=== PATIENT | female | born 1955 | race Hispanic/Latino ===

== ENCOUNTER 2017-10-25 06:55 | Inpatient (IN) | payer OTHER ==
--- OUTSIDE RECORDS SUMMARY | 2017-10-25 06:58 | XMS REPORT | Clinical Summary ---
:1955 Author Organization [facility] Address [address] [place] [address] Care Team Providers Name Role Phone Asked, No Pcp Primary Care Provider Unavailable Allergies Active Allergy Reactions Severity Noted Date Comments No Known Drug Allergies 02/25/2016 Current Medications Prescription Sig. Disp. Refills Start End Date Status Date amLODIPine Take 10 mg by Active (NORVASC) 10 MG mouth daily. tablet mycophenolate Take 500 mg by Active (CELLCEPT) 500 mg mouth 2 (two) tablet times a day. simvastatin Take 20 mg by Active (ZOCOR) 20 MG mouth nightly. tablet tacrolimus Take 1 mg by mouth Active (PROGRAF) 1 MG every morning. capsule tacrolimus Take 2 mg by mouth Active (PROGRAF) 1 MG every evening. capsule gabapentin Take 1 capsule by 270 capsule 10 Active (NEURONTIN) 100 mg mouth 3 times 7 capsule daily clonIDINE Take 1 tablet (0.1 270 tablet 3 12/01/19 Active (CATAPRES) 0.1 MG mg total) by mouth 7 18 tablet 3 (three) times a day. losartan (COZAAR) Take 1 tablet (100 90 tablet 3 Active 100 MG mg total) by mouth 7 tabletIndications: daily. Type 2 diabetes mellitus with chronic kidney disease on chronic dialysis, with long-term current use of insulin, Kidney transplant recipient, Other diabetic neurological complication associated with type 2 diabetes mellitus, Proliferative diabetic retinopathy associated with type 2 diabetes mellitus, macular edema presence unspecified, Essential (primary) hypertension, Obesity, unspecified, Osteopenia, Vitamin D deficiency pen needle, 5 Devices daily. 150 each 11 01/06/20 Active diabetic 31 gauge 7 18 x 5/16" needleIndications: Type 2 diabetes mellitus with chronic kidney disease on chronic dialysis, with long-term current use of insulin, Kidney transplant recipient, Other diabetic neurological complication associated with type 2 diabetes mellitus, Proliferative diabetic retinopathy associated with type 2 diabetes mellitus, macular edema presence unspecified, Essential (primary) hypertension, Obesity, unspecified, Osteopenia, Vitamin D deficiency insulin lispro Inject 8 units 15 mL 5 Active (HumaLOG) 100 with breakfast and 7 unit/mL 12 units with injectionIndicatio lunch and dinner. ns: Type 2 Additional per diabetes mellitus sliding scale. with chronic kidney disease on chronic dialysis, with long-term current use of insulin omeprazole Take 1 capsule (40 90 capsule 3 01/13/20 Active (PriLOSEC) 40 MG mg total) by mouth 7 18 capsule daily. insulin NPH human 28 units AM 3 15 mL 10 Active recomb (HumuLIN N units PM 7 KwikPen) 100 unit/mL (3 mL) predniSONE Take 1 tablet (5 30 tablet 05/27/20 Active (DELTASONE) 5 mg mg total) by mouth 7 18 tablet daily. calcitriol Take 2 capsules 60 capsule 06/13/20 Active (ROCALTROL) 0.25 (0.5 mcg total) by 7 18 MCG capsule mouth daily. ONETOUCH VERIO USE TO TEST 5-6 600 strip Active strip test TIMES A DAY. 8 stripsIndications: Type 2 diabetes mellitus with chronic kidney disease on chronic dialysis, with long-term current use of insulin, Diabetic polyneuropathy associated with type 2 diabetes mellitus, Proliferative diabetic retinopathy associated with type 2 diabetes mellitus, Kidney transplant recipient ONETOUCH DELICA USE TO TEST 6 600 each Active LANCETS 33 gauge TIMES PER DAY 8 miscIndications: Type 2 diabetes mellitus with chronic kidney disease on chronic dialysis, with long-term current use of insulin, Diabetic polyneuropathy associated with type 2 diabetes mellitus, Proliferative diabetic retinopathy associated with type 2 diabetes mellitus, Kidney transplant recipient linagliptin Take 1 tablet (5 30 tablet 6 Active (TRADJENTA) 5 mg mg total) by mouth 8 tablet daily. tacrolimus Take 1 capsule 30 capsule 09/15/19 Active (PROGRAF) 0.5 MG (0.5 mg total) by 8 19 capsule mouth daily. Total Daily Dose: 1.5mg each morning, 2mg each evening alendronate Take 70 mg by 09/14/19 Discontinued (FOSAMAX) 70 MG mouth every 7 18 tablet days. Mondays. Take in the morning with a full glass of water, on an empty stomach, and do not take anything else by mouth or lie down for the next 30 min. clonIDINE Take 0.1 mg by 12/01/19 Discontinued (CATAPRES) 0.1 MG mouth 3 (three) 17 tablet times a day. gabapentin Take 100 mg by 11/17/19 Discontinued (NEURONTIN) 100 MG mouth 3 (three) 17 capsule times a day. insulin NPH Inject 8 Units 01/06/20 Discontinued (HumuLIN-N) 100 under the skin 17 unit/mL injection daily before breakfast. omeprazole Take 40 mg by 01/13/20 Discontinued (PriLOSEC) 40 MG mouth daily. 17 capsule predniSONE Take 5 mg by mouth 05/27/20 Discontinued (DELTASONE) 5 mg daily. 17 tablet insulin NPH Inject 4 Units 01/06/20 Discontinued (HumuLIN-N) 100 under the skin 17 unit/mL injection daily before dinner. calcitriol Take 0.25 mcg by 06/13/20 Discontinued (ROCALTROL) 0.25 mouth daily. 17 MCG capsule losartan (COZAAR) Take 50 mg by 01/06/20 Discontinued 50 MG tablet mouth daily. 17 blood sugar Patient is testing 600 strip 3 08/23/19 Discontinued diagnostic strips 5-6 times a day. 7 18 strip test stripsIndications: Type 2 diabetes mellitus with chronic kidney disease on chronic dialysis, with long-term current use of insulin, Diabetic polyneuropathy associated with type 2 diabetes mellitus, Proliferative diabetic retinopathy associated with type 2 diabetes mellitus, macular edema presence unspecified, Kidney transplant recipient lancets 33 gauge 1 Units 6 (six) 600 each 3 08/23/19 Discontinued miscIndications: times a day. 7 18 Type 2 diabetes mellitus with chronic kidney disease on chronic dialysis, with long-term current use of insulin, Diabetic polyneuropathy associated with type 2 diabetes mellitus, Proliferative diabetic retinopathy associated with type 2 diabetes mellitus, macular edema presence unspecified, Kidney transplant recipient HUMULIN N KWIKPEN Inject 20 units 15 mL 10 02/12/20 Discontinued 100 unit/mL (3 mL) subcutaneously 7 17 once every morning insulin ASPART Take 8 units with 10 pen 6 01/06/20 Discontinued (NovoLOG Flexpen) breakfast and 12 7 17 100 unit/mL units before lunch insulin pen and dinner meals and additional sliding scale as needed pen needle, 5 Devices daily. 150 each 11 01/06/20 Discontinued diabetic 31 gauge 7 17 x 5/16" needle insulin ASPART Take 8 units with 10 pen 6 01/12/20 Discontinued (NovoLOG Flexpen) breakfast and 12 7 17 100 unit/mL units before lunch insulin and dinner meals penIndications: and additional Type 2 diabetes sliding scale as mellitus with needed chronic kidney disease on chronic dialysis, with long-term current use of insulin, Kidney transplant recipient, Other diabetic neurological complication associated with type 2 diabetes mellitus, Proliferative diabetic retinopathy associated with type 2 diabetes mellitus, macular edema presence unspecified, Essential (primary) hypertension, Obesity, unspecified, Osteopenia, Vitamin D deficiency insulin lispro Inject 8 units 15 mL 01/12/20 Discontinued (HumaLOG) 100 with breakfast and 7 17 unit/mL 12 units with injectionIndicatio lunch and dinner. ns: Type 2 Additional per diabetes mellitus sliding scale. with chronic kidney disease on chronic dialysis, with long-term current use of insulin insulin lispro Inject 8 units 15 mL 01/12/20 Discontinued (HumaLOG) 100 with breakfast and 7 17 unit/mL 12 units with injectionIndicatio lunch and dinner. ns: Type 2 Additional per diabetes mellitus sliding scale. with chronic kidney disease on chronic dialysis, with long-term current use of insulin simvastatin Take 1 tablet (20 90 tablet 3 05/10/20 Discontinued (ZOCOR) 20 MG mg total) by mouth 7 17 tablet every evening. amLODIPine Take 1 tablet (10 90 tablet 05/10/20 Discontinued (NORVASC) 10 mg mg total) by mouth 7 17 tablet daily. tacrolimus Take 1 capsule 30 capsule 09/15/19 Discontinued (PROGRAF) 0.5 MG (0.5 mg total) by 8 18 capsule mouth daily. Active Problems Problem Noted Date Abnormal thyroid stimulating hormone (TSH) level 05/10/2017 Type 2 diabetes mellitus with chronic kidney disease on chronic dialysis, with long-term current use of insulin Proliferative diabetic retinopathy associated with type 2 diabetes 08/24/2016 mellitus Essential hypertension 08/24/2016 Mixed hyperlipidemia 08/24/2016 Non morbid obesity due to excess calories 08/24/2016 Osteopenia 08/24/2016 Kidney transplant recipient 08/24/2016 Vitamin D deficiency 08/24/2016 Diarrhea 08/07/2016 Unspecified vitamin D deficiency 04/13/2016 Nonspecific abnormal results of basal metabolism function study 04/13/2016 Obesity due to excess calories without serious comorbidity 04/13/2016 Other and unspecified hyperlipidemia 04/13/2016 Essential (primary) hypertension 04/13/2016 Type II or unspecified type diabetes mellitus with ophthalmic 04/13/2016 manifestations, not stated as uncontrolled(250.50) Diabetic neuropathy associated with type 2 diabetes mellitus 04/13/2016 Encounter for aftercare following kidney transplant 04/13/2016 Secondary diabetes mellitus with renal manifestations, not stated as 2015 uncontrolled, or unspecified(249.40) Encounters Date Type Specialty Care Team Description 10/21/2017 Hospital Encounter Transplant Tre Stark Kidney replaced by MD Sonu transplant 10/06/2017 Orders Only Endocrinology NievesUzma olmos, [place], [place] unspecified location (Primary Dx) 2017 Refill Transplant Maki Siddiqui RN Med Refill 2017 Orders Only Transplant Maki Siddiqui, BO Kidney replaced by transplant (Primary Dx) 2017 Telephone Transplant Jasmyn Angel Advice Only 2017 Orders Only Transplant Maki Siddiqui RN 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; Encounter for therapeutic drug monitoring; Kidney replaced by transplant; 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; Mixed hyperlipidemia; Proteinuria, unspecified type; Tertiary hyperparathyroidism; Vitamin D deficiency; Urinary tract infection without hematuria, site unspecified 2017 Refill Transplant Maki Siddiqui, BO Med Refill 09/14/2017 Orders Only Endocrinology NievesUzma olmos, [place] 09/14/2017 Orders Only Endocrinology NievesUzam olmos, [place] 09/13/2017 Hospital Encounter Transplant Tre Stark Kidney replaced by transplant (Primary Dx); MD Sonu Essential hypertension, benign; BK viremia 09/13/2017 Ancillary Procedure Onelia Bailey Reddy, MD unspecified location 09/13/2017 Office Visit Endocrinology Onelia Bailey Diabetic polyneuropathy associated with type 2 diabetes mellitus (Primary Dx); MD Velasquez Kidney transplant recipient; Proliferative diabetic retinopathy associated with type 2 diabetes mellitus, macular edema presence unspecified, unspecified laterality; Essential (primary) hypertension; Obesity due to excess calories without serious comorbidity, unspecified classification; Osteopenia of spine; Abnormal thyroid stimulating hormone (TSH) level 09/13/2017 Lab Lab Onelia Bailey MD 09/13/2017 Hospital Encounter Transplant Tre Stark Encounter for therapeutic drug monitoring; MD Sonu Urinary tract infection without hematuria, site unspecified; Kidney replaced by transplant 09/07/2017 Telephone Transplant Jasmyn Angel Advice Only 08/23/2017 Refill Endocrinology Onelia Bailey Type 2 diabetes mellitus with chronic kidney disease on chronic dialysis, with long-term current use of insulin; MD Velasquez Diabetic polyneuropathy associated with type 2 diabetes mellitus; Proliferative diabetic retinopathy associated with type 2 diabetes mellitus; Kidney transplant recipient 06/13/2017 Refill Transplant Maki Siddiqui, BO Med Refill 05/27/2017 Refill Transplant Maki Siddiqui, BO Med Refill 05/26/2017 Orders Only Transplant Maki Siddiqui, BO Encounter for therapeutic drug monitoring; Urinary tract infection without hematuria, site unspecified; Kidney replaced by transplant 05/10/2017 Hospital Encounter Transplant Tre Stark Abnormal thyroid stimulating hormone (TSH) level (Primary Dx); MD Sonu Type 2 diabetes mellitus with chronic kidney disease on chronic dialysis, with long-term current use of insulin; Proliferative diabetic retinopathy associated with type 2 diabetes mellitus, macular edema presence unspecified, unspecified laterality; Essential hypertension; Mixed hyperlipidemia; Non morbid obesity due to excess calories; Osteopenia of spine 05/10/2017 Office Visit Endocrinology Onelia Bailey Type 2 diabetes mellitus with chronic kidney disease on chronic dialysis, with long-term current use of insulin (Primary Dx); MD Velasquez Other diabetic neurological complication associated with type 2 diabetes mellitus; Proliferative diabetic retinopathy associated with type 2 diabetes mellitus, macular edema presence unspecified, unspecified laterality; Essential (primary) hypertension; Mixed hyperlipidemia; Non morbid obesity due to excess calories 05/10/2017 Hospital Encounter Transplant Tre Stark Other complication of kidney transplant; MD Sonu Transplanted kidney; Encounter for therapeutic drug monitoring; senior living current use of systemic steroids 05/10/2017 Telephone Transplant Maki Siddiqui RN txp coord change 05/09/2017 Documentation Transplant Gisel Bhagat RN 05/09/2017 Orders Only Transplant Gisel Bhagat, Other complication of kidney transplant; RN Transplanted kidney; Encounter for therapeutic drug monitoring; senior living current use of systemic steroids 05/05/2017 Lab Lab Onelia Bailey Type 2 diabetes mellitus with chronic kidney disease on chronic dialysis, with long-term current use of insulin; MD Velasquez Kidney transplant recipient; Other diabetic neurological complication associated with type 2 diabetes mellitus; Proliferative diabetic retinopathy associated with type 2 diabetes mellitus; Essential (primary) hypertension; Obesity; Osteopenia; Vitamin D deficiency 05/04/2017 Telephone Transplant Jasmyn Angel Advice Only 03/22/2017 Refill Transplant Gisel Bhagat, Med Refill RN 02/11/2017 Orders Only Endocrinology Nieves, Uzma, Type 2 diabetes mellitus with chronic kidney disease on chronic dialysis, with long-term current use of insulin (Primary Dx); [place] Diabetic polyneuropathy associated with type 2 diabetes mellitus; Proliferative diabetic retinopathy associated with type 2 diabetes mellitus, macular edema presence unspecified; Kidney transplant recipient 01/28/2017 Refill Transplant Gisel Bhagat, Med Refill RN 01/25/2017 Documentation Transplant Souleymane Sears Kidney Follow-up MD Janelle ([facility] 7 year TRF ) 01/20/2017 Telephone Transplant Sagrario Lanza RN Labs Only (Critical Lab) 01/20/2017 Telephone Transplant Abimbola John Critical Results [place] 01/20/2017 Documentation Transplant Gisel Bhagat RN 01/13/2017 Documentation Transplant Gisel Bhagat RN 01/12/2017 Refill Transplant Gisel Bhagat, Med Refill RN 01/11/2017 Orders Only Endocrinology Nieves, Uzma, Type 2 diabetes MA mellitus with chronic kidney disease on chronic dialysis, with long-term current use of insulin 01/11/2017 Orders Only Endocrinology Nieves, Uzma, Type 2 diabetes [place] mellitus with chronic kidney disease on chronic dialysis, with long-term current use of insulin 01/11/2017 Orders Only Endocrinology Nieves, Uzma, Type 2 diabetes MA mellitus with chronic kidney disease on chronic dialysis, with long-term current use of insulin (Primary Dx) 01/05/2017 Office Visit Endocrinology Onelia Bailey Type 2 diabetes mellitus with chronic kidney disease on chronic dialysis, with long-term current use of insulin (Primary Dx); MD Velasquez Kidney transplant recipient; Other diabetic neurological complication associated with type 2 diabetes mellitus; Proliferative diabetic retinopathy associated with type 2 diabetes mellitus, macular edema presence unspecified; Essential (primary) hypertension; Obesity, unspecified; Osteopenia; Vitamin D deficiency 12/31/2016 Telephone Transplant Kezia Aparicio, Follow-up RN 12/21/2016 Hospital Encounter Transplant Tre Stark MD 12/21/2016 Hospital Encounter Transplant Kerrie Heller 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; MD Omayra Transplanted kidney; Encounter for therapeutic drug monitoring; Other complication of kidney transplant 12/15/2016 Telephone Transplant Jasmyn Angel Advice Only 12/07/2016 Documentation Transplant Gisel Bhagat, BO 12/06/2016 Orders Only Transplant Gisel Bhagat, senior living current use of systemic steroids; RN Transplanted kidney; Encounter for therapeutic drug monitoring; Other complication of kidney transplant 12/01/2016 Abstract Transplant Gisel Bhagat RN 11/30/2016 Refill Transplant Gisel Bhagat, Luis Refill RN 11/16/2016 Refill Endocrinology Onelia Bailey MD 11/11/2016 Orders Only Endocrinology Onelia Bailey MD 11/09/2016 Hospital Encounter Transplant Esa Sears MD 11/09/2016 Hospital Encounter Transplant Souleymane Sears Type 2 diabetes mellitus with chronic kidney disease on chronic dialysis, with long-term current use of insulin; MD Janelle Complication of transplanted kidney, unspecified complication; Kidney replaced by transplant 11/03/2016 Telephone Transplant Jasmyn Angel Advice Only 11/03/2016 Orders Only Transplant Yady Brumfield Complication of transplanted kidney, unspecified complication (Primary Dx); BO Tobar Kidney replaced by transplant 10/27/2016 Refill Endocrinology Onelia Bailey MD after 10/24/2016 Immunizations Name Dates Previously Given Next Due INFLUENZA QUAD 05/10/2017 Pneumococcal Conjugate 13-Valent 10/14/2015 Family History Medical History Relation Name Comments Diabetes Father Diabetes Sister Relation Name Status Comments Father Sister Social History Tobacco Use Types Packs/Day Years Used Date Never Smoker Smokeless Tobacco: Never Used Sex Assigned at Date Recorded Not on file Last Filed Vital Signs Vital Sign Reading Time Taken Blood Pressure 144/68 09/13/2017 12:23 PM [employer] Pulse 84 09/13/2017 12:23 PM [employer] Temperature 36.6 C (97.9 F) 09/13/2017 12:21 PM [employer] Respiratory Rate 16 09/13/2017 12:23 PM [employer] Oxygen Saturation 98% 09/13/2017 12:23 PM [employer] Inhaled Oxygen Concentration - - Weight 63 kg (138 lb 14.4 oz) 09/13/2017 12:21 PM [employer] Height 156.2 cm (5' 1.5") 09/13/2017 12:21 PM [employer] Body Mass Index 25.82 09/13/2017 12:21 PM [employer] Plan of Treatment Date Type Specialty Care Team Description 11/11/2017 Office Visit Ophthalmology Delmy Johansen MD [address] [facility] [address] [place] [address] [phone] 01/10/2018 Appointment Transplant Esa Sears MD [address] [place], [place] [id number] 01/10/2018 Office Visit Endocrinology Onelia Bailey MD [address] [place] [address] [phone] 01/10/2018 Appointment Transplant Esa Sears MD [address] [facility] [place] [address] [phone] Health Maintenance Due Date Last Done Comments PAP SMEAR 1978 COLONOSCOPY 2007 MAMMOGRAM 06/12/2010 06/12/2008 FOOT EXAM 08/24/2017 08/24/2016, 08/24/2016, 01/07/2016 ZOSTER VACCINE 2017 OPHTHALMOLOGY EXAM 05/10/2018 05/10/2017, 03/24/2016 INFLUENZA VACCINE Completed 05/10/2017 Procedures Procedure Name Priority Date/Time Associated Diagnosis Comments COLOR FUNDUS PHOTOGRAPHY Routine 05/13/2017 12:00 AM - OU - BOTH EYES CDT after 10/24/2016 Results FK506 level (10/21/2017 8:48 AM)Only the most recent of5 resultswithin the time period is included. Component Value Ref Range FK506 level 5.4 ng/mL Comment: Therapeutic range 5-20 ng/mL for 12 hour trough. The range varies depending on the organ transplanted, time after transplantation and co-administered immunosuppressant therapies. Please use clinical judgment to interpret test result. Test performed using [employer] chemiluminescent microparticle immunoassay for Tacrolimus on the [employer] i System. Specimen Performing Laboratory Blood [facility] DEPARTMENT OF PATHOLOGY AND GENOMIC MEDICINE [address] [place] [id number] CBC with platelet and differential (10/21/2017 8:48 AM)Only the most recent of7 resultswithin the time period is included. Component Value Ref Range WBC 4.50 4.50 - 11.00 k/uL RBC 4.02 (L) 4.20 - 5.50 m/uL HGB 11.8 (L) 12.0 - 16.0 g/dL HCT 38.4 37.0 - 47.0 % MCV 95.5 82.0 - 100.0 fL MCH 29.4 27.0 - 34.0 pg MCHC 30.7 (L) 31.0 - 37.0 g/dL RDW - SD 44.5 37.0 - 55.0 fL MPV 10.6 8.8 - 13.2 fL Platelet count 188 150 - 400 k/uL Nucleated RBC 0.00 /100 WBC Neutrophils 80.6 (H) 39.0 - 69.0 % Lymphocytes 8.4 (L) 25.0 - 45.0 % Monocytes 9.8 0.0 - 10.0 % Eosinophils 0.4 0.0 - 5.0 % Basophils 0.4 0.0 - 1.0 % Immature granulocytes 0.4Comment: "Immature granulocytes" 0.0 - 1.0 % (promyelocytes, myelocytes, metamyelocytes) Specimen Performing Laboratory Blood [facility] DEPARTMENT OF PATHOLOGY AND GENOMIC MEDICINE [address] [place] [address] Estimated GFR (10/21/2017 8:41 AM)Only the most recent of6 resultswithin the time period is included. Component Value Ref Range GFR Non Af Amer 42 (A) mL/min/1.73 m2 GFR Af Amer 51 (A) mL/min/1.73 m2 Comment: Chronic kidney disease: <60 mL/min/1.73m2 Kidney failure: <15 mL/min/1.73m2 The estimated GFR is calculated from the IDMS-traceable Modification of Diet in Renal Disease Equation. The accuracy of the calculation is poor when the creatinine is normal. Calculated values >90 mL/min/1.73m2 are not reported. This equation has not been validated in children (<18 years), women, the elderly (>70 years), or ethnic groups other than Caucasians and Americans. Specimen Performing Laboratory Plasma specimen [facility] DEPARTMENT OF PATHOLOGY AND [address] [address] Phosphorus level (10/21/2017 8:41 AM)Only the most recent of6 resultswithin the time period is included. Component Value Ref Range Phosphorus 3.6 2.4 - 4.5 mg/dL Specimen Performing Laboratory Plasma specimen [facility] PATHOLOGY AND [address] [address] Magnesium level (10/21/2017 8:41 AM)Only the most recent of5 resultswithin the time period is included. Component Value Ref Range Magnesium 1.8 1.6 - 2.4 mg/dL Specimen Performing Laboratory Plasma specimen [facility] PATHOLOGY AND [address] [address] Basic metabolic panel (10/21/2017 8:41 AM)Only the most recent of2 resultswithin the time period is included. Component Value Ref Range Sodium 141 135 - 148 mEq/L Potassium 4.6 3.5 - 5.0 mEq/L Chloride 102 98 - 112 mEq/L CO2 28 24 - 31 mEq/L Anion gap 11 7 - 15 mEq/L Comment: Starting from October , anion gap calculation no longer incorporates potassium. Please note the change. BUN 22 8 - 23 mg/dL Creatinine 1.3 (H) 0.5 - 0.9 mg/dL Glucose 141 (H) 65 - 99 mg/dL Calcium 10.1 8.8 - 10.2 mg/dL Specimen Performing Laboratory Plasma specimen [facility] DEPARTMENT PATHOLOGY AND [address] [address] POC glycosylated hemoglobin (Hb A1C) (09/13/2017 10:14 AM) Component Value Ref Range POC Hemoglobin A1C 8.9 % Specimen Performing Laboratory Blood POC glucose (09/13/2017 10:14 AM)Only the most recent of3 resultswithin the time period is included. Component Value Ref Range POC glucose 170 65 - 100 Specimen Performing Laboratory Blood Bone Density (09/13/2017 9:46 AM) Specimen Performing Laboratory [facility] [address] [facility] [place] [address] Narrative [facility] [address] [facility]. [address] [place] [address] Bone Density Report Name: Shanna Mishra Sex: Female Age: 61 Ethnicity: Height: 61.3 in Referring Provider: ONELIA BAILEY Date of : 1955 Weight: 136.2lb Indication: Osteoporosis; history of glucocorticoids Accession number: [id number] Bone Density: Exam date 09/13/2017 Region BMD (g/cm2) T-score Z-score Classification AP Spine(L1-L4) 0.771 -2.5 -1.1 Osteoporosis Femoral Neck(Left) 0.580 -2.4 -1.2 Osteopenia Total Hip(Left) 0.689 -2.1 -1.1 Osteopenia Femoral Neck(Right) 0.579 -2.4 -1.3 Osteopenia Total Hip(Right) 0.673 -2.2 -1.2 Osteopenia Total Hip Mean 0.681 -2.2 -1.2 Osteopenia World Health Organization criteria for BMD impression classify patients as Normal (T-score at or above 1.0), Osteopenia (T-score between 1.0 and 2.5), or Osteoporosis (T-score at or below 2.5). 10-year Fracture Risk: Major Osteoporotic Fracture 9.9% Hip Fracture 1.8% Reported Risk Factors: [place] (), T-score(WHO)=-2.3, BMI=25.5, glucocorticoids FRAX Version 3.08. Fracture probability calculated for an untreated patient. Fracture probability may be lower if the patient has received treatment. Previous Exams: Region Exam Date Age BMD (g/cm2) T-score BMD Change vs. Baseline BMD Change vs. Previous AP Spine(L1-L4) 09/13/2017 61 0.771 -2.5 -11.8%# -3.8%* 08/24/2016 60 0.801 -2.2 -8.3%# -4.1%# 11/05/2014 59 0.836 -1.9 -4.3%# -4.3%# 08/19/2011 55 0.874 -1.6 Total Hip(Left) 09/13/2017 61 0.689 -2.1 -13.8%# -0.6% 08/24/2016 60 0.693 -2.0 -13.3%# -7.3%# 11/05/2014 59 0.747 -1.6 -6.5%# -6.5%# 08/19/2011 55 0.799 -1.2 Total Hip(Right) 09/13/2017 61 0.673 -2.2 -15.3%# -1.2% 08/24/2016 60 0.681 -2.1 -14.2%# -10.2%# 11/05/2014 59 0.759 -1.5 -4.5%# -4.5%# 08/19/2011 55 0.795 -1.2 *Denotes significance at 95% confidence level, LSC for AP Spine=0.022 g/cm2,LSC for Total Hip=0.027 g/cm2 # Denotes dissimilar scan types or analysis methods Impression: The patient has osteoporosis, based on the Total Spine T-score. The patient has an estimated ten-year risk of hip fracture of 1.8% and an estimated ten-year risk of major fracture of 9.9%, based on the WHO FRAX algorithm for a patient not on therapy (NOF thresholds are 20% for a major fracture and 3% for a hip fracture). The patient has risk factors, including: history of glucocorticoid therapy. Monitoring: The BMD for the AP Spine(L1-L4) decreased, changing by -3.8% since the last DXA exam. Discussion: INCREASED RISK OF FRACTURE. BONE DENSITY IS UNDESIRABLY LOW AT ONE OR MORE SKELETAL SITES, CONSISTENT WITH POSTMENOPAUSAL OSTEOPOROSIS. This patient's lowest T-score meets the World Health Organization's (WHO) criteria for osteoporosis at one or more sites (T-score -2.5 or below). In untreated patients, the risk of osteoporotic fracture increases approximately two-fold for each 1.0 SD decrease in T-score.Low bone density is not the only risk factor for fracture; also consider factors such as patient's age, frailty or poor health, risk of falling, risk of injury, previous osteoporotic fracture, family history of osteoporosis, cigarette smoking, low body weight, etc. Not everyone with low bone mineral density has osteoporosis; osteomalacia and other metabolic bone disorders should also be considered. Patients who have osteoporosis should be evaluated for specific diseases and conditions (secondary causes) that may cause or contribute to bone loss. The [place] Association [employer] Clinical Endocrinologists (AACE) and National Osteoporosis Foundation (NOF) recommend pharmacologic intervention for all postmenopausal women whose T-score is in this range. The patient should follow a healthful lifestyle (good nutrition with adequate calcium and vitamin D, and appropriate weight-bearing exercise). Follow-Up: Consider a repeat BMD and Vertebral Fracture Assessment (VFA) exam in 1-2 years or sooner if medically necessary, to reassess this patient's status. Reported by: Geoffrey Salmon MD, LENORA, MACE, FACP, CCD on 09/14/2017 6:33:00 AM. Urinalysis screen and microscopy, with reflex to culture (09/13/2017 9:07 AM) Only the most recent of3 resultswithin the time period is included. Component Value Ref Range Specimen site Clean catch Color, UA Straw Appearance, UA Clear Specific gravity, UA 1.010 1.001 - 1.035 pH, UA 6.0 5.0 - 8.5 Protein, UA Negative Negative Glucose, UA Negative Negative Ketones, UA Negative Negative Bilirubin, UA Negative Negative Blood, UA Small (A) Negative Nitrite, UA Negative Negative Urobilinogen, UA <2.0 <2.0 Leukocyte esterase, UA Negative Negative Epithelial cells, UA <1 /HPF WBC, UA <1 0 - 4 /HPF RBC, UA 1 0 - 2 /HPF Bacteria, UA None seen None seen Yeast, UA None seen Yeast with pseudohyphae, UA None seen Specimen Performing Laboratory Urine [facility] DEPARTMENT OF PATHOLOGY AND GENOMIC MEDICINE [address] [place] [address], [place] [address] Microalbumin, urine, random (09/13/2017 9:07 AM) Component Value Ref Range Total volume, urine No volume mL Urine creatinine concentration 32 mg/dL Urine microalbumin concentration <1.2 mg/dL Urine microalbumin/creatinine ratio SEE COMMENTComment: Unable to 0 - 30 mg/g calculate due to low analyte concentration. Specimen Performing Laboratory Urine [facility] DEPARTMENT OF PATHOLOGY AND GENOMIC MEDICINE [address] [place] [address] Cytomegalovirus by PCR (09/13/2017 9:07 AM)Only the most recent of3 resultswithin the time period is included. Component Value Ref Range Cytomegalovirus by PCR <300 (A) Not-Detected IU/mL Cytomegalovirus by PCR See link below for PDF Lab ReportComment: Specimen Performing Laboratory [facility] DEPARTMENT OF PATHOLOGY [address] [address] BK virus by PCR (09/13/2017 9:07 AM)Only the most recent of3 resultswithin the time period is included. Component Value Ref Range BK virus PCR Not-Detected Not-Detected copies/mL BK virus PCR See link below for PDF Lab ReportComment: Specimen Performing Laboratory [facility] DEPARTMENT OF PATHOLOGY AND GENOMIC MEDICINE [address] [place] [address] Fructosamine (09/13/2017 9:07 AM)Only the most recent of4 resultswithin the time period is included. Component Value Ref Range Fructosamine 473 (H) 170 - 285 umol/L Comment: INTERPRETIVE INFORMATION:Fructosamine Variations in levels of serum proteins (albumin and immunoglobulins) may affect fructosamine results. Performed by [facility], [address], [place] [id number] [email or web address], Ed Montoya MD - Lab. Director Specimen Performing Laboratory [facility] [address] [place] [address] Protein, urine, random (09/13/2017 9:07 AM)Only the most recent of4 resultswithin the time period is included. Component Value Ref Range Protein, urine random 5 mg/dL Specimen Performing Laboratory Urine [facility] DEPARTMENT OF PATHOLOGY AND GENOMIC MEDICINE [address] [place] [address] Creatinine level, urine, random (09/13/2017 9:07 AM)Only the most recent of4 resultswithin the time period is included. Component Value Ref Range Creatinine, urine, random 32 mg/dL Specimen Performing Laboratory Urine [facility] DEPARTMENT OF PATHOLOGY AND [facility] [address] [place] [address] Vitamin D 25 hydroxy level (09/13/2017 9:07 AM)Only the most recent of5 resultswithin the time period is included. Component Value Ref Range Vitamin D, 25-hydroxy 36.0 30.0 - 150.0 ng/mL Comment: This assay reports the sum of 25-hydroxy vitamin D3 and 25-hydroxy vitamin D2. Reference range: 0-17 years: Deficiency: less than 20ng/mL Optimum level: greater than or equal to 20 ng/mL. 18 years and older: Deficiency: less than 20ng/mL Insufficiency: 20-29 ng/mL Optimum Level: 30-80 ng/mL The assay reportable range is 3.4155.9 ng/mL. Levels higher than 150 ng/mL may be associated with toxicity. If toxicity is clinically suspected and the reported result is >155.9 ng/mL,contact lab for alternative methods to obtain a definitivelevel. If separate quantitation of 25-hydroxy vitamin D3 and 25-hydroxy vitamin D2 is needed, please contact lab for alternative methods. Specimen Performing Laboratory Blood [facility] DEPARTMENT OF PATHOLOGY AND [facility] [address] [place] [address] Urine culture (09/13/2017 9:07 AM)Only the most recent of3 resultswithin the time period is included. Component Value Ref Range Urine culture SEE COMMENTComment: Bacteriuria screen negative. Specimen Performing Laboratory Urine [facility] DEPARTMENT OF PATHOLOGY AND [facility] [address] [place] [address] Thyroid stimulating hormone (09/13/2017 9:07 AM)Only the most recent of3 resultswithin the time period is included. Component Value Ref Range TSH 6.88 (H) 0.27 - 4.20 uIU/mL Specimen Performing Laboratory Plasma specimen [facility] DEPARTMENT OF PATHOLOGY AND [facility] [address] [place] [address] T4, free (09/13/2017 9:07 AM)Only the most recent of3 resultswithin the time period is included. Component Value Ref Range T4, free 1.5 0.9 - 1.7 ng/dL Specimen Performing Laboratory Plasma specimen [facility] DEPARTMENT OF PATHOLOGY AND [address] [address] Hemoglobin A1c (09/13/2017 9:07 AM)Only the most recent of5 resultswithin the time period is included. Component Value Ref Range Hemoglobin A1C 9.3 (H) 4.0 - 5.6 % Comment: HbA1c cutoffs for diagnosing diabetes: 4.0% - 5.6%=normal 5.7% - 6.4%=increased risk for diabetes (prediabetes) >=6.5%=diabetes Goals for glycemic control (ADA 2016) < 7.0%Target for non adults with diabetes. More or less stringent targets may be appropriate for individual patients. <7.5% Target for Children and adolescents with type 1 diabetes. Specimen Performing Laboratory [facility] DEPARTMENT OF PATHOLOGY AND GENOMIC MEDICINE [address] [place] [address] Lipid panel (09/13/2017 9:07 AM)Only the most recent of3 resultswithin the time period is included. Component Value Ref Range Cholesterol 120 <200 mg/dL Triglycerides 77 <150 mg/dL HDL cholesterol 54 >40 mg/dL LDL cholesterol 55Comment: Result obtained by direct LDL <100 mg/dL measurement Lipid panel interpretation SeeBelow Comment: Total Cholesterol (mg/dL) <200 Desirable 151-030Iqgcowguno-wixt >=240High Triglycerides (mg/dL) <150 Normal 372-104Fnhqtrxsmb-rgii 200-499High >=500Very high HDL Cholesterol (mg/dL) <40Low (male) <40Low (female) LDL Cholesterol (mg/dL) <100 Optimal 100-129Near or above optimal 591-055Tcilvnrcor-ywwm 160-189High >=190Very high Risk Catergories that modify LDL goals. Risk CatergoriesLDL goal (mg/dL) CHD and CHD risk equivalent<100 (10-year risk >20%) Multiple (2+) risk factors <130 (10-year risk=<20%) 0-1 risk factors <160 (<10-year risk) Defining levels of lipids in metabolic syndrome Triglycerides>=150 mg/dL HDL Cholesterol Men<40 mg/dL Women<40 mg/dL Non-HDL cholesterol is a second target for therapy in persons with high triglycerides (>=200 mg/dL) Specimen Performing Laboratory Plasma specimen [facility] DEPARTMENT OF PATHOLOGY AND [facility] [address] [place] [address] Comprehensive metabolic panel (09/13/2017 9:07 AM)Only the most recent of5 resultswithin the time period is included. Component Value Ref Range Sodium 142 135 - 148 mEq/L Potassium 4.0 3.5 - 5.0 mEq/L Chloride 101 98 - 112 mEq/L CO2 27 24 - 31 mEq/L Anion gap 14 7 - 15 mEq/L Comment: Starting from October , anion gap calculation no longer incorporates potassium. Please note the change. BUN 28 (H) 6 - 20 mg/dL Creatinine 1.3 (H) 0.5 - 0.9 mg/dL Glucose 165 (H) 65 - 99 mg/dL Calcium 10.3 (H) 8.3 - 10.2 mg/dL Protein 7.6 6.3 - 8.3 g/dL Comment: [place] 4.6-7.0 g/dL 1 week 4.4-7.6 g/dL 7 months-1year5.1-7.3 g/dL 1-2 years5.6-7.5 g/dL >3 years6.0-8.0 g/dL 18-150 6.3-8.3 g/dL Albumin 4.5 3.5 - 5.0 g/dL A/G ratio 1.5 0.7 - 3.8 Alkaline phosphatase 67 35 - 104 U/L AST 23 10 - 35 U/L ALT 17 5 - 50 U/L Total bilirubin 0.4 0.0 - 1.2 mg/dL Specimen Performing Laboratory Plasma specimen [facility] DEPARTMENT OF PATHOLOGY AND [facility] [address] [place] [address] Color Fundus Photography - OU - Both Eyes (05/13/2017)Parathyroid hormone (05/10 8:55 AM)Only the most recent of4 resultswithin the time period is included. Component Value Ref Range PTH 70 (H) 15 - 65 pg/mL Specimen Performing Laboratory Blood [facility] DEPARTMENT OF PATHOLOGY AND GENOMIC MEDICINE [address] [place] [address] C-Telopeptide (endocrine sciences) (11/11/2016) Component Value Ref Range C-telopeptide, serum 411 pg/mL Comment: Reference Range: Females Nvkneppzqddeg014 - 738 Postmenopausal 142 - 1351 Effective November 30, 2016 the reference interval for C-Telopeptide, Serum will be changing to: Males 38 - 724 Females Premenopausal Women34 - 635 Postmenopausal Women 34 - 1037 Specimen Performing Laboratory [facility] Narrative Performed at:[address] [place] [address] [place], [place] [id number] Staffing Recruiter: Orlando Brambila MD, Phone:[phone] Intact N-terminal propeptide of Type 1 procollagen (11/11/2016) Component Value Ref Range Propeptide type I collagen 51 ug/L Comment: Premenopausal 19 - 83 Postmenopausal 16 - 96 Specimen Performing Laboratory [facility] Narrative Performed at:[address] [place], [place] [id number] Staffing Recruiter: Alex Rosen MD, Phone:[phone] Osteocalcin, serum (11/11/2016) Component Value Ref Range Osteocalcin 20.3 ng/mL Comment: Pre-menopausal Women4.9- 30.9 Post-menopausal Women 9.4- 47.4 Specimen Performing Laboratory [facility] Narrative Performed at:[address] [place], [place] [id number] Staffing Recruiter: Alex Rosen MD, Phone:[phone] Lipid Panel (11/11/2016) Component Value Ref Range Cholesterol 111 100 - 199 mg/dL Triglycerides 62 0 - 149 mg/dL HDL cholesterol 55 >39 mg/dL VLDL cholesterol michael 12 5 - 40 mg/dL LDL cholesterol calculated 44 0 - 99 mg/dL Specimen Performing Laboratory [facility] Narrative Performed at:[address] [place], [place] [id number] Staffing Recruiter: Ha Dash MD, Phone:[phone] Specimen Status Report (11/11/2016) Component Value Ref Range Specimen Status Report COMMENT Comment: Written Authorization Written Authorization Written Authorization Received. Authorization received from [facility] 11-12-2016 Logged by Sofy Calderon Specimen Performing Laboratory [facility] Narrative Performed at:[address] [place], [place] [id number] Staffing Recruiter: Ha Dash MD, Phone:[phone] Maximo Terrazas LP Default (11/11/2016) Component Value Ref Range Ambig Abbrev LP Default Comment Comment: A hand-written panel/profile was received from your office. In accordance with the [facility] Ambiguous Test Code Policy dated January 2003, we have completed your order by using the closest currently or formerly recognized AMA panel.We have assigned Lipid Panel, Test Code #[id number] to this request. If this is not the testing you wished to receive on this specimen, please contact the [facility] Client Inquiry/Technical Services Department to clarify the test order.We appreciate your business. Specimen Performing Laboratory [facility] Narrative Performed at:[address] [place], [place] [id number] Staffing Recruiter: Ha Dash MD, Phone:[phone] Ambyuli Abbrev CMP14 Default (11/11/2016) Component Value Ref Range Ambig Abbrev [facility]14 Default Comment Comment: A hand-written panel/profile was received from your office. In accordance with the [facility] Ambiguous Test Code Policy dated January 2003, we have completed your order by using the closest currently or formerly recognized AMA panel.We have assigned Comprehensive Metabolic Panel (14), Test Code #098054 to this request.If this is not the testing you wished to receive on this specimen, please contact the [facility] Client Inquiry/Technical Services Department to clarify the test order.We appreciate your business. Specimen Performing Laboratory [facility] Narrative Performed at:[address] [place], [place] [id number] Staffing Recruiter: Ha Dash MD, Phone:[phone] N-telopeptide, cross-linked, urine (11/11/2016)Only the most recent of2 resultswithin the time period is included. Component Value Ref Range NTX Telopeptide, urine 211 Not Estab. nmol BCE Creatinine, urine, random 81.0 Not Estab. mg/dL N-telo/Creat. ratio 29 0 - 89 nM BCE/mM Cr Interpretive guide: Comment Comment: The N-telopeptide and Creatinine are used to calculate the N-telo/Creat.Ratio which is referred to as "NTx". Suggested guidelines for the clinical use of NTx are as follows: 1.Menopausal Women not on Hormone Replacement Therapy (HRT):Women with a baseline NTx value >38 are at significant risk for a decrease in bone mineral density (BMD) after 1 year compared to women on HRT. The probability of a decline in BMD increases with NTx value as follows:(1): Baseline NTxProbability of Decrease in BMD 18- 381.4p= 0.28 38- 512.5p= 0.03 51- 673.8p= 0.0006 67-188 17.3p= 0.0001 2. Menopausal Women Receiving Antiresorptive Therapy: The probability that treatment is effective after three months is increased when the measured NTx value is <or=38 nM BCE/mM HEAD TEACHER, or NTx has decreased >or=30% from baseline.[1] 3. Patients with Paget's Disease of Bone: The probability that treatment is effective after one month is increased when the measured NTx value is within the reference range, or NTx has decreased >or=30% from baseline.[2] 1. Jermaine CH, Stefani NH, Jean-Pierre GS, et al. Am J Med, 102:29-37,1997. (1):M757, 1996. 2. Bone H, Theresa J, et al. J Bone Min Res.11(1):M757,1995 Specimen Performing Laboratory [facility] Narrative Performed at: [place] [id number] Staffing Recruiter: Alex Rosen MD, Phone:[phone] Performed at: [id number] Staffing Recruiter: Ha Dash MD, Phone:[phone] Bone specific alk phosphatase (11/11/2016)Only the most recent of2 resultswithin the time period is included. Component Value Ref Range Tandem-R Ostase 11.0 ug/L Comment: Premenopausal Women: 6.0 - 22.7 Postmenopausal Women:8.1 - 31.6 Specimen Performing Laboratory [facility] Narrative Performed at: [id number] Staffing Recruiter: Alex Rosen MD, Phone:[phone] Vitamin D 1,25 dihydroxy level, serum (11/11/2016) Component Value Ref Range Vit D, 1,25-Dihydroxy 66.5 19.9 - 79.3 pg/mL Specimen Performing Laboratory [facility] Narrative Performed at: - [facility] [address] [place], [place] [id number] Staffing Recruiter: Alex Rosen MD, Phone:[phone] Miscellaneous referral test (11/09/2016 3:12 PM)Only the most recent of4 resultswithin the time period is included. Component Value Ref Range [facility] test name 1,25 Dihydroxy Vitamin DComment: Send to [facility] test result see note (A) Comment: 1,25-Dihydroxyvitamin D, Serum Vrojde850 pg/mL HIGH (Reference [id number]) Laboratory Notes This test was developed and its performance characteristics determined by [facility] in a manner consistent with CLIA requirements. This test has not been cleared or approved by the U.S. Food and Drug Administration. Performing Site [facility] [address] [facility] [address] Specimen Performing Laboratory [facility] [address] [place] [address] Donor specific antibody (11/09/2016 3:12 PM) Component Value Ref Range Donor specific antibody See link below for PDF Lab Report Specimen Performing Laboratory [facility] DEPARTMENT OF PATHOLOGY AND GENOMIC MEDICINE [address] [place] [address] Urinalysis, automated with microscopy (11/09/2016 3:12 PM) Component Value Ref Range Color, UA Straw Appearance, UA Clear Specific gravity, UA 1.012 1.001 - 1.035 pH, UA 6.0 5.0 - 8.5 Protein, UA Negative Negative Glucose, UA 1+ (A) Negative Ketones, UA Negative Negative Bilirubin, UA Negative Negative Blood, UA Negative Negative Nitrite, UA Negative Negative Urobilinogen, UA <2.0 <2.0 Leukocyte esterase, UA Negative Negative Epithelial cells, UA 1 /HPF WBC, UA 1 0 - 4 /HPF RBC, UA 1 0 - 2 /HPF Bacteria, UA None seen None seen Hyaline casts, UA 3 /LPF Yeast, UA None seen Yeast with pseudohyphae, UA None seen Specimen Performing Laboratory Urine [facility] DEPARTMENT OF PATHOLOGY AND GENOMIC MEDICINE [address] [place] [address] after 10/24/2016 Insurance Payer Benefit Plan / Group Subscriber ID Type Phone Address [facility]IC[facility] xxxxxxxxx HMO MEDICAID MEDICAID xxxxxxxxx Medicaid [phone] [place], [place] [phone]
--- OUTSIDE RECORDS SUMMARY | 2017-10-25 06:59 | XMS REPORT ---
:1955 [facility] Address [address] [place], [place] [address]karina Dior [address] [place] [address] Care Team Providers Name Role Phone RUTH ANN PATEL KYRA Unavailable Unavailable Problems This patient has no known problems. Allergies, Adverse Reactions, Alerts This patient has no known allergies or adverse reactions. Medications This patient has no known medications. Results Test Description Test Time Test Comments Text Results Atomic Results Result Comments TISSUE EXAM 2016-11-29 16:45:00 Test Item Value Reference Range Comments LAB AP CPT CODE (BEAKER) (test nqgl=0909) [id number] TACROLIMUS [id number] 09:09:00 Test Item Value Reference Range Comments TACROLIMUS BLOOD (BEAKER) (test zsjr=067) 6.8 ng/mL 10.0-20.0 POCT-GLUCOSE [id number] 07:33:00 Test Item Value Reference Range Comments POC-GLUCOSE METER (BEAKER) 138 mg/dL 70-110 TESTED AT [facility] [address] [facility] (test cgnz=9336) [facility] [address] BASIC METABOLIC [id number] 05:08:00 Test Item Value Reference Range Comments SODIUM (BEAKER) (test 139 meq/L 136-145 cfyq=107) POTASSIUM (BEAKER) (test 4.7 meq/L 3.5-5.1 ewak=247) CHLORIDE (BEAKER) (test 109 meq/L 98-107 aoum=945) CO2 (BEAKER) (test 23 meq/L 22-29 pxlw=362) BLOOD UREA NITROGEN 21 mg/dL 7-21 (BEAKER) (test wyyr=157) CREATININE (BEAKER) (test 1.08 mg/dL 0.57-1.25 nquq=821) GLUCOSE RANDOM (BEAKER) 93 mg/dL 70-105 (test baao=822) CALCIUM (BEAKER) (test 8.8 mg/dL 8.4-10.2 saqt=590) EGFR (BEAKER) (test 52 mL/min/1.73 sq m ESTIMATED GFR IS NOT utwz=2709) ACCURATE CREATININE CLEARANCE IN PREDICTING GLOMERULAR FILTRATION RATE. ESTIMATED GFR IS NOT APPLICABLE FOR DIALYSIS PATIENTS. CBC W/PLT COUNT & AUTO [id number] 04:51:00 Test Item Value Reference Range Comments WHITE BLOOD CELL COUNT (BEAKER) (test yyns=880) 4.1 K/ L 4.0-10.0 RED BLOOD CELL COUNT (BEAKER) (test mria=689) 3.47 M/ L 4.00-5.00 HEMOGLOBIN (BEAKER) (test nwgc=682) 11.0 GM/DL 12.0-15.0 HEMATOCRIT (BEAKER) (test gjli=019) 34.1 % 36.0-45.0 MEAN CORPUSCULAR VOLUME (BEAKER) (test tcja=867) 98.3 fL 82.0-99.0 MEAN CORPUSCULAR HEMOGLOBIN (BEAKER) (test 31.6 pg 27.0-33.0 hwaf=969) MEAN CORPUSCULAR HEMOGLOBIN CONC (BEAKER) (test 32.1 GM/DL 32.0-36.0 svvz=210) RED CELL DISTRIBUTION WIDTH (BEAKER) (test 11.9 % 10.3-14.2 vbbg=832) PLATELET COUNT (BEAKER) (test ikvq=140) 148 K/CU MM 150-430 MEAN PLATELET VOLUME (BEAKER) (test gfmq=750) 8.3 fL 6.5-10.5 NUCLEATED RED BLOOD CELLS (BEAKER) (test 0 /100 WBC 0-0 ziqy=937) NEUTROPHILS RELATIVE PERCENT (BEAKER) (test 77 % ckre=385) LYMPHOCYTES RELATIVE PERCENT (BEAKER) (test 11 % gbca=511) MONOCYTES RELATIVE PERCENT (BEAKER) (test 12 % ciah=800) EOSINOPHILS RELATIVE PERCENT (BEAKER) (test 1 % vvyk=678) BASOPHILS RELATIVE PERCENT (BEAKER) (test 0 % shae=551) NEUTROPHILS ABSOLUTE COUNT (BEAKER) (test 3.17 K/ L 1.80-8.00 gwip=231) LYMPHOCYTES ABSOLUTE COUNT (BEAKER) (test 0.45 K/ L 1.48-4.50 kfaf=581) MONOCYTES ABSOLUTE COUNT (BEAKER) (test 0.50 K/ L 0.00-1.30 onrb=776) EOSINOPHILS ABSOLUTE COUNT (BEAKER) (test 0.02 K/ L 0.00-0.50 cukm=933) BASOPHILS ABSOLUTE COUNT (BEAKER) (test 0.00 K/ L 0.00-0.20 pltl=130) 0.00POCT-GLUCOSE [id number] 01:09:00 Test Item Value Reference Range Comments POC-GLUCOSE METER (BEAKER) 97 mg/dL 70-110 TESTED AT [address] (test qgyi=3460) [facility] [address] POCT-GLUCOSE [id number] 21:30:00 Test Item Value Reference Range Comments POC-GLUCOSE METER (BEAKER) 424 mg/dL 70-110 Notified BO PILLAI/TESTED AT [facility] (test birv=6948) [address] [place] [address] POCT-GLUCOSE [id number] 17:04:00 Test Item Value Reference Range Comments POC-GLUCOSE METER (BEAKER) 198 mg/dL 70-110 TESTED AT [address] (test gjyw=6001) [place] [id number] POCT-GLUCOSE [id number] 12:51:00 Test Item Value Reference Range Comments POC-GLUCOSE METER (BEAKER) 205 mg/dL 70-110 TESTED AT [address] (test flve=5794) [place] [address] TACROLIMUS [id number] 12:35:00 Test Item Value Reference Range Comments TACROLIMUS BLOOD (BEAKER) (test nyyy=446) 5.9 ng/mL 10.0-20.0 POCT-GLUCOSE [id number] 08:32:00 Test Item Value Reference Range Comments POC-GLUCOSE METER (BEAKER) 60 mg/dL 70-110 TESTED AT [address] (test kbsr=0371) [facility] [address] POCT-GLUCOSE [id number] 21:41:00 Test Item Value Reference Range Comments POC-GLUCOSE METER (BEAKER) 202 mg/dL 70-110 TESTED AT [address] (test llfw=4536) [facility] [address] POCT-GLUCOSE [id number] 17:36:00 Test Item Value Reference Range Comments POC-GLUCOSE METER (BEAKER) 191 mg/dL 70-110 TESTED AT [address] (test rsmm=3950) [place] [id number] POCT-GLUCOSE [id number] 11:01:00 Test Item Value Reference Range Comments POC-GLUCOSE METER (BEAKER) 232 mg/dL 70-110 TESTED AT [address] (test jfpc=0798) [place] [address] TACROLIMUS [id number] 10:16:00 Test Item Value Reference Range Comments TACROLIMUS BLOOD (BEAKER) (test qdmi=578) 8.3 ng/mL 10.0-20.0 POCT-GLUCOSE [id number] 08:16:00 Test Item Value Reference Range Comments POC-GLUCOSE METER (BEAKER) 366 mg/dL 70-110 TESTED AT [address] (test dsqm=3433) [place] [address] BASIC METABOLIC [id number] 06:57:00 Test Item Value Reference Range Comments SODIUM (BEAKER) (test 138 meq/L 136-145 yumy=873) POTASSIUM (BEAKER) (test 5.1 meq/L 3.5-5.1 ogqq=556) CHLORIDE (BEAKER) (test 108 meq/L 98-107 trox=567) CO2 (BEAKER) (test 22 meq/L 22-29 uoyt=150) BLOOD UREA NITROGEN 26 mg/dL 7-21 (BEAKER) (test ulxd=509) CREATININE (BEAKER) (test 1.38 mg/dL 0.57-1.25 ivvt=708) GLUCOSE RANDOM (BEAKER) 271 mg/dL 70-105 (test fcja=621) CALCIUM (BEAKER) (test 8.2 mg/dL 8.4-10.2 mhdk=350) EGFR (BEAKER) (test 39 mL/min/1.73 sq m ESTIMATED GFR IS NOT jrox=6961) ACCURATE CREATININE CLEARANCE IN PREDICTING GLOMERULAR FILTRATION RATE. ESTIMATED GFR IS NOT APPLICABLE FOR DIALYSIS PATIENTS. HEMOGLOBIN AND [id number] 06:40:00 Test Item Value Reference Range Comments HEMOGLOBIN (BEAKER) (test khls=619) 11.4 GM/DL 12.0-15.0 HEMATOCRIT (BEAKER) (test bsic=921) 36.1 % 36.0-45.0 POCT-GLUCOSE [id number] 23:30:00 Test Item Value Reference Range Comments POC-GLUCOSE METER (BEAKER) 274 mg/dL 70-110 TESTED AT [facility] [address] (test hqzo=3366) [facility] [address] BASIC METABOLIC [id number] 18:49:00 Test Item Value Reference Range Comments SODIUM (BEAKER) (test 142 meq/L 136-145 ipma=174) POTASSIUM (BEAKER) (test 4.2 meq/L 3.5-5.1 jjwe=637) CHLORIDE (BEAKER) (test 114 meq/L 98-107 zjzw=037) CO2 (BEAKER) (test 20 meq/L 22-29 hbdn=222) BLOOD UREA NITROGEN 28 mg/dL 7-21 (BEAKER) (test mrxz=701) CREATININE (BEAKER) (test 1.36 mg/dL 0.57-1.25 pqin=708) GLUCOSE RANDOM (BEAKER) 177 mg/dL 70-105 (test jkyh=455) CALCIUM (BEAKER) (test 8.3 mg/dL 8.4-10.2 ugkn=032) EGFR (BEAKER) (test 40 mL/min/1.73 sq m ESTIMATED GFR IS NOT wshi=0452) ACCURATE CREATININE CLEARANCE IN PREDICTING GLOMERULAR FILTRATION RATE. ESTIMATED GFR IS NOT APPLICABLE FOR DIALYSIS PATIENTS. HEMOGLOBIN AND [id number] 18:35:00 Test Item Value Reference Range Comments HEMOGLOBIN (BEAKER) (test fuya=705) 11.5 GM/DL 12.0-15.0 HEMATOCRIT (BEAKER) (test wuyx=721) 35.6 % 36.0-45.0 BASIC METABOLIC [id number] 12:08:00 Test Item Value Reference Range Comments SODIUM (BEAKER) (test 140 meq/L 136-145 baiw=429) POTASSIUM (BEAKER) (test 4.4 meq/L 3.5-5.1 xiin=162) CHLORIDE (BEAKER) (test 106 meq/L 98-107 oeew=370) CO2 (BEAKER) (test 23 meq/L 22-29 isgb=958) BLOOD UREA NITROGEN 35 mg/dL 7-21 (BEAKER) (test adzp=141) CREATININE (BEAKER) (test 1.47 mg/dL 0.57-1.25 knlj=111) GLUCOSE RANDOM (BEAKER) 69 mg/dL 70-105 (test tkhk=294) CALCIUM (BEAKER) (test 9.9 mg/dL 8.4-10.2 rkcf=915) EGFR (BEAKER) (test 36 mL/min/1.73 sq m ESTIMATED GFR IS NOT rzdo=7575) ACCURATE CREATININE CLEARANCE IN PREDICTING GLOMERULAR FILTRATION RATE. ESTIMATED GFR IS NOT APPLICABLE FOR DIALYSIS PATIENTS. CBC (HEMOGRAM ONLY)2016-11-23 12:01:00 Test Item Value Reference Range Comments WHITE BLOOD CELL COUNT (BEAKER) (test bwzg=825) 6.0 K/ L 4.0-10.0 RED BLOOD CELL COUNT (BEAKER) (test acpd=572) 3.84 M/ L 4.00-5.00 HEMOGLOBIN (BEAKER) (test yzzj=703) 12.0 GM/DL 12.0-15.0 HEMATOCRIT (BEAKER) (test fucr=054) 37.4 % 36.0-45.0 MEAN CORPUSCULAR VOLUME (BEAKER) (test ucrj=185) 97.3 fL 82.0-99.0 MEAN CORPUSCULAR HEMOGLOBIN (BEAKER) (test 31.3 pg 27.0-33.0 vmxl=856) MEAN CORPUSCULAR HEMOGLOBIN CONC (BEAKER) (test 32.2 GM/DL 32.0-36.0 snus=594) RED CELL DISTRIBUTION WIDTH (BEAKER) (test 11.8 % 10.3-14.2 fbzv=568) PLATELET COUNT (BEAKER) (test zjhh=448) 183 K/CU MM 150-430 MEAN PLATELET VOLUME (BEAKER) (test yyjs=383) 8.3 fL 6.5-10.5 NUCLEATED RED BLOOD CELLS (BEAKER) (test 0 /100 WBC 0-0 ehdk=756) 0.00POTASSIUM-STAT [id number] 11:43:00 Test Item Value Reference Range Comments POTASSIUM (BEAKER) (test utir=795) 4.3 meq/L 3.6-5.5 POCT-GLUCOSE [id number] 11:34:00 Test Item Value Reference Range Comments POC-GLUCOSE METER (BEAKER) 82 mg/dL 70-110 [facility] [facility] (test snqf=9254[facility] [address] URINE [id number] 11:19:00 Test Item Value Reference Range Comments CULTURE (BEAKER) (test 20-29,000 col/mL skin tea vuyz=6106) URINALYSIS W/ [id number] 15:16:00 Test Item Value Reference Range Comments COLOR (BEAKER) (test kjbw=908) Yellow CLARITY (BEAKER) (test lpqr=377) Clear SPECIFIC GRAVITY UA (BEAKER) (test vsvf=461) 1.013 1.001-1.035 PH UA (BEAKER) (test horx=231) 6.0 5.0-8.0 PROTEIN UA (BEAKER) (test hfyu=880) Negative Negative GLUCOSE UA (BEAKER) (test ajux=087) 30 mg/dL Negative KETONES UA (BEAKER) (test nrcd=653) Negative Negative BILIRUBIN UA (BEAKER) (test bons=518) Negative Negative BLOOD UA (BEAKER) (test pdwb=107) Negative Negative NITRITE UA (BEAKER) (test knli=443) Negative Negative LEUKOCYTE ESTERASE UA (BEAKER) (test imkz=991) Trace Negative UROBILINOGEN UA (BEAKER) (test dxjh=831) 0.2 mg/dL 0.2-1.0 RBC UA (BEAKER) (test jufw=338) < /HPF WBC UA (BEAKER) (test pjgu=193) < /HPF SQUAMOUS EPITHELIAL (BEAKER) (test uznc=417) < /HPF SOURCE(BEAKER) (test lgyb=7577) CBC W/PLT COUNT & AUTO [id number] 14:56:00 Test Item Value Reference Range Comments WHITE BLOOD CELL COUNT (BEAKER) (test jnyf=111) 4.2 K/ L 4.0-10.0 RED BLOOD CELL COUNT (BEAKER) (test ngjw=054) 3.68 M/ L 4.00-5.00 HEMOGLOBIN (BEAKER) (test ihbc=166) 11.6 GM/DL 12.0-15.0 HEMATOCRIT (BEAKER) (test upgn=944) 36.4 % 36.0-45.0 MEAN CORPUSCULAR VOLUME (BEAKER) (test edhl=661) 98.8 fL 82.0-99.0 MEAN CORPUSCULAR HEMOGLOBIN (BEAKER) (test 31.4 pg 27.0-33.0 pufz=834) MEAN CORPUSCULAR HEMOGLOBIN CONC (BEAKER) (test 31.8 GM/DL 32.0-36.0 okbp=714) RED CELL DISTRIBUTION WIDTH (BEAKER) (test 12.8 % 10.3-14.2 fiwy=530) PLATELET COUNT (BEAKER) (test xraq=877) 167 K/CU MM 150-430 MEAN PLATELET VOLUME (BEAKER) (test dwpu=807) 8.4 fL 6.5-10.5 NUCLEATED RED BLOOD CELLS (BEAKER) (test 0 /100 WBC 0-0 ymwt=471) NEUTROPHILS RELATIVE PERCENT (BEAKER) (test 87 % kais=150) LYMPHOCYTES RELATIVE PERCENT (BEAKER) (test 8 % mqbv=671) MONOCYTES RELATIVE PERCENT (BEAKER) (test 5 % dapa=709) EOSINOPHILS RELATIVE PERCENT (BEAKER) (test 0 % qjhb=062) BASOPHILS RELATIVE PERCENT (BEAKER) (test 0 % cqth=540) NEUTROPHILS ABSOLUTE COUNT (BEAKER) (test 3.68 K/ L 1.80-8.00 zidl=028) LYMPHOCYTES ABSOLUTE COUNT (BEAKER) (test 0.32 K/ L 1.48-4.50 jcil=031) MONOCYTES ABSOLUTE COUNT (BEAKER) (test 0.20 K/ L 0.00-1.30 zbwc=886) EOSINOPHILS ABSOLUTE COUNT (BEAKER) (test 0.01 K/ L 0.00-0.50 umpe=535) BASOPHILS ABSOLUTE COUNT (BEAKER) (test 0.00 K/ L 0.00-0.20 fzbd=499) 0.00BASI METABOLIC [id number] 14:55:00 Test Item Value Reference Range Comments SODIUM (BEAKER) (test 140 meq/L 136-145 byqw=090) POTASSIUM (BEAKER) (test 5.3 meq/L 3.5-5.1 Specimen slightly ganc=476) hemolyzed CHLORIDE (BEAKER) (test 108 meq/L 98-107 kzvz=929) CO2 (BEAKER) (test 22 meq/L 22-29 afkz=192) BLOOD UREA NITROGEN 28 mg/dL 7-21 (BEAKER) (test toqw=363) CREATININE (BEAKER) (test 1.61 mg/dL 0.57-1.25 Specimen slightly hahw=638) hemolyzed GLUCOSE RANDOM (BEAKER) 209 mg/dL 70-105 (test tpyx=521) CALCIUM (BEAKER) (test 9.3 mg/dL 8.4-10.2 zwsd=142) EGFR (BEAKER) (test 33 mL/min/1.73 sq m ESTIMATED GFR IS NOT clqr=3105) ACCURATE CREATININE CLEARANCE IN PREDICTING GLOMERULAR FILTRATION RATE. ESTIMATED GFR IS NOT APPLICABLE FOR DIALYSIS PATIENTS. [id number] 14:51:00 Test Item Value Reference Range Comments PARTIAL THROMBOPLASTIN TIME (BEAKER) (test 30.7 seconds 22.5-36.0 xify=632) PROTHROMBIN [id number] 14:50:00 Test Item Value Reference Range Comments PROTIME (BEAKER) (test nevx=019) 14.3 seconds 11.7-14.7 INR (BEAKER) (test oexh=596) 1.1 <=5.9 RECOMMENDED COUMADIN/WARFARIN INR THERAPY RANGESSTANDARD DOSE: 2.0 - 3.0 Includes: PROPHYLAXIS forvenous thrombosis, systemic embolization; TREATMENT for venous thrombosis and/or pulmonary embolus.HIGH RISK: Target INR is 2.5-3.5 for patients with mechanical heart valves.
[2017-10-25] MEDS ORDERED: NA CHLORIDE 0.9% 500 ML ONE (08:07)
[2017-10-25] MEDS ORDERED: ACETAMINOPHEN 500 MG TAB ONE ×2 (08:07→18:53)
[2017-10-25 08:21] LABS: Absolute Lymphocytes (CBC) 0.1 K/uL (0.7-4.9); Absolute Monocytes 0.3 K/uL (0.1-1.3); Basophils % 0.2 % (0-1.3); Eosinophils % 0.1 % (0-4.4); Lymphocytes % 1.5 % (15.3-44.8); MCH 29.5 pg (27.0-35.0); MCV 91.8 fL (80-100); MPV 9.1 fL (7.6-11.3); Monocytes % 3.7 % (3.3-12.3)
[2017-10-25 08:32] LABS: Protime INR 1.04
--- NOTE | 2017-10-25 08:53 | RAD REPORT ---
EXAM DESCRIPTION: Neal Single View10/25/2017 7:59 am CLINICAL HISTORY: Fever COMPARISON: October 18, 2017 FINDINGS: The lungs appear clear of acute infiltrate. The heart is normal size IMPRESSION: No acute abnormalities displayed
[2017-10-25] MEDS ORDERED: NA CHLORIDE 0.9% 1,000 ML ONE (09:13)
[2017-10-25] MEDS ORDERED: ASPIRIN 81 MG CHEWABLE TABLET ONE (09:50)
[2017-10-25] MEDS ORDERED: CEFTRIAXONE/SWI 1gm 1 GM/10 ML SYR ONE (09:50)
[2017-10-25 10:30] LABS: Potassium 4.1 mEq/L (3.6-5.0)
[2017-10-25 10:36] LABS: Bilirubin Direct 0.2 mg/dL (0-0.2); Bilirubin Total 0.6 mg/dL (0.3-1.2); CKMB Creatine Kinase MB 1.4 ng/ml (0.3-4.0); Protein, Total 6.6 g/dL (6.0-8.3)
[2017-10-25 10:38] LABS: Urine Bacteria >50 /HPF (<20); Urine Culture Reflex Order NOT NEEDED
[2017-10-25 10:51] LABS: Blood Morphology Comment NOT SEEN (NOT SEEN); Platelet Estimate ADEQ
--- NOTE | 2017-10-25 11:07 | RAD REPORT ---
EXAM DESCRIPTION: CT - Abdomen Pelvis Wo Contrast - 10/25/2017 10:41 am CLINICAL HISTORY: Abdominal pain, vomiting, chills, kidney transplantation COMPARISON: CT study April 2015 TECHNIQUE: Axial [address] imaging of the abdomen and pelvis was performed without IV contrast. No IV contrast was given because of allergy, abnormal renal function, patient refusal or physician re quest. No oral contrast administered. All CT scans are performed using dose optimization technique as appropriate and may include automated exposure control or mA/KV adjustment according to patient size. FINDINGS: No suspicious findings in the lung bases. No pericardial effusion. The liver, spleen and pancreas show no suspicious findings on non-contrast imaging. Granulomatous michael cifications are present. No biliary tree dilatation. The gallbladder is distended but not dilated. Gallstones can be occult on CT imaging. A small atrophic left kidney is present. Dense vascular calcifications are present. No hydronephrosis present and no obstructing or nonobstructing calculi. No new or progressive perinephric stranding. I t cannot be determined if there is any function of the left kidney. No urinary bladder wall thickenin g or mass. No bladder calculi seen. Right kidney has been resected since prior 2015 examination. No mass in the right renal fossa. Right renal transplant kidney is present in the lower quadrant. Compared to 2015, the kidney is enlar ged and edematous. No obstructing or nonobstructing calculi. Small left adrenal mass is unchanged. No right adrenal mass. Isodense renal masses and pyelonephritis cannot be excluded in the absence of IV contrast. No dilated bowel loops or bowel wall thickening. No free air, free fluid or inflammatory stranding. N o hernia, mass or bulky lymphadenopathy. Uterus and ovaries show no suspicious findings. No suspicious bony findings. Vascular calcifications are present. IMPRESSION: Enlarged and edematous right transplant kidney with no obstructing calculus. Right renal findings could reflect immune response rejection or pyelonephritis. No acute finding of the atrophic left kidney with no acute bladder finding. Right kidney has been res ected. Gallbladder is distended but not dilated. Gallstones can be occult. Biliary tree is not dilated. Full assessment is limited is the absence of IV contrast.
--- NOTE | 2017-10-25 11:17 | EDPHYS ---
Physician Documentation [facility] Name: Paola Mishra Age: 62 yrs Sex: Female : 1955 Arrival Date: 10/25/2017 Time: 06:56 Bed 4 Private MD: ED Physician Tyler Guillory HPI: 10/25 07:22 This 62 yrs old Female presents to ER via Ambulatory with complaints of cp Abdominal Pain, Nausea/Vomiting. 07:22 The patient presents with abdominal pain in the lower abdomen. cp 07:22 Onset: The symptoms/episode began/occurred this morning. Associated signs and symptoms: cp Pertinent positives: fever, nausea, vomiting, Pertinent negatives: chest pain, constipation, diarrhea, vomiting blood. The symptoms are described as constant. Severity of pain: in the emergency department the pain is unchanged. Historical: - Allergies: 07:06 NKDA; lk1 - Home Meds: 08:23 omeprazole 40 mg Oral cpDR 1 cap once daily [Active]; promethazine 25 mg Oral tab 1 tab sg every 8 hours [Active]; Prograf 1 mg Oral cap every 12 hours [Active]; Lyrica Oral 1 cap 2 times per day [Active]; losartan 100 mg oral tab 1 tab once daily [Active]; calcitrol 0.25 mcg 2 cap daily [Active]; amlodipine 10 mg tab 1 tab once daily for Hypertension [Active]; mycophenolate mofetil 500 mg oral tab 1 tabs 2 times per day for Prevention of Kidney Transplant Rejection [Active]; clonidine HCl 0.1 mg Oral tab 1 tab 3 times per day for Hypertension [Active]; gabapentin 100 mg oral cap [Active]; losartan 100 mg oral tab 1 tab once daily [Active]; prednisone 5 mg Oral tab 1 tab once daily [Active]; simvastatin 20 mg Oral tab 1 tab once daily [Active]; - PMHx: 07:06 Diabetes - NIDDM; Hyperlipidemia; Hypertension; ESRD; lk1 - PSHx: 07:06 fistula placement; toe amputation; kidney transplant; ; left arm; lk1 - Immunization history:: Adult Immunizations up to date. - Social history:: Smoking status: Patient/guardian denies using tobacco. ROS: 07:30 Constitutional: Positive for fever, poor PO intake. cp 07:30 Eyes: Negative for injury, pain, redness, and discharge. cp 07:30 Cardiovascular: Negative for chest pain, edema. 07:30 Respiratory: Negative for cough, shortness of breath, wheezing. 07:30 Abdomen/GI: Positive for abdominal pain, nausea, vomiting, Negative for diarrhea, constipation, black/tarry stool, rectal bleeding. 07:30 Skin: Negative for cellulitis, rash. 07:30 Neuro: Negative for altered mental status, headache, syncope, near syncope. 07:30 All other systems are negative. Exam: 07:35 Constitutional: The patient appears in no acute distress, alert, awake, cp non-diaphoretic, well developed, well nourished, appears ill 07:35 Head/Face: Normocephalic, atraumatic. cp 07:35 Eyes: Pupils equal round and reactive to light, extra-ocular motions intact. Lids and lashes normal. Conjunctiva and sclera are non-icteric and not injected. Cornea within normal limits. Periorbital areas with no swelling, redness, or edema. ENT: Nares patent. No nasal discharge, no septal abnormalities noted. Tympanic membranes are normal and external auditory canals are clear. Oropharynx with no redness, swelling, or masses, exudates, or evidence of obstruction, uvula midline. Mucous membranes moist. Chest/axilla: Normal chest wall appearance and motion. Nontender with no deformity. No lesions are appreciated. 07:35 Cardiovascular: Rate: tachycardic, Rhythm: regular, Edema: is not appreciated, JVD: is not appreciated. 07:35 Respiratory: the patient does not display signs of respiratory distress, Respirations: normal, no use of accessory muscles, no retractions, no splinting, no tachypnea, labored breathing, is not present, Breath sounds: are clear throughout, no decreased breath sounds, no stridor, no wheezing. 07:35 Abdomen/GI: Inspection: abdomen appears normal, Bowel sounds: active, all quadrants, Palpation: soft, in all quadrants, moderate abdominal tenderness, in the right lower quadrant, rebound tenderness, is not appreciated, voluntary guarding, is elicited in the right lower quadrant, involuntary guarding, is not appreciated. 07:35 Back: ROM is normal. 07:35 Musculoskeletal/extremity: Exam is negative for deformity, edema, injury. 07:35 Skin: cellulitis, is not appreciated, no rash present. 07:35 Neuro: Orientation: to person, place \T\ time. Mentation: lucid, able to follow commands, Cerebellar function: is grossly normal, Motor: moves all fours, strength is normal, Sensation: no obvious gross deficits. 09:18 ECG was reviewed by the Attending Physician. Vital Signs: 07:07 BP 92 / 49; Pulse 102; Resp 15; Temp 99.5(TE); Pulse Ox 98% ; Weight 68.49 kg (R); Pain lk1 5/10; 07:32 BP 94 / 74; Pulse 92; Resp 12; Temp 101.3; Pulse Ox 100% ; Pain 4/10; jl7 08:00 BP 96 / 55; Pulse 83; Resp 16 S; Pulse Ox 100% on R/A; jl7 08:49 BP 111 / 54; Pulse 77; Resp 14 S; Pulse Ox 97% on R/A; jl7 08:57 Temp 100.3; jl7 08:59 Temp 100.3; jl7 09:30 BP 116 / 80; Pulse 84; Resp 16 S; Pulse Ox 99% on R/A; jl7 10:30 BP 111 / 55; Pulse 79; Resp 14 S; Pulse Ox 99% on R/A; jl7 11:05 BP 127 / 57; Pulse 79; Resp 14 S; Pulse Ox 99% on R/A; jl7 12:36 BP 113 / 73; Pulse 89; Resp 18 S; Temp 100.3; Pulse Ox 100% on R/A; Pain 5/10; jl7 MDM: 07:15 Patient medically screened. 09:59 Physician consultation: Jeffrey Payne MD was called at 10:00, was contacted at 10:00, regarding admission, to the telemetry unit. patient's condition. 11:15 Data reviewed: vital signs, nurses notes, lab test result(s), EKG, radiologic studies, cp CT scan, plain films. 11:15 Test interpretation: by ED physician or midlevel provider: ECG, plain radiologic cp studies. Response to treatment: the patient's symptoms have mildly improved after treatment. 10/25 07:21 Order name: Urine Microscopic Only; Complete Time: 10:48 10/25 10:48 Interpretation: Normal except: UWBC >50; URBC 10-20; UBACT >50; SQEPI 5-10. 10/25 07:21 Order name: Urine Culture cp 10/25 07:21 Order name: Amylase, Serum; Complete Time: 10:48 cp 10/25 07:21 Order name: Basic Metabolic Panel; Complete Time: 10:48 cp 10/25 10:49 Interpretation: Normal except: GLUC 249; BUN 36; CRE 1.65; GFR 32. cp 10/25 07:21 Order name: Blood Culture Adult (2) cp 10/25 07:21 Order name: CBC with Diff; Complete Time: 11:03 cp 10/25 08:40 Interpretation: Normal except: RBC 3.60; HGB 10.6; HCT 33.0; HARESH% 94.5; LYM% 1.5; LYMA cp 0.1. 10/25 07:21 Order name: Ckmb; Complete Time: 10:48 cp 10/25 07:21 Order name: CPK; Complete Time: 10:48 cp 10/25 07:21 Order name: Lactate; Complete Time: 08:40 cp 10/25 07:21 Order name: LFT's; Complete Time: 10:48 cp 10/25 07:21 Order name: Lipase; Complete Time: 10:48 cp 10/25 10:49 Interpretation: Abnormal: LIP 17. cp 10/25 07:21 Order name: Procalcitonin; Complete Time: 09:21 cp 10/25 09:21 Interpretation: Procalcitonin 1.67; Reviewed. cp 10/25 07:21 Order name: Protime (+inr); Complete Time: 08:40 cp 10/25 07:21 Order name: Ptt, Activated; Complete Time: 08:40 cp 10/25 07:21 Order name: Cath; Complete Time: 08:59 cp 10/25 07:21 Order name: Troponin (emerg Dept Use Only); Complete Time: 08:56 cp 10/25 08:56 Interpretation: Abnormal: TROPED 0.04. cp 10/25 07:21 Order name: Chest Single View XRAY; Complete Time: 08:56 cp 10/25 08:56 Interpretation: Report review. cp 10/25 07:21 Order name: Accucheck; Complete Time: 09:01 cp 10/25 07:21 Order name: Cardiac monitoring; Complete Time: 08:09 cp 10/25 07:21 Order name: EKG - Nurse/Tech; Complete Time: 09:09 cp 10/25 07:21 Order name: Influenza Screen (a \T\ B); Complete Time: 08:40 cp 10/25 08:53 Order name: Urine Dipstick--Ancillary (enter results) bd 10/25 09:01 Order name: CT Abd/Pelvis - Without Cont: may give oral contrast; Complete Time: 11:12 cp 10/25 09:09 Order name: EKG; Complete Time: 09:09 jl7 10/25 10:51 Order name: Manual Differential; Complete Time: 11:03 EDMS 10/25 11:03 Interpretation: Normal except: SEGS 84; BANDS [F] 14; LYM 1. cp 10/25 07:21 Order name: IV Saline Lock - Large Bore; Complete Time: 08:09 cp 10/25 07:21 Order name: Labs collected and sent; Complete Time: 08:09 cp 10/25 07:21 Order name: O2 Per Protocol; Complete Time: 08:09 cp 10/25 07:21 Order name: O2 Sat Monitoring; Complete Time: 08:09 cp 10/25 07:21 Order name: Urine Dipstick-Ancillary (obtain specimen); Complete Time: 08:48 cp EC:18 Rate is 87 beats/min. Rhythm is regular. NC interval is normal. QRS interval is normal. cp QT interval is normal. No ST changes noted. Interpreted by me. Reviewed by me. Administered Medications: 08:08 Drug: Tylenol 500 mg Route: PO; 7 08:57 Follow up: Temp 100.3; Response: No adverse reaction; Temperature is decreased jl7 08:08 Drug: NS 0.9% 500 ml Route: IV; Rate: bolus; Site: right antecubital; jl7 08:45 Follow up: IV Status: Completed infusion; IV Intake: 500ml 08:57 Drug: NS 0.9% 1000 ml Route: IV; Rate: 100 ml/hr; Site: right antecubital; jl7 10:00 Follow up: IV Status: Completed infusion 09:34 Drug: Rocephin - (cefTRIAXone) 1 grams Route: IVPB; Infused Over: 30 mins; Site: right jl7 antecubital; 09:36 Follow up: Response: No adverse reaction; IV Status: Completed infusion 09:34 Drug: Aspirin Chewable Tablet 324 mg Route: PO; jl7 10:00 Follow up: Response: No adverse reaction jl7 Disposition: 14:37 Co-signature as Attending Physician, Tyler Guillory MD. rn Disposition: 10/25/17 11:16 Hospitalization ordered by Jeffrey Payne for Inpatient Admission. Preliminary diagnosis are Urinary tract infection, site not specified, Bandemia. - Bed requested for Telemetry/MedSurg (Inpatient). - Status is Inpatient Admission. iw - Condition is Stable. - Problem is new. - Symptoms have improved. UTI on Admission? Yes Signatures: Dispatcher [employer] EDMS Stacy Burden Steven, RN RN Luisa Lara RN RN iw Tyler Guillory MD MD rn Page, Corey, PA PA cp Kluge, Leah RN RN lk1 Kalina Lo RN RN jl7
--- NOTE | 2017-10-25 11:17 | ER ---
Nurse's Notes [facility] Name: Paola Mishra Age: 62 yrs Sex: Female : 1955 Arrival Date: 10/25/2017 Time: 06:56 Bed 4 Private MD: Diagnosis: Urinary tract infection, site not specified;Bandemia Presentation: 10/25 07:04 Presenting complaint: Patient states: "Im freezing cold and throwing up and I have pain lk1 in everything on my body. Tylenol isn't helping". Transition of care: patient was not received from another setting of care. Onset of symptoms was October 23, 2017. Care prior to arrival: None. 07:04 Method Of Arrival: Ambulatory lk1 07:04 Acuity: NOHELIA 3 lk1 Triage Assessment: 07:06 General: Appears ill, Behavior is drowsy. General: Behavior is calm, cooperative, lk1 appropriate for age. Pain: Denies pain. GI: Reports nausea, vomiting, Patient currently denies constipation, diarrhea. Historical: - Allergies: 07:06 NKDA; lk1 - Home Meds: 08:23 omeprazole 40 mg Oral cpDR 1 cap once daily [Active]; promethazine 25 mg Oral tab 1 tab sg every 8 hours [Active]; Prograf 1 mg Oral cap every 12 hours [Active]; Lyrica Oral 1 cap 2 times per day [Active]; losartan 100 mg oral tab 1 tab once daily [Active]; calcitrol 0.25 mcg 2 cap daily [Active]; amlodipine 10 mg tab 1 tab once daily for Hypertension [Active]; mycophenolate mofetil 500 mg oral tab 1 tabs 2 times per day for Prevention of Kidney Transplant Rejection [Active]; clonidine HCl 0.1 mg Oral tab 1 tab 3 times per day for Hypertension [Active]; gabapentin 100 mg oral cap [Active]; losartan 100 mg oral tab 1 tab once daily [Active]; prednisone 5 mg Oral tab 1 tab once daily [Active]; simvastatin 20 mg Oral tab 1 tab once daily [Active]; - PMHx: 07:06 Diabetes - NIDDM; Hyperlipidemia; Hypertension; ESRD; lk1 - PSHx: 07:06 fistula placement; toe amputation; kidney transplant; ; left arm; lk1 - Immunization history:: Adult Immunizations up to date. - Social history:: Smoking status: Patient/guardian denies using tobacco. Screenin:32 Abuse screen: Denies threats or abuse. Denies injuries from another. Nutritional jl7 screening: No deficits noted. Tuberculosis screening: No symptoms or risk factors identified. Fall Risk No fall in past 12 months (0 pts). No secondary diagnosis (0 pts). IV access (20 points). Ambulatory Aid- None/Bed Rest/Nurse Assist (0 pts). Gait- Weak (10 pts.). Mental Status- Oriented to own ability (0 pts). Total Alston Fall Scale indicates Low Risk Score (25-44 pts). Fall prevention measures have been instituted. Side Rails Up X 2 Placed close to Nursing Station Frequent Obs/Assesments occuring Family Present and informed to notify staff if they need to leave bedside As available Patient and Family Educated on Fall Prevention Program and strategies. Assessment: 07:32 General: Appears uncomfortable, Behavior is calm, cooperative, appropriate for age. jl7 Pain: Complains of pain in abdomen Pain does not radiate. Pain currently is 4 out of 10 on a pain scale. Quality of pain is described as "It hurts just when I'm nauseous." Pain began 1 day ago. Is intermittent. Neuro: Level of Consciousness is awake, alert, obeys commands, Oriented to person, place, time. Cardiovascular: Heart tones S1 S2 present Patient's skin is warm and dry. Respiratory: Airway is patent Respiratory effort is even, unlabored, shallow, Respiratory pattern is regular, symmetrical, Breath sounds are clear bilaterally. GI: Bowel sounds present X 4 quads. Abd is soft X 4 quads Abd is non tender X 4 quads Reports nausea, vomiting, since yesterday. : No signs and/or symptoms were reported regarding the genitourinary system. EENT: No signs and/or symptoms were reported regarding the EENT system. Derm: Skin is pink, warm \\T\\ dry. Musculoskeletal: No signs and/or symptoms reported regarding the musculoskeletal system. 08:30 Reassessment: No changes from previously documented assessment. Patient and/or family jl7 updated on plan of care and expected duration. Pain level reassessed. Patient is alert, oriented x 3, equal unlabored respirations, skin warm/dry/pink. 12:30 Reassessment: Patient appears in no apparent distress at this time. Patient and/or jl7 family updated on plan of care and expected duration. Pain level reassessed. Patient is alert, oriented x 3, equal unlabored respirations, skin warm/dry/pink. Vital Signs: 07:07 BP 92 / 49; Pulse 102; Resp 15; Temp 99.5(TE); Pulse Ox 98% ; Weight 68.49 kg (R); Pain lk1 5/10; 07:32 BP 94 / 74; Pulse 92; Resp 12; Temp 101.3; Pulse Ox 100% ; Pain 4/10; jl7 08:00 BP 96 / 55; Pulse 83; Resp 16 S; Pulse Ox 100% on R/A; jl7 08:49 BP 111 / 54; Pulse 77; Resp 14 S; Pulse Ox 97% on R/A; jl7 08:57 Temp 100.3; jl7 08:59 Temp 100.3; jl7 09:30 BP 116 / 80; Pulse 84; Resp 16 S; Pulse Ox 99% on R/A; jl7 10:30 BP 111 / 55; Pulse 79; Resp 14 S; Pulse Ox 99% on R/A; jl7 11:05 BP 127 / 57; Pulse 79; Resp 14 S; Pulse Ox 99% on R/A; jl7 12:36 BP 113 / 73; Pulse 89; Resp 18 S; Temp 100.3; Pulse Ox 100% on R/A; Pain 5/10; jl7 ED Course: 06:56 Patient arrived in ED. ds1 07:05 Triage completed. lk1 07:09 Arm band placed on left wrist. lk1 07:10 Kalina Lo RN is Primary Nurse. jl7 07:15 Juan Paz PA is PHCP. cp 07:15 Tyler Guillory MD is Attending Physician. cp 07:32 Patient has correct armband on for positive identification. Placed in gown. Bed in low jl7 position. Call light in reach. Side rails up X 1. nurse monitoring on. Pulse ox on. NIBP on. 07:35 First set of blood cultures drawn by EMT studentTre. jl7 07:55 Inserted saline lock: 20 gauge in right antecubital area, using aseptic technique. jl7 Blood collected. 07:58 X-ray completed. Portable x-ray completed in exam room. Patient tolerated procedure sw well. 07:59 Chest Single View XRAY In Process Unspecified. EDMS 08:10 Initial lab(s) drawn, by me, sent to lab. Second set of blood cultures drawn by me. jl7 Urine collected: straight cath specimen, cloudy. Straight cath inserted, using sterile technique, 16 Fr. Specimen obtained. Returned cloudy urine. Patient tolerated well. 10:38 CT completed. Patient tolerated procedure well. Patient moved to CT via stretcher. Patient moved back from CT. 10:41 CT Abd/Pelvis - Without Cont: may give oral contrast In Process Unspecified. EDMS 11:16 Jeffrey Payne MD is Hospitalizing Provider. cp 12:30 No provider procedures requiring assistance completed. Patient admitted, IV remains in jl7 place. intact, No redness/swelling at site. Administered Medications: 08:08 Drug: Tylenol 500 mg Route: PO; jl7 08:57 Follow up: Temp 100.3; Response: No adverse reaction; Temperature is decreased jl7 08:08 Drug: NS 0.9% 500 ml Route: IV; Rate: bolus; Site: right antecubital; jl7 08:45 Follow up: IV Status: Completed infusion; IV Intake: 500ml jl7 08:57 Drug: NS 0.9% 1000 ml Route: IV; Rate: 100 ml/hr; Site: right antecubital; jl7 10:00 Follow up: IV Status: Completed infusion jl7 09:34 Drug: Rocephin - (cefTRIAXone) 1 grams Route: IVPB; Infused Over: 30 mins; Site: right jl7 antecubital; 09:36 Follow up: Response: No adverse reaction; IV Status: Completed infusion jl7 09:34 Drug: Aspirin Chewable Tablet 324 mg Route: PO; jl7 10:00 Follow up: Response: No adverse reaction jl7 Intake: 08:45 IV: 500ml; Total: 500ml. jl7 Outcome: 11:16 Decision to Hospitalize by Provider. cp 12:30 Admitted to Med/surg accompanied by tech, family with patient, via stretcher, room 232, jl7 with chart, Report called to BO Sosa 12:30 Condition: stable 12:30 Instructed on the need for admit, safety practices, Demonstrated understanding of instructions. 13:12 Patient left the ED. iw Signatures: Dispatcher [employer] EDGeoffrey Real, RN RN jacobo Hogan Lilliana Huynh, Jeanie ds1 Luisa Jett, RN RN Manasa Bender, AVTAR Martinez cp, Netta, RN RN lk1 Kalina Lo RN RN jl7
[2017-10-25 11:20] LABS: Urine Blood 2+ (NEG); Urine Glucose NEGATIVE (NEG); Urine Protein 2+ (NEG); Urine pH 5.5 (5.0-7.0)
[2017-10-25] MEDS: INSULIN -REGULAR HUMAN 50 UNIT/0.5 ML ML SQ SCH ×3 (11:49→20:58)
[2017-10-25] MEDS: NA CHLORIDE 0.9% 1,000 ML IV SCH ×2 (11:49→20:27)
[2017-10-25 15:26] VITALS: BMI 26.7
[2017-10-25] MEDS ORDERED: GABAPENTIN 300 MG CAP PO SCH (16:00)
--- NOTE | 2017-10-25 16:03 | P.HP ---
Certification for Inpatient Patient admitted to: Inpatient With expected LOS: >2 Midnights Patient will require the following post-hospital care: None Practitioner: I am a practitioner with admitting privileges, knowledge of patient current condition, hospital course, and medical plan of care. Services: Services provided to patient in accordance with Admission requirements found in Title 42 Section 412.3 of the Code of Federal Regulations Patient History Date of Service: 10/25/17 Reason for admission: Fever and chills History of Present Illness: This is a 62-year-old female with a history hypertension hyperlipidemia and diabetes chronic kidney disease status post of a kidney transplantation who presents to emergency room because of a fever chills and dysuria for 2 days. She had no prior experience of urine tract infection. She denied is nausea vomiting diarrhea. In the emergency room, CT scan of the abdomen pelvis demonstrated enlarged any edema test the right kidney which is the transplanted kidney, there is no evidence of hydronephrosis of renal stones. Urinalysis shows positive for nitrates and increased white blood cells in the urine consistent with urine tract infection. The patient is admitted hospital for further treatment and urine cultures pending Allergies No Known Drug Allergies Allergy (Unverified 12/24/14 20:45) Unknown NKDA Allergy (Uncoded 12/12/13 17:09) Unknown Home Medications: Amlodipine [Norvasc*] 10 mg PO DAILY 12/12/13 Gabapentin [Neurontin*] 300 mg PO TID 12/12/13 Losartan Potassium [Cozaar*] 2 tab PO DAILY 12/12/13 Mycophenolate Mofetil [Cellcept] 500 mg PO BID 12/12/13 Omeprazole [Prilosec] 40 mg PO DAILY 12/12/13 Prednisone [Prednisone*] 5 mg PO DAILY 12/12/13 Simvastatin [Zocor*] 20 mg PO BEDTIME 12/12/13 Tacrolimus [Prograf] 1 cap PO DAILY 12/12/13 Alendronate Sodium 1 tab PO EVERY 7TH DAY 05/04/16 Calcitrol [Rocaltrol*] 1 cap PO DAILY 05/04/16 Clonidine HCl [Catapres*] 1 tab PO TID 05/04/16 Sitagliptin Phosphate [Januvia] 1 tab PO DAILY 05/04/16 Tacrolimus [Prograf] 2 cap PO BEDTIME 05/04/16 - Past Medical/Surgical History Has patient received pneumonia vaccine in the past: Yes Diabetic: Yes -: Kidney transplant -: chronic venous hypertension with ulceraton -: diabetic ulcer toe -: gerd -: hyperlipidemia -: neuropathy chronic kidney disease -: kidney transplant -: -: Toe Amputation -: Fistula Placement -: Chronic venous hypertension with ulceration - Social History Smoking Status: Never smoker Alcohol use: No CD- Drugs: No Caffeine use: Yes Place of Residence: Home Physical Examination - Vital Signs Temperature: 100.3 F Blood Pressure: 113/73 Pulse: 89 Respirations: 18 Pulse Ox (%): 92 - Physical Exam General: Alert, In no apparent distress HEENT: Atraumatic, PERRLA, Mucous membr. moist/pink, EOMI, Sclerae nonicteric Neck: Supple, 2+ carotid pulse no bruit, No LAD, Without JVD or thyroid abnormality Respiratory: Clear to auscultation bilaterally, Normal air movement Cardiovascular: Regular rate/rhythm, Normal S1 S2 Gastrointestinal: Normal bowel sounds, No tenderness Musculoskeletal: No tenderness Integumentary: No rashes Neurological: Normal gait, Normal speech, Normal strength at 5/5 x4 extr, Normal tone, Normal affect Lymphatics: No axilla or inguinal lymphadenopathy - Studies Laboratory Data (last 24 hrs) 10/25/17 07:55: PT 12.3, INR 1.04, APTT 26.3 10/25/17 07:55: WBC 7.4, Hgb 10.6 L, Hct 33.0 L, Plt Count 176 10/25/17 07:55: Sodium 139, Potassium 4.1, BUN 36 H, Creatinine 1.65 H, Glucose 249 H, Total Bilirubin 0.6, AST 20, ALT 17, Alkaline Phosphatase 64, Amylase 57 , Lipase 17 L Microbiology Data (last 24 hrs): 10/25/17 08:03 Nasopharnyx Influenza Type A Antigen Screen - Final 10/25/17 08:03 Nasopharnyx Influenza Type B Antigen Screen - Final Assessment and Plan - Problems (Diagnosis) (1) Urinary tract infection Current Visit: Yes Status: Acute Qualifiers: Urinary tract infection type: acute pyelonephritis Qualified Code(s): N10 - Acute pyelonephritis (2) Chronic kidney disease, stage 3 Current Visit: Yes Status: Chronic (3) Diabetes Current Visit: Yes Status: Chronic Qualifiers: Diabetes mellitus type: type 2 Diabetes mellitus residential insulin use: with entry level mechanical engineer use Diabetes mellitus complication status: with neurologic complications Diabetes mellitus complication detail: with polyneuropathy Qualified Code(s): E11.42 - Type 2 diabetes mellitus with diabetic polyneuropathy; 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; Z79.4 - halfway ( current) use of insulin; Z79.4 - halfway (current) use of insulin; 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 (4) GERD (gastroesophageal reflux disease) Current Visit: Yes Status: Chronic Qualifiers: Esophagitis presence: without esophagitis Qualified Code(s): K21.9 - Gastro -esophageal reflux disease without esophagitis (5) Hx of kidney transplant Current Visit: Yes Status: Chronic (6) Hyperlipidemia Current Visit: Yes Status: Chronic Qualifiers: Hyperlipidemia type: mixed hyperlipidemia Qualified Code(s): E78.2 - Mixed hyperlipidemia (7) Hypertension Current Visit: Yes Status: Chronic Qualifiers: Hypertension type: essential hypertension Qualified Code(s): I10 - Essential (primary) hypertension (8) Neuropathy Current Visit: Yes Status: Chronic - Plan --continue intravenous fluid replacement --continue intravenous meropenem --urine culture pending --resume home medicine for diabetes and hypertension --consider transfer patient to [facility] where the patient received a renal transplant - Advance Directives Does patient have a Living Will: No Does patient have a Durable POA for Healthcare: No
--- NOTE | 2017-10-25 16:27 | EKG ---
Test Date: 2017-10-25 Test Time: 09:16:15 Program Director/Music Director: CHELI MEASUREMENT RESULTS: Intervals: Rate: 87 [place]: 124 QRSD: 70 QT: 336 QTc: 404 [place]: P: 57 [place]: 124 QRS: 19 T: 58 INTERPRETIVE STATEMENTS: Normal sinus rhythm with sinus arrhythmia Normal ECG Compared to ECG 04/19/2006 10:16:32 Sinus tachycardia no longer present Electronically Signed On 10-25-17 16:24:54 CDT by Kingston Davey
[2017-10-25] MEDS ORDERED: Meropenem 1,000 MG in NA CHLORIDE 0.9% 100 ML IV SCH (17:00)
[2017-10-25] MEDS ORDERED: ACETAMINOPHEN 500 MG TAB PO PRN (18:30)
[2017-10-25] MEDS: cloNIDine HCl 0.1 MG TAB PO SCH (20:23)
[2017-10-25] MEDS: Meropenem 1 GM/100 ML BAG IV SCH (20:24)
[2017-10-25] MEDS ORDERED: CEFTRIAXONE/SWI 1gm 1 GM/10 ML SYR IV SCH (21:00)
[2017-10-25] MEDS ORDERED: ATORVASTATIN 10 MG TAB PO SCH (21:00)
[2017-10-25] MEDS ORDERED: HOME MED 1 EA UNK (Simvastatin [Zocor*] 20 MG) PO SCH (21:00)
[2017-10-25] MEDS ORDERED: TACROLIMUS PO SCH (21:00)
[2017-10-25] MEDS ORDERED: HOME MED 1 EA UNK (Mycophenolate Mofetil [Cellcept] 500 MG) PO SCH (21:00)
[2017-10-25 22:06] VITALS: O2SAT 94
[2017-10-26 05:38] LABS: Absolute Lymphocytes (CBC) 0.3 K/uL (0.7-4.9); Absolute Monocytes 0.6 K/uL (0.1-1.3); Absolute Neutrophil 12.6 K/uL (1.8-8.0); Basophils % 0.2 % (0-1.3); Hematocrit 35.7 % (36.0-45.0); Lymphocytes % 2.4 % (15.3-44.8); MCH 29.3 pg (27.0-35.0); MCV 93.1 fL (80-100); MPV 9.5 fL (7.6-11.3); Monocytes % 4.3 % (3.3-12.3); RBC Red Blood Cell Count 3.83 M/uL (3.86-4.86)
[2017-10-26 06:03] LABS: Albumin 3.4 g/dL (3.2-5.5); Bilirubin Total 0.7 mg/dL (0.3-1.2); Potassium 4.6 mEq/L (3.6-5.0); Protein, Total 5.6 g/dL (6.0-8.3)
[2017-10-26] MEDS ORDERED: PANTOPRAZOLE 40MG TABLET PO SCH (07:30)
[2017-10-26] MEDS ORDERED: CALCITROL 0.25 MCG CAP PO SCH (09:00)
[2017-10-26] MEDS ORDERED: SITAGLIPTIN PHOS 100 MG TAB PO SCH ×2 (09:00)
[2017-10-26] MEDS ORDERED: TACROLIMUS PO SCH (09:00)
[2017-10-26] MEDS ORDERED: HOME MED 1 EA UNK (Omeprazole [Prilosec] 40 MG) PO SCH (09:00)
[2017-10-26] MEDS ORDERED: AMLODIPINE 10 MG TAB PO SCH (09:00)
[2017-10-26] MEDS ORDERED: predniSONE 5 MG TAB PO SCH (09:00)
[2017-10-26] MEDS ORDERED: SITAGLIPTIN PHOSPHATE PO SCH (09:00)
[2017-10-26] MEDS ORDERED: LOSARTAN POTASSIUM 50 MG TABLET PO SCH (09:00)
[2017-10-26] MEDS: cloNIDine HCl 0.1 MG TAB PO SCH ×2 (09:48→14:00)
[2017-10-26] MEDS: INSULIN -REGULAR HUMAN 50 UNIT/0.5 ML ML SQ SCH ×2 (09:49→12:39)
[2017-10-26] MEDS: NA CHLORIDE 0.9% 1,000 ML IV SCH (09:50)
[2017-10-26] MEDS: Meropenem 1 GM/100 ML BAG IV SCH (09:51)
[2017-10-26] MEDS ORDERED: PROMETHAZINE 25 MG TABLET PO PRN (11:00)
--- NOTE | 2017-10-26 15:14 | P.DS ---
Admission Date: 10/25/17 Discharge Date: 10/26/17 Disposition: TRANSFER TO [facility] Discharge Condition: FAIR Reason for Admission: Fever and chills - Problems (1) Urinary tract infection Onset Date: 10/26/17 Current Visit: Yes Status: Acute Qualifiers: Urinary tract infection type: acute pyelonephritis Qualified Code(s): N10 - Acute pyelonephritis (2) Chronic kidney disease, stage 3 Onset Date: 10/26/17 Current Visit: Yes Status: Chronic (3) Diabetes Onset Date: 10/26/17 Current Visit: Yes Status: Chronic Qualifiers: Diabetes mellitus type: type 2 Diabetes mellitus termite treater helper insulin use: with termite treater helper use Diabetes mellitus complication status: with neurologic complications Diabetes mellitus complication detail: with polyneuropathy Qualified Code(s): E11.42 - Type 2 diabetes mellitus with diabetic polyneuropathy; Z79.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; Z79.4 - shelter ( current) use of insulin; Z79.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; Z79.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 (4) GERD (gastroesophageal reflux disease) Onset Date: 10/26/17 Current Visit: Yes Status: Chronic Qualifiers: Esophagitis presence: without esophagitis Qualified Code(s): K21.9 - Gastro -esophageal reflux disease without esophagitis (5) Hx of kidney transplant Current Visit: Yes Status: Chronic (6) Hyperlipidemia Onset Date: 10/26/17 Current Visit: Yes Status: Chronic Qualifiers: Hyperlipidemia type: mixed hyperlipidemia Qualified Code(s): E78.2 - Mixed hyperlipidemia (7) Hypertension Onset Date: 10/26/17 Current Visit: Yes Status: Chronic Qualifiers: Hypertension type: essential hypertension Qualified Code(s): I10 - Essential (primary) hypertension (8) Neuropathy Onset Date: 10/26/17 Current Visit: Yes Status: Chronic Brief History of Present Illness: This is a 62-year-old female with a history hypertension hyperlipidemia and diabetes chronic kidney disease status post of a kidney transplantation who presents to emergency room because of a fever chills and dysuria for 2 days. She had no prior experience of urine tract infection. She denied is nausea vomiting diarrhea. In the emergency room, CT scan of the abdomen pelvis demonstrated enlarged any edema test the right kidney which is the transplanted kidney, there is no evidence of hydronephrosis of renal stones. Urinalysis shows positive for nitrates and increased white blood cells in the urine consistent with urine tract infection. The patient is admitted hospital for further treatment and urine cultures pending Hospital Course: The patient was admitted hospital for acute pyelonephritis to the right kidney which is Tyshawn in the transplanted. She was treated with intravenous antibiotics meropenem 1 g q.12 hr based on renal function. The patient feel much better today clinically. She had no more chills. Her renal function has been stable; her urine culture shows Gram-negative rods and the final results are pending. The patient is being and transferred to the [facility] for further management and quality Care with renal transplant team I the [facility] in [place] Vital Signs/Physical Exam: Temp Pulse Resp BP Pulse Ox 97.8 F 76 18 115/57 L 96 10/26/17 12:00 10/26/17 12:00 10/26/17 12:00 10/26/17 12:00 10/26/17 12:00 General: Alert, In no apparent distress HEENT: Atraumatic, PERRLA, EOMI Neck: Supple, JVD not distended Respiratory: Clear to auscultation bilaterally, Normal air movement Cardiovascular: Regular rate/rhythm, Normal S1 S2 Gastrointestinal: Normal bowel sounds, No tenderness Musculoskeletal: No tenderness Integumentary: No rashes Neurological: Normal speech, Normal tone, Normal affect Lymphatics: No axilla or inguinal lymphadenopathy Laboratory Data at Discharge: WBC 13.6 K/uL (4.3-10.9) H D 10/26/17 05:09 Hgb 11.2 g/dL (12.0-15.0) L 10/26/17 05:09 Hct 35.7 % (36.0-45.0) L 10/26/17 05:09 Plt Count 154 K/uL (152-406) 10/26/17 05:09 PT 12.3 SECONDS (9.5-12.5) 10/25/17 07:55 INR 1.04 10/25/17 07:55 APTT 26.3 SECONDS (24.3-36.9) 10/25/17 07:55 Sodium 139 mEq/L (135-145) 10/26/17 05:09 Potassium 4.6 mEq/L (3.6-5.0) 10/26/17 05:09 BUN 33 mg/dL (6-20) H 10/26/17 05:09 Creatinine 1.80 mg/dL (0.44-1.00) H 10/26/17 05:09 Glucose 182 mg/dL (65-120) H 10/26/17 05:09 Total Bilirubin 0.7 mg/dL (0.3-1.2) 10/26/17 05:09 AST 21 IU/L (10-42) 10/26/17 05:09 ALT 16 IU/L (10-60) 10/26/17 05:09 Alkaline Phosphatase 54 IU/L (42-121) 10/26/17 05:09 Amylase 57 U/L (28-100) 10/25/17 07:55 Lipase 17 U/L (22-51) L 10/25/17 07:55 Home Medications: Amlodipine [Norvasc*] 10 mg PO DAILY 12/12/13 Losartan Potassium [Cozaar*] 2 tab PO DAILY 12/12/13 Mycophenolate Mofetil [Cellcept] 500 mg PO BID 12/12/13 Omeprazole [Prilosec] 40 mg PO DAILY 12/12/13 Prednisone [Prednisone*] 5 mg PO DAILY 12/12/13 Simvastatin [Zocor*] 20 mg PO BEDTIME 12/12/13 Tacrolimus [Prograf] 1 cap PO DAILY 12/12/13 Alendronate Sodium 1 tab PO EVERY 7TH DAY 05/04/16 Calcitrol [Rocaltrol*] 2 cap PO DAILY 05/04/16 Clonidine HCl [Catapres*] 1 tab PO TID 05/04/16 Tacrolimus [Prograf] 2 cap PO BEDTIME 05/04/16 Pregabalin [Lyrica] 100 mg PO BID 10/25/17 Promethazine HCl 25 mg PO Q8HP 10/25/17 Gabapentin [Neurontin*] 100 mg PO TID 10/26/17 Insulin -Regular Human [Novolin -R*] See Protocol SQ ACHS ml 10/26/17 Pharmacy Consult 1 ea XX DAILYPRN PRN each 10/26/17 Sitagliptin Phosphate [Januvia*] 50 mg PO DAILY tab 10/26/17 Activity: Ad amirah Time spent managing pt's care (in minutes): 36
[2017-10-26 17:21] VITALS: BP 151/72; TEMP 97.4
[2017-10-26] MEDS ORDERED: PREGABALIN 50 MG CAP PO SCH (21:00)
[2017-11-01] MEDS ORDERED: ALENDRONATE 70 MG TAB PO SCH (09:00)
== END 2017-10-26 17:59 | disposition short-term general hospital (02) | DRG 690 ==
LOC: ER 06:55 → ERHOLD 11:29 → 2ND 12:35
PROVIDERS: ADMIT Internal Medicine Hematology & Oncology; ATTEND Internal Medicine Hematology & Oncology
DX: N10 Acute pyelonephritis (principal); Z94.0 Kidney transplant status; I12.9 Hypertensive chronic kidney disease with stage 1 through stage 4 chronic kidney disease, or unspecified chronic kidney disease; E11.22 Type 2 diabetes mellitus with diabetic chronic kidney disease; N18.3 Chronic kidney disease, stage 3 (moderate); K21.9 Gastro-esophageal reflux disease without esophagitis; E78.2 Mixed hyperlipidemia; E11.40 Type 2 diabetes mellitus with diabetic neuropathy, unspecified
CPT/HCPCS: 36415; 51702; 71045; 74176; 80048; 80053; 80076; 81003; 81015; 82150; 82550; 82553; 82962; 83605; 83690; 84145; 84484; 85025; 85610; 85730; 87040; 87077; 87086; 87088; 87186; 87804; 93005; 96361; 96374; 99285; J0696; J2185; J7030; J7512

== ENCOUNTER 2018-03-23 10:49 | Emergency (ER) | payer OTHER ==
--- OUTSIDE RECORDS SUMMARY | 2018-03-23 10:53 | XMS REPORT | Clinical Summary ---
:1955 Author Organization [facility] Address [address] [place] [id number] Care Team Providers Name Role Phone Ambrosio Raymundo DO Primary Care Provider Allergies Active Allergy Reactions Severity Noted Date Comments No Known Drug Allergies 02/25/2016 Current Medications Prescription Sig. Disp. Refills Start Date End Date Status amLODIPine Take 10 mg by Active (NORVASC) 10 MG mouth daily. tablet mycophenolate Take 500 mg by Active (CELLCEPT) 500 mg mouth 2 (two) tablet times a day. gabapentin Take 1 capsule 270 capsule 10 11/17/2016 Active (NEURONTIN) 100 mg by mouth 3 capsule times daily losartan (COZAAR) Take 1 tablet 90 tablet 3 01/05/2017 Active 100 MG (100 mg total) tabletIndications: by mouth daily. Type 2 diabetes mellitus with chronic kidney disease on chronic dialysis, with long-term current use of insulin, Kidney transplant recipient, Other diabetic neurological complication associated with type 2 diabetes mellitus, Proliferative diabetic retinopathy associated with type 2 diabetes mellitus, macular edema presence unspecified, Essential (primary) hypertension, Obesity, unspecified, Osteopenia, Vitamin D deficiency ONETOUCH DELICA USE TO TEST 6 600 each 3 08/23/2017 Active LANCETS 33 gauge TIMES PER DAY miscIndications: Type 2 diabetes mellitus with chronic kidney disease on chronic dialysis, with long-term current use of insulin, Diabetic polyneuropathy associated with type 2 diabetes mellitus, Proliferative diabetic retinopathy associated with type 2 diabetes mellitus, Kidney transplant recipient linagliptin Take 1 tablet 30 tablet 6 09/13/2017 Active (TRADJENTA) 5 mg (5 mg total) by tablet mouth daily. tacrolimus Take 0.5 mg by Active (PROGRAF) 0.5 MG mouth daily. capsule 11/15/17: Current Dose 1.5 / 2 predniSONE Take 1 tablet 30 tablet 60 10/29/2017 10/30/19 Active (DELTASONE) 5 mg (5 mg total) by 23 tablet mouth daily. timolol (TIMOPTIC) Administer 1 10 mL 3 11/22/2017 11/23/19 Active 0.5 % ophthalmic drop into the 19 solution left eye 2 (two) times a day. latanoprost Administer 1 2.5 mL 3 11/22/2017 11/23/19 Active (XALATAN) 0.005 % drop to both 19 ophthalmic eyes nightly. solutionIndications : Primary open angle glaucoma of both eyes, indeterminate stage tacrolimus *BRAND NAME 90 capsule 11 12/29/2017 12/30/19 Active (PROGRAF) 1 MG MEDICALLY 19 capsule NECESSARY* Pt to take (1) cap by mouth each morning, and (2) cap by mouth each evening. Current Dose - 1.5 / 2 blood sugar DX: E11.65 USE 600 strip 3 01/10/2018 Active diagnostic strips TO TEST 5-6 (Shipping EasyUCH VERIO) TIMES A DAY. strip test stripsIndications: Type 2 diabetes mellitus with chronic kidney disease on chronic dialysis, with long-term current use of insulin, Diabetic polyneuropathy associated with type 2 diabetes mellitus, Kidney transplant recipient mirtazapine Take 1 tablet 30 tablet 5 01/10/2018 07/09/20 Active (REMERON) 15 MG (15 mg total) 18 tablet by mouth nightly for 180 days. clonIDINE Take 1 tablet 90 tablet 11 01/20/2018 01/21/20 Active (CATAPRES) 0.1 MG (0.1 mg total) 19 tablet by mouth 3 (three) times a day. omeprazole Take 1 capsule 30 capsule 11 01/20/2018 01/21/20 Active (PriLOSEC) 40 MG (40 mg total) 19 capsule by mouth daily. simvastatin (ZOCOR) Take 1 tablet 30 tablet 11 01/20/2018 01/21/20 Active 20 MG tablet (20 mg total) 19 by mouth nightly. oxybutynin Take 1 tablet 60 tablet 11 02/07/2018 02/08/20 Active (DITROPAN) 5 MG (5 mg total) by 19 tablet mouth 2 (two) times a day. denosumab (PROLIA) Inject 60 mg Active 60 mg/mL syringe under the skin syringe every 6 (six) months. gauze bandage 4 X 4 4x4 gauze for 50 each 0 03/20/2018 Active " sponge wound care non-adherent WOUND DRESSING 25 each 0 03/20/2018 Active bandage 3 X 3 " bandage bismuth Apply to wound 14 each 0 03/20/2018 Active tribrom-petrolatum, as instructed wh (XEROFORM PETROLATUM DRESSING) 1 X 8 " bandage alendronate Take 70 mg by 09/14/19 Discontinued (FOSAMAX) 70 MG mouth every 7 18 tablet days. Mondays. Take in the morning with a full glass of water, on an empty stomach, and do not take anything else by mouth or lie down for the next 30 min. simvastatin (ZOCOR) Take 20 mg by 01/21/20 Discontinued 20 MG tablet mouth nightly. 18 predniSONE Take 5 mg by 05/27/20 Discontinued (DELTASONE) 5 mg mouth daily. 17 tablet calcitriol Take 0.25 mcg 06/13/20 Discontinued (ROCALTROL) 0.25 by mouth daily. 17 MCG capsule tacrolimus Take 0.5 mg by 10/27/19 Discontinued (PROGRAF) 1 MG mouth every 18 capsule morning. tacrolimus Take 1 mg by 12/28/19 Discontinued (PROGRAF) 1 MG mouth every 18 capsule evening. 11/15/17: Current Dose - 1.5 / 2 blood sugar Patient is 600 strip 3 08/24/2016 08/23/19 Discontinued diagnostic strips testing 5-6 18 strip test times a day. stripsIndications: Type 2 diabetes mellitus with chronic kidney disease on chronic dialysis, with long-term current use of insulin, Diabetic polyneuropathy associated with type 2 diabetes mellitus, Proliferative diabetic retinopathy associated with type 2 diabetes mellitus, macular edema presence unspecified, Kidney transplant recipient lancets 33 gauge 1 Units 6 (six) 600 each 3 08/24/2016 08/23/19 Discontinued miscIndications: times a day. 18 Type 2 diabetes mellitus with chronic kidney disease on chronic dialysis, with long-term current use of insulin, Diabetic polyneuropathy associated with type 2 diabetes mellitus, Proliferative diabetic retinopathy associated with type 2 diabetes mellitus, macular edema presence unspecified, Kidney transplant recipient clonIDINE Take 1 tablet 270 tablet 3 11/30/2016 12/01/19 Discontinued (CATAPRES) 0.1 MG (0.1 mg total) 18 tablet by mouth 3 (three) times a day. pen needle, 5 Devices 150 each 11 01/05/2017 01/06/20 diabetic 31 gauge x daily. 18 12/14" needleIndications: Type 2 diabetes mellitus with chronic kidney disease on chronic dialysis, with long-term current use of insulin, Kidney transplant recipient, Other diabetic neurological complication associated with type 2 diabetes mellitus, Proliferative diabetic retinopathy associated with type 2 diabetes mellitus, macular edema presence unspecified, Essential (primary) hypertension, Obesity, unspecified, Osteopenia, Vitamin D deficiency insulin lispro Inject 8 units 15 mL 5 01/11/2017 10/30/19 Discontinued (HumaLOG) 100 with breakfast 18 unit/mL and 12 units injectionIndication with lunch and s: Type 2 diabetes dinner. mellitus with Additional per chronic kidney sliding scale. disease on chronic dialysis, with long-term current use of insulin omeprazole Take 1 capsule 90 capsule 3 01/12/2017 01/13/20 Discontinued (PriLOSEC) 40 MG (40 mg total) 18 capsule by mouth daily. simvastatin (ZOCOR) Take 1 tablet 90 tablet 3 01/28/2017 05/10/20 Discontinued 20 MG tablet (20 mg total) 17 by mouth every evening. insulin NPH human 28 units AM 3 15 mL 10 02/11/2017 10/30/19 Discontinued recomb (HumuLIN N units PM 18 KwikPen) 100 unit/mL (3 mL) amLODIPine Take 1 tablet 90 tablet 3 03/22/2017 05/10/20 Discontinued (NORVASC) 10 mg (10 mg total) 17 tablet by mouth daily. predniSONE Take 1 tablet 30 tablet 11 05/27/2017 10/30/19 Discontinued (DELTASONE) 5 mg (5 mg total) by 18 tablet mouth daily. calcitriol Take 2 capsules 60 capsule 11 06/13/2017 02/08/20 Discontinued (ROCALTROL) 0.25 (0.5 mcg total) 18 MCG capsule by mouth daily. ONETOUCH VERIO USE TO TEST 5-6 600 strip 3 08/23/2017 01/11/20 Discontinued strip test TIMES A DAY. 18 stripsIndications: Type 2 diabetes mellitus with chronic kidney disease on chronic dialysis, with long-term current use of insulin, Diabetic polyneuropathy associated with type 2 diabetes mellitus, Proliferative diabetic retinopathy associated with type 2 diabetes mellitus, Kidney transplant recipient tacrolimus Take 1 capsule 30 capsule 2017 09/15/19 Discontinued (PROGRAF) 0.5 MG (0.5 mg total) 18 capsule by mouth daily. tacrolimus Take 1 capsule 30 capsule 2017 10/27/19 Discontinued (PROGRAF) 0.5 MG (0.5 mg total) 18 capsule by mouth daily. Total Daily Dose: 1.5mg each morning, 2mg each evening cholecalciferol, Take 2,000 11/17/19 Discontinued vitamin D3, Units by mouth 18 (VITAMIN D3) 1,000 daily. unit tablet promethazine Take 25 mg by 11/17/19 Discontinued (PHENERGAN) 25 MG mouth every 6 18 tablet (six) hours as needed for nausea or vomiting. amoxicillin-pot Take 1 tablet 28 tablet 0 10/29/2017 10/30/19 Discontinued clavulanate by mouth 2 18 (AUGMENTIN) 875-125 (two) times a mg per tablet day for 14 days. Lactobacillus Take 1 tablet 90 tablet 0 10/29/2017 10/30/19 Discontinued acidoph-L.bulgar by mouth 3 18 (FLORANEX) 1 (three) times a million cell tablet day for 30 days. Lactobacillus Take 1 tablet 10/29/2017 11/17/19 Discontinued acidoph-L.bulgar by mouth 3 18 (FLORANEX) 1 (three) times a million cell tablet day. amoxicillin-pot Take 1 tablet 28 tablet 0 10/29/2017 11/13/19 clavulanate by mouth 2 18 (AUGMENTIN) 875-125 (two) times a mg per tablet day for 14 days. insulin lispro Inject 4 Units 10 mL 10/29/2017 11/29/19 (HumaLOG) 100 under the skin 18 unit/mL injection 3 (three) times a day with meals for 30 days. insulin NPH Inject 24 Units 10 mL 10/30/2017 10/30/19 Discontinued (HumuLIN-N) 100 under the skin 18 unit/mL injection daily before breakfast for 30 days. insulin NPH Inject 20 Units 10 mL 12 10/30/2017 10/30/19 Discontinued (HumuLIN-N) 100 under the skin 18 unit/mL injection daily before breakfast for 30 days. insulin NPH Inject 24 Units 10 mL 12 10/30/2017 11/30/19 (HumuLIN-N) 100 under the skin 18 unit/mL injection daily before breakfast for 30 days. latanoprost Administer 1 2.5 mL 3 11/11/2017 11/23/19 Discontinued (XALATAN) 0.005 % drop to both 18 ophthalmic eyes nightly. solutionIndications : Primary open angle glaucoma of both eyes, indeterminate stage tacrolimus Pt is to take 90 capsule 11 12/27/2017 12/30/19 Discontinued (PROGRAF) 1 MG ONE capsule by 18 capsule mouth each morning, and TWO capsules by mouth each evening. Current Dose - 1.5 / 2 ciprofloxacin HCl Take 1 tablet 10 tablet 0 12/31/2017 01/06/20 (CIPRO) 500 MG (500 mg total) 18 tablet by mouth 2 (two) times a day for 5 days. keTOROlac (ACULAR Administer 1 12/31/2017 01/31/20 LS) 0.4 % drop to both 18 ophthalmic solution eyes 2 (two) times a day as needed (irritation) for up to 30 days. sod phos di, mono-K Take 1 tablet 21 tablet 0 12/31/2017 01/08/20 phos mono (PHOSPHA by mouth 3 18 250 NEUTRAL) 250 mg (three) times a tablet per tablet day for 7 days. blood sugar USE TO TEST 5-6 600 strip 3 01/10/2018 01/11/20 Discontinued diagnostic strips TIMES A DAY. 18 (ONETOUCH VERIO) strip test stripsIndications: Type 2 diabetes mellitus with chronic kidney disease on chronic dialysis, with long-term current use of insulin, Diabetic polyneuropathy associated with type 2 diabetes mellitus, Kidney transplant recipient acetaminophen-codei Take 1-2 15 tablet 0 02/23/2018 02/27/20 ne (TYLENOL WITH tablets by 18 CODEINE #3) 300-30 mouth every 6 mg per tablet (six) hours as needed for moderate pain for up to 3 days. HYDROcodone-acetami Take 2 tablets 40 tablet 0 02/23/2018 03/05/20 nophen (NORCO) by mouth every 18 10-325 mg per 4 (four) hours tablet as needed for moderate pain for up to 10 days. Max Daily Amount: 12 tablets cephalexin (KEFLEX) Take 1 capsule 28 capsule 0 03/09/2018 03/16/20 500 MG capsule (500 mg total) 18 by mouth 4 (four) times a day for 7 days. sodium chloride Irrigate with 1000 mL 0 03/20/2018 03/20/20 0.9% for IRRIGATION 1,000 mL as 18 (NS) 0.9 % directed once irrigation for 1 dose. 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 10/27/2017 Steroid-induced osteoporosis 10/27/2017 Pyelonephritis 10/26/2017 Abnormal thyroid stimulating hormone (TSH) level 05/10/2017 Proliferative diabetic retinopathy associated with type 2 diabetes 08/24/2016 mellitus Essential hypertension 08/24/2016 Mixed hyperlipidemia 08/24/2016 Non morbid obesity due to excess calories 08/24/2016 Osteopenia 08/24/2016 Kidney transplant recipient 08/24/2016 Vitamin D deficiency 08/24/2016 Diarrhea 08/07/2016 Vitamin D deficiency 04/13/2016 Nonspecific abnormal results of basal metabolism function study 04/13/2016 Obesity due to excess calories without serious comorbidity 04/13/2016 Essential (primary) hypertension 04/13/2016 Diabetic neuropathy associated with type 2 diabetes mellitus 04/13/2016 Encounter for aftercare following kidney transplant 04/13/2016 Neovascular glaucoma of left eye, severe stage 04/13/2016 Encounters Date Type Specialty Care Team Description 03/20/2018 Office Visit Orthopedic Surgery Jackson Buckner MD fracture of tuberosity of left calcaneus, initial encounter (Primary Dx) 03/20/2018 Orders Only Orthopedic Surgery Jackson Castro closed displaced Cornelio, [place] fracture of tuberosity of left calcaneus, initial encounter (Primary Dx) 03/16/2018 Office Visit Orthopedic Jackson Muller MD fracture of tuberosity of left calcaneus, initial encounter (Primary Dx) 03/16/2018 Orders Only Orthopedic Surgery Jackson Castro closed displaced Cornelio, [place] fracture of tuberosity of left calcaneus, initial encounter (Primary Dx) 03/15/2018 Orders Only Transplant Siddiqui, Kidney replaced by transplant ( Primary Dx); BO Gambino Urinary tract infection without hematuria, site unspecified; Proteinuria, unspecified type; BK viremia; Cytomegalovirus infection, unspecified cytomegaloviral infection type 03/09/2018 Office Visit Orthopedic Surgery Jackson Buckner closed elmer Schultz MD fracture of tuberosity of left calcaneus, initial encounter (Primary Dx) 02/26/2018 Telephone Anesthesiology Neo Randhawa MD 02/25/2018 Telephone Anesthesiology Leslie Cornejo FNP-C 02/24/2018 Orders Only Orthopedic Surgery Burguete, Jackson closed displaced Cornelio, [place] fracture of tuberosity of left calcaneus, initial encounter (Primary Dx) 02/23/2018 Hospital Encounter General Surgery Jackson Buckner closed displaced Fidencio Schultz MD fracture of tuberosity of left calcaneus, initial encounter (Primary Dx) 02/23/2018 Hospital Encounter Radiology Semaj Buckner of traumatic radha Schultz MD 02/23/2018 Office Visit Orthopedic Surgery Jackson Buckner closed displaced Fidencio Schultz MD fracture of tuberosity of left calcaneus, initial encounter (Primary Dx) 02/23/2018 Ancillary Orders Radiology Semaj Buckner of traumatic radha Schultz MD 02/23/2018 Anesthesia Event General Surgery Brijesh Rivers MD 02/23/2018 Procedure Pass General Surgery 02/23/2018 Surgery General Surgery [place], LEFT CALCANEUS ORIF Fidencio Schultz MD 02/23/2018 Orders Only Orthopedic Surgery Jackson Castro closed displaced Cronelio, [place] fracture of tuberosity of left calcaneus, initial encounter (Primary Dx) 02/23/2018 Documentation Orthopedic Surgery Fidencio Buckner MD 02/23/2018 Ancillary Orders Transplant Abdellatif, Weight loss, unintentional; Souleymane Luis MD Immunosuppressed status; Kidney replaced by transplant 02/23/2018 Orders Only Radiology Kevin Bañuelos 02/22/2018 Emergency Emergency Medicine Whaley, Closed nondisplaced fracture of left calcaneus, unspecified portion of calcaneus, initial encounter (Primary Dx); - Krystian Achilles tendon tear, left, initial encounter; 02/23/2018 DO Jake Kidney transplant recipient 02/17/2018 Telephone Transplant Siddiqui, Clinic Follow Up BO Gamibno 02/07/2018 Hospital Encounter Transplant Esa Sears MD 02/07/2018 Hospital Encounter Radiology [place], Breast cancer screening , high risk patient; Souleymane Luis MD Breast screening 02/07/2018 Hospital Encounter Transplant Abdellatif, Other cytomegaloviral diseases; Souleymane Luis MD BK viremia; Kidney replaced by transplant; Diarrhea, unspecified type; Immunosuppressed status; Urinary tract infection without hematuria, site unspecified; Cytomegalovirus infection, unspecified cytomegaloviral infection type 02/07/2018 Refill Transplant Siddiqui, Med Refill BO Gambino 02/06/2018 Orders Only Transplant Siddiqui, Breast cancer screening, high risk patient (Primary Dx); BO Gambino Breast screening 02/06/2018 Telephone Transplant Abhijeetel, Dx Code Issue KAHLIL Schneider 01/20/2018 Refill Transplant Siddiqui, Med Refill BO Gambino 01/18/2018 Telephone Transplant Siddiqui, Wt loss BO Gambino 01/18/2018 Orders Only Transplant Siddiqui, Weight loss, unintentional ( Primary Dx); BO Gambino Immunosuppressed status; Kidney replaced by transplant 01/10/2018 Hospital Encounter Transplant Esa Sears MD 01/10/2018 Office Visit Endocrinology Onelia Bailey 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 (Primary Dx); MD Velasquez Kidney transplant recipient; Diabetic polyneuropathy associated with type 2 diabetes mellitus; Proliferative diabetic retinopathy associated with type 2 diabetes mellitus, macular edema presence unspecified, unspecified laterality; Essential hypertension; Mixed hyperlipidemia; Obesity due to excess calories without serious comorbidity, unspecified classification 01/10/2018 Hospital Encounter Transplant Onelia Bailey MD 01/10/2018 Hospital Encounter Transplant Abdellatif, 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; Souleymane Luis MD Encounter for therapeutic drug monitoring; Onelia Bailey Kidney replaced by transplant; MD Velasquez USP current use of systemic steroids; Mixed hyperlipidemia; Proteinuria, unspecified type; Tertiary hyperparathyroidism; Vitamin D deficiency; Urinary tract infection without hematuria, site unspecified 01/04/2018 Telephone Transplant Jasmyn Angel Advice Only 12/29/2017 Emergency Transplant Morris Powell Dehydration (Primary Dx); Iram Squires MD Anemia, unspecified type; 12/31/2017 Ana Laura Awad, Diarrhea, unspecified type; Abdominal pain, acute, generalized; Diarrhea of infectious origin; Chronic hypertension; Dyslipidemia; Type 2 diabetes mellitus with other specified complication, without long-term current use of insulin; Nausea; Metabolic acidosis; Acute renal failure, unspecified acute renal failure type; Colitis 12/29/2017 Telephone Transplant Siddiqui, Diarrhea BO Gambino 12/29/2017 Orders Only Transplant Siddiqui, Diarrhea, unspecified type ( Primary Dx); BO Gambino Immunosuppressed status; Kidney replaced by transplant; Urinary tract infection without hematuria, site unspecified; Cytomegalovirus infection, unspecified cytomegaloviral infection type 12/29/2017 Refill Transplant Artur, Med Refill BO Gambino 12/28/2017 Telephone Transplant Darius, Rx Clarification KAHLIL Schneider 12/27/2017 Office Visit Ophthalmology Delmy Johansen Neovascular glaucoma of left eye, severe stage (Primary Dx); MD Janelle Primary open angle glaucoma of right eye, moderate stage; Pseudophakia 12/27/2017 Refill Transplant Artur, Med Refill BO Gambino 11/25/2017 Telephone Transplant Siddiqui, Lab Results Review BO Gambino 11/22/2017 Office Visit Ophthalmology Nikky Byrne Neovascular glaucoma of left eye, severe stage (Primary Dx); MD Pablo Primary open angle glaucoma of both eyes, indeterminate stage 11/22/2017 Hospital Encounter Transplant Stark, Kidney replaced by transplant; Tre Ascencio, Transplant rejection; Urinary tract infection without hematuria, site unspecified 11/21/2017 Telephone Ophthalmology Delmy Johansen MD 11/17/2017 Orders Only Transplant Siddiqui, Other cytomegaloviral diseases ( Primary Dx); BO Gambino BK viremia; Kidney replaced by transplant 11/16/2017 Orders Only Transplant Siddiqui, Kidney replaced by transplant ( Primary Dx); 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; Urinary tract infection without hematuria, site unspecified 11/15/2017 Clinical Support Ophthalmology May, Testing Only [place] 11/15/2017 Clinical Support Ophthalmology May, Testing Only [place] 11/15/2017 Hospital Encounter Transplant Stark, Vitamin D deficiency ( Primary Dx); Tre Ascencio, Nonspecific abnormal results of basal metabolism function study; Obesity due to excess calories without serious comorbidity, unspecified classification; Onelia Bailey Essential (primary) hypertension; MD Velasquez Diabetic polyneuropathy associated with type 2 diabetes mellitus; Encounter for aftercare following kidney transplant; Diarrhea due to malabsorption 11/15/2017 Nurse Only Neurology Onelia Bailey Osteopenia of spine MD Velasquez (Primary Dx) 11/15/2017 Hospital Encounter Transplant [place], Type 2 diabetes mellitus with chronic kidney disease on chronic dialysis, with long-term current use of insulin; Tre Ascencio, Kidney replaced by transplant; Vitamin D deficiency; Nonspecific abnormal results of basal metabolism function study; Obesity due to excess calories without serious comorbidity, unspecified classification; Essential (primary) hypertension; Diabetic polyneuropathy associated with type 2 diabetes mellitus 11/15/2017 Orders Only Endocrinology Onelia Bailey MD 11/15/2017 Orders Only Endocrinology Mcdermott, Jerri, [place] 11/15/2017 Orders Only Endocrinology Mcdermott, Jerri, [place] 11/15/2017 Orders Only Endocrinology Mcdermott, Jerri, [place] 11/15/2017 Orders Only Endocrinology Mcdermott, Jerri, [place] 11/15/2017 Orders Only Endocrinology Mcdermott, Jerri, [place] 11/15/2017 Telephone Transplant Jasmyn Angel Advice Only 11/15/2017 Orders Only Transplant Siddiqui, Transplant rejection BO Gambino (Primary Dx) 11/15/2017 Orders Only Transplant Maki Siddiqui RN 11/11/2017 Office Visit Ophthalmology Delmy Johansen Type 2 diabetes mellitus with diabetic macular edema of both eyes resolved after treatment, with long-term current use of insulin (Primary Dx); MD Janelle Primary open angle glaucoma of both eyes, indeterminate stage 11/10/2017 Telephone Transplant Jasmyn Angel Advice Only 11/02/2017 Telephone Transplant Artur, [facility] F/U Call BO Gambino 10/31/2017 Telephone Transplant Edison F/u appt questions KAHLIL Huerta 10/29/2017 Patient Outreach Meri Olmos RN 10/27/2017 Telephone Transplant Artur, Lab Results Review BO Gambino 10/26/2017 Hospital Encounter Transplant Ana Laura Awad, Urinary tract infection without hematuria, site unspecified (Primary Dx); - Vitamin D deficiency; 10/29/2017 Kidney transplant recipient; 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; Type 2 diabetes mellitus with chronic kidney disease on chronic dialysis, with long-term current use of insulin 10/21/2017 Hospital Encounter Transplant [place], Kidney replaced by josef Higginbotham MD 10/06/2017 Orders Only Endocrinology Ezequiel, Ragini, Uzma, [place] unspecified location (Primary Dx) 2017 Refill Transplant Artur, Med Refill BO Gambino 2017 Orders Only Transplant Siddiqui, Kidney replaced by BO Gambinoclaims analyst (Primary Dx) 2017 Telephone Transplant Jasmyn Angel Advice Only 2017 Orders Only Transplant Siddiqui, 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; BO Gambino Encounter for therapeutic drug monitoring; Kidney replaced by transplant; USP current use of systemic steroids; Mixed hyperlipidemia; Proteinuria, unspecified type; Tertiary hyperparathyroidism; Vitamin D deficiency; Urinary tract infection without hematuria, site unspecified 2017 Refill Transplant Artur, Med Marcy Gambino RN 09/14/2017 Orders Only Endocrinology Uzma Nieves, KAHLIL 09/14/2017 Orders Only Endocrinology Uzma Nieves, KAHLIL 09/13/2017 Hospital Encounter Transplant [place], Kidney replaced by transplant (Primary Dx); Tre Ascencio, Essential hypertension, benign; BK viremia 09/13/2017 Ancillary [...] Onelia Bailey MD 09/13/2017 Hospital Encounter Transplant [place], Encounter for therapeutic drug monitoring; Tre Ascencio, Urinary tract infection without hematuria, site unspecified; [...] mellitus; Kidney transplant recipient 06/13/2017 Refill Transplant Artur, Med Refkeshia Gambino RN 05/27/2017 Refill Transplant Siddiqui, Med Refill BO Gambino 05/26/2017 Orders Only Transplant Siddiqui, Encounter for therapeutic drug monitoring; BO Gambino Urinary tract infection without hematuria, site unspecified; Kidney replaced by transplant 05/10/2017 Hospital Encounter Transplant [place], Abnormal thyroid stimulating hormone (TSH) level (Primary Dx); Tre Ascencio, Type 2 diabetes mellitus with chronic kidney [...] to excess calories 05/10/2017 Hospital Encounter Transplant [place], Other complication of kidney transplant; Tre Ascencio, Transplanted kidney; Encounter for therapeutic drug monitoring; 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 05/10/2017 Telephone Transplant reyes Siddiquip coord change BO Gambino 05/09/2017 Documentation Transplant Gisel Bhagat RN 05/09/2017 Orders Only Transplant [place], Other complication of kidney transplant; BO Batres Transplanted kidney; Encounter for therapeutic drug monitoring; USP current use of systemic steroids 05/05/2017 Lab Lab Jairnils Onelia Type 2 diabetes mellitus with chronic kidney disease on chronic dialysis, with long-term current use of insulin; MD Velasquez Kidney transplant recipient; Other diabetic neurological complication associated with type 2 diabetes mellitus; Proliferative diabetic retinopathy associated with type 2 diabetes mellitus; Essential (primary) hypertension; Obesity; Osteopenia; Vitamin D deficiency 05/04/2017 Telephone Transplant Jasmyn Angel Advice Only 03/22/2017 Refill Transplant Luis Bhagat RN after 03/22/2017 Immunizations Name Dates Previously Given Next Due INFLUENZA QUAD 05/10/2017 Pneumococcal Conjugate 13-Valent 10/14/2015 Family History Medical History Relation Name Comments Diabetes Father Diabetes Sister Relation Name Status Comments Father Sister Social History Tobacco Use Types Packs/Day Years Used Date Never Smoker Smokeless Tobacco: Never Used Alcohol Use Drinks/Week oz/Week Comments No Sex Assigned at Date Recorded Not on file Last Filed Vital Signs Vital Sign Reading Time Taken Blood Pressure 133/63 02/23/2018 8:20 PM CDT Pulse 81 02/23/2018 8:20 PM CDT Temperature 36.9 C (98.5 F) 02/23/2018 8:20 PM CDT Respiratory Rate 16 02/23/2018 8:20 PM CDT Oxygen Saturation 99% 02/23/2018 8:20 PM CDT Inhaled Oxygen Concentration - - Weight 58.1 kg (128 lb) 02/23/2018 2:33 PM CDT Height 157.5 cm (5' 2") 02/23/2018 2:33 PM CDT Body Mass Index 23.41 02/23/2018 2:33 PM CDT Plan of Treatment Date Type Specialty Care Team Description 04/13/2018 Office Visit [place] [id number] [place] [address] [phone] 05/09/2018 Appointment Transplant Kerrie Heller MD [address] [facility] [address] [place] [address] [phone] 05/09/2018 Office Visit Endocrinology Onelia Bailey MD [address] [place] [address] 05/09/2018 Appointment Kerrie Guevara MD [address] [facility] [address] [place] [address] [phone] Health Maintenance Due Date Last Done Comments CERVICAL CANCER SCREENING 1978 SHINGRIX VACCINE (#1) 2007 ZOSTER VACCINE 2017 INFLUENZA VACCINE 03/01/2018 05/10/2017 DIABETIC FOOT EXAM 01/10/2019 01/10/2018, 01/10/2018, 08/24/2016, Additional history exists DIABETIC RETINAL EYE EXAM 12/31/2019 12/30/2017, 12/27/2017, 11/22/2017, Additional history exists BREAST CANCER SCREENING 02/08/2020 02/07/2018, 06/12/2008 COLON CANCER SCREENING 08/08/2026 08/08/2016 Implants Implanted Type Area Cloth Framer Device Expiration Model / Identifier Date Serial / Lot Becky Screw 6.5mm X 40mm X 16mm - [id number] IMPLANT Left: [employer] 07/12/2112 [id number] / Implanted: Qty: 1 on 02/23/2018 by Fidencio Buckner MD DEVICES Heel / LOT NA Becky Screw 6.5mm X 45mm X 16mm - [id number] [id number] IMPLANT Left: [employer] 07/12/2112 [id number] / Implanted: Qty: 1 on 02/23/2018 by Fidencio Buckner MD DEVICES Heel / LOT NA Procedures Procedure Name Priority Date/Time Associated Comments Diagnosis OR FL < 1 HOUR Routine 02/23/2018 6:33 PM Hx of traumatic fx Results for this CDT procedure are in the results section. POC GLUCOSE Routine 02/23/2018 6:17 PM Results for this CDT procedure are in the results section. ANESTHESIA Routine 02/23/2018 5:18 PM PERIPHERAL BLOCK CDT Procedure Note - Roma Moran MD - 02/23/2018 5:18 PM CDT Peripheral Block Performed by: ROMA MORAN Authorized by: ROMA MORAN Patient Location: Pre-op Start Time: 02/23/2018 4:30 PM End Time: 02/23/2018 5:00 PM Staff: Anesthesiologist: ROMA MORAN Performed by: Anesthesiologist Preprocedure: patient identified, IV checked, site and side verified, risks and benefits discussed, procedure verified, surgical consent complete, patient position confirmed, monitors and equipment checked, pre-op evaluation complete and site marked Time Out Performed: 02/23/2018 4:30 PM Peripheral Nerve Block: Patient Position: Right lateral decubitus Prep: ChloraPrep Monitoring: Blood pressure monitoring, continuous pulse oximetry, heart rate and CO2 Block Type: Popliteal and saphenous Laterality: Left Injection Technique: Catheter insertion Procedures: ultrasound guided Ultrasound documentation: Images saved on hard disk Local Infiltration (See MAR for details): Ropivacaine Loss of Twitch: 50 mA Needle: Needle Type: Pajunk Needle Gauge: 22 G Needle Length: 10 cm Assessment: Injection Assessment: Visualized needle/local anesthetic surrounding nerve , visualized pertinent vascular structures and nerves, needle tip visualized at all times during injection of medication, intermittent aspiration during local anesthetic administration and no symptoms of intraneural/intravenous injection Paresthesia Pain: None Heart Rate Change: No Slow Fractionated Injection: Yes Block outcome: No apparent complications, patient tolerated procedure well and patient comfortable HC COMPLETE BLD COUNT STAT 02/23/2018 4:30 Results for W/AUTO DIFF PM CDT this procedure are in the results section. ESTIMATED GFR STAT 02/23/2018 4:30 Results for PM CDT this procedure are in the results section. BASIC METABOLIC PANEL STAT 02/23/2018 4:30 Results for PM CDT this procedure are in the results section. XR CHEST 1 VW PORTABLE STAT 02/23/2018 12:20 Results for AM CDT this procedure are in the results section. XR CALCANEUS 2+ VW LEFT STAT 02/22/2018 10:59 Results for PM CDT this procedure are in the results section. XR ANKLE 3+ VW LEFT STAT 02/22/2018 10:59 Results for PM CDT this procedure are in the results section. XR FOOT 3+ VW LEFT STAT 02/22/2018 10:58 Results for PM CDT this procedure are in the results section. MAMMO SCREENING W CAD Routine 02/07/2018 11:11 Breast cancer Results for BILATERAL AM CDT screening, high risk this procedure patient are in the Breast screening results section. ESTIMATED GFR STAT 02/07/2018 10:06 Results for AM CDT this procedure are in the results section. CREATININE LEVEL, STAT 02/07/2018 10:06 Diarrhea, unspecified Results for URINE, RANDOM AM CDT type this procedure Immunosuppressed are in the status results Kidney replaced by section. transplant Urinary tract infection without hematuria, site unspecified Cytomegalovirus infection, unspecified cytomegaloviral infection type URINALYSIS SCREEN AND STAT 02/07/2018 10:06 Diarrhea, unspecified Results for MICROSCOPY, WITH REFLEX AM CDT type this procedure TO CULTURE Immunosuppressed are in the status results Kidney replaced by section. transplant Urinary tract infection without hematuria, site unspecified Cytomegalovirus infection, unspecified cytomegaloviral infection type PROTEIN, URINE, RANDOM STAT 02/07/2018 10:06 Diarrhea, unspecified Results for AM CDT type this procedure Immunosuppressed are in the status results Kidney replaced by section. transplant Urinary tract infection without hematuria, site unspecified Cytomegalovirus infection, unspecified cytomegaloviral infection type PHOSPHORUS LEVEL STAT 02/07/2018 10:06 Diarrhea, unspecified Results for AM CDT type this procedure Immunosuppressed are in the status results Kidney replaced by section. transplant Urinary tract infection without hematuria, site unspecified Cytomegalovirus infection, unspecified cytomegaloviral infection type MAGNESIUM LEVEL STAT 02/07/2018 10:06 Diarrhea, unspecified Results for AM CDT type this procedure Immunosuppressed are in the status results Kidney replaced by section. transplant Urinary tract infection without hematuria, site unspecified Cytomegalovirus infection, unspecified cytomegaloviral infection type COMPREHENSIVE METABOLIC STAT 02/07/2018 10:06 Diarrhea, unspecified Results for PANEL AM CDT type this procedure Immunosuppressed are in the status results Kidney replaced by section. transplant Urinary tract infection without hematuria, site unspecified Cytomegalovirus infection, unspecified cytomegaloviral infection type HC COMPLETE BLD COUNT STAT 02/07/2018 10:06 Diarrhea, unspecified Results for W/AUTO DIFF AM CDT type this procedure Immunosuppressed are in the status results Kidney replaced by section. 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 GRAM STAIN STAT 02/07/2018 10:06 Results for AM CDT this procedure are in the results section. URINE CULTURE STAT 02/07/2018 10:06 Results for AM CDT this procedure are in the results section. POC GLUCOSE Routine 01/10/2018 1:33 Uncontrolled type 2 Results for PM CDT diabetes mellitus with this procedure nephropathy are in the results section. DONOR SPECIFIC ANTIBODY Routine 01/10/2018 9:03 Results for AM CDT this procedure are in the results section. FRUCTOSAMINE Routine 01/10/2018 9:03 Results for AM CDT this procedure are in the results section. ESTIMATED GFR Routine 01/10/2018 9:03 Results for AM CDT this procedure are in the results section. 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 Kidney replaced by transplant USP current use of systemic steroids Mixed hyperlipidemia Proteinuria, unspecified type Tertiary hyperparathyroidism Vitamin D deficiency Urinary tract infection without hematuria, site unspecified URINE CULTURE Routine 01/10/2018 9:03 Results for AM CDT this procedure are in the results section. POC GLUCOSE Routine 12/31/2017 7:32 Results for AM CDT this procedure are in the results section. HC COMPLETE BLD COUNT Routine 12/31/2017 6:30 Results for W/AUTO DIFF AM CDT this procedure are in the results section. FK506 LEVEL Routine 12/31/2017 6:00 Results for AM CDT this procedure are in the results section. ESTIMATED GFR Routine 12/31/2017 4:00 Results for AM CDT this procedure are in the results section. MAGNESIUM LEVEL Routine 12/31/2017 4:00 Results for AM CDT this procedure are in the results section. BASIC METABOLIC PANEL Routine 12/31/2017 4:00 Results for AM CDT this procedure are in the results section. PHOSPHORUS LEVEL Routine 12/31/2017 4:00 Results for AM CDT this procedure are in the results section. POC GLUCOSE Routine 12/30/2017 9:20 Results for PM CDT this procedure are in the results section. POC GLUCOSE Routine 12/30/2017 5:54 Results for PM CDT this procedure are in the results section. POC GLUCOSE Routine 12/30/2017 11:48 Results for AM CDT this procedure are in the results section. FK506 LEVEL Routine 12/30/2017 8:30 Results for AM CDT this procedure are in the results section. HC COMPLETE BLD COUNT Routine 12/30/2017 8:30 Results for W/AUTO DIFF AM CDT this procedure are in the results section. POC GLUCOSE Routine 12/30/2017 8:22 Results for AM CDT this procedure are in the results section. ESTIMATED GFR Routine 12/30/2017 8:09 Results for AM CDT this procedure are in the results section. LIPID PANEL Routine 12/30/2017 8:09 Results for AM CDT this procedure are in the results section. COMPREHENSIVE METABOLIC Routine 12/30/2017 8:09 Results for PANEL AM CDT this procedure are in the results section. BILIRUBIN DIRECT Routine 12/30/2017 6:19 Results for AM CDT this procedure are in the results section. ESTIMATED GFR Routine 12/30/2017 6:19 Results for AM CDT this procedure are in the results section. HEMOGLOBIN A1C Routine 12/30/2017 6:19 Results for AM CDT this procedure are in the results section. URIC ACID LEVEL Routine 12/30/2017 6:19 Results for AM CDT this procedure are in the results section. T4, FREE Routine 12/30/2017 6:19 Results for AM CDT this procedure are in the results section. THYROID STIMULATING Routine 12/30/2017 6:19 Results for HORMONE AM CDT this procedure are in the results section. PREALBUMIN LEVEL Routine 12/30/2017 6:19 Results for AM CDT this procedure are in the results section. PHOSPHORUS LEVEL Routine 12/30/2017 6:19 Results for AM CDT this procedure are in the results section. MAGNESIUM LEVEL Routine 12/30/2017 6:19 Results for AM CDT this procedure are in the results section. LIPID PANEL Routine 12/30/2017 6:19 Results for AM CDT this procedure are in the results section. LACTIC ACID LEVEL Routine 12/30/2017 6:19 Results for AM CDT this procedure are in the results section. COMPREHENSIVE METABOLIC Routine 12/30/2017 6:19 Results for PANEL AM CDT this procedure are in the results section. CREATINE KINASE, TOTAL Routine 12/30/2017 6:19 Results for (CPK) AM CDT this procedure are in the results section. B NATRIURETIC PEPTIDE Routine 12/30/2017 6:19 Results for AM CDT this procedure are in the results section. PARTIAL THROMBOPLASTIN Routine 12/30/2017 6:19 Results for TIME (PTT) AM CDT this procedure are in the results section. PROTHROMBIN TIME WITH Routine 12/30/2017 6:19 Results for INR AM CDT this procedure are in the results section. HC COMPLETE BLD COUNT Routine 12/30/2017 6:19 Results for W/AUTO DIFF AM CDT this procedure are in the results section. FK506 LEVEL Routine 12/30/2017 6:19 Results for AM CDT this procedure are in the results section. POC GLUCOSE Routine 12/30/2017 12:25 Results for AM CDT this procedure are in the results section. CT ABDOMEN PELVIS WO STAT 12/29/2017 11:49 Results for CONTRAST PM CDT this procedure are in the results section. RESPIRATORY PATHOGEN Routine 12/29/2017 11:14 Results for PANEL PM CDT this procedure are in the results section. BLOOD CULTURE, AEROBIC Routine 12/29/2017 11:14 Results for & ANAEROBIC PM CDT this procedure are in the results section. BLOOD CULTURE, AEROBIC Routine 12/29/2017 10:45 Results for & ANAEROBIC PM CDT this procedure are in the results section. ESTIMATED GFR STAT 12/29/2017 4:48 Results for PM CDT this procedure are in the results section. HCG QUALITATIVE, URINE STAT 12/29/2017 4:48 Results for SCREEN PM CDT this procedure are in the results section. URINALYSIS SCREEN AND STAT 12/29/2017 4:48 Results for MICROSCOPY, WITH REFLEX PM CDT this procedure TO CULTURE are in the results section. LIPASE LEVEL STAT 12/29/2017 4:48 Results for PM CDT this procedure are in the results section. COMPREHENSIVE METABOLIC STAT 12/29/2017 4:48 Results for PANEL PM CDT this procedure are in the results section. HC COMPLETE BLD COUNT STAT 12/29/2017 4:48 Results for W/AUTO DIFF PM CDT this procedure are in the results section. URINE CULTURE STAT 12/29/2017 4:48 Results for PM CDT this procedure are in the results section. CAMPYLOBACTER CULTURE Routine 12/29/2017 2:45 Results for AM CDT this procedure are in the results section. GASTROINTESTINAL PANEL Routine 12/29/2017 2:45 Results for AM CDT this procedure are in the results section. ESTIMATED GFR Routine 11/22/2017 8:30 Results for AM CDT this procedure are in the results section. PROTHROMBIN TIME WITH Routine 11/22/2017 8:30 Kidney replaced by Results for INR AM CDT transplant this procedure Transplant rejection are in the Urinary tract results infection without section. hematuria, site unspecified CREATININE LEVEL, Routine 11/22/2017 8:30 Kidney replaced by Results for URINE, RANDOM AM CDT transplant this procedure Transplant rejection are in the Urinary tract results infection without section. hematuria, site unspecified URINALYSIS SCREEN AND Routine 11/22/2017 8:30 Kidney replaced by Results for MICROSCOPY, WITH REFLEX AM CDT transplant this procedure TO CULTURE Transplant rejection are in the Urinary tract results infection without section. hematuria, site unspecified PROTEIN, URINE, RANDOM Routine 11/22/2017 8:30 Kidney replaced by Results for AM CDT transplant this procedure Transplant rejection are in the Urinary tract results infection without section. hematuria, site unspecified PHOSPHORUS LEVEL Routine 11/22/2017 8:30 Kidney replaced by Results for AM CDT transplant this procedure Transplant rejection are in the Urinary tract results infection without section. hematuria, site unspecified MAGNESIUM LEVEL Routine 11/22/2017 8:30 Kidney replaced by Results for AM CDT transplant this procedure Transplant rejection are in the Urinary tract results infection without section. hematuria, site unspecified FK506 LEVEL Routine 11/22/2017 8:30 Kidney replaced by Results for AM CDT transplant this procedure Transplant rejection are in the Urinary tract results infection without section. hematuria, site unspecified HC COMPLETE BLD COUNT Routine 11/22/2017 8:30 Kidney replaced by Results for W/AUTO DIFF AM CDT transplant this procedure Transplant rejection are in the Urinary tract results infection without section. hematuria, site unspecified COMPREHENSIVE METABOLIC Routine 11/22/2017 8:30 Kidney replaced by Results for PANEL AM CDT transplant this procedure Transplant rejection are in the Urinary tract results infection without section. hematuria, site unspecified GRAM STAIN Routine 11/22/2017 8:30 Results for AM CDT this procedure are in the results section. URINE CULTURE Routine 11/22/2017 8:30 Results for AM CDT this procedure are in the results section. OCT, OPTIC NERVE - OU - Routine 11/15/2017 3:56 Primary open angle Results for BOTH EYES PM CDT glaucoma of left eye, this procedure severe stage are in the results section. AUTOMATED VISUAL FIELD, Routine 11/15/2017 3:56 Primary open angle Results for EXTENDED - OU - BOTH PM CDT glaucoma of left eye, this procedure EYES severe stage are in the results section. DONOR SPECIFIC ANTIBODY Routine 11/15/2017 9:00 Results for AM CDT this procedure are in the results section. ESTIMATED GFR Routine 11/15/2017 9:00 Results for AM CDT this procedure are in the results section. CYTOMEGALOVIRUS BY PCR Routine 11/15/2017 9:00 Vitamin D deficiency Results for AM CDT Nonspecific abnormal this procedure results of basal are in the metabolism function results study section. Obesity due to excess calories without serious comorbidity, unspecified classification Essential (primary) hypertension Diabetic polyneuropathy associated with type 2 diabetes mellitus Encounter for aftercare following kidney transplant Diarrhea due to malabsorption Proliferative diabetic retinopathy associated with type 2 diabetes mellitus, macular edema presence unspecified, unspecified laterality Essential hypertension Mixed hyperlipidemia Non morbid obesity due to excess calories Osteopenia of spine Kidney transplant recipient Abnormal thyroid stimulating hormone (TSH) level Pyelonephritis 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 Obesity due to excess calories without serious comorbidity, unspecified classification Essential (primary) hypertension Diabetic polyneuropathy associated with type 2 diabetes mellitus Encounter for aftercare following kidney transplant Diarrhea due to malabsorption Proliferative diabetic retinopathy associated with type 2 diabetes mellitus, macular edema presence unspecified, unspecified laterality Essential hypertension Mixed hyperlipidemia Non morbid obesity due to excess calories Osteopenia of spine Kidney transplant recipient Abnormal thyroid stimulating hormone (TSH) level Pyelonephritis 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 Obesity due to excess calories without serious comorbidity, unspecified classification Essential (primary) hypertension Diabetic polyneuropathy associated with type 2 diabetes mellitus Encounter for aftercare following kidney transplant Diarrhea due to malabsorption Proliferative diabetic retinopathy associated with type 2 diabetes mellitus, macular edema presence unspecified, unspecified laterality Essential hypertension Mixed hyperlipidemia Non morbid obesity due to excess calories Osteopenia of spine Kidney transplant recipient Abnormal thyroid stimulating hormone (TSH) level Pyelonephritis 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 Obesity due to excess calories without serious comorbidity, unspecified classification Essential (primary) hypertension Diabetic polyneuropathy associated with type 2 diabetes mellitus Encounter for aftercare following kidney transplant Diarrhea due to malabsorption Proliferative diabetic retinopathy associated with type 2 diabetes mellitus, macular edema presence unspecified, unspecified laterality Essential hypertension Mixed hyperlipidemia Non morbid obesity due to excess calories Osteopenia of spine Kidney transplant recipient Abnormal thyroid stimulating hormone (TSH) level Pyelonephritis 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 Obesity due to excess calories without serious comorbidity, unspecified classification Essential (primary) hypertension Diabetic polyneuropathy associated with type 2 diabetes mellitus Encounter for aftercare following kidney transplant Diarrhea due to malabsorption Proliferative diabetic retinopathy associated with type 2 diabetes mellitus, macular edema presence unspecified, unspecified laterality Essential hypertension Mixed hyperlipidemia Non morbid obesity due to excess calories Osteopenia of spine Kidney transplant recipient Abnormal thyroid stimulating hormone (TSH) level Pyelonephritis 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 Obesity due to excess calories without serious comorbidity, unspecified classification Essential (primary) hypertension Diabetic polyneuropathy associated with type 2 diabetes mellitus Encounter for aftercare following kidney transplant Diarrhea due to malabsorption Proliferative diabetic retinopathy associated with type 2 diabetes mellitus, macular edema presence unspecified, unspecified laterality Essential hypertension Mixed hyperlipidemia Non morbid obesity due to excess calories Osteopenia of spine Kidney transplant recipient Abnormal thyroid stimulating hormone (TSH) level Pyelonephritis 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 PROTEIN, URINE, RANDOM Routine 11/15/2017 9:00 Kidney replaced by Results for AM CDT transplant this procedure are in the results section. CREATININE LEVEL, Routine 11/15/2017 9:00 Kidney replaced by Results for URINE, RANDOM AM CDT transplant this procedure are in the results section. HC COMPLETE BLD COUNT Routine 11/15/2017 9:00 Type 2 diabetes Results for W/AUTO DIFF AM CDT mellitus with chronic this procedure kidney disease on are in the chronic dialysis, with results long-term current use section. of insulin URINE CULTURE Routine 11/15/2017 9:00 Results for AM CDT this procedure are in the results section. 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 POC GLUCOSE Routine 10/29/2017 12:33 Results for PM CDT this procedure are in the results section. POC GLUCOSE Routine 10/29/2017 7:48 Results for AM CDT this procedure are in the results section. FK506 LEVEL Routine 10/29/2017 5:48 Results for AM CDT this procedure are in the results section. ESTIMATED GFR Routine 10/29/2017 5:48 Results for AM CDT this procedure are in the results section. COMPREHENSIVE METABOLIC Routine 10/29/2017 5:48 Results for PANEL AM CDT this procedure are in the results section. HC COMPLETE BLD COUNT Routine 10/29/2017 5:48 Results for W/AUTO DIFF AM CDT this procedure are in the results section. POC GLUCOSE Routine 10/28/2017 8:46 Results for PM CDT this procedure are in the results section. POC GLUCOSE Routine 10/28/2017 5:06 Results for PM CDT this procedure are in the results section. POC GLUCOSE Routine 10/28/2017 12:38 Results for PM CDT this procedure are in the results section. POC GLUCOSE Routine 10/28/2017 7:39 Results for AM CDT this procedure are in the results section. ESTIMATED GFR Routine 10/28/2017 5:10 Results for AM CDT this procedure are in the results section. FK506 LEVEL Routine 10/28/2017 5:10 Results for AM CDT this procedure are in the results section. COMPREHENSIVE METABOLIC Routine 10/28/2017 5:10 Results for PANEL AM CDT this procedure are in the results section. HC COMPLETE BLD COUNT Routine 10/28/2017 5:10 Results for W/AUTO DIFF AM CDT this procedure are in the results section. POC GLUCOSE Routine 10/27/2017 9:23 Results for PM CDT this procedure are in the results section. POC GLUCOSE Routine 10/27/2017 5:08 Results for PM CDT this procedure are in the results section. POC GLUCOSE Routine 10/27/2017 1:24 Results for PM CDT this procedure are in the results section. DONOR SPECIFIC ANTIBODY Routine 10/27/2017 11:02 Results for AM CDT this procedure are in the results section. CYTOMEGALOVIRUS BY PCR Routine 10/27/2017 11:02 Results for AM CDT this procedure are in the results section. BK VIRUS BY PCR Routine 10/27/2017 11:02 Results for AM CDT this procedure are in the results section. US RENAL TRANSPLANT Routine 10/27/2017 10:05 Results for DOPPLER AM CDT this procedure are in the results section. POC GLUCOSE Routine 10/27/2017 8:10 Results for AM CDT this procedure are in the results section. PHOSPHORUS LEVEL Routine 10/27/2017 6:00 Results for AM CDT this procedure are in the results section. MAGNESIUM LEVEL Routine 10/27/2017 6:00 Results for AM CDT this procedure are in the results section. FERRITIN LEVEL Routine 10/27/2017 6:00 Results for AM CDT this procedure are in the results section. TOTAL IRON BINDING Routine 10/27/2017 6:00 Results for CAPACITY AM CDT this procedure are in the results section. ESTIMATED GFR Routine 10/27/2017 6:00 Results for AM CDT this procedure are in the results section. HC COMPLETE BLD COUNT Routine 10/27/2017 6:00 Results for W/AUTO DIFF AM CDT this procedure are in the results section. COMPREHENSIVE METABOLIC Routine 10/27/2017 6:00 Results for PANEL AM CDT this procedure are in the results section. VITAMIN D 25 HYDROXY Routine 10/27/2017 6:00 Results for LEVEL AM CDT this procedure are in the results section. FK506 LEVEL Routine 10/27/2017 6:00 Results for AM CDT this procedure are in the results section. URINALYSIS SCREEN AND Routine 10/27/2017 12:10 Results for MICROSCOPY, WITH REFLEX AM CDT this procedure TO CULTURE are in the results section. GRAM STAIN Routine 10/27/2017 12:10 Results for AM CDT this procedure are in the results section. URINE CULTURE Routine 10/27/2017 12:10 Results for AM CDT this procedure are in the results section. RESPIRATORY PATHOGEN Routine 10/27/2017 12:10 Results for PANEL AM CDT this procedure are in the results section. POC GLUCOSE Routine 10/26/2017 8:54 Results for PM CDT this procedure are in the results section. ESTIMATED GFR Routine 10/26/2017 8:10 Results for PM CDT this procedure are in the results section. BILIRUBIN DIRECT Routine 10/26/2017 8:10 Results for PM CDT this procedure are in the results section. URIC ACID LEVEL Routine 10/26/2017 8:10 Results for PM CDT this procedure are in the results section. T4, FREE Routine 10/26/2017 8:10 Results for PM CDT this procedure are in the results section. THYROID STIMULATING Routine 10/26/2017 8:10 Results for HORMONE PM CDT this procedure are in the results section. PREALBUMIN LEVEL Routine 10/26/2017 8:10 Results for PM CDT this procedure are in the results section. PHOSPHORUS LEVEL Routine 10/26/2017 8:10 Results for PM CDT this procedure are in the results section. MAGNESIUM LEVEL Routine 10/26/2017 8:10 Results for PM CDT this procedure are in the results section. LIPID PANEL Routine 10/26/2017 8:10 Results for PM CDT this procedure are in the results section. HEMOGLOBIN A1C Routine 10/26/2017 8:10 Results for PM CDT this procedure are in the results section. COMPREHENSIVE METABOLIC Routine 10/26/2017 8:10 Results for PANEL PM CDT this procedure are in the results section. CREATINE KINASE, TOTAL Routine 10/26/2017 8:10 Results for (CPK) PM CDT this procedure are in the results section. B NATRIURETIC PEPTIDE Routine 10/26/2017 8:10 Results for PM CDT this procedure are in the results section. PARTIAL THROMBOPLASTIN Routine 10/26/2017 8:10 Results for TIME (PTT) PM CDT this procedure are in the results section. PROTHROMBIN TIME WITH Routine 10/26/2017 8:10 Results for INR PM CDT this procedure are in the results section. HC COMPLETE BLD COUNT Routine 10/26/2017 8:10 Results for W/AUTO DIFF PM CDT this procedure are in the results section. FK506 LEVEL Routine 10/21/2017 8:48 Kidney replaced by Results for AM CDT transplant this procedure are in the results section. HC COMPLETE BLD COUNT Routine 10/21/2017 8:48 Kidney replaced by Results for W/AUTO DIFF AM CDT transplant this procedure are in the results section. ESTIMATED GFR Routine 10/21/2017 8:41 Results for AM CDT this procedure are in the results section. PHOSPHORUS LEVEL Routine 10/21/2017 8:41 Kidney replaced by Results for AM CDT transplant this procedure are in the results section. MAGNESIUM LEVEL Routine 10/21/2017 8:41 Kidney replaced by Results for AM CDT transplant this procedure are in the results section. BASIC METABOLIC PANEL Routine 10/21/2017 8:41 Kidney replaced by Results for AM CDT transplant this procedure are in the results section. POC GLUCOSE Routine 09/13/2017 10:14 Diabetic Results for AM ENROLLMENT NURSE polyneuropathy this procedure associated with type 2 are in the diabetes mellitus results section. POC GLYCOSYLATED Routine 09/13/2017 10:14 Diabetic Results for HEMOGLOBIN (HGB A1C) AM ENROLLMENT NURSE polyneuropathy this procedure associated with type 2 are in the diabetes mellitus results section. BONE DENSITY Routine 09/13/2017 9:46 Osteopenia, Results for AM ENROLLMENT NURSE unspecified location this procedure are in the results section. HEMOGLOBIN A1C Routine 09/13/2017 9:07 Results for AM ENROLLMENT NURSE this procedure are in the results section. THYROID STIMULATING Routine 09/13/2017 9:07 Results for HORMONE AM ENROLLMENT NURSE this procedure are in the results section. VITAMIN D 25 HYDROXY Routine 09/13/2017 9:07 Results for LEVEL AM ENROLLMENT NURSE this procedure are in the results section. T4, FREE Routine 09/13/2017 9:07 Results for AM ENROLLMENT NURSE this procedure are in the results section. MICROALBUMIN, URINE, Routine 09/13/2017 9:07 Results for RANDOM AM ENROLLMENT NURSE this procedure are in the results section. LIPID PANEL Routine 09/13/2017 9:07 Results for AM ENROLLMENT NURSE this procedure are in the results section. FRUCTOSAMINE Routine 09/13/2017 9:07 Results for AM ENROLLMENT NURSE this procedure are in the results section. COMPREHENSIVE METABOLIC Routine 09/13/2017 9:07 Results for PANEL AM ENROLLMENT NURSE this procedure are in the results section. ESTIMATED GFR Routine 09/13/2017 9:07 Results for AM ENROLLMENT NURSE this procedure are in the results section. CYTOMEGALOVIRUS BY PCR Routine 09/13/2017 9:07 Encounter for Results for AM ENROLLMENT NURSE therapeutic drug this procedure monitoring are in the Urinary tract results infection without section. hematuria, site unspecified Kidney replaced by transplant BK VIRUS BY PCR Routine 09/13/2017 9:07 Encounter for Results for AM ENROLLMENT NURSE therapeutic drug this procedure monitoring are in the Urinary tract results infection without section. hematuria, site unspecified Kidney replaced by transplant URINALYSIS SCREEN AND Routine 09/13/2017 9:07 Encounter for Results for MICROSCOPY, WITH REFLEX AM ENROLLMENT NURSE therapeutic drug this procedure TO CULTURE monitoring are in the Urinary tract results infection without section. hematuria, site unspecified Kidney replaced by transplant PROTEIN, URINE, RANDOM Routine 09/13/2017 9:07 Encounter for Results for AM ENROLLMENT NURSE therapeutic drug this procedure monitoring are in the Urinary tract results infection without section. hematuria, site unspecified Kidney replaced by transplant PHOSPHORUS LEVEL Routine 09/13/2017 9:07 Encounter for Results for AM ENROLLMENT NURSE therapeutic drug this procedure monitoring are in the Urinary tract results infection without section. hematuria, site unspecified Kidney replaced by transplant MAGNESIUM LEVEL Routine 09/13/2017 9:07 Encounter for Results for AM ENROLLMENT NURSE therapeutic drug this procedure monitoring are in the Urinary tract results infection without section. hematuria, site unspecified Kidney replaced by transplant FK506 LEVEL Routine 09/13/2017 9:07 Encounter for Results for AM ENROLLMENT NURSE therapeutic drug this procedure monitoring are in the Urinary tract results infection without section. hematuria, site unspecified Kidney replaced by transplant CREATININE LEVEL, Routine 09/13/2017 9:07 Encounter for Results for URINE, RANDOM AM ENROLLMENT NURSE therapeutic drug this procedure monitoring are in the Urinary tract results infection without section. hematuria, site unspecified Kidney replaced by transplant HC COMPLETE BLD COUNT Routine 09/13/2017 9:07 Encounter for Results for W/AUTO DIFF AM ENROLLMENT NURSE therapeutic drug this procedure monitoring are in the Urinary tract results infection without section. hematuria, site unspecified Kidney replaced by transplant URINE CULTURE Routine 09/13/2017 9:07 Results for AM ENROLLMENT NURSE this procedure are in the results section. COLOR FUNDUS Routine 05/13/2017 12:00 PHOTOGRAPHY - OU - BOTH AM CDT EYES POC GLUCOSE Routine 05/10/2017 9:43 Other diabetic Results for AM CDT neurological this procedure complication are in the associated with type 2 results diabetes mellitus section. ESTIMATED GFR Routine 05/10/2017 8:55 Results for AM CDT this procedure are in the results section. URINALYSIS SCREEN AND Routine 05/10/2017 8:55 Other complication of Results for MICROSCOPY, WITH REFLEX AM CDT kidney transplant this procedure TO CULTURE Transplanted kidney are in the Encounter for results therapeutic drug section. monitoring 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 VITAMIN D 25 HYDROXY Routine 05/10/2017 8:55 Other complication of Results for LEVEL AM CDT kidney transplant this procedure Transplanted kidney are in the Encounter for results therapeutic drug section. monitoring USP current use of systemic steroids PROTEIN, URINE, RANDOM Routine 05/10/2017 8:55 Other complication of Results for AM CDT kidney transplant this procedure Transplanted kidney are in the Encounter for results therapeutic drug section. monitoring 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 PHOSPHORUS LEVEL Routine 05/10/2017 8:55 Other complication of Results for AM CDT kidney transplant this procedure Transplanted kidney are in the Encounter for results therapeutic drug section. monitoring USP current use of systemic steroids PARATHYROID HORMONE Routine 05/10/2017 8:55 Other complication of Results for AM CDT kidney transplant this procedure Transplanted kidney are in the Encounter for results therapeutic drug section. monitoring 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 MAGNESIUM LEVEL Routine 05/10/2017 8:55 Other complication of Results for AM CDT kidney transplant this procedure Transplanted kidney are in the Encounter for results therapeutic drug section. monitoring USP current use of systemic steroids LIPID PANEL Routine 05/10/2017 8:55 Other complication of Results for AM CDT kidney transplant this procedure Transplanted kidney are in the Encounter for results therapeutic drug section. monitoring 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 HEMOGLOBIN A1C Routine 05/10/2017 8:55 Other complication of Results for AM CDT kidney transplant this procedure Transplanted kidney are in the Encounter for results therapeutic drug section. monitoring USP current use of systemic steroids FK506 LEVEL Routine 05/10/2017 8:55 Other complication of Results for AM CDT kidney transplant this procedure Transplanted kidney are in the Encounter for results therapeutic drug section. monitoring 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 CYTOMEGALOVIRUS BY PCR Routine 05/10/2017 8:55 Other complication of Results for AM CDT kidney transplant this procedure Transplanted kidney are in the Encounter for results therapeutic drug section. monitoring USP current use of systemic steroids CREATININE LEVEL, Routine 05/10/2017 8:55 Other complication of Results for URINE, RANDOM AM CDT kidney transplant this procedure Transplanted kidney are in the Encounter for results therapeutic drug section. monitoring USP current use of systemic steroids HC COMPLETE BLD COUNT Routine 05/10/2017 8:55 Other complication of Results for W/AUTO DIFF AM CDT kidney transplant this procedure Transplanted kidney are in the Encounter for results therapeutic drug section. monitoring 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 BASIC METABOLIC PANEL Routine 05/10/2017 8:55 Other complication of Results for AM CDT kidney transplant this procedure Transplanted kidney are in the Encounter for results therapeutic drug section. monitoring 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 BK VIRUS BY PCR Routine 05/10/2017 8:55 Other complication of Results for AM CDT kidney transplant this procedure Transplanted kidney are in the Encounter for results therapeutic drug section. monitoring 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 URINE CULTURE Routine 05/10/2017 8:55 Results for AM CDT this procedure are in the results section. ESTIMATED GFR Routine 05/05/2017 12:37 Results for PM CDT this procedure are in the results section. HEMOGLOBIN A1C Routine 05/05/2017 12:37 Type 2 diabetes Results for PM CDT mellitus with chronic this procedure kidney disease on are in the chronic dialysis, with results long-term current use section. of insulin Kidney transplant recipient Other diabetic neurological complication associated with type 2 diabetes mellitus Proliferative diabetic retinopathy associated with type 2 diabetes mellitus Essential (primary) hypertension Obesity Osteopenia Vitamin D deficiency FRUCTOSAMINE Routine 05/05/2017 12:37 Type 2 diabetes Results for PM CDT mellitus with chronic this procedure kidney disease on are in the chronic dialysis, with results long-term current use section. of insulin Kidney transplant recipient Other diabetic neurological complication associated with type 2 diabetes mellitus Proliferative diabetic retinopathy associated with type 2 diabetes mellitus Essential (primary) hypertension Obesity Osteopenia Vitamin D deficiency COMPREHENSIVE METABOLIC Routine 05/05/2017 12:37 Type 2 diabetes Results for PANEL PM CDT mellitus with chronic this procedure kidney disease on are in the chronic dialysis, with results long-term current use section. 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 of insulin Kidney transplant recipient Other diabetic neurological complication associated with type 2 diabetes mellitus Proliferative diabetic retinopathy associated with type 2 diabetes mellitus Essential (primary) hypertension Obesity Osteopenia Vitamin D deficiency after 03/22/2017 Results [place] < 1 Hour (02/23/2018 6:33 PM) Narrative Performed At EXAMINATION:[place] 1 HOUR [facility] C-arm fluoroscopy was requested in OR. ORIF LEFT CALCANOUS OR 4 EVELINA 2 FT:26.2 sec DOSE:0.42 mGy IMPRESSION: Separate operative report will be issued by the physician performing the procedure. [id number] Procedure Note Hm Interface, Radiology Results Incoming - 02/24/2018 8:52 AM CDT EXAMINATION: [place] 1 HOUR C-arm fluoroscopy was requested in OR. ORIF LEFT CALCANOUS OR 4 EVELINA 2 FT:26.2 sec DOSE:0.42 mGy IMPRESSION: Separate operative report will be issued by the physician performing the procedure. [id number] Performing Organization Address City/[facility]/Zipcode Phone Number [facility] [id number] [place] [address] POC glucose (02/23/2018 6:17 PM)Only the most recent of21 resultswithin the time period is included. POC glucose 114 (H) 65 - 99 mg/dL [facility] DEPARTMENT OF PATHOLOGY AND Comment: [employer] [facility] Notified RN Meter ID: [id number] Breast Puller: Jose Armando Choi Performing Organization Address City/State/Zipcode Phone Number [facility] DEPARTMENT OF PATHOLOGY AND [id number] [place] [address] [employer] MEDICINE Estimated GFR (02/23/2018 4:30 PM)Only the most recent of17 resultswithin the time period is included. GFR Non Af Amer 27 (A) mL/min/1.73 m2 [facility] DEPARTMENT OF PATHOLOGY AND [facility] MEDICINE GFR Af Amer 33 (A) mL/min/1.73 m2 [facility] DEPARTMENT OF Comment: PATHOLOGY AND GENOMIC Chronic kidney disease: <60 mL/min/1.73m2 MEDICINE Kidney failure: <15 mL/min/1.73m2 The estimated GFR is calculated from the IDMS-traceable Modification of Diet in Renal Disease Equation. The accuracy of the calculation is poor when the creatinine is normal. Calculated values >90 mL/min/1.73m2 are not reported. This equation has not been validated in children (<18 years), women, the elderly (>70 years), or ethnic groups other than Caucasians and Americans. Specimen Plasma specimen Performing Organization Address City/State/Zipcode Phone Number [facility] DEPARTMENT OF PATHOLOGY AND [address] [place] [address] [facility] CBC with platelet and differential (02/23/2018 4:30 PM)Only the most recent of17 resultswithin the time period is included. WBC 5.29 4.50 - 11.00 k/uL [facility] DEPARTMENT OF PATHOLOGY AND GENOMIC MEDICINE RBC 3.87 (L) 4.20 - 5.50 m/uL [facility] DEPARTMENT OF PATHOLOGY AND GENOMIC MEDICINE HGB 10.9 (L) 12.0 - 16.0 g/dL [facility] DEPARTMENT OF PATHOLOGY AND GENOMIC MEDICINE HCT 35.2 (L) 37.0 - 47.0 % [facility] DEPARTMENT OF PATHOLOGY AND [facility] MEDICINE MCV 91.0 82.0 - 100.0 fL [facility] DEPARTMENT OF PATHOLOGY AND GENOMIC MEDICINE MCH 28.2 27.0 - 34.0 pg [facility] DEPARTMENT OF PATHOLOGY AND GENOMIC MEDICINE MCHC 31.0 31.0 - 37.0 g/dL [facility] DEPARTMENT OF PATHOLOGY AND GENOMIC MEDICINE RDW - SD 46.3 37.0 - 55.0 fL [facility] DEPARTMENT OF PATHOLOGY AND GENOMIC MEDICINE MPV 11.3 8.8 - 13.2 fL [facility] DEPARTMENT OF PATHOLOGY AND [facility] MEDICINE Platelet count 196 150 - 400 k/uL [facility] DEPARTMENT OF PATHOLOGY AND [facility] MEDICINE Neutrophils 84.7 (H) 39.0 - 69.0 % [facility] OF PATHOLOGY AND [facility] MEDICINE Lymphocytes 7.9 (L) 25.0 - 45.0 % [facility] DEPARTMENT OF PATHOLOGY AND [facility] MEDICINE Monocytes 6.4 0.0 - 10.0 % [facility] OF PATHOLOGY AND [facility] MEDICINE Eosinophils 0.4 0.0 - 5.0 % [facility] DEPARTMENT OF PATHOLOGY AND GENOMIC MEDICINE Basophils 0.2 0.0 - 1.0 % [facility] DEPARTMENT OF PATHOLOGY AND GENOMIC MEDICINE Immature granulocytes 0.4 0.0 - 1.0 % [facility] OF PATHOLOGY AND GENOMIC MEDICINE Specimen Blood Performing Organization Address City/[facility] Phone Number [facility] DEPARTMENT PATHOLOGY AND [address] Basic metabolic panel (02/23/2018 4:30 PM)Only the most recent of4 resultswithin the time period is included. Sodium 139 135 - 148 mEq/L [facility] DEPARTMENT OF PATHOLOGY AND GENOMIC MEDICINE Potassium 5.2 (H) 3.5 - 5.0 mEq/L [facility] DEPARTMENT OF PATHOLOGY AND GENOMIC MEDICINE Chloride 101 99 - 109 mEq/L [facility] DEPARTMENT OF PATHOLOGY AND GENOMIC MEDICINE CO2 23 (L) 24 - 31 mEq/L [facility] DEPARTMENT OF PATHOLOGY AND GENOMIC MEDICINE Anion gap 15@ANIO 7 - 15 mEq/L [facility] DEPARTMENT OF PATHOLOGY AND GENOMIC MEDICINE BUN 31 (H) 8 - 24 mg/dL [facility] DEPARTMENT OF PATHOLOGY AND GENOMIC MEDICINE Creatinine 1.9 (H) 0.5 - 1.5 mg/dL [facility] DEPARTMENT OF PATHOLOGY AND GENOMIC MEDICINE Glucose 97 65 - 99 mg/dL [facility] DEPARTMENT OF PATHOLOGY AND GENOMIC MEDICINE Calcium 10.1 8.6 - 10.6 mg/dL [facility] DEPARTMENT OF PATHOLOGY AND [facility] MEDICINE Specimen Plasma specimen Performing Organization Address [facility] Phone Number [facility] DEPARTMENT OF PATHOLOGY AND [id number] [place] [phone] [facility] XR Chest 1 Vw Portable (02/23/2018 12:20 AM) Narrative Performed At EXAMINATION: XR CHEST 1 VW PORTABLE [facility] CLINICAL HISTORY: pre-op clearance COMPARISON:08/11/2016. IMPRESSION: The lungs are clear. No pleural effusion or pneumothorax. The cardiomediastinal silhouette is normal. No acute osseous abnormalities. Left upper extremity stent. [facility]-[id number] Procedure Note Hm Interface, Radiology Results Incoming - 02/23/2018 12:26 AM CDT EXAMINATION: XR CHEST 1 VW PORTABLE CLINICAL HISTORY: pre-op clearance COMPARISON: 08/11/2016. IMPRESSION: The lungs are clear. No pleural effusion or pneumothorax. The cardiomediastinal silhouette is normal. No acute osseous abnormalities. Left upper extremity stent. [facility]-[id number] Performing Organization Address [facility] Phone Number [facility] [address] [place] [address] XR Calcaneus 2+ Vw Left (02/22/2018 10:59 PM) Narrative Performed At EXAMINATION:XR CALCANEUS 2VW LEFT [facility] CLINICAL HISTORY:pain post fall COMPARISON:No prior TECHNIQUE: 3 views of the calcaneus IMPRESSION: 1.Extra-articular avulsion fracture of the posterior calcaneal tuberosity with displacement at the Achilles attachment. No other fractures. Extensive vascular calcifications. Procedure Note Interface, Radiology Results Incoming - 02/22/2018 11:16 PM CDT EXAMINATION: XR CALCANEUS 2 VW LEFT CLINICAL HISTORY: pain post fall COMPARISON: No prior TECHNIQUE: 3 views of the calcaneus IMPRESSION: 1. Extra-articular avulsion fracture of the posterior calcaneal tuberosity with displacement at the Achilles attachment. No other fractures. Extensive vascular calcifications. Performing Organization Address [facility] Center[facility] Android POS Phone Number [facility] [address] [place] [address] XR Ankle 3+ Vw Left (02/22/2018 10:59 PM) Narrative Performed At EXAMINATION:XR ANKLE 3VW LEFT [facility] CLINICAL HISTORY:Ankle paininitial exam COMPARISON:No Prior IMPRESSION: 1.There is an extra-articular avulsion fracture of the posterior calcaneal tuberosity at the Achilles insertion with separation and displacement. Basilar calcifications. No other fractures. [facility]-[id number] Procedure Note Interface, Radiology Results Incoming - 02/22/2018 11:15 PM CDT EXAMINATION: XR ANKLE 3 VW LEFT CLINICAL HISTORY: Ankle pain initial exam COMPARISON: No Prior IMPRESSION: 1. There is an extra-articular avulsion fracture of the posterior calcaneal tuberosity at the Achilles insertion with separation and displacement. Basilar calcifications. No other fractures. [facility]-[id number] Performing Organization Address [facility] Phone Number [facility] [address] [place] [address] XR Foot 3+ Vw Left (02/22/2018 10:58 PM) Narrative Performed At Examination:XR FOOT 3VW LEFT [facility] Clinical History: pain post fall Comparison: None. Findings: 3 views of left foot are obtained. There is a fracture of the posterior superior aspect of the calcaneus. There is approximately 1.3 cm of displacement. 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 Remainder the joint spaces are within normal limits. IMPRESSION: 1. Left longitudinal calcaneal fracture. Please see report of left ankle for further details. 2. Amputation of the left second toe. 3. Remainder of left foot shows no acute abnormality. [facility]-[id number] Procedure Note Interface, Radiology Results Incoming - 02/22/2018 11:09 PM CDT Examination: XR FOOT 3 VW LEFT Clinical History: pain post fall Comparison: None. Findings: 3 views of left foot are obtained. There is a fracture of the posterior superior aspect of the calcaneus. There is approximately 1.3 cm of displacement. 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 Remainder the joint spaces are within normal limits. IMPRESSION: 1. Left longitudinal calcaneal fracture. Please see report of left ankle for further details. 2. Amputation of the left second toe. 3. Remainder of left foot shows no acute abnormality. [facility]-[id number] Performing Organization Address [facility] Phone Number [facility] [address] [place] [address] Mammo Screening w Cad Bilateral (02/07/2018 11:11 AM) Narrative Performed At PROCEDURE: [facility] MAMMO SCREENING W CAD BILATERAL Computer-assisted detection was utilized for the interpretation of this exam. COMPARISON: None. TECHNIQUE: Bilateral digital screening mammogram was performed and interpreted using computer-assisted detection. CLINICAL HISTORY: The patient has no current palpable breast complaints. FINDINGS: Bilateral mammogram demonstrates the breast parenchyma to beheterogeneously dense, which could obscure the detection of small masses. LEFT:Microcalcifications posterior depth centrally RIGHT: No specific features of malignancy. IMPRESSION: BI-RADS Category 0.Incomplete.Recommend comparison to prior outside digital mammograms for further evaluation of the described findings in the left breast. If prior mammograms are not available in 3 weeks then recommend left diagnostic mammogram and possible ultrasound for the above described findings. This facility is accredited by [employer] for Mammography. A negative x-ray report should not delay biopsy if a dominant or clinically suspicious mass is present. Not all cancers are identified by x-ray. [id number] Performing Organization Address [facility] Phone Number [facility] [address] [place] [address] Urinalysis screen and microscopy, with reflex to culture (02/07/2018 10:06 AM) Only the most recent of8 resultswithin the time period is included. Specimen site Clean catch [facility] DEPARTMENT OF PATHOLOGY AND GENOMIC MEDICINE Color, UA Straw [facility] DEPARTMENT OF PATHOLOGY AND GENOMIC MEDICINE Appearance, UA Clear [facility] DEPARTMENT OF PATHOLOGY AND GENOMIC MEDICINE Specific gravity, UA 1.010 1.001 - 1.035 [facility] DEPARTMENT OF PATHOLOGY AND GENOMIC MEDICINE pH, UA 6.0 5.0 - 8.5 [facility] DEPARTMENT OF PATHOLOGY AND GENOMIC MEDICINE Protein, UA Negative Negative [facility] DEPARTMENT OF PATHOLOGY AND GENOMIC MEDICINE Glucose, UA 1+ (A) Negative [facility] DEPARTMENT OF PATHOLOGY AND GENOMIC MEDICINE Ketones, UA Negative Negative [facility] DEPARTMENT OF PATHOLOGY AND GENOMIC MEDICINE Bilirubin, UA Negative Negative [facility] DEPARTMENT OF PATHOLOGY AND GENOMIC MEDICINE Blood, UA Negative Negative [facility] DEPARTMENT OF PATHOLOGY AND GENOMIC MEDICINE Nitrite, UA Negative Negative [facility] DEPARTMENT OF PATHOLOGY AND GENOMIC MEDICINE Urobilinogen, UA <2.0 <2.0 [facility] DEPARTMENT OF PATHOLOGY AND GENOMIC MEDICINE Leukocyte esterase, UA Trace (A) Negative [facility] DEPARTMENT OF PATHOLOGY AND GENOMIC MEDICINE Epithelial cells, UA 1 /HPF [facility] DEPARTMENT OF PATHOLOGY AND GENOMIC MEDICINE WBC, UA <1 0 - 4 /HPF [facility] DEPARTMENT OF PATHOLOGY AND GENOMIC MEDICINE RBC, UA None seen 0 - 5 /HPF [facility] DEPARTMENT OF PATHOLOGY AND GENOMIC MEDICINE Bacteria, UA Few None seen [facility] DEPARTMENT OF PATHOLOGY AND GENOMIC MEDICINE Yeast, UA None seen [facility] DEPARTMENT OF PATHOLOGY AND GENOMIC MEDICINE Yeast with pseudohyphae, UA None seen [facility] DEPARTMENT OF PATHOLOGY AND GENOMIC MEDICINE Specimen Urine Performing Organization Address City/[facility] Phone Number [facility] DEPARTMENT OF PATHOLOGY AND [address] [place] [address] Cytomegalovirus by PCR (02/07/2018 10:06 AM)Only the most recent of6 resultswithin the time period is included. Cytomegalovirus by PCR Not-Detected Not-Detected IU/mL [facility] DEPARTMENT OF PATHOLOGY AND GENOMIC MEDICINE Cytomegalovirus by PCR See link below for [facility] DEPARTMENT OF PDF Lab PATHOLOGY AND GENOMIC ReportComment: Case MEDICINE Number: [id number] Performing Organization Address City/[facility]/Zipcode Phone Number [facility] DEPARTMENT OF PATHOLOGY AND [address] [place] [id number] [place] [address] BK virus by PCR (02/07/2018 10:06 AM)Only the most recent of6 resultswithin the time period is included. BK virus PCR Not-Detected Not-Detected copies/mL [facility] DEPARTMENT OF PATHOLOGY AND GENOMIC MEDICINE BK virus PCR See link below for PDF [facility] DEPARTMENT OF PATHOLOGY Lab ReportComment: Case AND GENOMIC MEDICINE Number: [id number] Performing Organization Address City/[facility] Phone Number [facility] DEPARTMENT OF PATHOLOGY AND [address] [place] [address] Protein, urine, random (02/07/2018 10:06 AM)Only the most recent of6 resultswithin the time period is included. Protein, urine random 7 mg/dL [facility] DEPARTMENT OF PATHOLOGY AND GENOMIC MEDICINE Specimen Urine Performing Organization Address City/[facility] Phone Number [facility] DEPARTMENT OF PATHOLOGY AND [address] [place] [address] Creatinine level, urine, random (02/07/2018 10:06 AM)Only the most recent of6 resultswithin the time period is included. Creatinine, urine, random 56 mg/dL [facility] DEPARTMENT OF PATHOLOGY AND GENOMIC MEDICINE Specimen Urine Performing Organization Address [facility] Phone Number [facility] DEPARTMENT OF PATHOLOGY AND [address] [place] [address] Gram stain (02/07/2018 10:06 AM)Only the most recent of3 resultswithin the time period is included. Gram stain result No WBC's or organisms seen. [facility] DEPARTMENT OF PATHOLOGY Comment: AND GENOMIC MEDICINE Specimen Information Specimen Source: Urine Specimen Site: Clean catch Specimen Urine Performing Organization Address [facility] Phone Number [facility] DEPARTMENT OF PATHOLOGY AND [address] [place] [address] Urine culture (02/07/2018 10:06 AM)Only the most recent of8 resultswithin the time period is included. Urine culture isolate Mixed Gram positive tea [facility] DEPARTMENT OF 10-3 cfu/ml PATHOLOGY AND GENOMIC (A) MEDICINE Comment: Specimen Information Specimen Source: Urine Specimen Site: Clean catch Specimen Urine Performing Organization Address [facility] Cent[facility]ode Phone Number [facility] DEPARTMENT OF PATHOLOGY AND [address] [place] [address] Phosphorus level (02/07/2018 10:06 AM)Only the most recent of11 resultswithin the time period is included. Phosphorus 3.0 2.4 - 4.5 mg/dL [facility] DEPARTMENT OF PATHOLOGY AND GENOMIC MEDICINE Specimen Plasma specimen Performing Organization Address City/[facility] Phone Number [facility] DEPARTMENT OF PATHOLOGY AND [address] [place] [address] [facility] MEDICINE Magnesium level (02/07/2018 10:06 AM)Only the most recent of11 resultswithin the time period is included. Magnesium 1.7 1.6 - 2.4 mg/dL [facility] DEPARTMENT OF PATHOLOGY AND GENOMIC MEDICINE Specimen Plasma specimen Performing Organization Address City/[facility] Phone Number [facility] DEPARTMENT OF PATHOLOGY AND [address] [place] [address] [facility] Comprehensive metabolic panel (02/07/2018 10:06 AM)Only the most recent of13 resultswithin the time period is included. Sodium 139 135 - 148 mEq/L [facility] DEPARTMENT OF PATHOLOGY AND GENOMIC MEDICINE Potassium 5.1 (H) 3.5 - 5.0 mEq/L [facility] DEPARTMENT OF PATHOLOGY AND GENOMIC MEDICINE Chloride 108 98 - 112 mEq/L [facility] DEPARTMENT OF PATHOLOGY AND GENOMIC MEDICINE CO2 18 (L) 24 - 31 mEq/L [facility] DEPARTMENT OF PATHOLOGY AND GENOMIC MEDICINE Anion gap 13@ANIO 7 - 15 mEq/L [facility] DEPARTMENT OF PATHOLOGY AND GENOMIC MEDICINE BUN 34 (H) 8 - 23 mg/dL [facility] DEPARTMENT OF PATHOLOGY AND GENOMIC MEDICINE Creatinine 1.8 (H) 0.5 - 0.9 mg/dL [facility] DEPARTMENT OF PATHOLOGY AND GENOMIC MEDICINE Glucose 162 (H) 65 - 99 mg/dL [facility] DEPARTMENT OF PATHOLOGY AND GENOMIC MEDICINE Calcium 8.0 (L) 8.8 - 10.2 mg/dL [facility] DEPARTMENT OF PATHOLOGY AND GENOMIC MEDICINE Protein 7.0 6.3 - 8.3 g/dL [facility] DEPARTMENT OF Comment: PATHOLOGY AND GENOMIC 4.6-7.0 g/dL MEDICINE 1 week 4.4-7.6 g/dL 7 months-1year5.1-7.3 g/dL 1-2 years5.6-7.5 g/dL >3 years6.0-8.0 g/dL 18-150 6.3-8.3 g/dL Albumin 4.0 3.5 - 5.0 g/dL [facility] DEPARTMENT OF PATHOLOGY AND GENOMIC MEDICINE A/G ratio 1.3 0.7 - 3.8 [facility] DEPARTMENT OF PATHOLOGY AND GENOMIC MEDICINE Alkaline phosphatase 45 35 - 104 U/L [facility] DEPARTMENT OF PATHOLOGY AND GENOMIC MEDICINE AST 15 10 - 35 U/L [facility] DEPARTMENT OF PATHOLOGY AND GENOMIC MEDICINE ALT 13 5 - 50 U/L [facility] DEPARTMENT OF PATHOLOGY AND GENOMIC MEDICINE Total bilirubin 0.4 0.0 - 1.2 mg/dL [facility] DEPARTMENT OF PATHOLOGY AND GENOMIC MEDICINE Specimen Plasma specimen Performing Organization Address [facility] Phone Number [facility] DEPARTMENT OF PATHOLOGY AND [address] [place] [address] [facility] Donor specific antibody (01/10/2018 9:03 AM)Only the most recent of3 resultswithin the time period is included. [facility] DEPARTMENT OF PATHOLOGY AND GENOMIC MEDICINE Donor specific antibody See link below for PDF [facility] DEPARTMENT OF PATHOLOGY Lab Report AND GENOMIC MEDICINE Performing Organization Address [facility] Phone Number [facility] DEPARTMENT OF PATHOLOGY AND [address] [place] [address] FK506 level (01/10/2018 9:03 AM)Only the most recent of12 resultswithin the time period is included. FK506 level 4.5 ng/mL [facility] DEPARTMENT OF PATHOLOGY Comment: AND [facility] MEDIC[facility] Therapeutic range 5-20 ng/mL for 12 hour trough. The range varies depending on the organ transplanted, time after transplantation and co-administered immunosuppressant therapies. Please use clinical judgment to interpret test result. Test performed using [employer] chemiluminescent microparticle immunoassay for Tacrolimus on the MACH[employer] i System. Specimen Blood Performing Organization Address [facility] Phone Number [facility] DEPARTMENT OF PATHOLOGY AND [address] [place], [place] [phone] [facility] Fructosamine (01/10/2018 9:03 AM)Only the most recent of3 resultswithin the time period is included. Fructosamine 402 (H) 170 - 285 umol/L [facility] Comment: INTERPRETIVE INFORMATION:Fructosamine Variations in levels of serum proteins (albumin and immunoglobulins) may affect fructosamine results. Performed by [facility], [address] [place] [id number] [email or web address], Ed Montoya MD - Lab. Director Specimen Serum Performing Organization Address [facility] Centercode Phone Number [facility] [address] [place] [address] Vitamin D 25 hydroxy level (01/10/2018 9:03 AM)Only the most recent of4 resultswithin the time period is included. Vitamin D, 25-hydroxy 28.3 (L) 30.0 - 150.0 [facility] DEPARTMENT OF Comment: ng/mL PATHOLOGY AND GENOMIC This assay reports the sum of 25-hydroxy vitamin D3 and 25-hydroxy vitamin MEDICINE D2. Reference range: 0-17 years: Deficiency: less [...] please contact lab for alternative methods. Specimen Blood Performing Organization Address City/State/Zipcode Phone Number [facility] DEPARTMENT OF PATHOLOGY AND [address] [place] [address] [facility] Parathyroid hormone (01/10/2018 9:03 AM)Only the most recent of2 resultswithin the time period is included. PTH 483 (H) 15 - 65 pg/mL [facility] DEPARTMENT OF PATHOLOGY AND [facility] Specimen Blood Performing Organization Address City/State/Zipcode Phone Number [facility] DEPARTMENT OF PATHOLOGY AND [address] [place] [address] [facility] Hemoglobin A1c (01/10/2018 9:03 AM)Only the most recent of6 resultswithin the time period is included. Hemoglobin A1C 7.9 (H) 4.0 - 5.6 % [facility] DEPARTMENT OF PATHOLOGY Comment: AND [facility] HbA1c cutoffs for diagnosing diabetes: 4.0% - 5.6%=normal 5.7% - 6.4%=increased risk for diabetes (prediabetes) >=6.5%=diabetes Goals for glycemic control (ADA 2016) < 7.0%Target for non adults with diabetes. More or less stringent targets may be appropriate for individual patients. <7.5% Target for Children and adolescents with type 1 diabetes. Specimen Blood Performing Organization Address City/[facility] Cent[facility]ode Phone Number [facility] DEPARTMENT OF PATHOLOGY AND [address] [place] [id number] [facility] Immunoglobulin G (01/10/2018 9:03 AM) IgG 1,041 700 - 1,600 mg/dL [facility] DEPARTMENT OF PATHOLOGY AND GENOMIC MEDICINE Specimen Plasma specimen Performing Organization Address [facility]ode Phone Number [facility] DEPARTMENT OF PATHOLOGY AND [address] [place] [address] [facility] Lipid panel (01/10/2018 9:03 AM)Only the most recent of6 resultswithin the time period is included. Cholesterol 94 <200 mg/dL [facility] DEPARTMENT OF PATHOLOGY AND GENOMIC MEDICINE Triglycerides 67 <150 mg/dL [facility] DEPARTMENT OF PATHOLOGY AND GENOMIC MEDICINE HDL cholesterol 46 >40 mg/dL [facility] DEPARTMENT OF PATHOLOGY AND GENOMIC MEDICINE LDL cholesterol 44Comment: Result <100 mg/dL [facility] DEPARTMENT obtained by direct LDL PATHOLOGY AND GENOMIC measurement MEDICINE Lipid panel interpretation SeeBelow [facility] DEPARTMENT OF Comment: PATHOLOGY AND GENOMIC Total Cholesterol (mg/dL) MEDICINE <200 Desirable [phone]-jdye >=240High Triglycerides (mg/dL) <150 Normal [id number] 200-499High >=500Very high HDL Cholesterol (mg/dL) <40Low (male) <40Low (female) LDL Cholesterol (mg/dL) <100 Optimal 100-129Near or above optimal 445-714Fagqeoslbq-lixx 160-189High >=190Very high Risk Catergories that modify [...] persons with high triglycerides (>=200 mg/dL) Specimen Plasma specimen Performing Organization Address [facility] [facility] Phone Number [facility] DEPARTMENT OF PATHOLOGY AND [address] [place] [phone] [facility] Partial thromboplastin time, activated (12/30/2017 6:19 AM)Only the most recent of2 resultswithin the time period is included. PTT 35.9 23.0 - 36.0 sec [facility] DEPARTMENT OF PATHOLOGY Comment: AND GENOMIC MEDICINE PTT therapeutic range for unfractionated heparin is 61.0-112.0 seconds which corresponds to Anti-Xa 0.3-0.7 U/ml. Specimen Blood Narrative Performed At Specimen integrity [facility] DEPARTMENT OF PATHOLOGY AND GENOMIC questionable.Recollect requested MEDICINE for CMP/LACID/LIPPN/MG/PHOS PALB/TSH/T4FRE/URIC/CBC(tests). LILIANA OLEA/Erika(name/location) notified by LS2(tech ID) at12/30/201708:02 (date/time). Performing Organization Address City/State/Zipcode Phone Number [facility] DEPARTMENT OF PATHOLOGY AND [address] [place] [address] Prothrombin time with INR (12/30/2017 6:19 AM)Only the most recent of3 resultswithin the time period is included. Prothrombin time 15.6 (H) 12.0 - 15.0 sec [facility] DEPARTMENT OF PATHOLOGY AND GENOMIC MEDICINE INR 1.2 [facility] DEPARTMENT OF Comment: PATHOLOGY AND GENOMIC The International Normalized Ratio (INR) is a therapeutic MEDICINE monitoring tool for patients who are stable on oral anticoagulant therapy. An INR of 2.0-3.0 is suggested for deep vein thrombosis/pulmonary embolism. Specimen Blood Performing Organization Address City/[facility] Phone Number [facility] DEPARTMENT OF PATHOLOGY AND [address] [place] [address] Uric acid level (12/30/2017 6:19 AM)Only the most recent of2 resultswithin the time period is included. Uric acid SEE COMMENTComment: 2.4 - 5.7 mg/dL [facility] DEPARTMENT OF PATHOLOGY AND Footnote--------- GENOMIC MEDICINE Specimen Blood Performing Organization Address City/[facility]/Zipcode Phone Number [facility] DEPARTMENT OF PATHOLOGY AND [address] [place] [address] Thyroid stimulating hormone (12/30/2017 6:19 AM)Only the most recent of3 resultswithin the time period is included. TSH SEE COMMENTComment: 0.27 - 4.20 uIU/mL [facility] DEPARTMENT OF PATHOLOGY Footnote--------- AND GENOMIC MEDICINE Specimen Blood Performing Organization Address [facility] Phone Number [facility] DEPARTMENT OF PATHOLOGY AND [address] [place] [address] T4, free (12/30/2017 6:19 AM)Only the most recent of3 resultswithin the time period is included. T4, free SEE COMMENTComment: 0.9 - 1.7 ng/dL [facility] DEPARTMENT OF PATHOLOGY AND Footnote--------- GENOMIC MEDICINE Specimen Blood Performing Organization Address [facility] Phone Number [facility] DEPARTMENT OF PATHOLOGY AND [address] [place] [address] Prealbumin level (12/30/2017 6:19 AM)Only the most recent of2 resultswithin the time period is included. Prealbumin SEE COMMENT 16 - 32 mg/dL [facility] DEPARTMENT OF PATHOLOGY Comment: AND [employer] MEDICINE Footnote--------- Corrected result; previously reported as 16 on 12/30/2017 at 07:54 by I/AUT Specimen Serum Narrative Performed At [facility] DEPARTMENT OF PATHOLOGY AND [employer] questionable.Recollect requested MEDICINE for CMP/LACID/LIPPN/MG/PHOS PALB/TSH/T4FRE/URIC/CBC(tests). LILIANA AGUILAR(name/location) notified by LS2(tech ID) at12/30/201708:02 (date/time). Performing Organization Address [facility] Phone Number [facility] DEPARTMENT OF PATHOLOGY AND [address] [place] [address] B natriuretic peptide (12/30/2017 6:19 AM)Only the most recent of2 resultswithin the time period is included. BNP 44 0 - 100 pg/mL [facility] DEPARTMENT OF PATHOLOGY AND [employer] MEDICINE Specimen Blood Narrative Performed At [facility] DEPARTMENT OF PATHOLOGY AND GENOMIC questionable.Recollect requested MEDICINE for CMP/LACID/LIPPN/MG/PHOS PALB/TSH/T4FRE/URIC/CBC(tests). LILIANA AGUILAR(name/location) notified by LS2(tech ID) at12/30/201708:02 (date/time). Performing Organization Address [facility]/Zipcode Phone Number [facility] DEPARTMENT OF PATHOLOGY AND [address] [place] [address] GENOMIC [facility] Lactic acid level (12/30/2017 6:19 AM) Lactic acid SEE COMMENT 0.5 - 2.2 mmol/L [facility] DEPARTMENT OF PATHOLOGY Comment: AND GENOMIC MEDICINE Footnote--------- Corrected result; previously reported as 0.8 on 12/30/2017 at 07:38 by I/AUT Specimen Blood Performing Organization Address [facility] Phone Number [facility] DEPARTMENT OF PATHOLOGY AND [address] [place] [address] Creatine kinase, total (CPK) (12/30/2017 6:19 AM)Only the most recent of2 resultswithin the time period is included. Creatine kinase SEE COMMENTComment: 26 - 192 U/L [facility] DEPARTMENT OF PATHOLOGY Footnote--------- AND GENOMIC MEDICINE Specimen Blood Performing Organization Address [facility] Phone Number [facility] DEPARTMENT OF PATHOLOGY AND [address] [place] [address] Bilirubin direct (12/30/2017 6:19 AM)Only the most recent of2 resultswithin the time period is included. Bilirubin direct SEE COMMENTComment: 0.0 - 0.3 mg/dL [facility] DEPARTMENT OF PATHOLOGY Footnote--------- AND GENOMIC MEDICINE Specimen Blood Performing Organization Address [facility] Phone Number [facility] DEPARTMENT OF PATHOLOGY AND [address] [place] [address] CT Abdomen Pelvis Wo Contrast (12/29/2017 11:49 PM) Narrative Performed At CT ABDOMEN PELVIS WO CONTRAST RADIANT CLINICAL INDICATION:abd pain TECHNIQUE: Multidetector CT of the abdomen and pelvis was performed without intravenous administration of iodinated contrast with multiplanar reformats. CT scans are performed using radiation dose reduction techniques (iterative reconstruction and/or automated exposure control). Technical factors are evaluated and adjusted to ensure appropriate moderation of exposure. Automated dose management technology is applied to adjust radiation exposure while achieving a diagnostic quality image. COMPARISON:CT 08/07/2016. FINDINGS: Evaluation of abdominopelvic contents limited due to lack of IV contrast. Lung bases:Clear. Liver:Normal. Gallbladder and biliary:Gallbladder is unremarkable. Common bile duct is not dilated. Pancreas:Normal. Spleen:Normal. Gastrointestinal:Predominantly liquid stool content is seen throughout the colon. Large and small bowel are normal in caliber. Appendix is not visualized. No focal inflammatory changes within the right lower quadrant of the abdomen. Adrenals:Normal. Kidneys and ureters: Right kidney appears to be absent. Right renal fossa is unremarkable. Left kidney is atrophic. Right iliac fossa renal transplant with unremarkable CT appearance. No hydronephrosis or perinephric fluid collection. Urinary bladder:Well-distended. Lymph nodes:No enlarged lymph nodes in the abdomen or pelvis. Peritoneum:No ascites or free air. Vascular:Moderate atherosclerotic changes of the abdominal aorta and major branch vessels. Evaluation of vessel lumens is limited due to lack of IV contrast. Reproductive organs:Uterus is normal. Unremarkable adnexae. Abdominal wall:Unremarkable. Bones:Diffuse osteopenia. Mild degenerative changes. IMPRESSION: 1. Predominantly liquid stool content in the colon suggesting diarrhea. 2. Interval right nephrectomy. [facility]-[id number] Procedure Note [facility], Radiology Results Incoming - 12/29/2017 11:[address] ABDOMEN PELVIS WO CONTRAST CLINICAL INDICATION: abd pain TECHNIQUE: Multidetector CT of the abdomen and pelvis was performed without intravenous administration of iodinated contrast with multiplanar reformats. CT scans are performed using radiation dose reduction techniques (iterative reconstruction and/or automated exposure control). Technical factors are evaluated and adjusted to ensure appropriate moderation of exposure. Automated dose management technology is applied to adjust radiation exposure while achieving a diagnostic quality image. COMPARISON: CT 08/07/2016. FINDINGS: Evaluation of abdominopelvic contents limited due to lack of IV contrast. Lung bases: Clear. Liver: Normal. Gallbladder and biliary: Gallbladder is unremarkable. Common bile duct is not dilated. Pancreas: Normal. Spleen: Normal. Gastrointestinal: Predominantly liquid stool content is seen throughout the colon. Large and small bowel are normal in caliber. Appendix is not visualized. No focal inflammatory changes within the right lower quadrant of the abdomen. Adrenals: Normal. Kidneys and ureters: Right kidney appears to be absent. Right renal fossa is unremarkable. Left kidney is atrophic. Right iliac fossa renal transplant with unremarkable CT appearance. No hydronephrosis or perinephric fluid collection. Urinary bladder: Well-distended. Lymph nodes: No enlarged lymph nodes in the abdomen or pelvis. Peritoneum: No ascites or free air. Vascular: Moderate atherosclerotic changes of the abdominal aorta and major branch vessels. Evaluation of vessel lumens is limited due to lack of IV contrast. Reproductive organs: Uterus is normal. Unremarkable adnexae. Abdominal wall: Unremarkable. Bones: Diffuse osteopenia. Mild degenerative changes. IMPRESSION: 1. Predominantly liquid stool content in the colon suggesting diarrhea. 2. Interval right nephrectomy. [facility]-[id number] Performing Organization Address City/[facility]/Zipcode Phone Number [facility] [address] [place] [address] Respiratory pathogen panel (12/29/2017 11:14 PM)Only the most recent of2 resultswithin the time period is included. Respiratory pathogen Negative for all pathogens tested: [facility] DEPARTMENT OF panel Negative for Adenovirus PATHOLOGY AND GENOMIC Negative for Coronavirus HKU1 MEDICINE Negative for Coronavirus NL63 Negative for Coronavirus 229E Negative for Coronavirus OC43 Negative for Human Metapneumovirus Negative for Rhinovirus/Enterovirus Negative for Influenza A Negative for Influenza A/H1 Negative for Influenza A/H3 Negative for Influenza A/H1-2009 Negative for Influenza B Negative for Parainfluenza Virus 1 Negative for Parainfluenza Virus 2 Negative for Parainfluenza Virus 3 Negative for Parainfluenza Virus 4 Negative for Respiratory Syncytial Virus Negative for Bordetella pertussis Negative for Chlamydophila pneumoniae Negative for Mycoplasma pneumoniae This real-time PCR assay detects the presence of nucleic acids (RNA or DNA) for the respiratory pathogens listed. A result of "Not-detected" does not exclude the possibility of the presence of one or more pathogens at concentrations less than the detectable limits of the assay. Comment: Specimen Information Specimen Source: Nares Specimen Site: Right and left lobes Specimen Nares - Right and left lobes Performing Organization Address City/[facility] Phone Number [facility] DEPARTMENT OF PATHOLOGY AND [address] [place] [address] GENOMIC MEDICINE Blood culture, aerobic & anaerobic (12/29/2017 11:14 PM)Only the most recent of2 resultswithin the time period is included. Blood culture isolate No growth after 5 days of incubation. [facility] DEPARTMENT OF Comment: PATHOLOGY AND GENOMIC Specimen Information MEDICINE Specimen Source: Blood Specimen Site: Antecubital, right Specimen Blood - Antecubital, right Performing Organization Address [facility] Phone Number [facility] DEPARTMENT OF PATHOLOGY AND [address] [place] [address] hCG qualitative, urine screen (12/29/2017 4:48 PM) hCG qualitative, urine NegativeComment: [facility] DEPARTMENT OF Sensitivity of HCG test: 25 PATHOLOGY AND GENOMIC mIU/mL MEDICINE Specimen Urine Performing Organization Address [facility] Phone Number [facility] DEPARTMENT OF PATHOLOGY AND [address] [place] [address] MEDICINE Lipase level (12/29/2017 4:48 PM) Lipase 41 13 - 60 U/L [facility] DEPARTMENT OF PATHOLOGY AND [facility] MEDICINE Specimen Plasma specimen Performing Organization Address [facility] Number [facility] DEPARTMENT OF PATHOLOGY AND [address] [place] [address] MEDICINE Gastrointestinal panel (12/29/2017 2:45 AM) Gastrointestinal panel Positive for Campylobacter [facility] DEPARTMENT OF PATHOLOGY AND GENOMIC This organism has been reported to the [facility] MEDICINE Department as required, [address] [place] [address]. (A) Comment: Specimen Information Specimen Source: Stool Specimen Site: Nonpreserved Gastrointestinal panel Positive for Enteropathogenic E coli [facility] DEPARTMENT OF PATHOLOGY AND GENOMIC (A) MEDICINE Gastrointestinal panel Positive for Norovirus GI/GII [facility] DEPARTMENT OF PATHOLOGY AND GENOMIC Negative for all other pathogens tested: MEDICINE Negative for Salmonella Negative for Shigella Negative for Shiga-like toxin-producing E coli Negative for Plesiomonas shigelloides Negative for Yersinia enterocolitica Negative for Vibrio species Negative for Clostridium difficile (Toxin A/B) Negative for Cryptosporidium Negative for Giardia lamblia Negative for Cyclospora cayeteanensis Negative for Entamoeba histolytica Negative for Adenovirus F 40/41 Negative for Astrovirus Negative for Rotavirus A Negative for Sapovirus Negative for E coli 0157 This real-time PCR assay detects the presence of nucleic acids (RNA or DNA) for the gastrointestinal pathogens listed. A result of "Not-detected" does not exclude the possibility of the presence of one or more pathogens at concentrations less than the detectable limits of the assay. (A) Specimen Stool - Nonpreserved Performing Organization Address City/[facility]/Zipcode Phone Number [facility] DEPARTMENT OF PATHOLOGY AND [address] [place] [address] [employer] Campylobacter culture (12/29/2017 2:45 AM) Campylobacter culture No Campylobacter isolated. [facility] DEPARTMENT OF isolate Comment: PATHOLOGY AND GENOMIC Specimen Information MEDICINE Specimen Source: Stool Specimen Site: Nonpreserved Specimen Stool - Nonpreserved Performing Organization Address [facility] Phone Number [facility] DEPARTMENT OF PATHOLOGY AND [address] [place] [address] [facility] OCT, Optic Nerve - OU - Both Eyes (11/15/2017 3:56 PM) Narrative Performed At UNABLE TO GET GLAUCOMA POSTERIOR POLE. TRIED SEVERAL TIMES WITH AT WELL. OCT of the optic nerves was performed.The [id number] images show cupping bilaterally, more so on the left, in these images it looks to be 0.7 in the right eye and 0.85-0.9 looking at the thin superior and inferior rim in the left eye.There is visualized PRP which goes with and the vascular arcades particularly on the left.The global values are 90 and 47.The 90 global value is normal on the right, and the nerve fiber layer profile appears normal.The left is diffusely thin, with borderline thinness temporally and the remainder of the nerve frankly thin.This is consistent with glaucoma, and worsened with her past panretinal photocoagulation and her ischemic retinopathy. 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 Automated Visual Field, Extended - OU - Both Eyes (11/15/2017 3:56 PM) Narrative Performed At Right Eye Threshold was 24-2. Strategy was ARMANI. Left Eye Threshold was 24-2. Strategy was ARMANI. Notes BEST I COULD GET PATIENT TO DO, ESPECIALLY LEFT EYE.PATIENT KEPT ON SITTING BACK C/O LEFT EYE PAIN. This is the only Gonzalez visual field in OIS.The right eye is reliable by fixation losses and false positive errors but has 15% false negative errors.The mean deviation is -13.68.There is a probable superior arcuate and inferior nasal step to arcuate defect.The left eye has a similar good reliability by fixation losses and only 2% false positive errors but is unable to calculate the false negative errors.It was done as a size 3 and has a mean deviation of -28.65.The total field was depressed with only a superior temporal island remaining and some scattered decrease in the density of the defect as a temporal island and nasal island.This is consistent with severe glaucoma and with her past dense PRP and DME. Color Fundus Photography - OU - Both Eyes (11/11/2017 4:05 PM) Narrative Performed At Optic nerve stereoscopic color photographs were obtained.This shows a dark fundus in both eyes, cupping of approximately 0.8 and 0.7 respectively, with Mikel papillary atrophy bilaterally.The vessels appear attenuated in both eyes.There is very little visualized macula. The peripheral retina in the left eye shows dense almost confluent panretinal photocoagulation. US Renal Transplant Doppler (10/27/2017 10:05 AM) Narrative Performed At EXAMINATION:[facility] H[facility]ORY:Abnormal labs clinical exam TECHNIQUE: Sonographic images of the renal transplant were obtained as well as grayscale, color Doppler, and waveform analysis of the renal transplant vessels. COMPARISON:None. FINDINGS: The right iliac fossa renal transplant is normal in size and echogenicity. There is no evidence of renal mass, calculi. There are no perinephric fluid collections. present. The transplant kidney measures 11.9 cm length by 5.3 cm AP with the parenchymal thickness of1.3 cm. Minimal pelvic caliectasis is noted suspicious for mild obstruction. The renal parenchymal echogenicity is normal. The renal parenchymal thickness is preserved. No hydronephrosis, perinephric fluid collections, solid masses, or abnormal posterior acoustic shadowing is demonstrated from either kidney. The transplant renal artery and vein are patent with normal flow direction and waveform. The velocity profile and measurements are as follows: Velocity measurements in meters per second (abnormal is greater than 1.8 m/s): [place] iliac artery: 208 cm/s Anastomotic site: 101 cm/s Main renal artery: 71 cm/s The resistive index of the main renal artery: 0.82. The acceleration index (AI) is in centimeters per second. Superior: 0.09 seconds with the resistive index 0.95 and acceleration index 254 Mid:0.07 seconds with the resistive index 0.99 and acceleration index 331 Lower:0.07 seconds with the resistive index 0.98 and acceleration index 206 of the arcuate arteries representing nonspecific medical renal parenchymal disease. Acceleration index is normal at greater than 300 cm/s. The acceleration time normal is less than or equal to 0.07 seconds. The urinary bladder is unremarkable. The bladder at presentation measures 7.6 cm length by 9.2 cm transverse by 5.5 cm AP for volume of 180 mL.. IMPRESSION: Minimal hydronephrosis of the transplant kidney. Abnormal resistive indices in the transplant kidney with decreased acceleration indices [facility]-[id number] Procedure Note [facility], Radiology Results Incoming - 10/27/2017 1:15 PM CDT EXAMINATION: US RENAL TRANSPLANT DOPPLER CLINICAL HISTORY: Abnormal labs clinical exam TECHNIQUE: Sonographic images of the renal transplant were obtained as well as grayscale, color Doppler, and waveform analysis of the renal transplant vessels. COMPARISON: None. FINDINGS: The right iliac fossa renal transplant is normal in size and echogenicity. There is no evidence of renal mass, calculi. There are no perinephric fluid collections. present. The transplant kidney measures 11.9 cm length by 5.3 cm AP with the parenchymal thickness of 1.3 cm. Minimal pelvic caliectasis is noted suspicious for mild obstruction. The renal parenchymal echogenicity is normal. The renal parenchymal thickness is preserved. No hydronephrosis, perinephric fluid collections, solid masses, or abnormal posterior acoustic shadowing is demonstrated from either kidney. The transplant renal artery and vein are patent with normal flow direction and waveform. The velocity profile and measurements are as follows: Velocity measurements in meters per second (abnormal is greater than 1.8 m/s): [place] iliac artery: 208 cm/s Anastomotic site: 101 cm/s Main renal artery: 71 cm/s The resistive index of the main renal artery: 0.82. The acceleration index (AI) is in centimeters per second. Superior: 0.09 seconds with the resistive index 0.95 and acceleration index 254 Mid: 0.07 seconds with the resistive index 0.99 and acceleration index 331 Lower: 0.07 seconds with the resistive index 0.98 and acceleration index 206 of the arcuate arteries representing nonspecific medical renal parenchymal disease. Acceleration index is normal at greater than 300 cm/s. The acceleration time normal is less than or equal to 0.07 seconds. The urinary bladder is unremarkable. The bladder at presentation measures 7.6 cm length by 9.2 cm transverse by 5.5 cm AP for volume of 180 mL.. IMPRESSION: Minimal hydronephrosis of the transplant kidney. Abnormal resistive indices in the transplant kidney with decreased acceleration indices [facility]-[id number] Performing Organization Address [facility] Phone Number [facility] [address] [place] [address] Total iron binding capacity (10/27/2017 6:00 AM) Iron level 14 (L) 37 - 145 ug/dL [facility] DEPARTMENT OF PATHOLOGY AND GENOMIC MEDICINE Iron binding capacity 128 (L) 200 - 400 ug/dL [facility] DEPARTMENT OF PATHOLOGY AND GENOMIC MEDICINE % Saturation 10.9 (L) 15.0 - 38.0 % [facility] DEPARTMENT OF PATHOLOGY AND GENOMIC MEDICINE Specimen Plasma specimen Performing Organization Address [facility] Phone Number [facility] DEPARTMENT OF PATHOLOGY AND [address] [place] [address] [facility] Ferritin level (10/27/2017 6:00 AM) Ferritin level 260 (H) 13 - 150 ng/mL [facility] DEPARTMENT OF PATHOLOGY AND GENOMIC MEDICINE Specimen Plasma specimen Performing Organization Address [facility] Phone Number [facility] DEPARTMENT OF PATHOLOGY AND [address] [place] [address] POC glycosylated hemoglobin (Hb A1C) (09/13/2017 10:14 AM) POC Hemoglobin A1C 8.9 % Specimen Blood Bone Density (09/13/2017 9:46 AM) Narrative Performed At [facility] [address] [place] [address] Bone Density Report Name: Shanna Mishra Sex: Female Age: 61 Ethnicity: Height: 61.3 in Referring Provider: ONELIA BAILEY Date of : 1955 Weight: 136.2lb Indication: Osteoporosis; history of glucocorticoids Accession number: [id number] Bone Density: Exam date 09/13/2017 Region BMD [...] cause or contribute to bone loss. The [place] [employer]ocrinologists (AACE) and National [...] MACE, FACP, CCD on 09/14/2017 6:33:00 AM. Performing Organization Address City/[facility]/Zipcode Phone Number [facility] [address] [place] [address] Microalbumin, urine, random (09/13/2017 9:07 AM) Total volume, urine No volume mL [facility] DEPARTMENT OF PATHOLOGY AND GENOMIC MEDICINE Urine creatinine 32 mg/dL [facility] DEPARTMENT OF concentration PATHOLOGY AND GENOMIC MEDICINE Urine microalbumin <1.2 mg/dL [facility] DEPARTMENT OF concentration PATHOLOGY AND GENOMIC MEDICINE Urine SEE COMMENTComment: 0 - 30 mg/g [facility] DEPARTMENT OF microalbumin/creatinine Unable to calculate due PATHOLOGY AND GENOMIC ratio to low analyte MEDICINE concentration. Specimen Urine Performing Organization Address [facility] Phone Number [facility] DEPARTMENT OF PATHOLOGY AND [address] [place] [address] GENOMIC MEDICINE Color Fundus Photography - OU - Both Eyes (05/13/2017) Narrative Performed At after 03/22/2017 Insurance Payer Benefit Plan / Group Subscriber ID Type Phone Address UHC MEDICARE UNITED[facility]LY [facility] xxxxxxxxx [facility] [place] Medicaid Home: [address] [place], [place] [id number] [place] [phone]
--- OUTSIDE RECORDS SUMMARY | 2018-03-23 10:54 | XMS REPORT ---
:1955 [facility] Address [address] [place], [place] [address]karina Dior [address] [place] [address] Care Team Providers Name Role Phone PATEL KYRA VALLECILLO Unavailable Unavailable Problems This patient has no known problems. Allergies, Adverse Reactions, Alerts This patient has no known allergies or adverse reactions. Medications This patient has no known medications. Results Test Description Test Time Test Comments Text Results Atomic Results Result Comments TISSUE EXAM 2016-11-29 16:45:00 Test Item Value Reference Range Comments LAB AP CPT CODE (BEAKER) (test qisz=6036) [id number] TACROLIMUS [id number] 09:09:00 Test Item Value Reference Range Comments TACROLIMUS BLOOD (BEAKER) (test nvmh=245) 6.8 ng/mL 10.0-20.0 POCT-GLUCOSE [id number] 07:33:00 Test Item Value Reference Range Comments POC-GLUCOSE METER (BEAKER) 138 mg/dL 70-110 TESTED AT [facility] [address] [facility] (test siux=4686) [facility] [address] BASIC METABOLIC [id number] 05:08:00 Test Item Value Reference Range Comments SODIUM (BEAKER) (test 139 meq/L 136-145 eoxu=733) POTASSIUM (BEAKER) (test 4.7 meq/L 3.5-5.1 lrdy=513) CHLORIDE (BEAKER) (test 109 meq/L 98-107 pgxx=641) CO2 (BEAKER) (test 23 meq/L 22-29 ewqx=588) BLOOD UREA NITROGEN 21 mg/dL 7-21 (BEAKER) (test sqsm=965) CREATININE (BEAKER) (test 1.08 mg/dL 0.57-1.25 heup=465) GLUCOSE RANDOM (BEAKER) 93 mg/dL 70-105 (test fwkp=600) CALCIUM (BEAKER) (test 8.8 mg/dL 8.4-10.2 awjn=917) EGFR (BEAKER) (test 52 mL/min/1.73 sq m ESTIMATED GFR IS NOT kyyq=5321) ACCURATE CREATININE CLEARANCE IN PREDICTING GLOMERULAR FILTRATION RATE. ESTIMATED GFR IS NOT APPLICABLE FOR DIALYSIS PATIENTS. CBC W/PLT COUNT & AUTO [id number] 04:51:00 Test Item Value Reference Range Comments WHITE BLOOD CELL COUNT (BEAKER) (test wbaz=471) 4.1 K/ L 4.0-10.0 RED BLOOD CELL COUNT (BEAKER) (test lsye=896) 3.47 M/ L 4.00-5.00 HEMOGLOBIN (BEAKER) (test tsjo=682) 11.0 GM/DL 12.0-15.0 HEMATOCRIT (BEAKER) (test pawd=394) 34.1 % 36.0-45.0 MEAN CORPUSCULAR VOLUME (BEAKER) (test hnwe=415) 98.3 fL 82.0-99.0 MEAN CORPUSCULAR HEMOGLOBIN (BEAKER) (test 31.6 pg 27.0-33.0 rvtm=426) MEAN CORPUSCULAR HEMOGLOBIN CONC (BEAKER) (test 32.1 GM/DL 32.0-36.0 uehl=570) RED CELL DISTRIBUTION WIDTH (BEAKER) (test 11.9 % 10.3-14.2 sdfj=250) PLATELET COUNT (BEAKER) (test gipu=948) 148 K/CU MM 150-430 MEAN PLATELET VOLUME (BEAKER) (test ezcq=069) 8.3 fL 6.5-10.5 NUCLEATED RED BLOOD CELLS (BEAKER) (test 0 /100 WBC 0-0 lhoy=691) NEUTROPHILS RELATIVE PERCENT (BEAKER) (test 77 % gbbg=516) LYMPHOCYTES RELATIVE PERCENT (BEAKER) (test 11 % pxqd=384) MONOCYTES RELATIVE PERCENT (BEAKER) (test 12 % ulzi=649) EOSINOPHILS RELATIVE PERCENT (BEAKER) (test 1 % apzm=601) BASOPHILS RELATIVE PERCENT (BEAKER) (test 0 % jauk=393) NEUTROPHILS ABSOLUTE COUNT (BEAKER) (test 3.17 K/ L 1.80-8.00 jvoz=982) LYMPHOCYTES ABSOLUTE COUNT (BEAKER) (test 0.45 K/ L 1.48-4.50 pnrc=420) MONOCYTES ABSOLUTE COUNT (BEAKER) (test 0.50 K/ L 0.00-1.30 ntcz=882) EOSINOPHILS ABSOLUTE COUNT (BEAKER) (test 0.02 K/ L 0.00-0.50 rejx=163) BASOPHILS ABSOLUTE COUNT (BEAKER) (test 0.00 K/ L 0.00-0.20 igue=184) 0.00POCT-GLUCOSE [id number] 01:09:00 Test Item Value Reference Range Comments POC-GLUCOSE METER (BEAKER) 97 mg/dL 70-110 TESTED AT [address] (test nuke=6715) [facility] [address] POCT-GLUCOSE [id number] 21:30:00 Test Item Value Reference Range Comments POC-GLUCOSE METER (BEAKER) 424 mg/dL 70-110 Notified BO PILLAI/TESTED AT [facility] (test avlh=2219) [address] [place] [address] POCT-GLUCOSE [id number] 17:04:00 Test Item Value Reference Range Comments POC-GLUCOSE METER (BEAKER) 198 mg/dL 70-110 TESTED AT [address] (test uuiv=2726) [place] [id number] POCT-GLUCOSE [id number] 12:51:00 Test Item Value Reference Range Comments POC-GLUCOSE METER (BEAKER) 205 mg/dL 70-110 TESTED AT [address] (test oygo=2298) [place] [address] TACROLIMUS [id number] 12:35:00 Test Item Value Reference Range Comments TACROLIMUS BLOOD (BEAKER) (test nyyw=194) 5.9 ng/mL 10.0-20.0 POCT-GLUCOSE [id number] 08:32:00 Test Item Value Reference Range Comments POC-GLUCOSE METER (BEAKER) 60 mg/dL 70-110 TESTED AT [address] (test qgtk=0002) [facility] [address] POCT-GLUCOSE [id number] 21:41:00 Test Item Value Reference Range Comments POC-GLUCOSE METER (BEAKER) 202 mg/dL 70-110 TESTED AT [address] (test eslw=6878) [facility] [address] POCT-GLUCOSE [id number] 17:36:00 Test Item Value Reference Range Comments POC-GLUCOSE METER (BEAKER) 191 mg/dL 70-110 TESTED AT [address] (test rpbo=3588) [place] [id number] POCT-GLUCOSE [id number] 11:01:00 Test Item Value Reference Range Comments POC-GLUCOSE METER (BEAKER) 232 mg/dL 70-110 TESTED AT [address] (test wmvw=3700) [place] [address] TACROLIMUS [id number] 10:16:00 Test Item Value Reference Range Comments TACROLIMUS BLOOD (BEAKER) (test uytf=583) 8.3 ng/mL 10.0-20.0 POCT-GLUCOSE [id number] 08:16:00 Test Item Value Reference Range Comments POC-GLUCOSE METER (BEAKER) 366 mg/dL 70-110 TESTED AT [address] (test iyky=1745) [place] [address] BASIC METABOLIC [id number] 06:57:00 Test Item Value Reference Range Comments SODIUM (BEAKER) (test 138 meq/L 136-145 nykp=702) POTASSIUM (BEAKER) (test 5.1 meq/L 3.5-5.1 vefs=981) CHLORIDE (BEAKER) (test 108 meq/L 98-107 dljl=303) CO2 (BEAKER) (test 22 meq/L 22-29 lnwu=871) BLOOD UREA NITROGEN 26 mg/dL 7-21 (BEAKER) (test hxso=379) CREATININE (BEAKER) (test 1.38 mg/dL 0.57-1.25 lygx=716) GLUCOSE RANDOM (BEAKER) 271 mg/dL 70-105 (test dfua=911) CALCIUM (BEAKER) (test 8.2 mg/dL 8.4-10.2 vxdv=496) EGFR (BEAKER) (test 39 mL/min/1.73 sq m ESTIMATED GFR IS NOT rpyi=5026) ACCURATE CREATININE CLEARANCE IN PREDICTING GLOMERULAR FILTRATION RATE. ESTIMATED GFR IS NOT APPLICABLE FOR DIALYSIS PATIENTS. HEMOGLOBIN AND [id number] 06:40:00 Test Item Value Reference Range Comments HEMOGLOBIN (BEAKER) (test uqop=027) 11.4 GM/DL 12.0-15.0 HEMATOCRIT (BEAKER) (test henr=567) 36.1 % 36.0-45.0 POCT-GLUCOSE [id number] 23:30:00 Test Item Value Reference Range Comments POC-GLUCOSE METER (BEAKER) 274 mg/dL 70-110 TESTED AT [facility] [address] (test gson=9638) [facility] [address] BASIC METABOLIC [id number] 18:49:00 Test Item Value Reference Range Comments SODIUM (BEAKER) (test 142 meq/L 136-145 oylg=020) POTASSIUM (BEAKER) (test 4.2 meq/L 3.5-5.1 hqgr=501) CHLORIDE (BEAKER) (test 114 meq/L 98-107 knfg=044) CO2 (BEAKER) (test 20 meq/L 22-29 lsdh=015) BLOOD UREA NITROGEN 28 mg/dL 7-21 (BEAKER) (test ymuo=166) CREATININE (BEAKER) (test 1.36 mg/dL 0.57-1.25 lrrg=007) GLUCOSE RANDOM (BEAKER) 177 mg/dL 70-105 (test vowg=129) CALCIUM (BEAKER) (test 8.3 mg/dL 8.4-10.2 sqci=848) EGFR (BEAKER) (test 40 mL/min/1.73 sq m ESTIMATED GFR IS NOT kwel=0600) ACCURATE CREATININE CLEARANCE IN PREDICTING GLOMERULAR FILTRATION RATE. ESTIMATED GFR IS NOT APPLICABLE FOR DIALYSIS PATIENTS. HEMOGLOBIN AND [id number] 18:35:00 Test Item Value Reference Range Comments HEMOGLOBIN (BEAKER) (test qkzl=215) 11.5 GM/DL 12.0-15.0 HEMATOCRIT (BEAKER) (test dzgv=767) 35.6 % 36.0-45.0 BASIC METABOLIC [id number] 12:08:00 Test Item Value Reference Range Comments SODIUM (BEAKER) (test 140 meq/L 136-145 xmkz=735) POTASSIUM (BEAKER) (test 4.4 meq/L 3.5-5.1 ctsz=198) CHLORIDE (BEAKER) (test 106 meq/L 98-107 sgge=352) CO2 (BEAKER) (test 23 meq/L 22-29 dsrt=357) BLOOD UREA NITROGEN 35 mg/dL 7-21 (BEAKER) (test vzid=571) CREATININE (BEAKER) (test 1.47 mg/dL 0.57-1.25 jwkl=658) GLUCOSE RANDOM (BEAKER) 69 mg/dL 70-105 (test ptxt=732) CALCIUM (BEAKER) (test 9.9 mg/dL 8.4-10.2 kivf=118) EGFR (BEAKER) (test 36 mL/min/1.73 sq m ESTIMATED GFR IS NOT enbf=5419) ACCURATE CREATININE CLEARANCE IN PREDICTING GLOMERULAR FILTRATION RATE. ESTIMATED GFR IS NOT APPLICABLE FOR DIALYSIS PATIENTS. CBC (HEMOGRAM ONLY)2016-11-23 12:01:00 Test Item Value Reference Range Comments WHITE BLOOD CELL COUNT (BEAKER) (test ipjl=005) 6.0 K/ L 4.0-10.0 RED BLOOD CELL COUNT (BEAKER) (test ozfe=565) 3.84 M/ L 4.00-5.00 HEMOGLOBIN (BEAKER) (test iqlo=831) 12.0 GM/DL 12.0-15.0 HEMATOCRIT (BEAKER) (test fsqo=342) 37.4 % 36.0-45.0 MEAN CORPUSCULAR VOLUME (BEAKER) (test snon=196) 97.3 fL 82.0-99.0 MEAN CORPUSCULAR HEMOGLOBIN (BEAKER) (test 31.3 pg 27.0-33.0 wyvo=564) MEAN CORPUSCULAR HEMOGLOBIN CONC (BEAKER) (test 32.2 GM/DL 32.0-36.0 sxmq=242) RED CELL DISTRIBUTION WIDTH (BEAKER) (test 11.8 % 10.3-14.2 mzev=715) PLATELET COUNT (BEAKER) (test ugyq=237) 183 K/CU MM 150-430 MEAN PLATELET VOLUME (BEAKER) (test aqfh=041) 8.3 fL 6.5-10.5 NUCLEATED RED BLOOD CELLS (BEAKER) (test 0 /100 WBC 0-0 miez=103) 0.00POTASSIUM-STAT [id number] 11:43:00 Test Item Value Reference Range Comments POTASSIUM (BEAKER) (test fxvj=633) 4.3 meq/L 3.6-5.5 POCT-GLUCOSE [id number] 11:34:00 Test Item Value Reference Range Comments POC-GLUCOSE METER (BEAKER) 82 mg/dL 70-110 TESTED AT [facility] [address] [facility] (test ocgj=8600) [facility] [address] URINE [id number] 11:19:00 Test Item Value Reference Range Comments CULTURE (BEAKER) (test 20-29,000 col/mL skin tea trgq=3390) URINALYSIS W/ [id number] 15:16:00 Test Item Value Reference Range Comments COLOR (BEAKER) (test xplf=875) Yellow CLARITY (BEAKER) (test ykjt=184) Clear SPECIFIC GRAVITY UA (BEAKER) (test pmjf=048) 1.013 1.001-1.035 PH UA (BEAKER) (test gngn=261) 6.0 5.0-8.0 PROTEIN UA (BEAKER) (test jwha=139) Negative Negative GLUCOSE UA (BEAKER) (test slpn=394) 30 mg/dL Negative KETONES UA (BEAKER) (test cjhe=261) Negative Negative BILIRUBIN UA (BEAKER) (test wwsh=135) Negative Negative BLOOD UA (BEAKER) (test ihnv=934) Negative Negative NITRITE UA (BEAKER) (test tjyr=987) Negative Negative LEUKOCYTE ESTERASE UA (BEAKER) (test ebwd=583) Trace Negative UROBILINOGEN UA (BEAKER) (test wyqd=686) 0.2 mg/dL 0.2-1.0 RBC UA (BEAKER) (test rihn=504) < /HPF WBC UA (BEAKER) (test eyiy=425) < /HPF SQUAMOUS EPITHELIAL (BEAKER) (test vgre=248) < /HPF SOURCE(BEAKER) (test gnxa=3054) CBC W/PLT COUNT & AUTO [id number] 14:56:00 Test Item Value Reference Range Comments WHITE BLOOD CELL COUNT (BEAKER) (test ebpx=855) 4.2 K/ L 4.0-10.0 RED BLOOD CELL COUNT (BEAKER) (test ghxa=034) 3.68 M/ L 4.00-5.00 HEMOGLOBIN (BEAKER) (test lkbk=104) 11.6 GM/DL 12.0-15.0 HEMATOCRIT (BEAKER) (test javb=902) 36.4 % 36.0-45.0 MEAN CORPUSCULAR VOLUME (BEAKER) (test lrpe=285) 98.8 fL 82.0-99.0 MEAN CORPUSCULAR HEMOGLOBIN (BEAKER) (test 31.4 pg 27.0-33.0 ozje=681) MEAN CORPUSCULAR HEMOGLOBIN CONC (BEAKER) (test 31.8 GM/DL 32.0-36.0 cacf=456) RED CELL DISTRIBUTION WIDTH (BEAKER) (test 12.8 % 10.3-14.2 tnvn=718) PLATELET COUNT (BEAKER) (test lzgj=727) 167 K/CU MM 150-430 MEAN PLATELET VOLUME (BEAKER) (test afoe=061) 8.4 fL 6.5-10.5 NUCLEATED RED BLOOD CELLS (BEAKER) (test 0 /100 WBC 0-0 gkbs=686) NEUTROPHILS RELATIVE PERCENT (BEAKER) (test 87 % kbnn=729) LYMPHOCYTES RELATIVE PERCENT (BEAKER) (test 8 % msua=393) MONOCYTES RELATIVE PERCENT (BEAKER) (test 5 % rgcl=356) EOSINOPHILS RELATIVE PERCENT (BEAKER) (test 0 % mdyo=486) BASOPHILS RELATIVE PERCENT (BEAKER) (test 0 % xhrc=090) NEUTROPHILS ABSOLUTE COUNT (BEAKER) (test 3.68 K/ L 1.80-8.00 vnsr=275) LYMPHOCYTES ABSOLUTE COUNT (BEAKER) (test 0.32 K/ L 1.48-4.50 ubzj=686) MONOCYTES ABSOLUTE COUNT (BEAKER) (test 0.20 K/ L 0.00-1.30 zlum=589) EOSINOPHILS ABSOLUTE COUNT (BEAKER) (test 0.01 K/ L 0.00-0.50 lthc=657) BASOPHILS ABSOLUTE COUNT (BEAKER) (test 0.00 K/ L 0.00-0.20 zznb=092) 0.00[facility] METABOLIC [id number] 14:55:00 Test Item Value Reference Range Comments SODIUM (BEAKER) (test 140 meq/L 136-145 wnfd=313) POTASSIUM (BEAKER) (test 5.3 meq/L 3.5-5.1 Specimen slightly yxnu=061) hemolyzed CHLORIDE (BEAKER) (test 108 meq/L 98-107 sxej=925) CO2 (BEAKER) (test 22 meq/L 22-29 ufwl=590) BLOOD UREA NITROGEN 28 mg/dL 7-21 (BEAKER) (test fcih=137) CREATININE (BEAKER) (test 1.61 mg/dL 0.57-1.25 Specimen slightly wqry=943) hemolyzed GLUCOSE RANDOM (BEAKER) 209 mg/dL 70-105 (test gxqy=597) CALCIUM (BEAKER) (test 9.3 mg/dL 8.4-10.2 dzgj=230) EGFR (BEAKER) (test 33 mL/min/1.73 sq m ESTIMATED GFR IS NOT mjnl=4846) ACCURATE CREATININE CLEARANCE IN PREDICTING GLOMERULAR FILTRATION RATE. ESTIMATED GFR IS NOT APPLICABLE FOR DIALYSIS PATIENTS. [id number] 14:51:00 Test Item Value Reference Range Comments PARTIAL THROMBOPLASTIN TIME (BEAKER) (test 30.7 seconds 22.5-36.0 ofzz=572) PROTHROMBIN TIME/[id number] 14:50:00 Test Item Value Reference Range Comments PROTIME (BEAKER) (test aqoa=676) 14.3 seconds 11.7-14.7 INR (BEAKER) (test gaqx=408) 1.1 <=5.9 RECOMMENDED COUMADIN/WARFARIN INR THERAPY RANGESSTANDARD DOSE: 2.0 - 3.0 Includes: PROPHYLAXIS forvenous thrombosis, systemic embolization; TREATMENT for venous thrombosis and/or pulmonary embolus.HIGH RISK: Target INR is 2.5-3.5 for patients with mechanical heart valves.
--- OUTSIDE RECORDS SUMMARY | 2018-03-23 10:54 | XMS REPORT | Clinical Summary ---
:1955 Author Organization [facility] Address [address] [place] [address] Phone Care Team Providers Name Role Phone Unavailable Primary Care Provider Unavailable Allergies No Known Allergies Current Medications Prescription Sig. Disp. Refills Start Date End Date Status tacrolimus (PROGRAF) 1 Take 1 mg by mouth 2 Active MG capsule (two) times daily. mycophenolate Take by mouth 2 (two) Active (CELLCEPT) 500 mg times daily. tablet predniSONE (DELTASONE) Take 5 mg by mouth Active 5 MG tablet daily. amLODIPine (NORVASC) Take 10 mg by mouth Active 10 MG tablet daily. losartan (COZAAR) 50 Take 50 mg by mouth Active MG tablet daily. cloNIDine HCl Take 0.1 mg by mouth 3 Active (CATAPRES) 0.1 MG (three) times daily. tablet omeprazole (PRILOSEC) Take 40 mg by mouth Active 40 MG capsule daily. simvastatin (ZOCOR) 20 Take 20 mg by mouth Active MG tablet nightly. calcitriol (ROCALTROL) Take 0.25 mcg by mouth Active 0.25 MCG capsule daily. alendronate (FOSAMAX) Take 70 mg by mouth Active 70 MG tablet every 7 days Take in the morning with a full glass of water, on an empty stomach, and do not take anything else by mouth or lie down for the next 30 min. . gabapentin (NEURONTIN) Take 100 mg by mouth 3 Active 100 MG capsule (three) times daily. insulin NPH 100 Inject 22 Units Active unit/mL (3 mL) InPn subcutaneously every morning before breakfast . insulin aspart Inject 8 Units Active (NOVOLOG) 100 unit/mL subcutaneously 2 (two) injection times daily as needed Only gives herself insulin fo BS above 100 - 8 units. insulin NPH 100 Inject 4 Units Active unit/mL (3 mL) InPn subcutaneously 2 (two) times daily Every NOON and every NIGHT . Active Problems Problem Noted Date Renal mass 11/23/2016 Renal mass, right 11/23/2016 Distal radius fracture, left 01/03/2015 Social History Tobacco Use Types Packs/Day Years Used Date Never Smoker Smokeless Tobacco: Never Used Alcohol Use Drinks/Week oz/Week Comments No Sex Assigned at Date Recorded Not on file 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 Type Area Biology Laboratory Assistant Device Expiration Model / Identifier Date Serial / Lot Plate,Volar Dist Rad Va-Lcp 2-Clmn 2.4mm Ti 6h Hd/2h Shaft Lt - [id number] Fracture/F Left: Wrist [employer] [id number] / Implanted: Qty: 1 on 01/03/2015 by Gabby Serrano MD ixation / [id number] Screw,Locking Stardrive Ti Va 2.4x20mm - [id number] Fracture/F [employer] [id number] / Implanted: Qty: 4 on 01/03/2015 by Gabby Serrano MD [employer] / Screw,Cortex Ti Selftap 2.7x14 - [id number] Fracture/F SYNTHES TRUMA [id number] / Implanted: Qty: 2 on 01/03/2015 by Gabby Serrano MD [employer]ation / Tiss Live Frm Strtce 6x16cm - Sn/A Tissue Right: [employer] 02/28/2018 [id number] / Implanted: Qty: 1 on 11/23/2016 by Giovanni Naik MD Graft/Subs Abdomen N/A / titute [id number] Results Not on fileafter 03/22/2017
--- NOTE | 2018-03-23 11:17 | ER ---
Nurse's Notes [facility] Name: Paola Mishra Age: 62 yrs Sex: Female : 1955 Arrival Date: 03/23/2018 Time: 10:53 Bed 19 Private MD: Ambrosio Raymundo Diagnosis: Wound Check of Left Heel;Diabetes Mellitus Presentation: 03/23 11:03 Presenting complaint: Child states: pt was seen last month for sx on the Left heel at [facility], does not remember ortho sx name, was seen Tuesday for follow up post sx, sutures removed, wound care performed wet to dry, pt has been changing the dressing daily, reports that the drainage is clear with a little blood, reports pain to heel, instructed to follow up with [facility] wound care center but the appointment for today was cancelled and rescheduled. Transition of care: patient was not received from another setting of care. Onset of symptoms was March 23, 2018. Risk Assessment: Do you want to hurt yourself or someone else? Patient reports no desire to harm self or others. Initial Sepsis Screen: Does the patient meet any 2 criteria? No. Patient's initial sepsis screen is negative. Does the patient have a suspected source of infection? No. Patient's initial sepsis screen is negative. Care prior to arrival: None. 11:03 Method Of Arrival: Ambulatory 11:03 Acuity: NOHELIA 3 Historical: - Allergies: 11:48 NKDA; em - PMHx: 11:48 Diabetes - NIDDM; ESRD; Hyperlipidemia; Hypertension; kidney transplant; em - Immunization history:: Adult Immunizations up to date. - Family history:: not pertinent. - Social history:: Smoking status: Patient/guardian denies using tobacco. - Ebola Screening: : Patient negative for fever greater than or equal to 101.5 degrees Fahrenheit, and additional compatible Ebola Virus Disease symptoms Patient denies exposure to infectious person Patient denies travel to an Ebola-affected area in the 21 days before illness onset No symptoms or risks identified at this time. - Hospitalizations: : No recent hospitalization is reported. - History obtained from: daughter. Screenin:46 Abuse screen: Denies threats or abuse. Nutritional screening: No deficits noted. em Tuberculosis screening: No symptoms or risk factors identified. Fall Risk None identified. Assessment: 11:15 General: Appears in no apparent distress. comfortable, Behavior is calm, cooperative. em Pain: Complains of pain in lateral side of left heel Pain currently is 4 out of 10 on a pain scale. Neuro: Level of Consciousness is awake, alert, obeys commands, Oriented to person, place, time, situation. Cardiovascular: Capillary refill < 3 seconds. Respiratory: Airway is patent Respiratory effort is even, unlabored, Respiratory pattern is regular, symmetrical. GI: Abdomen is round non-distended. : No signs and/or symptoms were reported regarding the genitourinary system. EENT: No signs and/or symptoms were reported regarding the EENT system. Derm: Wound noted lateral side of left heel. Musculoskeletal: Circulation, motion, and sensation intact. Capillary refill Range of motion: intact in all extremities. 11:45 Reassessment: Patient appears in no apparent distress at this time. I agree with above iw assessment by Andres Sanchez LVN. Vital Signs: 11:05 BP 138 / 69; Pulse 74; Resp 16; Temp 97.6; Pulse Ox 99% on R/A; Pain 3/10; sg ED Course: 10:53 Patient arrived in ED. mr 10:53 Ambrosio Raymundo DO is Private Physician. mr 10:59 Geni Collins F[facility] kav 10:59 Alex Donis MD is Attending Physician. kav 11:00 Andres Sanchez LVN is Primary Nurse. em 11:05 Triage completed. sg 11:06 Arm band placed on. sg 11:15 Patient has correct armband on for positive identification. Placed in gown. Bed in low em position. Call light in reach. Adult w/ patient. 11:15 No provider procedures requiring assistance completed. Patient did not have IV access em during this emergency room visit. 11:26 Wound care: to SURGICAL WOUND CLEANED WITH SALINE . located on left HEEL was cleaned mh5 with with WOUND WAS CLEANED WITH SALINE.. Administered Medications: No medications were administered Outcome: 11:17 Discharge ordered by . kav 11:51 Discharged to home ambulatory, via wheelchair, with friend. em 11:51 Condition: good 11:51 Discharge instructions given to patient, family, Instructed on discharge instructions, follow up and referral plans. Demonstrated understanding of instructions, follow-up care. 11:52 Patient left the ED. em Signatures: Geoffrey Caldwell, RN RN Geni Sorto, CARDIOVASCULAR SURGEON CARDIOVASCULAR SURGEONAparna Rivera mr Daniel, Andres, PARTY COORDINATOR PARTY COORDINATOR Luisa Chang, RN RN kadeem Sorto [place] [id number]
--- NOTE | 2018-03-23 11:17 | EDPHYS ---
Physician Documentation [facility] Name: Paola Mishra Age: 62 yrs Sex: Female : 1955 Arrival Date: 03/23/2018 Time: 10:53 Bed 19 Private MD: Ambrosio Raymundo ED Physician Alex Donis HPI: 03/23 11:09 This 62 yrs old Female presents to ER via Ambulatory with complaints of Wound kav Check. 11:09 Patient presents to ED for recheck of: laceration. The affected area is on the lateral kav side of left heel. 11:10 Progress: The patient reports wound is open and there is no drainage or odor noted at kav wound site. . patient reports recent surgery left heel for dx : left heel fracture with a non-healing wound. she was supposed to start outpatient wound care this week but was unable to start wound care r/t no physician available. Historical: - Allergies: 11:48 NKDA; em - PMHx: 11:48 Diabetes - NIDDM; ESRD; Hyperlipidemia; Hypertension; kidney transplant; em - Immunization history:: Adult Immunizations up to date. - Family history:: not pertinent. - Social history:: Smoking status: Patient/guardian denies using tobacco. - Ebola Screening: : Patient negative for fever greater than or equal to 101.5 degrees Fahrenheit, and additional compatible Ebola Virus Disease symptoms Patient denies exposure to infectious person Patient denies travel to an Ebola-affected area in the 21 days before illness onset No symptoms or risks identified at this time. - Hospitalizations: : No recent hospitalization is reported. - History obtained from: daughter. ROS: 11:13 Constitutional: Negative for fever, chills, and weight loss, Eyes: Negative for injury, kav pain, redness, and discharge, ENT: Negative for injury, pain, and discharge, Neck: Negative for injury, pain, and swelling, Cardiovascular: Negative for chest pain, palpitations, and edema, Respiratory: Negative for shortness of breath, cough, wheezing, and pleuritic chest pain, Abdomen/GI: Negative for abdominal pain, nausea, vomiting, diarrhea, and constipation, Back: Negative for injury and pain, : Negative for injury, bleeding, discharge, and swelling, MS/Extremity: Negative for injury and deformity, Neuro: Negative for headache, weakness, numbness, tingling, and seizure, Psych: Negative for depression, anxiety, suicide ideation, homicidal ideation, and hallucinations, Allergy/Immunology: Negative for hives, rash, and allergies, Endocrine: Negative for neck swelling, polydipsia, polyuria, polyphagia, and marked weight changes, Hematologic/Lymphatic: Negative for swollen nodes, abnormal bleeding, and unusual bruising. 11:13 Skin: Positive for laceration(s), non-healing laceration left heel. Exam: 11:13 Constitutional: This is a well developed, well nourished patient who is awake, alert, kav and in no acute distress. Head/Face: Normocephalic, atraumatic. Eyes: Pupils equal round and reactive to light, extra-ocular motions intact. Lids and lashes normal. Conjunctiva and sclera are non-icteric and not injected. Cornea within normal limits. Periorbital areas with no swelling, redness, or edema. ENT: Nares patent. No nasal discharge, no septal abnormalities noted. Tympanic membranes are normal and external auditory canals are clear. Oropharynx with no redness, swelling, or masses, exudates, or evidence of obstruction, uvula midline. Mucous membranes moist. Neck: Trachea midline, no thyromegaly or masses palpated, and no cervical lymphadenopathy. Supple, full range of motion without nuchal rigidity, or vertebral point tenderness. No Meningismus. Chest/axilla: Normal chest wall appearance and motion. Nontender with no deformity. No lesions are appreciated. Cardiovascular: Regular rate and rhythm with a normal S1 and S2. No gallops, murmurs, or rubs. Normal PMI, no JVD. No pulse deficits. Respiratory: Lungs have equal breath sounds bilaterally, clear to auscultation and percussion. No rales, rhonchi or wheezes noted. No increased work of breathing, no retractions or nasal flaring. Abdomen/GI: Soft, non-tender, with normal bowel sounds. No distension or tympany. No guarding or rebound. No evidence of tenderness throughout. Back: No spinal tenderness. No costovertebral tenderness. Full range of motion. MS/ Extremity: Pulses equal, no cyanosis. Neurovascular intact. Full, normal range of motion. Neuro: Awake and alert, GCS 15, oriented to person, place, time, and situation. Cranial nerves II-XII grossly intact. Motor strength 5/5 in all extremities. Sensory grossly intact. Cerebellar exam normal. Normal gait. Psych: Awake, alert, with orientation to person, place and time. Behavior, mood, and affect are within normal limits. 11:13 Skin: Wound recheck: laceration wound that is non-healing left heel. Vital Signs: 11:05 BP 138 / 69; Pulse 74; Resp 16; Temp 97.6; Pulse Ox 99% on R/A; Pain 3/10; sg MDM: 11:03 Medical screening is not applicable. ka 11:13 Differential diagnosis: cellulitis, non-healing wound. Data reviewed: vital signs, kav nurses notes. Administered Medications: No medications were administered Disposition: 03/23/18 11:17 Discharged to Home. Impression: Wound Check of Left Heel, Diabetes Mellitus. - Condition is Stable. - Discharge Instructions: Delayed Wound Closure, Wound Check. - Medication Reconciliation Form, Thank You Letter form. - Follow up: Private Physician; When: 5 - 6 days; Reason: Wound Recheck, Recheck today's complaints, Continuance of care, Re-evaluation by your physician. - Problem is new. - Symptoms have improved. - Notes: Please discuss with you physician: LLE Arterial Doppler Study \T\amp; Hyperbaric Oxygen Therapy Addendum: 03/25/2018 08:03 Co-signature as Attending Physician, Alex Donis MD I agree with the assessment and w a plan of care. Signatures: Geni Collins, BUSINESS PROCESS ASSOCIATE BUSINESS PROCESS ASSOCIATE Andres Moreno, IAP DISPLAYS ANALYST IAP DISPLAYS ANALYST em Alex Donis MD MD ms Corrections: (The following items were deleted from the chart) 03/23 11:52 11:17 03/23/2018 11:17 Discharged to Home. Impression: Wound Check of Left Heel; em Diabetes Mellitus. Condition is Stable. Forms are Medication Reconciliation Form, Thank You Letter, Antibiotic Education, Prescription Opioid Use. Follow up: Private Physician; When: 5 - 6 days; Reason: Wound Recheck, Recheck today's complaints, Continuance of care, Re-evaluation by your physician. Problem is new. Symptoms have improved. kav
[2018-03-23 11:56] VITALS: BP 138/69; TEMP 97.6; O2SAT 99
== END 2018-03-23 11:52 | disposition home or self-care (01) ==
LOC: ER 10:49
DX: S91.312A Laceration without foreign body, left foot, initial encounter (principal); E11.22 Type 2 diabetes mellitus with diabetic chronic kidney disease; I12.0 Hypertensive chronic kidney disease with stage 5 chronic kidney disease or end stage renal disease; N18.6 End stage renal disease; Z94.0 Kidney transplant status
CPT/HCPCS: 99283

== ENCOUNTER 2018-08-13 10:06 | Emergency (ER) | payer OTHER ==
--- OUTSIDE RECORDS SUMMARY | 2018-08-13 10:09 | XMS REPORT | Clinical Summary ---
:1955 Author Organization [facility] Address [address] [place] [address] Care Team Providers Name Role Phone Regan Fernandez MD Primary Care Provider Allergies No Known Allergies Medications Medication Sig Dispensed Refills Start Date End Date Status tacrolimus (PROGRAF) Take 1 mg by mouth 2 0 Active 1 MG capsule (two) times daily. mycophenolate Take by mouth 2 0 Active (CELLCEPT) 500 mg (two) times daily. tablet predniSONE Take 5 mg by mouth 0 Active (DELTASONE) 5 MG daily. tablet amLODIPine (NORVASC) Take 10 mg by mouth 0 Active 10 MG tablet daily. losartan (COZAAR) 50 Take 50 mg by mouth 0 Active MG tablet daily. cloNIDine HCl Take 0.1 mg by mouth 0 Active (CATAPRES) 0.1 MG 3 (three) times tablet daily. omeprazole Take 40 mg by mouth 0 Active (PRILOSEC) 40 MG daily. capsule simvastatin (ZOCOR) Take 20 mg by mouth 0 Active 20 MG tablet nightly. calcitriol Take 0.25 mcg by 0 Active (ROCALTROL) 0.25 MCG mouth daily. capsule alendronate Take 70 mg by mouth 0 Active (FOSAMAX) 70 MG every 7 days Take in tablet the morning with a full glass of water, on an empty stomach, and do not take anything else by mouth or lie down for the next 30 min. . gabapentin Take 100 mg by mouth 0 Active (NEURONTIN) 100 MG 3 (three) times capsule daily. insulin NPH 100 Inject 22 Units 0 Active unit/mL (3 mL) InPn subcutaneously every morning before breakfast . insulin aspart Inject 8 Units 0 Active (NOVOLOG) 100 subcutaneously 2 unit/mL injection (two) times daily as needed Only gives herself insulin fo BS above 100 - 8 units. insulin NPH 100 Inject 4 Units 0 Active unit/mL (3 mL) InPn subcutaneously 2 (two) times daily Every NOON and every NIGHT . Active Problems Problem Noted Date Renal mass 11/23/2016 Renal mass, right 11/23/2016 Distal radius fracture, left 01/03/2015 Social History Tobacco Use Types Packs/Day Years Used Date Never Smoker Smokeless Tobacco: Never Used Alcohol Use Drinks/Week oz/Week Comments No Sex Assigned at Date Recorded Not on file Job Start Date Occupation Industry Not on file Not on file Not on file Travel History Travel Start Travel End No recent travel history available. 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 Shelf Model / Identifier Expiration Serial / Date Lot Plate,Volar Dist Rad Va-Lcp 2-Clmn 2.4mm Ti 6h Hd/2h Shaft Lt - [id number] Fracture/F Left: Wrist [employer] [id number] / Implanted: Qty: 1 on 01/03/2015 by Gabby Serrano MD ixation / [id number] Screw,Locking Stardrive Ti Va 2.4x20mm - [id number] Fracture/F [employer] [id number] / Implanted: Qty: 4 on 01/03/2015 by Gabby Serrano MD ixation / Screw,Cortex Ti Selftap 2.7x14 - [id number] Fracture/F SYNTHES TRUMA [id number] / Implanted: Qty: 2 on 01/03/2015 by Gabby Serrano MD ixation / Tiss Live Frm Strtce 6x16cm - Sn/A Tissue Right: LIFE[employer] 02/28/2018 [id number] / Implanted: Qty: 1 on 11/23/2016 by Giovanni Naik MD Graft/Subs Abdomen N/A / titute [id number] Results Not on fileafter 08/12/2017 Insurance Payer Benefit Plan / Group Subscriber ID Type Phone Address CARE IMPROVEMENT MEDICARE CARE IMPROVEMENT PLUS xxxxxxxxx MGD CARE MEDICAID MEDICAID OF [place] xxxxxxxxx Medicaid Advance Directives For more information, please contact:[address] [phone] Code Status Date Activated Date Inactivated Comments Full Code 11/23/2016 9:56 PM 11/26/2016 1:41 PM This code status was determined by: Patient Full Code 01/03/2015 8:00 AM 01/03/2015 3:23 PM This code status was determined by: Patient
--- OUTSIDE RECORDS SUMMARY | 2018-08-13 10:10 | XMS REPORT ---
:1955 Author Organization [facility] Address [address] [place], [place] [address]karina Dior [address] [place] [address] Care Team Providers Name Role Phone PATEL [...] Comments LAB AP CPT CODE (BEAKER) (test aldh=8075) [id number] TACROLIMUS [id number] 09:09:00 Test Item Value Reference Range Comments TACROLIMUS BLOOD (BEAKER) (test ftyp=939) 6.8 ng/mL 10.0-20.0 POCT-GLUCOSE [id number] 07:33:00 Test Item Value Reference Range Comments POC-GLUCOSE METER (BEAKER) 138 mg/dL 70-110 TESTED AT [facility] [address] [facility] (test hzaz=9121) [facility] [address] BASIC METABOLIC [id number] 05:08:00 Test Item Value Reference Range Comments SODIUM (BEAKER) (test 139 meq/L 136-145 njmp=683) POTASSIUM (BEAKER) (test 4.7 meq/L 3.5-5.1 sjfb=654) CHLORIDE (BEAKER) (test 109 meq/L 98-107 yjdf=082) CO2 (BEAKER) (test 23 meq/L 22-29 uiuk=582) BLOOD UREA NITROGEN 21 mg/dL 7-21 (BEAKER) (test jkll=745) CREATININE (BEAKER) (test 1.08 mg/dL 0.57-1.25 seud=364) GLUCOSE RANDOM (BEAKER) 93 mg/dL 70-105 (test niei=488) CALCIUM (BEAKER) (test 8.8 mg/dL 8.4-10.2 twsg=526) EGFR (BEAKER) (test 52 mL/min/1.73 sq m ESTIMATED GFR IS NOT kuso=0607) ACCURATE CREATININE CLEARANCE IN PREDICTING GLOMERULAR FILTRATION RATE. ESTIMATED GFR IS NOT APPLICABLE FOR DIALYSIS PATIENTS. CBC W/PLT COUNT & AUTO [id number] 04:51:00 Test Item Value Reference Range Comments WHITE BLOOD CELL COUNT (BEAKER) (test jcfh=281) 4.1 K/ L 4.0-10.0 RED BLOOD CELL COUNT (BEAKER) (test jlgc=801) 3.47 M/ L 4.00-5.00 HEMOGLOBIN (BEAKER) (test obax=829) 11.0 GM/DL 12.0-15.0 HEMATOCRIT (BEAKER) (test yiml=095) 34.1 % 36.0-45.0 MEAN CORPUSCULAR VOLUME (BEAKER) (test dags=440) 98.3 fL 82.0-99.0 MEAN CORPUSCULAR HEMOGLOBIN (BEAKER) (test 31.6 pg 27.0-33.0 zccc=629) MEAN CORPUSCULAR HEMOGLOBIN CONC (BEAKER) (test 32.1 GM/DL 32.0-36.0 ugwk=619) RED CELL DISTRIBUTION WIDTH (BEAKER) (test 11.9 % 10.3-14.2 igxr=526) PLATELET COUNT (BEAKER) (test ncsz=931) 148 K/CU MM 150-430 MEAN PLATELET VOLUME (BEAKER) (test qfwm=415) 8.3 fL 6.5-10.5 NUCLEATED RED BLOOD CELLS (BEAKER) (test 0 /100 WBC 0-0 xwgu=126) NEUTROPHILS RELATIVE PERCENT (BEAKER) (test 77 % ybiu=793) LYMPHOCYTES RELATIVE PERCENT (BEAKER) (test 11 % lmbl=254) MONOCYTES RELATIVE PERCENT (BEAKER) (test 12 % pplp=585) EOSINOPHILS RELATIVE PERCENT (BEAKER) (test 1 % szlr=031) BASOPHILS RELATIVE PERCENT (BEAKER) (test 0 % asgh=259) NEUTROPHILS ABSOLUTE COUNT (BEAKER) (test 3.17 K/ L 1.80-8.00 sdzi=630) LYMPHOCYTES ABSOLUTE COUNT (BEAKER) (test 0.45 K/ L 1.48-4.50 celb=122) MONOCYTES ABSOLUTE COUNT (BEAKER) (test 0.50 K/ L 0.00-1.30 loxs=233) EOSINOPHILS ABSOLUTE COUNT (BEAKER) (test 0.02 K/ L 0.00-0.50 hvat=308) BASOPHILS ABSOLUTE COUNT (BEAKER) (test 0.00 K/ L 0.00-0.20 cxbn=028) 0.00POCT-GLUCOSE [id number] 01:09:00 Test Item Value Reference Range Comments POC-GLUCOSE METER (BEAKER) 97 mg/dL 70-110 TESTED AT [address] (test sddl=9780) [facility] [address] POCT-GLUCOSE [id number] 21:30:00 Test Item Value Reference Range Comments POC-GLUCOSE METER (BEAKER) 424 mg/dL 70-110 Notified BO PILLAI/TESTED AT [facility] (test yejh=9357) [address] [place] [address] POCT-GLUCOSE [id number] 17:04:00 Test Item Value Reference Range Comments POC-GLUCOSE METER (BEAKER) 198 mg/dL 70-110 TESTED AT [address] (test xlmn=0449) [place] [id number] POCT-GLUCOSE [id number] 12:51:00 Test Item Value Reference Range Comments POC-GLUCOSE METER (BEAKER) 205 mg/dL 70-110 TESTED AT [address] (test lfzr=6565) [place] [address] TACROLIMUS [id number] 12:35:00 Test Item Value Reference Range Comments TACROLIMUS BLOOD (BEAKER) (test jjoh=187) 5.9 ng/mL 10.0-20.0 POCT-GLUCOSE [id number] 08:32:00 Test Item Value Reference Range Comments POC-GLUCOSE METER (BEAKER) 60 mg/dL 70-110 TESTED AT [address] (test ijbv=8788) [facility] [address] POCT-GLUCOSE [id number] 21:41:00 Test Item Value Reference Range Comments POC-GLUCOSE METER (BEAKER) 202 mg/dL 70-110 TESTED AT [address] (test wnbd=6848) [facility] [address] POCT-GLUCOSE [id number] 17:36:00 Test Item Value Reference Range Comments POC-GLUCOSE METER (BEAKER) 191 mg/dL 70-110 TESTED AT [address] (test mggr=4463) [place] [id number] POCT-GLUCOSE [id number] 11:01:00 Test Item Value Reference Range Comments POC-GLUCOSE METER (BEAKER) 232 mg/dL 70-110 TESTED AT [address] (test bgne=6527) [place] [address] TACROLIMUS [id number] 10:16:00 Test Item Value Reference Range Comments TACROLIMUS BLOOD (BEAKER) (test yump=712) 8.3 ng/mL 10.0-20.0 POCT-GLUCOSE [id number] 08:16:00 Test Item Value Reference Range Comments POC-GLUCOSE METER (BEAKER) 366 mg/dL 70-110 TESTED AT [address] (test ikkm=3709) [place] [address] BASIC METABOLIC [id number] 06:57:00 Test Item Value Reference Range Comments SODIUM (BEAKER) (test 138 meq/L 136-145 tqmu=374) POTASSIUM (BEAKER) (test 5.1 meq/L 3.5-5.1 kpbl=762) CHLORIDE (BEAKER) (test 108 meq/L 98-107 rwwo=507) CO2 (BEAKER) (test 22 meq/L 22-29 kueu=832) BLOOD UREA NITROGEN 26 mg/dL 7-21 (BEAKER) (test dwyg=265) CREATININE (BEAKER) (test 1.38 mg/dL 0.57-1.25 xneh=788) GLUCOSE RANDOM (BEAKER) 271 mg/dL 70-105 (test hhem=559) CALCIUM (BEAKER) (test 8.2 mg/dL 8.4-10.2 vous=899) EGFR (BEAKER) (test 39 mL/min/1.73 sq m ESTIMATED GFR IS NOT izgm=9692) ACCURATE CREATININE CLEARANCE IN PREDICTING GLOMERULAR FILTRATION RATE. ESTIMATED GFR IS NOT APPLICABLE FOR DIALYSIS PATIENTS. HEMOGLOBIN AND [id number] 06:40:00 Test Item Value Reference Range Comments HEMOGLOBIN (BEAKER) (test yotm=068) 11.4 GM/DL 12.0-15.0 HEMATOCRIT (BEAKER) (test yvji=184) 36.1 % 36.0-45.0 POCT-GLUCOSE [id number] 23:30:00 Test Item Value Reference Range Comments POC-GLUCOSE METER (BEAKER) 274 mg/dL 70-110 TESTED AT [facility] [address] (test ynql=0951) [facility] [address] BASIC METABOLIC [id number] 18:49:00 Test Item Value Reference Range Comments SODIUM (BEAKER) (test 142 meq/L 136-145 onez=561) POTASSIUM (BEAKER) (test 4.2 meq/L 3.5-5.1 pgsl=579) CHLORIDE (BEAKER) (test 114 meq/L 98-107 xeqh=800) CO2 (BEAKER) (test 20 meq/L 22-29 dgof=280) BLOOD UREA NITROGEN 28 mg/dL 7-21 (BEAKER) (test tkov=854) CREATININE (BEAKER) (test 1.36 mg/dL 0.57-1.25 fuau=937) GLUCOSE RANDOM (BEAKER) 177 mg/dL 70-105 (test ykxm=671) CALCIUM (BEAKER) (test 8.3 mg/dL 8.4-10.2 eucs=538) EGFR (BEAKER) (test 40 mL/min/1.73 sq m ESTIMATED GFR IS NOT sbgt=4453) ACCURATE CREATININE CLEARANCE IN PREDICTING GLOMERULAR FILTRATION RATE. ESTIMATED GFR IS NOT APPLICABLE FOR DIALYSIS PATIENTS. HEMOGLOBIN AND [id number] 18:35:00 Test Item Value Reference Range Comments HEMOGLOBIN (BEAKER) (test mbyw=963) 11.5 GM/DL 12.0-15.0 HEMATOCRIT (BEAKER) (test swyw=422) 35.6 % 36.0-45.0 BASIC METABOLIC [id number] 12:08:00 Test Item Value Reference Range Comments SODIUM (BEAKER) (test 140 meq/L 136-145 mfmn=037) POTASSIUM (BEAKER) (test 4.4 meq/L 3.5-5.1 prst=899) CHLORIDE (BEAKER) (test 106 meq/L 98-107 klee=781) CO2 (BEAKER) (test 23 meq/L 22-29 fjfm=994) BLOOD UREA NITROGEN 35 mg/dL 7-21 (BEAKER) (test lzbn=138) CREATININE (BEAKER) (test 1.47 mg/dL 0.57-1.25 fknu=467) GLUCOSE RANDOM (BEAKER) 69 mg/dL 70-105 (test qcwr=117) CALCIUM (BEAKER) (test 9.9 mg/dL 8.4-10.2 awoh=664) EGFR (BEAKER) (test 36 mL/min/1.73 sq m ESTIMATED GFR IS NOT ybss=1000) ACCURATE CREATININE CLEARANCE IN PREDICTING GLOMERULAR FILTRATION RATE. ESTIMATED GFR IS NOT APPLICABLE FOR DIALYSIS PATIENTS. CBC (HEMOGRAM ONLY)[id number] 12:01:00 Test Item Value Reference Range Comments WHITE BLOOD CELL COUNT (BEAKER) (test vrbr=549) 6.0 K/ L 4.0-10.0 RED BLOOD CELL COUNT (BEAKER) (test pfhs=418) 3.84 M/ L 4.00-5.00 HEMOGLOBIN (BEAKER) (test rqao=800) 12.0 GM/DL 12.0-15.0 HEMATOCRIT (BEAKER) (test clrv=084) 37.4 % 36.0-45.0 MEAN CORPUSCULAR VOLUME (BEAKER) (test pptu=712) 97.3 fL 82.0-99.0 MEAN CORPUSCULAR HEMOGLOBIN (BEAKER) (test 31.3 pg 27.0-33.0 imxd=471) MEAN CORPUSCULAR HEMOGLOBIN CONC (BEAKER) (test 32.2 GM/DL 32.0-36.0 dpvu=513) RED CELL DISTRIBUTION WIDTH (BEAKER) (test 11.8 % 10.3-14.2 kwcm=685) PLATELET COUNT (BEAKER) (test imkn=883) 183 K/CU MM 150-430 MEAN PLATELET VOLUME (BEAKER) (test bokg=558) 8.3 fL 6.5-10.5 NUCLEATED RED BLOOD CELLS (BEAKER) (test 0 /100 WBC 0-0 qoee=845) 0.00POTASSIUM-STAT [id number] 11:43:00 Test Item Value Reference Range Comments POTASSIUM (BEAKER) (test dccf=272) 4.3 meq/L 3.6-5.5 POCT-GLUCOSE [id number] 11:34:00 Test Item Value Reference Range Comments POC-GLUCOSE METER (BEAKER) 82 mg/dL 70-110 TESTED AT [facility] [address] [facility] (test vxtj=5532) [facility] [address] URINE [id number] 11:19:00 Test Item Value Reference Range Comments CULTURE (BEAKER) (test 20-29,000 col/mL skin tea htqs=2063) URINALYSIS W/ [id number] 15:16:00 Test Item Value Reference Range Comments COLOR (BEAKER) (test qdir=539) Yellow CLARITY (BEAKER) (test mheg=443) Clear SPECIFIC GRAVITY UA (BEAKER) (test nbbu=105) 1.013 1.001-1.035 PH UA (BEAKER) (test bvyk=606) 6.0 5.0-8.0 PROTEIN UA (BEAKER) (test ocle=034) Negative Negative GLUCOSE UA (BEAKER) (test mrmz=323) 30 mg/dL Negative KETONES UA (BEAKER) (test qxck=397) Negative Negative BILIRUBIN UA (BEAKER) (test xkdt=874) Negative Negative BLOOD UA (BEAKER) (test fzon=807) Negative Negative NITRITE UA (BEAKER) (test gvzu=823) Negative Negative LEUKOCYTE ESTERASE UA (BEAKER) (test vebi=966) Trace Negative UROBILINOGEN UA (BEAKER) (test ehzy=275) 0.2 mg/dL 0.2-1.0 RBC UA (BEAKER) (test njpp=079) < /HPF WBC UA (BEAKER) (test riil=702) < /HPF SQUAMOUS EPITHELIAL (BEAKER) (test luoy=514) < /HPF SOURCE(BEAKER) (test rxag=0215) CBC W/PLT COUNT & AUTO [id number] 14:56:00 Test Item Value Reference Range Comments WHITE BLOOD CELL COUNT (BEAKER) (test dqgc=077) 4.2 K/ L 4.0-10.0 RED BLOOD CELL COUNT (BEAKER) (test jcmz=413) 3.68 M/ L 4.00-5.00 HEMOGLOBIN (BEAKER) (test rbsv=859) 11.6 GM/DL 12.0-15.0 HEMATOCRIT (BEAKER) (test zqjw=650) 36.4 % 36.0-45.0 MEAN CORPUSCULAR VOLUME (BEAKER) (test treu=243) 98.8 fL 82.0-99.0 MEAN CORPUSCULAR HEMOGLOBIN (BEAKER) (test 31.4 pg 27.0-33.0 ovai=883) MEAN CORPUSCULAR HEMOGLOBIN CONC (BEAKER) (test 31.8 GM/DL 32.0-36.0 rgdl=249) RED CELL DISTRIBUTION WIDTH (BEAKER) (test 12.8 % 10.3-14.2 vsel=135) PLATELET COUNT (BEAKER) (test jbid=298) 167 K/CU MM 150-430 MEAN PLATELET VOLUME (BEAKER) (test cakk=353) 8.4 fL 6.5-10.5 NUCLEATED RED BLOOD CELLS (BEAKER) (test 0 /100 WBC 0-0 izxn=885) NEUTROPHILS RELATIVE PERCENT (BEAKER) (test 87 % rjpy=781) LYMPHOCYTES RELATIVE PERCENT (BEAKER) (test 8 % uixs=032) MONOCYTES RELATIVE PERCENT (BEAKER) (test 5 % ollq=684) EOSINOPHILS RELATIVE PERCENT (BEAKER) (test 0 % odjm=699) BASOPHILS RELATIVE PERCENT (BEAKER) (test 0 % frjm=239) NEUTROPHILS ABSOLUTE COUNT (BEAKER) (test 3.68 K/ L 1.80-8.00 kucr=911) LYMPHOCYTES ABSOLUTE COUNT (BEAKER) (test 0.32 K/ L 1.48-4.50 uxed=046) MONOCYTES ABSOLUTE COUNT (BEAKER) (test 0.20 K/ L 0.00-1.30 qtty=225) EOSINOPHILS ABSOLUTE COUNT (BEAKER) (test 0.01 K/ L 0.00-0.50 ijpv=277) BASOPHILS ABSOLUTE COUNT (BEAKER) (test 0.00 K/ L 0.00-0.20 qsuq=505) 0.00[facility] METABOLIC [id number] 14:55:00 Test Item Value Reference Range Comments SODIUM (BEAKER) (test 140 meq/L 136-145 lttw=881) POTASSIUM (BEAKER) (test 5.3 meq/L 3.5-5.1 Specimen slightly hkyr=036) hemolyzed CHLORIDE (BEAKER) (test 108 meq/L 98-107 xftd=295) CO2 (BEAKER) (test 22 meq/L 22-29 swwx=463) BLOOD UREA NITROGEN 28 mg/dL 7-21 (BEAKER) (test oyqc=758) CREATININE (BEAKER) (test 1.61 mg/dL 0.57-1.25 Specimen slightly ecrz=913) hemolyzed GLUCOSE RANDOM (BEAKER) 209 mg/dL 70-105 (test pain=522) CALCIUM (BEAKER) (test 9.3 mg/dL 8.4-10.2 ccmm=057) EGFR (BEAKER) (test 33 mL/min/1.73 sq m ESTIMATED GFR IS NOT iyqg=7774) ACCURATE CREATININE CLEARANCE IN PREDICTING GLOMERULAR FILTRATION RATE. ESTIMATED GFR IS NOT APPLICABLE FOR DIALYSIS PATIENTS. [id number] 14:51:00 Test Item Value Reference Range Comments PARTIAL THROMBOPLASTIN TIME (BEAKER) (test 30.7 seconds 22.5-36.0 pzbi=[id number]) PROTHROMBIN TIME/[id number] 14:50:00 Test Item Value Reference Range Comments PROTIME (BEAKER) (test cxqc=[id number]) 14.3 seconds 11.7-14.7 INR (BEAKER) (test nxvx=559) 1.1 <=5.9 RECOMMENDED COUMADIN/WARFARIN INR THERAPY RANGESSTANDARD DOSE: 2.0 - 3.0 Includes: PROPHYLAXIS forvenous thrombosis, systemic embolization; TREATMENT for venous thrombosis and/or pulmonary embolus.HIGH RISK: Target INR is 2.5-3.5 for patients with mechanical heart valves.
--- NOTE | 2018-08-13 11:17 | RAD REPORT ---
EXAM DESCRIPTION: RAD - Chest Pa And Lat (2 Views) - 08/13/2018 10:56 am CLINICAL HISTORY: Cough;Congestion Chest pain. COMPARISON: Chest Single View dated 10/25/2017; CHEST PA AND LAT 2 VIEW dated 10/19/2015 FINDINGS: The lungs are mildly emphysematous but clear. The heart is normal in size. No displaced fr actures. IMPRESSION: Mild COPD.
[2018-08-13] MEDS ORDERED: HYDROCODONE/CHLORPHEN 5 ML/OSYR ONE (12:16)
--- NOTE | 2018-08-13 12:20 | ER ---
Nurse's Notes [facility] Name: Paola Mishra Age: 62 yrs Sex: Female : 1955 Arrival Date: 08/13/2018 Time: 10:08 Bed 14 Private MD: Ambrosio Raymundo Diagnosis: Cough Presentation: 08/13 10:20 Presenting complaint: Patient states: "I have pain in my back and my chest and coughing aj1 and I've been tired" Patient denies fever, reports that she has been feeling sick for the 2 weeks. She was her PHCP on the and was given an Rx for azithromycin and benzonatate, but it has not helped her. Patient also reports shortness of breath. Transition of care: patient was not received from another setting of care. Onset of symptoms was August 01, 2017. Risk Assessment: Do you want to hurt yourself or someone else? Patient reports no desire to harm self or others. Initial Sepsis Screen: Does the patient meet any 2 criteria? No. Patient's initial sepsis screen is negative. Does the patient have a suspected source of infection? Yes: Productive cough/pneumonia. Care prior to arrival: None. 10:20 Method Of Arrival: Wheelchair aj1 10:20 Acuity: NOHELIA 3 aj1 Triage Assessment: 10:25 General: Appears in no apparent distress. uncomfortable, Behavior is calm, cooperative, aj1 appropriate for age. Pain: Complains of pain in thoracic area and mid-sternal area Pain currently is 7 out of 10 on a pain scale. Neuro: Level of Consciousness is awake, alert, obeys commands. Cardiovascular: Reports chest pain, shortness of breath, Patient's skin is warm and dry. Respiratory: Reports shortness of breath cough that is productive, Airway is patent Respiratory effort is even, unlabored, Respiratory pattern is regular, symmetrical. Historical: - Allergies: 10:25 NKDA; aj1 - Home Meds: 10:25 amlodipine 10 mg tab 1 tab once daily for Hypertension [Active]; calcitrol 0.25 mcg 2 aj1 cap daily [Active]; clonidine HCl 0.1 mg Oral tab 1 tab 3 times per day for Hypertension [Active]; gabapentin 100 mg Oral tab [Active]; losartan 100 mg Oral tab 1 tab once daily for Hypertension [Active]; losartan 100 mg Oral tab 1 tab once daily [Active]; Lyrica Oral 1 cap 2 times per day [Active]; mycophenolate mofetil 500 mg Oral tab 1 tabs 2 times per day for Prevention of Kidney Transplant Rejection [Active]; omeprazole 40 mg Oral cpDR 1 cap once daily [Active]; prednisone 5 mg Oral tab 1 tab once daily [Active]; Prograf 1 mg Oral tab every 12 hours [Active]; promethazine 25 mg Oral tab 1 tab every 8 hours [Active]; simvastatin 20 mg Oral tab 1 tab once daily [Active]; - PMHx: 10:25 Diabetes - NIDDM; ESRD; no longer does dialysis, recieved kidney transplant; aj1 Hyperlipidemia; Hypertension; kidney transplant; - PSHx: 10:35 kidney transplant; left foot; rb1 - Immunization history:: Flu vaccine is up to date. - Social history:: Smoking status: Patient/guardian denies using tobacco. - Ebola Screening: : Patient denies travel to an Ebola-affected area in the 21 days before illness onset. Screenin:35 Abuse screen: Denies threats or abuse. Nutritional screening: No deficits noted. rb1 Tuberculosis screening: No symptoms or risk factors identified. Fall Risk None identified. Assessment: 10:35 General: Appears uncomfortable, Behavior is calm, cooperative, Reports feeling ill for rb1 fatigue for x 2 weeks. Denies fever. Pain: Complains of pain in chest and back. Neuro: Level of Consciousness is awake, alert, obeys commands, Oriented to person, place, time, situation. Cardiovascular: Capillary refill < 3 seconds is brisk in bilateral fingers. Respiratory: Reports cough that is pain with cough Airway is patent Respiratory effort is even, unlabored, Respiratory pattern is regular, symmetrical. : No signs and/or symptoms were reported regarding the genitourinary system. Derm: Skin is pink, warm \\T\\ dry. Musculoskeletal: Range of motion: intact in all extremities. 10:35 Respiratory: Reports shortness of breath. rb1 11:35 Reassessment: Patient appears in no apparent distress at this time. Patient and/or rb1 family updated on plan of care and expected duration. Pain level reassessed. Patient is alert, oriented x 3, equal unlabored respirations, skin warm/dry/pink. 12:30 Reassessment: Patient appears in no apparent distress at this time. No changes from rb1 previously documented assessment. at bedside. Vital Signs: 10:25 BP 122 / 78; Pulse 77; Resp 18; Temp 98.2; Pulse Ox 99% on R/A; Weight 54.43 kg; Pain aj1 7; 11:20 BP 137 / 71; Pulse 69; Resp 17; Pulse Ox 99% on R/A; rb1 12:09 BP 141 / 69; Pulse 72; Resp 17; Pulse Ox 100% ; rb1 ED Course: 10:08 Patient arrived in ED. sb2 10:08 Ambrosio Raymundo DO is Private Physician. sb2 10:21 Stephie Reyes FNP-C is [facility]. kb 10:21 Rusty Cohen MD is Attending Physician. kb 10:24 Triage completed. aj1 10:25 Arm band placed on Patient placed in an exam room. aj1 10:32 Letitia Wong, RN is Primary Nurse. rb1 10:35 Patient has correct armband on for positive identification. Bed in low position. Call rb1 light in reach. Side rails up X 1. Pulse ox on. NIBP on. 10:47 Flu and/or RSV swab sent to lab. dh3 10:53 Chest Pa And Lat (2 Views) XRAY In Process Unspecified. EDMS 11:56 Urine collected: clean catch specimen, clear. dh3 12:39 No provider procedures requiring assistance completed. Patient did not have IV access rb1 during this emergency room visit. Administered Medications: 12:08 Drug: Tussionex Pennkinetic ER 5 ml Route: PO; rb1 12:30 Follow up: Response: No adverse reaction rb1 Outcome: 12:19 Discharge ordered by MD. kb 12:39 Discharged to home via wheelchair, with significant other. rb1 12:39 Condition: stable 12:39 Discharge instructions given to patient, Instructed on discharge instructions, follow up and referral plans. Demonstrated understanding of instructions, follow-up care, Prescriptions given X none 12:39 Patient left the ED. rb1 Signatures: Dispatcher [employer] EDMS Stephie Reyes FNP-C FNP-Cassy Harmon RN RN aj1 Letitia Wong, RN RN rb1 Yessenia Enamorado 3 Lorna Talley sb2 Corrections: (The following items were deleted from the chart) 14:00 13:59 Patient left the ED. rb1 rb1
--- NOTE | 2018-08-13 12:20 | EDPHYS ---
Physician Documentation [facility] Name: Paola Mishra Age: 62 yrs Sex: Female : 1955 Arrival Date: 08/13/2018 Time: 10:08 Bed 14 Private MD: Ambrosio Raymundo ED Physician Rusty Cohen HPI: 08/13 11:28 This 62 yrs old Female presents to ER via Wheelchair with complaints of Flu kb Symptoms. 11:28 The patient or guardian reports cough, that is intermittent, described as moderate, kb with no sputum, flu symptoms, myalgias. Onset: The symptoms/episode began/occurred 1 week(s) ago. Severity of symptoms: At their worst the symptoms were mild, moderate, in the emergency department the symptoms are unchanged. Modifying factors: The symptoms are alleviated by nothing, the symptoms are aggravated by nothing. Associated signs and symptoms: The patient has no apparent associated signs or symptoms. The patient has not experienced similar symptoms in the past. The patient has not recently seen a physician. Historical: - Allergies: 10:25 NKDA; aj1 - Home Meds: 10:25 amlodipine 10 mg tab 1 tab once daily for Hypertension [Active]; calcitrol 0.25 mcg 2 aj1 cap daily [Active]; clonidine HCl 0.1 mg Oral tab 1 tab 3 times per day for Hypertension [Active]; gabapentin 100 mg Oral tab [Active]; losartan 100 mg Oral tab 1 tab once daily for Hypertension [Active]; losartan 100 mg Oral tab 1 tab once daily [Active]; Lyrica Oral 1 cap 2 times per day [Active]; mycophenolate mofetil 500 mg Oral tab 1 tabs 2 times per day for Prevention of Kidney Transplant Rejection [Active]; omeprazole 40 mg Oral cpDR 1 cap once daily [Active]; prednisone 5 mg Oral tab 1 tab once daily [Active]; Prograf 1 mg Oral tab every 12 hours [Active]; promethazine 25 mg Oral tab 1 tab every 8 hours [Active]; simvastatin 20 mg Oral tab 1 tab once daily [Active]; - PMHx: 10:25 Diabetes - NIDDM; ESRD; no longer does dialysis, recieved kidney transplant; aj1 Hyperlipidemia; Hypertension; kidney transplant; - PSHx: 10:35 kidney transplant; left foot; rb1 - Immunization history:: Flu vaccine is up to date. - Social history:: Smoking status: Patient/guardian denies using tobacco. - Ebola Screening: : Patient denies travel to an Ebola-affected area in the 21 days before illness onset. ROS: 11:26 ENT: Negative for injury, pain, and discharge, Neck: Negative for injury, pain, and kb swelling, Cardiovascular: Negative for chest pain, palpitations, and edema, Abdomen/GI: Negative for abdominal pain, nausea, vomiting, diarrhea, and constipation, MS/Extremity: Negative for injury and deformity, Skin: Negative for injury, rash, and discoloration, Neuro: Negative for headache, weakness, numbness, tingling, and seizure. 11:26 Respiratory: Positive for cough, with no reported sputum, Negative for dyspnea on exertion, hemoptysis, orthopnea, pleurisy, shortness of breath, sputum production, wheezing. 11:26 Back: Positive for pain at rest, pain with movement. 11:27 Constitutional: Positive for fatigue, malaise, Negative for body aches, chills, fever, kb poor PO intake, weight loss. Exam: 11:27 Constitutional: This is a well developed, well nourished patient who is awake, alert, kb and in no acute distress. Head/Face: Normocephalic, atraumatic. ENT: Nares patent. No nasal discharge, no septal abnormalities noted. Tympanic membranes are normal and external auditory canals are clear. Oropharynx with no redness, swelling, or masses, exudates, or evidence of obstruction, uvula midline. Mucous membranes moist. Neck: Trachea midline, no thyromegaly or masses palpated, and no cervical lymphadenopathy. Supple, full range of motion without nuchal rigidity, or vertebral point tenderness. No Meningismus. Chest/axilla: Normal chest wall appearance and motion. Nontender with no deformity. No lesions are appreciated. Cardiovascular: Regular rate and rhythm with a normal S1 and S2. No gallops, murmurs, or rubs. Normal PMI, no JVD. No pulse deficits. Respiratory: Lungs have equal breath sounds bilaterally, clear to auscultation and percussion. No rales, rhonchi or wheezes noted. No increased work of breathing, no retractions or nasal flaring. Abdomen/GI: Soft, non-tender, with normal bowel sounds. No distension or tympany. No guarding or rebound. No evidence of tenderness throughout. Back: No spinal tenderness. No costovertebral tenderness. Full range of motion. Skin: Warm, dry with normal turgor. Normal color with no rashes, no lesions, and no evidence of cellulitis. MS/ Extremity: Pulses equal, no cyanosis. Neurovascular intact. Full, normal range of motion. Neuro: Awake and alert, GCS 15, oriented to person, place, time, and situation. Cranial nerves II-XII grossly intact. Motor strength 5/5 in all extremities. Sensory grossly intact. Cerebellar exam normal. Normal gait. Vital Signs: 10:25 BP 122 / 78; Pulse 77; Resp 18; Temp 98.2; Pulse Ox 99% on R/A; Weight 54.43 kg; Pain aj1 710; 11:20 BP 137 / 71; Pulse 69; Resp 17; Pulse Ox 99% on R/A; rb1 12:09 BP 141 / 69; Pulse 72; Resp 17; Pulse Ox 100% ; rb1 MDM: 10:28 Patient medically screened. kb 11:27 Data reviewed: vital signs, nurses notes. Data interpreted: Pulse oximetry: on room air kb is 99 %. Interpretation: normal. 12:18 Counseling: I had a detailed discussion with the patient and/or guardian regarding: the kb historical points, exam findings, and any diagnostic results supporting the discharge/admit diagnosis, lab results, radiology results, the need for outpatient follow up, a family practitioner, to return to the emergency department if symptoms worsen or persist or if there are any questions or concerns that arise at home. 08/13 10:25 Order name: Flu; Complete Time: 11:24 kb 08/13 12:03 Order name: Urine Dipstick--Ancillary (enter results) bd 08/13 10:25 Order name: Chest Pa And Lat (2 Views) XRAY; Complete Time: 11:24 kb 08/13 10:25 Order name: Urine Dipstick-Ancillary (obtain specimen); Complete Time: 11:57 kb 08/13 12:03 Order name: Urine --Ancillary (enter results) bd Administered Medications: 12:08 Drug: Tussionex Pennkinetic ER 5 ml Route: PO; rb1 12:30 Follow up: Response: No adverse reaction rb1 Disposition: 01/13/19 12:19 Discharged to Home. Impression: Cough. - Condition is Stable. - Discharge Instructions: Cough, Adult, [id number]. - Medication Reconciliation Form, Thank You Letter, Antibiotic Education, Prescription Opioid Use form. - Follow up: Emergency Department; When: As needed; Reason: Worsening of condition. Follow up: Private Physician; When: 2 - 3 days; Reason: Recheck today's complaints, Continuance of care, Re-evaluation by your physician. Addendum: 08/15/2018 10:22 Co-signature as Attending Physician, Rusty Cohen MD. g s Signatures: Dispatcher [employer] EDMS Stephie Reyes, CORPORATE SCHEDULER-C CORPORATE SCHEDULER-Ckb Cassy Lau, RN RN aj1 Letitia Wong, RN RN rb1 Rusty Cohen MD MD gs Corrections: (The following items were deleted from the chart) 08/13 11:27 11:26 Constitutional: Negative for fever, chills, and weight loss, ENT: Negative for kb injury, pain, and discharge, Neck: Negative for injury, pain, and swelling, Cardiovascular: Negative for chest pain, palpitations, and edema, Abdomen/GI: Negative for abdominal pain, nausea, vomiting, diarrhea, and constipation, MS/Extremity: Negative for injury and deformity, Skin: Negative for injury, rash, and discoloration, Neuro: Negative for headache, weakness, numbness, tingling, and seizure, kb 13:59 12:19 08/13/2018 12:19 Discharged to Home. Impression: Cough. Condition is Stable. rb1 Forms are Medication Reconciliation Form, Thank You Letter, Antibiotic Education, Prescription Opioid Use. Follow up: Emergency Department; When: As needed; Reason: Worsening of condition. Follow up: Private Physician; When: 2 - 3 days; Reason: Recheck today's complaints, Continuance of care, Re-evaluation by your physician. kb
[2018-08-13 14:19] VITALS: TEMP 98.2
[2018-08-13 14:23] VITALS: BP 141/69; O2SAT 100
[2018-08-13 17:45] LABS: Urine Blood TRACE (NEG); Urine Glucose 1+ (NEG); Urine Protein 1+ (NEG); Urine Specific Gravity 1.015 (1.005-1.030)
== END 2018-08-13 13:59 | disposition home or self-care (01) ==
LOC: ER 10:06
DX: R05 Cough (principal); E11.22 Type 2 diabetes mellitus with diabetic chronic kidney disease; I12.0 Hypertensive chronic kidney disease with stage 5 chronic kidney disease or end stage renal disease; N18.6 End stage renal disease; Z94.0 Kidney transplant status
CPT/HCPCS: 71046; 81003; 81025; 87804; 99284

== ENCOUNTER 2019-02-19 08:20 | Emergency (ER) | payer OTHER ==
--- OUTSIDE RECORDS SUMMARY | 2019-02-19 08:26 | XMS REPORT | Clinical Summary ---
:1955 Author Organization [facility] Address [address] [place] [id number] Care Team Providers Name Role Phone Ambrosio Raymundo DO Primary Care Provider Allergies Active Allergy Reactions Severity Noted Date Comments No Known Drug Allergies 02/25/2016 Medications Medication Sig Dispensed Refills Start Date End Date Status amLODIPine Take 1 tablet 90 tablet 3 03/28/2018 03/28/20 Active (NORVASC) 10 mg (10 mg total) 19 tablet by mouth daily. gauze bandage 4 X 4 4X4 Gauze 50 each 0 04/06/2018 Active " sponge gauze bandage 4 1/ Apply as 14 each 0 04/06/2018 Active X 4 "-yard bandage instructed elastic bandage 4 " Use as directed 5 each 0 04/06/2018 Active bandage mycophenolate Take 1 tablet 60 tablet 11 06/29/2018 06/29/20 Active (CELLCEPT) 500 mg (500 mg total) 19 tablet by mouth 2 (two) times a day. 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 predniSONE Take 1 tablet 30 tablet 11 08/02/2018 08/02/19 Active (DELTASONE) 5 mg (5 mg total) by 20 tabletIndications: mouth daily. Prevention of Kidney Transplant Rejection megestrol (MEGACE) Take 1 tablet 30 tablet 08/23/2018 08/23/19 Active 40 MG (40 mg total) 20 tabletIndications: by mouth daily. anorexia insulin NPH isoph Inject 10 Units 9 mL 3 08/28/2018 Active U-100 human under the skin (HumuLIN N NPH daily before Insulin KwikPen) breakfast. 100 unit/mL (3 mL) HUMALOG KWIKPEN Inyecte 8 20 pen 10 09/18/2018 Active INSULIN 100 unit/mL unidades bajo injection pen de la piel con desayuno, 12 unidades antes del almuerzo y la real estate firm manager y mas unidades heidy escala movil simvastatin (ZOCOR) Take 1 tablet 90 tablet 3 09/21/2018 09/21/19 Active 20 MG tablet (20 mg total) 20 by mouth nightly. tacrolimus Take 2 capsules 120 capsule 11/02/2018 11/02/19 Active (PROGRAF) 1 MG (2 mg total) by 20 capsuleIndications: mouth 2 (two) Prevention of times a day. Kidney Transplant DOSE CHANGE: Rejection 2mg twice a day linagliptin Take 1 tablet 30 tablet 3 12/01/2018 Active (TRADJENTA) 5 mg (5 mg total) by tablet mouth daily. gabapentin Take 1 capsule 270 capsule 3 01/25/2019 Active (NEURONTIN) 100 mg (100 mg total) capsule by mouth 3 (three) times a day. clonIDINE Take 1 tablet 90 tablet 11 02/02/2019 02/02/20 Active (CATAPRES) 0.1 MG (0.1 mg total) 20 tablet by mouth 3 (three) times a day. omeprazole Take 1 capsule 30 capsule 02/02/2019 02/02/20 Active (PriLOSEC) 40 MG (40 mg total) 20 capsule by mouth daily. amLODIPine Take 10 mg by 0 03/28/20 Discontinued (NORVASC) 10 MG mouth daily. 18 tablet mycophenolate Take 500 mg by 0 06/29/20 Discontinued (CELLCEPT) 500 mg mouth 2 (two) 18 tablet times a day. gabapentin Take 1 capsule 270 capsule 10 11/17/2016 01/26/20 Discontinued (NEURONTIN) 100 mg by mouth 3 19 capsule times daily losartan (COZAAR) Take 1 tablet 90 tablet 3 01/05/2017 05/23/20 Discontinued 100 MG (100 mg total) 18 tabletIndications: by mouth daily. Type 2 diabetes mellitus with chronic kidney disease on chronic dialysis, with long-term current use of insulin ([facility]), Kidney transplant recipient, Other diabetic neurological complication associated with type 2 diabetes mellitus (HCC), Proliferative diabetic retinopathy associated with type 2 diabetes mellitus, macular edema presence unspecified, Essential (primary) hypertension, Obesity, unspecified, Osteopenia, Vitamin D deficiency ONETOUCH DELICA USE TO TEST 6 600 each 3 08/23/2017 03/27/20 Discontinued LANCETS 33 gauge TIMES PER DAY 18 miscIndications: Type 2 diabetes mellitus with chronic kidney disease on chronic dialysis, with long-term current use of insulin ([facility]), Diabetic polyneuropathy associated with type 2 diabetes mellitus ([facility]), Proliferative diabetic retinopathy associated with type 2 diabetes mellitus (HCC), Kidney transplant recipient linagliptin Take 1 tablet 30 tablet 6 09/13/2017 12/02/19 Discontinued (TRADJENTA) 5 mg (5 mg total) by 19 tablet mouth daily. tacrolimus Take 1 mg by 0 03/28/20 Discontinued (PROGRAF) 0.5 MG mouth daily. 18 capsule 18: Current Dose 1.5 / 2 predniSONE Take 1 tablet 30 tablet 60 10/29/2017 08/02/19 Discontinued (DELTASONE) 5 mg (5 mg total) by 19 tablet mouth daily. timolol (TIMOPTIC) Administer 1 10 mL 3 11/22/2017 03/27/20 Discontinued 0.5 % ophthalmic drop into the 18 solution left eye 2 (two) times a day. latanoprost Administer 1 2.5 mL 3 11/22/2017 08/28/19 Discontinued (XALATAN) 0.005 % drop to both 19 ophthalmic eyes nightly. solutionIndications : Primary open angle glaucoma of both eyes, indeterminate stage tacrolimus *BRAND NAME 90 capsule 11 12/29/2017 03/28/20 Discontinued (PROGRAF) 1 MG MEDICALLY 18 capsule NECESSARY* Pt to take (1) cap by mouth each morning, and (2) cap by mouth each evening. Current Dose - 1.5 / 2 blood sugar DX: E11.65 USE 600 strip 3 01/10/2018 03/27/20 Discontinued diagnostic strips TO TEST 5-6 18 (ONETOUCH VERIO) TIMES A DAY. strip test stripsIndications: Type 2 diabetes mellitus with chronic kidney disease on chronic dialysis, with long-term current use of insulin ([facility]), Diabetic polyneuropathy associated with type 2 diabetes mellitus (HCC), Kidney transplant recipient mirtazapine Take 1 tablet 30 tablet 5 01/10/2018 03/27/20 Discontinued (REMERON) 15 MG (15 mg total) 18 tablet by mouth nightly for 180 days. clonIDINE Take 1 tablet 90 tablet 11 01/20/2018 02/03/20 Discontinued (CATAPRES) 0.1 MG (0.1 mg total) 19 tablet by mouth 3 (three) times a day. omeprazole Take 1 capsule 30 capsule 11 01/20/2018 02/03/20 Discontinued (PriLOSEC) 40 MG (40 mg total) 19 capsule by mouth daily. simvastatin (ZOCOR) Take 1 tablet 30 tablet 11 01/20/2018 09/21/19 Discontinued 20 MG tablet (20 mg total) 19 by mouth nightly. oxybutynin Take 1 tablet 60 tablet 11 02/07/2018 03/29/20 Discontinued (DITROPAN) 5 MG (5 mg total) by 18 tablet mouth 2 (two) times a day. denosumab (PROLIA) Inject 60 mg 0 11/28/19 Discontinued 60 mg/mL syringe under the skin 19 syringe every 6 (six) months. acetaminophen-codei Take 1-2 15 tablet 0 02/23/2018 [...] Use for wet to dry dressing daily gauze bandage 4 X 4 4x4 gauze for 50 each 0 03/20/2018 03/27/20 Discontinued " sponge wound care 18 non-adherent WOUND DRESSING 25 each 0 03/20/2018 03/27/20 Discontinued bandage 3 X 3 " 18 bandage bismuth Apply to wound 14 each 0 03/20/2018 03/27/20 Discontinued tribrom-petrolatum, as instructed 18 wh (XEROFORM PETROLATUM DRESSING) 1 X 8 " bandage mupirocin Apply topically 15 g 0 03/23/2018 03/30/20 (BACTROBAN) 2 % 3 (three) times 18 cream a day for 7 days. tacrolimus Take 5 mg by 0 05/24/20 Discontinued (PROGRAF) 5 MG mouth daily. Pt 18 capsule taking 5mg in the morning only tacrolimus Take 1 mg by 0 05/24/20 Discontinued (PROGRAF) 1 MG mouth daily. 18 capsule 05/24/18 Dose: 1.5 / 2 tacrolimus Take 2 mg by 0 05/24/20 Discontinued (PROGRAF) 1 MG mouth daily. Pt 18 capsule is taking the 2mg at night time only HYDROcodone-acetami Take 2 tablets 30 tablet 0 03/29/2018 04/08/20 nophen (NORCO) by mouth every 18 10-325 mg per 4 (four) hours tablet as needed for moderate pain for up to 10 days. Max Daily Amount: 12 tablets cephalexin (KEFLEX) Take 1 capsule 28 capsule 0 03/29/2018 04/05/20 500 MG capsule (500 mg total) 18 by mouth 4 (four) times a day for 7 days. solifenacin Take 10 mg by 0 08/28/19 Discontinued (VESICARE) 5 MG mouth daily. 19 tablet bismuth Apply to wound 50 each 0 04/06/2018 08/28/19 Discontinued tribrom-petrolatum, as instructed 19 wh (XEROFORM PETROLATUM DRESSING) 1 X 8 " bandage levoFLOXacin Take every 0 05/15/2018 08/28/19 Discontinued (LEVAQUIN) 500 MG other day for 19 tablet two weeks until 05/25/18 tacrolimus Take 0.5 mg by 0 05/24/20 Discontinued (PROGRAF) 0.5 MG mouth 2 (two) 18 capsule times a day. 05/24/18 Dose: 1.5mg q AM / 2mg q PM tacrolimus Take 1 capsule 60 capsule 11 05/24/2018 05/24/20 Discontinued (PROGRAF) 0.5 MG (0.5 mg total) 18 capsule by mouth 2 (two) times a day. 05/24/18 Dose: 1.5mg q AM / 2mg q PM tacrolimus Take 1 capsule 30 capsule 11 05/24/2018 05/24/20 Discontinued (PROGRAF) 1 MG (1 mg total) by 18 capsule mouth daily. 05/24/18 Dose: 1.5 / 2 tacrolimus Take 1 capsule 30 capsule 11 05/24/2018 08/23/19 Discontinued (PROGRAF) 0.5 MG (0.5 mg total) 19 capsule by mouth daily. 05/24/18 Dose: 1.5mg q AM / 2mg q PM BRAND NAME MEDICALLY NECESSARY tacrolimus Take 1 capsule 90 capsule 11 05/24/2018 08/23/19 Discontinued (PROGRAF) 1 MG by mouth each 19 capsule morning, 2 caps by mouth each evening. 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 Kidney Transplant 05/24/18 Dose: Rejection 1.5mg q AM / 2mg q PM tacrolimus Take 1 capsule 90 capsule 11 08/23/2018 11/03/19 Discontinued (PROGRAF) 1 MG by mouth each 19 capsuleIndications: morning, 2 caps Prevention of by mouth each Kidney Transplant evening. Total Rejection Daily Dose: 1.5 / 2mg insulin NPH isoph Inject 3-5 0 08/28/19 Discontinued U-100 human Units under the 19 (HumuLIN N NPH skin 3 (three) Insulin KwikPen) times a day. 100 unit/mL (3 mL) tacrolimus Take 1 capsule 30 capsule 11 09/22/2018 11/03/19 Discontinued (PROGRAF) 0.5 MG (0.5 mg total) 19 capsuleIndications: by mouth daily. Prevention of 05/24/18 Dose: Kidney Transplant 1.5mg q AM / Rejection 2mg q PM Hospital, Clinic, or Other Ordered Dose Route Frequency Start Date End Date Status Facility Administered Medication denosumab (PROLIA) syringe 60 mg subQ once 05/23/2018 05/23/2018 Ended 60 mgIndications: Osteoporosis, unspecified osteoporosis type, unspecified pathological fracture presence denosumab (PROLIA) syringe 60 mg subQ once 11/27/2018 11/27/2018 Ended 60 mgIndications: Osteoporosis, unspecified osteoporosis type, unspecified pathological fracture presence Active Problems Problem Noted Date Immunosuppressive management encounter following kidney transplant 10/30/2018 Tertiary hyperparathyroidism 10/30/2018 Preop examination 10/30/2018 Closed displaced fracture of tuberosity of left [...] Encounters Date Type Specialty Care Team Description 02/02/2019 Refill Transplant Luis Siddiqui Refkeshia Gambino RN 01/25/2019 Refill Endocrinology Jerri Mcdermott MA 12/27/2018 Telephone Transplant Jasmyn Angel Advice Only 12/01/2018 Orders Only Endocrinology Uzma Nieves MA 11/28/2018 Orders Only Endocrinology Uzma Nieves MA 11/27/2018 Ancillary Onelia Bailey 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); Procedure MD Velasquez Osteoporosis, unspecified osteoporosis type, unspecified pathological fracture presence 11/27/2018 Office Visit Endocrinology Onelia Bailey 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) (Primary Dx); MD Velasquez Kidney transplant recipient; Diabetic polyneuropathy associated with type 2 diabetes mellitus (HCC); Proliferative diabetic retinopathy associated with type 2 diabetes mellitus, macular edema presence unspecified, unspecified laterality (HCC); Essential hypertension; Mixed hyperlipidemia; Obesity due to excess calories without serious comorbidity, unspecified classification; Osteoporosis, unspecified osteoporosis type, unspecified pathological fracture presence; Abnormal thyroid stimulating hormone (TSH) level; Vitamin D deficiency 11/23/2018 Telephone Endocrinology Lucy Fermin 11/02/2018 Telephone Transplant Artur FK Mgmt BO Gambino 10/30/2018 Office Visit General Surgery Karli Maldonado Tertiary hyperparathyroidism (HCC) (Primary Dx); MD Nicky Essential (primary) hypertension; Vitamin D deficiency; Steroid-induced osteoporosis; Other closed displaced fracture of tuberosity of left calcaneus, initial encounter; Kidney transplant recipient; Immunosuppressive management encounter following kidney transplant; Preop examination 10/30/2018 Hospital Encounter Transplant Abdellatif, Blood tests prior to treatment or procedure; Souleymane Luis MD Kidney transplant infection; 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; Encounter for therapeutic drug monitoring; Kidney replaced by transplant; medical terminologist current use of systemic steroids; Mixed hyperlipidemia; Proteinuria, unspecified type; Tertiary hyperparathyroidism (HCC); Vitamin D deficiency; Urinary tract infection without hematuria, site unspecified 10/18/2018 Telephone Transplant Artur, Parathyroidectomy BO Gambino Questions 09/22/2018 Refill Transplant Artur, Med Refill BO Gambino 09/21/2018 Refill Transplant Artur, Med Refill Maki, RN 09/13/2018 Refill Endocrinology Onelia Bailey MD 08/28/2018 Hospital Encounter Radiology Karli Maldonado MD 08/28/2018 Office Visit Endocrinology Onelia Bailey 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) (Primary Dx); MD Velasquez Kidney transplant recipient; Diabetic polyneuropathy associated with type 2 diabetes mellitus (HCC); Proliferative diabetic retinopathy associated with type 2 diabetes mellitus, macular edema presence unspecified, unspecified laterality (HCC); Essential hypertension; Mixed hyperlipidemia; Obesity due to excess calories without serious comorbidity, unspecified classification; Osteoporosis, unspecified osteoporosis type, unspecified pathological fracture presence; Abnormal thyroid stimulating hormone (TSH) level; Vitamin D deficiency 08/28/2018 Hospital Encounter Radiology Erica Karli Hyperparathyroidism ( [facility]); MD Nicky Encounter for aftercare following kidney transplant; Osteopenia of spine 08/23/2018 Orders Only Transplant Artur, Blood tests prior to treatment or procedure; BO Gambino Kidney transplant infection; 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; Encounter for therapeutic drug monitoring; Kidney replaced by transplant; medical terminologist current use of systemic steroids; Mixed hyperlipidemia; Proteinuria, unspecified type; Tertiary hyperparathyroidism ([facility]); Vitamin D deficiency; Urinary tract infection without hematuria, site unspecified 08/22/2018 Hospital Encounter Transplant Lincoln, Hyperparathyroidism ([facility]) (Primary Dx); Tre Ascencio, Encounter for aftercare following kidney transplant; Osteopenia of spine 08/22/2018 Hospital Encounter Transplant [facility], Blood tests prior to treatment or procedure; Souleymane Luis MD Kidney transplant infection; 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; Encounter for therapeutic drug monitoring; Kidney replaced by transplant; jail current use of systemic steroids; Mixed hyperlipidemia; Proteinuria, unspecified type; Tertiary hyperparathyroidism ([facility]); Vitamin D deficiency; Urinary tract infection without hematuria, site unspecified 08/22/2018 Telephone Transplant Catherine Sloan, New Prescription MA 08/16/2018 Telephone Transplant Jasmyn Angel Advice Only 08/03/2018 Telephone Transplant UNIQUE Siddiqui RN 08/02/2018 Refill Transplant Artur Med Marcy Gambino, BO 07/21/2018 Orders Only Endocrinology NievesUzma olmos MA 06/30/2018 Orders Only Endocrinology Nieves, Type 2 diabetes mellitus Uzma, KAHLIL with right eye affected by proliferative retinopathy and macular edema, with long-term current use of insulin ([facility]) 06/29/2018 Hospital Encounter Radiology Ambrosio Raymundo Abnormal mammogram G., DO 06/29/2018 Refill Transplant Artur, Med Refill Maki, BO 06/29/2018 Telephone Transplant Catherine Sloan, Med Refill KAHLIL 06/27/2018 Refill Endocrinology Sharron, Type 2 diabetes mellitus KAHLIL [place]rie with right eye affected by proliferative retinopathy and macular edema, with long-term current use of insulin (HCC) (Primary Dx) 06/08/2018 Hospital Encounter Transplant Orion, Essential (primary) hypertension; Souleymane Luis MD Kidney transplant recipient; Diarrhea, unspecified type 05/24/2018 Telephone Transplant Womario, Rx Clarification Jennie, MA 05/24/2018 Refill Transplant Siddiqui, Advice Only BO Gambino 05/23/2018 Hospital Encounter Transplant Kerrie Heller Essential (primary) hypertension (Primary Dx); MD Omayra Blood tests prior to treatment or procedure; Kidney transplant infection; 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; Encounter for therapeutic drug monitoring; Kidney replaced by transplant; jail current use of systemic steroids; Mixed hyperlipidemia; Proteinuria, unspecified type; Tertiary hyperparathyroidism (HCC); Vitamin D deficiency; Urinary tract infection without hematuria, site unspecified; Kidney transplant recipient; Diarrhea, unspecified type 05/23/2018 Office Visit Endocrinology Onelia Bailey 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) (Primary Dx); MD Velasquez Kidney transplant recipient; Diabetic polyneuropathy associated with type 2 diabetes mellitus (HCC); Proliferative diabetic retinopathy associated with type 2 diabetes mellitus, macular edema presence unspecified, unspecified laterality (HCC); Essential hypertension; Mixed hyperlipidemia; Obesity due to excess calories without serious comorbidity, unspecified classification; Osteoporosis, unspecified osteoporosis type, unspecified pathological fracture presence; Abnormal thyroid stimulating hormone (TSH) level; Vitamin D deficiency 05/23/2018 Hospital Encounter Transplant Onelia Bailey MD 05/23/2018 Hospital Encounter Transplant Kerrie Heller Kidney replaced by transplant; MD Omayra Urinary tract infection without hematuria, site unspecified; Stark, Proteinuria, unspecified type; Tre Ascencio BK viremia; Cytomegalovirus infection, unspecified cytomegaloviral infection type (HCC) 05/18/2018 Telephone Transplant Jasmyn Angel Advice Only 05/15/2018 Transcribe Orders Access Ambrosio Raymundo Abnormal mammogram G., DO (Primary Dx) 05/15/2018 Transcribe Orders Access [facility] Microcalcifications of Souleymane Luis MD the breast (Primary Dx) 05/03/2018 Telephone Transplant Jasmyn Angel Advice Only 04/18/2018 Telephone Transplant Jasmyn Angel Advice Only 04/11/2018 Office Visit Orthopedic Surgery Jackson Buckner closed elmer Schultz MD fracture of tuberosity of left calcaneus, initial encounter (Primary Dx) 04/06/2018 Office Visit Orthopedic Surgery Jackson Buckner MD fracture of tuberosity of left calcaneus, initial encounter (Primary Dx) 04/05/2018 Office Visit Urology Chace, Urinary retention MD Trae (Primary Dx) 03/30/2018 Telephone Transplant [facility], [facility] Heather Huerta MA 03/28/2018 Refill Transplant Artur, [facility] Marcy Gambino RN 03/27/2018 Anesthesia Event General Surgery Kulwinder Delarosa MD 03/27/2018 Surgery General Surgery [place], Left calcaneus excision, Fidencio Schultz MD debridement of wound and achilles 03/27/2018 Hospital Encounter General Internal Jackson Buckner closed displaced fracture of tuberosity of left calcaneus, initial encounter (Primary Dx); - Medicine Fidencio Schultz MD Urinary retention; 03/29/2018 Diabetic mononeuropathy associated with type 2 diabetes mellitus; Essential hypertension; Kidney transplant recipient; 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 03/27/2018 Office Visit Orthopedic Surgery Jackson Buckner closed displaced Fidencio Schultz MD fracture of tuberosity of left calcaneus, initial encounter (Primary Dx) 03/27/2018 Patient Outreach Quality Meri Cleary RN 03/27/2018 Orders Only Orthopedic Surgery Jackson Castro closed displaced Cornelio, [place] fracture of tuberosity of left calcaneus, initial encounter (Primary Dx) 03/23/2018 Emergency Emergency Medicine Jeffrey Vargas Wound dehiscence MD Sven (Primary Dx) 03/20/2018 Office Visit Orthopedic Surgery Jackson Buckner closed displaced Fidencio Schultz MD fracture of tuberosity of left calcaneus, initial encounter (Primary Dx) 03/20/2018 Orders Only Orthopedic Surgery Matthew, Jackson closed displaced Cornelio, [place] fracture of tuberosity of left calcaneus, initial encounter (Primary Dx) 03/16/2018 Office Visit Orthopedic Surgery Jackson Buckner closed displaced Fidencio Schultz MD fracture of tuberosity of left calcaneus, initial encounter (Primary Dx) 03/16/2018 Orders Only Orthopedic Surgery Jackson Castro closed displaced Cornelio, [place] fracture of tuberosity of left calcaneus, initial encounter (Primary Dx) 03/15/2018 Orders Only Transplant Artur, Kidney replaced by transplant ( Primary Dx); [...] left calcaneus, initial encounter (Primary Dx) 02/23/2018 Anesthesia Event General Surgery Sven Rivers MD 02/23/2018 Surgery General Surgery [place], LEFT CALCANEUS ORIF Fidencio Schultz MD 02/23/2018 Hospital Encounter General Surgery Jackson Buckner closed displaced Fidencio Schultz MD fracture of tuberosity of left calcaneus, initial encounter (Primary Dx) 02/23/2018 Hospital Encounter Radiology [place], Hx of traumatic fx Fidencio Schultz MD 02/23/2018 Office Visit Orthopedic Surgery Jackson Buckner closed elmer Schultz MD fracture of tuberosity of left calcaneus, initial encounter (Primary Dx) 02/23/2018 Orders Only Orthopedic Surgery Jackson Castro closed displaced Cornelio, [place] fracture of tuberosity of left calcaneus, initial encounter (Primary Dx) 02/23/2018 Documentation Orthopedic Surgery Fidencio Buckner MD 02/23/2018 Orders Only Radiology Ofoh, [place] 02/22/2018 Emergency Emergency Medicine Whaley, Closed nondisplaced fracture of left calcaneus, unspecified portion of calcaneus, initial encounter (Primary Dx); - Krystian Achilles tendon tear, left, initial encounter; 02/23/2018 DO Jake Kidney transplant recipient after 02/18/2018 Immunizations Name Dates Previously Given Next Due [...] travel history available. Last Filed Vital Signs Vital Sign Reading Time Taken Blood Pressure 159/77 11/27/2018 10:05 AM CDT Pulse 84 11/27/2018 10:05 AM CDT Temperature 36.8 C (98.2 F) 10/30/2018 10:49 AM CDT Respiratory Rate 18 11/27/2018 10:05 AM CDT Oxygen Saturation 97% 11/27/2018 10:05 AM CDT Inhaled Oxygen Concentration - - Weight 53.5 kg (118 lb) 11/27/2018 10:05 AM CDT Height 156.2 cm (5' 1.5") 11/27/2018 10:05 AM CDT Body Mass Index 21.93 11/27/2018 10:05 AM CDT Plan of Treatment Date Type Specialty Care Team Description 02/27/2019 Lab Transplant Esa Sears MD [address] [place] [address] [place] [address] [phone] 02/27/2019 Office Visit Transplant Tre Stark MD [address] [facility] [address] [place] [address] [phone] 03/26/2019 Office Visit Endocrinology Onelia Bailey MD [address] [facility] [address] [place] [address] [phone] Health Maintenance Due Date Last Done Comments COLONOSCOPY SCREENING 2007 SHINGLES VACCINES (#1) 2007 INFLUENZA VACCINE 03/01/2019 04/03/2018, 05/10/2017, 05/18/2016 DIABETIC FOOT EXAM 11/28/2019 11/27/2018, 11/27/2018, 01/10/2018, Additional history exists DIABETIC RETINAL EYE EXAM 12/28/2019 12/27/2017, 11/22/2017, 11/22/2017, Additional history exists BREAST CANCER SCREENING 06/29/2020 06/29/2018, 06/29/2018, 05/15/2018, Additional history exists Implants Implanted Type Area Shade Bander Device Shelf Model / Identifier Expiration Serial / Lot Date Becky Screw 6.5mm X 40mm X 16mm - [id number] IMPLANT Left: [employer] 07/12/2112 [id number] / Implanted: Qty: 1 on 02/23/2018 by Fidencio Buckner MD DEVICES Heel / LOT NA Becky Screw 6.5mm X 45mm X 16mm - [id number] IMPLANT Left: [employer] 07/12/2112 [id number] / Implanted: Qty: 1 on 02/23/2018 by Fidencio Buckner MD DEVICES Heel / LOT NA Procedures Procedure Name Priority Date/Time Associated Diagnosis Comments POC GLYCOSYLATED Routine 11/27/2018 Uncontrolled type 2 Results for HEMOGLOBIN (HGB A1C) 10:32 AM CDT diabetes mellitus with this procedure nephropathy (HCC) are in the results section. BONE DENSITY Routine 11/27/2018 Uncontrolled type 2 Results for 9:36 AM CDT diabetes mellitus with this procedure nephropathy (HCC) are in the Osteoporosis, unspecified results osteoporosis type, section. unspecified pathological fracture presence ESTIMATED GFR Routine 10/30/2018 Results for 9:16 AM CDT this procedure are in the results section. 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 NM PARATHYROID PLANAR Routine 08/28/2018 Hyperparathyroidism (HCC) Results for W SPECT AND CT 12:42 PM [facility] Encounter for aftercare this procedure following kidney are in the transplant results Osteopenia of spine section. DONOR SPECIFIC Routine 08/22/2018 Results for ANTIBODY 9:40 AM [facility] this procedure are in the results section. ESTIMATED GFR Routine 08/22/2018 Results for 9:40 AM [facility] this procedure are in the results section. 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 MAMMO DIAGNOSTIC W Routine 06/29/2018 Abnormal mammogram Results for CAD LEFT 2:02 PM [facility] this procedure are in the results section. ESTIMATED GFR Routine 06/08/2018 Results for 3:00 PM [facility] this procedure are in the results section. C-REACTIVE PROTEIN Routine 06/08/2018 Diarrhea, unspecified Results for 3:00 PM [facility] type this procedure are in the results section. HC COMPLETE BLD COUNT Routine 06/08/2018 Essential (primary) Results for W/AUTO DIFF 3:00 PM [facility] hypertension this procedure Kidney transplant are in the recipient results section. BASIC METABOLIC PANEL Routine 06/08/2018 Essential (primary) Results for 3:00 PM [facility] hypertension this procedure Kidney transplant are in the recipient results section. VITAMIN D 25 HYDROXY Routine 05/23/2018 Results for LEVEL 7:33 AM CDT this procedure are in the results section. THYROID STIMULATING Routine 05/23/2018 Results for HORMONE 7:33 AM CDT this procedure are in the results section. T4, FREE Routine 05/23/2018 Results for 7:33 AM CDT this procedure are in the results section. LIPID PANEL Routine 05/23/2018 Results for 7:33 AM CDT this procedure are in the results section. HEMOGLOBIN A1C Routine 05/23/2018 Results for 7:33 AM CDT this procedure are in the results section. ESTIMATED GFR Routine 05/23/2018 Results for 7:33 AM CDT this procedure are in the results section. CYTOMEGALOVIRUS BY Routine 05/23/2018 Kidney replaced by Results for PCR 7:33 AM CDT transplant this procedure Urinary tract infection are in the without hematuria, site results unspecified section. Proteinuria, unspecified type BK viremia Cytomegalovirus infection, unspecified cytomegaloviral infection type (HCC) BK VIRUS BY PCR Routine 05/23/2018 Kidney replaced by Results for 7:33 AM CDT transplant this procedure Urinary tract infection are in the without hematuria, site results unspecified section. Proteinuria, unspecified type BK viremia Cytomegalovirus infection, unspecified cytomegaloviral infection type (HCC) URINALYSIS SCREEN AND Routine 05/23/2018 Kidney replaced by Results for MICROSCOPY, WITH 7:33 AM CDT transplant this procedure REFLEX TO CULTURE Urinary tract infection are in the without hematuria, site results unspecified section. Proteinuria, unspecified type BK viremia Cytomegalovirus infection, unspecified cytomegaloviral infection type (HCC) FK506 TACROLIMUS Routine 05/23/2018 Kidney replaced by Results for LEVEL, RANDOM 7:33 AM CDT transplant this procedure Urinary tract infection are in the without hematuria, site results unspecified section. Proteinuria, unspecified type BK viremia Cytomegalovirus infection, unspecified cytomegaloviral infection type (HCC) CREATININE LEVEL, Routine 05/23/2018 Kidney replaced by Results for URINE, RANDOM 7:33 AM CDT transplant this procedure Urinary tract infection are in the without hematuria, site results unspecified section. Proteinuria, unspecified type BK viremia Cytomegalovirus infection, unspecified cytomegaloviral infection type (HCC) PROTEIN, URINE, Routine 05/23/2018 Kidney replaced by Results for RANDOM 7:33 AM CDT transplant this procedure Urinary tract infection are in the without hematuria, site results unspecified section. Proteinuria, unspecified type BK viremia Cytomegalovirus infection, unspecified cytomegaloviral infection type (HCC) PHOSPHORUS LEVEL Routine 05/23/2018 Kidney replaced by Results for 7:33 AM CDT transplant this procedure Urinary tract infection are in the without hematuria, site results unspecified section. Proteinuria, unspecified type BK viremia Cytomegalovirus infection, unspecified cytomegaloviral infection type (HCC) MAGNESIUM LEVEL Routine 05/23/2018 Kidney replaced by Results for 7:33 AM CDT transplant this procedure Urinary tract infection are in the without hematuria, site results unspecified section. Proteinuria, unspecified type BK viremia Cytomegalovirus infection, unspecified cytomegaloviral infection type (HCC) COMPREHENSIVE Routine 05/23/2018 Kidney replaced by Results for METABOLIC PANEL 7:33 AM CDT transplant this procedure Urinary tract infection are in the without hematuria, site results unspecified section. Proteinuria, unspecified type BK viremia Cytomegalovirus infection, unspecified cytomegaloviral infection type (HCC) HC COMPLETE BLD COUNT Routine 05/23/2018 Kidney replaced by Results for W/AUTO DIFF 7:33 AM CDT transplant this procedure Urinary tract infection are in the without hematuria, site results unspecified section. Proteinuria, unspecified type BK viremia Cytomegalovirus infection, unspecified cytomegaloviral infection type (HCC) URINE CULTURE Routine 05/23/2018 Results for 7:33 AM CDT this procedure are in the results section. POC GLUCOSE Routine 03/29/2018 Results for 11:54 AM CDT this procedure are in the results section. POC GLUCOSE Routine 03/29/2018 Results for 7:27 AM CDT this procedure are in the results section. ZZESTIMATED GFR Routine 03/29/2018 Results for 5:30 AM CDT this procedure are in the results section. PHOSPHORUS LEVEL Routine 03/29/2018 Results for 5:30 AM CDT this procedure are in the results section. MAGNESIUM LEVEL Routine 03/29/2018 Results for 5:30 AM CDT this procedure are in the results section. COMPREHENSIVE Routine 03/29/2018 Results for METABOLIC PANEL 5:30 AM CDT this procedure are in the results section. HC COMPLETE BLD COUNT Routine 03/29/2018 Results for W/AUTO DIFF 5:30 AM CDT this procedure are in the results section. POC GLUCOSE Routine 03/28/2018 Results for 8:55 PM CDT this procedure are in the results section. POC GLUCOSE Routine 03/28/2018 Results for 4:58 PM CDT this procedure are in the results section. URINALYSIS SCREEN AND Routine 03/28/2018 Results for MICROSCOPY, WITH 12:30 PM CDT this procedure REFLEX TO CULTURE are in the results section. URINE CULTURE Routine 03/28/2018 Results for 12:30 PM CDT this procedure are in the results section. POC GLUCOSE Routine 03/28/2018 Results for 11:53 AM CDT this procedure are in the results section. POC GLUCOSE Routine 03/28/2018 Results for 7:30 AM CDT this procedure are in the results section. ZZESTIMATED GFR Routine 03/28/2018 Results for 4:55 AM CDT this procedure are in the results section. HEMOGLOBIN A1C Routine 03/28/2018 Results for 4:55 AM CDT this procedure are in the results section. PHOSPHORUS LEVEL Routine 03/28/2018 Results for 4:55 AM CDT this procedure are in the results section. MAGNESIUM LEVEL Routine 03/28/2018 Results for 4:55 AM CDT this procedure are in the results section. COMPREHENSIVE Routine 03/28/2018 Results for METABOLIC PANEL 4:55 AM CDT this procedure are in the results section. HC COMPLETE BLD COUNT Routine 03/28/2018 Results for W/AUTO DIFF 4:55 AM CDT this procedure are in the results section. POC GLUCOSE Routine 03/27/2018 Results for 9:07 PM CDT this procedure are in the results section. POC GLUCOSE Routine 03/27/2018 Results for 6:09 PM CDT this procedure are in the results section. OR AN ELECTIVE Routine 03/27/2018 ENDOTRACHEAL AIRWAY 5:25 PM CDT Procedure Note - Claudine Ordonez Jr. [employer] SUBASSEMBLER - 03/27/2018 5:25 PM CDT Airway Date/Time: 03/27/2018 5:12 PM Performed by: CLAUDINE ORDONEZ JR. Authorized by: SVEN RIVERS Location: OR Urgency: Elective Difficult Airway: No Resident/TURBINE SUBASSEMBLER/AA: CLAUDINE ORDONEZ JR. Performed by: resident/TURBINE SUBASSEMBLER/AA Preoxygenated with 100% O2: Yes C-spine Precautions Maintained Throughout: Yes Mask Ventilation: Easy mask Final Airway Type: Endotracheal airway Final Endotracheal Airway: ETT Cuffed: Yes Technique Used: Direct laryngoscopy Devices/Methods Used in Placement: Intubating stylet Insertion Site: Oral Blade Type: Streeter Laryngoscope Blade/Videolaryngoscope Blade Size: 2 ETT Size (mm): 7.5 Cuff at minimum occlusion pressure: Yes Measured from: Lips ETT to Lips (cm): 21 Placement Verified by: CO2 detection, direct visualization and equal breath sounds Laryngoscopic view: Grade I - full view of glottis Rapid Sequence Induction (RSI): No Modified RSI: No Number of Attempts at Approach: 1 POC PANEL 4 Routine 03/27/2018 1:01 PM Results for this CDT procedure are in the results section. POC GLUCOSE Routine 03/23/2018 9:12 PM Results for this CDT procedure are in the results section. POC GLUCOSE Routine 03/23/2018 8:29 PM Results for this CDT procedure are in the results section. XR ANKLE 3+ VW LEFT STAT 03/23/2018 7:28 PM Results for this CDT procedure are in the results section. ZZESTIMATED GFR STAT 03/23/2018 7:20 PM Results for this CDT procedure are in the results section. BASIC METABOLIC PANEL STAT 03/23/2018 7:20 PM Results for this CDT procedure are in the results section. HC COMPLETE BLD COUNT STAT 03/23/2018 7:20 PM Results for this W/AUTO DIFF CDT procedure are in the results section. OR FL < 1 HOUR Routine 02/23/2018 6:33 PM Hx of traumatic fx Results for this CDT procedure are in the results section. POC GLUCOSE Routine 02/23/2018 6:17 PM Results for this CDT procedure are in the results section. ANESTHESIA PERIPHERAL Routine 02/23/2018 5:18 PM BLOCK CDT Procedure Note - Roma Moran [...] and patient comfortable HC COMPLETE BLD COUNT W/AUTO STAT 02/23/2018 4:30 PM CDT Results for this procedure DIFF are in the results section. ZZESTIMATED GFR STAT 02/23/2018 4:30 PM CDT BASIC METABOLIC PANEL STAT 02/23/2018 4:30 PM CDT XR CHEST 1 VW PORTABLE STAT 02/23/2018 12:20 AM CDT XR CALCANEUS 2+ VW LEFT STAT 02/22/2018 10:59 PM CDT XR ANKLE 3+ VW LEFT STAT 02/22/2018 10:59 PM CDT XR FOOT 3+ VW LEFT STAT 02/22/2018 10:58 PM CDT after 02/18/2018 Results POC glycosylated hemoglobin (Hb A1C) (11/27/2018 10:32 AM CDT) POC Hemoglobin A1C 7.1 % Specimen Blood Bone Density (11/27/2018 9:36 AM CDT) Specimen Narrative Performed At [facility] [address] [place] [address]. [address] [place] [address] Bone Density Report Name: Paola Mishra Sex: Female Age: 63 Ethnicity: Height: 61.5 in Referring Provider: ONELIA BAILEY Date of : 1955 Weight: 118.0lb Indication: Kidney transplant; osteoporosis; history of glucocorticoids; prior fracture Accession number: [id number] Bone Density: Exam date 11/27/2018 Region BMD (g/cm2) T-score Z-score Classification AP Spine(L1, L2, L4) 0.738 -2.7 -1.2 Osteoporosis Femoral Neck(Left) 0.552 -2.7 -1.4 Osteoporosis Total Hip(Left) 0.682 -2.1 -1.1 Osteopenia Femoral Neck(Right) 0.587 -2.4 -1.1 Osteopenia Total Hip(Right) 0.685 -2.1 -1.1 Osteopenia Total Hip Mean 0.684 -2.1 -1.1 Osteopenia World Health Organization criteria for BMD impression classify patients as Normal (T-score at or above 1.0), Osteopenia (T-score between 1.0 and 2.5), or Osteoporosis (T-score at or below 2.5). 10-year Fracture Risk: Major Osteoporotic Fracture 17% Hip Fracture 4.1% Reported Risk Factors: [place] (), T-score(WHO)=-2.5, BMI=21.9, previous fracture, glucocorticoids FRAX Version 3.08. Fracture probability calculated for an untreated patient. Fracture probability may be lower if the patient has received treatment. Previous Exams: Region Exam Date Age BMD (g/cm2) T-score BMD Change vs. Baseline BMD Change vs. Previous AP Spine(L1, L2, L4) 11/27/2018 63 0.738 -2.7 -14.6%# -1.4% 09/13/2017 61 0.748 -2.6 -13.4%# -2.8% 08/24/2016 60 0.769 -2.4 -10.9%# -6.4%# 11/05/2014 59 0.822 -1.9 -4.9%# -4.9%# 08/19/2011 55 0.864 -1.5 Total Hip(Left) 11/27/2018 63 0.682 -2.1 -14.7%# -1.0% 09/13/2017 61 0.689 -2.1 -13.8%# -0.6% 08/24/2016 60 0.693 -2.0 -13.3%# -7.3%# 11/05/2014 59 0.747 -1.6 -6.5%# -6.5%# 08/19/2011 55 0.799 -1.2 Total Hip(Right) 11/27/2018 63 0.685 -2.1 -13.8%# 1.8% 09/13/2017 61 0.673 -2.2 -15.3%# -1.2% 08/24/2016 60 0.681 -2.1 -14.2%# -10.2%# 11/05/2014 59 0.759 -1.5 -4.5%# -4.5%# 08/19/2011 55 0.795 -1.2 *Denotes significance at 95% confidence level, LSC for AP Spine=0.022 g/cm2,LSC for Total Hip=0.027 g/cm2 # Denotes dissimilar scan types or analysis methods Impression: Degenerative changes limit interpretation at the spine. L3 was eliminated from analysis. The patient has established osteoporosis, based on the Total Spine T-score and the existence of a prior fracture. The patient has an elevated estimated ten-year risk of hip fracture of 4.1% and an estimated ten-year risk of major fracture of 17%, based on the WHO FRAX algorithm. The patient has risk factors, including: previous fracture, history of glucocorticoid therapy. Monitoring: As compared with the study of 08/24/16: No significant bone loss was observed. Discussion: HIGH RISK OF FRACTURE. BONE DENSITY IS UNDESIRABLY LOW AT ONE OR MORE SKELETAL SITES, CONSISTENT WITH POSTMENOPAUSAL OSTEOPOROSIS. This patient's lowest T-score, in a patient who has previously fractured, meets the World Health Organization's (WHO) criteria for severe osteoporosis. In untreated patients, the risk of osteoporotic [...] cause or contribute to bone loss. The [place] Association [employer] Clinical Endocrinologists (AACE) and National [...] patient's status. Reported by: Geoffrey Salmon MD, [facility] on 11/28/2018 6:46:00 AM. Performing Organization Address City/[facility] Phone Number [facility] [address] [place] [address] Urinalysis screen and microscopy, with reflex to culture (10/30/2018 9:16 AM CDT)Only the most recent of4 resultswithin the time period is included. Specimen site Clean catch [facility] Color, UA Straw [facility] Appearance, UA Clear [facility] Specific gravity, UA 1.012 1.001 - 1.035 [facility] pH, UA 6.0 5.0 - 8.5 [facility] Protein, UA 1+ (A) Negative [facility] Glucose, UA 2+ (A) Negative [facility] Ketones, UA Negative Negative [facility] Bilirubin, UA Negative Negative [facility] Blood, UA Small (A) Negative [facility] Nitrite, UA Negative Negative [facility] Urobilinogen, UA <2.0 <2.0 [facility] Leukocyte esterase, Negative Negative [facility] Epithelial cells, UA <1 /HPF [facility] WBC, UA <1 0 - 4 /HPF [facility] RBC, UA 1 0 - 5 /HPF [facility] Bacteria, UA None seen None seen [facility] Yeast, UA None seen [facility] Yeast with None seen [facility] pseudohyphae, HOSPITAL Specimen Urine Performing Organization Address City/[facility]/[employer] Phone Number [facility] DEPARTMENT OF PATHOLOGY AND [address] [place] [id number] [place] [address] Estimated GFR (10/30/2018 9:16 AM CDT)Only the most recent of4 resultswithin the time period is included. Pathologist [facility] Estimated GFR 33 (A) mL/min/1.73 [facility] Comment: HOSPITAL CatergoryUnitsInterpretation G1 >=90 Normal or high G2 60-89Mildly decreased Y2t86-61[place] to moderately decreased G3j51-94Xedxutfgee to severely decreased G4 15-29Severely decreased G5 <15Kidney failure The eGFR was calculated using the Chronic Kidney Disease Epidemiology Collaboration (CKD-EPI) equation. Interpretation is based on recommendations of the National Kidney Foundation-Kidney Disease Outcomes Quality Initiative (NKF-KDOQI) published in 2014. Specimen Plasma specimen Performing Organization Address [facility]/[employer] Phone Number [facility] DEPARTMENT OF PATHOLOGY AND [address] [place], [place] [id number] Tacrolimus level, random (10/30/2018 9:16 AM CDT)Only the most recent of3 resultswithin the time period is included. Pathologist [facility] FK506 level 3.6 ng/mL [facility] Comment: HOSPITAL Therapeutic range 5-20 ng/mL for 12 hour trough. The range varies depending on the organ transplanted, time after transplantation and co-administered immunosuppressant therapies. Please use clinical judgment to interpret test result. Test performed using [employer] chemiluminescent microparticle immunoassay for Tacrolimus on the HEAD RE[employer]IGERATING [employer]INE[employer] i System. Specimen Blood Performing Organization Address [facility]/Zipcode Phone Number [facility] DEPARTMENT OF PATHOLOGY AND [address] [place] [address] [place] [address] Protein, urine, random (10/30/2018 9:16 AM CDT)Only the most recent of3 resultswithin the time period is included. Protein, urine random 26 mg/dL [facility] Specimen Urine Performing Organization Address [facility]/Zipcode Phone Number [facility] DEPARTMENT OF PATHOLOGY AND [address] [place], [place] [phone] [facility] [address] [place] [address] Creatinine level, urine, random (10/30/2018 9:16 AM CDT)Only the most recent of3 resultswithin the time period is included. Creatinine, urine, 51 mg/dL [facility] Specimen Urine Performing Organization Address City/[facility]/[employer] Phone Number [facility] DEPARTMENT OF PATHOLOGY AND [address] [place] [address] [facility] [address] [place] [address] CBC with platelet and differential (10/30/2018 9:16 AM CDT)Only the most recent of8 resultswithin the time period is included. WBC 2.95 (L) 4.50 - 11.00 [facility] k/uL HOSPITAL RBC 3.93 (L) 4.20 - 5.50 [facility] m/uL [facility] HGB 11.6 (L) 12.0 - 16.0 [facility] g/dL [facility] HCT 38.0 37.0 - 47.0 % [facility] MCV 96.7 82.0 - 100.0 [facility] MCH 29.5 27.0 - 34.0 pg [facility] MCHC 30.5 (L) 31.0 - 37.0 [facility] g/dL [facility] RDW - SD 54.2 37.0 - 55.0 fL [facility] MPV 11.3 8.8 - 13.2 fL [facility] Platelet count 208 150 - 400 k/uL [facility] Nucleated RBC 0.00 /100 WBC [facility] Neutrophils 71.9 (H) 39.0 - 69.0 % [facility] Lymphocytes 14.6 (L) 25.0 - 45.0 % [facility] Monocytes 11.5 (H) 0.0 - 10.0 % [facility] Eosinophils 1.4 0.0 - 5.0 % [facility] Basophils 0.3 0.0 - 1.0 % [facility] Immature granulocytes 0.3Comment: 0.0 - 1.0 % [facility] "Immature HOSPITAL granulocytes" (promyelocytes , myelocytes, metamyelocytes ) Specimen Blood Performing Organization Address City/[facility]/[employer] Phone Number [facility] DEPARTMENT OF PATHOLOGY AND [address] [place] [phone] [place] [address] Urine culture (10/30/2018 9:16 AM CDT)Only the most recent of4 resultswithin the time period is included. Urine culture SEE COMMENTComment: [facility] Bacteriuria screen HOSPITAL negative. Specimen Performing Organization Address City/[facility]/[employer] Phone Number [facility] DEPARTMENT OF PATHOLOGY AND [address] [place] [address] Phosphorus level (10/30/2018 9:16 AM CDT)Only the most recent of5 resultswithin the time period is included. Phosphorus 2.9 2.4 - 4.5 mg/dL [facility] Specimen Plasma specimen Performing Organization Address [facility]/[employer] Phone Number [facility] DEPARTMENT OF PATHOLOGY AND [address] [place] [phone] Parathyroid hormone (10/30/2018 9:16 AM CDT)Only the most recent of2 resultswithin the time period is included. PTH 545 (H) 15 - 65 pg/mL [facility] Specimen Blood Performing Organization Address [facility]/[employer] Phone Number [facility] DEPARTMENT OF PATHOLOGY AND [address] [place] [address] Magnesium level (10/30/2018 9:16 AM CDT)Only the most recent of5 resultswithin the time period is included. Magnesium 1.6 1.6 - 2.4 mg/dL [facility] Specimen Plasma specimen Performing Organization Address City/[facility]/[employer] Phone Number [facility] DEPARTMENT OF PATHOLOGY AND [address] [place] [address] Ionized calcium (10/30/2018 9:16 AM CDT) pH 7.28 [facility] Ionized calcium 1.23 1.11 - 1.32 mmol/L [facility] Specimen Plasma specimen Performing Organization Address City/[facility]/Zipcode Phone Number [facility] DEPARTMENT OF PATHOLOGY AND [address] [place] [address] [address] Comprehensive metabolic panel (10/30/2018 9:16 AM CDT)Only the most recent of5 resultswithin the time period is included. Sodium 140 135 - 148 [facility] mEq/L [facility] Potassium 4.1 3.5 - 5.0 [facility] mEq/L [facility] Chloride 107 98 - 112 mEq/L [facility] CO2 18 (L) 24 - 31 mEq/L [facility] Anion gap 15@ANIO 7 - 15 mEq/L [facility] BUN 27 (H) 8 - 23 mg/dL [facility] Creatinine 1.65 (H) 0.50 - 0.90 [facility] mg/dL [facility] Glucose 148 (H) 65 - 99 mg/dL [facility] Calcium 9.2 8.8 - 10.2 [facility] mg/dL [facility] Protein 7.6 6.3 - 8.3 g/dL [facility] Comment: HOSPITAL [place] 4.6-7.0 g/dL 1 week 4.4-7.6 g/dL 7 months-1year5.1-7.3 g/dL 1-2 years5.6-7.5 g/dL >3 years6.0-8.0 g/dL 18-150 6.3-8.3 g/dL Albumin 4.6 3.5 - 5.0 g/dL [facility] A/G ratio 1.5 0.7 - 3.8 [facility] Alkaline phosphatase 64 35 - 104 U/L [facility] AST 17 10 - 35 U/L [facility] ALT 18 5 - 50 U/L [facility] Total bilirubin 0.5 0.0 - 1.2 [facility] mg/dL [facility] Specimen Plasma specimen Performing Organization Address City/State/Zipcode Phone Number [facility] DEPARTMENT OF PATHOLOGY AND [address] [place] [address] [address] [place] Parathyroid Planar W Spect And Ct (08/28/2018 12:42 PM HOSPICE COMMUNITY LIAISON) Specimen Narrative Performed At PROCEDURE:NM PARATHYROID PLANAR W SPECT [facility] CLIN[facility]:E21.3 Hyperparathyroidismunspecified, Z48.22 Encounter for aftercare following kidney transplant, Diagnosis or clinical suspicion of UOL5hyclcjmcpotxzac TECHNIQUE The patient was injected with 25 millicuries of iwbcuqvcvm-95z-tcvswgsix intravenously, followed 10 min later by planar imaging of the neck and mid/upper chest in the anterior and posterior projections. This was followed by SPECT-CT imaging of the same regions. Finally, at 2-3 hours postinjection, delayed planar imaging was performed. FINDINGS Early planar imaging demonstrates a focus of mild uptake about a centimeter inferior to the left thyroid lobe, which persists on delayed imaging. There is slightly prominent uptake in the upper poles and just inferior to the right lower pole. Delayed imaging demonstrates questionable retention near the lower poles bilaterally. SPECT-CT imaging demonstrates mild uptake in what is likely a tiny parathyroid adenoma or hyperplasia 1 centimeter inferior to the left thyroid lobe (series 4, image 60). Uptake is mildly prominent near the upper poles bilaterally, but localizes primarily to the thyroid itself. IMPRESSION: 1.Slightly ectopic parathyroid adenoma or hyperplasia approximately 1 cm inferior to the left thyroid lobe. 2.Questionable second abnormal parathyroid gland just inferior to the right thyroid lobe, not well localized on SPECT-CT. 3.Slightly prominent uptake in the upper poles most likely represents physiological thyroid uptake. [facility]-[id number] Procedure Note Interface, Radiology Results Incoming - 08/28/2018 2:24 PM [facility]OSP[facility] COMM[facility]ITY LIAISON PROCEDURE: NM PARATHYROID PLANAR W SPECT AND CT CLINICAL HISTORY: E21.3 Hyperparathyroidism unspecified, Z48.22 Encounter for aftercare following kidney transplant, Diagnosis or clinical suspicion of MEN1 parathyroid eval TECHNIQUE The patient was injected with 25 millicuries of ltvgjslogl-56m-ddothyiiy intravenously, followed 10 min later by planar imaging of the neck and mid/ upper chest in the anterior and posterior projections. This was followed by SPECT-CT imaging of the same regions. Finally, at 2-3 hours postinjection, delayed planar imaging was performed. FINDINGS Early planar imaging demonstrates a focus of mild uptake about a centimeter inferior to the left thyroid lobe, which persists on delayed imaging. There is slightly prominent uptake in the upper poles and just inferior to the right lower pole. Delayed imaging demonstrates questionable retention near the lower poles bilaterally. SPECT-CT imaging demonstrates mild uptake in what is likely a tiny parathyroid adenoma or hyperplasia 1 centimeter inferior to the left thyroid lobe (series 4 , image 60). Uptake is mildly prominent near the upper poles bilaterally, but localizes primarily to the thyroid itself. IMPRESSION: 1. Slightly ectopic parathyroid adenoma or hyperplasia approximately 1 cm inferior to the left thyroid lobe. 2. Questionable second abnormal parathyroid gland just inferior to the right thyroid lobe, not well localized on SPECT-CT. 3. Slightly prominent uptake in the upper poles most likely represents physiological thyroid uptake. [facility]-[id number] Performing Organization Address City/[facility]/[employer] Phone Number [facility] [address] [place] [address] Cytomegalovirus by PCR (08/22/2018 9:40 AM [facility]OSP[facility] COMM[facility]ITY LIAISON)Only the most recent of2 resultswithin the time period is included. Pathologist [facility] Cytomegalovirus by PCR <300 (A) Not-Detected [place] ORTHODOXY IU/mL [facility] Cytomegalovirus by PCR See link [facility] below for PDF HOSPITAL Lab ReportComment : Specimen Performing Organization Address [facility] Phone Number [facility] DEPARTMENT OF PATHOLOGY AND [address] [place] [address] Donor specific antibody (08/22/2018 9:40 AM HOSPICE COMMUNITY LIAISON) [facility] DEPARTMENT OF PATHOLOGY AND [facility] Donor specific See link below [facility] DEPARTMENT OF antibody for PDF Lab PATHOLOGY AND Report GENOMIC MEDICINE Specimen Performing Organization Address [facility] Phone Number [facility] DEPARTMENT OF PATHOLOGY AND [address] [place] [address] BK virus by PCR (08/22/2018 9:40 AM [facility]OSPICE COMMUNITY LIAISON)Only the most recent of2 resultswithin the time period is included. Pathologist [facility] BK virus PCR Not-Detected Not-Detected [facility] BK virus PCR See link below [facility] for PDF Lab HOSPITAL ReportComment: Specimen Performing Organization Address [facility]/[employer] Phone Number [facility] DEPARTMENT OF PATHOLOGY AND [address] [place] [address] Vitamin D 25 hydroxy level (08/22/2018 9:40 AM [facility]OSPICE COMMUNITY LIAISON)Only the most recent of2 resultswithin the time period is included. Pathologist [facility] Vitamin D, 35.0 30.0 - 150.0 [facility] 25-hydroxy Comment: ng/mL HOSPITAL This assay reports the sum of 25-hydroxy [...] Blood Performing Organization Address City/State/Zipcode Phone Number [facility] DEPARTMENT OF PATHOLOGY AND [address] [place] [address] Hemoglobin A1c (08/22/2018 9:40 AM [facility]OSPICE COMMUNITY LIAISON)Only the most recent of3 resultswithin the time period is included. [facility] Hemoglobin A1C 7.9 (H) 4.0 - 5.6 % [facility] Comment: HOSPITAL HbA1c cutoffs for diagnosing diabetes: 4.0% - 5.6%=normal 5.7% - 6.4%=increased risk for diabetes (prediabetes) >=6.5%=diabetes Goals for glycemic control (ADA 2016) < 7.0%Target for non adults with diabetes. More or less stringent targets may be appropriate for individual patients. <7.5% Target for Children and adolescents with type 1 diabetes. Specimen Blood Performing Organization Address City/State/Zipcode Phone Number [facility] DEPARTMENT OF PATHOLOGY AND [address] [place] [phone] Lipid panel (08/22/2018 9:40 AM [facility]OSPICE COMMUNITY LIAISON)Only the most recent of2 resultswithin the time period is included. [facility] Cholesterol 96 <200 mg/dL [facility] Triglycerides 65 <150 mg/dL [facility] HDL cholesterol 54 >40 mg/dL [facility] LDL cholesterol 39Comment: Result <100 mg/dL [place] obtained by direct ORTHODOXY LDL measurement [facility] Lipid panel [facility] interpretation Comment: ORTHODOXY Total Cholesterol (mg/dL) [facility] <200 Desirable 103-659Ajdmxknsla-ujuv >=240High Triglycerides (mg/dL) <150 Normal 781-738Yafydcywwu-tmof 200-499High >=500Very high HDL Cholesterol (mg/dL) <40Low (male) <40Low (female) LDL Cholesterol (mg/dL) <100 Optimal 100-129Near or above optimal 069-298Mzfyqgczgd-mfiv 160-189High >=190Very high Risk Catergories that modify [...] mg/dL) Specimen Plasma specimen Performing Organization Address City/[facility]/Zipcode Phone Number [facility] DEPARTMENT OF PATHOLOGY AND [address] [place] [address] GENOMIC MEDICINE [address] [address] Mammo Diagnostic w Cad Left (06/29/2018 2:02 PM HOSPICE COMMUNITY LIAISON) Specimen Narrative Performed At EXAMINATION:MAMMO DIAGNOSTIC W CAD LEFT [facility] INDICATION: R92.8 Other abnormal and inconclusive findings on diagnostic imaging of breast, R92.8 COMPARISON:Callback from recent screening exam 02/07/2018 FINDINGS: The left breast is heterogeneously dense which, may obscure small masses.There is no suspicious mass, distortion, asymmetry, or suspicious microcalcifications.In the area questioned the calcination appear to be vascular. No further imaging is needed. IMPRESSION: RECOMMENDATION: Recommend annual follow-up if there is no interval change in the physical examination. BI-RADS 2: BENIGN. [id number] Performing Organization Address City/[facility]/[employer] Phone Number [address] [address] C-reactive protein (06/08/2018 3:00 PM HOSPICE COMMUNITY LIAISON) Pathologist [facility] CRP <0.30 0.00 - 0.50 mg/dL [facility] DEPARTMENT OF PATHOLOGY AND GENOMIC MEDICINE Specimen Plasma specimen Performing Organization Address [facility]/[employer] Phone Number [facility] DEPARTMENT OF PATHOLOGY AND [address] [place] [phone] [place] [address] Basic metabolic panel (06/08/2018 3:00 PM HOSPICE COMMUNITY LIAISON)Only the most recent of3 resultswithin the time period is included. Pathologist [facility] Sodium 143 135 - 148 mEq/L [facility] DEPARTMENT OF PATHOLOGY AND GENOMIC MEDICINE Potassium 4.8 3.5 - 5.0 mEq/L [facility] DEPARTMENT OF PATHOLOGY AND GENOMIC MEDICINE Chloride 110 98 - 112 mEq/L [facility] DEPARTMENT OF PATHOLOGY AND GENOMIC MEDICINE CO2 20 (L) 24 - 31 mEq/L [facility] DEPARTMENT OF PATHOLOGY AND GENOMIC MEDICINE Anion gap 13@ANIO 7 - 15 mEq/L [facility] DEPARTMENT OF PATHOLOGY AND GENOMIC MEDICINE BUN 15 8 - 23 mg/dL [facility] DEPARTMENT OF PATHOLOGY AND GENOMIC MEDICINE Creatinine 1.36 (H) 0.50 - 0.90 mg/dL [facility] DEPARTMENT OF PATHOLOGY AND GENOMIC MEDICINE Glucose 126 (H) 65 - 99 mg/dL [facility] DEPARTMENT OF PATHOLOGY AND GENOMIC MEDICINE Calcium 7.7 (L) 8.8 - 10.2 mg/dL [facility] DEPARTMENT OF PATHOLOGY AND GENOMIC MEDICINE Specimen Plasma specimen Performing Organization Address [facility] Phone Number [facility] DEPARTMENT OF PATHOLOGY AND [address] [place] [address] Thyroid stimulating hormone (05/23/2018 7:33 AM CDT) Pathologist [facility] TSH 5.68 (H) 0.27 - 4.20 uIU/mL [facility] DEPARTMENT OF PATHOLOGY AND GENOMIC MEDICINE Specimen Plasma specimen Performing Organization Address [facility]/[employer] Phone Number [facility] DEPARTMENT OF PATHOLOGY AND [address] [place] [address] T4, free (05/23/2018 7:33 AM CDT) Pathologist [facility] T4, free 1.5 0.9 - 1.7 ng/dL [facility] DEPARTMENT OF PATHOLOGY AND GENOMIC MEDICINE Specimen Plasma specimen Performing Organization Address City/[facility]/Zipcode Phone Number [facility] DEPARTMENT OF PATHOLOGY AND [address] [place] [address] GENOMIC MEDICINE POC glucose (03/29/2018 11:54 AM CDT)Only the most recent of11 resultswithin the time period is included. [facility] POC glucose 162 (H) 65 - 99 mg/dL [facility] DEPARTMENT OF Comment: PATHOLOGY AND HMW Notified RN GENOMIC MEDICINE Meter ID: [id number] Ems Manager: Jose Cash Specimen Performing Organization Address City/[facility]/Zipcode Phone Number [facility] PATHOLOGY AND [address] [place] [address] GENOMIC MEDICINE Estimated GFR (03/29/2018 5:30 AM CDT)Only the most recent of4 resultswithin the time period is included. [facility] GFR Non Af Amer 31 (A) mL/min/1.73 [facility] DEPARTMENT OF m2 PATHOLOGY AND GENOMIC MEDICINE GFR Af Amer 37 (A) mL/min/1.73 [facility] DEPARTMENT OF Comment: PATHOLOGY AND Chronic kidney disease: <60 mL/min/1.73m2 GENOMIC MEDICINE Kidney failure: <15 mL/min/1.73m2 The estimated [...] Americans. Specimen Plasma specimen Performing Organization Address City/[facility]/Zipcode Phone Number [facility] PATHOLOGY AND [address] [place] [address] [place] [facility] POC panel 4 (03/27/2018 1:01 PM CDT) [facility] POC sodium 142 135 - 148 [facility] DEPARTMENT OF mmol/L PATHOLOGY AND GENOMIC MEDICINE POC potassium 4.8 3.5 - 5.0 [facility] DEPARTMENT OF mmol/L PATHOLOGY AND GENOMIC MEDICINE POC hematocrit 32 (L) 37 - 47 % [facility] DEPARTMENT OF PATHOLOGY AND GENOMIC MEDICINE POC glucose 201 (H) 65 - 99 mg/dL [facility] DEPARTMENT OF PATHOLOGY AND GENOMIC MEDICINE POC hemoglobin 10.9 (L) 12.0 - 16.0 [facility] DEPARTMENT OF Comment: g/dL PATHOLOGY AND Meter ID: [id number] [facility] Ems Manager: Noe Gonzalez Specimen Blood Performing Organization Address [facility] Phone Number [facility] DEPARTMENT OF PATHOLOGY AND [address] [place] [address] [facility] XR Ankle 3+ Vw Left (03/23/2018 7:28 PM CDT)Only the most recent of2 resultswithin the time period is included. Specimen Narrative Performed At EXAMINATION:XR ANKLE 3VW LEFT [facility] CLINICAL HISTORY:Fractureankle COMPARISON:None. IMPRESSION: Avulsion fracture of the posterior calcaneal tuberosity traversed by several screws without significant change in alignment. No acute osseous abnormality or malalignment at the tibiotalar joint noted. [id number] Procedure Note Interface, Radiology Results Incoming - 03/23/2018 7:36 PM CDT EXAMINATION: XR ANKLE 3 VW LEFT CLINICAL HISTORY: Fracture ankle COMPARISON: None. IMPRESSION: Avulsion fracture of the posterior calcaneal tuberosity traversed by several screws without significant change in alignment. No acute osseous abnormality or malalignment at the tibiotalar joint noted. [id number] Performing Organization Address [facility] Phone Number [facility] [address] [place] [address] [place] < 1 Hour (02/23/2018 6:33 PM CDT) Specimen Narrative Performed At EXAMINATION:[place] 1 HOUR [facility] C-arm fluoroscopy was requested in OR. ORIF LEFT CALCANOUS OR 4 EVELINA 2 FT:26.2 sec DOSE:0.42 mGy IMPRESSION: Separate operative report will be issued by the physician performing the procedure. [id number] Procedure Note Interface, Radiology Results Incoming - 02/24/2018 8:52 AM CDT EXAMINATION: [place] 1 HOUR C-arm fluoroscopy was requested in OR. ORIF LEFT CALCANOUS OR 4 EVELINA 2 FT:26.2 sec DOSE:0.42 mGy IMPRESSION: Separate operative report will be issued by the physician performing the procedure. [id number] Performing Organization Address [facility] Phone Number [facility] [address] [place] [address] XR Chest 1 Vw Portable (02/23/2018 12:20 AM CDT) Specimen Narrative Performed At EXAMINATION: XR CHEST 1 VW PORTABLE [facility] CLINICAL HISTORY: pre-op clearance COMPARISON:08/11/2016. IMPRESSION: The lungs are clear. No pleural effusion or pneumothorax. The cardiomediastinal silhouette is normal. No acute osseous abnormalities. Left upper extremity stent. [id number] Procedure Note Interface, Radiology Results Incoming - 02/23/2018 12:26 AM CDT EXAMINATION: XR CHEST 1 VW PORTABLE CLINICAL HISTORY: pre-op clearance COMPARISON: 08/11/2016. IMPRESSION: The lungs are clear. No pleural effusion or pneumothorax. The cardiomediastinal silhouette is normal. No acute osseous abnormalities. Left upper extremity stent. [facility]-[id number] Performing Organization Address [facility] Phone Number [facility] [address] [place] [address] XR Calcaneus 2+ Vw Left (02/22/2018 10:59 PM CDT) Specimen Narrative Performed At EXAMINATION:XR CALCANEUS 2VW LEFT [...] fractures. Extensive vascular calcifications. Performing Organization Address [facility] Phone Number [facility] [address] [place] [address] XR Foot 3+ Vw Left (02/22/2018 10:58 PM CDT) Specimen Narrative Performed At Examination:XR FOOT 3VW LEFT [...] of left foot shows no acute abnormality. [facility]-[id number] Procedure Note Hm Interface, Radiology Results Incoming - 02/22/2018 11:09 [...] of left foot shows no acute abnormality. [facility]-[id number] Performing Organization Address City/State/Zipcode Phone Number [facility] [address] [place] [address] after 02/18/2018 ([place]) [place] [address] Advance Directives Patient has advance care planning documents, and code status on file. For more information, please contact:Los Mcghee[address] [place] [address] Code Status Date Activated Date Inactivated Comments Full Code 12/30/2017 12:19 AM 12/31/2017 7:26 PM Code Status decision reached by: Patient Full Code 10/26/2017 7:42 PM 10/29/2017 5:42 PM Code Status decision reached by: Patient
--- OUTSIDE RECORDS SUMMARY | 2019-02-19 08:27 | XMS REPORT | Clinical Summary ---
:1955 Author Organization [facility] Address [address] [place] [address] Care Team Providers Name Role Phone Regan [...] Not on file Implants Implanted Type Area Per Diem Nurse Device Shelf Model / Identifier Expiration Serial / Date Lot Plate,Volar Dist Rad Va-Lcp 2-Clmn 2.4mm Ti 6h Hd/2h Shaft Lt - [id number] Fracture/F Left: Wrist [employer] [id number] / Implanted: Qty: 1 on 01/03/2015 by Gabby Serrano MD ixation / [id number] Screw,Locking Stardrive Ti Va 2.4x20mm - [id number] Fracture/F [employer] [id number] / Implanted: Qty: 4 on 01/03/2015 by Gabby Serrano MD ixation / Screw,Cortex Ti Selftap 2.7x14 - [id number] Fracture/F SYNTHES TRUMA [id number] / Implanted: Qty: 2 on 01/03/2015 by Gabby Serrano MD ixation / Tiss Live Frm Strtce 6x16cm - Sn/A Tissue Right: [employer] 02/28/2018 [id number] / Implanted: Qty: 1 on 11/23/2016 by Giovanni Naik MD Graft/Subs Abdomen N/A / titute [id number] Results Not on fileafter 02/18/2018 Insurance Payer Benefit Plan / Group Subscriber ID Type Phone Address CARE IMPROVEMENT MEDICARE CARE IMPROVEMENT PLUS xxxxxxxxx MGD CARE MEDICAID [place] xxxxxxxxx Medicaid Advance Directives For more information, please contact:[address] [phone] Code Status Date Activated Date Inactivated Comments Full Code 11/23/2016 9:56 PM 11/26/2016 1:41 PM This code status was determined by: Patient Full Code 01/03/2015 8:00 AM 01/03/2015 3:23 PM This code status was determined by: Patient
--- OUTSIDE RECORDS SUMMARY | 2019-02-19 08:27 | XMS REPORT ---
:1955 [facility] Address [facility] [place] [address] Care Team Providers Name Role Phone JORGE KYRA VALLECILLO Unavailable Unavailable Problems This patient has no known problems. Allergies, Adverse Reactions, Alerts This patient has no known allergies or adverse reactions. Medications This patient has no known medications. Results Test Description Test Time Test Comments Text Results Atomic Results Result Comments TISSUE EXAM 2016-11-29 16:45:00 Test Item Value Reference Range Comments LAB AP CPT CODE (BEAKER) (test wooh=5643) [id number] TACROLIMUS [id number] 09:09:00 Test Item Value Reference Range Comments TACROLIMUS BLOOD (BEAKER) (test mhkl=037) 6.8 ng/mL 10.0-20.0 POCT-GLUCOSE [id number] 07:33:00 Test Item Value Reference Range Comments POC-GLUCOSE METER (BEAKER) 138 mg/dL 70-110 TESTED AT [facility] [address] [facility] (test dbqp=4332) [facility] [address] BASIC METABOLIC [id number] 05:08:00 Test Item Value Reference Range Comments SODIUM (BEAKER) (test 139 meq/L 136-145 hdty=764) POTASSIUM (BEAKER) (test 4.7 meq/L 3.5-5.1 xozm=114) CHLORIDE (BEAKER) (test 109 meq/L 98-107 qokm=479) CO2 (BEAKER) (test 23 meq/L 22-29 fakv=506) BLOOD UREA NITROGEN 21 mg/dL 7-21 (BEAKER) (test vuyf=507) CREATININE (BEAKER) (test 1.08 mg/dL 0.57-1.25 rrvx=892) GLUCOSE RANDOM (BEAKER) 93 mg/dL 70-105 (test huvr=656) CALCIUM (BEAKER) (test 8.8 mg/dL 8.4-10.2 vruz=570) EGFR (BEAKER) (test 52 mL/min/1.73 sq m ESTIMATED GFR IS NOT lmqo=4706) ACCURATE CREATININE CLEARANCE IN PREDICTING GLOMERULAR FILTRATION RATE. ESTIMATED GFR IS NOT APPLICABLE FOR DIALYSIS PATIENTS. CBC W/PLT COUNT & AUTO [id number] 04:51:00 Test Item Value Reference Range Comments WHITE BLOOD CELL COUNT (BEAKER) (test lcfd=230) 4.1 K/ L 4.0-10.0 RED BLOOD CELL COUNT (BEAKER) (test qurm=386) 3.47 M/ L 4.00-5.00 HEMOGLOBIN (BEAKER) (test mwfo=366) 11.0 GM/DL 12.0-15.0 HEMATOCRIT (BEAKER) (test vxxx=977) 34.1 % 36.0-45.0 MEAN CORPUSCULAR VOLUME (BEAKER) (test epef=336) 98.3 fL 82.0-99.0 MEAN CORPUSCULAR HEMOGLOBIN (BEAKER) (test 31.6 pg 27.0-33.0 sqmq=959) MEAN CORPUSCULAR HEMOGLOBIN CONC (BEAKER) (test 32.1 GM/DL 32.0-36.0 hpvd=833) RED CELL DISTRIBUTION WIDTH (BEAKER) (test 11.9 % 10.3-14.2 reyk=077) PLATELET COUNT (BEAKER) (test sgvx=528) 148 K/CU MM 150-430 MEAN PLATELET VOLUME (BEAKER) (test rlyg=254) 8.3 fL 6.5-10.5 NUCLEATED RED BLOOD CELLS (BEAKER) (test 0 /100 WBC 0-0 asjw=064) NEUTROPHILS RELATIVE PERCENT (BEAKER) (test 77 % vrng=415) LYMPHOCYTES RELATIVE PERCENT (BEAKER) (test 11 % aaks=569) MONOCYTES RELATIVE PERCENT (BEAKER) (test 12 % acdm=764) EOSINOPHILS RELATIVE PERCENT (BEAKER) (test 1 % vsif=045) BASOPHILS RELATIVE PERCENT (BEAKER) (test 0 % ngvy=829) NEUTROPHILS ABSOLUTE COUNT (BEAKER) (test 3.17 K/ L 1.80-8.00 pgkk=713) LYMPHOCYTES ABSOLUTE COUNT (BEAKER) (test 0.45 K/ L 1.48-4.50 nqrq=537) MONOCYTES ABSOLUTE COUNT (BEAKER) (test 0.50 K/ L 0.00-1.30 aoyg=462) EOSINOPHILS ABSOLUTE COUNT (BEAKER) (test 0.02 K/ L 0.00-0.50 srfp=856) BASOPHILS ABSOLUTE COUNT (BEAKER) (test 0.00 K/ L 0.00-0.20 yaur=599) 0.00POCT-GLUCOSE [id number] 01:09:00 Test Item Value Reference Range Comments POC-GLUCOSE METER (BEAKER) 97 mg/dL 70-110 TESTED AT [address] (test bwyl=1519) [facility] [address] POCT-GLUCOSE [id number] 21:30:00 Test Item Value Reference Range Comments POC-GLUCOSE METER (BEAKER) 424 mg/dL 70-110 Notified BO PILLAI/TESTED AT [facility] (test sdjl=5862) [address] [place] [address] POCT-GLUCOSE [id number] 17:04:00 Test Item Value Reference Range Comments POC-GLUCOSE METER (BEAKER) 198 mg/dL 70-110 TESTED AT [address] (test xbmi=4972) [place] [id number] POCT-GLUCOSE [id number] 12:51:00 Test Item Value Reference Range Comments POC-GLUCOSE METER (BEAKER) 205 mg/dL 70-110 TESTED AT [address] (test isdz=5387) [place] [address] TACROLIMUS [id number] 12:35:00 Test Item Value Reference Range Comments TACROLIMUS BLOOD (BEAKER) (test kpyi=959) 5.9 ng/mL 10.0-20.0 POCT-GLUCOSE [id number] 08:32:00 Test Item Value Reference Range Comments POC-GLUCOSE METER (BEAKER) 60 mg/dL 70-110 TESTED AT [address] (test zgqt=8067) [facility] [address] POCT-GLUCOSE [id number] 21:41:00 Test Item Value Reference Range Comments POC-GLUCOSE METER (BEAKER) 202 mg/dL 70-110 TESTED AT [address] (test ryzu=0467) [facility] [address] POCT-GLUCOSE [id number] 17:36:00 Test Item Value Reference Range Comments POC-GLUCOSE METER (BEAKER) 191 mg/dL 70-110 TESTED AT [address] (test qhdv=2257) [place] [id number] POCT-GLUCOSE [id number] 11:01:00 Test Item Value Reference Range Comments POC-GLUCOSE METER (BEAKER) 232 mg/dL 70-110 TESTED AT [address] (test rvdw=9349) [place] [address] TACROLIMUS [id number] 10:16:00 Test Item Value Reference Range Comments TACROLIMUS BLOOD (BEAKER) (test tykx=510) 8.3 ng/mL 10.0-20.0 POCT-GLUCOSE [id number] 08:16:00 Test Item Value Reference Range Comments POC-GLUCOSE METER (BEAKER) 366 mg/dL 70-110 TESTED AT [address] (test kmtl=6690) [place] [address] BASIC METABOLIC [id number] 06:57:00 Test Item Value Reference Range Comments SODIUM (BEAKER) (test 138 meq/L 136-145 ddmv=763) POTASSIUM (BEAKER) (test 5.1 meq/L 3.5-5.1 lcoe=478) CHLORIDE (BEAKER) (test 108 meq/L 98-107 vqcv=674) CO2 (BEAKER) (test 22 meq/L 22-29 bnnl=366) BLOOD UREA NITROGEN 26 mg/dL 7-21 (BEAKER) (test xccq=070) CREATININE (BEAKER) (test 1.38 mg/dL 0.57-1.25 xrnd=618) GLUCOSE RANDOM (BEAKER) 271 mg/dL 70-105 (test dmvg=908) CALCIUM (BEAKER) (test 8.2 mg/dL 8.4-10.2 mqbl=349) EGFR (BEAKER) (test 39 mL/min/1.73 sq m ESTIMATED GFR IS NOT oyib=9606) ACCURATE CREATININE CLEARANCE IN PREDICTING GLOMERULAR FILTRATION RATE. ESTIMATED GFR IS NOT APPLICABLE FOR DIALYSIS PATIENTS. HEMOGLOBIN AND [id number] 06:40:00 Test Item Value Reference Range Comments HEMOGLOBIN (BEAKER) (test oala=855) 11.4 GM/DL 12.0-15.0 HEMATOCRIT (BEAKER) (test yzje=854) 36.1 % 36.0-45.0 POCT-GLUCOSE [id number] 23:30:00 Test Item Value Reference Range Comments POC-GLUCOSE METER (BEAKER) 274 mg/dL 70-110 TESTED AT [facility] [address] (test vpsy=5797) [facility] [address] BASIC METABOLIC [id number] 18:49:00 Test Item Value Reference Range Comments SODIUM (BEAKER) (test 142 meq/L 136-145 euao=577) POTASSIUM (BEAKER) (test 4.2 meq/L 3.5-5.1 bene=383) CHLORIDE (BEAKER) (test 114 meq/L 98-107 zfdk=236) CO2 (BEAKER) (test 20 meq/L 22-29 vfsy=232) BLOOD UREA NITROGEN 28 mg/dL 7-21 (BEAKER) (test nhkf=420) CREATININE (BEAKER) (test 1.36 mg/dL 0.57-1.25 xfpu=660) GLUCOSE RANDOM (BEAKER) 177 mg/dL 70-105 (test scli=964) CALCIUM (BEAKER) (test 8.3 mg/dL 8.4-10.2 yiir=411) EGFR (BEAKER) (test 40 mL/min/1.73 sq m ESTIMATED GFR IS NOT ebrh=9486) ACCURATE CREATININE CLEARANCE IN PREDICTING GLOMERULAR FILTRATION RATE. ESTIMATED GFR IS NOT APPLICABLE FOR DIALYSIS PATIENTS. HEMOGLOBIN AND [id number] 18:35:00 Test Item Value Reference Range Comments HEMOGLOBIN (BEAKER) (test hlpj=489) 11.5 GM/DL 12.0-15.0 HEMATOCRIT (BEAKER) (test zrqv=763) 35.6 % 36.0-45.0 BASIC METABOLIC [id number] 12:08:00 Test Item Value Reference Range Comments SODIUM (BEAKER) (test 140 meq/L 136-145 vkgu=575) POTASSIUM (BEAKER) (test 4.4 meq/L 3.5-5.1 kszb=213) CHLORIDE (BEAKER) (test 106 meq/L 98-107 znen=099) CO2 (BEAKER) (test 23 meq/L 22-29 blcj=484) BLOOD UREA NITROGEN 35 mg/dL 7-21 (BEAKER) (test brqw=025) CREATININE (BEAKER) (test 1.47 mg/dL 0.57-1.25 lieh=553) GLUCOSE RANDOM (BEAKER) 69 mg/dL 70-105 (test gbjo=828) CALCIUM (BEAKER) (test 9.9 mg/dL 8.4-10.2 taur=335) EGFR (BEAKER) (test 36 mL/min/1.73 sq m ESTIMATED GFR IS NOT vjhz=6016) ACCURATE CREATININE CLEARANCE IN PREDICTING GLOMERULAR FILTRATION RATE. ESTIMATED GFR IS NOT APPLICABLE FOR DIALYSIS PATIENTS. CBC (HEMOGRAM ONLY)2016-11-23 12:01:00 Test Item Value Reference Range Comments WHITE BLOOD CELL COUNT (BEAKER) (test tkdl=876) 6.0 K/ L 4.0-10.0 RED BLOOD CELL COUNT (BEAKER) (test oezg=778) 3.84 M/ L 4.00-5.00 HEMOGLOBIN (BEAKER) (test csbg=360) 12.0 GM/DL 12.0-15.0 HEMATOCRIT (BEAKER) (test jzgu=999) 37.4 % 36.0-45.0 MEAN CORPUSCULAR VOLUME (BEAKER) (test obzb=844) 97.3 fL 82.0-99.0 MEAN CORPUSCULAR HEMOGLOBIN (BEAKER) (test 31.3 pg 27.0-33.0 dtir=233) MEAN CORPUSCULAR HEMOGLOBIN CONC (BEAKER) (test 32.2 GM/DL 32.0-36.0 hevm=451) RED CELL DISTRIBUTION WIDTH (BEAKER) (test 11.8 % 10.3-14.2 zocz=329) PLATELET COUNT (BEAKER) (test sqcp=858) 183 K/CU MM 150-430 MEAN PLATELET VOLUME (BEAKER) (test ouxk=145) 8.3 fL 6.5-10.5 NUCLEATED RED BLOOD CELLS (BEAKER) (test 0 /100 WBC 0-0 hqvn=756) 0.00POTASSIUM-STAT [id number] 11:43:00 Test Item Value Reference Range Comments POTASSIUM (BEAKER) (test aedj=358) 4.3 meq/L 3.6-5.5 POCT-GLUCOSE [id number] 11:34:00 Test Item Value Reference Range Comments POC-GLUCOSE METER (BEAKER) 82 mg/dL 70-110 TESTED AT [facility] [address] [facility] (test owar=6585) [facility] [address] URINE [id number] 11:19:00 Test Item Value Reference Range Comments CULTURE (BEAKER) (test 20-29,000 col/mL skin tea etfp=2493) URINALYSIS W/ [id number] 15:16:00 Test Item Value Reference Range Comments COLOR (BEAKER) (test fjgv=942) Yellow CLARITY (BEAKER) (test trod=062) Clear SPECIFIC GRAVITY UA (BEAKER) (test nwvp=787) 1.013 1.001-1.035 PH UA (BEAKER) (test aasj=167) 6.0 5.0-8.0 PROTEIN UA (BEAKER) (test ncsx=372) Negative Negative GLUCOSE UA (BEAKER) (test lhrg=138) 30 mg/dL Negative KETONES UA (BEAKER) (test obbr=653) Negative Negative BILIRUBIN UA (BEAKER) (test qokz=383) Negative Negative BLOOD UA (BEAKER) (test joic=780) Negative Negative NITRITE UA (BEAKER) (test qyxs=067) Negative Negative LEUKOCYTE ESTERASE UA (BEAKER) (test xuhh=498) Trace Negative UROBILINOGEN UA (BEAKER) (test bbov=350) 0.2 mg/dL 0.2-1.0 RBC UA (BEAKER) (test bcbd=690) < /HPF WBC UA (BEAKER) (test nfja=262) < /HPF SQUAMOUS EPITHELIAL (BEAKER) (test dxsi=009) < /HPF SOURCE(BEAKER) (test mpvz=2389) CBC W/PLT COUNT & AUTO [id number] 14:56:00 Test Item Value Reference Range Comments WHITE BLOOD CELL COUNT (BEAKER) (test qdqh=291) 4.2 K/ L 4.0-10.0 RED BLOOD CELL COUNT (BEAKER) (test tpmu=169) 3.68 M/ L 4.00-5.00 HEMOGLOBIN (BEAKER) (test ekoi=956) 11.6 GM/DL 12.0-15.0 HEMATOCRIT (BEAKER) (test abmb=048) 36.4 % 36.0-45.0 MEAN CORPUSCULAR VOLUME (BEAKER) (test aexq=344) 98.8 fL 82.0-99.0 MEAN CORPUSCULAR HEMOGLOBIN (BEAKER) (test 31.4 pg 27.0-33.0 ruvq=801) MEAN CORPUSCULAR HEMOGLOBIN CONC (BEAKER) (test 31.8 GM/DL 32.0-36.0 mwpa=262) RED CELL DISTRIBUTION WIDTH (BEAKER) (test 12.8 % 10.3-14.2 gypl=756) PLATELET COUNT (BEAKER) (test tlfe=791) 167 K/CU MM 150-430 MEAN PLATELET VOLUME (BEAKER) (test htoc=572) 8.4 fL 6.5-10.5 NUCLEATED RED BLOOD CELLS (BEAKER) (test 0 /100 WBC 0-0 rjdl=575) NEUTROPHILS RELATIVE PERCENT (BEAKER) (test 87 % vake=062) LYMPHOCYTES RELATIVE PERCENT (BEAKER) (test 8 % cpnh=625) MONOCYTES RELATIVE PERCENT (BEAKER) (test 5 % mbft=990) EOSINOPHILS RELATIVE PERCENT (BEAKER) (test 0 % orfx=509) BASOPHILS RELATIVE PERCENT (BEAKER) (test 0 % fxft=662) NEUTROPHILS ABSOLUTE COUNT (BEAKER) (test 3.68 K/ L 1.80-8.00 zmic=141) LYMPHOCYTES ABSOLUTE COUNT (BEAKER) (test 0.32 K/ L 1.48-4.50 mauv=696) MONOCYTES ABSOLUTE COUNT (BEAKER) (test 0.20 K/ L 0.00-1.30 ttgk=520) EOSINOPHILS ABSOLUTE COUNT (BEAKER) (test 0.01 K/ L 0.00-0.50 vtby=293) BASOPHILS ABSOLUTE COUNT (BEAKER) (test 0.00 K/ L 0.00-0.20 xffr=703) 0.00[facility] METABOLIC [id number] 14:55:00 Test Item Value Reference Range Comments SODIUM (BEAKER) (test 140 meq/L 136-145 ochv=497) POTASSIUM (BEAKER) (test 5.3 meq/L 3.5-5.1 Specimen slightly vehd=851) hemolyzed CHLORIDE (BEAKER) (test 108 meq/L 98-107 peqv=340) CO2 (BEAKER) (test 22 meq/L 22-29 gjnk=564) BLOOD UREA NITROGEN 28 mg/dL 7-21 (BEAKER) (test sdqt=234) CREATININE (BEAKER) (test 1.61 mg/dL 0.57-1.25 Specimen slightly xjjx=484) hemolyzed GLUCOSE RANDOM (BEAKER) 209 mg/dL 70-105 (test usdo=337) CALCIUM (BEAKER) (test 9.3 mg/dL 8.4-10.2 xvts=488) EGFR (BEAKER) (test 33 mL/min/1.73 sq m ESTIMATED GFR IS NOT vnan=5052) ACCURATE CREATININE CLEARANCE IN PREDICTING GLOMERULAR FILTRATION RATE. ESTIMATED GFR IS NOT APPLICABLE FOR DIALYSIS PATIENTS. [id number] 14:51:00 Test Item Value Reference Range Comments PARTIAL THROMBOPLASTIN TIME (BEAKER) (test 30.7 seconds 22.5-36.0 rpqg=548) PROTHROMBIN TIME/[id number] 14:50:00 Test Item Value Reference Range Comments PROTIME (BEAKER) (test haxr=811) 14.3 seconds 11.7-14.7 INR (BEAKER) (test xbgq=364) 1.1 <=5.9 RECOMMENDED COUMADIN/WARFARIN INR THERAPY RANGESSTANDARD DOSE: 2.0 - 3.0 Includes: PROPHYLAXIS forvenous thrombosis, systemic embolization; TREATMENT for venous thrombosis and/or pulmonary embolus.HIGH RISK: Target INR is 2.5-3.5 for patients with mechanical heart valves.
[2019-02-19 09:21] LABS: Urine Bacteria NONE SEEN /HPF (<20); Urine Culture Reflex Order NOT NEEDED; Urine RBC <5 /HPF (NONE SEEN)
[2019-02-19 10:01] LABS: Urine Blood TRACE (NEG); Urine Glucose NEGATIVE (NEG); Urine Protein NEGATIVE (NEG)
--- NOTE | 2019-02-19 10:15 | RAD REPORT ---
EXAM DESCRIPTION: USExtrem Venous W Compress Bil02/19/2019 10:09 am CLINICAL HISTORY: Bilateral leg swelling COMPARISON: none FINDINGS: The common femoral, superficial femoral, popliteal and posterior tibial veins bilaterally are compressible and demonstrate augmentation. Doppler demonstrates good flow. IMPRESSION: No evidence of deep venous thrombosis involving either lower extremity.
[2019-02-19 10:17] LABS: Absolute Lymphocytes (CBC) 0.4 K/uL (0.7-4.9); Basophils % 0.6 % (0-1.3); Eosinophils % 0.5 % (0-4.4); Hematocrit 41.5 % (36.0-45.0); Lymphocytes % 10.9 % (15.3-44.8); MPV 9.6 fL (7.6-11.3); RBC Red Blood Cell Count 4.47 M/uL (3.86-4.86)
--- NOTE | 2019-02-19 10:22 | RAD REPORT ---
EXAM DESCRIPTION: CT - Stone Protocol - 02/19/2019 10:11 am CLINICAL HISTORY: Flank pain. ABD PAIN COMPARISON: Abdomen Pelvis Wo Contrast dated 10/25/2017 TECHNIQUE: Axial images were obtained without oral or IV contrast. Lack of contrast limits solid org an and vascular assessment. The vvzpl-ij-yhyw spans the entirety of the system partially obscuring uppermost abdomen and lung bases. Coronal reformatted images were obtained and reviewed. All CT scans are performed using dose optimization technique as appropriate and may include automated exposure control or mA/KV adjustment according to patient size. FINDINGS: The lower lung beck are clear. Small hiatal hernia. Imaged portions of the liver and spleen show no suspicious findings on non-contrast imaging. The panc reas and adrenal glands are normal. No pathologic lymphadenopathy in the abdomen or pelvis. Moderate atherosclerosis. The right kidney appears surgically absent. The left [place] kidney is quite atrophic. Right lower winston drant transplant kidney is seen without significant hydronephrosis. The transplant kidney appears sli ghtly edematous, although less so compared to comparative study. No bowel obstruction, free air, free fluid or abscess. There is a moderate amount of stool in the col on. No significant bony abnormality. IMPRESSION: Moderate retained stool in the colon. Right lower quadrant transplant kidney appears slightly edematous but otherwise without worrisome fin ding.
[2019-02-19 10:31] LABS: BUN Blood Urea Nitrogen 28 mg/dL (7-18); Bicarbonate 23 mmol/L (21-32); C-Reactive Protein < 2.90 mg/L (<3.00); Glucose Level 76 mg/dL (74-106); Magnesium 1.7 mg/dL (1.8-2.4); Phosphorus 2.5 mg/dL (2.5-4.9); Potassium 3.1 mmol/L (3.5-5.1); Sodium Level 144 mmol/L (136-145)
[2019-02-19] MEDS ORDERED: BISACODYL 10 MG RECTAL SUPP ONE (10:56)
[2019-02-19] MEDS ORDERED: POLYETHYL GLY 3350 17 GM/DOSE ONE (10:56)
[2019-02-19] MEDS ORDERED: NA CHLORIDE 0.9% 500 ML ONE (10:56)
--- NOTE | 2019-02-19 11:26 | EDPHYS ---
Physician Documentation [facility] Name: Paola Mishra Age: 63 yrs Sex: Female : 1955 Arrival Date: 02/19/2019 Time: 08:23 Bed 14 Private MD: Ambrosio Raymundo ED Physician Tyler Guillory HPI: 02/19 10:04 This 63 yrs old Female presents to ER via Ambulatory with complaints of snw Abdominal Pain. 10:04 The patient presents with abdominal pain in the lower abdomen. Onset: The snw symptoms/episode began/occurred acutely. The symptoms do not radiate. Associated signs and symptoms: none. The symptoms are described as crampy. Modifying factors: The symptoms are alleviated by nothing. Severity of pain: At its worst the pain was mild moderate. The patient has not experienced similar symptoms in the past. It is unknown whether or not the patient has recently seen a physician. kidney transplant 9 years ago at [facility]. Historical: - Allergies: 08:41 NKDA; tw2 - Home Meds: 08:41 amlodipine 10 mg tab 1 tab once daily for Hypertension [Active]; omeprazole 40 mg Oral tw2 cpDR 1 cap once daily [Active]; clonidine HCl 0.1 mg Oral tab 1 tab 3 times per day for Hypertension [Active]; aspirin 81 mg Oral chew 1 tab once daily [Active]; gabapentin 100 mg Oral tab [Active]; Humulin N Pen 100 unit/mL (3 mL) Sub-Q inpn 15 15-20 units [Active]; Tradjenta 5 mg oral tab 1 tab once daily [Active]; megestrol 40 mg Oral tab 1 tab 4 times per day [Active]; mycophenolate mofetil 500 mg Oral tab 1 tabs 2 times per day for Prevention of Kidney Transplant Rejection [Active]; omeprazole 40 mg Oral cpDR 1 cap once daily [Active]; prednisone 5 mg Oral tab 1 tab once daily [Active]; simvastatin 20 mg Oral tab 1 tab once daily [Active]; tacrolimus 1 mg oral cap every 12 hours [Active]; - PMHx: 08:41 kidney transplant; Hypertension; Hyperlipidemia; ESRD; no longer does dialysis, tw2 recieved kidney transplant; Diabetes - IDDM; - PSHx: 08:41 kidney transplant; left foot; tw2 - Immunization history:: Adult Immunizations. - Social history:: Smoking status: . - Ebola Screening: : Patient denies travel to an Ebola-affected area in the 21 days before illness onset. ROS: 10:03 Constitutional: Negative for fever, chills, and weight loss, Eyes: Negative for injury, snw pain, redness, and discharge, ENT: Negative for injury, pain, and discharge, Neck: Negative for injury, pain, and swelling, Cardiovascular: Negative for chest pain, palpitations, and edema, Respiratory: Negative for shortness of breath, cough, wheezing, and pleuritic chest pain, Back: Negative for injury and pain, : Negative for injury, bleeding, discharge, and swelling, MS/Extremity: Negative for injury and deformity, Skin: Negative for injury, rash, and discoloration, Neuro: Negative for headache, weakness, numbness, tingling, and seizure, Psych: Negative for depression, anxiety, suicide ideation, homicidal ideation, and hallucinations. 10:03 Abdomen/GI: Positive for abdominal pain, abdominal cramps, of the suprapubic area, right lower quadrant and left lower quadrant. Exam: 08:53 Constitutional: This is a well developed, well nourished patient who is awake, alert, snw and in no acute distress. Head/Face: Normocephalic, atraumatic. Eyes: Pupils equal round and reactive to light, extra-ocular motions intact. Lids and lashes normal. Conjunctiva and sclera are non-icteric and not injected. Cornea within normal limits. Periorbital areas with no swelling, redness, or edema. ENT: Nares patent. No nasal discharge, no septal abnormalities noted. Tympanic membranes are normal and external auditory canals are clear. Oropharynx with no redness, swelling, or masses, exudates, or evidence of obstruction, uvula midline. Mucous membranes moist. Neck: Trachea midline, no thyromegaly or masses palpated, and no cervical lymphadenopathy. Supple, full range of motion without nuchal rigidity, or vertebral point tenderness. No Meningismus. Chest/axilla: Normal chest wall appearance and motion. Nontender with no deformity. No lesions are appreciated. Cardiovascular: Regular rate and rhythm with a normal S1 and S2. No gallops, murmurs, or rubs. Normal PMI, no JVD. No pulse deficits. Respiratory: Lungs have equal breath sounds bilaterally, clear to auscultation and percussion. No rales, rhonchi or wheezes noted. No increased work of breathing, no retractions or nasal flaring. 08:53 Cardiovascular: Regular rate and rhythm with a normal S1 and S2. No gallops, murmurs, or rubs. Normal PMI, no JVD. No pulse deficits. Mild pedal edema bilaterally Back: No spinal tenderness. No costovertebral tenderness. Full range of motion. Skin: Warm, dry with normal turgor. Normal color with no rashes, no lesions, and no evidence of cellulitis. MS/ Extremity: Pulses equal, no cyanosis. Neurovascular intact. Full, normal range of motion. Neuro: Awake and alert, GCS 15, oriented to person, place, time, and situation. Cranial nerves II-XII grossly intact. Motor strength 5/5 in all extremities. Sensory grossly intact. Cerebellar exam normal. Normal gait. Psych: Awake, alert, with orientation to person, place and time. Behavior, mood, and affect are within normal limits. 08:53 Abdomen/GI: Bowel sounds: hyperactive, in all quadrants. Vital Signs: 08:35 BP 136 / 39; Pulse 91; Resp 17; Temp 98.1(O); Pulse Ox 100% ; Weight 56.7 kg (R); tw2 Height 5 ft. 1 in. (154.94 cm); Pain 5/10; 10:17 BP 160 / 70; Pulse 86; Resp 18; Temp 97.8; Pulse Ox 100% on R/A; mh5 12:09 BP 145 / 65; Pulse 79; Resp 17; Pulse Ox 100% on R/A; tw2 08:35 Body Mass Index 23.62 (56.70 kg, 154.94 cm) tw2 MDM: 08:53 Patient medically screened. snw 11:26 Data reviewed: vital signs, nurses notes. Data interpreted: Pulse oximetry: on room air snw is 100 %. Interpretation: normal. Counseling: I had a detailed discussion with the patient and/or guardian regarding: the historical points, exam findings, and any diagnostic results supporting the discharge/admit diagnosis, the presence of at least one elevated blood pressure reading (>120/80) during this emergency department visit, lab results, radiology results, the need for outpatient follow up, to return to the emergency department if symptoms worsen or persist or if there are any questions or concerns that arise at home. Response to treatment: the patient's symptoms have mildly improved after treatment. Special discussion: Based on the patient's Hx, exam, and Dx evaluation, there is no indication for emergent surgery or inpatient Tx. It is understood by the patient/guardian that if the Sx's persist or worsen they need to return immediately for re-evaluation. I have referred the patient to see his PCP for further evaluation of high blood pressure. Based on the history and exam findings, there is no indication for further emergent testing or inpatient evaluation. I discussed with the patient/guardian the need to see the primary care provider for further evaluation of the symptoms. 02/19 08:43 Order name: Urine Culture [facility] 02/19 08:43 Order name: Urine Microscopic Only; Complete Time: 09:27 [facility] 02/19 08:49 Order name: CBC with Diff; Complete Time: 10:29 [facility] 02/19 08:49 Order name: Chem 7; Complete Time: 10:32 [facility] 02/19 08:49 Order name: CRP; Complete Time: 10:32 [facility] 02/19 08:49 Order name: Blood Culture Adult (2) 02/19 08:43 Order name: CT Stone Protocol; Complete Time: 10:29 [facility] 02/19 08:50 Order name: Magnesium; Complete Time: 10:32 [facility] 02/19 08:50 Order name: Phosphorus; Complete Time: 10:32 [facility] 02/19 08:50 Order name: US Extremity Venous W Compression Jose Enrique; Complete Time: 10:29 [facility] 02/19 09:35 Order name: Urine Dipstick--Ancillary (enter results); Complete Time: 10:03 bd 02/19 08:43 Order name: Urine Dipstick-Ancillary (obtain specimen); Complete Time: 09:06 [facility] 02/19 08:43 Order name: Cath; Complete Time: 09: [facility] 02/19 10:36 Order name: IV Start; Complete Time: 10:53 tw2 Administered Medications: 10:45 Drug: Dulcolax Suppository 10 mg Route: PA; tw2 12:06 Follow up: Response: No adverse reaction tw2 10:52 Drug: Miralax 17 grams Route: PO; tw2 12:06 Follow up: Response: No adverse reaction tw2 10:53 Drug: NS 0.9% 500 ml Route: IV; Rate: bolus; Site: right antecubital; tw2 12:06 Follow up: Response: No adverse reaction; IV Status: Completed infusion; IV Intake: tw2 500ml Disposition: 15: Co-signature as Attending Physician, Tyler Guillory MD. rn Disposition: 02/19/19 11:25 Discharged to Home. Impression: Lower abdominal pain, unspecified, Dehydration, Constipation. - Condition is Stable. - Discharge Instructions: Abdominal Pain, Adult, Constipation, Adult, Dehydration, Adult, High-Fiber Diet, Potassium Content of Foods, Hypertension, Rehydration, Adult. - Prescriptions for Miralax 17 gram/dose Oral - take 1 packet by ORAL route once daily dilute powder in 8 ounces of water or juice; 1 box. - Medication Reconciliation Form, Thank You Letter, Antibiotic Education, Prescription Opioid Use form. - Follow up: Ambrosio Raymundo DO; When: 1 - 2 days; Reason: Recheck today's complaints, Continuance of care, Re-evaluation by your physician. Follow up: Emergency Department; When: As needed; Reason: Worsening of condition. Signatures: Dispatcher [employer] EDMS Linda Altman, MEDICAL CLAIMS ANALYST-C MEDICAL CLAIMS ANALYST-Csnw Tyler Guillory MD MD rn Wise, Tara, RN RN tw2 Corrections: (The following items were deleted from the chart) 12:08 11:25 02/19/2019 11:25 Discharged to Home. Impression: Lower abdominal pain, tw2 unspecified; Dehydration; Constipation. Condition is Stable. Forms are Medication Reconciliation Form, Thank You Letter, Antibiotic Education, Prescription Opioid Use. Follow up: Ambrosio Raymundo; When: 1 - 2 days; Reason: Recheck today's complaints, Continuance of care, Re-evaluation by your physician. Follow up: Emergency Department; When: As needed; Reason: Worsening of condition. snw
--- NOTE | 2019-02-19 11:26 | ER ---
Nurse's Notes [facility] Name: Paola Mishra Age: 63 yrs Sex: Female : 1955 Arrival Date: 02/19/2019 Time: 08:23 Bed 14 Private MD: Ambrosio Raymundo Diagnosis: Lower abdominal pain, unspecified;Dehydration;Constipation Presentation: 02/19 08:34 Presenting complaint: Patient states: i am having abdominal pain for 4 days and low tw2 back pain, no nausea vomiting, but frequent small amt of urination at a time, i am a kidney transplant pt. Transition of care: patient was not received from another setting of care. Onset of symptoms was February 19, 2019. Risk Assessment: Do you want to hurt yourself or someone else? Patient reports no desire to harm self or others. Initial Sepsis Screen: Does the patient meet any 2 criteria? No. Patient's initial sepsis screen is negative. Does the patient have a suspected source of infection? No. Patient's initial sepsis screen is negative. Care prior to arrival: None. 08:34 Method Of Arrival: Ambulatory tw2 08:34 Acuity: NOHELIA 3 tw2 Triage Assessment: 08:34 General: Appears in no apparent distress. slender, Behavior is calm, cooperative, tw2 appropriate for age. Pain: Complains of pain in abdomen. GI: Reports lower abdominal pain, Patient currently denies nausea, vomiting. : Reports urinary frequency. Historical: - Allergies: 08:41 NKDA; tw2 - Home Meds: 08:41 amlodipine 10 mg tab 1 tab once daily for Hypertension [Active]; omeprazole 40 mg Oral tw2 cpDR 1 cap once daily [Active]; clonidine HCl 0.1 mg Oral tab 1 tab 3 times per day for Hypertension [Active]; aspirin 81 mg Oral chew 1 tab once daily [Active]; gabapentin 100 mg Oral tab [Active]; Humulin N Pen 100 unit/mL (3 mL) Sub-Q inpn 15 15-20 units [Active]; Tradjenta 5 mg oral tab 1 tab once daily [Active]; megestrol 40 mg Oral tab 1 tab 4 times per day [Active]; mycophenolate mofetil 500 mg Oral tab 1 tabs 2 times per day for Prevention of Kidney Transplant Rejection [Active]; omeprazole 40 mg Oral cpDR 1 cap once daily [Active]; prednisone 5 mg Oral tab 1 tab once daily [Active]; simvastatin 20 mg Oral tab 1 tab once daily [Active]; tacrolimus 1 mg oral cap every 12 hours [Active]; - PMHx: 08:41 kidney transplant; Hypertension; Hyperlipidemia; ESRD; no longer does dialysis, tw2 recieved kidney transplant; Diabetes - IDDM; - PSHx: 08:41 kidney transplant; left foot; tw2 - Immunization history:: Adult Immunizations. - Social history:: Smoking status: . - Ebola Screening: : Patient denies travel to an Ebola-affected area in the 21 days before illness onset. Screenin:43 Abuse screen: Denies threats or abuse. Nutritional screening: No deficits noted. tw2 Tuberculosis screening: No symptoms or risk factors identified. Fall Risk None identified. Assessment: 08:30 General: Appears in no apparent distress. slender, Behavior is calm, cooperative, tw2 appropriate for age. Pain: Complains of pain in left lower quadrant and right lower quadrant. Neuro: Level of Consciousness is awake, alert, obeys commands, Oriented to person, place, time, situation. Cardiovascular: Heart tones S1 S2 Patient's skin is warm and dry. Respiratory: Airway is patent Respiratory effort is even, unlabored, Respiratory pattern is regular, symmetrical, Breath sounds are clear bilaterally. GI: Abdomen is flat, Bowel sounds present X 4 quads. Abd is soft and non tender X 4 quads. Reports lower abdominal pain. : Reports urinary frequency. EENT: No signs and/or symptoms were reported regarding the EENT system. Derm: Musculoskeletal: Range of motion: intact in all extremities. 10:19 Reassessment: Patient appears in no apparent distress at this time. No changes from tw2 previously documented assessment. Patient and/or family updated on plan of care and expected duration. Pain level reassessed. Patient is alert, oriented x 3, equal unlabored respirations, skin warm/dry/pink. 11:00 Reassessment: Patient appears in no apparent distress at this time. No changes from tw2 previously documented assessment. Patient and/or family updated on plan of care and expected duration. Pain level reassessed. Patient is alert, oriented x 3, equal unlabored respirations, skin warm/dry/pink. 12:07 Reassessment: Patient appears in no apparent distress at this time. No changes from tw2 previously documented assessment. Patient and/or family updated on plan of care and expected duration. Pain level reassessed. Patient is alert, oriented x 3, equal unlabored respirations, skin warm/dry/pink. Vital Signs: 08:35 BP 136 / 39; Pulse 91; Resp 17; Temp 98.1(O); Pulse Ox 100% ; Weight 56.7 kg (R); tw2 Height 5 ft. 1 in. (154.94 cm); Pain 5/10; 10:17 BP 160 / 70; Pulse 86; Resp 18; Temp 97.8; Pulse Ox 100% on R/A; mh5 12:09 BP 145 / 65; Pulse 79; Resp 17; Pulse Ox 100% on R/A; tw2 08:35 Body Mass Index 23.62 (56.70 kg, 154.94 cm) tw2 ED Course: 08:23 Patient arrived in ED. as 08:23 Ambrosio Raymundo DO is Private Physician. as 08:34 Jessie Sanchez, BO is Primary Nurse. tw2 08:35 Triage completed. tw2 08:41 Linda Altman FNP-C is PHCP. snw 08:41 Tyler Guillory MD is Attending Physician. snw 08:42 Arm band placed on. tw2 08:43 Bed in low position. Call light in reach. Adult w/ patient. tw2 09:03 Radiology exam delayed due to us has pt at this time. kw1 09:05 Urine collected: straight cath specimen, clear, Amount Returned: 300mL. Straight cath mh5 inserted, using sterile technique, 16 Fr. Specimen obtained. 300. 09:06 Urine Culture Sent. mh5 09:06 Urine Microscopic Only Sent. mh5 09:07 Warm blanket given. Pulse ox on. NIBP on. mh5 10:05 Missed attempt(s): 22 gauge in right antecubital area. blood collected. Bleeding tw2 controlled, band aid applied, catheter tip intact. 10:11 US Extremity Venous W Compression Jose Enrique In Process Unspecified. EDMS 10:14 CT Stone Protocol In Process Unspecified. EDMS 10:15 CBC with Diff Sent. tw2 10:15 Chem 7 Sent. tw2 10:15 CRP Sent. tw2 10:15 Magnesium Sent. tw2 10:15 Phosphorus Sent. tw2 10:53 Inserted saline lock: 20 gauge in right antecubital area, using aseptic technique. tw2 11:23 Ambrosio Raymundo DO is Referral Physician. snw 12:07 No provider procedures requiring assistance completed. IV discontinued, intact, tw2 bleeding controlled, No redness/swelling at site. Pressure dressing applied. Administered Medications: 10:45 Drug: Dulcolax Suppository 10 mg Route: [place]; tw2 12:06 Follow up: Response: No adverse reaction tw2 10:52 Drug: Miralax 17 grams Route: PO; tw2 12:06 Follow up: Response: No adverse reaction tw2 10:53 Drug: NS 0.9% 500 ml Route: IV; Rate: bolus; Site: right antecubital; tw2 12:06 Follow up: Response: No adverse reaction; IV Status: Completed infusion; IV Intake: tw2 500ml Intake: 12:06 IV: 500ml; Total: 500ml. tw2 Outcome: 11:25 Discharge ordered by MD. snw 12:08 Discharged to home ambulatory, with family. tw2 12:08 Condition: stable 12:08 Discharge instructions given to patient, family, Instructed on discharge instructions, follow up and referral plans. medication usage, Demonstrated understanding of instructions, follow-up care, medications, Prescriptions given X 1. 12:08 Patient left the ED. tw2 Signatures: Dispatcher [employer] EDMS Linda Altman, KORY-C TILE SPRAYER-Brittny Vera Tara, RN RN tw2 Aparna Sorto [facility]ie Mills [facility]
[2019-02-19 12:18] VITALS: O2SAT 100
[2019-02-19 12:20] VITALS: BP 160/70; TEMP 97.8
== END 2019-02-19 12:08 | disposition home or self-care (01) ==
LOC: ER 08:20
DX: E86.0 Dehydration (principal); K59.00 Constipation, unspecified; Z94.0 Kidney transplant status; E11.22 Type 2 diabetes mellitus with diabetic chronic kidney disease; I12.0 Hypertensive chronic kidney disease with stage 5 chronic kidney disease or end stage renal disease; N18.6 End stage renal disease; Z79.82 Long term (current) use of aspirin; Z79.899 Other long term (current) drug therapy; Z79.4 Long term (current) use of insulin
CPT/HCPCS: 36415; 51702; 74176; 76377; 80048; 81003; 81015; 83735; 84100; 85025; 86140; 87040; 87086; 87088; 93970; 96360; 99284

== ENCOUNTER 2019-07-03 13:05 | Observation (INO) | payer OTHER ==
--- OUTSIDE RECORDS SUMMARY | 2019-07-03 13:09 | XMS REPORT ---
:1955 [facility] [address] [place] [address] Care Team Providers Name Role Phone JORGE [...] Comments LAB AP CPT CODE (BEAKER) (test rajs=4961) [address] TACROLIMUS [id number] 09:09:00 Test Item Value Reference Range Comments TACROLIMUS BLOOD (BEAKER) (test uacy=795) 6.8 ng/mL 10.0-20.0 POCT-GLUCOSE [id number] 07:33:00 Test Item Value Reference Range Comments POC-GLUCOSE METER (BEAKER) 138 mg/dL 70-110 TESTED AT [facility] [address] [facility] (test qfmp=1632) [facility] [address] BASIC METABOLIC [id number] 05:08:00 Test Item Value Reference Range Comments SODIUM (BEAKER) (test 139 meq/L 136-145 iyld=210) POTASSIUM (BEAKER) (test 4.7 meq/L 3.5-5.1 yhnl=331) CHLORIDE (BEAKER) (test 109 meq/L 98-107 focm=958) CO2 (BEAKER) (test 23 meq/L 22-29 kphw=944) BLOOD UREA NITROGEN 21 mg/dL 7-21 (BEAKER) (test lwie=348) CREATININE (BEAKER) (test 1.08 mg/dL 0.57-1.25 zgki=181) GLUCOSE RANDOM (BEAKER) 93 mg/dL 70-105 (test xrli=040) CALCIUM (BEAKER) (test 8.8 mg/dL 8.4-10.2 hbpi=568) EGFR (BEAKER) (test 52 mL/min/1.73 sq m ESTIMATED GFR IS NOT tqbc=7386) ACCURATE CREATININE CLEARANCE IN PREDICTING GLOMERULAR FILTRATION RATE. ESTIMATED GFR IS NOT APPLICABLE FOR DIALYSIS PATIENTS. CBC W/PLT COUNT & AUTO [id number] 04:51:00 Test Item Value Reference Range Comments WHITE BLOOD CELL COUNT (BEAKER) (test mqsx=427) 4.1 K/ L 4.0-10.0 RED BLOOD CELL COUNT (BEAKER) (test weck=891) 3.47 M/ L 4.00-5.00 HEMOGLOBIN (BEAKER) (test cgns=735) 11.0 GM/DL 12.0-15.0 HEMATOCRIT (BEAKER) (test edkw=619) 34.1 % 36.0-45.0 MEAN CORPUSCULAR VOLUME (BEAKER) (test mjxz=303) 98.3 fL 82.0-99.0 MEAN CORPUSCULAR HEMOGLOBIN (BEAKER) (test 31.6 pg 27.0-33.0 epft=292) MEAN CORPUSCULAR HEMOGLOBIN CONC (BEAKER) (test 32.1 GM/DL 32.0-36.0 fhqy=625) RED CELL DISTRIBUTION WIDTH (BEAKER) (test 11.9 % 10.3-14.2 kpja=163) PLATELET COUNT (BEAKER) (test jsub=947) 148 K/CU MM 150-430 MEAN PLATELET VOLUME (BEAKER) (test zgwp=038) 8.3 fL 6.5-10.5 NUCLEATED RED BLOOD CELLS (BEAKER) (test 0 /100 WBC 0-0 irls=281) NEUTROPHILS RELATIVE PERCENT (BEAKER) (test 77 % zvwv=146) LYMPHOCYTES RELATIVE PERCENT (BEAKER) (test 11 % wwum=428) MONOCYTES RELATIVE PERCENT (BEAKER) (test 12 % xhix=757) EOSINOPHILS RELATIVE PERCENT (BEAKER) (test 1 % rhly=112) BASOPHILS RELATIVE PERCENT (BEAKER) (test 0 % vfav=967) NEUTROPHILS ABSOLUTE COUNT (BEAKER) (test 3.17 K/ L 1.80-8.00 sowj=478) LYMPHOCYTES ABSOLUTE COUNT (BEAKER) (test 0.45 K/ L 1.48-4.50 yhgw=453) MONOCYTES ABSOLUTE COUNT (BEAKER) (test 0.50 K/ L 0.00-1.30 osww=826) EOSINOPHILS ABSOLUTE COUNT (BEAKER) (test 0.02 K/ L 0.00-0.50 yodh=179) BASOPHILS ABSOLUTE COUNT (BEAKER) (test 0.00 K/ L 0.00-0.20 ayxb=228) 0.00POCT-GLUCOSE [id number] 01:09:00 Test Item Value Reference Range Comments POC-GLUCOSE METER (BEAKER) 97 mg/dL 70-110 TESTED AT [address] (test vgvg=8767) [facility] [address] POCT-GLUCOSE [id number] 21:30:00 Test Item Value Reference Range Comments POC-GLUCOSE METER (BEAKER) 424 mg/dL 70-110 Notified BO PILLAI/TESTED AT [facility] (test tfly=0301) [address] [place] [address] POCT-GLUCOSE [id number] 17:04:00 Test Item Value Reference Range Comments POC-GLUCOSE METER (BEAKER) 198 mg/dL 70-110 TESTED AT [address] (test mcum=8958) [place] [id number] POCT-GLUCOSE [id number] 12:51:00 Test Item Value Reference Range Comments POC-GLUCOSE METER (BEAKER) 205 mg/dL 70-110 TESTED AT [address] (test rwny=3916) [place] [address] TACROLIMUS [id number] 12:35:00 Test Item Value Reference Range Comments TACROLIMUS BLOOD (BEAKER) (test tyqj=395) 5.9 ng/mL 10.0-20.0 POCT-GLUCOSE [id number] 08:32:00 Test Item Value Reference Range Comments POC-GLUCOSE METER (BEAKER) 60 mg/dL 70-110 TESTED AT [address] (test ywpa=8643) [facility] [address] POCT-GLUCOSE [id number] 21:41:00 Test Item Value Reference Range Comments POC-GLUCOSE METER (BEAKER) 202 mg/dL 70-110 TESTED AT [address] (test zdww=9390) [facility] [address] POCT-GLUCOSE [id number] 17:36:00 Test Item Value Reference Range Comments POC-GLUCOSE METER (BEAKER) 191 mg/dL 70-110 TESTED AT [address] (test elrr=2526) [place] [id number] POCT-GLUCOSE [id number] 11:01:00 Test Item Value Reference Range Comments POC-GLUCOSE METER (BEAKER) 232 mg/dL 70-110 TESTED AT [address] (test wssr=0408) [place] [address] TACROLIMUS [id number] 10:16:00 Test Item Value Reference Range Comments TACROLIMUS BLOOD (BEAKER) (test dyqg=165) 8.3 ng/mL 10.0-20.0 POCT-GLUCOSE [id number] 08:16:00 Test Item Value Reference Range Comments POC-GLUCOSE METER (BEAKER) 366 mg/dL 70-110 TESTED AT [address] (test mxwy=4067) [place] [address] BASIC METABOLIC [id number] 06:57:00 Test Item Value Reference Range Comments SODIUM (BEAKER) (test 138 meq/L 136-145 ujeo=046) POTASSIUM (BEAKER) (test 5.1 meq/L 3.5-5.1 lhbm=722) CHLORIDE (BEAKER) (test 108 meq/L 98-107 dpmq=646) CO2 (BEAKER) (test 22 meq/L 22-29 xmfr=410) BLOOD UREA NITROGEN 26 mg/dL 7-21 (BEAKER) (test ptor=537) CREATININE (BEAKER) (test 1.38 mg/dL 0.57-1.25 oyrg=413) GLUCOSE RANDOM (BEAKER) 271 mg/dL 70-105 (test gfis=600) CALCIUM (BEAKER) (test 8.2 mg/dL 8.4-10.2 eahq=698) EGFR (BEAKER) (test 39 mL/min/1.73 sq m ESTIMATED GFR IS NOT werl=6155) ACCURATE CREATININE CLEARANCE IN PREDICTING GLOMERULAR FILTRATION RATE. ESTIMATED GFR IS NOT APPLICABLE FOR DIALYSIS PATIENTS. HEMOGLOBIN AND [id number] 06:40:00 Test Item Value Reference Range Comments HEMOGLOBIN (BEAKER) (test wbfb=285) 11.4 GM/DL 12.0-15.0 HEMATOCRIT (BEAKER) (test gxrz=198) 36.1 % 36.0-45.0 POCT-GLUCOSE [id number] 23:30:00 Test Item Value Reference Range Comments POC-GLUCOSE METER (BEAKER) 274 mg/dL 70-110 TESTED AT [facility] [address] (test icff=1407) [facility] [address] BASIC METABOLIC [id number] 18:49:00 Test Item Value Reference Range Comments SODIUM (BEAKER) (test 142 meq/L 136-145 sfrc=287) POTASSIUM (BEAKER) (test 4.2 meq/L 3.5-5.1 einf=092) CHLORIDE (BEAKER) (test 114 meq/L 98-107 kjep=110) CO2 (BEAKER) (test 20 meq/L 22-29 efyf=974) BLOOD UREA NITROGEN 28 mg/dL 7-21 (BEAKER) (test nuge=335) CREATININE (BEAKER) (test 1.36 mg/dL 0.57-1.25 hnma=951) GLUCOSE RANDOM (BEAKER) 177 mg/dL 70-105 (test kcwn=781) CALCIUM (BEAKER) (test 8.3 mg/dL 8.4-10.2 zujd=100) EGFR (BEAKER) (test 40 mL/min/1.73 sq m ESTIMATED GFR IS NOT kgdb=3215) ACCURATE CREATININE CLEARANCE IN PREDICTING GLOMERULAR FILTRATION RATE. ESTIMATED GFR IS NOT APPLICABLE FOR DIALYSIS PATIENTS. HEMOGLOBIN AND [id number] 18:35:00 Test Item Value Reference Range Comments HEMOGLOBIN (BEAKER) (test urwg=221) 11.5 GM/DL 12.0-15.0 HEMATOCRIT (BEAKER) (test yoqx=347) 35.6 % 36.0-45.0 BASIC METABOLIC [id number] 12:08:00 Test Item Value Reference Range Comments SODIUM (BEAKER) (test 140 meq/L 136-145 shfo=978) POTASSIUM (BEAKER) (test 4.4 meq/L 3.5-5.1 ssil=631) CHLORIDE (BEAKER) (test 106 meq/L 98-107 iqai=932) CO2 (BEAKER) (test 23 meq/L 22-29 ogpb=373) BLOOD UREA NITROGEN 35 mg/dL 7-21 (BEAKER) (test xsrp=501) CREATININE (BEAKER) (test 1.47 mg/dL 0.57-1.25 ywcx=021) GLUCOSE RANDOM (BEAKER) 69 mg/dL 70-105 (test umiu=463) CALCIUM (BEAKER) (test 9.9 mg/dL 8.4-10.2 zgbo=113) EGFR (BEAKER) (test 36 mL/min/1.73 sq m ESTIMATED GFR IS NOT rrww=9435) ACCURATE CREATININE CLEARANCE IN PREDICTING GLOMERULAR FILTRATION RATE. ESTIMATED GFR IS NOT APPLICABLE FOR DIALYSIS PATIENTS. CBC (HEMOGRAM ONLY)2016-11-23 12:01:00 Test Item Value Reference Range Comments WHITE BLOOD CELL COUNT (BEAKER) (test ires=399) 6.0 K/ L 4.0-10.0 RED BLOOD CELL COUNT (BEAKER) (test qmrr=227) 3.84 M/ L 4.00-5.00 HEMOGLOBIN (BEAKER) (test clzp=159) 12.0 GM/DL 12.0-15.0 HEMATOCRIT (BEAKER) (test urjj=839) 37.4 % 36.0-45.0 MEAN CORPUSCULAR VOLUME (BEAKER) (test azhz=411) 97.3 fL 82.0-99.0 MEAN CORPUSCULAR HEMOGLOBIN (BEAKER) (test 31.3 pg 27.0-33.0 dnrq=281) MEAN CORPUSCULAR HEMOGLOBIN CONC (BEAKER) (test 32.2 GM/DL 32.0-36.0 ictu=402) RED CELL DISTRIBUTION WIDTH (BEAKER) (test 11.8 % 10.3-14.2 uzxa=256) PLATELET COUNT (BEAKER) (test csnt=007) 183 K/CU MM 150-430 MEAN PLATELET VOLUME (BEAKER) (test gemy=420) 8.3 fL 6.5-10.5 NUCLEATED RED BLOOD CELLS (BEAKER) (test 0 /100 WBC 0-0 xzve=350) 0.00POTASSIUM-STAT [id number] 11:43:00 Test Item Value Reference Range Comments POTASSIUM (BEAKER) (test ovgf=149) 4.3 meq/L 3.6-5.5 POCT-GLUCOSE [id number] 11:34:00 Test Item Value Reference Range Comments POC-GLUCOSE METER (BEAKER) 82 mg/dL 70-110 TESTED AT [facility] [address] [facility] (test vkpr=9820) [facility] [address] URINE [id number] 11:19:00 Test Item Value Reference Range Comments CULTURE (BEAKER) (test 20-29,000 col/mL skin tea aufc=2062) URINALYSIS W/ [id number] 15:16:00 Test Item Value Reference Range Comments COLOR (BEAKER) (test owjl=510) Yellow CLARITY (BEAKER) (test pemb=173) Clear SPECIFIC GRAVITY UA (BEAKER) (test egwt=400) 1.013 1.001-1.035 PH UA (BEAKER) (test tvsz=303) 6.0 5.0-8.0 PROTEIN UA (BEAKER) (test rtow=428) Negative Negative GLUCOSE UA (BEAKER) (test huce=005) 30 mg/dL Negative KETONES UA (BEAKER) (test mwgc=199) Negative Negative BILIRUBIN UA (BEAKER) (test rwcg=083) Negative Negative BLOOD UA (BEAKER) (test prbg=278) Negative Negative NITRITE UA (BEAKER) (test wanb=413) Negative Negative LEUKOCYTE ESTERASE UA (BEAKER) (test lmsf=551) Trace Negative UROBILINOGEN UA (BEAKER) (test ixjr=251) 0.2 mg/dL 0.2-1.0 RBC UA (BEAKER) (test nfxf=992) < /HPF WBC UA (BEAKER) (test ntut=089) < /HPF SQUAMOUS EPITHELIAL (BEAKER) (test igps=379) < /HPF SOURCE(BEAKER) (test bwas=9471) CBC W/PLT COUNT & AUTO [id number] 14:56:00 Test Item Value Reference Range Comments WHITE BLOOD CELL COUNT (BEAKER) (test teqj=777) 4.2 K/ L 4.0-10.0 RED BLOOD CELL COUNT (BEAKER) (test dpxc=600) 3.68 M/ L 4.00-5.00 HEMOGLOBIN (BEAKER) (test gfrm=316) 11.6 GM/DL 12.0-15.0 HEMATOCRIT (BEAKER) (test wiwj=608) 36.4 % 36.0-45.0 MEAN CORPUSCULAR VOLUME (BEAKER) (test ycrx=826) 98.8 fL 82.0-99.0 MEAN CORPUSCULAR HEMOGLOBIN (BEAKER) (test 31.4 pg 27.0-33.0 xyko=426) MEAN CORPUSCULAR HEMOGLOBIN CONC (BEAKER) (test 31.8 GM/DL 32.0-36.0 phne=000) RED CELL DISTRIBUTION WIDTH (BEAKER) (test 12.8 % 10.3-14.2 iyof=717) PLATELET COUNT (BEAKER) (test bpsb=769) 167 K/CU MM 150-430 MEAN PLATELET VOLUME (BEAKER) (test vshs=336) 8.4 fL 6.5-10.5 NUCLEATED RED BLOOD CELLS (BEAKER) (test 0 /100 WBC 0-0 mzrh=050) NEUTROPHILS RELATIVE PERCENT (BEAKER) (test 87 % sojk=103) LYMPHOCYTES RELATIVE PERCENT (BEAKER) (test 8 % tgcs=088) MONOCYTES RELATIVE PERCENT (BEAKER) (test 5 % smll=202) EOSINOPHILS RELATIVE PERCENT (BEAKER) (test 0 % dflo=486) BASOPHILS RELATIVE PERCENT (BEAKER) (test 0 % rqzw=758) NEUTROPHILS ABSOLUTE COUNT (BEAKER) (test 3.68 K/ L 1.80-8.00 duyn=894) LYMPHOCYTES ABSOLUTE COUNT (BEAKER) (test 0.32 K/ L 1.48-4.50 heex=567) MONOCYTES ABSOLUTE COUNT (BEAKER) (test 0.20 K/ L 0.00-1.30 mrdm=070) EOSINOPHILS ABSOLUTE COUNT (BEAKER) (test 0.01 K/ L 0.00-0.50 hvex=344) BASOPHILS ABSOLUTE COUNT (BEAKER) (test 0.00 K/ L 0.00-0.20 afem=936) 0.00[facility] METABOLIC [id number] 14:55:00 Test Item Value Reference Range Comments SODIUM (BEAKER) (test 140 meq/L 136-145 pmyr=718) POTASSIUM (BEAKER) (test 5.3 meq/L 3.5-5.1 Specimen slightly tnlg=820) hemolyzed CHLORIDE (BEAKER) (test 108 meq/L 98-107 umgu=390) CO2 (BEAKER) (test 22 meq/L 22-29 cnip=202) BLOOD UREA NITROGEN 28 mg/dL 7-21 (BEAKER) (test pika=222) CREATININE (BEAKER) (test 1.61 mg/dL 0.57-1.25 Specimen slightly ssnx=791) hemolyzed GLUCOSE RANDOM (BEAKER) 209 mg/dL 70-105 (test wnsq=134) CALCIUM (BEAKER) (test 9.3 mg/dL 8.4-10.2 loet=405) EGFR (BEAKER) (test 33 mL/min/1.73 sq m ESTIMATED GFR IS NOT pydo=3918) ACCURATE CREATININE CLEARANCE IN PREDICTING GLOMERULAR FILTRATION RATE. ESTIMATED GFR IS NOT APPLICABLE FOR DIALYSIS PATIENTS. [id number] 14:51:00 Test Item Value Reference Range Comments PARTIAL THROMBOPLASTIN TIME (BEAKER) (test 30.7 seconds 22.5-36.0 yhnz=291) PROTHROMBIN TIME/[id number] 14:50:00 Test Item Value Reference Range Comments PROTIME (BEAKER) (test bjtq=249) 14.3 seconds 11.7-14.7 INR (BEAKER) (test rpdj=974) 1.1 <=5.9 RECOMMENDED COUMADIN/WARFARIN INR THERAPY RANGESSTANDARD DOSE: 2.0 - 3.0 Includes: PROPHYLAXIS forvenous thrombosis, systemic embolization; TREATMENT for venous thrombosis and/or pulmonary embolus.HIGH RISK: Target INR is 2.5-3.5 for patients with mechanical heart valves.
--- NOTE | 2019-07-03 14:02 | RAD REPORT ---
EXAM DESCRIPTION: RAD - Chest Single View - 07/03/2019 1:56 pm CLINICAL HISTORY: chills, weakness Chest pain. COMPARISON: Chest Pa And Lat (2 Views) dated 04/25/2019; Chest Pa And Lat (2 Views) dated 08/13/2018; Chest Single View dated 10/25/2017; CHEST PA AND LAT 2 VIEW dated 10/19/2015 FINDINGS: Portable technique limits examination quality. Mild interstitial prominence is seen. This is nonspecific but could indicate mild interstitial pulmon elaine edema or interstitial pneumonitis/ bronchitis. The heart is upper limit of normal in size. No dis placed fractures.
[2019-07-03 14:18] LABS: Absolute Lymphocytes (CBC) 0.2 K/uL (0.7-4.9); Basophils % 0.3 % (0-1.3); Hematocrit 34.8 % (36.0-45.0); Lymphocytes % 3.1 % (15.3-44.8); RBC Red Blood Cell Count 3.78 M/uL (3.86-4.86)
[2019-07-03] MEDS ORDERED: NA CHLORIDE 0.9% 500 ML ONE (14:19)
[2019-07-03 14:22] LABS: Protime INR 0.94
--- NOTE | 2019-07-03 14:26 | RAD REPORT ---
EXAM DESCRIPTION: CT - Head Brain Wo Cont - 07/03/2019 2:10 pm CLINICAL HISTORY: confused, generalized weakness Headache, drowsiness COMPARISON: No comparisons TECHNIQUE: All CT scans are performed using dose optimization technique as appropriate and may inclu de automated exposure control or mA/KV adjustment according to patient size. FINDINGS: No intracranial hemorrhage, hydrocephalus or extra-axial fluid collection.No areas of brai n edema or evidence of midline shift. Mild mucoperiosteal thickening of both maxillary antra. The paranasal sinuses and mastoids otherwise clear. The calvarium is intact. Vertebral arteries are mildly calcified. IMPRESSION: No acute intracranial abnormality.
[2019-07-03] MEDS ORDERED: D50W 25 GM/50 ML SYRINGE/VIAL IV ONE (14:43)
[2019-07-03 15:21] LABS: Albumin 4.3 g/dL (3.4-5.0); Bilirubin Direct 0.2 mg/dL (0-0.2); Bilirubin Total 0.3 mg/dL (0.2-1.0); Potassium 3.4 mmol/L (3.5-5.1); Protein, Total 7.6 g/dL (6.4-8.2); Troponin (Emerg Dept Use Only) 0.1 ng/mL (0.0-0.045)
--- NOTE | 2019-07-03 16:17 | EDPHYS ---
Physician Documentation [facility] Name: Paola Mishra Age: 63 yrs Sex: Female : 1955 Arrival Date: 07/03/2019 Time: 13:06 Bed 17 Private MD: ED Physician Tyler Guillory HPI: 07/03 14:14 This 63 yrs old Female presents to ER via Wheelchair with complaints of rn generalized weakness and fatigue. 14:15 Reports generalized weakness and fatigue, began this morning upon waking up, no trauma, rn no focal weakness. Reports unable to stand on her own due to both legs being weak. Feels numb all over and shaky. No chest pain/sob/abd pain/vomiting/diarrhea. Reports mild dysuria. . Onset: The symptoms/episode began/occurred this morning. Severity of symptoms: At their worst the symptoms were moderate in the emergency department the symptoms have improved. The patient has not experienced similar symptoms in the past. The patient has not recently seen a physician. Historical: - Allergies: 13:21 NKDA; aj1 - PMHx: 13:21 Diabetes - IDDM; ESRD; no longer does dialysis, recieved kidney transplant; aj1 Hyperlipidemia; Hypertension; kidney transplant; - Immunization history:: Flu vaccine is up to date. - Social history:: Smoking status: Patient/guardian denies using tobacco. - Ebola Screening: : Patient denies travel to an Ebola-affected area in the 21 days before illness onset. - Family history:: not pertinent. - Hospitalizations: : No recent hospitalization is reported. ROS: 14:15 Constitutional: Negative for fever, and weight loss, Eyes: Negative for injury, pain, rn redness, and discharge, Neck: Negative for injury, pain, and swelling, Cardiovascular: Negative for chest pain, palpitations, and edema, Respiratory: Negative for shortness of breath, cough, wheezing, and pleuritic chest pain, Abdomen/GI: Negative for abdominal pain, nausea, vomiting, diarrhea, and constipation, MS/Extremity: Negative for injury and deformity, Skin: Negative for injury, rash, and discoloration, Neuro: Negative for headache, and seizure. Exam: 14:15 Constitutional: This is a well developed, well nourished patient who is awake, rn somnolent but follows all commands and moving all 4 extremities equally Head/Face: Normocephalic, atraumatic. ENT: dry MM Neck: Trachea midline, no thyromegaly or masses palpated, and no cervical lymphadenopathy. Supple, full range of motion without nuchal rigidity, or vertebral point tenderness. No Meningismus. Cardiovascular: Regular rate and rhythm. No pulse deficits. Respiratory: No increased work of breathing, no retractions or nasal flaring. Abdomen/GI: soft, non-tender Back: No spinal tenderness. No costovertebral tenderness. Full range of motion. MS/ Extremity: Pulses equal, no cyanosis. Neuro: Awake, GCS 15, oriented to person, place, time, and situation. Cranial nerves II-XII grossly intact. Motor strength 4/5 in all extremities. Sensory grossly intact. Vital Signs: 13:17 BP 135 / 68; Pulse 71; Resp 18; Temp 96.9; Pulse Ox 100% on R/A; Weight 58.97 kg (R); aj1 Height 5 ft. 2 in. (157.48 cm) (R); 14:00 BP 144 / 82; Pulse 70; Resp 17; Pulse Ox 100% ; mh5 15:00 BP 135 / 70; Pulse 78; Resp 17; Temp 97.6(O); Pulse Ox 98% on R/A; mh5 16:00 BP 144 / 74; Pulse 71; Resp 18; Temp 97.8(O); Pulse Ox 100% on R/A; mh5 17:00 BP 135 / 89; Pulse 74; Resp 17; Temp 98.0(O); Pulse Ox 100% on R/A; mh5 18:19 BP 136 / 73; Pulse 74; Resp 18; Temp 98.2(O); Pulse Ox 100% on R/A; mh5 19:30 BP 140 / 80; Pulse 80; Resp 16 S; Temp 98.2(O); Pulse Ox 100% on R/A; Pain 0/10; cc3 20:25 BP 137 / 78; Pulse 81; Resp 18 S; Pulse Ox 99% on R/A; cc3 21:00 BP 152 / 86; Pulse 83; Resp 16 S; Pulse Ox 100% on R/A; Pain 0/10; cc3 13:17 Body Mass Index 23.78 (58.97 kg, 157.48 cm) aj1 MDM: 13:23 Patient medically screened. rn 16:14 Differential Diagnosis altered mental status, sepsis, flu, dehydration. Data reviewed: rn vital signs, nurses notes, lab test result(s), EKG, radiologic studies, CT scan, plain films, and as a result, I will admit patient. Counseling: I had a detailed discussion with the patient and/or guardian regarding: the historical points, exam findings, and any diagnostic results supporting the discharge/admit diagnosis, lab results, radiology results, the need for further work-up and treatment in the hospital. Response to treatment: the patient's symptoms have mildly improved after treatment, and as a result, I will admit patient. Admission orders: after a detailed discussion of the patient's condition and case, the admit orders are written by me. ED course: Pt with generalized weakness, + dehydration, hypoglycemia despite skipping insulin, and elevated troponin, admitted to Dr. Sloan for further eval and w/u.. 07/03 13:34 Order name: Urine Culture rn 07/03 13:34 Order name: Basic Metabolic Panel; Complete Time: 15:41 rn 07/03 13:34 Order name: Blood Culture Adult (2) rn 07/03 13:34 Order name: CBC with Diff; Complete Time: 18:04 rn 07/03 13:34 Order name: Lactate; Complete Time: 15:17 rn 07/03 13:34 Order name: LFT's; Complete Time: 15:41 rn 07/03 13:34 Order name: Lipase; Complete Time: 15:41 rn 07/03 13:34 Order name: Procalcitonin; Complete Time: 15:41 rn 07/03 13:34 Order name: Protime (+inr); Complete Time: 15:17 rn 07/03 13:34 Order name: Ptt, Activated; Complete Time: 15:17 rn 07/03 13:34 Order name: Troponin (emerg Dept Use Only); Complete Time: 15:41 rn 07/03 13:34 Order name: Urine Microscopic Only; Complete Time: 18:04 rn 07/03 13:34 Order name: Flu; Complete Time: 15:17 rn 03 13:39 Order name: Glucose, Ancillary Testing; Complete Time: 14:31 EDMS 07/03 13:34 Order name: Chest Single View XRAY; Complete Time: 14:31 rn 12/03 15:46 Order name: BNP; Complete Time: 18:04 bd / 15:52 Order name: Glucose, Ancillary Testing; Complete Time: 16:13 EDMS / 16:12 Order name: Urine Dipstick--Ancillary (enter results); Complete Time: 18:04 bd 07/03 17:29 Order name: Manual Differential; Complete Time: 18:04 EDMS 07/03 18:01 Order name: Glucose, Ancillary Testing; Complete Time: 18:04 EDMS 07/03 18:03 Order name: Glucose, Ancillary Testing; Complete Time: 18:04 EDMS 07/03 19:04 Order name: Basic Metabolic Panel EDMS 07/03 19:04 Order name: Basic Metabolic Panel EDMS 07/03 19:04 Order name: CBC with Automated Diff EDMS 07/03 19:04 Order name: CBC with Automated Diff EDMS 07/03 19:04 Order name: Lipid Profile EDMS 07/03 19:04 Order name: Lipid Profile EDMS 07/03 19:04 Order name: Troponin I EDMS 07/03 19:04 Order name: Troponin I EDMS 07/03 19:04 Order name: Troponin I EDMS 07/03 13:34 Order name: Accucheck; Complete Time: 15:25 rn /03 13:34 Order name: Cardiac monitoring; Complete Time: 15:25 rn /03 13:34 Order name: EKG - Nurse/Tech; Complete Time: 15:25 rn /03 13:34 Order name: IV Saline Lock - Large Bore; Complete Time: 15:25 rn /03 13:34 Order name: Labs collected and sent; Complete Time: 15:25 rn /03 13:34 Order name: O2 Per Protocol; Complete Time: 15:25 rn /03 13:34 Order name: O2 Sat Monitoring; Complete Time: 15:36 rn 12/03 13:34 Order name: Urine Dipstick-Ancillary (obtain specimen); Complete Time: 16:32 rn 12/03 13:34 Order name: CT Head Brain wo Cont; Complete Time: 14:31 rn 12/03 14:20 Order name: Labs - recollect needed; Complete Time: 15:26 bd 07/03 19:04 Order name: Consistent Carb (ADA) 1800 Foreign EDMS 07/03 19:04 Order name: Echo with Doppler EDMS Administered Medications: 14:35 Drug: D50W 25 ml Route: IVP; Site: right forearm; 18:37 Follow up: Response: No adverse reaction 14:45 Drug: NS 0.9% 500 ml Route: IV; Rate: bolus; Site: right forearm; dm5 18:34 Follow up: Response: No adverse reaction; IV Status: Completed infusion Point of Care Testing: Blood Glucose: 13:27 Blood Glucose: 100 mg/dL; Ranges: Critical Glucose Levels:Adult <50 mg/dl or >400 mg/dl <40 mg/dl or >180 mg/dl Disposition: 07/03/19 16:16 Hospitalization ordered by Brigid Sloan for Observation. Preliminary diagnosis are Dehydration, Weakness. - Bed requested for Telemetry/MedSurg (observation). - Status is Observation. cc3 - Condition is Stable. - Problem is new. - Symptoms have improved. UTI on Admission? No Signatures: Dispatcher [employer] EDMS Stacy Burden Angela, RN RN aj1 Kandy Wallace RN RN dm5 Blanka Hernadez RN RN mw Nieto, Roman, MD MD rn Habalo, An Leslie Walsh cc3 Corrections: (The following items were deleted from the chart) 19:40 16:16 Hospitalization Ordered by Brigid Sloan MD for Observation. Preliminary mw diagnosis is Dehydration; Weakness. Bed requested for Telemetry/MedSurg (observation). Status is Observation. Condition is Stable. Problem is new. Symptoms have improved. UTI on Admission? No. rn 21:49 19:40 07/03/2019 16:16 Hospitalization Ordered by Brigid Sloan MD for Observation. cc3 Preliminary diagnosis is Dehydration; Weakness. Bed requested for Telemetry/MedSurg (observation). Status is Observation. Condition is Stable. Problem is new. Symptoms have improved. UTI on Admission? No. mw
--- NOTE | 2019-07-03 16:17 | ER ---
Nurse's Notes [facility] Name: Paola Mishra Age: 63 yrs Sex: Female : 1955 Arrival Date: 07/03/2019 Time: 13:06 Bed 17 Private MD: Diagnosis: Dehydration;Weakness Presentation: 07/03 13:17 Presenting complaint: Child states: "She says that she feels numb all over, she checked aj1 her blood sugar this morning and it was low, like in the 50's, she seems out of it to me. She says that she feels dizzy" Patient appears drowsy, falling asleep when she is not being talked to. Transition of care: patient was not received from another setting of care. Onset of symptoms was July 03, 2019. Risk Assessment: Do you want to hurt yourself or someone else? Patient reports no desire to harm self or others. Initial Sepsis Screen: Does the patient meet any 2 criteria? No. Patient's initial sepsis screen is negative. Does the patient have a suspected source of infection? No. Patient's initial sepsis screen is negative. Care prior to arrival: None. 13:17 Method Of Arrival: Wheelchair aj1 13:17 Acuity: NOHELIA 2 aj1 Historical: - Allergies: 13:21 NKDA; aj1 - PMHx: 13:21 Diabetes - IDDM; ESRD; no longer does dialysis, recieved kidney transplant; aj1 Hyperlipidemia; Hypertension; kidney transplant; - Immunization history:: Flu vaccine is up to date. - Social history:: Smoking status: Patient/guardian denies using tobacco. - Ebola Screening: : Patient denies travel to an Ebola-affected area in the 21 days before illness onset. - Family history:: not pertinent. - Hospitalizations: : No recent hospitalization is reported. Screenin:30 Abuse screen: Denies threats or abuse. Denies injuries from another. Nutritional wh screening: No deficits noted. Tuberculosis screening: No symptoms or risk factors identified. Fall Risk None identified. Assessment: 13:30 General: Appears in no apparent distress. Behavior is calm, cooperative, appropriate wh for age. Pain: Complains of pain in generalized pain Pain does not radiate. Pain began 2-3 days ago. Neuro: Level of Consciousness is awake, alert, obeys commands, Oriented to person, place, time, situation, Appropriate for age. Cardiovascular: Heart tones S1 S2. Respiratory: Airway is patent Respiratory effort is even, unlabored, Respiratory pattern is regular, symmetrical. GI: Abdomen is flat, non-distended. : No signs and/or symptoms were reported regarding the genitourinary system. EENT: No signs and/or symptoms were reported regarding the EENT system. Derm: Skin is intact, is healthy with good turgor, Skin is pink, warm \\T\\ dry. normal. Musculoskeletal: Circulation, motion, and sensation intact. 14:30 Reassessment: PT BS 28 Pt was given orange juice, notified provider with orders made wh and carried out. 15:10 Reassessment: Patient appears in no apparent distress at this time. No changes from previously documented assessment. Patient and/or family updated on plan of care and expected duration. Pain level reassessed. Patient is alert, oriented x 3, equal unlabored respirations, skin warm/dry/pink. 16:30 Reassessment: Patient appears in no apparent distress at this time. No changes from previously documented assessment. Patient and/or family updated on plan of care and expected duration. Pain level reassessed. Patient is alert, oriented x 3, equal unlabored respirations, skin warm/dry/pink. Snacks provided. 17:05 Reassessment: Patient appears in no apparent distress at this time. No changes from previously documented assessment. Patient and/or family updated on plan of care and expected duration. Pain level reassessed. Patient is alert, oriented x 3, equal unlabored respirations, skin warm/dry/pink. Explained POC need for admit. 18:00 Reassessment: Patient appears in no apparent distress at this time. No changes from previously documented assessment. Patient and/or family updated on plan of care and expected duration. Pain level reassessed. Dr Levi at bedside explaining POC. 18:33 Reassessment: Patient appears in no apparent distress at this time. No changes from previously documented assessment. Patient and/or family updated on plan of care and expected duration. Pain level reassessed. Patient is alert, oriented x 3, equal unlabored respirations, skin warm/dry/pink. Rechecked blood sugar 78. 19:20 Reassessment: Patient appears in no apparent distress at this time. Patient and/or cc3 family updated on plan of care and expected duration. Pain level reassessed. Patient is alert, oriented x 3, equal unlabored respirations, skin warm/dry/pink. Received this female patient from morning shift BO Nolan as a case of chest and abdominal pain. With IV cannula gauge 20 at the right ACV saline locked, with left fistula noted at the left upper arm which was not used for almost 9 years as patient's a kidney transplant as per the daughter. Patient denies pain at this time. Patient states feeling better. Patient states symptoms have improved. General: Appears in no apparent distress. comfortable, Behavior is calm, cooperative, appropriate for age. Pain: Denies pain. Neuro: Level of Consciousness is awake, alert, obeys commands, Oriented to person, place, time, situation, Appropriate for age. Cardiovascular: Heart tones S1 S2 present Capillary refill < 3 seconds in bilateral fingers Patient's skin is warm and dry. Respiratory: Airway is patent Respiratory effort is even, unlabored, Respiratory pattern is regular, symmetrical, Breath sounds are clear bilaterally. GI: Abdomen is flat, non-distended, Bowel sounds present X 4 quads. Abd is soft and non tender X 4 quads. : No signs and/or symptoms were reported regarding the genitourinary system. EENT: No signs and/or symptoms were reported regarding the EENT system. Derm: Skin is intact, is healthy with good turgor, Skin is pink, warm \\T\\ dry. normal. Musculoskeletal: Circulation, motion, and sensation intact. Range of motion: intact in all extremities. 20:30 Reassessment: Patient appears in no apparent distress at this time. Patient and/or cc3 family updated on plan of care and expected duration. Pain level reassessed. Patient is alert, oriented x 3, equal unlabored respirations, skin warm/dry/pink. Patient for admission, room available in 211, report called and handed over to BO Carmona for continuity of care and management. 21:10 Reassessment: Patient appears in no apparent distress at this time. Patient and/or cc3 family updated on plan of care and expected duration. Pain level reassessed. Patient is alert, oriented x 3, equal unlabored respirations, skin warm/dry/pink. Patient left ER for admission vitally stable by stretcher escorted by emergency medical technician basicjuan Viens and the patient's family. No valuables left in the patient's room. Patient denies pain at this time. Patient states feeling better. Patient states symptoms have improved. Vital Signs: 13:17 BP 135 / 68; Pulse 71; Resp 18; Temp 96.9; Pulse Ox 100% on R/A; Weight 58.97 kg (R); aj1 Height 5 ft. 2 in. (157.48 cm) (R); 14:00 BP 144 / 82; Pulse 70; Resp 17; Pulse Ox 100% ; mh5 15:00 BP 135 / 70; Pulse 78; Resp 17; Temp 97.6(O); Pulse Ox 98% on R/A; mh5 16:00 BP 144 / 74; Pulse 71; Resp 18; Temp 97.8(O); Pulse Ox 100% on R/A; mh5 17:00 BP 135 / 89; Pulse 74; Resp 17; Temp 98.0(O); Pulse Ox 100% on R/A; mh5 18:19 BP 136 / 73; Pulse 74; Resp 18; Temp 98.2(O); Pulse Ox 100% on R/A; mh5 19:30 BP 140 / 80; Pulse 80; Resp 16 S; Temp 98.2(O); Pulse Ox 100% on R/A; Pain 0/10; cc3 20:25 BP 137 / 78; Pulse 81; Resp 18 S; Pulse Ox 99% on R/A; cc3 21:00 BP 152 / 86; Pulse 83; Resp 16 S; Pulse Ox 100% on R/A; Pain 0/10; cc3 13:17 Body Mass Index 23.78 (58.97 kg, 157.48 cm) [facility] ED Course: 13:06 Patient arrived in ED. as 13:17 Arm band placed on Patient placed in an exam room. aj1 13:21 Triage completed. [facility] 13:23 Tyler Guillory MD is Attending Physician. rn 13:25 An Izaguirre is Primary Nurse. 13:30 Patient has correct armband on for positive identification. Bed in low position. Call light in reach. Side rails up X 1. Placed in gown. extension service advisor on. Pulse ox on. NIBP on. 13:30 Patient maintains SpO2 saturation greater than 95% on room air. 13:56 Chest Single View XRAY In Process Unspecified. EDMS 14:10 CT Head Brain wo Cont In Process Unspecified. EDMS 14:10 Inserted saline lock: 20 gauge in right forearm, using aseptic technique. Blood wh collected. 15:40 EKG done, by electrical electronics technician. reviewed by Tyler Guillory MD. tc 16:15 Brigid Sloan MD is Hospitalizing Provider. rn 16:40 Urine Microscopic Only Sent. 5 20:30 No provider procedures requiring assistance completed. Patient admitted, IV remains in cc3 place. Administered Medications: 14:35 Drug: D50W 25 ml Route: IVP; Site: right forearm; 18:37 Follow up: Response: No adverse reaction 14:45 Drug: NS 0.9% 500 ml Route: IV; Rate: bolus; Site: right forearm; dm5 18:34 Follow up: Response: No adverse reaction; IV Status: Completed infusion Point of Care Testing: Blood Glucose: 13:27 Blood Glucose: 100 mg/dL; Ranges: Outcome: 16:16 Decision to Hospitalize by Provider. rn 20:30 Admitted to Med/surg accompanied by tech, family with patient, via stretcher, room 211, cc3 with chart, Report called to BO Carmona 20:30 Condition: stable 20:30 Instructed on the need for admit, Demonstrated understanding of instructions. 21:49 Patient left the ED. cc3 Signatures: Dispatcher [employer] EDCassy Monteiro RN RN aj1 Kandy Wallace RN RN dm5 Martinez, Amelia as Nieto, Roman, MD MD rn Callis, Tiffany, fish cutter EKG Aparna Yun Winsy Leslie Walsh cc3 Corrections: (The following items were deleted from the chart) 13:22 13:17 Presenting complaint: Child states: "She says that she feels numb all over, she aj1 checked her blood sugar this morning and it was low, like in the 50's, she seems out of it to me. She says that she feels dizzy" aj1 13:22 13:17 Acuity: NOHELIA 3 aj1 aj1 18:29 13:30 Reassessment: [facility] 18:34 18:00 Reassessment: Patient appears in no apparent distress at this time. No changes wh from previously documented assessment. Patient and/or family updated on plan of care and expected duration. Pain level reassessed. Patient is alert/active/playful, equal unlabored respirations, skin warm/dry/pink. Dr Levi at bedside explaining POC 18:36 16:30 Reassessment: Patient appears in no apparent distress at this time. No changes wh from previously documented assessment. Patient and/or family updated on plan of care and expected duration. Pain level reassessed. Patient is alert, oriented x 3, equal unlabored respirations, skin warm/dry/pink. 18:36 18:33 Reassessment: Patient appears in no apparent distress at this time. No changes wh from previously documented assessment. Patient and/or family updated on plan of care and expected duration. Pain level reassessed. Patient is alert, oriented x 3, equal unlabored respirations, skin warm/dry/pink.
[2019-07-03 16:41] LABS: Urine Bacteria <20 /HPF (<20); Urine Culture Reflex Order NOT NEEDED; Urine RBC <5 /HPF (NONE SEEN)
[2019-07-03 17:29] LABS: Platelet Estimate ADEQ
[2019-07-03 17:30] LABS: Blood Morphology Comment NOT SEEN (NOT SEEN)
[2019-07-03 17:37] LABS: Urine Blood TRACE (NEG); Urine Glucose TRACE (NEG); Urine Protein 1+ (NEG); Urine Specific Gravity 1.025 (1.005-1.030); Urine pH 5.5 (5.0-7.0)
[2019-07-03] MEDS ORDERED: IBUPROFEN 100 MG/5 ML UCUP ONE (17:59)
--- NOTE | 2019-07-03 18:53 | P.HP ---
Certification for Inpatient Patient admitted to: Observation With expected LOS: <2 Midnights Practitioner: I am a practitioner with admitting privileges, knowledge of patient current condition, hospital course, and medical plan of care. Services: Services provided to patient in accordance with Admission requirements found in Title 42 Section 412.3 of the Code of Federal Regulations Patient History Date of Service: 07/07/19 Reason for admission: Generalize weakness, hypoglycemia History of Present Illness: 63-year-old woman with a history of kidney transplant on immunosuppressive and medications and diabetes presented to the ED with a complaint of generalized weakness of a couple of days duration, which was worse today. Patient stated she noted her blood sugar was very low, she was able to eat but did not give herself insulin. She administers 20 units of long-acting insulin per day and also uses insulin sliding scale with meals. Patient reports fatigue, denied fever, denied shortness of breath or palpitation. She reported mild left-sided chest pain. In the ED, EKG noted to have no ischemic changes. Blood sugar noted to be as low as 27, later up to 78 after drinking orange juice. Her troponin noted to be mildly elevated to 0.1. Chest x-ray reported mild interstitial opacities indicating edema. BNP elevated. Patient is placed under observation for further management. Allergies No Known Drug Allergies Allergy (Verified 07/03/19 21:54) Unknown NKDA Allergy (Uncoded 12/12/13 17:09) Unknown Home Medications: Amlodipine [Norvasc*] 10 mg PO DAILY 07/04/19 Calcium Carbonate [Tums Regular*] 500 mg PO TID 07/04/19 Carvedilol [Coreg] 12.5 mg PO BID 07/04/19 Cholecalciferol (Vitamin D3) [Vitamin D3] 2,000 unit PO DAILY 07/04/19 Clonidine HCl [Catapres] 0.1 mg PO TID 07/04/19 Gabapentin [Neurontin*] 100 mg PO TID 07/04/19 Insulin Lispro [Humalog Kwikpen U-100] 7 units SQ TIDWM 07/04/19 Linagliptin [Tradjenta] 5 mg PO DAILY 07/04/19 Magnesium Chloride [Slow-Mag*] 64 mg PO DAILY 07/04/19 Mycophenolate Mofetil 500 mg PO BID 07/04/19 Omeprazole [Prilosec] 40 mg PO DAILY 07/04/19 Simvastatin 20 mg PO BEDTIME 07/04/19 Tacrolimus [Prograf] 2 cap PO BID 07/04/19 predniSONE [Prednisone*] 5 mg PO DAILY 07/04/19 - Past Medical/Surgical History Diabetic: Yes -: Kidney transplant -: chronic venous hypertension with ulceraton -: diabetic ulcer toe -: gerd -: hyperlipidemia -: neuropathy chronic kidney disease -: kidney transplant -: -: Toe Amputation -: Fistula Placement -: Chronic venous hypertension with ulceration - Family History Mother -: Stroke - Social History Smoking Status: Never smoker Alcohol use: No CD- Drugs: No Caffeine use: Yes Review of Systems Other: General: No fever, no malaise, no unintentional weight loss. Eyes: No eye discharge, Respiratory: No cough, no shortness of breath. CVS: No palpitation, no lightheadedness. GI: No abdominal pain, no nausea no vomit, no constipation, no diarrhea. Genitourinary: No dysuria, no urinary frequency, no incontinence, no hematuria. Musculoskeletal: No joint pains, or joint swelling, no gait instability. Neurology: No headache, no asymmetric weakness, no problem with swallowing. Except as documented, all other systems reviewed and negative. Physical Examination - Physical Exam General: Alert, In no apparent distress, Oriented x3 HEENT: Atraumatic, Normocephalic, PERRLA, Mucous membr. moist/pink, Sclerae nonicteric Neck: Supple, JVD not distended, No Thyromegaly Respiratory: Clear to auscultation bilaterally, Normal air movement Cardiovascular: No edema, Regular rate/rhythm, Normal S1 S2, No murmurs Capillary refill: <2 Seconds Gastrointestinal: Normal bowel sounds, Soft and benign, Non-distended, No tenderness Musculoskeletal: Other (Left chest wall tenderness) Integumentary: No rashes Neurological: Normal speech, Normal strength at 5/5 x4 extr - Studies Laboratory Data (last 24 hrs) 07/03/19 14:00: PT 11.1, INR 0.94, APTT 32.3 07/03/19 14:00: WBC 6.9, Hgb 11.3 L, Hct 34.8 L, Plt Count 193 07/03/19 14:00: Sodium 138, Potassium 3.4 L, BUN 31 H, Creatinine 1.52 H, Glucose 33 L*, Total Bilirubin 0.3, AST 15, ALT 23, Alkaline Phosphatase 67, Lipase 128 Microbiology Data (last 24 hrs): 07/03/19 14:00 Nasopharnyx Influenza Type A Antigen Screen - Final 07/03/19 14:00 Nasopharnyx Influenza Type B Antigen Screen - Final Assessment and Plan - Problems (Diagnosis) (1) Elevated troponin Status: Acute (2) Type 2 diabetes mellitus with hypoglycemia Status: Acute (3) GERD (gastroesophageal reflux disease) Onset Date: 10/26/17 Status: Chronic Qualifiers: Esophagitis presence: without esophagitis Qualified Code(s): K21.9 - Gastro -esophageal reflux disease without esophagitis (4) Hx of kidney transplant Status: Chronic (5) Hyperlipidemia Onset Date: 10/26/17 Status: Chronic Qualifiers: Hyperlipidemia type: mixed hyperlipidemia Qualified Code(s): E78.2 - Mixed hyperlipidemia (6) Hypertension Onset Date: 10/26/17 Status: Chronic Qualifiers: Hypertension type: essential hypertension Qualified Code(s): I10 - Essential (primary) hypertension (7) Acute CHF Status: Acute Qualifiers: Heart failure type: diastolic Qualified Code(s): I50.31 - Acute diastolic ( congestive) heart failure - Plan Place under observation in telemetry Trend troponin Start aspirin Continue PPI Hold insulin Monitor fingerstick glucose Hypoglycemia protocol Slow IV D5 infusion IV Lasix 40 mg x2 doses Monitor renal function. Continue immunosuppressants Continue home antihypertensives. - Advance Directives Does patient have a Living Will: No Does patient have a Durable POA for Healthcare: No
[2019-07-03] MEDS ORDERED: NITROGLYCERIN 0.4 MG/TAB SL PRN (18:59)
[2019-07-03] MEDS ORDERED: ACETAMINOPHEN 500 MG TAB PO PRN (18:59)
[2019-07-03 21:15] LABS: Troponin I 0.1 ng/mL (0.0-0.045)
[2019-07-03] MEDS ORDERED: FUROSEMIDE 40 MG/4 ML VIAL IV ONE (21:49)
[2019-07-03] MEDS ORDERED: D5 0.9 NS 1,000 ML IV SCH (21:49)
[2019-07-03 21:54] VITALS: BMI 22.3
[2019-07-03] MEDS ORDERED: D50W 25 GM/50 ML SYRINGE/VIAL IV PRN (22:34)
[2019-07-03] MEDS ORDERED: GLUCAGON 1 MG/VIAL IM PRN (22:34)
[2019-07-04] MEDS: HEPARIN 5000 UNIT/ML 1 ML VIAL SQ SCH ×3 (00:34→17:14)
[2019-07-04 06:14] LABS: Absolute Lymphocytes (CBC) 0.4 K/uL (0.7-4.9); Basophils % 0.2 % (0-1.3); Hematocrit 33.3 % (36.0-45.0); Lymphocytes % 14.7 % (15.3-44.8); MPV 9.8 fL (7.6-11.3); RBC Red Blood Cell Count 3.65 M/uL (3.86-4.86)
--- NOTE | 2019-07-04 06:21 | EKG ---
Test Date: 2019-07-03 Test Time: 15:23:26 Jewelry Drilling Machine Operator: CHELI MEASUREMENT RESULTS: Intervals: Rate: 65 AK: 130 QRSD: 74 QT: 422 QTc: 438 [place]: P: 65 AK: 130 QRS: 28 T: 58 INTERPRETIVE STATEMENTS: Normal sinus rhythm Normal ECG Compared to ECG 10/25/2017 09:16:15 Sinus arrhythmia no longer present Electronically Signed On 07-04-19 06:20:12 CAUSTIC MIXER by Juan Luis Arana
[2019-07-04 06:30] LABS: Potassium 3.8 mmol/L (3.5-5.1)
--- NOTE | 2019-07-04 08:57 | EKG ---
Test Date: 2019-07-03 Test Time: 22:40:57 Powered Bridge Specialist: KURT MEASUREMENT RESULTS: Intervals: Rate: 76 HI: 116 QRSD: 62 QT: 354 QTc: 398 [place]: P: 62 HI: 116 QRS: 26 T: 50 INTERPRETIVE STATEMENTS: Normal sinus rhythm Low voltage QRS Borderline ECG Compared to ECG 07/03/2019 15:23:26 Low QRS voltage now present Electronically Signed On 07-04-19 08:57:06 EMBLEM MAKER by Juan Luis Arana
[2019-07-04] MEDS: ASPIRIN EC 81 MG TAB PO SCH (09:49)
--- NOTE | 2019-07-04 10:41 | ECHO ---
HEIGHT: 5 ft 2 in WEIGHT: 122 lb 1.6 oz DATE OF STUDY: 07/04/[address]: montez urbina 2-DIMENSIONAL: YES M.MODE: YES DOPPLER: YES COLOR FLOW: YES TDS: PORTABLE: DEFINITY: BUBBLE STUDY: DIAGNOSIS: ELEVATED TROPONIN CARDIAC HISTORY: CATHERIZATION: NO SURGERY: NO PROSTHETIC VALVE: NO PACEMAKER: NO MEASUREMENTS (cm) DIASTOLIC (NORMALS) SYSTOLIC (NORMALS) IVSd 0.9 (0.6-1.2) LA Diam 3.1 (1.9-4.0) LVEF 71% LVIDd 3.5 (3.5-5.7) LVIDs 2.1 (2.0-3.5) %FS 39% LVPWd 1.0 (0.6-1.2) Ao Diam 2.4 (2.0-3.7) 2 DIMENSIONAL ASSESSMENT: RIGHT ATRIUM: NORMAL LEFT ATRIUM: NORMAL RIGHT VENTRICLE: NORMAL LEFT VENTRICLE: NORMAL TRICUSPID VALVE: NORMAL MITRAL VALVE: NORMAL PULMONIC VALVE: NORMAL AORTIC VALVE: NORMAL PERICARDIAL EFFUSION: NONE AORTIC ROOT: NORMAL LEFT VENTRICULAR WALL MOTION: NORMAL DOPPLER/COLOR FLOW: IMPAIRED LEFT VENTRICULAR RELAXATION. PHYSIOLOGICAL TRICUSPID REGURGITATION. NORMAL RIGHT VENTRICULAR SYSTOLIC PRESSURE. COMMENTS: NORMAL LEFT VENTRICULAR EJECTION FRACTION. MITRAL ANNULAR CALCIFICATION. IMPAIRED LEFT VENTRICULAR RELAXATION. TECHNOLOGIST: CHARLI TOMLINSON
[2019-07-04] MEDS ORDERED: GLUCAGON 1 MG/VIAL IM PRN (17:30)
[2019-07-04] MEDS ORDERED: D50W 25 GM/50 ML SYRINGE/VIAL IV PRN (17:30)
--- NOTE | 2019-07-04 18:24 | P.PN ---
Subjective Date of Service: 07/07/19 Chief Complaint: Generalize weakness, hypoglycemia Patient reports an episode of left-sided pain last night. She was given 1 sublingual nitroglycerin, which per patient resolved the pain. Her blood sugar levels have improved on D5 infusion. Patient has not required any insulin therapy today. She denied any complaint during my examination today. Echocardiogram results were reviewed and reporting ) impaired LV relaxation. Troponin trended flat. Physical Examination - Vital Signs Temperature: 97.9 F Blood Pressure: 143/67 Pulse: 80 Respirations: 18 Pulse Ox (%): 98 - Physical Exam General: Alert, In no apparent distress, Oriented x3 HEENT: Mucous membr. moist/pink, Sclerae nonicteric Neck: Supple, JVD not distended Respiratory: Clear to auscultation bilaterally, Normal air movement Cardiovascular: No edema, Regular rate/rhythm, Normal S1 S2, No murmurs Capillary refill: <2 Seconds Gastrointestinal: Normal bowel sounds, Soft and benign, Non-distended, No tenderness Musculoskeletal: No swelling, No erythema Integumentary: No rashes Neurological: Normal speech, Normal strength at 5/5 x4 extr - Studies Microbiology Data (last 24 hrs): 07/03/19 14:00 Nasopharnyx Influenza Type A Antigen Screen - Final 07/03/19 14:00 Nasopharnyx Influenza Type B Antigen Screen - Final Assessment And Plan - Current Problems (Diagnosis) (1) Elevated troponin Status: Acute (2) Type 2 diabetes mellitus with hypoglycemia Status: Acute (3) GERD (gastroesophageal reflux disease) Onset Date: 10/26/17 Status: Chronic Qualifiers: Esophagitis presence: without esophagitis Qualified Code(s): K21.9 - Gastro -esophageal reflux disease without esophagitis (4) Hx of kidney transplant Status: Chronic (5) Hyperlipidemia Onset Date: 10/26/17 Status: Chronic Qualifiers: Hyperlipidemia type: mixed hyperlipidemia Qualified Code(s): E78.2 - Mixed hyperlipidemia (6) Hypertension Onset Date: 10/26/17 Status: Chronic Qualifiers: Hypertension type: essential hypertension Qualified Code(s): I10 - Essential (primary) hypertension (7) Acute CHF Status: Acute Qualifiers: Heart failure type: diastolic Qualified Code(s): I50.31 - Acute diastolic ( congestive) heart failure - Plan Troponin trended flat. Low for ACS. Echocardiogram result reviewed and reports impaired LV relaxation. Continue aspirin Continue PPI Will request for nuclear stress test for patient Cardiology consult Continue to monitor fingerstick glucose Hypoglycemia protocol Discontinue IV D5 infusion Start insulin sliding scale Monitor renal function. Continue immunosuppressants Continue home antihypertensives.
[2019-07-04] MEDS: carvediloL 12.5 MG TAB PO SCH (20:44)
[2019-07-04] MEDS: CALCIUM CARBONATE CHEW 500MG TAB PO SCH (20:44)
[2019-07-04] MEDS: GABAPENTIN 100 MG CAP PO SCH (20:45)
[2019-07-04] MEDS ORDERED: ATORVASTATIN 10 MG TAB PO SCH (21:00)
[2019-07-04] MEDS ORDERED: TACROLIMUS PO SCH (21:00)
[2019-07-04] MEDS ORDERED: MYCOPHENOLATE MOFETIL 500 MG PO SCH (21:00)
[2019-07-04] MEDS ORDERED: HOME MED 1 EA UNK (Simvastatin [Simvastatin] 20 MG) PO SCH (21:00)
[2019-07-04] MEDS: INSULIN -REGULAR HUMAN 50 UNIT/0.5 ML ML SQ SCH (21:19)
[2019-07-04 21:38] VITALS: O2SAT 98
--- NOTE | 2019-07-04 23:56 | CON ---
Chief Complaint: Dizziness and weakness. Reason For Consult: Abnormal troponins. History Of Present Illness: Ms. Mishra had an episode of chest pain that was brief and in the left pectoral region, not very much angina sounding. Somebody did give her nitroglycerin and it seemed to help. She did not seek medical attention for that, but later was complaining of dizziness, lighthea dedness and she was found to have low blood sugar, came to the hospital. Since being here, her EKGs look good, echocardiograms look good. She has had no further chest pain. Troponins are elevated but only minimally so and serial troponins over a more than 24-hour period, they are all about the same, 0.10, 0.08, 0.10. This is not a pattern that is consistent with an acute coronary syndrome. The beulah sánchez has had end-stage renal disease, was a dialysis patient for a while and in 2009 had a kidney tr ansplant for that. She had a cardiac cath that was normal. Her kidney transplant is still working a nd her creatinine is about 1.51. Estimated GFR is 35 and a decision to do angiography will need to b e carefully thought out because of risk of contrast injury to the kidney. The patient has never had myocardial infarction or stroke. She has diabetes, end-stage renal disease with a kidney transplant that is still working. Outpatient Medications: Prednisone, carvedilol, omeprazole, linagliptin, gabapentin, mycophenolate m ofetil, clonidine, magnesium chloride, amlodipine, Prograf, simvastatin, vitamin D3, calcium carbonat e, and insulin lispro. Physical Examination: Vital Signs: Ms. Mishra is 5 feet 2, 122 pounds. General: Alert, oriented, and pleasant, not in distress. Neck: There is no carotid bruit. Lungs: Clear. Heart: Does not reveal a friction rub, murmur, or gallop. Abdomen: Soft. Extremities: Diminished distal pulses. There is no cyanosis, clubbing, or edema. Her blood pressure is 143/67, O2 saturation 97% on room air. No pain. Impression: The patient probably had all of her symptoms related to low blood sugar. I think the en zymes are most likely a red casey. We will do a nuclear stress test, pharmacologic, and see if the re is any strong indication to do a cardiac cath. Thank you very much for your kind referral of Ms. Paola Mishra. I will follow her with you. ODESSA Voice ID: [id number] Report ID: [id number]
[2019-07-05] MEDS: HEPARIN 5000 UNIT/ML 1 ML VIAL SQ SCH ×2 (00:48→07:43)
[2019-07-05 05:58] LABS: Potassium 4.8 mmol/L (3.5-5.1)
[2019-07-05 06:14] LABS: Absolute Lymphocytes (CBC) 0.4 K/uL (0.7-4.9); Basophils % 0.5 % (0-1.3); Lymphocytes % 16.5 % (15.3-44.8); RBC Red Blood Cell Count 3.59 M/uL (3.86-4.86)
[2019-07-05] MEDS ORDERED: PANTOPRAZOLE 40MG TABLET PO SCH (07:30)
[2019-07-05] MEDS: INSULIN -REGULAR HUMAN 50 UNIT/0.5 ML ML SQ SCH ×2 (07:30→11:30)
[2019-07-05] MEDS ORDERED: HOME MED 1 EA UNK (Cholecalciferol (Vitamin D3) [Vitamin D3] 2,000 UNIT) PO SCH (09:00)
[2019-07-05] MEDS ORDERED: VITAMIN D 1000 UNIT TAB PO SCH (09:00)
[2019-07-05] MEDS ORDERED: HOME MED 1 EA UNK (Omeprazole [Prilosec] 40 MG) PO SCH (09:00)
[2019-07-05] MEDS ORDERED: MAGNESIUM CHLORIDE 64 MG TAB PO SCH (09:00)
[2019-07-05] MEDS ORDERED: AMLODIPINE 10 MG TAB PO SCH (09:00)
[2019-07-05] MEDS ORDERED: predniSONE 5 MG TAB PO SCH (09:00)
[2019-07-05] MEDS ORDERED: REGADENOSON 0.4 MG/5 ML SYR IV ONE (09:02)
--- NOTE | 2019-07-05 10:13 | RAD REPORT ---
EXAM DESCRIPTION: NM - Rest Stress Cardiac Imaging - 07/05/2019 10:04 am CLINICAL HISTORY: Chest pain COMPARISON: None. TECHNIQUE: The patient was administered approximately 10 mCi of Tc 99m Sestamibi prior to resting SP ECT imaging of the heart. The patient was then administered approximately 30 mCi of Tc 99m Sestamibi following exercise or pharmacologic stress. Multiplanar SPECT images were reviewed. FINDINGS: The end diastolic volume is 61 ml, the end systolic volume is 20 ml, and the ejection frac tion is 68 %. No stress-induced ischemic changes are identifiable. There is mild decreased activity in the inferola teral wall that is probably diaphragmatic artifact. Scarring is a lesser likely etiology. IMPRESSION: No stress-induced ischemia. Small area of decreased activity in the inferolateral wall is believed to be diaphragm attenuation ra ther than scarring. Ventricular volumes and ejection fraction are well within normal limits.
[2019-07-05] MEDS: carvediloL 12.5 MG TAB PO SCH (10:57)
[2019-07-05] MEDS: GABAPENTIN 100 MG CAP PO SCH ×2 (10:58→13:08)
[2019-07-05] MEDS: ASPIRIN EC 81 MG TAB PO SCH (10:58)
[2019-07-05] MEDS: CALCIUM CARBONATE CHEW 500MG TAB PO SCH ×2 (10:59→13:09)
--- NOTE | 2019-07-05 11:04 | PN ---
She has no progression of her symptoms. Vital signs are okay, although sometimes she is hypertensive . Her troponins have all been virtually the same throughout her hospital stay. I do not think this is an acute coronary syndrome. A nuclear stress test will be done later today. Her echocardiogram l ooks fine. I believe she could be discharged if the stress test shows no ischemia. MASSIMO/CARMINA Voice ID: [id number] Report ID: [id number]
--- NOTE | 2019-07-05 11:47 | TREADPHA ---
DX: CHEST PAIN Date of Study: 07/05/2019 Ht: 5 2 Wt: 122 lb 1.6 oz Consulting Physician: HALEY MEDICATIONS: NORVASC, LIPITOR, ASPIRIN, COREG, HEPARIN, NITROSTAT HISTORY: HISTORY OF END STAGE RENAL DISEASE, HYPERTENSION, INSULIN DEPENDENT DIABETES MELLITUS, HYPERLIPIDEMIA AND RENAL TRANSPLANT. PHYSICIAL EXAMINATION: RESTING B.P.: 162/79 RESTING H.R.: 78 RESTING EKG: NORMAL PROTOCOL: LEXISCAN EXERCISE TIME: 3:30 B.P. AT PEAK STRESS: 144/67 IMPRESSION: LEXISCAN STRESS TEST PERFORMED. CARDIOLITE INJECTED PER PROTOCOL. NO SUPRAVENTRICULAR TACHYCARDIA OR VENTRICULAR TACHYCARDIA NOTED. PATIENT DENIED CHEST PAIN. TOLERATED WELL. PLEASE SEE NUCLEAR MEDICINE REPORT. NON DIAGNOSTIC EKG WITH LEXISCAN STRESS.
--- NOTE | 2019-07-05 13:46 | P.DS ---
Admission Date: 07/03/19 Discharge Date: 07/05/19 Disposition: ROUTINE DISCHARGE Discharge Condition: GOOD Reason for Admission: Generalize weakness, hypoglycemia - Problems (1) Elevated troponin Current Visit: Yes Status: Acute (2) Type 2 diabetes mellitus with hypoglycemia Current Visit: Yes Status: Acute (3) GERD (gastroesophageal reflux disease) Onset Date: 10/26/17 Current Visit: No Status: Chronic Qualifiers: Esophagitis presence: without esophagitis Qualified Code(s): K21.9 - Gastro -esophageal reflux disease without esophagitis (4) Hx of kidney transplant Current Visit: No Status: Chronic (5) Hyperlipidemia Onset Date: 10/26/17 Current Visit: No Status: Chronic Qualifiers: Hyperlipidemia type: mixed hyperlipidemia Qualified Code(s): E78.2 - Mixed hyperlipidemia (6) Hypertension Onset Date: 10/26/17 Current Visit: No Status: Chronic Qualifiers: Hypertension type: essential hypertension Qualified Code(s): I10 - Essential (primary) hypertension (7) Acute CHF Current Visit: Yes Status: Acute Qualifiers: Heart failure type: diastolic Qualified Code(s): I50.31 - Acute diastolic ( congestive) heart failure Brief History of Present Illness: 63-year-old woman with a history of kidney transplant on immunosuppressive and medications and diabetes presented to the ED with a complaint of generalized weakness or for couple of days duration, which was worse on the day of ED presentation. Patient stated she noted her blood sugar was very low, she was able to eat but did not give herself insulin. She administers 20 units of long- acting insulin per day and also uses insulin sliding scale with meals. Patient reports fatigue, denied fever, denied shortness of breath or palpitation. She reported mild left-sided chest pain. In the ED, EKG noted to have no ischemic changes. Blood sugar noted to be as low as 27, later up to 78 after drinking orange juice. Her troponin noted to be mildly elevated to 0.1. Chest x-ray reported mild interstitial opacities indicating edema. BNP was elevated. Patient is placed under observation for further management. Hospital Course: Troponin trended was mildly elevated but flat and there was low suspicion for ACS. Patient was placed on 5 dextrose infusion for hypoglycemia. Her blood sugar stabilized and later became mildly hyperglycemic. Advised against the use and longer-acting insulin at home and told her to use only insulin sliding scale at this time. She had an episode of mild chest pain overnight which responded to sublingual nitroglycerin. Echocardiogram reported normal EF but reduced LV relaxation. Nuclear stress test was performed which reported no stress-induced ischemia. Patient was evaluated by cardiology. She was asymptomatic the rest of the hospital stay. Patient is deemed clinically stable for discharge. No changes were made in her home medications except the fact that she has been informed not to use longer-acting insulin at this time. Vital Signs/Physical Exam: Temp Pulse Resp BP Pulse Ox 97.2 F 82 18 132/95 H 96 07/05/19 12:00 07/05/19 12:00 07/05/19 12:00 07/05/19 12:00 07/05/19 12:00 General: Alert, In no apparent distress, Oriented x3 HEENT: Mucous membr. moist/pink Neck: Supple, JVD not distended Respiratory: Clear to auscultation bilaterally, Normal air movement Cardiovascular: No edema, Regular rate/rhythm, Normal S1 S2, No murmurs Capillary refill: <2 Seconds Gastrointestinal: Normal bowel sounds, Soft and benign, Non-distended, No tenderness Musculoskeletal: No swelling Integumentary: No rashes Neurological: Normal speech, Normal strength at 5/5 x4 extr Laboratory Data at Discharge: WBC 2.2 K/uL (4.3-10.9) L D 07/05/19 05:18 Hgb 10.7 g/dL (12.0-15.0) L 07/05/19 05:18 Hct 33.0 % (36.0-45.0) L 07/05/19 05:18 Plt Count 172 K/uL (152-406) 07/05/19 05:18 PT 11.1 SECONDS (9.5-12.5) 07/03/19 14:00 INR 0.94 07/03/19 14:00 APTT 32.3 SECONDS (24.3-36.9) 07/03/19 14:00 Sodium 145 mmol/L (136-145) 07/05/19 05:18 Potassium 4.8 mmol/L (3.5-5.1) 07/05/19 05:18 BUN 22 mg/dL (7-18) H 07/05/19 05:18 Creatinine 1.51 mg/dL (0.55-1.3) H 07/05/19 05:18 Glucose 119 mg/dL (74-106) H 07/05/19 05:18 Total Bilirubin 0.3 mg/dL (0.2-1.0) 07/03/19 14:00 AST 15 U/L (15-37) 07/03/19 14:00 ALT 23 U/L (12-78) 07/03/19 14:00 Alkaline Phosphatase 67 U/L (45-117) 07/03/19 14:00 Troponin I 0.10 ng/mL (0.0-0.045) H 07/04/19 08:14 Triglycerides 52 mg/dL (<150) 07/03/19 20:40 Cholesterol 94 mg/dL (<200) 07/03/19 20:40 HDL Cholesterol 59 mg/dL (40-60) 07/03/19 20:40 Cholesterol/HDL Ratio 1.59 07/03/19 20:40 Lipase 128 U/L (73-393) 07/03/19 14:00 Home Medications: Amlodipine [Norvasc*] 10 mg PO DAILY 07/04/19 Calcium Carbonate [Tums Regular*] 500 mg PO TID 07/04/19 Carvedilol [Coreg] 12.5 mg PO BID 07/04/19 Cholecalciferol (Vitamin D3) [Vitamin D3] 2,000 unit PO DAILY 07/04/19 Clonidine HCl [Catapres] 0.1 mg PO TID 07/04/19 Gabapentin [Neurontin*] 100 mg PO TID 07/04/19 Insulin Lispro [Humalog Kwikpen U-100] 7 units SQ TIDWM 07/04/19 Linagliptin [Tradjenta] 5 mg PO DAILY 07/04/19 Magnesium Chloride [Slow-Mag*] 64 mg PO DAILY 07/04/19 Mycophenolate Mofetil 500 mg PO BID 07/04/19 Omeprazole [Prilosec] 40 mg PO DAILY 07/04/19 Simvastatin 20 mg PO BEDTIME 07/04/19 Tacrolimus [Prograf] 2 cap PO BID 07/04/19 predniSONE [Prednisone*] 5 mg PO DAILY 07/04/19 Diet: ADA Activity: Ad amirah
[2019-07-07 19:48] VITALS: BP 143/67; TEMP 97.9
== END 2019-07-05 16:02 | disposition home or self-care (01) ==
LOC: ER 13:05 → ERHOLD 18:58 → 2ND 21:05
PROVIDERS: ADMIT Internal Medicine; ATTEND Internal Medicine
DX: E11.649 Type 2 diabetes mellitus with hypoglycemia without coma (principal); I11.0 Hypertensive heart disease with heart failure; I50.31 Acute diastolic (congestive) heart failure; R79.89 Other specified abnormal findings of blood chemistry; E78.5 Hyperlipidemia, unspecified; K21.9 Gastro-esophageal reflux disease without esophagitis; Z79.899 Other long term (current) drug therapy; Z94.0 Kidney transplant status
CPT/HCPCS: 96361; 93005 ×2; 93017; 93306; 87040 ×2; 87088; 85025 ×3; 87086; 80048 ×3; 36415 ×2; 85610; 80061; 82947 ×11; 80076; 83605; 85730; 84484 ×4; 83690; 84145; 83880; 87804 ×2; 70450; 71045; 78452; 96374; 99285; J1940; J1644 ×5; J2785; J7042; J7040; A9500; G0378 ×3; 81003; 81015; J7512

== ENCOUNTER 2020-07-27 11:56 | Emergency (ER) | payer OTHER ==
--- OUTSIDE RECORDS SUMMARY | 2020-07-27 12:00 | XMS REPORT | Clinical Summary ---
:1955 Author Organization [facility] Address [address] [place] [address] Care Team Providers Name Role Phone Regan Fernandez MD Primary Care Provider [phone] Allergies No Known Allergies Medications Medication Sig [...] nightly. calcitriol Take 0.25 mcg by 0 Ac tive (ROCALTROL) 0.25 MCG mouth daily. capsule alendronate [...] Not on file Implants Implanted Type Area Wax Pumper Device Shelf Model / Identifier Expiration Serial / Date Lot Plate,Volar Dist Rad Va-Lcp 2-Clmn 2.4mm Ti 6h Hd/2h S haft Lt - [id number] Fracture/F Left: Wrist [employer] [id number] / Implanted: Qty: 1 on 01/03/2015 by Gabby Serrano MD at [facility] ixation / [id number] Screw,Locking Stardrive Ti Va 2.4x20mm - [id number] Fracture/F [employer] [id number] / Implanted: Qty: 4 on 01/03/2015 by Gabby Serrano MD at [facility] ixation / Screw,Cortex Ti Selftap 2.7x14 - [id number] Fracture/F SYNTHE S TRUMA [id number] / Implanted: Qty: 2 on 01/03/2015 by Gabby Serrano MD at [facility] ixation / Tiss Live Frm Strtce 6x16cm - Sn/A Tissue Right: [employer] 02/28/2018 [id number] / Implanted: Qty: 1 on 11/23/2016 by Giovanni Armendariz MD at [facility] Graft/Subs Abdomen N/A / titute [id number] Results Not on fileafter 07/27/2019 Insurance Payer Benefit Plan / Subscriber ID Effective Phone Address T ype Group Dates CARE IMPROVEMENT CARE IMPROVEMENT [id number] 2016-Prese MEDICARE MGD CARE PLUS nt MEDICA[place] MED[place] [id number] 2011-Prese Medicaid nt ([place]) [place] [address] Advance Directives For more information, please contact: [phone] Code Status Date Activated Date Inactivated Comments Full Code 11/23/2016 9:56 PM 11/26/2016 1:41 PM This code status was determined by: Patient Full Code 01/03/2015 8:00 AM 01/03/2015 3:23 PM This code status was determined by: Patient
--- OUTSIDE RECORDS SUMMARY | 2020-07-27 12:00 | XMS REPORT | Clinical Summary ---
:1955 Author Organization [facility] Address [address] [place] [address] Care Team Providers Name Role Phone Kishor Raymundo DO Primary Care Provider Allergies Active Allergy Reactions Severity Noted Date Comments No Known Drug Allergies 02/25/2016 Medications Medication Sig Dispensed Refills Start End Date Status Date pen needle, 1 Piece 5 (five) 350 each 5 A ctive diabetic 31 gauge times a day. 8 x 1/4" needle gabapentin Take 1 capsule 270 capsule 3 Ac tive (NEURONTIN) 100 (100 mg total) 9 mg capsule by mouth 3 (three) times a day. predniSONE Take 1 tablet (5 30 tablet 11 Ac tive (DELTASONE) 5 mg mg total) by 9 tabletIndications mouth daily : prevention of .prevent kidney kidney transplant transplant rejection rejection. guaiFENesin Take 600 mg by 0 Act arturo (MUCINEX) 600 mg mouth every 12 tablet extended (twelve) hours. release 12hr albuterol sulfate Inhale 180 mcg 1 each 23 0 Active 90 mcg/actuation every 4 (four) 0 21 aerosol powdr hours. breath activated [phone] for auth - Maki SORIANO insulin ASPART inyecte 8 18 mL 5 Activ e (NovoLOG Flexpen unidades bajo de 0 U-100 Insulin) la piel con 100 unit/mL (3 desayuno, 12 mL) insulin pen unidades antes del almuerzo y la paper coating supervisor y mas unidades heidy escala movil. simvastatin Take 1 tablet 90 tablet 3 09/20/19 Acti ve (ZOCOR) 20 MG (20 mg total) by 0 21 tablet mouth nightly. mycophenolate Take 1 tablet 60 tablet 11 09/20/19 Ac tive (CELLCEPT) 500 mg (500 mg total) 0 21 tablet by mouth 2 (two) times a day. RUN UNDER PART B; Maki SORIANO [phone] w any refill issues blood-glucose DX E11.65 1 each 1 Active meter misc Patient is 0 testing QID. Please match machine to insurance. insulin lispro Inject 4 Units 0 Active (HumaLOG) 100 under the skin unit/mL injection Medrol Dose Pack Scheduling ONLY. Take with dinner insulin lispro Inject 3 Units 10 mL Active (HumaLOG) 100 under the skin 3 0 unit/mL injection (three) times a day before meals. On sliding scale insulin NPH 20 units in AM 10 mL Act arturo (HumuLIN-N) 100 0 unit/mL injection omeprazole Take 1 capsule 90 capsule 3 02/13/20 Act arturo (PriLOSEC) 40 MG (40 mg total) by 0 21 capsule mouth daily. amLODIPine Take 1 tablet 30 tablet 02/19/20 Activ e (NORVASC) 10 mg (10 mg total) by 0 21 tablet mouth daily. calcitrioL Take 2 capsules 60 capsule 02/19/20 Ac tive (ROCALTROL) 0.5 (1 mcg total) by 0 21 MCG mouth daily .low capsuleIndication amount of s: hypocalcemia calcium in the blood. [phone] for auth issues calcium carbonate Chew 1 tablet 120 tablet 0 Active (TUMS) 200 mg (500 mg total) 4 0 21 calcium (500 mg) (four) times a chewable tablet day. carvediloL Take 1 tablet 60 tablet 02/19/20 Activ e (COREG) 12.5 MG (12.5 mg total) 0 21 tablet by mouth 2 (two) times a day with meals. clonIDINE Take 1 tablet 90 tablet 20 Active (Catapres) 0.1 MG (0.1 mg total) 0 21 tablet by mouth 3 (three) times a day. magnesium Take 1 tablet 30 tablet 11 02/19/20 Active chloride 64 mg (64 mg total) by 0 21 tablet,delayed mouth daily. 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 Please match to machine. Insupen 31 gauge Use 5 veces al 500 each 5 Active x 5/16" needle venkatesh (Use 5 times 0 daily) insulin NPH isoph Inject 20 Units 15 mL 5 Active U-100 human under the skin 0 (HumuLIN N NPH daily before Insulin KwikPen) breakfast. 100 unit/mL (3 mL) blood sugar DX E11.65 400 strip 5 Active diagnostic strips Patient is 0 (glucose blood) testing QID. strip test strips Please match to machine. tacrolimus Take 3 capsules 180 capsule 11 07/08/20 A ctive (PROGRAF) 0.5 MG (1.5 mg total) 0 21 capsuleIndication by mouth 2 (two) s: prevention of times a day kidney transplant .prevent kidney rejection transplant rejection. DOSE CHANGE! 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 : anorexia insulin NPH isoph Inject 10 Units 9 mL 3 Discontinued U-100 human under the skin 9 20 (Re order) (HumuLIN N NPH daily before Insulin KwikPen) breakfast. 100 unit/mL (3 mL) simvastatin Take 1 tablet 90 tablet 3 09/21/19 Disc ontinued (ZOCOR) 20 MG (20 mg total) by 9 20 (Reorder) tablet mouth nightly. tacrolimus Take 2 capsules 120 capsule 11 09/21/19 D iscontinued (PROGRAF) 1 MG (2 mg total) by 9 20 (Reorder) capsuleIndication mouth 2 (two) s: prevention of times a day. kidney transplant DOSE CHANGE: 2mg rejection twice a day omeprazole Take 1 capsule 30 capsule 11 02/13/20 Dis continued (PriLOSEC) 40 MG (40 mg total) by 9 20 (Reorder) capsule mouth daily. senna (SENNA) 8.6 Take 1 tablet by 30 tablet 11 09/12 Discontinued mg tablet mouth daily. 9 20 (Therap y completed) calcitriol Take 1 capsule 30 capsule 01/22/20 Dis continued (ROCALTROL) 0.5 (0.5 mcg total) 9 20 (Reorder) MCG by mouth daily capsuleIndication .low amount of s: hypocalcemia calcium in the blood. linaGLIPtin Take 1 tablet (5 90 tablet 3 09/03/19 D iscontinued (TRADJENTA) 5 mg mg total) by 9 20 tablet mouth daily. calcium carbonate Chew 1 tablet 90 tablet 01/22/20 Discontinued (TUMS) 200 mg (500 mg total) 3 9 20 calcium (500 mg) (three) times a chewable tablet day. carvedilol Take 1 tablet 60 tablet 02/19/20 Disco ntinued (COREG) 12.5 MG (12.5 mg total) 9 20 (Reorder) tablet by mouth 2 (two) times a day with meals. clonIDINE Take 1 tablet 30 tablet 02/19/20 Discon tinued (CATAPRES) 0.1 MG (0.1 mg total) 9 20 (Reorder) tablet by mouth nightly. magnesium Take 1 tablet 30 tablet 02/19/20 Discon tinued chloride 64 mg (64 mg total) by 9 20 (Reorder) tablet,delayed mouth daily. release (DR/EC) DR tablet polyethylene Take 17 g by 30 packet 11 09/12/19 Disc ontinued glycol (MIRALAX) mouth daily. 9 20 (Therapy 17 gram packet compl eted) amLODIPine Take 1 tablet 30 tablet 11 02/19/20 Disco ntinued (NORVASC) 10 mg (10 mg total) by 9 20 (Reorder) tablet mouth daily. insulin ASPART Inject 3-4 Units 0 09/20/19 Discontinued (NovoLOG Flexpen under the skin 3 20 (Reorder) U-100 Insulin) (three) times a 100 unit/mL (3 day with meals. mL) insulin pen mycophenolate Take 1 tablet 60 tablet 11 09/21/19 Di scontinued (CELLCEPT) 500 mg (500 mg total) 9 20 (Reorder) tablet by mouth 2 (two) times a day. RUN UNDER PART B; Maki SORIANO [phone] w any refill issues megestrol Take 1 tablet 30 tablet 11 09/12/19 Discon tinued (MEGACE) 40 MG (40 mg total) by 0 20 (Therapy tabletIndications mouth daily completed) : anorexia .anorexia. liraglutide Inject 0.3 mL 3 pen 6 11/23/19 Disc ontinued (VICTOZA 3-CAMERON) (1.8 mg total) 0 20 (Discontinued 0.6 mg/0.1 mL (18 under the skin by another mg/3 mL) pen daily with clinic [facility]) injector breakfast. pen needle, 4 Devices daily. 150 each 11 06/02/20 D iscontinued diabetic 31 gauge 0 20 x 5/16" needle fluticasone 2 sprays by Each 0 11/23/19 D iscontinued propionate Nare route 20 (Discont inued (FLONASE) 50 daily. by tomat her [facility] [place]) nasal spray azithromycin Take 2 tablets 6 tablet 0 09/16/19 Ex pired (ZITHROMAX Z-CAMERON) (500 mg) on Day 0 20 250 MG tablet 1, followed by 1 tablet (250 mg) once daily on Days 2 through 5. albuterol Take 3 mL (0.63 75 mL 12 09/12/19 Disc ontinued (ACCUNEB) 0.63 mg total) by 0 20 (A lternate mg/3 mL nebulizer nebulization 3 therapy) solutionIndicatio (three) times a ns: acute asthma day as needed attack for wheezing .asthma attack. linaGLIPtin Take 1 tablet (5 90 tablet 3 11/23/19 D iscontinued (TRADJENTA) 5 mg mg total) by 0 20 (Discontinued tablet mouth daily. by tomat her clinician) tacrolimus Take 2 capsules 120 capsule 11 07/08/20 D iscontinued (PROGRAF) 1 MG (2 mg total) by 0 20 (Reorder) capsuleIndication mouth 2 (two) s: prevention of times a day kidney transplant .prevent kidney rejection transplant rejection. DOSE CHANGE: 2mg twice a day doxycycline Take 1 tablet 28 tablet 0 11/14/19 Expi red (ADOXA) 100 MG (100 mg total) 0 20 tablet by mouth 2 (two) times a day for 14 days. Para la infeccion de la herida del pie blood sugar DX E11.65 400 strip 06/05/20 Disconti nued diagnostic strips Patient is 0 20 ( Reorder) (glucose blood) testing QID. strip test strips Please match to machine. lancets 33 gauge DX E11.65 400 each 05/20/20 Dis continued misc Patient is 0 20 (Reorder) testing QID. Please match to machine. ciprofloxacin Take 1 tablet 7 tablet 0 11/26/19 Ex pired (Cipro) 500 MG (500 mg total) 0 20 tablet by mouth every morning for 7 days. insulin lispro Inject 3 Units 0 11/26/19 Discontinued (HumaLOG) 100 under the skin 20 ( Reorder) unit/mL injection daily. Take with breakfast insulin NPH Inject 20 Units 0 11/26/19 Di scontinued (HumuLIN-N) 100 under the skin 20 (Reorder) unit/mL injection daily before breakfast. ciprofloxacin Take 1 tablet 10 tablet 0 11/30/19 Ex pired (Cipro) 500 MG (500 mg total) 0 20 tablet by mouth 2 (two) times a day for 5 days. calcium carbonate Chew 1 tablet 120 tablet 11 0 Discontinued (TUMS) 200 mg (500 mg total) 4 0 20 (Reorder) calcium (500 mg) (four) times a chewable tablet day. calcitrioL Take 2 capsules 60 capsule 11 02/19/20 Di scontinued (ROCALTROL) 0.5 (1 mcg total) by 0 20 (Reorder) MCG mouth daily .low capsuleIndication amount of s: hypocalcemia calcium in the blood. tacrolimus Take 3 capsules 180 capsule 07/08/20 D iscontinued (PROGRAF) 0.5 MG (1.5 mg total) 0 20 (Reorder) capsuleIndication by mouth 2 (two) s: prevention of times a day kidney transplant .prevent kidney rejection transplant rejection. DOSE CHANGE! Hospital, Clinic, or Other Ordered Dose Route Frequency Start Date End Date Status Facility Administered Medication denosumab (PROLIA) syringe 60 mg subQ once 05/20/2020 Ended 60 mgIndications: Steroid-induced osteoporosis Active Problems Problem Noted Date Open wound of left foot 05/20/2020 renal hyperparathyroidism s/p subtotal parathyroidecto my 03/19,with postop 05/20/2020 hypocalcemia Frequency of urination 11/23/2019 UTI (urinary tract infection) 11/23/2019 Other constipation 03/26/2019 Immunosuppressive management encounter following kidne y transplant 10/30/2018 Tertiary hyperparathyroidism 10/30/2018 Preop examination 10/30/2018 Closed displaced fracture of tuberosity of left calcan eus 02/23/2018 Dehydration 12/29/2017 Primary open angle glaucoma of right eye, moderate sta ge 12/27/2017 Pseudophakia 12/27/2017 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 10/27/2017 Steroid-induced osteoporosis 10/27/2017 Pyelonephritis 10/26/2017 Abnormal thyroid stimulating hormone (TSH) level 05/10 Proliferative diabetic retinopathy associated with typ e 2 diabetes 08/24/2016 mellitus Essential hypertension 08/24/2016 Mixed hyperlipidemia 08/24/2016 Non morbid obesity due to excess calories 08/24/2016 Osteopenia 08/24/2016 Kidney transplant recipient 08/24/2016 Vitamin D deficiency 08/24/2016 Diarrhea 08/07/2016 Vitamin D deficiency 04/13/2016 Nonspecific abnormal results of basal metabolism funct ion study 04/13/2016 Obesity due to excess calories without serious comorbi dity 04/13/2016 Essential (primary) hypertension 04/13/2016 Diabetic neuropathy associated with type 2 diabetes me llitus 04/13/2016 Encounter for aftercare following kidney transplant Neovascular glaucoma of left eye, 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 Encounters Date Type Specialty Care Team Description 07/08/2020 Refill Transplant Artur Med Refill BO Gambino 07/07/2020 Travel 06/05/2020 Orders Only Endocrinology Uzma Nieves MA 05/29/2020 Refill Endocrinology Onelia Bailey MD 05/20/2020 Office Visit Endocrinology Onelia Bailey 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) (Primary Dx); MD Velasquez Kidney transpla nt recipient; Diabetic polyne uropathy associated with type 2 diabetes mellitus (HCC); Proliferative d iabetic retinopathy of both eyes with macular edema associated with type 2 diabetes mellitus (HCC); Essential (prim elaine) hypertension; Mixed hyperlipi demia; Steroid-induced osteoporosis; Abnormal thyroi d stimulating hormone (TSH) level; Vitamin D defic iency; Open wound of l eft foot, sequela; renal hyperpara thyroidism s/p subtotal parathyroidectomy 03/19,with postop hypocalcemia; 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, with long-term current use of insulin (HCC) 05/20/2020 Travel 02/19/2020 Refill Transplant Artur Med Refill BO Gambino 02/13/2020 Telephone Transplant Darius, Rx Refill Requyovani Freemna MA 02/13/2020 Refill Transplant Artur, Med Refill BO Gambino 02/06/2020 Telephone Transplant Artur, Lab Review BO Gambino 01/22/2020 Telephone Consult Transplant Stark, Kidney rep laced by Tre Ascencio, transplant (P rimary Dx) 01/22/2020 Telephone Transplant Minerva, Speak to ivy Zamorano 01/18/2020 Telephone Transplant Jasmyn Angel Advice Only 01/15/2020 Travel 01/09/2020 Telephone Transplant Jasmyn Angel Advice Only 01/03/2020 Travel 11/26/2019 Orders Only Endocrinology Nieves, Uzma, MA 11/23/2019 Hospital Encounter General Internal Cristian Barton (primary) - Medicine MD Iron hypertension (Primary 11/25/2019 Amador, Dx) Roldan, 11/23/2019 Documentation Transplant Maki Siddiqui, BO 11/20/2019 Telephone Transplant Artur, Welfare Check Maki, BO 11/19/2019 Telephone Transplant Artur, Urinary Tract I nfection BO Gambino 11/06/2019 Orders Only Endocrinology Ezequiel Uzma, MA 10/31/2019 Refill Transplant Artur, Med Refill BO Gambino 09/26/2019 Telephone Endocrinology Jerri Mcdermott, KAHLIL 09/21/2019 Refill Transplant Artur, Med Refill Maki, BO 09/20/2019 Orders Only Endocrinology Uzma Nieves, MA 09/20/2019 Telephone Transplant Brown, RX REFILL Reque Darline , MA 09/19/2019 Telephone Transplant [place] Spring, Auth for MA Tacrolimus 09/14/2019 Orders Only Endocrinology Uzma Nieves, MA 09/12/2019 Telephone Transplant Artur, Welfare Check Maki, BO 09/11/2019 Office Visit Transplant Abdellatif, Mild persistent asthma Souleymane Luis MD with acute exacerbation Cinthia Ocampo (Primary Dx) 09/06/2019 Telephone Transplant Jasmyn Angel Advice Only 09/03/2019 Office Visit Endocrinology Onelia Bailey 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) (Primary Dx); MD Velasquez Kidney transpla nt recipient; Steroid-induced osteoporosis; Vitamin D defic iency; Essential hyper tension; Proliferative d iabetic retinopathy associated with type 2 diabetes mellitus, macular edema presence unspecified, unspecified laterality (HCC); Diabetic polyne uropathy associated with type 2 diabetes mellitus (HCC); Mixed hyperlipi demia; Osteoporosis, u nspecified osteoporosis type, unspecified pathological fracture presence; Abnormal thyroi d stimulating hormone (TSH) level 08/31/2019 Refill Transplant Artur, Med Refill BO Gambino 08/09/2019 Documentation Transplant Maki Siddiqui, BO after 07/27/2019 Immunizations Name Administration Dates Next Due FLUCELVAX QUAD PF 11/25/2019 (Deferred: Patient Refused) FLUZONE QUAD 05/10/2017 FLUZONE QUAD PF 06/19/2019 Pneumococcal Conjugate 13-Valent 10/14/2015 Surgical History Surgery Date Site/Laterality Comments SECTION, LOW TRANSVERSE NEPHRECTOMY TRANSPLANTED 08/01/2009 ORGAN AMPUTATION, TOE 08/01/2012 - Left left second toe 07/31/2013 NEPHRECTOMY 08/01/2016 - Right 07/31/2017 WRIST FRACTURE SURGERY Left long time ago OSTEOTOMY, CALCANEUS 02/23/2018 Foot/Left Procedure: LEFT CALCANEUS ORIF; Surgeon: Fidencio Buckner MD; Location: [facility] OR; Service : Orthopedics; La terality: Left; Medical devices from this surgery are in t he Implants section. REPAIR, TENDON, ACHILLES 03/27/2018 Ankle/Left Procedu re: Left calcaneus excision, debrid ement of wound and achill es; Surgeon: Fidencio Buckner MD; Location: [facility] OR; Service : Orthopedics; La terality: Left; DEBRIDEMENT left heel for in fection 04/2018 w/ Dr Brayden guzman UMBILICAL HERNIA REPAIR 08/01/2016 - 07/31/2017 DIALYSIS FISTULA CREATION Left EXPLORATION, NECK, WITH 03/15/2019 Neck/N/A Procedur e: PARATHYROIDECTOMY PARATHYROIDECT LIONEL WITH FOREARM REIMPLAN TATION; Surgeon: William Maldonado MD; Loca tion: [facility]; Servic e: General; Laterality: N/A ; Medical devices from this surgery are in t he Implants section. Medical History Medical History Date Comments Chronic kidney disease fistula left arm; kidney transplant 2009 Hypertension Hyperlipidemia Osteoporosis Diabetes mellitus (HCC) per pt not takin g humalog since it makes her sugar too low PONV (postoperative nausea and vomiting) NFHAP Disease of thyroid gland Family History Medical History Relation Name Comments Diabetes Father Diabetes Sister Relation Name Status Comments Father Sister Social History Tobacco Use Types Packs/Day Years Used Date Never Smoker Smokeless Tobacco: Never Used Alcohol Use Drinks/Week oz/Week Comments No Sex Assigned at Date Recorded Not on file Job Start Date Occupation Industry Not on file Not on file Not on file COVID-19 Exposure Response Date Recorded In the last month, have you been in contact with No / Unsure 07/07/2020 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 Last Filed Vital Signs Vital Sign Reading Time Taken Comments Blood Pressure 158/75 05/20/2020 1:36 PM CDT Pulse 71 05/20/2020 1:36 PM CDT Temperature 36.6 C (97.8 F) 11/25/2019 2:48 PM CDT Respiratory Rate 14 11/25/2019 2:48 PM CDT Oxygen Saturation 98% 05/20/2020 1:36 PM CDT Inhaled Oxygen Concentration - - Weight 54.4 kg (120 lb) 05/20/2020 1:36 PM CDT Height 156.2 cm (5' 1.5") 05/20/2020 1:36 PM CDT Body Mass Index 22.31 05/20/2020 1:36 PM CDT Plan of Treatment Date Type Specialty Care Team Description 09/16/2020 Office Visit Endocrinology Lynn, Onelia bess MD [address] [place], [place] [address] 10/07/2020 Lab Transplant Stark, Tre Ascencio MD [address] [place], [place] [address] Health Maintenance Due Date Last Done Comments COVID-19 VACCINE (#1) 1973 CERVICAL CANCER SCREENING 1978 COLONOSCOPY SCREENING 2007 SHINGLES VACCINES (#1) 2007 DIABETES: RETINAL EYE EXAM 12/27/2018 12/27/2017, 8, 11/22/2017, Additional history exists INFLUENZA VACCINE 03/01/2020 06/19/2019, 04/03/2018, 2016, Additional history exists BREAST CANCER SCREENING 06/29/2020 06/29/2018, 06/29/2018, 05/15/2018, Additional history exists DIABETIC FOOT EXAM 09/03/2020 09/03/2019, 11/27/2018, 01/10, Additional history exists Implants Implanted Type Area Conservation Specialist Device Shelf Model / Identifier Expiration Serial / Lot Date Becky Screw 6.5mm X 40mm X 16mm - [id number] IMPLANT Left: [employer] 07/12/2112 [id number] / Implanted: Qty: 1 on 02/23/2018 by Fidecnio Buckner MD at [facility] [employer] Heel / LOT NA Becky Screw 6.5mm X 45mm X 16mm - [id number] [id number] IMPLANT Left: LA [employer]NA BERUMEN 07/12/2112 [id number] / Implanted: Qty: 1 on 02/23/2018 by Fidencio Buckner MD at [facility] [employer] Heel / LOT NA Washerette Machine Operator Mltpl Clip Ligaclip Ligtng 20 Clips 23.8cm Ti - L [id number] Surgical N/A: ETHICON ENDO 12/30/2023 [id number] / Implanted: Qty: 3 on 03/15/2019 [address] Karli Maldonado MD at [facility] Implants; N/A SURGERY-ED / Expanders; [id number] Extenders; Surgical Wires Procedures Procedure Name Priority Date/Time Associated Diagnosis Comme nts DONOR SPECIFIC Routine 07/07/2020 9:45 Results f or ANTIBODY AM MANUFACTURING TEACHER this procedure are in the results section. ESTIMATED GFR Routine 07/07/2020 9:45 Results fo r AM MANUFACTURING TEACHER this procedure are in the results section. CYTOMEGALOVIRUS BY PCR Routine 07/07/2020 9:45 Other complica tion of Results for AM MANUFACTURING TEACHER kidney transplan t this procedure Kidney replaced by are in th e transplant results [facility] systemic section. steroid user Vitamin D defici ency Urinary tract infection without hematuria, site unspecified Screening for human immunodeficiency virus Other abnormal glucose FK506 TACROLIMUS Routine 07/07/2020 9:45 Other complication o f Results for LEVEL, RANDOM AM MANUFACTURING TEACHER kidney transplan t this procedure Kidney replaced by are in th e transplant results [facility] systemic section. 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 steroid user Vitamin D defici ency Urinary tract infection without hematuria, site unspecified Screening for human immunodeficiency virus Other abnormal glucose IMMUNOGLOBULIN G Routine 07/07/2020 9:45 Other complication o f Results for AM MANUFACTURING TEACHER kidney transplan t this procedure Kidney replaced by are in th e transplant results [facility] systemic section. steroid user Vitamin D defici ency Urinary tract infection without hematuria, site unspecified Screening for human immunodeficiency virus Other abnormal glucose PARATHYROID HORMONE Routine 07/07/2020 9:45 Other complicatio n of Results for AM MANUFACTURING TEACHER kidney transplan t this procedure Kidney replaced by are in th e transplant results [facility] systemic section. steroid user Vitamin D defici ency Urinary tract infection without hematuria, site unspecified Screening for human immunodeficiency virus Other abnormal glucose CREATININE LEVEL, Routine 07/07/2020 9:45 Other complication of Results for URINE, RANDOM AM MANUFACTURING TEACHER kidney transplan t this procedure Kidney replaced by are in th e transplant results [facility] systemic section. steroid user Vitamin D defici ency Urinary tract infection without hematuria, site unspecified Screening for human immunodeficiency virus Other abnormal glucose PROTEIN, URINE, RANDOM Routine 07/07/2020 9:45 Other complica tion of Results for AM MANUFACTURING TEACHER kidney transplan t this procedure Kidney replaced by are in th e transplant results [facility] systemic section. steroid user Vitamin D defici ency Urinary tract infection without hematuria, site unspecified Screening for human immunodeficiency virus Other abnormal glucose BK VIRUS BY PCR Routine 07/07/2020 9:45 Other complication of Results for AM MANUFACTURING TEACHER kidney transplan t this procedure Kidney replaced by are in th e transplant results [facility] systemic section. 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 steroid user Vitamin D defici ency Urinary tract infection without hematuria, site unspecified Screening for human immunodeficiency virus Other abnormal glucose PHOSPHORUS LEVEL Routine 07/07/2020 9:45 Other complication o f Results for AM MANUFACTURING TEACHER kidney transplan t this procedure Kidney replaced by are in th e transplant results [facility] systemic section. steroid user Vitamin D defici ency Urinary tract infection without hematuria, site unspecified Screening for human immunodeficiency virus Other abnormal glucose MAGNESIUM LEVEL Routine 07/07/2020 9:45 Other complication of Results for AM [employer]UFACTURING TEACHER kidney transplan t this procedure Kidney replaced by are in th e transplant results [employer] systemic section. 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 steroid user Vitamin D defici ency Urinary tract infection without hematuria, site unspecified Screening for human immunodeficiency virus Other abnormal glucose HC COMPLETE BLD COUNT Routine 07/07/2020 9:45 Other complicat ion of Results for W/AUTO DIFF AM [employer]ING TE[employer]ER kidney transplan t this procedure Kidney replaced by are in th e transplant results [facility] systemic section. steroid user Vitamin D defici ency Urinary tract infection without hematuria, site unspecified Screening for human immunodeficiency virus Other abnormal glucose URINE CULTURE Routine 07/07/2020 9:45 Results fo r AM [employer]ING TE[employer] this procedure are in the results section. 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 VITAMIN D 25 HYDROXY Routine 04/03/2020 9:35 Uncontrolled typ e 2 Results for LEVEL AM CDT diabetes mellitus with this procedure nephropathy (HCC ) are in the Vitamin D deficiency results section. THYROID STIMULATING Routine 04/03/2020 9:35 Uncontrolled type 2 Results for HORMONE AM CDT diabetes mellitus with this procedure nephropathy (HCC) are in the results section. T4, FREE Routine 04/03/2020 9:35 Uncontrolled type 2 Resu lts for AM CDT diabetes mellitus with this procedure nephropathy (HCC) are in the results section. 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 LIPID PANEL Routine 04/03/2020 9:35 Uncontrolled type 2 Resu lts for AM CDT diabetes mellitus with this procedure nephropathy (HCC) are in the results section. LIPASE LEVEL Routine 04/03/2020 9:35 Uncontrolled type 2 Resu lts for AM CDT diabetes mellitus with this procedure nephropathy (HCC) are in the results section. HEMOGLOBIN A1C Routine 04/03/2020 9:35 Uncontrolled type 2 Re sults for AM CDT diabetes mellitus with this procedure nephropathy (HCC) are in the results section. COMPREHENSIVE Routine 04/03/2020 9:35 Uncontrolled type 2 Res ults for METABOLIC PANEL AM CDT diabetes mellitus with th is procedure nephropathy (HCC) are in the results section. AMYLASE LEVEL Routine 04/03/2020 9:35 Uncontrolled type 2 Res ults for AM CDT diabetes mellitus with this procedure nephropathy (HCC) are in the results section. CBC WITH PLATELET AND Routine 04/03/2020 9:35 Uncontrolled ty pe 2 Results for DIFFERENTIAL AM CDT diabetes mellitus with this procedure nephropathy (HCC) are in the results section. DONOR SPECIFIC Routine 01/15/2020 8:09 Results f or ANTIBODY AM CDT this procedure are in the results section. ESTIMATED GFR Routine 01/15/2020 8:09 Results fo r AM CDT this procedure are in the results section. FK506 TACROLIMUS Routine 01/15/2020 8:09 Kidney replaced by R esults for LEVEL, RANDOM AM CDT transplant this procedure Other complication of are in the kidney transplan t results [employer] systemic section. steroid user Vitamin D defici ency Urinary tract infection without hematuria, site unspecified Screening for human immunodeficiency virus Other abnormal glucose VITAMIN D 25 HYDROXY Routine 01/15/2020 8:09 Kidney replaced by Results for LEVEL AM CDT transplant this procedure Other complication of are in the kidney transplan t results [facility] systemic section. steroid user Vitamin D defici ency Urinary tract infection without hematuria, site unspecified Screening for human immunodeficiency virus Other abnormal glucose CYTOMEGALOVIRUS BY PCR Routine 01/15/2020 8:09 Kidney replace d by Results for AM CDT transplant this procedure Other complication of are in the kidney transplan t results [employer] systemic section. steroid user Vitamin D defici ency Urinary tract infection without hematuria, site unspecified Screening for human immunodeficiency virus Other abnormal glucose HEMOGLOBIN A1C Routine 01/15/2020 8:09 Kidney replaced by Res ults for AM CDT transplant this procedure Other complication of are in the kidney transplan t results [employer] systemic section. steroid user Vitamin D defici ency Urinary tract infection without hematuria, site unspecified Screening for human immunodeficiency virus Other abnormal glucose LIPID PANEL Routine 01/15/2020 8:09 Kidney replaced by Resul ts for AM CDT transplant this procedure Other complication of are in the kidney transplan t results [employer] systemic section. steroid user Vitamin D defici ency Urinary tract infection without hematuria, site unspecified Screening for human immunodeficiency virus Other abnormal glucose PARATHYROID HORMONE Routine 01/15/2020 8:09 Kidney replaced b y Results for AM CDT transplant this procedure Other complication of are in the kidney transplan t results [facility] systemic section. steroid user Vitamin D defici ency Urinary tract infection without hematuria, site unspecified Screening for human immunodeficiency virus Other abnormal glucose CREATININE LEVEL, Routine 01/15/2020 8:09 Kidney replaced by Results for URINE, RANDOM AM CDT transplant this procedure Other complication of are in the kidney transplan t results [facility] systemic section. steroid user Vitamin D defici ency Urinary tract infection without hematuria, site unspecified Screening for human immunodeficiency virus Other abnormal glucose PROTEIN, URINE, RANDOM Routine 01/15/2020 8:09 Kidney replace d by Results for AM CDT transplant this procedure Other complication of are in the kidney transplan t results [employer] systemic section. steroid user Vitamin D defici ency Urinary tract infection without hematuria, site unspecified Screening for human immunodeficiency virus Other abnormal glucose URINALYSIS SCREEN AND Routine 01/15/2020 8:09 Kidney replaced by Results for MICROSCOPY, WITH AM CDT transplant this procedure REFLEX TO CULTURE Other complication of a re in the kidney transplan t results [facility] systemic section. steroid user Vitamin D defici ency Urinary tract infection without hematuria, site unspecified Screening for human immunodeficiency virus Other abnormal glucose PHOSPHORUS LEVEL Routine 01/15/2020 8:09 Kidney replaced by R esults for AM CDT transplant this procedure Other complication of are in the kidney transplan t results [facility] systemic section. steroid user Vitamin D defici ency Urinary tract infection without hematuria, site unspecified Screening for human immunodeficiency virus Other abnormal glucose MAGNESIUM LEVEL Routine 01/15/2020 8:09 Kidney replaced by Re sults for AM CDT transplant this procedure Other complication of are in the kidney transplan t results [employer] systemic section. steroid user Vitamin D defici ency Urinary tract infection without hematuria, site unspecified Screening for human immunodeficiency virus Other abnormal glucose COMPREHENSIVE Routine 01/15/2020 8:09 Kidney replaced by Resu lts for METABOLIC PANEL AM CDT transplant this procedure Other complication of are in the kidney transplan t results [employer] systemic section. steroid user Vitamin D defici ency Urinary tract infection without hematuria, site unspecified Screening for human immunodeficiency virus Other abnormal glucose HC COMPLETE BLD COUNT Routine 01/15/2020 8:09 Kidney replaced by Results for W/AUTO DIFF AM CDT transplant this procedure Other complication of are in the kidney transplan t results [employer] systemic section. steroid user Vitamin D defici ency Urinary tract infection without hematuria, site unspecified Screening for human immunodeficiency virus Other abnormal glucose URINE CULTURE Routine 01/15/2020 8:09 Results fo r AM CDT this procedure are in the results section. POC GLUCOSE Routine 11/25/2019 4:08 Results for PM CDT this procedure are in the results section. XR ABDOMEN 2 VW AP W STAT 11/25/2019 1:12 Res ults for UPRIGHT AND/OR PM CDT this procedur e DECUBITUS are in the results section. POC GLUCOSE Routine 11/25/2019 11:01 Results for AM CDT this procedure are in the results section. POC GLUCOSE Routine 11/25/2019 5:30 Results for AM CDT this procedure are in the results section. POC GLUCOSE Routine 11/24/2019 7:57 Results for PM CDT this procedure are in the results section. POC GLUCOSE Routine 11/24/2019 5:20 Results for PM CDT this procedure are in the results section. US RENAL STAT 11/24/2019 2:21 Results for PM CDT this procedure are in the results section. POC GLUCOSE Routine 11/24/2019 12:18 Results for PM CDT this procedure are in the results section. POC GLUCOSE Routine 11/24/2019 5:56 Results for AM CDT this procedure are in the results section. XR ABDOMEN 1 VW Routine 11/23/2019 8:36 Results for PORTABLE PM CDT this procedure are in the results section. BLOOD CULTURE, AEROBIC Routine 11/23/2019 6:20 R esults for & ANAEROBIC PM CDT this procedure are in the results section. SMEAR REVIEW Routine 11/23/2019 6:05 Results for PM CDT this procedure are in the results section. ESTIMATED GFR Routine 11/23/2019 6:05 Results fo r PM CDT this procedure are in the results section. THYROID STIMULATING Routine 11/23/2019 6:05 Resu lts for HORMONE PM CDT this procedure are in the results section. PHOSPHORUS LEVEL Routine 11/23/2019 6:05 Results for PM CDT this procedure are in the results section. MAGNESIUM LEVEL Routine 11/23/2019 6:05 Results for PM CDT this procedure are in the results section. LACTIC ACID LEVEL Routine 11/23/2019 6:05 Result s for PM CDT this procedure are in the results section. HEMOGLOBIN A1C Routine 11/23/2019 6:05 Results f or PM CDT this procedure are in the results section. COMPREHENSIVE Routine 11/23/2019 6:05 Results fo r METABOLIC PANEL PM CDT this procedu re are in the results section. B NATRIURETIC PEPTIDE Routine 11/23/2019 6:05 Re sults for PM CDT this procedure are in the results section. PROTHROMBIN TIME WITH Routine 11/23/2019 6:05 Re sults for INR PM CDT this procedure are in the results section. HC COMPLETE BLD COUNT Routine 11/23/2019 6:05 Re sults for W/AUTO DIFF PM CDT this procedure are in the results section. BLOOD CULTURE, AEROBIC Routine 11/23/2019 6:05 R esults for & ANAEROBIC PM CDT this procedure are in the results section. URINALYSIS SCREEN AND Routine 11/23/2019 5:30 Re sults for MICROSCOPY, WITH PM CDT this proced ure REFLEX TO CULTURE are in the results section. URINE CULTURE Routine 11/23/2019 5:30 Results fo r PM CDT this procedure are in the results section. ESTIMATED GFR Routine 09/11/2019 8:41 Results fo r AM [employer] this procedure are in the results section. FK506 TACROLIMUS Routine 09/11/2019 8:41 Other complication o f Results for LEVEL, RANDOM AM [employer]ING TE[employer]ER kidney transplan t this procedure Kidney replaced by are in th e transplant results [facility] systemic section. 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 steroid user Vitamin D defici ency Urinary tract infection without hematuria, site unspecified Screening for human immunodeficiency virus Other abnormal glucose URINALYSIS SCREEN AND Routine 09/11/2019 8:41 Other complicat ion of Results for MICROSCOPY, WITH AM MANUFACTURING TEACHER kidney transpla nt this procedure REFLEX TO CULTURE Kidney replaced by are in the transplant results [facility] systemic section. 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 steroid user Vitamin D defici ency Urinary tract infection without hematuria, site unspecified Screening for human immunodeficiency virus Other abnormal glucose MAGNESIUM LEVEL Routine 09/11/2019 8:41 Other complication of Results for AM MANUFACTURING TEACHER kidney transplan t this procedure Kidney replaced by are in th e transplant results [employer] systemic section. steroid user Vitamin D defici ency Urinary tract infection without hematuria, site unspecified Screening for human immunodeficiency virus Other abnormal glucose COMPREHENSIVE Routine 09/11/2019 8:41 Other complication of R esults for METABOLIC PANEL AM MANUFACTURING TEACHER kidney transplan t this procedure Kidney replaced by are in th e transplant results [employer] ex[employer] systemic section. steroid user Vitamin D defici ency Urinary tract infection without hematuria, site unspecified Screening for human immunodeficiency virus Other abnormal glucose HC COMPLETE BLD COUNT Routine 09/11/2019 8:41 Other complicat ion of Results for W/AUTO DIFF AM [employer]UFACTURING TEACHER kidney transplan t this procedure Kidney replaced by are in th e transplant results [employer] systemic section. steroid user Vitamin D defici ency Urinary tract infection without hematuria, site unspecified Screening for human immunodeficiency virus Other abnormal glucose URINE CULTURE Routine 09/11/2019 8:41 Results fo r AM [employer]URING TE[employer]ER this procedure are in the results section. EXTRA SERUM SPECIMEN Routine 09/03/2019 8:23 Res ults for AM MANUFACTURING TEACHER this procedure are in the results section. PARATHYROID HORMONE Routine 09/03/2019 8:23 Uncontrolled type 2 Results for AM [employer]ING TE[employer]ER diabetes mellitus with this procedure nephropathy (HCC) are in the results section. PHOSPHORUS LEVEL Routine 09/03/2019 8:23 Uncontrolled type 2 Results for AM [employer]UFACTURING TEACHER diabetes mellitus with this procedure nephropathy (HCC) are in the results section. CBC WITH PLATELET AND Routine 09/03/2019 8:23 Uncontrolled ty pe 2 Results for DIFFERENTIAL AM [employer]ING TEACHER diabetes mellitus with this procedure nephropathy (HCC) are in the results section. COMPREHENSIVE Routine 09/03/2019 8:23 Uncontrolled type 2 Res ults for METABOLIC PANEL AM [employer]ING TE[employer]ER diabetes mellitus with th is procedure nephropathy (HCC) are in the results section. HEMOGLOBIN A1C Routine 09/03/2019 8:23 Uncontrolled type 2 Re sults for AM [employer]UFACTURING TEACHER diabetes mellitus with this procedure nephropathy (HCC) are in the results section. FRUCTOSAMINE Routine 09/03/2019 8:23 Uncontrolled type 2 Resu lts for AM MANUFACTURING TEACHER diabetes mellitus with this procedure nephropathy (HCC) are in the results section. after 07/27/2019 Results Urinalysis screen and microscopy, with reflex to culture (07/07/2020 9:45 AM MANUFACTURING TEACHER)Only the most recent of4 resultswithin the time period is included. Specimen site Clean catch [facility] Color, UA Straw [facility] Appearance, UA Clear [facility] Specific gravity, UA 1.010 1.001 - 1.035 [facility] pH, UA 6.0 5.0 - 8.5 [facility] Protein, UA Negative Negative [facility] Glucose, UA Negative Negative [facility] Ketones, UA Negative Negative [facility] Bilirubin, UA Negative Negative [facility] Blood, UA Negative Negative [facility] Nitrite, UA Negative Negative [facility] Urobilinogen, UA <2.0 <2.0 [facility] Leukocyte esterase, Negative Negative [facility] Epithelial cells, UA <1 /HPF [facility] Round epithelial <1 0 - 1 /HPF [facility] cells, [facility] WBC, UA 1 0 - 4 /HPF [facility] RBC, UA 1 0 - 5 /HPF [facility] Bacteria, UA Few None seen [facility] Yeast, UA None seen [facility] Yeast with None seen [facility] pseudohyphae, [facility] Specimen Urine Performing Organization Address City/State/ZIP Code Phon e Number [facility] DEPARTMENT OF PATHOLOGY AND [address] [place], [place] [address] GENOMIC MEDICINE [address] [address] Estimated GFR (07/07/2020 9:45 AM MANUFACTURING TEACHER)Only the most recent of4 resultswithin the time period is included. [facility] Estimated GFR 27 (A) mL/min/1.73 [facility] Comment: m2 HOSPITAL Catergory Units Interpretation G1 >=90 Normal or high G2 60-89 Mildly decreased G3a 45-59 Mildly to moderately decreas ed G3b 30-44 Moderately to severely decre ased G4 15-29 Severely decreased G5 <15 Kidney failure The eGFR was calculated using the Chronic Kidney Disea se Epidemiology Collaboration (CKD-EPI) equation. Interpretation is based on recommendations of the National Kidney Foundation-Kidney Disease Outcomes Zaid lity Initiative (NKF-KDOQI) published in 2014. Specimen Plasma Performing Organization Address City/[facility] Phon e Number [facility] DEPARTMENT OF PATHOLOGY AND [address] [place] [address] Cytomegalovirus by PCR (07/07/2020 9:45 AM MANUFACTURING TEACHER)Only the most recent of3 results within the time period is included. [facility] Cytomegalovirus by PCR <300 (A) Not-Detected [facility] IU/mL [facility] Cytomegalovirus by PCR See link [facility] below for PDF HOSPITAL Lab ReportComment : Specimen Plasma Performing Organization Address City/[facility] Phon e Number [facility] DEPARTMENT OF PATHOLOGY AND [address] [place] [address] Donor specific antibody (07/07/2020 9:45 AM MANUFACTURING TEACHER)Only the most recent of2 resultswithin the time period is included. [facility] DSA serum ID [id number] [facility] DSA serum collection 07/07/2020 09:45 [facility] [place] [facility] DSA class I antibody B49,A32,B13,B60,B [facility] assignment 51,B57,B61,A25,B3 HOSPITAL 8,B63,A23,B37,B58 ,B59,B27,B47,B7,B 81,B44,B53,B77,A2 4,B52,B48,B50,B45 ,B41,B73 DSA antibody I NONE [facility] DSA cPRA class I 89 [facility] DSA class II Negative [facility] antibody assignment HOSPITAL DSA antibody II NONE [facility] DSA cPRA class II 0 [facility] Donor specific See link below [facility] antibody for PDF Lab HOSPITAL Report Specimen Blood Performing Organization Address [facility] Phon e Number [facility] DEPARTMENT OF PATHOLOGY AND [address] [place] [address] BK virus by PCR (07/07/2020 9:45 AM MANUFACTURING TEACHER)Only the most recent of2 resultswithin the time period is included. Pathologist Sig nature BK virus PCR Not-Detected Not-Detected [facility] copies/mL [facility] BK virus PCR See link below [facility] for PDF Lab HOSPITAL ReportComment: Specimen Plasma Performing Organization Address [facility] Phon e Number [facility] DEPARTMENT OF PATHOLOGY AND [address] [place] [address] [address] Tacrolimus level, random (07/07/2020 9:45 AM MANUFACTURING TEACHER)Only the most recent of3 resultswithin the time period is included. FK506 level 10.2 ng/mL [facility] Comment: HOSPITAL Therapeutic range 5-20 ng/mL for 12 hour trough. The r jesus varies depending on the organ transplanted, time after transplantation and co-administered immunosuppressant therapies. Please use clinical judgment to interpret test result. Test performed using [employer] chemiluminescent microparticle immunoassay for Tacrolimus on the Relevant e-solution i System. Specimen Blood Performing Organization Address City/[facility] Phon e Number [facility] DEPARTMENT OF PATHOLOGY AND [address] [place] [address] 0 [place] [address] Protein, urine, random (07/07/2020 9:45 AM MANUFACTURING TEACHER)Only the most recent of3 results within the time period is included. Pathologist Sig nature Protein, urine random 13 mg/dL [facility] Specimen Urine Performing Organization Address City/[facility] Phon e Number [facility] DEPARTMENT OF PATHOLOGY AND [address] [place] [address] [address] [address] Creatinine level, urine, random (07/07/2020 9:45 AM MANUFACTURING TEACHER)Only the most recent of 3 resultswithin the time period is included. Pathologist Sig nature Creatinine, urine, 48 mg/dL [facility] random HOSPITAL Specimen Urine Performing Organization Address City/[facility] Phon e Number [facility] DEPARTMENT OF PATHOLOGY AND [address] [place] [phone] [facility] [address] [place] [id number] Vitamin D 25 hydroxy level (07/07/2020 9:45 AM MANUFACTURING TEACHER)Only the most recent of3 resultswithin the time period is included. Vitamin D, 60.7 30.0 - 150.0 [facility] 25-hydroxy Comment: ng/mL HOSPITAL This assay reports the sum of 25-hydroxy vitamin D3 an d 25-hydroxy vitamin D2. Reference range: 0-17 years: Deficiency: less than 20ng/mL Optimum level: greater than or equal to 20 ng/mL. 18 years and older: Deficiency: less than 20ng/mL Insufficiency: 20-29 ng/mL Optimum Level: 30-80 ng/mL The assay reportable range is 3.4 155.9 ng/mL. Level s higher than 150 ng/mL may be associated with toxicity. If toxicity is clinically suspected and the reported r esult is >155.9 ng/mL,contact lab for alternative methods to obtain a definitive level. If separate quantitation of 25-hydroxy vitamin D3 and 25-hydroxy vitamin D2 is needed, please contact lab for alternative methods. Specimen Blood Performing Organization Address City/[facility] Phon e Number [facility] DEPARTMENT OF PATHOLOGY AND [address] [place] [address] [phone] [address] CBC with platelet and differential (07/07/2020 9:45 AM MANUFACTURING TEACHER)Only the most recent of6 resultswithin the time period is included. WBC 4.05 (L) 4.50 - 11.00 [facility] k/uL HOSPITAL RBC 3.82 (L) 4.20 - 5.50 [facility] m/uL HOSPITAL HGB 11.1 (L) 12.0 - 16.0 [facility] g/dL HOSPITAL HCT 36.2 (L) 37.0 - 47.0 % [facility] MCV 94.8 82.0 - 100.0 [facility] MCH 29.1 27.0 - 34.0 pg [facility] MCHC 30.7 (L) 31.0 - 37.0 [facility] g/dL [facility] RDW - SD 43.4 37.0 - 55.0 fL [facility] MPV 10.6 8.8 - 13.2 fL [facility] Platelet count 216 150 - 400 k/uL [facility] Nucleated RBC 0.00 /100 WBC [facility] Neutrophils 80.3 (H) 39.0 - 69.0 % [facility] Lymphocytes 10.6 (L) 25.0 - 45.0 % [facility] Monocytes 7.9 0.0 - 10.0 % [facility] Eosinophils 0.5 0.0 - 5.0 % [facility] Basophils 0.2 0.0 - 1.0 % [facility] Immature granulocytes 0.5Comment: 0.0 - 1.0 % [facility] "[facility] granulocytes" (promyelocytes , myelocytes, metamyelocytes ) Specimen Plasma Performing Organization Address City/[facility] Phon e Number [facility] DEPARTMENT OF PATHOLOGY AND [address] [place] [address] [phone] [address] Urine culture (07/07/2020 9:45 AM MANUFACTURING TEACHER)Only the most recent of4 resultswithin the time period is included. Pathologist Sig nature Urine culture SEE COMMENTComment: [facility] Bacteriuria screen HOSPITAL negative. Specimen Performing Organization Address City/[facility] Phon e Number [facility] DEPARTMENT OF PATHOLOGY AND [address] [place] [address] [phone] [address] Phosphorus level (07/07/2020 9:45 AM MANUFACTURING TEACHER)Only the most recent of6 resultswithin the time period is included. Pathologist Sig nature Phosphorus 4.4 2.4 - 4.5 mg/dL [facility] L Specimen Plasma Performing Organization Address City/[facility] Phon e Number [facility] DEPARTMENT OF PATHOLOGY AND [address] [place] [address] [phone] [address] Parathyroid hormone (07/07/2020 9:45 AM MANUFACTURING TEACHER)Only the most recent of4 results within the time period is included. Pathologist Sig nature PTH 34 15 - 65 pg/mL [facility] Specimen Blood Performing Organization Address City/[facility] Phon e Number [facility] DEPARTMENT OF PATHOLOGY AND [address] [place] [address] [phone] [address] Magnesium level (07/07/2020 9:45 AM MANUFACTURING TEACHER)Only the most recent of4 resultswithin the time period is included. Pathologist Sig nature Magnesium 1.9 1.6 - 2.4 mg/dL [facility] Specimen Plasma Performing Organization Address [facility] Phon e Number [facility] DEPARTMENT OF PATHOLOGY AND [address] [place] [address] [phone] [address] Immunoglobulin G (07/07/2020 9:45 AM MANUFACTURING TEACHER) Pathologist Sig nature IgG 923 700 - 1,600 mg/dL [facility] SOTO Specimen Plasma Performing Organization Address [facility] Phon e Number [facility] DEPARTMENT OF PATHOLOGY AND [address] [place] [address] [phone] [address] Comprehensive metabolic panel (07/07/2020 9:45 AM MANUFACTURING TEACHER)Only the most recent of6 resultswithin the time period is included. Sodium 141 135 - 148 [facility] mEq/L [facility] Potassium 4.1 3.5 - 5.0 [facility] mEq/L [facility] Chloride 102 98 - 112 [facility] mEq/L [facility] CO2 26 24 - 31 mEq/L [facility] Anion gap 13@ANIO 7 - 15 mEq/L [facility] BUN 37 (H) 8 - 23 mg/dL [facility] Creatinine 1.92 (H) 0.50 - 0.90 [facility] mg/dL HOSPITAL Glucose 116 (H) 65 - 99 mg/dL [facility] Calcium 10.2 8.8 - 10.2 [facility] mg/dL HOSPITAL Protein 7.3 6.3 - 8.3 [facility] Comment: g/dL HOSPITAL - 4.6-7.0 g/dL 1 week 4.4-7.6 g/dL 7 months-1year 5.1-7.3 g/dL 1-2 years 5.6-7.5 g/dL >3 years 6.0-8.0 g/dL 18-150 6.3-8.3 g/dL Albumin 4.4 3.5 - 5.0 [facility] g/dL [facility] A/G ratio 1.5 0.7 - 3.8 [facility] Alkaline phosphatase 57 35 - 104 U/L [facility] AST 22 10 - 35 U/L [facility] ALT 21 5 - 50 U/L [facility] Total bilirubin 0.4 0.0 - 1.2 [facility] mg/dL [facility] Specimen Plasma Performing Organization Address [facility] Phon e Number [facility] DEPARTMENT OF PATHOLOGY AND [address] [place] [phone] [facility]OM[facility] MEDICINE [address] [address] Microalbumin / creatinine urine ratio (04/03/2020 9:35 AM CDT) Creatinine, 69 20 - 275 [facility] urine, random mg/dL [facility] Microalbumin, 6.6 See Note: [facility] urine Comment: mg/dL [facility] Reference Range: Reference Range Not established Microalbumin/cre 96 (H) <30 mcg/mg [facility] atinine ratio Comment: creat [facility] The ADA defines abnormalities in albumin excretion as follows: Category Result (mcg/mg creatinine) Normal <30 Microalbuminuria 30-299 Clinical albuminuria > OR = 300 The ADA recommends that at least two of three specimens collected within a 3-6 month period be abnormal before considering a patient to be within a diagnostic category. Specimen Urine Narrative Performed At FASTING:YES [facility] FASTING: YES Resulting Agency Comment Performing Organization Information: Site ID: [email or web address] Name: [email or web address] Address: [address] [place] [phone] Director: Jake Guillen Performing Organization Address City/[facility] Phon e Number [facility] [address] [address] Thyroid stimulating hormone (04/03/2020 9:35 AM CDT)Only the most recent of2 resultswithin the time period is included. Pathologist Sig nature TSH 4.05 0.40 - 4.50 mIU/L [facility] ON Specimen Blood Narrative Performed At FASTING:YES [facility] FASTING: YES Resulting Agency Comment Performing Organization Information: Site ID: RGA Name: [email or web address] Address: [address] [place] [phone] Director: Jake Guillen Performing Organization Address [facility] Phon e Number [place] [address] T4, free (04/03/2020 9:35 AM CDT) Pathologist Sig nature T4, free 1.2 0.8 - 1.8 ng/dL [facility] MILLER Specimen Blood Narrative Performed At FASTING:YES [facility] FASTING: YES Resulting Agency Comment Performing Organization Information: Site ID: RGA Name: [email or web address] Address: [address] [place] [phone] Director: Jake Guillen Performing Organization Address [facility] Phon e Number [facility] [place] [phone] Lipase level (04/03/2020 9:35 AM CDT) Pathologist Sig nature Lipase 29 7 - 60 U/L [facility] Specimen Blood Narrative Performed At FASTING:YES [facility] FASTING: YES Resulting Agency Comment Performing Organization Information: Site ID: RGA Name: [email or web address] Address: [address] [place] [phone] Director: Jake Guillen Performing Organization Address [facility] Phon e Number [place] [address] Hemoglobin A1c (04/03/2020 9:35 AM CDT)Only the most recent of4 resultswithin the time period is included. Hemoglobin A1C 7.4 (H) <5.7 % of [facility] Comment: total Hgb R[place] For someone without known diabetes, a hemoglobin A1c value of 6.5% or greater indicates that they may have diabetes and this should be confirmed with a follow-up test. For someone with known diabetes, a value <7% indicates that their diabetes is well controlled and a value greater than or equal to 7% indicates suboptimal control. A1c targets should be individualized based on duration of diabetes, age, comorbid conditions, and other considerations. Currently, no consensus exists regarding use of hemoglobin A1c for diagnosis of diabetes for children. Specimen Blood Narrative Performed At FASTING:YES [facility] FASTING: YES Resulting Agency Comment Performing Organization Information: Site ID: A Name: [email or web address] Address: [address] [place] [phone] Director: Jake Guillen Performing Organization Address [facility] e Number [place] [address] Amylase level (04/03/2020 9:35 AM CDT) Pathologist [facility] nature Amylase 57 21 - 101 U/L [facility] Specimen Blood Narrative Performed At FASTING:YES [facility] FASTING: YES Resulting Agency Comment Performing Organization Information: Site ID: A Name: [email or web address] Address: [address] [place] [phone] Director: Jake Guillen Performing Organization Address [facility] e Number [employer] [place] [address] Lipid panel (04/03/2020 9:35 AM CDT)Only the most recent of2 resultswithin the time period is included. Cholesterol, total 80 <200 mg/dL [facility] HDL cholesterol 36 (L) > OR = 50 [facility] mg/dL [facility] Triglycerides 70 <150 mg/dL [facility] LDL cholesterol 29 mg/dL (calc) [facility] calculated Comment: [facility] Reference range: <100 Desirable range <100 mg/dL for primary prevention; <70 mg/dL for patients with CHD or diabetic patients with > or = 2 CHD risk factors. LDL-C is now calculated using the Myranda calculation, which is a validated novel method providi ng better accuracy than the Friedewald equation in the estimation of LDL-C. Franklin SS et al. NIRAJ. 2013;310(19): 8780-3334 (http://education.HouseLens.Energy Points/faq/RFL857) Cholesterol/HDL 2.2 <5.0 (calc) [facility] ratio [facility] Non-HDL cholesterol 44 <130 mg/dL [facility] Comment: (calc) [facility] For patients with diabetes plus 1 major ASCVD risk factor, treating to a non-HDL-C goal of <100 mg/dL (LDL-C of <70 mg/dL) is considered a therapeutic option. Specimen Blood Narrative Performed At FASTING:YES [facility] FASTING: YES Resulting Agency Comment Performing Organization Information: Site ID: RGA Name: [email or web address] Address: [address] [place] [phone] Director: Jake Guillen Performing Organization Address City/[facility] Phon e Number [facility] [place] [phone] POC glucose (11/25/2019 4:08 PM CDT)Only the most recent of7 resultswithin the time period is included. Pathologist Sig nature POC glucose 265 (H) 65 - 99 mg/dL [facility] Comment: [facility] Cardiovascular Rn Name: Aldo Parrish Device ID: [id number] Specimen Blood Performing Organization Address City/[facility] Phon e Number [facility] DEPARTMENT OF PATHOLOGY AND [phone] [place] [address] [place] [address] GENOMIC MEDICINE [facility] [address] [address] [place], [place] [address] [facility] XR Abdomen 2 Vw Ap W Upright And/Or Decubitus (11/25/2019 1:12 PM CDT) Specimen Narrative Performed At Examination: XR ABDOMEN 2 VW AP W UPRI GHT AND OR DECUBITUS [facility] Clinical history: "Abd pain unspecified, Abd traum a blunt unstable" Comparison: 11/22/2018 IMPRESSION: Stool is present in the colon to a lesse r degree than on the previous exam.. There is no evidence of acute di sease within the imaged portions of both lung bases. The imaged bones a ppear to be degenerative. Surgical clips are seen in the abdomen. Vascular calcifications are see n. [facility]-PRAJKS Procedure Note Interface, Radiology Results Incoming - 11/25/2019 1:23 PM CDT Examination: XR ABDOMEN 2 VW AP W UPRIGHT AND OR DECUBITUS Clinical history: "Abd pain unspecifie d, Abd trauma blunt unstable" Comparison: 11/22/2018 IMPRESSION: Stool is present in the col on to a lesser degree than on the previous exam.. There is no evidence of acute disease within the imaged portions of both lung bases. The imaged bones appear to be degenerative. Surgical clips are seen in the abdomen. Vascular calcifications are see n. [facility]AGAL[facility] Performing Organization Address City/State/ZIP Code Phon e Number [facility] [address] [place] [address] US Renal (11/24/2019 2:21 PM CDT) Specimen Narrative Performed At EXAMINATION: US RENAL [facility] CLINICAL HISTORY: transplanted kidney TECHNIQUE: Sonographic images of the renal transplant were obtained as well as grayscale, color Doppler, and waveform analysi s of the renal transplant vessels. COMPARISON: October 18, 1917 FINDINGS: The right iliac fossa renal transplant is normal in s ize and echogenicity. Right kidney measures 10.9 x 4.3 x 4.8 c m with cortical length of 1 m. Trace pelviectasis. Arcuate/segmental acceleration times are within normal limits. Transplant renal artery is patent. Veloc ities as below: Iliac artery: 99 cm/s Anastomosis: 106.8 cm/s Main renal artery: 62.3 cm/s Renal vein is patent. The urinary bladder is distended. IMPRESSION: Normal renal transplant ultrasound. [id number] Procedure Note Interface, Radiology Results Incoming - 11/24/2019 2:37 PM CDT EXAMINATION: US RENAL CLINICAL HISTORY: transplanted kidney TECHNIQUE: Sonographic images of the aristides al transplant were obtained as well as grayscale, color Doppler, and waveform analysis of the renal transplant vessels. COMPARISON: October 18, 1917 FINDINGS: The right iliac fossa renal transplant is normal in size and echogenicity. Right kidney measures 10.9 x 4.3 x 4.8 cm with cortical length of 1 m. Trace pelviectasis. Arcuate/segmental acceleration times are within normal limits. Transplant renal artery is patent. Veloc ities as below: Iliac artery: 99 cm/s Anastomosis: 106.8 cm/s Main renal artery: 62.3 cm/s Renal vein is patent. The urinary bladder is distended. IMPRESSION: Normal renal transplant ultrasound. [id number] Performing Organization Address [facility] Phon e Number [facility] [address] [place] [address] XR Abdomen 1 Vw Portable (11/23/2019 8:36 PM CDT) Specimen Narrative Performed At EXAMINATION: XR ABDOMEN 1 VW PORTABLE [facility] CLINICAL HISTORY: Abd pain unspecifi ed COMPARISON: 05/01/2015 IMPRESSION: 1.Moderate retained stool mainly in the transverse col on and right colon. There is paucity of bowel gas at the rectum. No significant small bowel dilatation noted. [facility] Procedure Note Hm Interface, Radiology Results Incoming - 11/23/2019 8:56 PM CDT EXAMINATION: XR ABDOMEN 1 VW PORTABLE CLINICAL HISTORY: Abd pain unspecified COMPARISON: 05/01/2015 IMPRESSION: 1.Moderate retained stool mainly in the transverse colon and right colon. There is paucity of bowel gas at the rectum. No significant small bowel dilatation noted. [facility]AC[facility] Performing Organization Address [facility] Phon e Number [facility] [address] [place] [address] Blood culture, aerobic & anaerobic (11/23/2019 6:20 PM CDT)Only the most recent of2 resultswithin the time period is included. Blood culture No growth after 5 days of incubation. THAI ROJAS isolate Comment: HOSPITAL Specimen Information Specimen Source: Blood Specimen Site: Hand Right Specimen Blood Performing Organization Address [facility] Phon e Number [facility] DEPARTMENT OF PATHOLOGY AND [address] [place], [place] [phone] GENOMIC MEDICINE [address] [address] Smear review (11/23/2019 6:05 PM CDT) Pathologist Sig nature Platelet slide review Rex adequate [facility] Elliptocytes Occasional [facility] Specimen Performing Organization Address City/[facility]/ZIP [facility] Phon e Number [facility] DEPARTMENT OF PATHOLOGY AND [phone] [place] [address] Prothrombin time with INR (11/23/2019 6:05 PM CDT) Prothrombin time 14.1 11.5 - 14.5 [facility] INR 1.1 [facility] Comment: [facility] International Normalized Ratio (INR) is a [facility] monitoring tool for patients who are stable on oral anticoagulant therapy. An INR of 2.0-3.0 is suggested for deep vein thrombosis/pulmonary embolism. Specimen Blood Performing Organization Address City/[facility] Phon e Number [facility] DEPARTMENT OF PATHOLOGY AND [phone] [place] [address] B natriuretic peptide (11/23/2019 6:05 PM CDT) Pathologist Sig [facility] BNP 479 (H) 0 - 100 pg/mL [facility] Specimen Blood Performing Organization Address City/[facility]/ZIP [facility] Phon e Number [facility] DEPARTMENT OF PATHOLOGY AND [address] [place] [address] [address] [address] Lactic acid level (11/23/2019 6:05 PM CDT) Pathologist Sig [facility] Lactic acid 1.0 0.5 - 2.2 mmol/L [facility] Specimen Blood Performing Organization Address City/[facility]/ZIP [facility] Phon e Number [facility] DEPARTMENT OF PATHOLOGY AND [address] [address] [place] [address] EXTRA SERUM SPECIMEN (09/03/2019 8:23 AM MANUFACTURING TEACHER) Pathologist Sig nature EXTRA SERUM SPECIMEN [facility] (Always message) [facility] Comment: AN EXTRA SPECIMEN WAS RECEIVED WITH NO TEST REQUESTED. THE SPECIMEN WILL BE MAINTAINED IN STORAGE IN CASE ADDITIONAL TESTING IS NEEDED. PLEASE CALL THE CLIENT SERVICE DEPARTMENT FOR FURTHER ASSISTANCE. Specimen Resulting Agency Comment Performing Organization Information: Site ID: IF Name: [facility] Address: [address] [place] [address] Director: Krupa Hayes Performing Organization Address City/State/ZIP Code Phon e Number [facility] Fructosamine (09/03/2019 8:23 AM MANUFACTURING TEACHER) Pathologist Sig nature Fructosamine 430 (H) 205 - 285 umol/L [facility] Specimen Blood Resulting Agency Comment Performing Organization Information: Site ID: [id number] Name: [facility] [facility], Address: [address] [place] [phone] Director: Anne Ruelas MD,PhD,MB A Performing Organization Address City/[facility] Phon e Number [facility] [id number] [place] [address] [facility] [id number] after 07/27/2019 Insurance Payer Benefit Plan / Subscriber ID Effective Dates Phone Addre ss Type Group [facility] MEDICARE [facility] DUAL COMPLETE [id number] 2020-Present HMO [facility] MEDICAID MEDICAID [id number] 2011-Present Med icaid ([place]) [place] [address] Advance Directives For more information, please contact: [phone] Type Date Recorded Patient Marketing Services Specialist Explanati on Advance Directives, 08/22/2009 1:48 PM Aug 22 10 Living Will and 19:48:09:274 GMT Medical Power of Fountain Worker Advance Directives, 02/23/2018 12:58 AM Living Will and Medical Power of Fountain Worker Code Status Date Activated Date Inactivated Comments Full Code 12/30/2017 12:19 AM 12/31/2017 7:26 PM Code Status decision reached by: Patient Full Code 10/26/2017 7:42 PM 10/29/2017 5:42 PM Code Status decision reached by: Patient
--- OUTSIDE RECORDS SUMMARY | 2020-07-27 12:03 | XMS REPORT ---
:1955 Author Organization [facility] Address [address] Grewal, [address] [place] [address] Care Team Providers Name Role Phone Lexis Long Unavailable [phone] PROBLEMS Type Condition ICD9-CM [id number] Onset Condition SNOMED Code Notes Code Code Dates Status Problem Type 2 diabetes E11.29 Active 32870356 mellitus with other diabetic kidney complication Problem custodial current Z79.4 Active 484854230 use of insulin Problem Dyslipidemia E78.5 Active 180431940 Problem Age related M81.0 Active 969947009 osteoporosis, unspecified pathological fracture presence Problem Gastroesophageal K21.9 Active 637107803 reflux disease, esophagitis presence not specified Problem Essential I10 Active 87770552 hypertension Problem Renal transplant Z94.0 Active 339069802 recipient Problem Environmental Z91.09 Active 669140818 allergies Problem Type 2 diabetes E11.40 Active 01934457 mellitus with diabetic neuropathy, unspecified ALLERGIES No Known Allergies ENCOUNTERS from 1955 to 2020-05-26 Encounter Location Date Provider Diagnosis [address] [place] May, Lexis Long Typ e 2 diabetes Family Medicine [address], [facility] [place] [address] diabetic kidne y complication E1 1.29 ; Acute bronchiti s, unspecified org anism J20.9 ; Essenti al hypertension I1 0 ; Dyslipidemia E7 8.5 ; Type 2 diabetes mellitus with d iabetic neuropathy, uns pecified E11.40 ; Renal transplant reci pient Z94.0 ; Acute a llergic rhinitis J30.9 ; Screening for m alignant neoplasm of karlene ast Z12.39 and custodial current use of insulin Z79.4 IMMUNIZATIONS No Information SOCIAL HISTORY Tobacco Use: Social History Observation Description Date Details (start date - stop date) Never Smoker Sex Assigned At : Social History Observation Description Sex Assigned At Unknown Alcohol Screen Question Answer Notes Did you have a drink containing alcohol in the past year? No Points 0 Interpretation Negative Tobacco Use/Smoking Question Answer Notes Are you a never smoker REASON FOR REFERRAL No Information VITAL SIGNS No information MEDICATIONS Medication SIG (Take, Route, Start Date End Date Status Frequency, Duration) Insulin NPH (Human) as directed Active (Isophane) 100 UNIT/ML Subcutaneous Prograf Not-Taking ProAir HFA 108 (90 Base) 1 puff as needed Active MCG/ACT Inhalation every 4 hrs Calcitriol 0.5 MCG Orally Active Coreg 12.5 MG 1 tablet with food Active Orally Twice a day Senokot S 8.6-50 MG 1 tablet in the evening Active as needed Orally Once a day for 30 day(s) Norvasc Not-Taking Lactulose Not-Taking Magnesium Chloride 64 MG 1 tablet Orally Twice a Active day for 30 day(s) Doxycycline Hyclate 100 1 capsule Orally twice Active MG a day for 7 day(s) Simvastatin 20 MG 1 tablet in the evening Active Orally Once a day NovoLog Flexpen 100 as directed Active UNIT/ML Subcutaneous CellCept Not-Taking Omeprazole 40 MG 1 capsule 30 minutes Act arturo before morning meal Orally Once a day Albuterol Sulfate HFA 108 2 puffs Inhalation Apr, Active (90 Base) MCG/ACT every 4-6 hrs prn for 10 days Cetirizine HCl 10 MG 1 tablet Orally Once a Active day for 90 day(s) Cetirizine HCl 10 MG TAKE 1 TABLET BY MOUTH Active EVERY DAY Flonase 50 MCG/ACT 2 spray in each nostril Active Nasally Once a day for 30 day(s) Prolia 60 MG/ML as directed Active Subcutaneous Prilosec Active Mycophenolate Mofetil 500 as directed Orally Active MG Twice a day Clonidine HCl 0.1 MG 1 tablet Orally Once a Active day Tums Active PredniSONE 5 MG 1 tablet Orally Once a Ac tive day Amlodipine Besylate 10 MG 1 tablet Orally Once a Active day Tacrolimus 1 MG 2 tablets Orally Twice Ac tive a day Benzonatate 100 MG 1 capsule as needed May, Jun, Ac tive Orally two times a day prn cough for 30 days Humalog Not-Taking Catapres Not-Taking Senna Not-Taking Gabapentin 100 MG 1 capsule Orally Once a Active day MiraLax - as directed Orally Active Zocor Not-Taking megace Not-Taking Tradjenta Not-Taking Tylenol # 3 Not-Taking Azithromycin 250 MG 2 tablets on the first Active day, then 1 tablet daily for 4 days Orally Once a day for 5 day(s) PROCEDURES No Information RESULTS No Results REASON FOR VISIT 3 month follow up , DM2, htn, hld, gerd, need order for mammogram MEDICAL (GENERAL) HISTORY Type Description Date Medical History custodial current use of insulin Medical History Type 2 diabetes mellitus with other diab etic kidney complication Medical History Essential hypertension Medical History Dyslipidemia Medical History Environmental allergies Medical History Renal transplant recipient Surgical History thyroidectomy Surgical History dialysis shunt Surgical History C section Surgical History surgery-foot Surgical History Transplant Goals Section No Information Health Concerns No Information MEDICAL EQUIPMENT No Information MENTAL STATUS No Information FUNCTIONAL STATUS No Information ASSESSMENTS Encounter Date Diagnosis Notes May, Type 2 diabetes mellitus with diabetic n europathy, unspecified (ICD-10 - E11.40) May, Dyslipidemia (ICD-10 - E78.5) May, Acute allergic rhinitis (ICD-10 - J30.9) May, Type 2 diabetes mellitus with other diab etic kidney complication (ICD-10 - E11.29) May, Renal transplant recipient (ICD-10 - Z94 .0) May, Essential hypertension (ICD-10 - I10) May, Acute bronchitis, unspecified organism ( ICD-10 - J20.9) May, custodial current use of insulin (ICD-10 - Z79.4) May, Screening for malignant neoplasm of [address] (ICD-10 - Z12.39) PLAN OF TREATMENT Medication Medication Name Sig Start Date Stop Date Benzonatate 100 MG 1 capsule as needed Orally two times a MayJun, day prn cough for 30 days Azithromycin 250 MG 2 tablets on the first day, then 1 tablet daily for 4 days Orally Once a day for 5 day(s) Flonase 50 MCG/ACT 2 spray in each nostril Nasally Once a day for 30 day(s) Cetirizine HCl 10 MG 1 tablet Orally Once a day for 90 day(s) Treatment Notes Assessment Notes Clinical Notes Type 2 diabetes mellitus with low carb 1800 ADA diet. Avoid sodas, other diabetic kidney juices and remember portion control. complication Take your medication as prescribed. Monitor your blood sugar at home as directed and keep a log to bring back with you to your next visit for review. Schedule your annual diabetic eye exam with your eye doctor to screen for diabetic retinopathy. Check your feet daily to make sure you have no open wounds. Acute bronchitis, unspecified Take otc mucinex to help loose n an organism chest congestion and take with plenty of water. Use cool mist vaporizer/inhaleras directed.if no improvement in cough, sputum color turns green or thicker no improvement, developd shortness of breath or fever call clinic or go toER. Essential hypertension -- Maintian a low salt DASH diet, exercise, weight loss and decrease stress recommended. Keep BP log and will review next visit. If blood pressure consistently above 140/90 return to clinic for adjustment of meds. Try to quit smoking if you currently smoke. Decrease caffeine intake if possible.- - advised to avoid phenylephrine and pseudoephedrine in otc sinus/cold meds containing these decongestants which work by vasoconstricting blood vessels to help decrease congestion however may cause your BP to rise.-- If you have a cold may take Coricidin brand of cold medicines safe for high blood pressure patients. Dyslipidemia low fat diet, decrease fast food and fried foods. Increase fruit and vegetable intake.exercise as tolerated 30minutes per day at least 3 days a week. May take fish oil 1000mg twice daily to help increase good cholesterol (HDL). Type 2 diabetes mellitus with low carb 1800 ADA diet. Avoid sodas, diabetic neuropathy, unspecified juices and remember portion control. Take your medication as prescribed. Monitor your blood sugar at home as directed and keep a log to bring back with you to your next visit for review. Schedule your annual diabetic eye exam with your eye doctor to screen for diabetic retinopathy. Check your feet daily to make sure you have no open wounds. Renal transplant recipient cont f/u with nephrology/ and prograf. Acute allergic rhinitis Allergies- avoid triggers. Use zyrte c once daily in AM to help control watery itchy eyes and runny nose. Use Flonase nasal spray two sprays once a day to help decrease inflammation and decrease nasal drainage/post nasal drip. Use saline nasal mist or irrigation as directed. Treatment Notes Test Name Order Date SCREENING MAMMO W CAD 2020-05-26 Next Appt Details 3M &1 week NV High dose flu shot ( renal Trans pt) Reason: Insurance Providers Payer Name Payer Payer Insured Patient Coverage Coverage End Address Phone Name Relationship to Start Date Gabino e Insured [facility] [phone] Deedee Mishra [facility] [id number] [place] [address]
--- OUTSIDE RECORDS SUMMARY | 2020-07-27 12:03 | XMS REPORT ---
:1955 Author Organization [facility] Address [address]rew[address], [address] [place] [address] Care Team Providers Name Role Phone Ethan Lexis Unavailable [phone] PROBLEMS Type Condition ICD9-CM TNS18-[id number] Onset Condition SNOMED Code Notes Code Code Dates Status Problem long term acute care registered nurse current Z79.4 Active 315293437 use of insulin Problem Dyslipidemia E78.5 Active 357338760 Problem Essential I10 Active 15680187 hypertension Problem Gastroesophageal K21.9 Active 312025581 reflux disease, esophagitis presence not specified Problem Type 2 diabetes E11.29 Active 26300945 mellitus with other diabetic kidney complication Problem Encounter for Z23 Active 369399621 immunization Problem Environmental Z91.09 Active 063177789 allergies Problem Renal transplant Z94.0 Active 699152561 recipient Problem Type 2 diabetes E11.40 Active 37587133 mellitus with diabetic neuropathy, unspecified Problem Age related M81.0 Active 285932112 osteoporosis, unspecified pathological fracture presence ALLERGIES No Known Allergies ENCOUNTERS from 1955 to 2020-06-06 Encounter [facility] Date [facility] [address] [place] Jun, Lexis [facility] [address], [place] [id number] IMMUNIZATIONS Vaccine Route Administration Date Status FluAD IM Intramuscular Jun 02, 2020 Administered SOCIAL HISTORY Tobacco Use: Social History Observation [...] Start Date End Date Status Frequency, Duration) NovoLog Flexpen 100 as directed Active UNIT/ML Subcutaneous Lactulose Not-Taking Calcitriol 0.5 MCG Orally Active Prolia 60 MG/ML as directed Active Subcutaneous CellCept Not-Taking megace Not-Taking ProAir HFA 108 (90 Base) 1 puff as needed Active MCG/ACT Inhalation every 4 hrs Azithromycin 250 MG 2 tablets on the first Active day, then 1 tablet daily for 4 days Orally Once a day for 5 day(s) Tums Active Flonase 50 MCG/ACT 2 spray in each nostril Active Nasally Once a day for 30 day(s) Senokot S 8.6-50 MG 1 tablet in the evening Active as needed Orally Once a day for 30 day(s) Insulin NPH (Human) as directed Active (Isophane) 100 UNIT/ML Subcutaneous Catapres Not-Taking Norvasc Not-Taking Cetirizine HCl 10 MG 1 tablet Orally Once a Active day for 90 day(s) Benzonatate 100 MG 1 capsule as needed May, Jun, Ac tive Orally two times a day prn cough for 30 days Gabapentin 100 MG 1 capsule Orally Once a Active day Tylenol # 3 Not-Taking Doxycycline Hyclate 100 1 capsule Orally twice Active MG a day for 7 day(s) Prograf Not-Taking Albuterol Sulfate HFA 108 2 puffs Inhalation Apr, Active (90 Base) MCG/ACT every 4-6 hrs prn for 10 days Tacrolimus 1 MG 2 tablets Orally Twice Ac tive a day Humalog Not-Taking Magnesium Chloride 64 MG 1 tablet Orally Twice a Active day for 30 day(s) Mycophenolate Mofetil 500 as directed Orally Active MG Twice a day Simvastatin 20 MG 1 tablet in the evening Active Orally Once a day Omeprazole 40 MG 1 capsule 30 minutes Act arturo before morning meal Orally Once a day Cetirizine HCl 10 MG TAKE 1 TABLET BY MOUTH Active EVERY DAY Tradjenta Not-Taking MiraLax - as directed Orally Active Coreg 12.5 MG 1 tablet with food Active Orally Twice a day PredniSONE 5 MG 1 tablet Orally Once a Ac tive day Prilosec Active Zocor Not-Taking Clonidine HCl 0.1 MG 1 tablet Orally Once a Active day Amlodipine Besylate 10 MG 1 tablet Orally Once a Active day Senna Not-Taking PROCEDURES No Information RESULTS No Results REASON FOR VISIT Flu shot. Requesting stronger dose ask Dr. Long?. In office. MEDICAL (GENERAL) HISTORY Type Description Date Medical History intermediate current use of insulin Medical History Type [...] No Information ASSESSMENTS Encounter Date Diagnosis Notes Jun, Encounter for immunization (ICD-10 - Z23 ) PLAN OF TREATMENT No Information Insurance Providers Payer Name Payer Payer Insured Patient Coverage Coverage End Address Phone Name Relationship to Start Date Gabino e Insured [facility] [phone] Deedee Mishra [facility] [address] [place] [address]
--- OUTSIDE RECORDS SUMMARY | 2020-07-27 12:03 | XMS REPORT | Continuity of Care Document ---
:1955 Author Organization [facility] t Address [facility] [place] [address] Care Team Providers Name Role Phone Regan Fernandez MD Primary Care Physician Artur SORIANO Attending Clinician Unavailable RENETTA Attending Clinician Unavailable Ezequiel GUILLORY Attending Clinician Unavailable Velasquez Bailey MD Attending Clinician Darius GUILLORY Attending Clinician Unavailable Sonu Stark MD Attending Clinician Minerva Attending Clinician Unavailable Stanley Attending Clinician Unavailable Oralia PILLAI Attending Clinician Asimqwimtate RODRIGUEZ Attending Clinician Sharron GUILLORY Attending Clinician Unavailable Doc Serrano MA Attending Clinician Unavailable Clementine GUILLORY Attending Clinician Unavailable Terrence PILLAI Attending Clinician RUTH ANN PATEL Attending Clinician Unavailable ORALIA Admitting Clinician Unavailable RUTH ANN PATEL Admitting Clinician Unavailable Payers Payer Name Policy Type Policy Effective Date Expiration Date Sour ce Number UHC MEDICAREUHC [id number] 2020 [place] DUAL COMPLETE 00:00:00 Sikh[place] [id number] [facility] [id number] 2011 [place] [id number] 2011- 00:00:[address] PresentMedicaid Problems Condition Condition Condition Status Onset Resolution Last Treating Co mments Source Name Details Category Date Date Treatment Clinician Date Open wound Open wound Disease Active 2019-08 [place] of left of left 0-20 Methodi foot foot 00:00: st 00 renal renal Disease Active 2019-08 [place] hyperparat hyperparat 0-20 Me thodi hyroidism hyroidism 00:00: st s/p s/p 00 subtotal subtotal parathyroi parathyroi dectomy dectomy 03/19,with 03/19,with postop postop hypocalcem hypocalcem ia ia Frequency Frequency Disease Active [facility] of of 4-24 Methodi urination urination 00:00: st 00 UTI UTI Disease Active [place] (urinary (urinary 4-24 Method i tract tract 00:00: st infection) infection) 00 Other Other Disease Active [place] constipati constipati 8- Me thodi on on 00:00: st 00 Immunosupp Immunosupp Disease Active H roxy ressive ressive 4- Methodi management management 00:00: st encounter encounter 00 following following 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 4- Me thodi hyroidism hyroidism 00:00: st 00 Preop Preop Disease Active [place] examinatio examinatio 4-01 Me thodi n n 00:00: st 00 Closed Closed Disease Active [place] displaced displaced 7-26 Meth sintia fracture fracture 00:00: st of of 00 tuberosity tuberosity of left of left calcaneus calcaneus Dehydratio Dehydratio Disease Active H roxy n n 5-31 Methodi 00:00: st 00 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 00:00: st of right of right 00 eye, eye, moderate moderate stage stage Pseudophak Pseudophak Disease Active H roxy ia ia 5- Methodi 00:00: st 00 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 00:00: st mellitus mellitus 00 with with nephropath nephropath y y Steroid-in 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 Active H roxy duced duced 3-29 Methodi osteoporos osteoporos 00:00: st is is 00 Pyelonephr Pyelonephr Disease Active H roxy itis itis 3-28 Methodi 00:00: st 00 Abnormal Abnormal Disease Active 2016-08 [place] thyroid thyroid 0-10 Methodi stimulatin stimulatin 00:00: st g hormone g hormone 00 (TSH) (TSH) level level Renal Renal Disease Active [facility] mass, mass, 4-25 [facility] right right 00:[facility] Medical 00 Center 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 00:00: st retinopath retinopath 00 y y associated associated with type with 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 Essential Essential Disease Active [facility] hypertensi hypertensi 1-24 Me thodi on on 00:00: st 00 Mixed Mixed Disease Active [place] hyperlipid hyperlipid 1-24 Me thodi emia emia 00:00: st 00 Non morbid Non morbid Disease Active H roxy obesity obesity 1-24 Methodi due to due to 00:00: st excess excess 00 calories calories Osteopenia Osteopenia Disease Active H roxy 1-24 Methodi 00:00: st 00 Kidney Kidney Disease Active [place] transplant transplant 1-24 Me thodi recipient recipient 00:00: st 00 Vitamin D Vitamin D Disease Active [facility] deficiency deficiency 1-24 Me thodi 00:00: st 00 Diarrhea Diarrhea Disease Active [place] 08-07 Methodi 00:00: st 00 Vitamin D Vitamin D Disease Active [facility] deficiency deficiency 9-13 Me thodi 00:00: st 00 Nonspecifi Nonspecifi Disease Active Brandon ramsey c abnormal c abnormal 9-13 Me thodi results of results of 00:00: st basal basal 00 metabolism metabolism function function study study Obesity Obesity Disease Active [place] due to due to 04-13 Methodi excess excess 00:00: st calories calories 00 without without serious serious comorbidit comorbidit y y Essential Essential Disease Active [facility] (primary) (primary) 9-13 Meth sintia hypertensi hypertensi 00:00: st on on 00 Diabetic Diabetic Disease Active [place] neuropathy neuropathy 04-13 Me thodi associated associated 00:00: st with type with type 00 2 diabetes 2 diabetes mellitus mellitus Encounter Encounter Disease Active [place] [place] for for 04-13 Methodi aftercare aftercare 00:00: st following following 00 kidney kidney transplant transplant Neovascula Neovascula Disease Active [place] r glaucoma r glaucoma 04-13 Me thodi of left of left 00:00: st eye, eye, 00 severe severe stage stage Distal Distal Disease Active [facility] radius radius 6-05 [facility] - fracture, fracture, 00:00: Medi michael left left 00 Center Allergies, Adverse Reactions, Alerts This patient has no known allergies or adverse reactions. Family History Family Member Diagnosis Comments Start Date Stop Date Source Natural father Diabetes [facility] Social History Social Habit Start Date Stop Date Quantity Comments Source Sex Assigned At [facility] ethodist Exposure to Not sure [place] Metho dist SARS-CoV-2 (event) Tobacco use and 2019-03-19 2019-03-19 Never used [facility] ethodist exposure 00:00:00 00:00:00 Alcohol intake 2019-03-19 2019-03-19 Current [facility] thodist 00:00:00 00:00:00 non-drinker of alcohol (finding) Smoking Status Start Date Stop Date Source Never smoker [place] Methodis t Medications Ordered Filled Start Stop Current Ordering Indication Dosage Frequency Signature Comments Components Source Medication Medication Date Date Medication? Clinician (SIG) Name Name tacrolimus 2019-08- Yes prevention 1.5mg Q.5D Take 3 [place] (PROGRAF) 09-08 of kidney capsules Methodi 0.5 MG 00:00: 23:59 transplant (1.5 mg s t capsule 00 :00 rejection total) by mouth 2 (two) times a day .prevent kidney transplant rejection. DOSE CHANGE! tacrolimus 2019-08- No prevention 1.5mg Q.5D Take 3 [place] (PROGRAF) 09-08 of kidney capsules Methodi 0.5 MG 00:00: 00:00 transplant (1.5 mg s t capsule 00 :00 rejection total) by mouth 2 (two) times a day .prevent kidney transplant rejection. DOSE CHANGE! insulin NPH 2019-08 Yes 20U QD Inject 20 [place] isoph U-100 1-05 Units Methodi human 00:00: under the st (HumuLIN N 00 skin daily NPH Insulin before KwikPen) breakfast. 100 unit/mL (3 mL) blood sugar 2019-08 Yes DX E11.65 [place] diagnostic 1-05 Patient is Met hodi strips 00:00: testing st (glucose 00 QID. blood) Please strip test match to strips machine. Insupen 31 2019-08 Yes Use 5 [place] gauge x 1-02 veces al Methodi 5/16" 00:00: venkatesh (Use 5 st needle 00 times daily) denosumab 2019-08 2020- No Steroid-ind 60mg [place] (PROLIA) 0-20 10-20 uced Methodi syringe 60 17:30: 17:[address] mg 00 :00 s guaiFENesin 2019-08 Yes 600mg Q12H Take 600 [place] (MUCINEX) 0-20 mg by Methodi 600 mg 13:37: mouth st tablet 10 every 12 extended (twelve) release hours. 12hr insulin 2019-08 Yes 4U QD Inject 4 [place] lispro 0-20 Units Methodi (HumaLOG) 13:37: under the st 100 unit/mL 10 skin injection Medrol Dose Pack Scheduling ONLY. 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 Please match to machine. Benzonatate Benzonatate 2019- No Na Long [address] [facility] 03-14 as needed [facility] - 00[facility] 00 [facility] amLODIPine 2020- No 10mg QD Take 1 [place] (NORVASC) 7- 07-21 tablet (10 Met hodi 10 mg 00:00: 23:59 mg total) st tablet 00 :00 by mouth daily. calcitrioL 2020- No hypocalcemi 1ug QD Take 2 [place] (ROCALTROL) 02-18 a capsules Met hodi 0.5 MCG 00:00: 23:59 ([address] capsule 00 :00 total) by mouth daily .low amount of calcium in the blood. for auth issues calcium 2019-2020- No 500mg Q.25D Chew 1 [place] carbonate 02-18 tablet Methodi (TUMS) 200 00:00: 23:59 ([address] mg calcium 00 :00 total) 4 (500 mg) (four) chewable times a tablet day. carvediloL 2020- No 12.5mg Q.5D Take 1 [place] (COREG) 02-18 tablet Methodi 12.5 MG 00:00: 23:59 (12.[address] tablet 00 :00 total) by mouth 2 (two) times a day with meals. clonIDINE 2020- No .1mg Q.[id number] Take 1 [place] (Catapres) 02-18 [id number] tablet Methodi 0.1 MG 00:00: 23:59 3D (0.[address] tablet 00 :00 total) by mouth 3 (three) times a day. magnesium 2020- No 64mg QD Take 1 [place] chloride 64 02-18 tablet (64 M ethodi mg 00:00: 23:59 mg total) st tablet,fermin 00 :00 by mouth yed release daily. (DR/EC) tablet omeprazole No 40mg QD Take 1 [place] (PriLOSEC) 02-12 capsule Metho di 40 MG 00:00: 23:59 ([address] capsule 00 :00 total) by mouth daily. calcium 2019- No 500mg Q.25D Chew 1 [place] carbonate 01-21 tablet Methodi (TUMS) 200 00:00: 00:00 ([address] mg calcium 00 :00 total) 4 (500 mg) (four) chewable times a tablet day. calcitrioL 2020- No hypocalcemi 1ug QD Take 2 [place] (ROCALTROL) 6-23 07-21 a capsules Met hodi 0.5 MCG 00:00: 00:00 ([address] capsule 00 :00 total) by mouth daily .low amount of calcium in the blood. Cetirizine Cetirizine 2019- Yes Na Long [address] HCl HCl 6-22 Orally [facility] - 00:00: Once a day Memoria 00 l [facility] ent Clinics insulin 2019-0 2020- No 3U QD Inject 3 [place] lispro 11-25 Units Methodi (HumaLOG) 12:04: 00:[address] 100 unit/mL 18 :00 skin injection daily. Take with breakfast insulin NPH 2019-2019- No 20U QD Inject 20 [place] (HumuLIN-N) 11-25 Units Method i 100 unit/mL 12:04: 00:[address] injection 18 :00 skin daily before breakfast. insulin 2019-0 Yes 3U Q.[id number] Inject 3 [place] lispro 11-25 [id number] Units Method i (HumaLOG) 00:00: 3D under the st 100 unit/mL 00 skin 3 injection (three) times a day before meals. On sliding scale insulin NPH Yes 20 units [place] (HumuLIN-N) 11-25 in AM Methodi 100 unit/mL 00:00: st injection 00 ciprofloxac 2019-2019- No 500mg Q.5D Take 1 [place] in (Cipro) 11-24 tablet Method i 500 MG 00:00: 23:59 ([address] tablet 00 :00 total) by mouth 2 (two) times a day for 5 days. fluticasone 2019- No 2{spray QD 2 sprays [place] propionate 11-22 } by Each Metho di (FLONASE) 15:23: 00:00 Nare route s t 50 28 :00 daily. mcg/actuati on nasal spray ciprofloxac 2019- No 500mg QD Take 1 [place] in (Cipro) 11-18 tablet Method i 500 MG 00:00: 23:59 ([address] tablet 00 :00 total) by mouth every morning for 7 days. blood-gluco 2019-0 Yes [facility]11.[facility] 4-07 Patient is Metho di misc 00:00: testing st 00 QID. Please match machine to insurance. blood sugar 2019- No DX E11.65 [place] diagnostic 11-05 Patient is Me thodi strips 00:00: 00:[address] (glucose 00 :00 QID. blood) Please strip test match to strips machine. lancets 33 2019- No DX E11.65 [place] gauge misc 11-05 Patient is Me thodi 00:00: 00:[address] 00 :00 QID. Please match to machine. doxycycline 2019- No 100mg Q.5D Take 1 [place] (ADOXA) 100 10-30 04-15 tablet Metho di MG tablet 00:00: 23:59 ([address] 00 :00 total) by mouth 2 (two) times a day for 14 days. Para la infeccion de la herida del pie simvastatin No 20mg QD Take 1 [facility] (ZOCOR) 20 09-21-20 tablet (20 Me thodi MG tablet 00:00: 23:59 mg total) st 00 :00 by mouth nightly. mycophenola No 500mg Q.5D Take 1 [place] te 09-21 tablet Methodi (CELLCEPT) 00:00: 23:59 ([address] 500 mg 00 :00 total) by tablet mouth 2 (two) times a day. RUN UNDER PART B; Maki RN w any refill issues tacrolimus 2019- No prevention 2mg Q.5D Take 2 [place] (PROGRAF) 1 09-21 of kidney capsules Methodi MG capsule 00:00: 00:00 transplant ([address] 00 :00 rejection total) by mouth 2 (two) times a day .prevent kidney transplant rejection. DOSE CHANGE: 2mg twice a day insulin 2019- No 3U Q.[id number] Inject 3-4 [place] ASPART 09-20 [id number] Units Metho di (NovoLOG 14:26: 00:[address] Flexpen 59 :00 skin 3 U-100 (three) Insulin) times a 100 unit/mL day with (3 mL) meals. insulin pen insulin Yes inyecte 8 [place] ASPART 2-20 unidades Methodi (NovoLOG 00:00: bajo de la st Flexpen 00 piel con U-100 desayuno, Insulin) 12 100 unit/mL unidades (3 mL) antes del insulin pen almuerzo y la replenishment analyst y mas unidades heidy escala movil. linaGLIPtin No 5mg QD Take 1 [facility] (TRADJENTA) 09-14-24 tablet (5 Me thodi 5 mg tablet 00:00: 00:00 mg total) st 00 :00 by mouth daily. albuterol No 180ug Q4H Inhale 180 [place] sulfate 90 09-12- mcg every Met hodi mcg/actuati 00:00: 23:59 4 (four) s t on aerosol 00 :00 hours. [facility] [phone] breath 91 for activated auth - Maki SORIANO azithromyci 2019- No Take 2 [facility] n 09-11 tablets Methodi (ZITHROMAX 00:00: 23:59 (500 mg) st Z-CAMERON) 250 00 :00 on Day 1, MG tablet followed by 1 tablet (250 mg) once daily on Days 2 through 5. albuterol No acute .63mg Q.20171833 Take 3 mL [place] (ACCUNEB) 09-1112 asthma [id number] (0.63 mg Methodi 0.63 mg/3 00:00: 00:00 attack 3D total) by st mL 00 :00 nebulizati nebulizer on 3 solution (three) times a day as needed for wheezing .asthma attack. pen needle, 2019- No 4{devic QD 4 Devices [place] diabetic 31 09-03 e} daily. Metho di gauge x 00:00: 00:00 st 5/16" 00 :00 needle liraglutide 2019- No 1.8mg QD Inject 0.3 [place] (VICTOZA 09-03 04-24 mL (1.8 mg Meth sintia 3-CAMERON) 0.6 00:00: 00:00 total) st mg/0.1 mL 00 :00 under the (18 mg/3 skin daily mL) pen with injector breakfast. megestrol 2020-0 2020- No 40mg QD Take 1 [place] (MEGACE) 40 08-31 tablet (40 M ethodi MG tablet 00:00: 00:00 mg total) st 00 :00 by mouth daily .anorexia. predniSONE 2018-08 Yes prevention 5mg QD Take 1 [place] (DELTASONE) 09-26 of kidney tablet (5 Methodi 5 mg tablet 00:00: transplant mg total) st 00 rejection by mouth daily .prevent kidney transplant rejection. mycophenola 2018-08 2020- No 500mg Q.5D Take 1 Jaswant harris te 09-26 tablet Methodi (CELLCEPT) 00:00: 00:00 ([address] 500 mg 00 :00 total) by tablet mouth 2 (two) times a day. RUN UNDER PART B; Maki SORIANO w any refill issues amLODIPine 2018-08- No 10mg QD Take 1 [place] (NORVASC) 02-18 tablet (10 Met hodi 10 mg 00:00: 00:00 mg total) st tablet 00 :00 by mouth daily. Albuterol Albuterol Yes Na Long [address] Sulfate HFA Sulfate HFA 9-25 L ukes - 00:00: [facility] 00 [facility] Clinics carvedilol 2020- No 12.5mg Q.5D Take 1 Jaswant harris (COREG) 04-16 tablet Methodi 12.5 MG 00:00: 00:00 (12.[address] tablet 00 :00 total) by mouth 2 (two) times a day with meals. clonIDINE 2020- No .1mg QD Take 1 [place] (CATAPRES) 04-16 tablet Method i 0.1 MG 00:00: 00:00 (0.[address] tablet 00 :00 total) by mouth nightly. magnesium 2020- No 64mg QD Take 1 [place] chloride 64 04-16 tablet (64 M ethodi mg 00:00: 00:00 mg total) st tablet,fermin 00 :00 by mouth yed release daily. (DR/EC) tablet calcium 2020- No 500mg Q.[id number] Chew 1 [place] carbonate 04-16 [id number] tablet M ethodi (TUMS) 200 00:00: 00:00 3D ([address] mg calcium 00 :00 total) 3 (500 mg) (three) chewable times a tablet day. polyethylen 2019- No 17g QD Take 17 g [place] e glycol 04-16 by mouth Method i (MIRALAX) 00:00: 00:[address] 17 gram 00 :00 packet linaGLIPtin 2019- No 5mg QD Take 1 [facility] (TRADJENTA) 04-06- tablet (5 Me thodi 5 mg tablet 00:00: 00:00 mg total) st 00 :00 by mouth daily. calcitriol 2019- No hypocalcemi .5ug QD Take 1 [place] (ROCALTROL) 04-05 a capsule Meth sintia 0.5 MCG 00:00: 00:00 (0.[address] capsule 00 :00 total) by mouth daily .low amount of calcium in the blood. senna 2019- No 1{tbl} QD Take 1 [place] (SENNA) 8.6 02-27 tablet by Me thodi mg tablet 00:00: 00:[address] 00 :00 daily. omeprazole 2019- No 40mg QD Take 1 [place] ton (PriLOSEC) 02-02-15 capsule Metho di 40 MG 00:00: 00:00 ([address] capsule 00 :00 total) by mouth daily. gabapentin Yes 100mg Q.[id number] Take 1 [place] (NEURONTIN) 6-27 [id number] capsule Methodi 100 mg 00:00: 3D ([address] capsule 00 total) by mouth 3 (three) times a day. tacrolimus 2019- No prevention 2mg Q.5D Take 2 [place] (PROGRAF) 1 4-04 -21 of kidney capsules Methodi MG capsule 00:00: 00:00 transplant ([address] 00 :00 rejection total) by mouth 2 (two) times a day. DOSE CHANGE: 2mg twice a day simvastatin 2019- No 20mg QD Take 1 [facility] (ZOCOR) 20 2-21 09-21 tablet (20 Me thodi MG tablet 00:00: 00:00 mg total) st 00 :00 by mouth nightly. insulin NPH 2019- No 10U QD Inject 10 [place] isoph U-100 -28 11-05 Units Method i human 00:00: 00:[address] (HumuLIN N 00 :00 skin daily NPH Insulin before KwikPen) breakfast. 100 unit/mL (3 mL) megestrol 2019- No 40mg QD Take 1 [place] (MEGACE) 40 08-23 tablet (40 M ethodi MG tablet 00:00: 00:00 mg total) st 00 :00 by mouth daily. pen needle, 2017-08 Yes 1{piece Q.2D 1 Piece 5 [place] diabetic 31 2-21 } (five) Method i gauge x 00:00: times a st 08/04" needle 00 day. 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 mycophenola Yes Q.5D Take by [facility] te 4-28 mouth 2 [facility] - (CELLCEPT) 11:41: (two) Medica l 500 mg 24 times Center tablet daily. predniSONE Yes 5mg QD Take [address] (DELTASONE) 4-28 by mouth Luke s - 5 MG tablet 11:41: daily. Medi michael 24 Center amLODIPine Yes 10mg QD Take [address] (NORVASC) 4-28 by mouth [facility] - 10 MG 11:41: daily. Medical tablet 24 Center losartan Yes 50mg QD Take [address] (COZAAR) 50 4-28 by mouth Luke s - MG tablet 11:41: daily. Medica l 24 Center cloNIDine 0 Yes .1mg Q.[id number] Take 0.[address] HCl 4-28 [id number] mg by [facility] - (CATAPRES) 11:41: 3D mouth 3 Medi michael 0.1 MG 24 (three) Center tablet times daily. omeprazole 2017- Yes 40mg QD Take [address] (PRILOSEC) 4-28 by mouth [facility] - 40 MG 11:41: daily. Medical capsule 24 Center simvastatin 2017- Yes 20mg QD Take [address] (ZOCOR) 20 4-28 by mouth [facility] - MG tablet 11:41: nightly. Medi michael 24 Center calcitriol 2017-0 Yes .25ug QD Take 0.[address] (ROCALTROL) 4-28 mcg by [facility] - 0.25 MCG 11:41: mouth Medical capsule 24 daily. Center alendronate 2017- Yes 70mg Take [address] [facility] (FOSAMAX) 4-28 by mouth [facility] - 70 MG 11:41: every 7 Medical tablet 24 days Take Center in the morning with a full glass of water, on an empty stomach, and do not take anything else by mouth or lie down for the next 30 min. . gabapentin 2017- Yes 100mg Q.[id number] Take [address] (NEURONTIN) 4-28 [id number] mg by L ukes - 100 MG 11:41: 3D mouth 3 Medical capsule 24 (three) Center times daily. insulin NPH 2017 Yes 22U Inject [address] 100 unit/mL 4-28 Units [facility] - (3 mL) InPn 11:41: subcutaneo Medical 24 usly every Center morning before breakfast . insulin Yes 8U Inject [address] aspart 4-28 Units [facility] - (NOVOLOG) 11:41: subcutaneo Me dical 100 unit/mL 24 usly 2 Center injection (two) times daily as needed Only gives herself insulin fo BS above 100 - 8 units. insulin NPH 2016- Yes 4U Q.5D Inject [address] 100 unit/mL 4-28 Units [facility] - (3 mL) InPn 11:41: subcutaneo Medical 24 usly 2 Center (two) times daily Every NOON and every NIGHT . PredniSONE PredniSONE Yes Na Long [address] [facility] Prograf Prograf Yes Na Long not [facility] defined [facility] Senna Senna Yes Na Long not [facility] defined [facility] Catapres Catapres Yes Na Long not [facility] defined [facility] Tradjenta Tradjenta Yes Na Long not [facility] defined [facility] Lactulose Lactulose Yes Na Long not [facility] defined [facility] Amlodipine Amlodipine Yes Na Long [address] [facility] Besylate Besylate [facility] Coreg Coreg Yes Na Long [address] [facility] with food [facility] ProAir HFA ProAir HFA Yes Na Long [address] [facility] needed [facility] Simvastatin Simvastatin Yes [place] Long [address] [facility] - evening [facility] CellCept CellCept Yes Na Long not [facility] defined [facility] megace megace Yes Na Long not [facility] defined [facility] Tylenol # 3 Tylenol # 3 Yes Na Long not [facility] defined [facility] MiraLax MiraLax Yes Na Long as [facility] directed [facility] Mycophenola Mycophenola Yes Na Long as [facility] te Mofetil te Mofetil directed [facility] Tums Tums Yes Na Long not [facility] defined [facility] Calcitriol Calcitriol Yes Na Long not [facility] defined [facility] Norvasc Norvasc Yes Na Long not [facility] defined [facility] Tacrolimus Tacrolimus Yes Na Long [address] [facility] Zocor Zocor Yes Na Long not [facility] defined [facility] Insulin NPH Insulin NPH Yes Na Long as [facility] (Human) (Human) directed [facility] - (Isophane) (Isophane) [facility] Prilosec Prilosec Yes Na Long not [facility] defined [facility] Omeprazole Omeprazole Yes Na Long [address] [facility] 30 minutes [facility] - before Memoria morning l meal Outpati ent Clinics Gabapentin Gabapentin Yes Na Long [address] [facility] Prolia Prolia Yes Na Long as [facility] directed [facility] NovoLog NovoLog Yes Na Long as [facility] Flexpen Flexpen directed [facility] Clonidine Clonidine Yes Na Long [address] [facility] HCl HCl [facility] Senokot S Senokot S Yes Na Long [address] [facility] evening as [facility] Magnesium Magnesium Yes Na Long [address] [facility] Chloride Chloride [facility] Doxycycline Doxycycline Yes Na Long [address] [facility] Hyclate Hyclate [facility] Azithromyci Azithromyci Yes Na Long [address] [facility] [address] n n on the [facility] - first day, Memoria then 1 l tablet Outpati daily for ent 4 days Clinics Flonase Flonase Yes Na Long [address] [facility] each [facility] - nostril [facility] l [facility] Humalog Humalog Yes Na Long not [facility] defined [facility] Cetirizine Cetirizine Yes Na Long TAKE [address] [facility] [facility] HCl HCl TABLET BY [facility] - MOUTH Memoria EVERY DAY [facility] Immunizations Ordered Immunization Filled Immunization Date Status Commen ts Source Name Name FLUZONE QUAD PF 2019-06-19 Completed [place] 00:00:00 Sikhism FLUZONE QUAD 2017-05-10 Completed [place] 00:00:00 Sikhism Pneumococcal 2015-10-14 Completed [place] Conjugate 13-Valent 00:00:00 Metho dist Vital Signs Vital Name Observation Time Observation Value Comments Source Systolic blood 2020-05-20 13:36:00 158 mm[Hg] Burton Mcghee pressure Diastolic blood 2020-05-20 13:36:00 75 mm[Hg] Alicia Mcghee pressure Heart rate 2020-05-20 13:36:00 71 /min Los Mcghee Body height 2020-05-20 13:36:00 156.2 cm Los Mcghee Body weight 2020-05-20 13:36:00 54.432 kg Los Mcghee BMI 2020-05-20 13:36:00 22.31 kg/m2 Los Mcghee Oxygen saturation in 2020-05-20 13:36:00 98 /min Los Mcghee Arterial blood by Pulse oximetry Body temperature 2019-11-25 14:48:36 36.56 Deanna Elizabeth Mcghee Respiratory rate 2019-11-25 14:48:36 14 /min Elizabeth Mcghee Procedures Procedure Date / Time Performing Clinician Source Performed URINE CULTURE 2020-07-07 09:45:00 Esa Sears HC COMPLETE BLD COUNT 2020-07-07 09:45:00 Esa Sears W/AUTO DIFF COMPREHENSIVE METABOLIC 2020-07-07 09:45:00 Esa Sears PANEL MAGNESIUM LEVEL 2020-07-07 09:45:00 Esa Sears PHOSPHORUS LEVEL 2020-07-07 09:45:00 Esa Sears URINALYSIS SCREEN AND 2020-07-07 09:45:00 Esa Sears MICROSCOPY, WITH REFLEX TO CULTURE BK VIRUS BY PCR 2020-07-07 09:45:00 Esa Sears PROTEIN, URINE, RANDOM 2020-07-07 09:45:00 Esa Sears CREATININE LEVEL, URINE, 2020-07-07 09:45:00 Marito Sears RANDOM PARATHYROID HORMONE 2020-07-07 09:45:00 Esa Sears IMMUNOGLOBULIN G 2020-07-07 09:45:00 Esa Sears VITAMIN D 25 HYDROXY LEVEL 2020-07-07 09:45:00 Esa Sears [id number] TACROLIMUS LEVEL, 2020-07-07 09:45:00 Esa Sears RANDOM CYTOMEGALOVIRUS BY PCR 2020-07-07 09:45:00 Esa Sears ESTIMATED GFR 2020-07-07 09:45:00 Esa Sears DONOR SPECIFIC ANTIBODY 2020-07-07 09:45:00 Esa Sears CBC WITH PLATELET AND 2020-04-03 09:35:00 Lynn, Onelia Mcghee DIFFERENTIAL AMYLASE LEVEL 2020-04-03 09:35:00 [facility], Onelia Velasquez Mcghee COMPREHENSIVE METABOLIC 2020-04-03 09:35:00 [facility], Onelia Velasquez [place] Sikhism PANEL HEMOGLOBIN A1C 2020-04-03 09:35:00 [facility], Onelia Velasquez [place] Sikhism LIPASE LEVEL 2020-04-03 09:35:00 [facility], Onelia Velasquez [place] Sikhism LIPID PANEL 2020-04-03 09:35:00 [facility], Onelia Velasquez [place] Sikhism MICROALBUMIN / CREATININE 2020-04-03 09:35:00 [facility], Onelia Idris [place] Sikhism URINE RATIO T4, FREE 2020-04-03 09:35:00 [facility], Onelia Velasquez Mcghee THYROID STIMULATING 2020-04-03 09:35:00 [facility], Onelia Velasquez louis Sikhism HORMONE VITAMIN D 25 HYDROXY LEVEL 2020-04-03 09:35:00 [facility], Onelia Esha [place] Sikhism PARATHYROID HORMONE 2020-04-03 09:35:00 [facility], Onelia Velasquez lou[place] Sikhism PHOSPHORUS LEVEL 2020-04-03 09:35:00 [facility], Oneliathomas salgado Sikhism URINE CULTURE 2020-01-15 08:09:00 Esa Sears HC COMPLETE BLD COUNT 2020-01-15 08:09:00 Esa Sears W/AUTO DIFF COMPREHENSIVE METABOLIC 2020-01-15 08:09:00 Esa Sears PANEL MAGNESIUM LEVEL 2020-01-15 08:09:00 Esa Sears PHOSPHORUS LEVEL 2020-01-15 08:09:00 Esa Sears URINALYSIS SCREEN AND 2020-01-15 08:09:00 Esa Sears MICROSCOPY, WITH REFLEX TO CULTURE PROTEIN, URINE, RANDOM 2020-01-15 08:09:00 Esa Sears CREATININE LEVEL, URINE, 2020-01-15 08:09:00 Marito Sears RANDOM PARATHYROID HORMONE 2020-01-15 08:09:00 Esa Sears LIPID PANEL 2020-01-15 08:09:00 Esa Sears HEMOGLOBIN A1C 2020-01-15 08:09:00 Esa Sears CYTOMEGALOVIRUS BY PCR 2020-01-15 08:09:00 Esa Sears VITAMIN D 25 HYDROXY LEVEL 2020-01-15 08:09:00 Esa Sears FK506 TACROLIMUS LEVEL, 2020-01-15 08:09:00 Esa Sears RANDOM ESTIMATED GFR 2020-01-15 08:09:00 Esa Sears DONOR SPECIFIC ANTIBODY 2020-01-15 08:09:00 Esa Sears POC GLUCOSE 2019-11-25 16:08:00 Roldan English Meth odist XR ABDOMEN 2 VW AP W 2019-11-25 13:12:14 Esa Sears UPRIGHT AND/OR DECUBITUS POC GLUCOSE 2019-11-25 11:01:00 TeqwimRoldan ybarra Meth odist POC GLUCOSE 2019-11-25 05:30:00 TeRoldan morales Meth odist POC GLUCOSE 2019-11-24 19:57:00 TeqwimRoldan ybarra Meth odist POC GLUCOSE 2019-11-24 17:20:00 TetimoimRoldan ybarra Meth odist US RENAL 2019-11-24 14:21:44 Esa Sears POC GLUCOSE 2019-11-24 12:18:00 TeqwimRoldan ybarra Meth odist POC GLUCOSE 2019-11-24 05:56:00 Iron Barton odist XR ABDOMEN 1 VW PORTABLE 2019-11-23 20:36:18 Marito Sears BLOOD CULTURE, AEROBIC & 2019-11-23 18:20:00 Iron Barton ANAEROBIC BLOOD CULTURE, AEROBIC & 2019-11-23 18:05:00 Iron Barton ANAEROBIC HC COMPLETE BLD COUNT 2019-11-23 18:05:00 Oralia Julyroshni salgado Sikhism W/AUTO DIFF PROTHROMBIN TIME WITH INR 2019-11-23 18:05:00 Iron Barton Jaswant Mcghee B NATRIURETIC PEPTIDE 2019-11-23 18:05:00 OraliaIron Sikhism COMPREHENSIVE METABOLIC 2019-11-23 18:05:00 Oralia Julyroshni calero Sikhism PANEL HEMOGLOBIN A1C 2019-11-23 18:05:00 Iron Barton Meth odist LACTIC ACID LEVEL 2019-11-23 18:05:00 Iron Barton Me thodist MAGNESIUM LEVEL 2019-11-23 18:05:00 Iron Barton Meth odist PHOSPHORUS LEVEL 2019-11-23 18:05:00 Iron Barton Met hodjimi THYROID STIMULATING 2019-11-23 18:05:00 Oralia Iron Los Mcghee HORMONE ESTIMATED GFR 2019-11-23 18:05:00 Iron Barton Meth odist SMEAR REVIEW 2019-11-23 18:05:00 Iron Barton Meth odist URINE CULTURE 2019-11-23 17:30:00 Iron Barton Meth odist URINALYSIS SCREEN AND 2019-11-23 17:30:00 Oralia Iron Burton Mcghee MICROSCOPY, WITH REFLEX TO CULTURE URINE CULTURE 2019-09-11 08:41:00 Esa Sears HC COMPLETE BLD COUNT 2019-09-11 08:41:00 Esa Sears W/AUTO DIFF COMPREHENSIVE METABOLIC 2019-09-11 08:41:00 Esa Sears PANEL MAGNESIUM LEVEL 2019-09-11 08:41:00 Esa Sears PHOSPHORUS LEVEL 2019-09-11 08:41:00 Esa Sears URINALYSIS SCREEN AND 2019-09-11 08:41:00 Esa Sears MICROSCOPY, WITH REFLEX TO CULTURE BK VIRUS BY PCR 2019-09-11 08:41:00 Esa Sears PROTEIN, URINE, RANDOM 2019-09-11 08:41:00 Esa Sears CREATININE LEVEL, URINE, 2019-09-11 08:41:00 Marito Sears RANDOM CYTOMEGALOVIRUS BY PCR 2019-09-11 08:41:00 Esa Sears [id number] TACROLIMUS LEVEL, 2019-09-11 08:41:00 Esa Sears RANDOM ESTIMATED GFR 2019-09-11 08:41:00 Esa Sears FRUCTOSAMINE 2019-09-03 08:23:00 Onelia Bailey HEMOGLOBIN A1C 2019-09-03 08:23:00 Onelia Bailey COMPREHENSIVE METABOLIC 2019-09-03 08:23:00 Onelia Bailey PANEL CBC WITH PLATELET AND 2019-09-03 08:23:00 Onelia Bailey DIFFERENTIAL PHOSPHORUS LEVEL 2019-09-03 08:23:00 Onelia Bailey PARATHYROID HORMONE 2019-09-03 08:23:00 Onelia Bailey EXTRA SERUM SPECIMEN 2019-09-03 08:23:00 Onelia Bailey Plan of Care Planned Activity Planned Date Details Comments Source Future Scheduled 2020-09-03 DIABETIC FOOT EXAM Alicia on Sikhism Test 00:00:00 [code = DIABETIC FOOT EXAM] Future Scheduled 2020-06-29 BREAST CANCER [facility] thodi Test 00:00:00 SCREENING [code = BREAST CANCER SCREENING] Future Scheduled 2020-03-01 INFLUENZA VACCINE [facility] n [facility] Test 00:00:00 [code = INFLUENZA VACCINE] Future Scheduled 2018-12-27 DIABETES: RETINAL EYE [place] [facility] Test 00:00:00 EXAM [code = DIABETES: RETINAL EYE EXAM] Future Scheduled 2007 COLONOSCOPY SCREENING [place] [facility] Test 00:00:00 [code = COLONOSCOPY SCREENING] Future Scheduled 2007 SHINGLES VACCINES [place] [facility] Test 00:00:00 (#1) [code = SHINGLES VACCINES (#1)] Future Scheduled 1978 Screening for [place] Me thodist Test 00:00:00 malignant neoplasm of cervix (procedure) [code = 853770444] Future Scheduled 1973 COVID-19 VACCINE (#1) Ho steven S[facility]ism Test 00:00:00 [code = COVID-19 VACCINE (#1)] Encounters Start End Encounter Admission Attending Care Care Encounter Source Date/Time Date/Time Type Type Clinicians Facility Department ID 2020-07-07 2020-07-07 Outpatient RENETTA [facility] [id number] [place] 00:00:00 00:00:00 BERNARDA [address] 2020-06-02 2020-06-02 [facility] [id number] [facility]00 kes - [facility] Outpat[facility] ent Clinics 2020-05-22 2020-05-22 [facility] [id number] [facility] 00[facility]00 kes - [facility] Outpat[facility] ent Clinics 2020-05-20 2020-05-20 Outpatient [facility] [id number] [place] 00:00:00 00:00:00 ONELIA [address] 2020-03-14 2020-03-14 [facility] [id number] 16:20:00 16:20:00 t BuscoTurno [facility] Medicine Outpati ent Clinics 2020-02-23 2020-02-23 [facility] [id number] 17:58:00 17:58:00 t Currently s - [facility] Medicine Medicine Outpati ent Clinics 2020-02-18 2020-02-18 [facility] [id number] 08:20:00 08:20:00 t Currently s - [facility] Medicine Medicine Outpati ent Clinics 2020-01-22 2020-01-22 Outpatient [facility] [id number] [place] 00:00:00 00:00:00 MAYA Delarosa [facility] 2020-01-21 2020-01-21 [facility] [id number] 13:00:00 13:00:[address] [facility] Medicine Outpati ent Clinics 2020-01-15 2020-01-15 Outpatient [facility] [id number] [place] 00:00:00 00:00:00 BERNARDA [facility] 2019-12-11 2019-12-11 [facility] [id number] 16:09:00 16:09:00 [facility] Medicine Outpati ent Clinics 2019-12-07 2019-12-07 [facility] [id number] 13:40:00 13:40:00 [facility] Medicine Outpati ent Clinics 2019-12-07 2019-12-07 [facility] [id number] 08:06:00 08:06:00 [facility] Medicine Outpati ent Clinics 2019-12-06 2019-12-06 Outpatient Crow Mariat [id number] [facility] 11:59:00 11:59:00 [facility] Outpati ent Clinics 2019-11-23 2019-11-25 Outpatient [facility] [id number] [place] 00:00:00 00:00:00 ROLDAN [facility] [facility] 2019-10-11 2019-10-11 [facility] [id number] [facility] 09:00:00 09:00:00 [facility] Results Test Description Test Time Test Comments Results Result Comments Source Lipid panel 2020-04-04 14:36:00 Test Item Value Reference Range Interpretation Comme nts Cholesterol, total (test 80 mg/dL <200 code = 2093-3) HDL cholesterol (test 36 mg/dL > OR = 50 L code = 2085-9) Triglycerides (test code 70 mg/dL <150 = 2571-8) LDL cholesterol 29 mg/dL (calc) Reference ra nge: <100 calculated (test code = Ashley rable range <100 33502-1) mg/dL for prima ry prevention; <7 0 mg/dL for patie nts with CHD or venkatesh betic patients with > or = 2 CHD risk fact ors. LDL-C is now calculated darryl mooney the Myranda calculation, wh ich is a validated nov el method candis mooney better accuracy than the Friedewald equation in the estimation of L DL-C. Franklin SS et al . NIRAJ. 2013;310( 19): 3063-6837 (http://educati on.[facility] stDiagnostics.c om/faq /IBH073) Cholesterol/HDL ratio 2.2 <5.0 (calc) (test code = 9830-1) Non-HDL cholesterol (test 44 <130 mg/dL Fo r patients with code = 96014-5) (calc) diabetes plu s 1 major ASCVD risk fact or, treating to a non-HDL-C goal of <100 mg/dL (LDL -C of <70 mg/dL) is considered a therapeutic opt ion. AMIRA (test code = AMIRA) FASTING:YESFASTING: YES RAC (test code = RAC) Performing Organization Information: Site ID: A Name: [facility] Address: [address] [place] [address] Director: Jake Guillen Lab Interpretation (test Abnormal code = 69602-8) [place] MethodistAmylase [id number] 14:36:00 Test Item Value Reference Range Interpretation Comments Amylase (test code = 57 U/L 21-101 1798-8) AMIRA (test code = FASTING:YESFASTING: YES AMIRA) RAC (test code = Performing Organization RAC) Information: Site ID: RGA Name: [facility] Address: [address] [place] [address] Director: Jake Guillen [place] MethodistHemoglobin [id number] 14:36:00 Test Item Value Reference Interpretation Comments Range Hemoglobin A1C (test 7.4 <5.7 % of H For nhung eone without code = 4548-4) total Hgb known diabete s, a hemoglobin A1cv alue of 6.5% or grea ter indicates that they may have diabet es and this should be confirmed with a follow-up test. For someone with kn own diabetes, a herminia ue <7% indicates t hat their diabetes is well controlled and a value greater than or equal t o 7% indicates suboptimal cont rol. A1c targets josue uld be individualiz ed based on durati on of diabetes, ag e, comorbid conditions, and other considerations. Currently, no consensus exist s regarding use ofhemoglobin A1 c for diagnosis o f diabetes for children. AMIRA (test code = FASTING:YESFASTIN AMIRA) G: YES RAC (test code = Performing RAC) Organization Information: Site ID: JOVI [facility]: [facility] Address: [address] [place] [address] Director: Jake Guillen Lab Interpretation Abnormal (test code = 25103-8) [place] MethodistLipase [id number] 14:36:00 Test Item Value Reference Range Interpretation Comments Lipase (test code = 29 U/L 7-60 3040-3) AMIRA (test code = FASTING:YESFASTING: YES AMIRA) RAC (test code = Performing Organization RAC) Information: Site ID: JOVI [facility]: [facility] Address: [address] [place] [address] Director: Jake Guillen [place] SikhismT4, [id number] 14:36:00 Test Item Value Reference Range Interpretation Comments T4, free (test code 1.2 ng/dL 0.8-1.8 = 3024-7) AMIRA (test code = FASTING:YESFASTING: YES AMIRA) RAC (test code = Performing Organization RAC) Information: Site ID: JOVI Name: [facility] Address: [address] [place] [address] Director: Jake Guillen [place] NetoistThyroid stimulating [id number] 14:36:00 Test Item Value Reference Range Interpretation Comments TSH (test code = 4.05 0.40- 4.50 mIU/L 3016-3) AMIRA (test code = FASTING:YESFASTING: YES AMIRA) RAC (test code = Performing Organization RAC) Information: Site ID: JOVI Name: [facility] Address: [address] [place] [id number] Director: Jake Guillen [place] SikhismMicroalbumin / creatinine urine [id number] 14:36:00 Test Item Value Reference Interpretation Comments Range Creatinine, urine, 69 mg/dL 20-275 random (test code = 2161-8) Microalbumin, urine 6.6 mg/dL See Note: Referenc e (test code = Range:Reference 32252-4) RangeNot establ ished Microalbumin/creati 96 <30 mcg/mg H The ADA defines nine ratio (test creat abnormaliti es in code = 9318-7) albuminexcret ion as follows: Catego ry Result (mc g/mg creatinine) Nor mal <30Microalbumin uria 30-299 Clinical albumi pardeep > OR = 300 Th e ADA recommends that at least two of threespecimens collected withi n a 3-6 month perio d beabnormal befo re considering a patient to bewi thin a diagnostic category. AMIRA (test code = FASTING:YESFASTIN AMIRA) G: YES RAC (test code = Performing RAC) Organization Information: Site ID: RGA Name: [facility] Address: [address] [place] [id number] Director: Jake Guillen Lab Interpretation Abnormal (test code = 44896-7) [place] Sikhismood culture, aerobic & [id number] 22:33:04 Test Item Value Reference Range Interpretation Comments Blood culture No growth Specimen isolate (test after 5 days InformationSpe cimen code = 600-7) of Source: BloodS pecimen incubation. Site: [facility] [id number] 16:09:56 Test Item Value Reference Range Interpretation Comments POC glucose (test code 265 mg/dL 65-99 H Opera tor Name: Carlson = 44177-7) LeeyoungDe I D: [id number] Lab Interpretation Abnormal (test code = 77869-5) [place] MethodistXR Abdomen 2 Vw Ap W Upright And/Or [id number] 13:20:54Hm Interface, Radiology Results 11/25/2019 1:23 PM CDTExamination: XR ABDOMEN 2 VW AP WUPRIGHT AND OR DECUBITUSClinical history: "Abd pain unspecified, Abd trauma blunt unstable" Comparison: 11/22/2018 IMPRESSION: Stool is present in the colon to a lesser degree than on the previous exam.. There is no evidence of acute disease within the imaged portions of both lung bases. The imaged bones appear to be degenerative. Surgical clips are seen in the abdomen. Vascular calcifications are seen. Charissa Sarmiento [id number] 14:34:05Hm Interface, Radiology Results 11/24/2019 2:37 PM CDTEXAMINATION: US RENALCLINICAL HISTORY: transplanted kidneyTECHNIQUE: Sonographic images of the renal transplant were obtained as wellas grayscale, color Doppler, and waveform analysis of the renal transplant vessels.COMPARISON: October 18, 1917FINDINGS: The right iliac fossa renal transplant is normal in size and echogenicity. Rightkidney measures 10.9 x 4.3 x 4.8 cm with cortical length of 1 m. Trace pelviectasis.Arcuate/segmental acceleration times are within normal limits.Transplant renal artery is patent. Velocities as below:Iliac artery: 99 cm/sAnastomosis: 106.8 cm/sMain renal artery: 62.3 cm/sRenal vein is patent.The urinary bladder is distended.IMPRESSION:Normal renal transplant ultrasound.[facility] [id number] MethodistXR Abdomen 1 Vw [id number] 20:53:17Hm Interface, Radiology Results 11/23/2019 8:56 PM CDTEXAMINATION: XR ABDOMEN 1 VW ROSEMARY BLECLINICAL HISTORY: Abd pain unspecifiedCOMPARISON: 05/01/2015IMPRESSION:1.Moderate retained stool mainly in the transverse colon and right colon. There is paucity of bowel gas at the rectum. No significant small bowel dilatation noted.[facility]ITALPRACWLKindred Hospitalheriberto MethodistSmear [id number] 20:45:56 Test Item Value Reference Range Interpretation Comments Platelet slide review (test code Rex adequate = 04190-0) Elliptocytes (test code = Occasional 90293-2) Los McgheeB natriuretic [id number] 18:56:56 Test Item Value Reference Range Interpretation Comments BNP (test code = 59229-3) 479 pg/mL 0-100 H Lab Interpretation (test code = Abnormal 11807-1) [place] McgheeLactic acid [id number] 18:47:47 Test Item Value Reference Range Interpretation Comments Lactic acid (test code = 93391-6) 1.0 mmol/L 0.5-2.2 [place] MethodistProthrombin time with [id number] 18:43:12 Test Item Value Reference Range Interpretation Comments Prothrombin time (test 14.1 11.5- 14.5 sec code = 5902-2) INR (test code = 1.1 The Interna tional 80108-6) Normalized Rati o (INR) is a therapeutic m onitoring tool for patien ts who are stable on oral anticoagulant t herapy. An INR of 2.0-3.0 is suggested for d eep vein thrombosis/pulm onary embolism. [place] MethodistTISSUE [id number] 16:45:00 Test Item Value Reference Range Interpretation Comments LAB AP CPT CODE (BEBASILIO) (test code = 80183 2749) TACROLIMUS [id number] 09:09:00 Test Item Value Reference Range Interpretation Comments TACROLIMUS BLOOD (BEAKER) (test 6.8 ng/mL 10.0-20.0 L code = 657) POCT-GLUCOSE [id number] 07:33:00 Test Item Value Reference Range Interpretation Comments POC-GLUCOSE METER 138 mg/dL 70-110 H TESTED AT [facility] ([facility]) (test code = [place] 1538) [address] BASIC METABOLIC [id number] 05:08:00 Test Item Value Reference Range Interpretation Comments SODIUM (BEAKER) 139 meq/L 136-145 (test code = 381) POTASSIUM (BEAKER) 4.7 meq/L 3.5-5.1 (test code = 379) CHLORIDE (BEAKER) 109 meq/L 98-107 H (test code = 382) CO2 (BEAKER) (test 23 meq/L 22-29 code = 355) BLOOD UREA NITROGEN 21 mg/dL 7-21 (BEAKER) (test code = 354) CREATININE (BEAKER) 1.08 mg/dL 0.57-1.25 (test code = 358) GLUCOSE RANDOM 93 mg/dL 70-105 (BEAKER) (test code = 652) CALCIUM (BEAKER) 8.8 mg/dL 8.4-10.2 (test code = 697) EGFR (BEAKER) (test 52 mL/min/1.73 ESTIMA NINA GFR IS code = 1092) sq m NOT ACCURATE CREATININE CLEARANCE IN PREDICTING GLOMERULAR FILTRATION RATE . ESTIMATED GFR I S NOT APPLICABLE FOR DIALYSIS PATIEN TS. CBC W/PLT COUNT & AUTO [id number] 04:51:00 Test Item Value Reference Range Interpretation Comments WHITE BLOOD CELL COUNT (BEAKER) 4.1 K/ L 4.0-10.0 (test code = 775) RED BLOOD CELL COUNT (BEAKER) 3.47 M/ L 4.00-5.00 L (test code = 761) HEMOGLOBIN (BEAKER) (test code = 11.0 GM/DL 12.0-15.0 L 410) HEMATOCRIT (BEAKER) (test code = 34.1 % 36.0-45.0 L 411) MEAN CORPUSCULAR VOLUME (BEAKER) 98.3 fL 82.0-99.0 (test code = 753) MEAN CORPUSCULAR HEMOGLOBIN 31.6 pg 27.0-33.0 (BEAKER) (test code = 751) MEAN CORPUSCULAR HEMOGLOBIN CONC 32.1 GM/DL 32.0-36.0 (BEAKER) (test code = 752) RED CELL DISTRIBUTION WIDTH 11.9 % 10.3-14.2 (BEAKER) (test code = 412) PLATELET COUNT (BEAKER) (test 148 K/CU MM 150-430 L code = 756) MEAN PLATELET VOLUME (BEAKER) 8.3 fL 6.5-10.5 (test code = 754) NUCLEATED RED BLOOD CELLS 0 /100 WBC 0-0 (BEAKER) (test code = 413) NEUTROPHILS RELATIVE PERCENT 77 % (BEAKER) (test code = 429) LYMPHOCYTES RELATIVE PERCENT 11 % (BEAKER) (test code = 430) MONOCYTES RELATIVE PERCENT 12 % (BEAKER) (test code = 431) EOSINOPHILS RELATIVE PERCENT 1 % (BEAKER) (test code = 432) BASOPHILS RELATIVE PERCENT 0 % (BEAKER) (test code = 437) NEUTROPHILS ABSOLUTE COUNT 3.17 K/ L 1.80-8.00 (BEAKER) (test code = 670) LYMPHOCYTES ABSOLUTE COUNT 0.45 K/ L 1.48-4.50 L (BEAKER) (test code = 414) MONOCYTES ABSOLUTE COUNT (BEAKER) 0.50 K/ L 0.00-1.30 (test code = 415) EOSINOPHILS ABSOLUTE COUNT 0.02 K/ L 0.00-0.50 ([facility]) (test code = 416) BASOPHILS ABSOLUTE COUNT ([facility]) 0.00 K/ L 0.00-0.20 (test code = 417) 0.00POCT-GLUCOSE [id number] 01:09:00 Test Item Value Reference Range Interpretation Comments POC-GLUCOSE METER 97 mg/dL 70-110 TESTED AT [place] [address] ([facility]) (test code = HARMEET Horn [facility] [address]) POCT-GLUCOSE [id number] 21:30:00 Test Item Value Reference Range Interpretation Comments POC-GLUCOSE METER 424 mg/dL 70-110 HH Notified R Bibiana PILLAI/TESTED ([facility]) (test code = AT [address] [address]) [facility] [address] POCT-GLUCOSE [id number] 17:04:00 Test Item Value Reference Range Interpretation Comments POC-GLUCOSE METER 198 mg/dL 70-110 H TESTED AT [place] [address] ([facility]) (test code = EDSONIA Kory [facility] 1538) [address] POCT-GLUCOSE [id number] 12:51:00 Test Item Value Reference Range Interpretation Comments POC-GLUCOSE METER 205 mg/dL 70-110 H TESTED AT [place] [address] ([facility]) (test code = HARMEET Horn [facility] 1538) [address] TACROLIMUS [id number] 12:35:00 Test Item Value Reference Range Interpretation Comments TACROLIMUS BLOOD ([facility]) (test 5.9 ng/mL 10.0-20.0 L code = 657) POCT-GLUCOSE [id number] 08:32:00 Test Item Value Reference Range Interpretation Comments POC-GLUCOSE METER 60 mg/dL 70-110 L TESTED AT [place] [address] ([facility]) (test code = EDSONIA Kory [facility] [address] 1538) POCT-GLUCOSE [id number] 21:41:00 Test Item Value Reference Range Interpretation Comments POC-GLUCOSE METER 202 mg/dL 70-110 H TESTED AT [place] [address] ([facility]) (test code = HARMEET Horn [facility] 1538) [id number] POCT-GLUCOSE [id number] 17:36:00 Test Item Value Reference Range Interpretation Comments POC-GLUCOSE METER 191 mg/dL 70-110 H TESTED AT [facility] (BEAKER) (test code = [place] 1538) [id number] POCT-GLUCOSE [id number] 11:01:00 Test Item Value Reference Range Interpretation Comments POC-GLUCOSE METER 232 mg/dL 70-110 H TESTED AT [place] [id number] (BEAKER) (test code = [place] [address] [place] 1538) [id number] TACROLIMUS [id number] 10:16:00 Test Item Value Reference Range Interpretation Comments TACROLIMUS BLOOD (BEAKER) (test 8.3 ng/mL 10.0-20.0 L code = 657) POCT-GLUCOSE [id number] 08:16:00 Test Item Value Reference Range Interpretation Comments POC-GLUCOSE METER 366 mg/dL 70-110 H TESTED AT [place] [address] (BEAKER) (test code = [place] 1538) [id number] BASIC METABOLIC [id number] 06:57:00 Test Item Value Reference Range Interpretation Comments SODIUM (BEAKER) 138 meq/L 136-145 (test code = 381) POTASSIUM (BEAKER) 5.1 meq/L 3.5-5.1 (test code = 379) CHLORIDE (BEAKER) 108 meq/L 98-107 H (test code = 382) CO2 (BEAKER) (test 22 meq/L 22-29 code = 355) BLOOD UREA NITROGEN 26 mg/dL 7-21 H (BEAKER) (test code = 354) CREATININE (BEAKER) 1.38 mg/dL 0.57-1.25 H (test code = 358) GLUCOSE RANDOM 271 mg/dL 70-105 H (BEAKER) (test code = 652) CALCIUM (BEAKER) 8.2 mg/dL 8.4-10.2 L (test code = 697) EGFR (BEAKER) (test 39 mL/min/1.73 ESTIMA NINA GFR IS code = 1092) sq m NOT ACCURATE CREATININE CLEARANCE IN PREDICTING GLOMERULAR FILTRATION RATE . ESTIMATED GFR I S NOT APPLICABLE FOR DIALYSIS PATIEN TS. HEMOGLOBIN AND [id number] 06:40:00 Test Item Value Reference Range Interpretation Comments HEMOGLOBIN (BEAKER) (test code = 11.4 GM/DL 12.0-15.0 L 410) HEMATOCRIT (BEAKER) (test code = 36.1 % 36.0-45.0 411) POCT-GLUCOSE [id number] 23:30:00 Test Item Value Reference Range Interpretation Comments POC-GLUCOSE METER 274 mg/dL 70-110 H TESTED AT [facility] (BEAKER) (test code = [place] [address]) [id number] BASIC METABOLIC [id number] 18:49:00 Test Item Value Reference Range Interpretation Comments SODIUM (BEAKER) 142 meq/L 136-145 (test code = 381) POTASSIUM (BEAKER) 4.2 meq/L 3.5-5.1 (test code = 379) CHLORIDE (BEAKER) 114 meq/L 98-107 H (test code = 382) CO2 (BEAKER) (test 20 meq/L 22-29 L code = 355) BLOOD UREA NITROGEN 28 mg/dL 7-21 H (BEAKER) (test code = 354) CREATININE (BEAKER) 1.36 mg/dL 0.57-1.25 H (test code = 358) GLUCOSE RANDOM 177 mg/dL 70-105 H (BEAKER) (test code = 652) CALCIUM (BEAKER) 8.3 mg/dL 8.4-10.2 L (test code = 697) EGFR (BEAKER) (test 40 mL/min/1.73 ESTIMA NINA GFR IS code = 1092) sq m NOT ACCURATE CREATININE CLEARANCE IN PREDICTING GLOMERULAR FILTRATION RATE . ESTIMATED GFR I S NOT APPLICABLE FOR DIALYSIS PATIEN TS. HEMOGLOBIN AND [id number] 18:35:00 Test Item Value Reference Range Interpretation Comments HEMOGLOBIN (BEAKER) (test code = 11.5 GM/DL 12.0-15.0 L 410) HEMATOCRIT (BEAKER) (test code = 35.6 % 36.0-45.0 L 411) BASIC METABOLIC [id number] 12:08:00 Test Item Value Reference Range Interpretation Comments SODIUM (BEAKER) 140 meq/L 136-145 (test code = 381) POTASSIUM (BEAKER) 4.4 meq/L 3.5-5.1 (test code = 379) CHLORIDE (BEAKER) 106 meq/L 98-107 (test code = 382) CO2 (BEAKER) (test 23 meq/L 22-29 code = 355) BLOOD UREA NITROGEN 35 mg/dL 7-21 H (BEAKER) (test code = 354) CREATININE (BEAKER) 1.47 mg/dL 0.57-1.25 H (test code = 358) GLUCOSE RANDOM 69 mg/dL 70-105 L (BEAKER) (test code = 652) CALCIUM (BEAKER) 9.9 mg/dL 8.4-10.2 (test code = 697) EGFR (BEAKER) (test 36 mL/min/1.73 ESTIMA NINA GFR IS code = 1092) sq m NOT ACCURATE CREATININE CLEARANCE IN PREDICTING GLOMERULAR FILTRATION RATE . ESTIMATED GFR I S NOT APPLICABLE FOR DIALYSIS PATIEN TS. CBC (HEMOGRAM ONLY)[id number] 12:01:00 Test Item Value Reference Range Interpretation Comments WHITE BLOOD CELL COUNT (BEAKER) 6.0 K/ L 4.0-10.0 (test code = 775) RED BLOOD CELL COUNT (BEAKER) 3.84 M/ L 4.00-5.00 L (test code = 761) HEMOGLOBIN (BEAKER) (test code = 12.0 GM/DL 12.0-15.0 410) HEMATOCRIT (BEAKER) (test code = 37.4 % 36.0-45.0 411) MEAN CORPUSCULAR VOLUME (BEAKER) 97.3 fL 82.0-99.0 (test code = 753) MEAN CORPUSCULAR HEMOGLOBIN 31.3 pg 27.0-33.0 (BEAKER) (test code = 751) MEAN CORPUSCULAR HEMOGLOBIN CONC 32.2 GM/DL 32.0-36.0 (BEAKER) (test code = 752) RED CELL DISTRIBUTION WIDTH 11.8 % 10.3-14.2 (BEAKER) (test code = 412) PLATELET COUNT (BEAKER) (test 183 K/CU MM 150-430 code = 756) MEAN PLATELET VOLUME (BEAKER) 8.3 fL 6.5-10.5 (test code = 754) NUCLEATED RED BLOOD CELLS 0 /100 WBC 0-0 (BEAKER) (test code = 413) 0.00POTASSIUM-STAT [id number] 11:43:00 Test Item Value Reference Range Interpretation Comments POTASSIUM (BEAKER) (test code = 4.3 meq/L 3.6-5.5 379) POCT-GLUCOSE [id number] 11:34:00 Test Item Value Reference Range Interpretation Comments POC-GLUCOSE METER 82 mg/dL 70-110 TESTED AT [facility] (BEAKER) (test code = [place] [address]) URINE [id number] 11:19:00 Test Item Value Reference Range Interpretation Comments CULTURE (BEAKER) (test 20-29,000 col/mL skin code = 1095) tea URINALYSIS W/ [id number] 15:16:00 Test Item Value Reference Range Interpretation Comments COLOR (BEAKER) (test code = 470) Yellow CLARITY (BEAKER) (test code = 469) Clear SPECIFIC GRAVITY UA (BEAKER) (test 1.013 1.001-1.035 code = 468) PH UA (BEAKER) (test code = 467) 6.0 5.0-8.0 PROTEIN UA (BEAKER) (test code = Negative Negative 464) GLUCOSE UA (BEAKER) (test code = 30 mg/dL Negative A 365) KETONES UA (BEAKER) (test code = Negative Negative 371) BILIRUBIN UA (BEAKER) (test code = Negative Negative 462) BLOOD UA (BEAKER) (test code = 461) Negative Negative NITRITE UA (BEAKER) (test code = Negative Negative 465) LEUKOCYTE ESTERASE UA (BEAKER) Trace Negative A (test code = 466) UROBILINOGEN UA (BEAKER) (test code 0.2 mg/dL 0.2-1.0 = 463) RBC UA (BEAKER) (test code = 519) < /HPF WBC UA (BEAKER) (test code = 520) < /HPF SQUAMOUS EPITHELIAL (BEAKER) (test < /HPF code = 516) SOURCE(BEAKER) (test code = 2795) CBC W/PLT COUNT & AUTO [id number] 14:56:00 Test Item Value Reference Range Interpretation Comments WHITE BLOOD CELL COUNT (BEAKER) 4.2 K/ L 4.0-10.0 (test code = 775) RED BLOOD CELL COUNT (BEAKER) 3.68 M/ L 4.00-5.00 L (test code = 761) HEMOGLOBIN (BEAKER) (test code = 11.6 GM/DL 12.0-15.0 L 410) HEMATOCRIT (BEAKER) (test code = 36.4 % 36.0-45.0 411) MEAN CORPUSCULAR VOLUME (BEAKER) 98.8 fL 82.0-99.0 (test code = 753) MEAN CORPUSCULAR HEMOGLOBIN 31.4 pg 27.0-33.0 (BEAKER) (test code = 751) MEAN CORPUSCULAR HEMOGLOBIN CONC 31.8 GM/DL 32.0-36.0 L (BEAKER) (test code = 752) RED CELL DISTRIBUTION WIDTH 12.8 % 10.3-14.2 (BEAKER) (test code = 412) PLATELET COUNT (BEAKER) (test 167 K/CU MM 150-430 code = 756) MEAN PLATELET VOLUME (BEAKER) 8.4 fL 6.5-10.5 (test code = 754) NUCLEATED RED BLOOD CELLS 0 /100 WBC 0-0 (BEAKER) (test code = 413) NEUTROPHILS RELATIVE PERCENT 87 % (BEAKER) (test code = 429) LYMPHOCYTES RELATIVE PERCENT 8 % (BEAKER) (test code = 430) MONOCYTES RELATIVE PERCENT 5 % (BEAKER) (test code = 431) EOSINOPHILS RELATIVE PERCENT 0 % (BEAKER) (test code = 432) BASOPHILS RELATIVE PERCENT 0 % (BEAKER) (test code = 437) NEUTROPHILS ABSOLUTE COUNT 3.68 K/ L 1.80-8.00 (BEAKER) (test code = 670) LYMPHOCYTES ABSOLUTE COUNT 0.32 K/ L 1.48-4.50 L (BEAKER) (test code = 414) MONOCYTES ABSOLUTE COUNT (BEAKER) 0.20 K/ L 0.00-1.30 (test code = 415) EOSINOPHILS ABSOLUTE COUNT 0.01 K/ L 0.00-0.50 (BEAKER) (test code = 416) BASOPHILS ABSOLUTE COUNT (BEAKER) 0.00 K/ L 0.00-0.20 (test code = 417) 0.00BASI METABOLIC [id number] 14:55:00 Test Item Value Reference Range Interpretation Comments SODIUM (BEAKER) 140 meq/L 136-145 (test code = 381) POTASSIUM (BEAKER) 5.3 meq/L 3.5-5.1 H Specimen slightly (test code = 379) hemolyzed CHLORIDE (BEAKER) 108 meq/L 98-107 H (test code = 382) CO2 (BEAKER) (test 22 meq/L 22-29 code = 355) BLOOD UREA NITROGEN 28 mg/dL 7-21 H (BEAKER) (test code = 354) CREATININE (BEAKER) 1.61 mg/dL 0.57-1.25 H Specimen slightly (test code = 358) hemolyzed GLUCOSE RANDOM 209 mg/dL 70-105 H (BEAKER) (test code = 652) CALCIUM (BEAKER) 9.3 mg/dL 8.4-10.2 (test code = 697) EGFR (BEAKER) (test 33 mL/min/1.73 ESTIMA NINA GFR IS code = 1092) sq m NOT ACCURATE CREATININE CLEARANCE IN PREDICTING GLOMERULAR FILTRATION RATE . ESTIMATED GFR I S NOT APPLICABLE FOR DIALYSIS PATIEN TS. [id number] 14:51:00 Test Item Value Reference Range Interpretation Comments PARTIAL THROMBOPLASTIN TIME 30.7 seconds 22.5-36.0 (BEAKER) (test code = 760) PROTHROMBIN [id number] 14:50:00 Test Item Value Reference Range Interpretation Comments PROTIME (BEAKER) (test code = 14.3 seconds 11.7-14.7 759) INR (BEAKER) (test code = 370) 1.1 <=5.9 RECOMMENDED COUMADIN/WARFARIN INR THERAPY RANGESSTANDARD DOSE: 2.0 - 3.0 Includes: PROPHYLAXIS forvenous thrombosis, systemic embolization; TREATMENT for venous thrombosis and/or pulmonary embolus.HIGH RISK: Target INR is 2.5-3.5 for patients with mechanical heart valves.
[2020-07-27 16:51] LABS: Absolute Lymphocytes (CBC) 0.2 K/uL (0.7-4.9); Basophils % 0.1 % (0-1.3); Hematocrit 32.7 % (36.0-45.0); Lymphocytes % 4.7 % (15.3-44.8); MPV 9.1 fL (7.6-11.3); RBC Red Blood Cell Count 3.62 M/uL (3.86-4.86)
[2020-07-27] MEDS ORDERED: MORPHINE 2 MG/ML SYR ONE (17:03)
[2020-07-27] MEDS ORDERED: ONDANSETRON 4 MG/2 ML VIAL ONE (17:04)
[2020-07-27 17:07] LABS: Albumin 3.3 g/dL (3.4-5.0); Bilirubin Direct 0.1 mg/dL (0-0.2); Bilirubin Total 0.4 mg/dL (0.2-1.0); Potassium 3.8 mmol/L (3.5-5.1); Protein, Total 7.3 g/dL (6.4-8.2)
--- NOTE | 2020-07-27 17:28 | RAD REPORT ---
EXAM DESCRIPTION: CT - Stone Protocol - 07/27/2020 5:03 pm CLINICAL HISTORY: fall, lower back pain, lower abdominal pain COMPARISON: CT January 2019 TECHNIQUE: Axial 3 mm thick images were obtained without oral or IV contrast. The [id number] span s the entirety of the system including uppermost abdomen and lung bases. All CT scans are performed using dose optimization technique as appropriate and may include automated exposure control or mA/KV adjustment according to patient size. FINDINGS: Bilateral airspace opacification present in the lower lung beck. Multiple 9-11 mm noncal cified pulmonary nodules in the right lower lobe. No endobronchial lesions present. No pneumothorax o r pleural effusion. No pericardial thickening or effusion. Atrophic [place] left kidney is present without hydronephrosis. There is probably little or no functio n coming from this kidney. No obstructing or nonobstructing calculus. No mass lesions seen. Dense art erial tree calcifications are present. Approximately 2.2 centimeter left adrenal mass has not change from comparison. 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 Tr ansplant kidney is present in the right lower quadrant. Kidney appears edematous. The motion on the e xamination limits assessment. Obstructive hydronephrosis is not identified. Surgical clips are presen t near the vascular anastomosis. No suspicious renal masses. Isodense masses and pyelonephritis are n ot excluded on a stone protocol CT scan. Well filled urinary bladder shows no suspicious finding. Imaged portions of the liver, spleen and pancreas show no suspicious findings on non-contrast imaging . Gallbladder is distended. No biliary tree dilatation. Gallstones can be occult on CT imaging. No pe richolecystic fluid. No gastric dilatation or wall thickening. No dilated small bowel. Moderate stool volume present throu ghout the colon. No appendicitis. No acute colon process suspected. No mass or bulky lymphadenopathy. There is laxity and thinning of the anterior abdominal wall but no definitive hernia defect seen. No free air or pneumatosis. Disc and bony degenerative changes are present. IMPRESSION: Bilateral airspace opacification in the lower lung beck with several noncalcified 9-11 mm sized pulmonary nodules in the right lower lobe not clearly seen on the January 2019 study. Chest is not fully evaluated. The airspace opacification is nonspecific. This could be alveolar edema if the patient is a dialysis patient. Viral infection including COVID-19 pneumonia etiologies are possible. Right lower quadrant transplant kidney appears edematous. This is in part due to motion. No hydroneph rosis. Isodense masses and pyelonephritis are not excluded. Right kidney is absent. [place] left kidney shows no hydronephrosis, obstructing calculus or acute fin ding.
--- NOTE | 2020-07-27 18:30 | ER ---
Nurse's Notes [facility] Name: Paola Mishra Age: 64 yrs Sex: Female : 1955 Arrival Date: 07/27/2020 Time: 11:58 Bed 25 Private MD: Lexis Long Diagnosis: Strain of muscle, fascia and tendon of lower back Presentation: 07/27 13:34 Chief complaint: Patient states: Tripped and fell, landed on back 3 - 4 days [employer]. ca1 Reports low back pain. Coronavirus screen: Client denies travel out of the [place] in the last 14 days. At this time, the client does not indicate any symptoms associated with coronavirus-19. Ebola Screen: Patient negative for fever greater than or equal to 101.5 degrees Fahrenheit, and additional compatible Ebola Virus Disease symptoms Patient denies exposure to infectious person. Patient denies travel to an Ebola-affected area in the 21 days before illness onset. No symptoms or risks identified at this time. Initial Sepsis Screen: Does the patient meet any 2 criteria? No. Patient's initial sepsis screen is negative. Does the patient have a suspected source of infection? No. Patient's initial sepsis screen is negative. Risk Assessment: Do you want to hurt yourself or someone else? Patient reports no desire to harm self or others. Onset of symptoms was July 27, 2020. 13:34 Method Of Arrival: Wheelchair ca1 13:34 Acuity: NOHELIA 4 ca1 16:33 Acuity: NOHELIA 3 ca1 Historical: - Allergies: 13:37 NKDA; ca1 - PMHx: 13:37 Diabetes - IDDM; ESRD; no longer does dialysis, recieved kidney transplant; ca1 Hyperlipidemia; Hypertension; kidney transplant; - Immunization history:: Adult Immunizations up to date, Flu vaccine is up to date. - Social history:: Smoking status: Patient denies any tobacco usage or history of. Screenin:09 Abuse screen: Denies threats or abuse. Denies injuries from another. Nutritional ca1 screening: No deficits noted. Tuberculosis screening: No symptoms or risk factors identified. Fall Risk Fall in past 12 months (25 points). Assessment: 16:09 General: Appears in no apparent distress. uncomfortable, Behavior is calm, cooperative, ca1 appropriate for age. Pain: Complains of pain in low back area and right low back Pain currently is 10 out of 10 on a pain scale. Pain began 2-3 days ago. Neuro: Level of Consciousness is awake, alert, obeys commands, Oriented to person, place, time, situation, Appropriate for age. Derm: Skin is intact, is healthy with good turgor, Skin is pink, warm \T\ dry. Musculoskeletal: Circulation, motion, and sensation intact. Capillary refill < 3 seconds. 17:07 Reassessment: Patient appears in no apparent distress at this time. Patient and/or ca1 family updated on plan of care and expected duration. Pain level reassessed. Patient is alert, oriented x 3, equal unlabored respirations, skin warm/dry/pink. 18:10 Reassessment: Patient appears in no apparent distress at this time. Patient and/or iw family updated on plan of care and expected duration. Pain level reassessed. Patient is alert, oriented x 3, equal unlabored respirations, skin warm/dry/pink. urine sample collected. 18:57 Reassessment: Patient appears in no apparent distress at this time. Patient is alert, ca1 oriented x 3, equal unlabored respirations, skin warm/dry/pink. Vital Signs: 13:34 BP 136 / 62; Pulse 93; Resp 16 S; Temp 97.6(TE); Pulse Ox 95% on R/A; Weight 53.52 kg ca1 (R); Height 5 ft. 0 in. (152.40 cm) (R); Pain 10/10; 16:14 BP 140 / 70; Pulse 90; Resp 17 S; Pulse Ox 98% on R/A; mh5 17:21 BP 111 / 69; Pulse 89; Resp 16; Temp 97.8(O); Pulse Ox 95% on R/A; mh5 18:24 BP 148 / 71; Pulse 91; Resp 17; Temp 99.2(O); Pulse Ox 97% on R/A; mh5 13:34 Body Mass Index 23.05 (53.52 kg, 152.40 cm) ca1 ED Course: 11:58 Patient arrived in ED. ag5 11:58 Lexis Long MD is Private Physician. ag5 13:37 Triage completed. ca1 13:37 Arm band placed on right wrist. ca1 16:08 Daxa Gilbert RN is Primary Nurse. ca1 16:09 Patient has correct armband on for positive identification. Bed in low position. Call ca1 light in reach. Side rails up X 1. Pulse ox on. NIBP on. Warm blanket given. 16:13 Rishi Myers PA is PHCP. [facility] 16:13 Tyler Guillory MD is Attending Physician. [facility] 16:41 Basic Metabolic Panel Sent. [facility] 16:41 CBC with Diff Sent. [facility] 16:42 [address] [facility] 16:[address] [facility] 16:42 Initial lab(s) drawn, by or, sent to lab. Inserted saline lock: [address] [facility] antecubital area, using aseptic technique. Blood collected. 17:03 CT Stone Protocol In Process Unspecified. EDMA 18:14 Urine collected: clean catch specimen, clear. [facility] 19:20 No provider procedures requiring assistance completed. IV discontinued, intact, ca1 bleeding controlled, No redness/swelling at site. Pressure dressing applied. Administered Medications: 16:48 Drug: Zofran (Ondansetron) 4 mg Route: IVP; Site: right antecubital; ca1 18:57 Follow up: Response: No adverse reaction; Nausea is decreased ca1 16:51 Drug: morphine 2 mg {Note: rass 0.} Route: IVP; Site: right antecubital; ca1 18:57 Follow up: Response: No adverse reaction; Pain is decreased; RASS: Alert and Calm (0) [facility] Outcome: 18:30 Discharge ordered by MD. [facility] 19:20 Discharged to home ambulatory, with significant other. [facility] 19:20 Condition: stable 19:20 Discharge instructions given to patient, Instructed on discharge instructions, follow up and referral plans. no drinking with medication, no driving heavy equipment, medication usage, Demonstrated understanding of instructions, follow-up care, medications, Prescriptions given X 1. 19:21 Patient left the ED. iw Signatures: Dispatcher [employer] EDMS Rishi Myers PA PA jmm Williams, Irene, RN RN Aparna Sorto [facility] Daxa Gilbert RN RN [facility]
[2020-07-27 18:31] LABS: Urine Blood TRACE (NEG); Urine Glucose NEGATIVE (NEG); Urine Protein 2+ (NEG); Urine pH 5.5 (5.0-7.0)
--- NOTE | 2020-07-27 18:31 | EDPHYS ---
Physician Documentation [facility] Name: Paola Mishra Age: 64 yrs Sex: Female : 1955 Arrival Date: 07/27/2020 Time: 11:58 Bed 25 Private MD: Lexis Long ED Physician Tyler Guillory HPI: 07/27 16:46 This 64 yrs old Female presents to ER via Wheelchair with complaints of Back jmm Pain. 16:46 The patient presents with pain that is acute. The symptoms are located in the low back. jmm Onset: The symptoms/episode began/occurred acutely, 4 day(s) ago. The pain does not radiate. Associated signs and symptoms: Pertinent positives: abdominal pain, Pertinent negatives: dysuria. This is a 64 year old female with a history of DM, ESRD, HLP that presents to the ED with complaints of lower back pain beginning after a fall 4 days ago. patient landed on on her back. Pain radiates into the lower abdomen. . Historical: - Allergies: 13:37 NKDA; ca1 - PMHx: 13:37 Diabetes - IDDM; ESRD; no longer does dialysis, recieved kidney transplant; ca1 Hyperlipidemia; Hypertension; kidney transplant; - Immunization history:: Adult Immunizations up to date, Flu vaccine is up to date. - Social history:: Smoking status: Patient denies any tobacco usage or history of. ROS: 16:47 Constitutional: Negative for fever, chills, and weight loss, Cardiovascular: Negative jmm for chest pain, palpitations, and edema, Respiratory: Negative for shortness of breath, cough, wheezing, and pleuritic chest pain. 16:47 Back: Positive for pain with movement. 16:47 All other systems are negative. Exam: 16:47 Constitutional: This is a well developed, well nourished patient who is awake, alert, jmm and in no acute distress. Head/Face: atraumatic. Eyes: EOMI, no conjunctival erythema appreciated ENT: Moist Mucus Membranes Neck: Trachea midline, Supple Chest/axilla: Normal chest wall appearance and motion. Cardiovascular: Regular rate and rhythm. No edema appreciated Respiratory: Normal respirations, no respiratory distress appreciated Abdomen/GI: Non distended, soft 16:47 Back: lower lumbar back pain on palpation, no swelling or induration appreciated. . 16:47 Musculoskeletal/extremity: ROM: intact in all extremities. 16:47 Skin: Appearance: Color: normal in color. 16:47 Neuro: Orientation: is normal, Mentation: is normal, Memory: is normal. 16:47 Psych: Behavior/mood is pleasant, cooperative. Vital Signs: 13:34 BP 136 / 62; Pulse 93; Resp 16 S; Temp 97.6(TE); Pulse Ox 95% on R/A; Weight 53.52 kg ca1 (R); Height 5 ft. 0 in. (152.40 cm) (R); Pain 10/10; 16:14 BP 140 / 70; Pulse 90; Resp 17 S; Pulse Ox 98% on R/A; mh5 17:21 BP 111 / 69; Pulse 89; Resp 16; Temp 97.8(O); Pulse Ox 95% on R/A; mh5 18:24 BP 148 / 71; Pulse 91; Resp 17; Temp 99.2(O); Pulse Ox 97% on R/A; mh5 13:34 Body Mass Index 23.05 (53.52 kg, 152.40 cm) ca1 MDM: 16:25 Patient medically screened. [facility] 18:29 Data reviewed: vital signs, nurses notes. Counseling: I had a detailed discussion with annel the patient and/or guardian regarding: the historical points, exam findings, and any diagnostic results supporting the discharge/admit diagnosis, lab results, radiology results, the need for outpatient follow up, to return to the emergency department if symptoms worsen or persist or if there are any questions or concerns that arise at home. ED course: Abnormal labs discussed with the patient along with the need to follow up with product marketing coordinator. Otherwise given strict return precautions. patient understood and agrees with the plan of care. . 07/27 16:32 Order name: Basic Metabolic Panel; Complete Time: 17:17 [facility] 07/27 16:32 Order name: CBC with Diff; Complete Time: 17:17 [facility] 07/27 16:32 Order name: Hepatic Function; Complete Time: 17:17 [facility] 07/27 16:32 Order name: Lipase; Complete Time: 17:17 [facility] 07/27 18:14 Order name: Urine Dipstick--Ancillary (enter results); Complete Time: 18:36 em1 07/27 16:32 Order name: IV Saline Lock; Complete Time: 16:41 [facility] 07/27 16:32 Order name: Labs collected and sent; Complete Time: 16:41 [facility] 07/27 16:44 Order name: CT Stone Protocol; Complete Time: 17:33 [facility] 07/27 17:38 Order name: Urine Dipstick-Ancillary (obtain specimen); Complete Time: 18:13 [facility] Administered Medications: 16:48 Drug: Zofran (Ondansetron) 4 mg Route: IVP; Site: right antecubital; ca1 18:57 Follow up: Response: No adverse reaction; Nausea is decreased ca1 16:51 Drug: morphine 2 mg {Note: rass 0.} Route: IVP; Site: right antecubital; ca1 18:57 Follow up: Response: No adverse reaction; Pain is decreased; RASS: Alert and Calm (0) ca1 Disposition: 07/28 08:47 Co-signature as Attending Physician, Tyler Guillory MD. rn Disposition: 07/27/20 18:30 Discharged to Home. Impression: Strain of muscle, fascia and tendon of lower back. - Condition is Stable. - Discharge Instructions: Back Pain, Adult. - Prescriptions for Ultracet 37.5- 325 mg Oral Tablet - take 1 tablet by ORAL route every 6 hours - for up to 5 days; do not exceed 8 tablets per day.; 12 tablet. - Medication Reconciliation Form, Thank You Letter, Antibiotic Education, Prescription Opioid Use form. - Follow up: Private Physician; When: 2 - 3 days; Reason: Recheck today's complaints, Continuance of care, Re-evaluation by your physician. Signatures: Dispatcher [employer] [facility] Rishi Myers PA PA Luisa Monk, RN RN iw Tyler Guillory MD MD rn AcobDaxa RN RN ca1 Corrections: (The following items were deleted from the chart) 07/27 16:50 16:33 Abdomen Pelvis W Con+CT.RAD.BRZ ordered. [facility] 19:21 18:30 07/27/2020 18:30 Discharged to Home. Impression: Strain of muscle, fascia and iw tendon of lower back. Condition is Stable. Forms are Medication Reconciliation Form, Thank You Letter, Antibiotic Education, Prescription Opioid Use. Follow up: Private Physician; When: 2 - 3 days; Reason: Recheck today's complaints, Continuance of care, Re-evaluation by your physician. annel
[2020-07-27 19:35] VITALS: BP 148/71; TEMP 99.2; O2SAT 97
== END 2020-07-27 19:21 | disposition home or self-care (01) ==
LOC: ER 11:56
DX: S39.012A Strain of muscle, fascia and tendon of lower back, initial encounter (principal); W01.0XXA Fall on same level from slipping, tripping and stumbling without subsequent striking against object, initial encounter; Y93.9 Activity, unspecified; Y92.9 Unspecified place or not applicable; E11.22 Type 2 diabetes mellitus with diabetic chronic kidney disease; I12.0 Hypertensive chronic kidney disease with stage 5 chronic kidney disease or end stage renal disease; N18.6 End stage renal disease; Z94.0 Kidney transplant status
CPT/HCPCS: 85025; 80048; 36415; 80076; 81003; 83690; 76377; 74176; 96375; 96374; 99284; J2270; J2405

== ENCOUNTER 2020-08-01 10:16 | Observation (INO) | payer OTHER ==
--- OUTSIDE RECORDS SUMMARY | 2020-08-01 10:19 | XMS REPORT | Clinical Summary ---
:1955 Author Organization [facility] Address [address] [place] [address] Care Team Providers Name Role Phone Kishor [...] by mouth 3 (three) times a day. guaiFENesin Take 600 mg by 0 Act arturo (MUCINEX) 600 mg mouth every 12 tablet extended (twelve) hours. release 12hr albuterol sulfate Inhale 180 mcg 1 each 23 0 Active 90 mcg/actuation every 4 (four) 0 21 aerosol powdr hours. breath activated [phone] for ronald - Maki RN insulin ASPART inyecte 8 18 mL 5 Activ e (NovoLOG Flexpen unidades bajo de 0 U-100 Insulin) la piel con 100 unit/mL (3 desayuno, 12 mL) insulin pen unidades antes del almuerzo y la lydia y mas unidades heidy escala movil. simvastatin Take 1 tablet 90 tablet 3 09/20/19 Acti ve (ZOCOR) 20 MG (20 mg total) by 0 21 tablet mouth nightly. mycophenolate Take 1 tablet 60 tablet 09/20/19 Ac tive (CELLCEPT) 500 mg (500 mg total) 0 21 tablet by mouth 2 (two) times a day. RUN UNDER PART B; Maki SORIANO [phone] w any refill issues blood-glucose DX E11.65 1 each 1 Active meter misc Patient is 0 testing QID. Please match machine to insurance. insulin lispro Inject 4 Units 0 Active (HumaLOG) 100 under the skin unit/mL injection Medrol Dose Pack Scheduling ONLY. Take with dinner insulin lispro Inject 3 Units 10 mL 5 Active (HumaLOG) 100 under the skin 3 0 unit/mL injection (three) times a day before meals. On sliding scale insulin NPH 20 units in AM 10 mL Act artuor (HumuLIN-N) 100 0 unit/mL injection omeprazole Take 1 capsule 90 capsule 02/13/20 Act arturo (PriLOSEC) 40 MG (40 [...] of s: hypocalcemia calcium in the blood. [phone] for auth issues calcium carbonate Chew 1 tablet 120 tablet 0 Active (TUMS) 200 mg (500 mg total) 4 0 21 calcium (500 mg) (four) times a chewable tablet day. carvediloL Take 1 tablet 60 tablet 02/19/20 Activ e (COREG) 12.5 MG (12.5 mg total) 0 21 tablet by mouth 2 (two) times a day with meals. clonIDINE Take 1 tablet 90 tablet 02/19/20 Active (Catapres) 0.1 MG (0.1 mg total) [...] of insulin (FORMERLY [facility]) lancets 33 gauge DX E11.65 400 each [...] .prevent kidney rejection transplant rejection. DOSE CHANGE! predniSONE Take 1 tablet (5 30 tablet 11 07/30/20 Ac tive (DELTASONE) 5 mg mg total) by 0 21 tabletIndications mouth daily : prevention of .prevent kidney kidney transplant transplant rejection rejection. 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 RUN UNDER PART B; Maki SORIANO [phone] w any refill issues predniSONE Take 1 tablet (5 30 tablet 07/30/20 Di scontinued (DELTASONE) 5 mg mg total) by 9 20 (Reorder) tabletIndications mouth daily : prevention of .prevent kidney kidney transplant transplant rejection rejection. megestrol Take 1 tablet 30 tablet 11 [...] 20 (Discont inued (FLONASE) 50 daily. by anot her mcg/actuation clinic danielle) nasal spray azithromycin Take 2 [...] 0 20 (Discontinued tablet mouth daily. by eloisa her clinician) tacrolimus Take 2 capsules 120 [...] blood. tacrolimus Take 3 capsules 180 capsule 11 07/08/20 D iscontinued (PROGRAF) 0.5 MG (1.5 [...] Encounters Date Type Specialty Care Team Description 07/30/2020 Refill Transplant Artur Med Refill BO Gambino 07/29/2020 Orders Only Transplant Siddiqui, Kidney replaced by transplant (Primary Dx); BO Gambino Urinary tract i nfection without hematuria, site unspecified; Proteinuria, un specified type 07/08/2020 Refill Transplant Artur Med Refkeshia Gambino RN 07/07/2020 Travel 06/05/2020 Orders Only Endocrinology Uzma [...] 05/20/2020 Travel 02/19/2020 Refill Transplant Artur Med Refkeshia Gambino RN 02/13/2020 Telephone Transplant Woelfel, Rx Refill Requyovani Freeman [place] 02/13/2020 Refill Transplant Siddiqui, Med Refill Maki, BO 02/06/2020 Telephone Transplant Artur, Lab Review BO Gambino 01/22/2020 Telephone Consult Transplant Stark, Kidney rep laced by Tre Ascencio, transplant (P rimary Dx) 01/22/2020 Telephone Transplant Minerva, Speak to ivy rivas Lona 01/18/2020 Telephone Transplant Jasmyn Angel Advice Only 01/15/2020 Travel 01/09/2020 Telephone Transplant Jasmyn Angel Advice Only 01/03/2020 Travel 11/26/2019 Orders Only Endocrinology Uzma Nieves, MA 11/23/2019 Hospital Encounter General Internal Cristian Barton (primary) - Medicine MD Iron hypertension (Primary 11/25/2019 [place], Dx) Roldan, 11/23/2019 Documentation Transplant Maki Siddiqui, BO 11/20/2019 Telephone Transplant Artur, Welfare Check Maki, BO 11/19/2019 Telephone Transplant Artur, Urinary Tract I nfection BO Gambino 11/06/2019 Orders Only Endocrinology Uzma Nieves, KAHLIL 10/31/2019 Refill Transplant Artur, Med Refill Maki, BO 09/26/2019 Telephone Endocrinology Jerri Mcdermott, KAHLIL 09/21/2019 Refill Transplant Artur, Med Refill Maki, BO 09/20/2019 Orders Only Endocrinology Uzma Nieves, KAHLIL 09/20/2019 Telephone Transplant Brown, RX REFILL Reque Darline M, [place] 09/19/2019 Telephone Transplant [place], Auth for MA Tacrolimus 09/14/2019 Orders Only Endocrinology Uzma Nieves, MA 09/12/2019 Telephone Transplant Artur, Welfare Check Maki, BO 09/11/2019 Office Visit Transplant Abdellatif, Mild persistent asthma Souleymane Luis MD with acute exacerbation Cinthia Ocampo, (Primary Dx) 09/06/2019 Telephone Transplant Jasmyn Angel [...] stimulating hormone (TSH) level 08/31/2019 Refill Transplant Luis Siddiqui Refill BO Gambino 08/09/2019 Documentation Transplant Maki Siddiqui RN after 08/01/2019 Immunizations Name Administration Dates Next Due FLUCELVAX [...] CALCANEUS ORIF; Surgeon: Fidencio Buckner MD; Location: [facility] OR; Service : Orthopedics; La terality: Left; Medical devices from this surgery are in t he Implants section. REPAIR, TENDON, ACHILLES 03/27/2018 Ankle/Left Procedu re: Left calcaneus excision, debrid ement of wound and achill es; Surgeon: Fidencio Buckner MD; Location: [facility] OR; Service : Orthopedics; La terality: Left; DEBRIDEMENT left heel for in fection 04/2018 w/ Dr Brayden guzman UMBILICAL HERNIA REPAIR 08/01/2016 - 07/31/2017 DIALYSIS FISTULA CREATION Left EXPLORATION, NECK, WITH 03/15/2019 Neck/N/A Procedur e: PARATHYROIDECTOMY PARATHYROIDECT LIONEL WITH FOREARM REIMPLAN TATION; Surgeon: William Maldonado MD; [facility]; Servic e: General; Laterality: N/A ; [...] with No / Unsure 07/07/2020 8:06 AM SUBGRADE TESTER someone who was confirmed or suspected to [...] Treatment Date Type Specialty Care Team Description 08/11/2020 Lab Lab Fang Sears MD [address] [place], [place] [address] [phone] 09/16/2020 Office Visit Endocrinology Onelia Bailey MD [address] [place], [place] [address] [phone] 10/07/2020 Lab Transplant Tre Stark MD [address] [facility] [address] [place], [place] [address] [phone] Health Maintenance Due Date Last Done Comments [...] Additional history exists Implants Implanted Type Area Chief Psychologist Device Shelf Model / Identifier Expiration Serial / Lot Date Becky Screw 6.5mm X 40mm X 16mm - [id number] IMPLANT Left: [employer] 07/12/2112 [id number] / Implanted: Qty: 1 on 02/23/2018 by Fidencio Buckner MD at [facility] Heel / LOT NA Becky Screw 6.5mm X 45mm X 16mm - [id number] [id number] IMPLANT Left: [employer] 07/12/2112 [id number] / Implanted: Qty: 1 on 02/23/2018 by Fidencio Buckner MD at [facility] [employer] Heel / LOT NA Meat Blender Mltpl Clip Ligaclip Ligtng 20 Clips 23.8cm Sm Ti - [id number] Surgical N/A: [facility] ENDO 12/30/2023 [id number] / Implanted: Qty: 3 on 03/15/2019 by Karli Maldonado MD at [facility] Implants; N/A SURGERY-ED / Expanders; [id number] Extenders; Surgical Wires Procedures Procedure Name Priority Date/Time Associated Diagnosis Comme nts DONOR SPECIFIC Routine 07/07/2020 9:45 Results f or ANTIBODY AM SUBGRADE TESTER this procedure are in the results section. ESTIMATED GFR Routine 07/07/2020 9:45 Results fo r AM SUBGRADE TESTER this procedure are in the results section. CYTOMEGALOVIRUS BY PCR Routine 07/07/2020 9:45 Other complica tion of Results for AM SUBGRADE TESTER kidney transplan t this procedure Kidney replaced by are in th e transplant results residential systemic section. steroid user Vitamin D defici ency Urinary tract infection without hematuria, site unspecified Screening for human immunodeficiency virus Other abnormal glucose FK506 TACROLIMUS Routine 07/07/2020 9:45 Other complication o f Results for LEVEL, RANDOM AM SUBGRADE TESTER kidney transplan t this procedure Kidney replaced by are in th e transplant results residential systemic section. steroid user Vitamin D defici ency Urinary tract infection without hematuria, site unspecified Screening for human immunodeficiency virus Other abnormal glucose VITAMIN D 25 HYDROXY Routine 07/07/2020 9:45 Other complicati on of Results for LEVEL AM SUBGRADE TESTER kidney transplan t this procedure Kidney replaced by are in th e transplant results keno terminal operator systemic section. steroid user Vitamin D defici ency Urinary tract infection without hematuria, site unspecified Screening for human immunodeficiency virus Other abnormal glucose IMMUNOGLOBULIN G Routine 07/07/2020 9:45 Other complication o f Results for AM SUBGRADE TESTER kidney transplan t this procedure Kidney replaced by are in th e transplant results keno terminal operator systemic section. steroid user Vitamin D defici ency Urinary tract infection without hematuria, site unspecified Screening for human immunodeficiency virus Other abnormal glucose PARATHYROID HORMONE Routine 07/07/2020 9:45 Other complicatio n of Results for AM SUBGRADE TESTER kidney transplan t this procedure Kidney replaced by are in th e transplant results keno terminal operator systemic section. steroid user Vitamin D defici ency Urinary tract infection without hematuria, site unspecified Screening for human immunodeficiency virus Other abnormal glucose CREATININE LEVEL, Routine 07/07/2020 9:45 Other complication of Results for URINE, RANDOM AM SUBGRADE TESTER kidney transplan t this procedure Kidney replaced by are in th e transplant results keno terminal operator systemic section. steroid user Vitamin D defici ency Urinary tract infection without hematuria, site unspecified Screening for human immunodeficiency virus Other abnormal glucose PROTEIN, URINE, RANDOM Routine 07/07/2020 9:45 Other complica tion of Results for AM SUBGRADE TESTER kidney transplan t this procedure Kidney replaced by are in th e transplant results keno terminal operator systemic section. steroid user Vitamin D defici ency Urinary tract infection without hematuria, site unspecified Screening for human immunodeficiency virus Other abnormal glucose BK VIRUS BY PCR Routine 07/07/2020 9:45 Other complication of Results for AM SUBGRADE TESTER kidney transplan t this procedure Kidney replaced by are in th e transplant results keno terminal operator systemic section. steroid user Vitamin D defici ency Urinary tract infection without hematuria, site unspecified Screening for human immunodeficiency virus Other abnormal glucose URINALYSIS SCREEN AND Routine 07/07/2020 9:45 Other complicat ion of Results for MICROSCOPY, WITH AM SUBGRADE TESTER kidney transpla nt this procedure REFLEX TO CULTURE Kidney replaced by are in the transplant results keno terminal operator systemic section. steroid user Vitamin D defici ency Urinary tract infection without hematuria, site unspecified Screening for human immunodeficiency virus Other abnormal glucose PHOSPHORUS LEVEL Routine 07/07/2020 9:45 Other complication o f Results for AM SUBGRADE TESTER kidney transplan t this procedure Kidney replaced by are in th e transplant results residential systemic section. steroid user Vitamin D defici ency Urinary tract infection without hematuria, site unspecified Screening for human immunodeficiency virus Other abnormal glucose MAGNESIUM LEVEL Routine 07/07/2020 9:45 Other complication of Results for AM SUBGRADE TESTER kidney transplan t this procedure Kidney replaced by are in th e transplant results residential systemic section. steroid user Vitamin D defici ency Urinary tract infection without hematuria, site unspecified Screening for human immunodeficiency virus Other abnormal glucose COMPREHENSIVE Routine 07/07/2020 9:45 Other complication of R esults for METABOLIC PANEL AM SUBGRADE TESTER kidney transplan t this procedure Kidney replaced by are in th e transplant results keno terminal operator systemic section. steroid user Vitamin D defici ency Urinary tract infection without hematuria, site unspecified Screening for human immunodeficiency virus Other abnormal glucose HC COMPLETE BLD COUNT Routine 07/07/2020 9:45 Other complicat ion of Results for W/AUTO DIFF AM SUBGRADE TESTER kidney transplan t this procedure Kidney replaced by are in th e transplant results residential systemic section. steroid user Vitamin D defici ency Urinary tract infection without hematuria, site unspecified Screening for human immunodeficiency virus Other abnormal glucose URINE CULTURE Routine 07/07/2020 9:45 Results fo r AM SUBGRADE TESTER this procedure are in the results section. [...] are in the kidney transplan t results keno terminal operator systemic section. steroid user Vitamin D defici ency Urinary tract infection without hematuria, site unspecified Screening for human immunodeficiency virus Other abnormal glucose VITAMIN D 25 HYDROXY Routine 01/15/2020 8:09 Kidney replaced by Results for LEVEL AM CDT transplant this procedure Other complication of are in the kidney transplan t results keno terminal operator systemic section. steroid user Vitamin D defici ency Urinary tract infection without hematuria, site unspecified Screening for human immunodeficiency virus Other abnormal glucose CYTOMEGALOVIRUS BY PCR Routine 01/15/2020 8:09 Kidney replace d by Results for AM CDT transplant this procedure Other complication of are in the kidney transplan t results keno terminal operator systemic section. steroid user Vitamin D defici ency Urinary tract infection without hematuria, site unspecified Screening for human immunodeficiency virus Other abnormal glucose HEMOGLOBIN A1C Routine 01/15/2020 8:09 Kidney replaced by Res ults for AM CDT transplant this procedure Other complication of are in the kidney transplan t results keno terminal operator systemic section. steroid user Vitamin D defici ency Urinary tract infection without hematuria, site unspecified Screening for human immunodeficiency virus Other abnormal glucose LIPID PANEL Routine 01/15/2020 8:09 Kidney replaced by Resul ts for AM CDT transplant this procedure Other complication of are in the kidney transplan t results keno terminal operator systemic section. steroid user Vitamin D defici ency Urinary tract infection without hematuria, site unspecified Screening for human immunodeficiency virus Other abnormal glucose PARATHYROID HORMONE Routine 01/15/2020 8:09 Kidney replaced b y Results for AM CDT transplant this procedure Other complication of are in the kidney transplan t results keno terminal operator systemic section. steroid user Vitamin D defici ency Urinary tract infection without hematuria, site unspecified Screening for human immunodeficiency virus Other abnormal glucose CREATININE LEVEL, Routine 01/15/2020 8:09 Kidney replaced by Results for URINE, RANDOM AM CDT transplant this procedure Other complication of are in the kidney transplan t results keno terminal operator systemic section. steroid user Vitamin D defici ency Urinary tract infection without hematuria, site unspecified Screening for human immunodeficiency virus Other abnormal glucose PROTEIN, URINE, RANDOM Routine 01/15/2020 8:09 Kidney replace d by Results for AM CDT transplant this procedure Other complication of are in the kidney transplan t results residential systemic section. steroid user Vitamin D defici ency Urinary tract infection without hematuria, site unspecified Screening for human immunodeficiency virus Other abnormal glucose URINALYSIS SCREEN AND Routine 01/15/2020 8:09 Kidney replaced by Results for MICROSCOPY, WITH AM CDT transplant this procedure REFLEX TO CULTURE Other complication of a re in the kidney transplan t results residential systemic section. steroid user Vitamin D defici ency Urinary tract infection without hematuria, site unspecified Screening for human immunodeficiency virus Other abnormal glucose PHOSPHORUS LEVEL Routine 01/15/2020 8:09 Kidney replaced by R esults for AM CDT transplant this procedure Other complication of are in the kidney transplan t results keno terminal operator systemic section. steroid user Vitamin D defici ency Urinary tract infection without hematuria, site unspecified Screening for human immunodeficiency virus Other abnormal glucose MAGNESIUM LEVEL Routine 01/15/2020 8:09 Kidney replaced by Re sults for AM CDT transplant this procedure Other complication of are in the kidney transplan t results residential systemic section. steroid user Vitamin D defici ency Urinary tract infection without hematuria, site unspecified Screening for human immunodeficiency virus Other abnormal glucose COMPREHENSIVE Routine 01/15/2020 8:09 Kidney replaced by Resu lts for METABOLIC PANEL AM CDT transplant this procedure Other complication of are in the kidney transplan t results residential systemic section. steroid user Vitamin D defici ency Urinary tract infection without hematuria, site unspecified Screening for human immunodeficiency virus Other abnormal glucose HC COMPLETE BLD COUNT Routine 01/15/2020 8:09 Kidney replaced by Results for W/AUTO DIFF AM CDT transplant this procedure Other complication of are in the kidney transplan t results keno terminal operator systemic section. steroid user Vitamin D defici [...] Routine 09/11/2019 8:41 Results fo r AM SUBGRADE TESTER this procedure are in the results section. FK506 TACROLIMUS Routine 09/11/2019 8:41 Other complication o f Results for LEVEL, RANDOM AM SUBGRADE TESTER kidney transplan t this procedure Kidney replaced by are in th e transplant results keno terminal operator systemic section. steroid user Vitamin D defici ency Urinary tract infection without hematuria, site unspecified Screening for human immunodeficiency virus Other abnormal glucose CYTOMEGALOVIRUS BY PCR Routine 09/11/2019 8:41 Other complica tion of Results for AM SUBGRADE TESTER kidney transplan t this procedure Kidney replaced by are in th e transplant results keno terminal operator systemic section. steroid user Vitamin D defici ency Urinary tract infection without hematuria, site unspecified Screening for human immunodeficiency virus Other abnormal glucose CREATININE LEVEL, Routine 09/11/2019 8:41 Other complication of Results for URINE, RANDOM AM SUBGRADE TESTER kidney transplan t this procedure Kidney replaced by are in th e transplant results residential systemic section. steroid user Vitamin D defici ency Urinary tract infection without hematuria, site unspecified Screening for human immunodeficiency virus Other abnormal glucose PROTEIN, URINE, RANDOM Routine 09/11/2019 8:41 Other complica tion of Results for AM SUBGRADE TESTER kidney transplan t this procedure Kidney replaced by are in th e transplant results residential systemic section. steroid user Vitamin D defici ency Urinary tract infection without hematuria, site unspecified Screening for human immunodeficiency virus Other abnormal glucose BK VIRUS BY PCR Routine 09/11/2019 8:41 Other complication of Results for AM SUBGRADE TESTER kidney transplan t this procedure Kidney replaced by are in th e transplant results keno terminal operator systemic section. steroid user Vitamin D defici ency Urinary tract infection without hematuria, site unspecified Screening for human immunodeficiency virus Other abnormal glucose URINALYSIS SCREEN AND Routine 09/11/2019 8:41 Other complicat ion of Results for MICROSCOPY, WITH AM SUBGRADE TESTER kidney transpla nt this procedure REFLEX TO CULTURE Kidney replaced by are in the transplant results residential systemic section. steroid user Vitamin D defici ency Urinary tract infection without hematuria, site unspecified Screening for human immunodeficiency virus Other abnormal glucose PHOSPHORUS LEVEL Routine 09/11/2019 8:41 Other complication o f Results for AM SUBGRADE TESTER kidney transplan t this procedure Kidney replaced by are in th e transplant results keno terminal operator systemic section. steroid user Vitamin D defici ency Urinary tract infection without hematuria, site unspecified Screening for human immunodeficiency virus Other abnormal glucose MAGNESIUM LEVEL Routine 09/11/2019 8:41 Other complication of Results for AM SUBGRADE TESTER kidney transplan t this procedure Kidney replaced by are in th e transplant results residential systemic section. steroid user Vitamin D defici ency Urinary tract infection without hematuria, site unspecified Screening for human immunodeficiency virus Other abnormal glucose COMPREHENSIVE Routine 09/11/2019 8:41 Other complication of R esults for METABOLIC PANEL AM SUBGRADE TESTER kidney transplan t this procedure Kidney replaced by are in th e transplant results keno terminal operator systemic section. steroid user Vitamin D defici ency Urinary tract infection without hematuria, site unspecified Screening for human immunodeficiency virus Other abnormal glucose HC COMPLETE BLD COUNT Routine 09/11/2019 8:41 Other complicat ion of Results for W/AUTO DIFF AM SUBGRADE TESTER kidney transplan t this procedure Kidney replaced by are in th e transplant results residential systemic section. steroid user Vitamin D defici ency Urinary tract infection without hematuria, site unspecified Screening for human immunodeficiency virus Other abnormal glucose URINE CULTURE Routine 09/11/2019 8:41 Results fo r AM SUBGRADE TESTER this procedure are in the results section. EXTRA SERUM SPECIMEN Routine 09/03/2019 8:23 Res ults for AM SUBGRADE TESTER this procedure are in the results section. 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 PHOSPHORUS LEVEL Routine 09/03/2019 8:23 Uncontrolled type 2 Results for AM SUBGRADE TESTER diabetes mellitus with this procedure nephropathy (HCC) are in the results section. CBC WITH PLATELET AND Routine 09/03/2019 8:23 Uncontrolled ty pe 2 Results for DIFFERENTIAL AM SUBGRADE TESTER diabetes mellitus with this procedure nephropathy (HCC) are in the results section. COMPREHENSIVE Routine 09/03/2019 8:23 Uncontrolled type 2 Res ults for METABOLIC PANEL AM SUBGRADE TESTER diabetes mellitus with th is procedure nephropathy (HCC) are in the results section. HEMOGLOBIN A1C Routine 09/03/2019 8:23 Uncontrolled type 2 Re sults for AM SUBGRADE TESTER diabetes mellitus with this procedure nephropathy (HCC) are in the results section. FRUCTOSAMINE Routine 09/03/2019 8:23 Uncontrolled type 2 Resu lts for AM SUBGRADE TESTER diabetes mellitus with this procedure nephropathy (HCC) are in the results section. after 08/01/2019 Results Urinalysis screen and microscopy, with reflex to culture (07/07/2020 9:45 AM SUBGRADE TESTER)Only the most recent of4 resultswithin the time period is included. Specimen site Clean catch [facility] Color, UA Straw [facility] Appearance, UA Clear [facility] Specific gravity, UA 1.010 1.001 - 1.035 [facility] pH, UA 6.0 5.0 - 8.5 [facility] Protein, UA Negative Negative [facility] Glucose, UA Negative Negative [facility] Ketones, UA Negative Negative [facility] Bilirubin, UA Negative Negative [facility] Blood, UA Negative Negative [facility] Nitrite, UA Negative Negative [facility] Urobilinogen, UA <2.0 <2.0 [facility] Leukocyte esterase, Negative Negative [facility] Epithelial cells, UA <1 /HPF [facility] Round epithelial <1 0 - 1 /HPF [facility] cells, [facility] WBC, UA 1 0 - 4 /HPF [facility] RBC, UA 1 0 - 5 /HPF [facility] Bacteria, UA Few None seen [facility] Yeast, UA None seen [facility] Yeast with None seen [facility] pseudohyphae, [facility] Specimen Urine Performing Organization Address City/[facility] Phon e Number [facility] DEPARTMENT OF PATHOLOGY AND [address] [place] [address] [address] Estimated GFR (07/07/2020 9:45 AM SUBGRADE TESTER)Only the most recent of4 resultswithin the time period is included. Estimated GFR 27 (A) mL/min/1.73 [facility] Comment: m2 HOSPITAL Catergory Units Interpretation [...] in 2014. Specimen Plasma Performing Organization Address City/[facility] Phon e Number [facility] DEPARTMENT OF PATHOLOGY AND [address] [place] [address] Cytomegalovirus by PCR (07/07/2020 9:45 AM SUBGRADE TESTER)Only the most recent of3 results within the time period is included. Cytomegalovirus by PCR <300 (A) Not-Detected [facility] IU/mL [facility] Cytomegalovirus by PCR See link [facility] below for PDF HOSPITAL Lab ReportComment : Specimen Plasma Performing Organization Address City/[facility] Phon e Number [facility] DEPARTMENT OF PATHOLOGY AND [address] Donor specific antibody (07/07/2020 9:45 AM SUBGRADE TESTER)Only the most recent of2 resultswithin the time period is included. DSA serum ID [id number] [facility] DSA serum collection 07/07/2020 09:45 [facility] D&T [facility] DSA class I antibody B49,A32,B13,B60,B [facility] assignment 51,B57,B61,A25,B3 HOSPITAL 8,B63,A23,B37,B58 ,B59,B27,B47,B7,B 81,B44,B53,B77,A2 4,B52,B48,B50,B45 ,B41,B73 DSA antibody I NONE [facility] DSA cPRA class I 89 [facility] DSA class II Negative [facility] DSA antibody II NONE [facility] DSA cPRA class II 0 [facility] Donor specific See link below [facility] antibody for PDF Lab HOSPITAL Report Specimen Blood Performing Organization Address City/[facility] Phon e Number [facility] DEPARTMENT OF PATHOLOGY AND [address] [place] [address] BK virus by PCR (07/07/2020 9:45 AM SUBGRADE TESTER)Only the most recent of2 resultswithin the time period is included. Pathologist Sig nature BK virus PCR Not-Detected Not-Detected [facility] copies/mL [facility] BK virus PCR See link below [facility] for PDF Lab HOSPITAL ReportComment: Specimen Plasma Performing Organization Address City/[facility] Phon e Number [facility] DEPARTMENT OF PATHOLOGY AND [address] [place] [address] [id number] Tacrolimus level, random (07/07/2020 9:45 AM SUBGRADE TESTER)Only the most recent of3 resultswithin the time period is included. Pathologist [facility] FK506 level 10.2 ng/mL [facility] Comment: HOSPITAL Therapeutic range 5-20 ng/mL for 12 hour trough. The r jesus varies depending on the organ transplanted, time after transplantation and co-administered immunosuppressant therapies. Please use clinical judgment to interpret test result. Test performed using [employer] chemiluminescent microparticle immunoassay for Tacrolimus on the LocalGuiding ECT i System. Specimen Blood Performing Organization Address City/[facility] Phon e Number [facility] DEPARTMENT OF PATHOLOGY AND [address] [place] [address] [address] Protein, urine, random (07/07/2020 9:45 AM SUBGRADE TESTER)Only the most recent of3 results within the time period is included. Pathologist Sig nature Protein, urine random 13 mg/dL [facility] Specimen Urine Performing Organization Address [facility] Phon e Number [facility] DEPARTMENT OF PATHOLOGY AND [address] [place] [address] [address] [address] Creatinine level, urine, random (07/07/2020 9:45 AM SUBGRADE TESTER)Only the most recent of 3 resultswithin the time period is included. Pathologist Sig nature Creatinine, urine, 48 mg/dL [facility] Specimen Urine Performing Organization Address [facility] Phon e Number [facility] DEPARTMENT OF PATHOLOGY AND [address] [place] [address] [address] Vitamin D 25 hydroxy level (07/07/2020 9:45 AM SUBGRADE TESTER)Only the most recent of3 resultswithin the time period is included. Vitamin D, 60.7 30.0 - 150.0 [facility] 25-hydroxy Comment: ng/mL HOSPITAL This assay [...] alternative methods. Specimen Blood Performing Organization Address City/[facility] Phon e Number [facility] DEPARTMENT OF PATHOLOGY AND [address] [place] [address] [address] [address] CBC with platelet and differential (07/07/2020 9:45 AM SUBGRADE TESTER)Only the most recent of6 resultswithin the time period is included. WBC 4.05 (L) 4.50 - 11.00 [facility] k/uL HOSPITAL RBC 3.82 (L) 4.20 - 5.50 [facility] m/uL [facility] HGB 11.1 (L) 12.0 - 16.0 [facility] g/dL [facility] HCT 36.2 (L) 37.0 - 47.0 % [facility] MCV 94.8 82.0 - 100.0 [facility] MCH 29.1 27.0 - 34.0 pg [facility] MCHC 30.7 (L) 31.0 - 37.0 [facility] g/dL [facility] RDW - SD 43.4 37.0 - 55.0 fL [facility] MPV 10.6 8.8 - 13.2 fL [facility] Platelet count 216 150 - 400 k/uL [facility] Nucleated RBC 0.00 /100 WBC [facility] Neutrophils 80.3 (H) 39.0 - 69.0 % [facility] Lymphocytes 10.6 (L) 25.0 - 45.0 % [facility] Monocytes 7.9 0.0 - 10.0 % [facility] Eosinophils 0.5 0.0 - 5.0 % [facility] Basophils 0.2 0.0 - 1.0 % [facility] Immature granulocytes 0.5Comment: 0.0 - 1.0 % [facility] "Immature HOSPITAL granulocytes" (promyelocytes , myelocytes, metamyelocytes ) Specimen Plasma Performing Organization Address City/[facility] Phon e Number [facility] DEPARTMENT OF PATHOLOGY AND [address] [place] [address] [address] [address] Urine culture (07/07/2020 9:45 AM SUBGRADE TESTER)Only the most recent of4 resultswithin the time period is included. Pathologist Sig nature Urine culture SEE COMMENTComment: [facility] Bacteriuria screen HOSPITAL negative. Specimen Performing Organization Address [facility] Phon e Number [facility] DEPARTMENT OF PATHOLOGY AND [address] [place] [address] [address] [address] Phosphorus level (07/07/2020 9:45 AM SUBGRADE TESTER)Only the most recent of6 resultswithin the time period is included. Pathologist Sig nature Phosphorus 4.4 2.4 - 4.5 mg/dL [facility] L Specimen Plasma Performing Organization Address [facility] Phon e Number [facility] DEPARTMENT OF PATHOLOGY AND [address] [place] [address] [place] [address] Parathyroid hormone (07/07/2020 9:45 AM SUBGRADE TESTER)Only the most recent of4 results within the time period is included. Pathologist Sig nature PTH 34 15 - 65 pg/mL [facility] Specimen Blood Performing Organization Address [facility] Phon e Number [facility] DEPARTMENT OF PATHOLOGY AND [address] [place] [address] Magnesium level (07/07/2020 9:45 AM SUBGRADE TESTER)Only the most recent of4 resultswithin the time period is included. Pathologist Sig nature Magnesium 1.9 1.6 - 2.4 mg/dL [facility] L Specimen Plasma Performing Organization Address [facility] Phon e Number [facility] DEPARTMENT OF PATHOLOGY AND [address] [place] [address] [address] [address] Immunoglobulin G (07/07/2020 9:45 AM SUBGRADE TESTER) Pathologist Sig nature IgG 923 700 - 1,600 mg/dL [facility] SOTO Specimen Plasma Performing Organization Address [facility] Phon e Number [facility] DEPARTMENT OF PATHOLOGY AND [address] [place] [address] 0 [facility] [address] [place] [address] Comprehensive metabolic panel (07/07/2020 9:45 AM SUBGRADE TESTER)Only the most recent of6 resultswithin the time period is included. Pathologist [facility] Sodium 141 135 - 148 [facility] mEq/L [facility] Potassium 4.1 3.5 - 5.0 [facility] mEq/L [facility] Chloride 102 98 - 112 [facility] mEq/L [facility] CO2 26 24 - 31 mEq/L [facility] Anion gap 13@ANIO 7 - 15 mEq/L [facility] BUN 37 (H) 8 - 23 mg/dL [facility] Creatinine 1.92 (H) 0.50 - 0.90 [facility] mg/dL [facility] Glucose 116 (H) 65 - 99 mg/dL [facility] Calcium 10.2 8.8 - 10.2 [facility] mg/dL [facility] Protein 7.3 6.3 - 8.3 [facility] Comment: g/dL HOSPITAL - 4.6-7.0 g/dL 1 week 4.4-7.6 g/dL 7 months-1year 5.1-7.3 g/dL 1-2 years 5.6-7.5 g/dL >3 years 6.0-8.0 g/dL 18-150 6.3-8.3 g/dL Albumin 4.4 3.5 - 5.0 [facility] g/dL [facility] A/G ratio 1.5 0.7 - 3.8 [facility] Alkaline phosphatase 57 35 - 104 U/L [facility] AST 22 10 - 35 U/L [facility] ALT 21 5 - 50 U/L [facility] Total bilirubin 0.4 0.0 - 1.2 [facility] mg/dL [facility] Specimen Plasma Performing Organization Address City/State/ZIP Code Phon e Number [facility] DEPARTMENT OF PATHOLOGY AND [address] [place], [place] [address] [address] Microalbumin / creatinine urine ratio (04/03/2020 9:35 AM CDT) Pathologist [facility] Creatinine, 69 20 - 275 [facility] urine, random mg/dL [facility] Microalbumin, 6.6 See Note: [facility] urine Comment: mg/dL [facility] Reference Range: Reference Range Not established Microalbumin/cre 96 (H) <30 mcg/mg [facility] atinine ratio Comment: creat [place] The ADA defines abnormalities in albumin excretion [...] Performing Organization Information: Site ID: RGA Name: [facility] Address: [address] [place] [phone] Director: Jake Guillen Performing Organization Address City/[facility] [place] [address] Thyroid stimulating hormone (04/03/2020 9:35 AM CDT)Only the most recent of2 resultswithin the time period is included. Pathologist Sig nature TSH 4.05 0.40 - 4.50 mIU/L [facility] Specimen Blood Narrative Performed At FASTING:YES [facility] FASTING: YES Resulting Agency Comment Performing Organization Information: Site ID: RGA Name: [facility] Address: [address] [place] [phone] Director: Jake Guillen Performing Organization Address [facility] Phon e Number [employer] [place] [address] T4, free (04/03/2020 9:35 AM CDT) Pathologist Sig nature T4, free 1.2 0.8 - 1.8 ng/dL [facility] Specimen Blood Narrative Performed At FASTING:YES [facility] FASTING: YES Resulting Agency Comment Performing Organization Information: Site ID: RGA Name: [facility] Address: [address] [place] [phone] Director: Jake Guillen Performing Organization Address [facility] Phon e Number [employer] [place] [address] Lipase level (04/03/2020 9:35 AM CDT) Pathologist Sig nature Lipase 29 7 - 60 U/L [facility] [place] Specimen Blood Narrative Performed At FASTING:YES [facility] FASTING: YES Resulting Agency Comment Performing Organization Information: Site ID: JOVI Name: Rima Leary Address: [address] [place] [phone] Director: Jake Guillen Performing Organization Address [facility] Phon e Number [employer] [place] [address] Hemoglobin A1c (04/03/2020 9:35 AM CDT)Only the [...] Agency Comment Performing Organization Information: Site ID: JOVI Name: [facility] Address: [address] [place] [phone] Director: Jake Guillen Performing Organization Address [facility] [place] [address] Amylase level (04/03/2020 9:35 AM CDT) Pathologist Sig nature Amylase 57 21 - 101 U/L [facility] Specimen Blood Narrative Performed At FASTING:YES [facility] FASTING: YES Resulting Agency Comment Performing Organization Information: Site ID: JOVI Name: [facility] Address: [address] [place] [phone] Director: Jake Guillen Performing Organization Address [facility] Phon e Number [employer] [place] [address] Lipid panel (04/03/2020 9:35 AM CDT)Only the most recent of2 resultswithin the time period is included. Cholesterol, total 80 <200 mg/dL [facility] HDL cholesterol 36 (L) > OR = 50 [facility] mg/dL [facility] Triglycerides 70 <150 mg/dL [facility] [place] LDL cholesterol 29 mg/dL (calc) [facility] calculated Comment: [facility] Reference range: <100 Desirable range <100 mg/dL for primary prevention; <70 mg/dL for patients with CHD or diabetic patients with > or = 2 CHD risk factors. LDL-C is now calculated using the Myranda calculation, which is a validated novel method providi ng better accuracy than the Friedewald equation in the estimation of LDL-C. Franklin SS et al. NIRAJ. 2013;310(19): 1447-1158 (http://education.Ruckus/faq/SEU096) Cholesterol/HDL 2.2 <5.0 (calc) [facility] ratio [facility] Non-HDL cholesterol 44 <130 mg/dL [facility] Comment: (calc) [facility] For patients with diabetes plus 1 major ASCVD risk factor, treating to a non-HDL-C goal of <100 mg/dL (LDL-C of <70 mg/dL) is considered a therapeutic option. Specimen Blood Narrative Performed At FASTING:YES [facility] FASTING: YES Resulting Agency Comment Performing Organization Information: Site ID: RGA Name: [facility] Address: [address] [place] [phone] Director: Jake Guillen Performing Organization Address [facility] [place] [address] POC glucose (11/25/2019 4:08 PM CDT)Only the most recent of7 resultswithin the time period is included. Pathologist Sig nature POC glucose 265 (H) 65 - 99 mg/dL [facility] Comment: [facility] Corporate Relations Director Name: Aldo Parrish Device ID: [id number] Specimen Blood Performing Organization Address City/[facility]/ZIP [facility] Phon e Number [facility] DEPARTMENT OF PATHOLOGY AND [address] [place] [address] [place] [address] [facility] [address] [place] [address] [facility] XR Abdomen 2 Vw Ap W Upright [...] the abdomen. Vascular calcifications are see n. HMRM-PRALEYDIS Procedure Note Interface, Radiology Results Incoming - [...] the abdomen. Vascular calcifications are see n. RM-PRAJKS Performing Organization Address City/State/ZIP Code Phon e Number [facility] [address] [place] [address] [place] Renal (11/24/2019 2:21 PM CDT) Specimen [...] is distended. IMPRESSION: Normal renal transplant ultrasound. [id number] Procedure Note Interface, Radiology Results Incoming - [...] is distended. IMPRESSION: Normal renal transplant ultrasound. [id number] Performing Organization Address City/State/ZIP Code Phon e Number [facility] [address] [place] [address] XR Abdomen 1 Vw Portable (11/23/2019 8:36 PM CDT) Specimen Narrative Performed At EXAMINATION: XR ABDOMEN 1 VW PORTABLE [facility] CLINICAL HISTORY: Abd pain unspecifi ed COMPARISON: 05/01/2015 IMPRESSION: 1.Moderate retained stool mainly in the transverse col on and right colon. There is paucity of bowel gas at the rectum. No significant small bowel dilatation noted. RM-PRACWL Procedure Note Interface, Radiology Results Incoming - 11/23/2019 8:56 PM CDT EXAMINATION: XR ABDOMEN 1 VW PORTABLE CLINICAL HISTORY: Abd pain unspecified COMPARISON: 05/01/2015 IMPRESSION: 1.Moderate retained stool mainly in the transverse colon and right colon. There is paucity of bowel gas at the rectum. No significant small bowel dilatation noted. HMRM-PRACWL Performing Organization Address City/State/ZIP Code Phon e Number [facility] [address] [place] [address] Blood culture, aerobic & anaerobic (11/23/2019 6:20 PM CDT)Only the most recent of2 resultswithin the time period is included. Blood culture No growth after 5 days of incubation. [facility] isolate Comment: HOSPITAL Specimen Information Specimen Source: Blood Specimen Site: Hand Right Specimen Blood Performing Organization Address [facility] Phon e Number [facility] DEPARTMENT OF PATHOLOGY AND [address] [place], [place] [address] [facility] [address] [place] [address] Smear review (11/23/2019 6:05 PM CDT) Pathologist [facility] Platelet slide review Rex adequate [facility] Elliptocytes Occasional [facility] Specimen Performing Organization Address [facility] Phon e Number [facility] DEPARTMENT OF PATHOLOGY AND [address] [place] [address] [facility] [address] Prothrombin time with INR (11/23/2019 6:05 PM CDT) Pathologist [facility] Prothrombin time 14.1 11.5 - 14.5 [facility] sec [facility] INR 1.1 [facility] Comment: [facility] International Normalized Ratio (INR) is a [facility] monitoring tool for patients who are stable on oral anticoagulant therapy. An INR of 2.0-3.0 is suggested for deep vein thrombosis/pulmonary embolism. Specimen Blood Performing Organization Address [facility] Phon e Number [facility] DEPARTMENT OF PATHOLOGY AND [address] [place] [address] [facility] [address] B natriuretic peptide (11/23/2019 6:05 PM CDT) Pathologist [facility] scarlett BNP 479 (H) 0 - 100 pg/mL [facility] Specimen Blood Performing Organization Address [facility] Phon e Number [facility] DEPARTMENT OF PATHOLOGY AND [address] [place] [address] [facility] [address] [address] [place], [place] [address] HOSPITAL Lactic acid level (11/23/2019 6:05 PM CDT) Pathologist Sig nature Lactic acid 1.0 0.5 - 2.2 mmol/L [facility] Specimen Blood Performing Organization Address [facility] Phon e Number [facility] DEPARTMENT OF PATHOLOGY AND [address] [place] [address] [facility] [address] [address] [place], [place] [address] [facility] EXTRA SERUM SPECIMEN (09/03/2019 8:23 AM SUBGRADE TESTER) Pathologist Sig nature EXTRA SERUM SPECIMEN [facility] (Always message) [facility] Comment: AN EXTRA SPECIMEN WAS RECEIVED WITH NO TEST REQUESTED. THE SPECIMEN WILL BE MAINTAINED IN STORAGE IN CASE ADDITIONAL TESTING IS NEEDED. PLEASE CALL THE CLIENT SERVICE DEPARTMENT FOR FURTHER ASSISTANCE. Specimen Resulting Agency Comment Performing Organization Information: Site ID: IF Name: [facility] Address: [address] [place] [phone] Director: Krupa Hayes Performing Organization Address [facility] Code Phon e Number [facility] Fructosamine (09/03/2019 8:23 AM SUBGRADE TESTER) Pathologist Sig nature Fructosamine 430 (H) 205 - 285 umol/L [facility] Specimen Blood Resulting Agency Comment Performing Organization Information: Site ID: EZ Name: [facility], Address: [address] [place] [phone] Director: Anne Ruelas MD,PhD,MB A Performing Organization Address [facility] Phon e Number [facility] [address] [place] [address] [facility] [id number] after 08/01/2019 Insurance Payer Benefit Plan / Subscriber ID Effective Dates Phone Addre ss Type Group [facility] (WELLMED) [facility] DUAL [id number] 2020-Present HMO COMPLETE MEDICAID MEDICAID [id number] 2011-Present Med icaid ([place]) [place] [address] Advance Directives For more information, please contact: [phone] Type Date Recorded 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
--- OUTSIDE RECORDS SUMMARY | 2020-08-01 10:20 | XMS REPORT | Clinical Summary ---
:1955 Author Organization [facility] Address [address] [place] [address] Care Team Providers Name Role Phone Regan Fernandez MD Primary Care Provider [phone] Allergies No Known Allergies Medications Medication [...] Not on file Implants Implanted Type Area Bar Machine Operator Device Shelf Model / Identifier Expiration Serial / Date Lot Plate,Volar Dist Rad Va-Lcp 2-Clmn 2.4mm Ti 6h Hd/2h S haft Lt - [id number] Fracture/F Left: Wrist [employer] [id number] / Implanted: Qty: 1 on 01/03/2015 by Gabby Serrano MD at [facility] ixation / [id number] Screw,Locking Stardrive Ti Va 2.4x20mm - [id number] Fracture/F [employer] [id number] / Implanted: Qty: 4 on 01/03/2015 by Gabby Serrano MD at [facility] ixation / Screw,Cortex Ti Selftap 2.7x14 - [id number] Fracture/F SYNTHE S TRUMA [id number] / Implanted: Qty: 2 on 01/03/2015 by Gabby Serrano MD at [facility] ixation / Tiss Live Frm Strtce 6x16cm - Sn/A Tissue Right: [employer] 02/28/2018 [id number] / Implanted: Qty: 1 on 11/23/2016 by Giovanni Armendariz MD at [facility] Graft/Subs Abdomen N/A / titute [id number] Results Not on fileafter 08/01/2019 Insurance Payer Benefit Plan / Subscriber ID Effective Phone Address T ype Group Dates CARE IMPROVEMENT CARE IMPROVEMENT [id number] 2016-Prese MEDICARE MGD CARE PLUS nt MEDICAID MED[place] [id number] 2011-Prese Medicaid nt (Home) [place] [address] Advance Directives For more information, please contact: [phone] Code Status Date Activated Date Inactivated Comments Full Code 11/23/2016 9:56 PM 11/26/2016 1:41 PM This code status was determined by: Patient Full Code 01/03/2015 8:00 AM 01/03/2015 3:23 PM This code status was determined by: Patient
--- OUTSIDE RECORDS SUMMARY | 2020-08-01 10:22 | XMS REPORT | Continuity of Care Document ---
:1955 Author Organization [facility] t Address [facility] Sarabjit Dior [address] [place] [address] Care Team Providers Name Role Phone Regan Fernandez MD Primary Care Physician [phone] Artur SORIANO Attending Clinician Unavailable RENETTA Attending Clinician Unavailable Ezequiel GUILLORY Attending Clinician Unavailable Velasquez Bailey MD Attending Clinician Darius GUILLORY Attending Clinician Unavailable Sonu Stark MD Attending Clinician Minerva Attending Clinician Unavailable Stanley Attending Clinician Unavailable Oralia PILLAI Attending Clinician Asimqwimalejandro RODRIGUEZ Attending Clinician Sharron GUILLORY Attending Clinician Unavailable Doc Serrano MA Attending Clinician Unavailable Clementine GUILLORY Attending Clinician Unavailable Terrence PILLAI Attending Clinician RUTH ANN PATEL Attending Clinician Unavailable ORALIA Admitting Clinician Unavailable RUTH ANN PATEL Admitting Clinician Unavailable Payers Payer Name Policy Type Policy Number Effective Date Expiration Date S ource [facility] [id number] 2020 [place] MEDICARE(WEL 00:00:00 [facility] HANSED) [facility] DUAL COMPLETExxxx [id number] [id number] MEDICAIDMEDI [id number] [place] [id number] 00:00:00 [facility] -Pr esentMedicai d Problems Condition Condition Condition Status Onset Resolution Last Treating Co mments Source Name Details Category Date Date Treatment Clinician Date Open wound Open wound Disease Active 2019-08 [place] of left of left 0-20 [facility] foot foot 00:00: st 00 renal renal Disease Active 2019-08 [place] hyperparat hyperparat 0-20 Me thodi hyroidism hyroidism 00:00: st s/p s/p 00 subtotal subtotal parathyroi parathyroi dectomy dectomy 03/19,with 03/19,with postop postop hypocalcem hypocalcem ia ia Frequency Frequency Disease Active Char[facility] ston of of 4-24 [facility] urination urination 00:00: st 00 UTI UTI Disease Active [place] (urinary (urinary 4-24 Method i tract tract 00:00: st infection) infection) 00 Other Other Disease Active [place] constipati constipati 8-26 Me thodi on on 00:00: st 00 Immunosupp Immunosupp Disease Active H roxy ressive ressive 4- [facility] management management 00:00: st encounter encounter 00 following following 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 4-01 Me thodi hyroidism hyroidism 00:00: st 00 Preop Preop Disease Active [place] examinatio examinatio 4-01 Me thodi n n 00:00: st 00 Closed Closed Disease Active [place] displaced displaced 7-26 Meth sintia fracture fracture 00:00: st of of 00 tuberosity tuberosity of left of left calcaneus calcaneus Dehydratio Dehydratio Disease Active H roxy n n 5-31 Methodi 00:00: st 00 Primary Primary Disease Active [place] open angle open angle 5-29 Me thodi [...] (TSH) level level Renal Renal Disease Active [facility] St mass, mass, 4-25 [facility] right right 00:[facility]: Medical 00 Center 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 00:00: st retinopath retinopath 00 y y associated associated with type with 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 Essential Essential Disease Active [facility] ston hypertensi hypertensi 1-24 Me [facility] on on 00:00: st 00 Mixed Mixed Disease Active [place] hyperlipid hyperlipid 1-24 Me thodi emia emia 00:00: st 00 Non morbid Non morbid Disease Active H roxy obesity obesity 1-24 Methodi due to due to 00:00: st excess excess 00 calories calories Osteopenia Osteopenia Disease Active H roxy 1-24 Methodi 00:00: st 00 Kidney Kidney Disease Active [place] transplant transplant 1-24 Me thodi recipient recipient [...] function study study Obesity Obesity Disease Active [place] due to due to 9 [facility]i excess excess 00:00: st calories calories 00 without without serious serious comorbidit comorbidit y y Essential Essential Disease Active [facility] ston (primary) (primary) 04-13 Meth sintia hypertensi hypertensi 00:00: st on on 00 Diabetic Diabetic Disease Active [place] neuropathy neuropathy 04-13 Me thodi associated associated 00:00: st with type with type 00 2 diabetes 2 diabetes mellitus mellitus Encounter Encounter Disease Active [facility] ston for for 04-13 Method[facility] aftercare aftercare 00:00: [...] Date Stop Date Source [facility] Social History Social Habit Start Date Stop Date Quantity Comments Source Sex Assigned At [facility] ethodist Exposure to Not sure [place] Metho dist SARS-CoV-2 (event) Tobacco use and 2019-03-19 2019-03-19 Never used [facility] ethodist exposure 00:00:00 00:00:00 Alcohol intake 2019-03-19 2019-03-19 Current [facility] thodist 00:00:00 00:00:00 non-drinker of alcohol (finding) Smoking Status Start Date Stop Date Source Never smoker [place] Methodis t Medications Ordered Filled Start Stop Current Ordering Indication Dosage Frequency Signature Comments Components Source Medication Medication Date Date Medication? Clinician (SIG) Name Name predniSONE 2019-08- Yes prevention 5mg QD Take 1 [place] (DELTASONE) 2-30 12-30 of kidney tablet (5 Methodi 5 mg tablet 00:00: 23:59 transplant mg total) st 00 :00 rejection by mouth daily .prevent kidney transplant rejection. tacrolimus 2019-08- Yes prevention 1.5mg Q.5D Take 3 [place] (PROGRAF) 2-08 12-08 of kidney capsules Methodi 0.5 MG 00:00: 23:59 transplant (1.5 mg s t capsule 00 :00 rejection total) by mouth 2 (two) times a day .prevent kidney transplant rejection. DOSE CHANGE! tacrolimus 2019-08- No prevention 1.5mg Q.5D Take 3 [place] (PROGRAF) 2-08 12-08 of kidney capsules Methodi 0.5 MG 00:00: [...] blood sugar 2019-08 [facility] Patient is Met hodi strips 00:00: testing st (glucose 00 QID. blood) Please strip test match to strips machine. Insupen 31 2019-08 Yes Use 5 [place] gauge x 1-02 veces al Methodi 5/16" 00:00: venkatesh (Use 5 st needle 00 times daily) denosumab 2019-08- No Steroid-ind 60mg [place] (PROLIA) 0-20 10-20 uced Methodi syringe 60 17:30: 17:[address] mg 00 :00 s guaiFENesin 2019-08 Yes 600mg Q12H Take 600 [facility] (MUC[facility]EX[facility] 0-20 mg by Methodi 600 mg 13:37: mouth st tablet 10 every 12 extended (twelve) release hours. 12hr insulin 2019-08 Yes 4U QD Inject 4 [place] lispro 0-20 Units Methodi (HumaLOG) 13:37: under the st 100 unit/mL 10 skin injection Medrol Dose Pack Scheduling ONLY. 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 for auth issues calcium 2020- No 500mg Q.25D Chew 1 [place] carbonate 02-18 tablet Methodi (TUMS) 200 00:00: 23:59 ([address] mg calcium 00 :00 total) 4 (500 mg) (four) chewable times a tablet day. carvediloL 2020- No 12.5mg Q.5D Take 1 [place] (COREG) 02-18 tablet Methodi 12.5 MG 00:00: 23:59 (12.[address] tablet 00 :00 total) by mouth 2 (two) times a day with meals. clonIDINE 2020- No .1mg Q.[id number] Take 1 [place] (Catapres) 02-18 [id number] tablet Methodi 0.1 MG 00:00: 23:59 3D (0.[address] tablet 00 :00 total) by mouth 3 (three) times a day. magnesium 2020- No 64mg QD Take 1 [place] chloride 64 02-18 tablet (64 M ethodi mg 00:00: 23:59 mg total) st tablet,fermin 00 :00 by mouth yed release daily. (DR/EC) tablet omeprazole No 40mg QD Take 1 [place] (PriLOSEC) 02-12 capsule Metho di 40 MG 00:00: 23:59 ([address] capsule 00 :00 total) by mouth daily. calcium 2019- No 500mg Q.25D Chew 1 [place] carbonate 01-21 tablet Method[facility] (TUMS) 200 00:00: 00:00 ([address] mg calcium 00 :00 total) 4 (500 mg) (four) chewable times a tablet day. calcitrioL 2019- No hypocalcemi 1ug QD Take 2 [place] (ROCALTROL) 01-21 a capsules Met hodi 0.5 MCG 00:00: 00:00 ([address] capsule 00 :00 total) by mouth daily .low amount of calcium in the blood. Cetirizine Cetirizine 2019- Yes Na Long [address] HCl HCl 01-20 Orally [facility] - 00:00: Once a day [facility] 00 l [facility] insulin 2019-2019- No 3U QD Inject 3 [place] lispro 11-25 Units Methodi (HumaLOG) 12:04: 00:[address] 100 unit/mL 18 :00 skin injection daily. Take with breakfast insulin NPH 2019- No 20U QD Inject 20 [place] (HumuLIN-N) 11-25 Units Method i 100 unit/mL 12:04: 00:[address] injection 18 :00 skin daily before breakfast. insulin 2019-0 Yes 3U Q.[id number] Inject 3 [place] lispro 11-25 [id number] Units Method i (HumaLOG) 00:00: 3D under the st 100 unit/mL 00 skin 3 injection (three) times a day before meals. On sliding scale insulin NPH 2019- Yes 20 units [place] (HumuLIN-N) 11-25 in AM Methodi 100 unit/mL 00:00: st injection 00 ciprofloxac 2019- No 500mg Q.5D Take 1 [place] in (Cipro) 11-24 05- tablet Method i 500 MG 00:00: 23:59 ([address] tablet 00 :00 total) by mouth 2 (two) times a day for 5 days. fluticasone 2019-2019- No 2{spray QD 2 sprays [place] propionate 11-22 } by Each Metho di (FLONASE) 15:23: 00:00 Nare route s t 50 28 :00 daily. mcg/actuati on nasal spray ciprofloxac 2019-2019- No 500mg QD Take 1 [place] in (Cipro) 11-18 tablet Method i 500 MG 00:00: 23:59 ([address] tablet 00 :00 total) by mouth every morning for 7 days. blood-gluco 2019- Yes DX E11.65 [place] se meter 11-05 Patient is Metho di misc 00:00: testing st 00 QID. Please match machine to insurance. blood sugar 2019- No DX E11.65 [place] diagnostic 11-05 Patient is Me thodi strips 00:00: 00:[address] (glucose 00 :00 QID. blood) Please strip test match to strips machine. lancets 33 2019- No DX E11.65 [place] gauge misc 11-05 Patient is Me thodi 00:00: 00:[address] 00 :00 QID. Please match to machine. doxycycline 2019- No 100mg Q.5D Take 1 Jaswant harris (ADOXA) 100 10-3015 tablet Metho di MG tablet 00:00: 23:59 ([address] 00 :00 total) by mouth 2 (two) times a day for 14 days. Para la infeccion de la herida del pie simvastatin No 20mg QD Take 1 [facility] st[place] (ZOCOR) 20 09-21- tablet (20 Me thodi MG tablet 00:00: 23:59 mg total) st 00 :00 by mouth nightly. mycophenola No 500mg Q.5D Take 1 Jaswant harris te 09-21 tablet Methodi (CELLCEPT) 00:00: 23:59 [...] twice a day insulin 2019- No 3U Q.[id number] Inject 3-4 [place] ASPART 09-2020 [id number] Units Metho di (NovoLOG 14:26: 00:[address] Flexpen 59 :00 skin 3 U-100 (three) Insulin) times a 100 unit/mL day with (3 mL) meals. insulin pen insulin Yes inyecte 8 [place] ASPART 220 unidades Methodi (NovoLOG 00:00: bajo de la st Flexpen 00 piel con U-100 desayuno, Insulin) 12 100 unit/mL unidades (3 mL) antes del insulin pen almuerzo y la lydia y mas unidades heidy escala movil. linaGLIPtin 2019- No 5mg QD Take 1 [place] [facility] (TRADJENTA) 09-1424 tablet (5 Me thodi 5 mg tablet 00:00: 00:00 mg total) st 00 :00 by mouth daily. albuterol No 180ug Q4H Inhale 180 [place] sulfate 90 09-12 mcg every Met hodi mcg/actuati 00:00: 23:59 4 (four) s t on aerosol 00 :00 [phone] breath 91 for activated auth - Maki SORIANO azithromyci 2019- No Take 2 [place] ston n 09-11 tablets Methodi (ZITHROMAX 00:00: 23:59 (500 mg) st Z-CAMERON) 250 00 :00 on Day 1, MG tablet followed by 1 tablet (250 mg) once daily on Days 2 through 5. albuterol 2019- No acute .63mg Q.28450302 Take 3 mL [place] (ACCUNEB) 09-1112 asthma [id number] (0.63 mg Methodi 0.63 mg/3 00:00: 00:00 attack 3D total) by st mL 00 :00 nebulizati nebulizer on 3 solution (three) times a day as needed for wheezing .asthma attack. pen needle, 2019- No 4{devic QD 4 Devices [place] diabetic 31 2 11-02 e} daily. Metho di gauge x 00:00: 00:00 st 5/16" 00 :00 needle liraglutide 2019- No 1.8mg QD Inject 0.3 [place] (VICTOZA 203 04-24 mL (1.8 mg Meth sintia 3-CAMERON) 0.6 00:00: 00:00 total) st mg/0.1 mL 00 :00 under the (18 mg/3 skin daily mL) pen with injector breakfast. megestrol 2020- No 40mg QD Take 1 [place] (MEGACE) 40 08-31 02-12 tablet (40 M ethodi MG tablet 00:00: 00:00 mg total) st 00 :00 by mouth daily .anorexia. predniSONE 2018-08- No prevention 5mg QD Take 1 [place] (DELTASONE) 09-26-30 of kidney tablet (5 Methodi 5 mg tablet 00:00: 00:00 transplant mg total) st 00 :00 rejection by mouth daily .prevent kidney transplant rejection. mycophenola 2018-08- No 500mg Q.5D Take 1 Ho steven te 09-26 tablet Methodi (CELLCEPT) 00:00: 00:00 [...] carvedilol 2020- No 12.5mg Q.5D Take 1 [place] (COREG) 04-16 tablet Methodi 12.5 MG 00:00: [...] mouth yed release daily. (DR/EC) tablet calcium 2019- No 500mg Q.70234914 Chew 1 [place] carbonate 04-16 [id number] tablet M ethodi (TUMS) 200 00:00: 00:00 3D ([address] mg calcium 00 :00 total) 3 (500 mg) (three) chewable times a tablet day. polyethylen 2019- No 17g QD Take 17 g [place] e glycol 04-16 by mouth Method i (MIRALAX) 00:00: 00:[address] 17 gram 00 :00 packet linaGLIPtin 2019- No 5mg QD Take 1 [place] (TRADJENTA) 04-06 tablet (5 Me thodi 5 mg tablet 00:00: 00:00 mg total) st 00 :00 by mouth daily. calcitriol 2019- No hypocalcemi .5ug QD Take 1 [place] (ROCALTROL) 04-05 a capsule Meth sintia 0.5 MCG 00:00: 00:00 (0.[address] capsule 00 :00 total) by mouth daily .low amount of calcium in the blood. senna 2020- No 1{tbl} QD Take 1 [place] (SENNA) 8.6 02-27 tablet by Me thodi mg tablet 00:00: 00:[address] 00 :00 daily. omeprazole 2019- No 40mg QD Take 1 [place] ton (PriLOSEC) 02-02 capsule Metho di 40 MG 00:00: 00:00 ([address] capsule 00 :00 total) by mouth daily. gabapentin Yes 100mg Q.[id number] Take 1 [place] (NEURONTIN) 01-25 [id number] capsule Methodi 100 mg 00:00: 3D ([address] capsule 00 total) by mouth 3 (three) times a day. tacrolimus 2019- No prevention 2mg Q.5D Take 2 [place] (PROGRAF) 1 11-02 of kidney capsules Methodi MG capsule 00:00: 00:00 transplant ([address] 00 :00 rejection total) by mouth 2 (two) times a day. DOSE CHANGE: 2mg twice a day simvastatin 2019- No 20mg QD Take 1 [place] (ZOCOR) 20 2- 02-21 tablet (20 Me thodi MG tablet 00:00: 00:00 mg total) st 00 :00 by mouth nightly. insulin NPH 2019- 10U QD Inject 10 [place] isoph U-100 08-28 11-05 Units Method i human 00:00: 00:[address] (HumuLIN N 00 :00 skin daily NPH Insulin before KwikPen) breakfast. 100 unit/mL (3 mL) megestrol No 40mg QD Take 1 [place] (MEGACE) 40 08-23 tablet (40 M ethodi MG tablet 00:00: 00:00 mg total) st 00 :00 by mouth daily. pen needle, 2017-08 Yes 1{piece Q.2D 1 Piece 5 [place] diabetic 31 2-21 } (five) Method i gauge x 00:00: times a st 1/4" needle 00 day. 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 mycophenola 2016- Yes Q.5D Take by [facility] te [...] 11:41: daily. Medica l 24 Center cloNIDine 2017-0 Yes .1mg Q.05762513 Take 0.[address] HCl 4-28 [id number] mg by [facility] - (CATAPRES) 11:41: 3D mouth 3 Medi michael 0.1 MG 24 (three) Center tablet times daily. omeprazole 2017- Yes 40mg QD Take [address] (PRILOSEC) 4-28 by mouth [facility] - 40 MG 11:41: daily. Medical capsule 24 Center simvastatin 2017 Yes 20mg QD Take [address] (ZOCOR) 20 4-28 by mouth [facility] - MG tablet 11:41: nightly. Medi michael 24 Center calcitriol 2016- Yes .25ug QD Take 0.[address] (ROCALTROL) 4-28 mcg by [facility] - 0.25 MCG 11:41: mouth Medical capsule 24 daily. [place] alendronate Yes 70mg Take [address] (FOSAMAX) -28 by mouth [facility] - 70 MG 11:41: every 7 Medical tablet 24 days Take Center in the morning with a full glass of water, on an empty stomach, and do not take anything else by mouth or lie down for the next 30 min. . gabapentin Yes 100mg Q.[id number] Take [address] (NEURONTIN) -28 [id number] mg by L ukes - 100 MG 11:41: 3D mouth 3 Medical capsule 24 (three) Center times daily. insulin NPH Yes 22U Inject [address] 100 unit/mL 4-28 Units [facility] - (3 mL) InPn 11:41: subcutaneo Medical 24 usly every Center morning before breakfast . insulin 2017-0 Yes 8U Inject [address] aspart [...] [facility] - (Isophane) (Isophane) Mem [facility]ria l [facility] Prilosec Prilosec Yes Na Long not [facility] defined [facility] - [facility] Omeprazole Omeprazole Yes Na Long [address] 30 minutes [facility] - before Memoria morning l meal [facility] Gabapentin Gabapentin Yes Na Long [address] [facility] Prolia Prolia Yes Na Long as [facility] directed [facility] NovoLog NovoLog Yes Na Long as [facility] Flexpen Flexpen directed [facility] Clonidine Clonidine Yes Na Long [address] HCl HCl [facility]ics Senokot S Senokot S Yes Na Long [address] in the [facility] - evening as Memoria needed l [facility] Magnesium Magnesium Yes Na Long [address] Chloride Chloride [facility] - [facility]oria l [facility] Doxycycline Doxycycline Yes Na Long [address] Hyclate Hyclate [facility] Azithromyci Azithromyci Yes Na Long [address] n n on the [facility] - first day, Memoria then 1 l tablet Outpati daily for ent 4 days Clinics Flonase Flonase Yes [place] [address] [facility] [facility] each [facility] - nostril [facility] l [facility] Humalog Humalog Yes Na Long not [facility] defined [facility] Cetirizine Cetirizine Yes Na Long TAKE [address] HCl HCl TABLET BY [facility] - MOUTH Memoria EVERY DAY l [facility] Immunizations Ordered Immunization Filled Immunization Date Status Commen ts Source Name Name FLUZONE QUAD PF 2019-06-19 Completed [place] 00:00:00 [facility] FLUZONE QUAD 2017-05-10 Completed [place] 00:00:00 [facility] Pneumococcal 2015-10-14 Completed [place] Conjugate 13-Valent 00:00:00 [facility] dist Vital Signs Vital Name Observation Time Observation Value Comments Source Systolic blood 2020-05-20 13:36:00 158 mm[Hg] [place] Duqueist pressure Diastolic blood 2020-05-20 13:36:00 75 mm[Hg] Alicia on [facility] pressure Heart rate 2020-05-20 13:36:00 71 /min [place] [facility] Body height 2020-05-20 13:36:00 156.2 cm [place] [facility] Body weight 2020-05-20 13:36:00 54.432 kg [place] [facility] BMI 2020-05-20 13:36:00 22.31 kg/m2 [place] [facility] Oxygen saturation in 2020-05-20 13:36:00 98 /min [place] [facility] Arterial blood by Pulse oximetry Body temperature 2019-11-25 14:48:36 36.56 Deanna [place] [facility] Respiratory rate 2019-11-25 14:48:36 14 /min [place] [facility] Procedures Procedure Date / Time Performing Clinician [...] Esa Sears DONOR SPECIFIC ANTIBODY 2020-07-07 09:45:00 Eas Sears CBC WITH PLATELET AND 2020-04-03 09:35:00 Jair, Onelia Mcghee DIFFERENTIAL AMYLASE LEVEL 2020-04-03 09:35:00 [facility], Onelia Mcghee COMPREHENSIVE METABOLIC 2020-04-03 09:35:00 [facility], Onelia Mcghee PANEL HEMOGLOBIN A1C 2020-04-03 09:35:00 [facility], Onelia Mcghee LIPASE LEVEL 2020-04-03 09:35:00 [facility], Onelia Mcghee LIPID PANEL 2020-04-03 09:35:00 [facility], Onelia Mcghee MICROALBUMIN / CREATININE 2020-04-03 09:35:00 Jair, Onelia Mcghee URINE RATIO T4, FREE 2020-04-03 09:35:00 [facility], Onelia Mcghee THYROID STIMULATING 2020-04-03 09:35:00 Jair, Onelia Mcghee HORMONE VITAMIN D 25 HYDROXY LEVEL 2020-04-03 09:35:00 [facility], Onelia Mcghee PARATHYROID HORMONE 2020-04-03 09:35:00 [facility], Onelia Mcghee PHOSPHORUS LEVEL 2020-04-03 09:35:00 Jair, Onelia Mcghee URINE CULTURE 2020-01-15 08:09:00 Esa Sears HC [...] UPRIGHT AND/OR DECUBITUS POC GLUCOSE 2019-11-25 11:01:00 Roldan English [facility] odist POC GLUCOSE 2019-11-25 05:30:00 Roldan English Meth odist POC GLUCOSE 2019-11-24 19:57:00 Roldan English [facility] odist POC GLUCOSE 2019-11-24 17:20:00 Roldan English Meth odist US RENAL 2019-11-24 14:21:44 Esa Sears POC GLUCOSE 2019-11-24 12:18:00 Roldan English Meth odist POC GLUCOSE 2019-11-24 05:56:00 Iron [place] [facility] odist XR ABDOMEN 1 VW PORTABLE 2019-11-23 20:36:18 Marito Sears BLOOD CULTURE, AEROBIC & 2019-11-23 18:20:00 NailaIron [place] ANAEROBIC BLOOD CULTURE, AEROBIC & 2019-11-23 18:05:00 NailaIron [place] ANAEROBIC HC COMPLETE BLD COUNT 2019-11-23 18:05:00 AbundioIramIron Sloan W/AUTO DIFF PROTHROMBIN TIME WITH INR 2019-11-23 18:05:00 NailaIron [place] B NATRIURETIC PEPTIDE 2019-11-23 18:05:00 EmilyIron [place] COMPREHENSIVE METABOLIC 2019-11-23 18:05:00 NailaIron [place] PANEL HEMOGLOBIN A1C 2019-11-23 18:05:00 Nailadinorah Iron [place] odist LACTIC ACID LEVEL 2019-11-23 18:05:00 Naila[place] Iron [place] Me thodist MAGNESIUM LEVEL 2019-11-23 18:05:00 Oralia Iron [place] od[place] PHOSPHORUS LEVEL 2019-11-23 18:05:00 Oralia Iron [place] Met hodjimi THYROID STIMULATING 2019-11-23 18:05:00 NailaagneswoodJulyroshni [place] HORMONE ESTIMATED GFR 2019-11-23 18:05:00 Oralia Iron [place] odist SMEAR REVIEW 2019-11-23 18:05:00 Naila[place] Iron [place] odist URINE CULTURE 2019-11-23 17:30:00 Nailaagneswood Iron [place] odjimi URINALYSIS SCREEN AND 2019-11-23 17:30:00 NailaIron [place] MICROSCOPY, WITH REFLEX TO CULTURE URINE CULTURE [...] Future Scheduled 2020-09-03 DIABETIC FOOT EXAM Alicia fisher [facility] Test 00:00:00 [code = DIABETIC FOOT EXAM] Future Scheduled 2020-06-[address] [place] [address] thodist Test 00:00:00 SCREENING [code = BREAST CANCER SCREENING] Future Scheduled 2020-03-01 INFLUENZA VACCINE [place] [facility] Test 00:00:00 [code = INFLUENZA VACCINE] Future Scheduled 2018-12-27 DIABETES: RETINAL EYE [place] [facility] Test 00:00:00 EXAM [code = DIABETES: RETINAL EYE EXAM] Future Scheduled 2007 COLONOSCOPY SCREENING [place] [facility] Test 00:00:00 [code = COLONOSCOPY SCREENING] Future Scheduled 2007 SHINGLES VACCINES [place] [facility] Test 00:00:00 (#1) [code = SHINGLES VACCINES (#1)] Future Scheduled 1978 Screening for [facility] thodist Test 00:00:00 malignant neoplasm of cervix (procedure) [code = 269660703] Future Scheduled 1973 COVID-19 VACCINE (#1) [place] [facility] Test 00:00:00 [code = COVID-19 VACCINE (#1)] Encounters Start End Encounter Admission Attending Care Care Encounter Source Date/Time Date/Time Type Type Clinicians Facility Department ID 2020-07-07 2020-07-07 Outpatient [facility] [id number] [place] 00:[place]:00 00:00:00 BERNARDA [address] 2020-06-02 2020-06-02 Outpatient [facility] [id number] [facility] 2020-05-22 2020-05-22 [facility] [id number] 2020-05-20 2020-05-20 Outpatient [facility] [id number] [place] 00:00:00 00:00:00 ONELIA [address] 2020-03-14 2020-03-14 Outpatient [facility] [id number] 16:20:00 16:20:00 [facility] [place] [facility] l Medicine Outpati ent Clinics 2020-02-23 2020-02-23 Outpatient [facility] [id number] 17:58:00 17:58:00 [facility] [place] [facility] l Medicine Outpati ent Clinics 2020-02-18 2020-02-18 Outpatient [facility] [id number] 08:20:00 08:20:00 [facility] [place] [facility] Medicine l Medicine Outpati ent Clinics 2020-01-22 2020-01-22 Outpatient NITHIN, [facility] [id number] [place] 00:00:00 00:00:00 MAYA [address] 2020-01-21 2020-01-21 [facility] [id number] [address] 13:00:00 13:00:00 t [employer] Formerly [facility] Medicine Outpati ent Clinics 2020-01-15 2020-01-15 Outpatient ABDELLATIF, [facility] [id number] [place] 00:00:00 00:00:00 BERNARDA [address] 2019-12-11 2019-12-11 [facility] [id number] [address] 16:09:00 16:09:00 t [facility] Medicine Outpati ent Clinics 2019-12-07 2019-12-07 [facility] [id number] 13:40:00 13:40:00 t [facility] Medicine Outpati ent Clinics 2019-12-07 2019-12-07 [facility] [id number] 08:06:00 08:06:00 t [facility] [employer] Formerly [facility] Medicine Outpati ent Clinics 2019-12-06 2019-12-06 [facility] [id number] 11:59:00 11:59:00 t [employer] Formerly [facility] Medicine Outpati ent Clinics 2019-11-23 2019-11-25 [facility] [id number] [place] 00:00:00 00:00:00 ROLDAN [address] 2019-10-11 2019-10-11 [facility] [id number] 09:00:00 09:00:00 t [employer] [facility] [employer] Formerly [facility] Medicine Outpati ent Clinics Results Test Description Test Time [...] nge: <100 calculated (test code = Ashley ortiz range <100 85019-4) mg/dL for prima ry prevention; <7 0 mg/dL for patie nts with CHD or venkatesh betic patients with > or = 2 CHD risk fact ors. LDL-C is now calculated darryl mooney the Myranda calculation, wh ich is a validated nov el method candis mooney better accuracy than the Friedewald equation in the estimation of L DL-C. Franklin MARKS et al . NIRAJ. 2013;310( 19): 5236-9489 (http://educati on.Formerly [facility] stDiagnostics.c om/faq /MBJ798) Cholesterol/HDL ratio 2.2 <5.0 (calc) (test code = 9830-1) Non-HDL cholesterol (test 44 <130 mg/dL Fo r patients with code = 94691-5) (calc) diabetes plu s 1 major ASCVD risk fact or, treating to a non-HDL-C goal of <100 mg/dL (LDL -C of <70 mg/dL) is considered a therapeutic opt ion. AMIRA (test code = AMIRA) FASTING:YESFASTING: YES RAC (test code = RAC) Performing Organization Information: Site ID: JOVI Name: [facility] Lab Address: [address] [place] [phone] Director: Jake Guillen Lab Interpretation (test Abnormal code = 32753-0) [place] MethodistAmylase [id number] 14:36:00 Test Item Value Reference Range Interpretation Comments Amylase (test code = 57 U/L 21-101 1798-8) AMIRA (test code = FASTING:YESFASTING: YES AMIRA) RAC (test code = Performing Organization RAC) Information: Site ID: ROMINA Name: [facility] Lab Address: [address] [place] [phone] Director: Jake Guillen [place] MethodistHemoglobin [id number] 14:36:00 Test Item Value Reference Interpretation Comments [...] RAC) Organization Information: Site ID: RGA [facility]: [facility] Address: [address] [place] [address] Director: Jake Guillen Lab Interpretation Abnormal (test code = 42752-5) [place] MethodistLipase [id number] 14:36:00 Test Item Value Reference Range Interpretation Comments Lipase (test code = 29 U/L 7-60 3040-3) AMIRA (test code = FASTING:YESFASTING: YES AMIRA) RAC (test code = Performing Organization RAC) Information: Site ID: JOVI Name: [facility] Lab Address: [address] [place] [address] Director: Jake Guillen [place] Thalia4, [id number] 14:36:00 Test Item Value Reference Range Interpretation Comments T4, free (test code 1.2 ng/dL 0.8-1.8 = 3024-7) AMIRA (test code = FASTING:YESFASTING: YES AMIRA) RAC (test code = Performing Organization RAC) Information: Site ID: RGA Name: [facility] Lab Address: [address] [place] [phone] Director: Jake Guillen [place] MethodistThyroid stimulating [id number] 14:36:00 Test Item Value Reference Range Interpretation Comments TSH (test code = 4.05 0.40- 4.50 mIU/L 3016-3) AMIRA (test code = FASTING:YESFASTING: YES AMIRA) RAC (test code = Performing Organization RAC) Information: Site ID: ROMINAA Name: [facility] Lab Address: [address] [place] [phone] Director: Jake Guillen [place] MethodistMicroalbumin / creatinine urine [id number] 14:36:00 Test Item Value Reference Interpretation Comments Range Creatinine, urine, 69 mg/dL 20-275 random (test code = 2161-8) Microalbumin, urine 6.6 mg/dL See Note: Referenc e (test code = Range:Reference 66947-3) RangeNot establ ished Microalbumin/creati 96 <30 mcg/mg [...] RAC) Organization Information: Site ID: RGA [facility]: [facility] Address: [address] [place] [phone] Director: Jake Guillen Lab Interpretation Abnormal (test code = 77097-0) [place] MethodistBlood culture, aerobic & [id number] 22:33:04 Test Item Value Reference Range Interpretation Comments Blood culture No growth Specimen isolate (test after 5 days InformationSpe cimen code = 600-7) of Source: BloodS pecimen incubation. Site: Hand Righ t [place] MethodistPOC [id number] 16:09:56 Test Item Value Reference Range Interpretation Comments POC glucose (test code 265 mg/dL 65-99 H Opera tor Name: Aldo = 44446-8) LeeShahabe I D: [id number] Lab Interpretation Abnormal (test code = 08227-8) [place] MethodistXR Abdomen 2 Vw Ap W Upright And/Or [id number] 13:20:54Hm Interface, Radiology Results - 11/25/2019 1:23 PM CDTExamination: XR ABDOMEN 2 [...] in the abdomen. Vascular calcifications are seen. [facility]-Vinh McgheeUS [id number] 14:34:05Hm Interface, Radiology Results - 11/24/2019 2:37 PM CDTEXAMINATION: US RENALCLINICAL HISTORY: [...] patent.The urinary bladder is distended.IMPRESSION:Normal renal transplant ultrasound.[facility]-[id number] MethodistXR Abdomen 1 Vw [id number] 20:53:17Hm Interface, Radiology Results 11/23/2019 8:56 PM CDTEXAMINATION: XR ABDOMEN 1 VW ROSEMARY BLECLINICAL HISTORY: Abd pain unspecifiedCOMPARISON: 05/01/2015IMPRESSION:1.Moderate retained stool mainly in the transverse colon and right colon. There is paucity of bowel gas at the rectum. No significant small bowel dilatation noted.[facility]-PRACWLLos MethodistSmear [id number] 20:45:56 Test Item Value Reference Range Interpretation Comments Platelet slide review (test code Rex adequate = 55528-9) Elliptocytes (test code = Occasional 62193-4) [place] MethodistB natriuretic [id number] 18:56:56 Test Item Value Reference Range Interpretation Comments BNP (test code = 66058-9) 479 pg/mL 0-100 H Lab Interpretation (test code = Abnormal 93517-7) [place] MethodistLactic acid [id number] 18:47:47 Test Item Value Reference Range Interpretation Comments Lactic acid (test code = 80753-1) 1.0 mmol/L 0.5-2.2 [place] MethodistProthrombin time with [id number] 18:43:12 Test Item Value Reference Range Interpretation Comments Prothrombin time (test 14.1 11.5- 14.5 sec code = 5902-2) INR (test code = 1.1 The Interna tional 63969-2) Normalized Rati o (INR) is a therapeutic m onitoring tool for patien ts who are stable on oral anticoagulant t herapy. An INR of 2.0-3.0 is suggested for d eep vein thrombosis/pulm onary embolism. [place] MethodistTISSUE [id number] 16:45:00 Test Item Value Reference Range Interpretation Comments LAB AP CPT CODE (BEAKER) (test code = 64252 2749) TACROLIMUS [id number] 09:09:00 Test Item Value Reference Range Interpretation Comments TACROLIMUS BLOOD (BEAKER) (test 6.8 ng/mL 10.0-20.0 L code = 657) POCT-GLUCOSE [id number] 07:33:00 Test Item Value Reference Range Interpretation Comments POC-GLUCOSE METER 138 mg/dL 70-110 H TESTED AT [facility] 6720 (BEAKER) (test code = [place] 1538) [address] BASIC METABOLIC [id number] 05:08:00 Test Item Value Reference Range Interpretation [...] PATIEN TS. CBC W/PLT COUNT & AUTO [id number] 04:51:00 Test Item Value Reference Range Interpretation [...] = 432) BASOPHILS RELATIVE PERCENT 0 % (AKER) (test code = 437) NEUTROPHILS ABSOLUTE COUNT 3.17 K/ L 1.80-8.00 (AKER) (test code = 670) LYMPHOCYTES ABSOLUTE COUNT 0.45 K/ L 1.48-4.50 L (BEAKER) (test code = 414) MONOCYTES ABSOLUTE COUNT (BEAKER) 0.50 K/ L 0.00-1.30 (test code = 415) EOSINOPHILS ABSOLUTE COUNT 0.02 K/ L 0.00-0.50 (BEAKER) (test code = 416) BASOPHILS ABSOLUTE COUNT (BEAKER) 0.00 K/ L 0.00-0.20 (test code = 417) 0.00POCT-GLUCOSE [id number] 01:09:00 Test Item Value Reference Range Interpretation Comments POC-GLUCOSE METER 97 mg/dL 70-110 TESTED AT [place] [address] ([facility]) (test code = [place] [facility] [address]) POCT-GLUCOSE [id number] 21:30:00 Test Item Value Reference Range Interpretation Comments POC-GLUCOSE METER 424 mg/dL 70-110 HH Notified R Bibiana PILLAI/TESTED ([facility]) (test code = AT [address] 1538) [facility] 7[address] 0 POCT-GLUCOSE [id number] 17:04:00 Test Item Value Reference Range Interpretation Comments POC-GLUCOSE METER 198 mg/dL 70-110 H TESTED AT [place] [address] ([facility]) (test code = [place] [facility] 1538) [address] POCT-GLUCOSE [id number] 12:51:00 Test Item Value Reference Range Interpretation Comments POC-GLUCOSE METER 205 mg/dL 70-110 H TESTED AT [place] [address] ([facility]) (test code = [place] [facility] 1538) [address] TACROLIMUS [id number] 12:35:00 Test Item Value Reference Range Interpretation Comments TACROLIMUS BLOOD ([facility]) (test 5.9 ng/mL 10.0-20.0 L code = 657) POCT-GLUCOSE [id number] 08:32:00 Test Item Value Reference Range Interpretation Comments POC-GLUCOSE METER 60 mg/dL 70-110 L TESTED AT [place] [address] ([facility]) (test code = [place] [facility] [address]38) POCT-GLUCOSE [id number] 21:41:00 Test Item Value Reference Range Interpretation Comments POC-GLUCOSE METER 202 mg/dL 70-110 H TESTED AT [place] [address] ([facility]) (test code = [place] oHrn [facility] 1538) [address] POCT-GLUCOSE [id number] 17:36:00 Test Item Value Reference Range Interpretation Comments POC-GLUCOSE METER 191 mg/dL 70-110 H TESTED AT [place] [address] ([facility]) ([facility] = [facility] 1538) [address] POCT-GLUCOSE [id number] 11:01:00 Test Item Value Reference Range Interpretation Comments POC-GLUCOSE METER 232 mg/dL 70-110 H TESTED AT [place] [address] ([facility]) (test code = [facility] Kory [facility] 1538) [address] TACROLIMUS [id number] 10:16:00 Test Item Value Reference Range Interpretation Comments TACROLIMUS BLOOD (BEAKER) (test 8.3 ng/mL 10.0-20.0 L code = 657) POCT-GLUCOSE [id number] 08:16:00 Test Item Value Reference Range Interpretation Comments POC-GLUCOSE METER 366 mg/dL 70-110 H TESTED AT [place] [address] ([facility]) (test code = [facility] 1538) [address] BASIC METABOLIC [id number] 06:57:00 Test Item Value Reference Range Interpretation [...] APPLICABLE FOR DIALYSIS PATIEN TS. HEMOGLOBIN AND [id number] 06:40:00 Test Item Value Reference Range Interpretation Comments HEMOGLOBIN (BEAKER) (test code = 11.4 GM/DL 12.0-15.0 L 410) HEMATOCRIT (BEAKER) (test code = 36.1 % 36.0-45.0 411) POCT-GLUCOSE [id number] 23:30:00 Test Item Value Reference Range Interpretation Comments POC-GLUCOSE METER 274 mg/dL 70-110 H TESTED AT [facility] 6720 (BEAKER) (test code = [place] 5[address]) [address] BASIC METABOLIC [id number] 18:49:00 Test Item Value Reference Range Interpretation [...] APPLICABLE FOR DIALYSIS PATIEN TS. HEMOGLOBIN AND [id number] 18:35:00 Test Item Value Reference Range Interpretation Comments HEMOGLOBIN (BEAKER) (test code = 11.5 GM/DL 12.0-15.0 L 410) HEMATOCRIT (BEAKER) (test code = 35.6 % 36.0-45.0 L 411) BASIC METABOLIC [id number] 12:08:00 Test Item Value Reference Range Interpretation [...] 0-0 (BEAKER) (test code = 413) 0.00POTASSIUM-STAT [id number] 11:43:00 Test Item Value Reference Range Interpretation Comments POTASSIUM (BEAKER) (test code = 4.3 meq/L 3.6-5.5 379) POCT-GLUCOSE [id number] 11:34:00 Test Item Value Reference Range Interpretation Comments POC-GLUCOSE METER 82 mg/dL 70-110 TESTED AT [facility] 6720 (BEAKER) (test code = [place] [address] 1538) URINE [id number] 11:19:00 Test Item Value Reference Range Interpretation Comments CULTURE (BEAKER) (test 20-29,000 col/mL skin code = 1095) tea URINALYSIS W/ [id number] 15:16:00 Test Item Value Reference Range Interpretation [...] = 2795) CBC W/PLT COUNT & AUTO [id number] 14:56:00 Test Item Value Reference Range Interpretation [...] K/ L 0.00-0.20 (test code = 417) 0.00BASIC METABOLIC [id number] 14:55:00 Test Item Value Reference Range Interpretation [...] GFR I S NOT APPLICABLE FOR DIALYSIS PATIISAIAH TS. [id number] 14:51:00 Test Item Value Reference Range Interpretation Comments PARTIAL THROMBOPLASTIN TIME 30.7 seconds 22.5-36.0 (BEAKER) (test code = 760) PROTHROMBIN [id number] 14:50:00 Test Item Value Reference Range Interpretation [...]
[2020-08-01] MEDS ORDERED: HYDROCODONE/CHLORPHEN 5 ML/OSYR ONE (10:59)
--- NOTE | 2020-08-01 11:08 | RAD REPORT ---
EXAM DESCRIPTION: RAD - Chest Single View - 08/01/2020 10:57 am CLINICAL HISTORY: COUGH COMPARISON: Portable July 2004 TECHNIQUE: AP portable chest image was obtained 08/01/2020 10:57 am . FINDINGS: Lung volumes are normal. Bilateral airspace opacification present in the mid and lower juancarlos g beck new from prior imaging. No mass or cavitation. Heart and vasculature are normal. No measurab le pleural effusion and no pneumothorax. No acute bony abnormality seen. No acute aortic findings ciera pected. IMPRESSION: Nonspecific bilateral pneumonia pattern. Bacterial and viral etiologies are both possibl e including COVID-19 viral pneumonia.
[2020-08-01 11:54] LABS: Absolute Lymphocytes (CBC) 0.2 K/uL (0.7-4.9); Basophils % 0.1 % (0-1.3); Lymphocytes % 3.5 % (15.3-44.8); MPV 8.8 fL (7.6-11.3); RBC Red Blood Cell Count 3.94 M/uL (3.86-4.86)
[2020-08-01 12:01] LABS: Protime INR 1.15
[2020-08-01] MEDS ORDERED: NA CHLORIDE 0.9% 500 ML ONE (12:03)
[2020-08-01] MEDS ORDERED: CEFTRIAXONE/SWI 1gm 1 GM/10 ML SYR ONE (12:03)
[2020-08-01 12:15] LABS: Albumin 2.7 g/dL (3.4-5.0); Bilirubin Direct 0.2 mg/dL (0-0.2); Bilirubin Total 0.5 mg/dL (0.2-1.0); Magnesium 1.6 mg/dL (1.8-2.4); Protein, Total 6.5 g/dL (6.4-8.2); Troponin (Emerg Dept Use Only) 0.12 ng/mL (0.0-0.045)
[2020-08-01 12:24] LABS: Platelet Estimate ADEQ
[2020-08-01 12:25] LABS: Blood Morphology Comment NOT SEEN (NOT SEEN)
[2020-08-01] MEDS ORDERED: MORPHINE 2 MG/ML SYR IV PRN (12:46)
[2020-08-01] MEDS ORDERED: ONDANSETRON 4 MG/2 ML VIAL IV PRN (12:46)
[2020-08-01] MEDS ORDERED: ACETAMINOPHEN 500 MG TAB PO PRN (12:46)
[2020-08-01] MEDS ORDERED: Magnesium Sulfate 2gm IVPB 2 G/50 ML BAG IV ONE ×2 (12:49→15:16)
--- NOTE | 2020-08-01 12:51 | ER ---
Nurse's Notes [facility] Name: Paola Mishra Age: 64 yrs Sex: Female : 1955 Arrival Date: 08/01/2020 Time: 10:20 Bed 15 Private MD: Diagnosis: Pneumonia, unspecified organism;Dehydration Presentation: 08/01 10:23 Chief complaint: Patient states: SOB, cough, fatigue, loss of appetite x 4 days. Denies ca1 fever. Coronavirus screen: Client denies travel out of the [place] in the last 14 days. cough unrelated to allergies, fatigue, shortness of breath, Client presents with at least one sign or symptom that may indicate coronavirus-19. Standard/surgical mask placed on the client. Provider contacted for isolation considerations. Ebola Screen: Patient negative for fever greater than or equal to 101.5 degrees Fahrenheit, and additional compatible Ebola Virus Disease symptoms Patient denies exposure to infectious person. Patient denies travel to an Ebola-affected area in the 21 days before illness onset. No symptoms or risks identified at this time. Initial Sepsis Screen: Does the patient meet any 2 criteria? No. Patient's initial sepsis screen is negative. Does the patient have a suspected source of infection? No. Patient's initial sepsis screen is negative. Risk Assessment: Do you want to hurt yourself or someone else? Patient reports no desire to harm self or others. Onset of symptoms was August 01, 2020. 10:23 Method Of Arrival: Wheelchair ca1 10:23 Acuity: NOHELIA 3 ca1 Triage Assessment: 10:30 General: Appears distressed, uncomfortable, ill, Behavior is cooperative, appropriate bp for age, anxious. Pain: Denies pain. EENT: No deficits noted. Neuro: No deficits noted. Cardiovascular: No deficits noted. Respiratory: Reports shortness of breath cough that is. GI: No signs and/or symptoms were reported involving the gastrointestinal system. : No signs and/or symptoms were reported regarding the genitourinary system. Derm: No deficits noted. Musculoskeletal: No deficits noted. Historical: - Allergies: 10:34 NKDA; ca1 - PMHx: 10:34 Diabetes - IDDM; ESRD; no longer does dialysis, recieved kidney transplant; ca1 Hyperlipidemia; Hypertension; kidney transplant; - PSHx: 10:34 Hernia repair; ca1 - Immunization history:: Adult Immunizations up to date, Flu vaccine is up to date. - Social history:: Smoking status: Patient denies any tobacco usage or history of. Screenin:30 Abuse screen: Denies threats or abuse. Denies injuries from another. Nutritional bp screening: No deficits noted. Tuberculosis screening: No symptoms or risk factors identified. Fall Risk None identified. Assessment: 10:30 General: SEE TRIAGE NOTE. bp 12:30 Reassessment: No changes from previously documented assessment. Patient and/or family bp updated on plan of care and expected duration. Pain level reassessed. Patient is alert, oriented x 3, equal unlabored respirations, skin warm/dry/pink. ADMIT INITIATED. 14:00 Reassessment: No changes from previously documented assessment. Patient and/or family bp updated on plan of care and expected duration. Pain level reassessed. Patient is alert, oriented x 3, equal unlabored respirations, skin warm/dry/pink. ADMIT IN PROCESS. Vital Signs: 10:23 BP 131 / 73; Pulse 83; Resp 18 S; Temp 97.3(TE); Pulse Ox 98% on R/A; Weight 53.52 kg bp (R); Height 5 ft. 3 in. (160.02 cm) (R); 11:27 BP 136 / 72; Pulse 80; Resp 18; Temp 97.8(O); Pulse Ox 96% on R/A; mh5 12:30 BP 144 / 76; Pulse 82; Resp 16; Pulse Ox 99% ; bp 13:58 BP 140 / 76; Pulse 82; Resp 16; Pulse Ox 99% on R/A; mh5 10:23 Body Mass Index 20.90 (53.52 kg, 160.02 cm) bp ED Course: 10:20 Patient arrived in ED. rg4 10:23 Zoltan Greene, BO is Primary Nurse. bp 10:27 Myron Jung NP is PHCP. pm1 10:27 Francisco J Noonan MD is Attending Physician. pm1 10:30 Patient has correct armband on for positive identification. Bed in low position. Call bp light in reach. Side rails up X2. Adult w/ patient. 10:34 Triage completed. ca1 10:34 Arm band placed on right wrist. ca1 10:54 CXR XRAY Sent. bp 10:57 CXR XRAY In Process Unspecified. EDMS 11:13 COVID-19 Sent. sv 11:30 Inserted saline lock: 20 gauge in right forearm, using aseptic technique. Blood bp collected. 12:50 Mauro Gross MD is Hospitalizing Provider. pm1 15:45 No provider procedures requiring assistance completed. bp 19:20 Primary Nurse role handed off by Zoltan Greene, RN tt3 Administered Medications: 10:50 Drug: Tussionex Pennkinetic ER 5 ml Route: PO; bp 11:30 Drug: Rocephin 1 grams Route: IV; Rate: calculated rate; Site: right forearm; bp 11:30 Drug: NS 0.9% 500 ml Route: IV; Rate: bolus; Site: right forearm; bp 12:00 Drug: NS 0.9% 500 ml Route: IV; Rate: bolus; Site: right forearm; bp Outcome: 12:51 Decision to Hospitalize by Provider. pm1 08/02 03:53 Patient left the ED. lp1 Signatures: Dispatcher [employer] EDMS Karli Nicolas RN BO Lela Alegre RN RN lp1 Myron Jung, REFRACTORY MIXER REFRACTORY MIXER pm1 Cecily Nogueira 4 Aparna Sorto [facility] Zoltan Greene, BO SORIANO bp Daxa Gilbert RN RN ca1 Erwin Kaiser tt3 Corrections: (The following items were deleted from the chart) 08/01 15:44 10:23 BP 131 / 73; Pulse 83bpm; Resp 18bpm; Spontaneous; Pulse Ox 98% RA; Temp 97.3F bp Temporal; 53.52 kg Reported; Height 5 ft. 3 in. Reported; BMI: 20.9; ca1
--- NOTE | 2020-08-01 12:51 | EDPHYS ---
Physician Documentation [facility] Name: Paola Mishra Age: 64 yrs Sex: Female : 1955 Arrival Date: 08/01/2020 Time: 10:20 Bed 15 Private MD: ED Physician Francisco J Noonan HPI: 08/01 10:39 This 64 yrs old Female presents to ER via Wheelchair with complaints of Cough pm1 and shortness of breath. 10:39 The patient has shortness of breath at rest. pm1 10:39 Onset: The symptoms/episode began/occurred 4 day(s) ago. Duration: The symptoms are pm1 continuous. The patient's shortness of breath is aggravated by nothing, is alleviated by nothing. Associated signs and symptoms: Pertinent positives: Decreased appetite and decreased PO intake, Pertinent negatives: chest pain, fever, nausea, vomiting, diarrhea. Severity of symptoms: in the emergency department the symptoms are worse. The patient has not recently seen a physician, the patient's primary care provider is Dr. Long. Historical: - Allergies: 10:34 NKDA; ca1 - PMHx: 10:34 Diabetes - IDDM; ESRD; no longer does dialysis, recieved kidney transplant; ca1 Hyperlipidemia; Hypertension; kidney transplant; - PSHx: 10:34 Hernia repair; ca1 - Immunization history:: Adult Immunizations up to date, Flu vaccine is up to date. - Social history:: Smoking status: Patient denies any tobacco usage or history of. ROS: 10:39 Eyes: Negative for injury, pain, redness, and discharge, ENT: Negative for injury, pm1 pain, and discharge, Neck: Negative for injury, pain, and swelling, Cardiovascular: Negative for chest pain, palpitations, and edema. 10:39 Abdomen/GI: Negative for abdominal pain, nausea, vomiting, diarrhea, and constipation, Back: Negative for injury and pain, MS/Extremity: Negative for injury and deformity, Skin: Negative for injury, rash, and discoloration, Neuro: Negative for headache, weakness, numbness, tingling, and seizure. 10:39 Constitutional: Positive for poor PO intake, Negative for fever. 10:39 Respiratory: Positive for cough, shortness of breath. Exam: 10:39 Constitutional: This is a well developed, well nourished patient who is awake, alert, pm1 and in no acute distress. Head/Face: Normocephalic, atraumatic. Neck: Trachea midline, no thyromegaly or masses palpated, and no cervical lymphadenopathy. Supple, full range of motion without nuchal rigidity, or vertebral point tenderness. No Meningismus. 10:39 Back: No spinal tenderness. No costovertebral tenderness. Full range of motion. Skin: Warm, dry with normal turgor. Normal color with no rashes, no lesions, and no evidence of cellulitis. MS/ Extremity: Pulses equal, no cyanosis. Neurovascular intact. Full, normal range of motion. 10:39 Chest/axilla: Exam negative for acute changes, Inspection: normal, Palpation: is normal. 10:39 Cardiovascular: Exam negative for acute changes, Rate: normal, Rhythm: Pulses: no pulse deficits are appreciated, Edema: is not appreciated. 10:39 Respiratory: the patient does not display signs of respiratory distress, Respirations: normal, Breath sounds: bronchial sounds, that are mild, are heard diffusely. 10:39 Abdomen/GI: Exam negative for acute changes, Inspection: abdomen appears normal, Palpation: abdomen is soft and non-tender, in all quadrants. 10:39 Neuro: Exam negative for acute changes, Orientation: is normal, Mentation: is normal, Motor: is normal, moves all fours, Sensation: is normal, no obvious gross deficits. Vital Signs: 10:23 BP 131 / 73; Pulse 83; Resp 18 S; Temp 97.3(TE); Pulse Ox 98% on R/A; Weight 53.52 kg bp (R); Height 5 ft. 3 in. (160.02 cm) (R); 11:27 BP 136 / 72; Pulse 80; Resp 18; Temp 97.8(O); Pulse Ox 96% on R/A; mh5 12:30 BP 144 / 76; Pulse 82; Resp 16; Pulse Ox 99% ; bp 13:58 BP 140 / 76; Pulse 82; Resp 16; Pulse Ox 99% on R/A; mh5 10:23 Body Mass Index 20.90 (53.52 kg, 160.02 cm) bp MDM: 10:28 Patient medically screened. pm1 12:49 Data reviewed: vital signs. Data interpreted: Pulse oximetry: on room air is 96 %. pm1 Interpretation: normal. Counseling: I had a detailed discussion with the patient and/or guardian regarding: the historical points, exam findings, and any diagnostic results supporting the discharge/admit diagnosis, lab results, radiology results, the need for further work-up and treatment in the hospital. 12:49 Physician consultation: Mauro Gross MD was contacted at 12:49, regarding admission, pm1 patient's condition, and will see patient. 08/01 10:38 Order name: COVID-19 pm1 08/01 10:38 Order name: Flu pm1 08/01 10:38 Order name: Strep; Complete Time: 11:54 pm1 08/01 10:39 Order name: CORONAVIRUS EDMS 08/01 11:13 Order name: Basic Metabolic Panel; Complete Time: 12:27 pm1 08/01 11:13 Order name: CBC with Diff; Complete Time: 12:27 pm1 08/01 11:13 Order name: LFT's; Complete Time: 12:27 pm1 08/01 11:13 Order name: Magnesium; Complete Time: 12:27 pm1 08/01 11:13 Order name: NT PRO-BNP; Complete Time: 12:27 pm1 08/01 11:13 Order name: PT-INR; Complete Time: 12:27 pm1 08/01 11:13 Order name: Troponin (emerg Dept Use Only); Complete Time: 12:27 pm1 08/01 11:13 Order name: Blood Culture Adult (2) pm1 08/01 11:42 Order name: Throat Culture EDMS 08/01 12:25 Order name: Manual Differential; Complete Time: 12:27 EDMS 08/01 10:38 Order name: CXR XRAY; Complete Time: 11:10 pm1 08/01 11:13 Order name: EKG; Complete Time: 11:15 pm1 08/01 12:49 Order name: Comprehensive Metabolic Panel EDMS 08/01 12:49 Order name: Comprehensive Metabolic Panel EDMS 08/01 12:49 Order name: Protime (+INR) EDMS 08/01 12:49 Order name: Protime (+INR) EDMS 08/01 12:50 Order name: CBC with Automated Diff EDMS 08/01 12:50 Order name: CBC with Automated Diff EDMS 08/01 12:50 Order name: PTT, Activated Partial Thromb EDMS 08/01 12:50 Order name: PTT, Activated Partial Thromb EDMS 08/01 14:42 Order name: COVID-19/FLU A+B; Complete Time: 14:49 EDMS 08/01 20:34 Order name: Glucose, Ancillary Testing EDMS 08/01 10:38 Order name: Document PUI#; Complete Time: 10:39 pm1 08/01 10:38 Order name: Droplet/Contact Precautions; Complete Time: 10:39 pm1 08/01 10:38 Order name: Labs collected and sent; Complete Time: 10:53 pm1 08/01 11:13 Order name: Cardiac monitoring; Complete Time: 12:09 pm1 08/01 11:13 Order name: EKG - Nurse/Tech; Complete Time: 12:09 pm1 08/01 11:13 Order name: IV Saline Lock; Complete Time: 12:09 pm1 08/01 11:13 Order name: O2 Per Protocol; Complete Time: 11:20 pm1 08/01 11:13 Order name: O2 Sat Monitoring; Complete Time: 11:20 pm1 08/01 12:50 Order name: CONS Pharmacy Consult EDWV 08/01 12:50 Order name: Heart Healthy EDWV Administered Medications: 10:50 Drug: Tussionex Pennkinetic ER 5 ml Route: PO; bp 11:30 Drug: Rocephin 1 grams Route: IV; Rate: calculated rate; Site: right forearm; bp 11:30 Drug: NS 0.9% 500 ml Route: IV; Rate: bolus; Site: right forearm; bp 12:00 Drug: NS 0.9% 500 ml Route: IV; Rate: bolus; Site: right forearm; bp Disposition: 08/02 23:04 Co-signature as Attending Physician, Francisco J Noonan MD I agree with the assessment and tw4 plan of care. Disposition: 08/01/20 12:51 Hospitalization ordered by Mauro Gross for Observation. Preliminary diagnosis are Pneumonia, unspecified organism, Dehydration. - Bed requested for [facility] ER HOLD. - Status is Observation. lp1 - Condition is Stable. - Problem is new. - Symptoms have improved. Signatures: Dis[facility] Juany Chan RN RN Lela Alegre RN RN lp1 Myron Jung NP [employer] SECURITY REPRESENTATIVE pm1 Zoltan Greene, RN RN bp Francisco J Noonan MD MD tw4 Daxa Gilbert, RN RN ca1 Corrections: (The following items were deleted from the chart) 08/01 14:43 12:51 Hospitalization Ordered by Mauro Gross MD for Observation. Preliminary ss diagnosis is Pneumonia, unspecified organism; Dehydration. Bed requested for Telemetry/MedSurg (observation). Status is Observation. Condition is Stable. Problem is new. Symptoms have improved. pm1 18:17 10:39 This 64 yrs old Female presents to ER via Wheelchair with complaints of pm1 Cough. pm1 08/02 03:53 08/01 14:43 08/01/2020 12:51 Hospitalization Ordered by Mauro Gross MD for lp1 Observation. Preliminary diagnosis is Pneumonia, unspecified organism; Dehydration. Bed requested for [facility] ER HOLD. Status is Observation. Condition is Stable. Problem is new. Symptoms have improved. ss
[2020-08-01] MEDS: NA CHLORIDE 0.9% 1,000 ML IV SCH (13:00)
[2020-08-01 14:42] LABS: SARS-COV-2 RT PCR POSITIVE (NEGATIVE)
[2020-08-01] MEDS ORDERED: NA CHLORIDE 0.9% 1,000 ML ONE ×2 (15:16→23:56)
[2020-08-01 15:47] VITALS: BMI 21.2
[2020-08-01] MEDS ORDERED: METHYLPREDNISOLONE 125 MG INJ IV ONE (17:01)
[2020-08-01] MEDS ORDERED: ALBUTEROL INHALER 60 PUFF/8 GM IH PRN (17:01)
[2020-08-01] MEDS ORDERED: BENZONATATE 100 MG CAP PO PRN (17:01)
--- NOTE | 2020-08-01 17:05 | P.HP ---
Certification for Inpatient Patient admitted to: Observation With expected LOS: <2 Midnights Patient will require the following post-hospital care: None Practitioner: I am a practitioner with admitting privileges, knowledge of patient current condition, hospital course, and medical plan of care. Services: Services provided to patient in accordance with Admission requirements found in Title 42 Section 412.3 of the Code of Federal Regulations Patient History Date of Service: 08/01/20 Reason for admission: Dehydration/COVID + History of Present Illness: Patient is a 64yo who was admitted to the hospital with dehydration, and feeling weak and fatigued. She was found to have COVID pneumonia. Patient will be admitted for observation. Patient has been coughing and congested. Patient's inflammatory markers were elevated. Ferritin is normal however. Patient is on immunosuppressants. Renal function is stable. At this time will admit patient for observation. If she is doing well then we will anticipate discharge over the next 48 hr. Patient is not requiring any kind of additional supplemental oxygen. Will hold off on Remdesivir. Allergies No Known Drug Allergies Allergy (Verified 08/01/20 23:30) Unknown Home Medications: Amlodipine [Norvasc*] 10 mg PO DAILY 07/04/19 Calcium Carbonate [Tums Regular*] 500 mg PO TID 07/04/19 Carvedilol [Coreg] 12.5 mg PO BID 07/04/19 Cholecalciferol (Vitamin D3) [Vitamin D3] 2,000 unit PO DAILY 07/04/19 Clonidine HCl [Catapres] 0.1 mg PO TID 07/04/19 Gabapentin [Neurontin*] 100 mg PO TID 07/04/19 Insulin Lispro [Humalog Kwikpen U-100] 7 units SQ TIDWM 07/04/19 Linagliptin [Tradjenta] 5 mg PO DAILY 07/04/19 Magnesium Chloride [Slow-Mag*] 64 mg PO DAILY 07/04/19 Omeprazole [Prilosec] 40 mg PO DAILY 07/04/19 Simvastatin 20 mg PO BEDTIME 07/04/19 Tacrolimus [Prograf] 2 cap PO BID 07/04/19 mycophenolate mofetiL [Mycophenolate Mofetil] 500 mg PO BID 07/04/19 predniSONE [Prednisone*] 5 mg PO DAILY 07/04/19 - Past Medical/Surgical History Diabetic: Yes -: Kidney transplant -: chronic venous hypertension with ulceraton -: diabetic ulcer toe -: gerd -: hyperlipidemia -: neuropathy chronic kidney disease -: kidney transplant -: -: Toe Amputation -: Fistula Placement -: Chronic venous hypertension with ulceration - Family History Mother Medical History: Stroke - Social History Smoking Status: Never smoker Review of Systems 10-point ROS is otherwise unremarkable Physical Examination - Vital Signs Temperature: 98 F Blood Pressure: 117/91 Pulse: 77 Respirations: 15 Pulse Ox (%): 98 - Physical Exam General: Alert, In no apparent distress, Oriented x3 HEENT: Atraumatic, PERRLA, Mucous membr. moist/pink, EOMI, Sclerae nonicteric Neck: Supple, 2+ carotid pulse no bruit, No LAD, Without JVD or thyroid abnormality Respiratory: Diminished, Other Cardiovascular: Regular rate/rhythm, Normal S1 S2, No murmurs Gastrointestinal: Normal bowel sounds, Soft and benign, Non-distended, No tenderness Musculoskeletal: No clubbing, No swelling, No tenderness Integumentary: No rashes Neurological: Normal gait, Normal speech, Normal strength at 5/5 x4 extr, Normal tone, Sensation intact, Cranial nerves 3-12 intact, Normal affect Lymphatics: No axilla or inguinal lymphadenopathy - Studies Laboratory Data (last 24 hrs) 08/01/20 11:45: PT 13.5 H, INR 1.15 08/01/20 11:45: WBC 4.7, Hgb 11.4 L, Hct 35.0 L, Plt Count 209 08/01/20 11:45: Sodium 136, Potassium 4.0, BUN 25 H, Creatinine 1.90 H, Glucose 318 H, Magnesium 1.6 L, Total Bilirubin 0.5, AST 17, ALT 16, Alkaline Phosphatase 56 Microbiology Data (last 24 hrs): 08/01/20 10:49 Throat Group A Streptococcus Rapid Screen - Final Assessment & Plan - Problems (Diagnosis) (1) COVID-19 Current Visit: Yes Status: Acute (2) Dehydration Current Visit: Yes Status: Acute (3) Fatigue Current Visit: Yes Status: Acute (4) Lethargy Current Visit: Yes Status: Acute (5) Chronic kidney disease, stage 3 Onset Date: 10/26/17 Current Visit: No Status: Chronic (6) Diabetes Onset Date: 10/26/17 Current Visit: No Status: Chronic Qualifiers: (7) GERD (gastroesophageal reflux disease) Onset Date: 10/26/17 Current Visit: No Status: Chronic Qualifiers: (8) Hx of kidney transplant Current Visit: No Status: Chronic (9) Hyperlipidemia Onset Date: 10/26/17 Current Visit: No Status: Chronic Qualifiers: (10) Hypertension Onset Date: 10/26/17 Current Visit: No Status: Chronic Qualifiers: - Plan Plan: 1. Continue with immunosuppressants 2. Gentle hydration 3. IV steroids 4. Albuterol inhaler as needed 5. Monitor oxygenation 6. Antibiotics as needed 7. GI and DVT prophylaxis Discharge Plan: Home Plan to discharge in: Greater than 2 days - Advance Directives Does patient have a Living Will: No Does patient have a Durable POA for Healthcare: No - Code Status/Comfort Care Code Status Assessed: Yes Code Status: Full Code Critical Care: No Time Spent Managing PTS Care (In Minutes): 45
[2020-08-01] MEDS ORDERED: METHYLPREDNISOLONE 40 MG INJ ONE ×2 (18:05→20:13)
[2020-08-01] MEDS ORDERED: cloNIDine HCL 0.1 MG TAB ONE (20:10)
[2020-08-01] MEDS ORDERED: carvediloL 6.25 MG TAB ONE (20:11)
[2020-08-01] MEDS ORDERED: ATORVASTATIN 20 MG TAB ONE (20:11)
[2020-08-01] MEDS ORDERED: GABAPENTIN 100 MG CAP ONE (20:23)
[2020-08-01] MEDS ORDERED: PANTOPRAZOLE 40MG TABLET PO ONE (20:23)
[2020-08-01] MEDS: ATORVASTATIN 10 MG TAB PO SCH (20:24)
[2020-08-01] MEDS ORDERED: CALCIUM CARBONATE CHEW 500MG TAB ONE (20:24)
[2020-08-01] MEDS: GABAPENTIN 100 MG CAP PO SCH (20:25)
[2020-08-01] MEDS: carvediloL 6.25 MG TAB PO SCH (20:25)
[2020-08-01] MEDS: cloNIDine HCL 0.1 MG TAB PO SCH (20:25)
[2020-08-01] MEDS: CALCIUM CARBONATE CHEW 500MG TAB PO SCH (20:25)
[2020-08-01] MEDS: HOME MED 1 EA UNK (Mycophenolate Mofetil [Mycophenolate Mofetil] 500 MG Tablet) PO SCH (20:25)
[2020-08-01] MEDS: HOME MED 1 EA UNK (Tacrolimus [Prograf] 1 MG Capsule) PO SCH (20:26)
[2020-08-01] MEDS ORDERED: GLUCAGON 1 MG/VIAL IM PRN (20:44)
[2020-08-01] MEDS ORDERED: D50W 25 GM/50 ML SYRINGE IV PRN (20:44)
[2020-08-01] MEDS: INSULIN -REGULAR HUMAN 50 UNIT/0.5 ML ML SQ SCH (21:00)
[2020-08-01] MEDS ORDERED: INSULIN -REGULAR HUMAN 50 UNIT/0.5 ML ML ONE (21:14)
[2020-08-02] MEDS: NA CHLORIDE 0.9% 1,000 ML IV SCH (00:10)
[2020-08-02] MEDS: METHYLPREDNISOLONE 40 MG INJ IV SCH ×3 (00:10→18:31)
[2020-08-02] MEDS: PANTOPRAZOLE 40MG TABLET PO SCH (05:04)
[2020-08-02 06:27] LABS: Absolute Lymphocytes (CBC) 0.1 K/uL (0.7-4.9); Hematocrit 32.7 % (36.0-45.0); MPV 9.2 fL (7.6-11.3); RBC Red Blood Cell Count 3.68 M/uL (3.86-4.86)
[2020-08-02 06:40] LABS: Protime INR 1.02
[2020-08-02 06:44] LABS: Albumin 2.6 g/dL (3.4-5.0); Bilirubin Total 0.4 mg/dL (0.2-1.0); Potassium 4.4 mmol/L (3.5-5.1); Protein, Total 6.5 g/dL (6.4-8.2)
[2020-08-02 07:09] LABS: C-Reactive Protein 95.9 mg/L (<3.00); Ferritin 371.2 ng/mL (8-388)
[2020-08-02 08:06] LABS: Blood Morphology Comment NOT SEEN (NOT SEEN); Platelet Estimate ADEQ; White Blood Cell Scan OK (OK)
[2020-08-02] MEDS: cloNIDine HCL 0.1 MG TAB PO SCH ×3 (08:19→22:16)
[2020-08-02] MEDS: carvediloL 6.25 MG TAB PO SCH ×2 (08:19→22:16)
[2020-08-02] MEDS: VITAMIN D 1000 UNIT TAB PO SCH (08:19)
[2020-08-02] MEDS: AMLODIPINE 10 MG TAB PO SCH (08:19)
[2020-08-02] MEDS: GABAPENTIN 100 MG CAP PO SCH ×3 (08:20→22:16)
[2020-08-02] MEDS: MAGNESIUM CHLORIDE 64 MG TAB PO SCH (09:00)
[2020-08-02] MEDS: HOME MED 1 EA UNK (Mycophenolate Mofetil [Mycophenolate Mofetil] 500 MG Tablet) PO SCH ×2 (09:00→21:00)
[2020-08-02] MEDS: HOME MED 1 EA UNK (Linagliptin [Tradjenta] 5 MG Tablet) PO SCH (09:00)
[2020-08-02] MEDS: CALCIUM CARBONATE CHEW 500MG TAB PO SCH ×3 (09:00→22:16)
[2020-08-02] MEDS: HOME MED 1 EA UNK (Tacrolimus [Prograf] 1 MG Capsule) PO SCH (09:00)
[2020-08-02] MEDS: INSULIN -REGULAR HUMAN 50 UNIT/0.5 ML ML SQ SCH ×4 (09:48→21:00)
[2020-08-02] MEDS: INSULIN LISPRO 100 UNIT/1 ML SQ SCH ×3 (09:58→22:17)
[2020-08-02] MEDS: APIXABAN 5 MG TABLET PO SCH ×2 (10:01→22:15)
[2020-08-02] MEDS: TACROLIMUS PO SCH ×2 (10:15→21:00)
[2020-08-02 12:15] VITALS: O2SAT 96
[2020-08-02] MEDS ORDERED: HYDROCODONE/CHLORPHEN 5 ML/OSYR PO PRN (13:57)
--- NOTE | 2020-08-02 14:07 | EKG ---
Test Date: 2020-08-01 Test Time: 11:39:28 [employer] Infrastructure Project Manager: BP MEASUREMENT RESULTS: Intervals: Rate: 81 MA: 114 QRSD: 78 QT: 376 QTc: 436 [place]: P: 63 MA: 114 QRS: 47 T: 75 INTERPRETIVE STATEMENTS: Normal sinus rhythm Normal ECG Compared to ECG 07/03/2019 22:40:57 No significant changes Electronically Signed On 08-02-20 14:04:52 TRANSMITTER CHIEF by Kingston Davey
[2020-08-02] MEDS ORDERED: INSULIN GLARGINE 100 UNITS/ML SQ ONE (17:46)
[2020-08-02] MEDS ORDERED: GLUCAGON 1 MG/VIAL IM PRN (17:46)
[2020-08-02] MEDS ORDERED: D50W 25 GM/50 ML SYRINGE IV PRN (17:46)
[2020-08-02] MEDS: ATORVASTATIN 10 MG TAB PO SCH (22:16)
[2020-08-03] MEDS: METHYLPREDNISOLONE 40 MG INJ IV SCH (00:25)
[2020-08-03] MEDS: PANTOPRAZOLE 40MG TABLET PO SCH (06:11)
--- NOTE | 2020-08-03 08:09 | P.PN ---
Subjective Date of Service: 08/02/20 Patient clinically continues to gradually improve. Having a persistent cough. She is coughing persistently in gets really short of breath when walking to the restroom. Inflammatory markers are significantly elevated. She is on immune suppressants at home as well as she still renal transplant patient. Will monitor her today and possible discharge home in the morning if there if continues to be improvement of the respiratory status Review of Systems 10-point ROS is otherwise unremarkable Physical Examination - Vital Signs Temperature: 97.3 F Blood Pressure: 152/78 Pulse: 76 Respirations: 16 Pulse Ox (%): 98 - Physical Exam General: Alert, In no apparent distress, Oriented x3 Respiratory: Diminished, Expiratory wheezes Cardiovascular: Regular rate/rhythm, Normal S1 S2 Gastrointestinal: Normal bowel sounds, Soft and benign, Non-distended, No tenderness Musculoskeletal: No clubbing, No swelling, No tenderness Integumentary: No rashes Neurological: Sensation intact, Cranial nerves 3-12 intact - Studies Microbiology Data (last 24 hrs): 08/01/20 10:49 Throat Culture & Sensitivity - Final Medications List Reviewed: Yes Assessment & Plan - Problems (Diagnosis) (1) COVID-19 Current Visit: Yes Status: Acute (2) Dehydration Current Visit: Yes Status: Acute (3) Fatigue Current Visit: Yes Status: Acute (4) Lethargy Current Visit: Yes Status: Acute (5) Chronic kidney disease, stage 3 Onset Date: 10/26/17 Current Visit: No Status: Chronic (6) Diabetes Onset Date: 10/26/17 Current Visit: No Status: Chronic Qualifiers: (7) GERD (gastroesophageal reflux disease) Onset Date: 10/26/17 Current Visit: No Status: Chronic Qualifiers: (8) Hx of kidney transplant Current Visit: No Status: Chronic (9) Hyperlipidemia Onset Date: 10/26/17 Current Visit: No Status: Chronic Qualifiers: (10) Hypertension Onset Date: 10/26/17 Current Visit: No Status: Chronic Qualifiers: (11) Dyspnea on exertion Current Visit: Yes Status: Acute (12) Persistent cough Current Visit: Yes Status: Acute - Plan Plan: Will continue with plan of care as mentioned below 1. Continue with immunosuppressants 2. Will Hep-Lock IV today 3. IV steroids 4. Albuterol inhaler as needed 5. Monitor oxygenation 6. Monitor inflammatory markers 7. Cough suppressant 8. Out of bed and to chair with meals and ambulate daily 9. GI and DVT prophylaxis Discharge Plan: Home Plan to discharge in: 48 Hours - Advance Directives Does patient have a Living Will: No Does patient have a Durable POA for Healthcare: No - Code Status/Comfort Care Code Status: Full Code Critical Care: No Time Spent Managing PTS Care (In Minutes): 35
--- NOTE | 2020-08-03 08:41 | P.DS ---
Discharge Date: 08/03/20 Disposition: ROUTINE DISCHARGE Discharge Condition: GOOD Reason for Admission: Dehydration/COVID + - Problems (1) COVID-19 Status: Acute (2) Dehydration Status: Acute (3) Fatigue Status: Acute (4) Lethargy Status: Acute (5) Chronic kidney disease, stage 3 Onset Date: 10/26/17 Status: Chronic (6) Diabetes Onset Date: 10/26/17 Status: Chronic Qualifiers: (7) GERD (gastroesophageal reflux disease) Onset Date: 10/26/17 Status: Chronic Qualifiers: (8) Hx of kidney transplant Status: Chronic (9) Hyperlipidemia Onset Date: 10/26/17 Status: Chronic Qualifiers: (10) Hypertension Onset Date: 10/26/17 Status: Chronic Qualifiers: (11) Dyspnea on exertion Status: Acute (12) Persistent cough Status: Acute Brief History of Present Illness: Patient is a 64yo who was admitted to the hospital with dehydration, and feeling weak and fatigued. She was found to have COVID pneumonia. Patient will be admitted for observation. Patient has been coughing and congested. Patient's inflammatory markers were elevated. Ferritin is normal however. Patient is on immunosuppressants. Renal function is stable. At this time will admit patient for observation. If she is doing well then we will anticipate discharge over the next 48 hr. Patient is not requiring any kind of additional supplemental oxygen. Will hold off on Remdesivir. Hospital Course: Patient is clinically doing much better. Coughing is improved. Oxygenation is improved. At this time, patient is stable for discharge home with outpatient follow up. Vital Signs/Physical Exam: Temp Pulse Resp BP Pulse Ox 97.3 F 76 16 152/78 H 98 08/03/20 08:09 08/03/20 08:09 08/03/20 08:09 08/03/20 08:09 08/03/20 08:09 General: Alert, In no apparent distress, Oriented x3 Laboratory Data at Discharge: WBC 2.6 K/uL (4.3-10.9) L D 08/02/20 06:00 Hgb 10.5 g/dL (12.0-15.0) L 08/02/20 06:00 Hct 32.7 % (36.0-45.0) L 08/02/20 06:00 Plt Count 262 K/uL (152-406) D 08/02/20 06:00 PT 12.0 SECONDS (9.5-12.5) 08/02/20 06:00 INR 1.02 08/02/20 06:00 APTT 28.0 SECONDS (24.3-36.9) 08/02/20 06:00 Sodium 135 mmol/L (136-145) L 08/02/20 06:00 Potassium 4.4 mmol/L (3.5-5.1) 08/02/20 06:00 BUN 28 mg/dL (7-18) H 08/02/20 06:00 Creatinine 1.64 mg/dL (0.55-1.3) H 08/02/20 06:00 Glucose 391 mg/dL (74-106) H 08/02/20 06:00 Magnesium 1.6 mg/dL (1.8-2.4) L 08/01/20 11:45 Total Bilirubin 0.4 mg/dL (0.2-1.0) 08/02/20 06:00 AST 11 U/L (15-37) L 08/02/20 06:00 ALT 15 U/L (12-78) 08/02/20 06:00 Alkaline Phosphatase 69 U/L (45-117) 08/02/20 06:00 Home Medications: Amlodipine [Norvasc*] 10 mg PO DAILY 07/04/19 Calcium Carbonate [Tums Regular*] 500 mg PO TID 07/04/19 Carvedilol [Coreg] 12.5 mg PO BID 07/04/19 Cholecalciferol (Vitamin D3) [Vitamin D3] 2,000 unit PO DAILY 07/04/19 Clonidine HCl [Catapres] 0.1 mg PO TID 07/04/19 Gabapentin [Neurontin*] 100 mg PO TID 07/04/19 Insulin Lispro [Humalog Kwikpen U-100] 7 units SQ TIDWM 07/04/19 Linagliptin [Tradjenta] 5 mg PO DAILY 07/04/19 Magnesium Chloride [Slow-Mag*] 64 mg PO DAILY 07/04/19 Omeprazole [Prilosec] 40 mg PO DAILY 07/04/19 Simvastatin 20 mg PO BEDTIME 07/04/19 Tacrolimus [Prograf] 2 cap PO BID 07/04/19 mycophenolate mofetiL [Mycophenolate Mofetil] 500 mg PO BID 07/04/19 predniSONE [Prednisone*] 5 mg PO DAILY 07/04/19 Albuterol Inhaler [Ventolin Inhaler*] 2 puff IH Q6H PRN #1 hfa.aer.ad 08/03/20 Apixaban [Eliquis] 5 mg PO BID #20 tablet 08/03/20 Azithromycin Tab [Zithromax*] 250 mg PO ZPAK #1 eber 08/03/20 Benzonatate [Tessalon Perle*] 200 mg PO TID PRN #30 cap 08/03/20 Cefdinir [Omnicef] 300 mg PO BID #10 capsule 08/03/20 Codeine/APAP [Tylenol W/Codeine #3 tab] 1 tab PO Q6HP PRN #30 tab 08/03/20 predniSONE [Prednisone*] 20 mg PO BID #15 tab 08/03/20 New Medications: Apixaban [Eliquis] 5 mg PO BID #20 tablet Cefdinir [Omnicef] 300 mg PO BID #10 capsule predniSONE [Prednisone*] 20 mg PO BID #15 tab Benzonatate [Tessalon Perle*] 200 mg PO TID PRN #30 cap PRN Reason: Cough Codeine/APAP [Tylenol W/Codeine #3 tab] 1 tab PO Q6HP PRN #30 tab PRN Reason: Pain Albuterol Inhaler [Ventolin Inhaler*] 2 puff IH Q6H PRN #1 hfa.aer.ad PRN Reason: Shortness Of Breath Azithromycin Tab [Zithromax*] 250 mg PO ZPAK #1 eber Patient Discharge Instructions: OK TO DC IV AND DC HOME if inflammatory markers are stable. FOLLOW-UP WITH PRIMARY CARE PROVIDER IN 1-2 WEEKS. FOLLOW-UP WITH CARDIOLOGY IN 1-2 WEEKS. RETURN TO THE ER IF symptoms worsen. CALL or TEXT DR. BOWEN AT [phone] IF ANY QUESTIONS REGARDING HOSPITAL STAY. PLEASE CALL THE FLOOR AT [phone] IF ANY MEDICATION OR NURSING QUESTIONS. Diet: Renal Activity: Fall precautions Followup: NONE,NONE [Primary Care Provider] - Brian Oh MD [ACTIVE - CAN ADMIT] - (Call to make an appointment. ) Time spent managing pt's care (in minutes): 35
[2020-08-03] MEDS: HOME MED 1 EA UNK (Linagliptin [Tradjenta] 5 MG Tablet) PO SCH (08:52)
[2020-08-03] MEDS ORDERED: METHYLPREDNISOLONE 40 MG INJ IV SCH (09:00)
[2020-08-03] MEDS: HOME MED 1 EA UNK (Mycophenolate Mofetil [Mycophenolate Mofetil] 500 MG Tablet) PO SCH (09:00)
[2020-08-03] MEDS: MAGNESIUM CHLORIDE 64 MG TAB PO SCH (09:00)
[2020-08-03] MEDS: TACROLIMUS PO SCH (09:00)
[2020-08-03] MEDS: CALCIUM CARBONATE CHEW 500MG TAB PO SCH (09:05)
[2020-08-03] MEDS: cloNIDine HCL 0.1 MG TAB PO SCH (09:05)
[2020-08-03] MEDS: carvediloL 6.25 MG TAB PO SCH (09:05)
[2020-08-03] MEDS: VITAMIN D 1000 UNIT TAB PO SCH (09:05)
[2020-08-03] MEDS: AMLODIPINE 10 MG TAB PO SCH (09:06)
[2020-08-03] MEDS: GABAPENTIN 100 MG CAP PO SCH (09:06)
[2020-08-03] MEDS: APIXABAN 5 MG TABLET PO SCH (09:06)
[2020-08-03] MEDS: INSULIN LISPRO 100 UNIT/1 ML SQ SCH ×2 (09:09→12:08)
[2020-08-03] MEDS: INSULIN -REGULAR HUMAN 50 UNIT/0.5 ML ML SQ SCH ×2 (09:09→12:08)
[2020-08-03 12:32] LABS: C-Reactive Protein 33.9 mg/L (<3.00); Ferritin 336.5 ng/mL (8-388)
[2020-08-03] MEDS ORDERED: D50W 25 GM/50 ML VIAL IV PRN (13:00)
[2020-08-04 22:09] VITALS: BP 152/78; TEMP 97.3
== END 2020-08-03 14:30 | disposition home or self-care (01) ==
LOC: ER 10:16 → ERHOLD 13:01 → 4TH 08-02 03:43
PROVIDERS: ADMIT Hospitalist; ATTEND Hospitalist
DX: U07.1 COVID-19 (principal); J12.82 Pneumonia due to coronavirus disease 2019; E86.0 Dehydration; I12.9 Hypertensive chronic kidney disease with stage 1 through stage 4 chronic kidney disease, or unspecified chronic kidney disease; E11.22 Type 2 diabetes mellitus with diabetic chronic kidney disease; N18.30 Chronic kidney disease, stage 3 unspecified; K21.9 Gastro-esophageal reflux disease without esophagitis; Z94.0 Kidney transplant status; E78.5 Hyperlipidemia, unspecified; R06.09 Other forms of dyspnea; Z89.429 Acquired absence of other toe(s), unspecified side; E11.40 Type 2 diabetes mellitus with diabetic neuropathy, unspecified; Z79.4 Long term (current) use of insulin
CPT/HCPCS: 93005; 87040 ×2; 87070; 85025 ×2; 80048 ×2; 36415 ×2; 83735; 85610 ×2; 82947 ×8; 85379 ×2; 80076; 87081; 85730; 84484; 82728 ×2; 80053; 84145; 83880 ×2; 0240U; 86140 ×2; 71045; 96374; 99284; J3475; J0696; J7040; J7030 ×2; J2920 ×6; G0378 ×4; J1815

== ENCOUNTER 2021-06-22 17:33 | Inpatient (IN) | payer OTHER ==
--- OUTSIDE RECORDS SUMMARY | 2021-06-22 17:37 | XMS REPORT | Continuity of Care Document ---
:1955 Author Organization Formerly [facility] t Address Formerly [facility] [place] [address] Care Team Providers Name Role Phone BERNARDA JACKSON Attending Clinician Unavailable SURJIT ATKINSON Attending Clinician Unavailable MAYA WELLER Attending Clinician Unavailable ENRIKE HANSEN Attending Clinician Unavailable MD ENRIKE HANSEN Attending Clinician Unavailable SANDRA CERVANTES Attending Clinician Unavailable NIKKY COMBS Attending Clinician Unavailable MD NIKKY COMBS Attending Clinician Unavailable BHUMI CROWE Attending Clinician Unavailable YULISA HARVEY Attending Clinician Unavailable KYRA PATEL Attending Clinician Unavailable TYRONE Admitting Clinician Unavailable MD TYRONE Admitting Clinician Unavailable LAURYN Admitting Clinician Unavailable MD LAURYN Admitting Clinician Unavailable ALL Admitting Clinician Unavailable RUTH ANN PATEL Admitting Clinician Unavailable Problems This patient has no known problems. Allergies, Adverse Reactions, Alerts This patient has no known allergies or adverse reactions. Medications Ordered Filled Start Stop Current Ordering Indication Dosage Frequency Signature Comments Components Source Medication Medication Date Date Medication? Clinician (SIG) Name Name Benzonatate Benzonatate 2020- No Na Long [address] [facility] 8-14 04-13 [facility] needed [facility] Cetirizine Cetirizine Yes Na Long [address] [facility] HCl HCl 6-22 Orally [facility] - 00:[facility]: Once a day [facility] 00 [facility] Albuterol Albuterol Yes Na Long [address] [facility] Sulfate HFA Sulfate HFA 9-25 L [facility] - 00:00: [facility] 00 [facility] ent Clinics Cetirizine Cetirizine Yes Na Long TAKE [address] [facility] HCl HCl TABLET BY [facility] - MOUTH [facility] EVERY DAY [facility] PredniSONE PredniSONE Yes Na Long 1 tablet [...] [facility] - (Isophane) (Isophane) [facility] Prilosec Prilosec Yes Na Long not [facility] defined [facility] Omeprazole Omeprazole Yes Na Long [address] [facility] 30 minutes [facility] - before [facility] morning l meal [facility] Gabapentin Gabapentin Yes Na Long [address] [facility]ics Prolia Prolia Yes Na Long as [facility] directed [facility] NovoLog NovoLog Yes Na Long as [facility] Flexpen Flexpen directed [facility] Clonidine Clonidine Yes Na Long [address] [facility] HCl HCl [facility] Senokot S Senokot S Yes Na Long [address] [facility] in the [facility] - evening as [facility] needed l [facility] Magnesium Magnesium Yes Na Long [address] [facility] Chloride Chloride [facility] Doxycycline Doxycycline Yes Na Long [address] [facility] Hyclate Hyclate [facility] Azithromyci Azithromyci Yes Na Long [address] [facility] n n on the [facility] - first day, [facility] then 1 l tablet Outpat[facility] daily for ent 4 days Clinics Flonase Flonase Yes Na Long [address] [facility] each [facility] - nostril [facility] Humalog Humalog Yes Na Long not [facility] defined [facility] Procedures This patient has no known procedures. Encounters Start End Encounter Admission Attending Care Care Encounter Source Date/Time Date/Time Type Type Clinicians Facility Department ID 2021-04-07 2021-04-07 Outpatient [facility] [id number] [place] 00:00:00 00:00:00 BERNARDA [address] 2021-04-07 2021-04-07 Outpatient [facility] [id number] [place] 00:00:00 00:00:00 BERNARDA [address] 2021-02-18 2021-02-18 Outpatient [facility] [id number] [place] 00:00:00 00:00:00 SURJIT [address] 2021-02-16 2021-02-16 Outpatient WELLER, [facility] [id number] [place] 00:00:00 00:00:00 MAYA [address] 2021-02-09 2021-02-09 Outpatient [facility] [id number] [place] 00:00:00 00:00:[address] 2021-01-27 2021-01-27 Outpatient ENRIKE HANSEN [place] [id number] [place] 00:00:00 00:00:[address] 2021-01-22 2021-01-22 Outpatient ENRIKE HANSEN [facility] [id number] [place] 00:00:00 00:00:[address] 2021-01-21 2021-01-21 Outpatient SANDRA CERVANTES [facility] [id number] [place] 00:00:00 00:00:[address] 2021-01-21 2021-01-21 Outpatient [facility] [id number] [place] 00:00:00 00:00:[address] 2021-01-21 2021-01-21 Outpatient ENRIKE HANSEN [facility] [id number] [place] 00:00:00 00:00:[address] 2021-01-20 2021-01-20 Outpatient ABDELLATIF, [facility] [id number] [place] 00:00:00 00:00:00 BERNARDA [address] 2021-01-19 2021-01-19 Outpatient WELLER, [facility] [id number] [place] 00:00:00 00:00:00 MAYA [address] 2021-01-19 2021-01-19 Outpatient SADMELI, [facility] [id number] [place] 00:00:00 00:00:00 SURJIT [address] 2021-01-19 2021-01-19 Outpatient SADHU, [facility] [id number] [place] 00:00:00 00:00:00 SURJIT [address] 2020-12-24 2020-12-24 Outpatient SADMELI, [facility] [id number] [place] 00:00:00 00:00:00 SURJIT [address] 2020-12-242020-12-24 Outpatient ABDELLATIF, [facility] [id number] [place] 00:00:00 00:00:00 BERNARDA [address] 2020-11-25 2020-11-25 Outpatient ABDELLATIF, [facility] [id number] [place] 00:00:00 00:00:00 BERNARDA [address] 2020-11-24 2020-11-24 Outpatient WELLER, [facility] [id number] [place] 00:00:00 00:00:00 MAYA [address] 2020-11-12 2020-11-12 Outpatient SADHU, [facility] [id number] [place] 00:00:00 00:00:00 SURJIT [address] 2020-11-12 2020-11-12 Outpatient [facility] [id number] [facility] 00[facility]00[facility]00 [facility]00[facility] 2020-11-10 2020-11-10 Outpatient WELLER, [facility] [id number] [place] 00:00:00 00:00:00 MAYA 070 [facility] 2020-10-28 2020-10-28 Outpatient ABDELLATIF, [facility] [id number] [place] 00:00:00 00:00:00 BERNARDA [address] 2020-10-27 2020-10-27 Outpatient ABDELLATIF, [facility] [id number] [place] 00:00:00 00:00:00 BERNARDA [address] 2020-10-27 2020-10-27 Outpatient WELLER, [facility] [id number] [place] 00:00:00 00:00:00 MAYA [address] 2020-10-14 2020-10-14 Outpatient ABDELLATIF, [facility] [id number] [place] 00:00:00 00:00:00 BERNARDA [address] 2020-10-13 2020-10-13 Outpatient WELLER, [facility] [id number] [place] 00:00:00 00:00:00 MAYA [address] 2020-10-06 2020-10-06 Outpatient [facility] [id number] [facility] 00[facility]00:00 00[facility]00[facility] 2020-09-30 2020-09-30 Outpatient NITHIN, [facility] [id number] [place] 00:00:00 00:00:00 MAYA [address] 2020-09-30 2020-09-30 Outpatient NITHIN, [facility] [id number] [place] 00:00:00 00:00:00 MAYA [address] 2020-09-26 2020-09-26 Outpatient [facility] [id number] [facility] 2020-09-17 2020-09-24 Inpatient FAN, [facility] [id number] [place] 00:00:00 00:00:00 JINPING [address] 2020-08-30 2020-09-17 Inpatient FAN, [facility] [id number] [place] 00:00:00 00:00:00 JINPING [address] 2020-08-08 2020-08-08 Outpatient [facility] [id number] [facility] 2020-08-06 2020-08-06 Outpatient [facility] [id number] [facility] 2020-08-05 2020-08-05 Outpatient ABDELLATIF, [facility] [id number] [place] 00:00:00 00:00:00 BERNARDA [address] 2020-08-05 2020-08-05 Outpatient SEBASTIEN, [facility] [id number] [place] 00:00:00 00:00:00 AHMED [address] 2020-08-04 2020-08-04 Outpatient [facility] [id number] [facility] 2020-07-07 2020-07-07 Outpatient ABDELLATIF, [facility] [id number] [place] 00:00:00 00:00:00 BERNARDA [address] 2020-06-02 2020-06-02 Outpatient [facility] [id number] [facility] 2020-05-22 2020-05-22 [id number] [facility] 2020-05-20 2020-05-20 Outpatient DEMETRIO, [facility] [id number] [place] [address] 00:00:00 00:00:00 SURJIT [address] 2020-03-14 2020-03-14 [facility] [id number] [facility] 16:20:00 16:20:00 t [employer] s - Drive [facility] Medicine Outpati ent Clinics 2020-02-23 2020-02-23 [facility] [id number] 17:58:00 17:58:00 t [employer] s - Drive [facility] Medicine Outpati ent Clinics 2020-02-18 2020-02-18 [facility] [id number] 08:20:00 08:20:00 t [employer] s - [employer] [facility] Medicine Outpati ent Clinics 2020-01-22 2020-01-22 Outpatient NITHIN, [facility] [id number] [place] 00:00:00 00:00:00 MAYA Delarosa [facility] 2020-01-21 2020-01-21 [facility] [id number] 13:00:00 13:00:00 t [employer] [facility] Medicine Outpati ent Clinics 2020-01-15 2020-01-15 Outpatient ABDELLATIF, [facility] [id number] [place] 00:00:00 00:00:00 BERNARDA [address] 2019-12-11 2019-12-11 [facility] [id number] [facility] 16:09:00 16:09:00 t [facility] [employer] [place] s - [facility] Medicine Outpati ent Clinics 2019-12-07 2019-12-07 [facility] [id number] 13:40:00 13:40:00 t [facility] Road [facility] Medicine Outpati ent Clinics 2019-12-07 2019-12-07 [facility] [id number] [facility] 08:06:00 08:06:00 [facility] Medicine Outpati ent Clinics 2019-12-06 2019-12-06 [facility] [id number] 11:59:00 11:59:00 [facility] Medicine Outpati ent [facility] 2019-11-23 2019-11-25 Outpatient WES [facility] [id number] [place] 00:00:00 00:00:00 YULISA [address] 2019-10-11 2019-10-11 Outpatient [facility] [id number] [facility] 09:00:00 09:00:00 [facility] ent Clinics Results Test Description Test Time Test Comments Results Result Comments Source SARS-CoV-2 (COVID-19) RNA [Presence] in Respiratory sp ecimen by 2021-01-21 18:33:15 FROYLAN with probe detection Test Item Value Reference Range Interpretation Comme nts SARS-CoV-2 (COVID-19) RNA [Presence] in Respiratory Not detected No t-Detected specimen by FROYLAN with probe detection (test code = 46548-6) Whether 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 employed in a healthcare setting (test code = 14439-4) Whether the patient has symptoms related to condition of interest (test code = 15331-3) Patient was hospitalized because of this condition (test code = 25176-9) Whether the patient was admitted to intensive care unit (ICU) for condition of interest (test code = 61456-9) Whether patient resides in a congregate care setting (test code = 05762-9) SARS-CoV-2 (COVID-19) RNA [Presence] in Respiratory specimen by FROYLAN with probe [id number] 19:48:29 Test Item Value Reference Range Interpretation Comments SARS-CoV-2 (COVID-19) RNA Not detected Not-Detected [Presence] in Respiratory specimen by FROYLAN with probe detection (test code = 16007-2) SARS-CoV-2 (COVID-19) IgG+IgM Ab [Presence] in Serum or Plasma by Immunoassay 2020-09-01 06:21:00 Test Item Value Reference Range Interpretation Comments SARS-CoV-2 (COVID-19) IgG+IgM Ab Positive [Presence] in Serum or Plasma by Immunoassay (test code = 48362-2) SARS-CoV-2 (COVID-19) RNA [Presence] in Respiratory specimen by FROYLAN with probe [id number] 12:03:17 Test Item Value Reference Range Interpretation Comments SARS-CoV-2 (COVID-19) RNA [Presence] Detected Not-Detected in Respiratory specimen by FROYLAN with probe detection (test code = 40608-8) TISSUE [id number] 16:45:00 Test Item Value Reference Range Interpretation Comments LAB AP CPT CODE (BEAKER) (test code = 46681 2749) TACROLIMUS [id number] 09:09:00 Test Item Value Reference Range Interpretation Comments TACROLIMUS BLOOD (BEAKER) (test 6.8 ng/mL 10.0-20.0 L code = 657) POCT-GLUCOSE [id number] 07:33:00 Test Item Value Reference Range Interpretation Comments POC-GLUCOSE METER 138 mg/dL 70-[address] [facility] 6720 ([facility]) (test code = [place] 1538) [address] BASIC METABOLIC [id number] 05:08:00 Test Item Value Reference Range Interpretation [...] PATIEN TS. CBC W/PLT COUNT & AUTO [id number] 04:51:00 Test Item Value Reference Range Interpretation [...] L 0.00-0.20 (test code = 417) 0.00POCT-GLUCOSE [id number] 01:09:00 Test Item Value Reference Range Interpretation Comments POC-GLUCOSE METER 97 mg/dL 70-110 TESTED AT [place] [address] ([facility]) (test code = [place] [facility] [address] 1538) POCT-GLUCOSE [id number] 21:30:00 Test Item Value Reference Range Interpretation Comments POC-GLUCOSE METER 424 mg/dL 70-110 HH Notified R Bibiana PILLAI/TESTED ([facility]) (test code = AT [address] 1538) [place] [address] POCT-GLUCOSE [id number] 17:04:00 Test Item Value Reference Range Interpretation Comments POC-GLUCOSE METER 198 mg/dL 70-110 H TESTED AT [place] [address] ([facility]) (test code = [place] [facility] 1538) [address] POCT-GLUCOSE [id number] 12:51:00 Test Item Value Reference Range Interpretation Comments POC-GLUCOSE METER 205 mg/dL 70-110 H TESTED AT [place] [address] ([facility]) (test code = [place] [facility] 1538) [address] TACR[employer]US [id number] 12:35:00 Test Item Value Reference Range Interpretation Comments TACROLIMUS BLOOD ([facility]) (test 5.9 ng/mL 10.0-20.0 L code = 657) POCT-GLUCOSE [id number] 08:32:00 Test Item Value Reference Range Interpretation Comments POC-GLUCOSE METER 60 mg/dL 70-110 L TESTED AT [place] [address] ([facility]) (test code = [place] [facility] [address]38) POCT-GLUCOSE [id number] 21:41:00 Test Item Value Reference Range Interpretation Comments POC-GLUCOSE METER 202 mg/dL 70-110 H TESTED AT [place] [address] ([facility]) (test code = [place] [facility] 1538) [address] POCT-GLUCOSE [id number] 17:36:00 Test Item Value Reference Range Interpretation Comments POC-GLUCOSE METER 191 mg/dL 70-110 H TESTED AT [place] [address] ([facility]) (test code = [place] [facility] 1538) [address] POCT-GLUCOSE [id number] 11:01:00 Test Item Value Reference Range Interpretation Comments POC-GLUCOSE METER 232 mg/dL 70-110 H TESTED AT [place] [address] ([facility] (test code = [place] 15[address]) [address] TACROLIMUS [id number] 10:16:00 Test Item Value Reference Range Interpretation Comments TACROLIMUS BLOOD (BEAKER) (test 8.3 ng/mL 10.0-20.0 L code = 657) POCT-GLUCOSE [id number] 08:16:00 Test Item Value Reference Range Interpretation Comments POC-GLUCOSE METER 366 mg/dL 70-110 H TESTED AT [place] [address] ([facility] (test code = [facility] [place] 15[address]) [address] BASIC METABOLIC [id number] 06:57:00 Test Item Value Reference Range Interpretation [...] APPLICABLE FOR DIALYSIS PATIEN TS. HEMOGLOBIN AND [id number] 06:40:00 Test Item Value Reference Range Interpretation Comments HEMOGLOBIN (BEAKER) (test code = 11.4 GM/DL 12.0-15.0 L 410) HEMATOCRIT (BEAKER) (test code = 36.1 % 36.0-45.0 411) POCT-GLUCOSE [id number] 23:30:00 Test Item Value Reference Range Interpretation Comments POC-GLUCOSE METER 274 mg/dL 70-110 H TESTED AT [place] [address] (BEAKER) (test code = [place] 1538) [address] BASIC METABOLIC [id number] 18:49:00 Test Item Value Reference Range Interpretation [...] APPLICABLE FOR DIALYSIS PATIEN TS. HEMOGLOBIN AND [id number] 18:35:00 Test Item Value Reference Range Interpretation Comments HEMOGLOBIN (BEAKER) (test code = 11.5 GM/DL 12.0-15.0 L 410) HEMATOCRIT (BEAKER) (test code = 35.6 % 36.0-45.0 L 411) BASIC METABOLIC [id number] 12:08:00 Test Item Value Reference Range Interpretation [...] 0-0 (BEAKER) (test code = 413) 0.00POTASSIUM-STAT [id number] 11:43:00 Test Item Value Reference Range Interpretation Comments POTASSIUM (BEAKER) (test code = 4.3 meq/L 3.6-5.5 379) POCT-GLUCOSE [id number] 11:34:00 Test Item Value Reference Range Interpretation Comments POC-GLUCOSE METER 82 mg/dL 70-[address] [facility] 6720 (BEAKER) (test code = [place] [address] 1538) URINE [id number] 11:19:00 Test Item Value Reference Range Interpretation Comments CULTURE (BEAKER) (test 20-29,000 col/mL skin code = 1095) tea URINALYSIS W/ [id number] 15:16:00 Test Item Value Reference Range Interpretation [...] = 2795) CBC W/PLT COUNT & AUTO [id number] 14:56:00 Test Item Value Reference Range Interpretation [...] 0.00-0.20 (test code = 417) 0.00BASI METABOLIC [id number] 14:55:00 Test Item Value Reference Range Interpretation [...] I S NOT APPLICABLE FOR DIALYSIS PATIISAIAH BASS [id number] 14:51:00 Test Item Value Reference Range Interpretation Comments PARTIAL THROMBOPLASTIN TIME 30.7 seconds 22.5-36.0 (BEAKER) (test code = 760) PROTHROMBIN [id number] 14:50:00 Test Item Value Reference Range Interpretation Comments PROTIME (ASHLEY) (test code = 14.3 seconds 11.7-14.7 759) INR (BEAKER) (test code = 370) 1.1 <=5.9 RECOMMENDED COUMADIN/WARFARIN INR THERAPY RANGESSTANDARD DOSE: 2.0 - 3.0 Includes: PROPHYLAXIS forvenous thrombosis, systemic embolization; TREATMENT for venous thrombosis and/or pulmonary embolus.HIGH RISK: Target INR is 2.5-3.5 for patients with mechanical heart valves.
[2021-06-22 18:07] LABS: Absolute Lymphocytes (CBC) 0.5 K/uL (0.7-4.9); Basophils % 0.4 % (0-1.3); Hematocrit 28.7 % (36.0-45.0); Lymphocytes % 5.7 % (15.3-44.8); MPV 7.4 fL (7.6-11.3); RBC Red Blood Cell Count 3.25 M/uL (3.86-4.86)
[2021-06-22 18:11] LABS: Protime INR 1.03
[2021-06-22 18:33] LABS: ALT/SGPT 84 U/L (12-78); AST/SGOT 65 U/L (15-37); Alkaline Phosphatase 200 U/L (45-117); BUN Blood Urea Nitrogen 61 mg/dL (7-18); Bicarbonate 19 mmol/L (21-32); Bilirubin Direct < 0.1 mg/dL (0-0.2); Bilirubin Total 0.2 mg/dL (0.2-1.0); Magnesium 2.7 mg/dL (1.8-2.4); NT PRO-BNP 7590 pg/mL (<125); Protein, Total 7.1 g/dL (6.4-8.2); Sodium Level 136 mmol/L (136-145); Troponin (Emerg Dept Use Only) 0.08 ng/mL (0.0-0.045)
[2021-06-22 18:35] LABS: Glucose Level 443 mg/dL (74-106); Potassium 6.2 mmol/L (3.5-5.1)
[2021-06-22] MEDS ORDERED: INSULIN -REGULAR HUMAN 50 UNIT/0.5 ML ML ONE (18:55)
[2021-06-22] MEDS ORDERED: CALCIUM GLUCONATE 1 GM IVPB 1 GM/50 ML BAG IV ONE (18:55)
[2021-06-22] MEDS ORDERED: ALBUTEROL 2.5 MG/3 ML NEB SOL ONE (18:57)
[2021-06-22] MEDS ORDERED: SOD POLYSTYREN SUL 15 GM/60 ML UCUP ONE (18:57)
--- NOTE | 2021-06-22 19:01 | EDPHYS ---
Physician Documentation [facility] Name: Paola Mihsra Age: 65 yrs Sex: Female : 1955 Arrival Date: 06/22/2021 Time: 17:35 Bed 28 Private MD: Karli Grijalva ED Physician Juan Lindsey HPI: 06/22 18:47 This 65 yrs old Female presents to ER via Ambulatory with complaints of amanda Dizziness, General Weakness. 18:47 The patient presents with dizziness, generalized weakness. Onset: The symptoms/episode amanda began/occurred 2 day(s) ago. Context: occurred at an unknown location. Modifying factors: The symptoms are alleviated by nothing, the symptoms are aggravated by nothing. Associated signs and symptoms: The patient has no apparent associated signs or symptoms. Severity of symptoms: At their worst the symptoms were mild in the emergency department the symptoms are unchanged. Patient's baseline: Neuro: alert and fully oriented. The patient has experienced similar episodes in the past, several times. 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 - Social history:: Smoking status: Patient denies any tobacco usage or history of. - Family history:: not pertinent. ROS: 18:47 Constitutional: Negative for fever, chills, and weight loss, Eyes: Negative for injury, amanda pain, redness, and discharge, ENT: Negative for injury, pain, and discharge, Neck: Negative for injury, pain, and swelling, Cardiovascular: Negative for chest pain, palpitations, and edema, Respiratory: Negative for shortness of breath, cough, wheezing, and pleuritic chest pain, Abdomen/GI: Negative for abdominal pain, nausea, vomiting, diarrhea, and constipation, : Negative for injury, bleeding, discharge, and swelling, MS/Extremity: Negative for injury and deformity, Skin: Negative for injury, rash, and discoloration, Psych: Negative for depression, anxiety, suicide ideation, homicidal ideation, and hallucinations, Allergy/Immunology: Negative for hives, rash, and allergies, Endocrine: Negative for neck swelling, polydipsia, polyuria, polyphagia, and marked weight changes. 18:47 Back: 18:47 Back: Negative for injury or acute deformity, decreased range of motion, pain at rest, pain with movement, radiated pain. 18:47 Neuro: Positive for dizziness. Exam: 18:47 Constitutional: This is a well developed, well nourished patient who is awake, alert, amanda and in no acute distress. Head/Face: Normocephalic, atraumatic. Eyes: Pupils equal round and reactive to light, extra-ocular motions intact. Lids and lashes normal. Conjunctiva and sclera are non-icteric and not injected. Cornea within normal limits. Periorbital areas with no swelling, redness, or edema. ENT: Nares patent. No nasal discharge, no septal abnormalities noted. Tympanic membranes are normal and external auditory canals are clear. Oropharynx with no redness, swelling, or masses, exudates, or evidence of obstruction, uvula midline. Mucous membranes moist. Neck: Trachea midline, no thyromegaly or masses palpated, and no cervical lymphadenopathy. Supple, full range of motion without nuchal rigidity, or vertebral point tenderness. No Meningismus. Chest/axilla: Normal chest wall appearance and motion. Nontender with no deformity. No lesions are appreciated. Cardiovascular: Regular rate and rhythm with a normal S1 and S2. No gallops, murmurs, or rubs. Normal PMI, no JVD. No pulse deficits. Respiratory: Lungs have equal breath sounds bilaterally, clear to auscultation and percussion. No rales, rhonchi or wheezes noted. No increased work of breathing, no retractions or nasal flaring. Abdomen/GI: Soft, non-tender, with normal bowel sounds. No distension or tympany. No guarding or rebound. No evidence of tenderness throughout. Back: No spinal tenderness. No costovertebral tenderness. Full range of motion. Skin: Warm, dry with normal turgor. Normal color with no rashes, no lesions, and no evidence of cellulitis. MS/ Extremity: Pulses equal, no cyanosis. Neurovascular intact. Full, normal range of motion. Neuro: Awake and alert, GCS 15, oriented to person, place, time, and situation. Cranial nerves II-XII grossly intact. Motor strength 5/5 in all extremities. Sensory grossly intact. Cerebellar exam normal. Normal gait. Psych: Awake, alert, with orientation to person, place and time. Behavior, mood, and affect are within normal limits. 19:44 ECG was reviewed by the Attending Physician. [facility] Vital Signs: 17:45 BP 125 / 58; Pulse 50; Resp 18 S; Temp 97.8(TE); Pulse Ox 100% on R/A; Weight 51.71 kg aa5 (R); Height 5 ft. 1 in. (154.94 cm) (R); 18:35 BP 130 / 63; Pulse 48; Resp 18 S; Pulse Ox 99% on R/A; as6 19:10 BP 149 / 68; Pulse 55; Resp 12; Pulse Ox 100% on R/A; Pain 0/10; tw5 17:45 Body Mass Index 21.54 (51.71 kg, 154.94 cm) aa5 MDM: 18:37 Patient medically screened. amanda 18:51 Differential diagnosis: cardiac arrhythmia, generalized weakness, hypovolemia, sepsis, amanda TIA. Data reviewed: vital signs, nurses notes, lab test result(s), EKG, radiologic studies, CT scan, plain films. Data interpreted: court recording monitor: rate is 48 beats/min, rhythm is regular. Test interpretation: by ED physician or midlevel provider: ECG, plain radiologic studies. Counseling: I had a detailed discussion with the patient and/or guardian regarding: the historical points, exam findings, and any diagnostic results supporting the discharge/admit diagnosis, lab results, radiology results, the need for further work-up and treatment in the hospital. 06/22 17:52 Order name: Basic Metabolic Panel [facility] 06/22 17:52 Order name: CBC with Diff 06/22 17:52 Order name: LFT's; Complete Time: 18:38 [facility] 06/22 17:52 Order name: Magnesium; Complete Time: 18:38 [facility] 06/22 17:52 Order name: NT PRO-BNP; Complete Time: 18:38 [facility] 06/22 17:52 Order name: PT-INR; Complete Time: 18:38 [facility] 06/22 17:52 Order name: Troponin (emerg Dept Use Only); Complete Time: 18:38 [facility] 06/22 17:52 Order name: Basic Metabolic Panel; Complete Time: 18:38 EDMS 06/22 17:52 Order name: CBC with Automated Diff; Complete Time: 18:38 EDMS 06/22 19:02 Order name: COVID-19 SARS RT PCR (Document "Date of Onset" if Symptomatic); Complete bd Time: 22:06/22 19:39 Order name: Osmolality, Urine; Complete Time: 08:01 EDMS 06/22 19:39 Order name: UR POTASSIUM; Complete Time: 08:01 EDMS 06/22 19:39 Order name: Ur Protein; Complete Time: 08:01 EDMS 06/22 19:39 Order name: UR SODIUM; Complete Time: 08:01 EDMS 06/22 19:39 Order name: Urinalysis W/Microscopic EDMS 06/22 19:39 Order name: Creatine Phosphokinase; Complete Time: 22:21 EDMS 06/22 19:42 Order name: CBC with Automated Diff EDMS 06/22 19:42 Order name: Comprehensive Metabolic Panel; Complete Time: 08:01 EDMS 06/22 19:42 Order name: Magnesium; Complete Time: 08:01 EDMS 06/22 19:42 Order name: Phosphorus; Complete Time: 08: EDMS 06/22 19:50 Order name: Potassium EDMS 06/22 20:20 Order name: Glucose, Ancillary Testing; Complete Time: 22:21 EDMS 06/22 20:42 Order name: Chem 7 amanda 06/22 21:35 Order name: Basic Metabolic Panel; Complete Time: 22:18 EDMS 06/23 00:05 Order name: ABG Arterial Blood Gas; Complete Time: 08:01 EDMS 06/23 00:53 Order name: Urinalysis; Complete Time: 08:01 EDMS 06/23 00:57 Order name: Urine Microscopic Only; Complete Time: 08:01 EDMS 06/23 07:26 Order name: Vitamin D, 25 (OH), TOTAL; Complete Time: 08:01 EDMS 06/23 07:26 Order name: PTH Intact; Complete Time: 08:01 EDMS 06/23 09:15 Order name: CBC with Automated Diff EDMS 06/22 17:50 Order name: CT Head Brain wo Cont; Complete Time: 22:21 aa5 06/22 17:52 Order name: IV Saline Lock; Complete Time: 17:58 aa5 06/22 17:52 Order name: Labs collected and sent; Complete Time: 17:58 aa5 06/22 18:44 Order name: CT Stone Protocol; Complete Time: 22:21 amanda 06/22 18:47 Order name: Shen; Complete Time: 20:33 amanda 06/22 19:22 Order name: Giovanni. Order: place shen catheter, after giving 160mg lasix monitor urine la1 output with shen for two hours. CALL horse race starter. 06/22 19:22 Order name: Giovanni. Order: Call Dr. Sandoval with nephrology with two hour post lasix urine la1 output 06/22 19:42 Order name: CONS Physician Consult EDVT 06/22 22:04 Order name: US; Complete Time: 22:21 EDVT 06/23 11:53 Order name: Basic Metabolic Panel EDVT 06/23 11:53 Order name: Troponin I EDVT 06/23 11:53 Order name: NT PRO-BNP EDMS EC:44 Rate is 45 beats/min. Rhythm is regular. QRS Ethel is Normal. VA interval is normal. QRS amanda interval is normal. QT interval is normal. No Q waves. T waves are Peaked in leads V1, V2, V3, V4. Clinical impression: Suggests hyperkalemia and No evidence of ischemia. Administered Medications: 18:55 CANCELLED (Duplicate Order): Sodium Bicarbonate 0.5 amp IVP once; (50 mL); equals 50 mEqcha 19:15 CANCELLED (Other Intervention Used): Lasix (furosemide) 80 mg IVP once; give over 2 la1 minutes, after 500 cc bolus 19:55 Drug: Insulin Regular Human 10 units {Co-Signature: df1 (Tere Alfaro).} Route: IVP; tw5 Site: right femoral; 21:13 Follow up: Response: No adverse reaction tw5 19:55 Drug: Sodium Bicarbonate 1 amp Route: IVP; Site: right femoral; tw5 20:34 Follow up: Response: No adverse reaction; Cardiac rhythm changed tw5 20:18 Drug: NS 0.9% 500 ml Route: IV; Rate: bolus; Site: right femoral; tw5 20:34 Follow up: Response: No adverse reaction; IV Status: Completed infusion tw5 20:20 Drug: Lasix (furosemide) 160 mg Route: IVP; Site: right femoral; tw5 20:42 Follow up: Response: No adverse reaction tw 20:26 Drug: Calcium Gluconate 1 grams Route: IVPB; Infused Over: 15 mins; Site: right femoral;tw5 20:53 Follow up: IV Status: Completed infusion tw 20:26 Drug: Albuterol - atroVENT (ipratropium) (3:1) (2.5 mg - 0.5 mg) 3 ml Route: Nebulizer; tw 20:34 Follow up: Response: No adverse reaction tw 20:33 Drug: Kayexalate (polystyrene) 45 grams Route: PO; tw 20:43 Follow up: Response: No adverse reaction tw Point of Care Testing: Blood Glucose: 17:49 Blood Glucose: 396 mg/dL; aa5 Ranges: Critical Glucose Levels:Adult <50 mg/dl or >400 mg/dl <40 mg/dl or >180 mg/dl Disposition Summary: 06/22/21 19:01 Hospitalization Ordered Hospitalization Status: Inpatient Admission amanda Condition: Serious amanda Problem: new amanda Symptoms: have improved amanda Bed/Room Type: Standard amanda Provider: Fito Bernal(06/22/21 19:36) amanda Location: Intensive Care Unit(06/22/21 23:35) mw Room Assignment: ER - 10(06/22/21 23:35) mw Diagnosis - Acute kidney failure, unspecified amanda - Hyperkalemia amanda - Bradycardia, unspecified amanda - Dizziness and giddiness amanda Forms: - Medication Reconciliation Form amanda - SBAR form amanda Signatures: Dispatcher [employer] EDMS Blanka Hernadez RN RN Juan Lindsey MD MD cha Calderon, Audri, RN RN aa5 Vel Banks FNP-C DENTAL PRACTICE MANAGER-Aden1 Araseli Clay tw5 Tere Alfaro df1 Corrections: (The following items were deleted from the chart) 18:55 18:47 Sodium Bicarbonate 0.5 amp IVP once; (50 mL); equals 50 mEq ordered. amanda amanda 19:02 19:01 Telemetry/MedSurg (Inpatient) amanda amanda 19:02 19:01 amanda amanda 19:15 18:58 Lasix (furosemide) 80 mg IVP once; give over 2 minutes, after 500 cc bolus la1 ordered. amanda 19:36 19:01 Prezas, Fuentes amanda amanda 22:51 19:02 Intensive Care Unit amanda mw 22:51 19:02 amanda mw 23:35 22:51 [facility] ER [facility] mw 23:35 [facility]
--- NOTE | 2021-06-22 19:01 | ER ---
Nurse's Notes [facility] Name: Paola Mishra Age: 65 yrs Sex: Female : 1955 Arrival Date: 06/22/2021 Time: 17:35 Bed 28 Private MD: Karli Grijalva Diagnosis: Acute kidney failure, unspecified;Hyperkalemia;Bradycardia, unspecified;Dizziness and giddiness Presentation: 06/22 17:45 Chief complaint: Patient states: generalized weakness, dizziness, numbness to feet and aa5 jonny hands. Pt's daughter reports mild burning with urination. Pt denies recent illness, denies nausea/vomiting. Coronavirus screen: At this time, the client does not indicate any symptoms associated with coronavirus-19. Ebola Screen: No symptoms or risks identified at this time. Initial Sepsis Screen: Does the patient meet any 2 criteria? No. Patient's initial sepsis screen is negative. Does the patient have a suspected source of infection? No. Patient's initial sepsis screen is negative. Risk Assessment: Do you want to hurt yourself or someone else? Patient reports no desire to harm self or others. Onset of symptoms was June 22, 2021. 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 - Social history:: Smoking status: Patient denies any tobacco usage or history of. - Family history:: not pertinent. Screenin:28 Abuse screen: Denies threats or abuse. Nutritional screening: No deficits noted. tw2 Tuberculosis screening: No symptoms or risk factors identified. Fall Risk Secondary diagnosis (15 points) impaired mobility. Assessment: 18:29 General: Appears in no apparent distress. slender, well groomed. Pain: Denies pain. tw2 Neuro: Level of Consciousness is awake, alert, obeys commands, Oriented to person, place, time, situation, Reports dizziness, weakness. Cardiovascular: Respiratory: Airway is patent Respiratory effort is even, unlabored, Respiratory pattern is regular, symmetrical. GI: No signs and/or symptoms were reported involving the gastrointestinal system. : Parent/caregiver report the patient having burning with urination. 19:10 General: Behavior is anxious, crying. Pain: Denies pain. tw5 Vital Signs: 17:45 BP 125 / 58; Pulse 50; Resp 18 S; Temp 97.8(TE); Pulse Ox 100% on R/A; Weight 51.71 kg aa5 (R); Height 5 ft. 1 in. (154.94 cm) (R); 18:35 BP 130 / 63; Pulse 48; Resp 18 S; Pulse Ox 99% on R/A; as6 19:10 BP 149 / 68; Pulse 55; Resp 12; Pulse Ox 100% on R/A; Pain 0/10; tw5 17:45 Body Mass Index 21.54 (51.71 kg, 154.94 cm) aa5 ED Course: 17:35 Patient arrived in ED. as 17:36 Karli Grijalva is Private Physician. as 17:45 Arm band placed on. aa5 17:46 Triage completed. aa5 17:58 Initial lab(s) drawn, by ks, sent to lab. Inserted saline lock: 22 gauge in right aa5 antecubital area, using aseptic technique. Blood collected. 18:22 Bed in low position. Call light in reach. Adult w/ patient. secured entrance monitor on. Pulse tw2 ox on. NIBP on. Warm blanket given. 18:24 Alex Joe, BO is Primary Nurse. as6 18:36 Juan Lindsey MD is Attending Physician. amanda 18:52 initiated transfer to [facility]. pt denied due to no ICU bed available. bd 18:54 attempted to contact the institutional research coordinator at [facility], . bd answering service will page coordinator web content director. 18:58 CT Head Brain wo Cont In Process Unspecified. EDMS 18:59 CT Stone Protocol In Process Unspecified. EDMS 18:59 Fuentes Giraldo DO is Hospitalizing Provider. amanda 19:24 Surgical consent explained by physician, Signed by Daughter. tw5 19:36 Fito Bernal MD is Hospitalizing Provider. amanda 19:40 Assisted provider with central line placement. Set up central line tray. Cordis line tw5 placed in right femoral. Dressed with Tegaderm, Patient tolerated well. Before procedure, did Practitioner(s) obtain informed consent? Yes. Patient \T\ family education about procedure, CLABSI prevention and S/S of infection? Yes. Time-out/Briefing performed prior to start of procedure? Yes. Was handwashing/sanitizing done immediately prior to procedure? Yes. Was patient positioned to in a way to prevent air embolism? Yes. Was procedure site sterilized? Yes, with chlorhexidine. Was the site allowed to dry? Yes. Was local anesthetic and/or sedation utilized? Yes. During the procedure, did the Practitioner(s) maintain a sterile field? Yes. Was blood aspirated from each lumen? Yes. After the procedure, did the Practitioner(s) clean the site and apply a sterile dressing? Yes. 20:30 Awaiting: awaiting urine output. tw5 20:30 Urine collected: Collins catheter specimen, cloudy, Amount Returned: 100mL. Collins cath tw5 inserted, using sterile technique, 16 Fr., by ks, balloon inflated, to gravity drainage, urine specimen collected. 20:33 Basic Metabolic Panel Sent. tw5 20:33 CBC with Diff Sent. tw5 Administered Medications: 18:55 CANCELLED (Duplicate Order): Sodium Bicarbonate 0.5 amp IVP once; (50 mL); equals 50 mEqcha 19:15 CANCELLED (Other Intervention Used): Lasix (furosemide) 80 mg IVP once; give over 2 la1 minutes, after 500 cc bolus 19:55 Drug: Insulin Regular Human 10 units {Co-Signature: df1 (Tere Alfaro).} Route: IVP; tw5 Site: right femoral; 21:13 Follow up: Response: No adverse reaction tw5 19:55 Drug: Sodium Bicarbonate 1 amp Route: IVP; Site: right femoral; tw5 20:34 Follow up: Response: No adverse reaction; Cardiac rhythm changed tw5 20:18 Drug: NS 0.9% 500 ml Route: IV; Rate: bolus; Site: right femoral; tw5 20:34 Follow up: Response: No adverse reaction; IV Status: Completed infusion tw5 20:20 Drug: Lasix (furosemide) 160 mg Route: IVP; Site: right femoral; tw5 20:42 Follow up: Response: No adverse reaction tw 20:26 Drug: Calcium Gluconate 1 grams Route: IVPB; Infused Over: 15 mins; Site: right femoral;tw5 20:53 Follow up: IV Status: Completed infusion tw 20:26 Drug: Albuterol - atroVENT (ipratropium) (3:1) (2.5 mg - 0.5 mg) 3 ml Route: Nebulizer; tw5 20:34 Follow up: Response: No adverse reaction tw5 20:33 Drug: Kayexalate (polystyrene) 45 grams Route: PO; tw5 20:43 Follow up: Response: No adverse reaction tw5 Point of Care Testing: Blood Glucose: 17:49 Blood Glucose: 396 mg/dL; aa5 Ranges: Output: 21:35 Urine: 400ml (Collins); Total: 400ml. tw5 Outcome: 19:01 Decision to Hospitalize by Provider. [facility] 06/23 12:41 Patient left the ED. iw Signatures: Dispatcher [employer] EDMS Stacy Burden Corey, MD MD cha Martinez, Amelia as Williams, Irene, RN RN Narcisa Watts RN RN aa5 Jessie Sanchez RN RN tw2 Araseli Clay tw5 Alex Joe RN RN as6 Vel Banks [facility] Tere Alfaro df1 Corrections: (The following items were deleted from the chart) 06/22 17:50 17:45 Chief complaint: Patient states: generalized weakness, dizziness, numbness to aa5 feet and jonny hands. aa5 20:39 17:10 General: Behavior is anxious, crying, tw5 tw5 20:39 17:10 Pain: Denies pain. tw5 tw5 20:41 19:24 Assisted provider with central line placement. Set up central line tray. Cordis tw5 line placed in right femoral. Dressed with Tegaderm, Patient tolerated well. Before procedure, did Practitioner(s) obtain informed consent? Yes. Patient \T\ family education about procedure, CLABSI prevention and S/S of infection? Yes. Time-out/Briefing performed prior to start of procedure? Yes. Was handwashing/sanitizing done immediately prior to procedure? Yes. Was patient positioned to in a way to prevent air embolism? Yes. Was procedure site sterilized? Yes, with chlorhexidine. Was the site allowed to dry? Yes. Was local anesthetic and/or sedation utilized? Yes. During the procedure, did the Practitioner(s) maintain a sterile field? Yes. Was blood aspirated from each lumen? Yes. After the procedure, did the Practitioner(s) clean the site and apply a sterile dressing? Yes. tw5
--- NOTE | 2021-06-22 19:11 | RAD REPORT ---
EXAM DESCRIPTION: CT - Head Brain Wo Cont - 06/22/2021 6:58 pm CLINICAL HISTORY: Dizziness COMPARISON: 2019 TECHNIQUE: Computed axial tomography of the head was obtained. IV contrast was not requested. All CT scans are performed using dose optimization technique as appropriate and may include automated exposure control or mA/KV adjustment according to patient size. FINDINGS: An intracranial bleed is not seen . The ventricles are normal in caliber. No extra-axial fluid collection is noted. Fluid within the sinuses/ mastoids is not seen. Chronic right maxillary sinusitis IMPRESSION: No acute intracranial abnormality is seen. If patient's symptoms persist MRI of the bra in would be recommended.
[2021-06-22] MEDS ORDERED: NA CHLORIDE 0.9% 500 ML ONE (19:14)
[2021-06-22] MEDS ORDERED: FUROSEMIDE 40 MG/4 ML VIAL ONE ×2 (19:14→20:27)
[2021-06-22] MEDS ORDERED: FUROSEMIDE 40 MG/4 ML VIAL IV STA (19:16)
[2021-06-22] MEDS ORDERED: NA CHLORIDE 0.9% 1,000 ML IV ONE (19:20)
--- NOTE | 2021-06-22 19:20 | P.PN ---
Date of Service: 06/22/21 Nephrology/Transplant Notes: I received consult on Ms. Mishra. 65F w/ PMHx of KTx at [facility] in 2009 p/w dizziness/wkness, found to have hyperK 6.2 w/ EKG changes. 1. Insert shen stat 2. Give Lasix 160 mg IV stat 3. NS IV 1L IV bolus stat 4. Give IV bicarb, IV CaGluc, Albuterol neb, Insulin + dextrose 5. If urine output > 200 cc at 2 hrs after IV lasix dose, we can manage hyperkalemia w/o dialysis 6. Follow serum K & renal panel every few hrs 7. F/u urinalysis, urine chem, random UPCR 8. Severe JOE etiology broad, including acute allograft rejection 9. Transfer to transplant hospital as soon as bed is available as workup & mngt for severe JOE is complex, including needing to check for donor-specific antibo dies, BK nephropathy, likely need for renal transplant biopsy if no prompt improvement in JOE over the next 24 hrs, & need for IV pulse steroid prior to biopsy.
--- NOTE | 2021-06-22 19:21 | RAD REPORT ---
EXAM DESCRIPTION: CT - Stone Protocol - 06/22/2021 6:59 pm CLINICAL HISTORY: Abdominal pain. COMPARISON: 2014 and 2019 TECHNIQUE: Computed axial tomography of the abdomen pelvis was obtained without oral or IV contrast. Lack of IV and oral contrast limits evaluation of solid organs, bowel, and vessels. Coronal reformat [place] images were obtained and reviewed. All CT scans are performed using dose optimization technique as appropriate and may include automated exposure control or mA/KV adjustment according to patient size. FINDINGS: Right kidney is absent. The left kidney is small. Transplant kidney right pelvis. Minimal pyelocaliectasis of the transplant kidney unchanged from the prior exam minimal peritransplant kidney stranding unchanged from prior exam. Bladder wall appears mildly thickened. . The liver, spleen, pancreas and right adrenal gland appear grossly normal. Prominent vascular calcifications 20 millimeter left adrenal nodule without significant change probably an adenoma. There is no evidence of diverticulitis. IMPRESSION: Minimal pyelocaliectasis of the transplant kidney unchanged from the prior exam. Mild thickening of the bladder wall may indicate cystitis.
[2021-06-22] MEDS ORDERED: LIDOCAINE 1% 20 ML MDV ONE (19:33)
[2021-06-22] MEDS ORDERED: HEPARIN 500 UNIT/5 ML SYR IV ONE (19:49)
[2021-06-22] MEDS ORDERED: FUROSEMIDE 40 MG in NA CHLORIDE 0.9% 100 ML IV SCH (20:00)
--- NOTE | 2021-06-22 20:13 | P.OP ---
Preoperative diagnosis: Acute Renal Failure Postoperative diagnosis: Acute Renal Failure Primary procedure: Placement of LEFT Femoral Temporary Hemodialysis Catheter Anesthesia: Local 1% lidocaine Estimated blood loss: <15cc Specimen: none Findings: non-pulsatile dark blood returned from both ports Complications: None Implants: Temporary Hemodialysis Catheter Transferred to: Recovery Room Condition: Good
[2021-06-22] MEDS ORDERED: NA CHLORIDE 0.9% IV SCH (21:00)
[2021-06-22] MEDS ORDERED: FUROSEMIDE IV SCH (21:00)
[2021-06-22 21:35] LABS: Potassium 4.8 mmol/L (3.5-5.1)
--- NOTE | 2021-06-22 22:03 | RAD REPORT ---
EXAM DESCRIPTION: US - Renal Ultrasound-Complete - 06/22/2021 9:52 pm CLINICAL HISTORY: Acute renal insufficiency COMPARISON: None FINDINGS: The right kidney is absent. The left kidney has an increased echotexture. It measures 4 centimeters. . Transplant kidney is present within the right pelvis. Minimal pyelocaliectasis. Kidney measures 10 ce ntimeters. The echotexture appears normal. The transplant renal artery and vein are patent. A Collins catheter is present within a collapsed bladder. IMPRESSION: Transplant kidney within the right pelvis exhibits minimal pyelocaliectasis which likely is not significant
--- NOTE | 2021-06-22 23:13 | P.PN ---
Date of Service: 06/22/21 Nephrology/Transplant Notes: [facility] KTx records reviewed. PMHx of ESRD presumed to be 2/2 Htn/DMs/p kidney transplant in December 2009, maintenance IS meds via Prograf 0.5 mg po q12h, MMF 500 mg po q12h, & Prednisone 5 mg po daily, prograf trough goal 4-6, R renal cell carcinoma s/pR nephrectomy in October 2016, Htn on Amlod ipine/Carvedilol/Clonidine, also on lasix 20 mg po bid, DM on insulin, hx of cryptococcal PNA w/ chronic +titers on chronic suppressive therapy with 400 mg per day of fluconazole, anemia, HLD on simvastatin 20 mg po qhs, secondary hyperPTH & hypocalcemia on calcitriol 1 mcg po daily plus Tums 500 mg po qid, osteoporosis, COPD/chronic bronchitis, hypothyroidism, GERD, & covid19 infection. She was seen at the KTx clinic at [facility] on 04/07/2021. Baseline SCr 2.0 w/ mild proteinuria 0.5g as of 04/07/21. Donor-specific antibodies (DSA) negative on 01/19/21. Most recent prograf trough level was 4.2, on 04/07/2021, at goal. Chest CT in Sep 2020 showed multiple right lower lobe nodules & pulmo Htn w/ dilated main pulmo artery. TTE in December 2020 showed normal LVEF > 70%, LA severely dilated, gr. 1 diastolic dysfxn, unable to estimate PASP or RVSP. Recs: # Hyperkalemia Pt made 400 cc urine 2 hrs after high dose IV lasix tonight. Serum K decreased to 4.8 although this is mostly intracellular K shifting. Ramírez cath placed this evening. No need for HD. Continue clinical research monitor. Keep ramírez cath. Keep shen. Start NS gtt 75 cc/hr. Will redose IV lasix tomorrow prn for hyperkalemia. # Allograft fxn DSA neg in December 2020 Plasma BKV PCR neg in Apr 2021 CPK wnl, no rhabdo Has JOE w/ prerenal component/lasix use, on proteinuric CKD 4. Baseline SCr 2.0 (GFR 26 ml/min) as of 04/07/21. SCr 3.5 on adm Other DDx for JOE - ATN from prolonged prerenal, urinary obstrxn, allograft bld flow issues, calcineurin inhibitor toxicity, r/o allograft antibody/cellular rejection F/u urinalysis, uchem, upcr, prograf trough level KTx US w/ doppler Cont shen, start NS gtt as above # IS Hold Prograf Check Prograf trough level (goal 4-6) Cont MMF 500 mg po q12h Cont Pred 5 mg po daily # Htn Resume amlodipine, coreg, clonidine home dosing # Metabolic acidosis F/u ABG Received IV bicarb # Pulmonary Htn Hx of COPD/chronic bronchitis & covid [address] in Sep 2020 showed multiple right lower lobe nodules & pulmo Htn w/ dilated main pulmo artery. TTE in December 2020 showed normal LVEF > 70%, LA severely dilated, gr. 1 diastolic dysfxn, unable to estimate PASP or RVSP. BNP sig elevated, +trop leak She will remain very Na avid d/t pulmo Htn. Once hyperK is resolved, avoid Na- containing IV fluid. Resume lasix bid at some point # Cryptococcal PNA Cont Fluconazole 400 mg po daily # DM2 Mngt per primary team # Hypothyroidism Levothyroxine # HLD Resume simvastatin 20 mg po qhs prior to hosp dc
[2021-06-23 00:04] LABS: Arterial Blood Carboxyhemoglob 0.9 % (0-1.5); Blood Gas Oxyhemoglobin 95.3 % (94-97); Blood O2 Saturation 97.4 % (92-98.5)
[2021-06-23 00:17] VITALS: BMI 22.1
[2021-06-23 00:37] LABS: UR PROTEIN 95.7 mg/dL (<11.9); Urine Protein/Creatinine Ratio 2.45 ratio (<0.15)
[2021-06-23 00:53] LABS: Urine Appearance TURBID (Clear); Urine Bilirubin Negative (Negative); Urine Blood 2+ (Negative); Urine Color Yellow (Yellow); Urine Glucose Trace (Negative); Urine Microscopic Reflex ORDER UMIC; Urine Protein 2+ (Negative); Urine Specific Gravity 1.015 (1.005-1.030); Urine Urobilinogen 0.2 mg/dL (0.2-1.0)
[2021-06-23 00:57] LABS: Urine Bacteria >50 /HPF (<20); Urine RBC NONE SEEN /HPF (NONE SEEN); Urine Urothelial Cells <5 /HPF (NONE SEEN)
[2021-06-23 05:23] LABS: Bilirubin Total 0.2 mg/dL (0.2-1.0); Magnesium 2.6 mg/dL (1.8-2.4); Phosphorus 3.5 mg/dL (2.5-4.9); Potassium 4.7 mmol/L (3.5-5.1); Protein, Total 6.7 g/dL (6.4-8.2)
--- NOTE | 2021-06-23 06:46 | P.CNS ---
Date of Consult: 06/23/21 Reason for Consult: renal failure, s/p kidney transplant Requesting Physician: Fito Bernal History of Present Illness: 65F turkmen-speaking w/ PMHx of ESRD presumed to be 2/2 Htn/DMs/p kidney transplant in December 2009 at [facility], maintenance IS meds via Prograf 0.5 mg po q12h & Prednisone 5 mg po daily, prograf trough goal 4-6, R renal cell carcinoma s/pR nephrectomy in October 2016, Htn on Amlodipine/Carvedilol/Clonidine, also on lasix 20 mg po bid plus david 25 mg po daily, DM on insulin, hx of cryptococcal PNA w/ chronic +titers on chronic suppressive therapy with 400 mg per day of fluconazole, anemia, HLD on simvastatin 20 mg po qhs, secondary hyperPTH & hypocalcemia on calcitriol 1 mcg po daily plus Tums 500 mg po qid, osteoporosis, COPD/chronic bronchitis, hypothyroidism, GERD, & covid19 infection. She was seen at the KTx clinic at [facility] on 04/07/2021. Baseline SCr 2.0 w/ mild proteinuria 0.5g as of 04/07/21. Donor-specific antibodies (DSA) negative on 01/19/21. Most recent prograf trough level was 4.2, on 04/07/2021, at goal. Chest CT in Sep 2020 showed multiple right lower lobe nodules & pulmo Htn w/ dilated main pulmo artery. TTE in December 2020 showed normal LVEF > 70%, LA severely dilated, gr. 1 diastolic dysfxn, unable to estimate PASP or RVSP. She p/w dizziness/weakness, found to have hyperK 6.2 w/ EKG changes. She received hyperkalemia medical therapy & hyperkalemia resolved. Allergies No Known Drug Allergies Allergy (Verified 08/01/20 23:30) Unknown Home Medications: Amlodipine [Norvasc*] 10 mg PO DAILY 07/04/19 Calcium Carbonate [Tums Regular*] 500 mg PO TID 07/04/19 Cholecalciferol (Vitamin D3) [Vitamin D3] 2,000 unit PO DAILY 07/04/19 Gabapentin [Neurontin*] 100 mg PO TID 07/04/19 Magnesium Chloride [Slow-Mag*] 64 mg PO DAILY 07/04/19 Omeprazole [Prilosec] 40 mg PO DAILY 07/04/19 Simvastatin 20 mg PO BEDTIME 07/04/19 Tacrolimus [Prograf] 2 cap PO BID 07/04/19 predniSONE [Prednisone*] 5 mg PO DAILY 07/04/19 Albuterol Inhaler [Ventolin Inhaler*] 2 puff IH Q6H PRN #1 hfa.aer.ad 08/03/20 Ascorbic Acid [Vitamin C] 500 mg PO DAILY 06/23/21 Calcitriol [Rocaltrol] 1 mcg PO DAILY 06/23/21 Furosemide [Lasix] 20 mg PO BID 06/23/21 Levothyroxine Sodium 50 mcg PO DAILY 06/23/21 Spironolactone 25 mg PO DAILY 06/23/21 Tamsulosin HCl 0.4 mg PO DAILY 06/23/21 - Past Medical/Surgical History Diabetic: Yes -: Kidney transplant -: chronic venous hypertension with ulceraton -: diabetic ulcer toe -: gerd -: hyperlipidemia -: neuropathy chronic kidney disease -: kidney transplant -: -: Toe Amputation -: Fistula Placement -: Chronic venous hypertension with ulceration - Family History Mother Medical History: Stroke, Kidney disease - Social History Smoking Status: Unknown if ever smoked Alcohol use: No CD- Drugs: No Caffeine use: No Review of Systems General: Weakness Eyes: Unremarkable ENT: Unremarkable Respiratory: Unremarkable Cardiovascular: Other (dizziness) Gastrointestinal: Unremarkable Genitourinary: Unremarkable Musculoskeletal: Unremarkable Integumentary: Unremarkable Neurological: Weakness Lymphatics: Unremarkable Physical Examination Temp Pulse Resp BP Pulse Ox 99.4 F 79 14 121/61 100 06/23/21 06:00 06/23/21 06:00 06/23/21 06:00 06/23/21 06:00 06/23/21 06:00 General: In no apparent distress HEENT: Atraumatic, Normocephalic Neck: Supple, JVD not distended Respiratory: Clear to auscultation bilaterally Cardiovascular: No edema, No rubs, No murmurs Gastrointestinal: Soft and benign, Non-distended Musculoskeletal: No clubbing, No warmth Integumentary: No rashes, No warmth Neurological: Normal speech, Normal tone Urinary: Other (no bladder distention) External genitalia: Deferred Rectal: Deferred Laboratory Data (last 24 hrs) 06/22/21 17:58: PT 11.9, INR 1.03 06/22/21 17:58: WBC 8.20, Hgb 9.3 L, Hct 28.7 L, Plt Count 293 06/22/21 17:58: Sodium 136, Potassium 6.2 H*, BUN 61 H, Creatinine 3.46 H, Glucose 443 H*, Magnesium 2.7 H D, Total Bilirubin 0.2, AST 65 H, ALT 84 H, Alkaline Phosphatase 200 H Conclusions/Impression: # Hyperkalemia 2/2 spironolactone + JOE Pt made 400 cc urine 2 hrs after high dose IV lasix tonight. Serum K decreased to 4.8 although this is mostly intracellular K shifting. Saeed cath placed this evening. No need for HD. Continue desk monitor. Keep saeed cath. Keep shen. Continue NS gtt 75 cc/hr for another day. Remove saeed cath tomorrow if no hyperkalemia recurrence # Allograft fxn DSA neg in December 2020 Plasma BKV PCR neg in Apr 2021 CPK wnl, no rhabdo Has JOE w/ prerenal & obstructive uropathy component/lasix use, on proteinuric CKD 4. Baseline SCr 2.0 (GFR 26 ml/min) as of 04/07/21. SCr 3.5 on adm, improved today Other DDx for JOE - ATN from prolonged prerenal, UTI calcineurin inhibitor toxicity, r/o allograft antibody/cellular rejection F/u urinalysis, uchem, upcr, prograf trough level KTx US w/ doppler Cont shen Cont NS gtt as above, dc tomorrow if renal fxn continues to improve +Pyuria, f/u UCx, give abx if +UCx +Subnephrotic proteinuria 2.5g Do NOT restrict po fluid intake, unless he develops hyponatremia, to avoid JOE # Chronic urinary obstruction Keep shen today, switch to CIC bid in 1-2d prior to hosp dc Cont flomax qhs # IS Home IS via Prograf + Prednisone Hold Prograf, resume tomorrow AM at home dose 0.5 mg po bid F/u Prograf trough level (goal 4-6) Cont Pred 5 mg po daily MMF 500 mg po q12h was d/c'ed in early 2020 # Htn Cont current regimen # Metabolic acidosis Mild, monitor ABG pH wnl Received IV bicarb # Secondary hyperPTH, hypocalcemia Hx of osteoporosis Corrected serum Ca low normal currently Serum iPTH elevated at 137 25OHD wnl Cont calcitriol 1 mcg po daily Cont Tums 1000 mg po bid Start D3 1000 IU po daily # Pulmonary Htn Hx of COPD/chronic bronchitis & covid [address] in Sep 2020 showed multiple right lower lobe nodules & pulmo Htn w/ dilated main pulmo artery. TTE in December 2020 showed normal LVEF > 70%, LA severely dilated, gr. 1 diastolic dysfxn, unable to estimate PASP or RVSP. BNP sig elevated, +trop leak She will remain very Na avid d/t pulmo Htn. Once hyperK is resolved, avoid Na- containing IV fluid. Resume low dose lasix 20 mg po bid when NS gtt is d/c'ed tomorrow Avoid david d/t high risk for recurrent hyperK given low baseline GFR # Cryptococcal PNA Cont Fluconazole 400 mg po daily # DM2 Mngt per primary team # Hypothyroidism Levothyroxine # HLD Resume simvastatin 20 mg po qhs prior to hosp dc # GERD Omeprazole
[2021-06-23] MEDS ORDERED: ACETAMINOPHEN 325 MG TABLET PO PRN (07:56)
[2021-06-23] MEDS ORDERED: ONDANSETRON 4 MG/2 ML VIAL IV PRN (07:56)
[2021-06-23] MEDS ORDERED: IPRATROPIUM BROM 0.5MG/2.5ML NEB PRN (07:56)
[2021-06-23] MEDS ORDERED: ALBUTEROL 2.5 MG/3 ML NEB SOL NEB PRN (07:56)
[2021-06-23] MEDS: CALCIUM CARBONATE CHEW 500MG TAB PO SCH ×2 (09:00→21:23)
[2021-06-23] MEDS ORDERED: VITAMIN D 1000 UNIT TAB PO SCH (09:00)
[2021-06-23] MEDS ORDERED: FLUCONAZOLE 100 MG TAB PO SCH (09:00)
[2021-06-23] MEDS ORDERED: CALCITROL 0.25 MCG CAP PO SCH (09:00)
[2021-06-23] MEDS ORDERED: FUROSEMIDE 40 MG/4 ML VIAL IV SCH (09:00)
[2021-06-23 09:12] LABS: Absolute Lymphocytes (CBC) 0.7 K/uL (0.7-4.9); Basophils % 0.7 % (0-1.3); Hematocrit 29.8 % (36.0-45.0); Lymphocytes % 13.8 % (15.3-44.8); MPV 7.3 fL (7.6-11.3); RBC Red Blood Cell Count 3.43 M/uL (3.86-4.86)
[2021-06-23] MEDS ORDERED: FUROSEMIDE 40 MG/4 ML VIAL ONE (09:31)
[2021-06-23] MEDS ORDERED: NA CHLORIDE 0.9% 1,000 ML ONE (09:31)
[2021-06-23] MEDS: predniSONE 5 MG TAB PO SCH (10:18)
[2021-06-23] MEDS: NA CHLORIDE 0.9% 1,000 ML IV SCH ×2 (10:18→21:16)
[2021-06-23 11:53] LABS: Potassium 4.6 mmol/L (3.5-5.1); Troponin I 0.09 ng/mL (0.0-0.045)
[2021-06-23] MEDS ORDERED: GLUCAGON 1 MG/VIAL IM PRN ×2 (12:55→18:18)
[2021-06-23] MEDS ORDERED: D50W 25 GM/50 ML SYRINGE IV PRN (12:55)
--- NOTE | 2021-06-23 13:11 | P.HP ---
Certification for Inpatient Patient admitted to: Inpatient With expected LOS: >2 Midnights Practitioner: I am a practitioner with admitting privileges, knowledge of patient current condition, hospital course, and medical plan of care. Services: Services provided to patient in accordance with Admission requirements found in Title 42 Section 412.3 of the Code of Federal Regulations Patient History Date of Service: 06/23/21 Primary Care Provider: Rudi Reason for admission: renal failure History of Present Illness: Patient is a recent office patient of Rudi KELLY. She has a history of dm2, esrd but had a kidney transplant. We were in the process of getting her old records. She has a history of obstructive uropathy Which the patient was t reating with self cathing. However the patient was having some pain with the cathing and stopped for the last few days. She has been getting more lethargic and was brought to the ER by her family. She was found to have an elevated creatine. and was at stage 5. She had a cath placed by Dr. Byrd. However a shen catheter was also placed and the patient started making urine. Which saw her creatine improve. Plans for dialysis were held Allergies No Known Drug Allergies Allergy (Verified 08/01/20 23:30) Unknown Home Medications: Amlodipine [Norvasc*] 10 mg PO DAILY 07/04/19 Calcium Carbonate [Tums Regular*] 500 mg PO TID 07/04/19 Cholecalciferol (Vitamin D3) [Vitamin D3] 2,000 unit PO DAILY 07/04/19 Gabapentin [Neurontin*] 100 mg PO TID 07/04/19 Magnesium Chloride [Slow-Mag*] 64 mg PO DAILY 07/04/19 Omeprazole [Prilosec] 40 mg PO DAILY 07/04/19 Simvastatin 20 mg PO BEDTIME 07/04/19 Tacrolimus [Prograf] 2 cap PO BID 07/04/19 predniSONE [Prednisone*] 5 mg PO DAILY 07/04/19 Albuterol Inhaler [Ventolin Inhaler*] 2 puff IH Q6H PRN #1 hfa.aer.ad 08/03/20 Ascorbic Acid [Vitamin C] 500 mg PO DAILY 06/23/21 Calcitriol [Rocaltrol] 1 mcg PO DAILY 06/23/21 Furosemide [Lasix] 20 mg PO BID 06/23/21 Levothyroxine Sodium 50 mcg PO DAILY 06/23/21 Spironolactone 25 mg PO DAILY 06/23/21 Tamsulosin HCl 0.4 mg PO DAILY 06/23/21 - Past Medical/Surgical History Diabetic: Yes -: Kidney transplant -: chronic venous hypertension with ulceraton -: diabetic ulcer toe -: gerd -: hyperlipidemia -: neuropathy chronic kidney disease -: kidney transplant -: -: Toe Amputation -: Fistula Placement -: Chronic venous hypertension with ulceration - Family History Mother -: Stroke, Kidney disease - Social History Smoking Status: Never smoker Alcohol use: No CD- Drugs: No Caffeine use: No Review of Systems 10-point ROS is otherwise unremarkable General: Weakness, Malaise Genitourinary: Retention Physical Examination - Vital Signs Temperature: 98.9 F Blood Pressure: 121/60 Pulse: 81 Respirations: 14 Pulse Ox (%): 100 - Physical Exam General: Alert, In no apparent distress HEENT: Atraumatic, PERRLA, Mucous membr. moist/pink, EOMI, Sclerae nonicteric Neck: Supple, 2+ carotid pulse no bruit, No LAD, Without JVD or thyroid abnormality Respiratory: Clear to auscultation bilaterally, Normal air movement Cardiovascular: Regular rate/rhythm, Normal S1 S2 Gastrointestinal: Normal bowel sounds, No tenderness Musculoskeletal: No tenderness Integumentary: No rashes Neurological: Normal gait, Normal speech, Normal strength at 5/5 x4 extr, Normal tone, Normal affect Lymphatics: No axilla or inguinal lymphadenopathy - Studies Laboratory Data (last 24 hrs) 06/22/21 17:58: PT 11.9, INR 1.03 06/22/21 17:58: WBC 8.20, Hgb 9.3 L, Hct 28.7 L, Plt Count 293 06/22/21 17:58: Sodium 136, Potassium 6.2 H*, BUN 61 H, Creatinine 3.46 H, Glucose 443 H*, Magnesium 2.7 H D, Total Bilirubin 0.2, AST 65 H, ALT 84 H, Alkaline Phosphatase 200 H Assessment and Plan - Problems (Diagnosis) (1) CKD stage 5 due to type 2 diabetes mellitus Current Visit: Yes Status: Chronic Plan: improving with shen catheter. Dr. Burgess is following the patient (2) Obstructive uropathy Current Visit: Yes Status: Acute Plan: will continue the shen catheter. Consult Dr. Wallace (3) Hx of kidney transplant Current Visit: No Status: Chronic Plan: check tacrolimus level and prednisone (4) Hypertension Onset Date: 10/26/17 Current Visit: No Status: Chronic Plan: will restart her amlodipine in the morning Discharge Plan: Home Plan to discharge in: Greater than 2 days - Advance Directives Does patient have a Living Will: No Does patient have a Durable POA for Healthcare: No - Code Status/Comfort Care Code Status Assessed: No Code Status: Full Code Physician Review: Patient Assessed, Agree with Above Assessment and Plan Critical Care: No Time Spent Managing Pts Care (In Minutes): 45
[2021-06-23] MEDS: GABAPENTIN 100 MG CAP PO SCH ×2 (13:17→21:23)
[2021-06-23] MEDS ORDERED: CALCIUM CARBONATE CHEW 500MG TAB PO SCH (14:00)
[2021-06-23] MEDS: ENOXAPARIN 30 MG/0.3 ML SQ SCH (16:14)
[2021-06-23] MEDS: INSULIN -REGULAR HUMAN 50 UNIT/0.5 ML ML SQ SCH ×2 (16:43→21:23)
[2021-06-23] MEDS: TACROLIMUS 0.5 MG PO SCH (17:42)
[2021-06-23] MEDS ORDERED: INSULIN -REGULAR HUMAN 50 UNIT/0.5 ML ML SQ ONE (18:24)
[2021-06-23] MEDS ORDERED: HOME MED 1 EA UNK (Simvastatin [Simvastatin] 20 MG Tablet) PO SCH (21:00)
[2021-06-23] MEDS ORDERED: TACROLIMUS 0.5 MG PO SCH (21:00)
[2021-06-23] MEDS ORDERED: ATORVASTATIN 10 MG TAB PO SCH (21:00)
[2021-06-23 21:41] VITALS: O2SAT 99
[2021-06-24] MEDS: NA CHLORIDE 0.9% 1,000 ML IV SCH (00:18)
[2021-06-24 05:46] LABS: Absolute Lymphocytes (CBC) 0.7 K/uL (0.7-4.9); Basophils % 0.8 % (0-1.3); Hematocrit 31.2 % (36.0-45.0); Lymphocytes % 14.2 % (15.3-44.8); MPV 7.3 fL (7.6-11.3); RBC Red Blood Cell Count 3.58 M/uL (3.86-4.86)
[2021-06-24] MEDS: TACROLIMUS 0.5 MG PO SCH ×2 (05:54→17:46)
--- NOTE | 2021-06-24 06:03 | P.PN ---
Subjective Date of Service: 06/24/21 Primary Care Provider: Rudi Chief Complaint: renal failure Subjective: Other (No urinary complaints.) Physical Examination - Vital Signs Temperature: 98.2 F Blood Pressure: 142/59 Pulse: 75 Respirations: 19 Pulse Ox (%): 99 - Physical Exam General: In no apparent distress HEENT: Atraumatic, Normocephalic Neck: Supple, JVD not distended Respiratory: Clear to auscultation bilaterally Cardiovascular: No rubs, No murmurs Gastrointestinal: Soft and benign, Non-distended Musculoskeletal: No clubbing Integumentary: No warmth Neurological: Normal speech, Normal tone Urinary: Other (No bladder distention) External genitalia: Deferred Rectal: Deferred Assessment And Plan - Plan # Hyperkalemia 2/2 spironolactone + JOE Serum K decreased to 3.4, monitor Remove ramírez cath Avoid david # Allograft fxn DSA neg in December 2020 Plasma BKV PCR neg in Apr 2021 CPK wnl, no rhabdo Has JOE 2/2 prerenal/lasix use + obstructive uropathy +/- UTI, on proteinuric CKD 4. Baseline SCr 2.0 (GFR 26 ml/min) as of 04/07/21. SCr 3.5 on adm, improved today to 2.3 (GFR 21) KTx US unremarkable Dc shen Resume scheduled CIC bid Dc NS gtt +Pyuria, f/u UCx, give abx if +UCx +Subnephrotic proteinuria 2.5g Do NOT restrict po fluid intake, unless he develops hyponatremia, to avoid JOE # Chronic urinary obstruction Dc shen, resume scheduled CIC bid Cont flomax qhs # IS Home IS via Prograf + Prednisone Hold Prograf, resume tomorrow AM at home dose 0.5 mg po bid F/u Prograf trough level (goal 4-6) Cont Pred 5 mg po daily MMF 500 mg po q12h was d/c'ed in early 2020 # Metabolic acidosis Improved ABG pH wnl Received IV bicarb # Secondary hyperPTH, hypocalcemia Hx of osteoporosis Corrected serum Ca low normal currently Serum iPTH elevated at 137 25OHD wnl Cont calcitriol 1 mcg po daily Cont Tums 1000 mg po bid Started on D3 1000 IU po daily # Htn Cont current regimen # Pulmonary Htn Hx of COPD/chronic bronchitis & covid [address] in Sep 2020 showed multiple right lower lobe nodules & pulmo Htn w/ dilated main pulmo artery. TTE in December 2020 showed normal LVEF > 70%, LA severely dilated, gr. 1 diastolic dysfxn, unable to estimate PASP or RVSP. BNP sig elevated, +trop leak She will remain very Na avid d/t pulmo Htn. Once hyperK is resolved, avoid Na- containing IV fluid. Resume low dose lasix 20 mg po bid when NS gtt is d/c'ed tomorrow Avoid david d/t high risk for recurrent hyperK given low baseline GFR Advised on liberal po fluid intake at least 2L/d, unless she becomes hyponatre good, to avoid JOE # Cryptococcal PNA Cont Fluconazole 400 mg po daily # DM2 Mngt per primary team # Hypothyroidism Levothyroxine # HLD Simvastatin 20 mg po qhs # GERD Omeprazole # Dispo November dc today F/u at KTx clinic Physician Review: Patient Assessed, Agree with Above Assessment and Plan
[2021-06-24 06:19] LABS: Albumin 2.5 g/dL (3.4-5.0); Bilirubin Total 0.2 mg/dL (0.2-1.0); Potassium 3.4 mmol/L (3.5-5.1); Protein, Total 6.3 g/dL (6.4-8.2); Thyroid Stimulating Hormone 5.43 uIU/mL (0.360-3.740)
[2021-06-24] MEDS ORDERED: LEVOTHYROXINE SOD 0.05 MG TABLET PO SCH (06:30)
[2021-06-24] MEDS: INSULIN -REGULAR HUMAN 50 UNIT/0.5 ML ML SQ SCH ×4 (07:30→20:37)
--- NOTE | 2021-06-24 08:07 | EKG ---
Test Date: 2021-06-22 Test Time: 18:47:16 Telecommunications Engineer: LOCO MEASUREMENT RESULTS: Intervals: Rate: 45 DE: QRSD: 74 QT: 454 QTc: 392 Foley: P: DE: QRS: 66 T: 72 INTERPRETIVE STATEMENTS: Junctional rhythm Abnormal ECG Compared to ECG 08/01/2020 11:39:28 Junctional rhythm now present Sinus rhythm no longer present Electronically Signed On 06-24-21 08:03:37 BUILDING CONSTRUCTION TEACHER by Kingston Davey
[2021-06-24] MEDS ORDERED: SPIRONOLACTONE 25 MG TABLET PO SCH (09:00)
[2021-06-24] MEDS ORDERED: HOME MED 1 EA UNK (Omeprazole [Prilosec] 40 MG Capsule.Dr) PO SCH (09:00)
[2021-06-24] MEDS ORDERED: predniSONE 5 MG TAB PO SCH (09:00)
[2021-06-24] MEDS ORDERED: TAMSULOSIN 0.4 MG SR CAP PO SCH ×2 (09:00→21:00)
--- NOTE | 2021-06-24 09:10 | P.PN ---
Subjective Date of Service: 06/24/21 Primary Care Provider: Rudi Chief Complaint: renal failure Subjective: No new changes, Improving Review of Systems 10-point ROS is otherwise unremarkable Physical Examination - Vital Signs Temperature: 98.2 F Blood Pressure: 142/59 Pulse: 75 Respirations: 19 Pulse Ox (%): 99 - Physical Exam General: Alert, In no apparent distress HEENT: Atraumatic, PERRLA, EOMI Neck: Supple, JVD not distended Respiratory: Clear to auscultation bilaterally, Normal air movement Cardiovascular: Regular rate/rhythm, Normal S1 S2 Gastrointestinal: Normal bowel sounds, No tenderness Musculoskeletal: No tenderness Integumentary: No rashes Neurological: Normal speech, Normal tone, Normal affect Lymphatics: No axilla or inguinal lymphadenopathy Assessment & Plan - Problems (Diagnosis) (1) CKD stage 5 due to type 2 diabetes mellitus Current Visit: Yes Status: Chronic Plan: improving with shen catheter. Dr. Burgess is following the patient 06/24 Patient creatine is improving to 2.3. Her baseline in 1.5 to 1.7 in '19. Will keep her one more day. (2) Obstructive uropathy Current Visit: Yes Status: Acute Plan: will continue the shen catheter. Consult Dr. Wallace (3) Hx of kidney transplant Current Visit: No Status: Chronic Plan: check tacrolimus level and prednisone (4) Hypertension Onset Date: 10/26/17 Current Visit: No Status: Chronic Plan: will restart her amlodipine in the morning (5) Hypothyroidism Current Visit: Yes Status: Acute Plan: tsh is elevated. Will increase her levothyroxine to 75mcg Qualifiers: Hypothyroidism type: unspecified Qualified Code(s): E03.9 - Hypothyroidism, unspecified Discharge Plan: Home Plan to discharge in: Greater than 2 days - Code Status/Comfort Care Code Status Assessed: No Physician Review: Patient Assessed, Agree with Above Assessment and Plan Critical Care: No Time Spent Managing Pts Care (In Minutes): 25
[2021-06-24] MEDS: VITAMIN D 1000 UNIT TAB PO SCH (11:00)
[2021-06-24] MEDS: MAGNESIUM CHLORIDE 64 MG TAB PO SCH (11:01)
[2021-06-24] MEDS: GABAPENTIN 100 MG CAP PO SCH ×3 (11:01→20:37)
[2021-06-24] MEDS: predniSONE 5 MG TAB PO SCH (11:01)
[2021-06-24] MEDS: FUROSEMIDE 20 MG TABLET PO SCH ×2 (11:01→17:25)
[2021-06-24] MEDS: CALCIUM CARBONATE CHEW 500MG TAB PO SCH ×2 (11:01→20:38)
[2021-06-24] MEDS: ASCORBIC ACID 500 MG TABLET PO SCH (11:02)
[2021-06-24] MEDS: FLUCONAZOLE 100 MG TAB PO SCH (11:02)
[2021-06-24] MEDS: PANTOPRAZOLE 40MG TABLET PO SCH (11:02)
[2021-06-24] MEDS: CALCITROL 0.25 MCG CAP PO SCH (11:03)
--- NOTE | 2021-06-24 11:50 | CON ---
Date of Consultation: 06/22/2021 Brief History Of Present Illness: The patient is a 65-year-old speaking female, who present s to the hospital with a past medical history of chronic renal failure, status post left upper extrem ity AV fistula creation, and further right categoric renal transplant, hyperlipidemia, hypertension, diabetes, end-stage renal disease, who was off dialysis, who had worsening symptoms of fatigue, short ness of breath, dysuria, and oliguria. She was seen in the ER and noted to have significant electrol yte abnormalities with a high potassium and EKG changes with T-wave inversion and bradycardia. As russell ladonna I was consulted for emergent placement of a temporary hemodialysis catheter to consider emergent hemodialysis should the patient's condition continued to worsen. Past Surgical History: Includes cataract, renal transplant, left upper extremity AV fistula. Also i ncludes and toe amputation. Review of Systems: Ten-point review of systems other than HPI, denies. Allergies: NO KNOWN DRUG ALLERGIES. Home Medications: Include Norvasc, Tums, vitamin D3, Neurontin, Slow-Mag, Prilosec, simvastatin, Pro valente/tacrolimus, prednisone, albuterol, ascorbic acid, calcitriol, Lasix, levothyroxine, spironolacto ne, . Social History: She denies smoking, alcohol, or recreational drug use. Physical Examination: General: At the time of my examination; she is awake, alert, oriented. Psychiatric: She is appropriate. Conversive. HEENT: Normocephalic. Sclerae anicteric. Mucous membranes moist. Oropharynx clear. Neck: Supple. No JVD chest. Chest: Normal expansion and excursion. Cardiovascular: Bradycardia with heart rate in the 40s. Pulmonary: Decreased breath sounds bilaterally. Abdomen: Soft. Palpable kidney transplant in the right lower pelvic area. Extremities: No clubbing, cyanosis, or edema. Skin: Warm and dry. Pulses were equal in all 4 extremities. Nonfunctional left upper extremity fis alvino was present. Laboratory Data: She had a laboratory exam, which revealed a white blood cell count of 8.2, hemoglob in is 9.3, hematocrit 28.7, platelet count was 293, neutrophils 91%. Her sodium was 141, potassium w as 6.2, BUN 62, creatinine is 3.1, carbon dioxide 21, chloride 108, hemoglobin A1c was 9.3, glucose i s 396, calcium was 7.9, magnesium 2.7, total bilirubin 0.2, direct bilirubin 0.1, AST 65, ALT 84, alk deni phosphatase 200. Troponin BNP was 7590. Assessment And Plan: This is a 65-year-old female, who comes in with signs and symptoms of worsening kidney dysfunction. I have been requested to place a temporary hemodialysis catheter. I have expla ined the risks, benefits, and alternatives of placement of temporary hemodialysis catheter including, but not limited to bleeding, infection, damage to surrounding tissues, need for further operation an d procedures. The patient agrees to proceed as indicated. Thank you for this interesting consult. KATIA/CARMINA Voice ID: [id number] Report ID: [id number]
[2021-06-24] MEDS: ENOXAPARIN 30 MG/0.3 ML SQ SCH (17:00)
[2021-06-24] MEDS ORDERED: INSULIN -REGULAR HUMAN 50 UNIT/0.5 ML ML SQ ONE (18:18)
--- NOTE | 2021-06-24 19:26 | OP ---
Date of Procedure: 06/22/2021 Surgeon: Garth Byrd MD, Preoperative Diagnosis: Acute renal failure. Postoperative Diagnosis: Acute renal failure. Procedure Performed: Placement of left femoral temporary hemodialysis catheter. Anesthesia: Local and 1% lidocaine. Estimated Blood Loss: Less than 15 cc. Specimen: None. Findings: Nonpulsatile dark red blood returned from both ports. Complications: None. Implants: Temporary hemodialysis catheter. The patient remained in the ER throughout the procedure in good condition. Procedure In Detail: After informed consent was obtained, the patient remained in the ER room, prepp ed and draped in the usual sterile fashion after adequate anesthesia was achieved using anatomic land howell. I palpated the area of the right inguinal area. The patient had a previous kidney transplant in this area, however, anatomic landmarks were quite easy to palpate and as such, I anesthetized the skin overlying this area with 1% lidocaine. I then used a finder needle to inject the right femoral vein on the first attempt. Dark red, nonpulsatile blood was returned. A wire was advanced at this point. Sequential dilatation was performed and the Mahurkar temporary hemodialysis catheter was plac ed in the right femoral vein. Dark red nonpulsatile blood was returned from four ports quite easily. After it was advanced into the appropriate location, the wire was removed at this point. All ports were then flushed with saline and packed with heparinized saline solution and the catheter was then secured to the skin using an attached to a nylon suture and a sterile dressing placed over top. The patient tolerated the procedure well without evidence of complication and remained in the ER in good condition throughout the procedure. All counts were correct at the end of the case. KATIA/CARMINA Voice ID: [id number] Report ID: [id number]
[2021-06-24] MEDS ORDERED: ATORVASTATIN 20 MG TAB PO SCH (21:00)
[2021-06-25] MEDS: TACROLIMUS 0.5 MG PO SCH (04:47)
[2021-06-25] MEDS ORDERED: LEVOTHYROXINE SOD 0.075 MG TAB PO SCH (06:30)
--- NOTE | 2021-06-25 06:38 | P.PN ---
Subjective Date of Service: 06/25/21 Primary Care Provider: Rudi Chief Complaint: renal failure Subjective: No new changes Physical Examination - Vital Signs Temperature: 98.2 F Blood Pressure: 122/63 Pulse: 70 Respirations: 16 Pulse Ox (%): 94 - Physical Exam General: In no apparent distress HEENT: Normocephalic Neck: Supple, JVD not distended Respiratory: Clear to auscultation bilaterally Cardiovascular: No rubs, No murmurs Gastrointestinal: Soft and benign, Non-distended Musculoskeletal: No clubbing Integumentary: No warmth Neurological: Normal speech, Normal tone Lymphatics: No axilla or inguinal lymphadenopathy External genitalia: Deferred Rectal: Deferred Assessment And Plan - Plan # Hyperkalemia 2/2 spironolactone + JOE Serum K 3.6, wnl Avoid david # 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 Baseline SCr 2.0 (GFR 26 ml/min) as of 04/07/21. SCr 3.5 on adm, improved today to 2.3 (GFR 21) KTx US unremarkable +Pyuria, f/u UCx, give abx if +UCx +Subnephrotic proteinuria 2.5g Do NOT restrict po fluid intake, unless he develops hyponatremia, to avoid JOE # Chronic urinary obstruction Recommend to dc shen & resume scheduled CIC bid Cont flomax qhs # IS Home IS via Prograf + Prednisone Hold Prograf, resume tomorrow AM at home dose 0.5 mg po bid F/u Prograf trough level (goal 4-6) Cont Pred 5 mg po daily MMF 500 mg po q12h was d/c'ed in early 2020 # Metabolic acidosis Improved ABG pH wnl Received IV bicarb # Secondary hyperPTH, hypocalcemia Hx of osteoporosis Corrected serum Ca low normal currently Serum iPTH elevated at 137 25OHD wnl Cont calcitriol 1 mcg po daily Cont Tums 1000 mg po bid Started on D3 1000 IU po daily # Htn Cont current regimen # Pulmonary Htn Hx of COPD/chronic bronchitis & covid [address] in Sep 2020 showed multiple right lower lobe nodules & pulmo Htn w/ dilated main pulmo artery. TTE in December 2020 showed normal LVEF > 70%, LA severely dilated, gr. 1 diastolic dysfxn, unable to estimate PASP or RVSP. BNP sig elevated, +trop leak She will remain very Na avid d/t pulmo Htn. Once hyperK is resolved, avoid Na- containing IV fluid. Resume low dose lasix 20 mg po bid when NS gtt is d/c'ed tomorrow Avoid david d/t high risk for recurrent hyperK given low baseline GFR Advised on liberal po fluid intake at least 2L/d, unless she becomes hyponatremia, to avoid JOE # Cryptococcal PNA Cont Fluconazole 400 mg po daily # DM2 Mngt per primary team # Hypothyroidism Levothyroxine # HLD Simvastatin 20 mg po qhs # GERD Omeprazole # Dispo May dc today F/u at [facility] clinic Physician Review: Patient Assessed, Agree with Above Assessment and Plan
[2021-06-25 06:41] LABS: Absolute Lymphocytes (CBC) 0.7 K/uL (0.7-4.9); Basophils % 0.6 % (0-1.3); Hematocrit 30.7 % (36.0-45.0); Lymphocytes % 15.1 % (15.3-44.8); RBC Red Blood Cell Count 3.51 M/uL (3.86-4.86)
[2021-06-25 07:04] LABS: Albumin 2.5 g/dL (3.4-5.0); Bilirubin Total 0.3 mg/dL (0.2-1.0); Magnesium 2.2 mg/dL (1.8-2.4); Phosphorus 3.8 mg/dL (2.5-4.9); Potassium 3.6 mmol/L (3.5-5.1); Protein, Total 6.4 g/dL (6.4-8.2)
[2021-06-25] MEDS: INSULIN -REGULAR HUMAN 50 UNIT/0.5 ML ML SQ SCH ×2 (07:30→11:30)
[2021-06-25] MEDS: VITAMIN D 1000 UNIT TAB PO SCH (09:29)
[2021-06-25] MEDS: FLUCONAZOLE 100 MG TAB PO SCH (09:29)
[2021-06-25] MEDS: CALCITROL 0.25 MCG CAP PO SCH (09:30)
[2021-06-25] MEDS: MAGNESIUM CHLORIDE 64 MG TAB PO SCH (09:31)
[2021-06-25] MEDS: predniSONE 5 MG TAB PO SCH (09:31)
[2021-06-25] MEDS: ASCORBIC ACID 500 MG TABLET PO SCH (09:31)
[2021-06-25] MEDS: GABAPENTIN 100 MG CAP PO SCH (09:32)
[2021-06-25] MEDS: CALCIUM CARBONATE CHEW 500MG TAB PO SCH (09:32)
[2021-06-25] MEDS: FUROSEMIDE 20 MG TABLET PO SCH (09:32)
[2021-06-25] MEDS: PANTOPRAZOLE 40MG TABLET PO SCH (09:32)
--- NOTE | 2021-06-25 10:39 | P.DS ---
Admission Date: 06/22/21 Discharge Date: 06/25/21 Primary Care Provider: Rudi Disposition: ROUTINE DISCHARGE Discharge Condition: GOOD Reason for Admission: renal failure - Problems (1) CKD stage 5 due to type 2 diabetes mellitus Current Visit: Yes Status: Chronic (2) Obstructive uropathy Current Visit: Yes Status: Acute (3) Hx of kidney transplant Current Visit: No Status: Chronic (4) Hypertension Onset Date: 10/26/17 Current Visit: No Status: Chronic (5) Hypothyroidism Current Visit: Yes Status: Acute Qualifiers: Hypothyroidism type: unspecified Qualified Code(s): E03.9 - Hypothyroidism, unspecified Brief History of Present Illness: Patient is a recent office patient of Mrs Rudi MENDOZA. She has a history of dm2, esrd but had a kidney transplant. We were in the process of getting her old records. She has a history of obstructive uropathy Which the patient was treating with self cathing. However the patient was having some pain with the cathing and stopped for the last few days. She has been getting more lethargic and was brought to the ER by her family. She was found to have an elevated creatine. and was at stage 5. She had a cath placed by Dr. Byrd. However a shen catheter was also placed and the patient started making urine. Which saw her creatine improve. Plans for dialysis were held Hospital Course: Patient was here for acute on chronic renal failure. The patient had a ramírez cather placed. However with a shen she recovered very well. Will send her home with a shen cather. She can follow up next week with Dr. Wallace. She had ecoli in her urine. Asymptomatic. Will give her a short course of nitrofurantin. Thank you for allowing us to take part in her care. Vital Signs/Physical Exam: Temp Pulse Resp BP Pulse Ox 97.9 F 75 16 144/63 H 99 06/25/21 08:00 06/25/21 08:00 06/25/21 08:00 06/25/21 08:00 06/25/21 08:00 General: Alert, In no apparent distress HEENT: Atraumatic, PERRLA, EOMI Neck: Supple, JVD not distended Respiratory: Clear to auscultation bilaterally, Normal air movement Cardiovascular: Regular rate/rhythm, Normal S1 S2 Gastrointestinal: Normal bowel sounds, No tenderness Musculoskeletal: No tenderness Integumentary: No rashes Neurological: Normal speech, Normal tone, Normal affect Lymphatics: No axilla or inguinal lymphadenopathy Laboratory Data at Discharge: WBC 4.60 K/uL (4.3-10.9) 06/25/21 06:23 Hgb 10.0 g/dL (12.0-15.0) L 06/25/21 06:23 Hct 30.7 % (36.0-45.0) L 06/25/21 06:23 Plt Count 288 K/uL (152-406) 06/25/21 06:23 PT 11.9 SECONDS (9.5-12.5) 06/22/21 17:58 INR 1.03 06/22/21 17:58 Sodium 143 mmol/L (136-145) 06/25/21 06:23 Potassium 3.6 mmol/L (3.5-5.1) 06/25/21 06:23 BUN 37 mg/dL (7-18) H 06/25/21 06:23 Creatinine 2.34 mg/dL (0.55-1.3) H 06/25/21 06:23 Glucose 129 mg/dL (74-106) H 06/25/21 06:23 Phosphorus 3.8 mg/dL (2.5-4.9) 06/25/21 06:23 Magnesium 2.2 mg/dL (1.8-2.4) 06/25/21 06:23 Total Bilirubin 0.3 mg/dL (0.2-1.0) 06/25/21 06:23 AST 13 U/L (15-37) L 06/25/21 06:23 ALT 34 U/L (12-78) 06/25/21 06:23 Alkaline Phosphatase 133 U/L (45-117) H 06/25/21 06:23 Troponin I 0.09 ng/mL (0.0-0.045) H 06/23/21 08:48 Triglycerides 47 mg/dL (<150) 06/24/21 05:25 Cholesterol 111 mg/dL (<200) 06/24/21 05:25 HDL Cholesterol 54 mg/dL (40-60) 06/24/21 05:25 Cholesterol/HDL Ratio 2.06 06/24/21 05:25 Home Medications: Amlodipine [Norvasc*] 10 mg PO DAILY 07/04/19 Calcium Carbonate [Tums Regular*] 500 mg PO TID 07/04/19 Cholecalciferol (Vitamin D3) [Vitamin D3] 2,000 unit PO DAILY 07/04/19 Gabapentin [Neurontin*] 100 mg PO TID 07/04/19 Magnesium Chloride [Slow-Mag*] 64 mg PO DAILY 07/04/19 Omeprazole [Prilosec] 40 mg PO DAILY 07/04/19 Simvastatin 20 mg PO BEDTIME 07/04/19 Tacrolimus [Prograf] 2 cap PO BID 07/04/19 predniSONE [Prednisone*] 5 mg PO DAILY 07/04/19 Albuterol Inhaler [Ventolin Inhaler*] 2 puff IH Q6H PRN #1 hfa.aer.ad 08/03/20 Ascorbic Acid [Vitamin C] 500 mg PO DAILY 06/23/21 Calcitriol [Rocaltrol] 1 mcg PO DAILY 06/23/21 Furosemide [Lasix] 20 mg PO BID 06/23/21 Levothyroxine Sodium 50 mcg PO DAILY 06/23/21 Spironolactone 25 mg PO DAILY 06/23/21 Tamsulosin HCl 0.4 mg PO DAILY 06/23/21 Nitrofurantoin Macrocrystal [Macrodantin] 100 mg PO TID 5 Days #15 capsule 06/25/21 New Medications: Nitrofurantoin Macrocrystal [Macrodantin] 100 mg PO TID 5 Days #15 capsule Diet: Renal Activity: Ad amirah Followup: Ajay Wallace [ACTIVE - CAN ADMIT] - 1 Week Karli Grijalva FNP [facility] [Primary Care Provider] - 1 Week Time spent managing pt's care (in minutes): 30
[2021-06-25 12:30] VITALS: BP 122/63; TEMP 98.2
== END 2021-06-25 12:30 | disposition home or self-care (01) | DRG 683 ==
LOC: ER 17:33 → ERHOLD 19:49 → 4TH 06-23 08:30 → ERHOLD 06-23 08:38 → 2ND 06-23 12:49
PROVIDERS: ADMIT Internal Medicine; ATTEND Internal Medicine
PROC: 06HY33Z Insertion of Infusion Device into Lower Vein, Percutaneous Approach (ICD-10-PCS; principal; 2021-06-22)
PROC: 0T9B70Z Drainage of Bladder with Drainage Device, Via Natural or Artificial Opening (ICD-10-PCS; 2021-06-22)
DX: N17.9 Acute kidney failure, unspecified (principal); Z94.0 Kidney transplant status; N39.0 Urinary tract infection, site not specified; E87.2 Acidosis; I12.9 Hypertensive chronic kidney disease with stage 1 through stage 4 chronic kidney disease, or unspecified chronic kidney disease; N18.4 Chronic kidney disease, stage 4 (severe); E11.22 Type 2 diabetes mellitus with diabetic chronic kidney disease; E87.5 Hyperkalemia; B96.20 Unspecified Escherichia coli [E. coli] as the cause of diseases classified elsewhere; N13.9 Obstructive and reflux uropathy, unspecified; E03.9 Hypothyroidism, unspecified; N25.81 Secondary hyperparathyroidism of renal origin; E83.51 Hypocalcemia; I27.20 Pulmonary hypertension, unspecified; J44.9 Chronic obstructive pulmonary disease, unspecified; E78.5 Hyperlipidemia, unspecified; K21.9 Gastro-esophageal reflux disease without esophagitis; Z86.16 Personal history of COVID-19; Z85.528 Personal history of other malignant neoplasm of kidney; Z87.01 Personal history of pneumonia (recurrent); Z20.822 Contact with and (suspected) exposure to COVID-19
CPT/HCPCS: 36415; 51702; 70450; 74176; 76377; 76770; 80048; 80053; 80061; 80076; 80197; 81001; 81003; 81015; 82306; 82550; 82570; 82805; 82947; 83036; 83735; 83880; 83935; 83970; 84100; 84132; 84156; 84300; 84439; 84443; 84484; 85025; 85610; 87077; 87086; 87088; 87186; 93005; 94640; 96365; 96375; 99285; J0610; J1642; J1650; J1940; J7030; J7040; J7512; U0003

== ENCOUNTER 2021-08-05 16:06 | Emergency (ER) | payer OTHER ==
--- OUTSIDE RECORDS SUMMARY | 2021-08-05 16:10 | XMS REPORT | Continuity of Care Document ---
:1955 Author Organization [facility] t Address [address] [place] [address] Care Team Providers Name Role Phone VADIMFLORENCIOHIRAM BERNARDA Attending Clinician Unavailable SURJIT ATKINSON Attending Clinician [...] Na Long [address] [facility] 8-14 09-13 [facility] needed [facility] Cetirizine Cetirizine Yes Na Long [address] [facility] HCl HCl 6-22 Orally [facility] Once a [facility] Albuterol Albuterol Yes Na Long [address] [facility] Sulfate HFA Sulfate HFA 9-25 L [facility] - 00:[facility]: [facility] 00 l Outpat[facility] ent Clinics PredniSONE PredniSONE Yes [...] [facility] - (Isophane) (Isophane) [facility] Prilosec Prilosec Yes Na Long not [facility] defined [facility] Omeprazole Omeprazole Yes Na Long [address] [facility] 30 minutes [facility] - before [facility] morning [facility] Gabapentin Gabapentin Yes Na Long [address] [facility] Prolia Prolia Yes Na Long as [facility] NovoLog NovoLog Yes Na Long as [facility] Flexpen Flexpen directed [facility] Clonidine Clonidine Yes Na Long [address] [facility] HCl HCl [facility] Senokot S Senokot S Yes Na Long [address] [facility] in [facility] evening as [facility] needed [facility] Magnesium Magnesium Yes Na Long [address] [facility] Chloride Chloride [facility] Doxycycline Doxycycline Yes Na Long [address] [facility] Hyclate Hyclate [facility] Azithromyci Azithromyci Yes Na Long [address] [facility] n n on the [facility] - first day, Memoria then 1 l tablet Outpati daily for ent 4 days Clinics Flonase Flonase Yes Na Long [address] [facility] each [facility] nostril [facility] Humalog Humalog Yes Na Long not [facility] defined [facility] Cetirizine Cetirizine Yes Na Long TAKE [address] [facility] HCl HCl TABLET BY [facility] M[facility]TH [facility] Procedures This patient has no known procedures. Encounters Start End Encounter Admission Attending Care Care Encounter Source Date/Time Date/Time Type Type Clinicians Facility Department ID 2021-07-23 2021-07-23 amb[facility] [id number] 2021-07-06 2021-07-06 Outpatient RENETTA [facility] [id number] [place] 00:00:00 00:00:00 BERNARDA [facility] 2021-07-01 2021-07-01 [facility] [id number] [facility] 2021-04-07 2021-04-07 Outpatient ABDELLATIF, [facility] [id number] [place] 00:00:00 00:00:00 BERNARDA [address] 2021-04-07 2021-04-07 Outpatient ABDELLATIF, [facility] [id number] [place] 00:00:00 00:00:00 BERNARDA [address] 2021-02-18 2021-02-18 Outpatient SADHU, [facility] [id number] [place] 00:00:00 00:00:00 SURJIT 376 [facility] 2021-02-16 2021-02-16 Outpatient WELLER, [facility] [id number] [place] 00:00:00 00:00:00 MAYA [address] 2021-02-09 2021-02-09 Outpatient [facility] [id number] [place] 00:00:00 00:00:[address] 2021-01-27 2021-01-27 Outpatient ENRIKE HANSEN [facility] [id number] [place] 00:00:00 00:00:[address] 2021-01-22 2021-01-22 Outpatient ENRIKE HANSEN [facility] [id number] [place] 00:00:00 00:00:[address] 2021-01-21 2021-01-21 Outpatient RICKEY CERVANTESIC [facility] [id number] [place] 00:00:00 00:00:[address] 2021-01-21 2021-01-21 Outpatient [facility] [id number] [place] 00:00:00 00:00:[address] 2021-01-21 2021-01-21 Outpatient LEENRIKE [facility] [id number] [place] 00:00:00 00:00:[address] 2021-01-20 2021-01-20 Outpatient ABDELLATIF, [facility] [id number] [place] 00:00:00 00:00:00 BERNARDA [address] 2021-01-19 2021-01-19 Outpatient WELLER, [facility] [id number] [place] 00:00:00 00:00:00 MAYA [address] 2021-01-19 2021-01-19 Outpatient SADHU, [facility] [id number] [place] 00:00:00 00:00:00 SURJIT [address] 2021-01-19 2021-01-19 Outpatient SADHU, [facility] [id number] [place] 00:00:00 00:00:00 SURJIT [address] 2020-12-24 2020-12-24 Outpatient SADHU, [facility] [id number] [place] 00:00:00 00:00:00 SURJIT [address] 2020-12-24 2020-12-24 Outpatient ABDELLATIF, [facility] [id number] [place] 00:00:00 00:00:00 BERNARDA [address] 2020-11-25 2020-11-25 Outpatient ABDELLATIF, [facility] [id number] [place] 00:00:00 00:00:00 BERNARDA [address] 2020-11-24 2020-11-24 Outpatient WELLER, [facility] [id number] [place] 00:00:00 00:00:00 MAYA [address] 2020-11-12 2020-11-12 Outpatient SADHU, [facility] [id number] [place] 00:00:00 00:00:00 SURJIT [address] 2020-11-12 2020-11-12 Outpatient [facility] [id number] [facility] 00[facility]00 [facility] Clinics 2020-11-10 2020-11-10 Outpatient WELLER, [facility] [id number] 225 [place] 00:00:00 00:00:00 MAYA [address] 2020-10-28 2020-10-28 Outpatient ABDELLATIF, [facility] [id number] [place] 00:00:00 00:00:00 BERNARDA [address] 2020-10-27 2020-10-27 Outpatient ABDELLATIF, [facility] [id number] [place] 00:00:00 00:00:00 BERNARDA [address] 2020-10-27 2020-10-27 Outpatient WELLER, [facility] [id number] [place] 00:00:00 00:00:00 MAYA [address] 2020-10-14 2020-10-14 Outpatient ABDELLATIF, [facility] [id number] [place] 00:00:00 00:00:00 BERNARDA [address] 2020-10-13 2020-10-13 Outpatient WELLER, [facility] [id number] [place] 00:00:00 00:00:00 MAYA [address] 2020-10-06 2020-10-06 Outpatient [facility] [id number] [facility] 2020-09-30 2020-09-30 Outpatient WELLER, [facility] [id number] [place] 00:00:00 00:00:00 MAYA [address] 2020-09-30 2020-09-30 Outpatient WELLER, [facility] [id number] [place] 00:00:00 00:00:00 MAYA [address] 2020-09-26 2020-09-26 Outpatient [facility] [id number] [facility] 2020-09-17 2020-09-24 Inpatient FAN, [facility] [id number] [place] 00:00:00 00:00:00 JINPING [address] 2020-08-30 2020-09-17 Inpatient FAN, [facility] [id number] [place] 00:00:00 00:00:00 JINPING [address] 2020-08-08 2020-08-08 Outpatient [facility] [id number] [facility] 2020-08-06 2020-08-06 Outpatient [facility] [id number] [facility] 2020-08-05 2020-08-05 Outpatient ABDELLATIF, [facility] [id number] [place] 00:00:00 00:00:00 BERNARDA [address] 2020-08-05 2020-08-05 Outpatient SEBASTIEN, [facility] [id number] [place] 00:00:00 00:00:00 AHMED [address] 2020-08-04 2020-08-04 Outpatient [facility] [id number] [facility] 2020-07-07 2020-07-07 Outpatient ABDELLATIF, [facility] [id number] [place] 00:00:00 00:00:00 BERNARDA [address] 2020-06-02 2020-06-02 Outpatient [facility] [id number] [facility] 2020-05-22 2020-05-22 Outpatient [facility] [id number] [facility] 2020-05-20 2020-05-20 Outpatient [facility] [id number] [address] [place] [address] 00:00:00 00:00:00 SURJIT [address] 2020-03-14 2020-03-14 [facility] [id number] [facility] 16:20:00 16:20:[address] [place] [address] [facility] [address] - [facility] Out[facility] Clinics 2020-02-23 2020-02-23 Out[facility] [id number] 17:58:00 17:58:[address] [place] [address] Luke [address] - Drive [facility] Out[facility] Clinics 2020-02-18 2020-02-18 Out[facility] [id number] 08:20:00 08:20:[address] [place] [address] Luke [address] - Drive [facility] Out[facility] Clinics 2020-01-22 2020-01-22 [facility] [id number] [place] 00:00:00 00:00:00 MAYA [address] 2020-01-21 2020-01-21 Out[facility] [id number] 13:00:00 13:00:[address] [place] [address] Luke s - Drive [facility] Medicine l Medicine Outpati ent Clinics 2020-01-15 2020-01-15 [facility] [id number] [place] 00:00:00 00:00:00 BERNARDA [address] 2019-12-11 2019-12-11 Out[facility] [id number] 16:09:00 16:09:00 t [facility] ent [facility] 2019-12-07 2019-12-07 [facility] [id number] 13:40:00 13:40:00 [facility] 2019-12-07 2019-12-07 [facility] [id number] 08:06:00 08:06:00 [facility] ent [facility] 2019-12-06 2019-12-06 Out[facility] [id number] 11:59:00 11:59:00 [facility] ent [facility] 2019-11-23 2019-11-25 [facility] [id number] [place] 00:00:00 00:00:00 YULISA [address] 2019-10-11 2019-10-11 [facility] [id number] 09:00:00 09:00:00 [facility] ent [facility] Results Test Description Test Time Test Comments Results Result Comments Source SARS-CoV-2 (COVID-19) RNA [Presence] in Respiratory sp ecimen by 2021-01-21 18:33:15 FROYLAN with probe detection Test Item Value Reference Range Interpretation Comme nts SARS-CoV-2 (COVID-19) RNA [Presence] in Respiratory Not detected No t-Detected specimen by FROYLAN with probe detection (test code = 01530-2) Whether patient is employed in a healthcare setting (test code = 19998-7) Whether the patient has symptoms related to condition of interest (test code = 47940-1) Patient was hospitalized because of this condition (test code = 31782-1) Whether the patient was admitted to intensive care unit (ICU) for condition of interest (test code = 56989-7) Whether patient resides in a congregate care setting (test code = 61415-6) SARS-CoV-2 (COVID-19) RNA [Presence] in Respiratory specimen by FROYLAN with probe [id number] 19:48:29 Test Item Value Reference Range Interpretation Comments SARS-CoV-2 (COVID-19) RNA Not detected Not-Detected [Presence] in Respiratory specimen by FROYLAN with probe detection (test code = 67708-2) SARS-CoV-2 (COVID-19) IgG+IgM Ab [Presence] in Serum or Plasma by Immunoassay 2020-09-01 06:21:00 Test Item Value Reference Range Interpretation Comments SARS-CoV-2 (COVID-19) IgG+IgM Ab Positive [Presence] in Serum or Plasma by Immunoassay (test code = 45540-5) SARS-CoV-2 (COVID-19) RNA [Presence] in Respiratory specimen by FROYLAN with probe [id number] 12:03:17 Test Item Value Reference Range Interpretation Comments SARS-CoV-2 (COVID-19) RNA [Presence] Detected Not-Detected in Respiratory specimen by FROYLAN with probe detection (test code = 66653-8) TISSUE [id number] 16:45:00 Test Item Value Reference Range Interpretation Comments LAB AP CPT CODE ([facility]) (test code = 61350 2749) TACROLIMUS [id number] 09:09:00 Test Item Value Reference Range Interpretation Comments TACROLIMUS BLOOD ([facility]) (test 6.8 ng/mL 10.0-20.0 L code = 657) POCT-GLUCOSE [id number] 07:33:00 Test Item Value Reference Range Interpretation Comments POC-GLUCOSE METER 138 mg/dL 70-[address] [facility] 6720 ([facility]) (test code = [place]38) [address] BASIC METABOLIC [id number] 05:08:00 Test Item Value Reference Range Interpretation Comments SODIUM (BEAKER) 139 meq/L 136-145 (test code = 381) POTASSIUM (BEAKER) 4.7 meq/L 3.5-5.1 (test code = 379) CHLORIDE (BEAKER) 109 meq/L 98-107 H (test code = 382) CO2 (BEAKER) (test 23 meq/L 22-29 code = 355) BLOOD UREA NITROGEN 21 mg/dL 7-21 (AKER) (test code = 354) CREATININE (BEAKER) 1.08 [...] PATIEN TS. CBC W/PLT COUNT & AUTO [id number] 04:51:00 Test Item Value Reference Range Interpretation [...] NEUTROPHILS ABSOLUTE COUNT 3.17 K/ L 1.80-8.00 ([facility]) (test code = 670) LYMPHOCYTES ABSOLUTE COUNT 0.45 K/ L 1.48-4.50 L ([facility]) (test code = 414) MONOCYTES ABSOLUTE COUNT (BEAKER) 0.50 K/ L 0.00-1.30 (test code = 415) EOSINOPHILS ABSOLUTE COUNT 0.02 K/ L 0.00-0.50 (AKER) (test code = 416) BASOPHILS ABSOLUTE COUNT (BEAKER) 0.00 K/ L 0.00-0.20 (test code = 417) 0.00POCT-GLUCOSE [id number] 01:09:00 Test Item Value Reference Range Interpretation Comments POC-GLUCOSE METER 97 mg/dL 70-110 TESTED AT [place] [address] ([facility]) (test code = [facility] Kory [facility] [address] 1538) POCT-GLUCOSE [id number] 21:30:00 Test Item Value Reference Range Interpretation Comments POC-GLUCOSE METER 424 mg/dL 70-110 HH Notified R Bibiana PILLAI/TESTED ([facility]) (test code = AT [address] 1538) [facility] 7703 0 POCT-GLUCOSE [id number] 17:04:00 Test Item Value Reference Range Interpretation Comments POC-GLUCOSE METER 198 mg/dL 70-110 H TESTED AT [place] [address] ([facility]) (test code = [facility] 1538) [address] POCT-GLUCOSE [id number] 12:51:00 Test Item Value Reference Range Interpretation Comments POC-GLUCOSE METER 205 mg/dL 70-110 H TESTED AT [place] [address] ([facility]) (test code = [facility] 1538) [address] TACROLIMUS [id number] 12:35:00 Test Item Value Reference Range Interpretation Comments TACROLIMUS BLOOD ([facility]) (test 5.9 ng/mL 10.0-20.0 L code = 657) POCT-GLUCOSE [id number] 08:32:00 Test Item Value Reference Range Interpretation Comments POC-GLUCOSE METER 60 mg/dL 70-110 L TESTED AT [place] [address] ([facility]) (test code = [facility] [address] 1538) POCT-GLUCOSE [id number] 21:41:00 Test Item Value Reference Range Interpretation Comments POC-GLUCOSE METER 202 mg/dL 70-110 H TESTED AT [place] [address] ([facility]) (test code = [place] [facility] 1538) [address] POCT-GLUCOSE [id number] 17:36:00 Test Item Value Reference Range Interpretation Comments POC-GLUCOSE METER 191 mg/dL 70-110 H TESTED AT [place] [address] ([facility]) (test code = [place] [facility] 1538) [address] POCT-GLUCOSE [id number] 11:01:00 Test Item Value Reference Range Interpretation Comments POC-GLUCOSE METER 232 mg/dL 70-110 H TESTED AT [place] [address] ([facility]) (test code = [place] [facility] 1538) [address] TACROLIMUS [id number] 10:16:00 Test Item Value Reference Range Interpretation Comments TACROLIMUS BLOOD (BEAKER) (test 8.3 ng/mL 10.0-20.0 L code = 657) POCT-GLUCOSE [id number] 08:16:00 Test Item Value Reference Range Interpretation Comments POC-GLUCOSE METER 366 mg/dL 70-110 H TESTED AT [place] [address] ([facility]) (test code = [facility] [place] [facility] 1538) [address] BASIC METABOLIC [id number] 06:57:00 Test Item Value Reference Range Interpretation [...] APPLICABLE FOR DIALYSIS PATIEN TS. HEMOGLOBIN AND [id number] 06:40:00 Test Item Value Reference Range Interpretation Comments HEMOGLOBIN (BEAKER) (test code = 11.4 GM/DL 12.0-15.0 L 410) HEMATOCRIT (BEAKER) (test code = 36.1 % 36.0-45.0 411) POCT-GLUCOSE [id number] 23:30:00 Test Item Value Reference Range Interpretation Comments POC-GLUCOSE METER 274 mg/dL 70-[address] [facility] 6720 (BEAKER) (test code = [place] 1538) [address] BASIC METABOLIC [id number] 18:49:00 Test Item Value Reference Range Interpretation [...] APPLICABLE FOR DIALYSIS PATIEN TS. HEMOGLOBIN AND [id number] 18:35:00 Test Item Value Reference Range Interpretation Comments HEMOGLOBIN (BEAKER) (test code = 11.5 GM/DL 12.0-15.0 L 410) HEMATOCRIT (BEAKER) (test code = 35.6 % 36.0-45.0 L 411) BASIC METABOLIC [id number] 12:08:00 Test Item Value Reference Range Interpretation [...] 0-0 (BEAKER) (test code = 413) 0.00POTASSIUM-STAT [id number] 11:43:00 Test Item Value Reference Range Interpretation Comments POTASSIUM (BEAKER) (test code = 4.3 meq/L 3.6-5.5 379) POCT-GLUCOSE [id number] 11:34:00 Test Item Value Reference Range Interpretation Comments POC-GLUCOSE METER 82 mg/dL 70-[address] [facility] 6720 (BEAKER) (test code = [place] [address] 1538) URINE [id number] 11:19:00 Test Item Value Reference Range Interpretation Comments CULTURE (BEAKER) (test 20-29,000 col/mL skin code = 1095) tea URINALYSIS W/ [id number] 15:16:00 Test Item Value Reference Range Interpretation [...] code = 516) SOURCE(BEAKER) (test code = 2799) CBC W/PLT COUNT & AUTO [id number] 14:56:00 Test Item Value Reference Range Interpretation [...] 0.00-0.20 (test code = 417) 0.00BASI METABOLIC [id number] 14:55:00 Test Item Value Reference Range Interpretation [...] S NOT APPLICABLE FOR DIALYSIS PATIISAIAH TS. [id number] 14:51:00 Test Item Value Reference Range Interpretation Comments PARTIAL THROMBOPLASTIN TIME 30.7 seconds 22.5-36.0 (BEAKER) (test code = 760) PROTHROMBIN TIME/[id number] 14:50:00 Test Item Value Reference Range Interpretation [...]
--- NOTE | 2021-08-05 22:10 | RAD REPORT ---
EXAM DESCRIPTION: CT - Head Brain Wo Cont - 08/05/2021 9:58 pm CLINICAL HISTORY: Dizziness COMPARISON: August 2020 TECHNIQUE: Computed axial tomography of the head was obtained. IV contrast was not requested. All CT scans are performed using dose optimization technique as appropriate and may include automated exposure control or mA/KV adjustment according to patient size. FINDINGS: An intracranial bleed is not seen . The ventricles are normal in caliber. No extra-axial fluid collection is noted. Fluid within the sinuses/ mastoids is not seen. Chronic right maxillary sinusitis IMPRESSION: No acute intracranial abnormality is seen. If patient's symptoms persist MRI of the bra in would be recommended.
[2021-08-05 22:54] LABS: Absolute Lymphocytes (CBC) 0.6 K/uL (0.7-4.9); Hematocrit 30.9 % (36.0-45.0); Lymphocytes % 13.8 % (15.3-44.8); MPV 8.1 fL (7.6-11.3)
[2021-08-05 22:57] LABS: Protime INR 0.91
[2021-08-05 23:28] LABS: SARS-COV-2 RT PCR NEGATIVE (NEGATIVE)
[2021-08-05 23:37] LABS: Albumin 3.8 g/dL (3.4-5.0); Bilirubin Direct 0.1 mg/dL (0-0.2); Bilirubin Total 0.3 mg/dL (0.2-1.0); Magnesium 2.8 mg/dL (1.8-2.4); Potassium 4.3 mmol/L (3.5-5.1); Protein, Total 8.2 g/dL (6.4-8.2); Troponin (Emerg Dept Use Only) 0.11 ng/mL (0.0-0.045)
[2021-08-05 23:38] LABS: Thyroid Stimulating Hormone 5.97 uIU/mL (0.360-3.740)
--- NOTE | 2021-08-06 01:54 | ER ---
Nurse's Notes [facility] Name: Paola Mishra Age: 65 yrs Sex: Female : 1955 Arrival Date: 08/05/2021 Time: 16:11 Bed 16 Private MD: Fito Bernal Diagnosis: Pedal edema. S/P kidney transplant. Chronic renal disease. Hypothyroidism. Dizziness. Pulmonary nodules. Diabetes Presentation: 08/05 16:50 Chief complaint: Patient states: For one week I have been feeling very tired, and very ld1 dizzy. I went to see my doctor and he sent me to the ER - for my heart because my legs have been very swollen. Coronavirus screen: At this time, the client does not indicate any symptoms associated with coronavirus-19. Ebola Screen: No symptoms or risks identified at this time. Initial Sepsis Screen: Does the patient meet any 2 criteria? No. Patient's initial sepsis screen is negative. Does the patient have a suspected source of infection? No. Patient's initial sepsis screen is negative. Risk Assessment: Do you want to hurt yourself or someone else? Patient reports no desire to harm self or others. Onset of symptoms was August 05, 2021. 16:50 Method Of Arrival: Ambulatory ld1 16:50 Acuity: NOHELIA 3 ld1 Triage Assessment: 16:50 General: Appears in no apparent distress. comfortable, Behavior is calm, cooperative, ld1 appropriate for age. Pain: Denies pain. Neuro: Level of Consciousness is awake, alert, obeys commands, Oriented to person, place, time, situation, Appropriate for age. Cardiovascular: Capillary refill < 3 seconds Patient's skin is warm and dry. Respiratory: Airway is patent Respiratory effort is even, unlabored, Respiratory pattern is regular, symmetrical. Historical: - Allergies: 16:50 NKDA; ld1 - PMHx: 16:50 Diabetes - IDDM; ESRD; no longer does dialysis, recieved kidney transplant; fungal ld1 meningitis; Hypertension; Hyperlipidemia; kidney transplant; Self straight caths; - Immunization history:: Adult Immunizations up to date, Client reports receiving the 2nd dose of the Covid vaccine, moderna. - Social history:: Smoking status: Patient denies any tobacco usage or history of. Patient/guardian denies using alcohol. Screenin/06 00:03 Abuse screen: Denies threats or abuse. Denies injuries from another. Nutritional mr2 screening: No deficits noted. Tuberculosis screening: No symptoms or risk factors identified. Fall Risk None identified. Vital Signs: 08/05 16:50 BP 124 / 71; Pulse 69; Resp 18; Temp 98.1(O); Pulse Ox 99% on R/A; Weight 53.52 kg; ld1 Height 5 ft. 1 in. (154.94 cm); Pain 0/10; 08/06 01:50 BP 135 / 79; Pulse 66; Resp 18; Temp 98.4; Pulse Ox 98% on R/A; mr2 08/05 16:50 Body Mass Index 22.30 (53.52 kg, 154.94 cm) ld1 ED Course: 08/05 16:11 Patient arrived in ED. mr 16:11 Fito Bernal MD is Private Physician. mr 16:50 Arm band placed on right wrist. ld1 16:54 Triage completed. ld1 21:08 Edin Wesley MD is Attending Physician. pkl 21:13 Felipe Escudero, BO is Primary Nurse. mr2 21:57 Basic Metabolic Panel Sent. mr2 21:57 CBC with Diff Sent. mr2 21:57 LFT's Sent. mr2 21:57 Magnesium Sent. mr2 21:57 NT PRO-BNP Sent. mr2 21:57 PT-INR Sent. mr2 21:57 Troponin (emerg Dept Use Only) Sent. mr2 21:57 D-Dimer Sent. mr2 21:57 COVID-19/FLU A+B (Document "Date of Onset" if Symptomatic) Sent. mr2 21:57 Basic Metabolic Panel Sent. mr2 21:58 CT Head Brain wo Cont In Process Unspecified. EDMS 22:08 XRAY Chest (1 view) In Process Unspecified. EDMS 08/06 00:01 Patient has correct armband on for positive identification. Bed in low position. Call mr2 light in reach. Side rails up X2. 00:20 No provider procedures requiring assistance completed. mr2 00:25 Hemoglobin A1c Sent. mr2 00:52 EKG done, by ED staff, reviewed by Edin Wesley MD. lt3 00:53 Thorax Wo Con In Process Unspecified. EDMS 01:37 US Extremity Venous W Compression Jose Enrique In Process Unspecified. EDMS 01:50 Fito Bernal MD is Referral Physician. pkl 02:10 IV discontinued. mr2 Administered Medications: No medications were administered Outcome: 01:53 Discharge ordered by . pkl 02:27 Discharged to home ambulatory, with family. mr2 02:27 Condition: stable 02:27 Discharge instructions given to patient, Instructed on follow up and referral plans. 02:28 Patient left the ED. mr2 Signatures: Dispatcher [employer] EDMS Edin Wesley MD MD pkl Rivera, Mary mr Onelia Saldivar, RN RN ld1 Felipe Escudero RN RN mr2 Netta Huitron 3 Corrections: (The following items were deleted from the chart) 08/05 22:46 21:58 THYROID STIMULAT HORMONE+C.LAB.BRZ drawn and sent. mr2 EDMS
--- NOTE | 2021-08-06 01:54 | EDPHYS ---
Physician Documentation [facility] Name: Paola Mishra Age: 65 yrs Sex: Female : 1955 Arrival Date: 08/05/2021 Time: 16:11 Bed 16 Private MD: Fito Bernal ED Physician Edin Wesley HPI: 08/05 22:49 This 65 yrs old Female presents to ER via Ambulatory with complaints of Work pkl up per Dr Bernal. 22:50 The patient presents with swelling. The complaints affect the both legs. Onset: The pkl symptoms/episode began/occurred 2 week(s) ago. Associated signs and symptoms: Pertinent positives: tired and dizziness. Historical: - Allergies: 16:50 NKDA; ld1 - PMHx: 16:50 Diabetes - IDDM; ESRD; no longer does dialysis, recieved kidney transplant; fungal ld1 meningitis; Hypertension; Hyperlipidemia; kidney transplant; Self straight caths; - Immunization history:: Adult Immunizations up to date, Client reports receiving the 2nd dose of the Covid vaccine, moderna. - Social history:: Smoking status: Patient denies any tobacco usage or history of. Patient/guardian denies using alcohol. ROS: 22:50 Eyes: Negative for injury, pain, redness, and discharge, ENT: Negative for injury, pkl pain, and discharge, Neck: Negative for injury, pain, and swelling, Cardiovascular: Negative for chest pain, palpitations, and edema, Respiratory: Negative for shortness of breath, cough, wheezing, and pleuritic chest pain, Abdomen/GI: Negative for abdominal pain, nausea, vomiting, diarrhea, and constipation, Back: Negative for injury and pain, : Negative for injury, bleeding, discharge, and swelling. 22:50 MS/extremity: Positive for swelling, of the both legs. 22:50 Skin: Negative for rash. 22:50 Neuro: Negative for altered mental status, loss of consciousness. Exam: 22:50 Head/Face: Normocephalic, atraumatic. Eyes: Pupils equal round and reactive to light, pkl extra-ocular motions intact. Lids and lashes normal. Conjunctiva and sclera are non-icteric and not injected. Cornea within normal limits. Periorbital areas with no swelling, redness, or edema. ENT: Nares patent. No nasal discharge, no septal abnormalities noted. Tympanic membranes are normal and external auditory canals are clear. Oropharynx with no redness, swelling, or masses, exudates, or evidence of obstruction, uvula midline. Mucous membranes moist. Neck: Trachea midline, no thyromegaly or masses palpated, and no cervical lymphadenopathy. Supple, full range of motion without nuchal rigidity, or vertebral point tenderness. No Meningismus. Chest/axilla: Normal chest wall appearance and motion. Nontender with no deformity. No lesions are appreciated. Cardiovascular: Regular rate and rhythm with a normal S1 and S2. No gallops, murmurs, or rubs. Normal PMI, no JVD. No pulse deficits. Respiratory: Lungs have equal breath sounds bilaterally, clear to auscultation and percussion. No rales, rhonchi or wheezes noted. No increased work of breathing, no retractions or nasal flaring. Abdomen/GI: Soft, non-tender, with normal bowel sounds. No distension or tympany. No guarding or rebound. No evidence of tenderness throughout. Back: No spinal tenderness. No costovertebral tenderness. Full range of motion. Skin: Warm, dry with normal turgor. Normal color with no rashes, no lesions, and no evidence of cellulitis. 22:50 Musculoskeletal/extremity: Extremities: grossly normal except: noted in the both legs: swelling. 22:50 Neuro: Orientation: is normal, Mentation: is normal, Memory: is normal, Cranial nerves: grossly normal, Cerebellar function: is grossly normal, Motor: is normal, Sensation: is normal. Vital Signs: 16:50 BP 124 / 71; Pulse 69; Resp 18; Temp 98.1(O); Pulse Ox 99% on R/A; Weight 53.52 kg; ld1 Height 5 ft. 1 in. (154.94 cm); Pain 0/10; 08/06 01:50 BP 135 / 79; Pulse 66; Resp 18; Temp 98.4; Pulse Ox 98% on R/A; mr2 08/05 16:50 Body Mass Index 22.30 (53.52 kg, 154.94 cm) ld1 MDM: 01:11 Data reviewed: vital signs, nurses notes, lab test result(s), EKG, radiologic studies, pkl CT scan, plain films, ultrasound. ED course: Attempts ( x 2 ) to talk to Dr. Bernal unsuccessful. . :41 ED course: Patient not in any distress. Discussed lab, EKG and imaging studies with [facility] patient and . Options given to patient to be admitted for further observation or to follow up with Dr. Bernal in the morning. Patient want to go home and follow up with Dr. Bernal in the morning. To return if necessary. Lab results. EKG and imaging results given to patient. She will bring the results with her when she follow up with Dr. Bernal in the morning. Patient understood instructions. 01:53 Patient medically screened. pk 08/05 21:19 Order name: Basic Metabolic Panel pk 08/05 21:19 Order name: CBC with Diff; Complete Time: 00:15 pkl 08/05 21:19 Order name: LFT's; Complete Time: 00:15 pk 08/05 21:19 Order name: Magnesium; Complete Time: 00:15 pkl 08/05 21:19 Order name: NT PRO-BNP; Complete Time: 00:15 pkl 08/05 21:19 Order name: PT-INR; Complete Time: 00:15 pkl 08/05 21:19 Order name: Troponin (emerg Dept Use Only); Complete Time: 00:15 pkl 08/05 21:19 Order name: D-Dimer; Complete Time: 00:15 pkl 08/05 21:19 Order name: COVID-19/FLU A+B (Document "Date of Onset" if Symptomatic); Complete Time: pkl 00:15 08/05 21:19 Order name: Basic Metabolic Panel; Complete Time: 00:15 EDMS 08/05 22:47 Order name: Thyroid Stimulating Hormone; Complete Time: 00:15 EDMS 08/05 23:40 Order name: T4 Free; Complete Time: 00:15 EDMS 08/05 21:19 Order name: XRAY Chest (1 view) pk 08/05 21:19 Order name: EKG; Complete Time: 21:20 pkl 08/05 21:19 Order name: Cardiac monitoring; Complete Time: 21:57 pkl 08/05 21:19 Order name: EKG - Nurse/Tech; Complete Time: 00:52 pk 08/05 21:19 Order name: IV Saline Lock; Complete Time: 21:57 pkl 08/05 21:19 Order name: Labs collected and sent; Complete Time: 21:57 pkl 08/05 21:19 Order name: O2 Per Protocol; Complete Time: 21:57 pkl 08/05 21:19 Order name: O2 Sat Monitoring; Complete Time: 21:57 pkl 08/05 21:20 Order name: CT Head Brain wo Cont; Complete Time: 22:40 pkl 08/06 00:21 Order name: Hemoglobin A1c pkl 08/06 00:34 Order name: Thorax Wo Con EDMS 08/06 00:52 Order name: US Extremity Venous W Compression Jose Enrique pkl 08/06 01:57 Order name: Accucheck Blood Glucose pkl 08/06 02:20 Order name: Glucose, Ancillary Testing; Complete Time: 03:17 EDMS Administered Medications: No medications were administered Disposition Summary: 08/06/21 01:53 Discharge Ordered Location: Home pkl Condition: Stable pkl Diagnosis - Pedal edema. S/P kidney transplant. Chronic renal disease. Hypothyroidism. pkl Dizziness. Pulmonary nodules. Diabetes Followup: pkl - With: Fito Bernal MD - When: Today - Reason: Re-evaluation by your physician Forms: - Medication Reconciliation Form pkl - Thank You Letter pkl - Antibiotic Education pkl - Prescription Opioid Use pkl Signatures: Dispatcher [employer] EDMS Edin Wesley MD MD pkl Onelia Saldivar RN RN ld1 Corrections: (The following items were deleted from the chart) 08/05 22:46 21:22 THYROID STIMULAT HORMONE+C.LAB.BRZ ordered. EDMS EDMS 22:47 22:46 CREATININE, SERUM+C.LAB.BRZ ordered. EDMS EDMS 22:52 22:49 The patient presents with swelling, pkl pkl 08/06 00:22 00:22 Hemoglobin A1C ordered. EDMS EDMS 00:22 00:22 Hemoglobin A1C ordered. EDMS EDMS 00:34 08/05 22:48 Chest For PE Angio+CT.RAD.BRZ ordered. EDMS EDMS
[2021-08-06 02:34] VITALS: BP 135/79; TEMP 98.4; O2SAT 98
--- NOTE | 2021-08-06 07:47 | RAD REPORT ---
EXAM DESCRIPTION: [facility] Single View08/05/2021 10:08 pm CLINICAL HISTORY: Chest pain COMPARISON: August [address] chest August 05, 2021 FINDINGS: Bilateral pulmonary opacities seen on the prior exam have generally resolved. Described pulmonary nodules on the recent CT chests are not clearly visualized on this exam. Please r efer to that report for recommendation Heart is normal size
--- NOTE | 2021-08-06 07:58 | RAD REPORT ---
EXAM DESCRIPTION: USExtrem Venous W Compress Bil08/06/2021 1:37 am CLINICAL HISTORY: Leg swelling COMPARISON: 2019 FINDINGS: The common femoral, superficial femoral, popliteal and posterior tibial veins bilaterally are compressible and demonstrate augmentation. Doppler demonstrates good flow. IMPRESSION: No evidence of deep venous thrombosis involving either lower extremity.
--- NOTE | 2021-08-06 11:01 | RAD REPORT ---
EXAM DESCRIPTION: CT - Thorax Lawrence Lezama - 08/06/2021 4:36 am CLINICAL HISTORY: 65 years, Female, DYSPNEA COMPARISON: None. FINDINGS: Multiple transaxial tomograms of the chest were obtained from the lung apices through the adrenal glands, utilizing 5 mm slice thickness at 5 mm interval reconstruction without the administra tion of IV contrast. Multiplanar reformats in the sagittal and coronal plane were generated and reviewed. This exam was performed according to our departmental dose-optimization protocol, which includes auto mated exposure control, adjustment of the mA and/or kV according to patient size and/or use of iterat arturo reconstruction technique. The lungs parenchyma demonstrate minimal bandlike density within the mid right and left lung perhaps corresponding to atelectasis. No focal areas of consolidation/or opacities. There is a posterior segm ent right lower lobe pulmonary nodule measuring 5 mm on image 28/57. There is a 2 mm pulmonary nodule posterior segment left lower lobe on image 35 The trachea mainstem bronchus demonstrate to be normal. There is no significant pleural and/or perica rdial effusions. The thoracic aorta demonstrate minimal intimal calcification at the aortic arch and descending portio n. The heart is not enlarged. There are mitral annular calcification and coronary artery calcifications. There is no significant mediastinal and/or hilar lymphadenopathy. The axillary regions demonstrate to be clear. The bone windows demonstrate no significant skeletal lesions. The visualized portions of the upper abdomen demonstrate atrophic kidney. IMPRESSION: 5 mm posterior segment right lower lobe pulmonary nodule. 2 mm pulmonary nodule posterio r segment left lower lobe. No routine follow-up imaging is recommended per Fleischner Society Guideli alex. These guidelines do not apply to immunocompromised patients and patients with cancer. Follow up in pa tients with significant comorbidities as clinically warranted. For lung cancer screening, adhere to L becky-RADS guidelines. Reference: Radiology. 2017; 284(1):228-43. Atrophic kidney. Electronically signed by: Bill Worthington MD 08/06/2021 1:04 AM HOSPICE RN Due to temporary technical issues with the PACS/Fluency reporting system, reports are being signed by the in house radiologists without review as a courtesy to insure prompt reporting. The interpreting radiologist is fully responsible for the content of the report.
== END 2021-08-06 02:28 | disposition home or self-care (01) ==
LOC: ER 16:06
DX: R60.9 Edema, unspecified (principal); Z94.0 Kidney transplant status; E03.9 Hypothyroidism, unspecified; E11.22 Type 2 diabetes mellitus with diabetic chronic kidney disease; I12.0 Hypertensive chronic kidney disease with stage 5 chronic kidney disease or end stage renal disease; N18.6 End stage renal disease; R91.8 Other nonspecific abnormal finding of lung field; Z20.822 Contact with and (suspected) exposure to COVID-19
CPT/HCPCS: 0240U; 36415; 70450; 71045; 71250; 80048; 80076; 82947; 83735; 83880; 84439; 84443; 84484; 85025; 85379; 85610; 93005; 93970; 99283

== ENCOUNTER 2021-08-06 16:08 | Inpatient (IN) | payer OTHER ==
--- OUTSIDE RECORDS SUMMARY | 2021-08-06 16:13 | XMS REPORT | Continuity of Care Document ---
:1955 Author Organization [facility] t Address [address] [place] [address] Care Team Providers Name Role Phone VADIMFLORENCIOHIRAM [...] - 00:00: 00:00 [facility] 00 [facility] Cetirizine Cetirizine Yes Na Long [address] [facility] HCl HCl 6-22 Orally [facility]: Once a day [facility] 00 [facility] Albuterol Albuterol Yes Na Long [address] [facility] Sulfate HFA Sulfate HFA 9-25 L [facility] - 00:[facility]: [facility] PredniSONE PredniSONE Yes Na Long [address] [facility] Prograf Prograf Yes Na Lnog not [facility] defined [facility] [...] [facility] - (Isophane) (Isophane) [facility] Prilosec Prilosec Yes Na Long not [facility] Omeprazole Omeprazole Yes Na Long [address] [facility] 30 minutes [facility] - before [facility] morning l meal [facility] Gabapentin Gabapentin Yes Na Long [address] [facility] Prolia Prolia Yes Na Long as [facility] NovoLog NovoLog Yes Na Long as [facility] Flexpen Flexpen directed [facility] Clonidine Clonidine Yes Na Long [address] [facility] HCl HCl [facility] Senokot S Senokot S Yes Na Long [address] [facility] in the [facility] - evening as [facility] needed [facility] Magnesium Magnesium Yes Na Long [address] [facility] Chloride Chloride [facility] Doxycycline Doxycycline Yes Na Long [address] [facility] Hyclate Hyclate [facility] Azithromyci Azithromyci Yes Na Long [address] [facility] n n on the [facility] - first day, Memoria then 1 l tablet Outpati daily for ent 4 days Clinics Flonase Flonase Yes Na Long [address] [facility] each [facility] nostril [facility] Humalog Humalog Yes Na Long not [facility] Cetirizine Cetirizine Yes Na Long TAKE [address] [facility] HCl HCl TABLET BY [facility] - MOUTH [facility] EVERY DAY [facility] Procedures This patient has no known procedures. Encounters Start End Encounter Admission Attending Care Care Encounter Source Date/Time Date/Time Type Type Clinicians Facility Department ID 2021-07-23 2021-07-23 [id number] 2021-07-06 2021-07-06 Outpatient RENETTA [facility] [id number] [place] 00:00:00 00:00:00 BERNARDA [facility] 2021-07-01 2021-07-01 [facility] [id number] [facility] 2021-04-07 2021-04-07 Outpatient ABDELLATIF, [facility] [id number] [place] 00:00:00 00:00:00 BERNARDA [address] 2021-04-07 2021-04-07 Outpatient ABDELLATIF, [facility] [id number] [place] 00:00:00 00:00:00 BERNARDA [address] 2021-02-18 2021-02-18 Outpatient SADHU, [facility] [id number] [place] 00:00:00 00:00:00 SURJIT 376 [facility] 2021-02-16 2021-02-16 Outpatient WELLER, [facility] [id number] [place] 00:00:00 00:00:00 MAYA [address] 2021-02-09 2021-02-09 Outpatient [facility] [id number] [place] 00:00:00 00:00:[address] 2021-01-27 2021-01-27 Outpatient ENRIKE HANSEN [facility] [id number] [place] 00:00:00 00:00:[address] 2021-01-22 2021-01-22 Outpatient ENRIKE HANSEN [facility] [id number] [place] 00:00:00 00:00:[address] 2021-01-21 2021-01-21 Outpatient RICKEY CERVANTESIC [facility] [id number] [place] 00:00:00 00:00:[address] 2021-01-21 2021-01-21 Outpatient [facility] [id number] [place] 00:00:00 00:00:[address] 2021-01-21 2021-01-21 Outpatient LEENRIKE [facility] [id number] [place] 00:00:00 00:00:[address] 2021-01-20 2021-01-20 Outpatient ABDELLATIF, [facility] [id number] [place] 00:00:00 00:00:00 BERNARDA [address] 2021-01-19 2021-01-19 Outpatient WELLER, [facility] [id number] [place] 00:00:00 00:00:00 MAYA [address] 2021-01-19 2021-01-19 Outpatient SADHU, [facility] [id number] [place] 00:00:00 00:00:00 SURJIT [address] 2021-01-19 2021-01-19 Outpatient SADHU, [facility] [id number] [place] 00:00:00 00:00:00 SURJIT [address] 2020-12-24 2020-12-24 Outpatient SADHU, [facility] [id number] [place] 00:00:00 00:00:00 SURJIT [address] 2020-12-24 2020-12-24 Outpatient ABDELLATIF, [facility] [id number] [place] 00:00:00 00:00:00 BERNARDA [address] 2020-11-25 2020-11-25 Outpatient ABDELLATIF, [facility] [id number] [place] 00:00:00 00:00:00 BERNARDA [address] 2020-11-24 2020-11-24 Outpatient WELLER, [facility] [id number] [place] 00:00:00 00:00:00 MAYA [address] 2020-11-12 2020-11-12 Outpatient SADHU, [facility] [id number] [place] 00:00:00 00:00:00 SURJIT [address] 2020-11-12 2020-11-12 Outpatient [facility] [id number] [facility]00 [facility] 2020-11-10 2020-11-10 Outpatient WELLER, [facility] [id number] [place] 00:00:00 00:00:00 MAYA [address] 2020-10-28 2020-10-28 Outpatient ABDELLATIF, [facility] [id number] [place] 00:00:00 00:00:00 BERNARDA [address] 2020-10-27 2020-10-27 Outpatient ABDELLATIF, [facility] [id number] [place] 00:00:00 00:00:00 BERNARDA [address] 2020-10-27 2020-10-27 Outpatient WELLER, [facility] [id number] [place] 00:00:00 00:00:00 MAYA [address] 2020-10-14 2020-10-14 Outpatient ABDELLATIF, [facility] [id number] [place] 00:00:00 00:00:00 BERNARDA [address] 2020-10-13 2020-10-13 Outpatient WELLER, [facility] [id number] [place] 00:00:00 00:00:00 MAYA [address] 2020-10-06 2020-10-06 Outpatient [facility]MLC [facility] [id number] [facility] 2020-09-30 2020-09-30 Outpatient WELLER, [facility] [id number] [place] 00:00:00 00:00:00 MAYA [address] 2020-09-30 2020-09-30 Outpatient WELLER, [facility] [id number] [place] 00:00:00 00:00:00 MAYA [address] 2020-09-26 2020-09-26 Outpatient [facility]LMLC [facility] [id number] [facility] 2020-09-17 2020-09-24 Inpatient FAN, [facility] [id number] [place] 00:00:00 00:00:00 JINPING [address] 2020-08-30 2020-09-17 Inpatient FAN, [facility] [id number] [place] 00:00:00 00:00:00 JINPING [address] 2020-08-08 2020-08-08 Outpatient [facility]LMLC [facility] [id number] [facility] 2020-08-06 2020-08-06 Outpatient [facility]LMLC [facility] [id number] [facility] 2020-08-05 2020-08-05 Outpatient ABDELLATIF, [facility] [id number] [place] 00:00:00 00:00:00 BERNARDA [address] 2020-08-05 2020-08-05 Outpatient SEBASTIEN, [facility] [id number] [place] 00:00:00 00:00:00 AHMED [address] 2020-08-04 2020-08-04 Outpatient STLMLC [facility] [id number] [facility] 2020-07-07 2020-07-07 Outpatient ABDELLATIF, [facility] [id number] [place] 00:00:00 00:00:00 BERNARDA [address] 2020-06-02 2020-06-02 Outpatient STLMLC [facility] [id number] [facility] 2020-05-22 2020-05-22 Outpatient [facility]LMLC [facility] [id number] [facility] 2020-05-20 2020-05-20 Outpatient [facility] [id number] [address] [place] [address] 00:00:00 00:00:00 SURJIT [address] 2020-03-14 2020-03-14 [facility] [id number] [facility] 16:20:00 16:20:[address] Luke [facility] - Drive [facility] Out[facility] Clinics 2020-02-23 2020-02-23 Out[facility] [id number] 17:58:00 17:58:[address] Luke s - Drive [facility] Medicine Outpat[facility] ent Clinics 2020-02-18 2020-02-18 Out[facility] [id number] 08:20:00 08:20:[address] Luke s - Drive [facility] Medicine Outpati ent Clinics 2020-01-22 2020-01-22 [facility] [id number] [place] 00:00:00 00:00:00 MAYA [address] 2020-01-21 2020-01-21 [facility] [id number] 13:00:00 13:00:[address] Luke s - Drive [facility] Medicine l Medicine Outpati ent Clinics 2020-01-15 2020-01-15 [facility] [id number] [place] 00:00:00 00:00:00 BERNARDA [address] 2019-12-11 2019-12-11 [facility] [id number] [address] 16:09:00 16:09:00 t [facility] ent [facility] 2019-12-07 2019-12-07 [facility] [id number] 13:40:00 13:40:00 [facility] ent [facility] 2019-12-07 2019-12-07 [facility] [id number] 08:06:00 08:06:00 [facility] ent [facility] 2019-12-06 2019-12-06 Out[facility] [id number] 11:59:00 11:59:00 [employer] [facility] ent [facility] 2019-11-23 2019-11-25 [id number] [place] 00:00:00 00:00:00 YULISA [address] 2019-10-11 2019-10-11 [facility] [id number] 09:00:00 09:00:00 [employer] [facility] ent [facility] Results Test Description Test Time Test Comments Results Result Comments Source SARS-CoV-2 (COVID-19) RNA [Presence] in Respiratory sp ecimen by 2021-01-21 18:33:15 FROYLAN with probe detection Test Item Value Reference Range Interpretation Comme nts SARS-CoV-2 (COVID-19) RNA [Presence] in Respiratory Not detected No t-Detected specimen by FROYLAN with probe detection (test code = 61564-8) Whether patient is employed in a healthcare setting (test code = 29246-8) Whether the patient has symptoms related to condition of interest (test code = 66816-7) Patient was hospitalized because of this condition (test code = 09057-4) Whether the patient was admitted to intensive care unit (ICU) for condition of interest (test code = 31474-3) Whether patient resides in a congregate care setting (test code = 08761-6) SARS-CoV-2 (COVID-19) RNA [Presence] in Respiratory specimen by FROYLAN with probe [id number] 19:48:29 Test Item Value Reference Range Interpretation Comments SARS-CoV-2 (COVID-19) RNA Not detected Not-Detected [Presence] in Respiratory specimen by FROYLAN with probe detection (test code = 68998-3) SARS-CoV-2 (COVID-19) IgG+IgM Ab [Presence] in Serum or Plasma by Immunoassay 2020-09-01 06:21:00 Test Item Value Reference Range Interpretation Comments SARS-CoV-2 (COVID-19) IgG+IgM Ab Positive [Presence] in Serum or Plasma by Immunoassay (test code = 52529-1) SARS-CoV-2 (COVID-19) RNA [Presence] in Respiratory specimen by FROYLAN with probe [id number] 12:03:17 Test Item Value Reference Range Interpretation Comments SARS-CoV-2 (COVID-19) RNA [Presence] Detected Not-Detected in Respiratory specimen by FROYLAN with probe detection (test code = 65044-0) TISSUE [id number] 16:45:00 Test Item Value Reference Range Interpretation Comments LAB AP CPT CODE ([facility] (test code = 82670 2749) TACROLIMUS [id number] 09:09:00 Test Item Value Reference Range Interpretation Comments TACROLIMUS BLOOD ([facility] (test 6.8 ng/mL 10.0-20.0 L code = 657) POCT-GLUCOSE [id number] 07:33:00 Test Item Value Reference Range Interpretation Comments POC-GLUCOSE METER 138 mg/dL 70-110 H TESTED AT [facility] 6720 ([facility] (test code = [place] 1538) [address] BASIC METABOLIC [id number] 05:08:00 Test Item Value Reference Range Interpretation [...] PATIEN TS. CBC W/PLT COUNT & AUTO [id number] 04:51:00 Test Item Value Reference Range Interpretation [...] NEUTROPHILS ABSOLUTE COUNT 3.17 K/ L 1.80-8.00 ([facility] (test code = 670) LYMPHOCYTES ABSOLUTE COUNT 0.45 K/ L 1.48-4.50 L ([facility] (test code = 414) MONOCYTES ABSOLUTE COUNT (BEAKER) 0.50 K/ L 0.00-1.30 (test code = 415) EOSINOPHILS ABSOLUTE COUNT 0.02 K/ L 0.00-0.50 (AKER) (test code = 416) BASOPHILS ABSOLUTE COUNT (BEAKER) 0.00 K/ L 0.00-0.20 (test code = 417) 0.00POCT-GLUCOSE [id number] 01:09:00 Test Item Value Reference Range Interpretation Comments POC-GLUCOSE METER 97 mg/dL 70-110 TESTED AT [place] [address] ([facility] (test code = [facility] Kory [facility] [address] 1538) POCT-GLUCOSE [id number] 21:30:00 Test Item Value Reference Range Interpretation Comments POC-GLUCOSE METER 424 mg/dL 70-110 HH Notified R Bibiana PILLAI/TESTED ([facility] (test code = AT [address] 1538) [facility] 7703 0 POCT-GLUCOSE [id number] 17:04:00 Test Item Value Reference Range Interpretation Comments POC-GLUCOSE METER 198 mg/dL 70-110 H TESTED AT [place] [address] ([facility] (test code = [facility] 1538) [address] POCT-GLUCOSE [id number] 12:51:00 Test Item Value Reference Range Interpretation Comments POC-GLUCOSE METER 205 mg/dL 70-110 H TESTED AT [place] [address] ([facility] (test code = [facility] 1538) [address] TACROLIMUS [id number] 12:35:00 Test Item Value Reference Range Interpretation Comments TACROLIMUS BLOOD ([facility] (test 5.9 ng/mL 10.0-20.0 L code = 657) POCT-GLUCOSE [id number] 08:32:00 Test Item Value Reference Range Interpretation Comments POC-GLUCOSE METER 60 mg/dL 70-110 L TESTED AT [place] [address] ([facility] (test code = [facility] [address] 1538) POCT-GLUCOSE [id number] 21:41:00 Test Item Value Reference Range Interpretation Comments POC-GLUCOSE METER 202 mg/dL 70-110 H TESTED AT [place] [address] ([facility]) (test code = [place] [facility] 1538) [address] POCT-GLUCOSE [id number] 17:36:00 Test Item Value Reference Range Interpretation Comments POC-GLUCOSE METER 191 mg/dL 70-110 H TESTED AT [place] [address] ([facility]) (test code = [place] [facility] 1538) [address] POCT-GLUCOSE [id number] 11:01:00 Test Item Value Reference Range Interpretation Comments POC-GLUCOSE METER 232 mg/dL 70-110 H TESTED AT [place] [address] ([facility] (test code = [place] [facility] 1538) [address] TACROLIMUS [id number] 10:16:00 Test Item Value Reference Range Interpretation Comments TACROLIMUS BLOOD (BEAKER) (test 8.3 ng/mL 10.0-20.0 L code = 657) POCT-GLUCOSE [id number] 08:16:00 Test Item Value Reference Range Interpretation Comments POC-GLUCOSE METER 366 mg/dL 70-110 H TESTED AT [place] [address] ([facility]) (test code = [facility] Kory [facility] 1538) [address] BASIC METABOLIC [id number] 06:57:00 Test Item Value Reference Range Interpretation [...] APPLICABLE FOR DIALYSIS PATIEN TS. HEMOGLOBIN AND [id number] 06:40:00 Test Item Value Reference Range Interpretation Comments HEMOGLOBIN (BEAKER) (test code = 11.4 GM/DL 12.0-15.0 L 410) HEMATOCRIT (BEAKER) (test code = 36.1 % 36.0-45.0 411) POCT-GLUCOSE [id number] 23:30:00 Test Item Value Reference Range Interpretation Comments POC-GLUCOSE METER 274 mg/dL 70-110 H TESTED AT [facility] 6720 (BEAKER) (test code = [place] 1538) [address] BASIC METABOLIC [id number] 18:49:00 Test Item Value Reference Range Interpretation [...] APPLICABLE FOR DIALYSIS PATIEN TS. HEMOGLOBIN AND [id number] 18:35:00 Test Item Value Reference Range Interpretation Comments HEMOGLOBIN (BEAKER) (test code = 11.5 GM/DL 12.0-15.0 L 410) HEMATOCRIT (BEAKER) (test code = 35.6 % 36.0-45.0 L 411) BASIC METABOLIC [id number] 12:08:00 Test Item Value Reference Range Interpretation [...] 0-0 (BEAKER) (test code = 413) 0.00POTASSIUM-STAT [id number] 11:43:00 Test Item Value Reference Range Interpretation Comments POTASSIUM (BEAKER) (test code = 4.3 meq/L 3.6-5.5 379) POCT-GLUCOSE [id number] 11:34:00 Test Item Value Reference Range Interpretation Comments POC-GLUCOSE METER 82 mg/dL 70-110 TESTED AT [facility] 6720 (BEAKER) (test code = [place] [address] 1538) URINE [id number] 11:19:00 Test Item Value Reference Range Interpretation Comments CULTURE (BEAKER) (test 20-29,000 col/mL skin code = 1095) tea URINALYSIS W/ [id number] 15:16:00 Test Item Value Reference Range Interpretation [...] = 2799) CBC W/PLT COUNT & AUTO [id number] 14:56:00 Test Item Value Reference Range Interpretation [...] 0.00-0.20 (test code = 417) 0.00BASI METABOLIC [id number] 14:55:00 Test Item Value Reference Range Interpretation [...] S NOT APPLICABLE FOR DIALYSIS PATIISAIAH TS. [id number] 14:51:00 Test Item Value Reference Range Interpretation Comments PARTIAL THROMBOPLASTIN TIME 30.7 seconds 22.5-36.0 (BEAKER) (test code = 760) PROTHROMBIN TIME/[id number] 14:50:00 Test Item Value Reference Range Interpretation [...]
[2021-08-06] MEDS ORDERED: GLUCAGON 1 MG/VIAL IM PRN (17:26)
[2021-08-06] MEDS ORDERED: D50W 25 GM/50 ML SYRINGE IV PRN (17:26)
--- NOTE | 2021-08-06 17:46 | P.HP ---
Certification for Inpatient Patient admitted to: Inpatient With expected LOS: >2 Midnights Patient will require the following post-hospital care: None Practitioner: I am a practitioner with admitting privileges, knowledge of patient current condition, hospital course, and medical plan of care. Services: Services provided to patient in accordance with Admission requirements found in Title 42 Section 412.3 of the Code of Federal Regulations Patient History Date of Service: 08/06/21 Primary Care Provider: Rudi Reason for admission: Acute on chronic renal failure. History of Present Illness: Patient is an office patient of Mrs. Grijalva. She has a history of stage 4 ckd. Which is in a transplanted kidney. She has obstructive uropathy with a chronic shen cath. Patient has been having some trouble with very labile sugars. The patient came to the office yesterday. Was found to be very lethargic and had swelling of the legs and face. She was sent to the ER. Was found to have a creatine of 3.7 Which her last creatine was approx 2.3 in Jun. She also had an elevated sugar of 455. Was sent home from the ER. The patient was called this morning from my office. Sent back for direct admition. have discussed the patient with Dr. Mancera as well. Allergies No Known Drug Allergies Allergy (Verified 08/01/20 23:30) Unknown Home Medications: Amlodipine [Norvasc*] 10 mg PO DAILY 07/04/19 Calcium Carbonate [Tums Regular*] 500 mg PO TID 07/04/19 Cholecalciferol (Vitamin D3) [Vitamin D3] 2,000 unit PO DAILY 07/04/19 Gabapentin [Neurontin*] 100 mg PO TID 07/04/19 Magnesium Chloride [Slow-Mag*] 64 mg PO DAILY 07/04/19 Omeprazole [Prilosec] 40 mg PO DAILY 07/04/19 Simvastatin 20 mg PO BEDTIME 07/04/19 Tacrolimus [Prograf] 2 cap PO BID 07/04/19 predniSONE [Prednisone*] 5 mg PO DAILY 07/04/19 Albuterol Inhaler [Ventolin Inhaler*] 2 puff IH Q6H PRN #1 hfa.aer.ad 08/03/20 Ascorbic Acid [Vitamin C] 500 mg PO DAILY 06/23/21 Calcitriol [Rocaltrol] 1 mcg PO DAILY 06/23/21 Furosemide [Lasix] 20 mg PO BID 06/23/21 Levothyroxine Sodium 50 mcg PO DAILY 06/23/21 Spironolactone 25 mg PO DAILY 06/23/21 Tamsulosin HCl 0.4 mg PO DAILY 06/23/21 Nitrofurantoin Macrocrystal [Macrodantin] 100 mg PO TID 5 Days #15 capsule 06/25/21 - Past Medical/Surgical History Diabetic: Yes -: Kidney transplant -: chronic venous hypertension with ulceraton -: diabetic ulcer toe -: gerd -: hyperlipidemia -: neuropathy chronic kidney disease -: kidney transplant -: -: Toe Amputation -: Fistula Placement -: Chronic venous hypertension with ulceration - Family History Mother -: Stroke, Kidney disease - Social History Alcohol use: No CD- Drugs: No Caffeine use: No Review of Systems General: Weakness Cardiovascular: Edema (2+) Physical Examination - Physical Exam General: Alert, Oriented x3, Mild distress HEENT: Atraumatic, PERRLA, Mucous membr. moist/pink, EOMI, Sclerae nonicteric Neck: Supple, 2+ carotid pulse no bruit, No LAD, Without JVD or thyroid abnormality Respiratory: Clear to auscultation bilaterally, Normal air movement Cardiovascular: Regular rate/rhythm, Normal S1 S2, Edema (2+ in the legs. Swelling of the face ) Gastrointestinal: Normal bowel sounds, No tenderness Musculoskeletal: No tenderness Integumentary: No rashes Neurological: Normal gait, Normal speech, Normal strength at 5/5 x4 extr, Normal tone, Normal affect Lymphatics: No axilla or inguinal lymphadenopathy Assessment and Plan - Problems (Diagnosis) (1) CKD stage 5 due to type 2 diabetes mellitus Current Visit: No Status: Chronic Plan: will start her on fluids and insulin. have discussed the patient with Dr. Mancera, who will see the patient in the morning. Will hopefully be able to perserve the kidney. Continue the intermediate shen. Check a U/A on the patient. Will check a tacrolimus level. Continue the patient's home dosage. Will also order a kidney ultrasound (2) Hypothyroidism Current Visit: No Status: Acute Plan: will check a tsh. Restart her thyroid medications. Qualifiers: Hypothyroidism type: unspecified Qualified Code(s): E03.9 - Hypothyroidism, unspecified (3) Diabetes Onset Date: 10/26/17 Current Visit: No Status: Chronic Plan: continue insulin. She is on tresiba 20units. she was on [facility] fast acting insulin. Which was causing hypoglycemia. Will increase her dosage to 25 units. use a mild sliding scale on the patient. Will also give fluids to the patient. Qualifiers: Diabetes mellitus type: type 2 Diabetes mellitus intermediate insulin use: with oysterman use Diabetes mellitus complication detail: with chronic kidney disease Chronic kidney disease stage: stage 4 (severe) (4) Hypertension Onset Date: 10/26/17 Current Visit: No Status: Chronic Plan: cover her home meds. Will monitor and change as needed Qualifiers: Hypertension type: primary hypertension Qualified Code(s): I10 - Essential (primary) hypertension (5) Hyperlipidemia Onset Date: 10/26/17 Current Visit: No Status: Chronic Plan: will restart her home meds. Qualifiers: Hyperlipidemia type: moderate mixed hyperlipidemia not requiring statin therapy Qualified Code(s): E78.2 - Mixed hyperlipidemia Discharge Plan: Home Plan to discharge in: Greater than 2 days - Advance Directives Does patient have a Living Will: No Does patient have a Durable POA for Healthcare: No - Code Status/Comfort Care Code Status Assessed: No Code Status: Full Code Physician Review: Patient Assessed, Agree with Above Assessment and Plan Critical Care: No Time Spent Managing Pts Care (In Minutes): 90
[2021-08-06 19:42] VITALS: BMI 22.3
[2021-08-06] MEDS: ENOXAPARIN 30 MG/0.3 ML SQ SCH (20:34)
[2021-08-06] MEDS: TACROLIMUS 0.5 MG PO SCH (20:35)
[2021-08-06] MEDS: GABAPENTIN 100 MG CAP PO SCH (20:35)
[2021-08-06] MEDS: INSULIN -REGULAR HUMAN 50 UNIT/0.5 ML ML SQ SCH (21:26)
[2021-08-06] MEDS: NA CHLORIDE 0.9% 1,000 ML IV SCH (21:27)
[2021-08-06 22:16] LABS: Urine Appearance CLEAR (Clear); Urine Bilirubin NEGATIVE (Negative); Urine Blood 1+ (Negative); Urine Color YELLOW (Yellow); Urine Glucose 1+ (Negative); Urine Protein 2+ (Negative); Urine Urobilinogen 0.2 mg/dL (0.2-1.0); Urine pH 6.5 (5.0-7.0)
[2021-08-06 22:20] LABS: Urine Microscopic Reflex ORDER UMIC
[2021-08-06 23:14] LABS: Urine Bacteria >50 /HPF (<20)
--- NOTE | 2021-08-07 05:59 | P.CNS ---
Date of Consult: 08/07/21 Reason for Consult: Renal failure Requesting Physician: Fito Bernal Primary Care Provider: Rudi Chief Complaint: Acute on chronic renal failure. History of Present Illness: 65 year-old Luxembourgish-speaking woman w/ PMHx of ESRD presumed to be 2/2 DM/Htn s/p KTx in 2010 at [facility] c/b chronic allograft nephropathy, baseline SCr 1.8-2.3 (GFR low 20s) in Jun 2021, on maintenance immunosuppression via t acrolimus 0.5 mg by mouth every 12 hours and prednisone 5 g by mouth daily, obstructive uropathy on chronic shen, hypertension, hyperlipidemia, DM, PVD, and peripheral neuropathy, who p/w lethargy and swelling of her legs and face. She was noted to have hyperglycemia with blood glucose 455, as well as UTI, & JOE with serum creatinine on admission at 3.7., admitted for further evaluation and management. Allergies No Known Drug Allergies Allergy (Verified 08/01/20 23:30) Unknown Home Medications: Amlodipine [Norvasc*] 10 mg PO DAILY 07/04/19 Calcium Carbonate [Tums Regular*] 500 mg PO QID 07/04/19 Gabapentin [Neurontin*] 100 mg PO TID 07/04/19 Magnesium Chloride [Slow-Mag*] 64 mg PO DAILY 07/04/19 Omeprazole [Prilosec] 40 mg PO DAILY 07/04/19 Simvastatin 20 mg PO BEDTIME 07/04/19 Tacrolimus [Prograf] 1 cap PO BID 07/04/19 predniSONE [Prednisone*] 5 mg PO DAILY 07/04/19 Calcitriol [Rocaltrol] 1 mcg PO DAILY 06/23/21 Furosemide [Lasix] 20 mg PO BID 06/23/21 Levothyroxine Sodium 25 mcg PO DAILY 06/23/21 Spironolactone 25 mg PO DAILY 06/23/21 Tamsulosin HCl 0.4 mg PO DAILY 06/23/21 Insulin Aspart [Novolog Flexpen] 3 unit SQ SEECOM 08/06/21 Insulin NPH Human [Novolin N (Humulin N)*] 10 unit SQ SEECOM 08/06/21 Liraglutide [Victoza 2-Tavo] 1.8 mg SQ BREAKFAST 08/06/21 Megestrol [Megace*] 40 mg PO DAILY 08/06/21 Promethazine Tab [Phenergan*] 25 mg PO Q8HR PRN 08/06/21 - Past Medical/Surgical History Diabetic: Yes -: Kidney transplant -: chronic venous hypertension with ulceraton -: diabetic ulcer toe -: gerd -: hyperlipidemia -: neuropathy chronic kidney disease -: kidney transplant -: -: Toe Amputation -: Fistula Placement -: Chronic venous hypertension with ulceration - Family History Mother Medical History: Stroke, Kidney disease - Social History Smoking Status: Unknown if ever smoked Alcohol use: No CD- Drugs: No Caffeine use: No Place of Residence: Home Review of Systems General: Weakness, Malaise Eyes: Unremarkable ENT: Unremarkable Respiratory: Unremarkable Cardiovascular: Edema Gastrointestinal: Unremarkable Genitourinary: Unremarkable Musculoskeletal: Pedal edema Integumentary: Unremarkable Neurological: Unremarkable Lymphatics: Unremarkable Physical Examination Temp Pulse Resp BP Pulse Ox 97.4 F 62 17 164/67 H 95 08/06/21 23:35 08/06/21 23:35 08/06/21 23:35 08/06/21 23:35 08/06/21 23:35 General: Alert, In no apparent distress HEENT: Atraumatic, Normocephalic Neck: Supple, JVD not distended Respiratory: Other (symmetric chest expansion) Cardiovascular: Other (trace bipedal edema) Gastrointestinal: Soft and benign, Non-distended, No guarding Musculoskeletal: No clubbing Integumentary: No warmth Neurological: Normal speech, Normal tone Lymphatics: No axilla or inguinal lymphadenopathy Urinary: Shen catheter, Other (no bladder distention) External genitalia: Deferred Rectal: Deferred Conclusions/Impression: # Allograft JOE on CKD, 2/2 prerenal state/ATN/hyperglycemia-induced osmotic diuresis + allograft UTI Hx of ESRD presumed to be 2/2 DM/Htn s/p KTx in 2010 at [facility] c/b chronic allograft nephropathy, baseline SCr 1.8-2.3 (GFR low 20s) in Jun 2021 Hx of chronic urinary retention on chronic shen Urinalysis w/ proteinuria & pyuria KTx US unremarkable Urine chem non-prerenal +Subnephrotic proteinuria 2.5g F/u CPK, iPTH, BNP Has shen. Recommend to dc shen & start CIC TID-QID, as recurrent UTI frequency is much less w/ CIC. Cont IV fluids liberal by mouth fluid intake Monitor renal panel # IS Home IS. 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 Avoid any K-sparing medication as hyperkalemia risk is high, unless her GFR improves to above 25 consistently. # DM2 Mngt per primary team
[2021-08-07 06:26] LABS: Absolute Lymphocytes (CBC) 0.8 K/uL (0.7-4.9); Hematocrit 27.7 % (36.0-45.0); Lymphocytes % 20.6 % (15.3-44.8); MPV 7.8 fL (7.6-11.3)
[2021-08-07 06:42] LABS: Albumin 2.9 g/dL (3.4-5.0); Bilirubin Total 0.2 mg/dL (0.2-1.0); Protein, Total 6.8 g/dL (6.4-8.2); Thyroid Stimulating Hormone 2.9 uIU/mL (0.360-3.740)
[2021-08-07] MEDS: NA CHLORIDE 0.9% 1,000 ML IV SCH ×3 (07:20→20:57)
[2021-08-07] MEDS: INSULIN -REGULAR HUMAN 50 UNIT/0.5 ML ML SQ SCH ×4 (07:30→20:45)
--- NOTE | 2021-08-07 07:51 | P.PN ---
Subjective Date of Service: 08/07/21 Primary Care Provider: Rudi Chief Complaint: Acute on chronic renal failure. Subjective: Improving (sugars and creatine are improving. The patient has a uti.) Review of Systems 10-point ROS is otherwise unremarkable Physical Examination - Vital Signs Temperature: 97.4 F Blood Pressure: 164/67 Pulse: 62 Respirations: 17 Pulse Ox (%): 95 - Physical Exam General: Alert, In no apparent distress HEENT: Atraumatic Neck: Supple Respiratory: Clear to auscultation bilaterally, Normal air movement Cardiovascular: No edema, Normal pulses, Regular rate/rhythm Gastrointestinal: Normal bowel sounds Musculoskeletal: No clubbing, No swelling - Studies Laboratory Data (last 24 hrs) 08/07/21 05:58: Sodium 142, Potassium 4.0, BUN 64 H, Creatinine 3.37 H, Glucose 129 H, Total Bilirubin 0.2, AST 9 L, ALT 15, Alkaline Phosphatase 71 08/07/21 05:58: WBC 3.70 L D, Hgb 9.0 L, Hct 27.7 L, Plt Count 252 Assessment & Plan - Problems (Diagnosis) (1) CKD stage 5 due to type 2 diabetes mellitus Current Visit: No Status: Chronic Plan: will start her on fluids and insulin. have discussed the patient with Dr. Mancera, who will see the patient in the morning. Will hopefully be able to perserve the kidney. Continue the long wall mining machine tender shen. Check a U/A on the patient. Will check a tacrolimus level. Continue the patient's home dosage. Will also order a kidney ultrasound 08/07/21 Improved sugars. Will continue new dosage of insulin. consider a cgi as an out patient (2) Hypothyroidism Current Visit: No Status: Acute Plan: will check a tsh. Restart her thyroid medications. Qualifiers: Hypothyroidism type: unspecified Qualified Code(s): E03.9 - Hypothyroidism, unspecified (3) Diabetes Onset Date: 10/26/17 Current Visit: No Status: Chronic Plan: continue insulin. She is on tresiba 20units. she was on [facility] fast acting insulin. Which was causing hypoglycemia. Will increase her dosage to 25 units. use a mild sliding scale on the patient. Will also give fluids to the pa tient. Qualifiers: Diabetes mellitus type: type 2 Diabetes mellitus senior living insulin use: with long wall mining machine tender use Diabetes mellitus complication detail: with chronic kidney disease Chronic kidney disease stage: stage 4 (severe) (4) Hypertension Onset Date: 10/26/17 Current Visit: No Status: Chronic Plan: cover her home meds. Will monitor and change as needed Qualifiers: Hypertension type: primary hypertension Qualified Code(s): I10 - Essential (primary) hypertension (5) Hyperlipidemia Onset Date: 10/26/17 Current Visit: No Status: Chronic Plan: will restart her home meds. Qualifiers: Hyperlipidemia type: moderate mixed hyperlipidemia not requiring statin therapy Qualified Code(s): E78.2 - Mixed hyperlipidemia Discharge Plan: Home Plan to discharge in: 48 Hours - Code Status/Comfort Care Code Status Assessed: No Physician Review: Patient Assessed, Agree with Above Assessment and Plan Time Spent Managing Pts Care (In Minutes): 25
[2021-08-07] MEDS: LEVOTHYROXINE SOD 0.05 MG TABLET PO SCH (08:30)
--- NOTE | 2021-08-07 08:34 | RAD REPORT ---
EXAM DESCRIPTION: US - Renal Ultrasound-Complete - 08/07/2021 12:01 am CLINICAL HISTORY: acute on chronic renal failure COMPARISON: Renal Ultrasound-Complete dated 06/22/2021; Stone Protocol dated 06/22/2021 FINDINGS: The right pelvic transplant kidney measures 10.6 x 5.2 x 4.9 cm. The left kidney is not c learly identifiable, probably obscured by bowel and body habitus affects. The June 2021 CT study showed absent right tulalip kidney with atrophic left kidney. No hydronephrosis or suspicious mass ilia dent at that time. The right pelvic transplant kidney shows normal cortical thickness and echogenicity. Doppler evaluati on shows unremarkable blood flow pattern in the main renal artery and the intraparenchymal vessels. N o hydronephrosis or suspicious renal mass. Trace amount of free fluid is seen at the right renal pelv is. Urinary bladder is fully contracted around a Collins catheter. IMPRESSION: No hydronephrosis of the right pelvic transplant kidney. No suspicious findings noted. Nonvisualization of the left kidney known to be atrophic. No other significant findings.
[2021-08-07] MEDS: TACROLIMUS 0.5 MG PO SCH ×2 (09:00→20:45)
[2021-08-07] MEDS: INSULIN GLARGINE 100 UNIT/ML SQ SCH (09:00)
[2021-08-07] MEDS ORDERED: CEFTRIAXONE 1000 MG/VIAL ONE (09:36)
[2021-08-07] MEDS ORDERED: NA CHLORIDE 0.9% 50 ML ONE (09:47)
[2021-08-07] MEDS: CEFTRIAXONE 1,000 MG in NA CHLORIDE 0.9% 50 ML IVPB SCH (09:57)
[2021-08-07] MEDS: GABAPENTIN 100 MG CAP PO SCH ×3 (09:57→20:45)
[2021-08-07 16:18] LABS: UR PROTEIN 123.6 mg/dL (<11.9); Urine Protein/Creatinine Ratio 2.52 ratio (<0.15)
[2021-08-07] MEDS: ENOXAPARIN 30 MG/0.3 ML SQ SCH (17:45)
[2021-08-07] MEDS: ATORVASTATIN 10 MG TAB PO SCH (20:45)
[2021-08-07] MEDS: CALCIUM CARBONATE CHEW 500MG TAB PO SCH (20:46)
[2021-08-08 04:22] LABS: Absolute Lymphocytes (CBC) 0.9 K/uL (0.7-4.9); Hematocrit 28.7 % (36.0-45.0); Lymphocytes % 23.9 % (15.3-44.8); MPV 7.9 fL (7.6-11.3); RBC Red Blood Cell Count 3.29 M/uL (3.86-4.86)
[2021-08-08 04:38] LABS: Albumin 2.8 g/dL (3.4-5.0); Bilirubin Total 0.2 mg/dL (0.2-1.0); Magnesium 2.3 mg/dL (1.8-2.4); Phosphorus 3.4 mg/dL (2.5-4.9); Potassium 4.2 mmol/L (3.5-5.1); Protein, Total 6.8 g/dL (6.4-8.2)
[2021-08-08] MEDS: INSULIN -REGULAR HUMAN 50 UNIT/0.5 ML ML SQ SCH ×4 (07:30→20:47)
[2021-08-08] MEDS: LEVOTHYROXINE SOD 0.05 MG TABLET PO SCH (08:30)
[2021-08-08] MEDS: PANTOPRAZOLE 40MG TABLET PO SCH (08:30)
[2021-08-08] MEDS ORDERED: CEFTRIAXONE 1000 MG/VIAL ONE (08:48)
[2021-08-08] MEDS ORDERED: predniSONE 5 MG TAB PO SCH (09:00)
[2021-08-08] MEDS ORDERED: CALCITROL 0.25 MCG CAP PO SCH (09:00)
[2021-08-08] MEDS ORDERED: SPIRONOLACTONE 25 MG TABLET PO SCH (09:00)
[2021-08-08] MEDS: INSULIN GLARGINE 100 UNIT/ML SQ SCH (09:00)
[2021-08-08] MEDS: CEFTRIAXONE 1,000 MG in NA CHLORIDE 0.9% 50 ML IVPB SCH (09:00)
[2021-08-08] MEDS: CALCIUM CARBONATE CHEW 500MG TAB PO SCH (09:56)
[2021-08-08] MEDS: GABAPENTIN 100 MG CAP PO SCH ×3 (09:57→20:46)
[2021-08-08] MEDS: MAGNESIUM CHLORIDE 64 MG TAB PO SCH (09:57)
[2021-08-08] MEDS: predniSONE 5 MG TAB PO SCH (09:57)
[2021-08-08] MEDS: AMLODIPINE 5 MG TAB PO SCH (09:57)
[2021-08-08] MEDS: TACROLIMUS 0.5 MG PO SCH ×2 (09:57→20:46)
[2021-08-08] MEDS ORDERED: NA CHLORIDE 0.9% 50 ML ONE (10:02)
--- NOTE | 2021-08-08 10:58 | P.PN ---
Subjective Date of Service: 08/08/21 Primary Care Provider: Rudi Chief Complaint: Acute on chronic renal failure. Subjective: Improving (slight improvement of her creatine) Review of Systems 10-point ROS is otherwise unremarkable Physical Examination - Vital Signs Temperature: 97.0 F Blood Pressure: 143/61 Pulse: 53 Respirations: 16 Pulse Ox (%): 99 - Physical Exam General: Alert, In no apparent distress HEENT: Atraumatic, PERRLA, EOMI Neck: Supple, JVD not distended Respiratory: Clear to auscultation bilaterally, Normal air movement Cardiovascular: Regular rate/rhythm, Normal S1 S2 Gastrointestinal: Normal bowel sounds, No tenderness Musculoskeletal: No tenderness Integumentary: No rashes Neurological: Normal speech, Normal tone, Normal affect Lymphatics: No axilla or inguinal lymphadenopathy - Studies Laboratory Data (last 24 hrs) 08/08/21 04:00: Phosphorus Cancelled, Magnesium Cancelled 08/08/21 03:59: Sodium 141, Potassium 4.2, BUN 56 H, Creatinine 3.01 H, Glucose 113 H, Phosphorus 3.4, Magnesium 2.3 D, Total Bilirubin 0.2, AST 9 L, ALT 14, Alkaline Phosphatase 73 08/08/21 03:59: WBC 3.70 L, Hgb 9.2 L, Hct 28.7 L, Plt Count 252 Assessment & Plan - Problems (Diagnosis) (1) CKD stage 5 due to type 2 diabetes mellitus Current Visit: No Status: Chronic Plan: will start her on fluids and insulin. have discussed the patient with Dr. Mancera, who will see the patient in the morning. Will hopefully be able to perserve the kidney. Continue the penitentiary shen. Check a U/A on the patient. Will check a tacrolimus level. Continue the patient's home dosage. Will also order a kidney ultrasound 08/08 Patient has slight improvement. will continue fluids. (2) Hypothyroidism Current Visit: No Status: Acute Plan: will check a tsh. Restart her thyroid medications. Qualifiers: Hypothyroidism type: unspecified Qualified Code(s): E03.9 - Hypothyroidism, unspecified (3) Diabetes Onset Date: 10/26/17 Current Visit: No Status: Chronic Plan: continue insulin. She is on tresiba 20units. she was on [facility] fast acting insulin. Which was causing hypoglycemia. Will increase her dosage to 25 units. use a mild sliding scale on the patient. Will also give fluids to the patient. Qualifiers: Diabetes mellitus type: type 2 Diabetes mellitus buttermaker continuous churn insulin use: with buttermaker continuous churn use Diabetes mellitus complication detail: with chronic kidney disease Chronic kidney disease stage: stage 4 (severe) (4) Hypertension Onset Date: 10/26/17 Current Visit: No Status: Chronic Plan: cover her home meds. Will monitor and change as needed Qualifiers: Hypertension type: primary hypertension Qualified Code(s): I10 - Essential (primary) hypertension (5) Hyperlipidemia Onset Date: 10/26/17 Current Visit: No Status: Chronic Plan: will restart her home meds. Qualifiers: Hyperlipidemia type: moderate mixed hyperlipidemia not requiring statin therapy Qualified Code(s): E78.2 - Mixed hyperlipidemia Discharge Plan: Home - Code Status/Comfort Care Code Status Assessed: No Physician Review: Patient Assessed, Agree with Above Assessment and Plan Critical Care: No Time Spent Managing Pts Care (In Minutes): 20
--- NOTE | 2021-08-08 15:12 | PN ---
Date of Progress Note: 08/08/2021 Subjective: The patient was admitted with acute kidney injury, hyperglycemia, on kidney transplant. The patient was started on aggressive hydration, kidney function gradually started trending down, to continue on her immunosuppressive medication. Physical Examination: Vital Signs: Blood pressure 143/61, pulse of 53, afebrile. The patient had good urine output of 2700, still negative balance. Chest: Clear to auscultation. Heart: S1, S2. Regular. Abdomen: Soft, nontender. Extremities: Trace edema. Neurological: Alert, oriented x3. No focal. Laboratory Data: WBC 3.7, H and H 9.2/28.7. Sodium 141, potassium 4.2, bicarb 27, BUN 56, creatinine 3, GFR of 16, calcium down to 10.6, phosphorus 3.4, magnesium 2.3, albumin 2.8. Corrected calcium is 11.4, PTH less than 6. Vitamin D 28. Current Medications: The patient on include: 1. Ceftriaxone. 2. Calcium carbonate. 3. Amlodipine. 4. Atorvastatin. 5. Gabapentin. 6. Pantoprazole. 7. Levothyroxine. 8. Prednisone. 9. Insulin. 10. IV fluid of normal saline at 75 per hour. 11. Magnesium. 12. Prograf. 13. Calcitriol. Assessment And Plan: 1. Acute kidney injury on advanced chronic kidney disease, end-stage renal disease, status post allograft transplant. Acute kidney injury multifactorial secondary to prerenal, dehydration secondary to glucose diuresis/calcium diuresis. Blood sugar has been controlled. Currently, calcium is still elevated. 2. I am going to go ahead and discontinue calcium carbonate, discontinue calcitriol. Increase IV fluid to 100 per hour and we will continue to monitor the patient. 3. Continue immunosuppressive medication. 4. Chronic kidney disease stage 4/end-stage renal disease, status post kidney transplant allograft with acute kidney injury as above. Continue Prograf. 5. Hypercalcemia. Appropriate suppression of PTH, discontinue calcitriol, discontinue calcium carbonate and I going to monitor the patient closely. 6. Hypertension, controlled, optimal keep avoiding any ELIZABETH inhibitor and ARB given the acute kidney injury. 7. Diabetes, uncontrolled, as by primary. time spend exam the patient face to face , reviewing the data lab and radiology , placing order , discussing the case with the meat service team member including nursing staff and discussing with the hospitalist 45 min MA/HERBL Voice ID: [id number] Report ID: [id number] SARAY
[2021-08-08] MEDS: NA CHLORIDE 0.9% 1,000 ML IV SCH (16:43)
[2021-08-08] MEDS: ENOXAPARIN 30 MG/0.3 ML SQ SCH (17:06)
[2021-08-08] MEDS: ATORVASTATIN 10 MG TAB PO SCH (20:47)
[2021-08-09] MEDS: NA CHLORIDE 0.9% 1,000 ML IV SCH ×3 (02:46→23:47)
[2021-08-09 06:04] LABS: Absolute Lymphocytes (CBC) 1.3 K/uL (0.7-4.9); Hematocrit 30.4 % (36.0-45.0); Lymphocytes % 31.2 % (15.3-44.8); MPV 7.4 fL (7.6-11.3)
[2021-08-09 06:32] LABS: Albumin 2.6 g/dL (3.4-5.0); Bilirubin Total 0.2 mg/dL (0.2-1.0); Potassium 3.8 mmol/L (3.5-5.1); Protein, Total 6.3 g/dL (6.4-8.2)
[2021-08-09] MEDS ORDERED: AMPICILLIN/SULBACT 1.5GM VIAL IVPB SCH (07:00)
[2021-08-09] MEDS: INSULIN -REGULAR HUMAN 50 UNIT/0.5 ML ML SQ SCH ×4 (07:30→20:07)
[2021-08-09] MEDS: PANTOPRAZOLE 40MG TABLET PO SCH (07:47)
[2021-08-09] MEDS: LEVOTHYROXINE SOD 0.05 MG TABLET PO SCH (07:48)
[2021-08-09] MEDS: AMLODIPINE 5 MG TAB PO SCH (08:47)
[2021-08-09] MEDS: MAGNESIUM CHLORIDE 64 MG TAB PO SCH (08:48)
[2021-08-09] MEDS: INSULIN GLARGINE 100 UNIT/ML SQ SCH (08:48)
[2021-08-09] MEDS: GABAPENTIN 100 MG CAP PO SCH ×3 (08:48→20:07)
[2021-08-09] MEDS: predniSONE 5 MG TAB PO SCH (08:48)
[2021-08-09] MEDS: TACROLIMUS 0.5 MG PO SCH ×2 (08:50→20:07)
[2021-08-09] MEDS: Meropenem 1 GM/100 ML BAG IV SCH ×2 (09:11→20:05)
--- NOTE | 2021-08-09 10:29 | P.PN ---
Subjective Date of Service: 08/09/21 Primary Care Provider: Rudi Chief Complaint: Acute on chronic renal failure. Subjective: Improving (creatine improved from 3 to 2.5) Review of Systems 10-point ROS is otherwise unremarkable Physical Examination - Vital Signs Temperature: 97.9 F Blood Pressure: 147/63 Pulse: 54 Respirations: 16 Pulse Ox (%): 97 - Physical Exam General: Alert, In no apparent distress HEENT: Atraumatic, PERRLA, EOMI Neck: Supple, JVD not distended Respiratory: Clear to auscultation bilaterally, Normal air movement Cardiovascular: Regular rate/rhythm, Normal S1 S2 Gastrointestinal: Normal bowel sounds, No tenderness Musculoskeletal: No tenderness Integumentary: No rashes Neurological: Normal speech, Normal tone, Normal affect Lymphatics: No axilla or inguinal lymphadenopathy - Studies Laboratory Data (last 24 hrs) 08/09/21 05:45: Sodium 141, Potassium 3.8, BUN 48 H, Creatinine 2.55 H, Glucose 48 L*, Total Bilirubin 0.2, AST 10 L, ALT 13, Alkaline Phosphatase 62 08/09/21 05:15: WBC 4.30 D, Hgb 9.8 L, Hct 30.4 L, Plt Count 248 Microbiology Data (last 24 hrs): 08/06/21 20:46 Clean Catch Urine [place] Count - Final >100,000 CFU/ML. 08/06/21 20:46 Clean Catch Urine - Final Escherichia Coli Esbl Gram Neg Lex Assessment & Plan - Problems (Diagnosis) (1) UTI (urinary tract infection) due to Enterococcus Current Visit: Yes Status: Acute Plan: Patient was started on ceftriaxone a few days ago. She has a MDR E Coli. Will start her on meropenem and augmentin which she is sensitive to. Will be able to discharge her after on meropenem. Hopefully the synergistic effect of the two will keep her from needing a full course of iv antibiotics. (2) CKD stage 5 due to type 2 diabetes mellitus Current Visit: No Status: Chronic Plan: will start her on fluids and insulin. have discussed the patient with Dr. Mancera, who will see the patient in the morning. Will hopefully be able to perserve the kidney. Continue the terminal clerk shen. Check a U/A on the patient. Will check a tacrolimus level. Continue the patient's home dosage. Will also order a kidney ultrasound 08/09 Improving. Continue fluids. (3) Hypothyroidism Current Visit: No Status: Acute Plan: will check a tsh. Restart her thyroid medications. Qualifiers: Hypothyroidism type: unspecified Qualified Code(s): E03.9 - Hypothyroidism, unspecified (4) Diabetes Onset Date: 10/26/17 Current Visit: No Status: Chronic Plan: continue insulin. She is on tresiba 20units. she was on [facility] fast acting insulin. Which was causing hypoglycemia. Will increase her dosage to 25 units. use a mild sliding scale on the patient. Will also give fluids to the patient. Qualifiers: Diabetes mellitus type: type 2 Diabetes mellitus terminal clerk insulin use: with care home use Diabetes mellitus complication detail: with chronic kidney disease Chronic kidney disease stage: stage 4 (severe) (5) Hypertension Onset Date: 10/26/17 Current Visit: No Status: Chronic Plan: cover her home meds. Will monitor and change as needed Qualifiers: Hypertension type: primary hypertension Qualified Code(s): I10 - Essential (primary) hypertension (6) Hyperlipidemia Onset Date: 10/26/17 Current Visit: No Status: Chronic Plan: will restart her home meds. Qualifiers: Hyperlipidemia type: moderate mixed hyperlipidemia not requiring statin therapy Qualified Code(s): E78.2 - Mixed hyperlipidemia Discharge Plan: Home Plan to discharge in: 24 Hours - Code Status/Comfort Care Code Status Assessed: No Physician Review: Patient Assessed, Agree with Above Assessment and Plan Critical Care: No Time Spent Managing Pts Care (In Minutes): 25
[2021-08-09] MEDS: AMOX/K CLAV 875 MG TAB PO SCH ×2 (10:55→20:07)
--- NOTE | 2021-08-09 11:31 | PN ---
Date of Progress Note: 08/09/2021 Subjective: The patient was admitted with acute kidney injury on transplanted kidney secondary to hyperglycemia, glucose diuresis and calcium diuresis. We stopped calcitriol, stopped calcium supplement. Calcium normalized. Workup including PTH was negative this year. Physical Examination: Vital Signs: Blood pressure 147/63, pulse of 54, afebrile. Chest: Clear to auscultation. Heart: S1, S2. Regular. Abdomen: Soft, nontender. Extremities: No edema. Neurological: Alert, oriented x3. No focal. Laboratory Data: Patient's WBC 4.3, H and H 9.8/30.4. Sodium 141, potassium 3.8, bicarb 25, BUN 48, creatinine 2.5, GFR of 19, calcium down to 10, albumin 2.6. Corrected calcium is 11. Current Medications: The patient on include meropenem, Augmentin, Lovenox, amlodipine 5 mg, atorvastatin, hydralazine, gabapentin. IV fluid normal saline at 100 per hour. Assessment And Plan: 1. Acute kidney injury on transplanted kidney disease donor kidney transplant secondary to prerenal calcium diuresis and glucose diuresis recover. Patient's baseline creatinine around 2.3. Currently creatinine back to 2.5. I am going discontinue IV fluid. We will continue to monitor the patient. Continue current immunosuppressive treatment. 2. Chronic kidney disease stage 5, status post end-stage renal disease, status post kidney transplant disease donor with acute kidney injury as above. Continue current immunosuppressive treatment. 3. Urinary tract infection E coli sensitive to Augmentin. We will continue Augmentin for full 2 weeks. 4. Hyperglycemia, as by primary. 5. Hypertension, controlled, optimal continue current treatment. 6. Hypercalcemia. Appropriate suppression of PTH even with the marginal low vitamin D. We will hold on any calcium or calcitriol or vitamin D. We will monitor. time spend exam the patient face to face , reviewing the data lab and radiology , placing order , discussing the case with the steam cleaning 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 including nursing staff and discussing with the hospitalist 45 min RIMMA Voice ID: [id number] Report ID: [id number] SARAY
[2021-08-09] MEDS: ENOXAPARIN 30 MG/0.3 ML SQ SCH (16:39)
[2021-08-09] MEDS: ATORVASTATIN 10 MG TAB PO SCH (20:06)
[2021-08-09] MEDS: HYDRALAZINE HCL 20 MG/ML VIAL IV PRN (20:06)
[2021-08-10 01:13] VITALS: O2SAT 99
[2021-08-10] MEDS: HYDRALAZINE HCL 20 MG/ML VIAL IV PRN (03:59)
[2021-08-10] MEDS: NA CHLORIDE 0.9% 1,000 ML IV SCH (04:09)
[2021-08-10] MEDS: LEVOTHYROXINE SOD 0.05 MG TABLET PO SCH (07:18)
[2021-08-10] MEDS: PANTOPRAZOLE 40MG TABLET PO SCH (07:18)
[2021-08-10] MEDS: INSULIN -REGULAR HUMAN 50 UNIT/0.5 ML ML SQ SCH ×2 (07:30→11:30)
--- NOTE | 2021-08-10 07:37 | P.DS ---
Admission Date: 08/06/21 Discharge Date: 08/10/21 Primary Care Provider: Rudi Disposition: ROUTINE DISCHARGE Reason for Admission: Acute on chronic renal failure. - Problems (1) UTI (urinary tract infection) due to Enterococcus Current Visit: Yes Status: Acute (2) CKD stage 5 due to type 2 diabetes mellitus Current Visit: No Status: Chronic (3) Hypothyroidism Current Visit: No Status: Acute Qualifiers: Hypothyroidism type: unspecified Qualified Code(s): E03.9 - Hypothyroidism, unspecified (4) Diabetes Onset Date: 10/26/17 Current Visit: No Status: Chronic Qualifiers: Diabetes mellitus type: type 2 Diabetes mellitus signal helper insulin use: with signal helper use Diabetes mellitus complication detail: with chronic kidney disease Chronic kidney disease stage: stage 4 (severe) (5) Hypertension Onset Date: 10/26/17 Current Visit: No Status: Chronic Qualifiers: Hypertension type: primary hypertension Qualified Code(s): I10 - Essential (primary) hypertension (6) Hyperlipidemia Onset Date: 10/26/17 Current Visit: No Status: Chronic Qualifiers: Hyperlipidemia type: moderate mixed hyperlipidemia not requiring statin therapy Qualified Code(s): E78.2 - Mixed hyperlipidemia Brief History of Present Illness: Patient is an office patient of Mrs. Grijalva. She has a history of stage 4 ckd. Which is in a transplanted kidney. She has obstructive uropathy with a chronic shen cath. Patient has been having some trouble with very labile sugars. The patient came to the office yesterday. Was found to be very lethargic and had swelling of the legs and face. She was sent to the ER. Was found to have a creatine of 3.7 Which her last creatine was approx 2.3 in Jun. She also had an elevated sugar of 455. Was sent home from the ER. The patient was called this morning from my office. Sent back for direct admition. have discussed the patient with Dr. Mancera as well. Hospital Course: Patient came in for hyperglycemia and acute on chronic renal failure. The patient was found to have a E coli in his urine the patient was suseptible to augmentin. Will send her home and have her follow up with her nephrology follow up with Me and her Physician Practice Coordinator Vital Signs/Physical Exam: Temp Pulse Resp BP Pulse Ox 99.7 F 64 17 146/63 H 97 08/10/21 04:00 08/10/21 06:43 08/10/21 04:00 08/10/21 06:43 08/10/21 04:00 General: Alert, In no apparent distress HEENT: Atraumatic, PERRLA, EOMI Neck: Supple, JVD not distended Respiratory: Clear to auscultation bilaterally, Normal air movement Cardiovascular: Regular rate/rhythm, Normal S1 S2 Gastrointestinal: Normal bowel sounds, No tenderness Musculoskeletal: No tenderness Integumentary: No rashes Neurological: Normal speech, Normal tone, Normal affect Lymphatics: No axilla or inguinal lymphadenopathy Laboratory Data at Discharge: WBC 4.30 K/uL (4.3-10.9) D 08/09/21 05:15 Hgb 9.8 g/dL (12.0-15.0) L 08/09/21 05:15 Hct 30.4 % (36.0-45.0) L 08/09/21 05:15 Plt Count 248 K/uL (152-406) 08/09/21 05:15 Sodium 141 mmol/L (136-145) 08/09/21 05:45 Potassium 3.8 mmol/L (3.5-5.1) 08/09/21 05:45 BUN 48 mg/dL (7-18) H 08/09/21 05:45 Creatinine 2.55 mg/dL (0.55-1.3) H 08/09/21 05:45 Glucose 48 mg/dL (74-106) L* 08/09/21 05:45 Phosphorus Cancelled 08/08/21 04:00 Magnesium Cancelled 08/08/21 04:00 Total Bilirubin 0.2 mg/dL (0.2-1.0) 08/09/21 05:45 AST 10 U/L (15-37) L 08/09/21 05:45 ALT 13 U/L (12-78) 08/09/21 05:45 Alkaline Phosphatase 62 U/L (45-117) 08/09/21 05:45 Home Medications: Amlodipine [Norvasc*] 10 mg PO DAILY 07/04/19 Calcium Carbonate [Tums Regular*] 500 mg PO QID 07/04/19 Gabapentin [Neurontin*] 100 mg PO TID 07/04/19 Magnesium Chloride [Slow-Mag*] 64 mg PO DAILY 07/04/19 Omeprazole [Prilosec] 40 mg PO DAILY 07/04/19 Simvastatin 20 mg PO BEDTIME 07/04/19 Tacrolimus [Prograf] 1 cap PO BID 07/04/19 predniSONE [Prednisone*] 5 mg PO DAILY 07/04/19 Calcitriol [Rocaltrol] 1 mcg PO DAILY 06/23/21 Furosemide [Lasix] 20 mg PO BID 06/23/21 Levothyroxine Sodium 25 mcg PO DAILY 06/23/21 Spironolactone 25 mg PO DAILY 06/23/21 Tamsulosin HCl 0.4 mg PO DAILY 06/23/21 Insulin Aspart [Novolog Flexpen] 3 unit SQ SEECOM 08/06/21 Insulin NPH Human [Novolin N (Humulin N)*] 10 unit SQ SEECOM 08/06/21 Liraglutide [Victoza 2-Tavo] 1.8 mg SQ BREAKFAST 08/06/21 Megestrol [Megace*] 40 mg PO DAILY 08/06/21 Promethazine Tab [Phenergan*] 25 mg PO Q8HR PRN 08/06/21 Amox/Clavulanate [Augmentin 875-125 Tab] 875 mg PO BID 10 Days #20 tab 08/10/21 New Medications: Amox/Clavulanate [Augmentin 875-125 Tab] 875 mg PO BID 10 Days #20 tab Diet: Renal Activity: Ad amirah Followup: Karli Grijalva FNP [facility] [[employer] HE[employer] PROFESSIONAL] - Physician Review: Patient Assessed, Agree with Above Assessment and Plan Time spent managing pt's care (in minutes): 30
[2021-08-10 07:58] LABS: Potassium 3.9 mmol/L (3.5-5.1)
[2021-08-10] MEDS: TACROLIMUS 0.5 MG PO SCH (09:16)
[2021-08-10] MEDS: MAGNESIUM CHLORIDE 64 MG TAB PO SCH (09:16)
[2021-08-10] MEDS: predniSONE 5 MG TAB PO SCH (09:17)
[2021-08-10] MEDS: AMLODIPINE 5 MG TAB PO SCH (09:17)
[2021-08-10] MEDS: AMOX/K CLAV 875 MG TAB PO SCH (09:17)
[2021-08-10] MEDS: GABAPENTIN 100 MG CAP PO SCH (09:18)
[2021-08-10] MEDS: Meropenem 1 GM/100 ML BAG IV SCH (09:19)
[2021-08-10] MEDS: INSULIN GLARGINE 100 UNIT/ML SQ SCH (10:10)
[2021-08-10 12:25] VITALS: BP 130/71; TEMP 98.7
--- NOTE | 2021-08-10 21:58 | PN ---
Date of Progress Note: 08/10/2021 Chief Complaint: Acute on chronic kidney injury. Patient has history of kidney transplant. History Of Present Illness: She presented to the hospital because of generalized weakness. She was found to have acute kidney injury. Renal function has improved over last few days. Patient has prer enal azotemia secondary to the renal hypoperfusion associated with hypercalcemia, calcium supplements were stopped and the patient is to hold calcitriol. Corrected calcium has improved. The patient wa s found to have urinary tract infection with Escherichia coli sensitive to Augmentin. She is taking Augmentin. Review of Systems: Denies fever or chills. Physical Examination: Lungs: Clear to auscultation bilaterally. Heart: S1, S2. Abdomen: Soft, benign. Extremities: No edema. Impression: 1.Acute on chronic kidney injury, nonoliguric. Renal function is improving. Electrolytes are stabi lizing. Calcium level has improved. The patient will follow up with her transplant team. Continue current immunosuppressive medication. 2.Chronic kidney disease with history of end-stage renal disease due to hypertension and the patient developed acute kidney injury in transplanted kidney. Continue current immunosuppressive medication , patient is improving. Renal function is improving to baseline. 3.Hypercalcemia is gradually resolving. Avoid calcium and vitamin D. Monitor electrolytes and chec k intact PTH level for followup. FLORES/CARMINA Voice ID: [id number] Report ID: [id number]
== END 2021-08-10 12:52 | disposition home or self-care (01) | DRG 683 ==
LOC: 2ND 16:08
PROVIDERS: ADMIT Internal Medicine; ATTEND Internal Medicine
DX: N17.0 Acute kidney failure with tubular necrosis (principal); N39.0 Urinary tract infection, site not specified; I12.0 Hypertensive chronic kidney disease with stage 5 chronic kidney disease or end stage renal disease; Z94.0 Kidney transplant status; N18.5 Chronic kidney disease, stage 5; B95.2 Enterococcus as the cause of diseases classified elsewhere; E11.22 Type 2 diabetes mellitus with diabetic chronic kidney disease; E11.65 Type 2 diabetes mellitus with hyperglycemia; E03.9 Hypothyroidism, unspecified; E78.2 Mixed hyperlipidemia; N13.9 Obstructive and reflux uropathy, unspecified; E86.0 Dehydration; E83.52 Hypercalcemia; Z79.4 Long term (current) use of insulin; Z96.0 Presence of urogenital implants
CPT/HCPCS: 0240U; 36415; 70450; 71045; 71250; 76770; 80048; 80053; 80076; 80197; 81003; 81015; 82306; 82550; 82570; 82947; 83735; 83880; 83935; 83970; 84100; 84132; 84156; 84300; 84439; 84443; 84484; 85025; 85379; 85610; 87077; 87086; 87088; 87186; 93005; 93970; 99283; J0360; J1650; J2185; J7030; J7512

== ENCOUNTER 2021-11-12 06:33 | Inpatient (IN) | payer OTHER ==
--- OUTSIDE RECORDS SUMMARY | 2021-11-12 06:40 | XMS REPORT | Continuity of Care Document ---
:1955 Author Organization [facility] t Address [address] [place] [address] Dr. Thomas. [address] [place] [address] Care Team Providers Name Role Phone Regan Fernandez MD Primary Care Physician [phone] Abhishek Long Attending Clinician Unavailable ALL Attending Clinician Unavailable CARLOS Attending Clinician Unavailable Jeffery Traylor MD Attending Clinician Ezequiel GUILLORY Attending Clinician Unavailable Terrence Sears MD Attending Clinician Artur RN Attending Clinician Unavailable Velasquez Bailey MD Attending Clinician Sonu Stark MD Attending Clinician Minerva Attending Clinician Unavailable Penelope Martínez NP Attending Clinician Desiree RN Attending Clinician Unavailable Tyrone PILLAI Attending Clinician Marion Lobato MD Attending Clinician Han VERAS Attending Clinician Connie GUILLORY Attending Clinician Unavailable Dami Mckeon MD Attending Clinician Stanley Attending Clinician Unavailable Estela SORIANO Attending Clinician Unavailable Khadijah Peck Attending Clinician Unavailable Doc Serrano MA Attending Clinician Unavailable Dilcia GUILLORY Attending Clinician Unavailable Mariajose SORIANO Attending Clinician Unavailable Lauryn PILLAI Attending Clinician Suellen PILLAI, [facility] Attending Clinician RUTH ANN PATEL Attending Clinician Unavailable PATTIHIQ Admitting Clinician Unavailable JANE Admitting Clinician Unavailable TYRONE Admitting Clinician Unavailable LAURYN Admitting Clinician Unavailable RUTH ANN PATEL Admitting Clinician Unavailable Payers Payer Name Policy Type Policy Number Effective Date Expiration Date S ource Problems Condition Condition Condition Status Onset Resolution Last Treating Co mments Source Name Details Category Date Date Treatment Clinician Date JOE (acute JOE (acute Disease Active M ethodi kidney kidney 1 st injury) injury) 00:00: Hospita 00 l Age-relate Age-relate Disease Active M ethodi d d 02-18 st osteoporos osteoporos 00:00: Ho spita is without is without 00 l current current pathologic pathologic al al fracture fracture Meningitis Meningitis Disease Active M ethodi , , 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 00:00: Ho spita al al 00 l 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 00:00: Hospit a mellitus mellitus 00 l with with nephropath nephropath y y Vitamin D Vitamin D Disease Active Met hodi deficiency deficiency 2-18 st 00:00: Hospita 00 l UTI UTI Disease Active Methodi (urinary (urinary 217 st tract tract 00:00: Hospita infection) infection) 00 l 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 00:00: Ho spita us species us species 00 l COVID-19 COVID-19 Disease Active Metho di virus virus 08-31 detected detected 00:00: Hospit a 00 l Localized Localized Disease Active Met hodi osteoporos osteoporos 1- st is of is of 00:00: Hospita spine spine 00 l Lower Lower Disease Active Methodi abdominal abdominal 1 st pain pain 00:00: Hospita 00 l Fever Fever Disease Active Methodi 1-30 st 00:00: Hospita 00 l COVID-19 COVID-19 Disease Active Metho di 1-05 st 00:00: Hospita 00 l Open wound Open wound Disease Active 2019-08 M ethodi of left of left 0-20 st foot foot 00:00: Hospita 00 l renal renal Disease Active 2019-08 Methodi hyperparat hyperparat 0-20 st hyroidism hyroidism 00:00: [facility] s/p s/p 00 l subtotal subtotal parathyroi parathyroi dectomy dectomy 03/19,with 03/19,with postop postop hypocalcem hypocalcem ia ia Frequency Frequency Disease Active Met hodi of of 4 st urination urination 00:00: [facility] 00 l Complicate Complicate Disease Active M ethodi d UTI d UTI 11-22 (urinary (urinary 00:00: Hospit a tract tract 00 l infection) infection) Other Other Disease Active Methodi constipati constipati 03-26 st on on 00:00: Hospita 00 l Immunosupp Immunosupp Disease Active M ethodi ressive ressive 10-30 st management management 00:00: [facility] encounter encounter 00 l following following kidney kidney transplant transplant 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 00:00: [facility] 00 l Preop Preop Disease Active Methodi examinatio examinatio 10-30 st n n 00:00: Hospita 00 l Closed Closed Disease Active Methodi displaced displaced 02-23 fracture fracture 00:00: Hospit a of of 00 l tuberosity tuberosity of left of left calcaneus calcaneus Dehydratio Dehydratio Disease Active M ethodi n n 12-29 st 00:00: Hospita 00 l 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 00:00: Hospit a of right of right 00 l eye, eye, moderate moderate stage stage Pseudophak Pseudophak Disease Active M ethodi ia ia 12-27 st 00:00: Hospita 00 l 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 10-27 st diabetes diabetes 00:00: Hospit a mellitus mellitus 00 l with with diabetic diabetic nephropath nephropath y, with y, with long-term long-term current current use of use of insulin insulin Steroid-in 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 Active M ethodi duced duced 10-27 st osteoporos osteoporos 00:00: Ho spita is is 00 l Pyelonephr Pyelonephr Disease Active 0 M ethodi itis itis 3 st 00:00: Hospita 00 l Abnormal Abnormal Disease Active 2016-08 Metho di serum serum 0 st thyroid thyroid 00:00: Hospita stimulatin stimulatin 00 l g hormone g hormone (TSH) (TSH) level level Renal Renal Disease Active [facility] mass, mass, 4[facility] right [facility] Center Proliferat Proliferat Disease Active M ethodi arturo arturo 08-24 st diabetic diabetic 00:00: Hospit a retinopath retinopath 00 l y y associated associated with type with 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 Essential Essential Disease Active Met hodi hypertensi hypertensi 08-24 st on on 00:00: Hospita 00 l Mixed Mixed Disease Active Methodi hyperlipid hyperlipid 08-24 emia emia 00:00: Hospita 00 l Non morbid Non morbid Disease Active M ethodi obesity obesity 08-24 due to due to 00:00: Hospita excess excess 00 l calories calories Osteopenia Osteopenia Disease Active M ethodi 08-24 st 00:00: Hospita 00 l Kidney Kidney Disease Active Methodi transplant transplant 08-24 recipient recipient 00:00: [facility] 00 l Vitamin D Vitamin D Disease Active Met hodi deficiency deficiency 08-24 st 00:00: Hospita 00 l Diarrhea Diarrhea Disease Active Metho di 1 st 00:00: Hospita 00 l Vitamin D Vitamin D Disease Active Met hodi deficiency deficiency 04-13 st 00:00: Hospita 00 l Nonspecifi Nonspecifi Disease Active M ethodi c abnormal c abnormal 04-13 results of results of 00:00: Ho spita basal basal 00 l metabolism metabolism function function study study Obesity Obesity Disease Active Methodi due to due to 04-13 excess excess 00:00: Hospita calories calories 00 l without without serious serious comorbidit comorbidit y y Essential Essential Disease Active Met hodi (primary) (primary) 13 st hypertensi hypertensi 00:00: Ho spita on on 00 l 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 04-13 st associated associated 00:00: [facility] with type with type 00 l 2 diabetes 2 diabetes mellitus mellitus Encounter Encounter Disease Active Met hodi for for 04-13 aftercare aftercare 00:00: [facility] following following 00 l kidney kidney transplant transplant 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 04-13 st of left of left 00:00: Hospita eye, eye, 00 l severe severe stage stage Distal Distal Disease Active [facility] radius radius 6-05 [facility] - fracture, fracture, 00:00: Medi michael left left 00 Center Allergies, Adverse Reactions, Alerts Allergy Allergy Status Severity Reaction(s) Onset Inactive Treating Comm ents Source Name Type Date Date Clinician No Known Propensi Active Method i Drug ty to 02-24 st Allergie adverse 00:00: Hospita s reaction 00 l s to drug Family History Family Member Diagnosis Comments Start Date Stop Date Source Natural father Diabetes [facility] Natural sister Diabetes [facility] Social History Social Habit Start Date Stop Date Quantity Comments Source Exposure to Not sure [employer] [address] (event) Alcohol intake 2021-08-26 2021-08-26 Current [employer] 00:00:00 00:00:00 non-drinker of Hospital alcohol (finding) Tobacco use and 2016-02-25 2016-02-25 Smokeless tobacco [facility] exposure 00:00:00 00:00:00 non-user Hospital Sex Ass[birth year] At [birth year] [employer] 00:00:00 00:00:00 Hospital Smoking Status Start Date Stop Date Source Never smoked tobacco [facility] [facility] Medications Ordered Filled Start Stop Current Ordering Indication Dosage Frequency Signature Comments Components Source Medication Medication Date Date Medication? Clinician (SIG) Name Name aspirin Yes 81mg QD Take 81 mg Meth sintia (ECOTRIN) 1-[address] 81 MG 13:02: daily. Hospita enteric 45 l coated tablet lactulose Yes 20g Q.[id number] Take 30 mL Methodi 20 gram/30 08-29 [id number] ([address] mL solution 00:00: 3D total) by H ospita 00 mouth 3 l (three) times a day as needed (constipat ion). hydrocortis 2021- Yes Q.5D Insert Met hodi one 08-[address] (ANUSOL-HC) 00:00: 05:59 rectum 2 H ospita 2.5 % 00 :00 (two) l rectal times a cream day for 30 days. blood sugar Yes [id number] DX E11.65 Methodi diagnostic 08-[address] strips 00:00: testing Hospita (glucose 00 QID.One l blood) Touch strip test Verio Test strips Strip furosemide 2020-08- No 20mg Q.5D Take 1 Meth sintia (LASIX) 20 2-09 12-10 tablet (20 st mg tablet 00:00: 05:59 mg total) Ho spita 00 :00 by mouth 2 l (two) times a day. gabapentin Yes [place] 1 Metho di (NEURONTIN) -[address] 100 mg 00:00: por la Hospita capsule 00 b[place] jacinda l veces al venkatesh (Take 1 capsule by mouth three times a day) tamsulosin 2020- No .4mg QD Take 0.4 Me thodi (FLOMAX) 02-18 07-[address] 0.4 mg 11:16: 00:00 mouth Hospita capsule 41 :00 daily. l doxycycline 2020- No 100mg Q.5D 100 mg 2 Methodi (VIBRAMYCIN 02-11-14 (two) st ) 100 MG 13:12: 00:00 times a Hospi ta capsule 01 :00 day. l amLODIPine 2021- No 10mg QD Take 1 Meth sintia (NORVASC) 02-11-15 tablet (10 st 10 mg 00:00: 04:59 mg total) Hospit a tablet 00 :00 by mouth l daily. calcitrioL 2021- [place] [id number] 1ug QD Take 2 Met hodi (ROCALTROL) 02-11-[address] 0.5 MCG 00:00: 04:59 (1 mcg Hospita capsule 00 :00 total) by l mouth daily .low amount of calcium in the blood. for auth issues calcium 500mg Q.25D Chew 1 Metho di carbonate 02-[address] (TUMS) 200 00:00: 04:59 (500 mg [facility] mg calcium 00 :00 total) 4 l (500 mg) (four) chewable times a tablet day. magnesium No 64mg QD Take 1 Metho di chloride 64 02-11 tablet (64 s t mg 00:00: 04:59 mg total) Hospita tablet,fermin 00 :00 by mouth l yed release daily. (DR/EC) DR tablet omeprazole No 40mg QD Take 1 Meth sintia (PriLOSEC) 02-[address] 40 MG 00:00: 04:59 (40 mg Hospita capsule 00 :00 total) [place] [id number] 5mg QD Take 1 Met hodi (DELTASONE) 02-11 tablet (5 st 5 mg tablet 00:00: 04:59 mg total) Hospita 00 :00 by mouth l daily .prevent kidney transplant rejection. clonIDINE No .1mg Q.[id number] Take 1 Methodi (CATAPRES) 02-[id number] 0.1 MG 00:00: 04:59 3D (0.1 mg Hospita tablet 00 :00 total) by l mouth 3 (three) times a day. acetaminoph 2020- No [id number] 1{tbl} Q6H Take 1 Methodi en-codeine 01-27-[address] (TYLENOL 00:00: 04:59 mouth Hospita WITH 00 :00 every 6 l CODEINE #3) (six) 300-30 mg hours as per tablet needed for moderate pain for up to 10 days .acute pain. lidocaine 2020- No 1{patch Q24H Place 1 M ethodi (Lidoderm) 01-21 } patch on st 5 % 00:00: 04:59 the skin Hospita 00 :00 daily for l 10 days. Remove & Discard patch within 12 hours or as directed by levothyroxi 2021- No 50ug QD Take 2 Met hodi ne 01-[address] (Synthroid) 00:00: 04:59 (50 mcg Ho spita 25 mcg 00 :00 total) by l tablet mouth daily. Temp refill until pt can see Endo tacrolimus 2021- No .5mg Q.5D Take 1 Meth sintia (PROGRAF) 01-[address] 0.5 MG 00:00: 04:59 (0.5 mg Hospita capsule 00 :00 total) by l mouth 2 (two) times a day. DOSE DECREASE - Maki SORIANO for auth denosumab 2020- No [id number] 60mg Me thodi (PROLIA) 01-19 st syringe 60 17:30: 17:33 Hospit a mg 00 :00 l fluconazole 2021- No 400mg QD Take 2 Me thodi (DIFLUCAN) 11-28-[address] 200 MG 00:00: 05:59 (400 mg Hospita tablet 00 :00 total) by l mouth daily for 300 days. furosemide 2020- No 20mg Q.5D Take 1 Meth sintia (LASIX) 20 11-26 12-09 tablet (20 st mg tablet 00:00: 00:00 mg total) Ho spita 00 :00 by mouth 2 l (two) times a day. spironolact 2020- No 25mg QD Take 1 Met hodi one 11-26- tablet (25 st (ALDACTONE) 00:00: 00:00 mg total) Hospita 25 MG 00 :00 by mouth l tablet daily. levothyroxi 2020- No 25ug QD Take 1 Met hodi ne 11-12 tablet (25 st (Synthroid) 00:00: 00:00 mcg total) Hospita 25 mcg 00 :00 by mouth l tablet daily. nitrofurant 2020- No Metho di oin, 11-11 st macrocrysta 00:00: 00:00 Hospi ta l-monohydra 00 :00 l te, (MACROBID) 100 MG capsule tacrolimus 2020- No 1mg Q.5D Take 1 Meth sintia (PROGRAF) 1 11-03-22 capsule (1 s t MG capsule 00:00: 00:00 mg total) H ospita 00 :00 by mouth 2 l (two) times a day. Z94.0; Txp 12/30/09; DC 01/06/10; MCR AB at time of txp; [facility] tacrolimus 2020- No 1mg Q.5D Take 1 Meth sintia (PROGRAF) 1 11-03-05 capsule (1 s t MG capsule 00:00: 00:00 mg total) H ospita 00 :00 by mouth 2 l (two) times a day. Z94.0; Txp 12/30/09; DC 01/06/10; MCR AB at time of txp; [facility]; Maki SORIANO guaiFENesin 2020- No 600mg Q12H Take 600 Methodi (MUCINEX) 3 03-[address] 600 mg 13:24: 00:00 mouth Hospita tablet 22 :00 every 12 l extended (twelve) release hours. 12hr simvastatin 2021- No 20mg QD Take 1 Met hodi (ZOCOR) 20 10-29-01 tablet (20 st mg tablet 00:00: 04:59 mg total) Ho spita 00 :00 by mouth l nightly. doxycycline 2020- [place] [id number] 100mg Q.5D Take 1 M ethodi (MONODOX) 10-27-[address] 100 MG 00:00: 04:59 (100 mg Hospita capsule 00 :00 total) by l mouth 2 (two) times a day for 7 days .bacterial urinary tract infection. tacrolimus 2020- No 1mg Q.5D Take 1 Meth sintia (PROGRAF) 1 10-27-05 capsule (1 s t MG capsule 00:00: 00:00 mg total) H ospita 00 :00 by mouth 2 l (two) times a day. Z94.0; Txp 12/30/09; DC 01/06/10; MCR AB at time of txp; [facility]; Maki SORIANO Victoza 2020- No INJECT 1.8 Met hodi 3-Tavo 0.6 10-23-[address] mg/0.1 mL 00:00: 00:00 THE SKIN Hos [facility] (18 mg/3 00 :00 ONCE DAILY l mL) pen WITH injector BREAKFAST doxycycline 2020- No 150mg QD Take 1 Me thodi hyclate 10-[address] (ACTICLATE) 00:00: 04:59 (150 mg Ho spita 150 mg 00 :00 total) by l tablet mouth every morning for 7 days. Z94.0; N39.0; Para la infeccion del tracto urinario megestroL 2020- No 40mg QD Take 1 Metho di (MEGACE) 40 10-03 tablet (40 s t MG tablet 00:00: 00:00 mg total) Ho spita 00 :00 by mouth l daily. meclizine 2020- No 25mg Q.[id number] Take 1 Methodi (ANTIVERT) 09-30 [id number] tablet (25 st 25 mg 00:00: 04:59 3D mg total) Hospit a tablet 00 :00 by mouth 3 l (three) times a day as needed for dizziness for up to 30 days. Maki SORIANO for auth [phone] tacrolimus 2020- No 1mg Q.5D Take 1 Meth sintia (PROGRAF) 1 09-24 capsule (1 s t MG capsule 00:00: 00:00 mg total) H ospita 00 :00 by mouth 2 l (two) times a day for 30 days. tamsulosin 2020- No .8mg QD Take 2 Meth sintia (FLOMAX) 09-[address] 0.4 mg 00:00: 04:59 (0.8 mg Hospita capsule 00 :00 total) by l mouth daily with dinner for 30 days. sodium 2020- No [id number] 650mg Q.86373039 Take 1 Methodi bicarbonate 09-[id number] 650 mg 00:00: 04:59 3D (650 mg Hospita tablet 00 :00 total) by l mouth 3 (three) times a day for 30 days. polyethylen 2020- No [id number] 17g Q.5D Take 17 g Methodi e glycol 09-[address] (MIRALAX) 00:00: 04:59 (two) Hospit a 17 gram 00 :00 times a l packet day for 30 days. bethanechol 2020- No [id number] 10mg Q.66000587 Take 1 Methodi (URECHOLINE 09-24 [id number] tablet (10 st ) 10 MG 00:00: 04:59 3D mg total) [facility] tablet 00 :00 by mouth 3 l (three) times a day for 30 days. acetaminoph 2020- No [id number] 500mg Q6H Take 1 Methodi en 09-[address] (TYLENOL) 00:00: 04:59 (500 mg [facility] 500 MG 00 :00 total) by l tablet mouth every 6 (six) hours as needed for mild pain or fever for up to 30 days. fluconazole 2020- No 400mg QD Take 2 Me thodi (DIFLUCAN) 09-[address] 200 MG 00:00: 00:00 (400 mg Hospita tablet 00 :00 total) by l mouth daily. insulin 2020- No 4U QD Inject 4 Metho di lispro 2- 02-[address] (HumaLOG) 14:00: 00:00 under the Ho spita 100 unit/mL 33 :00 skin l injection Medrol Dose Pack Scheduling ONLY. Take with dinner insulin Yes inyecte 3 Metho di ASPART 2-[address] (NovoLOG 00:00: antes Hospita Flexpen 00 comida l U-100 Insulin) 100 unit/mL (3 mL) insulin pen insulin NPH Yes Inject 10 M ethodi isoph U-100 2-[address] human 00:00: breakfast Hospita (HumuLIN N 00 and 4 l NPH Insulin units at KwikPen) bedtime 100 unit/mL (3 mL) insulin No Inject 8 Metho di lispro 09-22-[address] (HumaLOG 00:00: 00:00 breakfast Hos [facility] KwikPen 00 :00 and 12 l Insulin) units 100 unit/mL lunch and injection dinner. pen Patient on sliding scale. Max dose per meal 18 units. insulin NPH 2020- No 10U QD Inject 10 Methodi isoph U-100 09-22- Units st human 00:00: 00:00 under the Hospit a (HumuLIN N 00 :00 skin daily l NPH Insulin before KwikPen) breakfast. 100 unit/mL (3 mL) predniSONE 2019-08 [id number] 5mg QD Take 1 Met hodi (DELTASONE) -14 tablet (5 st 5 mg tablet 00:00: 00:00 mg total) Hospita 00 :00 by mouth l daily .prevent kidney transplant rejection. tacrolimus 2019-08 [id number] 1.5mg Q.5D Take 3 Me thodi (PROGRAF) 09-[address] 0.5 MG 00:00: 00:00 (1.5 mg Hospita capsule 00 :00 total) by l mouth 2 (two) times a day .prevent kidney transplant rejection. DOSE CHANGE! blood sugar 2019-08 DX E11.65 Methodi diagnostic 08-[address] strips 00:00: 00:00 testing Hospita (glucose 00 :00 QID. l blood) Please strip test match to strips machine. insulin NPH 2019-08 20U QD Inject 20 Methodi isoph U-100 08-[address] human 00:00: 00:00 under the Hospit a (HumuLIN N 00 :00 skin daily l NPH Insulin before KwikPen) breakfast. 100 unit/mL (3 mL) Insupen 31 2019-08 Yes Use 5 Method i gauge x - veces al st 16" 00:00: venkatesh (Use 5 Hospit a needle 00 times l daily) blood sugar 2019-08 Yes [id number] DX: E11.65 Methodi diagnostic 0-[address] strips 00:00: times Hospita strip test 00 daily l strips lancets 33 2019-08 Yes DX E11.65 Me thodi gauge misc 0-[address] 00:00: testing Hospita 00 QID. l Please match to machine. Benzonatate Benzonatate No Na Long [address] 03-14 as needed [facility] 00:[facility] Clinics amLODIPine No 10mg QD Take 1 Meth sintia (NORVASC) 02-18 tablet (10 st 10 mg 00:00: 00:00 mg total) Hospit a tablet 00 :00 by mouth l daily. calcitrioL 2020- No [id number] 1ug QD Take 2 Met hodi (ROCALTROL) 02-[address] 0.5 MCG 00:00: 00:00 (1 mcg Hospita capsule 00 :00 total) by l mouth daily .low amount of calcium in the blood. for auth issues calcium No 500mg Q.25D Chew 1 Metho di carbonate 02-[address] (TUMS) 200 00:00: 00:00 (500 mg [facility] mg calcium 00 :00 total) 4 l (500 mg) (four) chewable times a tablet day. magnesium No 64mg QD Take 1 Metho di chloride 64 02-18 tablet (64 s t mg 00:00: 00:00 mg total) Hospita tablet,fermin 00 :00 by mouth l yed release daily. (DR/EC) tablet carvediloL No 12.5mg Q.5D Take 1 Me thodi (COREG) 02-[address] 12.5 MG 00:00: 00:00 (12.5 mg Hospi ta tablet 00 :00 total) by l mouth 2 (two) times a day with meals. clonIDINE 2020- No .1mg Q.[id number] Take 1 Methodi (Catapres) 02-[id number] 0.1 MG 00:00: 00:00 3D (0.1 mg Hospita tablet 00 :00 total) by l mouth 3 (three) times a day. omeprazole 2020- No 40mg QD Take 1 Meth sintia (PriLOSEC) 02-12-[address] 40 MG 00:00: 00:00 (40 mg Hospita capsule 00 :00 total) by l mouth daily. Cetirizine Cetirizine Yes Na Long [address] HCl HCl 01-20 Orally [facility] - 00:00: Once a day [facility] 00 l [facility]pat[facility] ent Clinics insulin NPH 2020- No 20 units M ethodi (HumuLIN-N) 11-[address] 100 unit/mL 00:00: 00:00 Hospi ta injection 00 :00 l insulin 2020- No 3U Q.[id number] Inject 3 Methodi lispro 11-[id number] (HumaLOG) 00:00: 00:00 3D under the Ho spita 100 unit/mL 00 :00 skin 3 l injection (three) times a day before meals. On sliding scale blood-gluco Yes DX E11.65 M ethodi se meter 4-[address] misc 00:00: testing Hospita 00 QID. l Please match machine to insurance. simvastatin 2020- No 20mg QD Take 1 Met hodi (ZOCOR) 20 09-21-31 tablet (20 st MG tablet 00:00: 00:00 mg total) Ho spita 00 :00 by mouth l nightly. mycophenola 2020- No 500mg Q.5D Take 1 Me thodi te 09-[address] (CELLCEPT) 00:00: 00:00 (500 mg [facility] 500 mg 00 :00 total) by l tablet mouth 2 (two) times a day. 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 albuterol 2020- No 180ug Q4H Inhale 180 Methodi sulfate 90 2-12 03-[address] mcg/actuati 00:00: 00:00 4 (four) H ospita on aerosol 00 :00 hours. l fabio [phone] breath 91 for activated auth - Maki SORIANO Albuterol Albuterol Yes Na Long [address] Sulfate HFA Sulfate HFA 9- L ukes - 00:00: [facility] 00 l [facility]pat[facility] ent Clinics albuterol 2020- No 2 puffs Meth sintia (PROAIR 04-25 06-[address] HFA) 90 00:00: 00:00 every 4-6 [facility] mcg/actuati 00 :00 hrs prn l on inhaler for 10 days gabapentin 2020- No 100mg Q.[id number] Take 1 Methodi (NEURONTIN) 01-25- [id number] capsule st 100 mg 00:00: 00:00 3D (100 mg Hospita capsule 00 :00 total) by l mouth 3 (three) times a day. pen needle, 2017-08 Yes 1{piece Q.2D 1 Piece 5 Methodi diabetic 31 2-21 } (five) st gauge x 00:00: times a Hospita 1/4" needle 00 day. l SITagliptin 2020- No DAILY Meth sintia (JANUVIA) 10-26- st 100 MG 00:00: 00:00 Hospita tablet 00 :00 l promethazin Yes EVERY Metho di e - EIGHT st (PHENERGAN) 00:00: HOURS Ho spita 25 MG 00 NEEDED l tablet pregabalin 2020- No TWICE Metho di (LYRICA) 10-25- DAILY st 100 MG 00:00: 00:00 Hospita capsule 00 :00 l predniSONE Yes 5mg QD Take [address] (DELTASONE) 11-26 by mouth Luke s - 5 MG [...] l 24 Center cloNIDine 2017-0 Yes .1mg Q.[id number] Take 0.[address] HCl 4-28 [id number] mg by [facility] - (CATAPRES) 11:41: 3D mouth 3 Medi michael 0.1 MG 24 (three) Center tablet times daily. omeprazole 2017-0 Yes 40mg QD Take [address] (PRILOSEC) 4-28 by mouth [facility] - 40 MG 11:41: daily. Medical capsule 24 Center simvastatin 2017-0 Yes 20mg QD Take [address] (ZOCOR) 20 4-28 by mouth [facility] - MG tablet 11:41: nightly. Medi michael 24 [place] calcitriol 2017-0 Yes .25ug QD Take 0.[address] (ROCALTROL) 4-28 mcg by [facility] - 0.25 MCG 11:41: mouth Medical capsule 24 daily. [place] alendronate 2016-0 Yes 70mg Take [address] (FOSAMAX) 4-28 by mouth [facility] - 70 MG 11:41: every 7 Medical tablet 24 days Take Center in the morning with a full glass of water, on an empty stomach, and do not take anything else by mouth or lie down for the next 30 min. . gabapentin 2017-0 Yes 100mg Q.[id number] Take [address] (NEURONTIN) 4-28 [id number] mg by L ukes - 100 MG 11:41: 3D mouth 3 Medical capsule 24 (three) Center times daily. insulin NPH 2017- Yes 22U Inject [address] [...] above 100 - 8 units. insulin NPH 2017-0 Yes 4U Q.5D Inject [address] 100 unit/mL 4-28 Units [facility] - (3 mL) InPn 11:41: subcutaneo Medical 24 usly 2 Center (two) times daily Every NOON and every NIGHT . tacrolimus Yes 1mg Q.5D Take [address] (PROGRAF) 1 4-28 by mouth 2 Iram kes - MG capsule 11:41: (two) Medica l 24 times Center daily. mycophenola Yes Q.5D Take by [facility] te 4-28 mouth 2 [facility] - (CELLCEPT) 11:41: (two) Medica l 500 mg 24 times Center tablet daily. alendronate 2015-08- No 1{tbl} 1 tablet. [facility] (FOSAMAX[facility] 0-04 06-21 st 70 MG 00:00: 00:00 [facility]osp[facility] tablet 00 :00 l losartan 2020- No 2{tbl} 2 tablets. [facility] (COZAAR) 50 5-14 06-21 st MG tablet 00:00: 00:00 [facility]osp[facility] 00 :00 l Coreg Coreg Yes Na Long 1 tablet [...] [facility] (Isophane[facility]oph[facility] Prilosec Prilosec Yes Na Long not [facility] Omeprazole Omeprazole Yes Na Long [address] [facility] 30 minutes [facility] - before [facility] morning l meal [facility] ent Clinics Gabapentin Gabapentin Yes Na [facility] [address] [facility] Prolia Prolia Yes [facility] as [facility] directed [facility] NovoLog NovoLog Yes Na Long as [facility] Flexpen Flexpen directed [facility] Clonidine Clonidine Yes Na Long [address] [facility] HCl HCl [facility] Senokot S Senokot S Yes Na Long [address] [facility] in the [facility] evening as [facility] needed l [facility] Magnesium Magnesium Yes Na Long [address] [facility] Chloride Chloride [facility] Doxycycline Doxycycline Yes Na Long [address] [facility] Hyclate Hyclate [facility] Azithromyci Azithromyci Yes Na Long [address] [facility] [address] n n on the [facility] - first day, [facility]oria then 1 l tablet Outpati daily for ent 4 days Clinics Flonase Flonase Yes Na Long [address] [facility] each [facility] nostril [facility] Humalog Humalog Yes Na Long not [facility] defined [facility] Cetirizine Cetirizine Yes Na Long TAKE [address] [facility] HCl HCl TABLET BY [facility] - MOUTH [facility]oria EVERY DAY l [facility] PredniSONE PredniSONE Yes Na Long [address] [facility] Prograf Prograf Yes Na Long not [facility] defined [facility] Senna Senna Yes Na Long not [facility] defined [facility] Catapres Catapres Yes Na Long not [facility] Tradjenta Tradjenta Yes Na Long not [facility] Lactulose Lactulose Yes Na Long not [facility] Amlodipine Amlodipine Yes Na Long [address] [facility] [address] Besylate Besylate kes - [facility] l [facility] Immunizations Ordered Immunization Filled Immunization Date Status Commen ts Source Name Name JUAN RAMON LAURENT 2020-09-24 Completed [facility] VACCINATION 00:00:00 [facility] FLUZONE QUAD PF 2019-06-19 Completed [facility] 00:[facility]:00 Hospital FLUZONE QUAD 2017-05-10 Completed [facility] 00:00:00 [facility] Pneumococcal 2015-10-14 Completed [facility] Conjugate 13-Valent 00:00:00 [facility] Vital Signs Vital Name Observation Time Observation Value Comments Source Systolic blood 2021-08-29 16:46:04 126 mm[Hg] [facility] pressure Diastolic blood 2021-08-29 16:46:04 67 mm[Hg] [facility] pressure Heart rate 2021-08-29 16:46:04 58 /min [facility] Body temperature 2021-08-29 16:46:04 36.56 Deanna [facility] Respiratory rate 2021-08-29 16:46:04 17 /min [facility] Oxygen saturation in 2021-08-29 16:46:04 98 /min [facility] Arterial blood by Pulse oximetry Body weight 2021-08-29 11:56:00 64.6 kg [facility] BMI 2021-08-29 11:56:00 26.91 kg/m2 [facility] Body height 2021-08-27 02:00:00 154.9 cm [facility] Procedures Procedure Date / Time Performing Clinician Source Performed POC GLUCOSE 2021-08-29 17:24:00 Magnolia Gonzalez [facility] BASIC METABOLIC PANEL 2021-08-29 12:26:00 Rickey Diallo [facility] Eric HC COMPLETE BLD COUNT 2021-08-29 12:26:00 Magnolia Gonzalez [facility] W/AUTO DIFF ESTIMATED GFR 2021-08-29 12:26:00 [facility] POC GLUCOSE 2021-08-29 11:35:00 Magnolia Gonzalez [facility] POC GLUCOSE 2021-08-29 02:49[facility] 2021-08-29 02:18:00 [facility] POC GLUCOSE 2021-08-28 22:16:00 [facility] P[facility] 2021-08-28 17:32:00 [facility] X[facility] CHEST 1 VW PORTABLE 2021-08-28 12:54:57 Yoel [facility] Eric POC GLUCOSE 2021-08-28 12:27:00 [facility] BASIC MET[facility]OLIC PANEL 2021-08-28 [facility] COMPLETE BLD COUNT 2021-08-28 11:41:00 [facility] W/AUTO DIFF ESTIMATED GFR 2021-08-28 [facility] P[facility]UCOSE 2021-08-28 02:22:00 [facility] POC GLU[facility]SE 2021-08-27 22:07:00 [facility] POC GLUCOSE 2021-08-27 16:58:00 [facility] POC GLU[facility]SE 2021-08-27 12:17:00 Kayce Parks spital COVID-19 SEROLOGY PATIENT 2021-08-27 12:09:00 Julito Tubbs [facility] SURVEILLANCE Alex BASIC METABOLIC PANEL 2021-08-27 12:09:00 [facility] HC COMPLETE BLD COUNT 2021-08-27 12:09:00 [facility] W/AUTO DIFF [id number] TACROLIMUS LEVEL, 2021-08-27 12:09[facility]00 [facility] ESTIMATED GFR 2021-08-27 12:09:00 [facility] COVID-19 ANTI-SPIKE IGG 2021-08-27 12:09:00 [facility] Alex POC GLUCOSE 2021-08-27 01:47:00 Zaki Gary Ho spital POC GLUCOSE 2021-08-26 23:16:00 Kayce Parks spital [id number] TACROLIMUS LEVEL, 2021-08-26 19:38:00 Cookie [facility] RANDOM COVID-19 QUALITATIVE 2021-08-26 19:38:00 Chacha Mishra [facility] RT-PCR POC GLUCOSE 2021-08-26 17:32:00 Zaki Gary spital POC GLUCOSE 2021-08-26 14:45:00 RyanugEllen montemayor spital LACTIC ACID LEVEL, SEPSIS 2021-08-26 10:08:00 Chacha Mishra [facility] - NOW AND REPEAT 2X EVERY 3 HOURS COMPREHENSIVE METABOLIC 2021-08-26 10:08:00 Charly [facility] PANEL HC COMPLETE BLD COUNT 2021-08-26 10:08:00 [facility]FF Latrondria Sanam ESTIMATED GFR 2021-08-26 10:08:00 Kayce Parks spital URINALYSIS SCREEN AND 2021-08-26 05:25:00 Tad [facility] MICROSCOPY, WITH REFLEX TO CULTURE COMPREHENSIVE METABOLIC 2021-08-26 04:50:00 [facility] PANEL ESTIMATED GFR 2021-08-26 04:50:00 Kayce Parks spital HC COMPLETE BLD COUNT 2021-08-26 03:52:00 [facility]AUTO DIFF LACTIC ACID LEVEL, SEPSIS 2021-08-26 03:52:00 Chacha Mishra [facility] - NOW AND REPEAT 2X EVERY 3 HOURS MAGNESIUM LEVEL 2021-08-26 03:52:00 Chacha Mishra spital PHOSPHORUS LEVEL 2021-08-26 03:52:00 Chacha Mishra H ospital BLOOD CULTURE, AEROBIC & 2021-08-26 03:50:00 Chacha Mishra [facility] ANAEROBIC XR CHEST 2 VW 2021-08-26 02:36:00 Chacha Mishra spital URINE CULTURE 2021-08-26 02:18:[address] ABDOMEN PELVIS WO 2021-08-26 01:58:43 Chacha Mishra [facility] CONTRAST URINE CULTURE 2021-07-06 16:41:00 [facility] Ali HC COMPLETE BLD COUNT 2021-07-06 14:40:00 [facility] W/AUTO DIFF Ali COMPREHENSIVE METABOLIC 2021-07-06 14:40:00 [facility] PANEL Ali MAGNESIUM LEVEL 2021-07-06 14:40:00 [facility] Ali PHOSPHORUS LEVEL 2021-07-06 14:40:00 [facility] Ali URINALYSIS SCREEN AND 2021-07-06 14:40:00 [facility] MICROSCOPY, WITH REFLEX TO Ali CULTURE BK VIRUS BY PCR 2021-07-06 14:40:00 [facility] Ali PROTEIN, URINE, RANDOM 2021-07-06 14:40:00 [facility] Ali CREATININE LEVEL, URINE, 2021-07-06 14:40:00 [facility] RANDOM Ali PARATHYROID HORMONE 2021-07-06 14:40:00 [facility] Ali CYTOMEGALOVIRUS BY PCR 2021-07-06 14:40:00 [facility] Ali VITAMIN D 25 HYDROXY LEVEL 2021-07-06 14:40:00 [facility] Ali [id number] TACROLIMUS LEVEL, 2021-07-06 14:40:00 [facility] RANDOM Ali PROTHROMBIN TIME WITH INR 2021-07-06 14:40:00 [facility] Ali ESTIMATED GFR 2021-07-06 14:40:00 [facility] Ali DONOR SPECIFIC ANTIBODY 2021-07-06 14:40:00 [facility] Ali CRYPTOCOCCAL ANTIGEN 2021-07-06 14:40:00 [facility] SCREEN Ali HC COMPLETE BLD COUNT 2021-04-07 12:55:00 [facility] W/AUTO DIFF Ali COMPREHENSIVE METABOLIC 2021-04-07 12:55:00 [facility] PANEL Ali CREATININE LEVEL, URINE, 2021-04-07 12:55:00 [facility] RANDOM Ali [id number] TACROLIMUS LEVEL, 2021-04-07 12:55:00 [facility] RANDOM Ali MAGNESIUM LEVEL 2021-04-07 12:55:00 [facility] Ali PHOSPHORUS LEVEL 2021-04-07 12:55:00 [facility] Ali PROTEIN, URINE, RANDOM 2021-04-07 12:55:00 [facility] Ali URINALYSIS SCREEN AND 2021-04-07 12:55:00 [facility] MICROSCOPY, WITH REFLEX TO Ali CULTURE BK VIRUS BY PCR 2021-04-07 12:55:00 [facility] Ali CYTOMEGALOVIRUS BY PCR 2021-04-07 12:55:00 [facility] Ali ESTIMATED GFR 2021-04-07 12:55:00 [facility] Ali CRYPTOCOCCAL ANTIGEN 2021-04-07 12:55:00 [facility] SCREEN Ali URINE CULTURE 2021-04-07 12:55:00 [facility] Ali HC COMPLETE BLD COUNT 2021-02-16 14:55:00 [facility] W/AUTO DIFF Ali COMPREHENSIVE METABOLIC 2021-02-16 14:55:00 [facility] PANEL Ali CREATININE LEVEL, URINE, 2021-02-16 14:55:00 [facility] RANDOM Ali [id number] TACROLIMUS LEVEL, 2021-02-16 14:55:00 [facility] RANDOM Ali MAGNESIUM LEVEL 2021-02-16 14:55:00 [facility] Ali PHOSPHORUS LEVEL 2021-02-16 14:55:00 [facility] Ali PROTEIN, URINE, RANDOM 2021-02-16 14:55:00 [facility] Ali URINALYSIS SCREEN AND 2021-02-16 14:55:00 [facility] MICROSCOPY, WITH REFLEX TO Ali CULTURE BK VIRUS BY PCR 2021-02-16 14:55:00 [facility] Ali CYTOMEGALOVIRUS BY PCR 2021-02-16 14:55:00 [facility] Ali PARATHYROID HORMONE 2021-02-16 14:55:00 [facility] HEMOGLOBIN A1C 2021-02-16 14:55:00 [facility] LIPID PANEL 2021-02-16 14:55:00 [facility] VITAMIN D 25 HYDROXY LEVEL 2021-02-16 14:55:00 [facility] T4, FREE 2021-02-16 14:55:00 [facility] THYROID STIMULATING 2021-02-16 14:55:00 [facility] HORMONE ESTIMATED GFR 2021-02-16 14:55:00 [facility] CRYPTOCOCCAL ANTIGEN 2021-02-16 14:55:00 [facility] SCREEN Ali URINE CULTURE 2021-02-16 14:55:00 [facility] Ali POC GLUCOSE 2021-01-27 17:31:00 Sharifa Yepez spital POC GLUCOSE 2021-01-27 17:10:00 Sharifa Yepez spital POC GLUCOSE 2021-01-27 16:46:00 Sharifa Yepez spital POC GLUCOSE 2021-01-27 16:06:00 Sharifa Yepez spital LIGATION OR BANDING, 2021-01-27 15:49:00 Sharifa Yepez [facility] FISTULA, AV POC GLUCOSE 2021-01-27 15:44:00 Sharifa Yepez spital NE AN PERIPHERAL BLOCK 2021-01-27 15:35:00 Paola Lobato [facility] PROCEDURE FOR PAIN E. POC GLUCOSE 2021-01-27 13:55:00 Sharifa Yepez spital POC PANEL 2021-01-27 12:59:00 Sharifa Yepez Ho spital POC PANEL 2021-01-27 12:55:00 Sharifa Yepez spital POC GLUCOSE 2021-01-27 12:38:00 Sharifa Yepez [facility] spital TTE COMPLETE, WO CONTRAST, 2021-01-22 21:12:11 Jus Martínez [facility] W DOPPLER ([id number]) Penelope COVID-19 QUALITATIVE 2021-01-21 19:35:00 [facility] US DUPLEX HEMODIALYSIS AVG 2021-01-21 18:12:44 Cornelio Mckeon [facility] AVF ACCESS BONE DENSITY 2021-01-19 16:17:47 [facility] HC COMPLETE BLD COUNT 2021-01-19 12:55:00 [facility] W/AUTO DIFF Ali COMPREHENSIVE METABOLIC 2021-01-19 12:55:00 [facility] PANEL Ali CREATININE LEVEL, URINE, 2021-01-19 12:55:00 [facility] RANDOM Ali [id number] TACROLIMUS LEVEL, 2021-01-19 12:55:00 [facility] RANDOM Ali MAGNESIUM LEVEL 2021-01-19 12:55:00 [facility] Ali PHOSPHORUS LEVEL 2021-01-19 12:55:00 [facility] Ali PROTEIN, URINE, RANDOM 2021-01-19 12:55:00 [facility] URINALYSIS SCREEN AND 2021-01-19 12:55:00 [facility] MICROSCOPY, WITH REFLEX TO Ali CULTURE BK VIRUS BY PCR 2021-01-19 12:55:00 [facility] Ali CYTOMEGALOVIRUS BY PCR 2021-01-19 12:55:00 [facility] Ali THYROID STIMULATING 2021-01-19 12:55:00 [facility] HORMONE T4, FREE 2021-01-19 12:55:00 [facility] HEMOGLOBIN A1C 2021-01-19 12:55:00 [facility] PARATHYROID HORMONE 2021-01-19 12:55:00 [facility] Ali LIPID PANEL 2021-01-19 12:55:00 [facility] Ali VITAMIN D 25 HYDROXY LEVEL 2021-01-19 12:55:00 [facility] Ali PROTHROMBIN TIME WITH INR 2021-01-19 12:55:00 [facility] Ali ESTIMATED GFR 2021-01-19 12:55:00 [facility] DONOR SPECIFIC ANTIBODY 2021-01-19 12:55:00 [facility] Ali CRYPTOCOCCAL ANTIGEN 2021-01-19 12:55:00 [facility] SCREEN Ali URINE CULTURE 2021-01-19 12:55:00 [facility] Ali HC COMPLETE BLD COUNT 2020-12-24 12:45:00 [facility] W/AUTO DIFF Ali ESTIMATED GFR 2020-12-24 12:45:00 [facility] Ali AMYLASE LEVEL 2020-12-24 12:45:00 [facility] LIPASE LEVEL 2020-12-24 12:45:00 [facility] T4, FREE 2020-12-24 12:45:00 [facility] VITAMIN D 25 HYDROXY LEVEL 2020-12-24 12:45:00 [facility] THYROID STIMULATING 2020-12-24 12:45:00 [facility] HORMONE PARATHYROID HORMONE 2020-12-24 12:45:00 [facility] CRYPTOCOCCAL ANTIGEN 2020-12-24 12:45:00 [facility] SCREEN Ali URINE CULTURE 2020-12-24 12:45:00 [facility] Ali CYTOMEGALOVIRUS BY PCR 2020-12-24 12:45:00 [facility] Ali HEMOGLOBIN A1C 2020-12-24 12:45:00 [facility] Ali BK VIRUS BY PCR 2020-12-24 12:45:00 [facility] Ali URINALYSIS SCREEN AND 2020-12-24 12:45:00 [facility] MICROSCOPY, WITH REFLEX TO Ali CULTURE PROTEIN, URINE, RANDOM 2020-12-24 12:45:00 [facility] Ali PHOSPHORUS LEVEL 2020-12-24 12:45:00 [facility] Ali MAGNESIUM LEVEL 2020-12-24 12:45:00 [facility] Ali [id number] TACROLIMUS LEVEL, 2020-12-24 12:45:00 [facility] RANDOM Ali CREATININE LEVEL, URINE, 2020-12-24 12:45:00 [facility] RANDOM Ali COMPREHENSIVE METABOLIC 2020-12-24 12:45:00 [facility] PANEL Ali CRYPTOCOCCAL ANTIGEN 2020-11-24 12:12:00 [facility] SCREEN Ali URINE CULTURE 2020-11-24 12:12:00 [facility] Ali HC COMPLETE BLD COUNT 2020-11-24 12:12:00 [facility] W/AUTO DIFF Ali COMPREHENSIVE METABOLIC 2020-11-24 12:12:00 [facility] PANEL Ali CREATININE LEVEL, URINE, 2020-11-24 12:12:00 [facility] RANDOM Ali [id number] TACROLIMUS LEVEL, 2020-11-24 12:12:00 [facility] RANDOM Ali MAGNESIUM LEVEL 2020-11-24 12:12:00 [facility] Ali PHOSPHORUS LEVEL 2020-11-24 12:12:00 [facility] Ali PROTEIN, URINE, RANDOM 2020-11-24 12:12:00 [facility] Ali URINALYSIS SCREEN AND 2020-11-24 12:12:00 [facility] MICROSCOPY, WITH REFLEX TO Ali CULTURE BK VIRUS BY PCR 2020-11-24 12:12:00 [facility] Ali CYTOMEGALOVIRUS BY PCR 2020-11-24 12:12:00 [facility] Ali ESTIMATED GFR 2020-11-24 12:12:00 [facility] Ali HC COMPLETE BLD COUNT 2020-11-10 14:14:00 [facility] W/AUTO DIFF Ali COMPREHENSIVE METABOLIC 2020-11-10 14:14:00 [facility] PANEL Ali CREATININE LEVEL, URINE, 2020-11-10 14:14:00 [facility] RANDOM Ali [id number] TACROLIMUS LEVEL, 2020-11-10 14:14:00 [facility] RANDOM Ali MAGNESIUM LEVEL 2020-11-10 14:14:00 [facility] Ali PHOSPHORUS LEVEL 2020-11-10 14:14:00 [facility] Ali PROTEIN, URINE, RANDOM 2020-11-10 14:14:00 [facility] Ali URINALYSIS SCREEN AND 2020-11-10 14:14:00 [facility] MICROSCOPY, WITH REFLEX TO Ali CULTURE BK VIRUS BY PCR 2020-11-10 14:14:00 [facility] Ali CYTOMEGALOVIRUS BY PCR 2020-11-10 14:14:00 [facility] Ali ESTIMATED GFR 2020-11-10 14:14:00 [facility] Ali URINE CULTURE 2020-11-10 13:00:00 [facility] Ali URINE CULTURE 2020-10-27 15:40:00 [facility] Ali CRYPTOCOCCAL ANTIGEN 2020-10-27 12:55:00 [facility] SCREEN Ali CYTOMEGALOVIRUS BY PCR 2020-10-27 12:55:00 [facility] Ali BK VIRUS BY PCR 2020-10-27 12:55:00 [facility] Ali URINALYSIS SCREEN AND 2020-10-27 12:55:00 [facility] MICROSCOPY, WITH REFLEX TO Ali CULTURE PROTEIN, URINE, RANDOM 2020-10-27 12:55:00 Abdellatif, [facility] Ali PHOSPHORUS LEVEL 2020-10-27 12:55:00 [facility] Ali MAGNESIUM LEVEL 2020-10-27 12:55:00 [facility] [id number] TACROLIMUS LEVEL, 2020-10-27 12:55[facility] Ali CREATININE LEVEL, URINE, 2020-10-27 12:55:00 [facility] RANDOM Ali AMYLASE LEVEL 2020-10-27 12:55:00 [facility] HC COMPLETE BLD COUNT 2020-10-27 12:55:00 [facility] W/AUTO DIFF COMPREHENSIVE METABOLIC 2020-10-27 12:55:00 [facility] PANEL HEMOGLOBIN A1C 2020-10-27 12:55:00 [facility] LIPASE LEVEL 2020-10-27 12:55:00 [facility] T4, FREE 2020-10-27 12:55:00 [facility] THYROID STIMULATING 2020-10-27 12:55:00 [facility] HORMONE VITAMIN D 25 HYDROXY LEVEL 2020-10-27 12:55:00 [facility] PARATHYROID HORMONE 2020-10-27 12:55:00 [facility] ESTIMATED GFR 2020-10-27 12:55:00 [facility] URINE CULTURE 2020-10-13 13:29:00 Tre Stark BASIC METABOLIC PANEL 2020-10-13 12:12:00 Lincoln [facility] Sonu URINALYSIS SCREEN AND 2020-10-13 12:12:00 [facility] MICROSCOPY, WITH REFLEX TO Sonu CULTURE ESTIMATED GFR 2020-10-13 12:12:00 Tre Stark CREATININE LEVEL, URINE, 2020-10-13 12:12:00 [facility] RANDOM Ali PROTEIN, URINE, RANDOM 2020-10-13 12:12:00 [facility] Ali HEPATIC FUNCTION PANEL 2020-10-13 12:12:00 Tre Stark [facility] Sonu URINE CULTURE 2020-09-30 14:40:00 [facility] Ali COMPREHENSIVE METABOLIC 2020-09-30 14:40:00 [facility] PANEL Ali [id number] TACROLIMUS LEVEL, 2020-09-30 14:40:00 [facility] RANDOM Ali HC COMPLETE BLD COUNT 2020-09-30 14:40:00 [facility] W/AUTO DIFF Ali MAGNESIUM LEVEL 2020-09-30 14:40:00 [facility] Ali PHOSPHORUS LEVEL 2020-09-30 14:40:00 [facility] Ali PROTEIN, URINE, RANDOM 2020-09-30 14:40:00 [facility] Ali CREATININE LEVEL, URINE, 2020-09-30 14:40:00 [facility] RANDOM Ali URINALYSIS SCREEN AND 2020-09-30 14:40:00 [facility] MICROSCOPY, WITH REFLEX TO Ali CULTURE ESTIMATED GFR 2020-09-30 14:40:00 [facility] Ali POC GLUCOSE 2020-09-24 17:32:[address] [facility] [employer] Ho spital POC GLUCOSE 2020-09-24 13:38:[address] [facility] [employer] [facility] spital POC GLUCOSE 2020-09-24 12:17:00 [facility] spital [id number] TACROLIMUS LEVEL, 2020-09-24 12:00:00 [facility] RANDOM HC COMPLETE BLD COUNT 2020-09-24 12:00:00 [facility] W/AUTO DIFF SMEAR REVIEW 2020-09-24 12:00:00 Ana Laura Awad spital BASIC METABOLIC PANEL 2020-09-24 10:00:00 [facility] ESTIMATED GFR 2020-09-24 10:00:[address] [facility] [employer] [facility] spital POC GLUCOSE 2020-09-24 03:05:00 Fan, Ana Laura Mcghee spital POC GLUCOSE 2020-09-23 23:10:00 Fan, Ana Laura Mcghee spital POC GLUCOSE 2020-09-23 17:31:00 [facility], [facility] 2020-09-23 13:03:00 Fan, [facility] [employer] Ho spital [id number] TACROLIMUS LEVEL, 2020-09-23 11:24:00 Fan, [facility] RANDOM B NATRIURETIC PEPTIDE 2020-09-23 11:24:00 Fan, [facility] PARATHYROID HORMONE 2020-09-23 11:24:00 Fan, [facility] BASIC METABOLIC PANEL 2020-09-23 10:00:00 Fan, [facility] ESTIMATED GFR 2020-09-23 10:00:00 Fan, [facility] [employer] Ho spital POC GLUCOSE 2020-09-23 03:12:00 Fan, [facility] 2020-09-23 02:30:45 Daniel [facility] POC GLUCOSE 2020-09-22 23:40:00 Fan, [facility] BASIC METABOLIC PANEL 2020-09-22 21:08:00 Fan, [facility] HC COMPLETE BLD COUNT 2020-09-22 21:08:00 Fan, [facility] W/AUTO DIFF ESTIMATED GFR 2020-09-22 21:08:00 Fan, [facility] [employer] Ho spital POC GLUCOSE 2020-09-22 17:41:00 Fan, [facility] 2020-09-22 14:09:00 Fan, [facility] [employer] Ho spital [id number] TACROLIMUS LEVEL, 2020-09-22 11:39:00 Fan, [facility] RANDOM POC GLUCOSE 2020-09-22 03:09:00 [facility], [facility] 2020-09-21 23:11:00 Fan, [facility] sp[facility] POC GLUCOSE 2020-09-21 18:37:00 Fan, [facility] spital POC GLUCOSE 2020-09-21 14:16:00 Fan, [facility] spital FK506 TACROLIMUS LEVEL, 2020-09-21 11:42:00 Fan, [facility] RANDOM POC GLUCOSE 2020-09-21 03:07:00 Fan, [place] [facility] POC GLUCOSE 2020-09-20 23:47:00 Fan, [place] [facility] POC GLUCOSE 2020-09-20 17:44:00 Fan, [place] [facility] POC GLUCOSE 2020-09-20 14:52:00 Fan, [place] [facility] POC GLUCOSE 2020-09-20 13:27:00 Fan, [place] [facility] FK506 TACROLIMUS LEVEL, 2020-09-20 11:30:00 Fan, [facility] RANDOM POC GLUCOSE 2020-09-20 03:32:00 Fan, [place] [facility] POC GLUCOSE 2020-09-20 03:07:00 Fan, [place] [facility] POC GLUCOSE 2020-09-19 23:19:00 Fan, [place] [facility] POC GLUCOSE 2020-09-19 17:14:00 Fan, [place] [facility] POC GLUCOSE 2020-09-19 13:49:00 Fan, [place] [facility] CRYPTOCOCCAL ANTIGEN 2020-09-19 11:00:00 [facility]506 TACROLIMUS LEVEL, 2020-09-19 11:00:00 Fan, [facility] RANDOM BASIC METABOLIC PANEL 2020-09-19 11:00:00 [facility], [facility] 2020-09-19 11:00:00 Fan, Ana Laura [facility] POC GLUCOSE 2020-09-19 03:07:00 Fan, [place] [facility] POC GLUCOSE 2020-09-18 23:33:00 Fan, [place] [facility] CRYPTOCOCCAL ANTIGEN 2020-09-18 21:40:[address] [facility] SCREEN POC GLUCOSE 2020-09-18 17:51:00 Fan, [place] [facility] POC GLUCOSE 2020-09-18 14:34:00 Fan, Ana Laura [facility] FK506 TACROLIMUS LEVEL, 2020-09-18 12:00:00 Fan, [facility] RANDOM BASIC METABOLIC PANEL 2020-09-18 12:00:00 Fan, [facility] HC COMPLETE BLD COUNT 2020-09-18 12:00:00 Fan, [facility] W/AUTO DIFF ESTIMATED GFR 2020-09-18 12:00:00 Fan, Ana Laura [facility] POC GLUCOSE 2020-09-18 03:13:00 Fan, Ana Laura [facility] POC GLUCOSE 2020-09-17 23:24:00 Fan, Ana Laura [facility] ECG 12-LEAD 2020-09-17 23:02:11 Inder Bhat Ho spital POC GLUCOSE 2020-09-17 17:29:00 Fan, Ana Laura [facility] POC GLUCOSE 2020-09-17 13:31:00 Fan, Ana Laura [facility] FK506 TACROLIMUS LEVEL, 2020-09-17 10:51:00 Chacho Grijalva [facility] RANDOM HC COMPLETE BLD COUNT 2020-09-17 10:51:00 Fan, [facility] W/AUTO DIFF BASIC METABOLIC PANEL 2020-09-17 10:51:00 Fan, [facility] ESTIMATED GFR 2020-09-17 10:51:00 Fan, Ana Laura [facility] POC GLUCOSE 2020-09-17 02:41:00 Fan, Ana Laura [facility] POC GLUCOSE 2020-09-16 23:25:00 Fan, Ana Laura [facility] POC GLUCOSE 2020-09-16 18:48:00 Fan, Ana Laura [facility] POC GLUCOSE 2020-09-16 13:44:00 Fan, Ana Laura [facility] FK506 TACROLIMUS LEVEL, 2020-09-16 11:45:00 Chacho Grijalva [facility] RANDOM CBC WITH PLATELET AND 2020-09-16 11:45:00 Fan, [facility] DIFFERENTIAL BASIC METABOLIC PANEL 2020-09-16 11:45:00 Fan, [facility] ESTIMATED GFR 2020-09-16 11:45:00 Fan, Ana Laura [facility] MANUAL DIFFERENTIAL 2020-09-16 11:45:00 [facility] POC GLUCOSE 2020 23:44:00 Fan, Ana Laura [facility] ENTERIC VIRAL PANEL 2020 23:24:00 [facility] ENTERIC BACTERIAL PANEL 2020 23:24:00 [facility], [facility] ENTERIC PARASITIC PANEL 2020 23:24:00 [facility], [facility] URINE CULTURE 2020 22:32:00 Chel Gonzalez spital POC GLUCOSE 2020 21:49:00 Fan, [facility] POC GLUCOSE 2020 17:57:00 Fan, [facility] URINALYSIS SCREEN AND 2020 17:32:00 Chel Gonzalez [facility] MICROSCOPY, WITH REFLEX TO CULTURE POC GLUCOSE 2020 16:07:00 Lauryn, [facility] POC GLUCOSE 2020 13:38:00 Lauryn, [facility] spital FK506 TACROLIMUS LEVEL, 2020 10:46:00 [facility] WITH PLATELET AND 2020 10:46:00 [facility] DIFFERENTIAL MANUAL DIFFERENTIAL 2020 10:46:00 [facility] BASIC METABOLIC PANEL 2020 10:00:00 [facility] ESTIMATED GFR 2020 10:00:[address] [facility] POC GLUCOSE 2020 01:28:[address] [facility] POC GLUCOSE 2020-09-14 23:23:00 Fan, [facility] POC GLUCOSE 2020-09-14 18:14:00 [facility], [facility] POC GLUCOSE 2020-09-14 14:58:00 Fan, [facility] spital FK506 TACROLIMUS LEVEL, 2020-09-14 10:08:00 Chacho Grijalva [facility] TROUGH CBC WITH PLATELET AND 2020-09-14 10:08:00 [facility] DIFFERENTIAL MANUAL DIFFERENTIAL 2020-09-14 10:08:00 [facility] BASIC METABOLIC PANEL 2020-09-14 10:00:00 [facility] ESTIMATED GFR 2020-09-14 10:00:00 Fan, [place] [facility] POC GLUCOSE 2020-09-14 01:23:00 Fan, [place] [facility] POC GLUCOSE 2020-09-14 00:38:00 Fan, [place] [facility] POC GLUCOSE 2020-09-13 18:44:00 Fan, [place] [facility] POC GLUCOSE 2020-09-13 14:18:00 Fan, [place] [facility] FK506 TACROLIMUS LEVEL, 2020-09-13 10:40:[address] Nancyogvera [facility] TROUGH HC COMPLETE BLD COUNT 2020-09-13 10:40:00 Fan, [facility] W/AUTO DIFF BASIC METABOLIC PANEL 2020-09-13 10:40:00 Fan, [facility] ESTIMATED GFR 2020-09-13 10:40:00 Fan, Ana Laura [facility] POC GLUCOSE 2020-09-13 02:46:00 Fan, [place] [facility] POC GLUCOSE 2020-09-12 23:41:00 Fan, [place] [facility] BASIC METABOLIC PANEL 2020-09-12 19:00:00 Fan, [facility] HC COMPLETE BLD COUNT 2020-09-12 19:00:00 Fan, [facility] W/AUTO DIFF ESTIMATED GFR 2020-09-12 19:00:00 Fan, Ana Laura [facility] POC GLUCOSE 2020-09-12 17:47:00 Fan, [place] [facility] POC GLUCOSE 2020-09-12 13:46:00 Fan, Ana Laura [facility] FK506 TACROLIMUS LEVEL, 2020-09-12 10:51:00 Chacho Grijalva [facility] TROUGH POC GLUCOSE 2020-09-12 01:29:00 Fan, [place] [facility] POC GLUCOSE 2020-09-12 00:03:00 Fan, [place] [facility] POC GLUCOSE 2020-09-11 18:51:00 Fan, [place] [facility] POC GLUCOSE 2020-09-11 14:09:00 Fan, Ana Laura [facility] FK506 TACROLIMUS LEVEL, 2020-09-11 10:22:00 Chacho Grijalva [facility] TROUGH CBC WITH PLATELET AND 2020-09-11 10:22:00 Fan, [facility] DIFFERENTIAL BASIC METABOLIC PANEL 2020-09-11 10:22:00 Fan, [facility] ESTIMATED GFR 2020-09-11 10:22:00 Fan, [facility] MANUAL DIFFERENTIAL 2020-09-11 10:22:00 Fan, [facility] POC GLUCOSE 2020-09-11 02:33:00 Fan, [place] [facility] POC GLUCOSE 2020-09-10 22:54:00 Fan, [place] [facility] POC GLUCOSE 2020-09-10 17:59:00 Fan, [place] [facility] POC GLUCOSE 2020-09-10 14:09:00 Fan, [facility] sp[facility] FK506 TACROLIMUS LEVEL, 2020-09-10 11:08:[facility] CBC WITH PLATELET AND 2020-09-10 11:08:00 Fan, [facility] DIFFERENTIAL BASIC METABOLIC PANEL 2020-09-10 11:08:00 Fan, [facility] ESTIMATED GFR 2020-09-10 11:08:00 Fan, [facility] MANUAL DIFFERENTIAL 2020-09-10 11:08:00 Fan, [facility] POC GLUCOSE 2020-09-10 02:29:00 Fan, [place] [facility] POC GLUCOSE 2020-09-09 23:28:00 Fan, [place] [facility] POC GLUCOSE 2020-09-09 18:13:00 Fan, [place] [facility] POC GLUCOSE 2020-09-09 14:13:00 Fan, [facility] sp[facility] FK506 TACROLIMUS LEVEL, 2020-09-09 11:15:00 [facility] TROUGH [place] BASIC METABOLIC PANEL 2020-09-09 11:15:00 Fan, [facility] HC COMPLETE BLD COUNT 2020-09-09 11:15:00 Fan, [facility] W/AUTO DIFF ESTIMATED GFR 2020-09-09 11:15:00 Fan, Ana Laura [facility] POC GLUCOSE 2020-09-09 02:57:00 Fan, Ana Laura [facility] POC GLUCOSE 2020-09-08 21:53:00 Fan, Ana Laura [facility] COVID-19 QUALITATIVE 2020-09-08 18:22:00 FanAna Laura [facility] RT-PCR POC GLUCOSE 2020-09-08 17:16:00 Fan, Ana Laura Mcg[facility] spital FK506 TACROLIMUS LEVEL, 2020-09-08 14:43:00 [facility] TROUGH [place] BASIC METABOLIC PANEL 2020-09-08 14:43:00 Fan, [facility] HC COMPLETE BLD COUNT 2020-09-08 14:43:00 [facility], [facility] W/AUTO DIFF OSMOLALITY, SERUM 2020-09-08 14:43:00 [facility] GFR 2020-09-08 14:43:00 [facility] 2020-09-08 14:05:00 Fan, Ana Laura [facility] sp[facility] POC GLUCOSE 2020-09-07 22:14:00 Fan, Ana Laura [facility] POC GLUCOSE 2020-09-07 17:03:00 Fan, Ana Laura [facility] POC GLUCOSE 2020-09-07 13:18:00 Fan, Ana Laura [facility] spital FK506 TACROLIMUS LEVEL, 2020-09-07 10:30:00 [facility] TROUGH [place] BASIC METABOLIC PANEL 2020-09-07 10:30:00 Fan, [facility] HC COMPLETE BLD COUNT 2020-09-07 10:30:00 Fan, [facility] W/AUTO DIFF ESTIMATED GFR 2020-09-07 10:30:00 Fan, Ana Laura [facility] POC GLUCOSE 2020-09-07 02:57:00 Fan, Ana Laura Mcg[facility] spital US RENAL TRANSPLANT 2020-09-07 02:01:00 Chacho Grijalva [facility] DOPPLER POC GLUCOSE 2020-09-06 22:59:00 Fan, Ana Laura [facility] POC GLUCOSE 2020-09-06 17:16:00 Fan, Ana Laura [facility] POC GLUCOSE 2020-09-06 13:35:00 Fan, Ana Laura Michaud spital FK506 TACROLIMUS LEVEL, 2020-09-06 12:25:00 [facility] TROUGH [place] HC COMPLETE BLD COUNT 2020-09-06 12:25:00 Fan [facility] W/AUTO DIFF BASIC METABOLIC PANEL 2020-09-06 10:00:00 Fan [facility] ESTIMATED GFR 2020-09-06 10:00:00 Fan, Ana Laura Mcg[facility] spital POC GLUCOSE 2020-09-05 23:25:00 Fan, Ana Laura Michaud spital MRI BRAIN WO CONTRAST 2020-09-05 18:40:00 Lauryn [facility] POC GLUCOSE 2020-09-05 17:57:00 Fan, Ana Laura Michaud spital CT CHEST WO CONTRAST 2020-09-05 16:38:12 [facility] POC GLUCOSE 2020-09-05 13:59:00 Fan, [facility] CRYPTOCOCCAL ANTIGEN 2020-09-05 11:10:[address] [facility] SCREEN BASIC METABOLIC PANEL 2020-09-05 11:10:00 Lauryn [facility] FK506 TACROLIMUS LEVEL, 2020-09-05 11:10:00 [facility] TROUGH [place] ESTIMATED GFR 2020-09-05 11:10:00 Chacho Grijalva [facility] POC GLUCOSE 2020-09-05 02:10:00 Fan, Ana Laura [facility] POC GLUCOSE 2020-09-04 22:39:00 Fan, Ana Laura [facility] POC GLUCOSE 2020-09-04 20:07:00 Fan, Ana Laura [facility] POC GLUCOSE 2020-09-04 18:58:00 Fan, [place] [facility] POC GLUCOSE 2020-09-04 14:09:00 Fan, [facility] CRYPTOCOCCAL ANTIGEN 2020-09-04 12:00:00 Adrian Cornejo [facility] SCREEN BASIC METABOLIC PANEL 2020-09-04 12:00:00 Fan, [facility] VANCOMYCIN LEVEL, RANDOM 2020-09-04 12:00:00 Lauryn [facility] HC COMPLETE BLD COUNT 2020-09-04 12:00:00 Lauryn [facility] W/AUTO DIFF FK506 TACROLIMUS LEVEL, 2020-09-04 12:00:00 [facility] [place] HIV AG/AB COMBINATION 2020-09-04 12:00:00 Inder Bhat [facility] CD 4 SUBSET 2020-09-04 12:00:00 Inder Bhat spital ESTIMATED GFR 2020-09-04 12:00:00 NancyChacho gamez [facility] POC GLUCOSE 2020-09-04 01:54:00 [facility]UCOSE 2020-09-03 23:25:00 Fan [facility] spital POC GLUCOSE 2020-09-03 17:53:[address] [facility] XR CHEST 1 VW PORTABLE 2020-09-03 14:50:00 Harley Simmons [facility] POC GLUCOSE 2020-09-03 14:05:[address] [facility] HC COMPLETE BLD COUNT 2020-09-03 11:47:00 Lauryn [facility] W/AUTO DIFF BASIC METABOLIC PANEL 2020-09-03 11:47:00 Lauryn [facility] ESTIMATED GFR 2020-09-03 11:47:00 [facility] AEROBIC CULTURE 2020-09-03 05:54:00 Rodrigue [facility] Rishi FUNGUS SMEAR 2020-09-03 05:54:00 [facility] spital ANAEROBIC CULTURE 2020-09-03 05:54:00 [facility] 2020-09-03 05:54:[address] [facility] sp[facility] LEGIONELLA URINARY ANTIGEN 2020-09-03 04:45:00 Inder Bhat [facility] STREPTOCOCCUS PNEUMONIAE 2020-09-03 04:45:00 Inder Bhat [facility] URINARY ANTIGEN POC GLUCOSE 2020-09-03 03:06:00 Ana Laura Awad spital POC GLUCOSE 2020-09-02 23:23:00 Ana Laura Awad spital VARICELLA ZOSTER BY PCR 2020-09-02 22:47:00 [facility] L[facility]UN[facility] 2020-09-02 22:17:00 [facility] CSF CULTURE 2020-09-02 22:15:00 Inder Bhat spital FUNGUS CULTURE 2020-09-02 22:15:00 Inder Bhat spital CRYPTOCOCCAL ANTIGEN 2020-09-02 22:15:00 [facility] SCREEN GRAM STAIN 2020-09-02 22:15:00 Inder Bhat spital CYTOMEGALOVIRUS BY PCR 2020-09-02 22:15:00 [facility] CSF CELL COUNT WITH 2020-09-02 22:15:00 [facility] DIFFERENTIAL PROTEIN, CSF 2020-09-02 22:15:00 [facility] GLUCOSE LEVEL, CSF 2020-09-02 22:15:00 [facility] VDRL, CSF 2020-09-02 22:15:00 Inder Bhat spital VARICELLA ZOSTER BY PCR 2020-09-02 22:15:00 [facility] [employer] CULTURE 2020-09-02 21:15:00 Inder Bhat spital POC GLUCOSE 2020-09-02 21:13:00 Ana Laura Awad spital CT HEAD WO CONTRAST 2020-09-02 20:11:07 [facility] POC GLUCOSE 2020-09-02 18:17:00 Ana Laura Awad Ho spital POC GLUCOSE 2020-09-02 13:39:00 Ana Laura Awad spital BASIC METABOLIC PANEL 2020-09-02 09:58:00 [facility] ESTIMATED GFR 2020-09-02 09:58:00 Ana Laura Awad spital CBC WITH PLATELET AND 2020-09-02 09:00:00 [facility] DIFFERENTIAL POC GLUCOSE 2020-09-02 02:38:00 Ana Laura Awad spital POC GLUCOSE 2020-09-01 23:06:00 Ana Laura Awad spital POC GLUCOSE 2020-09-01 18:27:00 [facility]SE 2020-09-01 14:01:00 [facility] [id number]-2 TOTAL 2020-09-01 09:05:00 Issa Kenyon [facility] FK506 TACROLIMUS LEVEL, 2020-09-01 09:05:00 [facility] RANDOM HC COMPLETE BLD COUNT 2020-09-01 09:05:00 [facility] W/AUTO DIFF COMPREHENSIVE METABOLIC 2020-09-01 09:05:00 [facility] PANEL ESTIMATED GFR 2020-09-01 09:05:00 Litzy Pena [facility] Plan of Care Planned Activity Planned Date Details Comments Source Future Scheduled 2021-08-31 Hepatitis C screening [facility] Test 11:36:52 (procedure) [code = 310467582] Future Scheduled 2021-08-31 Screening for [facility] Test 11:36:52 malignant neoplasm of cervix (procedure) [code = 957788783] Future Scheduled 2021-08-31 COLONOSCOPY SCREENING [facility] Test 11:36:52 [code = COLONOSCOPY SCREENING] Future Scheduled 2021-08-31 SHINGLES VACCINES Method [facility] Test 11:36:52 (#1) [code = SHINGLES VACCINES (#1)] Future Scheduled 2021-08-31 BREAST CANCER [facility] Test 11:36:52 SCREENING [code = BREAST CANCER SCREENING] Future Scheduled 2021-08-31 DIABETIC FOOT EXAM [facility] Test 11:36:52 [code = DIABETIC FOOT EXAM] Future Scheduled 2021-08-31 INFLUENZA VACCINE [facility] Test 11:36:52 [code = INFLUENZA VACCINE] Future Scheduled 2021-08-31 COVID-19 VACCINE (3 - [facility] Test 11:36:52 Moderna risk 4-dose series) [code = COVID-19 VACCINE (3 - Moderna risk 4-dose series)] Future Scheduled 2021-08-31 DIABETES: RETINAL EYE Me [facility] Test 11:36:52 EXAM [code = DIABETES: RETINAL EYE EXAM] Encounters Start End Encounter Admission Attending Care Care Encounter Source Date/Time Date/Time Type Type Clinicians Facility Department ID 2021-10-01 Outpatient Ethan, Na STLMLC STLMLC [id number] [facility] 07:26[facility]00 [facility] 2021-09-28 Outpatient Long, Na STLMLC STLMLC [id number] 08:20[facility]00 [facility] 2021-08-26 Outpatient Ethan, Na STLMLC STLMLC [id number] 12:43:39 [id number] [facility] 2021-08-26 Outpatient Long, Na STLMLC STLMLC [id number] 12:21:24 [id number] [facility] 2021-08-26 Outpatient Long, Na STLMLC STLMLC [id number] 12:20:42 [id number] [facility] 2021-08-26 Outpatient Ethan, Na STLMLC STLMLC [id number] 12:17:55 [id number] [facility] 2021-08-26 Outpatient Ethan, Na STLMLC STLMLC [id number] 12:17:20 [id number] [facility] 2021-08-26 Outpatient Long, Na STLMLC STLMLC [id number] 11:57:36 [id number] [facility] 2021-08-26 Outpatient Long, Na STLMLC STLMLC [id number] 11:56:47 [id number] [facility] 2021-08-26 Outpatient Long, Na STLMLC STLMLC [id number] 11:31:59 [id number] [facility] 2021-08-26 Outpatient Long, Na STLMLC STLMLC [id number] 11:31:40 [id number] [facility] 2021-08-26 Outpatient Long, Na STLMLC STLMLC [id number] 11:27:44 [id number] [facility] 2021-08-26 Outpatient Long, Na STLMLC STLMLC [id number] 11:27:14 [id number] [facility] 2021-08-26 Outpatient Long, Na STLMLC STLMLC [id number] 11:22:57 [id number] [facility] 2021-08-26 Outpatient Long, Na STLMLC STLMLC [id number] 11:13:26 [id number] [facility] 2021-10-09 2021-10-27 [facility] [id number] [place] 00:00:00 00:00:00 MAHA [address] 2021-09-30 2021-09-30 ambulatory [facility]MLC [facility] [id number] [facility] 2021-09-10 2021-09-10 ambulatory [facility]LMLC [facility]ML[facility] [id number] [facility] 2021-08-25 2021-08-29 [facility] MAGNOLIA GONZALEZ 1.2.840.1 [id number] [place] 00:00:00 00:00:00 Encounter [id number] .3.639006 .8 2021-08-28 2021-08-28 Anesthesia Traylor, 1.2.840.1 [id number] Methodi 23:59:59 23:59:59 Event Rishi Gil 20513.1.[address] 3.430.2.7 Hospit a .3.382676 l .8 2021-08-28 2021-08-28 Anesthesia Traylor, 1.2.840.1 [id number] Methodi 23:59:59 23:59:59 Event Rishi Gil 24113.1.[address] 3.430.2.7 Hospit a .3.867158 l .8 2021-08-28 2021-08-28 Orders Nieves, 1.2.840.1 [id number] Methodi 00:00:00 00:00:00 Only Uzma 09157.1.[address] 3.430.2.7 Hospit a .3.348536 l .8 2021-08-25 2021-08-25 Travel 1.2.840.1 1.2.918.952 [id number] Methodi 00:00:00 00:00:[address] 3.430.2.7 0.2.7.3.698 Ho spita .3.219374 084.8 l .8 2021-08-20 2021-08-20 ambulatory [facility]LMLC [facility]C [id number] [facility]00 [facility] 2021-07-23 2021-07-23 ambulatory STLMLC [facility]LMLC [id number] [facility] 00[facility]00 [facility] 2021-07-07 2021-07-07 Telephone Parveenmichael, 1.2.840.1 [id number] Methodi 14:30:00 14:45:00 Consult Souleymane Ocampo 81780.1.[address] 3.430.2.7 Hospit a .3.272806 l .8 2021-07-06 2021-07-06 Travel 1.2.840.1 1.2.824.569 [id number] Methodi 00:00:00 00:00:[address] 3.430.2.7 0.2.7.3.698 Ho spita .3.497728 084.8 l .8 2021-07-01 2021-07-01 ambulatory STLMLC STLMLC [id number] [facility] 2021-06-24 2021-06-24 Documentat Artur, 1.2.840.1 [id number] Methodi 00:00:00 00:00:00 tc Gambino 32101.1.[address] 3.430.2.7 Hospit a .3.175995 l .8 2021-06-23 2021-06-23 Documentat Artur, 1.2.840.1 [id number] Methodi 00:00:00 00:00:00 tc Gambino [address]45.1.[address] 3.430.2.7 Hospit a .3.040100 l .8 2021-04-22 2021-04-22 Refill Lynn, 1.2.840.1 [id number] Methodi 00:00:00 00:00:[address] 3.430.2.7 Hospit a .3.892790 l .8 2021-04-07 2021-04-07 Office Orion, 1.2.840.1 [id number] Methodi 13:22:43 13:37:43 Visit Souleymanekenny Ocampo 23939.1.[address] 3.430.2.7 Hospit a .3.965325 l .8 2021-04-07 2021-04-07 Travel 1.2.840.1 1.2.115.704 0212 828751 Methodi 00:00:00 00:00:[address] 3.430.2.7 0.2.7.3.698 Ho spita .3.692423 084.8 l .8 2021-02-18 2021-02-18 Telemedici Lynn, 1.2.840.1 [id number] 402 [id number] Methodi 10:16:48 11:16:49 ne Onelia 85664.1.[address] 3.430.2.7 Hospit a .3.005441 l .8 2021-02-16 2021-02-16 Lab Lincoln, 1.2.840.1 [id number] 146149 3097 Methodi 08:29:31 08:34:[address] Sonu 3.430.2.7 Hospit a .3.841516 l .8 2021-02-16 2021-02-16 Telephone Minerva, 1.2.840.1 [id number] 21 [id number] Methodi 00:00:00 00:00:[address] 3.430.2.7 Hospit a .3.905090 l .8 2021-02-16 2021-02-16 Travel 1.2.840.1 1.2.351.926 0182 686975 Methodi 00:00:00 00:00:[address] 3.430.2.7 0.2.7.3.698 Ho spita .3.425522 084.8 l .8 2021-02-11 2021-02-11 Refkeshia Siddiqui, 1.2.840.1 [id number] 104549 1518 Methodi 00:00:00 00:00:[address] 3.430.2.7 Hospit a .3.434534 l .8 2021-02-11 2021-02-11 Refkeshia Siddiqui, 1.2.840.1 [id number] 508722 7703 Methodi 00:00:00 00:00:[address] 3.430.2.7 Hospit a .3.992037 l .8 2021-02-09 2021-02-09 Office Tanya, 1.2.840.1 [id number] 753491 8189 Methodi 07:42:22 08:03:19 Visit Jus 56031.1.[address] Penelope 3.430.2.7 Hospit a .3.753853 l .8 2021-02-09 2021-02-09 Travel 1.2.840.1 1.2.650.665 1334 952924 Methodi 00:00:00 00:00:[address] 3.430.2.7 0.2.7.3.698 Ho spita .3.285419 084.8 l .8 2021-01-28 2021-01-28 Telephone Desiree 1.2.840.1 [id number] Methodi 00:00:00 00:00:00 , Kiley 89642.1.[address] 3.430.2.7 Hospit a .3.111078 l .8 2021-01-27 2021-01-27 Hospital Sharifa Yepez 1.2.840.1 [id number] 237 [id number] Methodi 06:00:00 13:37:[address] 3.430.2.7 Hospit a .3.734562 l .8 2021-01-27 2021-01-27 Surgery Sharifa Yepez 1.2.840.1 [id number] 2100 258742 Methodi 10:00:00 12:15:[address] 3.430.2.7 Hospit a .3.751884 l .8 2021-01-27 2021-01-27 Anesthesia Paola Lobato E. 1.2.840 .1 [id number] Methodi 10:49:00 12:11:00 Event Demetra Short 34320.1.[address] 3.430.2.7 Hospit a .3.152786 l .8 2021-01-26 2021-01-26 Travel 1.2.840.1 1.2.875.920 1468 030833 Methodi 00:00:00 00:00:[address] 3.430.2.7 0.2.7.3.698 Ho spita .3.460452 084.8 l .8 2021-01-22 2021-01-22 [facility] Sharifa Yepez 1.2.840.1 [id number] 427 [id number] Methodi 14:45:00 23:59:[address] 3.430.2.7 Hospit a .3.167141 l .8 2021-01-22 2021-01-22 Travel 1.2.840.1 1.2.490.502 6658 [id number] Methodi 00:00:00 00:00:[address] 3.430.2.7 0.2.7.3.698 Ho spita .3.102428 084.8 l .8 2021-01-21 2021-01-21 Lab Sharifa Yepez 1.2.840.1 [id number] 2100 872587 Methodi 14:27:32 14:42:[address] 3.430.2.7 Hospit a .3.652477 l .8 2021-01-21 2021-01-21 Office Tanya, 1.2.840.1 [id number] 4324 Methodi 13:08:26 14:20:16 Visit Jus 69661.1.[address] Penelope 3.430.2.7 Hospit a .3.859500 l .8 2021-01-21 2021-01-21 Telephone Sharifa Yepez 1.2.840.1 [id number] 21 [id number] Methodi 00:00:00 00:00:[address] 3.430.2.7 Hospit a .3.740764 l .8 2021-01-21 2021-01-21 Prep for [place] 1.2.840.1 [id number] 2 [id number] Methodi 00:00:00 00:00:00 Surgery , Kiley 19105.1.[address] 3.430.2.7 Hospit a .3.604523 l .8 2021-01-21 2021-01-21 Orders Connie, 1.2.840.1 [id number] 748 [id number] Methodi 00:00:00 00:00:00 Only Sophia 01564.1.[address] 3.430.2.7 Hospit a .3.296982 l .8 2021-01-21 2021-01-21 Orders [place] 1.2.840.1 [id number] 21 [id number] Methodi 00:00:00 00:00:00 Only , Kiley 58271.1.[address] 3.430.2.7 Hospit a .3.694256 l .8 2021-01-21 2021-01-21 Travel 1.2.840.1 1.2.917.309 9959 672559 Methodi 00:00:00 00:00:[address] 3.430.2.7 0.2.7.3.698 Ho spita .3.134765 084.8 l .8 2021-01-20 2021-01-20 Telephone Orion, 1.2.840.1 [id number] Methodi 13:56:10 14:11:10 Consult Souleymane Terrence 58471.1.[address] 3.430.2.7 Hospit a .3.782530 l .8 2021-01-20 2021-01-20 Telephone Cornelio Mckeon 1.2.840.1 [id number] Methodi 00:00:00 00:00:[address] 3.430.2.7 Hospit a .3.733683 l .8 2021-01-19 2021-01-19 Office Jairnils, 1.2.840.1 [id number] 5028 Methodi 09:31:38 09:51:38 Visit Onelia 53607.1.[address] 3.430.2.7 Hospit a .3.819540 l .8 2021-01-19 2021-01-19 Telephone Minerva, 1.2.840.1 [id number] Methodi 00:00:00 00:00:[address] 3.430.2.7 Hospit a .3.207240 l .8 2021-01-19 2021-01-19 Travel 1.2.840.1 1.2.532.282 8155 073067 Methodi 00:00:00 00:00:[address] 3.430.2.7 0.2.7.3.698 Ho spita .3.112531 084.8 l .8 2021-01-15 2021-01-15 Telephone Stanley, 1.2.840.1 [id number] 2099 124527 Methodi 00:00:00 00:00:[address] 3.430.2.7 Hospit a .3.849588 l .8 2020-12-24 2020-12-24 Lab Abdellatif, 1.2.840.1 [id number] Methodi 07:21:53 07:26:[address]448.1.[address] 3.430.2.7 Hospit a .3.268134 l .8 2020-12-24 2020-12-24 Lab Sadhu, 1.2.840.1 [id number] 015207 6284 Methodi 07:20:47 07:25:[address] 3.430.2.7 Hospit a .3.366780 l .8 2020-12-24 2020-12-24 Telephone Stanley, 1.2.840.1 [id number] 2099 [id number] Methodi 00:00:00 00:00:[address] 3.430.2.7 Hospit a .3.510608 l .8 2020-12-24 2020-12-24 Travel 1.2.840.1 1.2.466.782 7203 196356 Methodi 00:00:00 00:00:[address] 3.430.2.7 0.2.7.3.698 Ho spita .3.455156 084.8 l .8 2020-12-17 2020-12-17 Telephone Abdellatif, 1.2.840.1 [id number] Methodi 00:00:00 00:00:[address] 3.430.2.7 Hospit a .3.453891 l .8 2020-11-28 2020-11-28 Orders Readeaux, 1.2.840.1 [id number] 2099 [id number] Methodi 00:00:00 00:00:00 Only Billie 93735.1.[address] 3.430.2.7 Hospit a .3.725459 l .8 2020-11-25 2020-11-25 Telephone Orion, 1.2.840.1 [id number] Methodi 07:57:52 08:12:52 Consult Souleymane Ocampo 11573.1.[address] 3.430.2.7 Hospit a .3.892316 l .8 2020-11-25 2020-11-25 Telephone Cisco, 1.2.840.1 [id number] 2099 129198 Methodi 00:00:00 00:00:00 [address] CashTorey 32545.1.[address] 3.430.2.7 Hospit a .3.699994 l .8 2020-11-24 2020-11-24 Travel 1.2.840.1 1.2.690.773 8804 186053 Methodi 00:00:00 00:00:[address] 3.430.2.7 0.2.7.3.698 Ho spita .3.040829 084.8 l .8 2020-11-12 2020-11-12 Office [facility], 1.2.840.1 [id number] 1157 Methodi 14:11:11 14:31:11 Visit Onelia 15931.1.[address] Eng 3.430.2.7 Hospit a .3.586200 l .8 2020-11-12 2020-11-12 Travel 1.2.840.1 1.2.925.910 7620 568810 Methodi 00:00:00 00:00:[address] 3.430.2.7 0.2.7.3.698 Ho spita .3.354189 084.8 l .8 2020-11-12 2020-11-12 Outpatient [facility] [id number] [facility] ent Clinics 2020-11-10 2020-11-10 Lab Lincoln, 1.2.840.1 [id number] 2479 Methodi 09:00:31 09:05:[address] Sonu 3.430.2.7 Hospit a .3.794711 l .8 2020-11-10 2020-11-10 Travel 1.2.840.1 1.2.583.365 8718 981707 Methodi 00:00:00 00:00:[address] 3.430.2.7 0.2.7.3.698 Ho spita .3.849607 084.8 l .8 2020-11-05 2020-11-05 Telephone Zach, 1.2.840.1 [id number] 2100 [id number] Methodi 00:00:00 00:00:00 Darline Roach 06380.1.[address] 3.430.2.7 Hospit a .3.733558 l .8 2020-11-03 2020-11-03 Refkeshia Siddiqui, 1.2.840.1 [id number] 7623 Methodi 00:00:00 00:00:[address] 3.430.2.7 Hospit a .3.239264 l .8 2020-10-28 2020-10-28 Telephone Orion, 1.2.840.1 [id number] Methodi 14:38:27 14:53:27 Consult Souleymane Ocampo 85550.1.[address] 3.430.2.7 Hospit a .3.246856 l .8 2020-10-27 2020-10-27 Lab Lincoln, 1.2.840.1 [id number] 2217 Methodi 07:45:13 07:50:[address] Sonu 3.430.2.7 Hospit a .3.737706 l .8 2020-10-27 2020-10-27 Lab Orion, 1.2.840.1 [id number] 21 [id number] Methodi 07:15:48 07:20:48 Sou[address] Ocampo [address]109.1.[address] 3.430.2.7 Hospit a .3.352945 l .8 2020-10-27 2020-10-27 Refill Siddiqui, 1.2.840.1 [id number] 034276 6052 Methodi 00:00:00 00:00:[address] 3.430.2.7 Hospit a .3.146228 l .8 2020-10-27 2020-10-27 Refill Siddiqui, 1.2.840.1 [id number] 6160 Methodi 00:00:00 00:00:[address] 3.430.2.7 Hospit a .3.258714 l .8 2020-10-27 2020-10-27 Travel 1.2.840.1 1.2.816.768 6902 145123 Methodi 00:00:00 00:00:[address] 3.430.2.7 0.2.7.3.698 Ho spita .3.443952 084.8 l .8 2020-10-24 2020-10-24 Telephone Dilcia, 1.2.840.1 [id number] 400 [id number] Methodi 00:00:00 00:00:[address] 3.430.2.7 Hospit a .3.525838 l .8 2020-10-22 2020-10-22 Refill Lynn, 1.2.840.1 [id number] 721312 0266 Methodi 00:00:00 00:00:[address] 3.430.2.7 Hospit a .3.883100 l .8 2020-10-22 2020-10-22 Telephone Stanley, 1.2.840.1 [id number] 2099 149963 Methodi 00:00:00 00:00:[address] 3.430.2.7 Hospit a .3.122906 l .8 2020-10-14 2020-10-14 Telephone Orion, 1.2.840.1 [id number] Methodi 14:44:11 14:59:11 Consult Souleymane Ocampo 09142.1.[address] 3.430.2.7 Hospit a .3.525410 l .8 2020-10-13 2020-10-13 Lab Stark, 1.2.840.1 [id number] 8588 Methodi 07:00:34 07:05:[address] Sonu 3.430.2.7 Hospit a .3.778458 l .8 2020-10-13 2020-10-13 Refkeshia Siddiqui, 1.2.840.1 [id number] 4292 Methodi 00:00:00 00:00:[address] 3.430.2.7 Hospit a .3.466127 l .8 2020-10-13 2020-10-13 Travel 1.2.840.1 1.2.315.844 7326 666446 Methodi 00:00:00 00:00:[address] 3.430.2.7 0.2.7.3.698 Ho spita .3.745324 084.8 l .8 2020-10-06 2020-10-06 Outpatient [facility] [id number] [facility] 2020-10-05 2020-10-05 Travel 1.2.840.1 1.2.901.435 3801 666456 Methodi 00:00:00 00:00:[address] 3.430.2.7 0.2.7.3.698 Ho spita .3.831213 084.8 l .8 2020-10-03 2020-10-03 Marcy Siddiqui 1.2.840.1 [id number] 1654 Methodi 00:00:00 00:00:[address] 3.430.2.7 Hospit a .3.787756 l .8 2020-09-30 2020-09-30 Telephone [place], 1.2.840.1 [id number] 2100 025733 Methodi 10:21:15 10:36:15 Consult Tre 11287.1.[address] Sonu 3.430.2.7 Hospit a .3.622988 l .8 2020-09-30 2020-09-30 Travel 1.2.840.1 1.2.647.499 8168 448571 Methodi 00:00:00 00:00:[address] 3.430.2.7 0.2.7.3.698 Ho spita .3.314705 084.8 l .8 2020-09-29 2020-09-29 Patient Yuliana Billy 1.2.840.1 [id number] Methodi 00:00:00 00:00:[address] 3.430.2.7 Hospit a .3.675860 l .8 2020-09-26 2020-09-26 Patient Yuliana Billy 1.2.840.1 [id number] 21 [id number] Methodi 00:00:00 00:00:[address] 3.430.2.7 Hospit a .3.510469 l .8 2020-09-26 2020-09-26 Outpatient [facility] [id number] [facility] 2020-09-25 2020-09-25 Patient Yuliana Billy 1.2.840.1 [id number] Methodi 00:00:00 00:00:[address] 3.430.2.7 Hospit a .3.683402 l .8 2020-09-17 2020-09-24 Hospital [facility], 12.840.1 [id number] 52517 79370 Methodi 20:12:00 18:10:00 Encounter Ana Laura 77856.1.[address] 3.430.2.7 Hospit a .3.633566 l .8 2020-09-22 2020-09-22 [facility], 12.840.1 [id number] 0524 Methodi 00:00:00 00:00:00 Only Uzma 65334.1.[address] 3.430.2.7 Hospit a .3.102039 l .8 2020-08-30 2020-09-17 [facility] 1.2.840.1 10 [id number] Methodi 14:06:00 20:03:00 Encounter Ana Laura Awad 71243.1.[address] 3.430.2.7 Hospit a .3.819009 l .8 2020-08-08 2020-08-08 Outpatient [facility] [id number] [facility] 2020-08-06 2020-08-06 Outpatient [facility] [id number] [facility] 2020-08-04 2020-08-04 Outpatient [facility] [id number] [facility] 2020-06-02 2020-06-02 Outpatient [facility] [id number] [facility] 2020-05-22 2020-05-22 Outpatient [facility] [id number] [facility] 2020-03-14 2020-03-14 [facility] [id number] [facility] 16:20:00 16:20:00 [facility] 2020-02-23 2020-02-23 [facility] [address] 17:58:00 17:58:00 t [facility] Medicine Outpati ent Clinics 2020-02-18 2020-02-18 [facility] [address] 08:20:00 08:20:00 t [facility] Medicine Outpati ent Clinics 2020-01-21 2020-01-21 [facility] [id number] 13:00:00 13:00:00 t [facility] Medicine Outpati ent Clinics 2019-12-11 2019-12-11 [facility] [id number] 16:09:00 16:09:00 [facility] [place] [facility] [employer] [facility] Medicine Outpati ent Clinics 2019-12-07 2019-12-07 [facility] [address] 13:40:00 13:40:00 t [facility] [employer] [facility] Medicine Medicine Outpati ent Clinics 2019-12-07 2019-12-07 [facility] [address] 08:06:00 08:06:00 t [facility] [employer] [facility] Medicine Outpati ent Clinics 2019-12-06 2019-12-06 [facility] [address] [facility] 11:59:00 11:59:00 t [facility] Medicine Outpati ent Clinics 2019-10-11 2019-10-11 [facility] [id number] 09:00:00 09:00:00 t [facility] Medicine Outpati ent Clinics Results Test Description Test Time Test Comments Results Result Comments Source SARS-CoV-2 (COVID-19) RNA [Presence] in Respiratory sp ecimen by 2021-10-09 21:15:26 FROYLAN with probe detection Test Item Value Reference Range Interpretation Comme nts SARS-CoV-2 (COVID-19) RNA [Presence] in Respiratory specimen by Not detected FROYLAN with probe detection (test code = 41015-7) Whether patient is employed in a healthcare setting (test code = Un known 96237-6) Whether the patient has symptoms related to condition of interest U nknown (test code = 64828-7) Whether the patient was hospitalized for condition of interest Unkn own (test code = 77578-1) Whether the patient was admitted to intensive care unit (ICU) for U nknown condition of interest (test code = 53659-1) Whether patient resides in a congregate care setting (test code = U nknown 03862-5) status (test code = 32297-8) Unknown Date and time of symptom onset (test code = 65381-5) Unknown POC [id number] 17:26:55 Test Item Value Reference Range Interpretation Comments POC glucose (test code 367 mg/dL 65-99 HH Opera tor Name: Chaim = [id number]) Jorge ID : [id number] Lab Interpretation Abnormal (test code = 63751-5) [facility] [id number] 05:57:42 Test Item Value Reference Range Interpretation Comments Urine culture (test SEE COMMENT Bacteriu polo screen code = 6905659) negative. [facility] [id number] 18:15:13 Test Item Value Reference Range Interpretation Comments Fungus culture No growth Specimen isolate (test after 4 weeks InformationSp ecimen code = 1441) of Source: SinusSp ecimen incubation. [facility]21-[facility]-24 18:12:52 Test Item Value Reference Range Interpretation Comments SUPPLIER NAME (test XMED Oxygen and code = 6415) Medical SUPPLIER PHONE (test [phone] code = 6416) ORDER STATUS (test code Delivery Successful = 6417) DELIVERY NOTE (test code = 6419) REQUESTED DELIVEY DATE 09/22/2020 (test code = 6420) ITEM DESCRIPTION (test Jada An Junior Qty: 1 code = 6423) EXPECTED DELIVERY DATE 09/24/2020 (test code = 6421) ACTUAL DELIVERY DATE 09/24/2020 (test code = 6422) [facility] 12 [id number] 23:54:03 Test Item Value Reference Range Interpretation Comments Ventricular rate (test code = 253) Atrial rate (test code = 255) NE interval (test code = 266) QRSD interval (test code = 260) QT interval (test code = 264) QTC interval (test code = 265) P axis 1 (test code = 267) QRS axis 1 (test code = 268) T wave axis (test code = 270) EKG impression (test Normal sinus code = 273) rhythm-Normal ECG-In automated comparison with ECG of 30-AUG-2020 14:17,-Questionable change in QRS axis- [facility] [id number] 15:06:25 Test Item Value Reference Range Interpretation Comments Anaerobic No anaerobic Specimen culture isolate organisms InformationS pecimen (test code = isolated. Source: SinusSp ecimen 552) Site: [facility]ose [facility] [id number] 13:51:27 Test Item Value Reference Range Interpretation Comments Fungus smear No fungi Specimen (test code = observed. InformationSpec imen Source: 1443) SinusSpecimen S ite: [facility] [id number] 16:45:00 Test Item Value Reference Range Interpretation Comments LAB AP CPT CODE (BEAKER) (test code = 75983 2749) TACROLIMUS [id number] 09:09:00 Test Item Value Reference Range Interpretation Comments TACROLIMUS BLOOD (BEAKER) (test 6.8 ng/mL 10.0-20.0 L code = 657) POCT-GLUCOSE [id number] 07:33:00 Test Item Value Reference Range Interpretation Comments POC-GLUCOSE METER 138 mg/dL 70-110 H TESTED AT [facility] 6720 (BEAKER) (test code = [place] 1538) [address] BASIC METABOLIC [id number] 05:08:00 Test Item Value Reference Range Interpretation [...] PATIEN TS. CBC W/PLT COUNT & AUTO [id number] 04:51:00 Test Item Value Reference Range Interpretation [...] = 432) BASOPHILS RELATIVE PERCENT 0 % ([facility]) (test code = 437) NEUTROPHILS ABSOLUTE COUNT 3.17 K/ L 1.80-8.00 ([facility]) (test code = 670) LYMPHOCYTES ABSOLUTE COUNT 0.45 K/ L 1.48-4.50 L (AKER) (test code = 414) MONOCYTES ABSOLUTE COUNT (BEAKER) 0.50 K/ L 0.00-1.30 (test code = 415) EOSINOPHILS ABSOLUTE COUNT 0.02 K/ L 0.00-0.50 (BEAKER) (test code = 416) BASOPHILS ABSOLUTE COUNT (BEAKER) 0.00 K/ L 0.00-0.20 (test code = 417) 0.00POCT-GLUCOSE [id number] 01:09:00 Test Item Value Reference Range Interpretation Comments POC-GLUCOSE METER 97 mg/dL 70-110 TESTED AT [place] [address] ([facility]) (test code = HARMEET Horn [facility] [address] 1538) POCT-GLUCOSE [id number] 21:30:00 Test Item Value Reference Range Interpretation Comments POC-GLUCOSE METER 424 mg/dL 70-110 HH Notified R Bibiana PILLAI/TESTED ([facility]) (test code = AT [address] 1538) [facility] 7703 0 POCT-GLUCOSE [id number] 17:04:00 Test Item Value Reference Range Interpretation Comments POC-GLUCOSE METER 198 mg/dL 70-110 H TESTED AT [place] [address] ([facility]) (test code = [facility] 1538) [address] POCT-GLUCOSE [id number] 12:51:00 Test Item Value Reference Range Interpretation Comments POC-GLUCOSE METER 205 mg/dL 70-110 H TESTED AT [place] [address] ([facility]) (test code = [facility] Kory [facility] 1538) [address] TACROLIMUS [id number] 12:35:00 Test Item Value Reference Range Interpretation Comments TACROLIMUS BLOOD ([facility]) (test 5.9 ng/mL 10.0-20.0 L code = 657) POCT-GLUCOSE [id number] 08:32:00 Test Item Value Reference Range Interpretation Comments POC-GLUCOSE METER 60 mg/dL 70-110 L TESTED AT [place] [address] ([facility]) (test code = [facility] Kory [facility] [address] 1538) POCT-GLUCOSE [id number] 21:41:00 Test Item Value Reference Range Interpretation Comments POC-GLUCOSE METER 202 mg/dL 70-110 H TESTED AT [place] [address] ([facility]) (test code = HARMEET Horn [facility] 1538) [address] POCT-GLUCOSE [id number] 17:36:00 Test Item Value Reference Range Interpretation Comments POC-GLUCOSE METER 191 mg/dL 70-110 H TESTED AT [place] [address] ([facility]) (test code = HAR[place] Horn [facility] 1538) [address] POCT-GLUCOSE [id number] 11:01:00 Test Item Value Reference Range Interpretation Comments POC-GLUCOSE METER 232 mg/dL 70-110 H TESTED AT [place] [address] ([facility]) (test code = [facility] Kory [facility] 1538) [address] TACROLIMUS [id number] 10:16:00 Test Item Value Reference Range Interpretation Comments TACROLIMUS BLOOD (BEAKER) (test 8.3 ng/mL 10.0-20.0 L code = 657) POCT-GLUCOSE [id number] 08:16:00 Test Item Value Reference Range Interpretation Comments POC-GLUCOSE METER 366 mg/dL 70-110 H TESTED AT [place] [address] ([facility]) (test code = [facility] Kory [facility] 1538) [address] BASIC METABOLIC [id number] 06:57:00 Test Item Value Reference Range Interpretation [...] APPLICABLE FOR DIALYSIS PATIEN TS. HEMOGLOBIN AND [id number] 06:40:00 Test Item Value Reference Range Interpretation Comments HEMOGLOBIN (BEAKER) (test code = 11.4 GM/DL 12.0-15.0 L 410) HEMATOCRIT (BEAKER) (test code = 36.1 % 36.0-45.0 411) POCT-GLUCOSE [id number] 23:30:00 Test Item Value Reference Range Interpretation Comments POC-GLUCOSE METER 274 mg/dL 70-110 H TESTED AT [facility] 6720 (BEAKER) (test code = [place] 1539) [address] BASIC METABOLIC [id number] 18:49:00 Test Item Value Reference Range Interpretation [...] APPLICABLE FOR DIALYSIS PATIEN TS. HEMOGLOBIN AND [id number] 18:35:00 Test Item Value Reference Range Interpretation Comments HEMOGLOBIN (BEAKER) (test code = 11.5 GM/DL 12.0-15.0 L 410) HEMATOCRIT (BEAKER) (test code = 35.6 % 36.0-45.0 L 411) BASIC METABOLIC [id number] 12:08:00 Test Item Value Reference Range Interpretation [...] 0-0 (BEAKER) (test code = 413) 0.00POTASSIUM-STAT [id number] 11:43:00 Test Item Value Reference Range Interpretation Comments POTASSIUM (BEAKER) (test code = 4.3 meq/L 3.6-5.5 379) POCT-GLUCOSE [id number] 11:34:00 Test Item Value Reference Range Interpretation Comments POC-GLUCOSE METER 82 mg/dL 70-110 TESTED AT [facility] 67[address] (BEAKER) (test code = [place] [address] 1538) URINE [id number] 11:19:00 Test Item Value Reference Range Interpretation Comments CULTURE (BEAKER) (test 20-29,000 col/mL skin code = 1095) tea URINALYSIS W/ [id number] 15:16:00 Test Item Value Reference Range Interpretation [...] = 2795) CBC W/PLT COUNT & AUTO [id number] 14:56:00 Test Item Value Reference Range Interpretation [...] 0.00-0.20 (test code = 417) 0.00BASIC METABOLIC [id number] 14:55:00 Test Item Value Reference Range Interpretation [...] S NOT APPLICABLE FOR DIALYSIS PATIISAIAH TS. [id number] 14:51:00 Test Item Value Reference Range Interpretation Comments PARTIAL THROMBOPLASTIN TIME 30.7 seconds 22.5-36.0 (BEAKER) (test code = 760) PROTHROMBIN TIME/[id number] 14:50:00 Test Item Value Reference Range Interpretation [...]
[2021-11-12] MEDS ORDERED: ONDANSETRON 4 MG/2 ML VIAL ONE (07:04)
[2021-11-12] MEDS ORDERED: MORPHINE 4 MG/ML SYR ONE ×2 (07:04→08:57)
[2021-11-12 07:36] LABS: Absolute Lymphocytes (CBC) 0.5 K/uL (0.7-4.9); Hematocrit 36.4 % (36.0-45.0); Lymphocytes % 20.4 % (15.3-44.8); MPV 7.7 fL (7.6-11.3); RBC Red Blood Cell Count 3.96 M/uL (3.86-4.86)
[2021-11-12 08:28] LABS: Protime INR 1.05
--- NOTE | 2021-11-12 08:37 | RAD REPORT ---
EXAM DESCRIPTION: CT - Chest Abd Pelvis Wo Con - 11/12/2021 8:00 am CLINICAL HISTORY: abdominal pain , new pd caththter COMPARISON: Thorax Wo Con dated 08/06/2021; 3D SCR SCOTT BILAT W/CAD dated 07/30/2021 TECHNIQUE: Axial 5 millimeter thick images of the chest, abdomen and pelvis were obtained without IV contrast. Oral contrast was administered. All CT scans are performed using dose optimization technique as appropriate and may include automated exposure control or mA/KV adjustment according to patient size. FINDINGS: No acute infiltrate or new mass lesions seen in the lung parenchyma. Areas of interstitial stranding seen primarily in the mid and lower lung beck not substantially different from prior marii ging. The small nodular foci seen on the August study less than 5 mm in size are stable. In the [facility] t lower lobe (image 37/124) there is an 8 millimeter pulmonary nodule head amongst similar size and d ensity right lower lobe vessels. This has not changed since the August study. Fleischner Society 201 7 follow-up criteria for this patient would be a CT study in 3-6 months. The interval since the ry study would represent that initial follow-up. No pneumothorax or pleural effusion. No chest wall mass or abnormal axillary lymphadenopathy seen. Mediastinal and hilar regions show no mass or lymphadenopathy. No significant cardiac finding. Dense for age breast tissue is present. This is asymmetrically prominent on the right no CT imaging h as limited sensitivity in evaluating breast glandular tissue. Patient has had recent mammography. The liver, spleen and pancreas show no significant findings for non contrast imaging. Gallbladder an d biliary tree are normal. Atrophic left kidney is present with no acute component. No right kidney seen. A right lower abdomen/ upper pelvic transplant kidney is in place. The kidney appears mildly edematous along the margins. N o hydronephrosis. Urinary bladder is contracted around a Collins catheter. Minimal amount of air is see n in the lumen of the bladder likely due to catheterization procedure. There are punctate air densiti es in calices of the transplant kidney likely retrograde movement through the attached ureter. Urinar y bladder mendieta cannot be accurately assessed. Cystitis/pyelonephritis cannot be excluded on a noncon trast study. No adrenal abnormalities. Peritoneal dialysis catheter is present entering in the left mid abdomen. Catheter trach subcutaneous ly and then enters the right-side abdominal wall. Tubing courses along the inferior margin of the roxie er with the pigtail curled at the inferior tip of the liver. No intraperitoneal free air or free flui d. No intraperitoneal hematoma identified. Large stool volume distends but does not dilate the entirety of the colon. No small bowel or stomach acute finding. No hernia, mass or bulky lymphadenopathy. No significant bone or vascular finding. IMPRESSION: Peritoneal dialysis catheter has been placed with the tubing coursing inferiorly along t he medial margin of the liver and curled in the pericolic gutter near the tip of the liver. No intrap eritoneal free air, free fluid or hematoma. Urinary bladder is contracted around a Collins catheter accentuating wall thickness. Right-side transpl ant kidney appears edematous. Function of the transplant kidney cannot be assessed. Pyelonephritis an d/ or cystitis cannot be excluded on noncontrast imaging. Transplant renal function assessment cannot be made. Small noncalcified pulmonary nodules are present in the lower lung beck 8 mm or less in size. Nodul es have not changed since the August 06 examination. Fleischner Society follow-up recommendations would be a 3-6 months follow-up followed by follow-up at 18-24 months considered for a low risk patient and obtained for a high risk patient. Since the nodul es are stable from the August examination. The patient has already obtained the initial 3-6 month fo llow-up recommendation. Therefore, CT imaging should be considered or obtained 18 months from the yaneth e of the August 2021 study.
[2021-11-12 08:55] LABS: Anisocytosis 1+; Blood Morphology Comment NOTED (NOT SEEN); Platelet Estimate ADEQ; White Blood Cell Scan OK (OK)
--- NOTE | 2021-11-12 08:55 | EDPHYS ---
Physician Documentation [facility] Name: Paola Mishra Age: 66 yrs Sex: Female : 1955 Arrival Date: 11/12/2021 Time: 06:34 Bed 14 Private MD: MICHAEL Physician Juan Lindsey HPI: 11/12 07:36 This 66 yrs old Female presents to ER via Wheelchair with complaints of amanda Abdominal Pain. 07:36 This 66 yrs old Female presents to ER via Wheelchair with complaints of amanda Abdominal Pain. 07:36 The patient presents with abdominal pain abdominal distention in the left upper amanda quadrant, in the left lower quadrant. Onset: The symptoms/episode began/occurred 1 day(s) ago. The patient presents with ne quintion and pd catheter last week. Onset: The symptoms/episode began/occurred 1 day(s) ago. Modifying factors: The symptoms are alleviated by nothing. Associated signs and symptoms: The patient has no apparent associated signs or symptoms. Severity of symptoms: At their worst the symptoms were moderate, in the emergency department the symptoms are unchanged. The patient is not sexually active. Historical: - Allergies: 06:50 NKDA; vc1 - PMHx: 06:50 Diabetes - IDDM; ESRD; no longer does dialysis, recieved kidney transplant; fungal vc1 meningitis; Hyperlipidemia; Hypertension; kidney transplant; suprapubic cath; - PSHx: 06:50 Peritoneal Dialysis; vc1 - Immunization history:: Adult Immunizations up to date, Client reports receiving the 2nd dose of the Covid vaccine, Flu vaccine is up to date. - Social history:: Smoking status: Patient denies any tobacco usage or history of. - Family history:: not pertinent. ROS: 07:36 Constitutional: Negative for fever, chills, and weight loss, Eyes: Negative for injury, amanda pain, redness, and discharge, ENT: Negative for injury, pain, and discharge, Neck: Negative for injury, pain, and swelling, Cardiovascular: Negative for chest pain, palpitations, and edema, Respiratory: Negative for shortness of breath, cough, wheezing, and pleuritic chest pain, Back: Negative for injury and pain, : Negative for injury, bleeding, discharge, and swelling, MS/Extremity: Negative for injury and deformity, Skin: Negative for injury, rash, and discoloration, Neuro: Negative for headache, weakness, numbness, tingling, and seizure, Psych: Negative for depression, anxiety, suicide ideation, homicidal ideation, and hallucinations, Allergy/Immunology: Negative for hives, rash, and allergies, Endocrine: Negative for neck swelling, polydipsia, polyuria, polyphagia, and marked weight changes, Hematologic/Lymphatic: Negative for swollen nodes, abnormal bleeding, and unusual bruising. 07:36 Abdomen/GI: Positive for abdominal pain, of the posterior aspect of right lateral abdomen, anterior aspect of right lateral abdomen, left upper quadrant and left lower quadrant. Exam: 07:36 Constitutional: This is a well developed, well nourished patient who is awake, alert, amanda and in no acute distress. Head/Face: Normocephalic, atraumatic. Eyes: Pupils equal round and reactive to light, extra-ocular motions intact. Lids and lashes normal. Conjunctiva and sclera are non-icteric and not injected. Cornea within normal limits. Periorbital areas with no swelling, redness, or edema. ENT: Nares patent. No nasal discharge, no septal abnormalities noted. Tympanic membranes are normal and external auditory canals are clear. Oropharynx with no redness, swelling, or masses, exudates, or evidence of obstruction, uvula midline. Mucous membranes moist. Neck: Trachea midline, no thyromegaly or masses palpated, and no cervical lymphadenopathy. Supple, full range of motion without nuchal rigidity, or vertebral point tenderness. No Meningismus. Chest/axilla: Normal chest wall appearance and motion. Nontender with no deformity. No lesions are appreciated. Cardiovascular: Regular rate and rhythm with a normal S1 and S2. No gallops, murmurs, or rubs. Normal PMI, no JVD. No pulse deficits. Respiratory: Lungs have equal breath sounds bilaterally, clear to auscultation and percussion. No rales, rhonchi or wheezes noted. No increased work of breathing, no retractions or nasal flaring. Back: No spinal tenderness. No costovertebral tenderness. Full range of motion. Female : Normal external genitalia. Skin: Warm, dry with normal turgor. Normal color with no rashes, no lesions, and no evidence of cellulitis. MS/ Extremity: Pulses equal, no cyanosis. Neurovascular intact. Full, normal range of motion. Neuro: Awake and alert, GCS 15, oriented to person, place, time, and situation. Cranial nerves II-XII grossly intact. Motor strength 5/5 in all extremities. Sensory grossly intact. Cerebellar exam normal. Normal gait. Psych: Awake, alert, with orientation to person, place and time. Behavior, mood, and affect are within normal limits. 07:36 Abdomen/GI: Inspection: abdomen appears normal, Bowel sounds: normal, Palpation: mild abdominal tenderness, in the left upper quadrant and left lower quadrant, Liver: no appreciated palpable abnormalities, Hernia: not appreciated. Vital Signs: 06:47 BP 193 / 99; Pulse 89; Resp 20; Temp 98.3(O); Pulse Ox 100% on R/A; Weight 54.43 kg; vc1 Height 5 ft. 52 in. (284.48 cm); Pain 10/10; 08:00 BP 188 / 82; Pulse 81; Resp 16; Pulse Ox 100% ; Pain 7/10; jh6 10:00 BP 186 / 85; Pulse 77; Resp 18; Pulse Ox 100% ; Pain 3/10; jh6 11:00 BP 173 / 72; Pulse 73; Resp 16; Pulse Ox 100% ; Pain 4/10; jh6 13:00 BP 164 / 81; Pulse 75; Resp 18; Temp 97.8(O); Pulse Ox 100% ; Pain 3/10; jh6 15:00 BP 175 / 82; Pulse 78; Resp 17; Pulse Ox 98% ; Pain 3/10; jh6 15:00 BP 175 / 89; Pulse 89; Resp 17; Temp 97.8; Pulse Ox 99% on R/A; Pain 5/10; jh6 17:00 BP 141 / 64; Pulse 82; Resp 17; Pulse Ox 99% ; Pain 3/10; jh6 17:00 BP 164 / 78; Pulse 81; Resp 17; Pulse Ox 100% on R/A; Pain 5/10; jh6 06:47 Body Mass Index 6.73 (54.43 kg, 284.48 cm) vc1 MDM: 07:06 Patient medically screened. [facility] 07:47 Differential diagnosis: nonspecific abdominal pain, urinary tract infection, bowel amanda obstruction, diverticulitis, non-specific abd pain, pancreatitis, Peptic Ulcer Disease. Data reviewed: vital signs, nurses notes, lab test result(s), EKG, radiologic studies, CT scan, plain films. Data interpreted: nurse monitoring: rate is 89 beats/min, rhythm is regular, Pulse oximetry: on room air is 100 %. Test interpretation: by ED physician or midlevel provider: ECG, plain radiologic studies. Counseling: I had a detailed discussion with the patient and/or guardian regarding: the historical points, exam findings, and any diagnostic results supporting the discharge/admit diagnosis, lab results, radiology results, the need for further work-up and treatment in the hospital. 11/12 07:12 Order name: CBC with Diff; Complete Time: 09:08 [facility] 11/12 07:22 Order name: Basic Metabolic Panel; Complete Time: 14:58 [facility] 11/12 07:22 Order name: LFT's; Complete Time: 14:58 [facility] 11/12 07:22 Order name: Magnesium; Complete Time: 14:58 [facility] 11/12 07:22 Order name: NT PRO-BNP; Complete Time: 14:58 [facility] 11/12 07:22 Order name: PT-INR; Complete Time: 08:47 [facility] 11/12 07:22 Order name: Troponin HS; Complete Time: 14:58 [facility] 11/12 07:22 Order name: Uric Acid; Complete Time: 14:58 [facility] 11/12 08:49 Order name: SARS-COV-2 RT PCR (Document "Date of Onset" if Symptomatic); Complete Time: amanda 14:58 11/12 08:49 Order name: Blood Culture Adult (2) amanda 11/12 08:49 Order name: Lactate; Complete Time: 10:02 [facility] 11/12 08:49 Order name: Urine Culture [facility] 11/12 07:22 Order name: XRAY Chest (1 view); Complete Time: 09:26 [facility] 11/12 07:35 Order name: CT Chest Abdomen Pelvis W/O Contrast; Complete Time: 08:47 [facility] 11/12 08:07 Order name: UPPER EXTREMITY VENOUS UNILATE; Complete Time: 10:02 [facility] 11/12 08:55 Order name: CBC Smear Scan; Complete Time: 09:08 [facility] 11/12 12:40 Order name: Lipase; Complete Time: 14:58 [facility] 11/12 15:09 Order name: CONS Physician Consult [facility] 11/12 15:09 Order name: CONS Physician Consult [facility] 11/12 18:09 Order name: Body Fluid Cell Count EDMS 11/12 07:12 Order name: IV Saline Lock; Complete Time: 07:45 kdr 11/12 07:12 Order name: Labs collected and sent; Complete Time: 07:45 kdr 11/12 07:22 Order name: Cardiac monitoring; Complete Time: 09:55 amanda 11/12 07:22 Order name: EKG - Nurse/Tech; Complete Time: 09:55 amanda 11/12 07:22 Order name: O2 Per Protocol; Complete Time: 09:55 amanda 11/12 07:22 Order name: O2 Sat Monitoring; Complete Time: 09:55 amanda 11/12 08:06 Order name: Labs - recollect needed: recollect chem 7; Complete Time: 09:54 eb 11/12 08:49 Order name: Urine Dipstick-Ancillary (obtain specimen); Complete Time: 09:54 [facility] Administered Medications: 07:40 Drug: Zofran (Ondansetron) 4 mg Route: IVP; Site: left jugular; [facility] 07:45 Drug: morphine 4 mg Route: IVP; Site: left jugular; [facility] 08:50 Drug: morphine 4 mg Route: IVP; Site: left jugular; [facility] 10:00 Drug: Rocephin (cefTRIAXone) 1 grams Route: IV; Rate: per protocol; Site: left [facility] antecubital; 11:15 Follow up: Response: No adverse reaction [facility] 16:02 Follow up: Response: No adverse reaction [facility] 16:02 Drug: Dilaudid (HYDROmorphone) 0.5 mg Route: IVP; Site: left jugular; [facility] 16:43 Follow up: Response: Pain is decreased [facility] 16:52 Drug: Eliquis (apixaban) 2.5 mg Route: PO; [facility] Disposition Summary: 11/12/21 10:06 Hospitalization Ordered Hospitalization Status: Inpatient Admission amanda Location: Telemetry/MedSurg (Inpatient) amanda Condition: Fair(11/12/21 10:06) amanda Problem: new(11/12/21 10:06) amanda Symptoms: have improved(11/12/21 10:06) amanda Bed/Room Type: Standard amanda Provider: Fito Bernal(11/12/21 14:59) amanda Room [place]: [facility] [place] [facility] [place]11/12/21 17:50[place] iw Diagnosis - End stage renal disease - ON HD(11/12/21 10:06) amanda - Kidney transplant status(11/12/21 10:06) amanda - Pyelonephritis acute - RIGHT TRANSPLANTED KIDNEY(11/12/21 10:06) amanda - Type 1 diabetes mellitus with hyperglycemia amanda - Abdominal tenderness - PERITONEAL DIALYSIS CATHTETER, 4 WEEKS AGO(11/12/21 10:06) amanda - 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 EDMS EDMS 10:03 08:54 to sj druze amanda amanda 10:03 08:54 [employer] amanda amanda 10:03 08:54 Higher level of care amanda amanda 10:03 08:54 Fair amanda amanda 10:03 08:54 new amanda amanda 10:03 08:54 have worsened amanda amanda 10:03 08:54 Lower abdominal pain, unspecified - PERITONEAL DIOALYSIS CATHTHTER amanda amanda 10:03 08:54 End stage renal disease - on HD amanda amanda 10:03 08:54 Kidney transplant status amanda amanda 10:03 08:54 Pyelonephritis acute - TRANSPLANTED KIDNEY amanda amanda 10:06 10:06 Abdominal tenderness amanda amanda 12:39 07:13 COMPREHENSIVE METABOLIC PANEL+C.LAB.BRZ ordered. EDMS EDMS 12:39 07:13 LIPASE+C.LAB.BRZ ordered. EDMS EDMS 14:59 10:06 OmitTomás andrade amanda amanda 17:50 10:06 amanda iw
--- NOTE | 2021-11-12 08:55 | ER ---
Nurse's Notes [facility] Name: Paola Mishra Age: 66 yrs Sex: Female : 1955 Arrival Date: 11/12/2021 Time: 06:34 Bed 14 Private MD: Diagnosis: End stage renal disease-ON HD;Abdominal tenderness-PERITONEAL DIALYSIS CATHTETER, 4 WEEKS AGO;Kidney transplant status;Pyelonephritis acute-RIGHT TRANSPLANTED KIDNEY;Type 1 diabetes mellitus with hyperglycemia;Acute embolism and thrombosis of right subclavian vein Presentation: 11/12 06:47 Chief complaint: Spouse and/or significant other states: "She has been complaining of vc1 pain and crying from the pain all night." Pt c/o left sided abdominal pain that starts at her PD access and radiates to her back and down her left leg. Coronavirus screen: Vaccine status: Patient reports receiving the 2nd dose of the covid vaccine. Moderna At this time, the client does not indicate any symptoms associated with coronavirus-19. Ebola Screen: No symptoms or risks identified at this time. Initial Sepsis Screen: Does the patient meet any 2 criteria? No. Patient's initial sepsis screen is negative. Does the patient have a suspected source of infection? No. Patient's initial sepsis screen is negative. Risk Assessment: Do you want to hurt yourself or someone else? Patient reports no desire to harm self or others. Onset of symptoms was November 11, 2021. 06:47 Method Of Arrival: Wheelchair vc1 06:47 Acuity: NOHELIA 3 vc1 Triage Assessment: 06:50 General: Appears uncomfortable, ill, Behavior is crying. Pain: Complains of pain in vc1 abdomen Pain radiates to back and left leg Pain currently is 10 out of 10 on a pain scale. GI: Abdomen is round non-distended, Reports lower abdominal pain, upper abdominal pain. : Urine is clear. Historical: - Allergies: 06:50 NKDA; vc1 - PMHx: 06:50 Diabetes - IDDM; ESRD; no longer does dialysis, recieved kidney transplant; fungal vc1 meningitis; Hyperlipidemia; Hypertension; kidney transplant; suprapubic cath; - PSHx: 06:50 Peritoneal Dialysis; vc1 - Immunization history:: Adult Immunizations up to date, Client reports receiving the 2nd dose of the Covid vaccine, Flu vaccine is up to date. - Social history:: Smoking status: Patient denies any tobacco usage or history of. - Family history:: not pertinent. Screenin:00 Abuse screen: Denies threats or abuse. jh6 07:00 Nutritional screening: No deficits noted. Tuberculosis screening: No symptoms or risk jh6 factors identified. Fall Risk Assessment: 07:00 General: Appears uncomfortable, well groomed, well developed, Behavior is calm, jh6 cooperative. Pain: Complains of pain in posterior aspect of left lateral abdomen and left upper quadrant Pain currently is 8 out of 10 on a pain scale. Quality of pain is described as aching, dull, Pain began suddenly, Is continuous, Aggravated by increased activity, repositioning. : CVA tenderness noted on right Reports pain in right flank(s), lower quadrant(s). 07:00 GI: Bowel sounds present X 4 quads. jh6 07:15 GI: Abd is soft Abdomen is tender to palpation in left upper quadrant and left lower jh6 quadrant. 08:00 Reassessment: Patient and/or family updated on plan of care and expected duration. Pain jh6 level reassessed. Patient is alert, oriented x 3, equal unlabored respirations, skin warm/dry/pink. 08:00 Pain: Pain currently is 8 out of 10 on a pain scale. jh6 09:00 Reassessment: Patient and/or family updated on plan of care and expected duration. Pain jh6 level reassessed. Patient is alert, oriented x 3, equal unlabored respirations, skin warm/dry/pink. Patient states feeling better. Patient states symptoms have improved. Pain: Pain currently is 4 out of 10 on a pain scale. 10:30 Reassessment: Patient and/or family updated on plan of care and expected duration. Pain jh6 level reassessed. states pain starting to come back again, md kishan reddy. 11:30 Reassessment: Patient and/or family updated on plan of care and expected duration. Pain jh6 level reassessed. Patient is alert, oriented x 3, equal unlabored respirations, skin warm/dry/pink. Patient states feeling better. Pain: Pain currently is 4 out of 10 on a pain scale. 13:00 Reassessment: No changes from previously documented assessment. pt resting with family jh6 at bedside. pt was able to tolerate po water without nausea. 15:00 Reassessment: Patient and/or family updated on plan of care and expected duration. Pain jh6 level reassessed. Patient is alert, oriented x 3, equal unlabored respirations, skin warm/dry/pink. family at bedside aware unable to transfer at this time to facility where PD was placed . 18:18 General: Appears uncomfortable, Behavior is calm, cooperative. General: PD site cleaned jh6 and bandaged after surgeon evaluated pt. pt tolerated well and still c/o pain with movement. . Pain: Complains of pain in anterior aspect of left lateral abdomen and abdomen diffusely. 18:28 General: attempted twice to give pt report and was placed on hold for 5+ min each jh6 episode. charge made aware. . Vital Signs: 06:47 BP 193 / 99; Pulse 89; Resp 20; Temp 98.3(O); Pulse Ox 100% on R/A; Weight 54.43 kg; vc1 Height 5 ft. 52 in. (284.48 cm); Pain 10/10; 08:00 BP 188 / 82; Pulse 81; Resp 16; Pulse Ox 100% ; Pain 7/10; jh6 10:00 BP 186 / 85; Pulse 77; Resp 18; Pulse Ox 100% ; Pain 3/10; jh6 11:00 BP 173 / 72; Pulse 73; Resp 16; Pulse Ox 100% ; Pain 4/10; jh6 13:00 BP 164 / 81; Pulse 75; Resp 18; Temp 97.8(O); Pulse Ox 100% ; Pain 3/10; jh6 15:00 BP 175 / 82; Pulse 78; Resp 17; Pulse Ox 98% ; Pain 3/10; jh6 15:00 BP 175 / 89; Pulse 89; Resp 17; Temp 97.8; Pulse Ox 99% on R/A; Pain 5/10; jh6 17:00 BP 141 / 64; Pulse 82; Resp 17; Pulse Ox 99% ; Pain 3/10; jh6 17:00 BP 164 / 78; Pulse 81; Resp 17; Pulse Ox 100% on R/A; Pain 5/10; jh6 06:47 Body Mass Index 6.73 (54.43 kg, 284.48 cm) vc1 ED Course: 06:34 Patient arrived in ED. corine 06:41 Tamika John RN is Primary Nurse. 5 06:50 Triage completed. vc1 06:53 Arm band placed on right wrist. vc1 07:03 Missed attempt(s): 20 gauge in right antecubital area. 22 gauge in right wrist. vc1 07:06 Juan Lindsey MD is Attending Physician. amanda 07:15 Placed in gown. Bed in low position. Call light in reach. Side rails up X2. jh6 07:35 Inserted saline lock: 18 gauge in left EJ, using aseptic technique. Blood collected. ej jh6 placed by dr lindsey without complications. 08:01 CT Chest Abdomen Pelvis W/O Contrast In Process Unspecified. EDMS 08:44 UPPER EXTREMITY VENOUS UNILATE In Process Unspecified. EDMS 08:53 initiated a transfer with Brooke from the [facility] [place] [place] Transfer [place]. eb 08:59 Brooke from the [facility] [place] connected me with Xiomy from the [facility] to attempt transfer/ Per Xiomy they will have to decline the patient in transfer they are at capacity. 09:02 Brooke from the [facility] called to decline the patient in transfer eb due to being at capacity. 09:14 XRAY Chest (1 view) In Process Unspecified. EDMS 10:04 Tomás Bender MD is Hospitalizing Provider. amanda 14:59 Fito Bernal MD is Hospitalizing Provider. amanda 18:23 No provider procedures requiring assistance completed. 6 Administered Medications: 07:40 Drug: Zofran (Ondansetron) 4 mg Route: IVP; Site: left jugular; 6 07:45 Drug: morphine 4 mg Route: IVP; Site: left jugular; 6 08:50 Drug: morphine 4 mg Route: IVP; Site: left jugular; 6 10:00 Drug: Rocephin (cefTRIAXone) 1 grams Route: IV; Rate: per protocol; Site: left [facility] antecubital; 11:15 Follow up: Response: No adverse reaction 6 16:02 Follow up: Response: No adverse reaction 6 16:02 Drug: Dilaudid (HYDROmorphone) 0.5 mg Route: IVP; Site: left jugular; 6 16:43 Follow up: Response: Pain is decreased 6 16:52 Drug: Eliquis (apixaban) 2.5 mg Route: PO; jh6 Outcome: 08:54 ER care complete, transfer ordered by . amanda 10:06 Decision to Hospitalize by Provider. amanda 18:40 Admitted to Tele accompanied by nurse, accompanied by tech, via stretcher, room 208, 6 Report called to [facility] 18:40 Condition: stable 18:40 Instructed on the need for admit. 18:41 Patient left the ED. [facility] Signatures: Dispatcher [employer] EDJuan Salazar MD MD cha Botello, Elizabeth eb Hastedt, Jennifer, RN RN jh6 Tamika John RN RN sm5 Marimar Packer RN RN vc1 Taylor Donis
[2021-11-12 09:13] LABS: Albumin 3.1 g/dL (3.4-5.0); Bilirubin Direct 0.1 mg/dL (0-0.2); Bilirubin Total 0.3 mg/dL (0.2-1.0); Magnesium 2.4 mg/dL (1.8-2.4); Potassium 3.8 mmol/L (3.5-5.1); Protein, Total 6.7 g/dL (6.4-8.2)
--- NOTE | 2021-11-12 09:24 | RAD REPORT ---
EXAM DESCRIPTION: RAD - Chest Single View - 11/12/2021 9:12 am CLINICAL HISTORY: ABDOMINAL DISTENTION, abdominal pain COMPARISON: Portable August 05 TECHNIQUE: AP portable chest image was obtained 11/12/2021 9:12 am . FINDINGS: Lung volumes are low compared to prior study accentuating interstitial pattern. No acute l becky parenchymal process seen. Right-sided dialysis catheter is in place in good position. Heart and vasculature are normal. No nemo urable pleural effusion and no pneumothorax. No acute bony abnormality seen. No acute aortic findings suspected. IMPRESSION: No acute cardiopulmonary process. Chest findings are not substantially different from comparison.
[2021-11-12 09:27] LABS: Troponin High Sensitivity 182.3 pg/mL (<58.9)
--- NOTE | 2021-11-12 09:44 | RAD REPORT ---
EXAM DESCRIPTION: US - UPPER EXTREMITY VENOUS UNILATE - 11/12/2021 9:31 am CLINICAL HISTORY: Right arm pain and swelling COMPARISON: None. TECHNIQUE: Real-time sonographic evaluation of the right upper extremity deep venous systems was per formed. FINDINGS: Normal compressibility, flow augmentation, phasic flow and spontaneous flow are identified in the right upper extremity deep venous system. No intraluminal filling defects seen. Subclavian vein as imaged is clear of thrombus. Echogenic material is present filling the majority of the right internal jugular vein. IMPRESSION: Right internal jugular vein deep venous thrombosis.
[2021-11-12] MEDS ORDERED: CEFTRIAXONE 1000 MG/VIAL ONE (10:13)
[2021-11-12] MEDS ORDERED: NA CHLORIDE 0.9% 100 ML IV ONE (10:13)
[2021-11-12] MEDS ORDERED: HYDROMORPHONE HCL 0.5 MG/0.5 ML INJ ONE (15:56)
[2021-11-12] MEDS ORDERED: VANCOMYCIN 1 GM in NA CHLORIDE 0.9% 250 ML IVPB SCH (15:59)
--- NOTE | 2021-11-12 16:16 | P.HP ---
Certification for Inpatient Patient admitted to: Inpatient With expected LOS: >2 Midnights Patient will require the following post-hospital care: Home Health Services Practitioner: I am a practitioner with admitting privileges, knowledge of patient current condition, hospital course, and medical plan of care. Services: Services provided to patient in accordance with Admission requirements found in Title 42 Section 412.3 of the Code of Federal Regulations Patient History Date of Service: 11/12/21 Primary Care Provider: Tremaine Grijalva Reason for admission: bacterial pertonitis History of Present Illness: Patient is here after 1 day of abdominal pain. She was recently admitted to [place] for initiation of dialysis. The patient had a right upper chest catheter placed for HD and a left abdomen peritoneal catheter placed. The patient then spent 2 weeks in a center. She went home this past Tuesday. Had dialysis on Tuesday and Tuesday this week. The patient had her Peritoneal catheter flushed on Tuesday. Started feeling discomfort over the site the next day. Which worsened and brought her to the ER. The patient was found to have a right internal jugular vein dvt(same side as the HD cath). Allergies No Known Drug Allergies Allergy (Verified 08/01/20 23:30) Unknown Home Medications: Amlodipine [Norvasc*] 10 mg PO DAILY 07/04/19 Calcium Carbonate [Tums Regular*] 500 mg PO QID 07/04/19 Gabapentin [Neurontin*] 100 mg PO TID 07/04/19 Magnesium Chloride [Slow-Mag*] 64 mg PO DAILY 07/04/19 Omeprazole [Prilosec] 40 mg PO DAILY 07/04/19 Simvastatin 20 mg PO BEDTIME 07/04/19 Tacrolimus [Prograf] 1 cap PO BID 07/04/19 predniSONE [Prednisone*] 5 mg PO DAILY 07/04/19 Calcitriol [Rocaltrol] 1 mcg PO DAILY 06/23/21 Furosemide [Lasix] 20 mg PO BID 06/23/21 Levothyroxine Sodium 25 mcg PO DAILY 06/23/21 Spironolactone 25 mg PO DAILY 06/23/21 Tamsulosin HCl 0.4 mg PO DAILY 06/23/21 Insulin Aspart [Novolog Flexpen] 3 unit SQ SEECOM 08/06/21 Insulin NPH Human [Novolin N (Humulin N)*] 10 unit SQ SEECOM 08/06/21 Liraglutide [Victoza 2-Tavo] 1.8 mg SQ BREAKFAST 08/06/21 Megestrol [Megace*] 40 mg PO DAILY 08/06/21 Promethazine Tab [Phenergan*] 25 mg PO Q8HR PRN 08/06/21 Amox/Clavulanate [Augmentin 875-125 Tab] 875 mg PO BID 10 Days #20 tab 08/10/21 - Past Medical/Surgical History Diabetic: Yes -: Kidney transplant -: chronic venous hypertension with ulceraton -: diabetic ulcer toe -: gerd -: hyperlipidemia -: neuropathy chronic kidney disease -: kidney transplant -: -: Toe Amputation -: Fistula Placement -: Chronic venous hypertension with ulceration - Family History Mother -: Stroke, Kidney disease - Social History Alcohol use: No CD- Drugs: No Caffeine use: No Review of Systems 10-point ROS is otherwise unremarkable Gastrointestinal: Abdominal Pain, No Distention Physical Examination - Physical Exam General: Alert, Moderate distress HEENT: Atraumatic, PERRLA, Mucous membr. moist/pink, EOMI, Sclerae nonicteric Neck: Supple, 2+ carotid pulse no bruit, No LAD, Without JVD or thyroid ab normality Respiratory: Clear to auscultation bilaterally, Normal air movement Cardiovascular: Regular rate/rhythm, Normal S1 S2 Gastrointestinal: No ascites, No tenderness, Other (left middle lobe peritoneal dialysis catheter), Distended, Tenderness Musculoskeletal: No tenderness Integumentary: No rashes Neurological: Normal gait, Normal speech, Normal strength at 5/5 x4 extr, Normal tone, Normal affect Lymphatics: No axilla or inguinal lymphadenopathy - Studies Laboratory Data (last 24 hrs) 11/12/21 08:20: Sodium 138, Potassium 3.8, BUN 19 H, Creatinine 1.97 H, Glucose 228 H, Uric Acid 3.0 D, Magnesium 2.4, Total Bilirubin 0.3, AST 14 L, ALT 15, Alkaline Phosphatase 61, Lipase 113 11/12/21 08:12: PT 11.6, INR 1.05 11/12/21 07:30: Sodium Cancelled, Potassium Cancelled, BUN Cancelled, Creatinine Cancelled, Glucose Cancelled, Total Bilirubin Cancelled, AST Cancelled, ALT Cancelled, Alkaline Phosphatase Cancelled, Lipase Cancelled 11/12/21 07:30: WBC 2.7 L, Hgb 11.5 L, Hct 36.4, Plt Count 220 Assessment and Plan - Problems (Diagnosis) (1) Bacterial peritonitis Current Visit: Yes Status: Acute Plan: 1 cc of dark red fluid drawn from the catheter. Will send for culture and gram staining. Will start the patient on cefepime and vanco as per the [place] guide. Will consult Dr. Byrd. Who has experience with these catheters. (2) ESRD (end stage renal disease) Current Visit: Yes Status: Chronic Plan: Will consult Dr. Sandoval who has seen the patient in the past. (3) DVT (deep venous thrombosis) Current Visit: Yes Status: Acute Plan: jugular vein. Discussed with Dr. Sandoval. Will start her on eliquis. Qualifiers: DVT location: upper extremity Affected thrombotic vein of extremity: other upper extremity vein Chronicity: acute Laterality: right Qualified Code(s): I82.621 - Acute embolism and thrombosis of deep veins of right upper extremity (4) Diabetes Onset Date: 10/26/17 Current Visit: No Status: Chronic Plan: will start her on a low dose sliding scale for now. She can eat when she tolerates. 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 Qualifiers: Hypertension type: primary hypertension Qualified Code(s): I10 - Essential (primary) hypertension Discharge Plan: Home - Advance Directives Does patient have a Living Will: No Does patient have a Durable POA for Healthcare: Yes - Code Status/Comfort Care Code Status Assessed: No Code Status: Full Code Physician Review: Patient Assessed, Agree with Above Assessment and Plan Critical Care: No Time Spent Managing Pts Care (In Minutes): 60
[2021-11-12] MEDS ORDERED: ACETAMINOPHEN 500 MG TAB PO PRN ×2 (16:21→19:58)
[2021-11-12] MEDS ORDERED: VANCOMYCIN 1 GM in NA CHLORIDE 0.9% 250 ML IVPB ONE (17:00)
[2021-11-12 18:07] LABS: Appearance SLT. TURBID (CLEAR); Body Fluid Source PERITONEAL; Color of fluid Yellow (COLORLESS)
[2021-11-12 18:08] LABS: Body Fluid WBC 2 /mm^3
[2021-11-12] MEDS: HYDROMORPHONE HCL 0.5 MG/0.5 ML INJ IV PRN ×2 (19:28→23:42)
[2021-11-12] MEDS ORDERED: D50W 25 GM/50 ML SYRINGE IV PRN (19:58)
[2021-11-12] MEDS ORDERED: GLUCAGON 1 MG/VIAL IM PRN (19:58)
[2021-11-12] MEDS: INSULIN -REGULAR HUMAN 50 UNIT/0.5 ML ML SQ SCH ×2 (19:58→21:00)
[2021-11-12 20:55] VITALS: BMI 21.9
[2021-11-12] MEDS ORDERED: FAMOTIDINE 20 MG/2 ML VIAL IV ONE (21:00)
[2021-11-12] MEDS ORDERED: CEFEPIME 1 GM in NA CHLORIDE 0.9% 100 ML IV SCH (21:00)
[2021-11-12] MEDS ORDERED: APIXABAN 2.5 MG TABLET PO SCH (21:00)
[2021-11-12] MEDS: APIXABAN 5 MG TABLET PO SCH (21:02)
[2021-11-12] MEDS: MORPHINE 2 MG/ML SYR IV PRN (21:02)
[2021-11-12] MEDS: NA CHLORIDE 0.9% 1,000 ML IV SCH (21:09)
--- NOTE | 2021-11-12 23:36 | CON ---
Date of Consultation: 11/12/2021 Brief History Of Present Illness: Patient is a 66-year-old female who comes to the hospital after hager ving a recently placed peritoneal dialysis catheter. She presents with abdominal pain, which has bee n getting progressively worse over the past 2 weeks. It is predominantly located in the left lower q uadrant and flank area without radiation. It is not related to the insertion site of the peritoneal dialysis catheter. She additionally had a hemodialysis catheter placed at the same time in the right internal jugular vein. She has a history also of diabetes, hypertension. She had a kidney transpla nt in [address] 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 Her baseline creat inine 1.82 to 2.3. Her GFR is in the 20s. She is on maintenance immunosuppression with tacrolimus 0 .5 q.12 and prednisone 5 mg by mouth daily. Obstructive uropathy on a chronic Collins, hypertension, h yperlipidemia, diabetes, peripheral vascular disease, peripheral neuropathy, and chronic episodes of lymphedema. She had not been utilizing her peritoneal dialysis and had it simply accessed several ti mes a few days ago without issue by her description. She has been getting hemodialysis in the [facility]. She denies any change in her bowel or bladder habits. She has been eating normally. No nausea. No vomiting. The abdominal pain is only isolated to the left flank area without radiation. Past Medical History: As above, which includes the chronic venous hypertension, diabetic ulcer, GERD , hyperlipidemia, neuropathy, chronic kidney disease, diabetic, hypertension, chronic allograft neuro zoie with rejection, obstructive uropathy, hyperlipidemia, peripheral vascular disease, peripheral n europathy, DVTs, urinary tract infections. Past Surgical History: Included a kidney transplant, , toe amputation, fistula placement, c hronic venous hypertension with ulceration, placement of temporary dialysis catheters. She denies sm oking, alcohol, recreational drug use. Review of Systems: Ten-point review of systems other than HPI, she currently has some weakness with fatigue, malaise, an d general swelling to her body. Physical Examination: General: She is awake, alert, and oriented. Psychiatric: She is appropriate and conversive. Neck: Supple without JVD. There is a right-sided hemodialysis catheter in place. Cardiovascular: Regular rate and rhythm. Pulmonary: Decreased breath sounds bilaterally. Abdomen: Soft with mild left lower quadrant tenderness to only deep palpation. There is no pain or at the insertion site of the peritoneal dialysis catheter. No evidence of infection, leakage, or gricel inage. There is a suture at the insertion site. The fluid in the catheter appears clear at this poi nt. There is no evidence of infection either of her hemo or peritoneal dialysis catheters grossly. The remainder of abdominal exam is benign. She has no tenderness to palpation on the right side of h er abdomen. She has no evidence of peritonitis. Extremities: There is edema in all 4 extremities, 2+ pitting. Her BMI is 21.9. She is 5 feet 2 inches, 119 pounds. Laboratory Data: Revealed a white blood cell count of 2.7, hemoglobin 11.5, hematocrit 36.4, platele t count is 220. Her coags showed PT 11.6, INR 1.05. Chemistry showed sodium of 138, potassium 3.8, chloride 107, carbon dioxide 24, BUN 19, creatinine 1.97, glucose is 228, lactic acid 0.4, uric acid 3.0, calcium 7.4, magnesium 2.4, total bilirubin 0.3, direct component 0.1, AST 14, ALT 15, alkaline phosphatase 61. Troponin I 182.3. ProBNP 4546. Lipase is 113. She currently has COVID, which is n egative. She had imaging performed as well, which included a CT scan of the chest, abdomen, and pelv is officially read as peritoneal dialysis catheter had been placed with the tubing coursing inferiorl y along the medial margin of the liver and curled in the pericolic gutters near the tip of the liver. No intraperitoneal free fluid, air, or hematoma. Urinary bladder is contracted around a Collins cath eter, accentuating wall thickness. Right-sided transplant kidney appears edematous. Function of the transplanted kidney cannot be assessed. Pyelonephritis and/or cystitis cannot be excluded on noncon trast imaging. Small noncalcified pulmonary nodules are present in the left lower lung field. The has less nodules have not changed since August 06. She had an extremity venous study, [facility] showed ultrasound of the upper extremity, showed right arm normal compressibility identified in th e right upper extremity deep venous system. Subclavian vein imaged is clear of thrombus. Echogenic material is present filling the majority of the right internal jugular vein. Right internal jugular vein deep vein thrombosis evident. Assessment And Plan: This is a 66-year-old female who comes in with multiple medical problems as humza cribed and abdominal pain and a thrombus of her right subclavian with a catheter in the region. 1.IV fluid hydration. 2.Medical management and antibiotic coverage. 3.Serial abdominal exams. 4.Await cultures from peritoneal aspirate. 5.Dr. Sandoval , Nephrology, consulted to see the patient regarding her ongoing renal dysfunction and chronic kidney disease. 6.I do not find there is acute evidence of spontaneous bacterial peritonitis at this time; however, we will follow up on cultures and fluid analysis. The catheter is placed around the liver. I suspec t this was done intentionally as the patient has had a renal transplant and likely had a somewhat hos tile abdomen with respect to placement of a peritoneal dialysis catheter; however, I did not find ebony ss evidence of infection at this time. The insertion site is clear. The catheter fluid appears rex r and her catheter course is towards the liver of which there is no tenderness on the entire right si de of her abdomen, therefore making peritonitis a less likely diagnosis; however, cannot exclude at t his time completely. Therefore, I will follow along with you. Thank you for this interesting consult. KATIA/CARMINA Voice ID: [id number] Report ID: [id number]
[2021-11-13] MEDS: HYDRALAZINE HCL 20 MG/ML VIAL IV PRN ×2 (00:17→12:37)
[2021-11-13] MEDS: ONDANSETRON 4 MG/2 ML VIAL IV PRN (01:26)
[2021-11-13] MEDS: MORPHINE 2 MG/ML SYR IV PRN ×2 (01:28→06:47)
[2021-11-13 06:30] LABS: Absolute Lymphocytes (CBC) 0.5 K/uL (0.7-4.9); Lymphocytes % 13.9 % (15.3-44.8); MPV 7.3 fL (7.6-11.3); RBC Red Blood Cell Count 3.75 M/uL (3.86-4.86)
[2021-11-13] MEDS: PANTOPRAZOLE 40MG TABLET PO SCH (06:38)
[2021-11-13 06:45] LABS: Albumin 2.9 g/dL (3.4-5.0); Bilirubin Total 0.3 mg/dL (0.2-1.0); Potassium 4.2 mmol/L (3.5-5.1); Protein, Total 6.5 g/dL (6.4-8.2)
[2021-11-13] MEDS ORDERED: VANCOMYCIN 500 MG in NA CHLORIDE 0.9% 100 ML IVPB SCH (07:00)
[2021-11-13] MEDS: INSULIN -REGULAR HUMAN 50 UNIT/0.5 ML ML SQ SCH ×4 (07:30→21:00)
[2021-11-13] MEDS ORDERED: PROMETHAZINE 25 MG TABLET PO PRN (08:04)
--- NOTE | 2021-11-13 08:04 | P.CNS ---
Date of Consult: 11/13/21 Reason for Consult: ESRD Requesting Physician: Fito Bernal Primary Care Provider: Tremaine Grijalva Chief Complaint: Abdominal pain History of Present Illness: 65F romanian-speaking w/ PMHx of ESRD presumed to be 2/2 Htn/DMs/p kidney transplant in December [address] [facility] now failed & resumed hemodialysis in September 2021, also started on PD about 2-3 wks ago, primary nephro is Dr. 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 CT imaging did not reveal diverticulitis. She received abx for possible PD-related peritonitis. PD fluid gram stain neg. PD fluid culture pending. She also was found to have RIJV DVT, on the same side as her TDC. She is started on Eliquis. Allergies No Known Drug Allergies Allergy (Verified 08/01/20 23:30) Unknown Home Medications: Amlodipine [Norvasc*] 10 mg PO DAILY 07/04/19 Calcium Carbonate [Tums Regular*] 500 mg PO QID 07/04/19 Gabapentin [Neurontin*] 100 mg PO TID 07/04/19 Magnesium Chloride [Slow-Mag*] 64 mg PO DAILY 07/04/19 Omeprazole [Prilosec] 40 mg PO DAILY 07/04/19 Simvastatin 40 mg PO BEDTIME 07/04/19 Tacrolimus [Prograf] 1 cap PO BID 07/04/19 predniSONE [Prednisone*] 5 mg PO DAILY 07/04/19 Calcitriol [Rocaltrol] 1 mcg PO DAILY 06/23/21 Furosemide [Lasix] 20 mg PO BID 06/23/21 Levothyroxine Sodium 25 mcg PO DAILY 06/23/21 Insulin Aspart [Novolog Flexpen] 3 unit SQ SEECOM 08/06/21 Insulin NPH Human [Novolin N (Humulin N)*] 25 unit SQ SEECOM 08/06/21 Promethazine Tab [Phenergan*] 25 mg PO Q8HR PRN 08/06/21 Apixaban [Eliquis] 5 mg PO BID 11/12/21 Fluconazole [Diflucan] 50 mg PO BID 11/12/21 Lactulose 10 gm PO DAILY 11/12/21 cloNIDine HCL [Clonidine HCl] 0.1 mg PO BID 11/12/21 - Past Medical/Surgical History Diabetic: Yes -: Kidney transplant -: chronic venous hypertension with ulceraton -: diabetic ulcer toe -: gerd -: hyperlipidemia -: neuropathy chronic kidney disease -: kidney transplant -: -: Toe Amputation -: Fistula Placement -: Chronic venous hypertension with ulceration - Family History Mother Medical History: Stroke, Kidney disease Sister History Unknown: Yes Medical History: Kidney disease - Social History Smoking Status: Unknown if ever smoked Alcohol use: No CD- Drugs: No Caffeine use: No Place of Residence: Home Review of Systems General: Weakness Eyes: Unremarkable ENT: Unremarkable Respiratory: Unremarkable Cardiovascular: Unremarkable Gastrointestinal: Abdominal Pain Genitourinary: Unremarkable Musculoskeletal: Unremarkable Integumentary: Unremarkable Neurological: Unremarkable Lymphatics: Unremarkable Physical Examination Temp Pulse Resp BP Pulse Ox 97.3 F 89 17 166/12 H 96 11/13/21 04:00 11/13/21 04:00 11/13/21 06:47 11/13/21 04:00 11/13/21 06:47 General: Other (frail looking) HEENT: Atraumatic, Normocephalic, Other (+RIJV TDC) Neck: Supple, JVD not distended Respiratory: Clear to auscultation bilaterally, Normal air movement Cardiovascular: No rubs, No murmurs Gastrointestinal: Soft and benign, Other (+PD catheter in place w/ insertion site on L abdomen that's clean/dry) Musculoskeletal: No clubbing Integumentary: No rashes, No warmth Neurological: Normal speech, Normal tone Lymphatics: No axilla or inguinal lymphadenopathy Urinary: Dialysis catheter External genitalia: Deferred Rectal: Deferred Laboratory Data (last 24 hrs) 11/12/21 08:20: Sodium 138, Potassium 3.8, BUN 19 H, Creatinine 1.97 H, Glucose 228 H, Uric Acid 3.0 D, Magnesium 2.4, Total Bilirubin 0.3, AST 14 L, ALT 15, Alkaline Phosphatase 61, Lipase 113 11/12/21 08:12: PT 11.6, INR 1.05 11/12/21 07:30: Sodium Cancelled, Potassium Cancelled, BUN Cancelled, Creatinine Cancelled, Glucose Cancelled, Total Bilirubin Cancelled, AST Cancelled, ALT Cancelled, Alkaline Phosphatase Cancelled, Lipase Cancelled 11/12/21 07:30: WBC 2.7 L, Hgb 11.5 L, Hct 36.4, Plt Count 220 Conclusions/Impression: # Failed KTx, resumed dialysis in September 2021 S/p kidney transplant in December [address] [facility] now failed Hx of R renal cell carcinoma s/pR nephrectomy in October 2016 Hx of chronic urinary obstrn Cont HD Tue & Tue; next HD Mon next week Started on PD 2-3 wks ago Renal diet Primary nephro is Dr. Souleymane Sears, tel [phone] Home dialysis nurse Sharon, tel [phone] # Abdominal pain, r/o PD related peritonitis Reports 1 day hx of LLQ abdominal & L flank pain Abx via Cefepime + Vanc IV PD fluid gm stain neg F/u PD fluid culture Pain resolved Denies constipation No e/o diverticulitis on CT If no recurrence of pain, plan to dc via po Bactrim 1 SS tab po q12h, or Cipro po bid while awaiting PD fluid cx result # IS Home IS via Prograf + Prednisone Cont Prograf at 0.5 mg po bid Cont Pred at 2.5 mg po daily MMF 500 mg po q12h was d/c'ed in early 2020 # Secondary hyperPTH, hypocalcemia Hx of osteoporosis Calcitriol, Phos binder, D3 suppl # Htn BP above goal BP meds adjusted # Pulmonary Htn Hx of COPD/chronic bronchitis & covid [address] in Sep 2020 showed multiple right lower lobe nodules & pulmo Htn w/ dilated main pulmo artery. TTE in December 2020 showed normal LVEF > 70%, LA severely dilated, gr. 1 diastolic dysfxn, unable to estimate PASP or RVSP. BNP sig elevated HD as above # Cryptococcal meningitis Resume Fluconazole 200 mg po daily # DM2 Mngt per primary team # Hypothyroidism Levothyroxine # HLD Statin # GERD Omeprazole # Dispo Anticipate dc tomorrow
[2021-11-13] MEDS: CEFEPIME 1 GM in NA CHLORIDE 0.9% 100 ML IV SCH (08:06)
[2021-11-13] MEDS: APIXABAN 5 MG TABLET PO SCH ×2 (08:07→21:15)
[2021-11-13] MEDS: FAMOTIDINE 20 MG/2 ML VIAL IV SCH (08:07)
--- NOTE | 2021-11-13 08:09 | P.PN ---
Subjective Date of Service: 11/13/21 Primary Care Provider: Tremaine Grijalva Chief Complaint: bacterial pertonitis Subjective: Improving (Patient comfortable. Had a bowel movement yesterday. No pain) Review of Systems 10-point ROS is otherwise unremarkable Physical Examination - Vital Signs Temperature: 97.3 F Blood Pressure: 166/12 Pulse: 89 Respirations: 17 Pulse Ox (%): 96 - Physical Exam General: Alert, In no apparent distress HEENT: Atraumatic, PERRLA, EOMI Neck: Supple, JVD not distended Respiratory: Clear to auscultation bilaterally, Normal air movement Cardiovascular: Regular rate/rhythm, Normal S1 S2 Gastrointestinal: Normal bowel sounds, No tenderness Musculoskeletal: No tenderness Integumentary: No rashes Neurological: Normal speech, Normal tone, Normal affect Lymphatics: No axilla or inguinal lymphadenopathy - Studies Laboratory Data (last 24 hrs) 11/12/21 08:20: Sodium 138, Potassium 3.8, BUN 19 H, Creatinine 1.97 H, Glucose 228 H, Uric Acid 3.0 D, Magnesium 2.4, Total Bilirubin 0.3, AST 14 L, ALT 15, Alkaline Phosphatase 61, Lipase 113 11/12/21 08:12: PT 11.6, INR 1.05 11/12/21 07:30: Sodium Cancelled, Potassium Cancelled, BUN Cancelled, Creatinine Cancelled, Glucose Cancelled, Total Bilirubin Cancelled, AST Cancelled, ALT Cancelled, Alkaline Phosphatase Cancelled, Lipase Cancelled 11/12/21 07:30: WBC 2.7 L, Hgb 11.5 L, Hct 36.4, Plt Count 220 Assessment And Plan - Current Problems (Diagnosis) (1) Bacterial peritonitis Current Visit: Yes Status: Suspected Plan: 1 cc of dark red fluid drawn from the catheter. Will send for culture and gram staining. Will start the patient on cefepime and vanco as per the [place] guide. Will consult Dr. Byrd. Who has experience with these catheters. 11/13 awaiting cultures. she may not be sbp. Will follow up on culture. Advance her diet as tolerated. (2) ESRD (end stage renal disease) Current Visit: Yes Status: Chronic Plan: Will consult Dr. Sandoval who has seen the patient in the past. (3) DVT (deep venous thrombosis) Current Visit: Yes Status: Acute Plan: jugular vein. Discussed with Dr. Sandoval. Will start her on eliquis. Qualifiers: DVT location: upper extremity Affected thrombotic vein of extremity: other upper extremity vein Chronicity: acute Laterality: right Qualified Code(s): I82.621 - Acute embolism and thrombosis of deep veins of right upper extremity (4) Diabetes Onset Date: 10/26/17 Current Visit: No Status: Chronic Plan: will start her on a low dose sliding scale for now. She can eat when she tolerates. At that time will start the patient on her regular long acting insulin Qualifiers: Diabetes mellitus type: type 2 Diabetes mellitus assisted insulin use: with manager terminal use Diabetes mellitus complication detail: with chronic kidney disease Chronic kidney disease stage: stage 4 (severe) (5) Hypertension Onset Date: 10/26/17 Current Visit: No Status: Chronic Plan: Will use intermittent hydralazine for control of the bp. Qualifiers: Hypertension type: primary hypertension Qualified Code(s): I10 - Essential (primary) hypertension Discharge Plan: Home Plan to discharge in: 24 Hours - Code Status/Comfort Care Code Status Assessed: No Physician Review: Patient Assessed, Agree with Above Assessment and Plan Critical Care: No Time Spent Managing PTS Care (In Minutes): 25
[2021-11-13] MEDS: HYDROMORPHONE HCL 0.5 MG/0.5 ML INJ IV PRN (08:12)
[2021-11-13] MEDS: NA CHLORIDE 0.9% 1,000 ML IV SCH (08:22)
[2021-11-13] MEDS ORDERED: predniSONE 5 MG TAB PO SCH (09:00)
[2021-11-13] MEDS ORDERED: HOME MED 1 EA UNK (Tacrolimus [Prograf] 1 MG Capsule) PO SCH ×2 (09:00)
[2021-11-13] MEDS ORDERED: HOME MED 1 EA UNK (Lactulose [Lactulose] 10 GM/15 ML Solution) PO SCH (09:00)
[2021-11-13] MEDS: MAGNESIUM CHLORIDE 64 MG TAB PO SCH (10:22)
[2021-11-13] MEDS: CALCIUM CARBONATE CHEW 500MG TAB PO SCH ×4 (10:23→21:15)
[2021-11-13] MEDS: AMLODIPINE 10 MG TAB PO SCH (10:23)
[2021-11-13] MEDS: LEVOTHYROXINE SOD 0.025 MG TAB PO SCH (10:23)
[2021-11-13] MEDS: GABAPENTIN 100 MG CAP PO SCH ×3 (10:23→21:15)
[2021-11-13] MEDS: LACTULOSE 20 GM/30 ML UCUP PO SCH (10:23)
[2021-11-13] MEDS: carvediloL 3.125 MG TAB PO SCH ×2 (12:38→17:13)
[2021-11-13] MEDS: CALCITROL 0.25 MCG CAP PO SCH (12:39)
[2021-11-13] MEDS ORDERED: HOME MED 1 EA UNK (Tacrolimus [Prograf] 0.5 MG Capsule) PO SCH (21:00)
[2021-11-13] MEDS ORDERED: HOME MED 1 EA UNK (Simvastatin [Simvastatin] 20 MG Tablet) PO SCH (21:00)
[2021-11-13] MEDS: ATORVASTATIN 20 MG TAB PO SCH (21:15)
[2021-11-14] MEDS: NA CHLORIDE 0.9% 1,000 ML IV SCH ×3 (04:22→21:46)
[2021-11-14] MEDS: MORPHINE 2 MG/ML SYR IV PRN ×4 (04:22→22:29)
[2021-11-14] MEDS: HYDROMORPHONE HCL 0.5 MG/0.5 ML INJ IV PRN ×3 (05:52→15:09)
[2021-11-14] MEDS: LEVOTHYROXINE SOD 0.025 MG TAB PO SCH (05:53)
[2021-11-14] MEDS: PANTOPRAZOLE 40MG TABLET PO SCH (05:53)
[2021-11-14] MEDS: carvediloL 3.125 MG TAB PO SCH (05:53)
[2021-11-14 06:07] LABS: Albumin 2.7 g/dL (3.4-5.0); Bilirubin Total 0.3 mg/dL (0.2-1.0); Potassium 4.2 mmol/L (3.5-5.1); Protein, Total 6.1 g/dL (6.4-8.2)
[2021-11-14 06:08] LABS: Thyroid Stimulating Hormone 3.91 uIU/mL (0.360-3.740)
[2021-11-14] MEDS: INSULIN -REGULAR HUMAN 50 UNIT/0.5 ML ML SQ SCH ×4 (08:49→21:50)
[2021-11-14] MEDS: MAGNESIUM CHLORIDE 64 MG TAB PO SCH (08:51)
[2021-11-14] MEDS: predniSONE 5 MG TAB PO SCH (08:51)
[2021-11-14] MEDS: CEFEPIME 1 GM in NA CHLORIDE 0.9% 100 ML IV SCH (08:51)
[2021-11-14] MEDS: FAMOTIDINE 20 MG/2 ML VIAL IV SCH (08:52)
[2021-11-14] MEDS: APIXABAN 5 MG TABLET PO SCH (08:52)
[2021-11-14] MEDS: CALCITROL 0.25 MCG CAP PO SCH (08:52)
[2021-11-14] MEDS: CALCIUM CARBONATE CHEW 500MG TAB PO SCH ×4 (08:52→21:53)
[2021-11-14] MEDS: LACTULOSE 20 GM/30 ML UCUP PO SCH ×2 (08:53→21:53)
[2021-11-14] MEDS: FLUCONAZOLE 100 MG TAB PO SCH (08:54)
[2021-11-14] MEDS: AMLODIPINE 10 MG TAB PO SCH (08:54)
[2021-11-14] MEDS: GABAPENTIN 100 MG CAP PO SCH ×3 (08:55→21:53)
[2021-11-14] MEDS ORDERED: TACROLIMUS PO SCH (09:00)
[2021-11-14] MEDS ORDERED: BISACODYL E.C. 5 MG TAB PO PRN (10:36)
[2021-11-14] MEDS ORDERED: FLEET ENEMA ADULT PR PRN ×2 (10:40→10:56)
[2021-11-14] MEDS: ONDANSETRON 4 MG/2 ML VIAL IV PRN (11:07)
[2021-11-14] MEDS ORDERED: VANCOMYCIN 1 GM in NA CHLORIDE 0.9% 250 ML IVPB ONE (12:00)
[2021-11-14] MEDS: HYDRALAZINE HCL 20 MG/ML VIAL IV PRN (12:14)
[2021-11-14] MEDS: BISACODYL E.C. 5 MG TAB PO SCH (12:14)
--- NOTE | 2021-11-14 13:09 | P.PN ---
Subjective Date of Service: 11/14/21 Primary Care Provider: Tremaine Grijalva Chief Complaint: Abdominal pain Subjective: New changes (increased abdominal pain. Daughter states she has not had a bowel movement since admission. Pt had told me that she had one night. Now changed that) Review of Systems 10-point ROS is otherwise unremarkable Gastrointestinal: Abdominal Pain, Constipation Physical Examination - Vital Signs Temperature: 97.8 F Blood Pressure: 188/76 Pulse: 72 Respirations: 16 Pulse Ox (%): 97 - Physical Exam General: Alert, In no apparent distress HEENT: Atraumatic, PERRLA, EOMI Neck: Supple, JVD not distended Respiratory: Clear to auscultation bilaterally, Normal air movement Cardiovascular: Regular rate/rhythm, Normal S1 S2 Gastrointestinal: Normal bowel sounds, No tenderness Musculoskeletal: No tenderness Integumentary: No rashes Neurological: Normal speech, Normal tone, Normal affect Lymphatics: No axilla or inguinal lymphadenopathy - Studies Microbiology Data (last 24 hrs): 11/12/21 15:49 Body Fluid - Left Abdomen Gram Stain - Final Assessment And Plan - Current Problems (Diagnosis) (1) Bacterial peritonitis Current Visit: Yes Status: Suspected Plan: 1 cc of dark red fluid drawn from the catheter. Will send for culture and gram staining. Will start the patient on cefepime and vanco as per the [place] guide. Will consult Dr. Byrd. Who has experience with these catheters. / cultures negative. The patient has more pain. Will treat her for constipation. Dr. Byrd ordered an enema and dulcolax. Will get her more mobile with PT. Spent 10 min talking to the daughter. Who needs to take on the role of clean out driller/cheerleader(not a pleasant task at times). As she has a 2 new catheters in. She may be a little less mobile when she is at home. (2) ESRD (end stage renal disease) Current Visit: Yes Status: Chronic Plan: Will consult Dr. Sandoval who has seen the patient in the past. (3) DVT (deep venous thrombosis) Current Visit: Yes Status: Acute Plan: jugular vein. Discussed with Dr. Sandoval. Will start her on eliquis. Qualifiers: DVT location: upper extremity Affected thrombotic vein of extremity: other upper extremity vein Chronicity: acute Laterality: right Qualified Code(s): I82.621 - Acute embolism and thrombosis of deep veins of right upper extremity (4) Diabetes Onset Date: 10/26/17 Current Visit: No Status: Chronic Plan: will start her on a low dose sliding scale for now. She can eat when she tolerates. At that time will start the patient on her regular long acting insulin Qualifiers: Diabetes mellitus type: type 2 Diabetes mellitus detention insulin use: with wool and pelt grader use Diabetes mellitus complication detail: with chronic kidney disease Chronic kidney disease stage: stage 4 (severe) (5) Hypertension Onset Date: 10/26/17 Current Visit: No Status: Chronic Plan: Will use intermittent hydralazine for control of the bp. Qualifiers: Hypertension type: primary hypertension Qualified Code(s): I10 - Essential (primary) hypertension Discharge Plan: Home Plan to discharge in: 24 Hours - Code Status/Comfort Care Code Status Assessed: No Physician Review: Patient Assessed, Agree with Above Assessment and Plan Critical Care: No Time Spent Managing PTS Care (In Minutes): 30
--- NOTE | 2021-11-14 16:30 | PN ---
Date of Progress Note: 11/14/2021 Subjective: The patient was admitted with abdominal pain. The patient had failed kidney transplant. The patient had PD catheter placed. The patient is still feeling abdominal pain. Physical Examination: Vital Signs: Blood pressure 182/74, pulse of 81, afebrile. Patient had good urine output of 1900. Chest: Decrease entry in the base. Heart: S1, S2. Systolic murmur. Abdomen: Tenderness in left lower quadrant. PD catheter clean exit side. No tenderness over the right lower quadrant where there is the kidney transplant. Neurological: Alert, oriented x3. Extremities: Plus edema. Laboratory Data: WBC 3.3, H and H 11 over 34. Sodium 139, potassium 4.3, bicarb 21, BUN 31, creatinine 2.4, GFR 20, calcium 7.6, albumin 2.7. Corrected calcium is 8.5. PD fluid was negative for infection. WBC only 2. Vancomycin trough is still pending. Culture still pending. Current Medications: The patient on include: 1. Cefepime. 2. Vancomycin. 3. Promethazine. 4. Eliquis 5 mg. 5. Calcium carbonate. 6. Amlodipine 10 mg. 7. Carvedilol 3.25 b.i.d. 8. Lactulose. 9. Gabapentin. 10. Levothyroxine. 11. Prednisone 2.5. 12. Normal saline at 75. Assessment And Plan: 1. End-stage renal disease, status post kidney transplant. Scheduled for dialysis Tuesday and Tuesday, had PD catheter, never been used yet. Nevertheless, the PD fluid was negative for infection. I going to continue on current dose of prednisone as the patient does not show any adrenal crisis. We will continue her regimen of hemodialysis as a twice a week and we will monitor. 2. Abdominal pain, possible diverticulitis. Peritonitis has been ruled out. Continue current antibiotic, will follow up culture. 3. Kidney transplant, status post rejection. Used to be on Prograf and prednisone. We will continue current dosage. Hold MMF. 4. Diabetes. As by primary. 5. Hypothyroidism. As by primary. Time spent examining the patient, [id number] communicating with the patient and family, discussing the case with the nursing staff, reviewing the data including lab and radiology, placing order 35 minutes KAHLIL/CARMINA Voice ID: [id number] Report ID: [id number] SARAY
[2021-11-14] MEDS: carvediloL 12.5 MG TAB PO SCH (17:48)
[2021-11-14] MEDS: ATORVASTATIN 20 MG TAB PO SCH (21:53)
[2021-11-14] MEDS: APIXABAN 2.5 MG TABLET PO SCH (21:53)
[2021-11-14] MEDS: cloNIDine HCL 0.1 MG TAB PO SCH (21:54)
[2021-11-14] MEDS: TACROLIMUS PO SCH (22:27)
[2021-11-15] MEDS: LEVOTHYROXINE SOD 0.025 MG TAB PO SCH (05:26)
[2021-11-15] MEDS: PANTOPRAZOLE 40MG TABLET PO SCH (05:26)
[2021-11-15] MEDS: carvediloL 12.5 MG TAB PO SCH ×2 (05:27→17:42)
[2021-11-15 07:08] LABS: Albumin 2.4 g/dL (3.4-5.0); Bilirubin Total 0.3 mg/dL (0.2-1.0); Potassium 4.5 mmol/L (3.5-5.1); Protein, Total 5.6 g/dL (6.4-8.2)
[2021-11-15] MEDS: INSULIN -REGULAR HUMAN 50 UNIT/0.5 ML ML SQ SCH ×4 (07:30→20:43)
[2021-11-15] MEDS: cloNIDine HCL 0.1 MG TAB PO SCH ×2 (09:53→20:44)
[2021-11-15] MEDS: LACTULOSE 20 GM/30 ML UCUP PO SCH ×2 (09:53→20:41)
[2021-11-15] MEDS: MAGNESIUM CHLORIDE 64 MG TAB PO SCH (09:53)
[2021-11-15] MEDS: CALCITROL 0.25 MCG CAP PO SCH (09:54)
[2021-11-15] MEDS: AMLODIPINE 10 MG TAB PO SCH (09:54)
[2021-11-15] MEDS: CEFEPIME 1 GM in NA CHLORIDE 0.9% 100 ML IV SCH (09:55)
[2021-11-15] MEDS: predniSONE 5 MG TAB PO SCH (09:55)
[2021-11-15] MEDS: APIXABAN 2.5 MG TABLET PO SCH ×2 (09:55→20:42)
[2021-11-15] MEDS: GABAPENTIN 100 MG CAP PO SCH ×3 (09:55→20:42)
[2021-11-15] MEDS: CALCIUM CARBONATE CHEW 500MG TAB PO SCH ×4 (09:56→20:42)
[2021-11-15] MEDS: TACROLIMUS PO SCH ×2 (09:56→20:43)
[2021-11-15] MEDS: FLUCONAZOLE 100 MG TAB PO SCH (09:56)
[2021-11-15] MEDS: BISACODYL E.C. 5 MG TAB PO SCH (09:56)
--- NOTE | 2021-11-15 12:10 | PN ---
Date of Progress Note: 11/15/2021 Subjective: The patient was admitted with abdominal pain. The patient on supposed to be started PD, currently on hemodialysis twice a week. Physical Examination: Vital Signs: Blood pressure 141/68, pulse of 62, afebrile. Chest: Clear to auscultation. Heart: S1, S2. Regular. Abdomen: Soft, nontender. PD catheter on the left side with dry exit site. Extremities: No edema. Neurological: Alert, oriented x3. No focal. Laboratory Data: WBC 3.3, H and H 11/34. Sodium 142, potassium 4.5, bicarb 21, BUN 33, creatinine 2.4, calcium 7.8, albumin 2.4, corrected calcium is 9. Current Medications: The patient on include; 1. Cefepime. 2. Fluconazole. The patient received vancomycin. 3. Eliquis. 4. Calcium carbonate. 5. Amlodipine 10. 6. Carvedilol 12.5. 7. Clonidine. 8. Gabapentin. 9. IV fluid at 75 per hour. 10. Hydromorphone. Assessment And Plan: 1. End-stage renal disease. Follow up with her primary data review specialist to continue hemodialysis twice a week and preparation for PD. 2. Hypertension, controlled, optimal. 3. Abdominal pain secondary to constipation. Peritonitis has been ruled out as no cell count and culture was negative, continue Levaquin or ciprofloxacin as outpatient. 4. Kidney transplant, maintained on Prograf and prednisone. We will resume Prograf at 0.5 b.i.d., continue on prednisone, resume CellCept that was discontinued before. We will keep holding it for the time being. 5. Pulmonary hypertension as by primary. Time spent examining the patient, [id number] communicating with the patient and family, discussing the case with the nursing staff, reviewing the data including lab and radiology, placing order 35 minutes KAHLIL/CARMINA Voice ID: [id number] Report ID: [id number] MTDD
--- NOTE | 2021-11-15 13:25 | P.PN ---
Subjective Date of Service: 11/15/21 Primary Care Provider: Tremaine Grijalva Chief Complaint: Abdominal pain Subjective: No new changes Review of Systems 10-point ROS is otherwise unremarkable Physical Examination - Vital Signs Temperature: 98.6 F Blood Pressure: 141/68 Pulse: 62 Respirations: 16 Pulse Ox (%): 95 - Physical Exam General: Alert, In no apparent distress HEENT: Atraumatic, PERRLA, EOMI Neck: Supple, JVD not distended Respiratory: Clear to auscultation bilaterally, Normal air movement Cardiovascular: Regular rate/rhythm, Normal S1 S2 Gastrointestinal: Normal bowel sounds, No tenderness Musculoskeletal: No tenderness Integumentary: No rashes Neurological: Normal speech, Normal tone, Normal affect Lymphatics: No axilla or inguinal lymphadenopathy - Studies Microbiology Data (last 24 hrs): 11/12/21 15:49 Body Fluid - Left Abdomen Gram Stain - Final 11/12/21 15:49 Body Fluid - Left Abdomen Culture & Sensitivity - Final No growth. Assessment And Plan - Current Problems (Diagnosis) (1) Bacterial peritonitis Current Visit: Yes Status: Suspected Plan: 1 cc of dark red fluid drawn from the catheter. Will send for culture and gram staining. Will start the patient on cefepime and vanco as per the [place] guide. Will consult Dr. Byrd. Who has experience with these catheters. 11/14 cultures negative. The patient has more pain. Will treat her for constipation. Dr. Byrd ordered an enema and dulcolax. Will get her more mobile with PT. Spent 10 min talking to the daughter. Who needs to take on the role of radial drill press operator/cheerleader(not a pleasant task at times). As she has a 2 new catheters in. She may be a little less mobile when she is at home. (2) ESRD (end stage renal disease) Current Visit: Yes Status: Chronic Plan: Will consult Dr. Sandoval who has seen the patient in the past. (3) DVT (deep venous thrombosis) Current Visit: Yes Status: Acute Plan: jugular vein. Discussed with Dr. Sandoval. Will start her on eliquis. Qualifiers: DVT location: upper extremity Affected thrombotic vein of extremity: other upper extremity vein Chronicity: acute Laterality: right Qualified Code(s): I82.621 - Acute embolism and thrombosis of deep veins of right upper extremity (4) Diabetes Onset Date: 10/26/17 Current Visit: No Status: Chronic Plan: will start her on a low dose sliding scale for now. She can eat when she tolerates. At that time will start the patient on her regular long acting insulin Qualifiers: Diabetes mellitus type: type 2 Diabetes mellitus fdc insulin use: with carton stamper use Diabetes mellitus complication detail: with chronic kidney disease Chronic kidney disease stage: stage 4 (severe) (5) Hypertension Onset Date: 10/26/17 Current Visit: No Status: Chronic Plan: Will use intermittent hydralazine for control of the bp. Qualifiers: Hypertension type: primary hypertension Qualified Code(s): I10 - Essential (primary) hypertension Discharge Plan: Home - Code Status/Comfort Care Code Status Assessed: No Physician Review: Patient Assessed, Agree with Above Assessment and Plan Critical Care: No Time Spent Managing PTS Care (In Minutes): 20
[2021-11-15] MEDS ORDERED: D10W 125 ML IV PRN (13:57)
--- NOTE | 2021-11-15 17:28 | P.PN ---
Subjective Date of Service: 11/13/21 Primary Care Provider: Tremaine Grijalva Chief Complaint: Abdominal pain Subjective: Improving (Pain improving, passing gas, no BM, tolerated clears) Physical Examination - Vital Signs Temperature: 98.6 F Blood Pressure: 141/68 Pulse: 62 Respirations: 16 Pulse Ox (%): 95 - Physical Exam General: Alert, In no apparent distress, Cooperative Gastrointestinal: Soft and benign, Non-distended, No ascites, No tenderness, No masses, No rebound, No guarding - Studies Microbiology Data (last 24 hrs): 11/12/21 15:49 Body Fluid - Left Abdomen Gram Stain - Final 11/12/21 15:49 Body Fluid - Left Abdomen Culture & Sensitivity - Final No growth. Assessment And Plan - Plan Left sided abdominal pain - seems to be intestinal pain, improved with bowel rest @ this time, can consider advancement of diet - continue medical management - antibiotics - serial exams Physician Review: Patient Assessed, Agree with Above Assessment and Plan
--- NOTE | 2021-11-15 17:29 | P.PN ---
Subjective Date of Service: 11/14/21 Primary Care Provider: Tremaine Grijalva Chief Complaint: Abdominal pain - more pain today after advancment of diet, no bowel movements Physical Examination - Vital Signs Temperature: 98.6 F Blood Pressure: 141/68 Pulse: 62 Respirations: 16 Pulse Ox (%): 95 - Physical Exam General: Alert, Mild distress Gastrointestinal: Other (soft, mild LEFT sided abdominal pain, no peritonitis, no rebound, no guarding) - Studies Microbiology Data (last 24 hrs): 11/12/21 15:49 Body Fluid - Left Abdomen Gram Stain - Final 11/12/21 15:49 Body Fluid - Left Abdomen Culture & Sensitivity - Final No growth. Assessment And Plan - Plan Left sided abdominal pain - seems to be intestinal pain, improved with bowel rest @ this time, return to clear liquids - continue medical management - antibiotics - serial exams Physician Review: Patient Assessed, Agree with Above Assessment and Plan
--- NOTE | 2021-11-15 17:32 | P.PN ---
Subjective Date of Service: 11/15/21 Primary Care Provider: Tremaine Grijalva Chief Complaint: Abdominal pain - pain free today, had large bowel movement, tolerated clears Physical Examination - Vital Signs Temperature: 98.6 F Blood Pressure: 141/68 Pulse: 62 Respirations: 16 Pulse Ox (%): 95 - Physical Exam General: Alert, In no apparent distress, Cooperative Gastrointestinal: Soft and benign, No ascites, No tenderness, No masses, No rebound, No guarding - Studies Microbiology Data (last 24 hrs): 11/12/21 15:49 Body Fluid - Left Abdomen Gram Stain - Final 11/12/21 15:49 Body Fluid - Left Abdomen Culture & Sensitivity - Final No growth. Assessment And Plan - Plan Left sided abdominal pain - seems to be intestinal pain - now resolved after BM, advance diet - continue medical management - antibiotics - serial exams Physician Review: Patient Assessed, Agree with Above Assessment and Plan
[2021-11-15] MEDS: ATORVASTATIN 20 MG TAB PO SCH (20:42)
[2021-11-16] MEDS: PANTOPRAZOLE 40MG TABLET PO SCH (05:17)
[2021-11-16] MEDS: LEVOTHYROXINE SOD 0.025 MG TAB PO SCH (05:18)
[2021-11-16] MEDS: carvediloL 12.5 MG TAB PO SCH ×2 (05:18→17:40)
[2021-11-16] MEDS: INSULIN -REGULAR HUMAN 50 UNIT/0.5 ML ML SQ SCH ×3 (07:30→17:41)
--- NOTE | 2021-11-16 08:54 | P.DS ---
Admission Date: 11/13/21 Discharge Date: 11/16/21 Primary Care Provider: Tremaine Grijalva Disposition: ROUTINE DISCHARGE Discharge Condition: GOOD Reason for Admission: Abdominal pain - Problems (1) Bacterial peritonitis Current Visit: Yes Status: Suspected (2) ESRD (end stage renal disease) Current Visit: Yes Status: Chronic (3) DVT (deep venous thrombosis) Current Visit: Yes Status: Acute Qualifiers: DVT location: upper extremity Affected thrombotic vein of extremity: other upper extremity vein Chronicity: acute Laterality: right Qualified Code(s): I82.621 - Acute embolism and thrombosis of deep veins of right upper extremity (4) Diabetes Onset Date: 10/26/17 Current Visit: No Status: Chronic Qualifiers: Diabetes mellitus type: type 2 Diabetes mellitus alf insulin use: with alf use Diabetes mellitus complication detail: with chronic kidney disease Chronic kidney disease stage: stage 4 (severe) (5) Hypertension Onset Date: 10/26/17 Current Visit: No Status: Chronic Qualifiers: Hypertension type: primary hypertension Qualified Code(s): I10 - Essential (primary) hypertension Brief History of Present Illness: Patient is here after 1 day of abdominal pain. She was recently admitted to [facility] for initiation of dialysis. The patient had a right upper chest catheter placed for HD and a left abdomen peritoneal catheter placed. The patient then spent 2 weeks in a center. She went home this past Tuesday. Had dialysis on Tuesday and Tuesday this week. The patient had her Peritoneal catheter flushed on Tuesday. Started feeling discomfort over the site the next day. Which worsened and brought her to the ER. The patient was found to have a right internal jugular vein dvt(same side as the HD cath). Hospital Course: Patient was admitted for possible sbp. However her cultures are negative. She is doing better with bowel rest and laxatives. Will discharge her after dialysis today. put her on cipro. follow up with Mrs Grijalva in a week Vital Signs/Physical Exam: Temp Pulse Resp BP Pulse Ox 97.6 F 59 18 135/61 96 11/16/21 08:00 11/16/21 08:00 11/16/21 08:00 11/16/21 08:00 11/16/21 08:00 General: Alert, In no apparent distress HEENT: Atraumatic, PERRLA, EOMI Neck: Supple, JVD not distended Respiratory: Clear to auscultation bilaterally, Normal air movement Cardiovascular: Regular rate/rhythm, Normal S1 S2 Gastrointestinal: Normal bowel sounds, No tenderness Musculoskeletal: No tenderness Integumentary: No rashes Neurological: Normal speech, Normal tone, Normal affect Lymphatics: No axilla or inguinal lymphadenopathy Laboratory Data at Discharge: WBC 3.3 K/uL (4.3-10.9) L D 11/13/21 05:59 Hgb 11.0 g/dL (12.0-15.0) L 11/13/21 05:59 Hct 34.0 % (36.0-45.0) L 11/13/21 05:59 Plt Count 199 K/uL (152-406) 11/13/21 05:59 PT 11.6 SECONDS (9.5-12.5) 11/12/21 08:12 INR 1.05 11/12/21 08:12 Sodium 142 mmol/L (136-145) 11/15/21 05:39 Potassium 4.5 mmol/L (3.5-5.1) 11/15/21 05:39 BUN 33 mg/dL (7-18) H 11/15/21 05:39 Creatinine 2.45 mg/dL (0.55-1.3) H 11/15/21 05:39 Glucose 100 mg/dL (74-106) 11/15/21 05:39 Uric Acid 3.0 mg/dL (2.6-6.0) D 11/12/21 08:20 Magnesium 2.4 mg/dL (1.8-2.4) 11/12/21 08:20 Total Bilirubin 0.3 mg/dL (0.2-1.0) 11/15/21 05:39 AST 10 U/L (15-37) L 11/15/21 05:39 ALT 12 U/L (12-78) 11/15/21 05:39 Alkaline Phosphatase 47 U/L (45-117) 11/15/21 05:39 Lipase 113 U/L (73-393) 11/12/21 08:20 Home Medications: Amlodipine [Norvasc*] 10 mg PO DAILY 07/04/19 Calcium Carbonate [Tums Regular*] 500 mg PO QID 07/04/19 Gabapentin [Neurontin*] 100 mg PO TID 07/04/19 Magnesium Chloride [Slow-Mag*] 64 mg PO DAILY 07/04/19 Omeprazole [Prilosec] 40 mg PO DAILY 07/04/19 Simvastatin 40 mg PO BEDTIME 07/04/19 Tacrolimus [Prograf] 1 cap PO BID 07/04/19 predniSONE [Prednisone*] 5 mg PO DAILY 07/04/19 Calcitriol [Rocaltrol] 1 mcg PO DAILY 06/23/21 Furosemide [Lasix] 20 mg PO BID 06/23/21 Levothyroxine Sodium 25 mcg PO DAILY 06/23/21 Insulin Aspart [Novolog Flexpen] 3 unit SQ SEECOM 08/06/21 Insulin NPH Human [Novolin N (Humulin N)*] 25 unit SQ SEECOM 08/06/21 Promethazine Tab [Phenergan*] 25 mg PO Q8HR PRN 08/06/21 Apixaban [Eliquis] 5 mg PO BID 11/12/21 Fluconazole [Diflucan] 50 mg PO BID 11/12/21 Lactulose 10 gm PO DAILY 11/12/21 cloNIDine HCL [Clonidine HCl] 0.1 mg PO BID 11/12/21 Ciprofloxacin HCl [Cipro 500 MG Tablet] 500 mg PO DAILY 5 Days #5 tab 11/16/21 New Medications: Ciprofloxacin HCl [Cipro 500 MG Tablet] 500 mg PO DAILY 5 Days #5 tab Diet: Renal Activity: Ad amirah Followup: Karli Grijalva FNP [facility] [Primary Care Provider] - 1 Week Time spent managing pt's care (in minutes): 30
[2021-11-16] MEDS: AMLODIPINE 10 MG TAB PO SCH ×2 (09:00→13:04)
[2021-11-16] MEDS: cloNIDine HCL 0.1 MG TAB PO SCH ×2 (09:00→13:05)
[2021-11-16 09:59] VITALS: O2SAT 96
[2021-11-16] MEDS: CALCIUM CARBONATE CHEW 500MG TAB PO SCH ×3 (10:17→17:40)
[2021-11-16] MEDS: LACTULOSE 20 GM/30 ML UCUP PO SCH (10:17)
[2021-11-16] MEDS: MAGNESIUM CHLORIDE 64 MG TAB PO SCH (10:18)
[2021-11-16] MEDS: predniSONE 5 MG TAB PO SCH (10:18)
[2021-11-16] MEDS: TACROLIMUS PO SCH (10:18)
[2021-11-16] MEDS: CALCITROL 0.25 MCG CAP PO SCH (10:18)
[2021-11-16] MEDS: FLUCONAZOLE 100 MG TAB PO SCH (10:18)
[2021-11-16] MEDS: APIXABAN 2.5 MG TABLET PO SCH (10:19)
[2021-11-16] MEDS: GABAPENTIN 100 MG CAP PO SCH ×2 (10:19→13:09)
[2021-11-16] MEDS: BISACODYL E.C. 5 MG TAB PO SCH (10:19)
[2021-11-16] MEDS ORDERED: VANCOMYCIN 1 GM in NA CHLORIDE 0.9% 250 ML IV SCH (12:00)
--- NOTE | 2021-11-16 14:05 | P.PN ---
Subjective Date of Service: 11/16/21 Primary Care Provider: Tremaine Grijalva Chief Complaint: Abdominal pain Subjective: No new changes Physical Examination - Vital Signs Temperature: 97.6 F Blood Pressure: 158/75 Pulse: 68 Respirations: 18 Pulse Ox (%): 96 - Physical Exam General: In no apparent distress HEENT: Atraumatic, Normocephalic Neck: Supple, JVD not distended Respiratory: Other (symmetric chest expansion) Cardiovascular: No rubs, No murmurs Gastrointestinal: Soft and benign, No guarding Musculoskeletal: No clubbing Integumentary: No warmth Neurological: Normal speech, Normal tone Lymphatics: No axilla or inguinal lymphadenopathy Urinary: Other (no bladder distention) External genitalia: Deferred Rectal: Deferred Assessment And Plan - Plan # Failed KTx, resumed dialysis in September 2021 S/p kidney transplant in December 2009 at [facility] now failed Hx of R renal cell carcinoma s/pR nephrectomy in October 2016 Hx of chronic urinary obstrxn HD received today. Cont HD Mon & Tue. Started on PD 2-3 wks ago Renal diet Primary nephro is Dr. Souleymane Sears, tel [phone] Home dialysis nurse Sharon, tel [phone] # Abdominal pain, r/o PD related peritonitis Reports 1 day hx of LLQ abdominal & L flank pain Abx received via Cefepime + Vanc IV PD fluid gm stain neg PD fluid culture neg May dc abx Pain improved, mild, intermittent Denies constipation No e/o diverticulitis on CT # IS Home IS via Prograf + Prednisone Cont Prograf at 0.5 mg po bid Cont Pred at 2.5 mg po daily MMF 500 mg po q12h was d/c'ed in early 2020 # Secondary hyperPTH, hypocalcemia Hx of osteoporosis Calcitriol, Phos binder, D3 suppl # Htn BP better controlled Cont current regimen # Pulmonary Htn Hx of COPD/chronic bronchitis & covid [address] in Sep 2020 showed multiple right lower lobe nodules & pulmo Htn w/ dilated main pulmo artery. TTE in December 2020 showed normal LVEF > 70%, LA severely dilated, gr. 1 diastolic dysfxn, unable to estimate PASP or RVSP. BNP sig elevated HD as above # Cryptococcal meningitis/pneumonia Cont Fluconazole 200 mg po daily # DM2 Mngt per primary team # Hypothyroidism Levothyroxine # HLD Statin # GERD Omeprazole # Dispo Dc today Physician Review: Patient Assessed, Agree with Above Assessment and Plan
[2021-11-16] MEDS: HYDRALAZINE HCL 20 MG/ML VIAL IV PRN (15:11)
[2021-11-16] MEDS: HYDROMORPHONE HCL 0.5 MG/0.5 ML INJ IV PRN (15:12)
[2021-11-16 21:57] VITALS: BP 158/75; TEMP 97.6
== END 2021-11-16 17:40 | disposition home or self-care (01) | DRG 391 ==
LOC: ER 06:33 → ERHOLD 15:04 → 2ND 18:39 → OBSVTOIN 11-13 18:54
PROVIDERS: ADMIT Internal Medicine; ATTEND Internal Medicine
PROC: 5A1D70Z Performance of Urinary Filtration, Intermittent, Less than 6 Hours Per Day (ICD-10-PCS; principal; 2021-11-16)
DX: K59.00 Constipation, unspecified (principal); N18.6 End stage renal disease; T82.818A Embolism due to vascular prosthetic devices, implants and grafts, initial encounter; T86.12 Kidney transplant failure; I13.2 Hypertensive heart and chronic kidney disease with heart failure and with stage 5 chronic kidney disease, or end stage renal disease; I50.22 Chronic systolic (congestive) heart failure; N25.81 Secondary hyperparathyroidism of renal origin; Z94.0 Kidney transplant status; E11.22 Type 2 diabetes mellitus with diabetic chronic kidney disease; N30.90 Cystitis, unspecified without hematuria; I27.20 Pulmonary hypertension, unspecified; E03.9 Hypothyroidism, unspecified; N13.9 Obstructive and reflux uropathy, unspecified; E83.51 Hypocalcemia; J44.9 Chronic obstructive pulmonary disease, unspecified; E78.5 Hyperlipidemia, unspecified; K21.9 Gastro-esophageal reflux disease without esophagitis; R91.8 Other nonspecific abnormal finding of lung field; E11.621 Type 2 diabetes mellitus with foot ulcer; L97.519 Non-pressure chronic ulcer of other part of right foot with unspecified severity; Z89.429 Acquired absence of other toe(s), unspecified side; Z86.16 Personal history of COVID-19; Z90.5 Acquired absence of kidney; Z99.2 Dependence on renal dialysis; Z85.528 Personal history of other malignant neoplasm of kidney; Z20.822 Contact with and (suspected) exposure to COVID-19
CPT/HCPCS: 36415; 71045; 71250; 74176; 80048; 80053; 80076; 82947; 83605; 83690; 83735; 83880; 84439; 84443; 84484; 84550; 85025; 85610; 87040; 87070; 89050; 90935; 93005; 93971; 97161; 97530; 99285; G0378; J0360; J0692; J1170; J1644; J1815; J2270; J2405; J3370; J3490; J7030; J7050; J7512; Q0169; U0003

== ENCOUNTER 2022-05-23 18:06 | Observation (INO) | payer OTHER ==
--- OUTSIDE RECORDS SUMMARY | 2022-05-23 18:30 | XMS REPORT | Continuity of Care Document ---
:1955 Author Organization [facility] t Address [address] [place] [address] Care Team Providers Name Role Phone Rebecca PILLAI, Regan Prabhakar Primary Care Physician [phone] Az Guerrero Attending Clinician Unavailable Lexis Long Attending Clinician Unavailable Marcella Stewart Attending Clinician Unavailable Courtney Pike RN Attending Clinician Unavailable Estela SORIANO, Billie Attending Clinician Unavailable Inder Bhat MD Attending Clinician Thuy Vela RN Attending Clinician Unavailable Chaim PILLAI, Laina Moon Attending Clinician Joceline Barton MD Attending Clinician Onelia Bailey MD Attending Clinician Raghu Sheehan MD Attending Clinician Uzma Nieves MA Attending Clinician Unavailable Lupillo PILLAI, Jhon Attending Clinician Yolanda PILLAI, Az French Attending Clinician [phone] Kayce Parks DO Attending Clinician Adele PILLAI, Ellen Attending Clinician Cookie PILLAI, Reynaldo Attending Clinician Magnolia Gonzalez MD Attending Clinician Rishi Traylor MD Attending Clinician MD REYNALDO NAVARRETE Attending Clinician Unavailable Renetta PILLAI, Souleymane Ocampo Attending Clinician Artur SORIANO, Maki Attending Clinician Unavailable Lincoln PILLAI, Maya Ascencio Attending Clinician Lona Palma Attending Clinician Unavailable Tanya MENDOZA, Jus Negrete Attending Clinician Kiley Ramírez RN Attending Clinician Unavailable Sharifa Hansen MD Attending Clinician Paola Lobato MD Attending Clinician [phone] Demetra Short CRNA Attending Clinician MD SHARIFA HANSEN Attending Clinician Unavailable SANDRA CERVANTES Attending Clinician Unavailable Sophia Rosales MA Attending Clinician Unavailable Jasmyn Angel Attending Clinician Unavailable Kezia Peck Attending Clinician Unavailable Darline Serrano MA Attending Clinician Unavailable Lazara Ha MA Attending Clinician Unavailable Yuliana Billy RN Attending Clinician Unavailable Ana Laura Combs MD Attending Clinician Suellen PILLAI, [facility] Attending Clinician MD ANA LAURA COMBS Attending Clinician Unavailable BHUMI CROWE Attending Clinician Unavailable YULISA HARVEY Attending Clinician Unavailable KYRA PATEL Attending Clinician Unavailable Physician, No Primary or Family Admitting Clinician UnavailMarcella Frank Admitting Clinician Unavailable TAHO DAI (WELLHEAD PUMPER) Admitting Clinician Unavailable JOCELINE BARTON Admitting Clinician Unavailable ELLEN ANGULO Admitting Clinician Unavailable MD ELLEN ANGULO Admitting Clinician Unavailable SHARIFA HANSEN Admitting Clinician Unavailable MD SHARIFA HANSEN Admitting Clinician Unavailable ANA LAURA COMBS Admitting Clinician Unavailable MD ANA LAURA COMBS Admitting Clinician Unavailable KYRA PATEL Admitting Clinician Unavailable Payers Payer Name Policy Type Policy Number Effective Date Expiration Date Elin rashid REDD[place] 53 [id number] 2021 [employer] DUAL 00:00:00 [facility] 111 [id number] [employer] [facility] Problems Condition Condition Condition Status Onset Resolution Last Treating Co mments Source Name Details Category Date Date Treatment Clinician Date 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 colitis 4-20 st 00:00: Hospita 00 l Left lower Left lower Disease Active M ethodi quadrant quadrant 4-18 st abdominal abdominal 00:00: [facility] pain pain 00 l Postproced Postproced Disease Active M ethodi ural ural 3- pneumothor pneumothor 00:00: Ho spita ax ax 00 l ESRD (end ESRD (end Disease Active Met hodi stage stage 3-29 st renal renal 00:00: Hospita disease) disease) 00 l on on dialysis dialysis Uremia Uremia Disease Active Methodi 3 st 00:00: Hospita 00 l CKD CKD Disease Active Methodi (chronic (chronic 3- kidney kidney 00:00: Hospita disease) disease) 00 l stage 5, stage 5, GFR less GFR less than 15 than 15 ml/min ml/min Generalize Generalize Disease Active M ethodi d weakness d weakness 3- st 00:00: Hospita 00 l JOE (acute JOE (acute Disease Active M ethodi kidney kidney 1 st injury) injury) 00:00: Hospita 00 l Age-relate Age-relate Disease Active M ethodi d d 7 st osteoporos osteoporos 00:00: Ho spita is without is without 00 l current current pathologic pathologic al al fracture fracture Meningitis Meningitis Disease Active M ethodi , , 2- st cryptococc cryptococc 00:00: Ho spita al al 00 l 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 00:00: Hospit a mellitus mellitus 00 l with with nephropath nephropath y y Vitamin D Vitamin D Disease Active Met hodi deficiency deficiency 2-18 st 00:00: Hospita 00 l UTI UTI Disease Active Methodi (urinary (urinary 2-17 st tract tract 00:00: Hospita infection) infection) 00 l Meningitis Meningitis Disease Active M ethodi due to due to [address] Cryptococc Cryptococc 00:00: Ho spita us species us species 00 l COVID-19 COVID-19 Disease Active Metho di virus virus 08-31 st detected detected 00:00: Hospit a 00 l Localized Localized Disease Active Met hodi osteoporos osteoporos 1 st is of is of 00:00: Hospita [...] Frequency Disease Active Met [facility]odi of of 4-24 st urination urination 00:00: [facility] 00 l Complicate Complicate Disease Active M ethodi d UTI d UTI 4-24 st (urinary (urinary 00:00: Hospit a tract tract 00 l infection) infection) Other Other Disease Active Methodi constipati constipati 8- st on on 00:00: Hospita 00 l Immunosupp Immunosupp Disease Active M ethodi ressive ressive 4-01 st management management 00:00: Ho [facility]ita encounter encounter 00 l following following kidney kidney transplant transplant 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 00:00: [facility] 00 l Preop Preop Disease Active Methodi examinatio examinatio 10-30 st n n 00:00: Hospita 00 l Closed Closed Disease Active Methodi displaced displaced 02-23 fracture fracture 00:00: Hospit a of of 00 l tuberosity tuberosity of left of left calcaneus calcaneus Dehydratio Dehydratio Disease Active M ethodi n n 12-29 st 00:00: Hospita 00 l Pseudophak Pseudophak Disease Active M ethodi ia ia 12-27 00:00: Hospita 00 l 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 00:00: Hospit a of right of right 00 l eye, eye, moderate moderate stage stage Pseudophak Pseudophak Disease Active M ethodi ia ia 12-27 00:00: Hospita 00 l Uncontroll Uncontroll Disease [...] is 00 l Pyelonephr Pyelonephr Disease Active M ethodi itis itis 10-26 st 00:00: Hospita 00 l Abnormal Abnormal Disease Active 2016-08 Metho di serum serum 010 st thyroid thyroid 00:00: Hospita stimulatin stimulatin 00 l g hormone g hormone (TSH) (TSH) level level Renal mass Renal mass Disease Active [facility] Proliferat Proliferat Disease Active M ethodi arturo arturo [address] st diabetic diabetic 00:00: Hospit a retinopath retinopath 00 l y y associated associated with type with 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 Essential Essential Disease Active Met [facility]odi hypertensi hypertensi 1-24 st on on 00:00: Hospita 00 l [...] Disease Active Met [facility]odi deficiency deficiency 08-24 00:00: Hospita 00 l Diarrhea Diarrhea Disease Active Metho di 08-07 00:00: Hospita 00 l Vitamin D Vitamin D Disease Active Met [facility] deficiency deficiency 04-13 00:00: Hospita 00 l Nonspecifi Nonspecifi Disease [...] Essential Disease Active Met [facility]odi (primary) (primary) 04-13 hypertensi hypertensi 00:00: Ho spita on on 00 l 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 04-13 associated associated 00:00: Ho spita with type with type 00 l 2 diabetes 2 diabetes mellitus mellitus Encounter Encounter Disease Active Met [facility] for for 04-13 aftercare aftercare 00:00: [facility] following following 00 l kidney kidney transplant transplant 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 [id number] prison Problem Active Com mon current Spirit use of - [facility] insulin [facility] [id number] Dyslipidem Problem Active Co mmon ia [facility] [id number] Gastroesop Problem Active Co mmon hageal [facility] reflux - [facility] disease, esophagiti [facility] s presence Medica l not Center specified [id number] Type 2 Problem Active Common diabetes Spirit mellitus - [facility] with other diabetic [facility] kidney Medical complicati Center on [id number] Encounter Problem Active Com mon for Spirit immunizati - [facility] on [facility] [id number] Environmen Problem Active Co mmon clemente [facility] allergies - [facility] [id number] Age Problem Active Common related [facility] al fracture presence Allergies, Adverse Reactions, Alerts Allergy Allergy Status Severity Reaction(s) Onset Inactive Treating Comm ents Source Name Type Date Date Clinician No Known DA Active U [facility] Allergie 5-10 Clear s 00:00: [place] 00 [facility] No Known Propensi Active Method i Drug ty to 02-24 st Allerg adverse 00:00: Hospita s reaction 00 l s to drug Family History Family Member Diagnosis Comments Start Date Stop Date Source Natural father Diabetes [facility] Natural sister Diabetes [facility] Social History Social Habit Start Date Stop Date Quantity Comments Source Exposure to Not sure [facility] SARS-CoV-2 Hospital (event) History of [facility] - Tobacco Use [facility] Alcohol intake 2022-01-13 2022-01-13 Current [facility] 00:00:00 00:00:00 non-drinker of Hospital alcohol (finding) Tobacco use and 2015-01-02 2015-01-02 Never used [facility] exposure 00:00:00 00:00:00 Medical Center Sex Ass[birth year] [facility] 00:[facility] 00:00:00 Hospital Smoking Status Start Date Stop Date Source Never Smoker [facility] Medications Ordered Filled Start Stop Current Ordering Indication Dosage Frequency Signature Comments Components Source Medication Medication Date Date Medication? Clinician (SIG) Name Name levoFLOXaci levoFLOXaci 0 2021- No levoFLOXac n 250 MG n 250 MG 02-1016 in 250 MG 00:00: 00:00 00 :00 aspirin Yes 81mg QD Take 81 mg Meth sintia (ECOTRIN) 6-[address] 81 MG 14:29: daily. Hospita enteric 14 l coated tablet gabapentin Yes 100mg Q.[id number] Take 100 Methodi (NEURONTIN) 6-15 [id number] mg by s t 100 mg 14:29: 3D mouth 3 Hospita capsule 14 (three) l times a day. calcitrioL Yes .5ug QD Take 0.5 Met hodi (ROCALTROL) 6-[address] 0.5 MCG 14:29: mouth Hospita capsule 14 daily. l atorvastati Yes 20mg QD Take 20 mg Methodi n (LIPITOR) 6-[address] 20 mg 14:29: daily. Hospita tablet 14 Default OP l ins levothyroxi Yes 50ug QD Take 50 Met hodi ne 6-[address] (SYNTHROID) 14:29: mouth Hospi ta 50 mcg 14 daily. l tablet apixaban Yes 5mg Q.5D Take 5 mg Meth sintia (ELIQUIS) 5 6-[address] mg tablet 14:29: (two) Hospita 14 times a l [place] [id number] 1{tbl} Q4H Take 1 M ethodi en-codeine 6-[address] (TYLENOL 14:29: mouth Hospita WITH 14 every 4 l CODEINE #3) (four) 300-30 mg hours as per tablet needed for moderate pain .acute pain. insulin Yes Inject Methodi degludec 6-[address] (Tresiba 14:29: skin. Hospita FlexTouch 14 l U-100) 100 unit/mL (3 mL) subcutaneou s pen insulin Yes Inject Methodi lispro 6-[address] (HUMALOG 14:29: skin. Hospita KWIKPEN 14 l INSULIN SUBQ) ferrous Yes 325mg QD Take 325 Metho di sulfate 6-[address] (iron) 325 14:29: mouth Hospit a (65 FE) MG 14 daily with l tablet breakfast. magnesium Yes Take by Metho di oxide 240 6-[address] mg 14:29: Hospita magnesium 14 l powder in packet ergocalcife Yes Take by Met hodi rol, 6-[address] vitamin D2, 14:29: Hospit a (VITAMIN D2 14 l ORAL) aspirin Yes 81mg QD Take 81 mg Meth sintia (ECOTRIN) 6-[address] 81 MG 14:29: daily. Hospita enteric 14 l coated tablet gabapentin Yes 100mg Q.[id number] Take 100 Methodi (NEURONTIN) 6-15 [id number] mg by s t 100 mg 14:29: 3D mouth 3 Hospita capsule 14 (three) l times a day. calcitrioL Yes .5ug QD Take 0.5 Met hodi (ROCALTROL) 6-[address] 0.5 MCG 14:29: mouth Hospita capsule 14 daily. l atorvastati Yes 20mg QD Take 20 mg Methodi n (LIPITOR) 6-[address] 20 mg 14:29: daily. Hospita tablet 14 Default OP l ins levothyroxi Yes 50ug QD Take 50 Met hodi ne 6-[address] (SYNTHROID) 14:29: mouth Hospi ta 50 mcg 14 daily. l tablet apixaban Yes 5mg Q.5D Take 5 mg Meth sintia (ELIQUIS) 5 6-[address] mg tablet 14:29: (two) Hospita 14 times [place] [id number] 1{tbl} Q4H Take 1 M ethodi en-codeine 6-[address] (TYLENOL 14:29: mouth Hospita WITH 14 every 4 l CODEINE #3) (four) 300-30 mg hours as per tablet needed for moderate pain .acute pain. insulin Yes Inject Methodi degludec 6-[address] (Tresiba 14:29: skin. Hospita FlexTouch 14 l U-100) 100 unit/mL (3 mL) subcutaneou s pen insulin Yes Inject Methodi lispro 6-[address] (HUMALOG 14:29: skin. Hospita KWIKPEN 14 l INSULIN SUBQ) ferrous Yes 325mg QD Take 325 Metho di sulfate 6-[address] (iron) 325 14:29: mouth Hospit a (65 FE) MG 14 daily with l tablet breakfast. magnesium Yes Take by Metho di oxide 240 6-[address] mg 14:29: Hospita magnesium 14 l powder in packet ergocalcife Yes Take by Met hodi rol, 6-[address] vitamin D2, 14:29: Hospit a (VITAMIN D2 14 l ORAL) aspirin Yes 81mg QD Take 81 mg Meth sintia (ECOTRIN) 6-[address] 81 MG 14:29: daily. Hospita enteric 14 l coated tablet gabapentin Yes 100mg Q.[id number] Take 100 Methodi (NEURONTIN) 6-15 [id number] mg by s t 100 mg 14:29: 3D mouth 3 Hospita capsule 14 (three) l times a day. calcitrioL Yes .5ug QD Take 0.5 Met hodi (ROCALTROL) 6-[address] 0.5 MCG 14:29: mouth Hospita capsule 14 daily. l atorvastati Yes 20mg QD Take 20 mg Methodi n (LIPITOR) 6-[address] 20 mg 14:29: daily. Hospita tablet 14 Default OP l ins levothyroxi Yes 50ug QD Take 50 Met hodi ne 6-[address] (SYNTHROID) 14:29: mouth Hospi ta 50 mcg 14 daily. l tablet apixaban 0 Yes 5mg Q.5D Take 5 mg Meth sintia (ELIQUIS) 5 6-[address] mg tablet 14:29: (two) Hospita 14 times a l day. acetaminoph 0 Yes [id number] 1{tbl} Q4H Take 1 M ethodi en-codeine 6-[address] (TYLENOL 14:29: mouth Hospita WITH 14 every 4 l CODEINE #3) (four) 300-30 mg hours as per tablet needed for moderate pain .acute pain. insulin Yes Inject Methodi degludec 6-[address] (Tresiba 14:29: skin. Hospita FlexTouch 14 l U-100) 100 unit/mL (3 mL) subcutaneou s pen insulin Yes Inject Methodi lispro -[address] (HUMALOG 14:29: skin. Hospita KWIKPEN 14 l INSULIN SUBQ) ferrous Yes 325mg QD Take 325 Metho di sulfate 6-[address] (iron) 325 14:29: mouth Hospit a (65 FE) MG 14 daily with l tablet breakfast. magnesium Yes Take by Metho di oxide 240 6-[address] mg 14:29: Hospita magnesium 14 l powder in packet ergocalcife Yes Take by Met hodi rol, 6-[address] vitamin D2, 14:29: Hospit a (VITAMIN D2 14 l ORAL) fluconazole 2021- No 100mg QD Take 1 Me thodi (DIFLUCAN) 01-13-[address] 100 MG 00:00: 04:59 (100 mg Hospita tablet 00 :00 total) by l mouth daily for 30 days. fluconazole 2021- No 100mg QD Take 1 Me thodi (DIFLUCAN) 01-13-[address] 100 MG 00:00: 04:59 (100 mg Hospita tablet 00 :00 total) by l mouth daily for 30 days. fluconazole 2021- No 100mg QD Take 1 Me thodi (DIFLUCAN) 01-13-[address] 100 MG 00:00: 04:59 (100 mg Hospita tablet 00 :00 total) by l mouth daily for 30 days. fluconazole 2021-2021- No 400mg QD Take 400 Methodi (DIFLUCAN) 6-03 06-[address] 200 MG 16:17: 00:00 mouth Hospita tablet 54 :00 daily. l fluconazole 2021-2021- No 400mg QD Take 400 Methodi (DIFLUCAN) 6-03 06-[address] 200 MG 16:17: 00:00 mouth Hospita tablet 54 :00 daily. l fluconazole 2021- No 400mg QD Take 400 Methodi (DIFLUCAN) 6 06-[address] 200 MG 16:17: 00:00 mouth Hospita tablet 54 :00 daily. l fluconazole 2021-2021- No 400mg QD Take 2 Me th[facility] (DIFLUCAN) 6- 06-[address] 200 MG 00:00: 00:00 (400 mg Hospita tablet 00 :00 total) by l mouth daily for 30 days. fluconazole 2021-2021- No 400mg QD Take 2 Me th[facility] (DIFLUCAN) 6- 06-[address] 200 MG 00:00: 00:00 (400 mg Hospita tablet 00 :00 total) by l mouth daily for 30 days. fluconazole 2021- No 400mg QD Take 2 Me th[facility] (DIFLUCAN) 6- 06-[address] 200 MG 00:00: 00:00 (400 mg Hospita tablet 00 :00 total) by l mouth daily for 30 days. furosemide 2021- No 40mg Q.5D Take 1 Meth sintia (LASIX) 40 4-26 05-27 tablet (40 st mg tablet 00:00: 04:59 mg total) Ho spita 00 :00 by mouth 2 l (two) times a day for 30 days. hydrALAZINE 2021- No 50mg Q.5D Take 1 Met hodi (APRESOLINE 4-26 05-27 tablet (50 s t ) 50 MG 00:00: 04:59 mg total) [facility] tablet 00 :00 by mouth 2 l (two) times a day for 30 days. furosemide 2021- No 40mg Q.5D Take 1 Meth sintia (LASIX) 40 4-26 05-27 tablet (40 st mg tablet 00:00: 04:59 mg total) Ho spita 00 :00 by mouth 2 l (two) times a day for 30 days. hydrALAZINE 2021- No 50mg Q.5D Take 1 Met hodi (APRESOLINE 4-26 05-27 tablet (50 s t ) 50 MG 00:00: 04:59 mg total) [facility] tablet 00 :00 by mouth 2 l (two) times a day for 30 days. furosemide 2021- No 40mg Q.5D Take 1 Meth sintia (LASIX) 40 11-24-27 tablet (40 st mg tablet 00:00: 04:59 mg total) Ho spita 00 :00 by mouth 2 l (two) times a day for 30 days. hydrALAZINE 2021- No 50mg Q.5D Take 1 Met hodi (APRESOLINE 11-24-27 tablet (50 s t ) 50 MG 00:00: 04:59 mg total) [facility] tablet 00 :00 by mouth 2 l (two) times a day for 30 days. traMADoL 2021- No [id number] 50mg Q8H Take 1 Metho di (Ultram) 50 - 05-02 tablet (50 s t mg tablet 00:00: 04:59 mg total) Ho spita 00 :00 by mouth l every 8 (eight) hours as needed for moderate pain for up to 5 days .acute pain. traMADoL 2021- No [id number] 50mg Q8H Take 1 Metho di (Ultram) 50 - 05-02 tablet (50 s t mg tablet 00:00: 04:59 mg total) Ho spita 00 :00 by mouth l every 8 (eight) hours as needed for moderate pain for up to 5 days .acute pain. traMADoL 2021- [place] [id number] 50mg Q8H Take 1 Metho di (Ultram) 50 4- 05-02 tablet (50 s t mg tablet 00:00: 04:59 mg total) Ho spita 00 :00 by mouth l every 8 (eight) hours as needed for moderate pain for up to 5 days .acute pain. metoprolol 2021- No 12.5mg QD Take 0.5 Methodi succinate 3-30 -[address] XL 00:00: 04:59 (12.5 mg Hospita (TOPROL-XL) 00 :00 total) by l 25 mg 24 hr mouth tablet daily for 30 days. epoetin 2021- No [id number] 8000U Q.[id number] Inject 2 Methodi fadia -30 -30 [id number] mL (8,000 st (EPOGEN) 00:00: 04:59 3W Units Hospita 4,000 00 :00 total) l unit/mL under the injection skin 3 (three) times a week for 30 days .ESRD on Dialysis. cinacalcet 2021- No 30mg QD Take 1 Meth sintia (SENSIPAR) 10-28-30 tablet (30 st 30 MG 00:00: 04:59 mg total) Hospit a tablet 00 :00 by mouth l daily with breakfast for 30 days. levothyroxi 2021- No 50ug QD Take 1 Met hodi ne 10-28-30 tablet (50 st (SYNTHROID) 00:00: 04:59 mcg total) Hospita 50 mcg 00 :00 by mouth l tablet daily for 30 days. insulin NPH 15U QD Inject Met hodi (HumuLIN-N) 10-[address] 100 unit/mL 00:00: 04:59 (15 Units Hospita injection 00 :00 total) l under the skin daily before breakfast for 30 days. metoprolol No 12.5mg QD Take 0.5 Methodi succinate 10-[address] XL 00:00: 04:59 (12.5 mg Hospita (TOPROL-XL) 00 :00 total) by l 25 mg 24 hr mouth tablet daily for 30 [place] [id number] 8000U Q.[id number] Inject 2 Methodi fadia 10-28 [id number] mL (8,000 st (EPOGEN) 00:00: 04:59 3W Units Hospita 4,000 00 :00 total) l unit/mL under the injection skin 3 (three) times a week for 30 days .ESRD on Dialysis. cinacalcet 2021- No 30mg QD Take 1 Meth sintia (SENSIPAR) 10-28-30 tablet (30 st 30 MG 00:00: 04:59 mg total) Hospit a tablet 00 :00 by mouth l daily with breakfast for 30 days. levothyroxi 2021-2021- No 50ug QD Take 1 Met hodi ne 10-28-30 tablet (50 st (SYNTHROID) 00:00: 04:59 mcg total) Hospita 50 mcg 00 :00 by mouth l tablet daily for 30 days. insulin NPH 15U QD Inject Met hodi (HumuLIN-N) 10-[address] 100 unit/mL 00:00: 04:59 (15 Units Hospita injection 00 :00 total) l under the skin daily before breakfast for 30 days. metoprolol 12.5mg QD Take 0.5 Methodi succinate 10-28-[address] XL 00:00: 04:59 (12.5 mg Hospita (TOPROL-XL) 00 :00 total) by l 25 mg 24 hr mouth tablet daily [place] 30 [place] [address] 8000U Q.[id number] Inject 2 Methodi fadia 10-28 [id number] mL (8,000 st (EPOGEN) 00:00: 04:59 3W Units Hospita 4,000 00 :00 total) l unit/mL under the injection skin 3 (three) times a week for 30 days .ESRD on Dialysis. cinacalcet No 30mg QD Take 1 Meth sintia (SENSIPAR) 10-28 tablet (30 st 30 MG 00:00: 04:59 mg total) Hospit a tablet 00 :00 by mouth l daily with breakfast for 30 days. levothyroxi 50ug QD Take 1 Met hodi ne 10-28 tablet (50 st (SYNTHROID) 00:00: 04:59 mcg total) Hospita 50 mcg 00 :00 by mouth l tablet daily for 30 days. insulin NPH No 15U QD Inject Met hodi (HumuLIN-N) 10-[address] 100 unit/mL 00:00: 04:59 (15 Units Hospita injection 00 :00 total) l under the skin daily before breakfast [place] 30 [place] [id number] 2.5mg QD Take 1 Me [facility] (DELTASONE) 10-28 04-[address] 2.5 mg 00:00: 00:00 (2.5 mg Hospita tablet 00 :00 total) by l mouth daily for 30 days .prevent kidney transplant rejection. predniSONE 0 2021- No [id number] 2.5mg QD Take 1 Me [facility] (DELTASONE) 3-30 -[address] 2.5 mg 00:00: 00:00 (2.5 mg Hospita tablet 00 :00 total) by l mouth daily for 30 days .prevent kidney transplant rejection. predniSONE 2022-0 2021- [place] [id number] 2.5mg QD Take 1 Me [facility]odi (DELTASONE) 3-28 11-[address] 2.5 mg 00:00: 00:00 (2.5 mg Hospita tablet 00 :00 total) by l mouth daily for 30 days .prevent kidney transplant rejection. clonIDINE 2022-0 Yes .1mg Q.[id number] Take 1 Methodi (CATAPRES) 3-29 [id number] tablet s t 0.1 MG 00:00: 3D (0.1 mg Hospita tablet 00 total) by l mouth 3 (three) times a day as needed for high blood pressure (systolic > 160) for up to 30 days. metoclopram 2022-0 Yes 5mg Q.5D Take 1 Meth sintia apollo 3-29 tablet (5 st (REGLAN) 5 00:00: mg total) Ho spita MG tablet 00 by mouth 2 l (two) times a day with meals. clonIDINE 2022-0 Yes .1mg Q.[id number] Take 1 Methodi (CATAPRES) 3-29 [id number] tablet s t 0.1 MG 00:00: 3D (0.1 mg Hospita tablet 00 total) by l mouth 3 (three) times a day as needed for high blood pressure (systolic > 160) for up to 30 days. metoclopram 2022-0 Yes 5mg Q.5D Take 1 Meth sintia apollo 3-29 tablet (5 st (REGLAN) 5 00:00: mg total) Ho spita MG tablet 00 by mouth 2 l (two) times a day with meals. clonIDINE 2022-0 Yes .1mg Q.[id number] Take 1 Methodi (CATAPRES) 3-29 [id number] tablet s t 0.1 MG 00:00: 3D (0.1 mg Hospita tablet 00 total) by l mouth 3 (three) times a day as needed for high blood pressure (systolic > 160) for up to 30 days. metoclopram Yes 5mg Q.5D Take 1 Meth sintia apollo -29 tablet (5 st (REGLAN) 5 00:00: mg total) Ho spita MG tablet 00 by mouth 2 l (two) times a day with meals. polyethylen 2021- No 17g Q.5D Take 17 g Methodi e glycol 10-[address] (MIRALAX) 00:00: 04:59 (two) Hospit a 17 gram 00 :00 times a l packet day for 30 days. nitroglycer 2021- No .4mg Place 1 Me thodi in 10-[address] (NITROSTAT) 00:00: 04:59 (0.4 mg Ho spita 0.4 MG SL 00 :00 total) l tablet under the tongue every 5 (five) minutes as needed for chest pain for up to 30 days. midodrine 2021- No 5mg Q8H Take 1 Metho di (PROAMATINE 10-27 tablet (5 st ) 5 MG 00:00: 04:59 mg total) Hospi ta tablet 00 :00 by mouth l every 8 (eight) hours as needed (MAP < 65) for up to 30 days. docusate 2021- No 100mg Q.5D Take 1 Metho di sodium 10-27 capsule st (COLACE) 00:00: 04:59 (100 mg Hospi ta 100 MG 00 :00 total) by l capsule mouth 2 (two) times a day for 30 days. atorvastati 2021- No 20mg QD Take 1 Met [facility] n (LIPITOR) 10-27 tablet (20 s t 20 mg 00:00: 04:59 mg total) Hospit a tablet 00 :00 by mouth l nightly for 30 days. Default OP ins acetaminoph 2021- No 650mg Q6H Take 2 [facility] en 10-[address] (TYLENOL) 00:00: 04:59 (650 mg [facility] 325 MG 00 :00 total) by l tablet mouth every 6 (six) hours as needed for fever for up to 30 days. lactulose 2021- No 20g Q.[id number] Take 30 mL [facility] 20 gram/30 10-27 [id number] (20 g s t mL solution 00:00: 04:59 3D total) by Hospita 00 :00 mouth 3 l (three) times a day for 30 days. insulin NPH 2021- No 5U QD Inject Met hodi (HumuLIN-N) 10-27 0.05 mL (5 s t 100 unit/mL 00:00: 04:59 Units [facility] injection 00 :00 total) l under the skin daily before dinner for 30 days. polyethylen 2021- No 17g Q.5D Take 17 g Methodi e glycol 10-[address] (MIRALAX) 00:00: 04:59 (two) Hospit a 17 gram 00 :00 times a l packet day for 30 days. nitroglycer No .4mg Place 1 [facility] in 10-[address] (NITROSTAT) 00:00: 04:59 (0.4 mg Ho spita 0.4 MG SL 00 :00 total) l tablet under the tongue every 5 (five) minutes as needed for chest pain for up to 30 days. midodrine 2021- No 5mg Q8H Take 1 Metho di (PROAMATINE 10-27 tablet (5 st ) 5 MG 00:00: 04:59 mg total) Hospi ta tablet 00 :00 by mouth l every 8 (eight) hours as needed (MAP < 65) for up to 30 days. docusate 2021- No 100mg Q.5D Take 1 [facility] di sodium 10-[address] (COLACE) 00:00: 04:59 (100 mg Hospi ta 100 MG 00 :00 total) by l capsule mouth 2 (two) times a day for 30 days. atorvastati 2021- No 20mg QD Take 1 Met [facility] n (LIPITOR) 10-27 tablet (20 s t 20 mg 00:00: 04:59 mg total) Hospit a tablet 00 :00 by mouth l nightly for 30 days. Default OP ins acetaminoph 2021- No 650mg Q6H Take 2 [facility] en 10-[address] (TYLENOL) 00:00: 04:59 (650 mg [facility] 325 MG 00 :00 total) by l tablet mouth every 6 (six) hours as needed for fever for up to 30 days. lactulose 2021- No 20g Q.[id number] Take 30 mL [facility] 20 gram/30 10-27 [id number] (20 g s t mL solution 00:00: 04:59 3D total) by Hospita 00 :00 mouth 3 l (three) times a day for 30 days. insulin NPH 2021- No 5U QD Inject Met [facility]odi (HumuLIN-N) 10-27 0.05 mL (5 s t 100 unit/mL 00:00: 04:59 Units [facility] injection 00 :00 total) l under the skin daily before dinner for 30 days. polyethylen 2021- No 17g Q.5D Take 17 g Methodi e glycol 10-[address] (MIRALAX) 00:00: 04:59 (two) Hospit a 17 gram 00 :00 times a l packet day for 30 days. nitroglycer 2021- No .4mg Place 1 [facility] in 10-[address] (NITROSTAT) 00:00: 04:59 (0.4 mg Ho spita 0.4 MG SL 00 :00 total) l tablet under the tongue every 5 (five) minutes as needed for chest pain for up to 30 days. midodrine 2021- No 5mg Q8H Take 1 Metho di (PROAMATINE 10-27 tablet (5 st ) 5 MG 00:00: 04:59 mg total) Hospi ta tablet 00 :00 by mouth l every 8 (eight) hours as needed (MAP < 65) for up to 30 days. docusate 2021- No 100mg Q.5D Take 1 [facility]o di sodium 10-[address] (COLACE) 00:00: 04:59 (100 mg Hospi ta 100 MG 00 :00 total) by l capsule mouth 2 (two) times a day for 30 days. atorvastati 2021- No 20mg QD Take 1 Met [facility] n (LIPITOR) 10-27 tablet (20 s t 20 mg 00:00: 04:59 mg total) Hospit a tablet 00 :00 by mouth l nightly for 30 days. Default OP ins acetaminoph 2021- No 650mg Q6H Take 2 [facility] en 10-[address] (TYLENOL) 00:00: 04:59 (650 mg [facility] 325 MG 00 :00 total) by l tablet mouth every 6 (six) hours as needed for fever for up to 30 days. lactulose 2021- No 20g Q.[id number] Take 30 mL [facility] 20 gram/30 10-27 [id number] (20 g s t mL solution 00:00: 04:59 3D total) by Hospita 00 :00 mouth 3 l (three) times a day for 30 days. insulin NPH 2021- No 5U QD Inject Met [facility] (HumuLIN-N) 10-27 0.05 mL (5 s t 100 unit/mL 00:00: 04:59 Units [facility] injection 00 :00 total) l under the skin daily before dinner for 30 days. insulin 2021- No 0U Q.[id number] Inject M ethodi lispro 10-27 [id number] 0-[address] (ADMELOG) 00:00: 00:00 3D under the Ho spita 100 unit/mL 00 :00 skin 3 l injection (three) times a day with meals for 30 days. heparin 2021- No 5000U Q.5D Inject 1 [facility] sodium,porc 10-27 mL (5,000 st ine 00:00: 00:00 Units Hospita (HEParin, 00 :00 total) l porcine,) under the 5,000 skin every unit/mL 12 injection (twelve) hours for 30 days. insulin 2021- No 0U Q.[id number] Inject M ethodi lispro 10-27 [id number] 0-[address] (ADMELOG) 00:00: 00:00 3D under the Ho spita 100 unit/mL 00 :00 skin 3 l injection (three) times a day with meals for 30 days. heparin 2021-0 2021- No 5000U Q.5D Inject 1 [facility] sodium,porc 10-27 04-26 mL (5,000 st ine 00:00: 00:00 Units Hospita (HEParin, 00 :00 total) l porcine,) under the 5,000 skin every unit/mL 12 injection (twelve) hours for 30 days. insulin 2021-2021- No 0U Q.[id number] Inject M ethodi lispro 10-27- [id number] 0-[address] (ADMELOG) 00:00: 00:00 3D under the Ho spita 100 unit/mL 00 :00 skin 3 l injection (three) times a day with meals for 30 days. heparin 2021-0 2021- No 5000U Q.5D Inject 1 [facility] sodium,porc 10-27-26 mL (5,000 st ine 00:00: 00:00 Units Hospita (HEParin, 00 :00 total) l porcine,) under the 5,000 skin every unit/mL 12 injection (twelve) hours for 30 days. ondansetron 2021- No 4mg Q8H Take 1 Met hodi ODT 10-27-02 tablet (4 st (ZOFRAN-ODT 00:00: 04:59 mg total) Hospita ) 4 MG 00 :00 by mouth l disintegrat every 8 ing tablet (eight) hours as needed for nausea or vomiting for up to 3 days. [place]DROcod[place] 2021- [place] [id number] 1{tbl} Q8H Take 1 Methodi -acetaminop 10-27-[address] hen (NORCO) 00:00: 04:59 mouth [facility] 10-325 mg 00 :00 every 8 l per tablet (eight) hours as needed for severe pain for up to 3 days .acute pain. Max Daily Amount: 3 tablets ondansetron 2021- No 4mg Q8H Take 1 Met [facility]odi ODT - 04-02 tablet (4 st (ZOFRAN-ODT 00:00: 04:59 mg total) Hospita ) 4 MG 00 :00 by mouth l disintegrat every 8 ing tablet (eight) hours as needed for nausea or vomiting for up to 3 days. [place]DROcodone 2021- No [id number] 1{tbl} Q8H Take 1 [facility] -acetaminop 3-29 -[address] hen (Dabble DBMA) 00:00: 04:59 mouth [facility] 10-325 mg 00 :00 every 8 l per tablet (eight) hours as needed for severe pain for up to 3 days .acute pain. Max Daily Amount: 3 tablets ondansetron No 4mg Q8H Take 1 Met [facility] ODT -27 11-02 tablet (4 st (ZOFRAN-ODT 00:00: 04:59 mg total) Hospita ) 4 MG 00 :00 by mouth l disintegrat every 8 ing tablet (eight) hours as needed for nausea or vomiting for up to 3 days. HYDROcodone 2021- No [id number] 1{tbl} Q8H Take 1 [facility] -acetaminop -27 11- tablet by st hen (Dabble DBMA) 00:00: 04:59 mouth [facility] 10-325 mg 00 :00 every 8 l per tablet (eight) hours as needed for severe pain for up to 3 days .acute pain. 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 insulin pen Dosis maria guadalupe por venkatesh es 67 unidades. insulin No inyecte 8 Meth [facility] ASPART -10-[address] (NovoLOG 00:00: 00:00 antes [facility]ospita Flexpen 00 :00 comida 12 l U-100 unidades Insulin) en el 100 unit/mL almuerso y (3 mL) lydia. insulin pen Dosis maria guadalupe por venkatesh es 67 unidades. 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 insulin pen Dosis maria guadalupe por venkatesh es 67 unidades. aspirin Yes 81mg QD Take 81 mg [facility] (ECOTRIN) 08-[address] 81 MG 13:02: daily. Hospita enteric 45 l coated tablet lactulose Yes 20g Q.[id number] Take 30 mL [facility] 20 gram/30 08-29 [id number] ([address] mL solution 00:00: 3D total) by H ospita 00 mouth 3 l (three) times a day as needed (constipat ion). lactulose 2021- No 20g Q.[id number] Take 30 mL [facility] 20 gram/30 08-29 [id number] (20 g s t mL solution 00:00: 00:00 3D total) by Hospita 00 :00 mouth 3 l (three) times a day as needed (constipat ion). lactulose 0 2021- No 20g Q.33282528 Take 30 mL [facility] 20 gram/30 08-29 [id number] (20 g s t mL solution 00:00: 00:00 3D total) by Hospita 00 :00 mouth 3 l (three) times a day as needed (constipat ion). lactulose 0 2021- No 20g Q.63912211 Take 30 mL [facility] 20 gram/30 08-29 [id number] (20 g s t mL solution 00:00: 00:00 3D total) by Hospita 00 :00 mouth 3 l (three) times a day as needed (constipat ion). hydrocortis 2021-0 2021- No Q.5D Insert Met [facility] one 08-[address] (ANUSOL-HC) 00:00: 05:59 rectum 2 H ospita 2.5 % 00 :00 (two) l rectal times a cream day for 30 days. hydrocortis 2021-0 2021- No Q.5D Insert Met [facility] one 08-[address] (ANUSOL-HC) 00:00: 05:59 rectum 2 H ospita 2.5 % 00 :00 (two) l rectal times a cream day for 30 days. hydrocortis 2- No Q.5D Insert Met [facility] 08-29 into the [facility]) 00:00: 05:59 rectum 2 H ospita 2.5 % 00 :00 (two) l rectal times a cream day for 30 days. hydrocortis 2021- No Q.5D Insert Met [facility] 08-29 into the [facility]) 00:00: 05:59 rectum 2 H ospita 2.5 % 00 :00 (two) l rectal times a cream day for 30 days. blood sugar 2021-0 Yes [id number] DX E11.65 Methodi diagnostic 1-[address] strips 00:00: testing Hospita (glucose 00 QID.One l blood) Touch strip test Verio Test strips Strip blood sugar 2-0 Yes [id number] DX E11.65 Methodi diagnostic 1- Patient is st strips 00:00: testing Hospita (glucose 00 QID.One l blood) Touch strip test Verio Test strips Strip blood sugar 2-0 Yes [id number] DX E11.65 Methodi diagnostic 1-[address] strips 00:00: testing Hospita (glucose 00 QID.One l blood) Touch strip test Verio Test strips Strip blood sugar 2022-0 Yes [id number] DX E11.65 Methodi diagnostic 1-[address] strips 00:00: testing Hospita (glucose 00 QID.One l blood) Touch strip test Verio Test strips Strip Amoxicillin Amoxicillin 2020-08- No 1{table -Pot -Pot 09-23 t} Clavulanate Clavulanate 00:00: 00:00 500-125 MG 500-125 MG 00 :00 Amoxicillin Amoxicillin 2020-08- No 1{table Amoxicilli -Pot -Pot 09-23 t} n-Pot Clavulanate Clavulanate 00:00: 00:00 Clavulanat 500-125 MG 500-125 MG 00 :00 e 500-125 MG Amoxicillin Amoxicillin 2020-08- No 1{table Amoxicilli -Pot -Pot 09-23 t} n-Pot Clavulanate Clavulanate 00:00: 00:00 Clavulanat 500-125 MG 500-125 MG 00 :00 e 500-125 MG Amoxicillin Amoxicillin 2020-08- No 1{table Amoxicilli -Pot -Pot 09-23 t} n-Pot Clavulanate Clavulanate 00:00: 00:00 Clavulanat 500-125 MG 500-125 MG 00 :00 e 500-125 MG Amoxicillin Amoxicillin 2020-08- No 1{table Amoxicilli -Pot -Pot 09-23 t} n-Pot Clavulanate Clavulanate 00:00: 00:00 Clavulanat 500-125 MG 500-125 MG 00 :00 e 500-125 MG Amoxicillin Amoxicillin 2020-08- No 1{table Amoxicilli -Pot -Pot 09-23 t} n-Pot Clavulanate Clavulanate 00:00: 00:00 Clavulanat 500-125 MG 500-125 MG 00 :00 e 500-125 MG furosemide 2020-08- No 20mg Q.5D Take 1 Meth [facility] (LASIX) 20 09-09 tablet (20 st mg tablet 00:00: 05:59 mg total) Ho spita 00 :00 by mouth 2 l (two) times a day. furosemide 2020-08- No 20mg Q.5D Take 1 Meth [facility] (LASIX) 20 09-09 tablet (20 st mg tablet 00:00: 00:00 mg total) Ho spita 00 :00 by mouth 2 l (two) times a day. furosemide 2020-08 No 20mg Q.5D Take 1 Meth [facility] (LASIX) 20 09-09 tablet (20 st mg tablet 00:00: 00:00 mg total) Ho spita 00 :00 by mouth 2 l (two) times a day. furosemide 2020-08- No 20mg Q.5D Take 1 Meth s[facility] (LASIX) 20 09-09 tablet (20 st mg tablet 00:00: 00:00 mg total) Ho spita 00 :00 by mouth 2 l (two) times a day. gabapentin 2020- Yes Dysart 1 Metho di (NEURONTIN) 9-[address] 100 mg 00:00: por la Hospita capsule 00 boca jacinda l veces al venkatesh (Take 1 capsule by mouth three times a day) gabapentin 2021- No Dysart 1 Meth sintia (NEURONTIN) 04-[address] 100 mg 00:00: 00:00 por la Hospita capsule 00 :00 boca jacinda l veces al venkatesh (Take 1 capsule by mouth three times a day) gabapentin 2021- No Dysart 1 Meth s[facility] (NEURONTIN) 04-[address] 100 mg 00:00: 00:00 por la Hospita capsule 00 :00 boca jacinda l veces al venkatesh (Take 1 capsule by mouth three times a day) gabapentin 2021- No Dysart 1 Meth s[facility]ia (NEURONTIN) 04-[address] 100 mg 00:00: 00:00 por la Hospita capsule 00 :00 boca jacinda l veces al venkatesh (Take 1 capsule by mouth three times a day) tamsulosin 2020- No .4mg QD Take 0.4 Me thodi (FLOMAX) 02-18 07-[address] 0.4 mg 11:16: 00:00 mouth Hospita capsule 41 :00 daily. l doxycycline 2020- No 100mg Q.5D 100 mg 2 Methodi (VIBRAMYCIN -14 07-14 (two) st ) 100 MG 13:12: 00:00 times a Hospi ta capsule 01 :00 day. l amLODIPine Yes 10mg QD Take 1 Metho di (NORVASC) 7-14 tablet (10 st 10 mg 00:00: mg total) Hospita tablet 00 by mouth l daily. omeprazole Yes 40mg QD Take 1 Metho di (PriLOSEC) 7-[address] 40 MG 00:00: (40 mg Hospita capsule 00 total) by l mouth daily. amLODIPine 0 Yes 10mg QD Take 1 Metho di (NORVASC) 7-14 tablet (10 st 10 mg 00:00: mg total) Hospita tablet 00 by mouth l daily. omeprazole 0 Yes 40mg QD Take 1 Metho di (PriLOSEC) 7-[address] 40 MG 00:00: (40 mg Hospita capsule 00 total) by l mouth daily. amLODIPine Yes 10mg QD Take 1 Metho di (NORVASC) -14 tablet (10 st 10 mg 00:00: mg total) Hospita tablet 00 by mouth l daily. omeprazole Yes 40mg QD Take 1 Metho di (PriLOSEC) -[address] 40 MG 00:00: (40 mg Hospita capsule 00 total) by l mouth daily. amLODIPine 2021- No 10mg QD Take 1 Meth [facility] (NORVASC) 02-1115 tablet (10 st 10 mg 00:00: 04:59 mg total) Hospit a tablet 00 :00 by mouth l daily. calcitrioL 2021- [place] [id number] 1ug QD Take 2 Met hodi (ROCALTROL) 02-[address] 0.5 MCG 00:00: 04:59 (1 mcg Hospita capsule 00 :00 total) by l mouth daily .low amount of calcium in the blood. for auth issues calcium 2021- No 500mg Q.25D Chew 1 Metho di carbonate 02-[address] (TUMS) 200 00:00: 04:59 (500 mg [facility] mg calcium 00 :00 total) 4 l (500 mg) (four) chewable times a tablet day. magnesium 2021- No 64mg QD Take 1 Metho di chloride 64 02-11 tablet (64 s t mg 00:00: 04:59 mg total) Hospita tablet,fermin 00 :00 by mouth l yed release daily. (DR/EC) DR tablet omeprazole 2021- No 40mg QD Take 1 Meth s[facility] (PriLOSEC) 02-[address] 40 MG 00:00: 04:59 (40 mg Hospita capsule 00 :00 total) by l mouth daily. predni[place]E 2021- [place] [id number] 5mg QD Take 1 Met hodi (DELTASONE) 02-11 tablet (5 st 5 mg tablet 00:00: 04:59 mg total) Hospita 00 :00 by mouth l daily .prevent kidney transplant rejection. clonIDINE 2021- No .1mg Q.[id number] Take 1 [facility]i (CATAPRES) 02-[id number] 0.1 MG 00:00: 04:59 3D (0.1 mg Hospita tablet 00 :00 total) by l mouth 3 (three) times a day. magnesium 2020-2021- No 64mg QD Take 1 Metho di chloride 64 02-11 tablet (64 s t mg 00:00: 00:00 mg total) Hospita tablet,fermin 00 :00 by mouth l yed release daily. (DR/EC) tablet predniSONE 2021- [place] [id number] 5mg QD Take 1 Met hodi (DELTASONE) 02-11 tablet (5 st 5 mg tablet 00:00: 00:00 mg total) Hospita 00 :00 by mouth l daily .prevent kidney transplant rejection. clonIDINE 2021- No .1mg Q.[id number] Take 1 [facility] (CATAPRES) 02-[id number] 0.1 MG 00:00: 00:00 3D (0.1 mg Hospita tablet 00 :00 total) by l mouth 3 (three) times a day. magnesium 2021- No 64mg QD Take 1 Metho di chloride 64 02-11 tablet (64 s t mg 00:00: 00:00 mg total) Hospita tablet,fermin 00 :00 by mouth l yed release daily. (DR/EC) tablet predniSONE 2021- [place] [id number] 5mg QD Take 1 Met hodi (DELTASONE) 02-11 tablet (5 st 5 mg tablet 00:00: 00:00 mg total) Hospita 00 :00 by mouth l daily .prevent kidney transplant rejection. clonIDINE 2021- No .1mg Q.[id number] Take 1 [facility]i (CATAPRES) 02-[id number] 0.1 MG 00:00: 00:00 3D (0.1 mg Hospita tablet 00 :00 total) by l mouth 3 (three) times a day. magnesium 2021- No 64mg QD Take 1 Metho di chloride 64 02-11 tablet (64 s t mg 00:00: 00:00 mg total) Hospita tablet,fermin 00 :00 by mouth l yed release daily. (DR/[place] [id number] 5mg QD Take 1 Met [facility] (DELTASONE) 02-11 tablet (5 st 5 mg tablet 00:00: 00:00 mg total) Hospita 00 :00 by mouth l daily .prevent kidney transplant rejection. clonIDINE 2021- No .1mg Q.[id number] Take 1 [facility] (CATAPRES) 02-[id number] 0.1 MG 00:00: 00:00 3D (0.1 mg Hospita tablet 00 :00 total) by l mouth 3 (three) [place] [id number] 1ug QD Take 2 Met hodi (ROCALTROL) 02-[address] 0.5 MCG 00:00: 00:00 (1 mcg Hospita capsule 00 :00 total) by l mouth daily .low amount of calcium in the blood. for auth issues calcium No 500mg Q.25D Chew 1 Metho di carbonate 02-[address] (TUMS) 200 00:00: 00:00 (500 mg [facility] mg calcium 00 :00 total) 4 l (500 mg) (four) chewable times a tablet day. calcitrioL 2021- No [id number] 1ug QD Take 2 Met [facility] (ROCALTROL) 02-[address] 0.5 MCG 00:00: 00:00 (1 mcg Hospita capsule 00 :00 total) by l mouth daily .low amount of calcium in the blood. for auth issues calcium No 500mg Q.25D Chew 1 Metho di carbonate 02-[address] (TUMS) 200 00:00: 00:00 (500 mg [facility] mg calcium 00 :00 total) 4 l (500 mg) (four) chewable times a tablet day. calcitrioL 2021- [place] [id number] 1ug QD Take 2 Met [facility]odi (ROCALTROL) 02-11-[address] 0.5 MCG 00:00: 00:00 (1 mcg Hospita capsule 00 :00 total) by l mouth daily .low amount of calcium in the blood. for auth issues calcium 2021- No 500mg Q.25D Chew 1 Metho di carbonate 02-[address] (TUMS) 200 00:00: 00:00 (500 mg [facility] mg calcium 00 :00 total) 4 l (500 mg) (four) chewable times a tablet day. acetamin[place] 2020- [place] [id number] 1{tbl} Q6H Take 1 Methodi en-codeine 01-[address] (TYLENOL 00:00: 04:59 mouth [...] within 12 hours or as directed by tacrolimus 2020- Yes .5mg Q.5D Take 1 Metho di (PROGRAF) 6-[address] 0.5 MG 00:00: (0.5 mg Hospita capsule 00 total) by l mouth 2 (two) times a day. DOSE DECREASE - Maki SORIANO for auth tacrolimus 2020-0 Yes .5mg Q.5D Take 1 Metho di (PROGRAF) 6-[address] 0.5 MG 00:00: (0.5 mg Hospita capsule 00 total) by l mouth 2 (two) times a day. DOSE DECREASE - Maki SORIANO for auth tacrolimus 2020-0 Yes .5mg Q.5D Take 1 Metho di (PROGRAF) 6-[address] 0.5 MG 00:00: (0.5 mg Hospita capsule 00 total) by l mouth 2 (two) times a day. DOSE DECREASE - Maki SORIANO for auth levothyroxi 2020-2021- No 50ug QD Take 2 Met hodi ne 01-[address] (Synthroid) 00:00: 04:59 (50 mcg Ho spita 25 mcg 00 :00 total) by l tablet mouth daily. Temp refill until pt can see Endo tacrolimus 2020-2021- No .5mg Q.5D Take 1 Meth s[facility] (PROGRAF) 01-[address] 0.5 MG 00:00: 04:59 (0.5 mg Hospita capsule 00 :00 total) by l mouth 2 (two) times a day. DOSE DECREASE - Maki SORIANO for auth levothyroxi 2020-2021- No 50ug QD Take 2 Met hodi ne 01-[address] (Synthroid) 00:00: 00:00 (50 mcg Ho spita 25 mcg 00 :00 total) by l tablet mouth daily. Temp refill until pt can see Endo levothyroxi 2020-2021- No 50ug QD Take 2 Met hodi ne 01-[address] (Synthroid) 00:00: 00:00 (50 mcg Ho spita 25 mcg 00 :00 total) by l tablet mouth daily. Temp refill until pt can see Endo levothyroxi 2020-2021- No 50ug QD Take 2 Met hodi ne 01-[address] (Synthroid) 00:00: 00:00 (50 mcg Ho spita 25 mcg 00 :00 total) by l tablet mouth daily. Temp refill until pt can see Endo denosumab 2020-2020- No [id number] 60mg [facility] (PROLIA) 01-19 st syringe 60 17:30: 17:33 Hospit a mg 00 :00 l fluconazole 2020-2021- No 400mg QD Take 2 [facility] (DIFLUCAN) -- tablets st 200 MG 00:00: 05:59 (400 mg Hospita tablet 00 :00 total) by l mouth daily for 300 days. fluconazole 2020-2021- No 400mg QD Take 2 [facility] (DIFLUCAN) --[address] 200 MG 00:00: 05:59 (400 mg Hospita tablet 00 :00 total) by l mouth daily for 300 days. fluconazole 2021- No 400mg QD Take 2 [facility] (DIFLUCAN) 11-28-[address] 200 MG 00:00: 05:59 (400 mg Hospita tablet 00 :00 total) by l mouth daily for 300 days. fluconazole 2021- No 400mg QD Take 2 [facility] (DIFLUCAN) 11-28 02-[address] 200 MG 00:00: 05:59 (400 mg Hospita tablet 00 :00 total) by l mouth daily for 300 days. furosemide 2020- No 20mg Q.5D Take 1 Meth [facility] (LASIX) 20 11-26- tablet (20 st mg tablet 00:00: 00:00 mg total) Ho spita 00 :00 by mouth 2 l (two) times a day. furosemide 2020- No 20mg Q.5D Take 1 Meth s[facility] (LASIX) 20 11-26 tablet (20 st mg tablet 00:00: 00:00 mg total) Ho spita 00 :00 by mouth 2 l (two) times a day. furosemide 2020- No 20mg Q.5D Take 1 Meth s[facility] (LASIX) 20 11-26 tablet (20 st mg tablet 00:00: 00:00 mg total) Ho spita 00 :00 by mouth 2 l (two) times a day. furosemide 2020- No 20mg Q.5D Take 1 Meth s[facility] (LASIX) 20 11-26 tablet (20 st mg tablet 00:00: 00:00 mg total) Ho spita 00 :00 by mouth 2 l (two) times a day. spironolact 2020- No 25mg QD Take 1 Met [facility] one 11-26- tablet (25 st (ALDACTONE) 00:00: 00:00 mg total) Hospita 25 MG 00 :00 by mouth l tablet daily. levothyroxi 2020- No 25ug QD Take 1 Met hodi ne 11-12-22 tablet (25 st (Synthroid) 00:00: 00:00 mcg total) Hospita 25 mcg 00 :00 by mouth l tablet daily. nitrofurant 2020- No Metho di oin, 401-27 st macrocrysta 00:00: 00:00 Hospi ta l-monohydra 00 :00 l te, (MACROBID) 100 MG capsule tacrolimus 2020- No 1mg Q.5D Take 1 Meth sintia (PROGRAF) 1 11-03- capsule (1 s t MG capsule 00:00: 00:00 mg total) H ospita 00 :00 by mouth 2 l (two) times a day. Z94.0; Txp 12/30/09; DC 01/06/10; MCR AB at time of txp; [facility] tacrolimus 2020- No 1mg Q.5D Take 1 Meth sintia (PROGRAF) 1 11-03- capsule (1 s t MG capsule 00:00: 00:00 mg total) H ospita 00 :00 by mouth 2 l (two) times a day. Z94.0; Txp 12/30/09; DC 01/06/10; MCR AB at time of txp; [facility]; Maki SORIANO guaiFENesin 2020- No 600mg Q12H Take 600 Methodi (MUCINEX) -29 10-[address] 600 mg 13:24: 00:00 mouth Hospita tablet 22 :00 every 12 l extended (twelve) release hours. 12hr simvastatin 2021- No 20mg QD Take 1 Met hodi (ZOCOR) 20 10-29- tablet (20 st mg tablet 00:00: 04:59 mg total) Ho spita 00 :00 by mouth l nightly. simvastatin 2021- No 20mg QD Take 1 Met [facility] (ZOCOR) 20 -29 10-29 tablet (20 st mg tablet 00:00: 00:00 mg total) Ho spita 00 :00 by mouth l nightly. simvastatin 2021- No 20mg QD Take 1 Met [facility]odi (ZOCOR) 20 -29 10- tablet (20 st mg tablet 00:00: 00:00 mg total) Ho spita 00 :00 by mouth l nightly. simvastatin No 20mg QD Take 1 Met hodi (ZOCOR) 20 10-29 tablet (20 st mg tablet 00:00: 00:00 mg total) Ho spita 00 :00 by mouth l nightly. doxycycline 2020- [place] [id number] 100mg Q.5D Take 1 M ethodi (MONODOX) 10-27-[address] 100 MG 00:00: 04:59 (100 mg Hospita capsule 00 :00 total) by l mouth 2 (two) times a day for 7 days .bacterial urinary tract infection. tacrolimus 2020- No 1mg Q.5D Take 1 Meth sintia (PROGRAF) 1 10-27- capsule (1 s t MG capsule 00:00: 00:00 mg total) H ospita 00 :00 by mouth 2 l (two) times a day. Z94.0; Txp 12/30/09; DC 01/06/10; MCR AB at time of txp; [facility]; Maki SORIANO Victoza INJECT 1.8 Met hodi 3-Tavo 0.6 10-23-[address] mg/0.1 mL 00:00: 00:00 THE SKIN Hos edwardo (18 mg/3 00 :00 ONCE DAILY l mL) pen WITH injector BREAKFAST doxycycline 2020- No 150mg QD Take 1 Me thodi hyclate 10-[address] (ACTICLATE) 00:00: 04:59 (150 mg Ho spita 150 mg 00 :00 total) by l tablet mouth every morning for 7 days. Z94.0; N39.0; Para la infeccion del tracto urinario megestroL 2020- No 40mg QD Take 1 Metho di (MEGACE) 40 10-03- tablet (40 s t MG tablet 00:00: 00:00 mg total) [facility] spita 00 :00 by mouth l daily. meclizine 2020- No 25mg Q.[id number] Take 1 [facility] (ANTIVERT) 09-30 [id number] tablet (25 st 25 mg 00:00: 04:59 3D mg total) Hospit a tablet 00 :00 by mouth 3 l (three) times a day as needed for dizziness for up to 30 days. Maki SORIANO for auth tacrolimus 2020- No 1mg Q.5D Take 1 [...] dinner for 30 days. sodium 2020- No [id number] 650mg Q.[id number] Take 1 [facility] bicarbonate 09-[id number] 650 mg 00:00: 04:59 3D (650 mg Hospita tablet 00 :00 total) by l mouth 3 (three) times a day for 30 days. polyethylen 2020- No [id number] 17g Q.5D Take 17 g [facility] e glycol 09-[address] (MIRALAX) 00:00: 04:59 (two) Hospit a 17 gram 00 :00 times a l packet day for 30 days. bethanechol 2020- No [id number] 10mg Q.[id number] Take 1 [facility] (URECHOLINE 09-24 [id number] tablet (10 st ) 10 MG 00:00: 04:59 3D mg total) [facility] tablet 00 :00 by mouth 3 l (three) times a day for 30 days. acetaminoph 2020- No [id number] 500mg Q6H Take 1 [facility] en 09-[address] (TYLENOL) 00:00: 04:59 (500 mg [facility] 500 MG 00 :00 total) by l tablet mouth every 6 (six) hours as needed for mild pain or fever for up to 30 days. fluconazole 2020- No 400mg QD Take 2 [facility] (DIFLUCAN) 09-23 04-[address] 200 MG 00:00: 00:00 (400 mg Hospita tablet 00 :00 total) by l mouth daily. insulin 2020- No 4U QD Inject 4 Meth[facility] di lispro 09-22-[address] (HumaLOG) 14:00: 00:00 under the [facility]ita 100 unit/mL 33 :00 skin l injection Medrol Dose Pack Scheduling ONLY. Take with dinner insulin Yes inyecte 3 Metho di ASPART 09-[address] (NovoLOG 00:00: antes Hospita Flexpen 00 comida l U-100 Insulin) 100 unit/mL (3 mL) insulin pen insulin NPH Yes Inject 10 M [facility]i isoph U-100 2-[address] human 00:00: breakfast Hospita (HumuLIN N 00 and 4 l NPH Insulin units at KwikPen) bedtime 100 unit/mL (3 mL) insulin NPH 2021- No Inject 10 [facility] isoph U-100 09-22-[address] human 00:00: 00:00 breakfast Hospit a (HumuLIN N 00 :00 and 4 l NPH Insulin units at KwikPen) bedtime 100 unit/mL (3 mL) insulin NPH 2021- No Inject 10 [facility] isoph U-100 09-22-[address] human 00:00: 00:00 breakfast Hospit a (HumuLIN N 00 :00 and 4 l NPH Insulin units at KwikPen) bedtime 100 unit/mL (3 mL) insulin NPH 2021- No Inject 10 [facility] isoph U-100 09-22-[address] human 00:00: 00:00 breakfast Hospit a (HumuLIN N 00 :00 and 4 l NPH Insulin units at KwikPen) bedtime 100 unit/mL (3 mL) insulin 2021- No inyecte 3 Meth sintia ASPART 09-22-[address] (NovoLOG 00:00: 00:00 antes Hospita Flexpen 00 :00 comida l U-100 Insulin) 100 unit/mL (3 mL) insulin pen insulin 2021- No inyecte 3 Meth sintia ASPART 2-22 03-[address] (NovoLOG 00:00: 00:00 antes [facility]ospita Flexpen 00 :00 comida l U-100 Insulin) 100 unit/mL (3 mL) insulin pen insulin inyecte 3 Meth sintia ASPART 09-[address] (NovoLOG 00:00: 00:00 antes Hospita Flexpen 00 :00 comida l U-100 Insulin) 100 unit/mL (3 mL) insulin pen insulin Inject 8 Metho di lispro 09-[address] (HumaLOG 00:00: 00:00 breakfast [facility] KwikPen 00 :00 and 12 l Insulin) units 100 unit/mL lunch and injection dinner. pen Patient on sliding scale. Max dose per meal 18 units. insulin NPH 10U QD Inject 10 [facility] isoph U-100 09-[address] human 00:00: 00:00 under the Hospit a (HumuLIN N 00 :00 skin daily l NPH Insulin before KwikPen) breakfast. 100 unit/mL (3 mL) predniSONE 2019-08 No [id number] 5mg QD Take 1 [facility] (DELTASONE) 230 07-14 tablet (5 st 5 mg tablet 00:00: 00:00 mg total) Hospita 00 :00 by mouth l daily .prevent kidney transplant rejection. tacrolimus 2019-08 22495 1.5mg Q.5D Take 3 [facility] (PROGRAF) 09-[address] 0.5 MG 00:00: 00:00 (1.5 mg Hospita capsule 00 :00 total) by l mouth 2 (two) times a day .prevent kidney transplant rejection. DOSE CHANGE! blood sugar 2019-08- DX E11.65 [facility] diagnostic 08-[address] strips 00:00: 00:00 testing Hospita (glucose 00 :00 QID. l blood) Please strip test match to strips machine. blood sugar 2019-08 No DX E11.65 [facility] diagnostic 08-[address] strips 00:00: 00:00 testing Hospita (glucose 00 :00 QID. l blood) Please strip test match to strips machine. blood sugar 2019-08- No DX E11.65 [facility] diagnostic 08-[address] strips 00:00: 00:00 testing Hospita (glucose 00 :00 QID. l blood) Please strip test match to strips machine. blood sugar 2019-08- No DX E11.65 [facility] diagnostic 08-[address] strips 00:00: 00:00 testing Hospita (glucose 00 :00 QID. l blood) Please strip test match to strips machine. insulin NPH 2019-08- No 20U QD Inject 20 [facility] isoph U-100 08-[address] human 00:00: 00:00 under the Hospit a (HumuLIN N 00 :00 skin daily l NPH Insulin before KwikPen) breakfast. 100 unit/mL (3 mL) Insupen 2019-08 Yes Use 5 [facility] i gauge x 1-[address] 16" 00:00: venkatesh (Use 5 Hospit a needle 00 times l daily) Insupen 31 2019-08 Yes Use 5 [facility] i gauge x 1-[address] 16" 00:00: venkatesh (Use 5 Hospit a needle 00 times l daily) Insupen 31 2019-08 Yes Use 5 [facility] i gauge x 1-[address] 516" 00:00: venkatesh (Use 5 Hospit a needle 00 times l daily) Insupen 31 2019-08 Yes Use 5 [facility] i gauge x 1-[address] 516" 00:00: venkatesh (Use 5 Hospit a needle 00 times l daily) blood sugar 2019-08 Yes [id number] DX: E11.65 [facility] diagnostic 0-[address] strips 00:00: times Hospita strip test 00 daily l strips lancets 33 2019-08 Yes DX E11.65 [facility] gauge misc 0-[address] 00:00: testing Hospita 00 QID. l Please match to machine. blood sugar 2019-08 Yes [id number] DX: E11.65 [facility] diagnostic 0-[address] strips 00:00: times Hospita strip test 00 daily l strips lancets 33 2019-08 Yes DX E11.65 [facility] gauge misc 0-[address] 00:00: testing Hospita 00 QID. l Please match to machine. blood sugar 2019-08 Yes [id number] DX: E11.65 [facility] diagnostic 0-[address] strips 00:00: times Hospita strip test 00 daily l strips lancets 33 2019- Yes DX E11.65 [facility] gauge misc 0-[address] 00:00: testing Hospita 00 QID. l Please match to machine. blood sugar 2019-08 Yes [id number] DX: E11.65 [facility] diagnostic 0-[address] strips 00:00: times Hospita strip test 00 daily l strips lancets 33 2019-08 Yes DX E11.65 [facility] gauge misc 0-[address] 00:00: testing Hospita 00 QID. l Please match to machine. Benzonatate Benzonatate 2019- No Na Long 1 capsule Common 03-14 as needed Spirit 00:00: 00:00 - [facility] 00 :00 [facility] amLODIPine 2020- No 10mg QD Take 1 Meth sintia (NORVASC) 02-18 tablet (10 st 10 mg 00:00: 00:00 mg total) Hospit a tablet 00 :00 by mouth l daily. calcitrioL 2020- [place] 04033 1ug QD Take 2 [facility] (ROCALTROL) 02-[address] 0.5 MCG 00:00: 00:00 (1 mcg Hospita capsule 00 :00 total) by l mouth daily .low amount of calcium in the blood. for auth issues calcium 2020- No 500mg Q.25D Chew 1 Metho di carbonate 02-[address] (TUMS) 200 00:00: 00:00 (500 mg [facility] mg calcium 00 :00 total) 4 l (500 mg) (four) chewable times a tablet day. magnesium 2020- No 64mg QD Take 1 Metho di chloride 64 02-18 tablet (64 s t mg 00:00: 00:00 mg total) Hospita tablet,fermin 00 :00 by mouth l yed release daily. (DR/EC) DR tablet carvediloL 2020- No 12.5mg Q.5D Take 1 [facility] (COREG) 02-[address] 12.5 MG 00:00: 00:00 (12.5 mg Hospi ta tablet 00 :00 total) by l mouth 2 (two) times a day with meals. clonIDINE 2020- No .1mg Q.52954719 Take 1 [facility] (Catapres) 02-[id number] 0.1 MG 00:00: 00:00 3D (0.1 mg Hospita tablet 00 :00 total) by l mouth 3 (three) times a day. omeprazole 2020- No 40mg QD Take 1 Meth s[facility]ia (PriLOSEC) 02-[address] 40 MG 00:00: 00:00 (40 mg Hospita capsule 00 :00 total) by l mouth daily. Cetirizine Cetirizine Yes Na Long 1 tablet Common HCl HCl 01-20 Orally [facility] 00:00: Once a day - [facility] insulin NPH 2020- No 20 units M ethodi (HumuLIN-N) 11-[address] 100 unit/mL 00:00: 00:00 Hospi ta injection 00 :00 l insulin 2020- No 3U Q.[id number] Inject 3 [facility] lispro 11-[id number] (HumaLOG) 00:00: 00:00 3D under the Ho spita 100 unit/mL 00 :00 skin 3 l injection (three) times a day before meals. On sliding scale blood-gluco 2020-0 Yes DX E11.65 M ethodi se meter 4-[address] misc 00:00: testing Hospita 00 QID. l Please match machine to insurance. blood-gluco 2020-0 Yes DX E11.65 M ethodi se meter 4-[address] misc 00:00: testing Hospita 00 QID. l Please match machine to insurance. blood-gluco 2020-0 Yes DX E11.65 M ethodi se meter 4-[address] misc 00:00: testing Hospita 00 QID. l Please match machine to insurance. blood-gluco 2020-0 Yes DX E11.65 M ethodi se meter 4-[address] misc 00:00: testing Hospita 00 QID. l Please match machine to insurance. simvastatin 2020- No 20mg QD Take 1 [facility] (ZOCOR) 20 -19 10-31 tablet (20 st MG tablet 00:00: 00:00 mg total) Ho spita 00 :00 by mouth l nightly. mycophenola 2020- No 500mg Q.5D Take 1 [facility] te -21 09-[address] (CELLCEPT) 00:00: 00:00 (500 mg [facility] 500 mg 00 :00 total) by l tablet mouth 2 (two) times a day. 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 albuterol 2020- No 180ug Q4H Inhale 180 [facility] sulfate 90 2-12 -[address] mcg/actuati 00:00: 00:00 4 (four) H ospita on aerosol 00 :00 hours. l powdr [phone] breath 91 for activated auth - Maki SORIANO Albuterol Albuterol Yes Na Long 2 puffs Common Sulfate HFA Sulfate HFA 9-25 S pirit 00:00: - [facility] 00 [facility] Albuterol Albuterol No 2{puffs Sulfate HFA Sulfate HFA 9-25 } 108 (90 108 (90 00:00: Base) Base) 00 MCG/ACT MCG/ACT Albuterol Albuterol No 2{puffs Albuterol Sulfate HFA Sulfate HFA 9-25 } Sulfate 108 (90 108 (90 00:00: HFA 108 Base) Base) 00 (90 Base) MCG/ACT MCG/ACT MCG/ACT Albuterol Albuterol No 2{puffs Albuterol Sulfate HFA Sulfate HFA 9-25 } Sulfate 108 (90 108 (90 00:00: HFA 108 Base) Base) 00 (90 Base) MCG/ACT MCG/ACT MCG/ACT Albuterol Albuterol 2019-0 No 2{puffs Albuterol Sulfate HFA Sulfate HFA 9-25 } Sulfate 108 (90 108 (90 00:00: HFA 108 Base) Base) 00 (90 Base) MCG/ACT MCG/ACT MCG/ACT Albuterol Albuterol 2019-0 No 2{puffs Albuterol Sulfate HFA Sulfate HFA 9-25 } Sulfate 108 (90 108 (90 00:00: HFA 108 Base) Base) 00 (90 Base) MCG/ACT MCG/ACT MCG/ACT Albuterol Albuterol 2019-0 No 2{puffs Albuterol Sulfate HFA Sulfate HFA 9-25 } Sulfate 108 (90 108 (90 00:00: HFA 108 Base) Base) 00 (90 Base) MCG/ACT MCG/ACT MCG/ACT Albuterol Albuterol 2019-0 No 2{puffs Albuterol Sulfate HFA Sulfate HFA 9-25 } Sulfate 108 (90 108 (90 00:00: HFA 108 Base) Base) 00 (90 Base) MCG/ACT MCG/ACT MCG/ACT Albuterol Albuterol 2019-0 No 2{puffs Albuterol Sulfate HFA Sulfate HFA 9-25 } Sulfate 108 (90 108 (90 00:00: HFA 108 Base) Base) 00 (90 Base) MCG/ACT MCG/ACT MCG/ACT Albuterol Albuterol 2019-0 No 2{puffs Albuterol Sulfate HFA Sulfate HFA 9-25 } Sulfate 108 (90 108 (90 00:00: HFA 108 Base) Base) 00 (90 Base) MCG/ACT MCG/ACT MCG/ACT Albuterol Albuterol 2019-0 No 2{puffs Albuterol Sulfate HFA Sulfate HFA 9-25 } Sulfate 108 (90 108 (90 00:00: HFA 108 Base) Base) 00 (90 Base) MCG/ACT MCG/ACT MCG/ACT Albuterol Albuterol 2019-0 No 2{puffs Albuterol Sulfate HFA Sulfate HFA 9-25 } Sulfate 108 (90 108 (90 00:00: HFA 108 Base) Base) 00 (90 Base) MCG/ACT MCG/ACT MCG/ACT Albuterol Albuterol 2019-0 No 2{puffs Albuterol Sulfate HFA Sulfate HFA 04-25 } Sulfate 108 (90 108 (90 00:00: HFA 108 Base) Base) 00 (90 Base) MCG/ACT MCG/ACT MCG/ACT albuterol 2020- No 2 puffs Meth sintia (PROAIR 04-25 06- Inhalation st HFA) 90 00:00: 00:00 every 4-6 [facility] mcg/actuati 00 :00 hrs prn l on inhaler for 10 days gabapentin 2020- No 100mg Q.06447793 Take 1 [facility] (NEURONTIN) 01-[id number] 100 mg 00:00: 00:00 3D (100 mg Hospita capsule 00 :00 total) by l mouth 3 (three) times a day. pen needle, 2017-08 Yes 1{piece Q.2D 1 Piece 5 [facility] diabetic 31 2-21 } (five) st gauge x 00:00: times a Hospita 1/4" needle 00 day. l pen needle, 2017-08 Yes 1{piece Q.2D 1 Piece 5 [facility] diabetic 31 2-21 } (five) st gauge x 00:00: times a Hospita 1/4" needle 00 day. l pen needle, 2017-08 Yes 1{piece Q.2D 1 Piece 5 [facility] diabetic 31 2-21 } (five) st gauge x 00:00: times a Hospita 1/4" needle 00 day. l pen needle, 2017-08 Yes 1{piece Q.2D 1 [...] spita 25 MG 00 NEEDED l tablet promethazin 2021- No EVERY Meth sintia e 3 03-[address] (PHENERGAN) 00:00: 00:00 HOURS H ospita 25 MG 00 :00 NEEDED l tablet promethazin 2021- No EVERY Meth sintia e 10-[address] (PHENERGAN) 00:00: 00:00 HOURS H ospita 25 MG 00 :00 NEEDED l tablet promethazin 2021- No EVERY Meth sintia e 10-[address] (PHENERGAN) 00:00: 00:00 HOURS H ospita 25 MG 00 :00 NEEDED l tablet pregabalin 2020- No TWICE Metho di (LYRICA) 10-[address] 100 MG 00:00: 00:00 Hospita capsule 00 :00 l mycophenola Yes Q.5D Take by [facility] (CELLCEPT) 11:41: (two) Medica l 500 mg 24 times Center tablet daily. predniSONE Yes 5mg QD Take [address] (DELTASONE) 4-28 by mouth Luke s 5 MG tablet 11:41: daily. Medi michael 24 [place] amLODIPine Yes 10mg QD Take [address] (NORVASC) 4-28 by mouth [facility] 10 MG 11:41: daily. Medical tablet 24 [place] losartan Yes 50mg QD Take [address] (COZAAR) 50 4-28 by mouth Luke s MG tablet 11:41: daily. Medica l 24 [place] cloNIDine Yes .1mg Q.[id number] Take 0.[address] HCl 4-28 [id number] mg by [facility] (CATAPRES) 11:41: 3D mouth 3 Medi michael 0.1 MG 24 (three) Center tablet times daily. omeprazole Yes 40mg QD Take [address] (PRILOSEC) 4-28 by mouth [facility] 40 MG 11:41: daily. Medical capsule 24 [place] simvastatin Yes 20mg QD Take [address] (ZOCOR) 20 4-28 by mouth [facility] MG tablet 11:41: nightly. Medi michael 24 [place] calcitriol Yes .25ug QD Take 0.[address] (ROCALTROL) 4-28 mcg by [facility] 0.25 MCG 11:41: mouth Medical capsule 24 daily. [place] alendronate Yes 70mg Take [address] (FOSAMAX) 4-28 by mouth [facility] 70 MG 11:41: every 7 Medical tablet 24 days Take Center in the morning with a full glass of water, on an empty stomach, and do not take anything else by mouth or lie down for the next 30 min. . gabapentin 2017-0 Yes 100mg Q.72109809 Take [address] (NEURONTIN) 4-28 [id number] mg by L ukes 100 MG 11:41: 3D mouth 3 Medical capsule 24 (three) Center times daily. insulin NPH 2017-0 Yes 22U Inject [address] 100 unit/mL 4-28 Units [facility] (3 mL) InPn 11:41: subcutaneo Medical 24 usly every Center morning before breakfast . insulin 2017-0 Yes 8U Inject [address] aspart 4-28 Units [facility] (NOVOLOG) 11:41: subcutaneo Me dical 100 unit/mL 24 usly 2 Center injection (two) times daily as needed Only gives herself insulin fo BS above 100 - 8 units. insulin NPH 2017-0 Yes 4U Q.5D Inject [address] 100 unit/mL 4-28 [facility] (3 mL) InPn 11:41: subcutaneo Medical 24 usly 2 Center (two) times daily Every NOON and every NIGHT . tacrolimus 2017-0 Yes 1mg Q.5D Take [address] (PROGRAF) 1 4-28 by mouth 2 Iram kes MG capsule 11:41: (two) Medica l 24 times Center daily. predniSONE 2017-0 Yes 5mg QD Take [address] (DELTASONE) 4-28 by mouth Luke s 5 MG tablet 11:41: daily. Medi michael 24 Center amLODIPine 2017-0 Yes 10mg QD Take [address] (NORVASC) 4-28 by mouth [facility] 10 MG 11:41: daily. Medical tablet 24 Center losartan 2017-0 Yes 50mg QD Take [address] (COZAAR) 50 4-28 by mouth Luke s MG tablet 11:41: daily. Medica l 24 Center cloNIDine 2017-0 Yes .1mg Q.[id number] Take 0.[address] HCl 4-28 [id number] mg by [facility] (CATAPRES) 11:41: 3D mouth 3 Medi michael 0.1 MG 24 (three) Center tablet times daily. omeprazole 2017-0 Yes 40mg QD Take [address] (PRILOSEC) 4-28 by mouth [facility] 40 MG 11:41: daily. Medical capsule 24 Center simvastatin 2017-0 Yes 20mg QD Take [address] (ZOCOR) 20 4-28 by mouth [facility] MG tablet 11:41: nightly. Medi michael 24 [place] calcitriol 2017-0 Yes .25ug QD Take 0.[address] (ROCALTROL) 4-28 mcg by [facility] 0.25 MCG 11:41: mouth Medical capsule 24 daily. [place] alendronate 2017 Yes 70mg Take [address] (FOSAMAX) 4-28 by mouth [facility] 70 MG 11:41: every 7 Medical tablet 24 days Take Center in the morning with a full glass of water, on an empty stomach, and do not take anything else by mouth or lie down for the next 30 min. . gabapentin 2017-0 Yes 100mg Q.[id number] Take [address] (NEURONTIN) 4-28 [id number] mg by L ukes 100 MG 11:41: 3D mouth 3 Medical capsule 24 (three) Center times daily. insulin NPH 2017 Yes 22U Inject [address] 100 unit/mL 4-28 Units [facility] (3 mL) InPn 11:41: subcutaneo Medical 24 usly every Center morning before breakfast . insulin 2017-0 Yes 8U Inject [address] aspart 4-28 Units [facility] (NOVOLOG) 11:41: subcutaneo Me dical 100 unit/mL 24 usly 2 Center injection (two) times daily as needed Only gives herself insulin fo BS above 100 - 8 units. insulin NPH 2017-0 Yes 4U Q.5D Inject [address] 100 unit/mL 4-28 Units [facility] (3 mL) InPn 11:41: subcutaneo Medical 24 usly 2 Center (two) times daily Every NOON and every NIGHT . tacrolimus 2017-0 Yes 1mg Q.5D Take [address] (PROGRAF) 1 4-28 by mouth 2 Iram kes MG capsule 11:41: (two) Medica l 24 times Center daily. mycophenola 2017-0 Yes Q.5D Take by [facility] te 4-28 mouth 2 [facility] (CELLCEPT) 11:41: (two) Medica l 500 mg 24 times Center tablet daily. predniSONE 2017-0 Yes 5mg QD Take [address] (DELTASONE) 4-28 by mouth Luke s 5 MG tablet 11:41: daily. Medi michael 24 [place] amLODIPine 2017-0 Yes 10mg QD Take [address] (NORVASC) 4-28 by mouth [facility] 10 MG 11:41: daily. Medical tablet 24 [place] losartan 2017-0 Yes 50mg QD Take [address] (COZAAR) 50 -28 by mouth Luke s MG tablet 11:41: daily. Medica l 24 [place] cloNIDine 20170 Yes .1mg Q.01108002 Take 0.[address] HCl - [id number] mg by [facility] (CATAPRES) 11:41: 3D mouth 3 Medi michael 0.1 MG 24 (three) Center tablet times daily. omeprazole 2017 Yes 40mg QD Take [address] (PRILOSEC) 4-28 by mouth [facility] 40 MG 11:41: daily. Medical capsule 24 [place] simvastatin 2017 Yes 20mg QD Take [address] (ZOCOR) 20 - by mouth [facility] MG tablet 11:41: nightly. Medi michael 24 [place] calcitriol 20170 Yes .25ug QD Take 0.[address] (ROCALTROL) 4-28 mcg by [facility] 0.25 MCG 11:41: mouth Medical capsule 24 daily. [place] alendronate Yes 70mg Take [address] (FOSAMAX) -28 by mouth [facility] 70 MG 11:41: every 7 Medical tablet 24 days Take Center in the morning with a full glass of water, on an empty stomach, and do not take anything else by mouth or lie down for the next 30 min. . gabapentin 2017-0 Yes 100mg Q.04701112 Take [address] (NEURONTIN) -28 [id number] mg by L ukes 100 MG 11:41: 3D mouth 3 Medical capsule 24 (three) Center times daily. insulin NPH 2017-0 Yes 22U Inject [address] 100 unit/mL 4-28 Units [facility] (3 mL) InPn 11:41: subcutaneo Medical 24 usly every Center morning before breakfast . insulin 2017-0 Yes 8U Inject [address] aspart 4-28 Units [facility] (NOVOLOG) 11:41: subcutaneo Me dical 100 unit/mL 24 usly 2 Center injection (two) times daily as needed Only gives herself insulin fo BS above 100 - 8 units. insulin NPH 2017-0 Yes 4U Q.5D Inject [address] 100 unit/mL 4-28 Units [facility] (3 mL) InPn 11:41: subcutaneo Medical 24 usly 2 Center (two) times daily Every NOON and every NIGHT . tacrolimus 2017-0 Yes 1mg Q.5D Take [address] (PROGRAF) 1 4-28 by mouth 2 Iram kes MG capsule 11:41: (two) Medica l 24 times Center daily. mycophenola 2017-0 Yes Q.5D Take by [facility] te 4-28 mouth 2 [facility] (CELLCEPT) 11:41: (two) Medica l 500 mg 24 times Center tablet daily. predniSONE 2017- Yes 5mg QD Take [address] (DELTASONE) 4-28 by mouth Luke s 5 MG tablet 11:41: daily. Medi michael 24 [place] amLODIPine 20170 Yes 10mg QD Take [address] (NORVASC) 4-28 by mouth [facility] 10 MG 11:41: daily. Medical tablet 24 [place] losartan 20170 Yes 50mg QD Take [address] (COZAAR) 50 4-28 by mouth Luke s MG tablet 11:41: daily. Medica l 24 [place] cloNIDine 2017-0 Yes .1mg Q.[id number] Take 0.[address] HCl 4-28 [id number] mg by [facility] (CATAPRES) 11:41: 3D mouth 3 Medi michael 0.1 MG 24 (three) Center tablet times daily. omeprazole 2017-0 Yes 40mg QD Take [address] (PRILOSEC) 4-28 by mouth [facility] 40 MG 11:41: daily. Medical capsule 24 Center simvastatin 20170 Yes 20mg QD Take [address] (ZOCOR) 20 4-28 by mouth [facility] MG tablet 11:41: nightly. Medi michael 24 [place] calcitriol 2017-0 Yes .25ug QD Take 0.[address] (ROCALTROL) 4-28 mcg by [facility] 0.25 MCG 11:41: mouth Medical capsule 24 daily. Center alendronate 2017-0 Yes 70mg Take [address] (FOSAMAX) 4-28 by mouth [facility] 70 MG 11:41: every 7 Medical tablet 24 days Take Center in the morning with a full glass of water, on an empty stomach, and do not take anything else by mouth or lie down for the next 30 min. . gabapentin 2017-0 Yes 100mg Q.43443400 Take [address] (NEURONTIN) 4-28 [id number] mg by L ukes 100 MG 11:41: 3D mouth 3 Medical capsule 24 (three) Center times daily. insulin NPH 2017-0 Yes 22U Inject [address] 100 unit/mL 4-28 Units [facility] (3 mL) InPn 11:41: subcutaneo Medical 24 usly every Center morning before breakfast . insulin 2017-0 Yes 8U Inject [address] aspart 4-28 Units [facility] (NOVOLOG) 11:41: subcutaneo Me dical 100 unit/mL 24 usly 2 Center injection (two) times daily as needed Only gives herself insulin fo BS above 100 - 8 units. insulin NPH 2017-0 Yes 4U Q.5D Inject [address] 100 unit/mL 4-28 [facility] (3 mL) InPn 11:41: subcutaneo Medical 24 usly 2 Center (two) times daily Every NOON and every NIGHT . tacrolimus 2017-0 Yes 1mg Q.5D Take [address] (PROGRAF) 1 4-28 by mouth 2 Iram kes MG capsule 11:41: (two) Medica l 24 times Center daily. mycophenola 2017-0 Yes Q.5D Take by [facility] te 4-28 mouth 2 [facility] (CELLCEPT) 11:41: (two) Medica l 500 mg 24 times Center tablet daily. predniSONE 2017-0 Yes 5mg QD Take [address] (DELTASONE) 4-28 by mouth Luke [facility] 5 MG tablet 11:41: daily. Medi michael 24 Center amLODIPine 2017-0 Yes 10mg QD Take [address] (NORVASC) 4-28 by mouth [facility] 10 MG 11:41: daily. Medical tablet 24 Center losartan 2017-0 Yes 50mg QD Take [address] (COZAAR) 50 4-28 by mouth Luke s MG tablet 11:41: daily. Medica l 24 Center cloNIDine 2017-0 Yes .1mg Q.[id number] Take 0.[address] HCl 4-28 [id number] mg by [facility] (CATAPRES) 11:41: 3D mouth 3 Medi michael 0.1 MG 24 (three) Center tablet times daily. omeprazole 2017-0 Yes 40mg QD Take [address] (PRILOSEC) 4-28 by mouth [facility] 40 MG 11:41: daily. Medical capsule 24 Center simvastatin 2017 Yes 20mg QD Take [address] (ZOCOR) 20 4-28 by mouth [facility] MG tablet 11:41: nightly. Medi michael 24 [place] calcitriol 2017- Yes .25ug QD Take 0.[address] (ROCALTROL) 4-28 mcg by [facility] 0.25 MCG 11:41: mouth Medical capsule 24 daily. [place] alendronate Yes 70mg Take [address] (FOSAMAX) 4-28 by mouth [facility] 70 MG 11:41: every 7 Medical tablet 24 days Take Center in the morning with a full glass of water, on an empty stomach, and do not take anything else by mouth or lie down for the next 30 min. . gabapentin 2017- Yes 100mg Q.[id number] Take [address] (NEURONTIN) 4-28 [id number] mg by L ukes 100 MG 11:41: 3D mouth 3 Medical capsule 24 (three) Center times daily. insulin NPH Yes 22U Inject [address] 100 unit/mL 4-28 Units [facility] (3 mL) InPn 11:41: subcutaneo Medical 24 usly every Center morning before breakfast . insulin 2017-0 Yes 8U Inject [address] aspart 4-28 Units [facility] (NOVOLOG) 11:41: subcutaneo Me dical 100 unit/mL 24 usly 2 Center injection (two) times daily as needed Only gives herself insulin fo BS above 100 - 8 units. insulin NPH 2017-0 Yes 4U Q.5D Inject [address] 100 unit/mL 4-28 Units [facility] (3 mL) InPn 11:41: subcutaneo Medical 24 usly 2 Center (two) times daily Every NOON and every NIGHT . tacrolimus 2017-0 Yes 1mg Q.5D Take [address] (PROGRAF) 1 4-28 by mouth 2 Iram kes MG capsule 11:41: (two) Medica l 24 times Center daily. mycophenola Yes Q.5D Take by [facility] St te 4-28 mouth 2 [facility] (CELLCEPT) 11:41: (two) Medica l 500 mg 24 times Center tablet daily. alendronate 2015-08- No 1{tbl} 1 tablet. [facility] (FOSAMAX) 0-04 06-21 [facility] 70 [facility] 00:00: 00:00 [facility] tablet 00 :00 l losartan 2020- No 2{tbl} 2 tablets. [facility] (COZAAR) 50 5-14 06-21 [facility] tablet 00:00: 00:00 [facility]osp[facility] 00 :00 l PredniSONE PredniSONE Yes Na Long 1 tablet Common [facility] Prograf Prograf Yes Na Long not Common defined [facility] Senna Senna Yes Na Long not Common defined [facility] Catapres Catapres Yes Na Long not Comm on defined [facility] Tradjenta Tradjenta Yes Na Long not Co mmon [facility] Lactulose Lactulose Yes Na Long not Co mmon [facility] Amlodipine Amlodipine Yes Na Long 1 tablet Common Besylate Besylate [facility] Coreg Coreg Yes Na Long 1 tablet Common with food [facility] ProAir HFA ProAir HFA Yes Na Long 1 puff as Common needed [facility] Simvastatin Simvastatin Yes Na Long 1 tablet Common in the [facility] CellCept CellCept Yes Na Long not Comm on defined [facility] megace megace Yes Na Long not Common defined [facility] Tylenol # 3 Tylenol # 3 Yes Na Long not Common defined [facility] MiraLax MiraLax Yes Na Long as Common directed [facility] Mycophenola Mycophenola Yes Na Long as Common te Mofetil te Mofetil directed [facility] Tums Tums Yes Na Long not Common defined [facility] Calcitriol Calcitriol Yes Na Long not Common defined [facility] Norvasc Norvasc Yes Na Long not Common defined [facility] Tacrolimus Tacrolimus Yes Na Long 2 tablets Common [facility] Zocor Zocor Yes Na Long not Common defined [facility] Insulin NPH Insulin NPH Yes Na Long as Common (Human) (Human) directed Spiri t (Isophane) (Isophane) - C [facility] Prilosec Prilosec Yes Na Long not Comm on defined [facility] Omeprazole Omeprazole Yes Na Long 1 capsule Common 30 minutes [facility] before - [facility] morning [facility] Gabapentin Gabapentin Yes Na Long 1 capsule Common [facility] Prolia Prolia Yes Na Long as Common directed [facility] NovoLog NovoLog Yes Na Long as Common Flexpen Flexpen directed Spiri [facility] Clonidine Clonidine Yes Na Long 1 tablet Common HCl HCl [facility] Senokot S Senokot S Yes Na Long 1 tablet Common in the [facility] evening as - [facility] needed [facility] Magnesium Magnesium Yes Na Long 1 tablet Common Chloride Chloride [facility] Doxycycline Doxycycline Yes Na Long 1 capsule Common Hyclate Hyclate [facility] Azithromyci Azithromyci Yes Na Long 2 tablets Common n n on the [facility] first day, - [facility] then [facility] daily for Medical 4 days Center Flonase Flonase Yes Na Long 2 spray in Common each [facility] nostril [facility] Humalog Humalog Yes Na Long not Common defined [facility] Cetirizine Cetirizine Yes Na Long TAKE 1 Common HCl HCl TABLET BY [facility] MOUTH - [facility] EVERY DAY [facility] predniSONE predniSONE No 1{table QD 5 MG 5 MG t} NovoLOG NovoLOG No FlexPen 100 FlexPen 100 UNIT/ML UNIT/ML Mycophenola Mycophenola No BID te Mofetil te Mofetil 500 MG 500 MG Fluconazole Fluconazole No 1{table 200 MG 200 MG t} Catapres Catapres No Senna Senna No Cetirizine Cetirizine No HCl 10 MG HCl 10 MG ProAir HFA ProAir HFA No 1{puff_ 6xD 108 (90 108 (90 as_need Base) Base) ed} MCG/ACT MCG/ACT amLODIPine amLODIPine No 1{table QD Besylate 10 Besylate 10 t} MG MG Tamsulosin Tamsulosin No 1{capsu QD HCl 0.4 MG HCl 0.4 MG le} Zocor Zocor No megace megace No Lactulose Lactulose No Insulin NPH Insulin NPH No (Human) (Human) (Isophane) (Isophane) 100 UNIT/ML 100 UNIT/ML Prograf Prograf No Tylenol # 3 Tylenol # 3 No Tradjenta Tradjenta No Calcitriol Calcitriol No 0.5 MCG 0.5 MCG Tacrolimus Tacrolimus No 2{table QD 0.5 MG 0.5 MG ts} cloNIDine cloNIDine No 1{table QD HCl 0.1 MG HCl 0.1 MG t} Furosemide Furosemide No 2{table QD 20 MG 20 MG ts} Simvastatin Simvastatin No 1{table QD 20 MG 20 MG t_in_th e_eveni ng} Senokot S Senokot S No 1{table QD 8.6-50 MG 8.6-50 MG t_in_th e_eveni ng_as_n eeded} Coreg 12.5 Coreg 12.5 No 1{table BID MG MG t_with_ food} Norvasc Norvasc No Gabapentin Gabapentin No 1{capsu TID 100 MG 100 MG le} HumaLOG HumaLOG No Magnesium Magnesium No 1{table BID Chloride 64 Chloride 64 t} MG MG Cetirizine Cetirizine No HCl 10 MG HCl 10 MG MiraLax - MiraLax - No Prolia 60 Prolia 60 No MG/ML MG/ML Omeprazole Omeprazole No QD 40 MG 40 MG Flonase 50 Flonase 50 No 2{spray QD MCG/ACT MCG/ACT _in_eac h_nostr il} Tums Tums No CellCept CellCept No Levothyroxi Levothyroxi No 2{table QD ne Sodium ne Sodium ts} 25 MCG 25 MCG PriLOSEC PriLOSEC No Magnesium Magnesium No 1{table BID Magnesium Chloride 64 Chloride 64 t} Chloride MG MG 64 MG Lactulose Lactulose No Lactulose Tacrolimus Tacrolimus No 2{table QD Tacrolimus 0.5 MG 0.5 MG ts} 0.5 MG Zocor Zocor No Zocor Insulin NPH Insulin NPH No Insulin (Human) (Human) NPH (Isophane) (Isophane) (Human) 100 UNIT/ML 100 UNIT/ML (Isophane) 100 UNIT/ML Tradjenta Tradjenta No Tradjenta Calcitriol Calcitriol No Calcitriol 0.5 MCG 0.5 MCG 0.5 MCG HumaLOG HumaLOG No HumaLOG Tylenol # 3 Tylenol # 3 No Tylenol # 3 Prograf Prograf No Prograf NovoLOG NovoLOG No NovoLOG FlexPen 100 FlexPen 100 FlexPen UNIT/ML UNIT/ML 100 UNIT/ML megace megace No megace Catapres Catapres No Catapres Coreg 12.5 Coreg 12.5 No 1{table BID Coreg 12.5 MG MG t_with_ MG food} predniSONE predniSONE No 1{table QD predniSONE 5 MG 5 MG t} 5 MG ProAir HFA ProAir HFA No 1{puff_ 6xD ProAir HFA 108 (90 108 (90 as_need 108 (90 Base) Base) ed} Base) MCG/ACT MCG/ACT MCG/ACT Simvastatin Simvastatin No 1{table QD Simvastati 20 MG 20 MG t_in_th n 20 MG e_eveni ng} Norvasc Norvasc No Norvasc Mycophenola Mycophenola No BID Mycophenol te Mofetil te Mofetil ate 500 MG 500 MG Mofetil 500 MG amLODIPine amLODIPine No 1{table QD amLODIPine Besylate 10 Besylate 10 t} Besylate MG MG 10 MG Tums Tums No Tums Cetirizine Cetirizine No Cetirizine HCl 10 MG HCl 10 MG HCl 10 MG Omeprazole Omeprazole No QD Omeprazole 40 MG 40 MG 40 MG Tamsulosin Tamsulosin No 1{capsu QD Tamsulosin HCl 0.4 MG HCl 0.4 MG le} HCl 0.4 MG Senokot S Senokot S No 1{table QD Senokot S 8.6-50 MG 8.6-50 MG t_in_th 8.6-50 MG e_eveni ng_as_n eeded} MiraLax - MiraLax - No MiraLax - Fluconazole Fluconazole No 1{table Fluconazol 200 MG 200 MG t} e 200 MG Senna Senna No Senna CellCept CellCept No CellCept Gabapentin Gabapentin No 1{capsu TID Gabapentin 100 MG 100 MG le} 100 MG PriLOSEC PriLOSEC No PriLOSEC Levothyroxi Levothyroxi No 2{table QD Levothyrox ne Sodium ne Sodium ts} ine Sodium 25 MCG 25 MCG 25 MCG Prolia 60 Prolia 60 No Prolia 60 MG/ML MG/ML MG/ML Furosemide Furosemide No 2{table QD Furosemide 20 MG 20 MG ts} 20 MG Flonase 50 Flonase 50 No 2{spray QD Flonase 50 MCG/ACT MCG/ACT _in_eac MCG/ACT h_nostr il} cloNIDine cloNIDine No 1{table QD cloNIDine HCl 0.1 MG HCl 0.1 MG t} HCl 0.1 MG Cetirizine Cetirizine No Cetirizine HCl 10 MG HCl 10 MG HCl 10 MG Magnesium Magnesium No 1{table BID Magnesium Chloride 64 Chloride 64 t} Chloride MG MG 64 MG Insulin NPH Insulin NPH No Insulin (Human) (Human) NPH (Isophane) (Isophane) (Human) 100 UNIT/ML 100 UNIT/ML (Isophane) 100 UNIT/ML Coreg 12.5 Coreg 12.5 No 1{table BID Coreg 12.5 MG MG t_with_ MG food} HumaLOG HumaLOG No HumaLOG Gabapentin Gabapentin No 1{capsu TID Gabapentin 100 MG 100 MG le} 100 MG Prolia 60 Prolia 60 No Prolia 60 MG/ML MG/ML MG/ML amLODIPine amLODIPine No 1{table QD amLODIPine Besylate 10 Besylate 10 t} Besylate MG MG 10 MG megace megace No megace Prograf Prograf No Prograf cloNIDine cloNIDine No 1{table QD cloNIDine HCl 0.1 MG HCl 0.1 MG t} HCl 0.1 MG Simvastatin Simvastatin No 1{table QD Simvastati 20 MG 20 MG t_in_th n 20 MG e_eveni ng} Tacrolimus Tacrolimus No 2{table QD Tacrolimus 0.5 MG 0.5 MG ts} 0.5 MG Furosemide Furosemide No 2{table QD Furosemide 20 MG 20 MG ts} 20 MG Zocor Zocor No Zocor Mycophenola Mycophenola No BID Mycophenol te Mofetil te Mofetil ate 500 MG 500 MG Mofetil 500 MG Tradjenta Tradjenta No Tradjenta Omeprazole Omeprazole No QD Omeprazole 40 MG 40 MG 40 MG Lactulose Lactulose No Lactulose Tums Tums No Tums Tamsulosin Tamsulosin No 1{capsu QD Tamsulosin HCl 0.4 MG HCl 0.4 MG le} HCl 0.4 MG Senna Senna No Senna ProAir HFA ProAir HFA No 1{puff_ 6xD ProAir HFA 108 (90 108 (90 as_need 108 (90 Base) Base) ed} Base) MCG/ACT MCG/ACT MCG/ACT Norvasc Norvasc No Norvasc Calcitriol Calcitriol No Calcitriol 0.5 MCG 0.5 MCG 0.5 MCG Fluconazole Fluconazole No 1{table Fluconazol 200 MG 200 MG t} e 200 MG Senokot S Senokot S No 1{table QD Senokot S 8.6-50 MG 8.6-50 MG t_in_th 8.6-50 MG e_eveni ng_as_n eeded} Tylenol # 3 Tylenol # 3 No Tylenol # 3 Catapres Catapres No Catapres MiraLax - MiraLax - No MiraLax - NovoLOG NovoLOG No NovoLOG FlexPen 100 FlexPen 100 FlexPen UNIT/ML UNIT/ML 100 UNIT/ML PriLOSEC PriLOSEC No PriLOSEC predniSONE predniSONE No 1{table QD predniSONE 5 MG 5 MG t} 5 MG Flonase 50 Flonase 50 No 2{spray QD Flonase 50 MCG/ACT MCG/ACT _in_eac MCG/ACT h_nostr il} Cetirizine Cetirizine No Cetirizine HCl 10 MG HCl 10 MG HCl 10 MG CellCept CellCept No CellCept Cetirizine Cetirizine No Cetirizine HCl 10 MG HCl 10 MG HCl 10 MG Levothyroxi Levothyroxi No 2{table QD Levothyrox ne Sodium ne Sodium ts} ine Sodium 25 MCG 25 MCG 25 MCG Prograf Prograf No Prograf Tamsulosin Tamsulosin No 1{capsu QD Tamsulosin HCl 0.4 MG HCl 0.4 MG le} HCl 0.4 MG Flonase 50 Flonase 50 No 2{spray QD Flonase 50 MCG/ACT MCG/ACT _in_eac MCG/ACT h_nostr il} Tacrolimus Tacrolimus No 2{table QD Tacrolimus 0.5 MG 0.5 MG ts} 0.5 MG MiraLax - MiraLax - No MiraLax - Furosemide Furosemide No 2{table QD Furosemide 20 MG 20 MG ts} 20 MG Senna Senna No Senna Tylenol # 3 Tylenol # 3 No Tylenol # 3 Cetirizine Cetirizine No Cetirizine HCl 10 MG HCl 10 MG HCl 10 MG Norvasc Norvasc No Norvasc predniSONE predniSONE No 1{table QD predniSONE 5 MG 5 MG t} 5 MG Levothyroxi Levothyroxi No 2{table QD Levothyrox ne Sodium ne Sodium ts} ine Sodium 25 MCG 25 MCG 25 MCG Calcitriol Calcitriol No Calcitriol 0.5 MCG 0.5 MCG 0.5 MCG Tums Tums No Tums Coreg 12.5 Coreg 12.5 No 1{table BID Coreg 12.5 MG MG t_with_ MG food} Tradjenta Tradjenta No Tradjenta CellCept CellCept No CellCept Cetirizine Cetirizine No Cetirizine HCl 10 MG HCl 10 MG HCl 10 MG Fluconazole Fluconazole No 1{table Fluconazol 200 MG 200 MG t} e 200 MG Senokot S Senokot S No 1{table QD Senokot S 8.6-50 MG 8.6-50 MG t_in_th 8.6-50 MG e_eveni ng_as_n eeded} HumaLOG HumaLOG No HumaLOG Zocor Zocor No Zocor PriLOSEC PriLOSEC No PriLOSEC Simvastatin Simvastatin No 1{table QD Simvastati 20 MG 20 MG t_in_th n 20 MG e_eveni ng} Insulin NPH Insulin NPH No Insulin (Human) (Human) NPH (Isophane) (Isophane) (Human) 100 UNIT/ML 100 UNIT/ML (Isophane) 100 UNIT/ML Prolia 60 Prolia 60 No Prolia 60 MG/ML MG/ML MG/ML megace megace No megace Lactulose Lactulose No Lactulose cloNIDine cloNIDine No 1{table QD cloNIDine HCl 0.1 MG HCl 0.1 MG t} HCl 0.1 MG Gabapentin Gabapentin No 1{capsu TID Gabapentin 100 MG 100 MG le} 100 MG Catapres Catapres No Catapres amLODIPine amLODIPine No 1{table QD amLODIPine Besylate 10 Besylate 10 t} Besylate MG MG 10 MG ProAir HFA ProAir HFA No 1{puff_ 6xD ProAir HFA 108 (90 108 (90 as_need 108 (90 Base) Base) ed} Base) MCG/ACT MCG/ACT MCG/ACT Mycophenola Mycophenola No BID Mycophenol te Mofetil te Mofetil ate 500 MG 500 MG Mofetil 500 MG Omeprazole Omeprazole No QD Omeprazole 40 MG 40 MG 40 MG NovoLOG NovoLOG No NovoLOG FlexPen 100 FlexPen 100 FlexPen UNIT/ML UNIT/ML 100 UNIT/ML Magnesium Magnesium No 1{table BID Magnesium Chloride 64 Chloride 64 t} Chloride MG MG 64 MG Tacrolimus Tacrolimus No 2{table QD Tacrolimus 0.5 MG 0.5 MG ts} 0.5 MG predniSONE predniSONE No 1{table QD predniSONE 5 MG 5 MG t} 5 MG CellCept CellCept No CellCept Coreg 12.5 Coreg 12.5 No 1{table BID Coreg 12.5 MG MG t_with_ MG food} Zocor Zocor No Zocor Gabapentin Gabapentin No 1{capsu TID Gabapentin 100 MG 100 MG le} 100 MG MiraLax - MiraLax - No MiraLax - Flonase 50 Flonase 50 No 2{spray QD Flonase 50 MCG/ACT MCG/ACT _in_eac MCG/ACT h_nostr il} megace megace No megace Omeprazole Omeprazole No QD Omeprazole 40 MG 40 MG 40 MG Senna Senna No Senna PriLOSEC PriLOSEC No PriLOSEC Tums Tums No Tums Tradjenta Tradjenta No Tradjenta Calcitriol Calcitriol No Calcitriol 0.5 MCG 0.5 MCG 0.5 MCG Cetirizine Cetirizine No Cetirizine HCl 10 MG HCl 10 MG HCl 10 MG Levothyroxi Levothyroxi No 2{table QD Levothyrox ne Sodium ne Sodium ts} ine Sodium 25 MCG 25 MCG 25 MCG Tamsulosin Tamsulosin No 1{capsu QD Tamsulosin HCl 0.4 MG HCl 0.4 MG le} HCl 0.4 MG Fluconazole Fluconazole No 1{table Fluconazol 200 MG 200 MG t} e 200 MG Simvastatin Simvastatin No 1{table QD Simvastati 20 MG 20 MG t_in_th n 20 MG e_eveni ng} Tylenol # 3 Tylenol # 3 No Tylenol # 3 ProAir HFA ProAir HFA No 1{puff_ 6xD ProAir HFA 108 (90 108 (90 as_need 108 (90 Base) Base) ed} Base) MCG/ACT MCG/ACT MCG/ACT Insulin NPH Insulin NPH No Insulin (Human) (Human) NPH (Isophane) (Isophane) (Human) 100 UNIT/ML 100 UNIT/ML (Isophane) 100 UNIT/ML Furosemide Furosemide No 2{table QD Furosemide 20 MG 20 MG ts} 20 MG Norvasc Norvasc No Norvasc cloNIDine cloNIDine No 1{table QD cloNIDine HCl 0.1 MG HCl 0.1 MG t} HCl 0.1 MG Catapres Catapres No Catapres Prolia 60 Prolia 60 No Prolia 60 MG/ML MG/ML MG/ML amLODIPine amLODIPine No 1{table QD amLODIPine Besylate 10 Besylate 10 t} Besylate MG MG 10 MG Lactulose Lactulose No Lactulose Mycophenola Mycophenola No BID Mycophenol te Mofetil te Mofetil ate 500 MG 500 MG Mofetil 500 MG Senokot S Senokot S No 1{table QD Senokot S 8.6-50 MG 8.6-50 MG t_in_th 8.6-50 MG e_eveni ng_as_n eeded} Magnesium Magnesium No 1{table BID Magnesium Chloride 64 Chloride 64 t} Chloride MG MG 64 MG Prograf Prograf No Prograf Cetirizine Cetirizine No Cetirizine HCl 10 MG HCl 10 MG HCl 10 MG HumaLOG HumaLOG No HumaLOG NovoLOG NovoLOG No NovoLOG FlexPen 100 FlexPen 100 FlexPen UNIT/ML UNIT/ML 100 UNIT/ML Tacrolimus Tacrolimus No 2{table QD Tacrolimus 0.5 MG 0.5 MG ts} 0.5 MG predniSONE predniSONE No 1{table QD predniSONE 5 MG 5 MG t} 5 MG CellCept CellCept No CellCept Coreg 12.5 Coreg 12.5 No 1{table BID Coreg 12.5 MG MG t_with_ MG food} Zocor Zocor No Zocor Gabapentin Gabapentin No 1{capsu TID Gabapentin 100 MG 100 MG le} 100 MG MiraLax - MiraLax - No MiraLax - Flonase 50 Flonase 50 No 2{spray QD Flonase 50 MCG/ACT MCG/ACT _in_eac MCG/ACT h_nostr il} megace megace No megace Omeprazole Omeprazole No QD Omeprazole 40 MG 40 MG 40 MG Senna Senna No Senna PriLOSEC PriLOSEC No PriLOSEC Tums Tums No Tums Tradjenta Tradjenta No Tradjenta Calcitriol Calcitriol No Calcitriol 0.5 MCG 0.5 MCG 0.5 MCG Cetirizine Cetirizine No Cetirizine HCl 10 MG HCl 10 MG HCl 10 MG Levothyroxi Levothyroxi No 2{table QD Levothyrox ne Sodium ne Sodium ts} ine Sodium 25 MCG 25 MCG 25 MCG Tamsulosin Tamsulosin No 1{capsu QD Tamsulosin HCl 0.4 MG HCl 0.4 MG le} HCl 0.4 MG Fluconazole Fluconazole No 1{table Fluconazol 200 MG 200 MG t} e 200 MG Simvastatin Simvastatin No 1{table QD Simvastati 20 MG 20 MG t_in_th n 20 MG e_eveni ng} Tylenol # 3 Tylenol # 3 No Tylenol # 3 ProAir HFA ProAir HFA No 1{puff_ 6xD ProAir HFA 108 (90 108 (90 as_need 108 (90 Base) Base) ed} Base) MCG/ACT MCG/ACT MCG/ACT Insulin NPH Insulin NPH No Insulin (Human) (Human) NPH (Isophane) (Isophane) (Human) 100 UNIT/ML 100 UNIT/ML (Isophane) 100 UNIT/ML Furosemide Furosemide No 2{table QD Furosemide 20 MG 20 MG ts} 20 MG Norvasc Norvasc No Norvasc cloNIDine cloNIDine No 1{table QD cloNIDine HCl 0.1 MG HCl 0.1 MG t} HCl 0.1 MG Catapres Catapres No Catapres Prolia 60 Prolia 60 No Prolia 60 MG/ML MG/ML MG/ML amLODIPine amLODIPine No 1{table QD amLODIPine Besylate 10 Besylate 10 t} Besylate MG MG 10 MG Lactulose Lactulose No Lactulose Mycophenola Mycophenola No BID Mycophenol te Mofetil te Mofetil ate 500 MG 500 MG Mofetil 500 MG Senokot S Senokot S No 1{table QD Senokot S 8.6-50 MG 8.6-50 MG t_in_th 8.6-50 MG e_eveni ng_as_n eeded} Magnesium Magnesium No 1{table BID Magnesium Chloride 64 Chloride 64 t} Chloride MG MG 64 MG Prograf Prograf No Prograf Cetirizine Cetirizine No Cetirizine HCl 10 MG HCl 10 MG HCl 10 MG HumaLOG HumaLOG No HumaLOG NovoLOG NovoLOG No NovoLOG FlexPen 100 FlexPen 100 FlexPen UNIT/ML UNIT/ML 100 UNIT/ML Flonase 50 Flonase 50 No 2{spray QD Flonase 50 MCG/ACT MCG/ACT _in_eac MCG/ACT h_nostr il} Senokot S Senokot S No 1{table QD Senokot S 8.6-50 MG 8.6-50 MG t_in_th 8.6-50 MG e_eveni ng_as_n eeded} Zocor Zocor No Zocor Cetirizine Cetirizine No Cetirizine HCl 10 MG HCl 10 MG HCl 10 MG ProAir HFA ProAir HFA No 1{puff_ 6xD ProAir HFA 108 (90 108 (90 as_need 108 (90 Base) Base) ed} Base) MCG/ACT MCG/ACT MCG/ACT Senna Senna No Senna Fluconazole Fluconazole No 1{table Fluconazol 200 MG 200 MG t} e 200 MG Gabapentin Gabapentin No 1{capsu TID Gabapentin 100 MG 100 MG le} 100 MG HumaLOG HumaLOG No HumaLOG Cetirizine Cetirizine No Cetirizine HCl 10 MG HCl 10 MG HCl 10 MG Insulin NPH Insulin NPH No Insulin (Human) (Human) NPH (Isophane) (Isophane) (Human) 100 UNIT/ML 100 UNIT/ML (Isophane) 100 UNIT/ML Prograf Prograf No Prograf Mycophenola Mycophenola No BID Mycophenol te Mofetil te Mofetil ate 500 MG 500 MG Mofetil 500 MG CellCept CellCept No CellCept predniSONE predniSONE No 1{table QD predniSONE 5 MG 5 MG t} 5 MG Tacrolimus Tacrolimus No 2{table QD Tacrolimus 0.5 MG 0.5 MG ts} 0.5 MG Catapres Catapres No Catapres Tradjenta Tradjenta No Tradjenta Tamsulosin Tamsulosin No 1{capsu QD Tamsulosin HCl 0.4 MG HCl 0.4 MG le} HCl 0.4 MG Lactulose Lactulose No Lactulose Simvastatin Simvastatin No 1{table QD Simvastati 20 MG 20 MG t_in_th n 20 MG e_eveni ng} cloNIDine cloNIDine No 1{table QD cloNIDine HCl 0.1 MG HCl 0.1 MG t} HCl 0.1 MG Tylenol # 3 Tylenol # 3 No Tylenol # 3 Prolia 60 Prolia 60 No Prolia 60 MG/ML MG/ML MG/ML Magnesium Magnesium No 1{table BID Magnesium Chloride 64 Chloride 64 t} Chloride MG MG 64 MG amLODIPine amLODIPine No 1{table QD amLODIPine Besylate 10 Besylate 10 t} Besylate MG MG 10 MG Coreg 12.5 Coreg 12.5 No 1{table BID Coreg 12.5 MG MG t_with_ MG food} NovoLOG NovoLOG No NovoLOG FlexPen 100 FlexPen 100 FlexPen UNIT/ML UNIT/ML 100 UNIT/ML Calcitriol Calcitriol No Calcitriol 0.5 MCG 0.5 MCG 0.5 MCG MiraLax - MiraLax - No MiraLax - Omeprazole Omeprazole No QD Omeprazole 40 MG 40 MG 40 MG Norvasc Norvasc No Norvasc PriLOSEC PriLOSEC No PriLOSEC Tums Tums No Tums megace megace No megace Levothyroxi Levothyroxi No 2{table QD Levothyrox ne Sodium ne Sodium ts} ine Sodium 25 MCG 25 MCG 25 MCG Furosemide Furosemide No 2{table QD Furosemide 20 MG 20 MG ts} 20 MG Flonase 50 Flonase 50 No 2{spray QD Flonase 50 MCG/ACT MCG/ACT _in_eac MCG/ACT h_nostr il} Senokot S Senokot S No 1{table QD Senokot S 8.6-50 MG 8.6-50 MG t_in_th 8.6-50 MG e_eveni ng_as_n eeded} Zocor Zocor No Zocor Cetirizine Cetirizine No Cetirizine HCl 10 MG HCl 10 MG HCl 10 MG ProAir HFA ProAir HFA No 1{puff_ 6xD ProAir HFA 108 (90 108 (90 as_need 108 (90 Base) Base) ed} Base) MCG/ACT MCG/ACT MCG/ACT Senna Senna No Senna Fluconazole Fluconazole No 1{table Fluconazol 200 MG 200 MG t} e 200 MG Gabapentin Gabapentin No 1{capsu TID Gabapentin 100 MG 100 MG le} 100 MG HumaLOG HumaLOG No HumaLOG Cetirizine Cetirizine No Cetirizine HCl 10 MG HCl 10 MG HCl 10 MG Insulin NPH Insulin NPH No Insulin (Human) (Human) NPH (Isophane) (Isophane) (Human) 100 UNIT/ML 100 UNIT/ML (Isophane) 100 UNIT/ML Prograf Prograf No Prograf Mycophenola Mycophenola No BID Mycophenol te Mofetil te Mofetil ate 500 MG 500 MG Mofetil 500 MG CellCept CellCept No CellCept predniSONE predniSONE No 1{table QD predniSONE 5 MG 5 MG t} 5 MG Tacrolimus Tacrolimus No 2{table QD Tacrolimus 0.5 MG 0.5 MG ts} 0.5 MG Catapres Catapres No Catapres Tradjenta Tradjenta No Tradjenta Tamsulosin Tamsulosin No 1{capsu QD Tamsulosin HCl 0.4 MG HCl 0.4 MG le} HCl 0.4 MG Lactulose Lactulose No Lactulose Simvastatin Simvastatin No 1{table QD Simvastati 20 MG 20 MG t_in_th n 20 MG e_eveni ng} cloNIDine cloNIDine No 1{table QD cloNIDine HCl 0.1 MG HCl 0.1 MG t} HCl 0.1 MG Tylenol # 3 Tylenol # 3 No Tylenol # 3 Prolia 60 Prolia 60 No Prolia 60 MG/ML MG/ML MG/ML Magnesium Magnesium No 1{table BID Magnesium Chloride 64 Chloride 64 t} Chloride MG MG 64 MG amLODIPine amLODIPine No 1{table QD amLODIPine Besylate 10 Besylate 10 t} Besylate MG MG 10 MG Coreg 12.5 Coreg 12.5 No 1{table BID Coreg 12.5 MG MG t_with_ MG food} NovoLOG NovoLOG No NovoLOG FlexPen 100 FlexPen 100 FlexPen UNIT/ML UNIT/ML 100 UNIT/ML Calcitriol Calcitriol No Calcitriol 0.5 MCG 0.5 MCG 0.5 MCG MiraLax - MiraLax - No MiraLax - Omeprazole Omeprazole No QD Omeprazole 40 MG 40 MG 40 MG Norvasc Norvasc No Norvasc PriLOSEC PriLOSEC No PriLOSEC Tums Tums No Tums megace megace No megace Levothyroxi Levothyroxi No 2{table QD Levothyrox ne Sodium ne Sodium ts} ine Sodium 25 MCG 25 MCG 25 MCG Furosemide Furosemide No 2{table QD Furosemide 20 MG 20 MG ts} 20 MG Flonase 50 Flonase 50 No 2{spray QD Flonase 50 MCG/ACT MCG/ACT _in_eac MCG/ACT h_nostr il} amLODIPine amLODIPine No 1{table QD amLODIPine Besylate 10 Besylate 10 t} Besylate MG MG 10 MG Cetirizine Cetirizine No Cetirizine HCl 10 MG HCl 10 MG HCl 10 MG Prograf Prograf No Prograf Lactulose Lactulose No Lactulose Senokot S Senokot S No 1{table QD Senokot S 8.6-50 MG 8.6-50 MG t_in_th 8.6-50 MG e_eveni ng_as_n eeded} predniSONE predniSONE No 1{table QD predniSONE 5 MG 5 MG t} 5 MG Mycophenola Mycophenola No BID Mycophenol te Mofetil te Mofetil ate 500 MG 500 MG Mofetil 500 MG Cetirizine Cetirizine No Cetirizine HCl 10 MG HCl 10 MG HCl 10 MG Zocor Zocor No Zocor Tylenol # 3 Tylenol # 3 No Tylenol # 3 CellCept CellCept No CellCept Tacrolimus Tacrolimus No 2{table QD Tacrolimus 0.5 MG 0.5 MG ts} 0.5 MG ProAir HFA ProAir HFA No 1{puff_ 6xD ProAir HFA 108 (90 108 (90 as_need 108 (90 Base) Base) ed} Base) MCG/ACT MCG/ACT MCG/ACT Senna Senna No Senna megace megace No megace Norvasc Norvasc No Norvasc Catapres Catapres No Catapres Gabapentin Gabapentin No 1{capsu TID Gabapentin 100 MG 100 MG le} 100 MG Tamsulosin Tamsulosin No 1{capsu QD Tamsulosin HCl 0.4 MG HCl 0.4 MG le} HCl 0.4 MG PriLOSEC PriLOSEC No PriLOSEC cloNIDine cloNIDine No 1{table QD cloNIDine HCl 0.1 MG HCl 0.1 MG t} HCl 0.1 MG Fluconazole Fluconazole No 1{table Fluconazol 200 MG 200 MG t} e 200 MG HumaLOG HumaLOG No HumaLOG MiraLax - MiraLax - No MiraLax - Tums Tums No Tums NovoLOG NovoLOG No NovoLOG FlexPen 100 FlexPen 100 FlexPen UNIT/ML UNIT/ML 100 UNIT/ML Magnesium Magnesium No 1{table BID Magnesium Chloride 64 Chloride 64 t} Chloride MG MG 64 MG Tradjenta Tradjenta No Tradjenta Levothyroxi Levothyroxi No 2{table QD Levothyrox ne Sodium ne Sodium ts} ine Sodium 25 MCG 25 MCG 25 MCG Calcitriol Calcitriol No Calcitriol 0.5 MCG 0.5 MCG 0.5 MCG Simvastatin Simvastatin No 1{table QD Simvastati 20 MG 20 MG t_in_th n 20 MG e_eveni ng} Prolia 60 Prolia 60 No Prolia 60 MG/ML MG/ML MG/ML Coreg 12.5 Coreg 12.5 No 1{table BID Coreg 12.5 MG MG t_with_ MG food} Insulin NPH Insulin NPH No Insulin (Human) (Human) NPH (Isophane) (Isophane) (Human) 100 UNIT/ML 100 UNIT/ML (Isophane) 100 UNIT/ML Omeprazole Omeprazole No QD Omeprazole 40 MG 40 MG 40 MG Furosemide Furosemide No 2{table QD Furosemide 20 MG 20 MG ts} 20 MG Prograf Prograf No Prograf CellCept CellCept No CellCept megace megace No megace Magnesium Magnesium No 1{table BID Magnesium Chloride 64 Chloride 64 t} Chloride MG MG 64 MG Senokot S Senokot S No 1{table QD Senokot S 8.6-50 MG 8.6-50 MG t_in_th 8.6-50 MG e_eveni ng_as_n eeded} Tacrolimus Tacrolimus No 2{table QD Tacrolimus 0.5 MG 0.5 MG ts} 0.5 MG Zocor Zocor No Zocor Catapres Catapres No Catapres Prolia 60 Prolia 60 No Prolia 60 MG/ML MG/ML MG/ML ProAir HFA ProAir HFA No 1{puff_ 6xD ProAir HFA 108 (90 108 (90 as_need 108 (90 Base) Base) ed} Base) MCG/ACT MCG/ACT MCG/ACT Tradjenta Tradjenta No Tradjenta Norvasc Norvasc No Norvasc Simvastatin Simvastatin No 1{table QD Simvastati 20 MG 20 MG t_in_th n 20 MG e_eveni ng} predniSONE predniSONE No 1{table QD predniSONE 5 MG 5 MG t} 5 MG amLODIPine amLODIPine No 1{table QD amLODIPine Besylate 10 Besylate 10 t} Besylate MG MG 10 MG Coreg 12.5 Coreg 12.5 No 1{table BID Coreg 12.5 MG MG t_with_ MG food} Lactulose Lactulose No Lactulose Mycophenola Mycophenola No BID Mycophenol te Mofetil te Mofetil ate 500 MG 500 MG Mofetil 500 MG cloNIDine cloNIDine No 1{table QD cloNIDine HCl 0.1 MG HCl 0.1 MG t} HCl 0.1 MG Fluconazole Fluconazole No 1{table Fluconazol 200 MG 200 MG t} e 200 MG Tamsulosin Tamsulosin No 1{capsu QD Tamsulosin HCl 0.4 MG HCl 0.4 MG le} HCl 0.4 MG Tums Tums No Tums NovoLOG NovoLOG No NovoLOG FlexPen 100 FlexPen 100 FlexPen UNIT/ML UNIT/ML 100 UNIT/ML Gabapentin Gabapentin No 1{capsu TID Gabapentin 100 MG 100 MG le} 100 MG Calcitriol Calcitriol No Calcitriol 0.5 MCG 0.5 MCG 0.5 MCG Cetirizine Cetirizine No Cetirizine HCl 10 MG HCl 10 MG HCl 10 MG Senna Senna No Senna Insulin NPH Insulin NPH No Insulin (Human) (Human) NPH (Isophane) (Isophane) (Human) 100 UNIT/ML 100 UNIT/ML (Isophane) 100 UNIT/ML Tylenol # 3 Tylenol # 3 No Tylenol # 3 MiraLax - MiraLax - No MiraLax - HumaLOG HumaLOG No HumaLOG PriLOSEC PriLOSEC No PriLOSEC Omeprazole Omeprazole No QD Omeprazole 40 MG 40 MG 40 MG Flonase 50 Flonase 50 No 2{spray QD Flonase 50 MCG/ACT MCG/ACT _in_eac MCG/ACT h_nostr il} Cetirizine Cetirizine No Cetirizine HCl 10 MG HCl 10 MG HCl 10 MG Furosemide Furosemide No 2{table QD Furosemide 20 MG 20 MG ts} 20 MG Levothyroxi Levothyroxi No 2{table QD Levothyrox ne Sodium ne Sodium ts} ine Sodium 25 MCG 25 MCG 25 MCG predniSONE predniSONE No 1{table QD predniSONE 5 MG 5 MG t} 5 MG Flonase 50 Flonase 50 No 2{spray QD Flonase 50 MCG/ACT MCG/ACT _in_eac MCG/ACT h_nostr il} Calcitriol Calcitriol No Calcitriol 0.5 MCG 0.5 MCG 0.5 MCG megace megace No megace Cetirizine Cetirizine No Cetirizine HCl 10 MG HCl 10 MG HCl 10 MG PriLOSEC PriLOSEC No PriLOSEC Omeprazole Omeprazole No QD Omeprazole 40 MG 40 MG 40 MG Mycophenola Mycophenola No BID Mycophenol te Mofetil te Mofetil ate 500 MG 500 MG Mofetil 500 MG Tamsulosin Tamsulosin No 1{capsu QD Tamsulosin HCl 0.4 MG HCl 0.4 MG le} HCl 0.4 MG MiraLax - MiraLax - No MiraLax - Cetirizine Cetirizine No Cetirizine HCl 10 MG HCl 10 MG HCl 10 MG amLODIPine amLODIPine No 1{table QD amLODIPine Besylate 10 Besylate 10 t} Besylate MG MG 10 MG Tacrolimus Tacrolimus No 2{table QD Tacrolimus 0.5 MG 0.5 MG ts} 0.5 MG Gabapentin Gabapentin No 1{capsu TID Gabapentin 100 MG 100 MG le} 100 MG Prolia 60 Prolia 60 No Prolia 60 MG/ML MG/ML MG/ML Levothyroxi Levothyroxi No 2{table QD Levothyrox ne Sodium ne Sodium ts} ine Sodium 25 MCG 25 MCG 25 MCG Tums Tums No Tums Senokot S Senokot S No 1{table QD Senokot S 8.6-50 MG 8.6-50 MG t_in_th 8.6-50 MG e_eveni ng_as_n eeded} Furosemide Furosemide No 2{table QD Furosemide 20 MG 20 MG ts} 20 MG Insulin NPH Insulin NPH No Insulin (Human) (Human) NPH (Isophane) (Isophane) (Human) 100 UNIT/ML 100 UNIT/ML (Isophane) 100 UNIT/ML Norvasc Norvasc No Norvasc PriLOSEC PriLOSEC No PriLOSEC cloNIDine cloNIDine No 1{table QD cloNIDine HCl 0.1 MG HCl 0.1 MG t} HCl 0.1 MG Lactulose Lactulose No Lactulose Tylenol # 3 Tylenol # 3 No Tylenol # 3 Simvastatin Simvastatin No 1{table QD Simvastati 20 MG 20 MG t_in_th n 20 MG e_eveni ng} Magnesium Magnesium No 1{table BID Magnesium Chloride 64 Chloride 64 t} Chloride MG MG 64 MG ProAir HFA ProAir HFA No 1{puff_ 6xD ProAir HFA 108 (90 108 (90 as_need 108 (90 Base) Base) ed} Base) MCG/ACT MCG/ACT MCG/ACT Coreg 12.5 Coreg 12.5 No 1{table BID Coreg 12.5 MG MG t_with_ MG food} Fluconazole Fluconazole No 1{table Fluconazol 200 MG 200 MG t} e 200 MG Senna Senna No Senna CellCept CellCept No CellCept Senna Senna No Senna NovoLOG NovoLOG No NovoLOG FlexPen 100 FlexPen 100 FlexPen UNIT/ML UNIT/ML 100 UNIT/ML Tradjenta Tradjenta No Tradjenta Prograf Prograf No Prograf Zocor Zocor No Zocor HumaLOG HumaLOG No HumaLOG Catapres Catapres No Catapres Tacrolimus Tacrolimus No 2{table QD Tacrolimus 0.5 MG 0.5 MG ts} 0.5 MG Lactulose Lactulose No Lactulose Fluconazole Fluconazole No 1{table Fluconazol 200 MG 200 MG t} e 200 MG Zocor Zocor No Zocor Mycophenola Mycophenola No BID Mycophenol te Mofetil te Mofetil ate 500 MG 500 MG Mofetil 500 MG Tamsulosin Tamsulosin No 1{capsu QD Tamsulosin HCl 0.4 MG HCl 0.4 MG le} HCl 0.4 MG Insulin NPH Insulin NPH No Insulin (Human) (Human) NPH (Isophane) (Isophane) (Human) 100 UNIT/ML 100 UNIT/ML (Isophane) 100 UNIT/ML CellCept CellCept No CellCept Azithromyci Azithromyci No QD Azithromyc n 250 MG n 250 MG in 250 MG Gabapentin Gabapentin No 1{capsu TID Gabapentin 100 MG 100 MG le} 100 MG Catapres Catapres No Catapres Doxycycline Doxycycline No 1{capsu BID Doxycyclin Hyclate 100 Hyclate 100 le} e Hyclate MG MG 100 MG Coreg 12.5 Coreg 12.5 No 1{table BID Coreg 12.5 MG MG t_with_ MG food} ProAir HFA ProAir HFA No 1{puff_ 6xD ProAir HFA 108 (90 108 (90 as_need 108 (90 Base) Base) ed} Base) MCG/ACT MCG/ACT MCG/ACT HumaLOG HumaLOG No HumaLOG Prolia 60 Prolia 60 No Prolia 60 MG/ML MG/ML MG/ML Simvastatin Simvastatin No 1{table QD Simvastati 20 MG 20 MG t_in_th n 20 MG e_eveni ng} Senokot S Senokot S No 1{table QD Senokot S 8.6-50 MG 8.6-50 MG t_in_th 8.6-50 MG e_eveni ng_as_n eeded} Tradjenta Tradjenta No Tradjenta megace megace No megace Omeprazole Omeprazole No QD Omeprazole 40 MG 40 MG 40 MG Tylenol # 3 Tylenol # 3 No Tylenol # 3 predniSONE predniSONE No 1{table QD predniSONE 5 MG 5 MG t} 5 MG NovoLOG NovoLOG No NovoLOG FlexPen 100 FlexPen 100 FlexPen UNIT/ML UNIT/ML 100 UNIT/ML Cetirizine Cetirizine No Cetirizine HCl 10 MG HCl 10 MG HCl 10 MG Prograf Prograf No Prograf Magnesium Magnesium No 1{table BID Magnesium Chloride 64 Chloride 64 t} Chloride MG MG 64 MG amLODIPine amLODIPine No 1{table QD amLODIPine Besylate 10 Besylate 10 t} Besylate MG MG 10 MG Levothyroxi Levothyroxi No 2{table QD Levothyrox ne Sodium ne Sodium ts} ine Sodium 25 MCG 25 MCG 25 MCG MiraLax - MiraLax - No MiraLax - Furosemide Furosemide No 2{table QD Furosemide 20 MG 20 MG ts} 20 MG Flonase 50 Flonase 50 No 2{spray QD Flonase 50 MCG/ACT MCG/ACT _in_eac MCG/ACT h_nostr il} Norvasc Norvasc No Norvasc Calcitriol Calcitriol No Calcitriol 0.5 MCG 0.5 MCG 0.5 MCG cloNIDine cloNIDine No 1{table QD cloNIDine HCl 0.1 MG HCl 0.1 MG t} HCl 0.1 MG Cetirizine Cetirizine No Cetirizine HCl 10 MG HCl 10 MG HCl 10 MG Tums Tums No Tums Immunizations Ordered Immunization Filled Immunization Date Status Commen ts Source Name Name [place] [id number] 2020-09-24 Completed [facility] [id number] 2020-09-24 Completed [facility] 00:00:[place] [id number] 2020-09-24 Completed [facility] 00:00:[place] [id number] 2020-09-24 Completed [facility]ACC[facility] 00:00:00 [facility] FluAD FluAD 2020-06-02 [facility]pleted [facility] 09:[facility]:00 [facility] FluAD FluAD 2020-06-02 Completed [facility] - 09:31:00 [facility] FluAD FluAD 2020-06-02 Completed [facility] - 09:31:00 [facility] FluAD FluAD 2020-06-02 Completed [facility] - 09:31:00 [facility] FluAD FluAD 2020-06-02 Completed [facility] - 09:31:00 [facility] FluAD FluAD 2020-06-02 Completed [facility] - 09:31:00 [facility] FluAD FluAD 2020-06-02 Completed [facility] - 09:31:00 [facility] FluAD FluAD 2020-06-02 Completed [facility] - 09:31:00 [facility] FluAD FluAD 2020-06-02 Completed [facility] - 09:31:00 [facility] FluAD FluAD 2020-06-02 Completed [facility] - 09:31:00 [facility] FluAD FluAD 2020-06-02 Completed [facility] - 09:31:00 [facility] FluAD FluAD 2020-06-02 Completed [facility] - 09:31: [facility] FLUZONE QUAD PF 2019-06-19 [facility]pleted [facility]00 [facility] FLUZONE QUAD PF 2019-06-19 Completed [facility] 00:00:00 [facility] FLUZONE QUAD PF 2019-06-19 Completed [facility] 00:00:00 [facility] FLUZONE QUAD PF 2019-06-19 Completed [facility] 00:00:00 [facility] FLUZONE QUAD 2017-05-10 Completed [facility]00 [facility] FLUZONE QUAD 2017-05-10 Com[facility]00 [facility] FLUZONE QUAD 2017-05-10 Completed [facility] 00:[facility]00 [facility] FLUZONE QUAD 2017-05-10 Completed [facility] 00:00:00 [facility] Pneumococcal 2015-10-14 Completed [facility] Conjugate [facility] 00:00:00 [facility] Pneumococcal 2015-10-14 Completed [facility] Conjugate [facility] 00:00:00 [facility] Pneumococcal 2015-10-14 Completed [facility]10[facility]14 [facility] Vital Signs Vital Name Observation Time Observation Value Comments Source height 2022-03-10 15:45:00 62 [in_i] [facility] weight 2022-03-10 15:45:00 128 [lb_av] [facility] temperature 2022-03-10 15:45:00 98.2 [degF] [facility] bmi 2022-03-10 15:45:00 23.41 kg/m2 [facility] oximetry 2022-03-10 15:45:00 96 % [facility] respiratory rate 2022-03-10 15:45:00 16 /min Comm on [facility] blood pressure 2022-03-10 15:45:00 134 mm[Hg] [facility] systolic [facility] blood pressure 2022-03-10 15:45:00 61 mm[Hg] [facility] - diastolic [facility] height 2022-01-27 17:15:00 62 [in_i] [facility] weight 2022-01-27 17:15:00 125 [lb_av] [facility] temperature 2022-01-27 17:15:00 98.3 [degF] [facility] bmi 2022-01-27 17:15:00 22.86 kg/m2 [facility] 2022-01-27 17:15:00 97 % [facility] respiratory rate 2022-01-27 17:15:00 16 /min Comm on [facility] blood pressure 2022-01-27 17:15:00 150 mm[Hg] [facility] - systolic [facility] blood pressure 2022-01-27 17:15:00 69 mm[Hg] [facility] - diastolic [facility] height 2021-09-30 09:15:00 62 [in_i] [facility] weight 2021-09-30 09:15:00 118 [lb_av] [facility] S [facility] temperature 2021-09-30 09:15:00 98.6 [degF] [facility] bmi 2021-09-30 09:15:00 21.58 kg/m2 [facility] oximetry 2021-09-30 09:15:00 99 % [facility] respiratory rate 2021-09-30 09:15:00 16 /min Comm on [facility] blood pressure 2021-09-30 09:15:00 132 mm[Hg] [facility] - systolic [facility] blood pressure 2021-09-30 09:15:00 68 mm[Hg] [facility] - diastolic [facility] height 2021-09-10 09:15:00 62 [in_i] [facility] weight 2021-09-10 09:15:00 118 [lb_av] [facility] temperature 2021-09-10 09:15:00 98.1 [degF] [facility] bmi 2021-09-10 09:15:00 21.58 kg/m2 [facility] oximetry 2021-09-10 09:15:00 98 % [facility] rate 2021-09-10 09:15:00 16 /min Comm on [facility] blood pressure 2021-09-10 09:15:00 158 mm[Hg] [facility] - systolic [facility] blood pressure 2021-09-10 09:15:00 72 mm[Hg] [facility] - diastolic [facility] height 2021-08-20 09:45:00 62 [in_i] Common [facility] weight 2021-08-20 09:45:00 118 [lb_av] [facility] temperature 2021-08-20 09:45:00 98.2 [degF] [facility] bmi 2021-08-20 09:45:00 21.58 kg/m2 [facility] oximetry 2021-08-20 09:45:00 99 % [facility] respiratory rate 2021-08-20 09:45:00 18 /min Comm on [facility] blood pressure 2021-08-20 09:45:00 149 mm[Hg] [facility] - systolic [facility] blood pressure 2021-08-20 09:45:00 67 mm[Hg] [facility] - diastolic [facility] height 2021-07-23 08:45:00 62 [in_i] [facility] weight 2021-07-23 08:45:00 120 [lb_av] [facility] temperature 2021-07-23 08:45:00 97.6 [degF] [facility] bmi 2021-07-23 08:45:00 21.95 kg/m2 [facility] oximetry 2021-07-23 08:45:00 99 % [facility] respiratory rate 2021-07-23 08:45:00 18 /min Comm on [facility] blood pressure 2021-07-23 08:45:00 174 mm[Hg] [facility] systolic [facility] blood pressure 2021-07-23 08:45:00 70 mm[Hg] [facility] diastolic [facility] height 2021-07-01 09:40:00 62 [in_i] [facility] weight 2021-07-01 09:40:00 119.8 [lb_av] [facility] temperature 2021-07-01 09:40:00 97.2 [degF] [facility] bmi 2021-07-01 09:40:00 21.91 kg/m2 [facility] oximetry 2021-07-01 09:40:00 96 % [facility] Systolic blood 2022-01-13 19:19:00 149 mm[Hg] [facility] pressure Diastolic blood 2022-01-13 19:19:00 68 mm[Hg] [facility] pressure Heart rate 2022-01-13 19:19:00 69 /min [facility] Body temperature 2022-01-13 19:19:00 36.44 Deanna [facility] Body height 2022-01-13 19:19:00 154.9 cm [facility] Body weight 2022-01-13 19:19:00 57.607 kg [facility] BMI 2022-01-13 19:19:00 24.00 kg/m2 [facility] Oxygen saturation in 2022-01-13 19:19:00 99 /min [facility] Arterial blood by Pulse oximetry Respiratory rate 2021-11-24 22:06:27 16 /min [facility] Systolic blood 2021-08-29 16:46:04 126 mm[Hg] Method [facility] pressure Diastolic blood 2021-08-29 16:46:04 67 mm[Hg] [facility] pressure Heart rate 2021-08-29 16:46:04 58 /min [facility] Body temperature 2021-08-29 16:46:04 36.56 De[facility] Respiratory rate 2021-08-29 16:46:04 17 /min [facility] Oxygen saturation in 2021-08-29 16:46:04 98 /min [facility] Arterial blood by Pulse oximetry Body weight 2021-08-29 11:56:00 64.6 kg [facility] BMI 2021-08-29 11:56:00 26.91 kg/m2 [facility] Body height 2021-08-27 02:00:00 154.9 cm [facility] Procedures Procedure Date / Time Performing Clinician Source Performed [id number] 2022-04-30 00:00:00 ACHKA [facility] [id number] 2022-04-30 00:00:00 CHEZU [facility] [id number] 2022-04-30 00:00:00 CHEZU [facility] [id number] 2022-04-30 00:00:00 CHEZU [facility] [id number] 2022-04-28 00:00:00 ACHKA [facility] [id number] 2022-04-26 00:00:00 CHEZU [facility] [id number] 2022-04-26 00:00:00 CHEZU [facility] [id number] 2022-04-26 00:00:00 CHEZU [facility] [id number] 2022-04-26 00:00:00 ACHKA [facility] [id number] 2022-04-26 00:00:00 CHEZU [facility] [id number] 2022-04-26 00:00:00 CHEZU [facility] [id number] 2022-04-26 00:00:00 CHEZU [facility] [id number] 2022-04-26 00:00:00 CHEZU [facility] [id number] 2022-04-26 00:00:00 [facility] [id number] 2022-04-24 00:00:00 JOEL [facility] [id number] 2022-04-23 00:00:00 JOEL [facility] CRYPTOCOCCAL ANTIGEN 2022-03-04 15:02:00 [facility] SCREEN COMPREHENSIVE METABOLIC 2022-03-04 15:02:00 [facility] PANEL CBC WITH PLATELET AND 2022-03-04 15:02:00 [facility] DIFFERENTIAL CRYPTOCOCCAL ANTIGEN 2022-01-07 13:40:00 [facility] SCREEN CBC WITH PLATELET AND 2022-01-07 13:40:00 [facility] DIFFERENTIAL COMPREHENSIVE METABOLIC 2022-01-07 13:40:00 [facility] PANEL POC GLUCOSE 2021-11-24 22:08:00 [facility] POC GLUCOSE 2021-11-24 16:03:00 [facility] POC GLUCOSE 2021-11-24 11:10:00 [facility], [facility] POC GLUCOSE 2021-11-24 01:29:00 [facility], [facility] POC GLUCOSE 2021-11-23 22:05:00 [facility], [facility] POC GLUCOSE 2021-11-23 19:21:00 [facility] HEMODIALYSIS 2021-11-23 14:07:24 Rickey [facility]lo [facility] Eric POC GLUCOSE 2021-11-23 11:09:00 [facility] POC GLUCOSE 2021-11-23 01:15:00 [facility], [facility] POC GLUCOSE 2021-11-22 21:35:00 [facility] POC GLUCOSE 2021-11-22 16:46:00 [facility] CT ABDOMEN PELVIS WO 2021-11-22 14:51:06 Rickey Diallo [facility] CONTRAST Eric POC GLUCOSE 2021-11-22 11:19:00 Al[facility]iq, [facility] BASIC METABOLIC PANEL 2021-11-22 09:13:00 [facility] 2021-11-22 09:13:00 Rickey Diallo [facility] Eric POC GLUCOSE 2021-11-22 01:01:00 [facility] POC GLUCOSE 2021-11-21 20:38:00 Al-L[facility]iq, [facility] POC GLUCOSE 2021-11-21 15:37:00 Al-[facility]iq, [facility] POC GLUCOSE 2021-11-21 11:23:00 Al[facility]iq, [facility] BASIC METABOLIC PANEL 2021-11-21 08:50:00 Yoel [facility] ESTIMATED GFR 2021-11-21 08:50:00 Rickey Diallo [facility] Eric POC GLUCOSE 2021-11-21 00:58:00 [facility], [facility] POC GLUCOSE 2021-11-20 23:40:00 [facility], [facility] POC GLUCOSE 2021-11-20 16:11:00 Al-Lahiq, Joceline [facility] XR ABDOMEN 2 VW AP W 2021-11-20 15:47:49 [facility] UPRIGHT AND/OR DECUBITUS Ali HEMODIALYSIS 2021-11-20 13:35:03 Rickey Diallo [facility] Eric POC GLUCOSE 2021-11-20 11:19:00 [facility]iq, [facility] POC GLUCOSE 2021-11-20 00:34:00 [facility], [facility] POC GLUCOSE 2021-11-19 21:17:00 Al-Lahiq, Joceline Duqueist [facility] HEMODIALYSIS 2021-11-19 13:24:26 Rickey Diallo [facility] Eric POC GLUCOSE 2021-11-19 11:32:00 Al-Lahiq, [facility]oceline [facility] POC GLUCOSE 2021-11-19 00:55:00 Al-Lahiq, [facility] POC GLUCOSE 2021-11-18 21:21:00 Al-Lahiq, [facility] HEMODIALYSIS 2021-11-18 18:30:30 Rickey Diallo [facility] Eric XR ABDOMEN 1 2021-11-18 17:05:00 Rickey Daillo [facility] Eric POC GLUCOSE 2021-11-18 16:14:00 Al-Lahiq, [facility]oc[facility] POC GLUCOSE 2021-11-18 10:46:00 Al-Lahiq, [facility]oc[facility] PHOSPHORUS LEVEL 2021-11-18 09:34:00 Rickey Dialol [facility] Eric RENAL FUNCTION PANEL 2021-11-18 09:34:00 [facility] ESTIM[facility] GFR 2021-11-18 09:34:00 Rickey Diallo [facility] Eric POC GLUCOSE 2021-11-18 00:35:00 Al-Lahiq, [facility]oc[facility] POC GLUCOSE 2021-11-17 21:11:00 Al-Lahiq, Joceline Michaud spital XR ABDOMEN 1 2021-11-17 17:06:00 Al-Lahiq, [facility]oceline [facility] HEMODIALYSIS 2021-11-17 15:55:09 Rickey Diallo [facility] Eric POC GLUCOSE 2021-11-17 12:38:00 Al-Lahiq, Joceline [facility] [id number] TACROLIMUS LEVEL, 2021-11-17 08:41:00 Al-Lahiq, Joceline [facility] TROUGH COVID-19 QUALITATIVE 2021-11-17 04:32[facility]BDOMEN PELVIS WO 2021-11-17 02:43:00 [facility] CONTRAST URINE CULTURE 2021-11-17 01:33:00 [facility] HC COMPLETE BLD COUNT 2021-11-17 01:33:00 [facility] W/AUTO DIFF COMPREHENSIVE METABOLIC 2021-11-17 01:33:00 [facility] PANEL LACTIC ACID LEVEL, SEPSIS 2021-11-17 01:33:00 [facility] - NOW AND REPEAT 2X EVERY 3 HOURS URINALYSIS SCREEN AND 2021-11-17 01:33:00 [facility] MICROSCOPY, WITH REFLEX TO CULTURE ESTIMATED GFR 2021-11-17 01:33:00 [facility] T4, FREE 2021-11-17 01:33:00 [facility] THYROID STIMULATING 2021-11-17 01:33:00 [facility] HORMONE POC GLUCOSE 2021-10-27 22:38:00 [facility] POC GLUCOSE 2021-10-27 16:01:00 [facility], [facility] POC GLUCOSE 2021-10-27 13:35:00 [facility] [id number] TACROLIMUS LEVEL, 2021-10-27 10:06:00 [facility] TROUGH Eric POC GLUCOSE 2021-10-27 01:17:00 [facility] POC GLUCOSE 2021-10-26 21:02:00 [facility], [facility] HEMODIALYSIS 2021-10-26 13:41:45 [place] [facility] Eric POC GLUCOSE 2021-10-26 09:44:00 [facility] POC GLUCOSE 2021-10-26 00:59:00 [facility], [facility] POC GLUCOSE 2021-10-25 20:38:00 [facility], [facility] POC GLUCOSE 2021-10-25 16:30:00 [facility], [facility] [id number] TACROLIMUS LEVEL, 2021-10-25 12:49:00 [facility] TROUGH Eric POC GLUCOSE 2021-10-25 10:17:00 Al[facility]iq, [facility] XR CHEST 1 VW PORTABLE 2021-10-25 07:54:34 Al-Lahiq, [facility] POC GLUCOSE 2021-10-25 00:28:00 [facility]iq, [facility] POC GLUCOSE 2021-10-24 21:31:00 [facility], [facility] POC GLUCOSE 2021-10-24 17:55:00 [facility], [facility] POC GLUCOSE 2021-10-24 11:02:00 Al[facility], [facility] HC COMPLETE BLD COUNT 2021-10-24 09:44:00 Al-Lahiq, [facility] W/AUTO DIFF POC GLUCOSE 2021-10-23 22:41:00 Al-L[facility]iq, [facility] POC GLUCOSE 2021-10-23 21:49:00 Al-[facility]iq, [facility] POC GLUCOSE 2021-10-23 17:23:00 [facility], [facility] HEMODIALYSIS 2021-10-23 14:06:34 Rickey Diallo [facility] Eric XR CHEST 1 VW PORTABLE 2021-10-23 11:13:[address] [facility] POC GLUCOSE 2021-10-23 10:38:00 Al-Lahiq, Joceline [facility] BASIC METABOLIC PANEL 2021-10-23 09:48:00 Rickey Diallo [facility] Eric PHOSPHORUS LEVEL 2021-10-23 09:48:00 Rickey Diallo [facility] Eric ESTIMATED GFR 2021-10-23 09:48:00 Rickey Diallo [facility] Eric POC GLUCOSE 2021-10-23 01:04:00 Al-Lahiq, [facility] POC GLUCOSE 2021-10-22 22:07:00 [facility], [facility] POC GLUCOSE 2021-10-22 21:27:00 [facility], [facility] POC GLUCOSE 2021-10-22 17:00:00 [facility], [facility] XR CHEST 1 VW PORTABLE 2021-10-22 [facility]-10-22 11:12:00 Al-Lahiq, [facility] POC GLUCOSE 2021-10-22 01:14:00 Al-Lahiq, [facility] POC GLUCOSE 2021-10-21 16:47:00 Al-Lahiq, [facility] HEMODIALYSIS 2021-10-21 15:37:08 Rickey Diallo [facility] Eric XR CHEST 1 VW PORTABLE 2021-10-21 11:17:[facility] 2021-10-21 10:35:00 [id number] TACROLIMUS LEV[facility], 2021-10-21 10:35:00 [facility] 2021-10-21 10:35:00 Rickey Diallo [facility] Eric POC GLUCOSE 2021-10-21 10:28:00 Al-Lahiq, [facility] POC GLUCOSE 2021-10-21 01:17:00 Al-Lahiq, [facility] XR CHEST 1 VW PORTABLE 2021-10-20 22:44:00 [facility] 2021-10-20 21:45:00 [facility] POC GLUCOSE 2021-10-20 16:33:00 [facility], [facility] XR CHEST 1 VW PORTABLE 2021-10-20 13:15:[facility]EL 2021-10-20 10:40:00 [facility] ESTIMATED GFR 2021-10-20 10:40:00 Rickey Diallo [facility]ital Eric POC GLUCOSE 2021-10-20 10:04:00 Al[facility], [facility] POC GLUCOSE 2021-10-20 00:56:00 Al-L[facility], [facility] POC GLUCOSE 2021-10-19 23:32:00 Al-L[facility], [facility] POC GLUCOSE 2021-10-19 16:47:00 Al-Lahiq, [facility] HEMODIALYSIS 2021-10-19 15:27:26 Rickey Diallo [facility] Eric XR CHEST 1 VW PORTABLE 2021-10-19 10:46:[address] [facility] POC GLUCOSE 2021-10-19 10:36:00 Al-Lahiq, [facility] POC GLUCOSE 2021-10-19 01:10:00 Al-Lahiq, [facility] POC GLUCOSE 2021-10-18 21:40:00 Al-Lahiq, [facility] XR CHEST 1 VW PORTABLE 2021-10-18 17:35:[address] [facility] POC GLUCOSE 2021-10-18 16:17:00 Al-Lahiq, [facility] POC GLUCOSE 2021-10-18 10:55:00 Al-Lahiq, [facility] XR CHEST 1 VW PORTABLE 2021-10-18 10:38:[address] [facility] POC GLUCOSE 2021-10-18 00:23:00 Al-Lahiq, [facility] POC GLUCOSE 2021-10-17 22:03:00 Al-Lahiq, [facility] US DUPLEX VENOUS UPPER 2021-10-17 20:00:00 Al-Lahiq, [facility] EXTREMITY RIGHT POC GLUCOSE 2021-10-17 16:31:00 Al-Lahiq, [facility] XR CHEST 1 VW PORTABLE 2021-10-17 13:10:[address] [facility] POC GLUCOSE 2021-10-17 11:05:00 Al-Lahiq, [facility] POC GLUCOSE 2021-10-17 03:24:00 Al-Lahiq, [facility] POC GLUCOSE 2021-10-17 02:53:00 Al-Lahiq, [facility] POC GLUCOSE 2021-10-17 02:17:00 Al-LahiqJoceline Ho spital POC GLUCOSE 2021-10-16 21:01:00 Al-LahiqJoceline Ho spital POC GLUCOSE 2021-10-16 19:25:00 Al-LahiqJoceline Ho spital HEMODIALYSIS 2021-10-16 17:25:53 Rickey Diallo Ho spital Eric POC GLUCOSE 2021-10-16 17:11:00 Al-LahiqJoceline Ho spital XR CHEST 1 VW PORTABLE 2021-10-16 13:25:[address] [facility] POC GLUCOSE 2021-10-16 10:08:00 Al-LahiqJoceline Ho spital HC COMPLETE BLD COUNT 2021-10-16 10:01:00 [facility] W/AUTO DIFF IONIZED CALCIUM 2021-10-16 10:01:00 [facility] MAGNESIUM LEVEL 2021-10-16 10:01:00 [facility] PHOSPHORUS LEVEL 2021-10-16 10:01:00 [facility] COMPREHENSIVE METABOLIC 2021-10-16 10:01:00 [facility] Eric ESTIMATED GFR 2021-10-16 10:01:00 Rickey Diallo spital Eric POC GLUCOSE 2021-10-16 01:00:00 Al-LahiqJoceline Ho spital POC GLUCOSE 2021-10-15 21:29:00 Al-LahiqJoceline Ho spital CHEST TUBE INSERTION 2021-10-15 19:29:15 [facility]ST 1 VW PORTABLE 2021-10-15 19:28:[address] [facility] XR CHEST 1 VW PORTABLE 2021-10-15 17:53[facility] ABDOMEN 1 VW 2021-10-15 17:35:00 Souleymane Sears [facility] Ali POC GLUCOSE 2021-10-15 16:48:00 Al-LaagnesqJoceline Ho spital POC GLUCOSE 2021-10-15 09:59:00 Al-Lahiq, Joceline Mcghee [facility] BASIC METABOLIC PANEL 2021-10-15 09:57:00 [facility] Micu Met [facility] HC COMPLETE BLD COUNT 2021-10-15 09:57:00 BoalmaKrysiza Micu Met [facility] W/AUTO DIFF IONIZED CALCIUM 2021-10-15 09:57:00 [facility] MAGNESIUM LEVEL 2021-10-15 09:57:00 [facility] PHOSPHORUS LEVEL 2021-10-15 09:57:00 [facility] ESTIMATED GFR 2021-10-15 09:57:00 [facility] POC GLUCOSE 2021-10-15 08:54:00 Al-LahiqJoceline Ho spital POC GLUCOSE 2021-10-15 00:55:00 Al-Lahiq, [facility] POC GLUCOSE 2021-10-14 21:03:00 Al-Lahiq, [facility] TROPONIN T 2021-10-14 20:21:00 Rosa M Palm H ospital POC GLUCOSE 2021-10-14 16:55:00 Al-Lahiq, Joceline Mcghee [facility] TROPONIN T 2021-10-14 16:41:00 Rosa M Plam H ospital ECG 12-LEAD 2021-10-14 16:26:41 Jorge Luis [facility] Yasser HEMODIALYSIS 2021-10-14 13:31:52 Rickey Diallo Ho spital Eric POC GLUCOSE 2021-10-14 12:57:00 Al-Lahiq, Joceline Mcghee [facility] BASIC METABOLIC PANEL 2021-10-14 06:25:00 Terry Krysmalaroshni Aamiru [facility] HC COMPLETE BLD COUNT 2021-10-14 06:25:00 BoKrys marqueza Micu Met [facility] W/AUTO DIFF IONIZED CALCIUM 2021-10-14 06:25:00 Terry [facility] MAGNESIUM LEVEL 2021-10-14 06:25:00 [facility] PHOSPHORUS LEVEL 2021-10-14 06:25:00 [facility] ESTIMATED GFR 2021-10-14 06:25:00 [facility] POC GLUCOSE 2021-10-14 01:03:00 AlShaneqJoceline Ho spital POC GLUCOSE 2021-10-13 21:40:00 Al-LahiqJoceline Ho spital HEMODIALYSIS 2021-10-13 21:08:11 [facility] Soule[facility]ane [facility] Ali POC GLUCOSE 2021-10-13 16:19:00 Al-Joceline Sloan Ho spital POC GLUCOSE 2021-10-13 12:51:00 Al-Joceline Sloan Ho spital HC COMPLETE BLD COUNT 2021-10-13 11:15:00 [facility] W/AUTO DIFF BASIC METABOLIC PANEL 2021-10-13 11:15:00 [facility] MAGNESIUM LEVEL 2021-10-13 11:15:00 [facility] IONIZED CALCIUM 2021-10-13 11:15:00 [facility] PHOSPHORUS LEVEL 2021-10-13 11:15:00 [facility] ESTIMATED GFR 2021-10-13 11:15:00 [facility] POC GLUCOSE 2021-10-13 04:16:00 Al-Joceline Sloan spital HC COMPLETE BLD COUNT 2021-10-13 03:48:00 Boado, [facility] W/AUTO DIFF BASIC METABOLIC PANEL 2021-10-13 03:48:00 ado, Glaiza [facility] MAGNESIUM LEVEL 2021-10-13 03:48:00 [facility] IONIZED CALCIUM 2021-10-13 03:48:00 [facility] PHOSPHORUS LEVEL 2021-10-13 03:48:00 [facility] ESTIMATED GFR 2021-10-13 03:48:00 [facility] ECG 12-LEAD 2021-10-13 02:30:52 Jorge Luis [facility] Yasser POC GLUCOSE 2021-10-13 01:54:00 Joceline Barton spital POC GLUCOSE 2021-10-13 01:52:00 Joceline Barton [place] < 1 HOUR 2021-10-13 00:45:00 Az Guerrero H ospital Manolo INSERTION, CATHETER, 2021-10-12 23:42:00 Az Guerrero [facility] DIALYSIS, PERITONEAL, Manolo LAPAROSCOPIC LAPAROSCOPIC PERITONEAL 2021-10-12 23:42:00 YolandaAz [facility] RESECTION Manolo POC GLUCOSE 2021-10-12 21:37:00 Joceline Barton spiclemente TYPE AND SCREEN 2021-10-12 20:38:00 [facility] Manolo HEPATITIS B SURFACE AB, 2021-10-12 17:50:00 Parveenellanadia [facility] QUANTITATIVE Ali POTASSIUM LEVEL 2021-10-12 17:50:00 Brijesh Jorge ospital Fortunato HEPATITIS B SURFACE 2021-10-12 17:24:00 [facility] ANTIBODY Eric HEPATITIS B SURFACE 2021-10-12 17:24:00 [facility] ANTIGEN Eric HEPATITIS B CORE ANTIBODY 2021-10-12 17:24:00 [facility] TOTAL Eric POC GLUCOSE 2021-10-12 16:12:00 Joceline Barton IN AN ELECTIVE 2021-10-12 11:55:00 Jhon Wesley spital ENDOTRACHEAL AIRWAY POC GLUCOSE 2021-10-12 11:01:00 Joceline Barton spital POC GLUCOSE 2021-10-12 00:43:00 Al-Lahiq, [facility] POC GLUCOSE 2021-10-11 21:35:00 [facility] POC GLUCOSE 2021-10-11 16:11:00 [facility]iq, [facility] POC GLUCOSE 2021-10-11 10:13:00 [facility], [facility] POC GLUCOSE 2021-10-11 05:17:00 [facility], [facility] POC GLUCOSE 2021-10-11 01:44:00 [facility]iq, [facility] POC GLUCOSE 2021-10-10 22:06:00 Al-Lahiq, [facility]Syn[facility] TTE COMPLETE, WO CONTRAST, 2021-10-10 21:03:00 [facility] W DOPPLER ([id number]) POC GLUCOSE 2021-10-10 17:12:00 Al-Lahiq, [facility] POC GLUCOSE 2021-10-10 14:19:00 Al-Lahiq, [facility] [id number] TACROLIMUS LEVEL, 2021-10-10 10:35:00 Al-Lahiq, [facility] TROUGH BASIC METABOLIC PANEL 2021-10-10 10:35:00 Al-Lahiq, [facility] IRON LEVEL 2021-10-10 10:35:00 Rickey [facility]lo [facility] Eric FERRITIN LEVEL 2021-10-10 10:35:00 Rickey Diallo spital Eric RENAL FUNCTION PANEL 2021-10-10 10:35:00 [facility] Eric ESTIMATED GFR 2021-10-10 10:35:00 Rickey Diallo spital Eric POC GLUCOSE 2021-10-10 10:25:00 Al-Lahiq, [facility] POC GLUCOSE 2021-10-10 05:05:00 Al-Lahiq, [facility] POC GLUCOSE 2021-10-10 04:13:00 Al-Lahiq, [facility] spital COVID-19 ANTI-SPIKE IGG 2021-10-10 04:07:00 Al-Lahiq, [facility] ANTIBODY TITER COVID-19 SEROLOGY PATIENT 2021-10-10 04:07:00 [facility] SURVEILLANCE POC GLUCOSE 2021-10-10 02:54:00 Joceline Barton Ho spital POC GLUCOSE 2021-10-10 02:40:00 [facility] Michaud spital TROPONIN T 2021-10-09 23:39:00 Chacha Mishra spital LACTIC ACID LEVEL, SEPSIS 2021-10-09 23:39:[address] [facility] [place] [place] - NOW AND REPEAT 2X EVERY 3 HOURS POC GLUCOSE 2021-10-09 22:41:00 Joceline Barton spital TROPONIN T 2021-10-09 20:24:00 Chacha Mishra spital LACTIC ACID LEVEL, SEPSIS 2021-10-09 20:24:00 Chacha Mishra [facility] - NOW AND REPEAT 2X EVERY 3 HOURS COVID-19 QUALITATIVE 2021-10-09 19:24:00 [facility]-PCR URINALYSIS SCREEN AND 2021-10-09 19:23:00 [facility], WITH REFLEX TO CULTURE URINE CULTURE 2021-10-09 18:44:00 Chacha Mishra spital XR CHEST 1 VW PORTABLE 2021-10-09 17:00:[address] [facility] HC COMPLETE BLD COUNT 2021-10-09 16:56:00 Chacha Mishra [facility] W/AUTO DIFF COMPREHENSIVE METABOLIC 2021-10-09 16:56:00 [facility] PANEL PHOSPHORUS LEVEL 2021-10-09 16:56:00 Chacha Mishra H ospital MAGNESIUM LEVEL 2021-10-09 16:56:00 Chacha Mishra spital TROPONIN T 2021-10-09 16:56:00 Chacha Mishra spital B NATRIURETIC PEPTIDE 2021-10-09 16:56:00 [facility] LACTIC ACID LEVEL, SEPSIS 2021-10-09 16:56:00 Chacha [facility] - NOW AND REPEAT 2X EVERY 3 HOURS ESTIMATED GFR 2021-10-09 16:56:00 [facility] ED PRELIMINARY 2021-10-09 16:45:52 Chacha Mishra [facility] INTERPRETATION ECG 12-LEAD 2021-10-09 16:39:19 Chacha Mishra spital CBC WITH PLATELET AND 2021-09-23 17:01:00 [facility] DIFFERENTIAL COMPREHENSIVE METABOLIC 2021-09-23 17:01:00 [facility] PANEL HEMOGLOBIN A1C 2021-09-23 17:01:00 [facility] VITAMIN D 25 HYDROXY LEVEL 2021-09-23 17:01:00 [facility] MICROALBUMIN / CREATININE 2021-09-23 17:01:00 [facility] URINE RATIO LIPID PANEL 2021-09-23 17:01:00 [facility] T4, FREE 2021-09-23 17:01:00 [facility] THYROID STIMULATING 2021-09-23 17:01:[address] [facility] HORMONE AMYLASE LEVEL 2021-09-23 17:01:00 [facility] LIPASE LEVEL 2021-09-23 17:01:00 [facility] POC GLUCOSE 2021-08-29 17:24:00 Magnolia Gonzalez [facility] BASIC METABOLIC PANEL 2021-08-29 12:26:00 Rickey Diallo [facility] Eric HC COMPLETE BLD COUNT 2021-08-29 12:26:00 Magnolia Gonzalez [facility] W/AUTO DIFF ESTIMATED GFR 2021-08-29 12:26:00 Rickey Diallo [facility] Eric POC GLUCOSE 2021-08-29 11:35:[address] [facility] POC GLUCOSE 2021-08-29 02:49:[address] [facility] POC GLUCOSE 2021-08-29 02:18:[address] [facility] POC GLUCOSE 2021-08-28 22:16:00 [facility] [place] [facility]SE 2021-08-28 17:32:00 [facility] [place] X[facility] CHEST 1 VW PORTABLE 2021-08-28 12:54:57 [facility] POC [facility]UCOSE 2021-08-28 12:27:00 [facility] [place] BASIC METABOLIC PANEL 2021-08-28 11:41:00 [facility] Eric HC COMPLETE BLD COUNT 2021-08-28 11:41:00 Carlos [facility] W/AUTO DIFF ESTIMATED GFR 2021-08-28 11:41:00 [facility] spital Eric POC GLUCOSE 2021-08-28 02:22:00 [facility] [place] POC GLUCOSE 2021-08-27 22:07:00 [facility] POC GLUCOSE 2021-08-27 16:58:00 [facility] [place] POC GLUCOSE 2021-08-27 12:17:00 Kayce Parks spital COVID-19 SEROLOGY PATIENT 2021-08-27 12:09:[facility] BASIC METABOLIC PANEL 2021-08-27 12:09:[address] [facility] HC COMPLETE BLD COUNT 2021-08-27 12:09:00 [facility] W/AUTO DIFF [id number] TACROLIMUS LEVEL, 2021-08-27 12:09:00 [facility] Eric ESTIMATED GFR 2021-08-27 12:09:00 [facility] COVID-19 ANTI-SPIKE IGG 2021-08-27 12:09:00 [facility] ANTIBODY TITER Alex POC GLUCOSE 2021-08-27 01:47:00 Reynaldo Navarrete Ho spital POC GLUCOSE 2021-08-26 23:16:00 Kayce Parks Ho spital [id number] TACROLIMUS LEVEL, 2021-08-26 19:38:00 Cookie [facility] RANDOM COVID-19 QUALITATIVE 2021-08-26 19:38:00 Chacha Mishra [facility] RT-PCR POC GLUCOSE 2021-08-26 17:32:00 Reynaldo Navarrete Ho spital POC GLUCOSE 2021-08-26 14:45:00 Ellen Angulo spital LACTIC ACID LEVEL, SEPSIS 2021-08-26 10:08:[address] [facility] [place] [place] - NOW AND REPEAT 2X EVERY 3 HOURS COMPREHENSIVE METABOLIC 2021-08-26 10:08:00 Kayce Parks [facility] PANEL HC COMPLETE BLD COUNT 2021-08-26 10:08:00 [facility] W/[facility]O DIFF Latrondria Sanam ESTIMATED GFR 2021-08-26 10:08:00 Kayce Parks spital URINALYSIS SCREEN AND 2021-08-26 05:25:00 [facility] MICROSCOPY, WITH REFLEX TO CULTURE COMPREHENSIVE METABOLIC 2021-08-26 04:50:00 Kayce Parks [facility] PANEL ESTIMATED GFR 2021-08-26 04:50:00 Kayce Parks spital HC COMPLETE BLD COUNT 2021-08-26 03:52:00 Chacha Mishra [facility] W/AUTO DIFF LACTIC ACID LEVEL, SEPSIS 2021-08-26 03:52:00 Chacha Mishra [facility] - NOW AND REPEAT 2X EVERY 3 HOURS MAGNESIUM LEVEL 2021-08-26 03:52:00 Chacha Mishra spital PHOSPHORUS LEVEL 2021-08-26 03:52:00 Chacha Mishra ospital BLOOD CULTURE, AEROBIC & 2021-08-26 03:50:00 Chacha Mishra [facility] ANAEROBIC XR CHEST 2 VW 2021-08-26 02:36:00 Chacha Mishra spital URINE CULTURE 2021-08-26 02:18:[address] ABDOMEN PELVIS WO 2021-08-26 01:58:43 Chacha Mishra [facility] CONTRAST URINE CULTURE 2021-07-06 16:41:00 [facility] Ali HC COMPLETE BLD COUNT 2021-07-06 14:40:00 [facility] W/AUTO DIFF Ali COMPREHENSIVE METABOLIC 2021-07-06 14:40:00 [facility] PANEL Ali MAGNESIUM LEVEL 2021-07-06 14:40:00 [facility] Ali PHOSPHORUS LEVEL 2021-07-06 14:40:00 [facility] Ali URINALYSIS SCREEN AND 2021-07-06 14:40:00 [facility] MICROSCOPY, WITH REFLEX TO Ali CULTURE BK VIRUS BY PCR 2021-07-06 14:40:00 [facility] Ali PROTEIN, URINE, RANDOM 2021-07-06 14:40:00 [facility] Ali CREATININE LEVEL, URINE, 2021-07-06 14:40:00 [facility] RANDOM Ali PARATHYROID HORMONE 2021-07-06 14:40:00 [facility] Ali CYTOMEGALOVIRUS BY PCR 2021-07-06 14:40:00 [facility] Ali VITAMIN D 25 HYDROXY LEVEL 2021-07-06 14:40:00 [facility] Ali [id number] TACROLIMUS LEVEL, 2021-07-06 14:40:00 [facility] RANDOM Ali PROTHROMBIN TIME WITH INR 2021-07-06 14:40:00 [facility] Ali ESTIMATED GFR 2021-07-06 14:40:00 [facility] Ali DONOR SPECIFIC ANTIBODY 2021-07-06 14:40:00 [facility] Ali CRYPTOCOCCAL ANTIGEN 2021-07-06 14:40:00 [facility] SCREEN Ali HC COMPLETE BLD COUNT 2021-04-07 12:55:00 [facility] W/AUTO DIFF Ali COMPREHENSIVE METABOLIC 2021-04-07 12:55:00 [facility] PANEL Ali CREATININE LEVEL, URINE, 2021-04-07 12:55:00 [facility] RANDOM Ali [id number] TACROLIMUS LEVEL, 2021-04-07 12:55:00 [facility] RANDOM Ali MAGNESIUM LEVEL 2021-04-07 12:55:00 [facility] Ali PHOSPHORUS LEVEL 2021-04-07 12:55:00 [facility] Ali PROTEIN, URINE, RANDOM 2021-04-07 12:55:00 [facility] Ali URINALYSIS SCREEN AND 2021-04-07 12:55:00 [facility] MICROSCOPY, WITH REFLEX TO Ali CULTURE BK VIRUS BY PCR 2021-04-07 12:55:00 [facility] Ali CYTOMEGALOVIRUS BY PCR 2021-04-07 12:55:00 [facility] Ali ESTIMATED GFR 2021-04-07 12:55:00 [facility] Ali CRYPTOCOCCAL ANTIGEN 2021-04-07 12:55:00 [facility] SCREEN Ali URINE CULTURE 2021-04-07 12:55:00 [facility] Ali HC COMPLETE BLD COUNT 2021-02-16 14:55:00 [facility] W/AUTO DIFF Ali COMPREHENSIVE METABOLIC 2021-02-16 14:55:00 [facility] PANEL Ali CREATININE LEVEL, URINE, 2021-02-16 14:55:00 [facility] RANDOM Ali [id number] TACROLIMUS LEVEL, 2021-02-16 14:55:00 [facility] RANDOM Ali MAGNESIUM LEVEL 2021-02-16 14:55:00 [facility] Ali PHOSPHORUS LEVEL 2021-02-16 14:55:00 [facility] Ali PROTEIN, URINE, RANDOM 2021-02-16 14:55:00 [facility] Ali URINALYSIS SCREEN AND 2021-02-16 14:55:00 [facility] MICROSCOPY, WITH REFLEX TO Ali CULTURE BK VIRUS BY PCR 2021-02-16 14:55:00 [facility] Ali CYTOMEGALOVIRUS BY PCR 2021-02-16 14:55:00 [facility] Ali PARATHYROID HORMONE 2021-02-16 14:55:[address] [facility] HEMOGLOBIN A1C 2021-02-16 14:55:00 [facility] LIPID PANEL 2021-02-16 14:55:00 [facility] VITAMIN D 25 HYDROXY LEVEL 2021-02-16 14:55:00 [facility] T4, FREE 2021-02-16 14:55:00 [facility] THYROID STIMULATING 2021-02-16 14:55:[address] [facility] HORMONE ESTIMATED GFR 2021-02-16 14:55:00 [facility] CRYPTOCOCCAL ANTIGEN 2021-02-16 14:55:00 [facility] SCREEN Ali URINE CULTURE 2021-02-16 14:55:00 [facility] Ali POC GLUCOSE 2021-01-27 17:31:00 Sharifa Hansen spital POC GLUCOSE 2021-01-27 17:10:00 Sharifa Hansen spital POC GLUCOSE 2021-01-27 16:46:00 Sharifa Hansen spital POC GLUCOSE 2021-01-27 16:06:00 Sharifa Hansen spital LIGATION OR BANDING, 2021-01-27 15:49:00 [facility] POC GLUCOSE 2021-01-27 15:44:00 Sharifa Hansen spital IN AN PERIPHERAL BLOCK 2021-01-27 15:35:00 Paola Lobato [facility] PROCEDURE FOR PAIN E. POC GLUCOSE 2021-01-27 13:55:00 Sharifa Hansen spital POC PANEL 2021-01-27 12:59:00 Sharifa Hansen spital POC PANEL 2021-01-27 12:55:00 Sharifa Hansen spital POC GLUCOSE 2021-01-27 12:38:00 Sharifa Hansen spital TTE COMPLETE, WO CONTRAST, 2021-01-22 21:12:11 Jus Martínez [facility] W DOPPLER ([id number]) Penelope COVID-19 QUALITATIVE 2021-01-21 19:35:00 Sharifa Hansen [facility] RT-PCR US DUPLEX HEMODIALYSIS AVG 2021-01-21 18:12:44 Sandra Cervantes [facility] AVF ACCESS BONE DENSITY 2021-01-19 16:17:47 [facility] HC COMPLETE BLD COUNT 2021-01-19 12:55:00 [facility] W/AUTO DIFF Ali COMPREHENSIVE METABOLIC 2021-01-19 12:55:00 [facility] PANEL Ali CREATININE LEVEL, URINE, 2021-01-19 12:55:00 [facility] RANDOM Ali [id number] TACROLIMUS LEVEL, 2021-01-19 12:55:00 [facility] RANDOM Ali MAGNESIUM LEVEL 2021-01-19 12:55:00 [facility] Ali PHOSPHORUS LEVEL 2021-01-19 12:55:00 [facility] Ali PROTEIN, URINE, RANDOM 2021-01-19 12:55:00 [facility] URINALYSIS SCREEN AND 2021-01-19 12:55:00 [facility] MICROSCOPY, WITH REFLEX TO Ali CULTURE BK VIRUS BY PCR 2021-01-19 12:55:00 [facility] CYTOMEGALOVIRUS BY PCR 2021-01-19 12:55:00 [facility] THYROID STIMULATING 2021-01-19 12:55:[address] [facility] HORMONE T4, FREE 2021-01-19 12:55:00 [facility] HEMOGLOBIN A1C 2021-01-19 12:55:00 [facility] PARATHYROID HORMONE 2021-01-19 12:55:00 [facility] LIPID PANEL 2021-01-19 12:55:00 [facility] VITAMIN D 25 HYDROXY LEVEL 2021-01-19 12:55:00 [facility] Ali PROTHROMBIN TIME WITH INR 2021-01-19 12:55:00 [facility] Ali ESTIMATED GFR 2021-01-19 12:55:00 [facility] Ali DONOR SPECIFIC ANTIBODY 2021-01-19 12:55:00 [facility] Ali CRYPTOCOCCAL ANTIGEN 2021-01-19 12:55:00 [facility] SCREEN Ali URINE CULTURE 2021-01-19 12:55:00 [facility] Ali HC COMPLETE BLD COUNT 2020-12-24 12:45:00 [facility] W/AUTO DIFF Ali ESTIMATED GFR 2020-12-24 12:45:00 [facility] AMYLASE LEVEL 2020-12-24 12:45:00 [facility] LIPASE LEVEL 2020-12-24 12:45:00 [facility] T4, FREE 2020-12-24 12:45:00 [facility] VITAMIN D 25 HYDROXY LEVEL 2020-12-24 12:45:00 [facility] THYROID STIMULATING 2020-12-24 12:45:[address] [facility] HORMONE PARATHYROID HORMONE 2020-12-24 12:45:[address] [facility] CRYPTOCOCCAL ANTIGEN 2020-12-24 12:45:00 [facility] SCREEN Ali URINE CULTURE 2020-12-24 12:45:00 [facility] CYTOMEGALOVIRUS BY PCR 2020-12-24 12:45:00 [facility] HEMOGLOBIN A1C 2020-12-24 12:45:00 [facility] [facility] Ali BK VIRUS BY PCR 2020-12-24 12:45:00 [facility] Ali URINALYSIS SCREEN AND 2020-12-24 12:45:00 [facility] MICROSCOPY, WITH REFLEX TO Ali CULTURE PROTEIN, URINE, RANDOM 2020-12-24 12:45:00 [facility] Ali PHOSPHORUS LEVEL 2020-12-24 12:45:00 [facility] Ali MAGNESIUM LEVEL 2020-12-24 12:45:00 [facility] Ali [id number] TACROLIMUS LEVEL, 2020-12-24 12:45:00 [facility] RANDOM Ali CREATININE LEVEL, URINE, 2020-12-24 12:45:00 [facility] RANDOM Ali COMPREHENSIVE METABOLIC 2020-12-24 12:45:00 [facility] PANEL Ali CRYPTOCOCCAL ANTIGEN 2020-11-24 12:12:00 [facility] SCREEN Ali URINE CULTURE 2020-11-24 12:12:00 [facility] Ali HC COMPLETE BLD COUNT 2020-11-24 12:12:00 [facility] W/AUTO DIFF Ali COMPREHENSIVE METABOLIC 2020-11-24 12:12:00 [facility] PANEL Ali CREATININE LEVEL, URINE, 2020-11-24 12:12:00 [facility] RANDOM Ali [id number] TACROLIMUS LEVEL, 2020-11-24 12:12:00 [facility] RANDOM Ali MAGNESIUM LEVEL 2020-11-24 12:12:00 [facility] Ali PHOSPHORUS LEVEL 2020-11-24 12:12:00 [facility] Ali PROTEIN, URINE, RANDOM 2020-11-24 12:12:00 [facility] Ali URINALYSIS SCREEN AND 2020-11-24 12:12:00 [facility] MICROSCOPY, WITH REFLEX TO Ali CULTURE BK VIRUS BY PCR 2020-11-24 12:12:00 [facility] Ali CYTOMEGALOVIRUS BY PCR 2020-11-24 12:12:00 [facility] Ali ESTIMATED GFR 2020-11-24 12:12:00 [facility] Ali HC COMPLETE BLD COUNT 2020-11-10 14:14:00 [facility] W/AUTO DIFF Ali COMPREHENSIVE METABOLIC 2020-11-10 14:14:00 [facility] PANEL Ali CREATININE LEVEL, URINE, 2020-11-10 14:14:00 [facility] RANDOM Ali [id number] TACROLIMUS LEVEL, 2020-11-10 14:14:00 [facility] RANDOM Ali MAGNESIUM LEVEL 2020-11-10 14:14:00 [facility] Ali PHOSPHORUS LEVEL 2020-11-10 14:14:00 [facility] Ali PROTEIN, URINE, RANDOM 2020-11-10 14:14:00 [facility] Ali URINALYSIS SCREEN AND 2020-11-10 14:14:00 [facility] MICROSCOPY, WITH REFLEX TO Ali CULTURE BK VIRUS BY PCR 2020-11-10 14:14:00 [facility] Ali CYTOMEGALOVIRUS BY PCR 2020-11-10 14:14:00 [facility] Ali ESTIMATED GFR 2020-11-10 14:14:00 [facility] Ali URINE CULTURE 2020-11-10 13:00:00 [facility] Ali URINE CULTURE 2020-10-27 15:40:00 [facility] Ali CRYPTOCOCCAL ANTIGEN 2020-10-27 12:55:00 [facility] SCREEN Ali CYTOMEGALOVIRUS BY PCR 2020-10-27 12:55:00 [facility] Ali BK VIRUS BY PCR 2020-10-27 12:55:00 [facility] Ali URINALYSIS SCREEN AND 2020-10-27 12:55:00 [facility] MICROSCOPY, WITH REFLEX TO Ali CULTURE PROTEIN, URINE, RANDOM 2020-10-27 12:55:00 [facility] Ali PHOSPHORUS LEVEL 2020-10-27 12:55:00 [facility] Ali MAGNESIUM LEVEL 2020-10-27 12:55:00 [facility] Ali [id number] TACROLIMUS LEVEL, 2020-10-27 12:55:00 [facility] RANDOM Ali CREATININE LEVEL, URINE, 2020-10-27 12:55:00 [facility] RANDOM Ali AMYLASE LEVEL 2020-10-27 12:55:00 [facility] HC COMPLETE BLD COUNT 2020-10-27 12:55:00 [facility] W/AUTO DIFF COMPREHENSIVE METABOLIC 2020-10-27 12:55:00 [facility] PANEL HEMOGLOBIN A1C 2020-10-27 12:55:00 [facility] LIPASE LEVEL 2020-10-27 12:55:00 [facility] T4, FREE 2020-10-27 12:55:00 [facility] THYROID STIMULATING 2020-10-27 12:55:[address] [facility] HORMONE VITAMIN D 25 HYDROXY LEVEL 2020-10-27 12:55:00 [facility] PARATHYROID HORMONE 2020-10-27 12:55:[address] [facility] ESTIMATED GFR 2020-10-27 12:55:00 [facility] URINE CULTURE 2020-10-13 13:29:00 Maya Stark BASIC METABOLIC PANEL 2020-10-13 12:12:00 [facility] Sonu URINALYSIS SCREEN AND 2020-10-13 12:12:00 [facility] MICROSCOPY, WITH REFLEX TO Sonu CULTURE ESTIMATED GFR 2020-10-13 12:12:00 Maya Stark CREATININE LEVEL, URINE, 2020-10-13 12:12:00 [facility] RANDOM Ali PROTEIN, URINE, RANDOM 2020-10-13 12:12:00 [facility] Terrence HEPATIC FUNCTION PANEL 2020-10-13 12:12:[address] [facility] Sonu URINE CULTURE 2020-09-30 14:40:00 [facility] Ali COMPREHENSIVE METABOLIC 2020-09-30 14:40:00 [facility] PANEL Ali [id number] TACROLIMUS LEVEL, 2020-09-30 14:40:00 [facility] RANDOM Ali HC COMPLETE BLD COUNT 2020-09-30 14:40:00 [facility] W/AUTO DIFF Ali MAGNESIUM LEVEL 2020-09-30 14:40:00 [facility] Ali PHOSPHORUS LEVEL 2020-09-30 14:40:00 [facility] Ali PROTEIN, URINE, RANDOM 2020-09-30 14:40:00 [facility] Ali CREATININE LEVEL, URINE, 2020-09-30 14:40:00 [facility] RANDOM Ali URINALYSIS SCREEN AND 2020-09-30 14:40:00 [facility] MICROSCOPY, WITH REFLEX TO Ali CULTURE ESTIMATED GFR 2020-09-30 14:40:00 [facility] Ali POC GLUCOSE 2020-09-24 17:32:00 Ritesh [facility] spital POC GLUCOSE 2020-09-24 13:38:00 [facility] spital POC GLUCOSE 2020-09-24 12:17:00 [facility] spital [id number] TACROLIMUS LEVEL, 2020-09-24 12:00:[address] [facility] RANDOM HC COMPLETE BLD COUNT 2020-09-24 12:00:00 [facility] W/AUTO DIFF SMEAR REVIEW 2020-09-24 12:00:00 [facility] Ho spital BASIC METABOLIC PANEL 2020-09-24 10:00:00 [facility] ESTIMATED GFR 2020-09-24 10:00:00 [facility] spital POC GLUCOSE 2020-09-24 03:05:00 [facility] Ho spital POC GLUCOSE 2020-09-23 23:10:00 [facility] Ho spital POC GLUCOSE 2020-09-23 17:31:00 Fan, Ana Laura Mcghee spital POC GLUCOSE 2020-09-23 13:03:00 Fan, [facility] spital [id number] TACROLIMUS LEVEL, 2020-09-23 11:24:00 Fan, [facility] RANDOM B NATRIURETIC PEPTIDE 2020-09-23 11:24:00 Fan, [facility] PARATHYROID HORMONE 2020-09-23 11:24:00 Fan, [facility] BASIC METABOLIC PANEL 2020-09-23 10:00:00 Fan, [facility] ESTIMATED GFR 2020-09-23 10:00:00 Fan, [facility] Ho spital POC GLUCOSE 2020-09-23 03:12:00 Fan, [facility] 2020-09-23 02:30:45 [facility] POC GLUCOSE 2020-09-22 23:40:00 Fan, [facility] Ho spital BASIC METABOLIC PANEL 2020-09-22 21:08:00 Fan, [facility] HC COMPLETE BLD COUNT 2020-09-22 21:08:00 Fan, [facility] W/AUTO DIFF ESTIMATED GFR 2020-09-22 21:08:00 Fan, Ana Laura Mcghee spital POC GLUCOSE 2020-09-22 17:41:00 Fan, Ana Laura Mcghee spital POC GLUCOSE 2020-09-22 14:09:00 Fan, Ana Laura Mcghee spital [id number] TACROLIMUS LEVEL, 2020-09-22 11:39:00 Fan, [facility] RANDOM POC GLUCOSE 2020-09-22 03:09:00 Fan, Ana Laura Mcghee spital POC GLUCOSE 2020-09-21 23:11:00 Fan, [facility] POC GLUCOSE 2020-09-21 18:37:00 Fan, [facility] Ho spital POC GLUCOSE 2020-09-21 14:16:00 Fan, Ana Laura Mcghee spital [id number] TACROLIMUS LEVEL, 2020-09-21 11:42:00 Fan, [facility] RANDOM POC GLUCOSE 2020-09-21 03:07:00 Fan, [facility] Ho spital POC GLUCOSE 2020-09-20 23:47:00 Fan, [facility] [facility] sp[facility] POC GLUCOSE 2020-09-20 17:44:00 Fan, [facility] POC GLUCOSE 2020-09-20 14:52:00 Fan, [facility] POC GLUCOSE 2020-09-20 13:27:00 Fan, [facility] spital [id number] TACROLIMUS LEVEL, 2020-09-20 11:30:00 Fan, [facility] RANDOM POC GLUCOSE 2020-09-20 03:32:00 Fan, [facility] POC GLUCOSE 2020-09-20 03:07:00 Fan, [facility] POC GLUCOSE 2020-09-19 23:19:00 Fan, [facility] POC GLUCOSE 2020-09-19 17:14:00 Fan, [facility] POC GLUCOSE 2020-09-19 13:49:00 Fan, [facility] spital CRYPTOCOCCAL ANTIGEN 2020-09-19 11:00:00 [facility] SCREEN [id number] TACROLIMUS LEVEL, 2020-09-19 11:00[facility]IC METABOLIC PANEL 2020-09-19 11:00:00 Ritesh [facility] ESTIMATED GFR 2020-09-19 11:00:00 Fan, [facility] POC GLUCOSE 2020-09-19 03:07:00 Fan, [facility] POC GLUCOSE 2020-09-18 23:33:00 Fan, [facility]ital CRYPTOCOCCAL ANTIGEN 2020-09-18 21:40:00 [facility] SCREEN POC GLUCOSE 2020-09-18 17:51:00 Fan, [facility] POC GLUCOSE 2020-09-18 14:34:00 Fan, [facility] spital [id number] TACROLIMUS LEVEL, 2020-09-18 12:00:[address] [facility] RANDOM BASIC METABOLIC PANEL 2020-09-18 12:00:00 Ritesh [facility] HC COMPLETE BLD COUNT 2020-09-18 12:00:00 Ritesh [facility] W/AUTO DIFF ESTIMATED GFR 2020-09-18 12:00:00 Fan, [facility] POC GLUCOSE 2020-09-18 03:13:00 Fan, [facility] POC GLUCOSE 2020-09-17 23:24:00 Fan, [facility] spital ECG 12-LEAD 2020-09-17 23:02:11 Inder Bhat [facility] POC GLUCOSE 2020-09-17 17:29:00 Fan, [facility] POC GLUCOSE 2020-09-17 13:31:00 Fan, Ana Laura Mcghee spital [id number] TACROLIMUS LEVEL, 2020-09-17 10:51:00 Chacho Grijalva [facility] RANDOM HC COMPLETE BLD COUNT 2020-09-17 10:51:00 Fan, [facility] W/AUTO DIFF BASIC METABOLIC PANEL 2020-09-17 10:51:00 Fan, [facility] ESTIMATED GFR 2020-09-17 10:51:00 Fan, [facility] spital POC GLUCOSE 2020-09-17 02:41:00 Fan, [facility] POC GLUCOSE 2020-09-16 23:25:00 Fan, [facility] POC GLUCOSE 2020-09-16 18:48:00 Fan, [facility] POC GLUCOSE 2020-09-16 13:44:00 Fan, [facility] spital [id number] TACROLIMUS LEVEL, 2020-09-16 11:45:00 Chacho Grijalva [facility] RANDOM CBC WITH PLATELET AND 2020-09-16 11:45:00 Fan, [facility] DIFFERENTIAL BASIC METABOLIC PANEL 2020-09-16 11:45:00 Fan, [facility] ESTIMATED GFR 2020-09-16 11:45:00 Fan, [facility] MANUAL DIFFERENTIAL 2020-09-16 11:45:00 Fan, [facility] POC GLUCOSE 2020 23:44:00 Fan, [facility] spital ENTERIC BACTERIAL PANEL 2020 23:24:00 Fan, [facility] ENTERIC PARASITIC PANEL 2020 23:24:00 Fan, [facility] ENTERIC VIRAL PANEL 2020 23:24:00 [facility] URINE CULTURE 2020 22:32:00 Chel Gonzalez Ho spital POC GLUCOSE 2020 21:49:00 Fan, [facility] POC GLUCOSE 2020 17:57:00 Fan, [facility] spital URINALYSIS SCREEN AND 2020 17:32:00 Chel Gonzalez [facility] MICROSCOPY, WITH REFLEX TO CULTURE POC GLUCOSE 2020 16:07:00 Fan, [facility] POC GLUCOSE 2020 13:38:00 Fan, [facility] Ho spital [id number] TACROLIMUS LEVEL, 2020 10:46:00 [facility] CBC WITH PLATELET AND 2020 10:46:00 [facility] DIFFERENTIAL MANUAL DIFFERENTIAL 2020 10:46:00 [facility] BASIC METABOLIC PANEL 2020 10:00:00 [facility] ESTIMATED GFR 2020 10:00:00 Fan, [facility] spital POC GLUCOSE 2020 01:28:00 Fan, [facility] spital POC GLUCOSE 2020-09-14 23:23:00 Fan, [facility] spital POC GLUCOSE 2020-09-14 18:14:00 Fan, [facility] spital POC GLUCOSE 2020-09-14 14:58:00 Fan, [facility] spital [id number] TACROLIMUS LEVEL, 2020-09-14 10:08:00 [facility] TROUGH CBC WITH PLATELET AND 2020-09-14 10:08:00 [facility] DIFFERENTIAL MANUAL DIFFERENTIAL 2020-09-14 10:08:00 [facility] BASIC METABOLIC PANEL 2020-09-14 10:00:00 [facility] ESTIMATED GFR 2020-09-14 10:00:00 Fan, [facility] Ho spital POC GLUCOSE 2020-09-14 01:23:00 Fan, [facility] spital POC GLUCOSE 2020-09-14 00:38:00 Fan, [facility] POC GLUCOSE 2020-09-13 18:44:00 Fan, [facility] POC GLUCOSE 2020-09-13 14:18:00 Fan, [facility] spital [id number] TACROLIMUS LEVEL, 2020-09-13 10:40:00 [facility] COMPLETE BLD COUNT 2020-09-13 10:40:00 Fan, [facility] W/AUTO DIFF BASIC METABOLIC PANEL 2020-09-13 10:40:00 Fan, [facility] ESTIMATED GFR 2020-09-13 10:40:00 Fan, [facility] POC GLUCOSE 2020-09-13 02:46:00 Fan, [facility] Ho spital POC GLUCOSE 2020-09-12 23:41:00 Fan, [facility] spital BASIC METABOLIC PANEL 2020-09-12 19:00:00 Fan, [facility] HC COMPLETE BLD COUNT 2020-09-12 19:00:00 Fan, [facility] W/AUTO DIFF ESTIMATED GFR 2020-09-12 19:00:00 Fan, [facility] POC GLUCOSE 2020-09-12 17:47:00 [facility], [facility] POC GLUCOSE 2020-09-12 13:46:00 Fan, [facility] Ho spital [id number] TACROLIMUS LEVEL, 2020-09-12 10:51:00 [facility]SE 2020-09-12 01:29:00 Fan, [place] [facility] POC GLUCOSE 2020-09-12 00:03:00 Fan, [facility] spital POC GLUCOSE 2020-09-11 18:51:00 Fan, [facility] Ho spital POC GLUCOSE 2020-09-11 14:09:00 Fan, [facility] Ho spital [id number] TACROLIMUS LEVEL, 2020-09-11 10:22:00 [facility] CBC WITH PLATELET AND 2020-09-11 10:22:00 Fan, [facility] DIFFERENTIAL BASIC METABOLIC PANEL 2020-09-11 10:22:00 Fan, [facility] ESTIMATED GFR 2020-09-11 10:22:00 Fan, [facility] MANUAL DIFFERENTIAL 2020-09-11 10:22:00 Fan, [facility] POC GLUCOSE 2020-09-11 02:33:00 Fan, [facility] POC GLUCOSE 2020-09-10 22:54:00 Fan, [facility] POC GLUCOSE 2020-09-10 17:59:00 Fan, [facility] POC GLUCOSE 2020-09-10 14:09:00 Fan, [facility] spital [id number] TACROLIMUS LEVEL, 2020-09-10 11:08:00 [facility] TROUGH Wade CBC WITH PLATELET AND 2020-09-10 11:08:00 Fan, [facility] DIFFERENTIAL BASIC METABOLIC PANEL 2020-09-10 11:08:00 Fan, [facility] ESTIMATED GFR 2020-09-10 11:08:00 Fan, [facility] MANUAL DIFFERENTIAL 2020-09-10 11:08:00 Fan, [facility] POC GLUCOSE 2020-09-10 02:29:00 Fan, [facility] POC GLUCOSE 2020-09-09 23:28:00 Fan, [facility] POC GLUCOSE 2020-09-09 18:13:00 Fan, [facility] POC GLUCOSE 2020-09-09 14:13:00 Fan, [facility] spital [id number] TACROLIMUS LEVEL, 2020-09-09 11:15:00 [facility] TROUGH Wade BASIC METABOLIC PANEL 2020-09-09 11:15:00 Fan, [facility] HC COMPLETE BLD COUNT 2020-09-09 11:15:00 Fan, [facility] W/AUTO DIFF ESTIMATED GFR 2020-09-09 11:15:00 Fan, [facility] POC GLUCOSE 2020-09-09 02:57:00 Fan, [facility] POC GLUCOSE 2020-09-08 21:53:00 Fan, [facility] Ho spital COVID-19 QUALITATIVE 2020-09-08 18:22:00 FanAna Laura [facility] RT-PCR POC GLUCOSE 2020-09-08 17:16:00 Fan, Ana Laura [facility] spital [id number] TACROLIMUS LEVEL, 2020-09-08 14:43:00 [facility] BASIC METABOLIC PANEL 2020-09-08 14:43:00 Fan [facility] HC COMPLETE BLD COUNT 2020-09-08 14:43:00 Fan [facility] W/AUTO DIFF OSMOLALITY, SERUM 2020-09-08 14:43:00 [facility] [place] ESTIMATED GFR 2020-09-08 14:43:00 [facility] 2020-09-08 14:05:00 Fan, Ana Laura [facility] spital POC GLUCOSE 2020-09-07 22:14:00 Fan, Ana Laura [facility] spital POC GLUCOSE 2020-09-07 17:03:00 Fan, [facility] POC GLUCOSE 2020-09-07 13:18:00 Fan, Ana Laura [facility] spital [id number] TACROLIMUS LEVEL, 2020-09-07 10:30:00 [facility] [place] BASIC METABOLIC PANEL 2020-09-07 10:30:00 Fan [facility] HC COMPLETE BLD COUNT 2020-09-07 10:30:00 Ritesh [facility] W/AUTO DIFF ESTIMATED GFR 2020-09-07 10:30:00 Fan, [facility] POC GLUCOSE 2020-09-07 02:57:00 Fan, Ana Laura [facility] Ho spital US RENAL TRANSPLANT 2020-09-07 02:01:00 Chacho Grijalva [facility] DOPPLER POC GLUCOSE 2020-09-06 22:59:00 Fan, [facility] POC GLUCOSE 2020-09-06 17:16:00 Fan, [facility] POC GLUCOSE 2020-09-06 13:35:00 Fan, Ana Laura [facility] spital [id number] TACROLIMUS LEVEL, 2020-09-06 12:25:00 [facility] TROUGH Wade HC COMPLETE BLD COUNT 2020-09-06 12:25:00 Fan [facility] W/AUTO DIFF BASIC METABOLIC PANEL 2020-09-06 10:00:00 [facility] ESTIMATED GFR 2020-09-06 10:00:00 FanAna Lauraist Ho spital POC GLUCOSE 2020-09-05 23:25:00 Fan, Ana Laura Mcg[facility] Ho spital MRI BRAIN WO CONTRAST 2020-09-05 18:40:00 Fan [facility] POC GLUCOSE 2020-09-05 17:57:[address] CHEST WO CONTRAST 2020-09-05 16:38:12 [facility] POC GLUCOSE 2020-09-05 13:59:00 Fan [facility] spital CRYPTOCOCCAL ANTIGEN 2020-09-05 11:10:00 [facility] SCREEN BASIC METABOLIC PANEL 2020-09-05 11:10:00 Ritesh [facility] [id number] TACROLIMUS LEVEL, 2020-09-05 11:10:00 [facility] TROUGH Wade ESTIMATED GFR 2020-09-05 11:10:00 Chacho Grijalva [facility] POC GLUCOSE 2020-09-05 02:10:00 FanAna Lauraist Ho spital POC GLUCOSE 2020-09-04 22:39:00 FanAna Laura Ho spital POC GLUCOSE 2020-09-04 20:07:00 [facility]Ana [facility] POC GLUCOSE 2020-09-04 18:58:00 FanAna Laura [facility] POC GLUCOSE 2020-09-04 14:09:00 [facility] CRYPTOCOCCAL ANTIGEN 2020-09-04 12:00:00 Adrian Cornejo [facility] SCREEN BASIC METABOLIC PANEL 2020-09-04 12:00:00 Ritesh [facility] VANCOMYCIN LEVEL, RANDOM 2020-09-04 12:00:00 [facility] COM[facility]TE [facility] 2020-09-04 12:00:00 Ritesh [facility] W/AUTO DIFF [id number] TACROLIMUS LEVEL, 2020-09-04 12:00:00 [facility] HIV AG/AB COMBINATION 2020-09-04 12:00:00 Inder Bhat [facility] CD 4 SUBSET 2020-09-04 12:00:00 Inder Bhat Ho spital ESTIMATED GFR 2020-09-04 12:00:00 Chacho Grijalva [facility] POC GLUCOSE 2020-09-04 01:54:00 FanAna Laura Ho spital POC GLUCOSE 2020-09-03 23:25:00 FanAna Laura spital POC GLUCOSE 2020-09-03 17:53:00 FanAna Laura spital XR CHEST 1 VW PORTABLE 2020-09-03 14:50:00 Harley Simmons [facility] POC GLUCOSE 2020-09-03 14:05:00 FanAna Laura spital HC COMPLETE BLD COUNT 2020-09-03 11:47:00 Ritesh [facility] W/AUTO DIFF BASIC METABOLIC PANEL 2020-09-03 11:47:00 [facility] ESTIM[facility] GFR 2020-09-03 11:47:00 [facility]h [facility] spital AEROBIC CULTURE 2020-09-03 05:54:00 Rodrigue Wynn spital Rishi FUNGUS SMEAR 2020-09-03 05:54:00 Ritesh [facility] 2020-09-03 05:54[facility] 2020-09-03 05:54:00 Ritesh [facility] spital LEGIONELLA URINARY ANTIGEN 2020-09-03 04:45:00 Inder hBat [facility] STREPTOCOCCUS PNEUMONIAE 2020-09-03 04:45:00 Inder Bhat [facility] URINARY ANTIGEN POC GLUCOSE 2020-09-03 03:06:00 FanAna Laura spital POC GLUCOSE 2020-09-02 23:23:00 FanAna Laura spital VARICELLA ZOSTER BY PCR 2020-09-02 22:47:00 Bhat, [facility] IR LUMBAR PUNCTURE 2020-09-02 22:17:[address] [facility] CSF CULTURE 2020-09-02 22:15:00 Inder Bhat spital FUNGUS CULTURE 2020-09-02 22:15:00 Inder Bhat spital CRYPTOCOCCAL ANTIGEN 2020-09-02 22:15:00 [facility] SCREEN GRAM STAIN 2020-09-02 22:15:00 Inder Bhat spital CYTOMEGALOVIRUS BY PCR 2020-09-02 22:15:00 Home [facility] CSF CELL COUNT WITH 2020-09-02 22:15:00 [facility] DIFFERENTIAL PROTEIN, CSF 2020-09-02 22:15:00 [facility]der Bhat [facility] GLU[facility]SE LEVEL, CSF 2020-09-02 22:15:00 [facility] VDRL, CSF 2020-09-02 22:15:00 Inder Bhat spital VARICELLA ZOSTER BY PCR 2020-09-02 22:15:00 Home [facility] [employer] CULTURE 2020-09-02 21:15:00 Inder Bhat spital POC GLUCOSE 2020-09-02 21:13:00 FanAna Laura [facility] HEAD WO CONTRAST 2020-09-02 20:11:07 [facility] 2020-09-02 18:17:00 FanAna Laura spital POC GLUCOSE 2020-09-02 13:39:00 Fan, Ana Laura Mcghee spital BASIC METABOLIC PANEL 2020-09-02 09:58:00 [facility] ESTIM[facility] GFR 2020-09-02 09:58:00 Fan [facility] CBC WITH PLATELET AND 2020-09-02 09:00:00 [facility] DIFFERENTIAL POC GLUCOSE 2020-09-02 02:38:00 FanAna Laura spital POC GLUCOSE 2020-09-01 23:06:00 Fan, [facility] spital POC GLUCOSE 2020-09-01 18:27:00 Fan [facility] spital POC GLUCOSE 2020-09-01 14:01:00 [facility] spital [id number] TOTAL 2020-09-01 09:05:00 [facility] [id number] TACROLIMUS L[facility], 2020-09-01 09:05:[address] [facility] RANDOM HC COMPLETE BLD COUNT 2020-09-01 09:05:00 [facility] W/AUTO DIFF COMPREHENSIVE METABOLIC 2020-09-01 09:05:[address] [facility] PANEL ESTIMATED GFR 2020-09-01 09:05:00 [facility] Planned Activity Planned Date Details Comments Source Future Scheduled 2022-05-15 HEPATITIS B VACCINES [facility] Test 18:47:46 (1 of 3 - 3-dose series) [code = HEPATITIS B VACCINES (1 of 3 - 3-dose series)] Future Scheduled 2022-05-15 Hepatitis C screening [facility] Test 18:47:46 (procedure) [code = 278885002] Future Scheduled 2022-05-15 SHINGLES VACCINES (1 Met [facility] Test 18:47:46 of 2) [code = SHINGLES VACCINES (1 of 2)] Future Scheduled 2022-05-15 Screening for [facility] Test 18:47:46 malignant neoplasm of cervix (procedure) [code = 126758015] Future Scheduled 2022-05-15 COLONOSCOPY SCREENING [facility] Test 18:47:46 [code = COLONOSCOPY SCREENING] Future Scheduled 2022-05-15 Pneumococcal Vaccine: [facility] Test 18:47:46 Pediatrics (0 to 5 Years) and At-Risk Patients (6 to 64 Years) (2 - PPSV23 if available, else PCV20) [code = Pneumococcal Vaccine: Pediatrics (0 to 5 Years) and At-Risk Patients (6 to 64 Years) (2 - PPSV23 if available, else PCV20)] Future Scheduled 2022-05-15 BREAST CANCER [facility] Test 18:47:46 SCREENING [code = BREAST CANCER SCREENING] Future Scheduled 2022-05-15 COVID-19 VACCINE (3 - [facility] Test 18:47:46 Moderna risk series) [code = COVID-19 VACCINE (3 - Moderna risk series)] Future Scheduled 2022-05-15 DIABETES: RETINAL EYE [facility] Test 18:47:46 EXAM [code = DIABETES: RETINAL EYE EXAM] Future Scheduled 2022-05-15 INFLUENZA VACCINE Method [facility] Test 18:47:46 [code = INFLUENZA VACCINE] Future Scheduled 2022-05-[address] [facility] Test 18:47:46 [code = DIABETIC FOOT EXAM] Future Scheduled 2022-03-31 HEPATITIS B VACCINES Met [facility] Test 11:33:47 (1 of 3 - 3-dose series) [code = HEPATITIS B VACCINES (1 of 3 - 3-dose series)] Future Scheduled 2022-03-31 Hepatitis C screening [facility] Test 11:33:47 (procedure) [code = 856134195] Future Scheduled 2022-03-31 SHINGLES VACCINES (1 Met [facility] Test 11:33:47 of 2) [code = SHINGLES VACCINES (1 of 2)] Future Scheduled 2022-03-31 Screening for [facility] Test 11:33:47 malignant neoplasm of cervix (procedure) [code = 521052563] Future Scheduled 2022-03-31 COLONOSCOPY SCREENING [facility] Test 11:33:47 [code = COLONOSCOPY SCREENING] Future Scheduled 2022-03-31 Pneumococcal Vaccine: [facility] Test 11:33:47 Pediatrics (0 to 5 Years) and At-Risk Patients (6 to 64 Years) (2 - PPSV23 or PCV20) [code = Pneumococcal Vaccine: Pediatrics (0 to 5 Years) and At-Risk Patients (6 to 64 Years) (2 - PPSV23 or PCV20)] Future Scheduled 2022-03-31 BREAST CANCER [facility] Test 11:33:47 SCREENING [code = BREAST CANCER SCREENING] Future Scheduled 2022-03-31 COVID-19 VACCINE (3 - [facility] Test 11:33:47 Moderna risk series) [code = COVID-19 VACCINE (3 - Moderna risk series)] Future Scheduled 2022-03-31 DIABETES: RETINAL EYE [facility] Test 11:33:47 EXAM [code = DIABETES: RETINAL EYE EXAM] Future Scheduled 2022-03-31 INFLUENZA VACCINE Method [facility] Test 11:33:47 [code = INFLUENZA VACCINE] Future Scheduled 2022-03-31 DIABETIC FOOT EXAM [facility] Test 11:33:47 [code = DIABETIC FOOT EXAM] Future Scheduled 2022-03-31 HEPATITIS B VACCINES Met [facility] Test 11:33:47 (1 of 3 - 3-dose series) [code = HEPATITIS B VACCINES (1 of 3 - 3-dose series)] Future Scheduled 2022-03-31 Hepatitis C screening [facility] Test 11:33:47 (procedure) [code = 102585434] Future Scheduled 2022-03-31 SHINGLES VACCINES (1 Met [facility] Test 11:33:47 of 2) [code = SHINGLES VACCINES (1 of 2)] Future Scheduled 2022-03-31 Screening for [facility] Test 11:33:47 malignant neoplasm of cervix (procedure) [code = 870063730] Future Scheduled 2022-03-31 COLONOSCOPY SCREENING [facility] Test 11:33:47 [code = COLONOSCOPY SCREENING] Future Scheduled 2022-03-31 Pneumococcal Vaccine: [facility] Test 11:33:47 Pediatrics (0 to 5 Years) and At-Risk Patients (6 to 64 Years) (2 - PPSV23 or PCV20) [code = Pneumococcal Vaccine: Pediatrics (0 to 5 Years) and At-Risk Patients (6 to 64 Years) (2 - PPSV23 or PCV20)] Future Scheduled 2022-03-31 BREAST CANCER [facility] Test 11:33:47 SCREENING [code = BREAST CANCER SCREENING] Future Scheduled 2022-03-31 COVID-19 VACCINE (3 - [facility] Test 11:33:47 Moderna risk series) [code = COVID-19 VACCINE (3 - Moderna risk series)] Future Scheduled 2022-03-31 DIABETES: RETINAL EYE [facility] Test 11:33:47 EXAM [code = DIABETES: RETINAL EYE EXAM] Future Scheduled 2022-03-31 INFLUENZA VACCINE Method [facility] Test 11:33:47 [code = INFLUENZA VACCINE] Future Scheduled 2022-03-31 DIABETIC FOOT EXAM [facility] Test 11:33:47 [code = DIABETIC FOOT EXAM] Future Scheduled 2021-08-31 Hepatitis C screening [facility] Test 11:36:52 (procedure) [code = 075446530] Future Scheduled 2021-08-31 [facility] Test 11:36:52 malignant neoplasm of cervix (procedure) [code = 189089883] Future Scheduled 2021-08-31 COLONOSCOPY SCREENING [facility] Test 11:36:52 [code = COLONOSCOPY SCREENING] Future Scheduled 2021-08-31 SHINGLES VACCINES (#1) [facility] Test 11:36:52 [code = SHINGLES VACCINES (#1)] Future Scheduled 2021-08-31 [facility] Test 11:36:52 SCREENING [code = BREAST CANCER SCREENING] Future Scheduled 2021-08-31 [facility]ABETIC FOOT [facility] Test 11:36:52 [code = DIABETIC FOOT EXAM] Future Scheduled 2021-08-31 INFLUENZA VACCINE [facility] Test 11:36:52 [code = INFLUENZA VACCINE] Future Scheduled 2021-08-31 COVID-19 VACCINE (3 - Me [facility] Test 11:36:52 Moderna risk 4-dose series) [code = COVID-19 VACCINE (3 - Moderna risk 4-dose series)] Future Scheduled 2021-08-31 DIABETES: RETINAL EYE [facility] Test 11:36:52 EXAM [code = DIABETES: RETINAL EYE EXAM] Encounters Start End Encounter Admission Attending Care Care Encounter Source Date/Time Date/Time Type Type Clinicians Facility Department ID 2021-12-25 Inpatient JOSE LUIS Kan DAYS [id number] [facility] 08:00:00 Az Davis [facility] 2021-10-01 Outpatient Long, Na [facility] [id number] 2 Common 07:26:00 [facility] 2021-09-28 Outpatient Long, Na [facility] [id number] 2 Common 08:20:00 [facility] 2021-08-26 Outpatient Long, Na [facility] [id number] 2 Common 12:43:39 [id number] [facility] 2021-08-26 Outpatient Long, Na [facility] [id number] 2 Common 12:21:24 [id number] [facility] 2021-08-26 Outpatient Long, Na [facility] [id number] 2 Common 12:20:42 [id number] [facility] 2021-08-26 Outpatient Long, Na [facility] [id number] 2 Common 12:17:55 [id number] [facility] 2021-08-26 Outpatient Long, Na [facility]LML[facility] [id number] 2 Common 12:17:20 [id number] [facility] 2021-08-26 Outpatient Long, Na [facility]LML[facility] [id number] 2 Common 11:57:36 73334 [facility] 2021-08-26 Outpatient Long, Na [facility] [id number] 2 Common 11:56:47 [id number] [facility] 2021-08-26 Outpatient Long, Na [facility] [id number] 2 Common 11:31:59 [id number] [facility] 2021-08-26 Outpatient Long, Na [facility] [id number] 2 Common 11:31:40 [id number] [facility] 2021-08-26 Outpatient Long, Na [facility] [id number] 2 Common 11:27:44 [id number] [facility] 2021-08-26 Outpatient Long, Na [facility] [id number] 2 Common 11:27:14 [id number] [facility] 2021-08-26 Outpatient Long, Na [facility] [id number] 2 Common 11:22:57 [id number] [facility] 2021-08-26 Outpatient Long, Na [facility] [id number] 2 Common 11:13:26 [id number] [facility] 2022-04-23 2022-04-30 Inpatient EM Pardeepwindsor HCACL MEDI.01 G001 [id number] [facility] 14:11:00 16:35:00 an, 78 Clear [facility] 2022-03-25 2022-03-25 OFFICE STLMLC ST[facility]MLC [id number] Co mmon 00:00:00 00:00:00 VISIT EST Spir it PT LEVEL 3 - [facility] 2022-03-10 2022-03-10 OFFICE [facility] [id number] Co mmon 00:00:00 00:00:00 VISIT Sudeep LYNN PT - [facility] LEVEL 2 [facility] 2022-03-08 2022-03-08 Telephone Ray, 1.2.840.1 [id number] 2099 [id number] Methodi 00:00:00 00:00:[address] 3.430.2.7 Hospit a .3.369341 l .8 2022-03-08 2022-03-08 Telephone Ray, 1.2.840.1 [id number] 2099 [id number] Methodi 00:00:00 00:00:[address] 3.430.2.7 Hospit a .3.530844 l .8 2022-03-03 2022-03-03 Documentat Readeaux, 1.2.840.1 [id number] 2 [id number] Methodi 00:00:00 00:00:[address].1.[address] 3.430.2.7 Hospit a .3.933805 l .8 2022-03-03 2022-03-03 Orders Readeaux, 1.2.840.1 [id number] 2099 706863 Methodi 00:00:00 00:00:00 Only Billie 17378.1.[address] 3.430.2.7 Hospit a .3.481293 l .8 2022-03-03 2022-03-03 Documentat Readeaux, 1.2.840.1 [id number] 2 [id number] Methodi 00:00:00 00:00:00 ion Billie 71161.1.[address] 3.430.2.7 Hospit a .3.007191 l .8 2022-03-03 2022-03-03 Orders Readeaux, 1.2.840.1 [id number] 2100 958018 Methodi 00:00:00 00:00:00 Only Billie 45426.1.[address] 3.430.2.7 Hospit a .3.264196 l .8 2022-02-10 2022-02-10 OL DIG E/M STLMLC STLC [id number] Common 00:00:00 00:00:00 SVC 11-20 Spir it MIN - [facility] 2022-01-27 2022-01-27 OFFICE [facility] [id number] Co mmon 00:00:00 00:00:00 VISIT EST Spir it PT LEVEL 3 - [facility] 2022-01-20 2022-01-20 Outpatient EL Yolanda, HCACL HCACL [id number] [facility] 05:38:00 05:38:00 Az [id number] [facility] 2022-01-20 2022-01-20 Outpatient EL Yolanda, HCACL [id number] [facility] 05:38:00 05:38:00 Az 71 [facility] 2022-01-13 2022-01-13 Office Home, 1.2.840.1 [id number] 7634 Methodi 14:00:00 14:38:06 Visit Inder Roach 58726.1.[address] 3.430.2.7 Hospit a .3.677408 l .8 2022-01-13 2022-01-13 Office Home, 1.2.840.1 [id number] 2459 Methodi 14:00:00 14:38:06 Visit Reneesadie Roach 88974.1.[address] 3.430.2.7 Hospit a .3.676559 l .8 2022-01-13 2022-01-13 Travel 1.2.840.1 1.2.245.081 2152 125233 Methodi 00:00:00 00:00:[address] 3.430.2.7 0.2.7.3.698 Ho spita .3.431238 084.8 l .8 2022-01-13 2022-01-13 Travel 1.2.840.1 1.2.149.666 0223 362519 Methodi 00:00:00 00:00:[address] 3.430.2.7 0.2.7.3.698 Ho spita .3.857767 084.8 l .8 2022-01-01 2022-01-01 Documentat Readeaux, 1.2.840.1 [id number] 2 [id number] Methodi 00:00:00 00:00:00 ion Billie 18951.1.[address] 3.430.2.7 Hospit a .3.747538 l .8 2022-01-01 2022-01-01 Orders Readeaux, 1.2.840.1 [id number] 2099 106032 Methodi 00:00:00 00:00:00 Only Billie 52621.1.[address] 3.430.2.7 Hospit a .3.578660 l .8 2022-01-01 2022-01-01 Documentat Readeaux, 1.2.840.1 [id number] 2 [id number] Methodi 00:00:00 00:00:00 ion Billie 76694.1.[address] 3.430.2.7 Hospit a .3.210302 l .8 2022-01-01 2022-01-01 Orders Readeaux, 1.2.840.1 [id number] 2099 [id number] Methodi 00:00:00 00:00:00 Only Billie 04474.1.[address] 3.430.2.7 Hospit a .3.411260 l .8 2021-12-31 2021-12-31 Refill Bhat, 1.2.840.1 [id number] 426484 2388 Methodi 00:00:00 00:00:00 Shivan M 18565.1.[address] 3.430.2.7 Hospit a .3.104727 l .8 2021-12-31 2021-12-31 Refill Bhat, 1.2.840.1 [id number] 688067 3869 Methodi 00:00:00 00:00:00 Shivan M [address]409.1.[address] 3.430.2.7 Hospit a .3.049280 l .8 2021-12-24 2021-12-24 (TEL) STLMLC STLMLC [id number] Co mmon 00:00:00 00:00:00 [facility] 2021-12-24 2021-12-24 (TEL) STLMLC STLMLC [id number] Co mmon 00:00:00 00:00:00 [facility] 2021-12-24 2021-12-24 OFFICE STLMLC STLMLC [id number] Co mmon 00:00:00 00:00:00 VISIT [facility] LEVEL 1 [facility] 2021-12-17 2021-12-17 Oncology Green, 1.2.840.1 [id number] 87099 Methodi 00:00:00 00:00:[address] Surviv[address]39.[address] ip 3.430.2.7 Hospit a .3.066192 l .8 2021-12-17 2021-12-17 Oncology Green, 1.2.840.1 [id number] 65059 76401 Methodi 00:00:00 00:00:[address] Surviv[address] ip 3.430.2.7 Hospit a .3.740475 l .8 2021-12-10 2021-12-10 Outpatient EL Yolanda, HCACL HCACL [id number] [facility] 05:32:00 05:32:00 Az [id number] [facility] 2021-12-10 2021-12-10 Outpatient EL Yolanda, HCACL DAYS [id number] [facility] 05:32:00 05:32:00 Az 32 [facility] 2021-11-16 2021-11-24 [facility] Laina Rucker 1.2.840.1 10 [id number] Methodi 19:43:00 19:03:00 Encounter Joceline Barton 84335.1.[address] 3.430.2.7 Hospit a .3.854294 l .8 2021-11-16 2021-11-24 [facility] Laina Rucker 1.2.840.1 10 [id number] Methodi 19:43:00 19:03:00 Encounter Joceline Barton 23420.1.[address] 3.430.2.7 Hospit a .3.166522 l .8 2021-11-16 2021-11-16 Travel 1.2.840.1 1.2.710.531 2484 140878 Methodi 00:00:00 00:00:[address] 3.430.2.7 0.2.7.3.698 Ho spita .3.008479 084.8 l .8 2021-11-16 2021-11-16 Travel 1.2.840.1 1.2.908.337 2760 440891 Methodi 00:00:00 00:00:[address] 3.430.2.7 0.2.7.3.698 Ho spita .3.548099 084.8 l .8 2021-10-29 2021-10-[address] [facility], 1.2.840.1 [id number] 2099 [id number] Methodi 00:00:00 00:00:[address] Eng 3.430.2.7 Hospit a .3.190744 l .8 2021-10-29 2021-10-[address] [facility], 1.2.840.1 [id number] 2099 744555 Methodi 00:00:00 00:00:[address] Eng 3.430.2.7 Hospit a .3.699236 l .8 2021-10-09 2021-10-27 [facility] Raghu Sheehan 1.2.840.1 104 [id number] Methodi 10:33:00 20:19:00 Encounter Joceline Barton 86068.1.[address] 3.430.2.7 Hospit a .3.797022 l .8 2021-10-09 2021-10-27 [facility] Begum 1.2.840.1 104 [id number] Methodi 10:33:00 20:19:00 Encounter Joceline Barton 90203.1.[address] 3.430.2.7 Hospit a .3.774394 l .8 2021-10-13 2021-10-13 Orders Nieves, 1.2.840.1 [id number] 7889 Methodi 00:00:00 00:00:00 Only Uzma 12698.1.[address] 3.430.2.7 Hospit a .3.294752 l .8 2021-10-13 2021-10-13 Orders Nieves, 1.2.840.1 [id number] 5048 Methodi 00:00:00 00:00:00 Only Uzma 62137.1.[address] 3.430.2.7 Hospit a .3.025822 l .8 2021-10-12 2021-10-12 Anesthesia Jhon Wesley 1.2.840.1 [id number] 2 [id number] Methodi 18:42:00 20:34:[address] 3.430.2.7 Hospit a .3.379873 l .8 2021-10-12 2021-10-12 Anesthesia Jhon Wesley 1.2.840.1 [id number] 2 [id number] Methodi 18:42:00 20:34:[address] 3.430.2.7 Hospit a .3.228438 l .8 2021-10-12 2021-10-12 Surgery Yolanda, 1.2.840.1 [id number] 089255 8165 Methodi 18:00:00 19:20:[address] Manolo 3.430.2.7 Hospit a .3.320281 l .8 2021-10-12 2021-10-12 Surgery Yolanda, 1.2.840.1 [id number] 3283 Methodi 18:00:00 19:20:[address] Manolo 3.430.2.7 Hospit a .3.809892 l .8 2021-10-09 2021-10-09 Travel 1.2.840.1 1.2.430.396 3438 575857 Methodi 00:00:00 00:00:[address] 3.430.2.7 0.2.7.3.698 Ho spita .3.363689 084.8 l .8 2021-10-09 2021-10-09 Travel 1.2.840.1 1.2.334.696 9218 323356 Methodi 00:00:00 00:00:[address] 3.430.2.7 0.2.7.3.698 Ho spita .3.684710 084.8 l .8 2021-09-30 2021-09-30 (ESTPT) STLMLC STLMLC [id number] Co mmon 00:00:00 00:00:00 Reji driver Patient - [facility] 2021-09-22 2021-09-22 Orders Nieves, 1.2.840.1 [id number] 5993 Methodi 00:00:00 00:00:00 Only Uzma 78654.1.[address] 3.430.2.7 Hospit a .3.636556 l .8 2021-09-22 2021-09-22 Orders Nieves, 1.2.840.1 [id number] 127602 6237 Methodi 00:00:00 00:00:00 Only Uzma 46731.1.[address] 3.430.2.7 Hospit a .3.040649 l .8 2021-09-10 2021-09-10 OFFICE STLMLC STLMLC [id number] Co mmon 00:00:00 00:00:00 VISIT EST Spir it PT LEVEL 3 - [facility] 2021-08-25 2021-08-29 [facility] Kayce Parks 1.2.840.1 [id number] 2 [id number] Methodi 19:10:00 12:50:00 Encounter Brenda Anguloo 23000.1.[address] [place], Reynaldo 3.430.2.7 [facility] .3.067381 l .8 2021-08-25 2021-08-29 [facility] Kayce Parks 1.2.840.1 [id number] 2 [id number] Methodi 19:10:00 12:50:00 Encounter Ellen Angulo 25188.1.[address] [place], Reynaldo 3.430.2.7 [facility] Gonzalez .3.582744 l .8 2021-08-28 2021-08-28 Anesthesia Traylor, 1.2.840.1 [id number] 237 [id number] Methodi 23:59:59 23:59:59 Event Rishi Gil 30077.1.[address] 3.430.2.7 Hospit a .3.912799 l .8 2021-08-28 2021-08-28 Anesthesia Traylor, 1.2.840.1 [id number] 511 9334856 Methodi 23:59:59 23:59:59 Event Rishi Gil 24016.1.[address] 3.430.2.7 Hospit a .3.317219 l .8 2021-08-28 2021-08-28 Orders Nieves, 1.2.840.1 [id number] 3008 Methodi 00:00:00 00:00:00 Only Uzma 67026.1.[address] 3.430.2.7 Hospit a .3.226310 l .8 2021-08-28 2021-08-28 Orders Nieves, 1.2.840.1 [id number] 301047 9804 Methodi 00:00:00 00:00:00 Only Uzma 14653.1.[address] 3.430.2.7 Hospit a .3.164293 l .8 2021-08-25 2021-08-25 Travel 1.2.840.1 1.2.503.157 1242 380031 Methodi 00:00:00 00:00:[address] 3.430.2.7 0.2.7.3.698 Ho spita .3.528568 084.8 l .8 2021-08-25 2021-08-25 Travel 1.2.840.1 1.2.100.364 8948 177943 Methodi 00:00:00 00:00:[address] 3.430.2.7 0.2.7.3.698 Ho spita .3.120421 084.8 l .8 2021-08-20 2021-08-20 OFFICE STLMLC STLMLC [id number] Co mmon 00:00:00 00:00:00 VISIT Spirit ESTAB PT - [facility] LEVEL 2 [facility] 2021-07-23 2021-07-23 OFFICE STLMLC STLMLC [id number] Co mmon 00:00:00 00:00:00 VISIT EST Spir it PT LEVEL 3 - [facility] 2021-07-07 2021-07-07 Telephone Abdellatif, 1.2.840.1 [id number] Methodi 14:30:00 14:45:00 Consult Souleymane Ali 84889.1.[address] 3.430.2.7 Hospit a .3.585360 l .8 2021-07-07 2021-07-07 Telephone Abdellatif, 1.2.840.1 [id number] Methodi 14:30:00 14:45:00 Consult Souleymane Ali 90837.1.[address] 3.430.2.7 Hospit a .3.577321 l .8 2021-07-06 2021-07-06 Travel 1.2.840.1 1.2.205.913 2802 366844 Methodi 00:00:00 00:00:[address] 3.430.2.7 0.2.7.3.698 Ho spita .3.033464 084.8 l .8 2021-07-06 2021-07-06 Outpatient [facility] 560 [id number] [place] 00:00:00 00:00:[address] 2021-07-06 2021-07-06 Travel 1.2.840.1 1.2.629.887 8825 188476 Methodi 00:00:00 00:00:[address] 3.430.2.7 0.2.7.3.698 Ho spita .3.726737 084.8 l .8 2021-07-01 2021-07-01 [id number]mon 00:00:00 00:00:00 VISIT [facility] PT LEVEL 4 - [facility] 2021-06-24 2021-06-24 Documentat Artur, 1.2.840.1 [id number] 566 [id number] Methodi 00:00:00 00:00:00 tc Gambino 93777.1.[address] 3.430.2.7 Hospit a .3.850952 l .8 2021-06-24 2021-06-24 Documentat Siddiqui, 1.2.840.1 [id number] 715 5133223 Methodi 00:00:00 00:00:00 tc Gambino [address]236.1.[address] 3.430.2.7 Hospit a .3.516383 l .8 2021-06-23 2021-06-23 Documentat Siddiqui, 1.2.840.1 [id number] 653 [id number] Methodi 00:00:00 00:00:00 tc Gambino [address]382.1.[address] 3.430.2.7 Hospit a .3.017180 l .8 2021-06-23 2021-06-23 Documentat Siddiqui, 1.2.840.1 [id number] 095 6760476 Methodi 00:00:00 00:00:00 tc Gambino [address]202.1.[address] 3.430.2.7 Hospit a .3.125506 l .8 2021-04-22 2021-04-22 Refill Lynn, 1.2.840.1 [id number] 852224 5796 Methodi 00:00:00 00:00:[address] Eng 3.430.2.7 Hospit a .3.793997 l .8 2021-04-07 2021-04-07 Office Parveenmichael, 1.2.840.1 [id number] 21 [id number] Methodi 13:22:43 13:37:43 Visit Souleymane Ocampo 33195.1.[address] 3.430.2.7 Hospit a .3.070549 l .8 2021-04-07 2021-04-07 [facility] 458 [id number] [place] 00:00:00 00:00:00 SOU[address]E [address] 2021-04-07 2021-04-07 Travel 1.2.840.1 1.2.498.322 3169 044222 Methodi 00:00:00 00:00:[address] 3.430.2.7 0.2.7.3.698 Ho spita .3.670774 084.8 l .8 2021-02-18 2021-02-[address] [facility], 1.2.840.1 [id number] 372 [id number] Methodi 10:16:48 11:16:49 ne Onelia 31578.1.[address] Eng 3.430.2.7 Hospit a .3.539719 l .8 2021-02-16 2021-02-16 Lab Stark, 1.2.840.1 [id number] 261895 4101 Methodi 08:29:31 08:34:[address] Sonu 3.430.2.7 Hospit a .3.594933 l .8 2021-02-16 2021-02-16 Telephone [place], 1.2.840.1 [id number] 21 [id number] Methodi 00:00:00 00:00:[address] 3.430.2.7 Hospit a .3.262819 l .8 2021-02-16 2021-02-16 Travel 1.2.840.1 1.2.054.633 7080 534558 Methodi 00:00:00 00:00:[address] 3.430.2.7 0.2.7.3.698 Ho spita .3.472598 084.8 l .8 2021-02-11 2021-02-11 Refill Artur, 1.2.840.1 [id number] 014805 5066 Methodi 00:00:00 00:00:[address] 3.430.2.7 Hospit a .3.844074 l .8 2021-02-11 2021-02-11 Refill Artur, 1.2.840.1 [id number] 015246 1158 Methodi 00:00:00 00:00:[address] 3.430.2.7 Hospit a .3.731739 l .8 2021-02-09 2021-02-09 Office Tanya, 1.2.840.1 [id number] 523454 1404 Methodi 07:42:22 08:03:19 Visit Jus 23420.1.[address] [place] 3.430.2.7 Hospit a .3.307266 l .8 2021-02-09 2021-02-09 Travel 1.2.840.1 1.2.102.544 0503 324306 Methodi 00:00:00 00:00:[address] 3.430.2.7 0.2.7.3.698 Ho spita .3.146215 084.8 l .8 2021-01-28 2021-01-28 Telephone Desiree 1.2.840.1 [id number] Methodi 00:00:00 00:00:00 , Kiley [address]608.1.[address] 3.430.2.7 Hospit a .3.990054 l .8 2021-01-27 2021-01-27 [facility] Sharifa Hansen 1.2.840.1 [id number] 030 [id number] Methodi 06:00:00 13:37:[address] 3.430.2.7 Hospit a .3.231969 l .8 2021-01-27 2021-01-27 Surgery Sharifa Hansen 1.2.840.1 [id number] 2100 355417 Methodi 10:00:00 12:15:[address] 3.430.2.7 Hospit a .3.016621 l .8 2021-01-27 2021-01-27 Anesthesia Luis AlfredoPaola 1.2.840 .1 [id number] Methodi 10:49:00 12:11:00 Event MortezakaesusanneDemetra 64900.1.[address] 3.430.2.7 Hospit a .3.443431 l .8 2021-01-26 2021-01-26 Travel 1.2.840.1 1.2.605.759 8831 888844 Methodi 00:00:00 00:00:[address] 3.430.2.7 0.2.7.3.698 Ho spita .3.270603 084.8 l .8 2021-01-22 2021-01-22 [facility] Sharifa Hansen 1.2.840.1 [id number] 300 [id number] Methodi 14:45:00 23:59:[address] 3.430.2.7 Hospit a .3.159574 l .8 2021-01-22 2021-01-22 Travel 1.2.840.1 1.2.650.252 1830 756486 Methodi 00:00:00 00:00:[address] 3.430.2.7 0.2.7.3.698 Ho spita .3.329199 084.8 l .8 2021-01-21 2021-01-21 [facility] Sharifa Hansen 1.2.840.1 [id number] 2100 833862 Methodi 14:27:32 14:42:[address] 3.430.2.7 Hospit a .3.415565 l .8 2021-01-21 2021-01-21 Office aTnya, 1.2.840.1 [id number] 782910 1235 Methodi 13:08:26 14:20:16 Visit Jus 50990.1.[address] [place] 3.430.2.7 Hospit a .3.770925 l .8 2021-01-21 2021-01-21 Outpatient SANDRA CERVANTES [facility] 427 [id number] [place] 00:00:00 00:00:[address] 2021-01-21 2021-01-21 Telephone MarleniSharifa 1.2.840.1 [id number] 21 [id number] Methodi 00:00:00 00:00:[address] 3.430.2.7 Hospit a .3.232951 l .8 2021-01-21 2021-01-21 Prep for [place] 1.2.840.1 [id number] 2 [id number] Methodi 00:00:00 00:00:00 Surgery , Kiley [address]692.1.[address] 3.430.2.7 Hospit a .3.822459 l .8 2021-01-21 2021-01-21 Orders Connie, 1.2.840.1 [id number] 025 [id number] Methodi 00:00:00 00:00:00 Only Sophia 13536.1.[address] 3.430.2.7 Hospit a .3.308098 l .8 2021-01-21 2021-01-21 Orders [place] 1.2.840.1 [id number] 21 [id number] Methodi 00:00:00 00:00:00 Only , Kiley 85063.1.[address] 3.430.2.7 Hospit a .3.822421 l .8 2021-01-21 2021-01-21 Travel 1.2.840.1 1.2.304.271 1292 842262 Methodi 00:00:00 00:00:[address] 3.430.2.7 0.2.7.3.698 Ho spita .3.896827 084.8 l .8 2021-01-20 2021-01-20 Telephone Renetta, 1.2.840.1 [id number] Methodi 13:56:10 14:11:10 Consult Souleymane Ocampo 30907.1.[address] 3.430.2.7 Hospit a .3.438129 l .8 2021-01-20 2021-01-20 Telephone MikeSandra 1.2.840.1 [id number] Methodi 00:00:00 00:00:[address] 3.430.2.7 Hospit a .3.065623 l .8 2021-01-19 2021-01-19 Office Jairnils, 1.2.840.1 [id number] 2117 Methodi 09:31:38 09:51:38 Visit Onelia 18908.1.[address] 3.430.2.7 Hospit a .3.949161 l .8 2021-01-19 2021-01-19 Outpatient STARK, [facility] [id number] [place] 00:00:00 00:00:00 MAYA [address] 2021-01-19 2021-01-19 Outpatient [facility] [id number] 488 [place] 00:00:00 00:00:00 ONELIA [address] 2021-01-19 2021-01-19 Telephone Minerva, 1.2.840.1 [id number] Methodi 00:00:00 00:00:[address] 3.430.2.7 Hospit a .3.841609 l .8 2021-01-19 2021-01-19 Travel 1.2.840.1 1.2.626.022 3998 [id number] Methodi 00:00:00 00:00:[address] 3.430.2.7 0.2.7.3.698 Ho spita .3.393418 084.8 l .8 2021-01-15 2021-01-15 Telephone Stanley, 1.2.840.1 [id number] 2099 [id number] Methodi 00:00:00 00:00:[address] 3.430.2.7 Hospit a .3.911325 l .8 2020-12-24 2020-12-24 Lab Abdellatif, 1.2.840.1 [id number] Methodi 07:21:53 07:26:53 [address] 72693.1.[address] 3.430.2.7 Hospit a .3.344459 l .8 2020-12-24 2020-12-24 Lab Sadhu, 1.2.840.1 [id number] Methodi 07:20:47 07:25:[address] 3.430.2.7 Hospit a .3.675320 l .8 2020-12-24 2020-12-24 Telephone Stanley, 1.2.840.1 [id number] 2099 [id number] Methodi 00:00:00 00:00:[address] 3.430.2.7 Hospit a .3.316869 l .8 2020-12-24 2020-12-24 Travel 1.2.840.1 1.2.057.083 3019 486519 Methodi 00:00:00 00:00:[address] 3.430.2.7 0.2.7.3.698 Ho spita .3.379482 084.8 l .8 2020-12-17 2020-12-17 Telephone Abdellatif, 1.2.840.1 [id number] Methodi 00:00:00 00:00:00 Souleymane Ocampo 25739.1.[address] 3.430.2.7 Hospit a .3.149007 l .8 2020-11-28 2020-11-28 Orders Readeaux, 1.2.840.1 [id number] 2099 [id number] Methodi 00:00:00 00:00:00 Only Billie 32568.1.[address] 3.430.2.7 Hospit a .3.818477 l .8 2020-11-25 2020-11-25 Telephone Renetta, 1.2.840.1 [id number] Methodi 07:57:52 08:12:52 Consult Souleymane Ocampo 28932.1.[address] 3.430.2.7 Hospit a .3.990832 l .8 2020-11-25 2020-11-25 Telephone Cisco, 1.2.840.1 [id number] 2099 [id number] Methodi 00:00:00 00:00:[address] 3.430.2.7 Hospit a .3.285029 l .8 2020-11-24 2020-11-24 [facility] [id number] [address] [place] [address] 00:00:00 00:00:00 MAYA [address] 2020-11-24 2020-11-24 Travel 1.2.840.1 1.2.370.899 7862 [id number] Methodi 00:00:00 00:00:[address] 3.430.2.7 0.2.7.3.698 Ho spita .3.555454 084.8 l .8 2020-11-12 2020-11-[address] [facility], 1.2.840.1 [id number] Methodi 14:11:11 14:31:11 Visit Onelia 19044.1.[address] Eng 3.430.2.7 Hospit a .3.826296 l .8 2020-11-12 2020-11-12 Travel 1.2.840.1 1.2.058.373 7540 928609 Methodi 00:00:00 00:00:[address] 3.430.2.7 0.2.7.3.698 Ho spita .3.677937 084.8 l .8 2020-11-12 2020-11-12 Outpatient [facility] [id number] Common 00:00:00 00:00:00 [facility] 2020-11-10 2020-11-10 Lab Lincoln, 1.2.840.1 [id number] 6478 Methodi 09:00:31 09:05:[address] Sonu 3.430.2.7 Hospit a .3.822097 l .8 2020-11-10 2020-11-10 Travel 1.2.840.1 1.2.867.658 3383 718053 Methodi 00:00:00 00:00:[address] 3.430.2.7 0.2.7.3.698 Ho spita .3.742499 084.8 l .8 2020-11-05 2020-11-05 Telephone Zach, 1.2.840.1 [id number] 2100 224412 Methodi 00:00:00 00:00:00 Darline Roach [address]1344.1.[address] 3.430.2.7 Hospit a .3.217276 l .8 2020-11-03 2020-11-03 Marcy Siddiqui, 1.2.840.1 [id number] 0254 Methodi 00:00:00 00:00:[address] 3.430.2.7 Hospit a .3.832957 l .8 2020-10-28 2020-10-28 Telephone Renetta, 1.2.840.1 [id number] Methodi 14:38:27 14:53:27 Consult Souleymane Ocampo 46229.1.[address] 3.430.2.7 Hospit a .3.828826 l .8 2020-10-27 2020-10-27 Lab Lincoln, 1.2.840.1 [id number] 6264 Methodi 07:45:13 07:50:[address] Sonu 3.430.2.7 Hospit a .3.049066 l .8 2020-10-27 2020-10-27 Lab Renetta, 1.2.840.1 [id number] Methodi 07:15:48 07:20:48 Souleymane Ocampo [address]19.[address] 3.430.2.7 Hospit a .3.186728 l .8 2020-10-27 2020-10-27 Refill Siddiqui, 1.2.840.1 [id number] 1890 Methodi 00:00:00 00:00:[address] 3.430.2.7 Hospit a .3.309706 l .8 2020-10-27 2020-10-27 Refill Artur, 1.2.840.1 [id number] 9968 Methodi 00:00:00 00:00:[address] 3.430.2.7 Hospit a .3.625310 l .8 2020-10-27 2020-10-27 Travel 1.2.840.1 1.2.017.501 7577 469962 Methodi 00:00:00 00:00:[address] 3.430.2.7 0.2.7.3.698 Ho spita .3.346586 084.8 l .8 2020-10-24 2020-10-24 Telephone Dilcia, 1.2.840.1 [id number] 902 [id number] Methodi 00:00:00 00:00:[address] 3.430.2.7 Hospit a .3.868121 l .8 2020-10-22 2020-10-22 Refill Lynn, 1.2.840.1 [id number] [id number] 3892 Methodi 00:00:00 00:00:[address] 3.430.2.7 Hospit a .3.534933 l .8 2020-10-22 2020-10-22 Telephone Stanley, 1.2.840.1 [id number] 2099 [id number] Methodi 00:00:00 00:00:[address] 3.430.2.7 Hospit a .3.809908 l .8 2020-10-14 2020-10-14 Telephone Renetta, 1.2.840.1 [id number] Methodi 14:44:11 14:59:11 Consult Souleymane Ocampo 97475.1.[address] 3.430.2.7 Hospit a .3.444598 l .8 2020-10-13 2020-10-13 Lab Lincoln, 1.2.840.1 [id number] 3674 Methodi 07:00:34 07:05:[address] Sonu 3.430.2.7 Hospit a .3.455835 l .8 2020-10-13 2020-10-13 Refkehsia Siddiqui, 1.2.840.1 [id number] 7872 Methodi 00:00:00 00:00:[address] 3.430.2.7 Hospit a .3.955114 l .8 2020-10-13 2020-10-13 Travel 1.2.840.1 1.2.281.894 8375 [id number] Methodi 00:00:00 00:00:[address] 3.430.2.7 0.2.7.3.698 Ho spita .3.979637 084.8 l .8 2020-10-06 2020-10-06 Outpatient [facility] [id number] Common 00:00:00 00:00:00 [facility] 2020-10-05 2020-10-05 Travel 1.2.840.1 1.2.472.641 3916 456461 Methodi 00:00:00 00:00:[address] 3.430.2.7 0.2.7.3.698 Ho spita .3.204601 084.8 l .8 2020-10-03 2020-10-03 Refkeshia Siddiqui, 1.2.840.1 [id number] 4365 Methodi 00:00:00 00:00:[address] 3.430.2.7 Hospit a .3.074893 l .8 2020-09-30 2020-09-30 Telephone Lincoln, 1.2.840.1 [id number] 2100 [id number] Methodi 10:21:15 10:36:15 Consult Maya 30812.1.[address] Sonu 3.430.2.7 Hospit a .3.865723 l .8 2020-09-30 2020-09-30 [facility] [id number] [address] [place] [address] 00:00:00 00:00:00 MAYA [address] 2020-09-30 2020-09-30 Travel 1.2.840.1 1.2.554.008 2753 [id number] Methodi 00:00:00 00:00:[address] 3.430.2.7 0.2.7.3.698 Ho spita .3.628878 084.8 l .8 2020-09-29 2020-09-29 Patient Yuliana Billy 1.2.840.1 [id number] Methodi 00:00:00 00:00:[address] 3.430.2.7 Hospit a .3.871421 l .8 2020-09-26 2020-09-26 Patient Yuliana Billy 1.2.840.1 [id number] Methodi 00:00:00 00:00:[address] 3.430.2.7 Hospit a .3.478792 l .8 2020-09-26 2020-09-26 Outpatient [facility] [id number] Common 00:00:00 00:00:00 [facility] 2020-09-25 2020-09-25 Patient Yuliana Billy 1.2.840.1 [id number] 21 [id number] Methodi 00:00:00 00:00:[address] 3.430.2.7 Hospit a .3.068597 l .8 2020-09-17 2020-09-24 Hospital Ritesh, 12.840.1 [id number] 30851 Methodi 20:12:00 18:10:00 Encounter Ana Laura 32306.1.[address] 3.430.2.7 Hospit a .3.556316 l .8 2020-09-22 2020-09-22 Orders [facility], 12.840.1 [id number] 7918 Methodi 00:00:00 00:00:00 Only Uzma 70637.1.[address] 3.430.2.7 Hospit a .3.056544 l .8 2020-08-30 2020-09-17 [facility] 1.2.840.1 10 [id number] Methodi 14:06:00 20:03:00 Encounter Ana Laura Combs 93578.1.[address] 3.430.2.7 Hospit a .3.798901 l .8 2020-08-08 2020-08-08 Outpatient [facility] [id number] Common 00:00:00 00:00:00 [facility] 2020-08-06 2020-08-06 Outpatient [facility] [id number] Common 00:00:00 00:00:00 [facility] 2020-08-05 2020-08-05 [facility] 849 [id number] [place] 00:00:00 00:00:00 SOULEYMANE [address] 2020-08-05 2020-08-05 [facility] [id number] 334 [place] 00:00:00 00:00:00 AHMED [address] 2020-08-04 2020-08-04 Outpatient [facility] [id number] Common 00:00:00 00:00:00 [facility] 2020-07-07 2020-07-07 [facility] 708 [id number] [place] 00:00:00 00:00:00 SOULEYMANE [address] 2020-06-02 2020-06-02 Outpatient [facility] [id number] Common 00:00:00 00:00:00 [facility] 2020-05-22 2020-05-22 Outpatient [facility] [id number] Common 00:00:00 00:00:00 [facility] 2020-05-20 2020-05-20 Outpatient LYNN, [facility] [id number] [address] [place] [address] 00:00:00 00:00:00 ONELIA [address] 2020-03-14 2020-03-14 Out[facility] [id number] Common 16:20:00 16:20:[address] [facility] 2020-02-23 2020-02-23 Out[facility] 31 [id number] Common 17:58:00 17:58:[address] [facility] 2020-02-18 2020-02-18 Out[facility] 31 [id number] Common 08:20:00 08:20:[address] [facility] 2020-01-22 2020-01-22 Outpatient LINCOLN, [facility] [id number] 333 [place] 00:00:00 00:00:00 MAYA [address] 2020-01-21 2020-01-21 Out[facility] [id number] Common 13:00:00 13:00:[address] [facility] 2020-01-15 2020-01-15 Outpatient ABDELLATIF, [facility] [id number] [id number] [place] 00:00:00 00:00:00 SOULEYMANE [address] 2019-12-11 2019-12-11 Out[facility] 30 [id number] Common 16:09:00 16:09:[address] [facility] 2019-12-07 2019-12-07 Out[facility] 30 [id number] Common 13:40:00 13:40:[address] [facility] 2019-12-07 2019-12-07 Out[facility] 30 [id number] Common 08:06:00 08:06:[address] [facility] [facility] 2019-12-06 2019-12-06 [facility] 30 [id number] Common 11:59:00 11:59:[address] [employer] [address] [employer] [address] [facility] 2019-11-23 2019-11-25 Outpatient [facility] 064 [id number] [id number] [place] 00:00:00 00:00:00 YULISA [address] 2019-10-11 2019-10-11 Outpatient [facility] 29 [id number] Common 09:00:00 09:00:00 5minutes [facility] it Drive [facility] Results Test Description Test Time Test Comments Results Result Comments Source GLUCOSE BEDSIDE 2022-04-30 11:22:00 Test Item Value Reference Range Interpretation Comme nts GLUCOSE BEDSIDE (test code = 307 MG/DL 70-110 H 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 by 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 [facility]) [facility] GLUCOSE [id number] 08:55:00 Test Item Value Reference Range Interpretation Comments GLUCOSE BEDSIDE (test 233 MG/DL 70-110 H Perfor med by certified code = GLUBED) 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 [facility] GLUCOSE [id number] 07:17:00 Test Item Value Reference Range Interpretation Comments GLUCOSE BEDSIDE (test 228 MG/DL 70-110 H Perfor med by certified code = GLUBED) 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 [facility] BASIC METABOLIC [id number] 07:02:00 Test Item Value Reference Range Interpretation Comments SODIUM (test code = NA) 135 mEq/L 134-147 N POTASSIUM (test code = 4.4 mEq/L 3.4-5.0 N K) CHLORIDE (test code = 96 mEq/L 100-108 L CL) CARBON DIOXIDE (test 24 mEq/l 21-33 N code = CO2) ANION GAP (test code = 19 0-20 N GAP) GLUCOSE (test code = 207 mg/dL 70-110 H GLU) BLOOD UREA NITROGEN 43 mg/dL 7-18 H (test code = BUN) GLOMERULAR FILTRATION 5.2 80-90 L Units of measure = RATE (test code = GFR) ml/mi n/1.73 m2 CREATININE (test code = 7.8 mg/dL 0.6-1.3 H CREAT) CALCIUM (test code = 7.8 mg/dL 8.0-10.5 L CA) [id number] 07:02:00 Test Item Value Reference Range Interpretation Comments PHOSPHOROUS (test code = PHOS) 5.4 MG/DL 2.5-4.9 H [id number] 07:02:00 Test Item Value Reference Range Interpretation Comments MAGNESIUM (test code = MAG) 2.09 mg/dL 1.80-2.40 N CBC W/AUTO [id number] 06:48:00 Test Item Value Reference Range Interpretation Comments WHITE BLOOD CELL (test code = 5.2 x10 3/uL 4.5-11.0 N WBC) RED BLOOD CELL (test code = 4.76 x10 6/uL 3.54-5.02 N RBC) HEMOGLOBIN (test code = HGB) 11.8 g/dL 11.0-15.0 N HEMATOCRIT (test code = HCT) 39.5 % 33.0-45.0 N MEAN CELL VOLUME (test code = 83.0 fL 81.0-99.0 N MCV) MEAN CELL HGB (test code = MCH) 24.8 pg 27.0-33.0 L MEAN CELL HGB CONCETRATION 29.9 g/dL 33.0-37.0 L (test code = MCHC) RED CELL DISTRIBUTION WIDTH CV 17.6 % 11.5-14.5 H (test code = RDW) RED CELL DISTRIBUTION WIDTH SD 53.1 fL 37.0-54.0 N (test code = RDW-SD) PLATELET COUNT (test code = 263 x10 3/uL 150-400 N PLT) MEAN PLATELET VOLUME (test code 10.9 fL 7.0-9.0 H = MPV) NEUTROPHIL % (test code = NT%) 59.3 % 56.0-77.0 N IMMATURE GRANULOCYTE % (test 0.6 % 0.0-2.0 N code = IG%) LYMPHOCYTE % (test code = LY%) 27.3 % 14.0-32.0 N MONOCYTE % (test code = MO%) 9.9 % 4.8-9.0 H EOSINOPHIL % (test code = EO%) 2.3 % 0.3-3.7 N BASOPHIL % (test code = BA%) 0.6 % 0.0-2.0 N NUCLEATED RBC % (test code = 0.0 % 0-0 N NRBC%) NEUTROPHIL # (test code = NT#) 3.07 x10 3/uL 2.0-7.6 N IMMATURE GRANULOCYTE # (test 0.03 x10 3/uL 0.00-0.03 N code = IG#) LYMPHOCYTE # (test code = LY#) 1.41 x10 3/uL 1.0-3.8 N MONOCYTE # (test code = MO#) 0.51 x10 3/uL 0.1-0.8 N EOSINOPHIL # (test code = EO#) 0.12 x10 3/uL 0.0-0.2 N BASOPHIL # (test code = BA#) 0.03 x10 3/uL 0.0-0.2 N NUCLEATED RBC # (test code = 0.00 x10 3/uL 0.0-0.1 N NRBC#) MANUAL DIFF REQUIRED (test code NO = MDIFF) - XR CHEST 1 [id number] 00:00:00 [facility] L[facility]EN[facility]: TADUBALDOPAOLA Elin : 1955 Sex: F FAX: Az Torres [phone] [place]: St: [facility] FAX: Rose Marie Stewart [phone] -- Name: PAOLA MISHRA [facility] [place] : 1955 Age/S: 66/F [address] [place] [address] Unit #: [id number] Loc: [id number] [place] [address] Phys: Az Guerrero MD Acct: [id number] Dis Date: Status: ADM IN PHONE #: Exam Date: 04/30/2022936 FAX #: [phone] Reason: Post Op in PACU EXAMS: CPT CODE: [id number] XR CHEST 1 V 79480 PROCEDURE INFORMATION: Exam: XR Chest Exam date and time: 04/30/2022 8:42AM Age: 66 years old Clinical indication: Screening exam; Other screening; Additional info: Post op in pacu TECHNIQUE: Imaging protocol: Radiologic exam of the chest. Views: 1 view. COMPARISON: CR XR CHEST 1V 04/23/2022 9:09 PM FINDINGS: Tubes, catheters and devices: Right IJ hemodialysis catheter is in place. The catheter terminates in the region of the distal SVC. Lungs: Mild scarring in the left lung base. No acute airspace disease. Improved aeration lungs with decreasing vascular congestion. Pleural spaces: Unremarkable. No pleural effusion. No pneumothorax. Heart/Mediastinum: Heart size is within normal limits. Vasculature is unremarkable. Bones/joints: Unremarkable. IMPRESSION: 1. Interval placement right IJ hemodialysis catheter as described . 2. Improved aeration lungs with decreasing pulmonary vascular congestion. at 1044 Reported and signed by: Emre Prakash M.D. CC: Az Guerrero MD; Marcella Stewart MD Technologist: Rosa M Bedoya RT(R); RT Nano(R) Trnscrd Date/Time/By: 04/30/2022(1502) : By: [email or web address] Orig Print D/T: S: 04/30/2022 (4972) PAGE 1 Signed ReportGLUCOSE [id number] 16:05:00 Test Item Value Reference Range Interpretation Comments GLUCOSE BEDSIDE (test 200 MG/DL 70-110 H Perfor med by certified code = GLUBED) 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 [facility] GLUCOSE [id number] 11:28:00 Test Item Value Reference Range Interpretation Comments GLUCOSE BEDSIDE (test 217 MG/DL 70-110 H Perfor med by certified code = GLUBED) 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 [facility] GLUCOSE [id number] 08:00:00 Test Item Value Reference Range Interpretation Comments GLUCOSE BEDSIDE (test 289 MG/DL 70-110 H Perfor med by certified code = GLUBED) 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 [facility] GLUCOSE [id number] 20:06:00 Test Item Value Reference Range Interpretation Comments GLUCOSE BEDSIDE (test 223 MG/DL 70-110 H Perfor med by certified code = GLUBED) 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 [facility] GLUCOSE [id number] 16:28:00 Test Item Value Reference Range Interpretation Comments GLUCOSE BEDSIDE (test 160 MG/DL 70-110 H Perfor med by certified code = GLUBED) 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 [facility] GLUCOSE [id number] 11:03:00 Test Item Value Reference Range Interpretation Comments GLUCOSE BEDSIDE (test 192 MG/DL 70-110 H Perfor med by certified code = GLUBED) 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 [facility] BASIC METABOLIC [id number] 07:39:00 Test Item Value Reference Range Interpretation Comments SODIUM (test code = NA) 134 mEq/L 134-147 N POTASSIUM (test code = 4.4 mEq/L 3.4-5.0 N K) CHLORIDE (test code = 96 mEq/L 100-108 L CL) CARBON DIOXIDE (test 24 mEq/l 21-33 N code = CO2) ANION GAP (test code = 19 0-20 N GAP) GLUCOSE (test code = 234 mg/dL 70-110 H GLU) BLOOD UREA NITROGEN 34 mg/dL 7-18 H (test code = BUN) GLOMERULAR FILTRATION 5.4 80-90 L Units of measure = RATE (test code = GFR) ml/mi n/1.73 m2 CREATININE (test code = 7.6 mg/dL 0.6-1.3 H CREAT) CALCIUM (test code = 7.7 mg/dL 8.0-10.5 L CA) [id number] 07:39:00 Test Item Value Reference Range Interpretation Comments PHOSPHOROUS (test code = PHOS) 7.4 MG/DL 2.5-4.9 H [id number] 07:39:00 Test Item Value Reference Range Interpretation Comments MAGNESIUM (test code = MAG) 2.22 mg/dL 1.80-2.40 N CBC W/AUTO [id number] 07:26:00 Test Item Value Reference Range Interpretation Comments WHITE BLOOD CELL (test code = 5.0 x10 3/uL 4.5-11.0 WBC) RED BLOOD CELL (test code = 4.61 x10 6/uL 3.54-5.02 N RBC) HEMOGLOBIN (test code = HGB) 11.6 g/dL 11.0-15.0 N HEMATOCRIT (test code = HCT) 38.3 % 33.0-45.0 N MEAN CELL VOLUME (test code = 83.1 fL 81.0-99.0 N MCV) MEAN CELL HGB (test code = MCH) 25.2 pg 27.0-33.0 L MEAN CELL HGB CONCETRATION 30.3 g/dL 33.0-37.0 L (test code = MCHC) RED CELL DISTRIBUTION WIDTH CV 17.8 % 11.5-14.5 H (test code = RDW) RED CELL DISTRIBUTION WIDTH SD 53.1 fL 37.0-54.0 N (test code = RDW-SD) PLATELET COUNT (test code = 230 x10 3/uL 150-400 N PLT) MEAN PLATELET VOLUME (test code 11.0 fL 7.0-9.0 H = MPV) NEUTROPHIL % (test code = NT%) 68.9 % 56.0-77.0 N IMMATURE GRANULOCYTE % (test 0.2 % 0.0-2.0 N code = IG%) LYMPHOCYTE % (test code = LY%) 18.9 % 14.0-32.0 N MONOCYTE % (test code = MO%) 10.2 % 4.8-9.0 H EOSINOPHIL % (test code = EO%) 1.2 % 0.3-3.7 N BASOPHIL % (test code = BA%) 0.6 % 0.0-2.0 N NUCLEATED RBC % (test code = 0.0 % 0-0 N NRBC%) NEUTROPHIL # (test code = NT#) 3.46 x10 3/uL 2.0-7.6 N IMMATURE GRANULOCYTE # (test 0.01 x10 3/uL 0.00-0.03 N code = IG#) LYMPHOCYTE # (test code = LY#) 0.95 x10 3/uL 1.0-3.8 L MONOCYTE # (test code = MO#) 0.51 x10 3/uL 0.1-0.8 N EOSINOPHIL # (test code = EO#) 0.06 x10 3/uL 0.0-0.2 N BASOPHIL # (test code = BA#) 0.03 x10 3/uL 0.0-0.2 N NUCLEATED RBC # (test code = 0.00 x10 3/uL 0.0-0.1 N NRBC#) MANUAL DIFF REQUIRED (test code NO = MDIFF) GLUCOSE [id number] 07:20:00 Test Item Value Reference Range Interpretation Comments GLUCOSE BEDSIDE (test 229 MG/DL 70-110 H Perfor med by certified code = GLUBED) 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 15-20 mcg/mL - Bacteremia, Infective Endocarditis, Meningitis, Osteomyelitis, Pneumonia, Lanette re Skin/Soft-Tissu e Infection, Spin al Abscess. 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 [facility] GLUCOSE [id number] 11:42:00 Test Item Value Reference Range Interpretation Comments GLUCOSE BEDSIDE (test 234 MG/DL 70-110 H Perfor med by certified code = GLUBED) 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 [facility] BASIC METABOLIC [id number] 07:55:00 Test Item Value Reference Range Interpretation Comments SODIUM (test code = NA) 138 mEq/L 134-147 N POTASSIUM (test code = 4.2 mEq/L 3.4-5.0 N K) CHLORIDE (test code = 96 mEq/L 100-108 L CL) CARBON DIOXIDE (test 25 mEq/l 21-33 N code = CO2) ANION GAP (test code = 21 0-20 H GAP) GLUCOSE (test code = 231 mg/dL 70-110 H GLU) BLOOD UREA NITROGEN 22 mg/dL 7-18 H (test code = BUN) GLOMERULAR FILTRATION 7.2 80-90 L Units of measure = RATE (test code = GFR) ml/mi n/1.73 m2 CREATININE (test code = 5.9 mg/dL 0.6-1.3 H CREAT) CALCIUM (test code = 8.4 mg/dL 8.0-10.5 N CA) GLUCOSE [id number] 07:24:00 Test Item Value Reference Range Interpretation Comments GLUCOSE BEDSIDE (test 207 MG/DL 70-110 H [facility] med by certified code = GLUBED) 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 [facility] CBC W/AUTO [id number] 07:14:00 Test Item Value Reference Range Interpretation Comments WHITE BLOOD CELL (test code = 3.2 x10 3/uL 4.5-11.0 L WBC) RED BLOOD CELL (test code = 5.07 x10 6/uL 3.54-5.02 H RBC) HEMOGLOBIN (test code = HGB) 12.5 g/dL 11.0-15.0 N HEMATOCRIT (test code = HCT) 41.6 % 33.0-45.0 N MEAN CELL VOLUME (test code = 82.1 fL 81.0-99.0 N MCV) MEAN CELL HGB (test code = MCH) 24.7 pg 27.0-33.0 L MEAN CELL HGB CONCETRATION 30.0 g/dL 33.0-37.0 L (test code = MCHC) RED CELL DISTRIBUTION WIDTH CV 17.4 % 11.5-14.5 H (test code = RDW) RED CELL DISTRIBUTION WIDTH SD 52.2 fL 37.0-54.0 N (test code = RDW-SD) PLATELET COUNT (test code = 197 x10 3/uL 150-400 N PLT) MEAN PLATELET VOLUME (test code 10.2 fL 7.0-9.0 H = MPV) NEUTROPHIL % (test code = NT%) 75.1 % 56.0-77.0 N IMMATURE GRANULOCYTE % (test 0.3 % 0.0-2.0 N code = IG%) LYMPHOCYTE % (test code = LY%) 14.2 % 14.0-32.0 N MONOCYTE % (test code = MO%) 10.1 % 4.8-9.0 H EOSINOPHIL % (test code = EO%) 0.0 % 0.3-3.7 L BASOPHIL % (test code = BA%) 0.3 % 0.0-2.0 N NUCLEATED RBC % (test code = 0.0 % 0-0 N NRBC%) NEUTROPHIL # (test code = NT#) 2.38 x10 3/uL 2.0-7.6 N IMMATURE GRANULOCYTE # (test 0.01 x10 3/uL 0.00-0.03 N code = IG#) LYMPHOCYTE # (test code = LY#) 0.45 x10 3/uL 1.0-3.8 L MONOCYTE # (test code = MO#) 0.32 x10 3/uL 0.1-0.8 N EOSINOPHIL # (test code = EO#) 0.00 x10 3/uL 0.0-0.2 N BASOPHIL # (test code = BA#) 0.01 x10 3/uL 0.0-0.2 N NUCLEATED RBC # (test code = 0.00 x10 3/uL 0.0-0.1 N NRBC#) MANUAL DIFF REQUIRED (test code NO = MDIFF) ACUTE HEPATITIS [id number] 05:10:00 Test Item Value Reference Range Interpretation Comments AB HEPATITIS A IGM (test NON REACTIVE INDEX NON REACT. code = HAVMAB) AG HEPATITIS B SURFACE NON REACTIVE INDEX NonReactive (test code = HBSAG) AB HEPATITIS B CORE IGM NON REACTIVE INDEX NON REACT. (test code = HBCMAB) AB HEPATITIS C (test code NON REACTIVE INDEX NON REACT. = HCVAB) COMMENTS: At start of hemodialysisAB HEPATITIS B [id number] 05:10:00 Test Item Value Reference Range Interpretation Comments AB HEPATITIS B > 1000.0 mIU/mL See_Comment Status of Immunity SURFACE (test code Anti-HBs Level = HBSAB) --- I ncons istent with Imm unity 0.0 - 9.9Consis tent with Immunity >9.9Performed A t: HD [facility] [address] [id number] Ha Weiss MD Ph:[phone] [Automated mess age] The system [employer] generated this result transmit carolina reference range : Immunity>9.9. T he reference range was not used to interpret this result as normal/abnormal . 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 [facility] BASIC METABOLIC [id number] 07:45:00 Test Item Value Reference Range Interpretation Comments SODIUM (test code = NA) 139 mEq/L 134-147 N POTASSIUM (test code = 4.2 mEq/L 3.4-5.0 N K) CHLORIDE (test code = 101 mEq/L 100-108 N CL) CARBON DIOXIDE (test 23 mEq/l 21-33 N code = CO2) ANION GAP (test code = 19 0-20 N GAP) GLUCOSE (test code = 104 mg/dL 70-110 GLU) BLOOD UREA NITROGEN 32 mg/dL 7-18 H (test code = BUN) GLOMERULAR FILTRATION 4.5 80-90 L Units of measure = RATE (test code = GFR) ml/mi n/1.73 m2 CREATININE (test code = 8.8 mg/dL 0.6-1.3 H CREAT) CALCIUM (test code = 8.3 mg/dL 8.0-10.5 N CA) GLUCOSE [id number] 07:21:00 Test Item Value Reference Range Interpretation Comments GLUCOSE BEDSIDE (test 119 MG/DL 70-110 H Perfor med by certified code = GLUBED) 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 [facility] CBC W/AUTO [id number] 07:14:00 Test Item Value Reference Range Interpretation Comments WHITE BLOOD CELL (test code = 4.3 x10 3/uL 4.5-11.0 L WBC) RED BLOOD CELL (test code = 4.75 x10 6/uL 3.54-5.02 N RBC) HEMOGLOBIN (test code = HGB) 12.0 g/dL 11.0-15.0 N HEMATOCRIT (test code = HCT) 40.0 % 33.0-45.0 N MEAN CELL VOLUME (test code = 84.2 fL 81.0-99.0 N MCV) MEAN CELL HGB (test code = MCH) 25.3 pg 27.0-33.0 L MEAN CELL HGB CONCETRATION 30.0 g/dL 33.0-37.0 L (test code = MCHC) RED CELL DISTRIBUTION WIDTH CV 18.0 % 11.5-14.5 H (test code = RDW) RED CELL DISTRIBUTION WIDTH SD 54.8 fL 37.0-54.0 H (test code = RDW-SD) PLATELET COUNT (test code = 202 x10 3/uL 150-400 N PLT) MEAN PLATELET VOLUME (test code 11.0 fL 7.0-9.0 H = MPV) NEUTROPHIL % (test code = NT%) 62.0 % 56.0-77.0 N IMMATURE GRANULOCYTE % (test 0.2 % 0.0-2.0 N code = IG%) LYMPHOCYTE % (test code = LY%) 23.5 % 14.0-32.0 N MONOCYTE % (test code = MO%) 13.1 % 4.8-9.0 H EOSINOPHIL % (test code = EO%) 0.7 % 0.3-3.7 N BASOPHIL % (test code = BA%) 0.5 % 0.0-2.0 N NUCLEATED RBC % (test code = 0.0 % 0-0 N NRBC%) NEUTROPHIL # (test code = NT#) 2.66 x10 3/uL 2.0-7.6 N IMMATURE GRANULOCYTE # (test 0.01 x10 3/uL 0.00-0.03 N code = IG#) LYMPHOCYTE # (test code = LY#) 1.01 x10 3/uL 1.0-3.8 N MONOCYTE # (test code = MO#) 0.56 x10 3/uL 0.1-0.8 N EOSINOPHIL # (test code = EO#) 0.03 x10 3/uL 0.0-0.2 N BASOPHIL # (test code = BA#) 0.02 x10 3/uL 0.0-0.2 N NUCLEATED RBC # (test code = 0.00 x10 3/uL 0.0-0.1 N NRBC#) MANUAL DIFF REQUIRED (test code NO = MDIFF) - MRI LOW EXT W/O CONT [id number] 00:00:00 [facility] 1955 Sex: F FAX: Rose Marie Stewart [phone] [place]: St: ADM FAX: Mellissa Ng MD [phone] -- Name: UBLADO MISHRAARITA [facility] : 1955 Age/S: 66/F [address] [place] [address] Unit #: [id number] Loc: G.6605 [place] [address] Phys: Mellissa Suarez MD Acct: [id number] Dis Date: Status: ADM IN PHONE #: Exam Date: 04/26/2022 1148 FAX #: [phone] Reason: rt heel wound EXAMS: CPT CODE: [id number] MRI LOW EXT W/[place] [id number] PROCEDURE INFORMATION: Exam: MR Right Lower Extremity Without Contrast; Forefoot Exam date and time: 04/26/2022 11:05 AM Age: 66 years old Clinical indication: Other:RT heel wound TECHNIQUE: Imaging protocol: MR of the Right foot without contrast. Exam focused on the forefoot. COMPARISON: CR XR FOOT 3 + V RT 04/25/2022 3:56 PM FINDINGS: Bones and joints: No evidencefor acute fracture. Marrow signal is within normal limits. Mild tibiotalar degenerative changes. Small dorsal spurs. Small tibiotalar joint effusion LIGAMENTS: Collateral ligaments of digits: Unremarkab le. No evidence of tear. TENDONS: Flexor tendons of foot: Unremarkable. No evidence of tear. Extensor tendons of foot: Unremarkable. No evidence of tear. Muscles: Atrophy of the musculature of the footnoted. Plantar fascia: Thickening of the central cord of the plantar fascia without tear. Small plantar calcaneal enthesophyte. Soft tissues: Small wound along the plantar aspect of the heel. There isno evidence for abscess. Remaining soft tissues appear unremarkable. IMPRESSION: 1. Small soft tissue wound plantar aspect of the heel. Negative for abscess or osteomyelitis. 2. Chronic plantar fasciitis without tear. 3. Small tibiotalar joint effusion. Mild degenerative changes. 4. Atrophy of the musc ulature of the foot likely chronic denervation. at 1312 Reported and signed by: Emre Prakash M.D. CC: Marcella Stewart MD; Mellissa Suarez MD Technologist: RT Lissa(R)(CT) Trnscrd Date/Time/By: 04/26/2022 (1311) : By: [email or web address] Orig Print D/T: S: 04/26/2022 (1311) PAGE 1 Signed Report- XR FOOT 3 + V [id number] 00:00:00 [facility] : 1955 Sex: F FAX: Rose Marie Stewart [phone] [place]: St: [facility] FAX: Xavi Sloan DPM [phone] ------- Name: PAOLA MISHRA [facility] : 1955 Age/S: 66/F [address] [place] [address] Unit #: [id number] Loc: G.6605 [place] [address] Phys: Xavi Sloan DPM Acct: [id number] Dis Date: Status: ADM IN PHONE #: [phone] Exam Date: 04/25/2022 1558 FAX #: [phone] Reason: chronic ulcer right heel EXAMS: CPT CODE: [id number] XR FOOT 3 + V RT [id number] PROCEDURE INFORMATION: Exam: XR Right Foot Exam date and time: 04/25/2022 3:56 PM Age: 66 years old Clinical indication: Other: Chronic ulcer right heel TECHNIQUE: Imaging protocol: Radiologic exam of the Right foot. Views: 3 or more views. AP Oblique Lateral COMPARISON:CR XR ANKLE 3 + V RT 04/24/2022 4:19 PM FINDINGS: Bones/joints: No acute fractures or dislocations are seen. There is grossly no radiographic evidence of osteomyelitis. The joint spaces are grossly maintained. Soft tissues: No radiopaque foreign bodies or subcutaneous emphysema are seen. Vasculature: Regional vascular calcifications are noted. IMPRESSION: No acute bony abnormalities. ElectronicallySigned by Freddy Johnson on 04/26/2022 at 0558 Reported and signed by: Nick Johnson M.D. 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 Erika t performance dep ends on theamount of vi vianca (antigen) in th e sample.This erika t has not been FDA cleare d or approved; the t est hasbeen authori zed by FDA under an Em ergency Use Authorizati on(EUA) for use by labo ratories certified under the CLIA thatmeet the requirements to perform moderate, high or waivedcomplexit y tests. 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3 H CREAT) CALCIUM (test code = 8.1 mg/dL 8.0-10.5 N CA) CBC W/AUTO [id number] 07:33:00 Test Item Value Reference Range Interpretation Comments WHITE BLOOD CELL (test code = 4.4 x10 3/uL 4.5-11.0 L WBC) RED BLOOD CELL (test code = 4.92 x10 6/uL 3.54-5.02 N RBC) HEMOGLOBIN (test code = HGB) 12.4 g/dL 11.0-15.0 N HEMATOCRIT (test code = HCT) 41.4 % 33.0-45.0 N MEAN CELL VOLUME (test code = 84.1 fL 81.0-99.0 N MCV) MEAN CELL HGB (test code = MCH) 25.2 pg 27.0-33.0 L MEAN CELL HGB CONCETRATION 30.0 g/dL 33.0-37.0 L (test code = MCHC) RED CELL DISTRIBUTION WIDTH CV 18.1 % 11.5-14.5 H (test code = RDW) RED CELL DISTRIBUTION WIDTH SD 54.9 fL 37.0-54.0 H (test code = RDW-SD) PLATELET COUNT (test code = 179 x10 3/uL 150-400 N PLT) MEAN PLATELET VOLUME (test code 10.1 fL 7.0-9.0 H = MPV) NEUTROPHIL % (test code = NT%) 64.4 % 56.0-77.0 N IMMATURE GRANULOCYTE % (test 0.2 % 0.0-2.0 N code = IG%) LYMPHOCYTE % (test code = LY%) 19.3 % 14.0-32.0 N MONOCYTE % (test code = MO%) 14.2 % 4.8-9.0 H EOSINOPHIL % (test code = EO%) 1.4 % 0.3-3.7 N BASOPHIL % (test code = BA%) 0.5 % 0.0-2.0 N NUCLEATED RBC % (test code = 0.0 % 0-0 N NRBC%) NEUTROPHIL # (test code = NT#) 2.81 x10 3/uL 2.0-7.6 N IMMATURE GRANULOCYTE # (test 0.01 x10 3/uL 0.00-0.03 N code = IG#) LYMPHOCYTE # (test code = LY#) 0.84 x10 3/uL 1.0-3.8 L MONOCYTE # (test code = MO#) 0.62 x10 3/uL 0.1-0.8 N EOSINOPHIL # (test code = EO#) 0.06 x10 3/uL 0.0-0.2 N BASOPHIL # (test code = BA#) 0.02 x10 3/uL 0.0-0.2 N NUCLEATED RBC # (test code = 0.00 x10 3/uL 0.0-0.1 N NRBC#) MANUAL DIFF REQUIRED (test code NO = MDIFF) GLUCOSE [id number] 07:24:00 Test Item Value Reference Range Interpretation Comments GLUCOSE BEDSIDE (test 164 MG/DL 70-110 H Perfor med by certified code = GLUBED) 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 [facility] - XR ANKLE 3 + V [id number] 00:00:00 [facility] : 1955 Sex: F FAX: Rose Marie Stewart [phone] [place]: St: ADM FAX: Xavi Sloan Doc [phone] ------- Name: PAOLA MISHRA [facility] [place] : 1955 Age/S: 66/F [address] [place] [address] Unit #: [id number] Loc: [address] [place] [address] Phys: Xavi Sloan DPM Acct: [id number] Dis Date: Status: ADM IN PHONE #: [phone] Exam Date: 04/24/2022 1619 FAX #: [phone] Reason: chronic ulcer right heel EXAMS: CPT CODE: [id number] XR ANKLE 3 + V RT [id number] PROCEDURE INFORMATION: Exam: XR Right Ankle Exam date and time: 04/24/2022 4:19 PM Age: 66 years old Clinical indication: Other: Chronic ulcer right heel TECHNIQUE: Imaging protocol: Radiologic exam of the Right ankle. Views: 3 or more views. AP Oblique Lateral COMPARISON: No relevant prior studies available. FINDINGS: Bones/joints: Bones are osteopenic. No fracture or dislocation. Ankle mortise is intact. No destructive osseous lesion. No osseous erosions. Soft tissues: There is soft tissue swelling. There are no radiopaque foreign bodies. Vasculature: Severe atherosclerotic vascular calcification. Notes: If there is further concern, recommend follow-up radiographs or MRI for complete assessment. IMPRESSION: 1. No acute abnormality. 2. No radiographic evidence forosteomyelitis. at 0748 Reported and signed by: Ivette Milligan M.D. CC: Marcella Stewart MD; Xavi Sloan DPM Technologist: Abimbola Huitron, RT(R); RT Felicia(R) Trnscrd Date/Time/By: 04/25/2022 (0748) : By: [email or web address] Orig Print D/T: S: 04/25/2022 (0793) PAGE 1 Signed Report- DOP ART [facility] 2022-04-25 00:00:00 [facility]ER[facility]: PAOLA MISHRA : 1955 Sex: F Name: PAOLA MISHRA [facility] [place] : 1955 Age/S: 66 / F [address] [place] [address] Blvd Unit #: [id number] Loc: [place] [address] Phys: Xavi Sloan DPDoc Acct: [id number] Dis Date: Status: ADM IN PHONE #: [phone] Exam Date: 04/25/2022 1103 FAX #: [phone] Reason: chronic wound rightheel EXAMS: CPT CODE: [id number] DOP ART SGL LEVEL REGINE [id number] PROCEDURE INFORMATION: Exam: US Duplex Lower Extremity Arteries Exam date and time: 04/25/2022 10:31 AM Age: 66 years old Clinical indication:Other: Wounds; Additional info: Chronic wound right heel TECHNIQUE: Imaging protocol: Real-time ultrasound scan of the arteries of the bilateral lower extremities with 2-D peraza scale, color Doppler flow and spectral waveform analysis. Images documented and saved. COMPARISON: CR XR ANKLE 3 + V RT 04/24/2022 4:19 PM FINDINGS: Right common femoral artery: 87 cm/s multiphasic waveform Right proximal superficial femoral artery: 50 cm/s multiphasic waveform Right mid superficial femoral artery: 98 cm/s multiphasic waveform Right distal superficial femoral artery: 72 cm/s multiphasic waveform Right popliteal artery: 150 cm/s multiphasic waveform Right posterior tibial artery: 99 cm/s monophasic waveformRight dorsalis pedis artery: 57 cm/s monophasic waveform Left common femoral artery: 107 cm/s multiphasic waveform Left proximal superficial femoral artery: 95 cm/s multiphasic waveform Left mid superficial femoral artery: 103 cm/s multiphasic waveform Left distal superficial femoral artery: 89 cm/s multiphasic waveform Left popliteal artery: 91 cm/s multiphasic waveform Left posterior tibial artery: 73 cm/s monophasic waveform Left dorsalis pedis artery: 57 cm/s monophasic waveform RIGHT LOWER EXTREMITY4 Right brachial artery: 154 mmHg Ankle, posterior tibial artery: 160 mmHg, index 1.04 Ankle, dorsalis pedis artery: > 254 mmHg, NC LEFT LOWER EXTREMITY: Left brachial artery: 154 mmHg Ankle, posterior tibial artery: >254, NC Ankle, dorsalis pedis artery: 158 mmHg, index 1.03 IMPRESSION: 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 at 1130 Reported and signed by: Ivette Villegas M.D. 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 [facility] SED RATE [id number] 18:14:00 Test Item Value Reference Range Interpretation Comments SED RATE WESTERGREN (test code = 14 mm/hr 0-20 N SEDW) GLUCOSE [id number] 16:06:00 Test Item Value Reference Range Interpretation Comments GLUCOSE BEDSIDE (test 205 MG/DL 70-110 H Perfor med by certified code = GLUBED) 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 [facility] GLUCOSE [id number] 11:52:00 Test Item Value Reference Range Interpretation Comments GLUCOSE BEDSIDE (test 172 MG/DL 70-110 H Perfor med by certified code = GLUBED) 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 [facility] BASIC METABOLIC [id number] 08:33:00 Test Item Value Reference Range Interpretation Comments SODIUM (test code = NA) 135 mEq/L 134-147 N POTASSIUM (test code = 4.4 mEq/L 3.4-5.0 K) CHLORIDE (test code = 98 mEq/L 100-108 L CL) CARBON DIOXIDE (test 27 mEq/l 21-33 N code = CO2) ANION GAP (test code = 14 0-20 N GAP) GLUCOSE (test code = 176 mg/dL 70-110 H GLU) BLOOD UREA NITROGEN 48 mg/dL 7-18 H (test code = BUN) GLOMERULAR FILTRATION 4.9 80-90 L Units of measure = RATE (test code = GFR) ml/mi n/1.73 m2 CREATININE (test code = 8.3 mg/dL 0.6-1.3 H CREAT) CALCIUM (test code = 8.0 mg/dL 8.0-10.5 N CA) CBC W/AUTO [id number] 07:13:00 Test Item Value Reference Range Interpretation Comments WHITE BLOOD CELL (test code = 3.5 x10 3/uL 4.5-11.0 L WBC) RED BLOOD CELL (test code = 4.64 x10 6/uL 3.54-5.02 N RBC) HEMOGLOBIN (test code = HGB) 11.7 g/dL 11.0-15.0 N HEMATOCRIT (test code = HCT) 38.3 % 33.0-45.0 N MEAN CELL VOLUME (test code = 82.5 fL 81.0-99.0 N MCV) MEAN CELL HGB (test code = MCH) 25.2 pg 27.0-33.0 L MEAN CELL HGB CONCETRATION 30.5 g/dL 33.0-37.0 L (test code = MCHC) RED CELL DISTRIBUTION WIDTH CV 17.9 % 11.5-14.5 H (test code = RDW) RED CELL DISTRIBUTION WIDTH SD 53.7 fL 37.0-54.0 N (test code = RDW-SD) PLATELET COUNT (test code = 226 x10 3/uL 150-400 N PLT) MEAN PLATELET VOLUME (test code 10.2 fL 7.0-9.0 H = MPV) NEUTROPHIL % (test code = NT%) 66.1 % 56.0-77.0 N IMMATURE GRANULOCYTE % (test 0.3 % 0.0-2.0 N code = IG%) LYMPHOCYTE % (test code = LY%) 17.0 % 14.0-32.0 N MONOCYTE % (test code = MO%) 12.7 % 4.8-9.0 H EOSINOPHIL % (test code = EO%) 3.1 % 0.3-3.7 N BASOPHIL % (test code = BA%) 0.8 % 0.0-2.0 N NUCLEATED RBC % (test code = 0.0 % 0-0 N NRBC%) NEUTROPHIL # (test code = NT#) 2.33 x10 3/uL 2.0-7.6 N IMMATURE GRANULOCYTE # (test 0.01 x10 3/uL 0.00-0.03 N code = IG#) LYMPHOCYTE # (test code = LY#) 0.60 x10 3/uL 1.0-3.8 L MONOCYTE # (test code = MO#) 0.45 x10 3/uL 0.1-0.8 N EOSINOPHIL # (test code = EO#) 0.11 x10 3/uL 0.0-0.2 N BASOPHIL # (test code = BA#) 0.03 x10 3/uL 0.0-0.2 N NUCLEATED RBC # (test code = 0.00 x10 3/uL 0.0-0.1 N NRBC#) MANUAL DIFF REQUIRED (test code NO = MDIFF) GLUCOSE [id number] 07:11:00 Test Item Value Reference Range Interpretation Comments GLUCOSE BEDSIDE (test 168 MG/DL 70-110 H Perfor med by certified code = GLUBED) 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 [facility] GLUCOSE [id number] 03:47:00 Test Item Value Reference Range Interpretation Comments GLUCOSE BEDSIDE (test 199 MG/DL 70-110 H Perfor med by certified code = GLUBED) 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 YES CHLORIDE (test code = 95 mEq/L 100-108 L CL) CARBON DIOXIDE (test 24 mEq/l 21-33 N code = CO2) ANION GAP (test code = 16 0-20 N GAP) GLUCOSE (test code = 273 mg/dL 70-110 H GLU) BLOOD UREA NITROGEN 81 mg/dL 7-18 H (test code = BUN) GLOMERULAR FILTRATION 3.5 80-90 L Units of measure = RATE (test code = GFR) ml/mi n/1.73 m2 CREATININE (test code 11.0 mg/dL 0.6-1.3 H = CREAT) CALCIUM (test code = 8.0 mg/dL 8.0-10.5 N CA) HEPATIC FUNCTION [id number] 13:13:00 Test Item Value Reference Range Interpretation Comments TOTAL PROTEIN (test code = PROT) 7.7 g/dL 6.4-8.2 N ALBUMIN (test code = ALB) 3.70 g/dL 3.4-5.0 N BILIRUBIN TOTAL (test code = < 0.20 mg/dL 0.0-1.0 N BILT) BILIRUBIN DIRECT (test code = < 0.10 MG/DL 0.0-0.30 N BILD) BILIRUBIN INDIRECT (test code = 0.10 MG/DL BILIND) SGOT/AST (test code = AST) 17 IUnit/L 15-37 N SGPT/ALT (test code = ALT) < 7 IUnit/L 30-65 L ALKALINE PHOSPHATASE TOTAL (test 85 IUnit/L 20-125 N code = ALKP) LACTIC [id number] 13:08:00 Test Item Value Reference Range Interpretation Comments LACTIC ACID (test code = LACT) 0.9 mmol/L 0.4-1.9 N CBC W/AUTO [id number] 12:55:00 Test Item Value Reference Range Interpretation Comments WHITE BLOOD CELL (test code = 5.5 x10 3/uL 4.5-11.0 N WBC) RED BLOOD CELL (test code = 4.48 x10 6/uL 3.54-5.02 N RBC) HEMOGLOBIN (test code = HGB) 11.4 g/dL 11.0-15.0 N HEMATOCRIT (test code = HCT) 37.6 % 33.0-45.0 N MEAN CELL VOLUME (test code = 83.9 fL 81.0-99.0 N MCV) MEAN CELL HGB (test code = MCH) 25.4 pg 27.0-33.0 L MEAN CELL HGB CONCETRATION 30.3 g/dL 33.0-37.0 L (test code = MCHC) RED CELL DISTRIBUTION WIDTH CV 18.2 % 11.5-14.5 H (test code = RDW) RED CELL DISTRIBUTION WIDTH SD 54.7 fL 37.0-54.0 H (test code = RDW-SD) PLATELET COUNT (test code = 221 x10 3/uL 150-400 N PLT) MEAN PLATELET VOLUME (test code 10.4 fL 7.0-9.0 H = MPV) NEUTROPHIL % (test code = NT%) 68.7 % 56.0-77.0 N IMMATURE GRANULOCYTE % (test 0.4 % 0.0-2.0 N code = IG%) LYMPHOCYTE % (test code = LY%) 17.6 % 14.0-32.0 N MONOCYTE % (test code = MO%) 9.9 % 4.8-9.0 H EOSINOPHIL % (test code = EO%) 2.9 % 0.3-3.7 N BASOPHIL % (test code = BA%) 0.5 % 0.0-2.0 N NUCLEATED RBC % (test code = 0.0 % 0-0 N NRBC%) NEUTROPHIL # (test code = NT#) 3.76 x10 3/uL 2.0-7.6 N IMMATURE GRANULOCYTE # (test 0.02 x10 3/uL 0.00-0.03 N code = IG#) LYMPHOCYTE # (test code = LY#) 0.96 x10 3/uL 1.0-3.8 L MONOCYTE # (test code = MO#) 0.54 x10 3/uL 0.1-0.8 N EOSINOPHIL # (test code = EO#) 0.16 x10 3/uL 0.0-0.2 N BASOPHIL # (test code = BA#) 0.03 x10 3/uL 0.0-0.2 N NUCLEATED RBC # (test code = 0.00 x10 3/uL 0.0-0.1 N NRBC#) MANUAL DIFF REQUIRED (test code NO = MDIFF) - XR CHEST 1 [id number] 00:00:00 [facility] : 1955 Sex: F FAX: Az Torres [phone] [place]: St: [facility] FAX: Rose Marie Stewart [phone] -- Name: PAOLA MISHRA [facility] : 1955 Age/S: 66/F [address] [place] [address] Unit #: [id number] Loc: [id number] [place] [address] Phys: Az Guerrero MD Acct: [id number] Dis Date: Status: ADM IN PHONE #: [phone] Exam Date: 04/23/20222127 FAX #: [phone] Reason: CONFIRM CENTRAL LINE PLACEMENT EXAMS: CPT CODE: [id number] XR CHEST 1 V 66878 PROCEDURE INFORMATION: Exam: XR Chest Exam date and time: 04/23/2022 9:09 PM Age: 66 years old Clinical indication: Device placement; Other: Central line; Additional info: Confirm central line placement TECHNIQUE: Imaging protocol: Radiologic exam of the chest. Views: 1 view. COMPARISON: DX XR CHEST 2 V 04/23/2022 11:43 AM FINDINGS: Tubes, catheters and devices: A right IJ venous catheter has been place, tip at atrial caval junction. Lungs: Low lung volumes with vascular crowding. Bilateral lower lobe atelectasis or infiltrates. Pleural spaces: No appreciable effusions or pneumothorax. Heart/Mediastinum: Cardiomediastinal silhouette is stable. Mild calcified plaques in aortic arch. Bones/joints: Osseous structures are stable. IMPRESSION: 1. Interval placement of a right IJ venous catheter, tip at the atrial caval junction. 2. Low lung volumes with vascular crowding and bilateral lower lobe atelectasis. at 2152 Reported and signed by: Chucky Leavitt M.D. CC: Az Guerrero MD; Marcella Stewart MD Technologist: RT Mario(R) Trnscrd Date/Time/By: 04/23/2022 (2151) : By: [email or web address] Orig Print D/T: S: 04/23/2022 (2152) PAGE 1 Signed Report- XR CHEST 2 V 2022-04-23 00:00:00 [facility] : 1955 Sex: F FAX: Allison Etienne [place]: St: REG Name: PAOLA MISHRA [facility] : 1955 Age/S: 66/F [address] [place] [address] Blvd Unit #: [id number] Loc: [place] [address] Phys: Allison Etienne Acct: [id number] Dis Date: Status: REG ER PHONE #: [phone] Exam Date: 04/23/2022 1145 FAX #: [phone] Reason: FLUID OVERLOAD EXAMS: CPT CODE: [id number] XR CHEST 2 V 81549 PROCEDURE INFORMATION: Exam: XR Chest Exam date and time: 04/23/2022 11:43 AM Age: 66 years old Clinical indication: Other: Fluid overload TECHNIQUE: Imaging protocol: Radiologic exam of the chest. Views: 2 views. PA and Lateral COMPARISON: DX XR CHEST 2 V 01/19/2022 4:42 PM FINDINGS: Lungs: Central bronchial wall thickening with marked pulmonary vascular congestion and or central interstitial edema. Scattered platelike atelectasis seen in the lingula and right middle lobe without dense lobar consolidation. Pleural spaces: Nopleural effusion. No pneumothorax. Heart/Mediastinum: The cardiac silhouette is enlarged accounting for magnification. Bones/joints: Moderate thoracic spondylosis without destructive bone lesions Otherfindings: Postsurgical clips are seen along the right and left paratracheal region to be correlated for prior thyroidectomy. Interval right central hemodialysis catheter removal. IMPRESSION: 1. Centralbronchial wall thickening with marked pulmonary vascular congestion and or central interstitial edema. 2. Scattered bilateral platelike atelectasis without dense lobar consolidation. 3. Enlarged cardiac silhouette. at 1233 Reported and signed by: Theo Flowers M.D. CC: Allison Etienne Technologist: Karis Casillas RT(R) Trnscrd Date/Time/By: 04/23/2022 (1893) : By: [email or web address] Orig Print D/T: S: 04/23/2022 (0183) PAGE 1 Signed Report Comprehensive metabolic [id number] 21:49:00 Test Item Value Reference Range Interpretation Comments Glucose (test code = 194 mg/dL 65-139 H Non-fa sting 2345-7) reference interval BUN (test code = 60 mg/dL 7-25 H 3094-0) Creatinine (test 7.83 mg/dL 0.5-1.05 H Verified by code = 2160-0) repeat analys is. eGFR (test code = See_Comment L The eGFR i s based 8257) on the CKD-EPI 2020 equation. To calculate the n ew eGFR from a previous Creatinine or Cystatin Cresul t, go to https://www.kid ne y.org/professio na ls/kdoqi/gfr%5F ca lculator [Automated message] The system which generated this result transmitted reference range : > OR = 60 mL/min/1.73m2. The reference range was not used to interpr et this result as normal/abnormal . BUN/creatinine ratio See_Comment [Autom ated (test code = 3097-3) message ] The system which generated this result transmitted reference range : 6 - 22 (calc). The reference range was not used to interpr et this result as normal/abnormal . Sodium (test code = 136 mmol/L 026-178 3662-2) Potassium (test code 6.5 mmol/L 3.5-5.3 H Red bl ood cells = 2823-3) were present in the sample upon receiptin the laboratory. A false elevation of K, Phos and LDas well as a false decrease in Glucose may occ ur due to prolonge d contact with re d cells. Verified by repeat analysis. Chloride (test code 99 mmol/L 98-110 = 2075-0) CO2 (test code = 24 mmol/L 20-32 2027-) Calcium (test code = 9.9 mg/dL 8.6-10.4 48712-3) Protein (test code = 7.1 g/dL 6.1-8.1 2885-2) Albumin, S (test 3.8 g/dL 3.6-5.1 code = 1751-7) Globulin, total See_Comment [Automated (test code = message] The 80457-0) system which generated this result transmitted reference range : 1.9 - 3.7 g/dL (calc). The reference range was not used to interpret this result as normal/abnormal . Albumin/globulin See_Comment [Automated ratio (test code = message] The 1750) system which generated this result transmitted reference range : 1.0 - 2.5 (calc ). The reference range was not used to interpr et this result as normal/abnormal . Total bilirubin 0.4 mg/dL 0.2-1.2 (test code = 1974-2) Alkaline phosphatase 75 U/L 37-153 (test code = 6768-6) AST (test code = 10 U/L 10-35 1920-8) ALT (test code = 6 U/L 01-27-6) AMIRA (test code = FASTING:NO AMIRA) FASTING: NO RAC (test code = Performing RAC) Organization Information: Site ID: RGA [facility]: [facility] Address: [address] [place] [phone] Director: Jake Guillen Lab Interpretation Abnormal (test code = 75818-5) [facility] with platelet and [id number] 21:49:00 Test Item Value Reference Range Interpretation Comments WBC (test code = See_Comment [Automated 0090-2) message] The system which generated this result transmitted reference range : 3.8 - 10.8 Thousand/uL. Th e reference range was not used to interpret this result as normal/abnormal . RBC (test code = See_Comment L [Automated 529-8) message] The system which generated this result transmitted reference range : 3.80 - 5.10 Million/uL. The reference range was not used to interpret this result as normal/abnormal . HGB (test code = 10.2 g/dL 11.7-15.5 L 718-7) HCT (test code = 33.3 % 35-45 L 4544-3) MCV (test code = 90.0 fL 80-100 787-2) MCH (test code = 27.6 pg 27-33 785-6) MCHC (test code = 30.6 g/dL 32-36 L 786-4) RDW (test code = 17.5 % 11-15 H 788-0) Platelet count (test See_Comment [Autom ated code = 777-3) message] The system which generated this result transmitted reference range : 140 - 400 Thousand/uL. Th e reference range was not used to interpret this result as normal/abnormal . MPV (test code = 10.6 fL 7.5-12.5 776-5) Neutrophils, See_Comment [Automated absolute (test code message] The = 751-8) system which generated this result transmitted reference range : 1,500 - 7,800 cells/uL. The reference range was not used to interpret this result as normal/abnormal . Lymphocytes, See_Comment [Automated absolute (test code message] The = 731-0) system which generated this result transmitted reference range : 850 - 3,900 cells/uL. The reference range was not used to interpret this result as normal/abnormal . Monocytes, absolute See_Comment [Automa carolina (test code = 742-7) message] The system which generated this result transmitted reference range : 200 - 950 cells/uL. The reference range was not used to interpret this result as normal/abnormal . Eosinophils, See_Comment [Automated absolute (test code message] The = 711-2) system which generated this result transmitted reference range : 15 - 500 cells/uL. The reference range was not used to interpret this result as normal/abnormal . Basophils, absolute See_Comment [Automa carolina (test code = 704-7) message] The system which generated this result transmitted reference range : 0 - 200 cells/u L. The reference range was not used to interpr et this result as normal/abnormal . Neutrophils (test 71.8 % code = 770-8) Lymphocytes (test 18.5 % code = 736-9) Monocytes (test code 7.6 % = 5905-5) Eosinophils (test 1.7 % code = 713-8) Basophils + RC (test 0.4 % code = 706-2) AMIRA (test code = FASTING:NO AMIRA) FASTING: NO RAC (test code = Performing RAC) Organization Information: Site ID: RGA Name: [facility] Address: [address] [place] [id number] Director: Jake Guillen Lab Interpretation Abnormal (test code = 15104-2) [facility] [id number] 21:49:00 Test Item Value Reference Range Interpretation Comments Source (test code Serum = 62496-9) Cryptococcal Ag Not Detected Not Detected Culture josue uld be (test code = [place] [address]-3) initial positivesample in order to recove r the causative organism forpre cise identification (C. neoformans vs. C. gattii)and potential susceptibility testing. AMIRA (test code = FASTING:NO AMIRA) FASTING: NO RAC (test code = Performing RAC) Organization Information: Site ID: AMD Name: [facility] Address: [address] [place] [address] [address] [place], [place] Director: Myron Mcdonald M.D.,PhD [facility] [id number] 21:49:00 Test Item Value Reference Range Interpretation Comments Glucose (test code = 194 mg/dL 65-139 H Non-fa sting 2345-7) reference interval BUN (test code = 60 mg/dL 7-25 H 3094-0) Creatinine (test 7.83 mg/dL 0.5-1.05 H Verified by code = 2160-0) repeat analys is. eGFR (test code = See_Comment L The eGFR i s based 8257) on the CKD-EPI 2020 equation. To calculate the n ew eGFR from a previous Creatinine or Cystatin Cresul t, go to https://www.kid ne y.org/professio na ls/kdoqi/gfr%5F ca lculator [Automated message] The system which generated this result transmitted reference range : > OR = 60 mL/min/1.73m2. The reference range was not used to interpr et this result as normal/abnormal . BUN/creatinine ratio See_Comment [Autom ated (test code = 3097-3) message ] The system which generated this result transmitted reference range : 6 - 22 (calc). The reference range was not used to interpr et this result as normal/abnormal . Sodium (test code = 136 mmol/L 872-906 2967-2) Potassium (test code 6.5 mmol/L 3.5-5.3 H Red bl ood cells = 2823-3) were present in the sample upon receiptin the laboratory. A false elevation of K, Phos and LDas well as a false decrease in Glucose may occ ur due to prolonge d contact with re d cells. Verified by repeat analysis. Chloride (test code 99 mmol/L 98-110 = 5-0) CO2 (test code = 24 mmol/L 20-32 2027-9) Calcium (test code = 9.9 mg/dL 8.6-10.4 93631-2) Protein (test code = 7.1 g/dL 6.1-8.1 2885-2) Albumin, S (test 3.8 g/dL 3.6-5.1 code = 1751-7) Globulin, total See_Comment [Automated (test code = message] The 33780-7) system which generated this result transmitted reference range : 1.9 - 3.7 g/dL (calc). The reference range was not used to interpret this result as normal/abnormal . Albumin/globulin See_Comment [Automated ratio (test code = message] The 1759-0) system which generated this result transmitted reference range : 1.0 - 2.5 (calc ). The reference range was not used to interpr et this result as normal/abnormal . Total bilirubin 0.4 mg/dL 0.2-1.2 (test code = 1975-2) Alkaline phosphatase 75 U/L 37-153 (test code = 6768-6) AST (test code = 10 U/L 10-35 1920-8) ALT (test code = 6 U/L 6-29 1742-6) AMIRA (test code = FASTING:NO AMIRA) FASTING: NO RAC (test code = Performing RAC) Organization Information: Site ID: RGA Name: [facility] Lab Address: [address] [place] [phone] Director: Jake Guillen Lab Interpretation Abnormal (test code = 41855-2) [facility] with platelet and [id number] 21:49:00 Test Item Value Reference Range Interpretation Comments WBC (test code = See_Comment [Automated 6690-2) message] The system which generated this result transmitted reference range : 3.8 - 10.8 Thousand/uL. Th e reference range was not used to interpret this result as normal/abnormal . RBC (test code = See_Comment L [Automated 789-8) message] The system which generated this result transmitted reference range : 3.80 - 5.10 Million/uL. The reference range was not used to interpret this result as normal/abnormal . HGB (test code = 10.2 g/dL 11.7-15.5 L 718-7) HCT (test code = 33.3 % 35-45 L 4544-3) MCV (test code = 90.0 fL 80-100 787-2) MCH (test code = 27.6 pg 27-33 785-6) MCHC (test code = 30.6 g/dL 32-36 L 786-4) RDW (test code = 17.5 % 11-15 H 788-0) Platelet count (test See_Comment [Autom ated code = 777-3) message] The system which generated this result transmitted reference range : 140 - 400 Thousand/uL. Th e reference range was not used to interpret this result as normal/abnormal . MPV (test code = 10.6 fL 7.5-12.5 776-5) Neutrophils, See_Comment [Automated absolute (test code message] The = 751-8) system which generated this result transmitted reference range : 1,500 - 7,800 cells/uL. The reference range was not used to interpret this result as normal/abnormal . Lymphocytes, See_Comment [Automated absolute (test code message] The = 731-0) system which generated this result transmitted reference range : 850 - 3,900 cells/uL. The reference range was not used to interpret this result as normal/abnormal . Monocytes, absolute See_Comment [Automa carolina (test code = 742-7) message] The system which generated this result transmitted reference range : 200 - 950 cells/uL. The reference range was not used to interpret this result as normal/abnormal . Eosinophils, See_Comment [Automated absolute (test code message] The = 711-2) system which generated this result transmitted reference range : 15 - 500 cells/uL. The reference range was not used to interpret this result as normal/abnormal . Basophils, absolute See_Comment [Automa carolina (test code = 704-7) message] The system which generated this result transmitted reference range : 0 - 200 cells/u L. The reference range was not used to interpr et this result as normal/abnormal . Neutrophils (test 71.8 % code = 770-8) Lymphocytes (test 18.5 % code = 736-9) Monocytes (test code 7.6 % = 5905-5) Eosinophils (test 1.7 % code = 713-8) Basophils + RC (test 0.4 % code = 706-2) AMIRA (test code = FASTING:NO AMIRA) FASTING: NO RAC (test code = Performing RAC) Organization Information: Site ID: RGA [facility]: [facility] Lab Address: [address] [place] [phone] Director: Jake Guillen Lab Interpretation Abnormal (test code = 65422-4) [facility], [id number] 21:49:00 Test Item Value Reference Range Interpretation Comments Source (test code Serum = 15595-3) Cryptococcal Ag Not Detected Not Detected Culture josue uld be (test code = [place] [address]-2) initial positivesample in order to recove r the causative organism forpre cise identification (C. neoformans vs. C. gattii)and potential susceptibility testing. AMIRA (test code = FASTING:NO AMIRA) FASTING: NO RAC (test code = Performing RAC) Organization Information: Site ID: AMD Name: [facility] Address: [address] [place] [address] [place] [address] Director: Myron Mcdonald M.D.,PhD [facility] [id number] 21:49:00 Test Item Value Reference Range Interpretation Comments Glucose (test code = 194 mg/dL 65-139 H Non-fa sting 2345-7) reference interval BUN (test code = 60 mg/dL 7-25 H 3094-0) Creatinine (test 7.83 mg/dL 0.50-1.05 H Verified by code = 2160-0) repeat analys is. eGFR (test code = See_Comment L The eGFR i s based 8257) on the CKD-EPI 2020 equation. To calculate the n ew eGFR from a previous Creatinine or Cystatin Cresul t, go to https://www.kid ne y.org/daniella richey/kdoqi/gfr%5F ca lculator [Automated message] The system which generated this result transmitted reference range : > OR = 60 mL/min/1.73m2. The reference range was not used to interpr et this result as normal/abnormal . BUN/creatinine ratio See_Comment [Autom ated (test code = 3097-3) message ] The system which generated this result transmitted reference range : 6 - 22 (calc). The reference range was not used to interpr et this result as normal/abnormal . Sodium (test code = 136 mmol/L 633-457 0790-2) Potassium (test code 6.5 mmol/L 3.5-5.3 H Red bl ood cells = 2823-3) were present in the sample upon receiptin the laboratory. A false elevation of K, Phos and LDas well as a false decrease in Glucose may occ ur due to prolonge d contact with re d cells. Verified by repeat analysis. Chloride (test code 99 mmol/L 98-110 = 5-0) CO2 (test code = 24 mmol/L 20-32 2028-04) Calcium (test code = 9.9 mg/dL 8.6-10.4 06775-5) Protein (test code = 7.1 g/dL 6.1-8.1 2885-2) Albumin, S (test 3.8 g/dL 3.6-5.1 code = 1751-7) Globulin, total See_Comment [Automated (test code = message] The 58721-4) system which generated this result transmitted reference range : 1.9 - 3.7 g/dL (calc). The reference range was not used to interpret this result as normal/abnormal . Albumin/globulin See_Comment [Automated ratio (test code = message] The 4810) system which generated this result transmitted reference range : 1.0 - 2.5 (calc ). The reference range was not used to interpr et this result as normal/abnormal . Total bilirubin 0.4 mg/dL 0.2-1.2 (test code = 1975-2) Alkaline phosphatase 75 U/L 37-153 (test code = 6768-6) AST (test code = 10 U/L 10-35 1920-8) ALT (test code = 6 U/L 6 1742-6) AMIRA (test code = FASTING:NO AMIRA) FASTING: NO RAC (test code = Performing RAC) Organization Information: Site ID: RGA Name: [facility] Lab Address: [address] [place] [phone] Director: Jake Guillen Lab Interpretation Abnormal (test code = 57721-1) [facility] with platelet and [id number] 21:49:00 Test Item Value Reference Range Interpretation Comments WBC (test code = See_Comment [Automated 6690-2) message] The system which generated this result transmitted reference range : 3.8 - 10.8 Thousand/uL. Th e reference range was not used to interpret this result as normal/abnormal . RBC (test code = See_Comment L [Automated 789-8) message] The system which generated this result transmitted reference range : 3.80 - 5.10 Million/uL. The reference range was not used to interpret this result as normal/abnormal . HGB (test code = 10.2 g/dL 11.7-15.5 L 718-7) HCT (test code = 33.3 % 35.0-45.0 L 4544-3) MCV (test code = 90.0 fL 80.0-100.0 787-2) MCH (test code = 27.6 pg 27.0-33.0 785-6) MCHC (test code = 30.6 g/dL 32.0-36.0 L 786-4) RDW (test code = 17.5 % 11.0-15.0 H 788-0) Platelet count (test See_Comment [Autom ated code = 777-3) message] The system which generated this result transmitted reference range : 140 - 400 Thousand/uL. Th e reference range was not used to interpret this result as normal/abnormal . MPV (test code = 10.6 fL 7.5-12.5 776-5) Neutrophils, See_Comment [Automated absolute (test code message] The = 751-8) system which generated this result transmitted reference range : 1,500 - 7,800 cells/uL. The reference range was not used to interpret this result as normal/abnormal . Lymphocytes, See_Comment [Automated absolute (test code message] The = 731-0) system which generated this result transmitted reference range : 850 - 3,900 cells/uL. The reference range was not used to interpret this result as normal/abnormal . Monocytes, absolute See_Comment [Automa carolina (test code = 742-7) message] The system which generated this result transmitted reference range : 200 - 950 cells/uL. The reference range was not used to interpret this result as normal/abnormal . Eosinophils, See_Comment [Automated absolute (test code message] The = 711-2) system which generated this result transmitted reference range : 15 - 500 cells/uL. The reference range was not used to interpret this result as normal/abnormal . Basophils, absolute See_Comment [Automa carolina (test code = 704-7) message] The system which generated this result transmitted reference range : 0 - 200 cells/u L. The reference range was not used to interpr et this result as normal/abnormal . Neutrophils (test 71.8 % code = 770-8) Lymphocytes (test 18.5 % code = 736-9) Monocytes (test code 7.6 % = 5905-5) Eosinophils (test 1.7 % code = 713-8) Basophils + RC (test 0.4 % code = 706-2) AMIRA (test code = FASTING:NO AMIRA) FASTING: NO RAC (test code = Performing RAC) Organization Information: Site ID: RGA [facility]: [facility] Address: [address] [place] [phone] Director: Jake Guillen Lab Interpretation Abnormal (test code = 11554-1) [facility], [id number] 21:49:00 Test Item Value Reference Range Interpretation Comments Source (test code Serum = 69108-7) Cryptococcal Ag Not Detected Not Detected Culture josue uld be (test code = performed 32795-8) initial positivesample in order to recove r the causative organism forpre cise identification (C. neoformans vs. C. gattii)and potential susceptibility testing. 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 [facility] GLUCOSE [id number] 15:43:00 Test Item Value Reference Range Interpretation Comments GLUCOSE BEDSIDE (test 111 MG/DL 70-110 H Perfor med by certified code = GLUBED) 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 [facility] BASIC METABOLIC [id number] 12:30:00 Test Item Value Reference Range Interpretation Comments SODIUM (test code = NA) 135 mEq/L 134-147 N POTASSIUM (test code = 5.5 mEq/L 3.4-5.0 H K) CHLORIDE (test code = 102 mEq/L 100-108 CL) CARBON DIOXIDE (test 28 mEq/l 21-33 N code = CO2) ANION GAP (test code = 11 0-20 N GAP) GLUCOSE (test code = 132 mg/dL 70-110 H GLU) BLOOD UREA NITROGEN 51 mg/dL 7-18 H (test code = BUN) GLOMERULAR FILTRATION 7.8 80-90 L Units of measure = RATE (test code = GFR) ml/mi n/1.73 m2 CREATININE (test code = 5.5 mg/dL 0.6-1.3 H CREAT) CALCIUM (test code = 9.9 mg/dL 8.0-10.5 N CA) PROTHROMBIN [id number] 12:15:00 Test Item Value Reference Range Interpretation Comments PROTHROMBIN TIME 13.9 SECONDS 9.3-12.9 H PATIENT (test code = PTP) INTERNATIONAL NORMAL 1.3 0.8-1.2 H TARGET INR BY RATIO (test code = INDICATIO N Indication INR) INR1. Prophylax is of venous thrombos is 2.0 - 3.0 (orthoped ic surgery), Proph ylaxis of venous throm bosis (other than hig h-risk surgery), Treat ment of Deep Vein Thrombosis/Pulm onary Embolism, Preve ntion of systemic emb olism - Tissue heart va lves, Acute Myocardia l Infarction (to prevent systemic emboli sm), Valvular heart disease, Atrial Fibrillation, Bileaflet mecha nical valve in aortic position.2. Mec hanical prosthetic valv es (high risk), 2. 5 - 3.5 Presence of Lup us Anticoagulant o r Antiphospholipi d Antibodies, Pre vention of systemic emb olism - Acute Myocardia l Infarction (to prevent recurrent infar ct). CBC W/AUTO [id number] 12:07:00 Test Item Value Reference Range Interpretation Comments WHITE BLOOD CELL (test code = 5.4 x10 3/uL 4.5-11.0 N WBC) RED BLOOD CELL (test code = 3.31 x10 6/uL 3.54-5.02 L RBC) HEMOGLOBIN (test code = HGB) 8.9 g/dL 11.0-15.0 L HEMATOCRIT (test code = HCT) 28.8 % 33.0-45.0 L MEAN CELL VOLUME (test code = 87.0 fL 81.0-99.0 N MCV) MEAN CELL HGB (test code = MCH) 26.9 pg 27.0-33.0 L MEAN CELL HGB CONCETRATION 30.9 g/dL 33.0-37.0 L (test code = MCHC) RED CELL DISTRIBUTION WIDTH CV 17.1 % 11.5-14.5 H (test code = RDW) RED CELL DISTRIBUTION WIDTH SD 54.8 fL 37.0-54.0 H (test code = RDW-SD) PLATELET COUNT (test code = 245 x10 3/uL 150-400 N PLT) MEAN PLATELET VOLUME (test code 10.0 fL 7.0-9.0 H = MPV) NEUTROPHIL % (test code = NT%) 70.2 % 56.0-77.0 N IMMATURE GRANULOCYTE % (test 0.4 % 0.0-2.0 N code = IG%) LYMPHOCYTE % (test code = LY%) 18.7 % 14.0-32.0 N MONOCYTE % (test code = MO%) 9.0 % 4.8-9.0 N EOSINOPHIL % (test code = EO%) 1.1 % 0.3-3.7 N BASOPHIL % (test code = BA%) 0.6 % 0.0-2.0 N NUCLEATED RBC % (test code = 0.0 % 0-0 N NRBC%) NEUTROPHIL # (test code = NT#) 3.76 x10 3/uL 2.0-7.6 N IMMATURE GRANULOCYTE # (test 0.02 x10 3/uL 0.00-0.03 N code = IG#) LYMPHOCYTE # (test code = LY#) 1.00 x10 3/uL 1.0-3.8 N MONOCYTE # (test code = MO#) 0.48 x10 3/uL 0.1-0.8 N EOSINOPHIL # (test code = EO#) 0.06 x10 3/uL 0.0-0.2 N BASOPHIL # (test code = BA#) 0.03 x10 3/uL 0.0-0.2 N NUCLEATED RBC # (test code = 0.00 x10 3/uL 0.0-0.1 N NRBC#) MANUAL DIFF REQUIRED (test code NO = MDIFF) GLUCOSE [id number] 12:02:00 Test Item Value Reference Range Interpretation Comments GLUCOSE BEDSIDE (test 128 MG/DL 70-110 H Perfor med by certified code = GLUBED) 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 [facility] - XR CHEST 2 [id number] 00:00:00 [facility] Elin : 1955 Sex: F FAX: Az Torres [phone] [place]: St: PRE FAX: Orlin Melara [phone] Name: PAOLA MISHRA [facility] [place] : 1955 Age/S: 66/F [address] [place] [address] Unit #: [id number] Loc: [place] [address] Phys: Orlin Farmer MD Acct: [id number] Dis Date: Status: PRE SDC PHONE #: [phone] Exam Date: 01/19/2022 1645 FAX #: [phone] Reason: PREOP EXAMS: CPT CODE: [id number] XR CHEST 2 V 59145 PROCEDURE INFORMATION: Exam: XR Chest Exam date and time: 01/19/2022 4:42 PM Age: 66 years old Clinical indication: Pre-operative exam; Respiratory screening exam; Additional info: Preop TECHNIQUE: Imaging protocol: Radiologic exam of the chest. Views: 2 views. PA and Lateral COMPARISON: DX XR CHEST 2 V 12/08/2021 8:52 AM FINDINGS: Tubes, catheters and devices: Right chest dialysis catheter tips over the lower 3rd superior vena cava shadow. Lungs: Lung linear opacities consistent with scarring. Lungs are otherwise clear. Pleural spaces: No pleural effusion. No pneumothorax. Heart/Mediastinum: Cardiomediastinal silhouette is normal in size. Bones/joints: No acute bony finding.IMPRESSION: No acute or active pulmonary findings. at 0002 Reported and signed by: Geoffrey Govea M.D. CC: Az Guerrero MD; Orlin Farmer MD Technologist: Jorge Morin, RT(R) Trnscrd Date/Time/By: 01/20/2022 (0002) :By: [email or web address] Orig Print D/T: S: 01/20/2022 (0002) PAGE 1 Signed ReportBASIC METABOLIC [id number] 16:59:00 Test Item Value Reference Range Interpretation Comments SODIUM (test code = NA) 134 mEq/L 134-147 N POTASSIUM (test code = 5.1 mEq/L 3.4-5.0 H K) CHLORIDE (test code = 97 mEq/L 100-108 L CL) CARBON DIOXIDE (test 28 mEq/l 21-33 N code = CO2) ANION GAP (test code = 14 0-20 N GAP) GLUCOSE (test code = 166 mg/dL 70-110 H GLU) BLOOD UREA NITROGEN 39 mg/dL 7-18 H (test code = BUN) GLOMERULAR FILTRATION 8.9 80-90 L Units of measure = RATE (test code = GFR) ml/mi n/1.73 m2 CREATININE (test code = 4.9 mg/dL 0.6-1.3 H CREAT) CALCIUM (test code = 9.0 mg/dL 8.0-10.5 N CA) CBC W/AUTO [id number] 16:43:00 Test Item Value Reference Range Interpretation Comments WHITE BLOOD CELL (test code = 6.2 x10 3/uL 4.5-11.0 N WBC) RED BLOOD CELL (test code = 3.31 x10 6/uL 3.54-5.02 L RBC) HEMOGLOBIN (test code = HGB) 8.9 g/dL 11.0-15.0 L HEMATOCRIT (test code = HCT) 29.5 % 33.0-45.0 L MEAN CELL VOLUME (test code = 89.1 fL 81.0-99.0 N MCV) MEAN CELL HGB (test code = MCH) 26.9 pg 27.0-33.0 L MEAN CELL HGB CONCETRATION 30.2 g/dL 33.0-37.0 L (test code = MCHC) RED CELL DISTRIBUTION WIDTH CV 17.3 % 11.5-14.5 H (test code = RDW) PLATELET COUNT (test code = 268 x10 3/uL 150-400 N PLT) NEUTROPHIL % (test code = NT%) 72.2 % 56.0-77.0 N LYMPHOCYTE % (test code = LY%) 16.6 % 14.0-32.0 N NEUTROPHIL # (test code = NT#) 4.49 x10 3/uL 2.0-7.6 N LYMPHOCYTE # (test code = LY#) 1.03 x10 3/uL 1.0-3.8 N MANUAL DIFF REQUIRED (test code NO = MDIFF) RED CELL DISTRIBUTION WIDTH SD 56.2 fL 37.0-54.0 H (test code = RDW-SD) MEAN PLATELET VOLUME (test code 10.6 fL 7.0-9.0 H = MPV) IMMATURE GRANULOCYTE % (test 0.3 % 0.0-2.0 N code = IG%) MONOCYTE % (test code = MO%) 9.5 % 4.8-9.0 H EOSINOPHIL % (test code = EO%) 1.1 % 0.3-3.7 N BASOPHIL % (test code = BA%) 0.3 % 0.0-2.0 N NUCLEATED RBC % (test code = 0.0 % 0-0 N NRBC%) IMMATURE GRANULOCYTE # (test 0.02 x10 3/uL 0.00-0.03 N code = IG#) MONOCYTE # (test code = MO#) 0.59 x10 3/uL 0.1-0.8 N EOSINOPHIL # (test code = EO#) 0.07 x10 3/uL 0.0-0.2 N BASOPHIL # (test code = BA#) 0.02 x10 3/uL 0.0-0.2 N NUCLEATED RBC # (test code = 0.00 x10 3/uL 0.0-0.1 N NRBC#) GLUCOSE [id number] 13:48:00 Test Item Value Reference Range Interpretation Comments GLUCOSE BEDSIDE (test 224 MG/DL 70-110 H Perfor med by certified code = GLUBED) 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 [facility] GLUCOSE [id number] 11:13:00 Test Item Value Reference Range Interpretation Comments GLUCOSE BEDSIDE (test 148 MG/DL 70-110 H Perfor med by certified code = GLUBED) 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 [facility] GLUCOSE [id number] 07:27:00 Test Item Value Reference Range Interpretation Comments GLUCOSE BEDSIDE (test 105 MG/DL 70-110 N Perfor med by certified code = GLUBED) 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 [facility] BASIC METABOLIC [id number] 07:23:00 Test Item Value Reference Range Interpretation Comments SODIUM (test code = NA) 135 mEq/L 134-147 N POTASSIUM (test code = 5.7 mEq/L 3.4-5.0 H K) CHLORIDE (test code = 104 mEq/L 100-108 N CL) CARBON DIOXIDE (test 27 mEq/l 21-33 N code = CO2) ANION GAP (test code = 10 0-20 N GAP) GLUCOSE (test code = 66 mg/dL 70-110 L GLU) BLOOD UREA NITROGEN 41 mg/dL 7-18 H (test code = BUN) GLOMERULAR FILTRATION 15.1 80-90 L Units of measure = RATE (test code = GFR) ml/mi n/1.73 m2 CREATININE (test code = 3.1 mg/dL 0.6-1.3 H CREAT) CALCIUM (test code = 8.9 mg/dL 8.0-10.5 N CA) CBC W/AUTO [id number] 06:40:00 Test Item Value Reference Range Interpretation Comments WHITE BLOOD CELL (test code = 4.8 x10 3/uL 4.5-11.0 N WBC) RED BLOOD CELL (test code = 3.55 x10 6/uL 3.54-5.02 N RBC) HEMOGLOBIN (test code = HGB) 9.8 g/dL 11.0-15.0 L HEMATOCRIT (test code = HCT) 32.3 % 33.0-45.0 L MEAN CELL VOLUME (test code = 91.0 fL 81.0-99.0 N MCV) MEAN CELL HGB (test code = MCH) 27.6 pg 27.0-33.0 N MEAN CELL HGB CONCETRATION 30.3 g/dL 33.0-37.0 L (test code = MCHC) RED CELL DISTRIBUTION WIDTH CV 16.5 % 11.5-14.5 H (test code = RDW) RED CELL DISTRIBUTION WIDTH SD 55.9 fL 37.0-54.0 H (test code = RDW-SD) PLATELET COUNT (test code = 286 x10 3/uL 150-400 N PLT) MEAN PLATELET VOLUME (test code 9.6 fL 7.0-9.0 H = MPV) NEUTROPHIL % (test code = NT%) 62.7 % 56.0-77.0 N IMMATURE GRANULOCYTE % (test 0.2 % 0.0-2.0 N code = IG%) LYMPHOCYTE % (test code = LY%) 25.8 % 14.0-32.0 N MONOCYTE % (test code = MO%) 9.0 % 4.8-9.0 N EOSINOPHIL % (test code = EO%) 1.7 % 0.3-3.7 N BASOPHIL % (test code = BA%) 0.6 % 0.0-2.0 N NUCLEATED RBC % (test code = 0.0 % 0-0 N NRBC%) NEUTROPHIL # (test code = NT#) 3.01 x10 3/uL 2.0-7.6 N IMMATURE GRANULOCYTE # (test 0.01 x10 3/uL 0.00-0.03 N code = IG#) LYMPHOCYTE # (test code = LY#) 1.24 x10 3/uL 1.0-3.8 N MONOCYTE # (test code = MO#) 0.43 x10 3/uL 0.1-0.8 N EOSINOPHIL # (test code = EO#) 0.08 x10 3/uL 0.0-0.2 N BASOPHIL # (test code = BA#) 0.03 x10 3/uL 0.0-0.2 N NUCLEATED RBC # (test code = 0.00 x10 3/uL 0.0-0.1 N NRBC#) MANUAL DIFF REQUIRED (test code NO = MDIFF) GLUCOSE [id number] 06:33:00 Test Item Value Reference Range Interpretation Comments GLUCOSE BEDSIDE (test 66 MG/DL 70-110 L Perfor med by certified code = GLUBED) 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 Positiv e results do not rule out bacterial infection or co -infection with other viru ses. Negative result s do not preclude SARS-C oV-2 infection andsh ould not be used as the eric e basis for patient managementdecis ions. Negative result s must be combined with otherclinical observations, p atient history, and epidemiological information . Detection of SARS-CoV-2 RNA may be affe cted bysample collec tion methods, storag e conditions, and /or stageof infection. Ngozi l RNA mutations, vacc inations, antiviraltherap eutics, antibiotics, chemotherapeuti c orimmunosuppres pablo drugs have not been e valuated for effectson d etection. Results are for the identification of SARS-CoV-2 RNA usingreal-time (RT) polymerase ralf n reaction (PCR) technolog yfor the qualitative det ection of nucleic acids f rom [id number] v irus and diagnosis of SA RS-CoV-2 virusinfection. It is an Emergency Use Authorization ( EUA) testauthorized by the U.S. FDA. BASIC METABOLIC [id number] 09:02:00 Test Item Value Reference Range Interpretation Comments SODIUM (test code = NA) 141 mEq/L 134-147 N POTASSIUM (test code = 5.4 mEq/L 3.4-5.0 H K) CHLORIDE (test code = 106 mEq/L 100-108 N CL) CARBON DIOXIDE (test 27 mEq/l 21-33 N code = CO2) ANION GAP (test code = 13 0-20 N GAP) GLUCOSE (test code = 177 mg/dL 70-110 H GLU) BLOOD UREA NITROGEN 22 mg/dL 7-18 H (test code = BUN) GLOMERULAR FILTRATION 20.3 80-90 L Units of measure = RATE (test code = GFR) ml/mi n/1.73 m2 CREATININE (test code = 2.4 mg/dL 0.6-1.3 H CREAT) CALCIUM (test code = 8.3 mg/dL 8.0-10.5 N CA) CBC W/AUTO [id number] 08:39:00 Test Item Value Reference Range Interpretation Comments WHITE BLOOD CELL (test code = 5.4 x10 3/uL 4.5-11.0 N WBC) RED BLOOD CELL (test code = 3.99 x10 6/uL 3.54-5.02 N RBC) HEMOGLOBIN (test code = HGB) 11.1 g/dL 11.0-15.0 N HEMATOCRIT (test code = HCT) 37.0 % 33.0-45.0 N MEAN CELL VOLUME (test code = 92.7 fL 81.0-99.0 N MCV) MEAN CELL HGB (test code = MCH) 27.8 pg 27.0-33.0 N MEAN CELL HGB CONCETRATION 30.0 g/dL 33.0-37.0 L (test code = MCHC) RED CELL DISTRIBUTION WIDTH CV 16.8 % 11.5-14.5 H (test code = RDW) PLATELET COUNT (test code = 274 x10 3/uL 150-400 N PLT) NEUTROPHIL % (test code = NT%) 84.2 % 56.0-77.0 H LYMPHOCYTE % (test code = LY%) 10.1 % 14.0-32.0 L NEUTROPHIL # (test code = NT#) 4.51 x10 3/uL 2.0-7.6 N LYMPHOCYTE # (test code = LY#) 0.54 x10 3/uL 1.0-3.8 L MANUAL DIFF REQUIRED (test code NO = MDIFF) RED CELL DISTRIBUTION WIDTH SD 58.4 fL 37.0-54.0 H (test code = RDW-SD) MEAN PLATELET VOLUME (test code 10.4 fL 7.0-9.0 H = MPV) IMMATURE GRANULOCYTE % (test 0.4 % 0.0-2.0 N code = IG%) MONOCYTE % (test code = MO%) 4.5 % 4.8-9.0 L EOSINOPHIL % (test code = EO%) 0.4 % 0.3-3.7 N BASOPHIL % (test code = BA%) 0.4 % 0.0-2.0 N NUCLEATED RBC % (test code = 0.0 % 0-0 N NRBC%) IMMATURE GRANULOCYTE # (test 0.02 x10 3/uL 0.00-0.03 N code = IG#) MONOCYTE # (test code = MO#) 0.24 x10 3/uL 0.1-0.8 N EOSINOPHIL # (test code = EO#) 0.02 x10 3/uL 0.0-0.2 N BASOPHIL # (test code = BA#) 0.02 x10 3/uL 0.0-0.2 N NUCLEATED RBC # (test code = 0.00 x10 3/uL 0.0-0.1 N NRBC#) - XR CHEST 2 [id number] 00:00:00 [facility]: 1955 Sex: F FAX: Az Torres [phone] [place]: St: PRE FAX: Nellie Vines Name: PAOLA MISHRA [facility] : 1955 Age/S: 66/F [address] [place] [address] Unit #: [id number] Loc: [place] [address] Phys: Nellie Vines [employer] Acct: [id number] Dis Date: Status: PRE [facility] [place] [place] PHONE #: [phone] Date: 12/08/2021920 FAX #: [phone] Reason: PREOP EXAMS: CPT CODE: [id number] XR CHEST 2 V 70853 PROCEDURE INFORMATION: Exam: XR Chest Exam date and time: 12/08/2021 8:52 AM Age: 66 years oldClinical indication: Pre- operative exam; Respiratory screening exam; Additional info: Preop TECHNIQUE: Imaging protocol: XR of the chest. Views: 2 views. COMPARISON: No relevant prior studies available. FINDINGS: There is no abnormal radiopaque foreign body. The cardiac silhouette is normal. There is no pneumothorax visible. There is no radiographic evidence of pulmonary edema. There is no radiographic evidence of pneumonia. There is a central line. Its tip is in the region of the superior cavoatrial junction. IMPRESSION: There is no radiographic evidence of acute disease. at 0935 Reported and signed by: Alex Diallo M.D. CC: Delmi Guerrero MD; Nellie Vines NP Technologist: ESTEPHANIE Cruz) Trnscrd Date/Time/By: 12/08/2021 (32) : By: [email or web address] Orig Print D/T: S: 12/08/2021 (7778) PAGE 1 Signed Report POC [id number] 22:09:00 Test Item Value Reference Range Interpretation Comments POC glucose (test code 184 mg/dL 65-99 H Opera tor Name: Tristan = [id number]) GwendolynDevice ID: [id number] Lab Interpretation Abnormal (test code = 92777-5) [facility] [id number] 22:09:00 Test Item Value Reference Range Interpretation Comments POC glucose (test code 184 mg/dL 65-99 H Opera tor Name: Tristan = [id number]) GwendolynDevice ID: [id number] Lab Interpretation Abnormal (test code = 06248-5) [facility] [id number] 22:09:00 Test Item Value Reference Range Interpretation Comments POC glucose (test code 184 mg/dL 65-99 H Opera tor Name: Tristan = [id number]) GwendolynDevice ID: [id number] Lab Interpretation Abnormal (test code = 52446-8) [facility] [Presence] in Respiratory specimen by FROYLAN with probe [id number] 06:33:34 Test Item Value Reference Range Interpretation Comments SARS-CoV-2 (COVID-19) RNA Not detected [Presence] in Respiratory specimen by FROYLAN with probe detection (test code = 89295-7) Whether patient is employed in a Unknown healthcare setting (test code = 94860-8) Whether the patient has symptoms Unknown related to condition of interest (test code = 60985-1) Whether the patient was Unknown hospitalized for condition of interest (test code = 16361-3) Whether the patient was admitted Unknown to intensive care unit (ICU) for condition of interest (test code = 89666-9) Whether patient resides in a Unknown congregate care setting (test code = 86230-4) status (test code = Unknown 17611-6) Date and time of symptom onset Unknown (test code = 65346-6) [facility] [id number] 02:00:00 Test Item Value Reference Range Interpretation Comments Urine culture (test SEE COMMENT Bacteriu polo screen code = 8186139) negative. [facility] [id number] 02:00:00 Test Item Value Reference Range Interpretation Comments Urine culture (test SEE COMMENT Bacteriu polo screen code = 3573635) negative. [facility] [id number] 02:00:00 Test Item Value Reference Range Interpretation Comments Urine culture (test SEE COMMENT Bacteriu polo screen code = 8193044) negative. [address]2022-03-21 05:10:54 Test Item Value Reference Range Interpretation Comments Ventricular rate (test code = 253) Atrial rate (test code = 255) IN interval (test code = 266) QRSD interval (test code = 260) QT interval (test code = 264) QTC interval (test code = 265) P axis 1 (test code = 267) QRS axis 1 (test code = 268) T wave axis (test code = 270) EKG impression (test Normal sinus code = 273) rhythm-Right atrial enlargement-Borderline ECG-In automated comparison with ECG of 14-OCT-2021 11:26,-No significant change was found- [address]2022-03-21 05:10:54 Test Item Value Reference Range Interpretation Comments Ventricular rate (test code = 253) Atrial rate (test code = 255) IN interval (test code = 266) QRSD interval (test code = 260) QT interval (test code = 264) QTC interval (test code = 265) P axis 1 (test code = 267) QRS axis 1 (test code = 268) T wave axis (test code = 270) EKG impression (test Normal sinus code = 273) rhythm-Right atrial enlargement-Borderline ECG-In automated comparison with ECG of 14-OCT-2021 11:26,-No significant change was found- [address]2022-03-21 05:10:54 Test Item Value Reference Range Interpretation Comments Ventricular rate (test code = 253) Atrial rate (test code = 255) IN interval (test code = 266) QRSD interval (test code = 260) QT interval (test code = 264) QTC interval (test code = 265) P axis 1 (test code = 267) QRS axis 1 (test code = 268) T wave axis (test code = 270) EKG impression (test Normal sinus code = 273) rhythm-Right atrial enlargement-Borderline ECG-In automated comparison with ECG of 14-OCT-2021 11:26,-No significant change was found- [facility] (w Contrast, Strain and 3D if needed)2021-10-11 23:35:53 Test Item Value Reference Range Interpretation Comments LA Vol 4C (test code 31.00 ml = 5512183102) LA diam s (test code 4.00 cm = 4972621935) Aortic Root (test 2.73 cm code = 2450424277) AR maxPG (test code = 1846982439) D E excurs (test code = 1066624552) E f slope (test code = 2529951272) E prime lat (test code = 3708312240) E laura sept (test code = 1989717406) PV acc T slope (test code = 3381089962) PALACIOS BP EF (test 63.00 % code = 8872011372) LA VOL 2C (test code 52.00 ml = 4573023902) AoV Area, Vmax (test 1.80 cm2 code = 3524358129) AoV Area, VTI (test 2.21 cm2 code = 2306581855) AoV Mean PG (test mmHg code = 3676424612) AoV Peak PG (test mmHg code = 2461168726) AoV Vmax (test code = 1.96 m/s 2028797925) AoV VTI (test code = 0.37 m 8247845316) BSA Puente (test code = 1.55 m2 9863554814) BSA (test code = 1.52 m2 9410196302) IVS,d (test code = 1.09 cm 5151483844) IVS/LVPW,2D (test code = 0406931051) LV,d (test code = 3.81 cm 3160920821) LV EF,2D (test code = 62.41 % 9287289330) LV EF,A2C (test code 60.34 % = 5381544360) LV EF,A4C (test code 64.47 % = 8230278491) LV EF,BP (test code = 62.54 % 4287283208) Lorne Golden,d A2C (test 6.48 cm code = 1342984945) Lorne Golden,d A4C (test 6.43 cm code = 7026595665) Lorne Golden,s A2C (test 5.21 cm code = 3638999440) Lorne Golden,s A4C (test 5.16 cm code = 8002874735) LV,s (test code = 2.75 cm 2708002015) LV SV,A2C (test code 36.28 % = 1116060820) LV SV,A4C (test code 45.96 % = 0047889568) LV SV,BP (test code = 40.98 % 3222940014) LV Vol,d A2C (test 60.12 mL code = 4919549785) LV Vol,d A4C (test 71.28 ml code = 3182839999) LV Vol,d BP (test 65.54 ml code = 7706798094) LV Vol,s A2C (test 23.84 mL code = 6796393523) LV Vol,s A4C (test 25.32 ml code = 2660563652) LV Vol,s BP (test 24.55 nl code = 9833759717) LVOT area (test code 2.46 cm2 = 1284014600) LVOT Diam,S (test 1.77 cm code = 9525044014) LVOT Vmax (test code 1.38 m/s = 1164830086) LVOT VTI (test code = 0.31 m 7834631698) LVPWD,d (test code = 0.91 cm 9799188882) RVSP (TR) (test code mmHg = 8091432856) TR Vpeak (test code = 2.35 mm/s 9954869929) AR Press Half Time 810.31 ms (test code = 7708595195) MV E A ratio (test code = 7455247397) RA pressure (test mmHg code = 5033680177) TR pk grad (test code mmHg = 9115050120) AoV area i VTI BSA 1.45 cm2/m2 Leena (test code = 9953783426) LV SI MOD BP BSA 26.96 ml/m2 Leena (test code = 0294026548) LV Vol Index s bpmod 43.10 ml/m2 BSA Leena (test code = 1660329258) PV Vmn (test code = 16.15 m/s 3630037240) BMI (test code = 22.67 kg/m2 2284659148) E wave decelartion msec time (test code = 6436156075) MV Peak A Satya (test 1.53 m/s code = 9757283162) MV valve area p 1/2 2.35 cm2 method (test code = 5447289417) MV Peak E Satya (test 0.87 m/s code = 0393268571) MV stenosis pressure 93.76 ms 1/2 time (test code = 8759422821) LVOT stroke volume 0.76 cm3 (test code = 0508409626) AV LVOT peak gradient mmHg (test code = 5155818840) RVSP (test code = mmHg 0889489577) MV mean gradient mmHg (test code = 3481379850) LV SYS VOL (test code 28.32 ml = 6594806268) LV AUGUST VOL (test 62.47 ml code = 2486151443) LA area s A4C (test 14.57 cm2 code = 9648922897) LV SI Teich 2D (test 22.46 ml/m2 code = 3814529591) LV SV Teich 2D (test 34.15 ml code = 7117804207) LV Vol s Teich PSAX 28.32 ml (test code = 5814900006) LVOT SI (test code = 49.71 ml/m2 7190266790) MR peak grad (test mmHg code = 0841830540) MV Vmax (test code = 1.56 m 9022658903) MV VTI Tips (test 0.48 m code = 8155284775) BSA Haycock (test 1.54 m2 code = 6755297636) AoV Cusp sep (test code = 4986406741) AoV Vmn (test code = 1172214732) IVS s 2D (test code = 4285402815) LV FS Teich 2D (test code = 9335654442) MV AE ratio (test code = 4722169879) AR slope (test code = 3696223769) Ar Vmax (test code = 2638704907) LA Ao Ratio Mmode (test code = 1898085465) LV FS Cube 2D (test code = 7453053944) LVOT Vmn (test code = 4940536352) Pt Size (test code = 7560010137) Pt Wt (test code = 4351304265) Ao root annulus (test 2.73 cm code = 1658679296) PV AT (test code = msec 5982275148) Aov area Vmn (test 2.00 cm2 code = 5444532608) LVOT mean grad (test mmHg code = 8635749705) AoV area I VMN bsa 1.32 cm2/m2 (test code = 6881842467) AR DT (test code = msec 6742585538) AR pk grad (test code mmHg = 9305077005) IVS pct thck PLAX 32.63 % (test code = 3332235411) LV SI Cube 2D (test 22.76 ml/m2 code = 5063796053) LV SV Cube 2D (test 34.61 ml code = 9837504478) LV vol d cube 2D 55.45 ml (test code = 3195575662) LV vol s cube 2D 20.85 ml (test code = 7830214004) LVPW pct thck PLAX 50.70 % (test code = 5770695224) LVPW s PLAX (test 1.37 cm code = 4105080255) MV Decel slope (test 2.68 m/s2 code = 4494674340) LA Vol MOD A4C (test 30.78 ml code = 6415128786) Velocity Ratio 0.70 m/s (V1/V2) (test code = 4689) EF (test code = 54.67 % 4818189332) E/A ratio (test code = 0457516150) LV Systolic Volume 15.68 mL/m2 Index (test code = 2344381676) LV Diastolic Volume 39.55 mL/m2 Index (test code = 7167283754) LVOT VTI (CM) (test 31.00 cm code = 1007244392) AMIRA (test code = AMIRA) Left ventricular systolic function is normal. There is mild concentric left ventricular hypertrophy. Left Ventricular ejection fraction is 55 - 60%. Left atrium size is mildly dilated. There is a pericardial effusion. There is a trivial pericardial effusion. Moderate mitral annular calcification. Spectral Doppler shows impaired relaxation pattern of left ventricular diastolic filling. Left VentricleThe left ventricular chamber size is normal. Left ventricular systolic function is normal. Left Ventricular ejection fraction is 55 - 60%. There is mild left ventricular concentric hypertrophy.Right VentricleNormal right ventricular size and global function.Left AtriumLA size is mildly dilated.Right AtriumThe right atrium is normal.IVC/SVCThe inferior vena cava and hepatic vein were normal in this study.Mitral ValveThe mitral valve appears normal. Trace mitral valve regurgitation. No evidence of mitral valve stenosis. Moderate mitral annular calcification.Tricuspid ValveThe tricuspid valve appears normal. Trace tricuspid valve regurgitation. No evidence of tricuspid valve stenosis. Normal pulmonary artery systolic pressure. RA pressure is normal. No evidence of pulmonary hypertension present.Aortic ValveThe aortic valve appears trileaflet and mildly calcified. Mild aortic regurgitation. No evidence of aortic valve stenosis.Pulmonic ValveNo significant pulmonary valve regurgitation. No evidence of pulmonary valve stenosis.PericardiumTher e is pericardial effusion. There is trivial pericardial effusion.DiastologySpect ral Doppler shows impaired relaxation pattern of LV diastolic filling. Normal LV filling pressure.AortaAortic root is normal. [facility], (w Contrast, Strain and 3D if needed)2021-10-11 23:35:53 Test Item Value Reference Range Interpretation Comments LA Vol 4C (test code 31.00 ml = 3814367535) LA diam s (test code 4.00 cm = 3786339862) Aortic Root (test 2.73 cm code = 7836896246) AR maxPG (test code = 5619443025) D E excurs (test code = 2257255087) E f slope (test code = 4170604740) E prime lat (test code = 7138108988) E laura sept (test code = 2170148761) PV acc T slope (test code = 6722781814) PALACIOS BP EF (test 63.00 % code = 2713540683) LA VOL 2C (test code 52.00 ml = 1035639394) AoV Area, Vmax (test 1.80 cm2 code = 9713813648) AoV Area, VTI (test 2.21 cm2 code = 7407606787) AoV Mean PG (test mmHg code = 5756545935) AoV Peak PG (test mmHg code = 2182038723) AoV Vmax (test code = 1.96 m/s 3378573241) AoV VTI (test code = 0.37 m 7403910123) BSA Puente (test code = 1.55 m2 4255259196) BSA (test code = 1.52 m2 5629608908) IVS,d (test code = 1.09 cm 2220918363) IVS/LVPW,2D (test code = 1532851787) LV,d (test code = 3.81 cm 6392219339) LV EF,2D (test code = 62.41 % 6794669724) LV EF,A2C (test code 60.34 % = 5252019593) LV EF,A4C (test code 64.47 % = 0710908874) LV EF,BP (test code = 62.54 % 3175921627) Lorne Golden,d A2C (test 6.48 cm code = 1745855787) Lorne Golden,d A4C (test 6.43 cm code = 8546969888) Lorne Golden,s A2C (test 5.21 cm code = 6601438967) Lorne Golden,s A4C (test 5.16 cm code = 1776233127) LV,s (test code = 2.75 cm 1021388326) LV SV,A2C (test code 36.28 % = 9921728884) LV SV,A4C (test code 45.96 % = 8406511631) LV SV,BP (test code = 40.98 % 6114280983) LV Vol,d A2C (test 60.12 mL code = 6608435699) LV Vol,d A4C (test 71.28 ml code = 7609450925) LV Vol,d BP (test 65.54 ml code = 2459246462) LV Vol,s A2C (test 23.84 mL code = 7409542714) LV Vol,s A4C (test 25.32 ml code = 9967158419) LV Vol,s BP (test 24.55 nl code = 5670672631) LVOT area (test code 2.46 cm2 = 6416812344) LVOT Diam,S (test 1.77 cm code = 7713918893) LVOT Vmax (test code 1.38 m/s = 6776726383) LVOT VTI (test code = 0.31 m 4042167751) LVPWD,d (test code = 0.91 cm 0832940937) RVSP (TR) (test code mmHg = 6998984601) TR Vpeak (test code = 2.35 mm/s 3419643942) AR Press Half Time 810.31 ms (test code = 4969577327) MV E A ratio (test code = 7515938648) RA pressure (test mmHg code = 1488300268) TR pk grad (test code mmHg = 2107285910) AoV area i VTI BSA 1.45 cm2/m2 Camp (test code = 8032605842) LV SI MOD BP BSA 26.96 ml/m2 Leena (test code = 2358370951) LV Vol Index s bpmod 43.10 ml/m2 BSA Leena (test code = 0256434874) PV Vmn (test code = 16.15 m/s 2245826888) BMI (test code = 22.67 kg/m2 7906490461) E wave decelartion msec time (test code = 3446073538) MV Peak A Satya (test 1.53 m/s code = 8642441240) MV valve area p 1/2 2.35 cm2 method (test code = 2781525093) MV Peak E Satya (test 0.87 m/s code = 4913368163) MV stenosis pressure 93.76 ms 1/2 time (test code = 6618310968) LVOT stroke volume 0.76 cm3 (test code = 0805368696) AV LVOT peak gradient mmHg (test code = 5968503077) RVSP (test code = mmHg 2850727747) MV mean gradient mmHg (test code = 4538274866) LV SYS VOL (test code 28.32 ml = 4449219964) LV AUGUST VOL (test 62.47 ml code = 2599651290) LA area s A4C (test 14.57 cm2 code = 0761088806) LV SI Teich 2D (test 22.46 ml/m2 code = 9139705703) LV SV Teich 2D (test 34.15 ml code = 2537534167) LV Vol s Teich PSAX 28.32 ml (test code = 7401405352) LVOT SI (test code = 49.71 ml/m2 6618433151) MR peak grad (test mmHg code = 1672767959) MV Vmax (test code = 1.56 m 5515283095) MV VTI Tips (test 0.48 m code = 2590123972) BSA Haycock (test 1.54 m2 code = 8227127741) AoV Cusp sep (test code = 1134630758) AoV Vmn (test code = 7832544721) IVS s 2D (test code = 7904150718) LV FS Teich 2D (test code = 2183564266) MV AE ratio (test code = 3563015915) AR slope (test code = 3605159794) Ar Vmax (test code = 8613933197) LA Ao Ratio Mmode (test code = 8187458018) LV FS Cube 2D (test code = 5427219375) LVOT Vmn (test code = 2306162300) Pt Size (test code = 7328397771) Pt Wt (test code = 6866457052) Ao root annulus (test 2.73 cm code = 5696223734) PV AT (test code = msec 5992545564) Aov area Vmn (test 2.00 cm2 code = 0458368254) LVOT mean grad (test mmHg code = 6830319687) AoV area I VMN bsa 1.32 cm2/m2 (test code = 0044407116) AR DT (test code = msec 5297521564) AR pk grad (test code mmHg = 7534594430) IVS pct thck PLAX 32.63 % (test code = 0386664717) LV SI Cube 2D (test 22.76 ml/m2 code = 6826412883) LV SV Cube 2D (test 34.61 ml code = 3854005258) LV vol d cube 2D 55.45 ml (test code = 6701617587) LV vol s cube 2D 20.85 ml (test code = 3760102045) LVPW pct thck PLAX 50.70 % (test code = 1521597729) LVPW s PLAX (test 1.37 cm code = 0187929505) MV Decel slope (test 2.68 m/s2 code = 6802297394) LA Vol MOD A4C (test 30.78 ml code = 9442717350) Velocity Ratio 0.70 m/s (V1/V2) (test code = 4689) EF (test code = 54.67 % 8047011830) E/A ratio (test code = 8256996583) LV Systolic Volume 15.68 mL/m2 Index (test code = 0089086256) LV Diastolic Volume 39.55 mL/m2 Index (test code = 2199816798) LVOT VTI (CM) (test 31.00 cm code = 0264287459) AMIRA (test code = AMIRA) Left ventricular systolic function is normal. There is mild concentric left ventricular hypertrophy. Left Ventricular ejection fraction is 55 - 60%. Left atrium size is mildly dilated. There is a pericardial effusion. There is a trivial pericardial effusion. Moderate mitral annular calcification. Spectral Doppler shows impaired relaxation pattern of left ventricular diastolic filling. Left VentricleThe left ventricular chamber size is normal. Left ventricular systolic function is normal. Left Ventricular ejection fraction is 55 - 60%. There is mild left ventricular concentric hypertrophy.Right VentricleNormal right ventricular size and global function.Left AtriumLA size is mildly dilated.Right AtriumThe right atrium is normal.IVC/SVCThe inferior vena cava and hepatic vein were normal in this study.Mitral ValveThe mitral valve appears normal. Trace mitral valve regurgitation. No evidence of mitral valve stenosis. Moderate mitral annular calcification.Tricuspid ValveThe tricuspid valve appears normal. Trace tricuspid valve regurgitation. No evidence of tricuspid valve stenosis. Normal pulmonary artery systolic pressure. RA pressure is normal. No evidence of pulmonary hypertension present.Aortic ValveThe aortic valve appears trileaflet and mildly calcified. Mild aortic regurgitation. No evidence of aortic valve stenosis.Pulmonic ValveNo significant pulmonary valve regurgitation. No evidence of pulmonary valve stenosis.PericardiumTher e is pericardial effusion. There is trivial pericardial effusion.DiastologySpect ral Doppler shows impaired relaxation pattern of LV diastolic filling. Normal LV filling pressure.AortaAortic root is normal. [facility] KzorcjzsGQPY-GnY-6 (COVID-19) RNA [Presence] in Respiratory specimen by FROYLAN with probe [id number] 21:15:26 Test Item Value Reference Range Interpretation Comments SARS-CoV-2 (COVID-19) RNA Not detected [Presence] in Respiratory specimen by FROYLAN with probe detection (test code = 59903-6) Whether patient is employed in a Unknown healthcare setting (test code = 19149-1) Whether the patient has symptoms Unknown related to condition of interest (test code = 37080-4) Whether the patient was Unknown hospitalized for condition of interest (test code = 73225-5) Whether the patient was admitted Unknown to intensive care unit (ICU) for condition of interest (test code = 66525-3) Whether patient resides in a Unknown congregate care setting (test code = 74964-4) status (test code = Unknown 65892-7) Date and time of symptom onset Unknown (test code = 35515-9) [id number] Test Item Value Reference Range Interpretation Comments Cholesterol, total 145 mg/dL See_Comment [Automat ed (test code = 2093-3) message ] The system which generated this result transmitted reference range : <=200. The reference range was not used to interpret this result as normal/abnormal . HDL cholesterol 48 mg/dL See_Comment L [Automated (test code = 2085-9) message ] The system which generated this result transmitted reference range : > OR = 50. The reference range was not used to interpret this result as normal/abnormal . Triglycerides (test 124 mg/dL See_Comment [Automa carolina code = 2571-8) message] The system which generated this result transmitted reference range : <=150. The reference range was not used to interpret this result as normal/abnormal . LDL cholesterol mg/dL (calc) Reference ra nge: calculated (test <100 Desira ble code = 19709-3) range <100 m g/dL for primary prevention; <70 mg/dL for patients with C HD or diabetic patients with > or = 2 CHD risk factors. LDL-C is now calculated using the Franklin-Randi calculation, which is a validated novel method providin g better accuracy than the Friedewald equation in the estimation of LDL-C. Franklin Penaloza S et al. NIRAJ. 2013;310(19): 4573-3397 (http://educati on .QuestDiagnosti Assembly .com/faq/MHB013 ) Cholesterol/HDL See_Comment [Automated ratio (test code = message] The 9830-1) system which generated this result transmitted reference range : <5.0 (calc). Th e reference range was not used to interpret this result as normal/abnormal . Non-HDL cholesterol See_Comment For phylicia ents with (test code = diabetes plus 1 56926-5) major ASCVD ris k factor, treatin g to a non-HDL-C goal of <100 mg/dL (LDL-C of <70 mg/dL) is considered a therapeutic option. [Automated message] The system which generated this result transmitted reference range : <130 mg/dL (calc). The reference range was not used to interpret this result as normal/abnormal . AMIRA (test code = FASTING:UNKNOWN AMIRA) FASTING: UNKNOWN RAC (test code = Performing RAC) Organization Information: Site ID: RGA [facility] Address: [address] [place] [address] Director: Jake Guillen Lab Interpretation Abnormal (test code = 39976-1) [facility] [id number] 22:24:00 Test Item Value Reference Range Interpretation Comments Amylase (test code = 45 U/L 1798-8) AMIRA (test code = FASTING:UNKNOWN FASTING: AMIRA) UNKNOWN RAC (test code = Performing Organization RAC) Information: Site ID: RGA [facility]: [facility] Address: [address] [place] [address] Director: Jake Guillen [facility] [id number] 22:24:00 Test Item Value Reference Interpretation Comments Range Hemoglobin A1C (test See_Comment H For nhung eone without code = 4548-4) known diabete s, a hemoglobin A1cv alue [...] for diagnosis o f diabetes for children. [Automated mess age] The system [employer] generated this result transmit carolina reference range : <5.7 % of total Hgb. The refere nce range was not u sed to interpret th is result as normal/abnormal . AMIRA (test code = FASTING:UNKNOWN AMIRA) FASTING: UNKNOWN RAC (test code = Performing RAC) Organization Information: Site ID: [facility] Name: [facility] Address: [address] [place] [phone] Director: Jake Guillen Lab Interpretation Abnormal (test code = 96657-2) [facility] [id number] 22:24:00 Test Item Value Reference Range Interpretation Comments Lipase (test code = 47 U/L 760 3040-3) AMIRA (test code = FASTING:UNKNOWN FASTING: AMIRA) UNKNOWN RAC (test code = Performing Organization RAC) Information: Site ID: [facility] Name: [facility] Address: [address] [place] [phone] Director: Jake Guillen [facility] D 25 hydroxy [id number] 22:24:00 Test Item Value Reference Range Interpretation Comments Vitamin D, 36 ng/mL 30-100 Vitamin D Statu s 25-hydroxy (test 25-OH Vitam in D: code = 1988-) Deficiency: < 20 ng/mLInsufficie ncy : 20 - 29 ng/mLOptimal: > or = 30 ng/mL For 25-OH Vitamin D testing on patients on D2-supplementat ion and patients fo r whom quantitati on of D2 and D3 fractions is required, the QuestAssureD(TM )25 -OH VIT D, (D2,D3), LC/MS/ MS is recommended: order code 9288 8 (patients >2yrs).See Note 1 Note 1 For additional information, please refer to http://educatio n.Q uestDiagnostics .co m/faq/GMX822 (T his link is being provided for informational/e marissa ational purpose s only.) AMIRA (test code = FASTING:UNKNOWN AMIRA) FASTING: UNKNOWN RAC (test code = Performing RAC) Organization Information: Site ID: RGA [facility]: [facility] Address: [address] [place] [phone] Director: Jake Guillen [facility] / creatinine urine [id number] 22:24:00 Test Item Value Reference Interpretation Comments Range Creatinine, urine 68 mg/dL 20-275 (mg/dL) (test code = 2161-8) Microalbumin, urine 40.5 mg/dL See Note: Referenc e Range: (test code = Reference [place] Not 100[address]-3) established Res ults verified by rep eat analysis on dilution. Microalbumin/creati See_Comment H The ADA defines nine ratio (test abnormaliti es in code = 9318-7) albuminexcret ion as follows: Albumi pardeep Category Result (mcg/mg creatin ine) Normal to Mildl y increased <30Moderately increased 30-29 9 Severely increa sed > OR = 300 The AD A recommends that at least two of threespecimens collected withi n a 3-6 month perio d beabnormal befo re considering a patient to bewi thin a diagnostic category. [Auto mated message] The sy stem which generated this result transmit caroilna reference range : <30 mcg/mg creat. T he reference range was not used to interpret this result as normal/abnormal . AMIRA (test code = FASTING:UNKNOWN AMIRA) FASTING: UNKNOWN RAC (test code = Performing RAC) Organization Information: Site ID: RGA Name: [facility] Address: [address] [place] [address] Director: Jake Guillen Lab Interpretation Abnormal (test code = 02725-5) [facility] [id number] 22:24:00 Test Item Value Reference Range Interpretation Comments Cholesterol, total 145 mg/dL See_Comment [Automat ed (test code = 2093-3) message ] The system which generated this result transmitted reference range : <=200. The reference range was not used to interpret this result as normal/abnormal . HDL cholesterol 48 mg/dL See_Comment L [Automated (test code = 2085-9) message ] The system which generated this result transmitted reference range : > OR = 50. The reference range was not used to interpret this result as normal/abnormal . Triglycerides (test 124 mg/dL See_Comment [Automa carolina code = 2571-8) message] The system which generated this result transmitted reference range : <=150. The reference range was not used to interpret this result as normal/abnormal . LDL cholesterol mg/dL (calc) Reference ra nge: calculated (test <100 Desira ble code = 19965-0) range <100 m g/dL for primary prevention; <70 mg/dL for patients with C HD or diabetic patients with > or = 2 CHD risk factors. LDL-C is now calculated using the Franklin-Randi calculation, which is a validated novel method providin g better accuracy than the Friedewald equation in the estimation of LDL-C. Franklin S S et al. NIRAJ. 2013;310(19): 1330-1830 (http://educati on .LoiLo .com/faq/TMC274 ) Cholesterol/HDL See_Comment [Automated ratio (test code = message] The 9830-1) system which generated this result transmitted reference range : <5.0 (calc). Th e reference range was not used to interpret this result as normal/abnormal . Non-HDL cholesterol See_Comment For phylicia ents with (test code = diabetes plus 1 63870-6) major ASCVD ris k factor, treatin g to a non-HDL-C goal of <100 mg/dL (LDL-C of <70 mg/dL) is considered a therapeutic option. [Automated message] The system which generated this result transmitted reference range : <130 mg/dL (calc). The reference range was not used to interpret this result as normal/abnormal . AMIRA (test code = FASTING:UNKNOWN AMIRA) FASTING: UNKNOWN RAC (test code = Performing RAC) Organization Information: Site ID: [facility] Name: [facility] Address: [address] [place] [address] Director: Jake Guillen Lab Interpretation Abnormal (test code = 31523-2) [facility] [id number] 22:24:00 Test Item Value Reference Range Interpretation Comments Amylase (test code = 45 U/L 1798-8) AMIAR (test code = FASTING:UNKNOWN FASTING: AMIRA) UNKNOWN RAC (test code = Performing Organization RAC) Information: Site ID: [facility] Name: [facility] Address: [address] [place] [phone] Director: Jake Guillen [facility] [id number] 22:24:00 Test Item Value Reference Interpretation Comments Range Hemoglobin A1C (test See_Comment H For nhung back without code = 4548-4) known diabete s, a hemoglobin A1cv alue [...] for diagnosis o f diabetes for children. [Automated mess age] The system [employer] generated this result transmit carolina reference range : <5.7 % of total Hgb. The refere nce range was not u sed to interpret th is result as normal/abnormal . AMIRA (test code = FASTING:UNKNOWN AMIRA) FASTING: UNKNOWN RAC (test code = Performing RAC) Organization Information: Site ID: RGA [facility]: [facility] Address: [address] [place] [phone] Director: Jake Guillen Lab Interpretation Abnormal (test code = 83865-9) [facility] [id number] 22:24:00 Test Item Value Reference Range Interpretation Comments Lipase (test code = 47 U/L 7-60 3040-3) AMIRA (test code = FASTING:UNKNOWN FASTING: AMIRA) UNKNOWN RAC (test code = Performing Organization RAC) Information: Site ID: RGA [facility]: [facility] Address: [address] [place] [phone] Director: Jake Guillen [facility] D 25 hydroxy [id number] 22:24:00 Test Item Value Reference Range Interpretation Comments Vitamin D, 36 ng/mL 30-100 Vitamin D Statu s 25-hydroxy (test 25-OH Vitam in D: code = 1989-3) Deficiency: < 20 ng/mLInsufficie ncy : 20 - 29 ng/mLOptimal: > or = 30 ng/mL For 25-OH Vitamin D testing on patients on D2-supplementat ion and patients fo r whom quantitati on of D2 and D3 fractions is required, the QuestAssureD(TM )25 -OH VIT D, (D2,D3), LC/MS/ MS is recommended: order code 9288 8 (patients >2yrs).See Note 1 Note 1 For additional information, please refer to http://educatio n.Q uestDiagnostics .co m/faq/MAJ343 (T his link is being provided for informational/e marissa ational purpose s only.) AMIRA (test code = FASTING:UNKNOWN AMIRA) FASTING: UNKNOWN RAC (test code = Performing RAC) Organization Information: Site ID: RGA Name: [facility] Address: [address] [place] [phone] Director: Jake Guillen [facility] / creatinine urine [id number] 22:24:00 Test Item Value Reference Interpretation Comments Range Creatinine, urine 68 mg/dL 20-275 (mg/dL) (test code = 2161-8) Microalbumin, urine 40.5 mg/dL See Note: Referenc e Range: (test code = Reference Range Not 48852-2) established Res ults verified by rep eat analysis on dilution. Microalbumin/creati See_Comment H The ADA defines nine ratio (test abnormaliti es in code = 9318-7) albuminexcret ion as follows: Albumi pardeep Category Result (mcg/mg creatin ine) Normal to Mildl y increased <30Moderately increased 30-29 9 Severely increa sed > OR = 300 The AD A recommends that at least two of threespecimens collected withi n a 3-6 month perio d beabnormal befo re considering a patient to bewi thin a diagnostic category. [Auto mated message] The sy stem which generated this result transmit carolina reference range : <30 mcg/mg creat. T he reference range was not used to interpret this result as normal/abnormal . AMIRA (test code = FASTING:UNKNOWN AMIRA) FASTING: UNKNOWN RAC (test code = Performing RAC) Organization Information: Site ID: RGA [facility]: [facility] Address: [address] [place] [phone] Director: Jake Guillen Lab Interpretation Abnormal (test code = 44865-8) [facility] [id number] 22:24:00 Test Item Value Reference Range Interpretation Comments Cholesterol, total 145 mg/dL See_Comment [Automat ed (test code = 2093-3) message ] The system which generated this result transmitted reference range : <=200. The reference range was not used to interpret this result as normal/abnormal . HDL cholesterol 48 mg/dL See_Comment L [Automated (test code = 2085-9) message ] The system which generated this result transmitted reference range : > OR = 50. The reference range was not used to interpret this result as normal/abnormal . Triglycerides (test 124 mg/dL See_Comment [Automa carolina code = 2571-8) message] The system which generated this result transmitted reference range : <=150. The reference range was not used to interpret this result as normal/abnormal . LDL cholesterol mg/dL (calc) Reference ra nge: calculated (test <100 Desira ble code = 70256-4) range <100 m g/dL for primary prevention; <70 mg/dL for patients with C HD or diabetic patients with > or = 2 CHD risk factors. LDL-C is now calculated using the Franklin-Randi calculation, which is a validated novel method providin g better accuracy than the Friedewald equation in the estimation of LDL-C. Franklin S S et al. NIRAJ. 2013;310(19): 9464-4907 (http://educati on .[facility] .com/faq/TGL920 ) Cholesterol/HDL See_Comment [Automated ratio (test code = message] The 9830-1) system which generated this result transmitted reference range : <5.0 (calc). Th e reference range was not used to interpret this result as normal/abnormal . Non-HDL cholesterol See_Comment For phylicia ents with (test code = diabetes plus 1 10022-7) major ASCVD ris k factor, treatin g to a non-HDL-C goal of <100 mg/dL (LDL-C of <70 mg/dL) is considered a therapeutic option. [Automated message] The system which generated this result transmitted reference range : <130 mg/dL (calc). The reference range was not used to interpret this result as normal/abnormal . AMIRA (test code = FASTING:UNKNOWN AMIRA) FASTING: UNKNOWN RAC (test code = Performing RAC) Organization Information: Site ID: JOVI Name: [facility] Address: [address] [place], [place] [phone] Director: Jake Guillen Lab Interpretation Abnormal (test code = 57187-6) [facility] [id number] 22:24:00 Test Item Value Reference Range Interpretation Comments Amylase (test code = 45 U/L 21-101 1798-8) AMIRA (test code = FASTING:UNKNOWN FASTING: AMIRA) UNKNOWN RAC (test code = Performing Organization RAC) Information: Site ID: ROMINAA [facility]: [facility] Address: [address] [place] [phone] Director: Jake Guillen [facility] [id number] 22:24:00 Test Item Value Reference Interpretation Comments Range Hemoglobin A1C (test See_Comment H For nhung eone without code = 4548-4) known diabete s, a hemoglobin A1cv alue [...] for diagnosis o f diabetes for children. [Automated mess age] The system F[employer] generated this result transmit carolina reference range : <5.7 % of total Hgb. The refere nce range was not u sed to interpret th is result as normal/abnormal . AMIRA (test code = FASTING:UNKNOWN AMIRA) FASTING: UNKNOWN RAC (test code = Performing RAC) Organization Information: Site ID: ROMINAA Name: [facility] Address: [address] [place] [phone] Director: Jake Guillen Lab Interpretation Abnormal (test code = 72117-7) [facility] [id number] 22:24:00 Test Item Value Reference Range Interpretation Comments Lipase (test code = 47 U/L 7-60 3040-3) AMIRA (test code = FASTING:UNKNOWN FASTING: AMIRA) UNKNOWN RAC (test code = Performing Organization RAC) Information: Site ID: JOVI [facility]: [facility] Address: [address] [place] [phone] Director: [place] [facility] hydroxy [id number] 22:24:00 Test Item Value Reference Range Interpretation Comments Vitamin D, 36 ng/mL 30-100 Vitamin D Statu s 25-hydroxy (test 25-OH Vitam in D: code = 1988-) Deficiency: < 20 ng/mLInsufficie ncy : 20 - 29 ng/mLOptimal: > or = 30 ng/mL F or 25-OH Vitamin D testing on patients on D2-supplementat ion and patients fo r whom quantitati on of D2 and D3 fractions is required, the QuestAssureD(TM )25 -OH VIT D, (D2,D3), LC/MS/ MS is recommended: order code 9288 8 (patients >2yrs).See Note 1 Note 1 For additional information, please refer to http://educatio n.Q uestDiagnostics .co m/faq/JXL759 (T his link is being provided for informational/e marissa ational purpose s only.) AMIRA (test code = FASTING:UNKNOWN AMIRA) FASTING: UNKNOWN RAC (test code = Performing RAC) Organization Information: Site ID: JOVI [facility]: [facility] Address: [address] [place] [phone] [facility] [id number] 22:24:00 Test Item Value Reference Interpretation Comments Range Creatinine, urine 68 mg/dL 20-275 (mg/dL) (test code = 2161-8) Microalbumin, urine 40.5 mg/dL See Note: Referenc e Range: (test code = Reference Range Not 57269-0) established Res ults verified by rep eat analysis on dilution. Microalbumin/creati See_Comment H The ADA defines nine ratio (test abnormaliti es in code = 9318-7) albuminexcret ion as follows: Albumi pardeep Category Result (mcg/mg creatin ine) Normal to Mildl y increased <30Moderately increased 30-29 9 Severely increa sed > OR = 300 The AD A recommends that at least two of threespecimens collected withi n a 3-6 month perio d beabnormal befo re considering a patient to bewi thin a diagnostic category. [Auto mated message] The sy stem which generated this result transmit carolina reference range : <30 mcg/mg creat. T he reference range was not used to interpret this result as normal/abnormal . AMIRA (test code = FASTING:UNKNOWN AMIRA) FASTING: UNKNOWN RAC (test code = Performing RAC) Organization Information: Site ID: RGA Name: [employer] [facility] Address: [address] [place] [phone] Director: Jake Guillen Lab Interpretation Abnormal (test code = 59902-7) [facility] [id number] 17:26:55 Test Item Value Reference Range Interpretation Comments POC glucose (test code 367 mg/dL 65-99 [facility] Opera tor Name: Chaim = [id number]) LuisvDgeoff ID : [id number] Lab Interpretation Abnormal (test code = 77789-9) [facility]-CoV-2 (COVID-19) RNA [Presence] in Respiratory specimen by FROYLAN with probe [id number] 04:09:00 Test Item Value Reference Range Interpretation Comments SARS-CoV-2 (COVID-19) RNA Not detected Not-Detected [Presence] in Respiratory specimen by FROYLAN with probe detection (test code = 55812-5) Whether patient is employed in a healthcare setting (test code = 27716-9) Whether the patient has symptoms related to condition of interest (test code = 51841-6) Patient was hospitalized because of this condition (test code = 78212-2) Whether the patient was admitted to intensive care unit (ICU) for condition of interest (test code = 59635-3) Whether patient resides in a congregate care setting (test code = 10473-9) [id number] 05:57:42 Test Item Value Reference Range Interpretation Comments Urine culture (test SEE COMMENT Bacteriu polo screen code = 4589084) negative. [facility] [Presence] in Respiratory specimen by FROYLAN with probe [id number] 18:33:15 Test Item Value Reference Range Interpretation Comments SARS-CoV-2 (COVID-19) RNA Not detected Not-Detected [Presence] in Respiratory specimen by FROYLAN with probe detection (test code = 94871-9) Whether patient is employed in a healthcare setting (test code = 85242-7) Whether the patient has symptoms related to condition of interest (test code = 30781-2) Patient was hospitalized because of this condition (test code = 34970-1) Whether the patient was admitted to intensive care unit (ICU) for condition of interest (test code = 68113-6) Whether patient resides in a congregate care setting (test code = 63831-4) TRISHA Barnhart [id number] 18:15:13 Test Item Value Reference Range Interpretation Comments Fungus culture No growth Specimen isolate (test after 4 weeks InformationSp ecimen code = 1441) of Source: SinusSp ecimen incubation. [facility] 18:12:52 Test Item Value Reference Range Interpretation Comments SUPPLIER NAME (test XMED Oxygen and code = 6415) Medical SUPPLIER PHONE (test [phone] code = 6416) ORDER STATUS (test code Delivery Successful = 6417) DELIVERY NOTE (test code = 6419) REQUESTED DELIVEY DATE 09/22/2020 (test code = 6420) ITEM DESCRIPTION (test Jada An Junior Qty: 1 code = 6423) EXPECTED DELIVERY DATE 09/24/2020 (test code = 6421) ACTUAL DELIVERY DATE 09/24/2020 (test code = 6422) [facility] [id number] 23:54:03 Test Item Value Reference Range Interpretation Comments Ventricular rate (test code = 253) Atrial rate (test code = 255) IN interval (test code = 266) QRSD interval [...] of 30-AUG-2020 14:17,-Questionable change in QRS axis- Litzy Feldman-CoV-2 (COVID-19) RNA [Presence] in Respiratory specimen by FROYLAN with probe [id number] 19:48:29 Test Item Value Reference Range Interpretation Comments SARS-CoV-2 (COVID-19) RNA Not detected Not-Detected [Presence] in Respiratory specimen by FROYLAN with probe detection (test code = 95695-9) TRISHA BROCKAnaerobic [id number] 15:06:25 Test Item Value Reference Range Interpretation Comments Anaerobic No anaerobic Specimen culture isolate organisms InformationS pecimen (test code = isolated. Source: SinusSp ecimen 552) Site: Nose Litzy MooreFungus [id number] 13:51:27 Test Item Value Reference Range Interpretation Comments Fungus smear No fungi Specimen (test code = observed. InformationSpec imen Source: 1443) SinusSpecimen S ite: Nose Litzy Feldman-CoV-2 (COVID-19) IgG+IgM Ab [Presence] in Serum or Plasma by [id number] 06:21:00 Test Item Value Reference Range Interpretation Comments SARS-CoV-2 (COVID-19) IgG+IgM Ab Positive [Presence] in Serum or Plasma by Immunoassay (test code = 21250-5) TRISHA JUDGE-CoV-2 (COVID-19) RNA [Presence] in Respiratory specimen by FROYLAN with probe [id number] 12:03:17 Test Item Value Reference Range Interpretation Comments SARS-CoV-2 (COVID-19) RNA [Presence] Detected Not-Detected in Respiratory specimen by FROYLAN with probe detection (test code = 18949-8) TRISHA BROCKTISSUE [id number] 16:45:00 Test Item Value Reference Range Interpretation Comments LAB AP CPT CODE (BEAKER) (test code = 30316 2749) TACROLIMUS [id number] 09:09:00 Test Item Value Reference Range Interpretation Comments TACROLIMUS BLOOD (BEAKER) (test 6.8 ng/mL 10.0-20.0 L code = 657) POCT-GLUCOSE [id number] 07:33:00 Test Item Value Reference Range Interpretation Comments POC-GLUCOSE METER 138 mg/dL 70-110 H TESTED AT [facility] 6720 (BEAKER) (test code = [place] 1538) [address] BASIC METABOLIC [id number] 05:08:00 Test Item Value Reference Range Interpretation [...] 697) EGFR (BEAKER) (test 52 mL/min/1.73 ESTIM[place] GFR IS code = 1092) sq m NOT ACCURATE CREATININE CLEARANCE IN PREDICTING GLOMERULAR FILTRATION RATE . ESTIMATED GFR I S NOT APPLICABLE FOR DIALYSIS PATIEN TS. CBC W/PLT COUNT & AUTO [id number] 04:51:00 Test Item Value Reference Range Interpretation [...] L 0.00-0.20 (test code = 417) 0.00POCT-GLUCOSE [id number] 01:09:00 Test Item Value Reference Range Interpretation Comments POC-GLUCOSE METER 97 mg/dL 70-110 TESTED AT [place] [address] ([facility]) (test code = [place] [facility] [address]) POCT-GLUCOSE [id number] 21:30:00 Test Item Value Reference Range Interpretation Comments POC-GLUCOSE METER 424 mg/dL 70-110 HH Notified R Bibiana PILLAI/TESTED ([facility]) (test code = AT [place] [address] [address] [address]) [facility] [address] 0 POCT-GLUCOSE [id number] 17:04:00 Test Item Value Reference Range Interpretation Comments POC-GLUCOSE METER 198 mg/dL 70-110 H TESTED AT [place] [address] ([facility]) (test code = [place] [address] POCT-GLUCOSE [id number] 12:51:00 Test Item Value Reference Range Interpretation Comments POC-GLUCOSE METER 205 mg/dL 70-110 H TESTED AT [place] [address] ([facility]) (test code = [place] [facility] 1538) [address] TACROLIMUS [id number] 12:35:00 Test Item Value Reference Range Interpretation Comments TACROLIMUS BLOOD ([facility]) (test 5.9 ng/mL 10.0-20.0 L code = 657) POCT-GLUCOSE [id number] 08:32:00 Test Item Value Reference Range Interpretation Comments POC-GLUCOSE METER 60 mg/dL 70-110 L TESTED AT [place] [address] ([facility]) (test code = [place] [facility] [address]) POCT-GLUCOSE [id number] 21:41:00 Test Item Value Reference Range Interpretation Comments POC-GLUCOSE METER 202 mg/dL 70-110 H TESTED AT [place] [address] ([facility]) (test code = [place] [facility] 1538) [address] POCT-GLUCOSE [id number] 17:36:00 Test Item Value Reference Range Interpretation Comments POC-GLUCOSE METER 191 mg/dL 70-110 H TESTED AT [place] [address] ([facility]) ([facility] [place] [facility] 1538) [address] POCT-GLUCOSE [id number] 11:01:00 Test Item Value Reference Range Interpretation Comments POC-GLUCOSE METER 232 mg/dL 70-110 H TESTED AT [place] [address] ([facility]) (test code = [place] [facility] 1538) [address] TACROLIMUS [id number] 10:16:00 Test Item Value Reference Range Interpretation Comments TACROLIMUS BLOOD ([facility]) (test 8.3 ng/mL 10.0-20.0 L code = 657) POCT-GLUCOSE [id number] 08:16:00 Test Item Value Reference Range Interpretation Comments POC-GLUCOSE METER 366 mg/dL 70-110 H TESTED AT [place] [address] ([facility]) (test code = [facility] Kory [facility] 1538) [address] BASIC METABOLIC [id number] 06:57:00 Test Item Value Reference Range Interpretation [...] 697) EGFR (BEAKER) (test 39 mL/min/1.73 [place] GFR IS code = 1092) sq m NOT ACCURATE CREATININE CLEARANCE IN PREDICTING GLOMERULAR FILTRATION RATE . ESTIMATED GFR I S NOT APPLICABLE FOR DIALYSIS PATIEN TS. HEMOGLOBIN AND [id number] 06:40:00 Test Item Value Reference Range Interpretation Comments HEMOGLOBIN (BEAKER) (test code = 11.4 GM/DL 12.0-15.0 L 410) HEMATOCRIT (BEAKER) (test code = 36.1 % 36.0-45.0 411) POCT-GLUCOSE [id number] 23:30:00 Test Item Value Reference Range Interpretation Comments POC-GLUCOSE METER 274 mg/dL 70-110 H TESTED AT [facility] 6720 (BEAKER) (test code = [place] 15[address]) [address] BASIC METABOLIC [id number] 18:49:00 Test Item Value Reference Range Interpretation [...] 697) EGFR (BEAKER) (test 40 mL/min/1.73 ESTIMA [place] GFR IS code = 1092) sq m NOT ACCURATE CREATININE CLEARANCE IN PREDICTING GLOMERULAR FILTRATION RATE . ESTIMATED GFR I S NOT APPLICABLE FOR DIALYSIS PATIEN TS. HEMOGLOBIN AND [id number] 18:35:00 Test Item Value Reference Range Interpretation Comments HEMOGLOBIN (BEAKER) (test code = 11.5 GM/DL 12.0-15.0 L 410) HEMATOCRIT (BEAKER) (test code = 35.6 % 36.0-45.0 L 411) BASIC METABOLIC [id number] 12:08:00 Test Item Value Reference Range Interpretation [...] 697) EGFR (BEAKER) (test 36 mL/min/1.73 [place] GFR IS code = 1092) sq m [...] 0-0 (BEAKER) (test code = 413) 0.00POTASSIUM-STAT [id number] 11:43:00 Test Item Value Reference Range Interpretation Comments POTASSIUM (BEAKER) (test code = 4.3 meq/L 3.6-5.5 379) POCT-GLUCOSE [id number] 11:34:00 Test Item Value Reference Range Interpretation Comments POC-GLUCOSE METER 82 mg/dL 70-110 TESTED AT [facility] 6720 (BEAKER) (test code = [place] [facility] [address]) URINE [id number] 11:19:00 Test Item Value Reference Range Interpretation Comments CULTURE (BEAKER) (test 20-29,000 col/mL skin code = 1095) tea URINALYSIS W/ [id number] 15:16:00 Test Item Value Reference Range Interpretation [...] = 2795) CBC W/PLT COUNT & AUTO [id number] 14:56:00 Test Item Value Reference Range Interpretation [...] 0.00-0.20 (test code = 417) 0.00BASIC METABOLIC [id number] 14:55:00 Test Item Value Reference Range Interpretation [...] 697) EGFR (BEAKER) (test 33 mL/min/1.73 ESTIM[place] GFR IS code = 1092) sq m NOT ACCURATE CREATININE CLEARANCE IN PREDICTING GLOMERULAR FILTRATION RATE . ESTIMATED GFR I S NOT APPLICABLE FOR DIALYSIS PATIEN TS. [id number] 14:51:00 Test Item Value Reference Range Interpretation Comments PARTIAL THROMBOPLASTIN TIME 30.7 seconds 22.5-36.0 (BEAKER) (test code = 760) PROTHROMBIN [id number] 14:50:00 Test Item Value Reference Range Interpretation Comments PROTIME (BEAKER) (test code = 14.3 seconds 11.7-14.7 759) INR (BEAKER) (test code = 370) 1.1 <=5.9 RECOMMENDED COUMADIN/WARFARIN INR THERAPY RANGESSTANDARD DOSE: 2.0 - 3.0 Includes: PROPHYLAXIS for venous thrombosis, systemic embolization; TREATMENT for venous thrombosis and/or pulmonary embolus.HIGH RISK: Target INR is 2.5-3.5 for patients with mechanical heart valves.
[2022-05-23 18:50] LABS: Absolute Lymphocytes (CBC) 0.9 K/uL (0.7-4.9); Hematocrit 34.3 % (36.0-45.0); MCV 80.4 fL (80-100); MPV 7.9 fL (7.6-11.3); RBC Red Blood Cell Count 4.27 M/uL (3.86-4.86)
[2022-05-23 19:52] LABS: Magnesium 2.9 mg/dL (1.8-2.4); Troponin High Sensitivity 127.8 pg/mL (<58.9)
[2022-05-23 19:55] LABS: Potassium 6.8 mmol/L (3.5-5.1)
[2022-05-23] MEDS ORDERED: ALBUTEROL 2.5 MG/3 ML NEB SOL ONE (20:23)
[2022-05-23] MEDS ORDERED: ASPIRIN 81 MG CHEWABLE TABLET ONE (20:23)
[2022-05-23] MEDS ORDERED: INSULIN -REGULAR HUMAN 50 UNIT/0.5 ML ML ONE (20:24)
[2022-05-23] MEDS ORDERED: SOD POLYSTYREN SUL 15 GM/60 ML UCUP ONE (20:24)
[2022-05-23] MEDS ORDERED: D50W 25 GM/50 ML SYRINGE IV ONE (20:24)
[2022-05-23] MEDS ORDERED: CALCIUM GLUCONATE 1 GM IVPB 1 GM/50 ML BAG IV ONE (20:24)
--- NOTE | 2022-05-23 20:24 | RAD REPORT ---
EXAM DESCRIPTION: US - Extremity Venous Uni Ltd - 05/23/2022 8:03 pm CLINICAL HISTORY: SWELLING COMPARISON: Upper Lower Extrem Art Multi dated 04/01/2022; Chest Single View dated 05/23/2022 FINDINGS: Color Doppler, grayscale, and spectral analysis was performed. The right axillary vein, brachial vein, basilic vein, cephalic vein, radial vein, and ulnar vein are all patent. The right subclavian vein is difficult to evaluate due to fully interrogate due to overly ing bandage material. The visualized portions are patent. Unable to Doppler flow within the right int ernal jugular vein. No abnormality identified on grayscale imaging. IMPRESSION: Undetectable flow in the right internal jugular vein by color Doppler. This is concernin g for a right IJ thrombosis which may be catheter related. The remaining right upper extremity veins are patent.
--- NOTE | 2022-05-23 20:37 | ER ---
Nurse's Notes [facility] Name: Paola Mishra Age: 66 yrs Sex: Female : 1955 Arrival Date: 05/23/2022 Time: 18:10 Bed 15 Private MD: Diagnosis: Hyperkalemia;End stage renal disease;Dyspnea Presentation: 05/23 18:17 Chief complaint: Pt receives home HD , Tuesday the nurse had problems with the hb machine and was unable to do her treatment, so last HD was Saturday 05/19. Pt c/o malaise, generalized weakness, and SOB. Coronavirus screen: At this time, the client does not indicate any symptoms associated with coronavirus-19. Ebola Screen: No symptoms or risks identified at this time. Risk Assessment: Do you want to hurt yourself or someone else? Patient reports no desire to harm self or others. Onset of symptoms was May 23, 2022. 18:17 Method Of Arrival: Wheelchair hb 18:17 Acuity: NOHELIA 3 hb Historical: - Allergies: 18:19 NKDA; hb - PMHx: 18:19 Diabetes - IDDM; fungal meningitis; Hyperlipidemia; Hypertension; kidney transplant; hb 18:20 ESRD; kb3 - Immunization history:: Adult Immunizations up to date. - Social history:: Smoking status: . Screenin:30 Abuse screen: Denies threats or abuse. Denies injuries from another. Nutritional kb3 screening: No deficits noted. Tuberculosis screening: No symptoms or risk factors identified. Fall Risk None identified. Assessment: 18:30 General: Appears in no apparent distress. Behavior is calm, cooperative. kb3 18:30 Pain: Complains of pain in chest Pain does not radiate. Pain currently is 3 out of 10 kb3 on a pain scale. Quality of pain is described as heavy, pressure. Respiratory: Airway is patent Respiratory effort is even, unlabored, Breath sounds are clear in right upper lobe and left upper lobe Breath sounds are diminished in right middle lobe, left lower lobe and right lower lobe. 18:30 General: Received care of pt from triage via . Pt is AAO x4. Daughter is present at kb3 bedside and reports pt has MWF HD at home, machine was not working on Tuesday and tech had to come out to fix it. Dialysis machine was repaired but dialysis nurse not to return until Tuesday. Pt was instructed to go to ED if feeling SOB. Pt's daughter reports pt began feeling chest heaviness and mild exertional SOB around 1600 today. Right arm noted to be edematous, pt's daughter reports right arm swelling began yesterday.. 18:30 Cardiovascular: Heart tones present Edema is 2+ to right upper arm, right forearm, kb3 right wrist, right hand and right fingers Rhythm is regular. 19:23 Cardiovascular: Edema is 1+ to right forearm, right wrist, right hand and right fingers.tw5 19:25 General: technical support coordinator at bedside. kb3 22:08 General: Isela- [phone]. tw5 Vital Signs: 18:17 BP 134 / 62; Pulse 77; Resp 20; Temp 97.2(TE); Pulse Ox 97% on R/A; Weight 58.97 kg; hb Height 5 ft. 1 in. (154.94 cm); Pain 0/10; 20:13 BP 137 / 67; Pulse 70; Resp 18 S; Pulse Ox 94% on R/A; as6 18:17 Body Mass Index 24.56 (58.97 kg, 154.94 cm) hb ED Course: 18:10 Patient arrived in ED. mr 18:12 Pinky Galarza, RN is Primary Nurse. hb 18:15 Juan Paz PA is PHCP. cp 18:15 Tyler Guillory MD is Attending Physician. cp 18:19 Triage completed. hb 18:19 Arm band placed on. hb 18:30 Patient has correct armband on for positive identification. Bed in low position. Call kb3 light in reach. Side rails up X 1. Adult w/ patient. Client placed on continuous cardiac and pulse oximetry monitoring. NIBP monitoring applied. Warm blanket given. 18:55 No provider procedures requiring assistance completed. Inserted saline lock: 20 gauge kb3 in right antecubital area, using aseptic technique. 19:23 Lab(s) recollected, by me, sent to lab. Inserted saline lock: 22 gauge in right hand, tw5 using aseptic technique. 20:04 US Extremity Venous Unilateral Ltd: right arm In Process Unspecified. EDMS 20:23 XRAY Chest (1 view) In Process Unspecified. EDMS 20:36 Quin Serrano PA-C is Hospitalizing Provider. cp 23:07 Fito Bernal MD is Hospitalizing Provider. cp 05/24 05:56 Notified ED physician of a critical lab result(s). crerat 11.1 pot 6.4. tw5 07:18 Primary Nurse role handed off by Pinky Galarza, RN tw2 07:18 Jessie Sanchez, RN is Primary Nurse. tw2 08:57 Patient admitted, IV remains in place. tw2 Administered Medications: 05/23 20:16 CANCELLED (Physician Discretion): Kayexalate (polystyrene) 15 grams PO once cp 20:40 Drug: Insulin Regular Human 10 units {Co-Signature: as6 (Alex Joe RN).} Route: kb3 IVP; Site: right hand; 20:40 Drug: D50W 50 ml Route: IVP; Site: right hand; kb3 20:45 Drug: Albuterol 2.5 mg Route: Inhalation; kb3 20:45 Drug: Aspirin Chewable Tablet 324 mg Route: PO; kb3 20:45 Drug: Calcium Gluconate 1 grams Route: IVPB; Infused Over: 60 mins; Site: right hand; kb3 20:55 Drug: Kayexalate (polystyrene) 30 grams Route: PO; kb3 Medication: 18:30 VIS not applicable for this client. kb3 Outcome: 20:37 Decision to Hospitalize by Provider. 05/24 08:56 Admitted to Med/surg accompanied by nurse, via stretcher, room 232, with oxygen, with tw2 chart, Report called to BO Lundberg Condition: stable Instructed on the need for admit. 08:57 Patient left the ED. vg1 Signatures: [facility] Yady Qureshi Juan Paz PA PA cp Pinky Galarza, RN RN hb Jessie Sanchez, RN RN tw2 Corina Nogueira, RN RN vg1 Araseli Clay tw5 Alex Joe RN RN as6 Taylor Linares RN RN kb3 Alex Joe RN as6 Corrections: (The following items were deleted from the chart) 05/23 18:24 18:19 PMHx: ESRD; no longer does dialysis, recieved kidney transplant; [facility] 18:24 18:19 PMHx: Self straight caths; hb kb3 18:24 18:19 PMHx: suprapubic cath; hb kb3 18:24 18:20 PSHx: Peritoneal Dialysis; kb3 kb3 19:41 18:30 Cardiovascular: Heart tones present Edema is 1+ to right elbow, right forearm, kb3 right wrist, right hand and right fingers Rhythm is regular kb3 05/24 09:20 08:57 Patient admitted, IV remains in place. vg1 tw2 09: 08:56 Admitted to Med/surg accompanied by nurse, via stretcher, room 232, with oxygen, tw2 with chart, Report called to BO Lundberg vg1
--- NOTE | 2022-05-23 20:37 | EDPHYS ---
Physician Documentation [facility] Name: Paola Mishra Age: 66 yrs Sex: Female : 1955 Arrival Date: 05/23/2022 Time: 18:10 Bed 15 Private MD: ED Physician Tyler Guillory HPI: 05/23 18:45 This 66 yrs old Female presents to ER via Wheelchair with complaints of cp Fatigue, Shortness Of Breath. Historical: - Allergies: 18:19 NKDA; hb - PMHx: 18:19 Diabetes - IDDM; fungal meningitis; Hyperlipidemia; Hypertension; kidney transplant; hb 18:20 ESRD; kb3 - Immunization history:: Adult Immunizations up to date. - Social history:: Smoking status: . ROS: 18:50 Constitutional: Positive for fatigue, Negative for body aches, chills, fever, poor PO cp intake. 18:50 Eyes: Negative for injury, pain, redness, and discharge. cp 18:50 ENT: Negative for drainage from ear(s), ear pain, sore throat, difficulty swallowing, difficulty handling secretions. 18:50 Cardiovascular: Positive for edema, Negative for chest pain, palpitations. 18:50 Respiratory: Positive for shortness of breath, at rest. Negative for cough, wheezing. 18:50 Abdomen/GI: Negative for abdominal pain, vomiting, diarrhea, constipation. 18:50 Neuro: Negative for altered mental status, dizziness, headache, loss of consciousness, syncope, weakness. 18:50 All other systems are negative. Exam: 18:55 Head/Face: Normocephalic, atraumatic. cp 18:55 Constitutional: The patient appears in no acute distress, alert, awake, non-diaphoretic, non-toxic, well developed, well nourished, uncomfortable. 18:55 Eyes: Periorbital structures: appear normal, Conjunctiva: normal, no exudate, no injection, Sclera: no appreciated abnormality, Lids and lashes: appear normal, bilaterally. 18:55 ENT: External ear(s): are unremarkable, Nose: is normal, Mouth: Lips: moist, Oral mucosa: pink and intact, moist, Posterior pharynx: Airway: no evidence of obstruction, patent. 18:55 Neck: ROM/movement: is normal, is supple, without pain, no range of motions limitations, no meningismus. 18:55 Chest/axilla: Inspection: normal, Palpation: is normal, no crepitus, no tenderness. 18:55 Cardiovascular: Rate: normal, Rhythm: regular, Edema: ankle edema, that is moderate, JVD: is not appreciated. 18:55 Respiratory: the patient does not display signs of respiratory distress, Respirations: labored breathing, that is mild, Breath sounds: decreased breath sounds, that are mild, throughout, stridor, is not appreciated. 18:55 Abdomen/GI: Inspection: abdomen appears normal, Palpation: abdomen is soft and non-tender, in all quadrants. 18:55 Back: pain, is absent, ROM is normal. 18:55 Skin: cellulitis, is not appreciated, no rash present. 18:55 Neuro: Orientation: to person, place \T\ time. Mentation: is normal, Motor: moves all fours, strength is normal. Vital Signs: 18:17 BP 134 / 62; Pulse 77; Resp 20; Temp 97.2(TE); Pulse Ox 97% on R/A; Weight 58.97 kg; hb Height 5 ft. 1 in. (154.94 cm); Pain 0/10; 20:13 BP 137 / 67; Pulse 70; Resp 18 S; Pulse Ox 94% on R/A; as6 18:17 Body Mass Index 24.56 (58.97 kg, 154.94 cm) hb MDM: 18:16 Patient medically screened. cp 19:00 Differential diagnosis: CHF exacerbation, pneumonia, Pneumothorax pulmonary edema, cp Pulmonary Embolism Sepsis. 20:20 Data reviewed: vital signs, nurses notes, lab test result(s), EKG, radiologic studies, cp plain films. 20:20 Physician consultation: was contacted at 20:15, regarding consult, patient's condition, cp DR Cornejo, mechanic's assistant, wants 30 Kayexalate to be given and if potassium improves will have dialysis ordered in morning. 05/23 18:37 Order name: Basic Metabolic Panel; Complete Time: 20:03 cp 05/23 20:03 Interpretation: Normal except: NA 128; K 6.8; CL 92; ANION GAP 15.8; GLUC 166; BUN 76; cp CRE 10.80; GFR 4; CA 8.1. 05/23 18:37 Order name: CBC with Diff; Complete Time: 20:03 cp 05/23 20:04 Interpretation: Normal except: HGB 10.8; HCT 34.3; MCH 25.4; MCHC 31.6; RDW 22.4. cp 05/23 18:37 Order name: Magnesium; Complete Time: 20:03 cp 05/23 18:37 Order name: NT PRO-BNP; Complete Time: 20:03 cp 05/23 18:37 Order name: PT-INR; Complete Time: 20:03 cp 05/23 18:37 Order name: Troponin HS; Complete Time: 20:03 cp 05/23 20:11 Order name: SARS RAPID; Complete Time: 22:56 tw5 05/23 21:51 Order name: Potassium: redraw 2230 cp 05/23 23:13 Order name: Potassium; Complete Time: 23:39 EDMS 05/24 05:47 Order name: CBC with Automated Diff; Complete Time: 07:57 EDMS 05/24 05:58 Order name: Renal Panel; Complete Time: 07:57 EDMS 05/24 05:58 Order name: Creatine Phosphokinase; Complete Time: 07:57 EDMS 05/24 05:58 Order name: CKMB Creatine Kinase MB; Complete Time: 07:57 EDMS 05/24 05:58 Order name: Magnesium; Complete Time: 07:57 EDMS 05/23 18:37 Order name: XRAY Chest (1 view); Complete Time: 20:52 cp 05/23 18:37 Order name: EKG; Complete Time: 18:38 cp 05/23 18:37 Order name: Cardiac monitoring; Complete Time: 20:04 cp 05/23 18:37 Order name: EKG - Nurse/Tech; Complete Time: 20:04 cp 05/23 18:37 Order name: IV Saline Lock; Complete Time: 19:50 cp 05/23 18:37 Order name: Labs collected and sent; Complete Time: 19:50 cp 05/23 18:37 Order name: O2 Per Protocol; Complete Time: 19:50 cp 05/23 18:37 Order name: O2 Sat Monitoring; Complete Time: 19:50 cp 05/23 18:52 Order name: US Extremity Venous Unilateral Ltd: right arm; Complete Time: 20:52 cp Administered Medications: 20:16 CANCELLED (Physician Discretion): Kayexalate (polystyrene) 15 grams PO once cp 20:40 Drug: Insulin Regular Human 10 units {Co-Signature: as6 (Alex Joe RN).} Route: kb3 IVP; Site: right hand; 20:40 Drug: D50W 50 ml Route: IVP; Site: right hand; kb3 20:45 Drug: Albuterol 2.5 mg Route: Inhalation; kb3 20:45 Drug: Aspirin Chewable Tablet 324 mg Route: PO; kb3 20:45 Drug: Calcium Gluconate 1 grams Route: IVPB; Infused Over: 60 mins; Site: right hand; kb3 20:55 Drug: Kayexalate (polystyrene) 30 grams Route: PO; kb3 Disposition Summary: 05/23/22 20:37 Hospitalization Ordered Hospitalization Status: Observation cp Condition: Stable cp Problem: new cp Symptoms: have improved cp Bed/Room Type: Standard cp Provider: Fito Bernal(05/23/22 23:07) cp Location: Telemetry/MedSurg (observation)(05/24/22 05:58) Room Assignment: 232(05/24/22 05:58) Diagnosis - Hyperkalemia cp - End stage renal disease cp - Dyspnea cp Forms: - Medication Reconciliation Form cp - SBAR form cp Addendum: 05/27/2022 06:27 Co-signature as Attending Physician, Tyler Guillory MD. r n Signatures: Dispatcher [employer] EDMS Blanka Hernadez RN RN mw Nieto, Roman, MD MD rn Page, Corey, PA PA cp Baxter, Heather, RN RN Araseli Clay tw5 Nayely Schumacher FNP FNP 7 Taylor Linares RN RN Quin Fenton PA-C PA-C sb4 Alex Joe RN as6 Corrections: (The following items were deleted from the chart) 05/23 18:24 18:19 PMHx: ESRD; no longer does dialysis, recieved kidney transplant; [facility] 18:24 18:19 PMHx: Self straight caths; [facility] 18:24 18:19 PMHx: suprapubic cath; [facility] 18:24 18:20 PSHx: Peritoneal Dialysis; [facility] kb3 20:16 20:07 Kayexalate (polystyrene) 15 grams PO once ordered. [facility] 22:01 20:37 Telemetry/MedSurg (observation) tw5 22:01 20:37 cp tw5 22: 22:01 tw5 23:07 20:37 Quin Serrano [facility] 05/24 05:58 05/23 22:01 [facility] ER HOLD tw5 mw 05/24 05:58 05/23 22:01 ERHOLD- mw
--- NOTE | 2022-05-23 20:47 | RAD REPORT ---
EXAM DESCRIPTION: RAD - Chest Single View - 05/23/2022 8:16 pm CLINICAL HISTORY: SOB COMPARISON: Chest Single View dated 11/12/2021; Chest Single View dated 08/05/2021; Chest Single View d ated 08/01/2020; Chest Single View dated 07/03/2019 FINDINGS: Lines: Right IJ approach dialysis catheter with tip overlying the SVC. Lungs: Diffuse prominence of the pulmonary interstitium. Pleural: No significant pleural effusions or pneumothorax. Cardiac: The heart size is within normal limits. Mediastinum: Within normal limits. Bones: No acute fractures. Other: None IMPRESSION: Findings most likely representing interstitial edema.
--- NOTE | 2022-05-23 21:27 | P.HP ---
Certification for Inpatient Patient admitted to: Observation With expected LOS: <2 Midnights Patient will require the following post-hospital care: None Practitioner: I am a practitioner with admitting privileges, knowledge of patient current condition, hospital course, and medical plan of care. Services: Services provided to patient in accordance with Admission requirements found in Title 42 Section 412.3 of the Code of Federal Regulations Patient History Date of Service: 05/23/22 Reason for admission: ESRD, Hyperkalemia Allergies No Known Drug Allergies Allergy (Verified 08/01/20 23:30) Unknown Home medications list reviewed: Yes Home Medications: Amlodipine [Norvasc*] 10 mg PO DAILY 07/04/19 Calcium Carbonate [Tums Regular*] 500 mg PO QID 07/04/19 Gabapentin [Neurontin*] 100 mg PO TID 07/04/19 Magnesium Chloride [Slow-Mag*] 64 mg PO DAILY 07/04/19 Omeprazole [Prilosec] 40 mg PO DAILY 07/04/19 Simvastatin 40 mg PO BEDTIME 07/04/19 Tacrolimus [Prograf] 1 cap PO BID 07/04/19 predniSONE [Prednisone*] 5 mg PO DAILY 07/04/19 Calcitriol [Rocaltrol] 1 mcg PO DAILY 06/23/21 Furosemide [Lasix] 20 mg PO BID 06/23/21 Levothyroxine Sodium 25 mcg PO DAILY 06/23/21 Insulin Aspart [Novolog Flexpen] 3 unit SQ SEECOM 08/06/21 Insulin NPH Human [Novolin N (Humulin N)*] 25 unit SQ SEECOM 08/06/21 Promethazine Tab [Phenergan*] 25 mg PO Q8HR PRN 08/06/21 Apixaban [Eliquis] 5 mg PO BID 11/12/21 Fluconazole [Diflucan] 50 mg PO BID 11/12/21 Lactulose 10 gm PO DAILY 11/12/21 cloNIDine HCL [Clonidine HCl] 0.1 mg PO BID 11/12/21 Ciprofloxacin HCl [Cipro 500 MG Tablet] 500 mg PO DAILY 5 Days #5 tab 11/16/21 - Past Medical/Surgical History Diabetic: Yes -: ESRD on HD -: chronic venous hypertension with ulceraton -: diabetic ulcer toe -: gerd -: hyperlipidemia -: neuropathy -: kidney transplant -: -: Toe Amputation -: Fistula Placement -: Chronic venous hypertension with ulceration Psychosocial/ Personal History: Patient lives at home. - Family History Mother -: Stroke, Kidney disease Sister -: Kidney disease - Social History Smoking Status: Never smoker Alcohol use: No CD- Drugs: No Caffeine use: No Place of Residence: Home Physical Examination - Studies Laboratory Data (last 24 hrs) 05/23/22 19:22: PT 11.0, INR 1.00 05/23/22 19:22: Sodium 128 L, Potassium 6.8 H*, BUN 76 H, Creatinine 10.80 H*, Glucose 166 H, Magnesium 2.9 H 05/23/22 18:40: WBC 4.90, Hgb 10.8 L, Hct 34.3 L, Plt Count 208 Assessment and Plan - Problems (Diagnosis) (1) Hyperkalemia Current Visit: Yes Status: Acute (2) Elevated troponin Current Visit: Yes Status: Acute (3) Hypothyroidism Current Visit: Yes Status: Chronic Qualifiers: Hypothyroidism type: acquired Qualified Code(s): E03.9 - Hypothyroidism, unspecified (4) Diabetes Current Visit: Yes Status: Chronic Qualifiers: Diabetes mellitus type: type 2 Diabetes mellitus 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 Diabetes mellitus complication status: with hyperglycemia Qualified Code(s): E11.65 - Type 2 diabetes mellitus with hyperglycemia; Z79.4 - skilled nursing (current) use of insulin (5) ESRD (end stage renal disease) Current Visit: Yes Status: Chronic (6) GERD (gastroesophageal reflux disease) Current Visit: Yes Status: Chronic Qualifiers: Esophagitis presence: without esophagitis Qualified Code(s): K21.9 - Gastro-esophageal reflux disease without esophagitis (7) Hyperlipidemia Current Visit: Yes Status: Chronic Qualifiers: Hyperlipidemia type: unspecified Qualified Code(s): E78.5 - Hyperlipidemia, unspecified (8) Hypertension Current Visit: Yes Status: Chronic Qualifiers: Hypertension type: primary hypertension Discharge Plan: Home Plan to discharge in: 24 Hours - Advance Directives Does patient have a Living Will: No Does patient have a Durable POA for Healthcare: Yes - Code Status/Comfort Care Code Status Assessed: Yes (Full) Critical Care: No Time Spent Managing Pts Care (In Minutes): 50
[2022-05-23 21:56] LABS: SARS-CoV-2 Antigen Rapid Res Negative (Negative)
[2022-05-24] MEDS ORDERED: ONDANSETRON 4 MG/2 ML VIAL IV PRN (02:35)
[2022-05-24] MEDS: HEPARIN 5000 UNIT/ML 1 ML VIAL SQ SCH ×2 (02:35→09:08)
[2022-05-24] MEDS ORDERED: ACETAMINOPHEN 500 MG TAB PO PRN (02:35)
[2022-05-24] MEDS ORDERED: HEPARIN 5000 UNIT/ML 1 ML VIAL ONE (02:48)
[2022-05-24 05:42] LABS: Absolute Lymphocytes (CBC) 0.9 K/uL (0.7-4.9); Hematocrit 29.9 % (36.0-45.0); Lymphocytes % 23.7 % (15.3-44.8); MCV 80.2 fL (80-100); MPV 8.1 fL (7.6-11.3); RBC Red Blood Cell Count 3.73 M/uL (3.86-4.86)
[2022-05-24 05:56] LABS: Albumin 2.7 g/dL (3.4-5.0); CKMB Creatine Kinase MB 1.8 ng/mL (1.0-3.6); Magnesium 2.9 mg/dL (1.8-2.4); Phosphorus 4.5 mg/dL (2.5-4.9)
[2022-05-24 05:57] LABS: Potassium 6.4 mmol/L (3.5-5.1)
[2022-05-24] MEDS: INSULIN -REGULAR HUMAN 50 UNIT/0.5 ML ML SQ SCH ×4 (07:30→20:50)
--- NOTE | 2022-05-24 08:15 | P.HP ---
Certification for Inpatient Patient admitted to: Observation With expected LOS: <2 Midnights Patient will require the following post-hospital care: None Practitioner: I am a practitioner with admitting privileges, knowledge of patient current condition, hospital course, and medical plan of care. Services: Services provided to patient in accordance with Admission requirements found in Title 42 Section 412.3 of the Code of Federal Regulations Patient History Date of Service: 05/24/22 Primary Care Provider: Cortney Grijalva Reason for admission: missed dialysis History of Present Illness: Patient is a pleasant office patient of ours. PMH of esrd, DM2, hypothyroididsm and hyperlipidemia She usually has a home dialysis machine. Her dialysis was not able to get it to work on Tue, or Tuesday. Normally a M,W,F schedules. She has a working shunt and a catheter. Has a follow up with Her surgeon tomorrow at 1pm to get her catheter removed. She was having weakness and sob and came to the ER. She had some higher range potassium. The patient potassium is higher this morning. ER has consulted Dr. Clemens for dialysis Allergies No Known Drug Allergies Allergy (Verified 08/01/20 23:30) Unknown Home Medications: Amlodipine [Norvasc*] 10 mg PO DAILY 07/04/19 Calcium Carbonate [Tums Regular*] 500 mg PO QID 07/04/19 Gabapentin [Neurontin*] 100 mg PO TID 07/04/19 Magnesium Chloride [Slow-Mag*] 64 mg PO DAILY 07/04/19 Omeprazole [Prilosec] 40 mg PO DAILY 07/04/19 Simvastatin 40 mg PO BEDTIME 07/04/19 Tacrolimus [Prograf] 1 cap PO BID 07/04/19 predniSONE [Prednisone*] 5 mg PO DAILY 07/04/19 Calcitriol [Rocaltrol] 1 mcg PO DAILY 06/23/21 Furosemide [Lasix] 20 mg PO BID 06/23/21 Levothyroxine Sodium 25 mcg PO DAILY 06/23/21 Insulin Aspart [Novolog Flexpen] 3 unit SQ SEECOM 08/06/21 Insulin NPH Human [Novolin N (Humulin N)*] 25 unit SQ SEECOM 08/06/21 Promethazine Tab [Phenergan*] 25 mg PO Q8HR PRN 08/06/21 Apixaban [Eliquis] 5 mg PO BID 11/12/21 Fluconazole [Diflucan] 50 mg PO BID 11/12/21 Lactulose 10 gm PO DAILY 11/12/21 cloNIDine HCL [Clonidine HCl] 0.1 mg PO BID 11/12/21 Ciprofloxacin HCl [Cipro 500 MG Tablet] 500 mg PO DAILY 5 Days #5 tab 11/16/21 - Past Medical/Surgical History Diabetic: Yes -: Kidney transplant -: chronic venous hypertension with ulceraton -: diabetic ulcer toe -: gerd -: hyperlipidemia -: neuropathy chronic kidney disease -: kidney transplant -: -: Toe Amputation -: Fistula Placement -: Chronic venous hypertension with ulceration - Family History Mother -: Stroke, Kidney disease Sister -: Kidney disease - Social History Alcohol use: No CD- Drugs: No Caffeine use: No Review of Systems General: Weakness, Malaise Respiratory: Shortness of Breath Physical Examination - Vital Signs Temperature: 97.4 F Blood Pressure: 127/63 Pulse: 69 Respirations: 17 Pulse Ox (%): 96 - Physical Exam General: Alert, In no apparent distress HEENT: Atraumatic, PERRLA, Mucous membr. moist/pink, EOMI, Sclerae nonicteric Neck: Supple, 2+ carotid pulse no bruit, No LAD, Without JVD or thyroid abnormality Respiratory: Clear to auscultation bilaterally, Normal air movement Cardiovascular: Regular rate/rhythm, Normal S1 S2 Gastrointestinal: Normal bowel sounds, No tenderness Musculoskeletal: No tenderness Integumentary: No rashes Neurological: Normal gait, Normal speech, Normal strength at 5/5 x4 extr, Normal tone, Normal affect Lymphatics: No axilla or inguinal lymphadenopathy - Studies Laboratory Data (last 24 hrs) 05/23/22 19:22: PT 11.0, INR 1.00 05/23/22 19:22: Sodium 128 L, Potassium 6.8 H*, BUN 76 H, Creatinine 10.80 H*, Glucose 166 H, Magnesium 2.9 H 05/23/22 18:40: WBC 4.90, Hgb 10.8 L, Hct 34.3 L, Plt Count 208 Assessment and Plan - Problems (Diagnosis) (1) ESRD (end stage renal disease) Current Visit: Yes Status: Chronic Plan: Will have nephrology run her dialysis. Will check post labs and possible discharge in the morning (2) Diabetes Current Visit: Yes Status: Chronic Plan: Not on medications. Her last a1c was 7.5 this month. Will keep her on a sliding scale and accuchecks. Qualifiers: Diabetes mellitus type: type 2 Diabetes mellitus oysterman insulin use: without oysterman use Diabetes mellitus complication status: with kidney complications Diabetes mellitus complication detail: with nephropathy Qualified Code(s): E11.21 - Type 2 diabetes mellitus with diabetic nephropathy (3) Hyperlipidemia Current Visit: Yes Status: Chronic Plan: continue home medications Qualifiers: Hyperlipidemia type: unspecified Qualified Code(s): E78.5 - Hyperlipidemia, unspecified (4) Hypothyroidism Current Visit: Yes Status: Chronic Plan: will check a tsh on the patient Qualifiers: Hypothyroidism type: acquired Qualified Code(s): E03.9 - Hypothyroidism, unspecified - Advance Directives Does patient have a Living Will: No Does patient have a Durable POA for Healthcare: Yes
[2022-05-24] MEDS ORDERED: APIXABAN 5 MG TABLET PO SCH (09:00)
[2022-05-24] MEDS: LEVOTHYROXINE SOD 0.025 MG TAB PO SCH (09:00)
[2022-05-24] MEDS ORDERED: HOME MED 1 EA UNK (Omeprazole [Prilosec] 40 MG Capsule.Dr) PO SCH (09:00)
[2022-05-24] MEDS: PANTOPRAZOLE 40MG TABLET PO SCH (09:08)
[2022-05-24] MEDS: GABAPENTIN 100 MG CAP PO SCH ×3 (09:08→20:44)
[2022-05-24] MEDS ORDERED: MANNITOL 25% 12.5 GM/50 ML VIAL IV PRN ×2 (09:12→09:36)
[2022-05-24] MEDS ORDERED: NA CHLORIDE 0.9% 1,000 ML IV PRN (09:36)
--- NOTE | 2022-05-24 09:46 | P.CNS ---
Date of Consult: 05/24/22 Reason for Consult: ESRD Requesting Physician: Fito Bernal Primary Care Provider: Cortney Grijalva Chief Complaint: missed dialysis History of Present Illness: 66 yo HF ESRD, HTN presented to the ER with moderate, progressive weakness and malaise in the setting of missed dialysis due to a non-fx home dialysis machine. 18:17 Chief complaint: Pt receives home HD , Tuesday the nurse had problems with the hb machine and was unable to do her treatment, so last HD was Saturday 05/19. Pt c/o malaise, generalized weakness, and SOB. Coronavirus screen: At this time, the client does not indicate any symptoms associated with coronavirus-19. Ebola Screen: No symptoms or risks identified at this time. Risk Assessment: Do you want to hurt yourself or someone else? Patient reports no desire to harm self or others. Onset of symptoms was May 23, 2022. Allergies No Known Drug Allergies Allergy (Verified 08/01/20 23:30) Unknown Home medications list reviewed: Yes Home Medications: Amlodipine [Norvasc*] 10 mg PO DAILY 07/04/19 Calcium Carbonate [Tums Regular*] 500 mg PO QID 07/04/19 Gabapentin [Neurontin*] 100 mg PO TID 07/04/19 Magnesium Chloride [Slow-Mag*] 64 mg PO DAILY 07/04/19 Omeprazole [Prilosec] 40 mg PO DAILY 07/04/19 Simvastatin 40 mg PO BEDTIME 07/04/19 Tacrolimus [Prograf] 1 cap PO BID 07/04/19 predniSONE [Prednisone*] 5 mg PO DAILY 07/04/19 Calcitriol [Rocaltrol] 1 mcg PO DAILY 06/23/21 Furosemide [Lasix] 20 mg PO BID 06/23/21 Levothyroxine Sodium 25 mcg PO DAILY 06/23/21 Insulin Aspart [Novolog Flexpen] 3 unit SQ SEECOM 08/06/21 Insulin NPH Human [Novolin N (Humulin N)*] 25 unit SQ SEECOM 08/06/21 Promethazine Tab [Phenergan*] 25 mg PO Q8HR PRN 08/06/21 Apixaban [Eliquis] 5 mg PO BID 11/12/21 Fluconazole [Diflucan] 50 mg PO BID 11/12/21 Lactulose 10 gm PO DAILY 11/12/21 cloNIDine HCL [Clonidine HCl] 0.1 mg PO BID 11/12/21 Ciprofloxacin HCl [Cipro 500 MG Tablet] 500 mg PO DAILY 5 Days #5 tab 11/16/21 - Past Medical/Surgical History Diabetic: Yes -: Kidney transplant -: chronic venous hypertension with ulceraton -: diabetic ulcer toe -: gerd -: hyperlipidemia -: neuropathy chronic kidney disease -: kidney transplant -: -: Toe Amputation -: Fistula Placement -: Chronic venous hypertension with ulceration - Family History Mother Medical History: Stroke, Kidney disease Sister Medical History: Kidney disease - Social History Smoking Status: Unknown if ever smoked Alcohol use: No CD- Drugs: No Caffeine use: No Review of Systems 10-point ROS is otherwise unremarkable General: Weakness Respiratory: SOB with Excertion Physical Examination Temp Pulse Resp BP Pulse Ox 97.3 F 71 19 153/71 H 95 05/24/22 08:50 05/24/22 08:50 05/24/22 08:50 05/24/22 08:50 05/24/22 08:50 General: In no apparent distress, Oriented x3, Cooperative HEENT: Atraumatic Neck: Supple Respiratory: Clear to auscultation bilaterally Cardiovascular: No edema, Regular rate/rhythm Gastrointestinal: Soft and benign Musculoskeletal: No clubbing, No contractures Integumentary: No rashes, No cyanosis Neurological: Normal speech Urinary: Dialysis catheter Laboratory Data (last 24 hrs) 05/23/22 19:22: PT 11.0, INR 1.00 05/23/22 19:22: Sodium 128 L, Potassium 6.8 H*, BUN 76 H, Creatinine 10.80 H*, Glucose 166 H, Magnesium 2.9 H 05/23/22 18:40: WBC 4.90, Hgb 10.8 L, Hct 34.3 L, Plt Count 208 Imagings Data: COMPARISON: Chest Single View dated 11/12/2021; Chest Single View dated 08/05/2021; Chest Single View dated 08/01/2020; Chest Single View dated 07/03/2019 FINDINGS: Lines: Right IJ approach dialysis catheter with tip overlying the SVC. Lungs: Diffuse prominence of the pulmonary interstitium. Pleural: No significant pleural effusions or pneumothorax. Cardiac: The heart size is within normal limits. Mediastinum: Within normal limits. Bones: No acute fractures. Other: None IMPRESSION: Findings most likely representing interstitial edema. EXAM DESCRIPTION: US - Extremity Venous Uni Ltd - 05/23/2022 8:03 pm CLINICAL HISTORY: SWELLING COMPARISON: Upper Lower Extrem Art Multi dated 04/01/2022; Chest Single View dated 05/23/2022 FINDINGS: Color Doppler, grayscale, and spectral analysis was performed. The right axillary vein, brachial vein, basilic vein, cephalic vein, radial vein, and ulnar vein are all patent. The right subclavian vein is difficult to evaluate due to fully interrogate due to overlying bandage material. The visualized portions are patent. Unable to Doppler flow within the right internal jugular vein. No abnormality identified on grayscale imaging. IMPRESSION: Undetectable flow in the right internal jugular vein by color Doppler. This is concerning for a right IJ thrombosis which may be catheter related. The remaining right upper extremity veins are patent. Conclusions/Impression: ESRD on home dialysis Access: LUE AVF and Right IJ CVC -Acute HD today -Continue Elliquis for possible Right IJ thrombosis but reduce dose 2.5mg BID; Discontinue SC heparin -Vascular scheduled to remove CVC tomorrow Hx failed renal transplant -Immunosuppression therapy is unclear at this time -Will need to confirm her home medication list Hyponatremia Hyperkalemia -Acute HD today -Lokelma X1 today -Renal diet HTN with CKD/ CHF -Hold Clonidine at this time Diastolic CHF, A/C -HD with UF today -Low sodium diet DM II with CKD & Polyneuropathy -RISS -Continue Gabapentin Hypoalbuminemia -Start Nepro TID -Start MVI Anemia in CKD -Start Retacrit CKD MBD -Start Ergo -Start Renvela Case reviewed with Dr. Bernal Thank you kindly for the consultation
[2022-05-24] MEDS ORDERED: DRISDOL (VITAMIN D=ERGOCALCIFEROL) 50000 UNIT CAP PO SCH (10:00)
[2022-05-24] MEDS ORDERED: ALBUMIN HUMAN 25% 50 ML IV SCH (10:00)
[2022-05-24 11:33] VITALS: BMI 29.3
[2022-05-24] MEDS: SEVELAMER CARBONATE 800 MG TABLET PO SCH ×2 (12:00→17:30)
[2022-05-24] MEDS: NEPRO SHAKE 237 ML CAN PO SCH ×2 (14:00→20:49)
[2022-05-24] MEDS ORDERED: SODIUM ZIRCONIUM CYCLOSILICATE 10 GM/PKT PO ONE (16:00)
--- NOTE | 2022-05-24 18:38 | EKG ---
Test Date: 2022-05-23 Test Time: 19:58:33 Entry Level Recruiter: MEASUREMENT RESULTS: Intervals: Rate: 71 SD: 168 QRSD: 82 QT: 392 QTc: 425 [place]: P: 59 SD: 168 QRS: 21 T: 70 INTERPRETIVE STATEMENTS: Normal sinus rhythm Normal ECG Compared to ECG 08/06/2021 00:51:27 No significant changes Electronically Signed On 05-24-22 18:37:09 CDT by Brian Oh
[2022-05-24] MEDS ORDERED: EPOETIN ALFA 10,000 UNIT/ML VIAL SQ SCH (20:00)
[2022-05-24] MEDS: DOCUSATE NA 100 MG CAP PO SCH (20:44)
[2022-05-24] MEDS: APIXABAN 2.5 MG TABLET PO SCH (20:44)
[2022-05-24] MEDS ORDERED: HOME MED 1 EA UNK (Simvastatin [Simvastatin] 20 MG Tablet) PO SCH (21:00)
[2022-05-24] MEDS ORDERED: ATORVASTATIN 10 MG TAB PO SCH (21:00)
[2022-05-25 03:48] LABS: Absolute Lymphocytes (CBC) 0.7 K/uL (0.7-4.9); Hematocrit 32.4 % (36.0-45.0); Lymphocytes % 23.7 % (15.3-44.8); MCV 80.4 fL (80-100); MPV 7.9 fL (7.6-11.3); RBC Red Blood Cell Count 4.03 M/uL (3.86-4.86)
[2022-05-25 04:24] LABS: Albumin 2.6 g/dL (3.4-5.0); Bilirubin Total 0.5 mg/dL (0.2-1.0); Magnesium 2.5 mg/dL (1.8-2.4); Phosphorus 3.9 mg/dL (2.5-4.9); Potassium 4.3 mmol/L (3.5-5.1)
[2022-05-25 04:37] VITALS: O2SAT 96
[2022-05-25 04:54] LABS: Anisocytosis 1+; Basophilic Stippling 1+; Blood Morphology Comment NOTED (NOT SEEN); Platelet Estimate ADEQ; White Blood Cell Scan OK (OK)
[2022-05-25] MEDS: LEVOTHYROXINE SOD 0.025 MG TAB PO SCH (05:45)
[2022-05-25] MEDS: INSULIN -REGULAR HUMAN 50 UNIT/0.5 ML ML SQ SCH ×2 (07:30→11:33)
[2022-05-25] MEDS ORDERED: HYDRALAZINE HCL 20 MG/ML VIAL IV PRN (08:09)
[2022-05-25] MEDS: DOCUSATE NA 100 MG CAP PO SCH (08:51)
[2022-05-25] MEDS: SEVELAMER CARBONATE 800 MG TABLET PO SCH ×2 (08:51→11:34)
[2022-05-25] MEDS: APIXABAN 2.5 MG TABLET PO SCH (08:51)
[2022-05-25] MEDS: GABAPENTIN 100 MG CAP PO SCH (08:52)
[2022-05-25] MEDS: NEPRO SHAKE 237 ML CAN PO SCH (08:52)
[2022-05-25] MEDS: PANTOPRAZOLE 40MG TABLET PO SCH (08:52)
[2022-05-25] MEDS ORDERED: MULTIVITAMINS,THERAPEUT 1 TAB PO SCH (09:00)
--- NOTE | 2022-05-25 10:23 | P.DS ---
Admission Date: 05/23/22 Discharge Date: 05/25/22 Primary Care Provider: Cortney Grijalva Disposition: ROUTINE DISCHARGE Discharge Condition: GOOD Reason for Admission: missed dialysis - Problems (1) ESRD (end stage renal disease) Current Visit: Yes Status: Chronic (2) Diabetes Current Visit: Yes Status: Chronic Qualifiers: Diabetes mellitus type: type 2 Diabetes mellitus [facility] insulin use: without [facility] use Diabetes mellitus complication status: with kidney complications Diabetes mellitus complication detail: with nephropathy Qualified Code(s): E11.21 - Type 2 diabetes mellitus with diabetic nephropathy (3) Hyperlipidemia Current Visit: Yes Status: Chronic Qualifiers: Hyperlipidemia type: unspecified Qualified Code(s): E78.5 - Hyperlipidemia, unspecified (4) Hypothyroidism Current Visit: Yes Status: Chronic Qualifiers: Hypothyroidism type: acquired Qualified Code(s): E03.9 - Hypothyroidism, unspecified (5) Internal jugular (IJ) vein thromboembolism, acute Current Visit: Yes Status: Acute Qualifiers: Laterality: right Qualified Code(s): I82.C11 - Acute embolism and thrombosis of right internal jugular vein Brief History of Present Illness: Patient is a pleasant office patient of ours. PMH of esrd, DM2, hypothyroididsm and hyperlipidemia She usually has a home dialysis machine. Her dialysis was not able to get it to work on Tue, or Tuesday. Normally a M,W,F schedules. She has a working shunt and a catheter. Has a follow up with Her surgeon tomorrow at 1pm to get her catheter removed. She was having weakness and sob and came to the ER. She had some higher range potassium. The patient potassium is higher this morning. ER has consulted Dr. Clemens for dialysis Hospital Course: Patient was admitted for dialysis. She had dialysis was run by Dr. Wolff. Her potassium is at normal limits. The patient has a follow up with her vascular surgeron. Which she cancelled. The patient should reschedule. We should see if the cather will need to be removed. Will not start her on eliquis at this time. There was not a definite dvt. just concerns. She most likely has surgery upcoming. Dont want to start anticoagulation before that. The patient has a follow up with Mrs Grijalva tomorrow. Will have them discuss her vascular access. Will discuss her home dialysis unit. Would like her to establish care with Dr. oWlff. In case in the future she has a similar problem. She should have a local spinning frame changer in case of future such problems Vital Signs/Physical Exam: Temp Pulse Resp BP Pulse Ox 97.6 F 77 15 169/71 H 96 05/25/22 04:00 05/25/22 04:00 05/25/22 04:00 05/25/22 04:00 05/25/22 04:00 General: Alert, In no apparent distress HEENT: Atraumatic, PERRLA, EOMI Neck: Supple, JVD not distended Respiratory: Clear to auscultation bilaterally, Normal air movement Cardiovascular: Regular rate/rhythm, Normal S1 S2 Gastrointestinal: Normal bowel sounds, No tenderness Musculoskeletal: No tenderness Integumentary: No rashes Neurological: Normal speech, Normal tone, Normal affect Lymphatics: No axilla or inguinal lymphadenopathy Laboratory Data at Discharge: WBC 3.10 K/uL (4.3-10.9) L 05/25/22 03:15 Hgb 10.3 g/dL (12.0-15.0) L 05/25/22 03:15 Hct 32.4 % (36.0-45.0) L 05/25/22 03:15 Plt Count 202 K/uL (152-406) 05/25/22 03:15 PT 11.0 SECONDS (9.5-12.5) 05/23/22 19:22 INR 1.00 05/23/22 19:22 Sodium 135 mmol/L (136-145) L D 05/25/22 03:15 Potassium 4.3 mmol/L (3.5-5.1) D 05/25/22 03:15 BUN 41 mg/dL (7-18) H 05/25/22 03:15 Creatinine 6.88 mg/dL (0.55-1.3) H* 05/25/22 03:15 Glucose 99 mg/dL (74-106) 05/25/22 03:15 Phosphorus 3.9 mg/dL (2.5-4.9) 05/25/22 03:15 Magnesium 2.5 mg/dL (1.8-2.4) H 05/25/22 03:15 Total Bilirubin 0.5 mg/dL (0.2-1.0) 05/25/22 03:15 AST 19 U/L (15-37) 05/25/22 03:15 ALT 12 U/L (12-78) 05/25/22 03:15 Alkaline Phosphatase 84 U/L (45-117) 05/25/22 03:15 Home Medications: Amlodipine [Norvasc*] 10 mg PO DAILY 07/04/19 Calcium Carbonate [Tums Regular*] 500 mg PO QID 07/04/19 Gabapentin [Neurontin*] 100 mg PO TID 07/04/19 Magnesium Chloride [Slow-Mag*] 64 mg PO DAILY 07/04/19 Omeprazole [Prilosec] 40 mg PO DAILY 07/04/19 Simvastatin 40 mg PO BEDTIME 07/04/19 Tacrolimus [Prograf] 1 cap PO BID 07/04/19 predniSONE [Prednisone*] 5 mg PO DAILY 07/04/19 Calcitriol [Rocaltrol] 1 mcg PO DAILY 06/23/21 Furosemide [Lasix] 20 mg PO BID 06/23/21 Levothyroxine Sodium 25 mcg PO DAILY 06/23/21 Insulin Aspart [Novolog Flexpen] 3 unit SQ SEECOM 08/06/21 Insulin NPH Human [Novolin N (Humulin N)*] 25 unit SQ SEECOM 08/06/21 Promethazine Tab [Phenergan*] 25 mg PO Q8HR PRN 08/06/21 Apixaban [Eliquis] 5 mg PO BID 11/12/21 Fluconazole [Diflucan] 50 mg PO BID 11/12/21 Lactulose 10 gm PO DAILY 11/12/21 cloNIDine HCL [Clonidine HCl] 0.1 mg PO BID 11/12/21 Ciprofloxacin HCl [Cipro 500 MG Tablet] 500 mg PO DAILY 5 Days #5 tab 11/16/21 Diet: Renal Activity: Ad amirah Followup: Ambrosio Raymundo DO [ACTIVE - CAN ADMIT] - 1 Week Fito Bernal MD [Primary Care Provider] - Time spent managing pt's care (in minutes): 30
[2022-05-25 11:27] VITALS: BP 155/66; TEMP 97.3
--- NOTE | 2022-05-25 17:39 | P.PN ---
Date of Service: 05/25/22 Vital Signs Temp Pulse Resp BP Pulse Ox 97.3 F 79 18 155/66 H 97 05/25/22 08:00 05/25/22 08:00 05/25/22 08:00 05/25/22 08:00 05/25/22 08:00 Assessment/ Plan: Nephrology No dyspnea No chest pain Feeling better today No acute events overnight Vitals, medications, blood work and imaging reviewed in the chart. General: In no apparent distress, Oriented x3, Cooperative HEENT: Atraumatic Neck: Supple Respiratory: Clear to auscultation bilaterally Cardiovascular: No edema, Regular rate/rhythm Gastrointestinal: Soft and benign Musculoskeletal: No clubbing, No contractures Integumentary: No rashes, No cyanosis Neurological: Normal speech Urinary: Dialysis catheter Laboratory Data (last 24 hrs) 05/23/22 19:22: PT 11.0, INR 1.00 05/23/22 19:22: Sodium 128 L, Potassium 6.8 H*, BUN 76 H, Creatinine 10.80 H*, Glucose 166 H, Magnesium 2.9 H 05/23/22 18:40: WBC 4.90, Hgb 10.8 L, Hct 34.3 L, Plt Count 208 Imagings Data: COMPARISON: Chest Single View dated 11/12/2021; Chest Single View dated 08/05/2021; Chest Single View dated 08/01/2020; Chest Single View dated 07/03/2019 FINDINGS: Lines: Right IJ approach dialysis catheter with tip overlying the SVC. Lungs: Diffuse prominence of the pulmonary interstitium. Pleural: No significant pleural effusions or pneumothorax. Cardiac: The heart size is within normal limits. Mediastinum: Within normal limits. Bones: No acute fractures. Other: None IMPRESSION: Findings most likely representing interstitial edema. EXAM DESCRIPTION: US - Extremity Venous Uni Ltd - 05/23/2022 8:03 pm CLINICAL HISTORY: SWELLING COMPARISON: Upper Lower Extrem Art Multi dated 04/01/2022; Chest Single View dated 05/23/2022 FINDINGS: Color Doppler, grayscale, and spectral analysis was performed. The right axillary vein, brachial vein, basilic vein, cephalic vein, radial vein, and ulnar vein are all patent. The right subclavian vein is difficult to evaluate due to fully interrogate due to overlying bandage material. The visualized portions are patent. Unable to Doppler flow within the right internal jugular vein. No abnormality identified on grayscale imaging. IMPRESSION: Undetectable flow in the right internal jugular vein by color Doppler. This is concerning for a right IJ thrombosis which may be catheter related. The remaining right upper extremity veins are patent. 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
[2022-05-27 19:16] LABS: HBsAG Nonreactive (Nonreactive)
== END 2022-05-25 11:56 | disposition home or self-care (01) ==
LOC: ER 18:06 → ERHOLD 21:20 → 2ND 05-24 06:34
PROVIDERS: ADMIT Internal Medicine; ATTEND Internal Medicine
DX: N18.6 End stage renal disease (principal); I82.C11 Acute embolism and thrombosis of right internal jugular vein; E11.22 Type 2 diabetes mellitus with diabetic chronic kidney disease; E78.5 Hyperlipidemia, unspecified; E03.9 Hypothyroidism, unspecified; E11.40 Type 2 diabetes mellitus with diabetic neuropathy, unspecified; Z99.2 Dependence on renal dialysis; Z91.15 Patient's noncompliance with renal dialysis; Z79.4 Long term (current) use of insulin
CPT/HCPCS: 93005; 85025 ×3; 80048; 36415 ×2; 83735 ×3; 82550; 84100; 84132; 85610; 82947 ×4; 80069; 84484; 82553; 80053; 86317; 83880; 87340; 71045; 90935; 93971; 96375; 96374; 99285; 87811; J1815 ×3; J1644 ×3; J0610; J2250; G0378 ×4; J2150

== ENCOUNTER 2022-09-28 14:25 | Emergency (ER) | payer OTHER ==
--- OUTSIDE RECORDS SUMMARY | 2022-09-28 15:11 | XMS REPORT | Continuity of Care Document ---
:1955 Author Organization [facility] t Address [address] [place] [address] Care Team Providers Name Role Phone HÉCTOR GILL MIGUEL Primary Care Physician Unavailable Az Guerrero Attending Clinician Unavailable Lexis Long Attending Clinician Unavailable Brook Jay RN Attending Clinician Unavailable Marcella Stewart Attending Clinician Unavailable Shahzad SORIANO, Courtney Attending Clinician Unavailable Billie Palmer RN Attending Clinician Unavailable Home PILLAI, Inder Roach Attending Clinician Thuy Vela RN Attending Clinician Unavailable Chaim PILLAI, Laina Moon Attending Clinician Oralia PILLAI, Joceline Attending Clinician Lynn PILLAI, Onelia Eng Attending Clinician Raghu Sheehan MD Attending Clinician Uzam Nieves MA Attending Clinician Unavailable Jhon Wesley MD Attending Clinician Yolanda PILLAI, Az French Attending Clinician [phone] Miriamsabiha RODRIGUEZ Kayce R Attending Clinician Adele PILLAI, Ellen Attending Clinician [...] Attending Clinician Paola Lobato MD Attending Clinician [phone] Demetra Short CRNA Attending Clinician MD SHARIFA HANSEN Attending Clinician Unavailable SANDRA CERVANTES Attending Clinician Unavailable Sophia Rosales MA Attending Clinician Unavailable Jasmyn Angel Attending Clinician Unavailable Kezia Peck Attending Clinician Unavailable Darline Serrano MA Attending Clinician Unavailable Lazara Ha MA Attending Clinician Unavailable Yuliana Billy RN Attending Clinician Unavailable Ana Laura Combs MD Attending Clinician Suellen PILLAI, [facility] Attending Clinician MD ANA LAURA COMBS Attending Clinician Unavailable BHUMI CROWE Attending Clinician Unavailable YULISA HARVEY Attending Clinician Unavailable KYRA PATEL Attending Clinician Unavailable Physician, No Primary or Family Admitting Clinician UnavailMarcella Frank Admitting Clinician Unavailable THAO DAI (MARKETING OPERATIONS ASSISTANT) Admitting Clinician Unavailable JOCELINE BARTON Admitting Clinician Unavailable ELLEN ANGULO Admitting Clinician Unavailable MD ELLEN ANGULO Admitting Clinician Unavailable SHARIFA HANSEN Admitting Clinician Unavailable MD SHARIFA HANSEN Admitting Clinician Unavailable ANA LAURA COMBS Admitting Clinician Unavailable MD ANA LAURA COMBS Admitting Clinician Unavailable KYRA PATEL Admitting Clinician Unavailable Payers Payer Name Policy Type Policy Number Effective Date Expiration Date Tremaine rashid TWELVE MILE 53 [id number] 2021 Common [employer] DUAL 00:00:00 [facility] UNITED 111 [id number] Common HE[employer] [facility] MEDIC[facility] Problems Condition Condition Condition Status Onset Resolution [...] Postproced Disease Active M ethodi ural ural 3 pneumothor pneumothor 00:00: Ho spita ax ax 00 l ESRD (end ESRD (end Disease Active Met [facility]odi stage stage 3-29 st renal renal 00:00: Hospita disease) disease) 00 l on on dialysis dialysis Uremia Uremia Disease Active Methodi 3 st 00:00: Hospita 00 l CKD CKD Disease Active Methodi (chronic (chronic 3 kidney kidney 00:00: Hospita disease) disease) 00 l stage 5, stage 5, GFR less GFR less than 15 than 15 ml/min ml/min Generalize Generalize Disease Active M ethodi d weakness d weakness 3-11 st 00:00: Hospita 00 l JOE (acute JOE (acute Disease Active M ethodi kidney kidney 08-25 st injury) injury) 00:00: Hospita 00 l Age-relate Age-relate Disease Active M ethodi d d 7- st osteoporos osteoporos 00:00: Ho spita is [...] Active M ethodi due to due to 2-17 st Cryptococc Cryptococc 00:00: Ho spita us species us species 00 l COVID-19 COVID-19 Disease Active Metho di virus virus 08-31 st detected detected 00:00: Hospit a 00 l Localized Localized Disease Active Met hodi osteoporos osteoporos 1- st is of is of 00:00: Hospita spine spine 00 l Lower Lower Disease Active Methodi abdominal abdominal 131 st pain pain 00:00: Hospita 00 l [...] Other Other Disease Active Methodi constipati constipati 8-26 st on on 00:00: Hospita 00 l Immunosupp Immunosupp Disease Active M ethodi ressive ressive 4-01 st management management 00:00: [facility] encounter encounter 00 l following following kidney kidney transplant transplant 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 00:00: [facility] 00 l Preop Preop Disease Active Methodi examinatio examinatio 10-30 st n n 00:00: Hospita 00 l Closed Closed Disease Active Methodi displaced displaced 02-23 fracture fracture 00:00: Hospit a of of 00 l tuberosity tuberosity of left of left calcaneus calcaneus Dehydratio Dehydratio Disease Active M ethodi n n 12-29 00:00: Hospita 00 l Pseudophak Pseudophak Disease [...] Disease Active M ethodi ed ed 10-27 diabetes diabetes 00:00: Hospit a mellitus mellitus 00 l with with diabetic diabetic nephropath nephropath y, with y, with long-term long-term current current use of use of insulin insulin Steroid-in 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 Active M ethodi duced duced 10-27 osteoporos osteoporos 00:00: [facility] is is [...] Disease Active M ethodi obesity obesity 08-24 st due to due to 00:00: Hospita excess excess 00 l calories calories Osteopenia Osteopenia Disease Active M ethodi 08-24 st 00:00: Hospita 00 l Kidney Kidney Disease Active Methodi transplant transplant 08-24 recipient recipient 00:00: [facility] 00 l Vitamin D Vitamin D Disease Active Met [facility] deficiency deficiency 08-24 00:00: Hospita 00 l Diarrhea Diarrhea Disease Active Metho di 08-07 st 00:00: Hospita 00 l Vitamin D [...] Disease Active Met [facility] (primary) (primary) 04-13 st hypertensi hypertensi 00:00: Ho spita on on 00 l 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 04-13 associated associated 00:00: [facility] with type with type 00 l 2 diabetes 2 diabetes mellitus mellitus Encounter Encounter Disease Active Met [facility]odi for for 04-13 st aftercare aftercare 00:00: [facility] following following 00 l kidney kidney transplant transplant 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 GFR 15-29 Medical ml/min Center [id number] Voiding Problem Commo n dysfunctio [facility] n - [facility] [id number] Dependence Problem Co mmon on Spirit intermitte - [facility] nt renal dialysis [facility] [id number] FCI Problem Com mon current [facility] use of - [facility] insulin [facility] [id number] Dyslipidem Problem Co mmon ia [facility] [id number] Gastroesop Problem Co mmon hageal [facility] reflux - [facility] disease, esophagiti [facility] s presence Medica l not Center specified [id number] Type 2 Problem Common diabetes [facility] mellitus - [facility] with other diabetic [facility] kidney Medical complicati Center on [id number] Encounter Problem Com mon for Spirit immunizati - [facility] on [facility] [id number] Environmen Problem Co mmon clemente [facility] allergies - [facility] [id number] Age Problem Common related [facility] osteoporos - [facility] al fracture presence Allergies, Adverse Reactions, Alerts Allergy Allergy Status Severity Reaction(s) Onset Inactive Treating Comm ents Source Name Type Date Date Clinician No Known DA Active [facility] Allergie 5-10 Clear s 00:00: [place] 00 [facility] No Known Propensi Active Method i Drug ty to 7 st Allergie adverse 00:00: Hospita s reaction 00 l s to drug NO KNOWN Allergy Active [facility] Family History Family Member Diagnosis Comments Start Date Stop Date Source Natural father Diabetes [facility] Natural sister Diabetes [facility] Social History Social Habit Start Date Stop Date Quantity Comments Source Exposure to Not sure [facility] SARS-CoV-2 [facility] (event) History of Common [facility] - Tobacco Use [facility] Alcohol intake 2022-08-19 2022-08-19 Current Jewish 00:00:00 00:00:00 non-drinker of Hospital alcohol (finding) Tobacco use and 2015-01-02 2015-01-02 Never used [facility] exposure 00:00:00 00:00:00 [facility] Center Sex Ass[birth year] [facility] 00:00:00 00:[facility]00 [facility] Smoking Status Start Date Stop Date Source Never smoked tobacco [facility] Medications Ordered Filled Start Stop Current Ordering Indication Dosage Frequency Signature Comments Components Source Medication Medication Date Date Medication? Clinician (SIG) Name Name Renetta levoFLOXaci 2021- No levoFLOXac n 250 MG n 250 MG 02-10-16 in 250 MG 00:00: 00:00 00 :00 aspirin Yes 81mg QD Take 81 mg Meth sintia (ECOTRIN) 6-[address] 81 MG 14:29: daily. Hospita enteric 14 l coated tablet gabapentin Yes 100mg Q.[id number] Take 100 Methodi (NEURONTIN) 6-15 [id number] mg by s t 100 mg 14:29: [...] 14 times [place] [id number] 1{tbl} Q4H Take 1 M ethodi en-codeine [...] 14 l coated tablet gabapentin Yes 100mg Q.[id number] Take 100 Methodi (NEURONTIN) 6-15 [id number] mg by s t 100 mg 14:29: [...] 14 times [place] [id number] 1{tbl} Q4H Take 1 M ethodi en-codeine [...] 14 l coated tablet gabapentin Yes 100mg Q.[id number] Take 100 [facility] (NEURONTIN) 6-15 [id number] mg by s t 100 mg 14:29: [...] 14 times a l day. acetaminoph [place] [id number] 1{tbl} Q4H Take 1 M ethodi en-codeine [...] 14 l coated tablet gabapentin Yes 100mg Q.[id number] Take 100 [facility] (NEURONTIN) 6-15 [id number] mg by s t 100 mg 14:29: [...] 14 times [place] [id number] 1{tbl} Q4H Take 1 M ethodi en-codeine [...] 100mg QD Take 1 [facility] (DIFLUCAN) 01-[address] 100 MG 00:00: 04:59 (100 mg Hospita tablet 00 :00 total) by l mouth daily for 30 days. fluconazole 2021- No 100mg QD Take 1 [facility] (DIFLUCAN) 6-[address] 100 MG 00:00: 04:59 (100 mg Hospita tablet 00 :00 total) by l mouth daily for 30 days. fluconazole 2021- No 100mg QD Take 1 [facility] (DIFLUCAN) 6-12 02-[address] 100 MG 00:00: 04:59 (100 mg Hospita tablet 00 :00 total) by l mouth daily for 30 days. fluconazole 2021- No 100mg QD Take 1 [facility] (DIFLUCAN) 6-15 07-[address] 100 MG 00:00: 04:59 (100 mg Hospita tablet 00 :00 total) by l mouth daily for 30 days. fluconazole 2021- No 400mg QD Take 400 [...] No 400mg QD Take 400 Method[facility] (DIFLUCAN) 6- 06-[address] 200 MG 16:17: 00:00 mouth Hospita tablet 54 :00 daily. l fluconazole 2021- No 400mg QD Take 2 [facility] (DIFLUCAN) 6- 06-[address] 200 MG 00:00: 00:00 (400 mg Hospita tablet 00 :00 total) by l mouth daily for 30 days. fluconazole 2021- No 400mg QD Take 2 [facility] (DIFLUCAN) 6-03 06-[address] 200 MG 00:00: 00:00 (400 mg Hospita tablet 00 :00 total) by l mouth daily for 30 days. fluconazole 2021- No 400mg QD Take 2 Me [facility] (DIFLUCAN) 6- 06-[address] 200 MG 00:00: 00:00 (400 mg Hospita tablet 00 :00 total) by l mouth daily for 30 days. fluconazole 2021- No 400mg QD Take 2 [facility] (DIFLUCAN) 6-03 06-[address] 200 MG 00:00: 00:00 (400 mg Hospita tablet 00 :00 total) by l mouth daily for 30 days. furosemide 2021-2021- No 40mg Q.5D Take 1 Meth sintia (LASIX) 40 4-26 05-27 tablet (40 st mg tablet 00:00: 04:59 mg total) Ho spita 00 :00 by mouth 2 l (two) times a day for 30 days. hydrALAZINE 2021-0 2022- No 50mg Q.5D Take 1 Met hodi (APRESOLINE 4-26 05-27 tablet (50 s t ) 50 MG 00:00: 04:59 mg total) [facility] tablet 00 :00 by mouth 2 l (two) times a day for 30 days. furosemide 2021-2021- No 40mg Q.5D Take 1 Meth sintia (LASIX) 40 4-26 05-27 tablet (40 st mg tablet 00:00: 04:59 mg total) Ho spita 00 :00 by mouth 2 l (two) times a day for 30 days. hydrALAZINE 2021-2021- No 50mg Q.5D Take 1 Met hodi (APRESOLINE 4-26 05-27 tablet (50 s t ) 50 MG 00:00: 04:59 mg total) [facility] tablet 00 :00 by mouth 2 l (two) times a day for 30 days. furosemide 2021-0 2021- No 40mg Q.5D Take 1 Meth sintia (LASIX) 40 4-26 05-27 tablet (40 st mg tablet 00:00: 04:59 mg total) Ho spita 00 :00 by mouth 2 l (two) times a day for 30 days. hydrALAZINE 2021-2021- No 50mg Q.5D Take 1 Met hodi (APRESOLINE 4-26 05-27 tablet (50 s t ) 50 MG 00:00: 04:59 mg total) [facility] tablet 00 :00 by mouth 2 l (two) times a day for 30 days. furosemide 2021-0 2021- No 40mg Q.5D Take 1 Meth sintia (LASIX) 40 4-26 05-27 tablet (40 st mg tablet 00:00: 04:59 mg total) Ho spita 00 :00 by mouth 2 l (two) times a day for 30 days. hydrALAZINE 2021-2- No 50mg Q.5D Take 1 Met hodi (APRESOLINE 4-26 05-27 tablet (50 s t ) 50 MG 00:00: 04:59 mg total) [facility] tablet 00 :00 by mouth 2 l (two) times a day for 30 days. traMADoL 2021- No [id number] 50mg Q8H Take 1 Metho di (Ultram) 50 4-26 05-02 tablet (50 s t mg tablet 00:00: 04:59 mg total) Ho spita 00 :00 by mouth l every 8 (eight) hours as needed for moderate pain for up to 5 days .acute pain. traMADoL 2021- No [id number] 50mg Q8H Take 1 Metho di (Ultram) 50 4-26 05-02 tablet (50 s t mg tablet 00:00: 04:59 mg total) Ho spita 00 :00 by mouth l every 8 (eight) hours as needed for moderate pain for up to 5 days .acute pain. traMADoL 2021- No 10178 50mg Q8H Take 1 Metho di (Ultram) 50 4-26 05-02 tablet (50 s t mg tablet 00:00: 04:59 mg total) Ho spita 00 :00 by mouth l every 8 (eight) hours as needed for moderate pain for up to 5 days .acute pain. traMADoL 2021- No [id number] 50mg Q8H Take 1 Metho di (Ultram) 50 4-26 05-02 tablet (50 s t mg tablet 00:00: 04:59 mg total) Ho spita 00 :00 by mouth l every 8 (eight) hours as needed for moderate pain for up to 5 days .acute pain. metoprolol No 12.5mg QD Take 0.5 Methodi succinate 3-30 -[address] XL 00:00: 04:59 (12.5 mg Hospita (TOPROL-XL) 00 :00 total) by l 25 mg 24 hr mouth tablet daily for 30 days. epoetin 2021- [place] [address] 8000U Q.04002765 Inject 2 Methodi fadia 3-30 -30 [id number] mL (8,000 st (EPOGEN) 00:00: 04:59 3W [...] tablet daily for 30 days. insulin NPH 2021- No 15U QD Inject Met hodi (HumuLIN-N) 10-28- 0.[address] 100 unit/mL 00:00: 04:59 (15 Units Hospita injection 00 :00 total) l under the skin daily before breakfast for 30 days. metoprolol No 12.5mg QD Take 0.5 Methodi succinate 10-28-[address] XL 00:00: 04:59 (12.5 mg Hospita (TOPROL-XL) 00 :00 total) by l 25 mg 24 hr mouth tablet daily for 30 days. epoetin 2021- No 38398 8000U Q.[id number] Inject 2 Methodi fadia 10-28 [id number] mL (8,000 st (EPOGEN) 00:00: 04:59 3W [...] tablet daily for 30 days. insulin NPH 2021-2021- No 15U QD Inject Met hodi (HumuLIN-N) 10-28-[address] 100 unit/mL 00:00: 04:59 (15 Units Hospita injection 00 :00 total) l under the skin daily before breakfast for 30 days. metoprolol 2021- No 12.5mg QD Take 0.5 Methodi succinate 30 -[address] XL 00:00: 04:59 (12.5 mg Hospita (TOPROL-XL) 00 :00 total) by l 25 mg 24 hr mouth tablet daily for 30 days. epo[place] 2021- [place] 95[address] 8000U Q.20041198 Inject 2 Methodi fadia 10-28 [id number] mL (8,000 st (EPOGEN) 00:00: 04:59 3W [...] 50ug QD Take 1 Met hodi ne 10-28- tablet (50 st (SYNTHROID) 00:00: 04:59 mcg total) Hospita 50 mcg 00 :00 by mouth l tablet daily for 30 days. insulin NPH 2021- No 15U QD Inject Met hodi (HumuLIN-N) 10-[address] 100 unit/mL 00:00: 04:59 (15 Units Hospita injection 00 :00 total) l under the skin daily before breakfast for 30 days. metoprolol 2021- No 12.5mg QD Take 0.5 Methodi succinate 30 -[address] XL 00:00: 04:59 (12.5 mg Hospita (TOPROL-XL) 00 :00 total) by l 25 mg 24 hr mouth tablet daily for 30 days. epoetin 2021- [place] 09[address] 8000U Q.22598162 Inject 2 Methodi fadia -28 11- [id number] mL (8,000 st (EPOGEN) 00:00: 04:59 3W Units Hospita 4,000 00 :00 total) l unit/mL under the injection skin 3 (three) times a week for 30 days .ESRD on Dialysis. cinacalcet 30mg QD Take 1 Meth sintia (SENSIPAR) [...] daily before breakfast for 30 days. predniSONE 13434 2.5mg QD Take 1 [facility] (DELTASONE) 10-28- tablet st 2.5 mg 00:00: 00:00 (2.5 mg Hospita tablet 00 :00 total) by l mouth daily for 30 days .prevent kidney transplant rejection. predniSONE 75421 2.5mg QD Take 1 Me [facility] (DELTASONE) 10-28-[address] 2.5 mg 00:00: 00:00 (2.5 mg Hospita tablet 00 :00 total) by l mouth daily for 30 days .prevent kidney transplant rejection. predniSONE 75788 2.5mg QD Take 1 Me [facility] (DELTASONE) 10-28-[address] 2.5 mg 00:00: 00:00 (2.5 mg Hospita tablet 00 :00 total) by l mouth daily for 30 days .prevent kidney transplant rejection. predniSONE 36292 2.5mg QD Take 1 Me [facility] (DELTASONE) -28 11-[address] 2.5 mg 00:00: 00:00 (2.5 mg Hospita tablet 00 :00 total) by l mouth daily for 30 days .prevent kidney transplant rejection. clonIDINE 2022-0 Yes .1mg Q.[id number] Take 1 Methodi (CATAPRES) 3-29 [id number] tablet s t 0.1 MG 00:00: 3D [...] day with meals. clonIDINE 2022-0 Yes .1mg Q.[id number] Take 1 Method[facility] (CATAPRES) 3-29 [id number] tablet s t 0.1 MG 00:00: 3D [...] day with meals. clonIDINE 2022-0 Yes .1mg Q.[id number] Take 1 Method[facility] (CATAPRES) 3-29 [id number] tablet s t 0.1 MG 00:00: 3D [...] day with meals. clonIDINE 2022-0 Yes .1mg Q.[id number] Take 1 Method[facility] (CATAPRES) 3-29 [id number] tablet s t 0.1 MG 00:00: 3D (0.1 mg Hospita tablet 00 total) by l mouth 3 (three) times a day as needed for high blood pressure (systolic > 160) for up to 30 days. metoclopram Yes 5mg Q.5D Take 1 Meth sintia apollo - tablet (5 st (REGLAN) 5 00:00: mg [...] to 30 days. lactulose 2021- No 20g Q.[id number] Take 30 mL Methodi 20 gram/30 10-27 [id number] (20 g s t mL solution 00:00: [...] thodi in 10-[address] (NITROSTAT) 00:00: :59 (0.4 mg Ho spita 0.4 MG SL [...] to 30 days. lactulose 2021- No 20g Q.[id number] Take 30 mL Methodi 20 gram/30 10-27 [id number] (20 g s t mL solution 00:00: [...] to 30 days. lactulose 2021- No 20g Q.[id number] Take 30 mL Methodi 20 gram/30 10-27 [id number] (20 g s t mL solution 00:00: [...] to 30 days. lactulose 2021- No 20g Q.[id number] Take 30 mL Methodi 20 gram/30 10-27 [id number] (20 g s t mL solution 00:00: [...] for 30 days. insulin 2021- No 0U Q.[id number] Inject M ethodi lispro 10-27 [id number] 0-[address] (ADMELOG) 00:00: 00:00 3D [...] injection (twelve) hours for 30 days. insulin 2022-0 2022- No 0U Q.[id number] Inject M ethodi lispro 3-29 04-26 [id number] 0-[address] (ADMELOG) 00:00: 00:00 3D under the Ho spita 100 unit/mL 00 :00 skin 3 l injection (three) times a day with meals for 30 days. heparin 2022-0 2022- No 5000U Q.5D Inject 1 Meth sintia sodium,porc 3-29 04-26 mL (5,000 st ine 00:00: 00:00 Units Hospita (HEParin, 00 :00 total) l porcine,) under the 5,000 skin every unit/mL 12 injection (twelve) hours for 30 days. insulin 202-0 2022- No 0U Q.[id number] Inject M ethodi lispro 3-29 04-26 [id number] 0-[address] (ADMELOG) 00:00: 00:00 3D under the Ho spita 100 unit/mL 00 :00 skin 3 l injection (three) times a day with meals for 30 days. heparin 2022-0 2022- No 5000U Q.5D Inject 1 Meth sintia sodium,porc 3-29 04-26 mL (5,000 st ine 00:00: 00:00 Units Hospita (HEParin, 00 :00 total) l porcine,) under the 5,000 skin every unit/mL 12 injection (twelve) hours for 30 days. insulin 2022-0 2022- No 0U Q.[id number] Inject M ethodi lispro 3-29 04-26 [id number] 0-[address] (ADMELOG) 00:00: 00:00 3D under the Ho spita 100 unit/mL 00 :00 skin 3 l injection (three) times a day with meals for 30 days. heparin 2022-0 2022- No 5000U Q.5D Inject 1 Meth sintia sodium,porc 3-29 04-26 mL (5,000 st ine 00:00: 00:00 Units Hospita (HEParin, 00 :00 total) l porcine,) under the 5,000 skin every unit/mL 12 injection (twelve) hours for 30 days. ondansetron 2021-0 2- No 4mg Q8H Take 1 Met hodi ODT 3-29 04-02 tablet (4 st (ZOFRAN-ODT 00:00: 04:59 mg total) Hospita ) 4 MG 00 :00 by mouth l disintegrat every 8 ing tablet (eight) hours as needed for nausea or vomiting for up to 3 days. HYDROcodone 2021-0 2021- [place] [id number] 1{tbl} Q8H Take 1 Methodi -acetaminop 3-29 04-[address] hen (The Switch) 00:00: 04:59 mouth [facility] 10-325 mg 00 :00 every 8 l per tablet (eight) hours as needed for severe pain for up to 3 days .acute pain. Max Daily Amount: 3 tablets ondansetron 2021-0 2021- No 4mg Q8H Take 1 Met [facility]odi ODT 3-29 04-02 tablet (4 st (ZOFRAN-ODT 00:00: 04:59 mg total) Hospita ) 4 MG 00 :00 by mouth l disintegrat every 8 ing tablet (eight) hours as needed for nausea or vomiting for up to 3 days. HYDROcodone 2021-0 2021- No [id number] 1{tbl} Q8H Take 1 Methodi -acetaminop 3-29 04-[address] hen (The Switch) 00:00: 04:59 mouth [facility] 10-325 mg 00 :00 every 8 l per tablet (eight) hours as needed for severe pain for up to 3 days .acute pain. Max Daily Amount: 3 tablets ondansetron 2021-0 2021- No 4mg Q8H Take 1 Met [facility]odi ODT 3-29 04-02 tablet (4 st (ZOFRAN-ODT 00:00: 04:59 mg total) Hospita ) 4 MG 00 :00 by mouth l disintegrat every 8 ing tablet (eight) hours as needed for nausea or vomiting for up to 3 days. HYDROcodone 2021-0 2021- No [id number] 1{tbl} Q8H Take 1 Methodi -acetaminop 3-29 04-[address] hen (The Switch) 00:00: 04:59 mouth [facility] 10-325 mg 00 :00 every 8 l per tablet (eight) hours as needed for severe pain for up to 3 days .acute pain. Max Daily Amount: 3 tablets ondansetron No 4mg Q8H Take 1 Met hodi ODT 10-27 tablet (4 st (ZOFRAN-ODT 00:00: 04:59 mg total) Hospita ) 4 MG 00 :00 by mouth l disintegrat every 8 ing tablet (eight) hours as needed for nausea or vomiting for up to 3 [place]. [place] [id number] 1{tbl} Q8H Take 1 Methodi -acetaminop 10-[address] hen (NORCO) 00:00: 04:59 mouth [facility] 10-325 mg 00 :00 every 8 l per tablet (eight) hours as needed for severe pain for up to 3 days .acute pain. Max Daily Amount: 3 tablets insulin No inyecte 8 Meth sintia ASPART 10-[address] (NovoLOG 00:00: 00:00 antes Hospita Flexpen 00 :00 comida 12 l U-100 unidades Insulin) en el 100 unit/mL almuerso y (3 mL) lydia. insulin pen Dosis maria guadalupe por venkatesh es 65 unidades. 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 aspirin 2021- Yes 81mg QD Take 81 mg Meth s[facility]ia (ECOTRIN) 08-[address] 81 MG 13:02: daily. Hospita enteric 45 l coated tablet lactulose Yes 20g Q.[id number] Take 30 mL [facility]i 20 gram/30 08-29 [id number] ([address] mL solution 00:00: 3D total) by H ospita 00 mouth 3 l (three) times a day as needed (constipat ion). lactulose 2021- No 20g Q.[id number] Take 30 mL Methodi 20 gram/30 08-29 [id number] (20 g s t mL solution 00:00: 00:00 3D total) by Hospita 00 :00 mouth 3 l (three) times a day as needed (constipat ion). lactulose 2021- No 20g Q.[id number] Take 30 mL [facility]i 20 gram/30 08-29 [id number] (20 g s t mL solution 00:00: 00:00 3D total) by Hospita 00 :00 mouth 3 l (three) times a day as needed (constipat ion). lactulose 2021- No 20g Q.[id number] Take 30 mL Methodi 20 gram/30 08-29 [id number] (20 g s t mL solution 00:00: 00:00 3D total) by Hospita 00 :00 mouth 3 l (three) times a day as needed (constipat ion). lactulose 2021-0 2021- No 20g Q.[id number] Take 30 mL Methodi 20 gram/30 08-29 [id number] (20 g s t mL solution 00:00: 00:00 3D total) by Hospita 00 :00 mouth 3 l (three) times a day as needed (constipat ion). hydrocortis 2021- No Q.5D Insert Met hodi one 08-[address] ([facility]) 00:00: 05:59 rectum 2 H ospita 2.5 % 00 :00 (two) l rectal times a cream day for 30 days. hydrocortis 2021-0 202- No Q.5D Insert Met [facility] 08-[address] ([facility]) 00:00: 05:59 rectum 2 H ospita 2.5 % 00 :00 (two) l rectal times a cream day for 30 days. hydrocortis 2021-0 2022- No Q.5D Insert Met [facility] 08-[address] ([facility]) 00:00: 05:59 rectum 2 H ospita 2.5 % 00 :00 (two) l rectal times a cream day for 30 days. hydrocortis 2021-0 2021- No Q.5D Insert Met [facility] 08-29 into the ([facility]) 00:00: 05:59 rectum 2 H ospita 2.5 % 00 :00 (two) l rectal times a cream day for 30 days. hydrocortis 2021-0 2022- No Q.5D Insert Met [facility] 08-29 into the ([facility]) 00:00: 05:59 rectum 2 H ospita 2.5 % 00 :00 (two) l rectal times a cream day for 30 days. blood sugar 2022-0 Yes [id number] DX E11.65 [facility] diagnostic 1-[address] strips 00:00: testing Hospita (glucose 00 QID.One l blood) Touch strip test Verio Test strips Strip blood sugar 2022-0 Yes [id number] DX E11.65 Methodi diagnostic 1-[address] strips 00:00: testing Hospita (glucose 00 QID.One l blood) Touch strip test Verio Test strips Strip blood sugar 2022-0 Yes [id number] DX E11.65 Methodi diagnostic 1-[address] strips 00:00: testing Hospita (glucose 00 QID.One l blood) Touch strip test Verio Test strips Strip blood sugar 2022-0 Yes [id number] DX E11.65 [facility] diagnostic 1-[address] strips 00:00: testing Hospita (glucose 00 QID.One l blood) Touch strip test Verio Test strips Strip blood sugar 2022-0 Yes [id number] DX E11.65 [facility] diagnostic 08-[address] strips 00:00: testing Hospita (glucose 00 QID.One l blood) Touch strip test Verio Test strips Strip Amoxicillin Amoxicillin 2020-08- No 1{table -Pot -Pot -01-19 t} Clavulanate Clavulanate 00:00: 00:00 500-125 MG [...] Amoxicillin 2020-08- No 1{table Amoxicilli -Pot -Pot -01-19 t} n-Pot Clavulanate Clavulanate 00:00: 00:00 Clavulanat [...] Q.5D Take 1 Meth sintia (LASIX) 20 2- 12-10 tablet (20 st mg tablet 00:00: [...] l (two) times a day. gabapentin Yes Portal 1 Metho di (NEURONTIN) 04-[address] 100 mg 00:00: por la Hospita capsule 00 boca jacinda l veces al venkatesh (Take 1 capsule by mouth three times a day) gabapentin 2021- No Portal 1 Meth sintia (NEURONTIN) 04-[address] 100 mg 00:00: 00:00 por la [facility] capsule 00 :00 boca jacinda l veces al venkatesh (Take 1 capsule by mouth three times a day) gabapentin 2021- No Portal 1 Meth sintia (NEURONTIN) 04-[address] 100 mg 00:00: 00:00 por la [facility]ita capsule 00 :00 boca jacinda l veces al venkatesh (Take 1 capsule by mouth three times a day) gabapentin 2021- No Portal 1 Meth sintia (NEURONTIN) 04-[address] 100 mg 00:00: 00:00 por la [facility] capsule 00 :00 boca jacinda l veces al venkatesh (Take 1 capsule by mouth three times a day) gabapentin 2021- No Portal 1 Meth sintia (NEURONTIN) 04-22 03-[address] 100 mg 00:00: 00:00 por la [facility] capsule 00 :00 boca jacinda l veces al venkatesh (Take 1 capsule by mouth three times a day) tamsulosin 2020- No .4mg QD Take 0.4 Me [facility]odi (FLOMAX) 02-18 07-[address] 0.4 mg 11:16: 00:00 mouth Hospita capsule 41 :00 daily. l doxycycline 2020- No 100mg Q.5D 100 mg 2 [facility] (VIBRAMYCIN 7-14 07-14 (two) st ) 100 MG 13:12: 00:00 times a Hospi ta capsule 01 :00 day. l amLODIPine 2020-0 Yes 10mg QD Take 1 Metho di (NORVASC) 7-14 tablet (10 st 10 mg 00:00: mg total) Hospita tablet 00 by mouth l daily. omeprazole 2020-0 Yes 40mg QD Take 1 Metho di (PriLOSEC) 7-[address] 40 MG 00:00: (40 mg Hospita capsule 00 total) by l mouth daily. amLODIPine 2020-0 Yes 10mg QD Take 1 Metho di (NORVASC) 7-14 tablet (10 st 10 mg 00:00: mg total) Hospita tablet 00 by mouth l daily. omeprazole 2020-0 Yes 40mg QD Take 1 Metho di (PriLOSEC) 7-[address] 40 MG 00:00: (40 mg Hospita capsule 00 total) by l mouth daily. amLODIPine 2020-0 Yes 10mg QD Take 1 Metho di (NORVASC) 7-14 tablet (10 st 10 mg 00:00: mg total) Hospita tablet 00 by mouth l daily. omeprazole 2020-0 Yes 40mg QD Take 1 Metho di (PriLOSEC) 7-[address] 40 MG 00:00: (40 mg Hospita capsule 00 total) by l mouth daily. amLODIPine 2020-0 Yes 10mg QD Take 1 Metho di (NORVASC) 7-14 tablet (10 st 10 mg 00:00: mg total) Hospita tablet 00 by mouth l daily. omeprazole 2020-0 Yes 40mg QD Take 1 Metho di (PriLOSEC) 02-[address] 40 MG 00:00: (40 mg Hospita capsule 00 total) by l mouth daily. amLODIPine No 10mg QD Take 1 Meth sintia (NORVASC) 02-11 tablet (10 st 10 mg 00:00: 04:59 mg total) Hospit a tablet 00 :00 by mouth l daily. calcitrioL 2021- No [id number] 1ug QD Take 2 Met hodi (ROCALTROL) [...] mouth l yed release daily. (DR/EC) tablet omeprazole No 40mg QD Take 1 Meth sintia (PriLOSEC) 02-[address] 40 MG 00:00: 04:59 (40 mg Hospita capsule 00 :00 total) by l mouth daily. predniSONE 2021- [place] [id number] 5mg QD Take 1 Met hodi (DELTASONE) 02-11 tablet (5 st 5 mg tablet 00:00: 04:59 mg total) Hospita 00 :00 by mouth l daily .prevent kidney transplant rejection. clonIDINE 2021- No .1mg Q.[id number] Take 1 Methodi (CATAPRES) 02-[id number] 0.1 MG 00:00: 04:59 3D (0.1 mg Hospita tablet 00 :00 total) by l mouth 3 (three) times a day. magnesium 2021-0 2022- No 64mg QD Take 1 Metho di chloride 64 02-11 tablet (64 s t mg 00:00: 00:00 mg total) Hospita tablet,fermin 00 :00 by mouth l yed release daily. (DR/EC) tablet predniSONE 2021- [place] [id number] 5mg QD Take 1 Met hodi (DELTASONE) 02-11 tablet (5 st 5 mg tablet 00:00: 00:00 mg total) Hospita 00 :00 by mouth l daily .prevent kidney transplant rejection. clonIDINE 2021- No .1mg Q.[id number] Take 1 [facility] (CATAPRES) 02-[id number] 0.1 MG 00:00: 00:00 3D (0.1 mg Hospita tablet 00 :00 total) by l mouth 3 (three) times a day. magnesium 2021- No 64mg QD Take 1 Metho di chloride 64 02-11 tablet (64 s t mg 00:00: 00:00 mg total) Hospita tablet,fermin 00 :00 by mouth l yed release daily. (DR/EC) tablet predniSONE 2021- [place] [id number] 5mg QD Take 1 Met hodi (DELTASONE) 02-11 tablet (5 st 5 mg tablet 00:00: 00:00 mg total) Hospita 00 :00 by mouth l daily .prevent kidney transplant rejection. clonIDINE 2021- No .1mg Q.[id number] Take 1 [facility] (CATAPRES) 02-[id number] 0.1 MG 00:00: 00:00 3D (0.1 mg Hospita tablet 00 :00 total) by l mouth 3 (three) times a day. magnesium 2021- No 64mg QD Take 1 Metho di chloride 64 02-11 tablet (64 s t mg 00:00: 00:00 mg total) Hospita tablet,fermin 00 :00 by mouth l yed release daily. (DR/EC) tablet predniSONE 2021- [place] [id number] 5mg QD Take 1 Met hodi (DELTASONE) 02-11 tablet (5 st 5 mg tablet 00:00: 00:00 mg total) Hospita 00 :00 by mouth l daily .prevent kidney transplant rejection. clonIDINE 2021- No .1mg Q.[id number] Take 1 [facility] (CATAPRES) 02-[id number] 0.1 MG 00:00: 00:00 3D (0.1 mg Hospita tablet 00 :00 total) by l mouth 3 (three) times a day. magnesium No 64mg QD Take 1 Metho di chloride 64 02-11 tablet (64 s t mg 00:00: 00:00 mg total) Hospita tablet,fermin 00 :00 by mouth l yed release daily. (DR/EC) DR tablet predniSONE 19094 5mg QD Take 1 Met hodi (DELTASONE) 02-11 tablet (5 st 5 mg tablet 00:00: 00:00 mg total) Hospita 00 :00 by mouth l daily .prevent kidney transplant rejection. clonIDINE 2021- No .1mg Q.[id number] Take 1 [facility] (CATAPRES) 02-[id number] 0.1 MG 00:00: 00:00 3D (0.1 mg Hospita tablet 00 :00 total) by l mouth 3 (three) [place] [id number] 1ug QD Take 2 Met hodi (ROCALTROL) [...] times a tablet day. calcitrioL 2021- [place] [id number] 1ug QD Take 2 Met hodi (ROCALTROL) [...] times a tablet day. [place]rio[place] 2021- [place] [address] 1ug QD Take 2 Met hodi (ROCALTROL) [...] times a tablet day. calcitrio[place] 2021- [place] [id number] 1ug QD Take 2 Met hodi (ROCALTROL) [...] times a tablet day. acetaminoph 2020- [place] 00801 1{tbl} Q6H Take 1 [facility] en-codeine 01-27 07-[address] (TYLENOL 00:00: 04:59 mouth Hospita WITH 00 :00 every 6 l CODEINE #3) (six) 300-30 mg hours as per tablet needed for moderate pain for up to 10 days .acute pain. lidocaine 2020- No 1{patch Q24H Place 1 M ethodi (Lidoderm) 01-2104 } patch on st 5 % 00:00: 04:59 the skin Hospita 00 :00 daily for l 10 days. Remove & Discard patch within 12 hours or as directed by tacrolimus 2020-0 Yes .5mg Q.5D Take 1 Metho di (PROGRAF) 6-[address] 0.5 MG 00:00: (0.5 mg Hospita capsule 00 total) by l mouth 2 (two) times a day. DOSE DECREASE - Maki SORIANO for auth [id number] tacrolimus 2020-0 Yes .5mg Q.5D Take 1 Metho di (PROGRAF) 6-[address] 0.5 MG 00:00: (0.5 mg Hospita capsule 00 total) by l mouth 2 (two) times a day. DOSE DECREASE - Maki RN for auth 71 tacrolimus 2020-0 Yes .5mg Q.5D Take 1 Metho di (PROGRAF) 6-[address] 0[address]5 MG 00:00: (0.5 mg Hospita capsule 00 total) by l mouth 2 (two) times a day. DOSE DECREASE - Maki SORIANO for auth 71 91 tacrolimus 2020-0 Yes .5mg Q.5D Take 1 Metho di (PROGRAF) 6-[address] 0.5 MG 00:00: (0.5 mg Hospita capsule 00 total) by l mouth 2 (two) times a day. DOSE DECREASE - Maki SORIANO for auth 71 91 levothyroxi 2020-0 2021- No 50ug QD Take 2 Met hodi ne 01-20-[address] (Synthroid) 00:00: 04:59 (50 mcg Ho spita 25 mcg 00 :00 total) by l tablet mouth daily. Temp refill until pt can see Endo tacrolimus 2020-0 2021- No .5mg Q.5D Take 1 Meth sintia (PROGRAF) 01-20-[address] 0.5 MG 00:00: 04:59 (0.5 mg Hospita capsule 00 :00 total) by l mouth 2 (two) times a day. DOSE DECREASE - Maki SORIANO for auth 71 91 levothyroxi 2020-2021- No 50ug QD Take 2 Met hodi ne 01-20-[address] (Synthroid) 00:00: 00:00 (50 mcg Ho spita 25 mcg 00 :00 total) by l tablet mouth daily. Temp refill until pt can see Endo levothyroxi 2020-2021- No 50ug QD Take 2 Met hodi ne 01-20-[address] (Synthroid) 00:00: 00:00 (50 mcg Ho spita 25 mcg 00 :00 total) by l tablet mouth daily. Temp refill until pt can see Endo levothyroxi 2020-2021- No 50ug QD Take 2 Met hodi ne 01-20-[address] (Synthroid) 00:00: 00:00 (50 mcg Ho spita 25 mcg 00 :00 total) by l tablet mouth daily. Temp refill until pt can see Endo levothyroxi 2021- No 50ug QD Take 2 Met hodi ne 01-20-[address] (Synthroid) 00:00: 00:00 (50 mcg Ho spita 25 mcg 00 :00 total) by l tablet mouth daily. Temp refill until pt can see Endo denosumab 2020- No [id number] 60mg [facility] (PROLIA) 01-19 st syringe 60 17:30: 17:33 Hospit a mg 00 :00 l fluconazole 2020-2021- No 400mg QD Take 2 Me [facility] (DIFLUCAN) --[address] 200 MG 00:00: 05:59 (400 mg Hospita tablet 00 :00 total) by l mouth daily for 300 days. fluconazole 2020-2021- No 400mg QD Take 2 [facility] (DIFLUCAN) 4-30 -[address] 200 MG 00:00: 05:59 (400 mg Hospita tablet 00 :00 total) by l mouth daily for 300 days. fluconazole 2020-2021- No 400mg QD Take 2 Me [facility] (DIFLUCAN) -30 -[address] 200 MG 00:00: 05:59 (400 mg Hospita tablet 00 :00 total) by l mouth daily for 300 days. fluconazole 2021-0 2022- No 400mg QD Take 2 Me thodi [...] 2 l (two) times a day. furosemide No 20mg Q.5D Take 1 Meth sintia (LASIX) 20 11-26- tablet (20 st mg tablet 00:00: 00:00 mg total) Ho spita 00 :00 by mouth 2 l (two) times a day. spironolact No 25mg QD Take 1 Met hodi one 11-26- tablet (25 st (ALDACTONE) 00:00: 00:00 mg total) Hospita 25 MG 00 :00 by mouth l tablet daily. levothyroxi No 25ug QD Take 1 Met hodi ne 11-12 tablet (25 st (Synthroid) 00:00: 00:00 mcg total) Hospita 25 mcg 00 :00 by mouth l tablet daily. nitrofurant No Metho di oin, 11-11 st macrocrysta 00:00: 00:00 Hospi ta l-monohydra 00 :00 l te, (MACROBID) 100 MG capsule tacrolimus No 1mg Q.5D Take 1 Meth sintia (PROGRAF) 1 11-03- capsule (1 s t MG capsule 00:00: 00:00 mg total) H ospita 00 :00 by mouth 2 l (two) times a day. Z94.0; Txp 12/30/09; DC 01/06/10; MCR AB at time of txp; [facility] tacrolimus 2020- No 1mg Q.5D Take 1 Meth sintia (PROGRAF) 1 11-03- capsule (1 s t MG capsule 00:00: 00:00 mg total) H ospita 00 :00 by mouth 2 l (two) times a day. Z94.0; Txp 12/30/09; DC 01/06/10; MCR AB at time of txp; [facility]; Maki SORIANO guaiFENesin 2020- No 600mg Q12H Take 600 [facility] (MUCINEX) 3- 03-[address] 600 mg 13:24: 00:00 mouth Hospita tablet 22 :00 every 12 l extended (twelve) release hours. 12hr simvastatin 2020-2021- No 20mg QD Take 1 Met hodi (ZOCOR) 20 3- 04-01 tablet (20 st mg tablet 00:00: 04:59 mg total) Ho spita 00 :00 by mouth l nightly. simvastatin 2021- No 20mg QD Take 1 Met hodi (ZOCOR) 20 3-29 10-29 tablet (20 st mg tablet 00:00: 00:00 mg total) Ho spita 00 :00 by mouth l nightly. simvastatin 2021- No 20mg QD Take 1 Met hodi (ZOCOR) 20 3-29 10-29 tablet (20 st mg tablet 00:00: 00:00 mg total) Ho spita 00 :00 by mouth l nightly. simvastatin 2020-2021- No 20mg QD Take 1 Met hodi (ZOCOR) 20 3-29 10-29 tablet (20 st mg tablet 00:00: 00:00 mg total) Ho spita 00 :00 by mouth l nightly. simvastatin 2020-2021- No 20mg QD Take 1 Met hodi (ZOCOR) 20 3-29 10-29 tablet (20 st mg tablet 00:00: 00:00 mg total) Ho spita 00 :00 by mouth l nightly. [place]xycycl[place]- [place] [id number] 100mg Q.5D Take 1 M ethodi (MONODOX) 10-27- capsule st 100 MG 00:00: 04:59 (100 mg Hospita capsule 00 :00 total) by l mouth 2 (two) times a day for 7 days .bacterial urinary tract infection. tacrolimus 2020- No 1mg Q.5D Take 1 Meth sintia (PROGRAF) 1 10-27 capsule (1 s t MG capsule 00:00: 00:00 mg total) H ospita 00 :00 by mouth 2 l (two) times a day. Z94.0; Txp 12/30/09; DC 01/06/10; MCR AB at time of txp; [facility]; Maki SORIANO Victoza No INJECT 1.8 Met hodi 3-Tavo 0.6 [...] QD Take 1 Metho di (MEGACE) 40 10-03-29 tablet (40 s t MG tablet 00:00: 00:00 mg total) Ho spita 00 :00 by mouth l daily. meclizine 2020- No 25mg Q.37709267 Take 1 [facility] (ANTIVERT) 09-30 [id number] tablet (25 st 25 mg 00:00: 04:59 [...] dinner for 30 days. sodium 2020- No [id number] 650mg Q.47405474 Take 1 [facility] bicarbonate 09-[id number] 650 mg 00:00: 04:59 3D (650 mg Hospita tablet 00 :00 total) by l mouth 3 (three) times a day for 30 days. polyethylen 2020- No [id number] 17g Q.5D Take 17 g [facility] e glycol 09-[address] (MIRALAX) 00:00: 04:59 (two) Hospit a 17 gram 00 :00 times a l packet day for 30 days. bethanechol 2020- No [id number] 10mg Q.60053922 Take 1 [facility] (URECHOLINE 09-24 [id number] tablet (10 st ) 10 MG 00:00: 04:59 3D mg total) [facility] tablet 00 :00 by mouth 3 l (three) times a day for 30 days. acetaminoph 2020- No [id number] 500mg Q6H Take 1 [facility] en 09-[address] (TYLENOL) 00:00: 04:59 (500 mg [facility] 500 MG 00 :00 total) by l tablet mouth every 6 (six) hours as needed for mild pain or fever for up to 30 days. fluconazole 2020- No 400mg QD Take 2 [facility] (DIFLUCAN) 09-[address] 200 MG 00:00: 00:00 (400 mg Hospita tablet 00 :00 total) by l mouth daily. insulin 2020- No 4U QD Inject 4 Metho di lispro 2-22 02-[address] (HumaLOG) 14:00: 00:00 under [...] and 4 l NPH Insulin units at [facility]) bedtime 100 unit/mL (3 mL) insulin NPH 2021- No Inject 10 [facility] isoph U-100 2-22 03-[address] human 00:00: 00:00 breakfast Hospit a (HumuLIN N 00 :00 and 4 l NPH Insulin units at [facility]) bedtime 100 unit/mL (3 mL) insulin NPH 2021- No Inject 10 [facility] isoph U-100 2-22 03-[address] human 00:00: 00:00 breakfast Hospit a (HumuLIN N 00 :00 and 4 l NPH Insulin units at [facility]) bedtime 100 unit/mL (3 mL) insulin NPH 2021- No Inject 10 [facility]i isoph U-100 2-22 03-[address] human 00:00: 00:00 breakfast Hospit a (HumuLIN N 00 :00 and 4 l NPH Insulin units at [facility]) bedtime 100 unit/mL (3 mL) insulin NPH 2021- No Inject 10 [facility] isoph U-100 2-22 03-[address] human 00:00: 00:00 breakfast Hospit a (HumuLIN N 00 :00 and 4 l NPH Insulin units at [facility]) bedtime 100 unit/mL (3 mL) insulin 2021- No inyecte 3 Meth sintia ASPART 2-22 03-[address] (NovoLOG 00:00: 00:00 antes Hospita Flexpen 00 :00 comida l U-100 Insulin) 100 unit/mL (3 mL) insulin pen insulin No inyecte 3 Meth sintia ASPART 09-22-[address] (NovoLOG 00:00: 00:00 antes Hospita Flexpen 00 :00 comida l U-100 Insulin) 100 unit/mL (3 mL) insulin pen insulin inyecte 3 Meth sintia ASPART 09-22-[address] (NovoLOG 00:00: 00:00 antes Hospita Flexpen 00 :00 comida l U-100 Insulin) 100 unit/mL (3 mL) insulin pen insulin No inyecte 3 Meth sintia ASPART 09-22-[address] (NovoLOG 00:00: 00:00 antes Hospita Flexpen 00 :00 comida l U-100 Insulin) 100 unit/mL (3 mL) insulin pen insulin No Inject 8 Metho di lispro 09-[address] (HumaLOG 00:00: 00:00 breakfast Hos [facility] KwikPen 00 :00 and 12 l Insulin) units 100 unit/mL lunch and injection dinner. pen Patient on sliding scale. Max dose per meal 18 units. insulin NPH No 10U QD Inject 10 [facility]i isoph U-100 09-[address] human 00:00: 00:00 under the Hospit a (HumuLIN N 00 :00 skin daily l NPH Insulin before KwikPen) breakfast. 100 unit/mL (3 mL) predniSONE 2019-08 No [id number] 5mg QD Take 1 Met hodi (DELTASONE) 07-14 tablet (5 st 5 mg tablet 00:00: 00:00 mg total) Hospita 00 :00 by mouth l daily .prevent kidney transplant rejection. tacrolimus 2019-08 02894 1.5mg Q.5D Take 3 Me [facility] (PROGRAF) 09-08-[address] 0.5 MG 00:00: 00:00 (1.5 mg Hospita capsule 00 :00 total) by l mouth 2 (two) times a day .prevent kidney transplant rejection. DOSE CHANGE! blood sugar 2020-1 2022- No DX E11.65 Methodi diagnostic 08-05 Patient [...] a needle 00 times l daily) Insupen 2019-08 Yes Use 5 Method i gauge x 1-[address] 16" 00:00: venkatesh (Use 5 Hospit a needle 00 times l daily) Insupen 2019-08 Yes Use 5 Method i gauge x 1-[address] 516" 00:00: venkatesh (Use 5 Hospit a needle 00 times l daily) Insupen 2019-08 Yes Use 5 Method i gauge x 1-[address] 5/16" 00:00: venkatesh (Use 5 Hospit a needle 00 times l daily) Insupen 2019-08 Yes Use 5 Method i gauge x 1-[address] 516" 00:00: venkatesh (Use 5 Hospit a needle 00 times l daily) blood sugar 2019-08 Yes [id number] DX: E11.65 [facility] diagnostic 0-[address] strips 00:00: times Hospita strip test 00 daily l strips lancets 33 2019-08 Yes DX E11.65 [facility] gauge misc 0-[address] 00:00: testing Hospita 00 QID. l Please match to machine. blood sugar 2019-08 Yes [id number] DX: E11.65 [facility] diagnostic 0-[address] strips 00:00: times Hospita strip test 00 daily l strips lancets 33 2019-08 Yes DX E11.65 Me [facility] gauge misc 0-[address] 00:00: testing Hospita 00 QID. l Please match to machine. blood sugar 2019-08 Yes [id number] DX: E11.65 Method[facility] diagnostic 0-[address] strips 00:00: times Hospita strip test 00 daily l strips lancets 33 2019-08 Yes DX E11.65 Me thodi gauge misc 0-[address] 00:00: testing Hospita 00 QID. l Please match to machine. blood sugar 2019-08 Yes [id number] DX: E11.65 Methodi diagnostic 0-[address] strips 00:00: times Hospita strip test 00 daily l strips lancets 33 2019-08 Yes DX E11.65 Me th[facility] gauge misc 0-[address] 00:00: testing Hospita 00 QID. l Please match to machine. blood sugar 2019-08 Yes [id number] DX: E11.65 Methodi diagnostic 0-[address] strips 00:00: times Hospita strip test 00 daily l strips lancets 33 2019- Yes DX E11.65 Me [facility] gauge misc 0-[address] 00:00: testing Hospita 00 QID. l Please match to machine. Benzonatate Benzonatate 2019- No Na Long 1 capsule Common 03-14 as needed Spirit 00:00: 00:00 - [facility] 00 :00 [facility] amLODIPine 2020- No 10mg QD Take 1 Meth sintia (NORVASC) 02-18 tablet (10 st 10 mg 00:00: 00:00 mg total) Hospit a tablet 00 :00 by mouth l daily. calcitrioL 2020- [place] [id number] 1ug QD Take 2 Met hodi (ROCALTROL) [...] yed release daily. (DR/EC) DR tablet carvediloL No 12.5mg Q.5D Take 1 Me [facility] (COREG) 02-[address] 12.5 MG 00:00: 00:00 (12.5 mg Hospi ta tablet 00 :00 total) by l mouth 2 (two) times a day with meals. clonIDINE 2020- No .1mg Q.27906323 Take 1 [facility] (Catapres) 02-[id number] 0.1 MG 00:00: 00:00 3D (0.1 mg Hospita tablet 00 :00 total) by l mouth 3 (three) times a day. omeprazole 2020- No 40mg QD Take 1 Meth sintia (PriLOSEC) 02-[address] 40 MG 00:00: 00:00 (40 mg Hospita capsule 00 :00 total) by l mouth daily. Cetirizine Cetirizine Yes Na Long 1 tablet Common HCl HCl 6-22 Orally Spirit 00:00: Once a day - [facility] insulin NPH 2020- No 20 units M ethodi (HumuLIN-N) 11-[address] 100 unit/mL 00:00: 00:00 Hospi ta injection 00 :00 l insulin 2020- No 3U Q.[id number] Inject 3 [facility] lispro 11-[id number] (HumaLOG) 00:00: 00:00 3D under [...] QD Take 1 Met hodi (ZOCOR) 20 09-21 tablet (20 st MG tablet 00:00: 00:00 [...] lydia y mas unidades heidy escala movil. albuterol 2020- No 180ug Q4H Inhale 180 [facility] sulfate 90 2-12 03-[address] mcg/actuati 00:00: 00:00 4 (four) H ospita on aerosol 00 :00 hours. sarina mccarthy [phone] breath 91 for activated auth - Maki SORIANO Albuterol Albuterol 2018-0 Yes Na Long 2 puffs Common Sulfate HFA Sulfate HFA 9-25 S pirit 00:00: - [facility] 00 [facility] Albuterol Albuterol 2018-0 No 2{puffs Sulfate HFA Sulfate HFA 9-25 } 108 (90 108 (90 00:00: Base) Base) 00 MCG/ACT MCG/ACT Albuterol Albuterol 2018-0 No 2{puffs Albuterol Sulfate HFA Sulfate HFA 9-25 } Sulfate 108 (90 108 (90 00:00: HFA 108 Base) Base) 00 (90 Base) MCG/ACT MCG/ACT MCG/ACT Albuterol Albuterol 2018-0 No 2{puffs Albuterol Sulfate HFA Sulfate HFA [...] (90 Base) MCG/ACT MCG/ACT MCG/ACT Albuterol Albuterol 2019 No 2{puffs Albuterol Sulfate HFA Sulfate HFA 9-25 } Sulfate 108 (90 108 (90 00:00: HFA 108 Base) Base) 00 (90 Base) MCG/ACT MCG/ACT MCG/ACT Albuterol Albuterol No 2{puffs Albuterol Sulfate HFA Sulfate HFA 9-25 } Sulfate 108 (90 108 (90 00:00: HFA 108 Base) Base) 00 (90 Base) MCG/ACT MCG/ACT MCG/ACT Albuterol Albuterol 2019 No 2{puffs Albuterol Sulfate HFA Sulfate HFA [...] for 10 days gabapentin 2020- No 100mg Q.81037402 Take 1 [facility] (NEURONTIN) 6-[id number] 100 mg 00:00: 00:00 3D (100 mg Hospita capsule 00 :00 total) by l mouth 3 (three) times a day. lesley nichols, 2017-08 Yes 1{piece Q.2D 1 Piece 5 [...] l promethazin Yes EVERY Metho di e 10-[address] (PHENERGAN) 00:00: HOURS Ho spita [...] 2020- No TWICE Metho di (LYRICA) 10-25 06-[address] 100 MG 00:00: 00:00 Hospita capsule 00 :00 l gabapentin 2017- Yes 100mg Q.06500615 Take [address] (NEURONTIN) 4-28 [id number] mg by L ukes 100 MG 11:41: 3D mouth 3 Medical capsule 24 (three) Center times daily. insulin NPH 2017 Yes 22U Inject [address] 100 unit/mL 4-28 [facility] (3 mL) InPn 11:41: subcutaneo Medical 24 usly every Center morning before breakfast . insulin 2017 Yes 8U Inject [address] aspart 4-28 [facility] (NOVOLOG) 11:41: subcutaneo Me dical 100 unit/mL 24 usly 2 Center injection (two) times daily as needed Only gives herself insulin fo BS above 100 - 8 units. insulin NPH Yes 4U Q.5D Inject [address] 100 unit/mL 4-28 [facility] (3 mL) InPn 11:41: subcutaneo Medical 24 usly 2 Center (two) times daily Every NOON and every NIGHT . tacrolimus 2017 Yes 1mg Q.5D Take [address] (PROGRAF) 1 4-28 by mouth 2 Iram kes MG capsule 11:41: (two) Medica l 24 times Center daily. mycophenola 2017-0 Yes Q.5D Take by [facility] te 4-28 mouth 2 [facility] (CELLCEPT) 11:41: (two) Medica l 500 mg 24 times Center tablet daily. mycophenola 2017-0 Yes Q.5D Take by [facility] te 4-28 mouth 2 [facility] (CELLCEPT) 11:41: (two) Medica l 500 mg 24 times Center tablet daily. predniSONE 2017- Yes 5mg QD Take [address] (DELTASONE) 4-28 by mouth Luke s 5 MG tablet 11:41: daily. Medi michael 24 Center amLODIPine 2017 Yes 10mg QD Take [address] (NORVASC) 4-28 by mouth [facility] 10 MG 11:41: daily. Medical tablet 24 Center losartan 2017- Yes 50mg QD Take [address] [facility] (COZAAR) 50 4-28 by mouth [facility] MG tablet 11:41: daily. [facility] 24 [facility] cloNIDine 2017-0 Yes .1mg Q.[id number] Take 0.[address] [facility] HCl 4-28 [id number] mg by [facility] (CATAPRES) 11:41: 3D mouth [...] 11:41: nightly. [facility]i [facility] 24 [facility] calcitriol 2017- Yes .25ug QD Take 0.[address] (ROCALTROL) 4-28 mcg by [facility] 0.25 MCG 11:41: mouth Medical capsule 24 daily. [place] alendronate Yes 70mg Take [address] [facility] (FOSAMAX) 4-28 by mouth [facility] 70 MG 11:41: every 7 Medical tablet 24 days Take Center in the morning with a full glass of water, on an empty stomach, and do not take anything else by mouth or lie down for the next 30 min. . gabapentin 2017-0 Yes 100mg Q.[id number] Take [address] [facility] (NEURONTIN) 4-28 [id number] mg by [facility] 100 MG 11:41: [...] MG tablet 11:41: daily. Medi michael 24 [place] amLODIPine 2017-0 Yes 10mg QD Take [address] (NORVASC) 4-28 by mouth [facility] 10 MG 11:41: daily. Medical tablet 24 [place] losartan 20170 Yes 50mg QD Take [address] [facility] (COZAAR) 50 4-28 by mouth [facility] MG tablet 11:41: daily. Medica l 24 [place] cloNIDine 2017-0 Yes .1mg Q.[id number] Take 0.[address] [facility] HCl - [id number] mg [facility] (CATAPRES) 11:41: 3D mouth 3 Medi michael 0.1 MG 24 (three) Center tablet times daily. omeprazole 2017-0 Yes 40mg QD Take [address] (PRILOSEC) 4-28 by [facility] 40 MG 11:41: daily. Medical capsule 24 [place] simvastatin 20170 Yes 20mg QD Take [address] [facility] (ZOCOR) 20 -28 by mouth [facility] MG tablet 11:41: nightly. Medi michael 24 [place] calcitriol 0 Yes .25ug QD Take 0.[address] (ROCALTROL) 4-28 mcg by [facility] 0.25 MCG 11:41: mouth Medical capsule 24 daily. [place] alendronate 20170 Yes 70mg Take [address] [facility] (FOSAMAX) -28 by mouth [facility] 70 MG 11:41: every 7 Medical tablet 24 days Take Center in the morning with a full glass of water, on an empty stomach, and do not take anything else by mouth or lie down for the next 30 min. . gabapentin 2017-0 Yes 100mg Q.[id number] Take [address] [facility] (NEURONTIN) -28 [id number] mg by L [facility] 100 MG 11:41: [...] 11:41: daily. Medical tablet 24 Center losartan 20170 Yes 50mg QD Take [address] [facility] (COZAAR) 50 4-28 by mouth [facility] MG tablet 11:41: daily. Medica l 24 [place] cloNIDine 2017-0 Yes .1mg Q.[id number] Take 0.[address] [facility] HCl 4-28 [id number] mg by [facility] (CATAPRES) 11:41: 3D mouth [...] 30 min. . gabapentin 2017-0 Yes 100mg Q.[id number] Take [address] [facility] (NEURONTIN) 4-28 [id number] mg by L ukes 100 MG 11:41: [...] 11:41: daily. Medical tablet 24 Center losartan 2017- Yes 50mg QD Take [address] [facility] (COZAAR) 50 4-28 by mouth [facility] MG tablet 11:41: daily. Medica l 24 [place] cloNIDine 2016- Yes .1mg Q.[id number] Take 0.[address] [facility] HCl 4-28 [id number] mg [facility] (CATAPRES) 11:41: 3D mouth 3 Medi michael 0.1 MG 24 (three) Center tablet times daily. omeprazole 2017- Yes 40mg QD Take [address] (PRILOSEC) 4-28 [facility] 40 MG 11:41: daily. Medical capsule 24 [place] simvastatin Yes 20mg QD Take [address] [facility] (ZOCOR) 20 4-28 by mouth [facility] MG tablet 11:41: nightly. Medi michael 24 [place] calcitriol Yes .25ug QD Take 0.[address] (ROCALTROL) 4-28 mcg by [facility] 0.25 MCG 11:41: mouth Medical capsule 24 daily. [place] alendronate Yes 70mg Take [address] [facility] (FOSAMAX) 4-28 by [facility] 70 MG 11:41: every 7 Medical tablet 24 days Take Center in the morning with a full glass of water, on an empty stomach, and do not take anything else by mouth or lie down for the next 30 min. . gabapentin Yes 100mg Q.[id number] Take [address] [facility] (NEURONTIN) 4-28 [id number] mg by L ukes 100 MG 11:41: 3D mouth 3 Medical capsule 24 (three) Center times daily. insulin NPH Yes 22U Inject [address] 100 unit/mL 4-28 Units [facility] (3 mL) InPn 11:41: subcutaneo Medical 24 usly every Center morning before breakfast . insulin 2017- Yes 8U Inject [address] [facility] aspart [...] 11:41: daily. Medi michael 24 Center amLODIPine 2016-0 Yes 10mg QD Take [address] (NORVASC) 4-28 [facility] 10 MG 11:41: daily. Medical tablet 24 [place] losartan 2017-0 Yes 50mg QD Take [address] [facility] (COZAAR) 50 4-28 by mouth [facility] MG tablet 11:41: daily. Medica l 24 [place] cloNIDine 2017-0 Yes .1mg Q.[id number] Take 0.[address] [facility] HCl 4-28 [id number] mg [facility] (CATAPRES) 11:41: 3D mouth 3 Medi michael 0.1 MG 24 (three) Center tablet times daily. omeprazole 20170 Yes 40mg QD Take [address] (PRILOSEC) 4-28 [facility] mouth [facility] 40 MG 11:41: daily. Medical capsule 24 [place] simvastatin 20170 Yes 20mg QD Take [address] [facility] (ZOCOR) 20 4-28 by mouth [facility] MG tablet 11:41: nightly. Medi michael 24 [place] calcitriol 20170 Yes .25ug QD Take 0.[address] (ROCALTROL) 4-28 mcg by [facility] 0.25 MCG 11:41: mouth Medical capsule 24 daily. [place] alendronate 0 Yes 70mg Take [address] [facility] (FOSAMAX) 4-28 by mouth [facility] 70 MG 11:41: every 7 Medical tablet 24 days Take Center in the morning with a full glass of water, on an empty stomach, and do not take anything else by mouth or lie down for the next 30 min. . gabapentin 2017-0 Yes 100mg Q.[id number] Take [address] [facility] [address] (NEURONTIN) 4-28 [id number] mg by L [facility] 100 MG 11:41: [...] 11:41: daily. Medi michael 24 Center amLODIPine 20170 Yes 10mg QD Take [address] (NORVASC) 4-28 [facility] mouth [facility] 10 MG 11:41: daily. Medical tablet 24 Center losartan 2017-0 Yes 50mg QD Take [address] [facility] (COZAAR) 50 4-28 by mouth [facility] MG tablet 11:41: daily. Medica l 24 Center cloNIDine 2017-0 Yes .1mg Q.[id number] Take 0.[address] [facility] [address] HCl 4-28 [id number] mg by [facility] (CATAPRES) 11:41: 3D mouth 3 Medi michael 0.1 MG 24 (three) Center tablet times daily. omeprazole 2017-0 Yes 40mg QD Take [address] (PRILOSEC) 4-28 [facility] 40 MG 11:41: daily. Medical capsule 24 [place] simvastatin Yes 20mg QD Take [address] [facility] (ZOCOR) 20 4-28 by mouth [facility] MG tablet 11:41: nightly. Medi michael 24 [place] calcitriol Yes .25ug QD Take 0.[address] (ROCALTROL) 4-28 mcg by [facility] 0.25 MCG 11:41: mouth Medical capsule 24 daily. [place] alendronate Yes 70mg Take [address] [facility] (FOSAMAX) 4-28 [facility] 70 MG 11:41: every 7 Medical tablet 24 days Take Center in the morning with a full glass of water, on an empty stomach, and do not take anything else by mouth or lie down for the next 30 min. . alendronate 2015-08- No 1{tbl} 1 tablet. [facility] (FOSAMAX) 0-04 06-21 [facility] 70 MG 00:00: 00:00 [facility] tablet 00 :00 l losartan 2020- No 2{tbl} 2 tablets. [facility] (COZAAR) 50 5-14 06-21 [facility] MG tablet 00:00: 00:00 [facility] 00 :00 l PredniSONE PredniSONE Yes Na Long 1 tablet Common [facility] Prograf Prograf Yes Na Long not Common defined [facility] Senna Senna Yes Na Long not Common [facility] Catapres Catapres Yes Na Long not Comm on defined [facility] Tradjenta Tradjenta Yes Na Long not Co mmon defined [facility] Lactulose Lactulose Yes Na Long not Co mmon defined [facility] Amlodipine Amlodipine Yes Na Long 1 tablet Common Besylate Besylate [facility] Coreg Coreg Yes Na Long 1 tablet Common with food [facility] ProAir HFA ProAir HFA Yes Na Logn 1 puff as Common needed [facility] Simvastatin Simvastatin Yes Na Long 1 tablet Common in the [facility] CellCept CellCept Yes Na Long not Comm on defined [facility] megace megace Yes Na Long not Common defined [facility] Tylenol # 3 Tylenol # 3 Yes Na Long not Common defined [facility] MiraLax MiraLax Yes Na Long as Common directed [facility] Mycophenola Mycophenola Yes Na Long as Common te Mofetil te Mofetil directed [facility] Tums Tums Yes Na Long not Common defined [facility] Calcitriol Calcitriol Yes Na Long not Common defined [facility] Norvasc Norvasc Yes Na Long not Common defined [facility] Tacrolimus Tacrolimus Yes Na Long 2 tablets Common [facility] Zocor Zocor Yes Na Long not Common defined [facility] Insulin NPH Insulin NPH Yes Na Long as Common (Human) (Human) directed Spiri t (Isophane) (Isophane) - C HI [facility] Prilosec Prilosec Yes Na Long not Comm on defined [facility] Omeprazole Omeprazole Yes Na Long 1 capsule Common 30 minutes Spirit before - [facility] morning [facility] Gabapentin Gabapentin Yes Na Long 1 capsule Common [facility] Prolia Prolia Yes Na Long as Common directed [facility] NovoLog NovoLog Yes Na Long as Common Flexpen [facility] Clonidine Clonidine Yes Na Long 1 tablet Common HCl HCl [facility] Senokot S Senokot S Yes Na Long 1 tablet Common in the Spirit evening as - [facility] needed [facility] Magnesium Magnesium Yes Na Long 1 tablet Common Chloride Chloride [facility] Doxycycline Doxycycline Yes Na Long 1 capsule Common Hyclate Hyclate [facility] Azithromyci Azithromyci Yes Na Long 2 tablets Common n n on the Spirit first day, - [facility] daily for Medical 4 days Center Flonase Flonase Yes Na Long 2 spray in Common each Spirit nostril [facility] Humalog Humalog Yes Na Long not Common defined Spirit - CHI [facility] Cetirizine Cetirizine Yes Na Long TAKE 1 Common HCl HCl TABLET BY Spirit MOUTH - CHI EVERY DAY [facility] predniSONE predniSONE No 1{table QD 5 [...] 0.5 MG 0.5 MG ts} 0.5 MG HumaLOG HumaLOG No HumaLOG PriLOSEC PriLOSEC No PriLOSEC Cetirizine Cetirizine No Cetirizine HCl 10 MG HCl 10 MG HCl 10 MG NovoLOG NovoLOG No NovoLOG FlexPen 100 FlexPen 100 FlexPen UNIT/ML UNIT/ML 100 UNIT/ML Fluconazole Fluconazole No 1{table Fluconazol 200 MG 200 MG t} e 200 MG Cat[facility]res Catapres No [facility] MiraLax - MiraLax - No MiraLax - Lactulose Lactulose No Lactulose Flonase 50 Flonase 50 No 2{spray QD Flonase 50 MCG/ACT MCG/ACT _in_eac MCG/ACT h_nostr il} ProAir HFA ProAir HFA No 1{puff_ 6xD ProAir HFA 108 (90 108 (90 as_need 108 (90 Base) Base) ed} Base) MCG/ACT MCG/ACT MCG/ACT Tamsulosin Tamsulosin No 1{capsu QD Tamsulosin HCl 0.4 MG HCl 0.4 MG le} HCl 0.4 MG Furosemide Furosemide No 2{table QD Furosemide 20 MG 20 MG ts} 20 MG Levothyroxi Levothyroxi No 2{table QD Levothyrox ne Sodium ne Sodium ts} ine Sodium 25 MCG 25 MCG 25 MCG Omeprazole Omeprazole No QD Omeprazole 40 MG 40 MG 40 MG Coreg 12.5 Coreg 12.5 No 1{table BID Coreg 12.5 MG MG t_with_ MG food} Calcitriol Calcitriol No Calcitriol 0.5 MCG 0.5 MCG 0.5 MCG Prolia 60 Prolia 60 No Prolia 60 MG/ML MG/ML MG/ML Prograf Prograf No Prograf Fluconazole Fluconazole No 1{table Fluconazol 200 MG 200 MG t} e 200 MG Cetirizine Cetirizine No Cetirizine HCl 10 MG HCl 10 MG HCl 10 MG Zocor Zocor No Zocor Senokot S Senokot S No 1{table QD Senokot S 8.6-50 MG 8.6-50 MG t_in_th 8.6-50 MG e_eveni ng_as_n eeded} megace megace No megace Norvasc Norvasc No Norvasc Insulin NPH Insulin NPH No Insulin (Human) (Human) NPH (Isophane) (Isophane) (Human) 100 UNIT/ML 100 UNIT/ML (Isophane) 100 UNIT/ML predniSONE predniSONE No 1{table QD predniSONE 5 MG 5 MG t} 5 MG Tradjenta Tradjenta No Tradjenta CellCept CellCept No CellCept Magnesium Magnesium No 1{table BID Magnesium Chloride 64 Chloride 64 t} Chloride MG MG 64 MG Zocor Zocor No Zocor Senna Senna No Senna Tums Tums No Tums Gabapentin Gabapentin No 1{capsu TID Gabapentin 100 MG 100 MG le} 100 MG Lactulose Lactulose No Lactulose Tacrolimus Tacrolimus No 2{table QD Tacrolimus 0.5 MG 0.5 MG ts} 0.5 MG amLODIPine amLODIPine No 1{table QD amLODIPine Besylate 10 Besylate 10 t} Besylate MG MG 10 MG Mycophenola Mycophenola No BID Mycophenol te Mofetil te Mofetil ate 500 MG 500 MG Mofetil 500 MG Tylenol # 3 Tylenol # 3 No Tylenol # 3 Simvastatin Simvastatin No 1{table QD Simvastati 20 MG 20 MG t_in_th n 20 MG e_eveni ng} cloNIDine cloNIDine No 1{table QD cloNIDine HCl 0.1 MG HCl 0.1 MG t} HCl 0.1 MG Mycophenola Mycophenola No BID Mycophenol te [...] Commen ts Source Name Name JUAN RAMON NICKERSONMagda 2020-09-24 Completed [facility] VACC[facility]ATION 00:00:00 [facility] JUAN RAMON NICKERSONMagda 2020-09-24 Completed [facility] MRNA VACCINATION 00:00:00 [facility] JUAN RAMON NICKERSONMagda 2020-09-24 Completed [facility] MRNA VACCINATION 00:00:00 [facility] JUAN RAMON NICKERSONMagda 2020-09-24 Completed [facility] MRNA VACCINATION 00:00:00 [facility] JUAN RAMON NICKERSONMagda 2020-09-24 Completed Method[facility] t MRNA VACCINATION 00:00:00 [facility] FluAD FluAD 2020-06-02 Completed [facility] - 09:[facility]:00 [facility] FluAD FluAD 2020-06-02 Completed [facility] - 09:31:00 [facility] FluAD FluAD 2020-06-02 Completed [facility] - 09:31:00 [facility] FluAD FluAD 2020-06-02 Completed [facility] - 09:31:00 [facility] FluAD FluAD 2020-06-02 Completed [facility] - 09:31:00 [facility] FluAD FluAD 2020-06-02 Completed [facility] - 09:31:00 [facility] FluAD FluAD 2020-06-02 Completed [facility] - 09:31:00 [facility] FluAD FluAD 2020-06-02 Completed [facility] - 09:31:00 [facility] FluAD FluAD 2020-06-02 Completed [facility] - 09:31:00 [facility] FluAD FluAD 2020-06-02 Completed [facility] - 09:31:00 [facility] FluAD FluAD 2020-06-02 Completed [facility] - 09:31:00 [facility] FluAD FluAD 2020-06-02 Completed [facility] - 09:31:00 [facility] FluAD FluAD 2020-06-02 Completed [facility] - 09:31:00 [facility] FLUZONE QUAD PF 2019-06-19 Completed [facility] 00:00:00 [facility] FLUZONE QUAD PF 2019-06-19 Completed [facility] 00:00:00 Hospital FLUZONE QUAD PF 2019-06-19 Completed [facility] 00:00:00 [facility] FLUZONE QUAD PF 2019-06-19 Completed [facility] 00:00:00 [facility] FLUZOLALIT QUAD PF 2019-06-19 Completed [facility] 00:00:00 [facility] DULCE MARIA QUAD 2017-05-10 Completed [facility] 00:00:00 [facility] DULCE MARIA QUAD 2017-05-10 Completed [facility] 00:00:00 [facility] DULCE MARIA QUAD 2017-05-10 Completed [facility] 00:00:00 [facility] DULCE MARIA QUAD 2017-05-10 Completed [facility] 00:00:00 [facility] DULCE MARIA QUAD 2017-05-10 Completed [facility] 00:00:00 [facility] Pneumococcal 2015-10-14 Completed [facility] Conjugate 13-Valent 00:00:00 [facility] clemente Pneumococcal 2015-10-14 Completed [facility] 2015-10-14 [facility] Con[facility] 2015-10-14 Completed [facility] Conjugate 13-Valent 00:00:00 [facility] clemente Pneumococcal 2015-10-14 Completed [facility] Conjugate 13[facility]:00[facility] Vital Signs Vital Name Observation Time Observation Value Comments Source height 2022-03-10 15:45:00 62 [in_i] [facility] weight 2022-03-10 15:45:00 128 [lb_av] [facility] temperature 2022-03-10 15:45:00 98.2 [degF] [facility] bmi 2022-03-10 15:45:00 23.41 kg/m2 [facility] oximetry 2022-03-10 15:45:00 96 % [facility] respiratory rate 2022-03-10 15:45:00 16 /min Comm on [facility] blood pressure 2022-03-10 15:45:00 134 mm[Hg] [facility] - systolic [facility] blood pressure 2022-03-10 15:45:00 61 mm[Hg] [facility] - diastolic [facility] height 2022-01-27 17:15:00 62 [in_i] [facility] weight 2022-01-27 17:15:00 125 [lb_av] [facility] temperature 2022-01-27 17:15:00 98.3 [degF] [facility] pirit [facility] bmi 2022-01-27 17:15:00 22.86 kg/m2 Common S [facility] oximetry 2022-01-27 17:15:00 97 % Common [facility] respiratory rate 2022-01-27 17:15:00 16 /min Comm on [facility] blood pressure 2022-01-27 17:15:00 150 mm[Hg] Common [facility] - systolic [facility] blood pressure 2022-01-27 17:15:00 69 mm[Hg] Common [facility] - diastolic [facility] height 2021-09-30 09:15:00 62 [in_i] Common [facility] weight 2021-09-30 09:15:00 118 [lb_av] [facility] temperature 2021-09-30 09:15:00 98.6 [degF] [facility] bmi 2021-09-30 09:15:00 21.58 kg/m2 [facility] oximetry 2021-09-30 09:15:00 99 % Common [facility] respiratory rate 2021-09-30 09:15:00 16 /min Comm on [facility] blood pressure 2021-09-30 09:15:00 132 mm[Hg] [facility] - systolic [facility] blood pressure 2021-09-30 09:15:00 68 mm[Hg] [facility] - diastolic [facility] height 2021-09-10 09:15:00 62 [in_i] [facility] weight 2021-09-10 09:15:00 118 [lb_av] [facility] temperature 2021-09-10 09:15:00 98.1 [degF] Common S pirit - [facility] bmi 2021-09-10 09:15:00 21.58 kg/m2 Common [facility] oximetry 2021-09-10 09:15:00 98 % [facility] respiratory rate 2021-09-10 09:15:00 16 /min Comm on [facility] blood pressure 2021-09-10 09:15:00 158 mm[Hg] Common [facility] - systolic [facility] blood pressure 2021-09-10 09:15:00 72 mm[Hg] Common [facility] - diastolic [facility] height 2021-08-20 09:45:00 62 [in_i] Common [facility] weight 2021-08-20 09:45:00 118 [lb_av] [facility] temperature 2021-08-20 09:45:00 98.2 [degF] Common [facility] bmi 2021-08-20 09:45:00 21.58 kg/m2 [facility] oximetry 2021-08-20 09:45:00 99 % [facility] respiratory rate 2021-08-20 09:45:00 18 /min [facility] on [facility] blood pressure 2021-08-20 09:45:00 149 mm[Hg] Common [facility] - systolic [facility] blood pressure 2021-08-20 09:45:00 67 mm[Hg] Common [facility] - diastolic [facility] height 2021-07-23 08:45:00 62 [in_i] Common [facility] weight 2021-07-23 08:45:00 120 [lb_av] Common [facility] temperature 2021-07-23 08:45:00 97.6 [degF] [facility] bmi 2021-07-23 08:45:00 21.95 kg/m2 [facility] oximetry 2021-07-23 08:45:00 99 % [facility] respiratory rate 2021-07-23 08:45:00 18 /min Comm on [facility] - [facility] blood pressure 2021-07-23 08:45:00 174 mm[facility]Hg[facility] systolic [facility] blood pressure 2021-07-23 08:45:00 70 mm[Hg] [facility] - diastolic [facility] height 2021-07-01 09:40:00 62 [in_i] [facility] weight 2021-07-01 09:40:00 119.8 [lb_av] [facility] temperature 2021-07-01 09:40:00 97.2 [degF] [facility] bmi 2021-07-01 09:40:00 21.91 kg/m2 [facility] oximetry 2021-07-01 09:40:00 96 % [facility] Body height 2022-08-19 18:43:00 154.9 cm [facility] Body weight 2022-08-19 18:43:00 57.607 kg [facility] BMI 2022-08-19 18:43:00 24.00 kg/m2 [facility] Body height 2022-01-13 19:19:00 154.9 cm [facility] Body weight 2022-01-13 19:19:00 57.607 kg [facility] BMI 2022-01-13 19:19:00 24.00 kg/m2 [facility] Systolic blood 2022-01-13 19:19:00 149 mm[Hg] Method [facility] pressure Diastolic blood 2022-01-13 19:19:00 68 mm[Hg] [facility] pressure Heart rate 2022-01-13 19:19:00 69 /min [facility] Body temperature 2022-01-13 19:19:00 36.44 [facility] Oxygen saturation in 2022-01-13 19:19:00 99 /min [facility] Arterial blood by Pulse oximetry Respiratory rate 2021-11-24 22:06:27 16 /min [facility] Systolic blood 2021-08-29 16:46:04 126 mm[Hg] [facility] pressure Diastolic blood 2021-08-29 16:46:04 67 mm[Hg] [facility] pressure Heart rate 2021-08-29 16:46:04 58 /min [facility] Body temperature 2021-08-29 16:46:04 36.56 [facility] Respiratory rate 2021-08-29 16:46:04 17 /min [facility] Oxygen saturation in 2021-08-29 16:46:04 98 /min [facility] Arterial blood by Pulse oximetry Body weight 2021-08-29 11:56:00 64.6 kg [facility] BMI 2021-08-29 11:56:00 26.91 kg/m2 [facility] Body height 2021-08-27 02:00:00 154.9 cm [facility] Procedures Procedure Date / Time Performing Clinician Source Performed [id number] 2022-04-30 00:00:00 ACHKA [facility] [id number] 2022-04-30 00:00:00 CHEZU [facility] [id number] 2022-04-30 00:00:00 CHEZU [facility] [id number] 2022-04-30 00:00:00 CHEZU [facility] [id number] 2022-04-28 00:00:00 ACHKA [facility] [id number] 2022-04-26 00:00:00 CHEZU [facility] [id number] 2022-04-26 00:00:00 CHEZU [facility] [id number] 2022-04-26 00:00:00 CHEZU [facility] [id number] 2022-04-26 00:00:00 ACHKA [facility] [id number] 2022-04-26 00:00:00 CHEZU [facility] [id number] 2022-04-26 00:00:00 CHEZU [facility] [id number] 2022-04-26 00:00:00 CHEZU [facility] [id number] 2022-04-26 00:00:00 CHECRISTIAN [facility] [id number] 2022-04-26 00:00:00 MARY [facility] [id number] 2022-04-24 00:00:00 JOEL [facility] [id number] 2022-04-23 00:00:00 [facility] CRYPTOCOCCAL ANTIGEN 2022-03-04 15:02:00 [facility] SCREEN COMPREHENSIVE METABOLIC 2022-03-04 15:02:[address] [facility] PANEL CBC WITH PLATELET AND 2022-03-04 15:02:00 [facility] DIFFERENTIAL CRYPTOCOCCAL ANTIGEN 2022-01-07 13:40:00 [facility] SCREEN CBC WITH PLATELET AND 2022-01-07 13:40:00 [facility] DIFFERENTIAL COMPREHENSIVE METABOLIC 2022-01-07 13:40:[address] [facility] PANEL POC GLUCOSE 2021-11-24 22:08:00 Al-Lahiq[facility] POC GLUCOSE 2021-11-24 16:03:00 [facility]iq, [facility] POC GLUCOSE 2021-11-24 11:10:00 Al-L[facility]iq, [facility] POC GLUCOSE 2021-11-24 01:29:00 Al-Lahiq, [facility] POC GLUCOSE 2021-11-23 22:05:00 Al-Lahiq, [facility] POC GLUCOSE 2021-11-23 19:21:00 Al-L[facility]iq, [facility] HEMODIALYSIS 2021-11-23 14:07:24 [facility]key [facility] Eric POC GLUCOSE 2021-11-23 11:09:00 Al-L[facility]iq, [facility] POC GLUCOSE 2021-11-23 01:15:00 Al-Lahiq, [facility] POC GLUCOSE 2021-11-22 21:35:00 Al-Lahiq, [facility] POC GLUCOSE 2021-11-22 16:46:00 Al-Lahiq, Joceline [facility] CT ABDOMEN PELVIS WO 2021-11-22 14:51:06 [facility] GLUCOSE 2021-11-22 11:19:00 Al-Lahiq, [facility] BASIC METABOLIC PANEL 2021-11-22 09:13[facility] 2021-11-22 09:13:00 Rickey D[facility] Eric POC GLUCOSE 2021-11-22 01:01:00 Al-Lahiq, [facility] POC GLUCOSE 2021-11-21 20:38:00 Al-Lahiq, [facility] POC GLUCOSE 2021-11-21 15:37:00 Al-Lahiq, [facility] POC GLUCOSE 2021-11-21 11:23:00 Al-Lahiq, [facility]oc[facility] BASIC METABOLIC PANEL 2021-11-21 08:50:00 Yo[facility] ESTIMATED GFR 2021-11-21 08:50:00 Rickey Diallo [facility] Eric POC GLUCOSE 2021-11-21 00:58:00 Al-Lahiq, [facility] POC GLUCOSE 2021-11-20 23:40:00 Al-Lahiq, [facility] POC GLUCOSE 2021-11-20 16:11:00 Al-Lahiq, [facility] XR ABDOMEN 2 VW AP W 2021-11-20 15:47:[facility] UPRIGHT AND/OR DECUBITUS Ali HEMODIALYSIS 2021-11-20 13:35:03 Rickey [facility] Eric POC GLUCOSE 2021-11-20 11:19:00 Al-Lahiq, [facility] POC GLUCOSE 2021-11-20 00:34:00 Al-Lahiq, [facility] POC GLUCOSE 2021-11-19 21:17:00 Al-Lahiq, [facility]eline [facility] HEMODIALYSIS 2021-11-19 13:24:26 Rickey D[facility]lo [facility] Eric POC GLUCOSE 2021-11-19 11:32:00 Al-Lahiq, Joceline Mcghee [facility] POC GLUCOSE 2021-11-19 00:55:00 Al-Lahiq, Joceline Mcghee [facility] POC GLUCOSE 2021-11-18 21:21:00 Al-Lahiq, Joceline Mcghee [facility] HEMODIALYSIS 2021-11-18 18:30:30 Rickey Diallo Ho spital Eric XR ABDOMEN 1 2021-11-18 17:05:00 Rickey Diallo Ho spital Eric POC GLUCOSE 2021-11-18 16:14:00 Al-Lahiq, Joceline Mcghee [facility] POC GLUCOSE 2021-11-18 10:46:00 Al-Lahiq, Joceline Mcghee [facility] PHOSPHORUS LEVEL 2021-11-18 09:34:00 Rickey Diallo H ospital Eric RENAL FUNCTION PANEL 2021-11-18 09:34:00 Rickey Diallo [facility] Eric ESTIMATED GFR 2021-11-18 09:34:00 Rickey Diallo Ho spital Eric POC GLUCOSE 2021-11-18 00:35:00 Al-Lahiq, Joceline Mcghee [facility] POC GLUCOSE 2021-11-17 21:11:00 Al-Lahiq, Joceline Michaud spital XR ABDOMEN 1 2021-11-17 17:06:00 Al-Lahiq, Joceline Mcghee [facility] HEMODIALYSIS 2021-11-17 15:55:09 Rickey Diallo [facility] Eric POC GLUCOSE 2021-11-17 12:38:00 Al-Lahiq, Joceline Mcghee [facility] spital [id number] TACROLIMUS LEVEL, 2021-11-17 08:41:00 Al-LahiqJoceline [facility] TROUGH COVID-19 QUALITATIVE 2021-11-17 04:32:00 [facility] RT-PCR CT ABDOMEN PELVIS WO 2021-11-17 02:43:00 [facility] CONTRAST URINE CULTURE 2021-11-17 01:33:00 [facility] HC COMPLETE BLD COUNT 2021-11-17 01:33:00 [facility] W/AUTO DIFF COMPREHENSIVE METABOLIC 2021-11-17 01:33:00 [facility] PANEL LACTIC ACID LEVEL, SEPSIS 2021-11-17 01:33:00 [facility] - NOW AND REPEAT 2X EVERY 3 HOURS URINALYSIS SCREEN AND 2021-11-17 01:33:00 [facility] MICROSCOPY, WITH REFLEX TO CULTURE ESTIMATED GFR 2021-11-17 01:33:00 [facility] T4, FREE 2021-11-17 01:33:00 [facility] THYROID STIMULATING 2021-11-17 01:33:00 [facility] HORMONE POC GLUCOSE 2021-10-27 22:38:00 Al-Lahiq, [facility] POC GLUCOSE 2021-10-27 16:01:00 Al-Lahiq, [facility] POC GLUCOSE 2021-10-27 13:35:00 Al-Lahiq, [facility] FK506 TACROLIMUS LEVEL, 2021-10-27 10:06:00 [facility] TROUGH Eric POC GLUCOSE 2021-10-27 01:17:00 Al-Lahiq, [facility] POC GLUCOSE 2021-10-26 21:02:00 Al-Lahiq, [facility] HEMODIALYSIS 2021-10-26 13:41:45 YoelRickey Ho spital Reic POC GLUCOSE 2021-10-26 09:44:00 Al-Lahiq, [facility] POC GLUCOSE 2021-10-26 00:59:00 Al-Lahiq, [facility] POC GLUCOSE 2021-10-25 20:38:00 Al-Lahiq, [facility] POC GLUCOSE 2021-10-25 16:30:00 Al-Lahiq, [facility] [id number] TACROLIMUS LEVEL, 2021-10-25 12:49:00 [facility] Eric POC GLUCOSE 2021-10-25 10:17:00 Al-Lahiq, Joceline Mcghee Ho sp[facility] XR CHEST 1 VW PORTABLE 2021-10-25 07:54:34 Al-Lahiq, [facility] POC GLUCOSE 2021-10-25 00:28:00 Al-Lahiq, Joceline [facility] POC GLUCOSE 2021-10-24 21:31:00 Al-Lahiq, Julya [facility] POC GLUCOSE 2021-10-24 17:55:00 Al-Lahiq, Joceline [facility] POC GLUCOSE 2021-10-24 11:02:00 Al-Lahiq, Joceline [facility] HC COMPLETE BLD COUNT 2021-10-24 09:44:00 Al-Lahiq, [facility] W/AUTO DIFF POC GLUCOSE 2021-10-23 22:41:00 Al-Lahiq, Joceline [facility] POC GLUCOSE 2021-10-23 21:49:00 Al-Lahiq, Joceline [facility] POC GLUCOSE 2021-10-23 17:23:00 Al-Lahiq, Joceline [facility] HEMODIALYSIS 2021-10-23 14:06:34 Rickey Diallo Ho spital Eric XR CHEST 1 VW PORTABLE 2021-10-23 11:13:49 Jessica Chacon [facility] POC GLUCOSE 2021-10-23 10:38:00 Al-LahiqJoceline Ho spital BASIC METABOLIC PANEL 2021-10-23 09:48:00 Rickey Diallo [facility] Eric PHOSPHORUS LEVEL 2021-10-23 09:48:00 Rickey Diallo H ospital Eric ESTIMATED GFR 2021-10-23 09:48:00 Rickey Diallo Ho spital Eric POC GLUCOSE 2021-10-23 01:04:00 Al-Lahiq, Joceline [facility] POC GLUCOSE 2021-10-22 22:07:00 Al-Lahiq, Joceline [facility] POC GLUCOSE 2021-10-22 21:27:00 Al-Lahiq, [facility] POC GLUCOSE 2021-10-22 17:00:00 Al-Lahiq, [facility] XR CHEST 1 VW PORTABLE 2021-10-22 13:49:01 Ines [facility] POC GLUCOSE 2021-10-22 11:12:00 Al-Lahiq, [facility] POC GLUCOSE 2021-10-22 01:14:00 Al-Lahiq, [facility] POC GLUCOSE 2021-10-21 16:47:00 Al-Lahiq, [facility] HEMODIALYSIS 2021-10-21 15:37:08 Rickey Diallo Ho spital Eric XR CHEST 1 VW PORTABLE 2021-10-21 11:17:07 Ines [facility] BASIC METABOLIC PANEL 2021-10-21 10:35:00 Yoel [facility] [id number] TACROLIMUS LEVEL, 2021-10-21 10:35:00 [facility] ESTIMATED GFR 2021-10-21 10:35:00 Rickey Diallo Ho spital Eric POC GLUCOSE 2021-10-21 10:28:00 Al-Lahiq, [facility] POC GLUCOSE 2021-10-21 01:17:00 Al-Lahiq, [facility] XR CHEST 1 VW PORTABLE 2021-10-20 22:44:00 Ines [facility] POC GLUCOSE 2021-10-20 21:45:00 Al-Lahiq, [facility] POC GLUCOSE 2021-10-20 16:33:00 Al-Lahiq, [facility] XR CHEST 1 VW PORTABLE 2021-10-20 13:15:00 Ines [facility] BASIC METABOLIC PANEL 2021-10-20 10:40:00 [facility] ESTIMATED GFR 2021-10-20 10:40:00 Rickey Diallo Ho spital Eric POC GLUCOSE 2021-10-20 10:04:00 Al-Lahiq, [facility] POC GLUCOSE 2021-10-20 00:56:00 Al-Lahiq, Joceline [facility] POC GLUCOSE 2021-10-19 23:32:00 Al-Lahiq, [facility] POC GLUCOSE 2021-10-19 16:47:00 Al-Lahiq, Joceline [facility] HEMODIALYSIS 2021-10-19 15:27:26 Rickey Diallo Ho spital Eric XR CHEST 1 VW PORTABLE 2021-10-19 10:46:35 Ines [facility] POC GLUCOSE 2021-10-19 10:36:00 Al-Lahiq, Joceline [facility] POC GLUCOSE 2021-10-19 01:10:00 Al-Lahiq, Joc[facility] POC GLUCOSE 2021-10-18 21:40:00 Al-LahiqJoceline [facility] XR CHEST 1 VW PORTABLE 2021-10-18 17:35:00 Ines [facility] POC GLUCOSE 2021-10-18 16:17:00 Al-LahiqJoceline [facility] POC GLUCOSE 2021-10-18 10:55:00 Al-Lahiq, Joceline [facility] XR CHEST 1 PORTABLE 2021-10-18 10:38:56 Ines [facility] POC GLUCOSE 2021-10-18 00:23:00 Al-LahiqJoceline [facility] POC GLUCOSE 2021-10-17 22:03:00 Al-LahiqJoceline [facility] US DUPLEX VENOUS UPPER 2021-10-17 20:00:00 Al-Lahiq, [facility] EXTREMITY RIGHT POC GLUCOSE 2021-10-17 16:31:00 Al-LahiqJoceline [facility] Ho [facility] XR CHEST 1 VW PORTABLE 2021-10-17 13:10:00 Ines [facility] POC GLUCOSE 2021-10-17 11:05:00 Al-LahiqJoceline [facility] POC GLUCOSE 2021-10-17 03:24:00 Al-Lahiq, [facility] POC GLUCOSE 2021-10-17 02:53:00 Al-Lahiq, Joceline Mcghee [facility] sp[facility] POC GLUCOSE 2021-10-17 02:17:00 Al-Lahiq, Joceline Mcghee [facility] POC GLUCOSE 2021-10-16 21:01:00 Al-Lahiq, Joceline Mcghee [facility] sp[facility] POC GLUCOSE 2021-10-16 19:25:00 Al-Lahiq, Joceline Mcghee [facility] sp[facility] HEMODIALYSIS 2021-10-16 17:25:53 Rickey Diallo Ho spital Eric POC GLUCOSE 2021-10-16 17:11:00 Al-Lahiq, Joceline Mcghee [facility] sp[facility] XR CHEST 1 VW PORTABLE 2021-10-16 13:25[facility] 2021-10-16 10:08:00 Al-Lahiq, Joceline Mcghee [facility] sp[facility] HC COMPLETE BLD COUNT 2021-10-16 10:01:00 [facility] IONIZED CALCIUM 2021-10-16 10:01:00 [facility] MAGNESIUM LEVEL 2021-10-16 10:01:00 [facility] PHOSPHORUS LEVEL 2021-10-16 10:01:00 [facility] COMPREHENSIVE METABOLIC 2021-10-16 10:01:00 [facility] Eric ESTIMATED GFR 2021-10-16 10:01:00 Rickey Diallo spital Eric POC GLUCOSE 2021-10-16 01:00:00 Al-Lahiq, Joceline Mcghee [facility] sp[facility] POC GLUCOSE 2021-10-15 21:29:00 Al-Lahiq, Joceline Mcghee Ho spital CHEST TUBE INSERTION 2021-10-15 19:29:15 [facility] 1 VW PORTABLE 2021-10-15 19:28:00 Ines [facility] XR CHEST 1 VW PORTABLE 2021-10-15 [facility]:53:[facility] ABDOMEN 1 VW 2021-10-15 17:35:00 Abdellatif, [facility] Ali POC GLUCOSE 2021-10-15 16:48:00 Al-LahiqJoceline Ho spital POC GLUCOSE 2021-10-15 09:59:00 Al-LahiqJoceline Ho spital BASIC METABOLIC PANEL 2021-10-15 09:57:00 BoadoKrysiza Micu Met [facility] HC COMPLETE BLD COUNT 2021-10-15 09:57:00 Boado, Glaiza Micu Met [facility] W/AUTO DIFF IONIZED CALCIUM 2021-10-15 09:57:00 [facility] MAGNESIUM LEVEL 2021-10-15 09:57:00 [facility] PHOSPHORUS LEVEL 2021-10-15 09:57:00 [facility] ESTIMATED GFR 2021-10-15 09:57:00 [facility] POC GLUCOSE 2021-10-15 08:54:00 Al-LahiqJoceline Ho spital POC GLUCOSE 2021-10-15 00:55:00 Al-LahiqJoceline Ho spital POC GLUCOSE 2021-10-14 21:03:00 Al-LahiqJoceline Ho spital TROPONIN T 2021-10-14 20:21:00 Rosa M Palm H ospital POC GLUCOSE 2021-10-14 16:55:00 Al-Lahiq, Joceline Mcghee Ho spital TROPONIN T 2021-10-14 16:41:00 Rosa M Palm H ospital ECG 12-LEAD 2021-10-14 16:26:41 Jorge Luis [facility] Yasser HEMODIALYSIS 2021-10-14 13:31:52 Rickey Diallo Ho spital Eric POC GLUCOSE 2021-10-14 12:57:00 Al-Lahiq, Joceline Duqueist Ho spital BASIC METABOLIC PANEL 2021-10-14 06:25:00 Boalma Krysmalaa [facility] Met [facility] HC COMPLETE BLD COUNT 2021-10-14 06:25:00 Boado, Glaiza Micu Met [facility] W/AUTO DIFF IONIZED CALCIUM 2021-10-14 06:25:00 Boado, [facility] MAGNESIUM LEVEL 2021-10-14 06:25:00 Boado, [facility] PHOSPHORUS LEVEL 2021-10-14 06:25:00 [facility], [facility] ESTIMATED GFR 2021-10-14 06:25:00 alma, [facility] POC GLUCOSE 2021-10-14 01:03:00 Al-LahiqJoceline Ho spital POC GLUCOSE 2021-10-13 21:40:00 Al-LahiqJoceline Ho spital HEMODIALYSIS 2021-10-13 21:08:11 [facility] Ali POC GLUCOSE 2021-10-13 16:19:00 Al-LahiqJoceline Ho spital POC GLUCOSE 2021-10-13 12:51:00 Al-LahiqJoceline Ho spital HC COMPLETE BLD COUNT 2021-10-13 11:15:00 Boalma Gigia Aamiru [facility]/AUTO DIFF BASIC METABOLIC PANEL 2021-10-13 11:15:00 [facility] MAGNESIUM LEVEL 2021-10-13 11:15:00 Boado, [facility] IONIZED CALCIUM 2021-10-13 11:15:00 alma, [facility] PHOSPHORUS LEVEL 2021-10-13 11:15:00 [facility] ESTIMATED GFR 2021-10-13 11:15:00 Boado, [facility] POC GLUCOSE 2021-10-13 04:16:00 Al-Joceline Sloan Ho spital HC COMPLETE BLD COUNT 2021-10-13 03:48:00 BoadoGigia [facility]/AUTO DIFF BASIC METABOLIC PANEL 2021-10-13 03:48:00 Boalma Gigia Micu [facility] MAGNESIUM LEVEL 2021-10-13 03:48:00 [facility], [facility] IONIZED CALCIUM 2021-10-13 03:48:00 [facility] PHOSPHORUS LEVEL 2021-10-13 03:48:00 [facility] ESTIMATED GFR 2021-10-13 03:48:00 [facility] ECG 12-LEAD 2021-10-13 02:30:52 Jorge Luis [facility] Yasser POC GLUCOSE 2021-10-13 01:54:00 Joceline Barton spital POC GLUCOSE 2021-10-13 01:52:00 Joceline Barton spiclemente [place] < 1 HOUR 2021-10-13 00:45:00 Az Guerrero ospital Manolo INSERTION, CATHETER, 2021-10-12 23:42:00 Az Guerrero [facility] DIALYSIS, PERITONEAL, Manolo LAPAROSCOPIC LAPAROSCOPIC PERITONEAL 2021-10-12 23:42:00 Az Guerrero [facility] RESECTION Manolo POC GLUCOSE 2021-10-12 21:37:00 Joceline Barton spital TYPE AND SCREEN 2021-10-12 20:38:00 Az Guerrero ospital Manolo HEPATITIS B SURFACE AB, 2021-10-12 17:50:00 Renetta Souleymane [facility] QUANTITATIVE Ali POTASSIUM LEVEL 2021-10-12 17:50:00 Brijesh Jorge ospital [place] HEPATITIS B SURFACE 2021-10-12 17:24:00 [facility] ANTIBODY Eric HEPATITIS B SURFACE 2021-10-12 17:24:00 [facility] ANTIGEN Eric HEPATITIS B CORE ANTIBODY 2021-10-12 17:24:00 [facility] TOTAL Eric POC GLUCOSE 2021-10-12 16:12:00 Joceline Barton spital [place] AN ELECTIVE 2021-10-12 11:55:00 Jhon Wesley spital ENDOTRACHEAL AIRWAY POC GLUCOSE 2021-10-12 11:01:00 Joceline Barton spital POC GLUCOSE 2021-10-12 00:43:00 Al-Lahiq, Joceline Jewish Ho spital POC GLUCOSE 2021-10-11 21:35:00 Al-Lahiq, [facility] POC GLUCOSE 2021-10-11 16:11:00 Al-Lahiq, [facility] POC GLUCOSE 2021-10-11 10:13:00 Al-Lahiq, [facility] POC GLUCOSE 2021-10-11 05:17:00 Al-Lahiq, [facility] POC GLUCOSE 2021-10-11 01:44:00 Al-Lahiq, [facility] POC GLUCOSE 2021-10-10 22:06:00 Al-Lahiq, Joceline Jewish Ho spital TTE COMPLETE, WO CONTRAST, 2021-10-10 21:03:00 Néstor Rosa M EugeneChi [facility] W DOPPLER ([id number]) POC GLUCOSE 2021-10-10 17:12:00 Al-Lahiq, Joceline Mcghee Ho spital POC GLUCOSE 2021-10-10 14:19:00 Al-Lahiq, Joceline Mcghee Ho spital [id number] TACROLIMUS LEVEL, 2021-10-10 10:35:00 Al-Lahiq, [facility] TROUGH BASIC METABOLIC PANEL 2021-10-10 10:35:00 Al-Lahiq, [facility] IRON LEVEL 2021-10-10 10:35:00 Rickey Diallo denicetal Eric FERRITIN LEVEL 2021-10-10 10:35:00 Rickey Diallo Ho spital Eric RENAL FUNCTION PANEL 2021-10-10 10:35:00 Rickey Diallo [facility] Eric ESTIMATED GFR 2021-10-10 10:35:00 Rickey Diallotal Eric POC GLUCOSE 2021-10-10 10:25:00 Al-Lahiq, Joceline Mcghee Ho spital POC GLUCOSE 2021-10-10 05:05:00 [facility] POC GLU[facility]SE 2021-10-10 04:13:00 [facility]iq, [facility] COVID-19 ANTI-SPIKE IGG 2021-10-10 04:07:00 [facility], [facility] ANTIBODY TITER COVID-19 SEROLOGY PATIENT 2021-10-10 04:07:00 AbundioLuther, [facility] SURVEILLANCE POC GLUCOSE 2021-10-10 02:54:00 Joceline Barton Ho spital POC GLUCOSE 2021-10-10 02:40:00 [facility] TROPONIN T 2021-10-09 23:39:00 Chacha Mishra spital LACTIC ACID LEVEL, SEPSIS 2021-10-09 23:39:00 Tad [facility] - NOW AND REPEAT 2X EVERY 3 HOURS POC GLUCOSE 2021-10-09 22:41:00 Joceline Barton spital TROPONIN T 2021-10-09 20:24:00 Chacha Mishra spital LACTIC ACID LEVEL, SEPSIS 2021-10-09 20:24:00 Chacha Mishra [facility] - NOW AND REPEAT 2X EVERY 3 HOURS COVID-19 QUALITATIVE 2021-10-09 19:24:00 [facility] URINALYS[facility] SCREEN AND 2021-10-09 19:23:00 [facility], WITH REFLEX TO CULTURE URINE CULTURE 2021-10-09 18:44:00 Chacha Mishra spital XR CHEST 1 VW PORTABLE 2021-10-09 17:00:00 Chacha Mishra [facility] HC COMPLETE BLD COUNT 2021-10-09 16:56:00 Chacha Mishra [facility] W/AUTO DIFF COMPREHENSIVE METABOLIC 2021-10-09 16:56:00 Tad [facility] PANEL PHOSPHORUS LEVEL 2021-10-09 16:56:00 Chacha Mishra H ospital MAGNESIUM LEVEL 2021-10-09 16:56:00 Chacha Mishra spital TROPONIN T 2021-10-09 16:56:00 Chacha Mishra spital B NATRIURETIC PEPTIDE 2021-10-09 16:56:00 Chacha Mishra [facility] LACTIC ACID LEVEL, SEPSIS 2021-10-09 16:56:00 Chacha Mishra [facility] - NOW AND REPEAT 2X EVERY 3 HOURS ESTIMATED GFR 2021-10-09 16:56:00 Chacha Mishra [facility] ECG ED PRELIMINARY 2021-10-09 16:45:52 Tad [facility] INTERPRETATION ECG 12-LEAD 2021-10-09 16:39:19 Chacha Mishra [facility] CBC WITH PLATELET AND 2021-09-23 17:01:00 [facility] DIFFERENTIAL COMPREHENSIVE METABOLIC 2021-09-23 17:01:00 [facility] PANEL HEMOGLOBIN A1C 2021-09-23 17:01:00 [facility] VITAMIN D 25 HYDROXY LEVEL 2021-09-23 17:01:00 [facility] MICROALBUMIN / CREATININE 2021-09-23 17:01:00 [facility] URINE RATIO LIPID PANEL 2021-09-23 17:01:00 [facility] T4, FREE 2021-09-23 17:01:00 [facility] THYROID STIMULATING 2021-09-23 17:01:00 [facility] HORMONE AMYLASE LEVEL 2021-09-23 17:01:00 [facility] LIPASE LEVEL 2021-09-23 17:01:00 [facility] POC GLUCOSE 2021-08-29 17:24:00 Magnolia Gonzalez [facility] BASIC METABOLIC PANEL 2021-08-29 12:26:00 Rickey Diallo [facility] Eric HC COMPLETE BLD COUNT 2021-08-29 12:26:00 Magnolia Gonzalez [facility] W/AUTO DIFF ESTIMATED GFR 2021-08-29 12:26:00 [facility] POC GLUCOSE 2021-08-29 11:35:00 Magnolia Gonzalez [facility] POC GLUCOSE 2021-08-29 02:49:00 [facility] POC GLUCOSE 2021-08-29 02:18:00 [facility] POC GLUCOSE 2021-08-28 22:16:[facility] 2021-08-28 17:32:00 [facility] XR CHEST 1 VW PORTABLE 2021-08-28 12:54:57 Yoel [facility] Eric POC GLUCOSE 2021-08-28 12:27:00 [facility] BASIC METABOLIC PANEL 2021-08-28 11:41:00 Yoel [facility] Eric HC COMPLETE BLD COUNT 2021-08-28 11:41:00 Carlos [facility] W/AUTO DIFF ESTIMATED GFR 2021-08-28 11:41:00 [facility] spital Eric POC GLUCOSE 2021-08-28 02:22:00 [facility] P[facility] 2021-08-27 22:07:00 [facility] POC [facility]SE 2021-08-27 16:58:00 [facility] POC [facility]SE 2021-08-27 12:17:00 Kayce Parks Ho spital COVID-19 SEROLOGY PATIENT 2021-08-27 12:09:00 [facility] Alex BASIC METABOLIC PANEL 2021-08-27 12:09:00 [facility] COMPLETE BLD COUNT 2021-08-27 12:09:00 [facility] W/AUTO DIFF [id number] TACROLIMUS LEVEL, 2021-08-27 12:09:00 [facility] Eric ESTIMATED GFR 2021-08-27 12:09:00 [facility] COVID-19 ANTI-SPIKE IGG 2021-08-27 12:09:00 [facility]TIB[facility] TITER Alex POC GLUCOSE 2021-08-27 01:47:00 Reynaldo Navarrete Ho spital POC GLUCOSE 2021-08-26 23:16:00 Kayce Parks Ho spital [id number] TACROLIMUS LEVEL, 2021-08-26 19:38:00 Cookie [facility] RANDOM COVID-19 QUALITATIVE 2021-08-26 19:38:00 Chacha Mishra [facility] RT-PCR POC GLUCOSE 2021-08-26 17:32:00 Reynaldo Navarrete Ho spital POC GLUCOSE 2021-08-26 14:45:00 Ellen Angulo spital LACTIC ACID LEVEL, SEPSIS 2021-08-26 10:08:00 [facility] NOW AND REPEAT 2X EVERY 3 HOURS COMPREHENSIVE METABOLIC 2021-08-26 10:08:00 Kayce Parks [facility] PANEL HC COMPLETE BLD COUNT 2021-08-26 10:08:00 [facility]/AUTO DIFF Latrondria Sanam ESTIMATED GFR 2021-08-26 10:08:00 Kayce Parks spital URINALYSIS SCREEN AND 2021-08-26 05:25:00 Tad [facility] MICROSCOPY, WITH REFLEX TO CULTURE COMPREHENSIVE METABOLIC 2021-08-26 04:50:00 Kayce Parks [facility] PANEL ESTIMATED GFR 2021-08-26 04:50:00 Kayce Parks Ho spital HC COMPLETE BLD COUNT 2021-08-26 03:52:00 Tad [facility] W/AUTO DIFF LACTIC ACID LEVEL, SEPSIS 2021-08-26 03:52:00 Chacha Mishra [facility] - NOW AND REPEAT 2X EVERY 3 HOURS MAGNESIUM LEVEL 2021-08-26 03:52:00 Chacha Mishra spital PHOSPHORUS LEVEL 2021-08-26 03:52:00 Chacha Mishra H ospital BLOOD CULTURE, AEROBIC & 2021-08-26 03:50:00 Chacha Mishra [facility] ANAEROBIC XR CHEST 2 VW 2021-08-26 02:36:00 Chacha Mishra spital URINE CULTURE 2021-08-26 02:18:[address] ABDOMEN PELVIS WO 2021-08-26 01:58:43 Chacha Mishra [facility] CONTRAST URINE CULTURE 2021-07-06 16:41:00 [facility] Ali HC COMPLETE BLD COUNT 2021-07-06 14:40:00 [facility] W/AUTO DIFF Ali COMPREHENSIVE METABOLIC 2021-07-06 14:40:00 [facility] PANEL Ali MAGNESIUM LEVEL 2021-07-06 14:40:00 [facility] Ali PHOSPHORUS LEVEL 2021-07-06 14:40:00 [facility] Ali URINALYSIS SCREEN AND 2021-07-06 14:40:00 [facility] MICROSCOPY, WITH REFLEX TO Ali CULTURE BK VIRUS BY PCR 2021-07-06 14:40:00 [facility] Ali PROTEIN, URINE, RANDOM 2021-07-06 14:40:00 [facility] Ali CREATININE LEVEL, URINE, 2021-07-06 14:40:00 [facility] RANDOM Ali PARATHYROID HORMONE 2021-07-06 14:40:00 [facility] Ali CYTOMEGALOVIRUS BY PCR 2021-07-06 14:40:00 [facility] Ali VITAMIN D 25 HYDROXY LEVEL 2021-07-06 14:40:00 [facility] Ali [id number] TACROLIMUS LEVEL, 2021-07-06 14:40:00 [facility] RANDOM Ali PROTHROMBIN TIME WITH INR 2021-07-06 14:40:00 [facility] Ali ESTIMATED GFR 2021-07-06 14:40:00 [facility] Ali DONOR SPECIFIC ANTIBODY 2021-07-06 14:40:00 [facility] Ali CRYPTOCOCCAL ANTIGEN 2021-07-06 14:40:00 [facility] SCREEN Ali HC COMPLETE BLD COUNT 2021-04-07 12:55:00 [facility] W/AUTO DIFF Ali COMPREHENSIVE METABOLIC 2021-04-07 12:55:00 [facility] PANEL Ali CREATININE LEVEL, URINE, 2021-04-07 12:55:00 [facility] RANDOM Ali [id number] TACROLIMUS LEVEL, 2021-04-07 12:55:00 [facility] RANDOM Ali MAGNESIUM LEVEL 2021-04-07 12:55:00 [facility] PHOSPHORUS LEVEL 2021-04-07 12:55:00 [facility] PROTEIN, URINE, RANDOM 2021-04-07 12:55:00 [facility] Ali URINALYSIS SCREEN AND 2021-04-07 12:55:00 [facility] MICROSCOPY, WITH REFLEX TO Ali CULTURE BK VIRUS BY PCR 2021-04-07 12:55:00 [facility] CYTOMEGALOVIRUS BY PCR 2021-04-07 12:55:00 [facility] Ali ESTIMATED GFR 2021-04-07 12:55:00 [facility] CRYPTOCOCCAL ANTIGEN 2021-04-07 12:55:00 [facility] SCREEN Ali URINE CULTURE 2021-04-07 12:55:00 [facility] HC COMPLETE BLD COUNT 2021-02-16 14:55:00 [facility] W/AUTO DIFF Ali COMPREHENSIVE METABOLIC 2021-02-16 14:55:00 [facility] PANEL Ali CREATININE LEVEL, URINE, 2021-02-16 14:55:00 [facility] RANDOM Ali [id number] TACROLIMUS LEVEL, 2021-02-16 14:55:00 [facility] RANDOM Ali MAGNESIUM LEVEL 2021-02-16 14:55:00 [facility] PHOSPHORUS LEVEL 2021-02-16 14:55:00 [facility] PROTEIN, URINE, RANDOM 2021-02-16 14:55:00 [facility] Ali URINALYSIS SCREEN AND 2021-02-16 14:55:00 [facility] MICROSCOPY, WITH REFLEX TO Ali CULTURE BK VIRUS BY PCR 2021-02-16 14:55:00 [facility] CYTOMEGALOVIRUS BY PCR 2021-02-16 14:55:00 [facility] Ali PARATHYROID HORMONE 2021-02-16 14:55:00 [facility] HEMOGLOBIN A1C 2021-02-16 14:55:00 [facility] LIPID PANEL 2021-02-16 14:55:00 [facility] VITAMIN D 25 HYDROXY LEVEL 2021-02-16 14:55:00 [facility] T4, FREE 2021-02-16 14:55:00 [facility] THYROID STIMULATING 2021-02-16 14:55:00 [facility] HORMONE ESTIMATED GFR 2021-02-16 14:55:00 [facility] CRYPTOCOCCAL ANTIGEN 2021-02-16 14:55:00 [facility] SCREEN Ali URINE CULTURE 2021-02-16 14:55:00 [facility] POC GLUCOSE 2021-01-27 17:31:00 Sharifa Hansen spital POC GLUCOSE 2021-01-27 17:10:00 Sharifa Hansen spital POC GLUCOSE 2021-01-27 16:46:00 Sharifa Hansen spital POC GLUCOSE 2021-01-27 16:06:00 Sharifa Hansen spital LIGATION OR BANDING, 2021-01-27 15:49:00 Sharifa Hansen [facility] FISTULA, AV POC GLUCOSE 2021-01-27 15:44:00 Sharifa Hansen spital WI AN PERIPHERAL BLOCK 2021-01-27 15:35:00 Paola Lobato [facility] PROCEDURE FOR PAIN E. POC GLUCOSE 2021-01-27 13:55:00 Sharifa Hansen spital POC PANEL 2021-01-27 12:59:00 Sharifa Hansen spital POC PANEL 2021-01-27 12:55:00 Sharifa Hansen Ho spital POC GLUCOSE 2021-01-27 12:38:00 Sharifa Hansen spital TTE COMPLETE, WO CONTRAST, 2021-01-22 21:12:11 Jus Martínez [facility] W DOPPLER ([id number]) Penelope COVID-19 QUALITATIVE 2021-01-21 19:35:00 Sharifa Hansen [facility] RT-PCR US DUPLEX HEMODIALYSIS AVG 2021-01-21 18:12:44 Sandra Cervantes [facility] AVF ACCESS BONE DENSITY 2021-01-19 16:17:47 [facility] HC COMPLETE BLD COUNT 2021-01-19 12:55:00 [facility] W/AUTO DIFF Ali COMPREHENSIVE METABOLIC 2021-01-19 12:55:00 [facility] PANEL Ali CREATININE LEVEL, URINE, 2021-01-19 12:55:00 [facility] RANDOM Ali [id number] TACROLIMUS LEVEL, 2021-01-19 12:55:00 [facility] RANDOM Ali MAGNESIUM LEVEL 2021-01-19 12:55:00 [facility] PHOSPHORUS LEVEL 2021-01-19 12:55:00 [facility] PROTEIN, URINE, RANDOM 2021-01-19 12:55:00 [facility] URINALYSIS SCREEN AND 2021-01-19 12:55:00 [facility] MICROSCOPY, WITH REFLEX TO Ali CULTURE BK VIRUS BY PCR 2021-01-19 12:55:00 [facility] CYTOMEGALOVIRUS BY PCR 2021-01-19 12:55:00 [facility] Ali THYROID STIMULATING 2021-01-19 12:55:00 [facility] HORMONE T4, FREE 2021-01-19 12:55:00 [facility] HEMOGLOBIN A1C 2021-01-19 12:55:00 [facility] PARATHYROID HORMONE 2021-01-19 12:55:00 [facility] LIPID PANEL 2021-01-19 12:55:00 [facility] VITAMIN D 25 HYDROXY LEVEL 2021-01-19 12:55:00 [facility] PROTHROMBIN TIME WITH INR 2021-01-19 12:55:00 [facility] ESTIMATED GFR 2021-01-19 12:55:00 [facility] DONOR SPECIFIC ANTIBODY 2021-01-19 12:55:00 [facility] Ali CRYPTOCOCCAL ANTIGEN 2021-01-19 12:55:00 [facility] SCREEN Ali URINE CULTURE 2021-01-19 12:55:00 [facility] HC COMPLETE BLD COUNT 2020-12-24 12:45:00 [facility] W/AUTO DIFF Ali ESTIMATED GFR 2020-12-24 12:45:00 [facility] AMYLASE LEVEL 2020-12-24 12:45:00 [facility] LIPASE LEVEL 2020-12-24 12:45:00 [facility] T4, FREE 2020-12-24 12:45:00 [facility] VITAMIN D 25 HYDROXY LEVEL 2020-12-24 12:45:00 [facility] THYROID STIMULATING 2020-12-24 12:45:00 [facility] HORMONE PARATHYROID HORMONE 2020-12-24 12:45:00 [facility] CRYPTOCOCCAL ANTIGEN 2020-12-24 12:45:00 [facility] SCREEN Ali URINE CULTURE 2020-12-24 12:45:00 [facility] CYTOMEGALOVIRUS BY PCR 2020-12-24 12:45:00 [facility] Ali HEMOGLOBIN A1C 2020-12-24 12:45:00 [facility] BK VIRUS BY PCR 2020-12-24 12:45:00 [facility] URINALYSIS SCREEN AND 2020-12-24 12:45:00 [facility] MICROSCOPY, WITH REFLEX TO Ali CULTURE PROTEIN, URINE, RANDOM 2020-12-24 12:45:00 [facility] Ali PHOSPHORUS LEVEL 2020-12-24 12:45:00 [facility] MAGNESIUM LEVEL 2020-12-24 12:45:00 [facility] [id number] TACROLIMUS LEVEL, 2020-12-24 12:45:00 [facility] RANDOM Ali CREATININE LEVEL, URINE, 2020-12-24 12:45:00 [facility] RANDOM Ali COMPREHENSIVE METABOLIC 2020-12-24 12:45:00 [facility] PANEL Ali CRYPTOCOCCAL ANTIGEN 2020-11-24 12:12:00 [facility] SCREEN Ali URINE CULTURE 2020-11-24 12:12:00 [facility] HC COMPLETE BLD COUNT 2020-11-24 12:12:00 [facility] W/AUTO DIFF Ali COMPREHENSIVE METABOLIC 2020-11-24 12:12:00 [facility] PANEL Ali CREATININE LEVEL, URINE, 2020-11-24 12:12:00 [facility] RANDOM Ali [id number] TACROLIMUS LEVEL, 2020-11-24 12:12:00 [facility] RANDOM Ali MAGNESIUM LEVEL 2020-11-24 12:12:00 [facility] PHOSPHORUS LEVEL 2020-11-24 12:12:00 [facility] PROTEIN, URINE, RANDOM 2020-11-24 12:12:00 [facility] Ali URINALYSIS SCREEN AND 2020-11-24 12:12:00 [facility] MICROSCOPY, WITH REFLEX TO Ali CULTURE BK VIRUS BY PCR 2020-11-24 12:12:00 [facility] CYTOMEGALOVIRUS BY PCR 2020-11-24 12:12:00 [facility] Ali ESTIMATED GFR 2020-11-24 12:12:00 [facility] HC COMPLETE BLD COUNT 2020-11-10 14:14:00 [facility] W/AUTO DIFF Ali COMPREHENSIVE METABOLIC 2020-11-10 14:14:00 [facility] PANEL Ali CREATININE LEVEL, URINE, 2020-11-10 14:14:00 [facility] RANDOM Ali [id number] TACROLIMUS LEVEL, 2020-11-10 14:14:00 [facility] RANDOM Ali MAGNESIUM LEVEL 2020-11-10 14:14:00 [facility] PHOSPHORUS LEVEL 2020-11-10 14:14:00 [facility] PROTEIN, URINE, RANDOM 2020-11-10 14:14:00 [facility] Ali URINALYSIS SCREEN AND 2020-11-10 14:14:00 [facility] MICROSCOPY, WITH REFLEX TO Ali CULTURE BK VIRUS BY PCR 2020-11-10 14:14:00 [facility] CYTOMEGALOVIRUS BY PCR 2020-11-10 14:14:00 [facility] Ali ESTIMATED GFR 2020-11-10 14:14:00 [facility] URINE CULTURE 2020-11-10 13:00:00 [facility] URINE CULTURE 2020-10-27 15:40:00 [facility] CRYPTOCOCCAL ANTIGEN 2020-10-27 12:55:00 [facility] SCREEN Ali CYTOMEGALOVIRUS BY PCR 2020-10-27 12:55:00 [facility] Ali BK VIRUS BY PCR 2020-10-27 12:55:00 [facility] URINALYSIS SCREEN AND 2020-10-27 12:55:00 [facility] MICROSCOPY, WITH REFLEX TO Ali CULTURE PROTEIN, URINE, RANDOM 2020-10-27 12:55:00 [facility] Ali PHOSPHORUS LEVEL 2020-10-27 12:55:00 [facility] MAGNESIUM LEVEL 2020-10-27 12:55:00 [facility] [id number] TACROLIMUS LEVEL, 2020-10-27 12:55:00 [facility] RANDOM Ali CREATININE LEVEL, URINE, 2020-10-27 12:55:00 [facility] RANDOM Ali AMYLASE LEVEL 2020-10-27 12:55:00 [facility] HC COMPLETE BLD COUNT 2020-10-27 12:55:00 [facility] W/AUTO DIFF COMPREHENSIVE METABOLIC 2020-10-27 12:55:00 [facility] PANEL HEMOGLOBIN A1C 2020-10-27 12:55:00 [facility] LIPASE LEVEL 2020-10-27 12:55:00 [facility] T4, FREE 2020-10-27 12:55:00 [facility] THYROID STIMULATING 2020-10-27 12:55:00 [facility] HORMONE VITAMIN D 25 HYDROXY LEVEL 2020-10-27 12:55:00 [facility] PARATHYROID HORMONE 2020-10-27 12:55:00 [facility] ESTIMATED GFR 2020-10-27 12:55:00 [facility] URINE CULTURE 2020-10-13 13:29:00 Maya Stark BASIC METABOLIC PANEL 2020-10-13 12:12:00 [facility] URINALYSIS SCREEN AND 2020-10-13 12:12[facility] WITH REFLEX TO Soun CULTURE ESTIMATED GFR 2020-10-13 12:12:00 Maya Stark CREATININE LEVEL, URINE, 2020-10-13 12:12:00 [facility] RANDOM Ali PROTEIN, URINE, RANDOM 2020-10-13 12:12:00 [facility] Ali HEPATIC FUNCTION PANEL 2020-10-13 12:12:00 [facility] URINE CULTURE 2020-09-30 14:40:00 [facility] COMPREHENSIVE METABOLIC 2020-09-30 14:40:00 [facility] PANEL Ali [id number] TACROLIMUS LEVEL, 2020-09-30 14:40:00 [facility] RANDOM Ali HC COMPLETE BLD COUNT 2020-09-30 14:40:00 [facility] W/AUTO DIFF Ali MAGNESIUM LEVEL 2020-09-30 14:40:00 [facility] PHOSPHORUS LEVEL 2020-09-30 14:40:00 [facility] PROTEIN, URINE, RANDOM 2020-09-30 14:40:00 [facility] Ali CREATININE LEVEL, URINE, 2020-09-30 14:40:00 [facility] RANDOM Ali URINALYSIS SCREEN AND 2020-09-30 14:40:00 [facility] MICROSCOPY, WITH REFLEX TO Ali CULTURE ESTIMATED GFR 2020-09-30 14:40:00 [facility] POC GLUCOSE 2020-09-24 17:32:00 Ritesh [facility] POC GLUCOSE 2020-09-24 13:38:00 Ritesh [facility] spital POC GLUCOSE 2020-09-24 12:17:00 [facility] spital [id number] TACROLIMUS LEVEL, 2020-09-24 12:00:00 [facility] RANDOM HC COMPLETE BLD COUNT 2020-09-24 12:00:00 [facility] W/AUTO DIFF SMEAR REVIEW 2020-09-24 12:00:00 Ana Laura Combs spital BASIC METABOLIC PANEL 2020-09-24 10:00:00 [facility] ESTIMATED GFR 2020-09-24 10:00:00 Ana Laura Combs spital POC GLUCOSE 2020-09-24 03:05:00 [facility] POC GLU[facility]SE 2020-09-23 23:10:00 [facility] Ana Laura Mcghee Ho spital POC GLUCOSE 2020-09-23 17:31:00 Fan, Ana Laura Mcghee spital POC GLUCOSE 2020-09-23 13:03:00 Fan, Ana Laura Michaud spital [id number] TACROLIMUS LEVEL, 2020-09-23 11:24:00 Fan, [facility] RANDOM B NATRIURETIC PEPTIDE 2020-09-23 11:24:00 Fan, [facility] PARATHYROID HORMONE 2020-09-23 11:24:00 Fan, [facility] BASIC METABOLIC PANEL 2020-09-23 10:00:00 Fan, [facility] ESTIMATED GFR 2020-09-23 10:00:00 Fan, Ana Laura Mcghee spital POC GLUCOSE 2020-09-23 03:12:00 Fan, Ana Laura Mcghee spital DURABLE MEDICAL EQUIPMENT 2020-09-23 02:30:45 [facility] POC GLUCOSE 2020-09-22 23:40:00 Fan, Ana Laura Mcghee spital BASIC METABOLIC PANEL 2020-09-22 21:08:00 Fan, [facility] HC COMPLETE BLD COUNT 2020-09-22 21:08:00 Fan, [facility] W/AUTO DIFF ESTIMATED GFR 2020-09-22 21:08:00 Fan, Ana Laura Mcghee Ho spital POC GLUCOSE 2020-09-22 17:41:00 Fan, Ana Laura Mcghee spital POC GLUCOSE 2020-09-22 14:09:00 Fan, Ana Laura Michaud spital [id number] TACROLIMUS LEVEL, 2020-09-22 11:39:00 Fan, [facility] RANDOM POC GLUCOSE 2020-09-22 03:09:00 Fan, Ana Laura Mcghee Ho spital POC GLUCOSE 2020-09-21 23:11:00 Fan, Ana Laura [facility] POC GLUCOSE 2020-09-21 18:37:00 Fan, Ana Laura [facility] POC GLUCOSE 2020-09-21 14:16:00 Fan, Ana Laura Mcghee spital [id number] TACROLIMUS LEVEL, 2020-09-21 11:42:00 Fan, [facility] RANDOM POC GLUCOSE 2020-09-21 03:07:00 [facility], [facility] POC GLUCOSE 2020-09-20 23:47:00 Fan, [facility] [facility] POC GLUCOSE 2020-09-20 17:44:00 Fan, [facility] POC GLUCOSE 2020-09-20 14:52:00 Fan, [facility] [facility] POC GLUCOSE 2020-09-20 13:27:00 Fan, Ana Laura [facility] [id number] TACROLIMUS LEVEL, 2020-09-20 11:30:00 Fan, [facility] RANDOM POC GLUCOSE 2020-09-20 03:32:00 Fan, Ana Laura [facility] POC GLUCOSE 2020-09-20 03:07:00 Fan, Ana Laura [facility] POC GLUCOSE 2020-09-19 23:19:00 Fan, [facility] [facility] POC GLUCOSE 2020-09-19 17:14:00 Fan, Ana Laura [facility] POC GLUCOSE 2020-09-19 13:49:00 Fan, Ana Laura [facility] CRYPTOCOCCAL ANTIGEN 2020-09-19 11:00:00 [facility] SCREEN [id number] TACROLIMUS LEVEL, 2020-09-19 [facility]IC METABOLIC PANEL 2020-09-19 [facility] 2020-09-19 11:00:00 [facility], [facility] POC GLUCOSE 2020-09-19 03:07:00 Fan, Ana Laura [facility] POC GLUCOSE 2020-09-18 23:33:00 Fan, Ana Laura [facility] CRYPTOCOCCAL ANTIGEN 2020-09-18 21:40:00 Home [facility] SCREEN POC GLUCOSE 2020-09-18 17:51:00 Fan, Ana Laura [facility] POC GLUCOSE 2020-09-18 14:34:00 Fan, Ana Laura [facility] [id number] TACROLIMUS LEVEL, 2020-09-18 12:00:00 [facility] RANDOM BASIC METABOLIC PANEL 2020-09-18 12:00:00 Ritesh [facility] HC COMPLETE BLD COUNT 2020-09-18 12:00:00 Ritesh [facility] W/AUTO DIFF ESTIMATED GFR 2020-09-18 12:00:00 Fan, [facility] [facility] POC GLUCOSE 2020-09-18 03:13:00 Fan, [place] [facility] POC GLUCOSE 2020-09-17 23:24:00 Fan, [place] [facility] ECG 12-LEAD 2020-09-17 23:02:11 Inder Bhat Ho spital POC GLUCOSE 2020-09-17 17:29:00 Fan, [facility] [facility] POC GLUCOSE 2020-09-17 13:31:00 Fan, Ana [facility] [id number] TACROLIMUS LEVEL, 2020-09-17 10:51:00 Chacho Grijalva [facility] RANDOM HC COMPLETE BLD COUNT 2020-09-17 10:51:00 Fan, [facility] W/AUTO DIFF BASIC METABOLIC PANEL 2020-09-17 10:51:00 Fan, [facility] ESTIMATED GFR 2020-09-17 10:51:00 Fan, Ana Laura [facility] POC GLUCOSE 2020-09-17 02:41:00 Fan, Ana Laura [facility] POC GLUCOSE 2020-09-16 23:25:00 Fan, Ana Laura [facility] POC GLUCOSE 2020-09-16 18:48:00 Fan, Ana Laura [facility] POC GLUCOSE 2020-09-16 13:44:00 Fan, Ana Laura Mcghee [facility] spital [id number] TACROLIMUS LEVEL, 2020-09-16 11:45:00 Chacho Grijalva [facility] RANDOM CBC WITH PLATELET AND 2020-09-16 11:45:00 Fan, [facility] DIFFERENTIAL BASIC METABOLIC PANEL 2020-09-16 11:45:00 Fan, [facility] ESTIMATED GFR 2020-09-16 11:45:00 Fan, [facility] MANUAL DIFFERENTIAL 2020-09-16 11:45:00 Fan, [facility] POC GLUCOSE 2020 23:44:00 Fan, [facility] ENTERIC BACTERIAL PANEL 2020 23:24:00 Fan, [facility] ENTERIC PARASITIC PANEL 2020 23:24:00 Fan, [facility] ENTERIC VIRAL PANEL 2020 23:24:00 [facility] URINE CULTURE 2020 22:32:00 Chel Gonzalez Ho spital POC GLUCOSE 2020 21:49:00 Fan, [facility] POC GLUCOSE 2020 17:57:00 Fan, [facility] URINALYSIS SCREEN AND 2020 17:32:00 Chel Gonzalez [facility] MICROSCOPY, WITH REFLEX TO CULTURE POC GLUCOSE 2020 16:07:00 Fan, [facility] POC GLUCOSE 2020 13:38:00 Fan, [facility] spital [id number] TACROLIMUS LEVEL, 2020 10:46:00 Valentine [facility] TROUGH CBC WITH PLATELET AND 2020 10:46:00 [facility] DIFFERENTIAL MANUAL DIFFERENTIAL 2020 10:46:00 [facility] BASIC METABOLIC PANEL 2020 10:00:00 [facility] ESTIMATED GFR 2020 10:00:00 Fan, [facility] POC GLUCOSE 2020 01:28:00 Fan, [facility] POC GLUCOSE 2020-09-14 23:23:00 Fan, [facility] POC GLUCOSE 2020-09-14 18:14:00 Fan, [facility] POC GLUCOSE 2020-09-14 14:58:00 Fan, [facility] spital [id number] TACROLIMUS LEVEL, 2020-09-14 10:08:00 Chacho Grijalva [facility] TROUGH CBC WITH PLATELET AND 2020-09-14 10:08:00 [facility] DIFFERENTIAL MANUAL DIFFERENTIAL 2020-09-14 10:08:00 [facility] BASIC METABOLIC PANEL 2020-09-14 10:00:00 [facility] ESTIMATED GFR 2020-09-14 10:00:00 Fan, [facility] POC GLUCOSE 2020-09-14 01:23:00 Fan, [facility] [facility] POC GLUCOSE 2020-09-14 00:38:00 Fan, [facility] [facility] POC GLUCOSE 2020-09-13 18:44:00 Fan, [facility] [facility] POC GLUCOSE 2020-09-13 14:18:00 Fan, [facility] [facility] [id number] TACROLIMUS LEVEL, 2020-09-13 10:40:00 Chacho Grijalva [facility] TROUGH HC COMPLETE BLD COUNT 2020-09-13 10:40:00 Fan, [facility] W/AUTO DIFF BASIC METABOLIC PANEL 2020-09-13 10:40:00 Fan, [facility] ESTIMATED GFR 2020-09-13 10:40:00 Fan, [place] [facility] POC GLUCOSE 2020-09-13 02:46:00 Fan, [facility] POC GLUCOSE 2020-09-12 23:41:00 Fan, [facility] BASIC METABOLIC PANEL 2020-09-12 19:00:00 Fan, [facility] HC COMPLETE BLD COUNT 2020-09-12 19:00:00 Fan, [facility] W/AUTO DIFF ESTIMATED GFR 2020-09-12 19:00:00 Fan, Ana [facility] POC GLUCOSE 2020-09-12 17:47:00 Fan, [facility] [facility] POC GLUCOSE 2020-09-12 13:46:00 Fan, [facility] spital [id number] TACROLIMUS LEVEL, 2020-09-12 10:51:00 Chacho Grijalva [facility] TROUGH POC GLUCOSE 2020-09-12 01:29:00 Fan, Ana Laura [facility] POC GLUCOSE 2020-09-12 00:03:00 Fan, [facility] POC GLUCOSE 2020-09-11 18:51:00 Fan, [facility] POC GLUCOSE 2020-09-11 14:09:00 Fan, [facility] spital [id number] TACROLIMUS LEVEL, 2020-09-11 10:22:[address] [facility] TROUGH CBC WITH PLATELET AND 2020-09-11 10:22:00 Fan, [facility] DIFFERENTIAL BASIC METABOLIC PANEL 2020-09-11 10:22:00 Fan, [facility] ESTIMATED GFR 2020-09-11 10:22:00 Fan, Ana Laura [facility] MANUAL DIFFERENTIAL 2020-09-11 10:22:00 Fan, [facility] POC GLUCOSE 2020-09-11 02:33:00 Fan, Ana Laura [facility] POC GLUCOSE 2020-09-10 22:54:00 Fan, [facility] [facility] POC GLUCOSE 2020-09-10 17:59:00 Fan, [place] [facility] POC GLUCOSE 2020-09-10 14:09:00 Fan, Ana Laura Michaud spital [id number] TACROLIMUS LEVEL, 2020-09-10 11:08:00 [facility] TROUGH Wade CBC WITH PLATELET AND 2020-09-10 11:08:00 Fan, [facility] DIFFERENTIAL BASIC METABOLIC PANEL 2020-09-10 11:08:00 Fan, [facility] ESTIMATED GFR 2020-09-10 11:08:00 Fan, Ana Laura [facility] MANUAL DIFFERENTIAL 2020-09-10 11:08:00 Fan, [facility] POC GLUCOSE 2020-09-10 02:29:00 Fan, Ana Laura [facility] POC GLUCOSE 2020-09-09 23:28:00 Fan, Ana Laura [facility] POC GLUCOSE 2020-09-09 18:13:00 Fan, Ana Laura [facility] POC GLUCOSE 2020-09-09 14:13:00 Fan, Ana Laura [facility] [id number] TACROLIMUS LEVEL, 2020-09-09 11:15:00 [facility] TROUGH [place] BASIC METABOLIC PANEL 2020-09-09 11:15:00 Fan, [facility] HC COMPLETE BLD COUNT 2020-09-09 11:15:00 Fan, [facility] W/AUTO DIFF ESTIMATED GFR 2020-09-09 11:15:00 Fan, Ana Laura [facility] POC GLUCOSE 2020-09-09 02:57:00 Fan, Ana Laura [facility] POC GLUCOSE 2020-09-08 21:53:00 Fan, Ana Laura Michaud spital COVID-19 QUALITATIVE 2020-09-08 18:22[facility] 2020-09-08 17:16:00 Fan, Ana Laura Mcghee [facility] spital [id number] TACROLIMUS LEVEL, 2020-09-08 14:43:00 [facility] TROUGH [place] BASIC METABOLIC PANEL 2020-09-08 14:43:00 Fan, [facility] HC COMPLETE BLD COUNT 2020-09-08 14:43:00 Fan [facility] W/AUTO DIFF OSMOLALITY, SERUM 2020-09-08 14:43:00 Edwin [facility] [place] ESTIMATED GFR 2020-09-08 14:43:00 [facility] 2020-09-08 14:05:00 Fan, Ana Laura Mcghee [facility] POC GLUCOSE 2020-09-07 22:14:00 Fan, Ana Laura Mcghee [facility] POC GLUCOSE 2020-09-07 17:03:00 Fan, Ana Laura [facility] POC GLUCOSE 2020-09-07 13:18:00 Fan, Ana Laura Mcghee [facility] spital [id number] TACROLIMUS LEVEL, 2020-09-07 10:30:00 [facility] TROUGH [place] BASIC METABOLIC PANEL 2020-09-07 10:30:00 Fan [facility] HC COMPLETE BLD COUNT 2020-09-07 10:30:00 Fan [facility] W/AUTO DIFF ESTIMATED GFR 2020-09-07 10:30:00 Fan, Ana Laura [facility] POC GLUCOSE 2020-09-07 02:57:00 Fan, Ana Laura Mcghee Ho spital US RENAL TRANSPLANT 2020-09-07 02:01:00 Chacho Grijalva [facility] DOPPLER POC GLUCOSE 2020-09-06 22:59:00 Fan, Ana Laura [facility] POC GLUCOSE 2020-09-06 17:16:00 Fan, Ana Laura [facility] POC GLUCOSE 2020-09-06 13:35:00 Fan, Ana Laura Mcghee [facility] spital [id number] TACROLIMUS LEVEL, 2020-09-06 12:25:00 [facility] TROUGH [place] HC COMPLETE BLD COUNT 2020-09-06 12:25:00 Fan [facility] W/AUTO DIFF BASIC METABOLIC PANEL 2020-09-06 10:00:00 [facility] ESTIMATED GFR 2020-09-06 10:00:00 FanAna Laura spital POC GLUCOSE 2020-09-05 23:25:00 Fan, Ana Laura Mcghee Ho sp[facility] MRI BRAIN WO CONTRAST 2020-09-05 18:40:00 Fan [facility] POC GLUCOSE 2020-09-05 17:57:00 FanAna Laura Ho spital [address] CHEST WO CONTRAST 2020-09-05 16:38:12 Home [facility] POC GLUCOSE 2020-09-05 13:59:00 [facility] CRYPTOCOCCAL ANTIGEN 2020-09-05 11:10:00 Home [facility] SCREEN BASIC METABOLIC PANEL 2020-09-05 11:10:00 Ritesh [facility] [id number] TACROLIMUS LEVEL, 2020-09-05 11:10:00 [facility] TROUGH [place] ESTIMATED GFR 2020-09-05 11:10:00 Chacho Grijalva [facility] POC GLUCOSE 2020-09-05 02:10:00 FanAna Laura Ho spital POC GLUCOSE 2020-09-04 22:39:00 Fan, Ana Laura [facility] POC GLUCOSE 2020-09-04 20:07:00 Fan, Ana Laura [facility] POC GLUCOSE 2020-09-04 18:58:00 Fan, Ana Laura [facility] POC GLUCOSE 2020-09-04 14:09:00 [facility] CRYPTOCOCCAL ANTIGEN 2020-09-04 12:00:00 Adrian Cornejo [facility] SCREEN BASIC METABOLIC PANEL 2020-09-04 12:00:00 Ritesh [facility] VANCOMYCIN LEVEL, RANDOM 2020-09-04 12:00:00 Ritesh [facility] HC COMPLETE BLD COUNT 2020-09-04 12:00:00 Ritesh [facility] W/AUTO DIFF [id number] TACROLIMUS LEVEL, 2020-09-04 12:00:00 Kajal [facility] TROUGH Wade HIV AG/AB COMBINATION 2020-09-04 12:00:00 Inder Bhat [facility] CD 4 SUBSET 2020-09-04 12:00:00 Inder Bhat spital ESTIMATED GFR 2020-09-04 12:00:00 Chacho Grijalva [facility] POC GLUCOSE 2020-09-04 01:54:00 Fan, [facility] 2020-09-03 23:25:00 Fan, [facility] POC GLUCOSE 2020-09-03 17:53:00 FanAna Laura spital XR CHEST 1 VW PORTABLE 2020-09-03 14:50:00 Harley Simmons [facility] POC GLUCOSE 2020-09-03 14:05:00 Fan, [facility] HC COMPLETE BLD COUNT 2020-09-03 11:47:00 Ritesh [facility] W/AUTO DIFF BASIC METABOLIC PANEL 2020-09-03 [facility]:47[facility] 2020-09-03 11:47:00 Fan, [facility] AEROBIC CULTURE 2020-09-03 05:54:00 Rodrigue Wynn denicetal Rishi FUNGUS SMEAR 2020-09-03 05:54:00 [facility] 2020-09-03 05:54:00 [facility] FUNGUS CULTURE 2020-09-03 05:54:00 Fan [facility] spital LEGIONELLA URINARY ANTIGEN 2020-09-03 04:45:00 Inder Bhat [facility] STREPTOCOCCUS PNEUMONIAE 2020-09-03 04:45:00 Inder Bhat [facility] URINARY ANTIGEN POC GLUCOSE 2020-09-03 03:06:00 FanAna Laura spital POC GLUCOSE 2020-09-02 23:23:00 Fan [facility] Ho spital VARICELLA ZOSTER BY PCR 2020-09-02 [facility]:47[facility] LUM[facility]UNCT[facility] 2020-09-02 22:17:00 Home [facility] CSF CULTURE 2020-09-02 22:15:00 Inder hBat spital FUNGUS CULTURE 2020-09-02 22:15:00 Inder Bhat spital CRYPTOCOCCAL ANTIGEN 2020-09-02 22:15:00 Inder Bhat [facility] SCREEN GRAM STAIN 2020-09-02 22:15:00 Inder Bhat spital CYTOMEGALOVIRUS BY PCR 2020-09-02 22:15[facility]00 [facility] CELL [facility] WITH 2020-09-02 22:15:00 [facility] DIFFERENTIAL PROTEIN, CSF 2020-09-02 22:15:00 Inder Bhat spital GLUCOSE LEVEL, CSF 2020-09-02 22:15:00 [facility] VDRL, CSF 2020-09-02 22:15:00 Inder Bhat spital VARICELLA ZOSTER BY PCR 2020-09-02 22:15:[address] [facility] [employer] CULTURE 2020-09-02 21:15:00 Inder Bhat spital POC GLUCOSE 2020-09-02 21:13:[address] HEAD WO CONTRAST 2020-09-02 20:11:07 Ritesh [facility] POC GLUCOSE 2020-09-02 18:17:00 FanAna Laura spital POC GLUCOSE 2020-09-02 13:39:00 FanAna Laura spital BASIC METABOLIC PANEL 2020-09-02 09:58:[facility] 2020-09-02 09:58:00 FanAna Laura spital CBC WITH PLATELET AND 2020-09-02 09:00:00 Ritesh [facility] DIFFERENTIAL POC GLUCOSE 2020-09-02 02:38:00 FanAna Laura spital POC GLUCOSE 2020-09-01 23:06:00 [facility] POC GLUCOSE 2020-09-01 18:27:00 RiteshAna Laura spital POC GLUCOSE 2020-09-01 14:01:00 [facility] [id number] TOTAL 2020-09-01 09:05:00 [id number] TACROLIMUS LEVEL, 2020-09-01 09:05:00 Ritesh [facility] RANDOM HC COMPLETE BLD COUNT 2020-09-01 09:05:00 [facility]h [facility] W/AUTO DIFF COMPREHENSIVE METABOLIC 2020-09-01 09:05:00 [facility] PANEL ESTIMATED GFR 2020-09-01 09:05:00 [facility] Care Planned Activity Planned Date Details Comments Source Future Scheduled 2022-09-28 Hepatitis C screening [facility] Test 09:37:02 (procedure) [code = 387370428] Future Scheduled 2022-09-28 SHINGLES VACCINES (1 Met [facility] Test 09:37:02 of 2) [code = SHINGLES VACCINES (1 of 2)] Future Scheduled 2022-09-28 Screening for [facility] Test 09:37:02 malignant neoplasm of cervix (procedure) [code = 055155301] Future Scheduled 2022-09-28 COLONOSCOPY SCREENING [facility] Test 09:37:02 [code = COLONOSCOPY SCREENING] Future Scheduled 2022-09-28 65+ PNEUMOCOCCAL [facility] Test 09:37:02 VACCINE (2 - PPSV23 if available, else PCV20) [code = 65+ PNEUMOCOCCAL VACCINE (2 - PPSV23 if available, else PCV20)] Future Scheduled 2022-09-28 BREAST CANCER [facility] Test 09:37:02 SCREENING [code = BREAST CANCER SCREENING] Future Scheduled 2022-09-28 COVID-19 VACCINE (3 - [facility] Test 09:37:02 Moderna risk series) [code = COVID-19 VACCINE (3 - Moderna risk series)] Future Scheduled 2022-09-28 DIABETES: RETINAL EYE [facility] Test 09:37:02 EXAM [code = DIABETES: RETINAL EYE EXAM] Future Scheduled 2022-09-28 INFLUENZA VACCINE Method [facility] Test 09:37:02 [code = INFLUENZA VACCINE] Future Scheduled 2022-09-28 DIABETIC FOOT EXAM [facility] Test 09:37:02 [code = DIABETIC FOOT EXAM] Future Scheduled 2022-05-15 HEPATITIS B VACCINES Met [facility] Test 18:47:46 (1 of 3 - 3-dose series) [code = HEPATITIS B VACCINES (1 of 3 - 3-dose series)] Future Scheduled 2022-05-15 Hepatitis C screening [facility] Test 18:47:46 (procedure) [code = 672515971] Future Scheduled 2022-05-15 SHINGLES VACCINES (1 Met [facility] Test 18:47:46 of 2) [code = SHINGLES VACCINES (1 of 2)] Future Scheduled 2022-05-15 Screening for [facility] Test 18:47:46 malignant neoplasm of cervix (procedure) [code = 455805695] Future Scheduled 2022-05-15 COLONOSCOPY SCREENING [facility] Test 18:47:46 [code = COLONOSCOPY SCREENING] Future Scheduled 2022-05-15 Pneumococcal Vaccine: [facility] Test 18:47:46 Pediatrics (0 to 5 Years) and At-Risk Patients (6 to 64 Years) (2 - PPSV23 if available, else PCV20) [code = Pneumococcal Vaccine: Pediatrics (0 to 5 Years) and At-Risk Patients (6 to 64 Years) (2 - PPSV23 if available, else PCV20)] Future Scheduled 2022-05-15 BREAST CANCER [facility] Test 18:47:46 SCREENING [code = BREAST CANCER SCREENING] Future Scheduled 2022-05-15 COVID-19 VACCINE (3 - [facility] Test 18:47:46 Moderna risk series) [code = COVID-19 VACCINE (3 - Moderna risk series)] Future Scheduled 2022-05-15 DIABETES: RETINAL EYE [facility] Test 18:47:46 EXAM [code = DIABETES: RETINAL EYE EXAM] Future Scheduled 2022-05-15 INFLUENZA VACCINE [facility] Test 18:47:46 [code = INFLUENZA VACCINE] Future Scheduled 2022-05-15 DIABETIC FOOT EXAM [facility] Test 18:47:46 [code = DIABETIC FOOT EXAM] Future Scheduled 2022-03-31 HEPATITIS B VACCINES Met [facility] Test 11:33:47 (1 of 3 - 3-dose series) [code = HEPATITIS B VACCINES (1 of 3 - 3-dose series)] Future Scheduled 2022-03-31 Hepatitis C screening [facility] Test 11:33:47 (procedure) [code = 021131571] Future Scheduled 2022-03-31 SHINGLES VACCINES (1 Met [facility] Test 11:33:47 of 2) [code = SHINGLES VACCINES (1 of 2)] Future Scheduled 2022-03-31 Screening for [facility] Test 11:33:47 malignant neoplasm of cervix (procedure) [code = 821636713] Future Scheduled 2022-03-31 COLONOSCOPY SCREENING [facility] Test 11:33:47 [code = COLONOSCOPY SCREENING] Future Scheduled 2022-03-31 Pneumococcal Vaccine: [facility] Test 11:33:47 Pediatrics (0 to 5 Years) and At-Risk Patients (6 to 64 Years) (2 - PPSV23 or PCV20) [code = Pneumococcal Vaccine: Pediatrics (0 to 5 Years) and At-Risk Patients (6 to 64 Years) (2 - PPSV23 or PCV20)] Future Scheduled 2022-03-31 BREAST CANCER [facility] Test 11:33:47 SCREENING [code = BREAST CANCER SCREENING] Future Scheduled 2022-03-31 COVID-19 VACCINE (3 - [facility] Test 11:33:47 Moderna risk series) [code = COVID-19 VACCINE (3 - Moderna risk series)] Future Scheduled 2022-03-31 DIABETES: RETINAL EYE [facility] Test 11:33:47 EXAM [code = DIABETES: RETINAL EYE EXAM] Future Scheduled 2022-03-31 INFLUENZA VACCINE Method [facility] Hospital Test 11:33:47 [code = INFLUENZA VACCINE] Future Scheduled 2022-03-31 DIABETIC FOOT EXAM [facility] Test 11:33:47 [code = DIABETIC FOOT EXAM] Future Scheduled 2022-03-31 HEPATITIS B VACCINES Met [facility] Test 11:33:47 (1 of 3 - 3-dose series) [code = HEPATITIS B VACCINES (1 of 3 - 3-dose series)] Future Scheduled 2022-03-31 Hepatitis C screening [facility] Test 11:33:47 (procedure) [code = 596694759] Future Scheduled 2022-03-31 SHINGLES VACCINES (1 Met [facility] Test 11:33:47 of 2) [code = SHINGLES VACCINES (1 of 2)] Future Scheduled 2022-03-31 Screening for [facility] Test 11:33:47 malignant neoplasm of cervix (procedure) [code = 713977804] Future Scheduled 2022-03-31 COLONOSCOPY SCREENING [facility] Test 11:33:47 [code = COLONOSCOPY SCREENING] Future Scheduled 2022-03-31 Pneumococcal Vaccine: [facility] Test 11:33:47 Pediatrics (0 to 5 Years) and At-Risk Patients (6 to 64 Years) (2 - PPSV23 or PCV20) [code = Pneumococcal Vaccine: Pediatrics (0 to 5 Years) and At-Risk Patients (6 to 64 Years) (2 - PPSV23 or PCV20)] Future Scheduled 2022-03-31 BREAST CANCER [facility] Test 11:33:47 SCREENING [code = BREAST CANCER SCREENING] Future Scheduled 2022-03-31 COVID-19 VACCINE (3 - [facility] Test 11:33:47 Moderna risk series) [code = COVID-19 VACCINE (3 - Moderna risk series)] Future Scheduled 2022-03-31 DIABETES: RETINAL EYE [facility] Test 11:33:47 EXAM [code = DIABETES: RETINAL EYE EXAM] Future Scheduled 2022-03-31 INFLUENZA VACCINE [facility] Test 11:33:47 [code = INFLUENZA VACCINE] Future Scheduled 2022-03-31 DIABETIC FOOT EXAM [facility] Test 11:33:47 [code = DIABETIC FOOT EXAM] Future Scheduled 2021-08-31 Hepatitis C screening [facility] Test 11:36:52 (procedure) [code = 845000190] Future Scheduled 2021-08-31 Screening for [facility] Test 11:36:52 malignant neoplasm of cervix (procedure) [code = 727467058] Future Scheduled 2021-08-31 COLONOSCOPY SCREENING [facility] Test 11:36:52 [code = COLONOSCOPY SCREENING] Future Scheduled 2021-08-31 SHINGLES VACCINES (#1) [facility] Test 11:36:52 [code = SHINGLES VACCINES (#1)] Future Scheduled 2021-08-31 BREAST CANCER [facility] Test 11:36:52 SCREENING [code = BREAST CANCER SCREENING] Future Scheduled 2021-08-31 DIABETIC FOOT EXAM [facility] Test 11:36:52 [code = DIABETIC FOOT EXAM] Future Scheduled 2021-08-31 INFLUENZA VACCINE Method [facility] Hospital Test 11:36:52 [code = INFLUENZA VACCINE] Future Scheduled 2021-08-31 COVID-19 VACCINE (3 - Me [facility] Test 11:36:52 Moderna risk 4-dose series) [code = COVID-19 VACCINE (3 - Moderna risk 4-dose series)] Future Scheduled 2021-08-31 DIABETES: RETINAL EYE [facility] Test 11:36:52 EXAM [code = DIABETES: RETINAL EYE EXAM] Encounters Start End Encounter Admission Attending Care Care Encounter Source Date/Time Date/Time Type Type Clinicians Facility Department ID 2021-12-25 Inpatient JOSE LUIS KanCL DAYS [id number] [facility] 08:00:00 Az 38 [facility] 2021-10-01 Outpatient Long, Na STLMLC STLMLC [id number] 2 Common 07:26:00 [facility] 2021-09-28 Outpatient Long, Na STLMLC STLMLC [id number] 2 Common 08:20:00 [facility] 2021-08-26 Outpatient Long, Na STLMLC STLMLC [id number] 2 Common 12:43:39 [id number] [facility] 2021-08-26 Outpatient Long, Na STLMLC STLMLC [id number] 2 Common 12:21:24 [id number] [facility] 2021-08-26 Outpatient Long, Na STLMLC STLMLC [id number] 2 Common 12:20:42 [id number] [facility] 2021-08-26 Outpatient Long, Na STLMLC STLMLC [id number] 2 Common 12:17:55 [id number] [facility] 2021-08-26 Outpatient Long, Na STLMLC STLMLC [id number] 2 Common 12:17:20 [id number] [facility] 2021-08-26 Outpatient Long, Na STLMLC STLMLC [id number] 2 Common 11:57:36 [id number] [facility] 2021-08-26 Outpatient Long, Na STLMLC STLMLC [id number] 2 Common 11:56:47 [id number] [facility] 2021-08-26 Outpatient Long, Na STLMLC STLMLC [id number] 2 Common 11:31:59 [id number] [facility] 2021-08-26 Outpatient Long, Na STLMLC STLMLC [id number] 2 Common 11:31:40 [id number] [facility] 2021-08-26 Outpatient Long, Na STLMLC STLMLC [id number] 2 Common 11:27:44 [id number] [facility] 2021-08-26 Outpatient Long, Na STLMLC STLMLC [id number] 2 Common 11:27:14 [id number] [facility] 2021-08-26 Outpatient Long, Na STLMLC STLMLC [id number] 2 Common 11:22:57 [id number] [facility] 2021-08-26 Outpatient Long, Na STLMLC STLMLC [id number] 2 Common 11:13:26 [id number] [facility] 2022-08-13 2022-08-13 Telephone Misty, 1.2.840.1 [id number] Methodi 00:00:00 00:00:[address] 3.430.2.7 Hospit a .3.887461 l .8 2022-05-20 2022-05-20 ([place]) Nurse STLMLC STLMLC [id number] Common 00:00:00 00:00:00 Visit [facility] 2022-04-23 2022-04-30 [facility]01 G001 [id number] [facility] 14:11:00 16:35:00 an, 78 Clear [facility] 2022-03-25 2022-03-25 OFFICE STLMLC STLMLC [id number] Co mmon 00:00:00 00:00:00 VISIT EST Spir it PT LEVEL 3 [facility] 2022-03-10 2022-03-10 OFFICE [facility] [id number] Co mmon 00:00:00 00:00:00 VISIT Sudeep LYNN PT - CHI LEVEL 2 [facility] 2022-03-08 2022-03-08 Telephone Ray, 1.2.840.1 [id number] 2100 [id number] Methodi 00:00:00 00:00:[address] 3.430.2.7 Hospit a .3.817846 l .8 2022-03-08 2022-03-08 Telephone Ray, 1.2.840.1 [id number] 2099 [id number] Methodi 00:00:00 00:00:[address] 3.430.2.7 Hospit a .3.189454 l .8 2022-03-03 2022-03-03 Documentat Readeaux, 1.2.840.1 [id number] 2 [id number] Methodi 00:00:00 00:00:[address]063.1.[address] 3.430.2.7 Hospit a .3.679364 l .8 2022-03-03 2022-03-03 Orders Readeaux, 1.2.840.1 [id number] 2099 [id number] Methodi 00:00:00 00:00:00 Only Billie 37137.1.[address] 3.430.2.7 Hospit a .3.198786 l .8 2022-03-03 2022-03-03 Documentat Readeaux, 1.2.840.1 [id number] 2 [id number] Methodi 00:00:00 00:00:[address] 83335.1.[address] 3.430.2.7 Hospit a .3.465959 l .8 2022-03-03 2022-03-03 Orders Readeaux, 1.2.840.1 [id number] 2100 [id number] Methodi 00:00:00 00:00:00 Only Billie 59181.1.[address] 3.430.2.7 Hospit a .3.185389 l .8 2022-02-10 2022-02-10 OL DIG E/M STLMLC STLMLC [id number] Common 00:00:00 00:00:00 [facility] 11-20 Spir it MIN - [facility] 2022-01-27 2022-01-27 OFFICE STLMLC STLMLC [id number] Co mmon 00:00:00 00:00:00 VISIT EST Spir it PT LEVEL 3 - [facility] 2022-01-20 2022-01-20 Outpatient EL Yolanda, HCACL HCACL [id number] [facility] 05:38:00 05:38:00 Az [id number] [facility] 2022-01-20 2022-01-20 Outpatient EL Yolanda, HCACL [id number] [facility] 05:38:00 05:38:00 Az 71 [facility] 2022-01-13 2022-01-13 Office Home, 1.2.840.1 [id number] Methodi 14:00:00 14:38:06 Visit Reneesadie Roach 51993.1.[address] 3.430.2.7 Hospit a .3.386075 l .8 2022-01-13 2022-01-13 Office Home, 1.2.840.1 [id number] 7787 Methodi 14:00:00 14:38:06 Visit Inder Roach 26762.1.[address] 3.430.2.7 Hospit a .3.104213 l .8 2022-01-13 2022-01-13 Travel 1.2.840.1 1.2.819.058 8603 093209 Methodi 00:00:00 00:00:[address] 3.430.2.7 0.2.7.3.698 Ho spita .3.206475 084.8 l .8 2022-01-13 2022-01-13 Travel 1.2.840.1 1.2.746.992 8050 017841 Methodi 00:00:00 00:00:[address] 3.430.2.7 0.2.7.3.698 Ho spita .3.317083 084.8 l .8 2022-01-01 2022-01-01 Documentat Readeaux, 1.2.840.1 [id number] 2 [id number] Methodi 00:00:00 00:00:00 [address]ie 80826.1.[address] 3.430.2.7 Hospit a .3.790992 l .8 2022-01-01 2022-01-01 Orders Readeaux, 1.2.840.1 [id number] 2099 [id number] Methodi 00:00:00 00:00:00 Only Billie 44848.1.[address] 3.430.2.7 Hospit a .3.613221 l .8 2022-01-01 2022-01-01 Documentat Readeaux, 1.2.840.1 [id number] 2 [id number] Methodi 00:00:00 00:00:[address]ie [address]604.1.[address] 3.430.2.7 Hospit a .3.588841 l .8 2022-01-01 2022-01-01 Orders Readeaux, 1.2.840.1 [id number] 2099 [id number] Methodi 00:00:00 00:00:00 Only Billie 55543.1.[address] 3.430.2.7 Hospit a .3.121011 l .8 2021-12-31 2021-12-31 Sylvesterill Home, 1.2.840.1 [id number] 0656 Methodi 00:00:00 00:00:00 Shivan M [address]383.1.[address] 3.430.2.7 Hospit a .3.500030 l .8 2021-12-31 2021-12-31 Marcy Bhat, 1.2.840.1 [id number] 2513 Methodi 00:00:00 00:00:00 Shivan M [address]883.1.[address] 3.430.2.7 Hospit a .3.083145 l .8 2021-12-24 2021-12-24 (TEL) STLMLC STLMLC [id number] Co mmon 00:00:00 00:00:00 Spirit - [facility] 2021-12-24 2021-12-24 (TEL) STLMLC STLMLC [id number] Co mmon 00:00:00 00:00:00 Spirit - [facility] 2021-12-24 2021-12-24 OFFICE STLMLC STLMLC [id number] Co mmon 00:00:00 00:00:00 VISIT Sudeep [facility] PT - CHI LEVEL 1 [facility] 2021-12-17 2021-12-17 Oncology Green, 1.2.840.1 [id number] 04585 Methodi 00:00:00 00:00:00 Survivorsh Thuy [address]88.1.[address] ip 3.430.2.7 Hospit a .3.575884 l .8 2021-12-17 2021-12-17 Oncology Green, 1.2.840.1 [id number] 73729 Methodi 00:00:00 00:00:00 Survivorsh [address]uy [address]117.1.[address] ip 3.430.2.7 Hospit a .3.432371 l .8 2021-12-10 2021-12-10 Outpatient EL Yolanda, HCACL HCACL [id number] [facility] 05:32:00 05:32:00 Az [id number] [facility] 2021-12-10 2021-12-10 Outpatient EL Yolanda, HCACL DAYS [id number] [facility] 05:32:00 05:32:00 Az 32 [facility] 2021-11-16 2021-11-24 [facility] Laina Rucker 1.2.840.1 10 [id number] Methodi 19:43:00 19:03:00 Encounter Joceline Barton 47296.1.[address] 3.430.2.7 Hospit a .3.833405 l .8 2021-11-16 2021-11-24 [facility] Laina Rucker 1.2.840.1 10 [id number] Methodi 19:43:00 19:03:00 Encounter Joceline Barton 89818.1.[address] 3.430.2.7 Hospit a .3.087549 l .8 2021-11-16 2021-11-16 Travel 1.2.840.1 1.2.399.565 8129 [id number] Methodi 00:00:00 00:00:[address] 3.430.2.7 0.2.7.3.698 Ho spita .3.642123 084.8 l .8 2021-11-16 2021-11-16 Travel 1.2.840.1 1.2.158.109 5136 939014 Methodi 00:00:00 00:00:[address] 3.430.2.7 0.2.7.3.698 Ho spita .3.261262 084.8 l .8 2021-10-29 2021-10-29 Telephone Sad, 1.2.840.1 [id number] 2100 [id number] Methodi 00:00:00 00:00:[address] 3.430.2.7 Hospit a .3.171473 l .8 2021-10-29 2021-10-[address] [facility], 1.2.840.1 [id number] 2099 [id number] Methodi 00:00:00 00:00:[address] Eng 3.430.2.7 Hospit a .3.488630 l .8 2021-10-09 2021-10-27 [facility] 1.2.840.1 104 [id number] Methodi 10:33:00 20:19:00 Encounter Joceline Barton 05137.1.[address] 3.430.2.7 Hospit a .3.547940 l .8 2021-10-09 2021-10-27 Hospital Raghu Sheehan 1.2.840.1 104 [id number] Methodi 10:33:00 20:19:00 Encounter Joceline Barton 62370.1.[address] 3.430.2.7 Hospit a .3.214782 l .8 2021-10-13 2021-10-13 Orders Nieves, 1.2.840.1 [id number] 0788 Methodi 00:00:00 00:00:00 Only Uzma 35256.1.[address] 3.430.2.7 Hospit a .3.300441 l .8 2021-10-13 2021-10-13 Orders Nieves, 1.2.840.1 [id number] 9612 Methodi 00:00:00 00:00:00 Only Uzma 23976.1.[address] 3.430.2.7 Hospit a .3.045645 l .8 2021-10-12 2021-10-12 Anesthesia Jhon Wesley 1.2.840.1 [id number] 2 [id number] Methodi 18:42:00 20:34:[address] 3.430.2.7 Hospit a .3.987761 l .8 2021-10-12 2021-10-12 Anesthesia Jhon Wesley 1.2.840.1 [id number] 2 [id number] Methodi 18:42:00 20:34:[address] 3.430.2.7 Hospit a .3.857003 l .8 2021-10-12 2021-10-12 Surgery Yolanda, 1.2.840.1 [id number] 5224 Methodi 18:00:00 19:20:[address] Manolo 3.430.2.7 Hospit a .3.141448 l .8 2021-10-12 2021-10-12 Surgery Yolanda, 1.2.840.1 [id number] 5087 Methodi 18:00:00 19:20:[address] Manolo 3.430.2.7 Hospit a .3.062691 l .8 2021-10-09 2021-10-09 Travel 1.2.840.1 1.2.966.280 2245 299544 Methodi 00:00:00 00:00:[address] 3.430.2.7 0.2.7.3.698 Ho spita .3.431793 084.8 l .8 2021-10-09 2021-10-09 Travel 1.2.840.1 1.2.050.465 1634 247157 Methodi 00:00:00 00:00:[address] 3.430.2.7 0.2.7.3.698 Ho spita .3.407887 084.8 l .8 2021-09-30 2021-09-30 (ESTPT) STLMLC STLMLC [id number] Co mmon 00:00:00 00:00:00 Reji driver Patient - [facility] 2021-09-22 2021-09-22 Orders Ezequiel, 1.2.840.1 [id number] 9040 Methodi 00:00:00 00:00:00 Only Uzma 36733.1.[address] 3.430.2.7 Hospit a .3.676302 l .8 2021-09-10 2021-09-10 OFFICE STLMLC STLMLC [id number] Co mmon 00:00:00 00:00:00 VISIT EST Spir it PT LEVEL 3 - [facility] 2021-08-25 2021-08-29 Hospital Kayce Parks 1.2.840.1 [id number] 2 [id number] Methodi 19:10:00 12:50:00 Encounter Ellen Angulo 77808.1.[address] Reynaldo Navarrete 3.430.2.7 [facility] .3.327223 l .8 2021-08-28 2021-08-28 Anesthesia Layton, 1.2.840.1 [id number] Methodi 23:59:59 23:59:59 Event Rishi Gil 64503.1.[address] 3.430.2.7 Hospit a .3.605630 l .8 2021-08-28 2021-08-28 Anesthesia Traylor, 1.2.840.1 [id number] 012 [id number] Methodi 23:59:59 23:59:59 Event Rishi Gil 34038.1.[address] 3.430.2.7 Hospit a .3.716119 l .8 2021-08-28 2021-08-28 Orders Nieves, 1.2.840.1 [id number] [id number] 9164 Methodi 00:00:00 00:00:00 Only Uzma 55816.1.[address] 3.430.2.7 Hospit a .3.946265 l .8 2021-08-25 2021-08-25 Travel 1.2.840.1 1.2.652.981 2773 051741 Methodi 00:00:00 00:00:[address] 3.430.2.7 0.2.7.3.698 Ho spita .3.783904 084.8 l .8 2021-08-20 2021-08-20 OFFICE STLMLC STLMLC [id number] Co mmon 00:00:00 00:00:00 VISIT Spirit ESTAB PT - [facility]I LEVEL 2 [facility] 2021-07-23 2021-07-23 [facility] [id number] Co mmon 00:00:00 00:00:00 VISIT EST Spir it PT LEVEL 3 - [facility] 2021-07-07 2021-07-07 Telephone Renetta, 1.2.840.1 [id number] Methodi 14:30:00 14:45:00 Consult Souleymane Ocampo 30731.1.[address] 3.430.2.7 Hospit a .3.506103 l .8 2021-07-06 2021-07-06 Outpatient RENETTA, [facility] [id number] [place] 00:00:00 00:00:[address] [place] 2021-07-06 2021-07-06 Travel 1.2.840.1 1.2.733.000 3807 400862 Methodi 00:00:00 00:00:[address] 3.430.2.7 0.2.7.3.698 Ho spita .3.569774 084.8 l .8 2021-07-01 2021-07-01 [facility] [id number] Co mmon 00:00:00 00:00:00 VISIT [facility] PT LEVEL 4 - [facility] 2021-06-24 2021-06-24 Documentat Artur, 1.2.840.1 [id number] 013 [id number] Methodi 00:00:00 00:00:00 tc Gambino 9[address]21.1.[address] 3.430.2.7 Hospit a .3.496256 l .8 2021-06-23 2021-06-23 Documentat Artur, 1.2.840.1 [id number] 902 [id number] Methodi 00:00:00 00:00:00 tc Gambino [address]109.1.[address] 3.430.2.7 Hospit a .3.232495 l .8 2021-04-22 2021-04-22 Refill Lynn, 1.2.840.1 [id number] 525040 5049 Methodi 00:00:00 00:00:[address] 3.430.2.7 Hospit a .3.878641 l .8 2021-04-07 2021-04-07 Office Renetta, 1.2.840.1 [id number] 21 [id number] Methodi 13:22:43 13:37:43 Visit Souleymane Ocampo 91724.1.[address] 3.430.2.7 Hospit a .3.191509 l .8 2021-04-07 2021-04-07 Outpatient RENETTA, [facility] 583 [id number] [place] 00:00:00 00:00:00 SOU[address]E [address] 2021-04-07 2021-04-07 Travel 1.2.840.1 1.2.387.705 0064 015477 Methodi 00:00:00 00:00:[address] 3.430.2.7 0.2.7.3.698 Ho spita .3.738149 084.8 l .8 2021-02-18 2021-02-18 Telemedici Jair, 1.2.840.1 [id number] 327 [id number] Methodi 10:16:48 11:16:49 ne Onelia 35908.1.[address] 3.430.2.7 Hospit a .3.226262 l .8 2021-02-16 2021-02-16 Lab Lincoln, 1.2.840.1 [id number] Methodi 08:29:31 08:34:[address] Sonu 3.430.2.7 Hospit a .3.483245 l .8 2021-02-16 2021-02-16 Telephone Minerva, 1.2.840.1 [id number] 21 [id number] Methodi 00:00:00 00:00:[address] 3.430.2.7 Hospit a .3.183518 l .8 2021-02-16 2021-02-16 Travel 1.2.840.1 1.2.687.581 9848 069720 Methodi 00:00:00 00:00:[address] 3.430.2.7 0.2.7.3.698 Ho spita .3.195028 084.8 l .8 2021-02-11 2021-02-11 Refill Artur, 1.2.840.1 [id number] 775361 2255 Methodi 00:00:00 00:00:[address] 3.430.2.7 Hospit a .3.443185 l .8 2021-02-11 2021-02-11 Refill Artur, 1.2.840.1 [id number] 078524 5456 Methodi 00:00:00 00:00:[address] 3.430.2.7 Hospit a .3.298413 l .8 2021-02-09 2021-02-09 Office Tanya 1.2.840.1 [id number] 074780 3234 Methodi 07:42:22 08:03:19 Visit Jus 13790.1.[address] Penelope 3.430.2.7 Hospit a .3.092811 l .8 2021-02-09 2021-02-09 Travel 1.2.840.1 1.2.729.733 3773 468288 Methodi 00:00:00 00:00:[address] 3.430.2.7 0.2.7.3.698 Ho spita .3.567153 084.8 l .8 2021-01-28 2021-01-28 Telephone Desiree 1.2.840.1 [id number] Methodi 00:00:00 00:00:00 , Kiley 19576.1.[address] 3.430.2.7 Hospit a .3.259416 l .8 2021-01-27 2021-01-27 Hospital Sharifa Hansen 1.2.840.1 [id number] 436 [id number] Methodi 06:00:00 13:37:[address] 3.430.2.7 Hospit a .3.150372 l .8 2021-01-27 2021-01-27 Surgery Sharifa Hansen 1.2.840.1 [id number] 2100 873356 Methodi 10:00:00 12:15:[address] 3.430.2.7 Hospit a .3.474187 l .8 2021-01-27 2021-01-27 Anesthesia Paola Lobato 1.2.840 .1 [id number] Methodi 10:49:00 12:11:00 Event Demetra Short 24090.1.[address] 3.430.2.7 Hospit a .3.019881 l .8 2021-01-26 2021-01-26 Travel 1.2.840.1 1.2.576.088 9528 997513 Methodi 00:00:00 00:00:[address] 3.430.2.7 0.2.7.3.698 Ho spita .3.108775 084.8 l .8 2021-01-22 2021-01-22 Hospital MarleniSharifa 1.2.840.1 [id number] 186 [id number] Methodi 14:45:00 23:59:[address] 3.430.2.7 Hospit a .3.644558 l .8 2021-01-22 2021-01-22 Travel 1.2.840.1 1.2.582.774 1772 956641 Methodi 00:00:00 00:00:[address] 3.430.2.7 0.2.7.3.698 Ho spita .3.992321 084.8 l .8 2021-01-21 2021-01-21 Lab MarleniSharifa 1.2.840.1 [id number] 2100 538414 Methodi 14:27:32 14:42:[address] 3.430.2.7 Hospit a .3.558796 l .8 2021-01-21 2021-01-21 Office Tanya 1.2.840.1 [id number] 4033 Methodi 13:08:26 14:20:16 Visit Jus 90496.1.[address] Penelope 3.430.2.7 Hospit a .3.046746 l .8 2021-01-21 2021-01-21 Outpatient SANDRA CERVANTES [facility] 310 [id number] [place] 00:00:00 00:00:[address] 2021-01-21 2021-01-21 Telephone Sharifa Hansen 1.2.840.1 [id number] 21 [id number] Methodi 00:00:00 00:00:[address] 3.430.2.7 Hospit a .3.303917 l .8 2021-01-21 2021-01-21 Prep for Peneralorida 1.2.840.1 [id number] 2 [id number] Methodi 00:00:00 00:00:00 Surgery , Kiley 60684.1.[address] 3.430.2.7 Hospit a .3.323222 l .8 2021-01-21 2021-01-21 Orders Connie, 1.2.840.1 [id number] 418 [id number] Methodi 00:00:00 00:00:00 Only Sophia 08443.1.[address] 3.430.2.7 Hospit a .3.105513 l .8 2021-01-21 2021-01-21 Orders Penaflorida 1.2.840.1 [id number] 21 [id number] Methodi 00:00:00 00:00:00 Only , Kiley 49630.1.[address] 3.430.2.7 Hospit a .3.404177 l .8 2021-01-21 2021-01-21 Travel 1.2.840.1 1.2.664.217 9877 388688 Methodi 00:00:00 00:00:[address] 3.430.2.7 0.2.7.3.698 spita .3.383320 084.8 l .8 2021-01-20 2021-01-20 Telephone Renetta 1.2.840.1 [id number] Methodi 13:56:10 14:11:10 Consult Souleymane Ocampo 71277.1.[address] 3.430.2.7 Hospit a .3.940802 l .8 2021-01-20 2021-01-20 Telephone Sandra Cervantes 1.2.840.1 [id number] Methodi 00:00:00 00:00:[address] 3.430.2.7 Hospit a .3.419986 l .8 2021-01-19 2021-01-[address] [facility], 1.2.840.1 [id number] 6556 Methodi 09:31:38 09:51:38 Visit Onelia 02730.1.[address] Neg 3.430.2.7 Hospit a .3.909445 l .8 2021-01-19 2021-01-19 Outpatient STARK, [facility] [id number] [place] 00:00:00 00:00:00 MAYA [address] 2021-01-19 2021-01-19 Outpatient [facility], [facility] [id number] 488 [place] 00:00:00 00:00:00 ONELIA [address] 2021-01-19 2021-01-19 Telephone Minerva, 1.2.840.1 [id number] Methodi 00:00:00 00:00:[address] 3.430.2.7 Hospit a .3.489145 l .8 2021-01-19 2021-01-19 Travel 1.2.840.1 1.2.229.386 4714 265856 Methodi 00:00:00 00:00:[address] 3.430.2.7 0.2.7.3.698 Ho spita .3.816100 084.8 l .8 2021-01-15 2021-01-15 Telephone Stanley, 1.2.840.1 [id number] 2099 350448 Methodi 00:00:00 00:00:[address] 3.430.2.7 Hospit a .3.225141 l .8 2020-12-24 2020-12-24 Lab Renetta, 1.2.840.1 [id number] Methodi 07:21:53 07:26:53 Souleymane Ocampo 44748.1.[address] 3.430.2.7 Hospit a .3.701284 l .8 2020-12-24 2020-12-24 Lab Sadhu, 1.2.840.1 [id number] 936009 5319 Methodi 07:20:47 07:25:[address] 3.430.2.7 Hospit a .3.240049 l .8 2020-12-24 2020-12-24 Telephone Stanley, 1.2.840.1 [id number] 2099 805860 Methodi 00:00:00 00:00:[address] 3.430.2.7 Hospit a .3.622556 l .8 2020-12-24 2020-12-24 Travel 1.2.840.1 1.2.460.594 5550 675943 Methodi 00:00:00 00:00:[address] 3.430.2.7 0.2.7.3.698 Ho spita .3.178472 084.8 l .8 2020-12-17 2020-12-17 Telephone Abdmichael, 1.2.840.1 [id number] Methodi 00:00:00 00:00:00 Soule[address]ane [address]o [address] 3.430.2.7 Hospit a .3.036804 l .8 2020-11-28 2020-11-28 Orders Readeaux, 1.2.840.1 [id number] 2099 224411 Methodi 00:00:00 00:00:00 Only Billie 60578.1.[address] 3.430.2.7 Hospit a .3.222931 l .8 2020-11-25 2020-11-25 Telephone Abdellatif, 1.2.840.1 [id number] Methodi 07:57:52 08:12:52 Consult Souleymane Ocampo 71843.1.[address] 3.430.2.7 Hospit a .3.818642 l .8 2020-11-25 2020-11-25 Telephone Peck, 1.2.840.1 [id number] 2099 142191 Methodi 00:00:00 00:00:[address] Ke[address]1.[address] 3.430.2.7 Hospit a .3.606985 l .8 2020-11-24 2020-11-24 Outpatient LINCOLN [facility] [id number] [place] 00:00:00 00:00:00 MAYA [address] 2020-11-24 2020-11-24 Travel 1.2.840.1 1.2.183.940 1614 521646 Methodi 00:00:00 00:00:[address] 3.430.2.7 0.2.7.3.698 Ho spita .3.643924 084.8 l .8 2020-11-12 2020-11-12 Office Lynn, 1.2.840.1 [id number] 386398 9347 Methodi 14:11:11 14:31:11 Visit Onelia 41139.1.[address] 3.430.2.7 Hospit a .3.879624 l .8 2020-11-12 2020-11-12 Outpatient [facility] [id number] Common 00:00:00 00:00:00 [facility] 2020-11-12 2020-11-12 Travel 1.2.840.1 1.2.375.340 4924 842619 Methodi 00:00:00 00:00:[address] 3.430.2.7 0.2.7.3.698 Ho spita .3.015026 084.8 l .8 2020-11-10 2020-11-10 Lab Stark, 1.2.840.1 [id number] 878823 4269 Methodi 09:00:31 09:05:[address] Sonu 3.430.2.7 Hospit a .3.533472 l .8 2020-11-10 2020-11-10 Travel 1.2.840.1 1.2.364.842 2555 205062 Methodi 00:00:00 00:00:[address] 3.430.2.7 0.2.7.3.698 Ho spita .3.513182 084.8 l .8 2020-11-05 2020-11-05 Telephone Zach, 1.2.840.1 [id number] 2100 455964 Methodi 00:00:00 00:00:00 Darline Roach [address]441.1.[address] 3.430.2.7 Hospit a .3.778931 l .8 2020-11-03 2020-11-03 Refill Siddiqui, 1.2.840.1 [id number] 385320 0927 Methodi 00:00:00 00:00:[address] 3.430.2.7 Hospit a .3.006867 l .8 2020-10-28 2020-10-28 Telephone Renetta, 1.2.840.1 [id number] Methodi 14:38:27 14:53:27 Consult Souleymane Ocampo 39750.1.[address] 3.430.2.7 Hospit a .3.863418 l .8 2020-10-27 2020-10-27 Lab Lincoln, 1.2.840.1 [id number] 1872 Methodi 07:45:13 07:50:[address] Sonu 3.430.2.7 Hospit a .3.442415 l .8 2020-10-27 2020-10-27 Lab Parveenliliannadia, 1.2.840.1 [id number] 21 [id number] Methodi 07:15:48 07:20:48 [address]rence 17731.1.[address] 3.430.2.7 Hospit a .3.793196 l .8 2020-10-27 2020-10-27 Refill Artur, 1.2.840.1 [id number] 0917 Methodi 00:00:00 00:00:[address] 3.430.2.7 Hospit a .3.523948 l .8 2020-10-27 2020-10-27 Refill Artur, 1.2.840.1 [id number] 329516 8454 Methodi 00:00:00 00:00:[address] 3.430.2.7 Hospit a .3.331739 l .8 2020-10-27 2020-10-27 Travel 1.2.840.1 1.2.145.676 4607 667950 Methodi 00:00:00 00:00:[address] 3.430.2.7 0.2.7.3.698 Ho spita .3.676816 084.8 l .8 2020-10-24 2020-10-24 Telephone Dilcia, 1.2.840.1 [id number] 377 [id number] Methodi 00:00:00 00:00:[address] 3.430.2.7 Hospit a .3.523030 l .8 2020-10-22 2020-10-22 Refill Lynn, 1.2.840.1 [id number] 478701 1755 Methodi 00:00:00 00:00:[address] 3.430.2.7 Hospit a .3.736260 l .8 2020-10-22 2020-10-22 Telephone Stanley, 1.2.840.1 [id number] 2100 479230 Methodi 00:00:00 00:00:[address] 3.430.2.7 Hospit a .3.174594 l .8 2020-10-14 2020-10-14 Telephone José Miguelnadia, 1.2.840.1 [id number] Methodi 14:44:11 14:59:11 Consult Souleymane Ocampo [address]181.1.[address] 3.430.2.7 Hospit a .3.293680 l .8 2020-10-13 2020-10-13 Lab Lincoln, 1.2.840.1 [id number] 107673 6820 Methodi 07:00:34 07:05:[address] Sonu 3.430.2.7 Hospit a .3.907687 l .8 2020-10-13 2020-10-13 Marcy Siddiqui, 1.2.840.1 [id number] 355995 8344 Methodi 00:00:00 00:00:[address] 3.430.2.7 Hospit a .3.978370 l .8 2020-10-13 2020-10-13 Travel 1.2.840.1 1.2.572.134 5950 207824 Methodi 00:00:00 00:00:[address] 3.430.2.7 0.2.7.3.698 Ho spita .3.524141 084.8 l .8 2020-10-06 2020-10-06 Outpatient [facility] [id number] [facility] 00:00:00 00:00:00 [facility] 2020-10-05 2020-10-05 Travel 1.2.840.1 1.2.674.488 8974 959139 Methodi 00:00:00 00:00:[address] 3.430.2.7 0.2.7.3.698 Ho spita .3.366648 084.8 l .8 2020-10-03 2020-10-03 Marcy Siddiqui, 1.2.840.1 [id number] 996583 8636 Methodi 00:00:00 00:00:[address] 3.430.2.7 Hospit a .3.393999 l .8 2020-09-30 2020-09-30 Telephone Lincoln, 1.2.840.1 [id number] 2100 535510 Methodi 10:21:15 10:36:15 Consult Maya 64625.1.[address] Sonu 3.430.2.7 Hospit a .3.685225 l .8 2020-09-30 2020-09-30 [id number] [address] [place] [address] 00:00:00 00:00:00 MAYA [address] 2020-09-30 2020-09-30 Travel 1.2.840.1 1.2.919.283 4328 266372 Methodi 00:00:00 00:00:[address] 3.430.2.7 0.2.7.3.698 Ho spita .3.125690 084.8 l .8 2020-09-29 2020-09-29 Patient Yuliana Billy 1.2.840.1 [id number] 21 [id number] Methodi 00:00:00 00:00:[address] 3.430.2.7 Hospit a .3.875457 l .8 2020-09-26 2020-09-26 Outpatient [facility] [id number] Common 00:00:00 00:00:00 [facility] 2020-09-26 2020-09-26 Patient Yuliana Billy 1.2.840.1 [id number] 21 [id number] Methodi 00:00:00 00:00:[address] 3.430.2.7 Hospit a .3.445360 l .8 2020-09-25 2020-09-25 Patient Yuliana Billy 1.2.840.1 [id number] 21 [id number] Methodi 00:00:00 00:00:[address] 3.430.2.7 Hospit a .3.455849 l .8 2020-09-17 2020-09-24 Hospital Fan, 1.2.840.1 [id number] 09780 74398 Methodi 20:12:00 18:10:00 Encounter [place] 83737.1.[address] 3.430.2.7 Hospit a .3.302814 l .8 2020-09-22 2020-09-22 Orders Nieves, 1.2.840.1 [id number] 878585 8073 Methodi 00:00:00 00:00:00 Only Uzma 31742.1.[address] 3.430.2.7 Hospit a .3.682601 l .8 2020-08-30 2020-09-17 [facility] 1.2.840.1 10 [id number] Methodi 14:06:00 20:03:00 Encounter Ana Laura Combs 59269.1.[address] 3.430.2.7 Hospit a .3.877166 l .8 2020-08-08 2020-08-08 Outpatient [facility] [id number] Common 00:00:00 00:00:00 [facility] 2020-08-06 2020-08-06 Outpatient [facility] [id number] Common 00:00:00 00:00:00 [facility] 2020-08-05 2020-08-05 Outpatient ABDELLATIF, [facility] [id number] [place] 00:00:00 00:00:00 SOULEYMANE [address] 2020-08-05 2020-08-05 Outpatient SEBASTIEN, [facility] [id number] [place] 00:00:00 00:00:00 AHMED [address] 2020-08-04 2020-08-04 Outpatient [facility] [id number] Common 00:00:00 00:00:00 [facility] 2020-07-07 2020-07-07 Outpatient ABDELLATIF, [facility] [id number] [place] 00:00:00 00:00:00 SOULEYMANE [address] 2020-06-02 2020-06-02 Outpatient [facility] [id number] Common 00:00:00 00:00:00 [facility] 2020-05-22 2020-05-22 Outpatient [facility] [id number] Common 00:00:00 00:00:00 [facility] 2020-05-20 2020-05-20 Outpatient LYNN, [facility] [id number] [place] 00:00:00 00:00:00 ONELIA [address] 2020-03-14 2020-03-14 Out[facility] [id number] Common 16:20:00 16:20:[address] [facility] 2020-02-23 2020-02-23 Out[facility] 31 [id number] Common 17:58:00 17:58:[address] [facility] 2020-02-18 2020-02-18 Out[facility] 31 [id number] Common 08:20:00 08:20:[address] [facility] 2020-01-22 2020-01-22 Outpatient STARK, [facility] [id number] [address] [place] [address] 00:00:00 00:00:00 MAYA [address] 2020-01-21 2020-01-21 Out[facility] [id number] Common 13:00:00 13:00:[address] [facility] 2020-01-15 2020-01-15 Outpatient ABDELLATIF, [facility] [id number] [place] 00:00:00 00:00:00 SOULEYMANE [address] 2019-12-11 2019-12-11 Out[facility] 30 [id number] Common 16:09:00 16:09:00 t [facility] [address] [facility] 2019-12-07 2019-12-07 Out[facility] 30 [id number] Common 13:40:00 13:40:[address] [facility] 2019-12-07 2019-12-07 Outpatient [facility] 30 [id number] Common 08:06:00 08:06:[address] [facility] 2019-12-06 2019-12-06 Out[facility] 30 [id number] Common 11:59:00 11:59:[address] [facility] 2019-11-23 2019-11-25 [facility] [id number] [place] 00:00:00 00:00:00 YULISA [address] 2019-10-11 2019-10-11 Out[facility] [id number] Common 09:00:00 09:00:00 t [employer] [address] [facility] Results Test Description Test Time Test Comments Results Result Comments Source GLUCOSE BEDSIDE 2022-04-30 11:22:00 Test Item Value Reference Range Interpretation Comme nts GLUCOSE BEDSIDE (test code = 307 MG/DL 70-110 H Performed by certified 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 [facility]) [facility] GLUCOSE [id number] 08:55:00 Test Item Value Reference Range Interpretation Comments GLUCOSE BEDSIDE (test 233 MG/DL 70-[address] 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 [facility] GLUCOSE [id number] 07:17:00 Test Item Value Reference Range Interpretation Comments GLUCOSE BEDSIDE (test 228 MG/DL 70-[address] 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 [facility] BASIC METABOLIC [id number] 07:02:00 Test Item Value Reference Range Interpretation [...] code = 7.8 mg/dL 8.0-10.5 L CA) [id number] 07:02:00 Test Item Value Reference Range Interpretation Comments PHOSPHOROUS (test code = PHOS) 5.4 MG/DL 2.5-4.9 H [id number] 07:02:00 Test Item Value Reference Range Interpretation Comments MAGNESIUM (test code = MAG) 2.09 mg/dL 1.80-2.40 N CBC W/AUTO [id number] 06:48:00 Test Item Value Reference Range Interpretation [...] MANUAL DIFF REQUIRED (test code NO = BEATRIZ) - XR CHEST 1 [id number] 00:00:00 [facility] 1955 Sex: F FAX: Az Torres [phone] [place]: St: ADM FAX: Rose Marie Stewart [phone] -- Name: PAOLA MISHRA [facility] : 1955 Age/S: 66/F [address] [place] [address] Unit #: [id number] Loc: G.6605 [place] [address] Phys: Az Guerrero MD Acct: [id number] Dis Date: Status: ADM IN PHONE #: Exam Date: 04/30/2022 0937 FAX #: [phone] Reason: Post Op in PACU EXAMS: CPT CODE:[id number] XR CHEST 1 V 78392 PROCEDURE INFORMATION: Exam: XR Chest Exam date and time: 04/30/2022 8:42 AM Age: 66 years old Clinical indication: Screening exam; Other screening; Additional info: Post op in pacu TECHNIQUE: Imaging protocol: Radiologic exam of the chest. Views: 1 view. COMPARISON: CR XRCHEST 1V 04/23/2022 9:09 PM FINDINGS: Tubes, catheters and devices: Right IJ hemodialysis catheter isin place. The catheter terminates in the region of the distal SVC. Lungs: Mild scarring in the leftlung base. No acute airspace disease. Improved aeration lungs with decreasing vascular congestion. Pleural spaces: Unremarkable. No pleural effusion. No pneumothorax. Heart/Mediastinum: Heart size is within normal limits. Vasculature is unremarkable. Bones/joints: Unremarkable. IMPRESSION: 1. Intervalplacement right IJ hemodialysis catheter as described . 2. Improved aeration lungs with decreasing pulmonary vascular congestion. t 1044 Reported and signed by: Emre Prakash M.D. CC: Az Guerrero MD; Marcella Stewart MD Technologist: Rosa M Bedoya, RT(R); Tosin OroRT(R) Trnscrd Date/Time/By: 04/30/2022 (1044) : By: [email or web address] [facility] Print D/T: S: 04/30/2022 (1045) PAGE 1 Signed ReportGLUCOSE [id number] 16:05:00 Test Item Value Reference Range Interpretation Comments GLUCOSE BEDSIDE (test 200 MG/DL 70-110 H Perfor med by certified code = GLUBED) 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 [facility] GLUCOSE [id number] 11:28:00 Test Item Value Reference Range Interpretation Comments GLUCOSE BEDSIDE (test 217 MG/DL 70-110 H Perfor med by certified code = GLUBED) 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 [facility] GLUCOSE [id number] 08:00:00 Test Item Value Reference Range Interpretation Comments GLUCOSE BEDSIDE (test 289 MG/DL 70-110 H Perfor med by certified code = GLUBED) 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 [facility] GLUCOSE [id number] 20:06:00 Test Item Value Reference Range Interpretation Comments GLUCOSE BEDSIDE (test 223 MG/DL 70-110 H Perfor med by certified code = GLUBED) 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 [facility] GLUCOSE [id number] 16:28:00 Test Item Value Reference Range Interpretation Comments GLUCOSE BEDSIDE (test 160 MG/DL 70-110 H Perfor med by certified code = GLUBED) 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 [facility] GLUCOSE [id number] 11:03:00 Test Item Value Reference Range Interpretation Comments GLUCOSE BEDSIDE (test 192 MG/DL 70-110 H Perfor med by certified code = GLUBED) 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 [facility] BASIC METABOLIC [id number] 07:39:00 Test Item Value Reference Range Interpretation [...] code = 7.7 mg/dL 8.0-10.5 L CA) [id number] 07:39:00 Test Item Value Reference Range Interpretation Comments PHOSPHOROUS (test code = PHOS) 7.4 MG/DL 2.5-4.9 H [id number] 07:39:00 Test Item Value Reference Range Interpretation Comments MAGNESIUM (test code = MAG) 2.22 mg/dL 1.80-2.40 N CBC W/AUTO [id number] 07:26:00 Test Item Value Reference Range Interpretation [...] REQUIRED (test code NO = MDIFF) GLUCOSE [id number] 07:20:00 Test Item Value Reference Range Interpretation Comments GLUCOSE BEDSIDE (test 229 MG/DL 70-110 H Perfor med by certified code = GLUBED) 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 [facility] VANCOMYCIN [id number] 07:20:00 Test Item Value Reference Range Interpretation Comments VANCOMYCIN TROUGH 19.6 mcg/mL 10.0-20.0 N 10-15 mcg/ mL - (test code = VANCT) Cellulit is, Urinary Tract Infection . 15-20 mcg/mL - Bacteremia, Infective Endocarditis, Meningitis, Osteomyelitis, Pneumonia, Lanette re Skin/Soft-Tissu e Infection, Spin al Abscess. 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 [facility] CBC W/AUTO [id number] 07:14:00 Test Item Value Reference Range Interpretation [...] (test code NO = MDIFF) ACUTE HEPATITIS [id number] 05:10:00 Test Item Value Reference Range Interpretation [...] COMMENTS: At start of hemodialysisAB HEPATITIS B [id number] 05:10:00 Test Item Value Reference Range Interpretation Comments AB HEPATITIS B > 1000.0 mIU/mL See_Comment Status of Immunity SURFACE (test code Anti-HBs Level = HBSAB) --- I ncons istent with Imm unity 0.0 - 9.9Consis tent with Immunity >9.9Performed A t: HD [facility] [address] [id number] Ha Weiss MD Ph:[phone] [Automated mess age] The system Wiki-[employer] generated this result transmit carolina reference range : Immunity>9.9. T he reference range was not used to interpret this result as normal/abnormal . 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 [facility] CBC W/AUTO [id number] 07:14:00 Test Item Value Reference Range Interpretation [...] MDIFF) - MRI LOW EXT W/O CONT [id number] 00:00:00 [facility] TADUBALDOP[facility]AL S : 1955 Sex: F FAX: Rose Marie Stewart [phone] [place]: St: ADM FAX: Mellissa Ng MD [phone] -- Name: PAOLA MISHRA [facility] : 1955 Age/S: 66/F [address] [place] [address] Unit #: [id number] Loc: G.6605 [place] [address] Phys: Mellissa Suarez MD Acct: [id number] Dis Date: Status: ADM IN PHONE #: Exam Date: 04/26/2022 1148 FAX #: [phone] Reason: rt heel wound EXAMS: CPT CODE: [id number] MRI LOW EXT W/[place] [address] PROCEDURE INFORMATION: Exam: MR Right Lower Extremity Without Contrast; Forefoot Exam date and time: 04/26/2022 11:05 AM Age: 66 years old Clinical indication: Other: RT heel wound TECHNIQUE: Imaging protocol: MR of the Right foot without contrast. Exam focused on the forefoot. COMPARISON: CR XR FOOT 3 + V RT 04/25/2022 3:56 PM FINDINGS: Bones and joints: No evidence for acute fracture. Marrow signal is within normal limits. Mild tibiotalar degenerative changes. Small dorsal spurs. Small tibiotalar joint effusion LIGAMENTS: Collateral ligaments of digits: Unremark able. No evidence of tear. TENDONS: Flexor tendons of foot: Unremarkable. No evidence of tear. Extensor tendons of foot: Unremarkable. No evidence of tear. Muscles: Atrophy of the musculature of the foot noted. Plantar fascia: Thickening of the central cord of the plantar fascia without tear. Small plantar calcaneal enthesophyte. Soft tissues: Small wound along the plantar aspect of the heel. There is no evidence for abscess. Remaining soft tissues appear unremarkable. IMPRESSION: 1. Small soft tissue wound plantar aspect of the heel. Negative for abscess or osteomyelitis. 2. Chronic plantar fasciitis without tear. 3. Small tibiotalar joint effusion. Mild degenerative changes. 4. Atrophy of the musculature of the foot likely chronic denervation. at 1312 Reported and signed by: Emre Prakash M.D. CC: Marcella Stewart MD; Mellissa Suarez MD Technologist: RT Lissa(R)(CT) Trnscrd Date/Time/By: 022 (1311) : By: [email or web address] Orig Print D/T: S: 04/26/2022 (1311) PAGE 1 Signed Report- XR FOOT 3 + V [id number] 00:00:00 [facility] 1955 Sex: F FAX: Rose Marie Stewart [phone] [place]: St: [facility] FAX: Xavi Sloan DPM [phone] ------- Name: PAOLA MISHRA [facility] : 1955 Age/S: 66/F [address] [place] [address] Unit #: [id number] Loc: G.6605 [place] [address] Phys: Xavi Sloan DPM Acct: [id number] Dis Date: Status: ADM IN PHONE #: [phone] Exam Date: 04/25/2022 1558 FAX #: [phone] Reason: chronic ulcer right heel EXAMS: CPT CODE:[id number] XR FOOT 3 + V RT 18852 PROCEDURE INFORMATION: Exam: XR Right Foot Exam date and time: 04/25/2022 3:56 PM Age: 66 years old Clinical indication: Other: Chronic ulcer right heel TECHNIQUE: Imaging protocol: Radiologic exam of the Right foot. Views: 3 or more views. AP Oblique Lateral COMPARISON: CR XR ANKLE 3 + V RT 04/24/2022 4:19 PM FINDINGS: Bones/joints: No acute fractures or dislocations are seen. There is grossly no radiographic evidence of osteomyelitis. The joint spaces are grossly maintained. Soft tissues: No radiopaque foreign bodies or subcutaneous emphysema are seen. Vasculature: Regional vascular calcifications are noted. IMPRESSION: No acute bony abnormalities. at 0558 Reported and signed by: Nick Johnson M.D. 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 [facility] BASIC METABOLIC [id number] 08:08:00 Test Item Value Reference Range Interpretation [...] 8.1 mg/dL 8.0-10.5 N CA) CBC W/AUTO [id number] 07:33:00 Test Item Value Reference Range Interpretation [...] REQUIRED (test code NO = MDIFF) GLUCOSE [id number] 07:24:00 Test Item Value Reference Range Interpretation Comments GLUCOSE BEDSIDE (test 164 MG/DL 70-110 H Perfor med by certified code = GLUBED) 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 [facility] - XR ANKLE 3 + V [id number] 00:00:00 [facility] : 1955 Sex: F FAX: Rose Marie Stewart [phone] [place]: St: ADM FAX: Xavi Sloan DPM [phone] ------- Name: PAOLA MISHRA [facility] : 1955 Age/S: 66/F [address] [place] [address] Unit #: [id number] Loc: G.7745 [place] [address] Phys: Xavi Sloan DPM Acct: [id number] Dis Date: Status: ADM IN PHONE #: [phone] Exam Date: 04/24/2022 1619 FAX #: [phone] Reason: chronic ulcer right heel EXAMS: CPT CODE: [id number] XR ANKLE 3 + V RT 81026 PROCEDURE INFORMATION: Exam: XR Right Ankle Exam date and time: 04/24/2022 4:19 PM Age: 66 years old Clinical indication: Other: Chronic ulcer right heel TECHNIQUE: Imaging protocol: Radiologic exam of the Right ankle. Views: 3 or more views. AP Oblique Lateral COMPARISON: No relevant prior studies available. FINDINGS: Bones/joints: Bones are osteopenic. No fracture ordislocation. Ankle mortise is intact. No destructive osseous lesion. No osseous erosions. Soft tissues: There is soft tissue swelling. There are no radiopaque foreign bodies. Vasculature: Severe atherosclerotic vascular calcification. Notes: If there is further concern, recommend follow-up radiographsor MRI for complete assessment. IMPRESSION: 1. No acute abnormality. 2. No radiographic evidence forosteomyelitis. at 0748 Reported and signed by: Ivette Milligan M.D. CC: Marcella Stewart MD; Xavi Sloan DPM Technologist: Abimbola Huitron RT(R); Mely Nobles RT(R) Trnctrd Date/Time/By: 04/25/2022 (0748) : By: [email or web address] Orig Print D/T: S: 04/25/2022 (0749) PAGE 1 Signed Report- DOP [facility] 2022-04-25 00:00:00 [facility] : 1955 Sex: F Name: PAOLA MISHRA [facility] [place] : 1955 Age/S: 66 / F [address] [place] [address] Unit #: [id number] Loc: PAUL [place] [address] Phys: Xavi Sloan DPDoc Acct: [id number] Dis Date: Status: ADM IN PHONE #: [phone] Exam Date: 04/25/2022 1103 FAX #: [phone] Reason: chronic wound right heel EXAMS: CPT CODE: [id number] DOP ART SGL LEVEL REGINE 53699 PROCEDURE INFORMATION: Exam: US Duplex Lower Extremity Arteries Exam date and time: 04/25/2022 10:31 AM Age: 66 years old Clinical indication: Other: Wounds; Additional info: Chronic wound right heel [...] Right posterior tibial artery: 99 cm/s monophasic waveform Right dorsalis pedis artery: 57 cm/s monophasic waveform Left common femoral artery: 107 cm/s multiphasic waveform Left proximal superficial femoral artery: 95 cm/s multiphasic waveform Left mid superficial femoral artery: 103 cm/s multiphasic waveform Left distal superficial femoral artery: 89 cm/s multiphasic waveform Left popliteal artery: 91 cm/s multiphasic waveform Left posterior tibial artery:73 cm/s monophasic waveform Left dorsalis pedis artery: 57 cm/s monophasic waveform RIGHT LOWER EXTREMITY4 Right brachial artery: 154 mmHg Ankle, posterior tibial artery: 160 mmHg, index 1.04 Ankle, dorsalis pedis artery: > 254 mmHg, NC LEFT LOWER EXTREMITY: Left brachial artery: 154 mmHg Ankle, posterior tibial artery: >254, NC Ankle, dorsalis pedis artery: 158 mmHg, index 1.03 IMPRESSION: Find ings consistent with severe bilateral infrapopliteal peripheral PAGE 1 Signed Report (CONTINUED) Name: PAOLA MISHRA [facility] : 1955 Age/S: 66 / F [address] [place] [address] Blvd Unit #: [id number] Loc: [place] [address] Phys: Xavi Sloan DPDoc Acct: [id number] Dis Date: Status: ADM INPHONE #: [phone] Exam Date: 04/25/2022 110 FAX #: [phone] Reason: chronic wound right heel EXAMS: CPT CODE: [id number] DOP ART SGL LEVEL REGINE 57[address] (Continued) vascular disease. at 1130 Reported and signed by: Ivette Villegas M.D. 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 [facility] SED RATE [id number] 18:14:00 Test Item Value Reference Range Interpretation Comments SED RATE WESTERGREN (test code = 14 mm/hr 0-20 N SEDW) GLUCOSE [id number] 16:06:00 Test Item Value Reference Range Interpretation Comments GLUCOSE BEDSIDE (test 205 MG/DL 70-110 H Perfor med by certified code = GLUBED) 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 [facility] GLUCOSE [id number] 11:52:00 Test Item Value Reference Range Interpretation Comments GLUCOSE BEDSIDE (test 172 MG/DL 70-110 H Perfor med by certified code = GLUBED) 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 [facility] BASIC METABOLIC [id number] 08:33:00 Test Item Value Reference Range Interpretation [...] 8.0 mg/dL 8.0-10.5 N CA) CBC W/AUTO [id number] 07:13:00 Test Item Value Reference Range Interpretation [...] REQUIRED (test code NO = MDIFF) GLUCOSE [id number] 07:11:00 Test Item Value Reference Range Interpretation Comments GLUCOSE BEDSIDE (test 168 MG/DL 70-110 H Perfor med by certified code = GLUBED) 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 [facility] GLUCOSE [id number] 03:47:00 Test Item Value Reference Range Interpretation Comments GLUCOSE BEDSIDE (test 199 MG/DL 70-110 H Perfor med by certified code = GLUBED) 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 [facility] BASIC METABOLIC [id number] 13:13:00 Test Item Value Reference Range Interpretation Comments SODIUM (test code = 129 mEq/L 134-147 L NA) POTASSIUM (test code = 6.0 mEq/L 3.4-5.0 HH Criti michael result K) called to Daniele ALVARADO [facility] .KM1 at 1313 2Nurse read back resul [...] 8.0 mg/dL 8.0-10.5 N CA) HEPATIC FUNCTION [id number] 13:13:00 Test Item Value Reference Range Interpretation [...] IUnit/L 20-125 N code = ALKP) LACTIC [id number] 13:08:00 Test Item Value Reference Range Interpretation Comments LACTIC ACID (test code = LACT) 0.9 mmol/L 0.4-1.9 N CBC W/AUTO [id number] 12:55:00 Test Item Value Reference Range Interpretation [...] NO = MDIFF) - XR CHEST 1 [id number] 00:00:00 [facility] : 1955 Sex: F FAX: Az Torres [phone] [place]: St: [facility] FAX: MaddieaugustaKristopher blancoadrian [phone] - Name: PAOLA MISHRA [facility] : 1955 Age/S: 66/F [address] [place] [address] Blvd Unit #: [id number] Loc: G.6605 [place] [address] Phys: Az Guerrero MD Acct: [id number] Dis Date: Status: ADM IN PHONE #: Exam Date: 04/23/20222127 FAX #: [phone] Reason: CONFIRM CENTRAL LINE PLACEMENT EXAMS: CPT CODE: [id number] XR CHEST 1 V 05295 PROCEDURE INFORMATION: Exam: XR Chest Exam date [...] crowding and bilateral lower lobe atelectasis. at 215 Reported and signed by: Chucky Leavitt M.D. CC: Az Guerrero MD; Marcella Stewart MD Technologist: RT Mario(R) Trnscrd Date/Time/By: 04/23/2022 (2151) : By: [email or web address] Orig Print D/T: S: 04/23/2022 (2152) PAGE 1 Signed Report- XR CHEST 2 V 2022-04-23 00:00:00 [facility] : 1955 Sex: F FAX: Allison Etienne [place]: St: REG Name: PAOLA MISHRA [facility] : 1955 Age/S: 66/F [address] [place] [address] Unit #: [id number] Loc: [place] [address] Phys: Allison Etienne Acct: [id number] Dis Date: Status: REG ER PHONE #: [phone] Exam Date: 04/23/2022 1145 FAX #: [phone] Reason: FLUID OVERLOAD EXAMS: CPT CODE: [id number] XR CHEST 2 V 70999 PROCEDURE INFORMATION: Exam: XR Chest Exam date [...] Heart/Mediastinum: The cardiac silhouette is enlarged accounting f or magnification. Bones/joints: Moderate thoracic spondylosis without destructive bone lesions Otherfindings: Postsurgical clips are seen along the right and left paratracheal region to be correlated for prior thyroidectomy. Interval right central hemodialysis catheter removal. IMPRESSION: 1. Central bronchial wall thickening with marked pulmonary vascular congestion and or central interstitial edema. 2. Scattered bilateral platelike atelectasis without dense lobar consolidation. 3. Enlarged cardiac silhouette. at 1233 Reported and signed by: Theo Flowers M.D. CC: Allison VAUGHN Lowell Technologist: Karis Casillas RT(R) Trnscrd Date/Time/By: 04/23/2022 (5123) : By: [email or web address] Orig Print D/T: S: 04/23/2022 (6033) PAGE 1 Signed Report Comprehensive metabolic [id number] 21:49:00 Test Item Value Reference Range Interpretation [...] Cystatin Cresul t, go to [email or web address] ca lculator [Automated message] The [...] . Sodium (test code = 136 mmol/L 765-024 3917-2) Potassium (test code 6.5 mmol/L 3.5-5.3 H Red bl ood cells = 2823-3) were present in the sample upon receiptin the laboratory. A false elevation of K, Phos and LDas well as a false decrease in Glucose may occ ur due to prolonge d contact with re d cells. Verified by repeat analysis. Chloride (test code 99 mmol/L 98-110 = 2074-0) CO2 (test code = 24 mmol/L 20-32 2028-04) Calcium (test code = 9.9 mg/dL 8.6-10.4 50736-3) Protein (test code = 7.1 g/dL 6.1-8.1 2885-2) Albumin, S (test 3.8 g/dL 3.6-5.1 code = 1751-7) Globulin, total See_Comment [Automated (test code = message] The 14992-3) system which generated this result transmitted reference [...] RAC) Organization Information: Site ID: JOVI Name: [facility] Lab Address: [address] [place] [address] Director: Jake Guillen Lab Interpretation Abnormal (test code = 44808-0) [facility] with platelet and [id number] 21:49:00 Test Item Value Reference Range Interpretation Comments WBC (test code = See_Comment [Automated 0590-2) message] The system which generated this result transmitted reference range : 3.8 - 10.8 Thousand/uL. Th e reference range was not used to interpret this result as normal/abnormal . RBC (test code = See_Comment L [Automated 959-8) message] The system which generated this result [...] count (test See_Comment [Autom ated code = 367-3) message] The system which generated this result [...] = Performing RAC) Organization Information: Site ID: A Name: [facility] Address: [address] [place] [address] Director: Jake Guillen Lab Interpretation Abnormal (test code = 75246-1) [facility] [id number] 21:49:00 Test Item Value Reference Range Interpretation Comments Source (test code Serum = 75960-6) Cryptococcal Ag Not Detected Not Detected Culture josue uld be (test [place] = [place] [address]-5) initial positivesample in order to recove r the causative organism forpre cise identification (C. neoformans vs. C. gattii)and potential susceptibility testing. AMIRA (test code = FASTING:NO AMIRA) FASTING: NO RAC (test code = Performing RAC) Organization Information: Site ID: AMD Name: [facility] [place] Address: [address] [place] [address] Dr [place], [place] Director: Myron Mcdonald M.D.,PhD [facility] Clubprehenve metabolic [id number] 21:49:00 Test Item Value Reference Range Interpretation [...] Cystatin Cresul t, go to [email or web address] ne [email or web address]/[email or web address] [email or web address] ca lculator [Automated message] The system [...] . Sodium (test code = 136 mmol/L 084-567 6930-2) Potassium (test code 6.5 mmol/L 3.5-5.3 H [...] Calcium (test code = 9.9 mg/dL 8.6-10.4 60805-3) Protein (test code = 7.1 g/dL 6.1-8.1 2885-2) Albumin, S (test 3.8 g/dL 3.6-5.1 code = 1751-7) Globulin, total See_Comment [Automated (test code = message] The 47993-9) system which generated this result transmitted reference [...] 1920-8) ALT (test code = 6 U/L 01-27 1742-6) AMIRA (test code = FASTING:NO AMIRA) FASTING: NO RAC (test code = Performing RAC) Organization Information: Site ID: RGA Name: [facility] Address: [address] [place] [address] Director: Jake Guillen Lab Interpretation Abnormal (test code = 87776-2) [facility] with platelet and rlblvylirtzu1509-60-09 21:49:00 Test Item Value Reference Range Interpretation Comments WBC (test code = See_Comment [Automated 7390-2) message] The system which generated this result transmitted reference range : 3.8 - 10.8 Thousand/uL. Th e reference range was not used to interpret this result as normal/abnormal . RBC (test code = See_Comment L [Automated 229-8) message] The system which generated this result [...] = Performing RAC) Organization Information: Site ID: A Name: [facility] Address: [address] [place] [address] Director: Jake Guillen Lab Interpretation Abnormal (test code = 63913-6) [facility], [id number] 21:49:00 Test Item Value Reference Range Interpretation Comments Source (test code Serum = 91783-8) Cryptococcal Ag Not Detected Not Detected Culture josue uld be (test code = [place] e [address]-4) initial positivesample in order to recove r the causative organism forpre cise identification (C. neoformans vs. C. gattii)and potential susceptibility testing. AMIRA (test code = FASTING:NO AMIRA) FASTING: NO RAC (test code = Performing RAC) Organization Information: Site ID: AMD Name: [facility]onKathya me[facility] [place] Address: [address] [place] [address] Dr [place], [place] Director: Myron Mcdonald M.D.,PhD [facility]Comprehensive metabolic [id number] 21:49:00 Test Item Value Reference Range Interpretation [...] . Sodium (test code = 136 mmol/L 889-607 0546-2) Potassium (test code 6.5 mmol/L 3.5-5.3 H [...] CO2 (test code = 24 mmol/L 20-32 8-9) Calcium (test code = 9.9 mg/dL 8.6-10.4 59967-2) Protein (test code = 7.1 g/dL 6.1-8.1 2885-2) Albumin, S (test 3.8 g/dL 3.6-5.1 code = 1751-7) Globulin, total See_Comment [Automated (test code = message] The 94410-0) system which generated this result transmitted reference [...] RAC) Organization Information: Site ID: RGA Name: [facility] Lab Address: [address] [place] [address] Director: Jake Guillen Lab Interpretation Abnormal (test code = 26676-7) [facility] with platelet and yjqrwrbmmrbj5269-14-58 21:49:00 Test Item Value Reference Range Interpretation Comments WBC (test code = See_Comment [Automated 6190-2) message] The system which generated this result [...] RAC) Organization Information: Site ID: RGA Name: [facility] Lab Address: [address] [place] [address] Director: Jake Guillen Lab Interpretation Abnormal (test code = 74668-3) [facility], [id number] 21:49:00 Test Item Value Reference Range Interpretation Comments Source (test code Serum = 45339-2) Cryptococcal Ag Not Detected Not Detected Culture josue uld be (test code = [place] e [address]-5) initial positivesample in order to recove r the causative organism forpre cise identification (C. neoformans vs. C. gattii)and potential susceptibility testing. AMIRA (test code = FASTING:NO AMIRA) FASTING: NO RAC (test code = Performing RAC) Organization Information: Site ID: RAGHAV Name: [facility] [place] Address: [address] [place] [address] [place] [address] Director: Myron Mcdonald M.D.,PhD [facility]Com[facility] metabolic [id number] 21:49:00 Test Item Value Reference Range Interpretation Comments Glucose (test code = 194 mg/dL 65-139 H Non-fa sting 2345-7) reference interval BUN (test code = 60 mg/dL 7-25 H 3094-0) Creatinine (test 7.83 mg/dL 0.50-1.05 H Verified by code = 2160-0) repeat analys is. eGFR (test code = 5 See_Comment L The eGFR i s based [...] this result as normal/abnormal . BUN/creatinine ratio 8 See_Comment [Autom ated (test code = 3097-3) message ] The system which generated this result transmitted reference range : 6 - 22 (calc). The reference range was not used to interpr et this result as normal/abnormal . Sodium (test code = 136 mmol/L 874-158 7101-2) Potassium (test code 6.5 mmol/L 3.5-5.3 H Red bl ood cells = 2823-3) were present in the sample upon receiptin the laboratory. A false elevation of K, Phos and LDas well as a false decrease in Glucose may occ ur due to prolonge d contact with re d cells. Verified by repeat analysis. Chloride (test code 99 mmol/L 98-110 = 2074-0) CO2 (test code = 24 mmol/L 20-32 2028-04) Calcium (test code = 9.9 mg/dL 8.6-10.4 49297-4) Protein (test code = 7.1 g/dL 6.1-8.1 2885-2) Albumin, S (test 3.8 g/dL 3.6-5.1 code = 1751-7) Globulin, total 3.3 See_Comment [Automated (test code = message] The 37403-7) system which generated this result transmitted reference range : 1.9 - 3.7 g/dL (calc). The reference range was not used to interpret this result as normal/abnormal . Albumin/globulin 1.2 See_Comment [Automated ratio (test code = message] The 420) system which generated this result transmitted reference [...] RAC) Organization Information: Site ID: RGA Name: [facility] Address: [address] [place] [address] Director: Jake Guillen Lab Interpretation Abnormal (test code = 51296-6) [facility] with platelet and yrkmcfnrnyej2366-55-12 21:49:00 Test Item Value Reference Range Interpretation Comments WBC (test code = 5.3 See_Comment [Automated 6690-2) message] The system which generated this result transmitted reference range : 3.8 - 10.8 Thousand/uL. Th e reference range was not used to interpret this result as normal/abnormal . RBC (test code = 3.70 See_Comment L [Automated 789-8) message] The system [...] % 11.0-15.0 H 788-0) Platelet count (test 241 See_Comment [Autom ated code = 777-3) message] The system which generated this result transmitted reference range : 140 - 400 Thousand/uL. Th e reference range was not used to interpret this result as normal/abnormal . MPV (test code = 10.6 fL 7.5-12.5 776-5) Neutrophils, 3805 See_Comment [Automated absolute (test code message] The = 751-8) system which generated this result transmitted reference range : 1,500 - 7,800 cells/uL. The reference range was not used to interpret this result as normal/abnormal . Lymphocytes, 981 See_Comment [Automated absolute (test code message] The = 731-0) system which generated this result transmitted reference range : 850 - 3,900 cells/uL. The reference range was not used to interpret this result as normal/abnormal . Monocytes, absolute 403 See_Comment [Automa carolina (test code = 742-7) message] The system which generated this result transmitted reference range : 200 - 950 cells/uL. The reference range was not used to interpret this result as normal/abnormal . Eosinophils, 90 See_Comment [Automated absolute (test code message] The = 711-2) system which generated this result transmitted reference range : 15 - 500 cells/uL. The reference range was not used to interpret this result as normal/abnormal . Basophils, absolute 21 See_Comment [Automa carol[place] (test code = 704-7) [...] RAC) Organization Information: Site ID: RGA Name: [facility] Address: [address] [place] [address] Director: Jake Guillen Lab Interpretation Abnormal (test code = 23350-6) [facility], [id number] 21:49:00 Test Item Value Reference Range Interpretation Comments Source (test code Serum = 69783-5) Cryptococcal Ag Not Detected Not Detected Culture josue uld be (test code = [place] e 446[address]-3) initial positivesample in order to recove r the causative organism forpre cise identification (C. neoformans vs. C. gattii)and potential susceptibility testing. 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 [facility] - XR CHEST 2 [id number] 00:00:00 [facility] : 1955 Sex: F FAX: Az Torres [phone] [place]: St: PRE FAX: Orlin Melara [phone] Name: PAOLA MISHRA [facility] Simone Waller : 1955 Age/S: 66/F [address] [place] [address] Unit #: [id number] Loc: [place] [address] Phys: Orlin Farmer MD Acct: [id number] Dis Date: Status: PRE SDC PHONE #: [phone] Exam Date: 01/19/2022 1645 FAX #: [phone] Reason: PREOP EXAMS: CPT CODE: [id number] XR CHEST 2 V 39542 PROCEDURE INFORMATION: Exam: XR Chest Exam date and time: 01/19/2022 4:42 PMAge: 66 years old Clinical indication: Pre- operative exam; Respiratory screening exam; [...] Pleural spaces: No pleural effusion. No pneumothorax. He art/Mediastinum: Cardiomediastinal silhouette is normal in size. Bones/joints: No acute bony finding. IMPRESSION: No acute or active pulmonary findings. at 0002 Reported and signed by: Geoffrey Govea M.D. 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 [facility] GLUCOSE [id number] 11:13:00 Test Item Value Reference Range Interpretation Comments GLUCOSE BEDSIDE (test 148 MG/DL 70-110 H Perfor med by certified code = GLUBED) 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 [facility] GLUCOSE [id number] 07:27:00 Test Item Value Reference Range Interpretation Comments GLUCOSE BEDSIDE (test 105 MG/DL 70-110 N Perfor med by certified code = GLUBED) 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 [facility] BASIC METABOLIC [id number] 07:23:00 Test Item Value Reference Range Interpretation [...] 8.9 mg/dL 8.0-10.5 N CA) CBC W/AUTO [id number] 06:40:00 Test Item Value Reference Range Interpretation [...] REQUIRED (test code NO = MDIFF) GLUCOSE [id number] 06:33:00 Test Item Value Reference Range Interpretation Comments GLUCOSE BEDSIDE (test 66 MG/DL 70-110 L Perfor med by certified code = GLUBED) 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 It is an Emergency Use Authorization ( EUA) testauthorized by the U.S. FDA. 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 Views: 2 views. COMPARISON: No relevant prior studies available. FINDINGS: There is no abnormal radiopaque foreign body. The cardiac silhouette is normal. There isno pneumothorax visible. There is no radiographic evidence of pulmonary edema. There is no radiographic evidence of pneumonia. There is a central line. Its tip is in the region of the superior cavoatrial junction. IMPRESSION: There is no radiographic evidence of acute disease. at 0935 Reported and signed by: Alex Diallo M.D. CC: Az Guerrero MD; Nellie Vines NP Technologist: RT Nancy(Kory) Trnscrd Date/Time/By: 12/08/2021 (0983) : By: [email or web address] Orig Print D/T: S: 12/08/2021 (9236) PAGE 1 Signed Report POC [id number] 22:09:00 Test Item Value Reference Range Interpretation Comments POC glucose (test code 184 mg/dL 65-99 H Opera tor Name: Tristan = 50721-0) GwendolynDevice ID: [id number] Lab Interpretation Abnormal (test code = 84868-1) [facility] [id number] 22:09:00 Test Item Value Reference Range Interpretation Comments POC glucose (test code 184 mg/dL 65-99 H Opera tor Name: Tristan = 97693-3) GwendolynDevice ID: [id number] Lab Interpretation Abnormal (test code = 20568-0) [facility] [id number] 22:09:00 Test Item Value Reference Range Interpretation Comments POC glucose (test code 184 mg/dL 65-99 H Opera tor Name: Tristan = 83951-9) GwendolynDevice ID: [id number] Lab Interpretation Abnormal (test code = 92713-0) [facility] [id number] 22:09:00 Test Item Value Reference Range Interpretation Comments POC glucose (test code 184 mg/dL 65-99 H Opera tor Name: Tristan = 08026-6) GwendolynDevice ID: [id number] Lab Interpretation Abnormal (test code = 72747-4) [facility] [Presence] in Respiratory specimen by FROYLAN with probe [id number] 06:33:34 Test Item Value Reference Range Interpretation Comments SARS-CoV-2 (COVID-19) RNA Not detected [Presence] in Respiratory specimen by FROYLAN with probe detection (test code = 23942-1) Whether patient is employed in a Unknown healthcare setting (test code = 92513-2) Whether the patient has symptoms Unknown related to condition of interest (test code = 00545-3) Whether the patient was Unknown hospitalized for condition of interest (test code = 57584-1) Whether the patient was admitted Unknown to intensive care unit (ICU) for condition of interest (test code = 11965-0) Whether patient resides in a Unknown congregate care setting (test code = 40564-1) status (test code = Unknown 78902-4) Date and time of symptom onset Unknown (test code = 84263-8) [facility] [id number] 02:00:00 Test Item Value Reference Range Interpretation Comments Urine culture (test SEE COMMENT Bacteriu polo screen code = 4945422) negative. [facility]2022-04-19 02:00:00 Test Item Value Reference Range Interpretation Comments Urine culture (test SEE COMMENT Bacteriu polo screen code = 1778628) negative. [facility]2022-04-19 02:00:00 Test Item Value Reference Range Interpretation Comments Urine culture (test SEE COMMENT Bacteriu polo screen code = 0052679) negative. [facility]2022-04-19 02:00:00 Test Item Value Reference Range Interpretation Comments Urine culture (test SEE COMMENT Bacteriu polo screen code = 3579022) negative. [address]2022-03-21 05:10:54 Test Item Value Reference Range Interpretation Comments Ventricular rate (test code = 253) Atrial rate (test code = 255) WI interval (test code = 266) QRSD interval [...] of 14-OCT-2021 11:26,-No significant change was found- [address]2022-03-21 05:10:54 Test Item Value Reference Range Interpretation Comments Ventricular rate (test code = 253) Atrial rate (test code = 255) WI interval (test code = 266) QRSD interval [...] of 14-OCT-2021 11:26,-No significant change was found- [address]2022-03-21 05:10:54 Test Item Value Reference Range Interpretation Comments Ventricular rate (test code = 253) Atrial rate (test code = 255) WI interval (test code = 266) QRSD interval [...] of 14-OCT-2021 11:26,-No significant change was found- [address]2022-03-21 05:10:54 Test Item Value Reference Range Interpretation Comments Ventricular rate (test 75 code = 253) Atrial rate (test code 75 = 255) WI interval (test code 136 = 266) QRSD interval (test 76 code = 260) QT interval (test code 408 = 264) QTC interval (test code 455 = 265) P axis 1 (test code = 86 267) QRS axis 1 (test code = 56 268) T wave axis (test code 87 = 270) EKG impression (test Normal sinus code = 273) rhythm-Right atrial enlargement-Borderline ECG-In automated comparison with ECG of 14-OCT-2021 11:26,-No significant change was found- [facility], (w Contrast, Strain and 3D if needed)2021-10-11 23:35:53 Test Item Value Reference Range Interpretation Comments LA Vol 4C (test code 31.00 ml = 2457469088) LA diam s (test code 4.00 cm = 5002501530) Aortic Root (test 2.73 cm code = 9365114242) AR maxPG (test code = 6216892993) D E excurs (test code = 5470389428) E f slope (test code = 8825314022) E prime lat (test code = 2408297717) E laura sept (test code = 8807859051) PV acc T slope (test code = 4693656049) PALACIOS BP EF (test 63.00 % code = 0236551999) LA VOL 2C (test code 52.00 ml = 7184838214) AoV Area, Vmax (test 1.80 cm2 code = 6100060564) AoV Area, VTI (test 2.21 cm2 code = 4413748848) AoV Mean PG (test mmHg code = 3089970986) AoV Peak PG (test mmHg code = 4791180027) AoV Vmax (test code = 1.96 m/s 8543059422) AoV VTI (test code = 0.37 m 7028431043) BSA Puente (test code = 1.55 m2 8906410754) BSA (test code = 1.52 m2 5195281870) IVS,d (test code = 1.09 cm 3249688424) IVS/LVPW,2D (test code = 4982528673) LV,d (test code = 3.81 cm 7430761695) LV EF,2D (test code = 62.41 % 0658329812) LV EF,A2C (test code 60.34 % = 3708940789) LV EF,A4C (test code 64.47 % = 3090436002) LV EF,BP (test code = 62.54 % 9920918813) Lorne Mayodan,d A2C (test 6.48 cm code = 3538318507) Lorne [place]od[place],d A4C (test 6.43 cm code = 8888261728) Lorne [place]odan,s A2C (test 5.21 cm code = 3837988524) Lorne Mayodan,s A4C (test 5.16 cm code = 5743321339) LV,s (test code = 2.75 cm 1495315784) LV SV,A2C (test code 36.28 % = 9142679595) LV SV,A4C (test code 45.96 % = 7263776018) LV SV,BP (test code = 40.98 % 9178982657) LV Vol,d A2C (test 60.12 mL code = 9148367833) LV Vol,d A4C (test 71.28 ml code = 7380429359) LV Vol,d BP (test 65.54 ml code = 7331817825) LV Vol,s A2C (test 23.84 mL code = 0160114491) LV Vol,s A4C (test 25.32 ml code = 4785921763) LV Vol,s BP (test 24.55 nl code = 2085841458) LVOT area (test code 2.46 cm2 = 2031407356) LVOT Diam,S (test 1.77 cm code = 0901539277) LVOT Vmax (test code 1.38 m/s = 3070235217) LVOT VTI (test code = 0.31 m 6632793400) LVPWD,d (test code = 0.91 cm 2192391815) RVSP (TR) (test code mmHg = 8659781445) TR Vpeak (test code = 2.35 mm/s 1966541124) AR Press Half Time 810.31 ms (test code = 8223830690) MV E A ratio (test code = 6615911725) RA pressure (test mmHg code = 6383800389) TR pk grad (test code mmHg = 5004106568) AoV area i VTI BSA 1.45 cm2/m2 [place] (test code = 8613222004) LV SI MOD BP BSA 26.96 ml/m2 [place] (test code = 9030073340) LV Vol Index s bpmod 43.10 ml/m2 BSA [place] (test code = 1463599473) PV Vmn (test code = 16.15 m/s 4368035249) BMI (test code = 22.67 kg/m2 4584027355) E wave decelartion msec time (test code = 1520413926) MV Peak A Satya (test 1.53 m/s code = 4987821029) MV valve area p 1/2 2.35 cm2 method (test code = 7403464965) MV Peak E Satya (test 0.87 m/s code = 1526341522) MV stenosis pressure 93.76 ms 1/2 time (test code = 2525326078) LVOT stroke volume 0.76 cm3 (test code = 6064746713) AV LVOT peak gradient mmHg (test code = 6360210541) RVSP (test code = mmHg 0905210273) MV mean gradient mmHg (test code = 6817226846) LV SYS VOL (test code 28.32 ml = 8075618033) LV AUGUST VOL (test 62.47 ml code = 4247866451) LA area s A4C (test 14.57 cm2 code = 2526014148) LV SI Teich 2D (test 22.46 ml/m2 code = 4909782201) LV SV Teich 2D (test 34.15 ml code = 5673911423) LV Vol s Teich PSAX 28.32 ml (test code = 2846706576) LVOT SI (test code = 49.71 ml/m2 2381876131) MR peak grad (test mmHg code = 4887109212) MV Vmax (test code = 1.56 m 7049325962) MV VTI Tips (test 0.48 m code = 9482634158) BSA Haycock (test 1.54 m2 code = 5726908826) AoV Cusp sep (test code = 8275360309) AoV Vmn (test code = 8923635032) IVS s 2D (test code = 9107130783) LV FS Teich 2D (test code = 0410289258) MV AE ratio (test code = 1037508444) AR slope (test code = 6122684095) Ar Vmax (test code = 1400889028) LA Ao Ratio Mmode (test code = 2392229666) LV FS Cube 2D (test code = 0311212997) LVOT Vmn (test code = 3076336361) Pt Size (test code = 9544258605) Pt Wt (test code = 9151061630) Ao root annulus (test 2.73 cm code = 7734605341) PV AT (test code = msec 5341617015) Aov area Vmn (test 2.00 cm2 code = 3214990271) LVOT mean grad (test mmHg code = 7955267343) AoV area I VMN bsa 1.32 cm2/m2 (test code = 8603743559) AR DT (test code = msec 3460234692) AR pk grad (test code mmHg = 0393204591) IVS pct thck PLAX 32.63 % (test code = 2278380923) LV SI Cube 2D (test 22.76 ml/m2 code = 9620101105) LV SV Cube 2D (test 34.61 ml code = 1392238377) LV vol d cube 2D 55.45 ml (test code = 3835420420) LV vol s cube 2D 20.85 ml (test code = 7519251949) LVPW pct thck PLAX 50.70 % (test code = 6838330919) LVPW s PLAX (test 1.37 cm code = 8094740458) MV Decel slope (test 2.68 m/s2 code = 5233281063) LA Vol MOD A4C (test 30.78 ml code = 4515513925) Velocity Ratio 0.70 m/s (V1/V2) (test code = 4689) EF (test code = 54.67 % 3613016033) E/A ratio (test code = 2984196233) LV Systolic Volume 15.68 mL/m2 Index (test code = 7199642373) LV Diastolic Volume 39.55 mL/m2 Index (test code = 6587075117) LVOT VTI (CM) (test 31.00 cm code = 1006349227) AMIRA (test code = AMIRA) Left ventricular [...] Normal LV filling pressure.AortaAortic root is normal. [facility], (w Contrast, Strain and 3D if needed)2021-10-11 23:35:53 Test Item Value Reference Range Interpretation Comments LA Vol 4C (test code 31.00 ml = 1966249794) LA diam s (test code 4.00 cm = 2442582022) Aortic Root (test 2.73 cm code = 3884197321) AR maxPG (test code = 56.44 8060568047) D E excurs (test code 1.50 = 1948693827) E f slope (test code 0.03 = 4599528147) E prime lat (test 0.08 code = 0504872906) E laura sept (test 0.06 code = 8101093491) PV acc T slope (test 9.90 code = 2465269191) PALACIOS BP EF (test 63.00 % code = 5282453238) LA VOL 2C (test code 52.00 ml = 0193721145) AoV Area, Vmax (test 1.80 cm2 code = 6461862143) AoV Area, VTI (test 2.21 cm2 code = 5466970059) AoV Mean PG (test 6.44 mmHg code = 9450547100) AoV Peak PG (test 13.87 mmHg code = 4022788858) AoV Vmax (test code = 1.96 m/s 7495564020) AoV VTI (test code = 0.37 m 3249273237) BSA Puente (test code = 1.55 m2 5524303785) BSA (test code = 1.52 m2 4179667830) IVS,d (test code = 1.09 cm 1321574240) IVS/LVPW,2D (test 1.20 code = 0239923423) LV,d (test code = 3.81 cm 3520141891) LV EF,2D (test code = 62.41 % 5667614813) LV EF,A2C (test code 60.34 % = 8888541093) LV EF,A4C (test code 64.47 % = 2089266063) LV EF,BP (test code = 62.54 % 4020082875) Lorne Mayodan,d A2C (test 6.48 cm code = 8068883511) Lorne [place]odan,d A4C (test 6.43 cm code = 2569089329) Lorne Mayodan,s A2C (test 5.21 cm code = 9118654107) Lorne Mayodan,s A4C (test 5.16 cm code = 9545341869) LV,s (test code = 2.75 cm 0109703803) LV SV,A2C (test code 36.28 % = 0260159097) LV SV,A4C (test code 45.96 % = 4775408955) LV SV,BP (test code = 40.98 % 2461911968) LV Vol,d A2C (test 60.12 mL code = 4845138311) LV Vol,d A4C (test 71.28 ml code = 4032143346) LV Vol,d BP (test 65.54 ml code = 0328518021) LV Vol,s A2C (test 23.84 mL code = 4880208236) LV Vol,s A4C (test 25.32 ml code = 4845396710) LV Vol,s BP (test 24.55 nl code = 6571531305) LVOT area (test code 2.46 cm2 = 4569825817) LVOT Diam,S (test 1.77 cm code = 7663918441) LVOT Vmax (test code 1.38 m/s = 5559042891) LVOT VTI (test code = 0.31 m 4732477206) LVPWD,d (test code = 0.91 cm 0646274015) RVSP (TR) (test code 31.04 mmHg = 7890074418) TR Vpeak (test code = 2.35 mm/s 7913856296) AR Press Half Time 810.31 ms (test code = 8356388093) MV E A ratio (test 0.57 code = 2550822569) RA pressure (test 10.00 mmHg code = 7865316716) TR pk grad (test code 21.04 mmHg = 9996397893) AoV area i VTI BSA 1.45 cm2/m2 [place] (test code = 5491063242) LV SI MOD BP BSA 26.96 ml/m2 [place] (test code = 4678808711) LV Vol Index s bpmod 43.10 ml/m2 BSA [place] (test code = 6038032093) PV Vmn (test code = 16.15 m/s 9666150406) BMI (test code = 22.67 kg/m2 1467760611) E wave decelartion 323.31 msec time (test code = 0501698867) MV Peak A Satya (test 1.53 m/s code = 0101010899) MV valve area p 1/2 2.35 cm2 method (test code = 9884019549) MV Peak E Satya (test 0.87 m/s code = 9912330863) MV stenosis pressure 93.76 ms 1/2 time (test code = 2948553120) LVOT stroke volume 0.76 cm3 (test code = 5326966962) AV LVOT peak gradient 7.49 mmHg (test code = 2663158012) RVSP (test code = 31.04 mmHg 0954916536) MV mean gradient 2.81 mmHg (test code = 5203419155) LV SYS VOL (test code 28.32 ml = 5986923800) LV AUGUST VOL (test 62.47 ml code = 1182034255) LA area s A4C (test 14.57 cm2 code = 0913072677) LV SI Teich 2D (test 22.46 ml/m2 code = 0983337064) LV SV Teich 2D (test 34.15 ml code = 0329272512) LV Vol s Teich PSAX 28.32 ml (test code = 5259032266) LVOT SI (test code = 49.71 ml/m2 5539979873) MR peak grad (test 9.72 mmHg code = 1605867169) MV Vmax (test code = 1.56 m 4165296751) MV VTI Tips (test 0.48 m code = 4596430313) BSA Haycock (test 1.54 m2 code = 6659635356) AoV Cusp sep (test 1.84 code = 9120492141) AoV Vmn (test code = 1.14 4683330236) IVS s 2D (test code = 1.45 6651986904) LV FS Teich 2D (test 27.83 code = 5415605048) MV AE ratio (test 1.76 code = 4628249554) AR slope (test code = 1.28 7578932305) Ar Vmax (test code = 3.76 7919872222) LA Ao Ratio Mmode 1.48 (test code = 9822434190) LV FS Cube 2D (test 27.83 code = 1677824976) LVOT Vmn (test code = 0.96 2014666887) Pt Size (test code = 154.94 1593640268) Pt Wt (test code = 54.43 2094197383) Ao root annulus (test 2.73 cm code = 7174263892) PV AT (test code = 79.92 msec 0527945042) Aov area Vmn (test 2.00 cm2 code = 9269329327) LVOT mean grad (test 4.17 mmHg code = 0996576187) AoV area I VMN bsa 1.32 cm2/m2 (test code = 1796926036) AR DT (test code = 2932.25 msec 6381228145) AR pk grad (test code 50.24 mmHg = 5517055386) IVS pct thck PLAX 32.63 % (test code = 9227663874) LV SI Cube 2D (test 22.76 ml/m2 code = 1524361351) LV SV Cube 2D (test 34.61 ml code = 1586757109) LV vol d cube 2D 55.45 ml (test code = 7012614708) LV vol s cube 2D 20.85 ml (test code = 8412599318) LVPW pct thck PLAX 50.70 % (test code = 0866624350) LVPW s PLAX (test 1.37 cm code = 4601604986) MV Decel slope (test 2.68 m/s2 code = 3380670679) LA Vol MOD A4C (test 30.78 ml code = 8697598232) Velocity Ratio 0.70 m/s (V1/V2) (test code = 4689) EF (test code = 54.67 % 8979603161) E/A ratio (test code 0.57 = 8077379511) LV Systolic Volume 15.68 mL/m2 Index (test code = 2488778491) LV Diastolic Volume 39.55 mL/m2 Index (test code = 8696525013) LVOT VTI (CM) (test 31.00 cm code = 9617352873) AMIRA (test code = AMIRA) Left ventricular [...] Normal LV filling pressure.AortaAortic root is normal. [facility] DwldzgldMDGN-GhT-7 (COVID-19) RNA [Presence] in Respiratory specimen by FROYLAN with probe [id number] 21:15:26 Test Item Value Reference Range Interpretation Comments SARS-CoV-2 (COVID-19) RNA Not detected [Presence] in Respiratory specimen by FROYLAN with probe detection (test code = 36410-6) Whether patient is employed in a Unknown healthcare setting (test code = 38660-7) Whether the patient has symptoms Unknown related to condition of interest (test code = 12130-7) Whether the patient was Unknown hospitalized for condition of interest (test code = 68089-5) Whether the patient was admitted Unknown to intensive care unit (ICU) for condition of interest (test code = 01343-5) Whether patient resides in a Unknown congregate care setting (test code = 53129-9) status (test code = Unknown 01924-3) Date and time of symptom onset Unknown (test code = 02662-7) [facility] [id number] 22:24:00 Test Item Value Reference Range Interpretation [...] . Triglycerides (test 124 mg/dL See_Comment [Automa carolian code = 2571-8) message] The system which generated this result transmitted reference range : <=150. The reference range was not used to interpret this result as normal/abnormal . LDL cholesterol mg/dL (calc) Reference ra nge: calculated (test <100 Desira ble code = 86288-9) range <100 m g/dL for primary prevention; <70 mg/dL for patients with C HD or diabetic patients with > or = 2 CHD risk factors. LDL-C is now calculated using the Franklin-Randi calculation, which is a validated novel method providin g better accuracy than the Friedewald equation in the estimation of LDL-C. Franklin S S et al. NIRAJ. 2013;310(19): 1561-4151 (http://educati on .QuestDiagnosti Keen IO .com/faq/KMU552 ) Cholesterol/HDL See_Comment [Automated ratio (test code = message] The 9830-1) system which generated this result transmitted reference range : <5.0 (calc). Th e reference range was not used to interpret this result as normal/abnormal . Non-HDL cholesterol See_Comment For phylicia ents with (test code = diabetes plus 1 55788-4) major ASCVD ris k factor, treatin g [...] RAC) Organization Information: Site ID: RGA [facility] Address: [address] [place] [address] Director: Jake Guillen Lab Interpretation Abnormal (test code = 15063-0) [facility] [id number] 22:24:00 Test Item Value Reference Range Interpretation Comments Amylase (test code = 45 U/L 1798-8) AMIRA (test code = FASTING:UNKNOWN FASTING: AMIRA) UNKNOWN RAC (test code = Performing Organization RAC) Information: Site ID: RGA [facility] Address: [address] [place] [address] Director: Jake Guillen [facility] [id number] 22:24:00 Test Item Value Reference Interpretation Comments [...] for children. [Automated mess age] The system whic h generated this result transmit [place] reference range : <5.7 % of total Hgb. The refere nce range was not u sed to interpret th is result as normal/abnormal . AMIRA (test code = FASTING:UNKNOWN AMIRA) FASTING: UNKNOWN RAC (test code = Performing RAC) Organization Information: Site ID: JOVI [facility] Address: [address] [place] [id number] Director: Jake Guillen Lab Interpretation Abnormal (test code = 77935-1) [facility] [id number] 22:24:00 Test Item Value Reference Range Interpretation Comments Lipase (test code = 47 U/L 7-60 3040-3) AMIRA (test code = FASTING:UNKNOWN FASTING: AMIRA) UNKNOWN RAC (test code = Performing Organization RAC) Information: [facility]: [facility] Name: [facility] Address: [address] [place] [id number] Director: [place] Sarina WilmerWVUMedicine [facility] HospitalVitamin D 25 hydroxy [id number] 22:24:00 Test Item Value Reference Range Interpretation [...] please refer to http://educatio n.Q uestDiagnostics .co m/faq/AHA575 (T his link is being provided for informational/e marissa ational purpose s only.) AMIRA (test code = FASTING:UNKNOWN AMIRA) FASTING: UNKNOWN RAC (test code = Performing RAC) Organization Information: Site ID: JOVI [facility] Address: [address] [place] [phone] Director: Jake RiggsB[facility] PflugervilleMicroalbumin / creatinine urine [id number] 22:24:00 Test Item Value Reference Interpretation Comments Range Creatinine, urine 68 mg/dL 20-275 (mg/dL) (test code = 2161-8) Microalbumin, urine 40.5 mg/dL See Note: Referenc e Range: (test code = Reference [place] Not 09[address]-5) established Res ults verified by rep eat analysis on dilution. Microalbumin/creati See_Comment H The ADA defines nine ratio (test abnormaliti es in code = 9318-7) albuminexcret ion as follows: Albumi pardeep Category Result (mcg/mg creatin ine) Normal to Mildl y increased <30Moderately increased 30-29 9 Severely increa sed > OR = 300 The ADA recommends [...] RAC) Organization Information: Site ID: RGA [facility]: [facility] Address: [address] [place] [phone] Director: Jake Guillen Lab Interpretation Abnormal (test code = 51429-2) [facility] [id number] 22:24:00 Test Item Value Reference Range Interpretation [...] calculated (test <100 Desira ble code = 43460-3) range <100 m g/dL for primary prevention; <70 mg/dL for patients with C HD or diabetic patients with > or = 2 CHD risk factors. LDL-C is now calculated using the Myranda calculation, which is a validated novel method providin g better accuracy than the Friedewald equation in the estimation of LDL-C. Franklin Penaloza S et al. NIRAJ. 2013;310(19): 0197-1642 (http://educati on .QumasDiagnosti Keen IO .com/faq/UOA513 ) Cholesterol/HDL See_Comment [Automated ratio (test code = message] The 9830-1) system which generated this result transmitted reference range : <5.0 (calc). Th e reference range was not used to interpret this result as normal/abnormal . Non-HDL cholesterol See_Comment For phylicia ents with (test code = diabetes plus 1 80947-6) major ASCVD ris k factor, treatin g [...] RAC) Organization Information: Site ID: JOVI [facility]: [facility] Address: [address] [place] [phone] Director: Jake Guillen Lab Interpretation Abnormal (test code = 80884-1) [facility] HospitalAmylase [id number] 22:24:00 Test Item Value Reference Range Interpretation Comments Amylase (test code = 45 U/L 1798-8) AMIRA (test code = FASTING:UNKNOWN FASTING: AMIRA) UNKNOWN RAC (test code = Performing Organization RAC) Information: Site ID: [facility] Name: [facility] Address: [address] [place] [phone] Director: Jake Guillen [facility] HospitalHemoglobin [id number] 22:24:00 Test Item Value Reference Interpretation Comments [...] for children. [Automated mess age] The system Wiki-PR generated this result transmit [place] reference range : <5.7 % of total Hgb. The refere nce range was not u sed to interpret th is result as normal/abnormal . AMIRA (test code = FASTING:UNKNOWN AMIRA) FASTING: UNKNOWN RAC (test code = Performing RAC) Organization Information: Site ID: RGA [facility] Address: [address] [place] [address] Director: Jake Guillen Lab Interpretation Abnormal (test code = 41019-4) [facility] HospitalLip[facility] [id number] 22:24:00 Test Item Value Reference Range Interpretation Comments Lipase (test code = 47 U/L 760 3040-3) AMIRA (test code = FASTING:UNKNOWN FASTING: AMIRA) UNKNOWN RAC (test code = Performing Organization RAC) Information: Site ID: RGA [facility]: [facility] Address: [address] [place] [address] Director: Jake Guillen [facility] HospitalVitamin D 25 hydroxy [id number] 22:24:00 Test Item Value Reference Range Interpretation [...] please refer to http://educatio n.Q uestDiagnostics .co m/faq/XUJ694 (T his link is being provided for informational/e marissa ational purpose s only.) AMIRA (test code = FASTING:UNKNOWN AMIRA) FASTING: UNKNOWN RAC (test code = Performing RAC) Organization Information: Site ID: ROMINAA Name: [facility] Address: [address] [place] [phone] Director: Jake Guillen [facility] HospitalMicroalbumin / creatinine urine [id number] 22:24:00 Test Item Value Reference Interpretation Comments Range Creatinine, urine 68 mg/dL 20-275 (mg/dL) (test code = 2161-8) Microalbumin, urine 40.5 mg/dL See Note: Referenc e Range: (test code = Reference Range Not 85814-5) established Res ults verified by rep eat [...] RAC) Organization Information: Site ID: RGA [facility]: [facility] Address: [address] [place] [phone] Director: Jake Guillen Lab Interpretation Abnormal (test code = 37111-0) [facility] HospitalLip[facility] [id number] 22:24:00 Test Item Value Reference Range Interpretation [...] calculated (test <100 Desira ble code = 53722-3) range <100 m g/dL for primary prevention; <70 mg/dL for patients with C HD or diabetic patients with > or = 2 CHD risk factors. LDL-C is now calculated using the Myranda calculation, which is a validated novel method providin g better accuracy than the Friedewald equation in the estimation of LDL-C. Franklin S S et al. NIRAJ. 2013;310(19): 2409-3071 (http://educati on .QumasDiagnosti Keen IO .com/faq/LZY672 ) Cholesterol/HDL See_Comment [Automated ratio (test code = message] The 9830-1) system which generated this result transmitted reference range : <5.0 (calc). Th e reference range was not used to interpret this result as normal/abnormal . Non-HDL cholesterol See_Comment For phylicia ents with (test code = diabetes plus 1 77941-5) major ASCVD ris k factor, treatin g [...] RAC) Organization Information: Site ID: RGA [facility]: [facility] Address: [address] [place] [phone] Director: Jake Guillen Lab Interpretation Abnormal (test code = 96250-1) [facility] HospitalAmylase [id number] 22:24:00 Test Item Value Reference Range Interpretation Comments Amylase (test code = 45 U/L 21-101 1798-8) AMIRA (test code = FASTING:UNKNOWN FASTING: AMIRA) UNKNOWN RAC (test code = Performing Organization RAC) Information: Site ID: JOVI Name: [facility] Address: [address] [place] [phone] Director: Jake Guillen [facility] HospitalHemoglobin [id number] 22:24:00 Test Item Value Reference Interpretation Comments [...] for children. [Automated mess age] The system Wiki-PR generated this result transmit [place] reference range : <5.7 % of total Hgb. The refere nce range was not u sed to interpret th is result as normal/abnormal . AMIRA (test code = FASTING:UNKNOWN AMIRA) FASTING: UNKNOWN RAC (test code = Performing RAC) Organization Information: Site ID: JOVI [facility] Address: [address] [place] [phone] Director: Jake Guillen Lab Interpretation Abnormal (test code = 86246-3) [facility] HospitalLip[facility] [id number] 22:24:00 Test Item Value Reference Range Interpretation Comments Lipase (test code = 47 U/L 7-60 3040-3) AMIRA (test code = FASTING:UNKNOWN FASTING: AMIRA) UNKNOWN RAC (test code = Performing Organization RAC) Information: Site ID: JOVI Name: [facility] Address: [address] [place] [phone] Director: [facility] HospitalVitamin D 25 hydroxy [id number] 22:24:00 Test Item Value Reference Range Interpretation [...] please refer to http://educatio n.Q uestDiagnostics .co m/faq/LPX315 (T his link is being provided for informational/e marissa ational purpose s only.) AMIRA (test code = FASTING:UNKNOWN AMIRA) FASTING: UNKNOWN RAC (test code = Performing RAC) Organization Information: Site ID: RGA Name: [facility] Address: [address] [place] [phone] Director: [facility] HospitalMicroalbumin / creatinine urine [id number] 22:24:00 Test Item Value Reference Interpretation Comments Range Creatinine, urine 68 mg/dL 20-275 (mg/dL) (test code = 2161-8) Microalbumin, urine 40.5 mg/dL See Note: Referenc e Range: (test code = Reference Range Not 40846-3) established Res ults verified by rep eat analysis on dilution. Microalbumin/creati See_Comment H The ADA defines nine ratio (test abnormaliti es in code = 9318-7) albuminexcret ion as follows: Albumi pardeep Category Result (mcg/mg creatin ine) Normal to Mildl y increased <30Moderately increased 30-2 99 Severely increa sed > OR = 300 [...] RAC) Organization Information: Site ID: RGA [facility]: [facility] Address: [address] [place] [phone] Director: Jake Guillen Lab Interpretation Abnormal (test code = 96240-4) [facility] [id number] 17:26:55 Test Item Value Reference Range Interpretation Comments POC glucose (test code 367 mg/dL 65-99 [facility] Opera [facility] Name: Chaim = 21013-6) [facility] [id number] Lab Interpretation Abnormal (test code = 43503-9) [facility]-CoV-[facility] (COVID-19) RNA [Presence] in Respiratory specimen by FROYLAN with probe [id number] 04:09:00 Test Item Value Reference Range Interpretation Comments SARS-CoV-2 (COVID-19) RNA Not detected Not-Detected [Presence] in Respiratory specimen by FROYLAN with probe detection (test code = 02949-2) Whether patient is employed in a healthcare setting (test code = 38782-8) Whether the patient has symptoms related to condition of interest (test code = 08158-0) Patient was hospitalized because of this condition (test code = 41025-2) Whether the patient was admitted to intensive care unit (ICU) for condition of interest (test code = 54560-0) Whether patient resides in a congregate care setting (test code = 02385-9) [facility] [id number] 05:57:42 Test Item Value Reference Range Interpretation Comments Urine culture (test SEE COMMENT Bacteriu polo screen code = 1596646) negative. [facility] RNA [Presence] in Respiratory specimen by FROYLAN with probe [id number] 18:33:15 Test Item Value Reference Range Interpretation Comments SARS-CoV-2 (COVID-19) RNA Not detected Not-Detected [Presence] in Respiratory specimen by FROYLAN with probe detection (test code = 63251-0) Whether patient is employed in a healthcare setting (test code = 78522-2) Whether the patient has symptoms related to condition of interest (test code = 45068-7) Patient was hospitalized because of this condition (test code = 42466-6) Whether the patient was admitted to intensive care unit (ICU) for condition of interest (test code = 52913-0) Whether patient resides in a congregate care setting (test code = 06130-9) TRISHA Barnhart [id number] 18:15:13 Test Item Value Reference Range Interpretation Comments Fungus culture No growth Specimen isolate (test after 4 weeks InformationSp ecimen code = 1441) of Source: SinusSp ecimen incubation. [facility]2021[facility] 18:12:52 Test Item Value Reference Range Interpretation Comments SUPPLIER NAME (test XMED Oxygen and code = 6415) Medical SUPPLIER PHONE (test [phone] code = 6416) ORDER STATUS (test code Delivery Successful = 6417) DELIVERY NOTE (test code = 6419) REQUESTED DELIVEY DATE 09/22/2020 (test code = 6420) ITEM DESCRIPTION (test Jada An Junior Qty: 1 code = 6423) EXPECTED DELIVERY DATE 09/24/2020 (test code = 6421) ACTUAL DELIVERY DATE 09/24/2020 (test code = 6422) [facility] 12 [id number] 23:54:03 Test Item Value Reference Range Interpretation Comments Ventricular rate (test code = 253) Atrial rate (test code = 255) WI interval (test code = 266) QRSD interval [...] of 30-AUG-2020 14:17,-Questionable change in QRS axis- Jewish YdczcmawZCEW-BgE-0 (COVID-19) RNA [Presence] in Respiratory specimen by FROYLAN with probe [id number] 19:48:29 Test Item Value Reference Range Interpretation Comments SARS-CoV-2 (COVID-19) RNA Not detected Not-Detected [Presence] in Respiratory specimen by FROYLAN with probe detection (test code = 50188-1) TRISHA BROCKAnaerobic [id number] 15:06:25 Test Item Value Reference Range Interpretation Comments Anaerobic No anaerobic Specimen culture isolate organisms InformationS pecimen (test code = isolated. Source: SinusSp ecimen 552) [facility] [id number] 13:51:27 Test Item Value Reference Range Interpretation Comments Fungus smear No fungi Specimen (test code = observed. InformationSpec imen Source: 1443) SinusSpecimen S ite: Tyler CortezARS-CoV-2 (COVID-19) IgG+IgM Ab [Presence] in Serum or Plasma by Xfqzsxwlpjo8564-28-23 06:21:00 Test Item Value Reference Range Interpretation Comments SARS-CoV-2 (COVID-19) IgG+IgM Ab Positive [Presence] in Serum or Plasma by Immunoassay (test code = 91464-3) TRISHA PALRS-CoV-2 (COVID-19) RNA [Presence] in Respiratory specimen by FROYLAN with probe [id number] 12:03:17 Test Item Value Reference Range Interpretation Comments SARS-CoV-2 (COVID-19) RNA [Presence] Detected Not-Detected in Respiratory specimen by FROYLAN with probe detection (test code = 71728-0) TRISHA BROCKTISSUE [id number] 16:45:00 Test Item Value Reference Range Interpretation Comments LAB AP CPT CODE (ASHLEY) (test code = 94516 2749) TACROLIMUS [id number] 09:09:00 Test Item Value Reference Range Interpretation Comments TACROLIMUS BLOOD (ASHLEY) (test 6.8 ng/mL 10.0-20.0 L code = 657) POCT-GLUCOSE [id number] 07:33:00 Test Item Value Reference Range Interpretation Comments POC-GLUCOSE METER 138 mg/dL 70-110 H TESTED AT [facility] 6720 (ASHLEY) (test code = [place] 1538) [address] BASIC METABOLIC [id number] 05:08:00 Test Item Value Reference Range Interpretation [...] PATIEN TS. CBC W/PLT COUNT & AUTO [id number] 04:51:00 Test Item Value Reference Range Interpretation [...] L 0.00-0.20 (test code = 417) 0.00POCT-GLUCOSE [id number] 01:09:00 Test Item Value Reference Range Interpretation Comments POC-GLUCOSE METER 97 mg/dL 70-110 TESTED AT [place] [address] ([facility]) (test code = [place] [facility] [address]) POCT-GLUCOSE [id number] 21:30:00 Test Item Value Reference Range Interpretation Comments POC-GLUCOSE METER 424 mg/dL 70-110 HH Notified R Naomi PILLAI/TESTED ([facility]) (test code = AT [place] [address] [place] [address]38) [facility] 7[address] 0 POCT-GLUCOSE [id number] 17:04:00 Test Item Value Reference Range Interpretation Comments POC-GLUCOSE METER 198 mg/dL 70-110 H TESTED AT [place] [address] ([facility]) (test code = [place] [facility] 1538) [address] POCT-GLUCOSE [id number] 12:51:00 Test Item Value Reference Range Interpretation Comments POC-GLUCOSE METER 205 mg/dL 70-110 H TESTED AT [place] [address] ([facility]) (test code = [place] 1538) [address] TACROLIMUS [id number] 12:35:00 Test Item Value Reference Range Interpretation Comments TACROLIMUS BLOOD (BEAKER) (test 5.9 ng/mL 10.0-20.0 L code = 657) POCT-GLUCOSE [id number] 08:32:00 Test Item Value Reference Range Interpretation Comments POC-GLUCOSE METER 60 mg/dL 70-110 L TESTED AT [place] [address] ([facility]) ([facility] = [facility] [address]38) POCT-GLUCOSE [id number] 21:41:00 Test Item Value Reference Range Interpretation Comments POC-GLUCOSE METER 202 mg/dL 70-110 H TESTED AT [place] [address] ([facility]) (test code = [facility] 1538) [address] POCT-GLUCOSE [id number] 17:36:00 Test Item Value Reference Range Interpretation Comments POC-GLUCOSE METER 191 mg/dL 70-110 H TESTED AT [place] [address] ([facility]) (test code = [facility] 1538) [address] POCT-GLUCOSE [id number] 11:01:00 Test Item Value Reference Range Interpretation Comments POC-GLUCOSE METER 232 mg/dL 70-110 H TESTED AT [place] [address] ([facility]) (test code = [facility] 1538) [address] TACROLIMUS [id number] 10:16:00 Test Item Value Reference Range Interpretation Comments TACROLIMUS BLOOD (BEAKER) (test 8.3 ng/mL 10.0-20.0 L code = 657) POCT-GLUCOSE [id number] 08:16:00 Test Item Value Reference Range Interpretation Comments POC-GLUCOSE METER 366 mg/dL 70-110 H TESTED AT [place] [address] ([facility]) (test code = [facility] 1538) [address] BASIC METABOLIC [id number] 06:57:00 Test Item Value Reference Range Interpretation [...] APPLICABLE FOR DIALYSIS PATIEN TS. HEMOGLOBIN AND [id number] 06:40:00 Test Item Value Reference Range Interpretation Comments HEMOGLOBIN (BEAKER) (test code = 11.4 GM/DL 12.0-15.0 L 410) HEMATOCRIT (BEAKER) (test code = 36.1 % 36.0-45.0 411) POCT-GLUCOSE [id number] 23:30:00 Test Item Value Reference Range Interpretation Comments POC-GLUCOSE METER 274 mg/dL 70-110 H TESTED AT [facility] 6720 (BEAKER) (test code = [place] [facility] 1538) [address] BASIC METABOLIC [id number] 18:49:00 Test Item Value Reference Range Interpretation [...] APPLICABLE FOR DIALYSIS PATIEN TS. HEMOGLOBIN AND [id number] 18:35:00 Test Item Value Reference Range Interpretation Comments HEMOGLOBIN (BEAKER) (test code = 11.5 GM/DL 12.0-15.0 L 410) HEMATOCRIT (BEAKER) (test code = 35.6 % 36.0-45.0 L 411) BASIC METABOLIC [id number] 12:08:00 Test Item Value Reference Range Interpretation [...] 0-0 (BEAKER) (test code = 413) 0.00POTASSIUM-STAT [id number] 11:43:00 Test Item Value Reference Range Interpretation Comments POTASSIUM (BEAKER) (test code = 4.3 meq/L 3.6-5.5 379) POCT-GLUCOSE [id number] 11:34:00 Test Item Value Reference Range Interpretation Comments POC-GLUCOSE METER 82 mg/dL 70-110 TESTED AT [facility] 67 (BEAKER) (test code = [place] [facility] [address]) URINE [id number] 11:19:00 Test Item Value Reference Range Interpretation Comments CULTURE (BEAKER) (test 20-29,000 col/mL skin code = 1095) tea URINALYSIS W/ [id number] 15:16:00 Test Item Value Reference Range Interpretation [...] = 2795) CBC W/PLT COUNT & AUTO [id number] 14:56:00 Test Item Value Reference Range Interpretation [...] 0.00-0.20 (test code = 417) 0.00BASIC METABOLIC [id number] 14:55:00 Test Item Value Reference Range Interpretation [...] S NOT APPLICABLE FOR DIALYSIS PATIEN TS. [id number] 14:51:00 Test Item Value Reference Range Interpretation Comments PARTIAL THROMBOPLASTIN TIME 30.7 seconds 22.5-36.0 (BEAKER) (test code = 760) PROTHROMBIN TIME/[id number] 14:50:00 Test Item Value Reference Range Interpretation [...]
--- NOTE | 2022-09-28 15:53 | RAD REPORT ---
EXAM DESCRIPTION: RAD - Knee Right 3 View - 09/28/2022 3:37 pm CLINICAL HISTORY: PAIN COMPARISON: <Comparisons> FINDINGS/IMPRESSION: No acute fracture. No malalignment. Small knee effusion which is nonspecific. P eripheral vascular calcifications. Mild patellofemoral spurring
--- NOTE | 2022-09-28 16:09 | EDPHYS ---
Physician Documentation [facility] Name: Paola Mishra Age: 67 yrs Sex: Female : 1955 Arrival Date: 09/28/2022 Time: 14:29 Bed 23 Private MD: ED Physician Rishi Johnson HPI: 09/28 16:09 This 67 yrs old Female presents to ER via Wheelchair with complaints of Leg ms3 Pain, Leg Swelling. 16:09 67-year-old female with past medical history of diabetes, end-stage renal disease with ms3 dialysis on Tuesday, Tuesday, Tuesday, hyperlipidemia, hypertension, fungal meningitis presents status post falling in her yard at her house after tripping. Patient states she is having 10/10 right knee pain. Patient states her tetanus was updated 3 years ago.. Historical: - Allergies: 15:19 NKDA; ap3 - PMHx: 15:19 Diabetes - IDDM; ESRD; fungal meningitis; Hyperlipidemia; Hypertension; kidney ap3 transplant; - Immunization history:: Client reports receiving the 2nd dose of the Covid vaccine, Last tetanus immunization: up to date Flu vaccine is up to date. - Social history:: Smoking status: Patient denies any tobacco usage or history of. ROS: 16:09 Constitutional: Negative for fever, and chills. Neck: Negative for injury, pain, and ms3 swelling, Cardiovascular: Negative for chest pain, and palpitations. Respiratory: Negative for shortness of breath, cough, wheezing, and pleuritic chest pain, Abdomen/GI: Negative for abdominal pain, nausea, vomiting, diarrhea, and constipation. 16:09 MS/extremity: Positive for pain, of the right knee. 16:09 All other systems are negative. Exam: 16:11 Constitutional: This is a well developed, well nourished patient who is awake, alert, ms3 and in no acute distress. Head/Face: Normocephalic, atraumatic. Neck: Trachea midline, no cervical lymphadenopathy. Supple, full range of motion without nuchal rigidity, or vertebral point tenderness. No Meningismus. Chest/axilla: Normal chest wall appearance and motion. Nontender with no deformity. Cardiovascular: Regular rate and rhythm with a normal S1 and S2. No gallops, murmurs, or rubs. Normal PMI, no JVD. No pulse deficits. Respiratory: Lungs have equal breath sounds bilaterally, clear to auscultation and percussion. No rales, rhonchi or wheezes noted. No increased work of breathing, no retractions or nasal flaring. Abdomen/GI: Soft, non-tender, with normal bowel sounds. No distension or tympany. No guarding or rebound. No evidence of tenderness throughout. 16:11 Musculoskeletal/extremity: Extremities: noted in the right knee: abrasion, decreased ROM, pain, tenderness. 16:11 Skin: abrasion to right knee. Vital Signs: 15:18 BP 152 / 75; Pulse 81; Resp 19; Temp 98.7; Pulse Ox 95% ; Weight 60.78 kg; ap3 16:37 BP 148 / 77; Pulse 79; Resp 18; Pulse Ox 100% on R/A; kr3 MDM: 15:11 Patient medically screened. ms3 16:11 Differential diagnosis: closed fracture, contusion, abrasion. Data reviewed: vital ms3 signs, nurses notes, radiologic studies, plain films. I considered the following discharge prescriptions or medication management in the emergency department Medications were administered in the Emergency Department. See MAR. Independent interpretation of the following test(s) in the Emergency Department X-Ray: My interpretation is Right knee x-ray image reviewed by me: Negative. Counseling: I had a detailed discussion with the patient and/or guardian regarding: the historical points, exam findings, and any diagnostic results supporting the discharge/admit diagnosis, radiology results, the need for outpatient follow up, to return to the emergency department if symptoms worsen or persist or if there are any questions or concerns that arise at home. ED course: Discussed x-ray findings with patient and her . Patient to follow-up with Dr. Hernandez in 2 to 3 days. Patient and her understand and agree with plan. All questions were answered. Return precautions discussed include worsening pain, worsening symptoms, or any other concerns.. 09/28 15:12 Order name: Knee Right 3 View XRAY; Complete Time: 16:02 ms3 09/28 16:03 Order name: Knee Immobilizer; Complete Time: 16:25 ms3 Administered Medications: 16:16 Drug: HYDROcodone-acetaminophen 5 mg-325 mg 1 tabs Route: PO; kr3 16:40 Follow up: Response: No adverse reaction; RASS: Alert and Calm (0) kr3 Disposition Summary: 09/28/22 16:08 Discharge Ordered Location: Home ms3 Condition: Stable ms3 Diagnosis - Fall on same level, unspecified ms3 - Pain in right knee ms3 - Abrasion, right knee ms3 - Effusion, right knee ms3 Followup: ms3 - With: Fortunato Hernandez MD - When: 2 - 3 days - Reason: Recheck today's complaints Discharge Instructions: - Discharge Summary Sheet ms3 - Crutch Use, Adult ms3 - How to Use a Knee Brace ms3 - Knee Effusion ms3 - Musculoskeletal Pain ms3 - Acute Knee Pain, Adult ms3 Forms: - Medication Reconciliation Form ms3 - Thank You Letter ms3 - Antibiotic Education ms3 - Prescription Opioid Use ms3 Signatures: Dispatcher [employer] Rosa M Galaviz RN RN ap3 Rishi Johnson DO DO ms3 Allie Posada RN RN kr3 Corrections: (The following items were deleted from the chart) 16:25 16:03 Crutches ordered. ms3 kr3
--- NOTE | 2022-09-28 16:09 | ER ---
Nurse's Notes [facility] Name: Paola Mishra Age: 67 yrs Sex: Female : 1955 Arrival Date: 09/28/2022 Time: 14:29 Bed 23 Private MD: Diagnosis: Fall on same level, unspecified;Pain in right knee;Abrasion, right knee;Effusion, right knee Presentation: 09/28 15:18 Chief complaint: Patient states: she is having right knee/leg pain after falling ap3 earlier today out of her chair onto concrete. Coronavirus screen: At this time, the client does not indicate any symptoms associated with coronavirus-19. Ebola Screen: No symptoms or risks identified at this time. Initial Sepsis Screen: Does the patient meet any 2 criteria? No. Patient's initial sepsis screen is negative. Does the patient have a suspected source of infection? No. Patient's initial sepsis screen is negative. Risk Assessment: Do you want to hurt yourself or someone else? Patient reports no desire to harm self or others. Onset of symptoms was September 28, 2022. 15:18 Method Of Arrival: Wheelchair ap3 15:20 Acuity: NOHELIA 4 ap3 Triage Assessment: 15:19 General: Appears uncomfortable, Behavior is crying. Pain: Complains of pain in right ap3 leg. Neuro: Level of Consciousness is awake, alert, obeys commands, Oriented to person, place, time, situation, Appropriate for age. Cardiovascular: Patient's skin is warm and dry. Respiratory: Airway is patent Respiratory effort is even, unlabored, Respiratory pattern is regular, symmetrical. Musculoskeletal: Reports pain in right leg. Historical: - Allergies: 15:19 NKDA; ap3 - PMHx: 15:19 Diabetes - IDDM; ESRD; fungal meningitis; Hyperlipidemia; Hypertension; kidney ap3 transplant; - Immunization history:: Client reports receiving the 2nd dose of the Covid vaccine, Last tetanus immunization: up to date Flu vaccine is up to date. - Social history:: Smoking status: Patient denies any tobacco usage or history of. Screenin:20 Abuse screen: Denies threats or abuse. Nutritional screening: No deficits noted. ap3 Tuberculosis screening: No symptoms or risk factors identified. 16:38 [facility] ED Fall Risk Assessment (Adult) History of falling in the last 3 months, kr3 including since admission Yes- single mechanical fall (1 pt) Confusion or Disorientation No (0 pts) Intoxicated or Sedated No (0 pts) Impaired Gait No (0 pts) Mobility Assist Device Used No (0 pt) Altered Elimination No (0 pt) Score/Fall Risk Level 0 - 2 = Low Risk Oriented to surroundings, Maintained a safe environment, Educated pt \T\ family on fall prevention, incl call for assistance when getting out of bed, Assessed \T\ reinforced patient's understanding of fall precautions, Hourly rounding (assess needs \T\ fall precautionary measures) done. Assessment: 15:30 General: Appears distressed, uncomfortable, Behavior is cooperative, appropriate for kr3 age, fussy. Pain: Complains of pain in right leg. Neuro: Level of Consciousness is awake, alert, obeys commands, Oriented to person, place, time, situation. Cardiovascular: Patient's skin is warm and dry. Respiratory: Airway is patent. GI: No signs and/or symptoms were reported involving the gastrointestinal system. : No signs and/or symptoms were reported regarding the genitourinary system. EENT: No signs and/or symptoms were reported regarding the EENT system. Derm: No signs and/or symptoms reported regarding the dermatologic system. Musculoskeletal: Reports pain in right leg. 16:37 Reassessment: No changes from previously documented assessment. Patient is alert, kr3 oriented x 3, equal unlabored respirations, skin warm/dry/pink. Vital Signs: 15:18 BP 152 / 75; Pulse 81; Resp 19; Temp 98.7; Pulse Ox 95% ; Weight 60.78 kg; ap3 16:37 BP 148 / 77; Pulse 79; Resp 18; Pulse Ox 100% on R/A; kr3 ED Course: 14:29 Patient arrived in ED. rg4 14:59 Rishi Johnson DO is Attending Physician. ms3 15:20 Triage completed. ap3 15:20 Arm band placed on right wrist. ap3 15:20 Patient has correct armband on for positive identification. Adult w/ patient. ap3 15:39 Knee Right 3 View XRAY In Process Unspecified. EDMS 16:07 Fortunato Arriaga MD is Referral Physician. ms3 16:11 Allie Posada RN is Primary Nurse. kr3 16:37 No provider procedures requiring assistance completed. Patient did not have IV access kr3 during this emergency room visit. Administered Medications: 16:16 Drug: HYDROcodone-acetaminophen 5 mg-325 mg 1 tabs Route: PO; kr3 16:40 Follow up: Response: No adverse reaction; RASS: Alert and Calm (0) kr3 Medication: 16:38 VIS not applicable for this client. kr3 Outcome: 16:08 Discharge ordered by . ms3 16:38 Discharged to home via wheelchair, with family. kr3 16:38 Condition: stable 16:38 Discharge instructions given to patient, family, Instructed on discharge instructions, follow up and referral plans. Demonstrated understanding of instructions, follow-up care. 16:40 Patient left the ED. kr3 Signatures: Dispatcher [employer] EDCecily Candelaria4 Rosa M Early, RN RN ap3 Rishi Johnson, DO ms3 Allie Posada RN RN kr3
[2022-09-28] MEDS ORDERED: HYDROCODONE/APAP 5/325 MG TAB ONE (16:18)
[2022-09-28 16:58] VITALS: TEMP 98.7
[2022-09-28 16:59] VITALS: BP 148/77; O2SAT 100
== END 2022-09-28 16:40 | disposition home or self-care (01) ==
LOC: ER 14:25
DX: S80.211A Abrasion, right knee, initial encounter (principal); M25.461 Effusion, right knee; W18.30XA Fall on same level, unspecified, initial encounter
CPT/HCPCS: 99283

== ENCOUNTER 2022-12-14 16:17 | Inpatient (IN) | payer OTHER ==
--- OUTSIDE RECORDS SUMMARY | 2022-12-14 16:32 | XMS REPORT | Continuity of Care Document ---
:1955 Author Organization [facility] t Address [address] [place] [address] Care Team Providers Name Role Phone Rebecca PILLAI, Regan Prabhakar Primary Care Physician [phone] Lexis MUNSON Attending Clinician Unavailable Az Francois Attending Clinician Unavailable Misty SORIANO, Brook Attending Clinician Unavailable Valentine PILLAI, Chacho Del Cid Attending Clinician [phone] Kye MENDOZA, Puma Attending Clinician Maya Stark MD Attending Clinician Nabila Alexandra Attending Clinician Unavailable Yolie SORIANO, Alex Attending Clinician Unavailable Onelia Bailey MD Attending Clinician Sanam Bella Attending Clinician Unavailable Abimbola Khan RN Attending Clinician Unavailable Marcella Stewart Attending Clinician Unavailable Courtney Pike RN Attending Clinician Unavailable Billie Palmer RN Attending Clinician Unavailable Home PILLAI, Inder Roach Attending Clinician Dane SORIANO, Thuy Attending Clinician Unavailable Chaim PILLAI, Laina Moon Attending Clinician Oralia PILLAI, Iron Attending Clinician Aguila PILLAI, Raghu Begum Attending Clinician Uzma Nieves MA Attending Clinician Unavailable Lupillo PILLAI, Jhon Attending Clinician Yolanda PILLAI, Az French Attending Clinician [phone] Charly DO, Kayce Horn Attending Clinician Adele PILLAI, Juan Miguel Attending Clinician Cookie PILLAI, Reynaldo Attending Clinician Magnolia Gonzalez MD Attending Clinician Rishi Traylor MD Attending Clinician MD REYNALDO NAVARRETE Attending Clinician Unavailable Devin Jackson MD Attending Clinician Artur SORIANO, Maki Attending Clinician Unavailable Lona Palma Attending Clinician Unavailable Tanya MENDOZA, Jus Negrete Attending Clinician Kiley Ramírez RN Attending Clinician Unavailable Sharifa Hansen MD Attending Clinician Paola Lobato MD Attending Clinician [phone] Demetra Short CRNA Attending Clinician MD SHARIFA HANSEN Attending Clinician Unavailable CORNELIO CERVANTES Attending Clinician Unavailable Sophia Rosales MA Attending Clinician Unavailable Jasmyn Angel Attending Clinician Unavailable Kezia Peck Attending Clinician Unavailable Darline Serrano MA Attending Clinician Unavailable Lazara Ha MA Attending Clinician Unavailable Yuliana Billy RN Attending Clinician Unavailable Nikky Combs MD Attending Clinician Suellen PILLAI, [facility] Attending Clinician MD NIKKY COMBS Attending Clinician Unavailable BHUMI CROWE Attending Clinician Unavailable YULISA HARVEY Attending Clinician Unavailable KYRA PATEL Attending Clinician Unavailable Physician, No Primary or Family Admitting Clinician UnavailMarcella Frank Admitting Clinician Unavailable THAO DAI (DIRECTOR PAID MEDIA) Admitting Clinician Unavailable IRON BARTON Admitting Clinician Unavailable JUAN MIGUEL ANGULO Admitting Clinician Unavailable MD JUAN MIGUEL ANGULO Admitting Clinician Unavailable SHARIFA HANSEN Admitting Clinician Unavailable MD SHARIFA HANSEN Admitting Clinician Unavailable NIKKY COMBS Admitting Clinician Unavailable MD NIKKY COMBS Admitting Clinician Unavailable KYRA PATEL Admitting Clinician Unavailable Payers Payer Name Policy Type Policy Number Effective Date Expiration Date Tremaine rashid ESTELLINE 53 [id number] 2021 Common HEALTHC[employer] DUAL 00:00:00 [facility] 111 [id number] Common HEALTHCARE [facility] - [facility] MEDIC[facility] Problems Condition Condition Condition Status Onset [...] dialysis dialysis Uremia Uremia Disease Active Methodi 3- st 00:00: Hospita 00 l CKD CKD Disease Active Methodi (chronic (chronic 10-09 kidney kidney 00:00: Hospita disease) disease) 00 l stage 5, stage 5, GFR less GFR less than 15 than 15 ml/min ml/min Generalize Generalize Disease Active M ethodi d weakness d weakness 3- st 00:00: Hospita 00 l JOE (acute JOE (acute Disease Active M ethodi kidney kidney 1-25 st injury) injury) 00:00: Hospita 00 l Age-relate Age-relate Disease Active M ethodi d d 7-21 st osteoporos osteoporos 00:00: Ho spita is without is without 00 l current current pathologic pathologic al al fracture fracture Meningitis Meningitis Disease Active M ethodi , , 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 00:00: Ho spita al [...] COVID-19 Disease Active Metho di virus virus 1- st detected detected 00:00: Hospit a 00 l Localized Localized Disease Active Met hodi osteoporos osteoporos 1-31 st is of is of 00:00: Hospita spine spine 00 l Lower Lower Disease Active Methodi abdominal abdominal 1-31 st pain pain 00:00: Hospita 00 l [...] ressive 10-30 st management management 00:00: Ho leonardo encounter encounter 00 l following following kidney [...] Hospita 00 l Pseudophak Pseudophak Disease Active 0 M ethodi ia ia 12-27 00:00: Hospita 00 l 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 00:00: Hospit a of right of right 00 l eye, eye, moderate moderate stage stage Pseudophak Pseudophak Disease Active 0 M ethodi ia ia 12-27 st 00:00: [...] Disease Active 0 M ethodi itis itis 10-26 st 00:00: Hospita 00 l Abnormal Abnormal Disease Active 2016-08 Metho di serum serum 010 st thyroid thyroid 00:00: Hospita stimulatin stimulatin 00 l g hormone g hormone (TSH) (TSH) level level Renal mass Renal mass Disease [facility] Proliferat Proliferat [...] Osteopenia Osteopenia Disease Active M ethodi 08-24 00:00: Hospita 00 l Kidney Kidney Disease [...] Active M ethodi r glaucoma r glaucoma 9-13 st of left of left 00:00: Hospita eye, eye, 00 l severe severe stage stage Distal Distal Disease Active [facility] radius [facility]05 [facility] fracture, fracture, 00:00: Medi michael left left 00 Center [id number] CKD Problem Common (chronic Spirit kidney - [facility] disease) stage 4, 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 kidney Medical complicati Center on [id number] Encounter Problem Com mon for Spirit immunizati - [facility] on [facility] [id number] Environmen Problem Co mmon clemente Spirit allergies - [facility] [id number] Age Problem Common related Spirit osteoporos - [facility] fracture presence Allergies, Adverse Reactions, Alerts Allergy Allergy Status Severity Reaction(s) Onset Inactive Treating Comm ents Source Name Type Date Date Clinician No Known DA Active U [facility] Allergie 5-10 Clear s 00:00: [place] 00 [facility] No Known Propensi Active Method i Drug ty to 7 st Allergie adverse 00:00: Hospita s reaction 00 l s to drug NO KNOWN Allergy Active [facility] Family History Family Member Diagnosis Comments Start Date Stop Date Source Natural father Diabetes [facility] Natural sister Diabetes [facility] Social History Social Habit Start Date Stop Date Quantity Comments Source History of Tobacco [facility] - Use [facility] Exposure to Not sure [facility] SARS-CoV-2 (event) Hospit al Gender identity [facility] Sexual orientation Method t Hospital Tobacco use and 2022-08-19 2022-08-19 Smokeless [facility] exposure 00:00:00 00:00:00 tobacco non-user Hospital Alcohol intake 2022-08-19 2022-08-19 Current [facility] 00:00:00 00:00:00 non-drinker of Hospital alcohol (finding) History of Social 2022-08-19 2022-08-[address] function 00:00:00 00:00:00 Hospital Sex Ass[birth year] At [birth year] [facility] 00:00:00 00:00:00 Hospital Smoking Status Start Date Stop Date Source Never smoked tobacco [facility] Medications Ordered Filled Start Stop Current Ordering Indication Dosage Frequency Signature Comments Components Source Medication Medication Date Date Medication? Clinician (SIG) Name Name gabapentin Yes 100mg QD Take 1 Meth sintia (NEURONTIN) 3-[address] 100 mg 08:54: (100 mg Hospita capsule 51 total) by l mouth daily. calcitrioL Yes .5ug QD Take 1 Metho di (ROCALTROL) 3-[address] 0.5 MCG 08:54: (0.5 mcg Hospit a capsule 51 total) by l mouth daily. atorvastati Yes 20mg QD Take 1 Meth sintia n (LIPITOR) 3-15 tablet (20 st 20 mg 08:54: mg total) Hospita tablet 51 by mouth l daily. Default OP ins levothyroxi Yes 50ug QD Take 1 Meth sintia ne 3-15 tablet (50 st (SYNTHROID) 08:54: mcg total) Hospita 50 mcg 51 by mouth l tablet daily. insulin Yes 25U Inject 25 Metho di degludec 3-[address] (Tresiba 08:54: under the [facility] FlexTouch 51 skin. AM l U-100) 100 unit/mL (3 mL) subcutaneou s pen insulin Yes Inject Methodi lispro 3-[address] (HUMALOG 08:54: skin. 3-5 [facility] KWIKPEN 51 units with l INSULIN meals SUBQ) ferrous Yes 325mg QD Take 1 [facility] sulfate 325 3-[address] (65 FE) MG 08:54: (325 mg [facility] tablet 51 total) by l mouth daily with breakfast. magnesium Yes Take by Metho di oxide 240 3-[address] mg 08:54: Hospita magnesium 51 l powder in packet vit B Yes 1{tbl} QD Take 1 [facility]i complex-vit 3-[address] ricardo 08:54: mouth Hospita C-folic 51 daily. l acid (NEPHRO-VIT E OTC) 0.8 mg tablet fluconazole 0 Yes 400mg QD Take 2 Met hodi (DIFLUCAN) 3-[address] 200 MG 08:54: (400 mg Hospita tablet 51 total) by l mouth daily. clopidogreL Yes 75mg QD Take 1 Meth sintia (PLAVIX) 75 3-15 tablet (75 st mg tablet 08:54: mg total) Hos edwardo 51 by mouth l daily. cholecalcif 0 Yes 2000U QD Take 1 Met hodi melissa, 3-[address] vitamin D3, 08:54: (2,000 [facility] 50 mcg 51 Units l (2,000 total) by unit) mouth capsule daily. capsule levoFLOXaci levoFLOXaci 0 2021- No levoFLOXac n 250 MG n 250 MG 02-10-16 in 250 MG 00:00: 00:00 00 :00 aspirin 0 Yes 81mg QD Take 81 mg Meth sintia (ECOTRIN) 6-[address] 81 MG 14:29: daily. Hospita enteric 14 l coated tablet gabapentin Yes 100mg Q.[id number] Take 100 [facility] (NEURONTIN) 6-15 [id number] mg by s t 100 mg 14:29: 3D mouth 3 Hospita capsule 14 (three) l times a day. calcitrioL 0 Yes .5ug QD Take 0.5 Met hodi (ROCALTROL) 6-[address] 0.5 MCG 14:29: mouth Hospita capsule 14 daily. l atorvastati 0 Yes 20mg QD Take 20 mg Methodi n (LIPITOR) 6-[address] 20 mg 14:29: daily. Hospita tablet 14 Default OP l ins levothyroxi 0 Yes 50ug QD Take 50 Met hodi ne 6-[address] (SYNTHROID) 14:29: mouth Hospi ta 50 mcg 14 daily. l tablet apixaban Yes 5mg Q.5D Take 5 mg Meth sintia (ELIQUIS) 5 6-[address] mg tablet 14:29: (two) Hospita 14 times a l day. acetaminoph Yes 20022 1{tbl} Q4H Take 1 M ethodi en-codeine [...] 14 l coated tablet gabapentin Yes 100mg Q.[id number] Take 100 Methodi (NEURONTIN) 6-15 [id number] mg by s t 100 mg 14:29: [...] 14 times a l day. [place]amin[place] [id number] 1{tbl} Q4H Take 1 M ethodi en-codeine [...] Hospita enteric 14 l coated tablet gabapentin 0 Yes 100mg Q.[id number] Take 100 Methodi (NEURONTIN) 6-15 [id number] mg by s t 100 mg 14:29: 3D mouth 3 Hospita capsule 14 (three) l times a day. calcitrioL 2022-0 Yes .5ug QD Take 0.5 Met hodi [...] 14 times a l [place]. [place] [id number] 1{tbl} Q4H Take 1 M ethodi en-codeine [...] Hospita enteric 14 l coated tablet gabapentin 2022-0 Yes 100mg Q.[id number] Take 100 Methodi (NEURONTIN) 6-15 [id number] mg by s t 100 mg 14:29: 3D mouth 3 Hospita capsule 14 (three) l times a day. calcitrioL 0 Yes .5ug QD Take 0.5 Met hodi [...] 14 times a l day. acetamin[place] 14041 1{tbl} Q4H Take 1 M ethodi en-codeine [...] daily. Hospita enteric 14 l coated tablet apixaban Yes 5mg Q.5D Take 5 mg Meth sintia (ELIQUIS) 5 6-[address] mg tablet 14:29: (two) Hospita 14 times a l day. acetaminoph Yes [id number] 1{tbl} Q4H Take 1 M ethodi en-codeine 6-[address] (TYLENOL 14:29: mouth Hospita WITH 14 every 4 l CODEINE #3) (four) 300-30 mg hours as per tablet needed for moderate pain .acute pain. ergocalcife Yes Take by Met hodi rol, [...] QD Take 1 Me thodi (DIFLUCAN) 6-15 -[address] 100 MG 00:00: 04:59 (100 [...] a day for 30 days. hydrALAZINE 2021-0 2021- No 50mg Q.5D Take 1 Met [...] day for 30 days. traMADoL 2021- No [id number] 50mg Q8H Take 1 Metho di (Ultram) 50 4-26 05-02 tablet (50 s t mg tablet 00:00: 04:59 mg total) Ho spita 00 :00 by mouth l every 8 (eight) hours as needed for moderate pain for up to 5 days .acute pain. traMADoL 2021-2021- [place] [id number] 50mg Q8H Take 1 Metho di (Ultram) 50 4-26 05-02 tablet (50 s t mg tablet 00:00: 04:59 mg total) Ho spita 00 :00 by mouth l every 8 (eight) hours as needed for moderate pain for up to 5 days .acute pain. traMADoL 2021-2021- [place] [id number] 50mg Q8H Take 1 Metho di (Ultram) 50 4-26 05-02 tablet (50 s t mg tablet 00:00: 04:59 mg total) Ho spita 00 :00 by mouth l every 8 (eight) hours as needed for moderate pain for up to 5 days .acute pain. [place]MADoL 2021-2021- [place] [id number] 50mg Q8H Take 1 Metho di (Ultram) 50 4-26 05-02 tablet (50 s t mg tablet 00:00: 04:59 mg total) Ho spita 00 :00 by mouth l every 8 (eight) hours as needed for moderate pain for up to 5 days .acute pain. metoprolol 12.5mg QD Take 0.5 Methodi succinate 30 -[address] XL 00:00: 04:59 (12.5 mg Hospita (TOPROL-XL) 00 :00 total) by l 25 mg 24 hr mouth tablet daily [place] 30 [place] [address] 8000U Q.47173565 Inject 2 Methodi fadia 10-28 [id number] mL (8,000 st (EPOGEN) 00:00: 04:59 3W [...] daily for 30 days. epoetin 2021- [place] 315[address] 8000U Q.71240331 Inject 2 Methodi fadia 10-28 [id number] mL (8,000 st (EPOGEN) 00:00: 04:59 3W Units Hospita 4,000 00 :00 total) l unit/mL under the injection skin 3 (three) times a week for 30 days .ESRD on Dialysis. cinacalcet 2021-2021- No 30mg QD Take 1 Meth sintia (SENSIPAR) 3-30 04-30 tablet (30 st 30 MG 00:00: 04:59 mg total) Hospit a tablet 00 :00 by mouth l daily with breakfast for 30 days. levothyroxi 2021-2021- No 50ug QD Take 1 Met hodi ne -28 11-30 tablet (50 st (SYNTHROID) 00:00: 04:59 mcg [...] No 12.5mg QD Take 0.5 Methodi succinate -28 11-[address] XL 00:00: 04:59 (12.5 mg Hospita (TOPROL-XL) 00 :00 total) by l 25 mg 24 hr mouth tablet daily for 30 days. epoetin 2021- [place] 237[address] 8000U Q.[id number] Inject 2 Methodi fadia 10-28- [id number] mL (8,000 st (EPOGEN) 00:00: 04:59 3W Units Hospita 4,000 00 :00 total) l unit/mL under the injection skin 3 (three) times a week for 30 days .ESRD on Dialysis. cinacalcet 2021-2021- No 30mg QD Take 1 Meth sintia (SENSIPAR) 3-30 -30 tablet (30 st 30 MG 00:00: 04:59 mg total) Hospit a tablet 00 :00 by mouth l daily with breakfast for 30 days. levothyroxi 2021-2021- No 50ug QD Take 1 Met hodi ne -30 -30 tablet (50 st (SYNTHROID) 00:00: 04:59 mcg [...] tablet daily [place] 30 [place] [address] 8000U Q.[id number] Inject 2 Methodi fadia 10-28 [id number] mL (8,000 st (EPOGEN) 00:00: 04:59 3W [...] daily with breakfast for 30 days. levothyroxi No 50ug QD Take 1 Met hodi [...] daily before breakfast for 30 days. predniSONE 2021- [place] [id number] 2.5mg QD Take 1 Me thodi (DELTASONE) 10-28- tablet st 2.5 mg 00:00: 00:00 (2.5 mg Hospita tablet 00 :00 total) by l mouth daily for 30 days .prevent kidney transplant rejection. predniSONE 2021-0 2021- [place] [id number] 2.5mg QD Take 1 Me thodi (DELTASONE) 3-28 11- tablet st 2.5 mg 00:00: 00:00 (2.5 mg Hospita tablet 00 :00 total) by l mouth daily for 30 days .prevent kidney transplant rejection. predniSONE 2021-0 2021- [place] [id number] 2.5mg QD Take 1 Me thodi (DELTASONE) -28 11- tablet st 2.5 mg 00:00: 00:00 (2.5 mg Hospita tablet 00 :00 total) by l mouth daily for 30 days .prevent kidney transplant rejection. predniSONE 2021-0 2021- [place] [id number] 2.5mg QD Take 1 Me thodi (DELTASONE) -28 11- tablet st 2.5 mg 00:00: 00:00 (2.5 mg Hospita tablet 00 :00 total) by l mouth daily for 30 days .prevent kidney transplant rejection. clonIDINE 2022-0 Yes .1mg Q.[id number] Take 1 Methodi (CATAPRES) 3-29 [id number] tablet s t 0.1 MG 00:00: 3D [...] day with meals. clonIDINE 2022-0 Yes .1mg Q.[id number] Take 1 Methodi (CATAPRES) 3-29 [id number] tablet s t 0.1 MG 00:00: 3D [...] day with meals. clonIDINE 2022-0 Yes .1mg Q.[id number] Take 1 Methodi (CATAPRES) 3-29 [id number] tablet s t 0.1 MG 00:00: 3D [...] day with meals. clonIDINE 2022-0 Yes .1mg Q.[id number] Take 1 Methodi (CATAPRES) 3-29 [id number] tablet s t 0.1 MG 00:00: 3D [...] day with meals. clonIDINE 2022-0 Yes .1mg Q.80368041 Take 1 Method[facility] (CATAPRES) 3-29 [id number] tablet s t 0.1 MG 00:00: 3D [...] (two) times a day with meals. polyethylen 2022-0 2022- No 17g Q.5D Take 17 g Methodi e glycol 10-27- by mouth 2 st (MIRALAX) 00:00: 04:59 (two) Hospit a 17 gram 00 :00 times a l packet day for 30 days. nitroglycer 2022-0 2022- No .4mg Place 1 Me thodi in [...] to 30 days. lactulose 2021- No 20g Q.[id number] Take 30 mL Methodi 20 gram/30 10-27 [id number] (20 g s t mL solution 00:00: [...] to 30 days. lactulose 2021- No 20g Q.[id number] Take 30 mL Methodi 20 gram/30 10-27 [id number] (20 g s t mL solution 00:00: [...] to 30 days. lactulose 2021- No 20g Q.[id number] Take 30 mL Methodi 20 gram/30 10-27 [id number] (20 g s t mL solution 00:00: [...] to 30 days. lactulose 2021- No 20g Q.[id number] Take 30 mL Methodi 20 gram/30 10-27 [id number] (20 g s t mL solution 00:00: [...] for 30 days. insulin 2021- No 0U Q.[id number] Inject M ethodi lispro 10-27 [id number] 0-[address] (ADMELOG) 00:00: 00:00 3D [...] injection (twelve) hours for 30 days. insulin 2021-0 2021- No 0U Q.[id number] Inject M ethodi lispro 10-27- [id number] 0-[address] (ADMELOG) 00:00: 00:00 3D [...] for 30 days. insulin 2021-2021- No 0U Q.[id number] Inject M ethodi lispro - 04-26 [id number] 0-[address] (ADMELOG) 00:00: 00:00 3D under the Ho spita 100 unit/mL 00 :00 skin 3 l injection (three) times a day with meals for 30 days. heparin 2021-2021- No 5000U Q.5D Inject 1 Meth sintia sodium,porc 3- 04-26 mL (5,000 st ine 00:00: 00:00 Units Hospita (HEParin, 00 :00 total) l porcine,) under the 5,000 skin every unit/mL 12 injection (twelve) hours for 30 days. insulin 2021-2021- No 0U Q.[id number] Inject M ethodi lispro -27 11-26 [id number] 0-[address] (ADMELOG) 00:00: 00:00 3D under the Ho spita 100 unit/mL 00 :00 skin 3 l injection (three) times a day with meals for 30 days. heparin 2021-2021- No 5000U Q.5D Inject 1 Meth sintia sodium,porc - 04-26 mL (5,000 st ine 00:00: 00:00 [...] up to 3 days. HYDROcodone 2021- No [id number] 1{tbl} Q8H Take 1 Methodi -acetaminop -27 11-[address] hen (NORCO) 00:00: 04:59 mouth [facility] 10-325 mg 00 :00 every 8 l per tablet (eight) hours as needed for severe pain for up to 3 days .acute pain. Max Daily Amount: 3 tablets ondansetron 2022-0 2022- No 4mg Q8H Take 1 Met hodi ODT 3-29 04-02 tablet (4 st (ZOFRAN-ODT 00:00: 04:59 mg total) Hospita ) 4 MG 00 :00 by mouth l disintegrat every 8 ing tablet (eight) hours as needed for nausea or vomiting for up to 3 days. HYDROcodone 2022-0 2022- [place] [id number] 1{tbl} Q8H Take 1 Methodi -acetaminop 3-29 04-[address] hen (Ultracell) 00:00: 04:59 mouth [facility] 10-325 mg 00 :00 every 8 l per tablet (eight) hours as needed for severe pain for up to 3 days .acute pain. Max Daily Amount: 3 tablets ondansetron 2022-0 2022- No 4mg Q8H Take 1 Met hodi ODT 3-29 04-02 tablet (4 st (ZOFRAN-ODT 00:00: 04:59 mg total) Hospita ) 4 MG 00 :00 by mouth l disintegrat every 8 ing tablet (eight) hours as needed for nausea or vomiting for up to 3 days. HYDROcodone 2-0 2- No [id number] 1{tbl} Q8H Take 1 Methodi -acetaminop 3-29 04-[address] hen (Ultracell) 00:00: 04:59 mouth [facility] 10-325 mg 00 :00 every 8 l per tablet (eight) hours as needed for severe pain for up to 3 days .acute pain. Max Daily Amount: 3 tablets ondansetron 2022-0 2022- No 4mg Q8H Take 1 Met hodi ODT 3-29 04-02 tablet (4 st (ZOFRAN-ODT 00:00: 04:59 mg total) Hospita ) 4 MG 00 :00 by mouth l disintegrat every 8 ing tablet (eight) hours as needed for nausea or vomiting for up to 3 days. HYDROcodone 2022-0 2022- No [id number] 1{tbl} Q8H Take 1 Methodi -acetaminop 3-29 04-[address] hen (Ultracell) 00:00: 04:59 mouth [facility] 10-325 mg 00 :00 every 8 l per tablet (eight) hours as needed for severe pain for up to 3 days .acute pain. Max Daily Amount: 3 tablets insulin inyecte 8 Meth sintia ASPART 3-10-[address] (NovoLOG 00:00: 00:00 antes Hospita Flexpen 00 :00 comida 12 l U-100 unidades Insulin) en el 100 unit/mL almuerso y (3 mL) inside barrel polisher. insulin pen Dosis maria guadalupe por venkatesh es 65 unidades. insulin No inyecte 8 Meth sintia ASPART -10-[address] (NovoLOG 00:00: 00:00 antes Hospita Flexpen 00 :00 comida 12 l U-100 unidades Insulin) en el 100 unit/mL almuerso y (3 mL) lydia. insulin pen Dosis maria guadalupe por venkatesh es 65 unidades. insulin inyecte 8 Meth sintia ASPART -10-[address] (NovoLOG 00:00: 00:00 antes Hospita Flexpen 00 :00 comida 12 l U-100 unidades Insulin) en el 100 unit/mL almuerso y (3 mL) inside barrel polisher. insulin pen Dosis maria guadalupe por venkatesh es 65 unidades. insulin inyecte 8 Meth sintia ASPART -10-27 unidades [...] 45 l coated tablet lactulose Yes 20g Q.[id number] Take 30 mL Methodi 20 gram/30 - [id number] ([address] mL solution 00:00: 3D total) by H ospita 00 mouth 3 l (three) times a day as needed (constipat ion). lactulose 0 2021- No 20g Q.[id number] Take 30 mL Methodi 20 gram/30 08-29 [id number] (20 g s t mL solution 00:00: 00:00 3D total) by Hospita 00 :00 mouth 3 l (three) times a day as needed (constipat ion). lactulose 2021-0 2022- No 20g Q.[id number] Take 30 mL Methodi 20 gram/30 08-29 [id number] (20 g s t mL solution 00:00: 00:00 3D total) by Hospita 00 :00 mouth 3 l (three) times a day as needed (constipat ion). lactulose 2021-0 2021- No 20g Q.[id number] Take 30 mL Methodi 20 gram/30 08-29 [id number] (20 g s t mL solution 00:00: 00:00 3D total) by Hospita 00 :00 mouth 3 l (three) times a day as needed (constipat ion). lactulose 2021-0 2021- No 20g Q.[id number] Take 30 mL Methodi 20 gram/30 08-29 [id number] (20 g s t mL solution 00:00: 00:00 3D total) by Hospita 00 :00 mouth 3 l (three) times a day as needed (constipat ion). hydrocortis 2021-2021- No Q.5D Insert [facility] 08-[address] (ANUSOL-HC) 00:00: 05:59 rectum 2 H ospita 2.5 % 00 :00 (two) l rectal times a cream day for 30 days. hydrocortis 2021-0 2021- No Q.5D Insert Met [facility] one [facility] (ANUSOL-HC) 00:00: 05:59 rectum 2 H ospita 2.5 % 00 :00 (two) l rectal times a cream day for 30 days. hydrocortis 2021-0 2021- No Q.5D Insert Met [facility] 08-[address] (ANUSOL-HC) 00:00: 05:59 rectum 2 H ospita 2.5 % 00 :00 (two) l rectal times a cream day for 30 days. hydrocortis 2021- No Q.5D Insert Met [facility] 08-29 into the [facility]) 00:00: 05:59 rectum 2 H ospita 2.5 % 00 :00 (two) l rectal times a cream day for 30 days. hydrocortis 2021- No Q.5D Insert Met [facility] 08-29 into the [facility]) 00:00: 05:59 rectum 2 H ospita 2.5 % 00 :00 (two) l rectal times a cream day for 30 days. blood sugar 2-0 Yes [id number] DX E11.65 Methodi diagnostic 1-[address] strips 00:00: testing Hospita (glucose 00 QID.One l blood) Touch strip test Verio Test strips Strip blood sugar 2-0 Yes [id number] DX E11.65 Methodi diagnostic 1-[address] strips 00:00: testing Hospita (glucose 00 QID.One l blood) Touch strip test Verio Test strips Strip blood sugar 2-0 Yes [id number] DX E11.65 Methodi diagnostic 1-[address] strips 00:00: testing Hospita (glucose 00 QID.One l blood) Touch strip test Verio Test strips Strip blood sugar 2022-0 Yes [id number] DX E11.65 [facility] diagnostic 1-[address] strips 00:00: testing [facility]osp[facility] (glucose 00 QID.One l blood) Touch strip test Verio Test strips Strip blood sugar 2022-0 Yes [id number] DX E11.65 [facility] diagnostic 1-[address] strips 00:00: testing [facility] (glucose 00 QID.One l blood) Touch strip test Verio Test strips Strip blood sugar 2022-0 Yes [id number] DX E11.65 [facility] diagnostic 1-[address] strips 00:00: testing [facility]osp[facility] (glucose 00 QID.One l blood) Touch strip test Verio Test strips Strip Amoxicillin Amoxicillin 2020-08- No 1{table -Pot -Pot 2-23 06- t} Clavulanate Clavulanate 00:00: 00:00 500-125 MG 500-125 MG 00 :00 Amoxicillin Amoxicillin 2020-08- No 1{table Amoxicilli -Pot -Pot -21 01- t} n-Pot Clavulanate Clavulanate 00:00: 00:00 Clavulanat 500-125 MG 500-125 MG 00 :00 e 500-125 MG Amoxicillin Amoxicillin 2020-08- No 1{table Amoxicilli -Pot -Pot -01-19 t} n-Pot Clavulanate Clavulanate 00:00: 00:00 Clavulanat 500-125 MG 500-125 MG 00 :00 e 500-125 MG Amoxicillin Amoxicillin 2020-08- No 1{table Amoxicilli -Pot -Pot -21 01- t} n-Pot Clavulanate Clavulanate 00:00: 00:00 Clavulanat [...] Q.5D Take 1 [facility] (LASIX) 20 09-09- tablet (20 st mg tablet 00:00: 05:59 [...] l (two) times a day. gabapentin Yes [place] 1 [facility] (NEURONTIN) 04-[address] 100 mg 00:00: por la [facility] capsule 00 [place] l veces al venkatesh (Take 1 capsule by mouth three times a day) gabapentin 2021- No [place] 1 Meth [facility] (NEURONTIN) 04-[address] 100 mg 00:00: 00:00 [facility] capsule 00 :00 [place] l veces al venkatesh (Take 1 capsule by mouth three times a day) gabapentin 2021- No [place] 1 Meth [facility] (NEURONTIN) 04-[address] 100 mg 00:00: 00:00 por [facility] capsule 00 :00 [place] l veces al venkatesh (Take 1 capsule by mouth three times a day) gabapentin 2021- No [place] 1 [facility] (NEURONTIN) 04-[address] 100 mg 00:00: 00:00 por [facility] capsule 00 :00 [place] l veces al venkatesh (Take 1 capsule by mouth three times a day) gabapentin 2021- No [place] 1 [facility] (NEURONTIN) 04-[address] 100 mg 00:00: 00:00 [facility] capsule 00 :00 [place] l veces al venkatesh (Take 1 capsule by mouth three times a day) tamsulosin 2020- No .4mg QD Take 0.4 [facility] (FLOMAX) 02-18 07-[address] 0.4 mg 11:16: 00:00 mouth Hospita capsule 41 :00 daily. l doxycycline 2021-0 2021- No 100mg Q.5D 100 mg 2 [facility] (VIBRAMYCIN 7-14 07-14 (two) st ) 100 MG 13:12: 00:00 times a Hospi ta capsule 01 :00 day. l amLODIPine 2021-0 Yes 10mg QD Take 1 [facility] (NORVASC) 7-14 tablet (10 st 10 mg 00:00: mg total) Hospita tablet 00 by mouth l daily. omeprazole 2021-0 Yes 40mg QD Take 1 [facility] (PriLOSEC) 7-[address] 40 MG 00:00: (40 mg Hospita capsule 00 total) by l mouth daily. amLODIPine 2021-0 Yes 10mg QD Take 1 [facility] (NORVASC) 7-14 tablet (10 st 10 mg 00:00: mg total) Hospita tablet 00 by mouth l daily. omeprazole 2021-0 Yes 40mg QD Take 1 [facility] (PriLOSEC) 7-[address] 40 MG 00:00: (40 mg Hospita capsule 00 total) by l mouth daily. amLODIPine 2021-0 Yes 10mg QD Take 1 [facility] (NORVASC) 7-14 tablet (10 st 10 mg 00:00: mg total) Hospita tablet 00 by mouth l daily. omeprazole 2021-0 Yes 40mg QD Take 1 [facility] (PriLOSEC) 7-[address] 40 MG 00:00: (40 mg [facility]ospita capsule 00 total) by l mouth daily. amLODIPine 2021-0 Yes 10mg QD Take 1 [facility] di (NORVASC) 7-14 tablet (10 st 10 mg 00:00: mg total) Hospita tablet 00 by mouth l daily. omeprazole 2021-0 Yes 40mg QD Take 1 [facility] di (PriLOSEC) 7-[address] 40 MG 00:00: (40 mg [facility]ospita capsule 00 total) by l mouth daily. amLODIPine 2021-0 Yes 10mg QD Take 1 [facility] di (NORVASC) 7-14 tablet (10 st 10 mg 00:00: mg total) Hospita tablet 00 by mouth l daily. omeprazole 2021-0 Yes 40mg QD Take 1 [facility] di (PriLOSEC) 7-[address] 40 MG 00:00: (40 mg Hospita capsule 00 total) by l mouth daily. amLODIPine 10mg QD Take 1 Meth [facility] (NORVASC) 02-11 tablet (10 st 10 mg 00:00: 04:59 mg total) Hospit a tablet 00 :00 by [place] [id number] 1ug QD Take 2 [facility] (ROCALTROL) [...] (four) chewable times a tablet day. magnesium 64mg QD Take 1 [facility] di chloride 64 02-11 tablet (64 s t mg 00:00: 04:59 mg total) Hospita tablet,fermin 00 :00 by mouth l yed release daily. (DR/EC) tablet omeprazole 40mg QD Take 1 Meth [facility] (PriLOSEC) 02-[address] 40 MG 00:00: 04:59 (40 mg Hospita capsule 00 :00 total) by [place] [id number] 5mg QD Take 1 [facility] (DELTASONE) 02-11 tablet (5 st 5 mg tablet 00:00: 04:59 mg total) [facility]ospita 00 :00 by mouth l daily .prevent kidney transplant rejection. clonIDINE 2021- No .1mg Q.[id number] Take 1 [facility] (CATAPRES) 02-[id number] 0.1 MG 00:00: 04:59 3D (0.1 mg Hospita tablet 00 :00 total) by l mouth 3 (three) times a day. magnesium No 64mg QD Take 1 [facility] di chloride 64 02-11 tablet (64 s t mg 00:00: 00:00 mg total) Hospita tablet,fermin 00 :00 by mouth l yed release daily. (DR/EC) tablet predniSONE 2020-2021- [place] [id number] 5mg QD Take 1 [facility] (DELTASONE) 02-11 tablet (5 st 5 mg tablet 00:00: 00:00 mg total) [facility]ospita 00 :00 by mouth l daily .prevent kidney transplant rejection. clonIDINE 2020-2021- No .1mg Q.[id number] Take 1 [facility] (CATAPRES) 02-[id number] 0.1 MG 00:00: 00:00 3D (0.1 mg Hospita tablet 00 :00 total) by l mouth 3 (three) times a day. magnesium 2020-2021- No 64mg QD Take 1 [facility] di chloride 64 02-11 tablet (64 s t mg 00:00: 00:00 mg total) Hospita tablet,fermin 00 :00 by mouth l yed release daily. (DR/EC) tablet [place]niSONE 2020-20[place]- [place] [id number] 5mg QD Take 1 [facility] (DELTASONE) 02-11 tablet (5 st 5 mg tablet 00:00: 00:00 mg total) [facility]ospita 00 :00 by mouth l daily .prevent kidney transplant rejection. clonIDINE 2020-2021- No .1mg Q.[id number] Take 1 [facility] (CATAPRES) 02-[id number] 0.1 MG 00:00: 00:00 3D (0.1 mg [facility]ospita tablet 00 :00 total) by l mouth 3 (three) times a day. magnesium 2020-2021- No 64mg QD Take 1 [facility] di chloride 64 02-11 tablet (64 s t mg 00:00: 00:00 mg total) Hospita tablet,fermin 00 :00 by mouth l yed release daily. (DR/EC) tablet predniSONE 2020-0 2021- No 23534 5mg QD Take 1 [facility] (DELTASONE) 02-11 tablet (5 st 5 mg tablet 00:00: 00:00 mg total) [facility]ospita 00 :00 by mouth l daily .prevent kidney transplant rejection. clonIDINE 2021- No .1mg Q.03585656 Take 1 [facility] (CATAPRES) 02-[id number] 0.1 MG 00:00: 00:00 3D (0.1 mg [facility]ospita tablet 00 :00 total) by l mouth 3 (three) times a day. magnesium No 64mg QD Take 1 [facility]o di chloride 64 02-11 tablet (64 s t mg 00:00: 00:00 mg total) Hospita tablet,fermin 00 :00 by mouth l yed release daily. (DR/EC) [place] [id number] 5mg QD Take 1 [facility] (DELTASONE) 02-11 tablet (5 st 5 mg tablet 00:00: 00:00 mg total) [facility]ospita 00 :00 by mouth l daily .prevent kidney transplant rejection. clonIDINE 2021- No .1mg Q.46225745 Take 1 [facility] (CATAPRES) 02-[id number] 0.1 MG 00:00: 00:00 3D (0.1 mg Hospita tablet 00 :00 total) by l mouth 3 (three) times a day. calcitrio[place] 2021- [place] [id number] 1ug QD Take 2 [facility] (ROCALTROL) [...] times a tablet day. calcitrio[place] 2021- [place] 220[address] 1ug QD Take 2 [facility] (ROCALTROL) 02-[address] 0.5 MCG 00:00: 00:00 (1 mcg Hospita capsule 00 :00 total) by l mouth daily .low amount of calcium in the blood. [phone] for auth issues calcium 2021- No 500mg Q.25D Chew 1 [facility] di carbonate 02-[address] (TUMS) 200 00:00: 00:00 (500 mg [facility] mg calcium 00 :00 total) 4 l (500 mg) (four) chewable times a tablet day. calcitrioL 2021- No 34473 1ug QD Take 2 [facility] (ROCALTROL) [...] times a tablet day. calcitrio[place] 2021- [place] [id number] 1ug QD Take 2 [facility] (ROCALTROL) [...] times a tablet day. acetaminoph 2020- [place] 329[address] 1{tbl} Q6H Take 1 [facility] en-codeine 6 07-[address] (TYLENOL 00:00: 04:59 [...] DOSE DECREASE - Maki RN for auth [id number] tacrolimus 2020-0 Yes .5mg [...] DOSE DECREASE - Maki SORIANO for auth [id number] levothyroxi 2020-0 2021- No 50ug QD Take 2 [facility] ne 01-20- tablets st (Synthroid) 00:00: 04:59 (50 mcg Ho spita 25 mcg 00 :00 total) by l tablet mouth daily. Temp refill until pt can see Endo tacrolimus 2020-0 2022- No .5mg Q.5D Take 1 Meth [facility] (PROGRAF) 01-[address] 0.5 MG 00:00: 04:59 (0.5 mg Hospita capsule 00 :00 total) by l mouth 2 (two) times a day. DOSE DECREASE - Maki SORIANO for auth levothyroxi 2021- No 50ug QD Take 2 [facility] ne 01-20- tablets st (Synthroid) 00:00: 00:00 (50 mcg [...] pt can see Endo denosumab 2020- No [id number] 60mg [facility] (PROLIA) 01-19 st syringe 60 17:30: 17:33 Hospit a mg 00 :00 l fluconazole 2021- No 400mg QD Take 2 [facility] (DIFLUCAN) --[address] 200 MG 00:00: 05:59 (400 mg Hospita tablet 00 :00 total) by l mouth daily for 300 days. fluconazole 2020-2021- No 400mg QD Take 2 [facility] (DIFLUCAN) 4-30 02-[address] 200 MG 00:00: 05:59 [...] daily. nitrofurant 2020- No Metho di oin, 4-13 06-29 st macrocrysta 00:00: 00:00 Hospi ta l-monohydra 00 :00 l te, (MACROBID) 100 MG capsule tacrolimus 2020- No 1mg Q.5D Take 1 Meth s[facility] (PROGRAF) 1 4-05 06-22 capsule (1 s t MG capsule 00:00: 00:00 mg total) H ospita 00 :00 by mouth 2 l (two) times a day. Z94.0; Txp 12/30/09; DC 01/06/10; MCR AB at time of txp; [facility] tacrolimus 2020- No 1mg Q.5D Take 1 Meth sintia (PROGRAF) 1 - 04-05 capsule (1 s t MG capsule 00:00: 00:00 mg total) H ospita 00 :00 by mouth 2 l (two) times a day. Z94.0; Txp 12/30/09; DC 01/06/10; MCR AB at time of txp; [facility]; Maki SORIANO guaiFENesin 2020- No 600mg Q12H Take 600 [facility] (MUCINEX) -29 10-[address] 600 mg 13:24: 00:00 mouth Hospita tablet 22 :00 every 12 l extended (twelve) release hours. 12hr simvastatin 2021- No 20mg QD Take 1 [facility] (ZOCOR) 20 10-29 04- tablet (20 st mg tablet 00:00: 04:59 [...] QD Take 1 [facility] (ZOCOR) 20 310-27 tablet (20 st mg tablet 00:00: 00:00 mg total) Ho spita 00 :00 by mouth l nightly. simvastatin No 20mg QD Take 1 [facility] (ZOCOR) 20 10-29 tablet (20 st mg tablet 00:00: 00:00 mg total) Ho spita 00 :00 by mouth l nightly. doxycycl[place] 2020- [place] [id number] 100mg Q.5D Take 1 M ethodi (MONODOX) [...] MCR AB at time of txp; [facility]; Maki RN Victoza No INJECT 1.8 Met hodi 3-Tavo 0.6 10-[address] mg/0.1 mL 00:00: 00:00 THE SKIN Hos [facility] (18 mg/3 00 :00 ONCE DAILY l mL) pen WITH injector BREAKFAST doxycycline No 150mg QD Take 1 [facility] [...] mouth l daily. meclizine 2020- No 25mg Q.28985793 Take 1 [facility] (ANTIVERT) 09-30 [id number] tablet (25 st 25 mg 00:00: 04:59 [...] dinner for 30 days. sodium 2020- No [id number] 650mg Q.07503071 Take 1 [facility] bicarbonate 09-[id number] 650 mg 00:00: 04:59 3D (650 mg Hospita tablet 00 :00 total) by l mouth 3 (three) times a day for 30 days. polyethylen 2020- No [id number] 17g Q.5D Take 17 g [facility] e glycol 09-[address] (MIRALAX) 00:00: 04:59 (two) Hospit a 17 gram 00 :00 times a l packet day for 30 days. bethanechol 2020- No [id number] 10mg Q.51403298 Take 1 [facility] (URECHOLINE 09-24 [id number] tablet (10 st ) 10 MG 00:00: 04:59 3D mg total) [facility] tablet 00 :00 by mouth 3 l (three) times a day for 30 days. acetaminoph 2020- No [id number] 500mg Q6H Take 1 [facility] en 09-24 [...] and 4 l NPH Insulin units at [facility]) bedtime 100 unit/mL (3 mL) insulin NPH 2021- No Inject 10 [facility] isoph U-100 2-22 03-[address] human 00:00: 00:00 breakfast Hospit a (HumuLIN N 00 :00 and 4 l NPH Insulin units at [facility]) bedtime 100 unit/mL (3 mL) insulin NPH 2021- No Inject 10 [facility] isoph U-100 2-22 03-[address] human 00:00: 00:00 breakfast Hospit a (HumuLIN N 00 :00 and 4 l NPH Insulin units at [facility]) bedtime 100 unit/mL (3 mL) insulin NPH 2021- No Inject 10 [facility] isoph U-100 2-22 03-[address] human 00:00: 00:00 breakfast Hospit a (HumuLIN N 00 :00 and 4 l NPH Insulin units at [facility]) bedtime 100 unit/mL (3 mL) insulin NPH 2021- No Inject 10 [facility] isoph U-100 2-22 03-[address] human 00:00: 00:00 breakfast Hospit a (HumuLIN N 00 :00 and 4 l NPH Insulin units at [facility]) bedtime 100 unit/mL (3 mL) insulin No inyecte 3 Meth s[facility]ia ASPART 09-22 [facility] (NovoLOG 00:00: 00:00 antes Hospita Flexpen 00 :00 comida l U-100 Insulin) 100 unit/mL (3 mL) insulin pen insulin No inyecte 3 Meth sintia ASPART 09-22- [facility] (NovoLOG 00:00: 00:00 antes Hospita Flexpen 00 :00 comida l U-100 Insulin) 100 unit/mL (3 mL) insulin pen insulin No inyecte 3 Meth sintia ASPART 09-22 [facility] (NovoLOG 00:00: 00:00 antes Hospita Flexpen 00 :00 comida l U-100 Insulin) 100 unit/mL (3 mL) insulin pen insulin No inyecte 3 Meth sintia ASPART 09-22 [facility] (NovoLOG 00:00: 00:00 antes Hospita Flexpen 00 :00 comida l U-100 Insulin) 100 unit/mL (3 mL) insulin pen insulin No Inject 8 Metho di lispro 09-22 units at (HumaLOG 00:00: 00:00 breakfast Hos [facility] KwikPen 00 :00 and 12 l Insulin) units 100 unit/mL lunch and injection dinner. pen Patient on sliding scale. Max dose per meal 18 units. insulin NPH No 10U QD Inject 10 [facility] isoph U-100 09-22 Units human 00:00: 00:00 under the Hospit a (HumuLIN N 00 :00 skin daily l NPH Insulin before KwikPen) breakfast. 100 unit/mL (3 mL) predniSONE 2019-08 [place] [id number] 5mg QD Take 1 [facility] (DELTASONE) -14 tablet (5 st 5 mg tablet 00:00: 00:00 mg total) Hospita 00 :00 by mouth l daily .prevent kidney transplant rejection. tacrolimus 2019-08 44373 1.5mg Q.5D Take 3 [facility] (PROGRAF) 2 02-[address] 0.5 MG 00:00: 00:00 (1.5 mg Hospita capsule 00 :00 total) by l mouth 2 (two) times a day .prevent kidney transplant rejection. DOSE CHANGE! blood sugar 2019-08 No DX E11.65 Method[facility] [...] i gauge x 1-[address] 12/14" 00:00: venkatesh (Use 5 Hospit a needle [...] i gauge x 1-[address] 12/14" 00:00: venkatesh (Use 5 Hospit a needle 00 times l daily) Insupen 31 2019-08 Yes Use 5 Method i gauge x 1-[address] 12/14" 00:00: venkatesh (Use 5 Hospit a needle 00 times l daily) blood sugar 2019-08 Yes [id number] DX: E11.65 [facility] diagnostic 0-[address] strips 00:00: times Hospita strip test 00 daily l strips lancets 33 2019- Yes DX E11.65 [facility] gauge misc 0-[address] 00:00: testing Hospita 00 QID. l Please match to machine. blood sugar 2019-08 Yes [id number] DX: E11.65 [facility] diagnostic 0-[address] strips 00:00: times Hospita strip test 00 daily l strips lancets 33 2020- Yes DX E11.65 [facility] gauge misc 0-[address] 00:00: testing Hospita 00 QID. l Please match to machine. blood sugar 2019-08 Yes [id number] DX: E11.65 [facility] diagnostic 0-[address] strips 00:00: times Hospita strip test 00 daily l strips lancets 33 2020-1 Yes DX E11.65 [facility] gauge misc 0-[address] 00:00: testing Hospita 00 QID. l Please match to machine. blood sugar 2019-08 Yes [id number] DX: E11.65 [facility] diagnostic 0-[address] strips 00:00: times Hospita strip test 00 daily l strips lancets 33 2020-1 Yes DX E11.65 [facility] gauge misc 0-[address] 00:00: testing Hospita 00 QID. l Please match to machine. blood sugar 2019- Yes [id number] DX: E11.65 [facility] diagnostic 0-[address] strips 00:00: times Hospita strip test 00 daily l strips lancets 33 2020-1 Yes DX E11.65 [facility] gauge misc 0-[address] 00:00: testing Hospita 00 QID. l Please match to machine. blood sugar 2019-08 Yes [id number] DX: E11.65 [facility] diagnostic 0-[address] strips 00:00: times Hospita strip test 00 daily l strips lancets 33 2019-08 Yes DX E11.65 [facility] gauge misc 0-[address] 00:00: testing Hospita 00 QID. l Please match to machine. Benzonatate Benzonatate No Na Munson 1 capsule Common 03-14 as needed Spirit 00:00: 00:00 - [facility] 00 :00 [facility] amLODIPine No 10mg QD Take 1 Meth sintia (NORVASC) 02-18 tablet (10 st 10 mg 00:00: 00:00 mg total) Hospit a tablet 00 :00 by mouth l daily. calcitrioL 2020- No [id number] 1ug QD Take 2 [facility] (ROCALTROL) [...] day with meals. clonIDINE 2020- No .1mg Q.97453546 Take 1 [facility] (Catapres) 02-[id number] 0.1 MG 00:00: 00:00 3D (0.1 mg Hospita tablet 00 :00 total) by l mouth 3 (three) times a day. omeprazole No 40mg QD Take 1 Meth [facility] (PriLOSEC) 715 07-[address] 40 MG 00:00: 00:00 (40 mg Hospita capsule 00 :00 total) by l mouth daily. Cetirizine Cetirizine Yes Na Munson 1 tablet Common HCl HCl 6-22 Orally [facility] 00:00: Once a day - [facility] 00 [facility] insulin NPH 2020- No 20 units M ethodi (HumuLIN-N) 11-[address] 100 unit/mL 00:00: 00:00 Hospi ta injection 00 :00 l insulin 2020- No 3U Q.02996401 Inject 3 [facility] lispro 11-[id number] (HumaLOG) 00:00: 00:00 3D under [...] l Please match machine to insurance. 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 albuterol 2020- No 180ug Q4H Inhale 180 [facility] sulfate 90 2-07 03-[address] mcg/actuati 00:00: 00:00 4 (four) H ospita on aerosol 00 :00 hours. l powdr [phone] breath 91 for activated auth - Maki SORIANO Albuterol Albuterol Yes Na Munson 2 puffs Common Sulfate HFA Sulfate HFA 9-25 S pirit 00:00: - [facility] 00 [facility] Albuterol Albuterol No 2{puffs Sulfate HFA Sulfate HFA 9-25 } 108 (90 108 (90 00:00: Base) Base) 00 MCG/ACT MCG/ACT Albuterol Albuterol No 2{puffs Albuterol Sulfate HFA Sulfate HFA 9-25 } Sulfate 108 (90 108 (90 00:00: HFA 108 Base) Base) 00 (90 Base) MCG/ACT MCG/ACT MCG/ACT Albuterol Albuterol 0 No 2{puffs Albuterol Sulfate HFA Sulfate HFA [...] for 10 days gabapentin 2020- No 100mg Q.42954309 Take 1 [facility] (NEURONTIN) 01-[id number] 100 mg 00:00: 00:00 3D [...] SITagliptin 2020- No DAILY Meth s[facility]ia (JANUVIA) 10-26 st 100 MG 00:00: 00:00 Hospita tablet [...] 00:00: 00:00 Hospita capsule 00 :00 l calcitriol Yes .25ug QD Take 0.[address] (ROCALTROL) 4-28 mcg [facility] 0.25 MCG 11:41: mouth Medical capsule 24 daily. Center alendronate Yes 70mg Take [address] (FOSAMAX) 4-28 by mouth [facility] 70 MG 11:41: every 7 Medical tablet 24 days Take Center in the morning with a full glass of water, on an empty stomach, and do not take anything else by mouth or lie down for the next 30 min. . gabapentin Yes 100mg Q.19247750 Take [address] (NEURONTIN) -28 [id number] mg by L ukes 100 MG 11:41: [...] Every NOON and every NIGHT . tacrolimus 2017- Yes 1mg Q.5D Take 1 mg CH [...] l 24 Center cloNIDine 2017-0 Yes .1mg Q.82039245 Take 0.[address] HCl 4-28 [id number] mg by [facility] (CATAPRES) 11:41: 3D mouth [...] mouth Medical capsule 24 daily. Center alendronate Yes 70mg Take [address] (FOSAMAX) 4-28 by mouth [facility] 70 MG 11:41: every 7 Medical tablet 24 days Take Center in the morning with a full glass of water, on an empty stomach, and do not take anything else by mouth or lie down for the next 30 min. . gabapentin 2017 Yes 100mg Q.57539430 Take [address] (NEURONTIN) 4-28 [id number] mg by L ukes 100 MG 11:41: [...] Every NOON and every NIGHT . tacrolimus 2017- Yes 1mg Q.5D Take [address] (PROGRAF) 1 4-28 by mouth 2 Iram kes MG capsule 11:41: (two) Medica l 24 times Center daily. tacrolimus 2017-0 Yes 1mg Q.5D Take 1 [...] 11:41: daily. Medi michael 24 Center amLODIPine 2016- Yes 10mg QD Take [address] (NORVASC) -28 by mouth [facility] 10 MG 11:41: daily. Medical tablet 24 [place] losartan 2017 Yes 50mg QD Take [address] (COZAAR) 50 - by mouth Luke s MG tablet 11:41: daily. Medica l 24 [place] cloNIDine Yes .1mg Q.41033661 Take 0.[address] HCl 11-26 [id number] mg by [facility] (CATAPRES) 11:41: 3D mouth 3 Medi michael 0.1 MG 24 (three) Center tablet times daily. omeprazole 2017 Yes 40mg QD Take [address] (PRILOSEC) - by mouth [facility] 40 MG 11:41: daily. Medical capsule 24 [place] simvastatin Yes 20mg QD Take [address] (ZOCOR) 20 11-26 by mouth [facility] MG tablet 11:41: nightly. Medi michael 24 [place] calcitriol Yes .25ug QD Take 0.[address] (ROCALTROL) 11-26 mcg by [facility] 0.25 MCG 11:41: mouth Medical capsule 24 daily. [place] alendronate Yes 70mg Take [address] (FOSAMAX) 11-26 by mouth [facility] 70 MG 11:41: every 7 Medical tablet 24 days Take Center in the morning with a full glass of water, on an empty stomach, and do not take anything else by mouth or lie down for the next 30 min. . gabapentin 2017 Yes 100mg Q.17174689 Take [address] (NEURONTIN) 11-26 [id number] mg by L ukes 100 MG 11:41: 3D mouth 3 Medical capsule 24 (three) Center times daily. mycophenola 2017-0 Yes Q.5D Take by [facility] te - mouth 2 [facility] (CELLCEPT) 11:41: (two) Medica l 500 mg 24 times Center tablet daily. insulin NPH Yes 22U Inject [address] 100 unit/mL - Units [facility] (3 mL) InPn 11:41: subcutaneo Medical 24 usly every Center morning before breakfast . insulin 2016 Yes 8U Inject [address] aspart 4-28 Units [facility] (NOVOLOG) 11:41: subcutaneo Me dical 100 unit/mL 24 usly 2 Center injection (two) times daily as needed Only gives herself insulin fo BS above 100 - 8 units. insulin NPH 2017- Yes 4U Q.5D Inject [address] 100 unit/mL 4-28 Units [facility] (3 mL) InPn 11:41: subcutaneo Medical 24 usly 2 Center (two) times daily Every NOON and every NIGHT . mycophenola 2017- Yes Q.5D Take by [facility] te 4-28 mouth 2 [facility] (CELLCEPT) 11:41: (two) Medica l 500 mg 24 times Center tablet daily. predniSONE 2017 Yes 5mg QD Take [address] (DELTASONE) 4-28 by mouth Luke s 5 MG tablet 11:41: daily. Medi michael 24 [place] amLODIPine Yes 10mg QD Take [address] (NORVASC) 4-28 by mouth [facility] 10 MG 11:41: daily. Medical tablet 24 [place] losartan Yes 50mg QD Take [address] (COZAAR) 50 4-28 by mouth Luke s MG tablet 11:41: daily. Medica l 24 [place] cloNIDine Yes .1mg Q.61882247 Take 0.[address] HCl 4-28 [id number] mg by [facility] (CATAPRES) 11:41: 3D mouth [...] MG tablet 11:41: nightly. Medi michael 24 [place] calcitriol 2017- Yes .25ug QD Take 0.[address] (ROCALTROL) 4-28 mcg by [facility] 0.25 MCG 11:41: mouth Medical capsule 24 daily. [place] alendronate Yes 70mg Take [address] (FOSAMAX) 4-28 by mouth [facility] 70 MG 11:41: every 7 Medical tablet 24 days Take Center in the morning with a full glass of water, on an empty stomach, and do not take anything else by mouth or lie down for the next 30 min. . gabapentin 2017-0 Yes 100mg Q.23753406 Take [address] (NEURONTIN) 4-28 [id number] mg by L ukes 100 MG 11:41: [...] l 24 Center cloNIDine 2017-0 Yes .1mg Q.84470598 Take 0.[address] HCl 4-28 [id number] mg by [facility] (CATAPRES) 11:41: 3D mouth [...] MCG 11:41: mouth Medical capsule 24 daily. [place] alendronate 201[address] Yes 70mg Take [address] (FOSAMAX) 4-28 by mouth [facility] 70 MG 11:41: every 7 Medical tablet 24 days Take Center in the morning with a full glass of water, on an empty stomach, and do not take anything else by mouth or lie down for the next 30 min. . gabapentin 2017- Yes 100mg Q.65134818 Take [address] (NEURONTIN) 4-28 [id number] mg by L ukes 100 MG 11:41: [...] above 100 - 8 units. insulin NPH 2017- Yes 4U Q.5D Inject 4 CH I [...] 10 MG 11:41: daily. Medical tablet 24 [place] losartan 2017-0 Yes 50mg QD Take [address] (COZAAR) 50 4-28 by mouth Luke s MG tablet 11:41: daily. Medica l 24 [place] cloNIDine 2017-0 Yes .1mg Q.57731421 Take 0.[address] HCl - [id number] mg by [facility] (CATAPRES) 11:41: 3D mouth 3 Medi michael 0.1 MG 24 (three) [facility] tablet times daily. omeprazole 2017-0 Yes 40mg QD Take [address] [facility] (PRILOSEC) -28 by mouth [facility] 40 MG 11:41: daily. Medical capsule 24 [place] simvastatin 20170 Yes 20mg QD Take [address] [facility] (ZOCOR) 20 - by mouth [facility] MG tablet 11:41: nightly. Medi michael 24 [place] calcitriol 2017-0 Yes .25ug QD Take 0.[address] [facility] (ROCALTROL) 4-28 mcg [facility] 0.25 MCG 11:41: mouth Medical capsule 24 daily. [place] alendronate 0 Yes 70mg Take [address] [facility] (FOSAMAX) -28 by mouth [facility] 70 MG 11:41: every 7 Medical tablet 24 days Take Center in the morning with a full glass of water, on an empty stomach, and do not take anything else by mouth or lie down for the next 30 min. . gabapentin 2017-0 Yes 100mg [id number] Take [address] [facility] (NEURONTIN) -28 [id number] mg by L [facility] 100 MG 11:41: 3D mouth 3 Medical capsule 24 (three) Center times daily. insulin NPH 2017-0 Yes 22U Inject [address] 100 unit/mL 4-28 [facility] (3 mL) InPn 11:41: subcutaneo Medical 24 usly every Center morning before breakfast . insulin 2017-0 Yes 8U Inject [address] [facility] aspart -28 Units [facility] (NOVOLOG) 11:41: subcutaneo Me dical [...] MG tablet 11:41: daily. Medi michael 24 [place] amLODIPine 2017 Yes 10mg QD Take [address] (NORVASC) 4-28 by mouth [facility] 10 MG 11:41: daily. Medical tablet 24 [place] losartan 20170 Yes 50mg QD Take [address] [facility] (COZAAR) 50 4-28 by mouth [facility] MG tablet 11:41: daily. Medica l 24 [place] cloNIDine 20170 Yes .1mg Q.[id number] Take 0.[address] [facility] HCl 4-28 [id number] mg by [facility] (CATAPRES) 11:41: 3D mouth [...] MCG 11:41: mouth Medical capsule 24 daily. [place] alendronate 2017-0 Yes 70mg Take [address] [facility] (FOSAMAX) 4-28 by mouth [facility] 70 MG 11:41: every 7 Medical tablet 24 days Take Center in the morning with a full glass of water, on an empty stomach, and do not take anything else by mouth or lie down for the next 30 min. . gabapentin 2017-0 Yes 100mg Q.[id number] Take [address] [facility] [address] (NEURONTIN) 4-28 [id number] mg by L ukes 100 MG 11:41: [...] l 24 Center cloNIDine 2017-0 Yes .1mg Q.[id number] Take 0.[address] [facility] HCl - [id number] mg by [facility] (CATAPRES) 11:41: 3D mouth 3 Medi michael 0.1 MG 24 (three) Center tablet times daily. omeprazole Yes 40mg QD Take [address] (PRILOSEC) 4-28 by mouth [facility] 40 MG 11:41: daily. Medical capsule 24 Center simvastatin Yes 20mg QD Take [address] [facility] (ZOCOR) 20 - by mouth [facility] MG tablet 11:41: nightly. Medi michael 24 Center alendronate 2015-08- No 1{tbl} 1 tablet. [facility] (FOSAMAX) 0-04 06- [facility] 70 MG 00:00: 00:00 [facility]osp[facility] tablet 00 :00 l losartan 2020- No 2{tbl} 2 tablets. [facility] (COZAAR) 50 5-14 06- [facility] MG tablet 00:00: 00:00 Hospita 00 :00 l PredniSONE PredniSONE Yes Na Munson 1 tablet Common [facility] Prograf Prograf Yes Na Munson not Common defined [facility] Senna Senna Yes Na Munson not Common defined [facility] Catapres Catapres Yes Na Munson not Comm on defined [facility] Tradjenta Tradjenta Yes Na Munson not Co mmon defined [facility] Lactulose Lactulose Yes Na Munson not Co mmon [facility] Amlodipine Amlodipine Yes Na Munson 1 tablet Common Besylate Besylate [facility] Coreg Coreg Yes Na Munson 1 tablet Common with food [facility] ProAir HFA ProAir HFA Yes Na Munson 1 puff as Common needed [facility] Simvastatin Simvastatin Yes Na Munson 1 tablet Common in the [facility] CellCept CellCept Yes Na Munson not Comm on defined [facility] megace megace Yes Na Munson not Common defined [facility] Tylenol # 3 Tylenol # 3 Yes Na Munson not Common defined [facility] MiraLax MiraLax Yes Na Munson as Common directed [facility] Mycophenola Mycophenola Yes Na Munson as Common te Mofetil te Mofetil directed [facility] Tums Tums Yes Na Munson not Common defined [facility] Calcitriol Calcitriol Yes Na Munson not Common defined [facility] Norvasc Norvasc Yes Na Munson not Common defined [facility] Tacrolimus Tacrolimus Yes Na Munson 2 tablets Common [facility] Zocor Zocor Yes Na Munson not Common defined [facility] Insulin NPH Insulin NPH Yes Na Munson as Common (Human) (Human) directed Spiri t (Isophane) (Isophane) - C HI [facility] Prilosec Prilosec Yes Na Munson not Comm on [facility] Omeprazole Omeprazole Yes Na Munson 1 capsule Common 30 minutes [facility] before - [facility] morning [facility] Gabapentin Gabapentin Yes Na Munson 1 capsule Common [facility] Prolia Prolia Yes Na Munson as Common directed [facility] NovoLog NovoLog Yes Na Munson as Common Flexpen [facility]pen [facility] Clonidine Clonidine Yes Na Munson 1 tablet Common HCl HCl [facility] Senokot S Senokot S Yes Na Munson 1 tablet Common in the Spirit evening as - [facility] needed [facility] Magnesium Magnesium Yes Na Munson 1 tablet Common Chloride Chloride [facility] Doxycycline Doxycycline Yes Na Munson 1 capsule Common Hyclate Hyclate [facility] Azithromyci Azithromyci Yes Na Munson 2 tablets Common n n on the Spirit first day, - [facility] then [facility] tablet [facility] daily for Medical 4 days Center Flonase Flonase Yes Na Munson 2 spray in Common each [facility] nostril [facility] Humalog Humalog Yes Na Munson not Common defined [facility] Cetirizine Cetirizine Yes Na Munson TAKE 1 Common HCl HCl TABLET BY [facility] MOUTH - CHI EVERY DAY [facility] predniSONE predniSONE No 1{table QD 5 MG [...] Commen ts Source Name Name JUAN RAMON COVID-19 2020-09-24 Completed [facility] MRNA VACCINATION 00:00:00 [facility] COVID-2020-09-24 Completed [facility] MRNA VACCINATION 00:00:00 [facility] COVIDMagda 2020-09-24 Completed [facility] MRNA VACCINATION 00:00:00 [facility] COVIDMagda 2020-09-24 Completed [facility] MRNA VACCINATION 00:00:00 [facility] COVIDMagda 2020-09-24 Completed [facility] MRNA VACCINATION 00:00:00 [facility] FluAD FluAD 2020-06-02 Completed [facility] - 09:31:00 [facility] FluAD FluAD 2020-06-02 Completed [facility] - 09:31:00 [facility] FluAD FluAD 2020-06-02 Completed [facility] - 09:31:00 [facility] FluAD FluAD 2020-06-02 Completed [facility] - 09:31:00 [facility] FluAD FluAD 2020-06-02 Completed [facility] - 09:31:00 [facility] FluAD FluAD 2020-06-02 Completed [facility] - 09:31:00 [facility] FluAD FluAD 2020-06-02 Completed [facility] - 09:31:00 [facility] FluAD FluAD 2020-06-02 Completed [facility] - 09:31:00 [facility] FluAD FluAD 2020-06-02 Completed [facility] - 09:31:00 [facility] FluAD FluAD 2020-06-02 Completed [facility] - 09:31:00 [facility] FluAD FluAD 2020-06-02 Completed [facility] - 09:31:00 [facility] FluAD FluAD 2020-06-02 Completed [facility] - 09:31:00 [facility] FluAD FluAD 2020-06-02 Completed [facility] - 09:31:00 [facility] FLUZONE QUAD PF 2019-06-19 Completed [facility] 00:00:00 [facility] FLUZONE QUAD PF 2019-06-19 Completed [facility] 00:00:00 Hospital FLUZONE QUAD PF 2019-06-19 Completed [facility] 00:00:00 Hospital FLUZONE QUAD PF 2019-06-19 Completed [facility] 00:00:00 Hospital FLUZONE QUAD PF 2019-06-19 Completed [facility] 00:00:00 Hospital FLUZONE QUAD PF 2019-06-19 Completed [facility] 00:00:00 Hospital DULCE MARIA QUAD 2017-05-10 Completed [facility] 00:00:00 Hospital DULCE MARIA QUAD 2017-05-10 Completed [facility] 00:00:00 [facility] DULCE MARIA QUAD 2017-05-10 Completed [facility]idi 00:00:00 [facility] DULCE MARIA QUAD 2017-05-10 Completed [facility] 00:00:00 [facility] DULCE MARIA QUAD 2017-05-10 Completed [facility] 00:00:00 [facility] DULCE MARIA QUAD 2017-05-10 Completed [facility] 00:00:00 [facility] Pneumococcal 2015-10-14 Completed [facility] Conjugate 13-Valent 00:00:00 Hospi [facility]lemente Pneumococcal 2015-10-14 Completed [facility] 2015-10-14 Completed [facility] Conjugate 13-Valent 00:00:00 [facility] clemente Pneumococcal 2015-10-14 Completed Y[facility]idi Conjugate 13-Valent 00:00:00 [facility] clemente Pneumococcal 2015-10-14 Completed [facility] Conjugate 13-Valent 00:00:00 [facility] clemente Pneumococcal 2015-10-14 Completed [facility] Conjugate [facility] V[facility] Sign[facility] Vital Name Observation Time Observation Value Comments Source height 2022-03-10 15:45:00 62 [in_i] [facility] weight 2022-03-10 15:45:00 128 [lb_av] [facility] temperature 2022-03-10 15:45:00 98.2 [degF] [facility] bmi 2022-03-10 15:45:00 23.41 kg/m2 [facility] oximetry 2022-03-10 15:45:00 96 % [facility] respiratory rate 2022-03-10 15:45:00 16 /min Comm on [facility] blood pressure 2022-03-10 15:45:00 134 mm[Hg] [facility] blood pressure 2022-03-10 15:45:00 61 mm[Hg] [facility] - diastolic [facility] height 2022-01-27 17:15:00 62 [in_i] Common S pirit - [facility] weight 2022-01-27 17:15:00 125 [lb_av] Common [facility] temperature 2022-01-27 17:15:00 98.3 [degF] Common S pirit [facility] bmi 2022-01-27 17:15:00 22.86 [facility] oximetry 2022-01-27 17:15:00 97 % Common S [facility] respiratory rate 2022-01-27 17:15:00 16 /min Comm on [facility] blood pressure 2022-01-27 17:15:00 150 mm[Hg] Common [facility] - systolic [facility] blood pressure 2022-01-27 17:15:00 69 mm[Hg] [facility] - diastolic [facility] height 2021-09-30 09:15:00 62 [in_i] Common S [facility] weight 2021-09-30 09:15:00 118 [lb_av] Common S [facility] temperature 2021-09-30 09:15:00 98.6 [degF] Common S [facility] bmi 2021-09-30 09:15:00 21.58 kg/m2 [facility] oximetry 2021-09-30 09:15:00 99 % Common S pirit [facility] respiratory rate 2021-09-30 09:15:00 16 /min Comm on [facility] blood pressure 2021-09-30 09:15:00 132 mm[Hg] [facility] - systolic [facility] blood pressure 2021-09-30 09:15:00 68 mm[Hg] [facility] - diastolic [facility] height 2021-09-10 09:15:00 62 [in_i] [facility] weight 2021-09-10 09:15:00 118 [lb_av] Common [facility] temperature 2021-09-10 09:15:00 98.1 [degF] Common [facility] bmi 2021-09-10 09:15:00 21.58 kg/m2 [facility] oximetry 2021-09-10 09:15:00 98 % [facility] respiratory rate 2021-09-10 09:15:00 16 /min Comm on [facility] blood pressure 2021-09-10 09:15:00 158 mm[Hg] Common [facility] - systolic [facility] blood pressure 2021-09-10 09:15:00 72 mm[Hg] [facility] diastolic [facility] blood pressure 2021-08-20 09:45:00 67 mm[Hg] Common [facility] diastolic [facility] height 2021-08-20 09:45:00 62 [in_i] [facility] weight 2021-08-20 09:45:00 118 [lb_av] [facility] temperature 2021-08-20 09:45:00 98.2 [degF] [facility] bmi 2021-08-20 09:45:00 21.58 kg/m2 [facility] oximetry 2021-08-20 09:45:00 99 % [facility] respiratory rate 2021-08-20 09:45:00 18 /min Comm on [facility] blood pressure 2021-08-20 09:45:00 149 mm[Hg] Common [facility] - systolic [facility] height 2021-07-23 08:45:00 62 [in_i] [facility] weight 2021-07-23 08:45:00 120 [lb_av] [facility] temperature 2021-07-23 08:45:00 97.6 [degF] Common [facility] bmi 2021-07-23 08:45:00 21.95 kg/m2 [facility] oximetry 2021-07-23 08:45:00 99 % [facility] respiratory rate 2021-07-23 08:45:00 18 /min Comm on [facility] blood pressure 2021-07-23 08:45:00 174 mm[Hg] Common [facility] - systolic [facility] blood pressure 2021-07-23 08:45:00 70 mm[Hg] Common [facility] - diastolic [facility] height 2021-07-01 09:40:00 62 [in_i] [facility] weight 2021-07-01 09:40:00 119.8 [lb_av] [facility] temperature 2021-07-01 09:40:00 97.2 [degF] [facility] bmi 2021-07-01 09:40:00 21.91 kg/m2 [facility] oximetry 2021-07-01 09:40:00 96 % [facility] Systolic blood 2022-11-25 12:41:00 139 mm[Hg] [facility] pressure Diastolic blood 2022-11-25 12:41:00 61 mm[Hg] [facility] pressure Heart rate 2022-11-25 12:41:00 75 /min [facility] Body temperature 2022-11-25 12:36:00 36.39 Deanna [facility] Respiratory rate 2022-11-25 12:36:00 18 /min [facility] Body height 2022-11-25 12:36:00 154.9 cm [facility] Body weight 2022-11-25 12:36:00 61.961 kg [facility] BMI 2022-11-25 12:36:00 25.81 kg/m2 [facility] Oxygen saturation in 2022-11-25 12:36:00 98 /min [facility] Arterial blood by Pulse oximetry Body height 2022-08-19 18:43:00 154.9 cm [facility] Body weight 2022-08-19 18:43:00 57.607 kg [facility] BMI 2022-08-19 18:43:00 24.00 kg/m2 [facility] Systolic blood 2022-01-13 19:19:00 149 mm[Hg] [facility] pressure Diastolic blood 2022-01-13 19:19:00 68 mm[facility]Hg[facility] pressure Heart rate 2022-01-13 19:19:00 69 /min [facility] Body temperature 2022-01-13 19:19:00 36.44 Deanna [facility] Body height 2022-01-13 19:19:00 154.9 cm [facility] Body weight 2022-01-13 19:19:00 57.607 kg [facility] BMI 2022-01-13 19:19:00 24.00 kg/m2 [facility] Oxygen saturation in 2022-01-13 19:19:00 99 /min [facility] Arterial blood by Pulse oximetry Respiratory rate 2021-11-24 22:06:27 16 /min [facility] Systolic blood 2021-08-29 16:46:04 126 mm[Hg] [facility] pressure Diastolic blood 2021-08-29 16:46:04 67 mm[Hg] [facility] pressure Heart rate 2021-08-29 16:46:04 58 /min [facility] Body temperature 2021-08-29 16:46:04 36.56 Deanna [facility] Respiratory rate 2021-08-29 16:46:04 17 /min [facility] Oxygen saturation in 2021-08-29 16:46:04 98 /min [facility] Arterial blood by Pulse oximetry Body weight 2021-08-29 11:56:00 64.6 kg [facility] BMI 2021-08-29 11:56:00 26.91 kg/m2 [facility] Body height 2021-08-27 02:00:00 154.9 cm [facility] Procedures Procedure Date / Time Performing Clinician Source Performed SIX MINUTE WALK W/ PULSE 2022-11-25 19:06:28 Maya Stark [facility] OXIMETRY Sonu RUST METABOLIC 2022-11-25 16:09:00 Maya Stark [facility] PANEL Sonu HIV 1/2 ANTIGEN/ANTIBODY, 2022-11-25 16:09:00 [facility] FOURTH GENERATION, WITH Sonu REFLEXES HEPATITIS A ANTIBODY TOTAL 2022-11-25 16:09:00 [facility] Sonu HEPATITIS B CORE ANTIBODY 2022-11-25 16:09:00 [facility] TOTAL Sonu HEPATITIS B SURFACE 2022-11-25 16:09:00 [facility] ANTIBODY Sonu HEPATITIS B SURFACE 2022-11-25 16:09:00 [facility] ANTIGEN Sonu HEPATITIS B SURFACE AB, 2022-11-25 16:09:00 [facility] QUANTITATIVE Sonu HEPATITIS C ANTIBODY 2022-11-25 16:09:00 [facility] Sonu SYPHILIS TREPONEMA SCREEN 2022-11-25 16:09:00 [facility] WITH RPR CONFIRMATION Sonu (REVERSE ALGORITHM) CBC WITH PLATELET AND 2022-11-25 16:09:00 [facility] DIFFERENTIAL Sonu PROTHROMBIN TIME WITH INR 2022-11-25 16:09:00 [facility] PARTIAL THROMBOPLASTIN 2022-11-25 16:09:00 [facility] TIME (PTT) Sonu ABORH - TRANSPLANT 2022-11-25 16:09:00 [facility] Sonu DRUG GONZALEZ 9, SER/OANH, SCRN 2022-11-25 16:09:00 [facility] W/RFLX TO CONF Sonu NICOTINE AND COTININE, 2022-11-25 16:09:00 [facility] SERUM Sonu TB T-SPOT 2022-11-25 16:09[facility] C-PEPTIDE 2022-11-25 16:09[facility] [address] [facility] ELECTROPHORESIS 2022-11-25 16:09:00 [facility] Sonu ESTIMATED GFR 2022-11-25 16:09:[address] [facility] Ascencio HEPATITIS A ANTIBODY IGM 2022-11-25 16:09:00 [facility] Sonu [id number] 2022-04-30 00:00:00 ACHKA [facility] [id number] 2022-04-30 00:00:00 CHEZU [facility] [id number] 2022-04-30 00:00:00 CHEZU [facility] [id number] 2022-04-30 00:00:00 CHEZU [facility] [id number] 2022-04-28 00:00:00 ACHKA [facility] [id number] 2022-04-26 00:00:00 CHEZU [facility] [id number] 2022-04-26 00:00:00 CHEZU [facility] [id number] 2022-04-26 00:00:00 CHEZU [facility] [id number] 2022-04-26 00:00:00 [facility]KA [facility] [id number] 2022-04-26 00:00:00 CHEZU [facility] [id number] 2022-04-26 00:00:00 CHEZU [facility] [id number] 2022-04-26 00:00:00 CHEZU [facility] [id number] 2022-04-26 00:00:00 CHEZU [facility] [id number] 2022-04-26 00:00:00 CHEZU [facility] [id number] 2022-04-24 00:00:00 ACHKA [facility] [id number] 2022-04-23 00:00:00 [facility]KA [facility] CRYPTOCOCCAL ANTIGEN 2022-03-04 15:02:[address] [facility] SCREEN COMPREHENSIVE METABOLIC 2022-03-04 15:02:00 Inder Bhat [facility] PANEL CBC WITH PLATELET AND 2022-03-04 15:02:00 Inder Bhat [facility] DIFFERENTIAL CBC WITH PLATELET AND 2022-03-04 15:02:00 Inder Bhat [facility] DIFFERENTIAL CRYPTOCOCCAL ANTIGEN 2022-01-07 13:40:00 [facility] WITH [facility] AND 2022-01-07 13:40:00 Inder Bhat [facility] DIFFERENTIAL COMPREHENSIVE METABOLIC 2022-01-07 13:40:00 [facility] PANEL CBC WITH PLATELET AND 2022-01-07 13:40:00 Inder Bhat [facility] DIFFERENTIAL POC GLUCOSE 2021-11-24 22:08:00 Al-Lahiq, Maha Yazidi Ho spital POC GLUCOSE 2021-11-24 16:03:00 Al-Lahiq, Maha [facility] Ho spital POC GLUCOSE 2021-11-24 11:10:00 Al-Lahiq, Maha Yazidi Ho spital POC GLUCOSE 2021-11-24 01:29:00 Al-Lahiq, Maha Y[facility]idi Ho spital POC GLUCOSE 2021-11-23 22:05:00 Al-Lahiq, Maha Yazidi Ho spital POC GLUCOSE 2021-11-23 19:21:00 Al-Lahiq, Maha [facility]idi Ho spital HEMODIALYSIS 2021-11-23 14:07:24 Rickey Diallo Ho spital Eric POC GLUCOSE 2021-11-23 11:09:00 Al-Lahiq, Maha [facility] Ho spital POC GLUCOSE 2021-11-23 01:15:00 Al-Lahiq, Maha Yazidi Ho spital POC GLUCOSE 2021-11-22 21:35:00 Al-Lahiq, Maha Yazidi Ho spital POC GLUCOSE 2021-11-22 16:46:00 Al-Lahiq, Maha Yazidi Ho spital CT ABDOMEN PELVIS WO 2021-11-22 14:51:[facility] POC GLUCOSE 2021-11-22 11:19:00 Al-Lahiq, Maha Yazidi Ho spital BASIC METABOLIC PANEL 2021-11-22 09:13:00 Yoel [facility] Eric ESTIMATED GFR 2021-11-22 09:13:00 Rickey Diallo Ho spital Eric POC GLUCOSE 2021-11-22 01:01:00 Al-Lahiq, Maha Yazidi Ho spital POC GLUCOSE 2021-11-21 20:38:00 Al-Lahiq, Maha Yazidi Ho spital POC GLUCOSE 2021-11-21 15:37:00 Al-Lahiq, Maha Y[facility]idi Ho spital POC GLUCOSE 2021-11-21 11:23:00 Al-Lahiq, Maha Yazidi Ho spital BASIC METABOLIC PANEL 2021-11-21 08:50:00 Rickey Diallo ist [facility] Eric ESTIMATED GFR 2021-11-21 08:50:00 Rickey Diallo Ho spital Eric POC GLUCOSE 2021-11-21 00:58:00 Al-Lahiq, Maha Yazidi Ho spital POC GLUCOSE 2021-11-20 23:40:00 Al-Lahiq, Maha Y[facility]idi Ho spital POC GLUCOSE 2021-11-20 16:11:00 Al-Lahiq, Maha Yazidi Ho spital XR ABDOMEN 2 VW AP W 2021-11-20 15:47:49 [facility] UPRIGHT AND/OR DECUBITUS Ali HEMODIALYSIS 2021-11-20 13:35:03 Rickey Diallo Ho spital Eric POC GLUCOSE 2021-11-20 11:19:00 Al-Lahiq, Maha [facility] Ho spital POC GLUCOSE 2021-11-20 00:34:00 Al-Lahiq, Julya Yazidi Ho spital POC GLUCOSE 2021-11-19 21:17:00 Al-Lahiq, Maha Y[facility] Ho spital HEMODIALYSIS 2021-11-19 13:24:26 Rickey Diallo Ho spital Eric POC GLUCOSE 2021-11-19 11:32:00 Al-Lahiq, Maha [facility] Ho spital POC GLUCOSE 2021-11-19 00:55:00 Al-Lahiq, Maha Yazidi Ho spital POC GLUCOSE 2021-11-18 21:21:00 Al-Lahiq, Maha Y[facility]idi Ho spital HEMODIALYSIS 2021-11-18 18:30:30 Rickey Diallo Ho spital Eric XR ABDOMEN 1 VW 2021-11-18 17:05:00 Rickey Diallo Ho spital Eric POC GLUCOSE 2021-11-18 16:14:00 Al-Lahiq, Maha Yazidi Ho spital POC GLUCOSE 2021-11-18 10:46:00 Al-Lahiq, Iron Mcghee Ho spital PHOSPHORUS LEVEL 2021-11-18 09:34:00 Rickey Diallo H ospital Eric RENAL FUNCTION PANEL 2021-11-18 09:34:00 Rickey Diallo [facility] Eric ESTIMATED GFR 2021-11-18 09:34:00 Rickey Diallo spital Eric POC GLUCOSE 2021-11-18 00:35:00 Al-Lahiq, Iron Mcghee Ho spital POC GLUCOSE 2021-11-17 21:11:00 Al-Lahiq, Iron Mcghee Ho spital XR ABDOMEN 1 VW 2021-11-17 17:06:00 Al-Lahiq, Iron Mcghee Ho spital HEMODIALYSIS 2021-11-17 15:55:09 Rickey Diallo spital Eric POC GLUCOSE 2021-11-17 12:38:00 Al-Lahiq, Iron Mcghee spital [id number] TACROLIMUS LEVEL, 2021-11-17 08:41:00 Al-Lahiq, [facility] TROUGH COVID-19 QUALITATIVE 2021-11-17 04:32:[facility]BDOMEN PELVIS WO 2021-11-17 02:43:00 [facility]INE CULTURE 2021-11-17 01:33:00 [facility] CBC WITH PLATELET AND 2021-11-17 [facility]IVE METABOLIC 2021-11-17 01:33:00 [facility] PANEL LACTIC ACID LEVEL, SEPSIS 2021-11-17 01:33:00 [facility] - NOW AND REPEAT 2X EVERY 3 HOURS URINALYSIS SCREEN AND 2021-11-17 01:33:00 [facility] MICROSCOPY, WITH REFLEX TO CULTURE ESTIMATED GFR 2021-11-17 [facility] 2021-11-17 01:33:00 Chaim, [facility] THYROID STIMULATING 2021-11-17 01:33:00 Chaim, [facility] HORMONE POC GLUCOSE 2021-10-27 22:38:00 Al-Lahiq, Iron Duqueist Ho spital POC GLUCOSE 2021-10-27 16:01:00 Al-Lahiq, Julya Yazidi Ho spital POC GLUCOSE 2021-10-27 13:35:00 Al-Lahiq, Iron Mcghee Ho spital [id number] TACROLIMUS LEVEL, 2021-10-27 10:06:00 [facility] TROUGH Eric POC GLUCOSE 2021-10-27 01:17:00 Al-Lahiq, Iron Duqueist Ho spital POC GLUCOSE 2021-10-26 21:02:00 Al-Lahiq, Iron Yazidi Ho spital HEMODIALYSIS 2021-10-26 13:41:45 [facility] Yazidi Ho spital Eric POC GLUCOSE 2021-10-26 09:44:00 Al-Lahiq, Julya Y[facility] POC GLUCOSE 2021-10-26 00:59:00 Al-Lahiq, Iron Yazidi [facility] POC GLUCOSE 2021-10-25 20:38:00 Al-Lahiq, Iron Yazidi [facility] POC GLUCOSE 2021-10-25 16:30:00 Al-Lahiq, Iron Mcghee Ho spital [id number] TACROLIMUS LEVEL, 2021-10-25 12:49:00 [facility] TROUGH Eric POC GLUCOSE 2021-10-25 10:17:00 Al-Lahiq, Iron Yazidi Ho spital XR CHEST 1 VW PORTABLE 2021-10-25 07:54:34 Al-Lahiq, Maha [facility] POC GLUCOSE 2021-10-25 00:28:00 Al-Lahiq, Iron Yazidi Ho spital POC GLUCOSE 2021-10-24 21:31:00 Al-Lahiq, Maha [facility] POC GLUCOSE 2021-10-24 17:55:00 Al-Lahiq, Julya [facility] POC GLUCOSE 2021-10-24 11:02:00 Al-Lahiq, Iron Yazidi [facility] sp[facility] CBC WITH PLATELET AND 2021-10-24 09:44:00 [facility] 2021-10-23 22:41:00 Al-Lahiq, Iron Mcghee [facility] POC GLUCOSE 2021-10-23 21:49:00 Al-Lahiq, Iron Mcghee [facility] POC GLUCOSE 2021-10-23 17:23:00 Al-Lahiq, Iron Mcghee [facility] HEMODIALYSIS 2021-10-23 14:06:34 Rickey Diallo spital Eric XR CHEST 1 VW PORTABLE 2021-10-23 11:13:[address] [facility] POC GLUCOSE 2021-10-23 10:38:00 Al-LahiqIron Ho spital BASIC METABOLIC PANEL 2021-10-23 09:48:00 Rickey Diallo [facility] Eric PHOSPHORUS LEVEL 2021-10-23 09:48:00 Rickey Diallo H ospital Eric ESTIMATED GFR 2021-10-23 09:48:00 Rickey Diallo Ho spital Eric POC GLUCOSE 2021-10-23 01:04:00 Al-LahiqIron Ho spital POC GLUCOSE 2021-10-22 22:07:00 Al-Lahiq, Iron Mcghee Ho spital POC GLUCOSE 2021-10-22 21:27:00 Al-Lahiq, Iron Mcghee [facility] sp[facility] POC GLUCOSE 2021-10-22 17:00:00 Al-Lahiq, Iron Mcghee Ho spital XR CHEST 1 VW PORTABLE 2021-10-22 13:49:[address] [facility] POC GLUCOSE 2021-10-22 11:12:00 Al-Lahiq, Iron Yazidi Ho spital POC GLUCOSE 2021-10-22 01:14:00 Al-Lahiq, Iron Yazidi [facility] sp[facility] POC GLUCOSE 2021-10-21 16:47:00 Al-Lahiq, Iron Yazidi Ho sp[facility] HEMODIALYSIS 2021-10-21 15:37:08 Rickey Diallo Ho spital Eric XR CHEST 1 VW PORTABLE 2021-10-21 11:17:07 Ines [facility] BASIC METABOLIC PANEL 2021-10-21 10:35:00 Rickey Diallo [facility] Eric [id number] TACROLIMUS LEVEL, 2021-10-21 10:35:00 [facility] ESTIMATED GFR 2021-10-21 10:35:00 Rickey Diallo Ho spital Eric POC GLUCOSE 2021-10-21 10:28:00 Al-Lahiq, Maha Yaz[facility] spital POC GLUCOSE 2021-10-21 01:17:00 Al-Lahiq, Maha Y[facility] XR CHEST 1 VW PORTABLE 2021-10-20 22:44:00 Ines [facility] POC GLUCOSE 2021-10-20 21:45:00 Al-Lahiq, Maha Y[facility] POC GLUCOSE 2021-10-20 16:33:00 Al-Lahiq, Maha Yaz[facility] XR CHEST 1 VW PORTABLE 2021-10-20 13:15:00 Ines [facility] BASIC METABOLIC PANEL 2021-10-20 10:40:00 Rickey Diallo [facility] Eric ESTIMATED GFR 2021-10-20 10:40:00 Rickey Diallo Ho spital Eric POC GLUCOSE 2021-10-20 10:04:00 Al-Lahiq, Maha Y[facility] POC GLUCOSE 2021-10-20 00:56:00 Al-Lahiq, Maha Yaz[facility] POC GLUCOSE 2021-10-19 23:32:00 Al-Lahiq, Maha Y[facility] POC GLUCOSE 2021-10-19 16:47:00 Al-Lahiq, Maha Y[facility] HEMODIALYSIS 2021-10-19 15:27:26 Rickey Diallo Ho spital Eric XR CHEST 1 VW PORTABLE 2021-10-19 10:46:35 Ines [facility] POC GLUCOSE 2021-10-19 10:36:00 Al-Lahiq, Maha Yazidi [facility] spital POC GLUCOSE 2021-10-19 01:10:00 Al-Lahiq, Maha Yazidi [facility] spital POC GLUCOSE 2021-10-18 21:40:00 Al-Lahiq, Maha Yaz[facility] XR CHEST 1 VW PORTABLE 2021-10-18 17:35:00 Ines [facility] POC GLUCOSE 2021-10-18 16:17:00 Al-Lahiq, Maha Yaz[facility] POC GLUCOSE 2021-10-18 10:55:00 Al-Lahiq, Julya Yazidi [facility] sp[facility] XR CHEST 1 VW PORTABLE 2021-10-18 10:38:56 Ines [facility] POC GLUCOSE 2021-10-18 00:23:00 Al-Lahiq, Julya Yazidi [facility] sp[facility] POC GLUCOSE 2021-10-17 22:03:00 Al-Lahiq, Iron Yazidi Ho spital US DUPLEX VENOUS UPPER 2021-10-17 20:00:00 Al-Lahiq, [facility] EXTREMITY RIGHT POC GLUCOSE 2021-10-17 16:31:00 Al-Lahiq, Iron Yazidi Ho spital XR CHEST 1 VW PORTABLE 2021-10-17 13:10:00 Ines [facility] POC GLUCOSE 2021-10-17 11:05:00 Al-Lahiq, Julya Yazidi Ho spital POC GLUCOSE 2021-10-17 03:24:00 Al-Lahiq, Maha Yazidi [facility] sp[facility] POC GLUCOSE 2021-10-17 02:53:00 Al-Lahiq, Julya Yazidi Ho spital POC GLUCOSE 2021-10-17 02:17:00 Al-Lahiq, Maha Yaz[facility] POC GLUCOSE 2021-10-16 21:01:00 Al-Lahiq, Julya Yazidi [facility] sp[facility] POC GLUCOSE 2021-10-16 19:25:00 Al-Lahiq, Julya Yazidi [facility] HEMODIALYSIS 2021-10-16 17:25:53 Rickey Diallo [facility] Eric POC GLUCOSE 2021-10-16 17:11:00 Al-Lahiq, Julya Yazidi [facility] sp[facility] XR CHEST 1 VW PORTABLE 2021-10-16 13:25:15 Ines [facility] POC GLUCOSE 2021-10-16 10:08:00 Iron Barton Ho spital CBC WITH PLATELET AND 2021-10-16 10:01:00 Paula Stewart [facility] DIFFERENTIAL IONIZED CALCIUM 2021-10-16 10:01:00 Terry [facility] MAGNESIUM LEVEL 2021-10-16 10:01:00 Terry [facility] PHOSPHORUS LEVEL 2021-10-16 10:01:00 Terry [facility] COMPREHENSIVE METABOLIC 2021-10-16 10:01:[address] [facility] PANEL Eric ESTIMATED GFR 2021-10-16 10:01:00 Marina Dialloo Yazidi spital Eric POC GLUCOSE 2021-10-16 01:00:00 Al-Iron Sloan Ho spital POC GLUCOSE 2021-10-15 21:29:00 Al-Iron Sloan Ho spital CHEST TUBE INSERTION 2021-10-15 19:29:15 [facility] 1 VW PORTABLE 2021-10-15 19:28:00 [facility]ST 1 VW PORTABLE 2021-10-15 17:53:00 [facility] XR ABDOMEN 1 VW 2021-10-15 17:35:00 Renetta [facility] Ali POC GLUCOSE 2021-10-15 16:48:00 AlIron Clinton Ho spital POC GLUCOSE 2021-10-15 09:59:00 Al-Iron Sloan Ho spital BASIC METABOLIC PANEL 2021-10-15 09:57:00 Paula Stewart [facility] CBC WITH PLATELET AND 2021-10-15 09:57:00 Paula Stewart [facility] DIFFERENTIAL IONIZED CALCIUM 2021-10-15 09:57:00 [facility] MAGNESIUM LEVEL 2021-10-15 09:57:00 [facility] PHOSPHORUS LEVEL 2021-10-15 09:57:00 [facility] ESTIMATED GFR 2021-10-15 09:57:00 [facility] 2021-10-15 08:54:00 Al-Jose DanielqIron Ho spital POC GLUCOSE 2021-10-15 00:55:00 Al-LahiqIron spital POC GLUCOSE 2021-10-14 21:03:00 Al-LahiqIron Ho spital TROPONIN T 2021-10-14 20:21:00 Rosa M Palm H ospital POC GLUCOSE 2021-10-14 16:55:00 Al-LahiqIron spital TROPONIN T 2021-10-14 16:41:00 Rosa M Palm H ospital ECG 12-LEAD 2021-10-14 16:26:41 Jorge Luis [facility] Yasser HEMODIALYSIS 2021-10-14 13:31:52 Rickey Diallo Ho spital Eric POC GLUCOSE 2021-10-14 12:57:00 Al-Jose DanielqIron spital BASIC METABOLIC PANEL 2021-10-14 06:25:00 alma [facility] HC COMPLETE BLD COUNT 2021-10-14 06:25:00 [facility] W/AUTO DIFF IONIZED CALCIUM 2021-10-14 06:25:00 [facility] MAGNESIUM LEVEL 2021-10-14 06:25:00 [facility] PHOSPHORUS LEVEL 2021-10-14 06:25:00 [facility] ESTIMATED GFR 2021-10-14 06:25:00 [facility] POC GLUCOSE 2021-10-14 01:03:00 Al-Iron Sloan Ho spital POC GLUCOSE 2021-10-13 21:40:00 Al-LahiqIron Ho spital HEMODIALYSIS 2021-10-13 21:08:11 Souleymane Jackson [facility] Ali POC GLUCOSE 2021-10-13 16:19:00 Iron Barton spital POC GLUCOSE 2021-10-13 12:51:00 Iron Barton spital HC COMPLETE BLD COUNT 2021-10-13 11:15:00 [facility] W/AUTO DIFF BASIC METABOLIC PANEL 2021-10-13 11:15:00 [facility] MAGNESIUM LEVEL 2021-10-13 11:15:00 [facility] IONIZED CALCIUM 2021-10-13 11:15:00 [facility] PHOSPHORUS LEVEL 2021-10-13 11:15:00 [facility] ESTIMATED GFR 2021-10-13 11:15:00 [facility] POC GLUCOSE 2021-10-13 04:16:00 Iron Barton spital HC COMPLETE BLD COUNT 2021-10-13 03:48:00 [facility], [facility] W/AUTO DIFF BASIC METABOLIC PANEL 2021-10-13 03:48:00 [facility] MAGNESIUM LEVEL 2021-10-13 03:48:00 [facility] IONIZED CALCIUM 2021-10-13 03:48:00 [facility] PHOSPHORUS LEVEL 2021-10-13 03:48:00 [facility] ESTIMATED GFR 2021-10-13 03:48:00 [facility] ECG 12-LEAD 2021-10-13 02:30:52 Jorge Luis [facility] Yasser POC GLUCOSE 2021-10-13 01:54:00 Iron Barton spital POC GLUCOSE 2021-10-13 01:52:00 Iron Barton spital OR [place] < 1 HOUR 2021-10-13 00:45:00 Az Francois ospital Manolo INSERTION, CATHETER, 2021-10-12 23:42:00 Az Francois [facility] DIALYSIS, PERITONEAL, Manolo LAPAROSCOPIC LAPAROSCOPIC PERITONEAL 2021-10-12 23:42:00 Az Francois [facility] RESECTION Manolo POC GLUCOSE 2021-10-12 21:37:00 Al-Iron Sloan spital TYPE AND SCREEN 2021-10-12 20:38:00 Az Francois H ospital Manolo HEPATITIS B SURFACE AB, 2021-10-12 17:50:00 Abdellatif [facility] QUANTITATIVE Ali POTASSIUM LEVEL 2021-10-12 17:50:00 Brijesh Jorge H ospital Fortunato HEPATITIS B SURFACE 2021-10-12 17:24:00 [facility] ANTIBODY Eric HEPATITIS B SURFACE 2021-10-12 17:24:00 [facility] ANTIGEN Eric HEPATITIS B CORE ANTIBODY 2021-10-12 17:24:00 [facility] TOTAL Eric POC GLUCOSE 2021-10-12 16:12:00 Al-LahiqIron Ho spital MO AN ELECTIVE 2021-10-12 11:55:00 Jhon Wesley Ho spital ENDOTRACHEAL AIRWAY POC GLUCOSE 2021-10-12 11:01:00 Al-Lahiq, Iron Mcghee Ho spital POC GLUCOSE 2021-10-12 00:43:00 Al-Lahiq, Iron Yazidi Ho spital POC GLUCOSE 2021-10-11 21:35:00 Al-Lahiq, Iron Yazidi Ho spital POC GLUCOSE 2021-10-11 16:11:00 Al-Lahiq, Iron Yazidi Ho spital POC GLUCOSE 2021-10-11 10:13:00 Al-Lahiq, Iron Yazidi Ho spital POC GLUCOSE 2021-10-11 05:17:00 Al-Lahiq, Iron Yazidi Ho spital POC GLUCOSE 2021-10-11 01:44:00 Al-Lahiq, Iron Yazidi Ho spital POC GLUCOSE 2021-10-10 22:06:00 Al-Lahiq, Iron Yazidi Ho spital TTE COMPLETE, WO CONTRAST, 2021-10-10 21:03:00 Rosa M Palm [facility] W DOPPLER ([id number]) POC GLUCOSE 2021-10-10 17:12:00 Al-Jose Danielq, Iron Mcghee [facility] sp[facility] POC GLUCOSE 2021-10-10 14:19:00 Al-Jose Danielq, [facility] [id number] TACROLIMUS LEVEL, 2021-10-10 10:35:00 Al-Jose Danielq, [facility] BASIC METABOLIC PANEL 2021-10-10 10:35:00 Al-Jose Danielq, [facility] IRON LEVEL 2021-10-10 10:35:00 Rickey Diallo leigh Reyes FERRITIN LEVEL 2021-10-10 10:35:00 Rickey Diallo spital Eric RENAL FUNCTION PANEL 2021-10-10 10:35:00 Rickey Diallo [facility] Eric ESTIMATED GFR 2021-10-10 10:35:00 Al-Jose Danielq [facility] POC GLUCOSE 2021-10-10 10:25:00 Al-Jose Danielq [facility] POC GLUCOSE 2021-10-10 05:05:00 Al-Jose Danielq [facility] POC GLUCOSE 2021-10-10 04:13:00 Al-Jose Danielq [facility] Yazidi Ho spital ZZCOVID-19 ANTI-SPIKE IGG 2021-10-10 04:07:00 [facility] ANTIBODY TITER ZZCOVID-19 SEROLOGY 2021-10-10 04:07:00 Al-Jose Daniel [facility] PATIENT SURVEILLANCE POC GLUCOSE 2021-10-10 02:54:00 Al-Jose Danielq, [facility] POC GLUCOSE 2021-10-10 02:40:00 Al-Jose Daniel [facility] Yazidi spital TROPONIN T 2021-10-09 23:39:00 Chacha Mishra spital LACTIC ACID LEVEL, SEPSIS 2021-10-09 23:39:[address] [facility] - NOW AND REPEAT 2X EVERY 3 HOURS POC GLUCOSE 2021-10-09 22:41:00 Iron Barton spital TROPONIN T 2021-10-09 20:24:00 Chacha Mishra spital LACTIC ACID LEVEL, SEPSIS 2021-10-09 20:24:00 [facility]AT 2X EVERY 3 HOURS COVID-19 QUALITATIVE 2021-10-09 19:24:00 [facility]INALYSIS SCREEN AND 2021-10-09 19:23:00 Tad [facility] MICROSCOPY, WITH REFLEX TO CULTURE URINE CULTURE 2021-10-09 18:44:00 Chacha Mishra spital XR CHEST 1 VW PORTABLE 2021-10-09 17:00:00 [facility] COMPLETE BLD COUNT 2021-10-09 16:56:00 [facility]FF COMPREHENSIVE METABOLIC 2021-10-09 16:56:00 Tad [facility] PANEL PHOSPHORUS LEVEL 2021-10-09 16:56:00 Chacha Mishra ospital MAGNESIUM LEVEL 2021-10-09 16:56:00 Chacha Mishra spital TROPONIN T 2021-10-09 16:56:00 Chacha Mishra spital B NATRIURETIC PEPTIDE 2021-10-09 16:56:00 [facility] LACTIC ACID LEVEL, SEPSIS 2021-10-09 16:56:[address] [facility] - NOW AND REPEAT 2X EVERY 3 HOURS ESTIMATED GFR 2021-10-09 16:56:00 Chacha Mishra spital ECG ED PRELIMINARY 2021-10-09 16:45:52 Tad [facility] INTERPRETATION ECG 12-LEAD 2021-10-09 16:39:19 Chacha Mishra spital CBC WITH PLATELET AND 2021-09-23 17:01:00 [facility] DIFFERENTIAL COMPREHENSIVE METABOLIC 2021-09-23 17:01:00 [facility] PANEL HEMOGLOBIN A1C 2021-09-23 17:01:00 [facility] VITAMIN D 25 HYDROXY LEVEL 2021-09-23 17:01:00 [facility] MICROALBUMIN / CREATININE 2021-09-23 17:01:00 [facility] URINE RATIO LIPID PANEL 2021-09-23 17:01:00 [facility] T4, FREE 2021-09-23 17:01:00 [facility] THYROID STIMULATING 2021-09-23 17:01:00 [facility] HORMONE AMYLASE LEVEL 2021-09-23 17:01:00 [facility] LIPASE LEVEL 2021-09-23 17:01:00 [facility] POC GLUCOSE 2021-08-29 17:24:00 [facility] BASIC METABOLIC PANEL 2021-08-29 12:26:00 [facility] Eric HC COMPLETE BLD COUNT 2021-08-29 12:26:00 Carlos [facility] W/AUTO DIFF ESTIMATED GFR 2021-08-29 12:26:00 [facility] POC GLUCOSE 2021-08-29 11:35:00 [facility] POC GLUCOSE 2021-08-29 02:49:00 [facility] POC GLUCOSE 2021-08-29 02:[facility]:00 [facility] 2021-08-28 22:16:00 [facility] POC GLUCOSE 2021-08-28 17:32:00 [facility] X[facility] 1 VW PORTABLE 2021-08-28 12:54:57 Yoel [facility] Eric POC GLUCOSE 2021-08-28 12:27:00 [facility] BASIC METABOLIC PANEL 2021-08-28 11:41:00 [facility] HC COMPLETE BLD COUNT 2021-08-28 11:41:00 Carlos [facility] W/AUTO DIFF ESTIMATED GFR 2021-08-28 11:41:00 [facility] POC GLUCOSE 2021-08-28 02:22:00 [facility] POC GLUCOSE 2021-08-27 22:07:00 [facility] POC GLUCOSE 2021-08-27 16:58:00 [facility] POC GLUCOSE 2021-08-27 12:17:00 Kayce Parks Ho spital COVID-19 SEROLOGY PATIENT 2021-08-27 12:09:00 [facility] SURVEILLANCE Alex BASIC METABOLIC PANEL 2021-08-27 12:09:00 [facility] HC COMPLETE BLD COUNT 2021-08-27 12:09:00 [facility] W/AUTO DIFF [id number] TACROLIMUS LEVEL, 2021-08-27 12:09:00 Rickey Diallo [facility] TROUGH Eric ESTIMATED GFR 2021-08-27 12:09:00 [facility] COVID-19 ANTI-SPIKE IGG 2021-08-27 12:09:00 [facility] ANTIBODY TITER Alex POC GLUCOSE 2021-08-27 01:47:00 [facility] POC GLUCOSE 2021-08-26 23:16:00 Kayce Parks spital [id number] TACROLIMUS LEVEL, 2021-08-26 19:38:00 Marthaky [facility] RANDOM COVID-19 QUALITATIVE 2021-08-26 19:38:00 [facility] POC GLUCOSE 2021-08-26 17:32:00 Reynaldo Navarreteist Ho spital POC GLUCOSE 2021-08-26 14:45:00 MougourJuan Miguel alan [facility] spital LACTIC ACID LEVEL, SEPSIS 2021-08-26 10:08:00 [facility] NOW AND REPEAT 2X EVERY 3 HOURS COMPREHENSIVE METABOLIC 2021-08-26 10:08:00 Kayce Parks [facility] PANEL HC COMPLETE BLD COUNT 2021-08-26 10:08:00 Neto [facility] W/AUTO DIFF Latrondria Sanam ESTIMATED GFR 2021-08-26 10:08:00 Kayce Parks Ho spital URINALYSIS SCREEN AND 2021-08-26 05:25:00 [facility], WITH REFLEX TO CULTURE COMPREHENSIVE METABOLIC 2021-08-26 04:50:00 Kayce Parks [facility] PANEL ESTIMATED GFR 2021-08-26 04:50:00 Kayce Parks spital HC COMPLETE BLD COUNT 2021-08-26 03:52:00 Tad [facility] W/AUTO DIFF LACTIC ACID LEVEL, SEPSIS 2021-08-26 03:52:00 [facility] NOW AND REPEAT 2X EVERY 3 HOURS MAGNESIUM LEVEL 2021-08-26 03:52:00 Tad [facility]ielle [facility] spital PHOSPHORUS LEVEL 2021-08-26 03:52:00 Chacha Mishra ospital BLOOD CULTURE, AEROBIC & 2021-08-26 03:50:00 [facility] ANA[facility]OB[facility] CHEST 2 VW 2021-08-26 02:36:00 [facility] spital URINE CULTURE 2021-08-26 02:18:[address] [facility] ABDOMEN PELVIS WO 2021-08-26 01:58:43 [facility]INE CULTURE 2021-07-06 16:41:00 [facility] Ali HC COMPLETE BLD COUNT 2021-07-06 14:40:00 [facility] W/AUTO DIFF Ali COMPREHENSIVE METABOLIC 2021-07-06 14:40:00 [facility] PANEL Ali MAGNESIUM LEVEL 2021-07-06 14:40:00 [facility] Ali PHOSPHORUS LEVEL 2021-07-06 14:40:00 [facility] Ali URINALYSIS SCREEN AND 2021-07-06 14:40:00 [facility] MICROSCOPY, WITH REFLEX TO Ali CULTURE BK VIRUS BY PCR 2021-07-06 14:40:00 [facility] Ali PROTEIN, URINE, RANDOM 2021-07-06 14:40:00 [facility] Ali CREATININE LEVEL, URINE, 2021-07-06 14:40:00 [facility] RANDOM Ali PARATHYROID HORMONE 2021-07-06 14:40:00 [facility] Ali CYTOMEGALOVIRUS BY PCR 2021-07-06 14:40:00 [facility] Ali VITAMIN D 25 HYDROXY LEVEL 2021-07-06 14:40:00 [facility] Ali [id number] TACROLIMUS LEVEL, 2021-07-06 14:40:00 [facility] RANDOM Ali PROTHROMBIN TIME WITH INR 2021-07-06 14:40:00 [facility] Ali ESTIMATED GFR 2021-07-06 14:40:00 [facility] Ali DONOR SPECIFIC ANTIBODY 2021-07-06 14:40:00 [facility] Ali CRYPTOCOCCAL ANTIGEN 2021-07-06 14:40:00 [facility] SCREEN Ali HC COMPLETE BLD COUNT 2021-04-07 12:55:00 [facility] W/AUTO DIFF Ali COMPREHENSIVE METABOLIC 2021-04-07 12:55:00 [facility] PANEL Ali CREATININE LEVEL, URINE, 2021-04-07 12:55:00 [facility] RANDOM Ali [id number] TACROLIMUS LEVEL, 2021-04-07 12:55:00 [facility] RANDOM Ali MAGNESIUM LEVEL 2021-04-07 12:55:00 [facility] Ali PHOSPHORUS LEVEL 2021-04-07 12:55:00 [facility] Ali PROTEIN, URINE, RANDOM 2021-04-07 12:55:00 [facility] Ali URINALYSIS SCREEN AND 2021-04-07 12:55:00 [facility] MICROSCOPY, WITH REFLEX TO Ali CULTURE BK VIRUS BY PCR 2021-04-07 12:55:00 [facility] Ali CYTOMEGALOVIRUS BY PCR 2021-04-07 12:55:00 [facility] Ali ESTIMATED GFR 2021-04-07 12:55:00 [facility] Ali CRYPTOCOCCAL ANTIGEN 2021-04-07 12:55:00 [facility] SCREEN Ali URINE CULTURE 2021-04-07 12:55:00 [facility] HC COMPLETE BLD COUNT 2021-02-16 14:55:00 [facility] W/AUTO DIFF Ali COMPREHENSIVE METABOLIC 2021-02-16 14:55:00 [facility] PANEL Ali CREATININE LEVEL, URINE, 2021-02-16 14:55:00 [facility] RANDOM Ali [id number] TACROLIMUS LEVEL, 2021-02-16 14:55:00 [facility] RANDOM Ali MAGNESIUM LEVEL 2021-02-16 14:55:00 [facility] Ali PHOSPHORUS LEVEL 2021-02-16 14:55:00 [facility] Ali PROTEIN, URINE, RANDOM 2021-02-16 14:55:00 [facility] Ali URINALYSIS SCREEN AND 2021-02-16 14:55:00 [facility] MICROSCOPY, WITH REFLEX TO Ali CULTURE BK VIRUS BY PCR 2021-02-16 14:55:00 [facility] Ali CYTOMEGALOVIRUS BY PCR 2021-02-16 14:55:00 [facility] PARATHYROID HORMONE 2021-02-16 14:55:00 [facility] HEMOGLOBIN A1C 2021-02-16 14:55:00 [facility] LIPID PANEL 2021-02-16 14:55:00 [facility] VITAMIN D 25 HYDROXY LEVEL 2021-02-16 14:55:00 [facility] T4, FREE 2021-02-16 14:55:00 [facility] THYROID STIMULATING 2021-02-16 14:55:00 [facility] HORMONE ESTIMATED GFR 2021-02-16 14:55:00 [facility] Ali CRYPTOCOCCAL ANTIGEN 2021-02-16 14:55:00 [facility] SCREEN Ali URINE CULTURE 2021-02-16 14:55:00 [facility] Ali POC GLUCOSE 2021-01-27 17:31:00 MarleniSharifa Yazidi spital POC GLUCOSE 2021-01-27 17:10:00 Marleni Sharifa Yazidi spital POC GLUCOSE 2021-01-27 16:46:00 MarleniSharifa Yazidi spital POC GLUCOSE 2021-01-27 16:06:00 Marleni Sharifa Yazidi spital LIGATION OR BANDING, 2021-01-27 15:49:00 Marleni [facility] FISTULA, AV POC GLUCOSE 2021-01-27 15:44:00 Marleni Sharifa Yazidi spital MO AN PERIPHERAL BLOCK 2021-01-27 15:35:00 [facility] E. POC GLUCOSE 2021-01-27 13:55:00 Marleni Sharifa Yazidi spital POC PANEL 2021-01-27 12:59:00 Marleni Sharifa Yazidi spital POC PANEL 2021-01-27 12:55:00 Marleni Sharifa Yazidi spital POC GLUCOSE 2021-01-27 12:38:00 Marleni Sharifa Yazidi Ho spital TTE COMPLETE, WO CONTRAST, 2021-01-22 21:12:11 Jus Martínez [facility] W DOPPLER ([id number]) Penelope COVID-19 QUALITATIVE 2021-01-21 19:35:00 Marleni [facility] RT-PCR US DUPLEX HEMODIALYSIS AVG 2021-01-21 18:12:44 Cornelio Cervantes [facility] AVF ACCESS BONE DENSITY 2021-01-19 16:17:47 Onelia Bailey [facility] HC COMPLETE BLD COUNT 2021-01-19 12:55:00 [facility] W/AUTO DIFF Ali COMPREHENSIVE METABOLIC 2021-01-19 12:55:00 [facility] PANEL Ali CREATININE LEVEL, URINE, 2021-01-19 12:55:00 [facility] RANDOM Ali [id number] TACROLIMUS LEVEL, 2021-01-19 12:55:00 [facility] RANDOM Ali MAGNESIUM LEVEL 2021-01-19 12:55:00 [facility] Ali PHOSPHORUS LEVEL 2021-01-19 12:55:00 [facility] Ali PROTEIN, URINE, RANDOM 2021-01-19 12:55:00 [facility] URINALYSIS SCREEN AND 2021-01-19 12:55:00 [facility] MICROSCOPY, WITH REFLEX TO Ali CULTURE BK VIRUS BY PCR 2021-01-19 12:55:00 [facility] Ali CYTOMEGALOVIRUS BY PCR 2021-01-19 12:55:00 [facility] THYROID STIMULATING 2021-01-19 12:55:00 [facility] HORMONE T4, FREE 2021-01-19 12:55:00 [facility] HEMOGLOBIN A1C 2021-01-19 12:55:00 [facility] PARATHYROID HORMONE 2021-01-19 12:55:00 [facility] LIPID PANEL 2021-01-19 12:55:00 [facility] VITAMIN D 25 HYDROXY LEVEL 2021-01-19 12:55:00 [facility] PROTHROMBIN TIME WITH INR 2021-01-19 12:55:00 [facility] Ali ESTIMATED GFR 2021-01-19 12:55:00 [facility] DONOR SPECIFIC ANTIBODY 2021-01-19 12:55:00 [facility] Ali CRYPTOCOCCAL ANTIGEN 2021-01-19 12:55:00 [facility] SCREEN Ali URINE CULTURE 2021-01-19 12:55:00 [facility] HC COMPLETE BLD COUNT 2020-12-24 12:45:00 [facility] W/AUTO DIFF Ali ESTIMATED GFR 2020-12-24 12:45:00 [facility] Ali AMYLASE LEVEL 2020-12-24 12:45:00 [facility] LIPASE LEVEL 2020-12-24 12:45:00 [facility] T4, FREE 2020-12-24 12:45:00 [facility] VITAMIN D 25 HYDROXY LEVEL 2020-12-24 12:45:00 [facility] THYROID STIMULATING 2020-12-24 12:45:00 [facility] HORMONE PARATHYROID HORMONE 2020-12-24 12:45:00 [facility] CRYPTOCOCCAL ANTIGEN 2020-12-24 12:45:00 [facility] SCREEN Ali URINE CULTURE 2020-12-24 12:45:00 [facility] Ali CYTOMEGALOVIRUS BY PCR 2020-12-24 12:45:00 [facility] Ali HEMOGLOBIN A1C 2020-12-24 12:45:00 [facility] Ali BK VIRUS BY PCR 2020-12-24 12:45:00 [facility] Ali URINALYSIS SCREEN AND 2020-12-24 12:45:00 [facility] MICROSCOPY, WITH REFLEX TO Ali CULTURE PROTEIN, URINE, RANDOM 2020-12-24 12:45:00 [facility] Ali PHOSPHORUS LEVEL 2020-12-24 12:45:00 [facility] Ali MAGNESIUM LEVEL 2020-12-24 12:45:00 [facility] Ali [id number] TACROLIMUS LEVEL, 2020-12-24 12:45:00 [facility] RANDOM Ali CREATININE LEVEL, URINE, 2020-12-24 12:45:00 [facility] RANDOM Ali COMPREHENSIVE METABOLIC 2020-12-24 12:45:00 [facility] PANEL Ali CRYPTOCOCCAL ANTIGEN 2020-11-24 12:12:00 [facility] SCREEN Ali URINE CULTURE 2020-11-24 12:12:00 [facility] Ali HC COMPLETE BLD COUNT 2020-11-24 12:12:00 [facility] W/AUTO DIFF Ali COMPREHENSIVE METABOLIC 2020-11-24 12:12:00 [facility] PANEL Ali CREATININE LEVEL, URINE, 2020-11-24 12:12:00 [facility] RANDOM Ali [id number] TACROLIMUS LEVEL, 2020-11-24 12:12:00 [facility] RANDOM Ali MAGNESIUM LEVEL 2020-11-24 12:12:00 [facility] Ali PHOSPHORUS LEVEL 2020-11-24 12:12:00 [facility] Ali PROTEIN, URINE, RANDOM 2020-11-24 12:12:00 [facility] Ali URINALYSIS SCREEN AND 2020-11-24 12:12:00 [facility] MICROSCOPY, WITH REFLEX TO Ali CULTURE BK VIRUS BY PCR 2020-11-24 12:12:00 [facility] Ali CYTOMEGALOVIRUS BY PCR 2020-11-24 12:12:00 [facility] Ali ESTIMATED GFR 2020-11-24 12:12:00 [facility] Ali HC COMPLETE BLD COUNT 2020-11-10 14:14:00 [facility] W/AUTO DIFF Ali COMPREHENSIVE METABOLIC 2020-11-10 14:14:00 [facility] PANEL Ali CREATININE LEVEL, URINE, 2020-11-10 14:14:00 [facility] RANDOM Ali [id number] TACROLIMUS LEVEL, 2020-11-10 14:14:00 [facility] RANDOM Ali MAGNESIUM LEVEL 2020-11-10 14:14:00 [facility] Ali PHOSPHORUS LEVEL 2020-11-10 14:14:00 [facility] Ali PROTEIN, URINE, RANDOM 2020-11-10 14:14:00 [facility] Ali URINALYSIS SCREEN AND 2020-11-10 14:14:00 [facility] MICROSCOPY, WITH REFLEX TO Ali CULTURE BK VIRUS BY PCR 2020-11-10 14:14:00 [facility] Ali CYTOMEGALOVIRUS BY PCR 2020-11-10 14:14:00 [facility] Ali ESTIMATED GFR 2020-11-10 14:14:00 [facility] Ali URINE CULTURE 2020-11-10 13:00:00 [facility] Ali URINE CULTURE 2020-10-27 15:40:00 [facility] Ali CRYPTOCOCCAL ANTIGEN 2020-10-27 12:55:00 [facility] SCREEN Ali CYTOMEGALOVIRUS BY PCR 2020-10-27 12:55:00 [facility] Ali BK VIRUS BY PCR 2020-10-27 12:55:00 [facility] Ali URINALYSIS SCREEN AND 2020-10-27 12:55:00 [facility] MICROSCOPY, WITH REFLEX TO Ali CULTURE PROTEIN, URINE, RANDOM 2020-10-27 12:55:00 [facility] Ali PHOSPHORUS LEVEL 2020-10-27 12:55:00 [facility] Ali MAGNESIUM LEVEL 2020-10-27 12:55:00 [facility] Ali [id number] TACROLIMUS LEVEL, 2020-10-27 12:55:00 [facility] RANDOM Ali CREATININE LEVEL, URINE, 2020-10-27 12:55:00 [facility] RANDOM Ali AMYLASE LEVEL 2020-10-27 12:55:00 [facility] HC COMPLETE BLD COUNT 2020-10-27 12:55:00 [facility] W/AUTO DIFF COMPREHENSIVE METABOLIC 2020-10-27 12:55:00 [facility] PANEL HEMOGLOBIN A1C 2020-10-27 12:55:00 [facility] LIPASE LEVEL 2020-10-27 12:55:00 [facility] T4, FREE 2020-10-27 12:55:00 [facility] THYROID STIMULATING 2020-10-27 12:55:00 [facility] HORMONE VITAMIN D 25 HYDROXY LEVEL 2020-10-27 12:55:00 [facility] PARATHYROID HORMONE 2020-10-27 12:55:00 [facility] ESTIMATED GFR 2020-10-27 12:55:00 [facility] URINE CULTURE 2020-10-13 13:29:00 Maya Stark [facility]igh Ascencio BASIC METABOLIC PANEL 2020-10-13 12:12:[address] [place] [facility] Sonu URINALYSIS SCREEN AND 2020-10-13 [facility] Sonu CULTURE ESTIMATED GFR 2020-10-13 12:12:00 Myaa Stark CREATININE LEVEL, URINE, 2020-10-13 12:12:00 [facility] RANDOM Ali PROTEIN, URINE, RANDOM 2020-10-13 12:12:00 [facility] Terrence HEPATIC FUNCTION PANEL 2020-10-13 12:12:00 [place] [facility] Sonu URINE CULTURE 2020-09-30 14:40:00 [facility] Ali COMPREHENSIVE METABOLIC 2020-09-30 14:40:00 [facility] PANEL Ali [id number] TACROLIMUS LEVEL, 2020-09-30 14:40:00 [facility] RANDOM Ali HC COMPLETE BLD COUNT 2020-09-30 14:40:00 [facility] W/AUTO DIFF Ali MAGNESIUM LEVEL 2020-09-30 14:40:00 [facility] Ali PHOSPHORUS LEVEL 2020-09-30 14:40:00 [facility] Ali PROTEIN, URINE, RANDOM 2020-09-30 14:40:00 [facility] Ali CREATININE LEVEL, URINE, 2020-09-30 14:40:00 [facility] RANDOM Ali URINALYSIS SCREEN AND 2020-09-30 14:40:00 [facility] MICROSCOPY, WITH REFLEX TO Ali CULTURE ESTIMATED GFR 2020-09-30 14:40:00 [facility] Ali POC GLUCOSE 2020-09-24 17:32:00 Fan, [facility] Yazidi Ho spital POC GLUCOSE 2020-09-24 13:38:00 Fan, [facility] Ho spital POC GLUCOSE 2020-09-24 12:17:00 Ritesh [facility] spital [id number] TACROLIMUS LEVEL, 2020-09-24 12:00:00 [facility] RANDOM HC COMPLETE BLD COUNT 2020-09-24 12:00:[address] [facility] W/AUTO DIFF SMEAR REVIEW 2020-09-24 12:00:00 Ritesh [facility] Yazidi Ho spital BASIC METABOLIC PANEL 2020-09-24 10:00:[address] [facility] ESTIMATED GFR 2020-09-24 10:00:00 Ritesh, [facility] spital POC GLUCOSE 2020-09-24 03:05:00 Ritesh, [facility] spital POC GLUCOSE 2020-09-23 23:10:00 Fan, [facility] spital POC GLUCOSE 2020-09-23 17:31:00 Fan, [facility] sp[facility] POC GLUCOSE 2020-09-23 13:03:00 Ritesh [facility] spital [id number] TACROLIMUS LEVEL, 2020-09-23 [facility]:24[facility] B NATRIURETIC PEPTIDE 2020-09-23 11:24:[address] [facility] PARATHYROID HORMONE 2020-09-23 11:24:00 Ritesh [facility] BASIC METABOLIC PANEL 2020-09-23 10:00:[address] [facility] ESTIMATED GFR 2020-09-23 10:00:00 Ritesh [facility] Ho spital POC GLUCOSE 2020-09-23 03:12:00 Fan, [facility] spital DURABLE MEDICAL EQUIPMENT 2020-09-23 02:30:[facility] 2020-09-22 23:40:00 Fan, Nikky Michaud spital BASIC METABOLIC PANEL 2020-09-22 21:08:00 Fan, [facility] HC COMPLETE BLD COUNT 2020-09-22 21:08:00 Fan, [facility] W/AUTO DIFF ESTIMATED GFR 2020-09-22 21:08:00 Fan, Nikky Mcghee Ho spital POC GLUCOSE 2020-09-22 17:41:00 Fan, Nikky Mcghee Ho spital POC GLUCOSE 2020-09-22 14:09:00 Fan, Nikky Mcghee Ho spital [id number] TACROLIMUS LEVEL, 2020-09-22 11:39:00 Fan, [facility] RANDOM POC GLUCOSE 2020-09-22 03:09:00 Fan, Nikky Mcghee Ho spital POC GLUCOSE 2020-09-21 23:11:00 Fan, Nikky Yazidi Ho spital POC GLUCOSE 2020-09-21 18:37:00 Fan, Nikky Yazidi Ho spital POC GLUCOSE 2020-09-21 14:16:00 Fan, Nikky Mcghee Ho spital [id number] TACROLIMUS LEVEL, 2020-09-21 11:42:00 Fan, [facility] RANDOM POC GLUCOSE 2020-09-21 03:07:00 Fan, Nikky Yazidi Ho spital POC GLUCOSE 2020-09-20 23:47:00 Fan, Nikky Yazidi Ho spital POC GLUCOSE 2020-09-20 17:44:00 Fan, Nikky Yazidi [facility] spital POC GLUCOSE 2020-09-20 14:52:00 Fan, Nikky Yazidi Ho spital POC GLUCOSE 2020-09-20 13:27:00 Fan, Nikky Mcghee Ho spital [id number] TACROLIMUS LEVEL, 2020-09-20 11:30:00 Fan, [facility] RANDOM POC GLUCOSE 2020-09-20 03:32:00 Fan, Nikky Yazidi Ho spital POC GLUCOSE 2020-09-20 03:07:00 Fan, Nikky Y[facility] POC GLUCOSE 2020-09-19 23:19:00 Fan, Nikky Yazidi [facility] sp[facility] POC GLUCOSE 2020-09-19 17:14:00 Fan, Nikky Yazidi Ho spital POC GLUCOSE 2020-09-19 13:49:00 Fan, Nikky Yazidi Ho spital CRYPTOCOCCAL ANTIGEN 2020-09-19 11:00:00 Inder Bhat [facility] SCREEN [id number] TACROLIMUS LEVEL, 2020-09-19 11:00:00 [facility] RANDOM BASIC METABOLIC PANEL 2020-09-19 11:00:[address] [facility] ESTIMATED GFR 2020-09-19 11:00:00 Fan, Nikky Yazidi Ho spital POC GLUCOSE 2020-09-19 03:07:00 Fan, [facility] POC GLUCOSE 2020-09-18 23:33:00 Fan, Nikky Yazidi Ho spital CRYPTOCOCCAL ANTIGEN 2020-09-18 21:40:[address] [facility] SCREEN POC GLUCOSE 2020-09-18 17:51:00 Fan, Nikky Yazidi Ho spital POC GLUCOSE 2020-09-18 14:34:00 Fan, Nikky Yazidi Ho spital [id number] TACROLIMUS LEVEL, 2020-09-18 12:00:00 [facility] RANDOM BASIC METABOLIC PANEL 2020-09-18 12:00:00 [facility] HC COMPLETE BLD COUNT 2020-09-18 12:00:00 [facility] W/AUTO DIFF ESTIMATED GFR 2020-09-18 12:00:00 Fan, Nikky Yazidi Ho spital POC GLUCOSE 2020-09-18 03:13:00 Fan, Nikky Yazidi [facility] spital POC GLUCOSE 2020-09-17 23:24:00 Fan, Nikky Yazidi Ho spital ECG 12-LEAD 2020-09-17 23:02:11 Inder Bhat Ho spital POC GLUCOSE 2020-09-17 17:29:00 Fan, [facility] POC GLUCOSE 2020-09-17 13:31:00 Fan, Nikky Yazidi Ho spital [id number] TACROLIMUS LEVEL, 2020-09-17 10:51:00 Chacho Grijalva [facility] RANDOM HC COMPLETE BLD COUNT 2020-09-17 10:51:00 Fan, [facility] W/AUTO DIFF BASIC METABOLIC PANEL 2020-09-17 10:51:00 Fan, [facility] ESTIMATED GFR 2020-09-17 10:51:00 [facility], [facility] 2020-09-17 02:41:00 Fan, Nikky Mcghee spital POC GLUCOSE 2020-09-16 23:25:00 [facility], [facility] POC GLUCOSE 2020-09-16 18:48:00 Fan, [facility] POC GLUCOSE 2020-09-16 13:44:00 Fan, [facility] [id number] TACROLIMUS LEVEL, 2020-09-16 11:45:00 [facility] CBC WITH PLATELET AND 2020-09-16 11:45:00 Fan, [facility] DIFFERENTIAL BASIC METABOLIC PANEL 2020-09-16 11:45:00 Fan, [facility] ESTIMATED GFR 2020-09-16 11:45:00 Fan, [facility] MANUAL DIFFERENTIAL 2020-09-16 11:45:00 Fan, [facility] POC GLUCOSE 2020 23:44:00 Fan, [facility] Ho spital ENTERIC BACTERIAL PANEL 2020 23:24:00 Fan, [facility] ENTERIC PARASITIC PANEL 2020 23:24:00 Fan, [facility] ENTERIC VIRAL PANEL 2020 23:24:00 Fan, [facility] URINE CULTURE 2020 22:32:00 Chel Gonzalez spital POC GLUCOSE 2020 21:49:00 Fan, [facility] POC GLUCOSE 2020 17:57:00 Fan, [facility] Y[facility] spital URINALYSIS SCREEN AND 2020 17:32:00 Chel Gonzalez [facility] MICROSCOPY, WITH REFLEX TO CULTURE POC GLUCOSE 2020 16:07:00 Fan, Nikky Mcghee Ho spital POC GLUCOSE 2020 13:38:00 Fan, [facility] Y[facility]idi spital [id number] TACROLIMUS LEVEL, 2020 10:46:00 Chacho Grijalva [facility] TROUGH CBC WITH PLATELET AND 2020 10:46:00 [facility] DIFFERENTIAL MANUAL DIFFERENTIAL 2020 10:46:00 [facility] BASIC METABOLIC PANEL 2020 10:00:00 Fan, [facility] ESTIMATED GFR 2020 10:00:00 Fan, [facility] Y[facility] spital POC GLUCOSE 2020 01:28:00 Fan, [facility] POC GLUCOSE 2020-09-14 23:23:00 Fan, [facility] POC GLUCOSE 2020-09-14 18:14:00 Fan, [facility] POC GLUCOSE 2020-09-14 14:58:00 Fan, [facility] [id number] TACROLIMUS LEVEL, 2020-09-14 10:08:00 Chacho Grijalva [facility] TROUGH CBC WITH PLATELET AND 2020-09-14 10:08:00 [facility] DIFFERENTIAL MANUAL DIFFERENTIAL 2020-09-14 10:08:00 [facility] BASIC METABOLIC PANEL 2020-09-14 10:00:00 [facility], [facility] ESTIMATED GFR 2020-09-14 10:00:00 Fan, [facility] POC GLUCOSE 2020-09-14 01:23:00 Fan, [facility] POC GLUCOSE 2020-09-14 00:38:00 Fan, [facility] POC GLUCOSE 2020-09-13 18:44:00 Fan, [facility] POC GLUCOSE 2020-09-13 14:18:00 Fan, [facility] Ho spital [id number] TACROLIMUS LEVEL, 2020-09-13 10:40:00 Chacho Grijalva [facility] TROUGH HC COMPLETE BLD COUNT 2020-09-13 10:40:00 Fan, [facility] W/AUTO DIFF BASIC METABOLIC PANEL 2020-09-13 10:40:00 Fan, [facility] ESTIMATED GFR 2020-09-13 10:40:00 Fan, [facility] Ho spital POC GLUCOSE 2020-09-13 02:46:00 Fan, [facility] POC GLUCOSE 2020-09-12 23:41:00 Fan, [facility] spital BASIC METABOLIC PANEL 2020-09-12 19:00:00 Fan, [facility] HC COMPLETE BLD COUNT 2020-09-12 19:00:00 Fan, [facility] W/AUTO DIFF ESTIMATED GFR 2020-09-12 19:00:00 Fan, [facility] Ho sp[facility] POC GLUCOSE 2020-09-12 17:47:00 Fan, [facility] sp[facility] POC GLUCOSE 2020-09-12 13:46:00 Fan, [facility] Ho spital [id number] TACROLIMUS LEVEL, 2020-09-12 10:51:00 [facility] TROUGH POC GLUCOSE 2020-09-12 01:29:00 Fan, [facility] Y[facility]idi spital POC GLUCOSE 2020-09-12 00:03:00 Fan, [facility] sp[facility] POC GLUCOSE 2020-09-11 18:51:00 Fan, [facility] POC GLUCOSE 2020-09-11 14:09:00 Fan, [facility] Ho spital FK506 TACROLIMUS LEVEL, 2020-09-11 10:22:00 [facility] TROUGH CBC WITH PLATELET AND 2020-09-11 10:22:00 Fan, [facility] DIFFERENTIAL BASIC METABOLIC PANEL 2020-09-11 10:22:00 Fan, [facility] ESTIMATED GFR 2020-09-11 10:22:00 Fan, [facility] Y[facility] spital MANUAL DIFFERENTIAL 2020-09-11 10:22:00 Fan, [facility] POC GLUCOSE 2020-09-11 02:33:00 Fan, [facility] Ho sp[facility] POC GLUCOSE 2020-09-10 22:54:00 Fan, [facility] POC GLUCOSE 2020-09-10 17:59:00 Fan, [facility] POC GLUCOSE 2020-09-10 14:09:00 Fan, [facility] Y[facility] Ho spital FK506 TACROLIMUS LEVEL, 2020-09-10 11:08:00 [facility] TROUGH [place] CBC WITH PLATELET AND 2020-09-10 11:08:00 Fan, [facility] DIFFERENTIAL BASIC METABOLIC PANEL 2020-09-10 11:08:00 [facility], [facility] ESTIMATED GFR 2020-09-10 11:08:00 [facility], [facility] MANUAL DIFFERENTIAL 2020-09-10 11:08:00 Fan, [facility] POC GLUCOSE 2020-09-10 02:29:00 Fan, [facility] Ho spital POC GLUCOSE 2020-09-09 23:28:00 Fan, [facility] spital POC GLUCOSE 2020-09-09 18:13:00 Fan, [facility] POC GLUCOSE 2020-09-09 14:13:00 Fan, [facility] spital [id number] TACROLIMUS LEVEL, 2020-09-09 [facility]:15:[facility] [place] BASIC METABOLIC PANEL 2020-09-09 11:15:00 Fan, [facility] HC COMPLETE BLD COUNT 2020-09-09 11:15:00 Fan, [facility] W/AUTO DIFF ESTIMATED GFR 2020-09-09 11:15:00 Fan, [facility] POC GLUCOSE 2020-09-09 02:57:00 Fan, [facility] sp[facility] POC GLUCOSE 2020-09-08 21:53:00 Fan, [facility] spital COVID-19 QUALITATIVE 2020-09-08 18:22:00 [facility] RT-PCR POC GLUCOSE 2020-09-08 17:16:00 Fan, [facility] Y[facility] Ho spital [id number] TACROLIMUS LEVEL, 2020-09-08 14:43:00 [facility] TROUGH [place] BASIC METABOLIC PANEL 2020-09-08 14:43:00 Fan, [facility] HC COMPLETE BLD COUNT 2020-09-08 14:43:00 [facility] W/AUTO DIFF OSMOLALITY, SERUM 2020-09-08 14:43:00 [facility] [place] ESTIMATED GFR 2020-09-08 14:43:00 [facility] 2020-09-08 14:05:00 Fan, Nikky Mcghee Ho spital POC GLUCOSE 2020-09-07 22:14:00 Fan, Nikky Mcghee [facility] spital POC GLUCOSE 2020-09-07 17:03:00 Fan, Nikky Yazidi Ho spital POC GLUCOSE 2020-09-07 13:18:00 Fan, Nikky Michaud spital [id number] TACROLIMUS LEVEL, 2020-09-07 10:30:00 [facility] TROUGH [place] BASIC METABOLIC PANEL 2020-09-07 10:30:00 Fan, [facility] HC COMPLETE BLD COUNT 2020-09-07 10:30:00 Fan, [facility] W/AUTO DIFF ESTIMATED GFR 2020-09-07 10:30:00 Fan, Nikky Mcghee [facility] sp[facility] POC GLUCOSE 2020-09-07 02:57:00 Fan, Nikky Mcghee Ho spital US RENAL TRANSPLANT 2020-09-07 02:01:00 Chacho Grijalva [facility] DOPPLER POC GLUCOSE 2020-09-06 22:59:00 Fan, Nikky Mcghee [facility] spital POC GLUCOSE 2020-09-06 17:16:00 Fan, Nikky Mcghee [facility] sp[facility] POC GLUCOSE 2020-09-06 13:35:00 Fan, Nikky Michaud spital [id number] TACROLIMUS LEVEL, 2020-09-06 12:25:00 [facility] TROUGH [place] HC COMPLETE BLD COUNT 2020-09-06 12:25:00 Fan, [facility] W/AUTO DIFF BASIC METABOLIC PANEL 2020-09-06 10:00:00 Fan, [facility] ESTIMATED GFR 2020-09-06 10:00:00 Fan, Nikky Mcghee [facility] POC GLUCOSE 2020-09-05 23:25:00 Fan, Nikky Michaud spital MRI BRAIN WO CONTRAST 2020-09-05 18:40:00 Fan, [facility] POC GLUCOSE 2020-09-05 17:57:00 Fan, Nikky Mcghee Ho spital CT CHEST WO CONTRAST 2020-09-05 16:38:[address] [facility] POC GLUCOSE 2020-09-05 13:59:00 [facility], [facility] CRYPTOCOCCAL ANTIGEN 2020-09-05 11:10:[address] [facility] SCREEN BASIC METABOLIC PANEL 2020-09-05 11:10:[address] [facility] [id number] TACROLIMUS LEVEL, 2020-09-05 11:10:00 [facility] [place] ESTIMATED GFR 2020-09-05 11:10:00 Chacho Grijalva [facility] POC GLUCOSE 2020-09-05 02:10:00 Fan, [facility] Ho spital POC GLUCOSE 2020-09-04 22:39:00 Fan, [facility] spital POC GLUCOSE 2020-09-04 20:07:00 Fan, [facility] Ho spital POC GLUCOSE 2020-09-04 18:58:00 Fan, [facility] Ho spital POC GLUCOSE 2020-09-04 14:09:00 Fan, [facility] spital CRYPTOCOCCAL ANTIGEN 2020-09-04 12:00:00 Adrian Cornejo [facility] SCREEN BASIC METABOLIC PANEL 2020-09-04 12:00:[address] [facility] VANCOMYCIN LEVEL, RANDOM 2020-09-04 12:00:00 Ritesh [facility] HC COMPLETE BLD COUNT 2020-09-04 12:00:[address] [facility] W/AUTO DIFF [id number] TACROLIMUS LEVEL, 2020-09-04 12:00:00 [facility] [place] HIV AG/AB COMBINATION 2020-09-04 12:00:00 Inder Bhat [facility] CD 4 SUBSET 2020-09-04 12:00:00 Inder Bhat spital ESTIMATED GFR 2020-09-04 12:00:00 Chacho Grijalva [facility] POC GLUCOSE 2020-09-04 01:54:00 Fan, [facility] Ho spital POC GLUCOSE 2020-09-03 23:25:00 Fan, Jin[facility] spital POC GLUCOSE 2020-09-03 17:53:00 Fan, Nikky Mcghee [facility] sp[facility] XR CHEST 1 VW PORTABLE 2020-09-03 14:50:00 Troy Harley Juan [facility] POC GLUCOSE 2020-09-03 14:05:00 Fan, Nikky Mcghee [facility] sp[facility] HC COMPLETE BLD COUNT 2020-09-03 11:47:00 Fan, [facility] W/AUTO DIFF BASIC METABOLIC PANEL 2020-09-03 11:47:00 Fan, [facility] ESTIMATED GFR 2020-09-03 11:47:00 Fan, [facility] Yazidi spital AEROBIC CULTURE 2020-09-03 05:54:00 Rodrigue Wynn spital Rishi FUNGUS SMEAR 2020-09-03 05:54:00 Fan, [facility] ANAEROBIC CULTURE 2020-09-03 05:54:00 Fan, [facility] FUNGUS CULTURE 2020-09-03 05:54:00 Fan, [facility]idi spital LEGIONELLA URINARY ANTIGEN 2020-09-03 04:45:00 Inder Bhat [facility] STREPTOCOCCUS PNEUMONIAE 2020-09-03 04:45:00 Inder Bhat [facility] URINARY ANTIGEN POC GLUCOSE 2020-09-03 03:06:00 Fan, Nikky [facility]ital POC GLUCOSE 2020-09-02 23:23:00 Fan, [facility] Yazidi spital VARICELLA ZOSTER BY PCR 2020-09-02 22:47:00 Inder Bhat [facility] IR LUMBAR PUNCTURE 2020-09-02 22:17:00 Inder Bhat [facility] CSF CULTURE 2020-09-02 22:15:00 Inder Bhat spital FUNGUS CULTURE 2020-09-02 22:15:00 Inder Bhat spital CRYPTOCOCCAL ANTIGEN 2020-09-02 22:15:00 [facility] 2020-09-02 22:15:00 Inder Bhat spital CYTOMEGALOVIRUS BY PCR 2020-09-02 22:15:00 Inder Bhat [facility] CSF CELL COUNT WITH 2020-09-02 22:15:00 Bhat, [facility] DIFFERENTIAL PROTEIN, CSF 2020-09-02 22:15:00 Inder Bhat spital GLUCOSE LEVEL, CSF 2020-09-02 22:15:00 [facility] 2020-09-02 22:15:00 Inder Bhat spital VARICELLA ZOSTER BY PCR 2020-09-02 22:15:00 [facility] AFB CULTURE 2020-09-02 21:15:00 Inder Bhat spital POC GLUCOSE 2020-09-02 21:13:00 [facility], [facility] 2020-09-02 20:11:07 Fan, [facility] POC GLUCOSE 2020-09-02 18:17:00 Fan, [facility] POC GLUCOSE 2020-09-02 13:39:00 [facility]OL[facility]EL 2020-09-02 09:58:00 Fan, [facility] ESTIMATED GFR 2020-09-02 09:58:00 Fan, [facility] CBC WITH PLATELET AND 2020-09-02 09:00:00 Fan, [facility] DIFFERENTIAL POC GLUCOSE 2020-09-02 02:38:00 Fan, [facility] POC GLUCOSE 2020-09-01 23:06:00 Fan, [facility] spital POC GLUCOSE 2020-09-01 18:27:00 Fan, [facility] POC GLUCOSE 2020-09-01 14:01:00 Fan, [facility] spital [id number] TOTAL 2020-09-01 09:05:00 Issa Kenyon [facility] Vidya Denny [id number] TACROLIMUS LEVEL, 2020-09-01 09:05:00 Ritesh, [facility] RANDOM HC COMPLETE BLD COUNT 2020-09-01 09:05:00 Fan, [facility] W/AUTO DIFF COMPREHENSIVE METABOLIC 2020-09-01 09:05:00 [facility] PANEL ESTIMATED GFR 2020-09-01 09:05:00 Bob Pena spital Vidyajerri Denny Plan of Care Planned Activity Planned Date Details Comments Source Future Scheduled 2022-12-14 SHINGLES VACCINES (1 Met [facility] Test 09:00:18 of 2) [code = SHINGLES VACCINES (1 of 2)] Future Scheduled 2022-12-14 Screening for [facility] Test 09:00:18 malignant neoplasm of cervix (procedure) [code = 307059157] Future Scheduled 2022-12-[address] [facility] Test 09:00:18 [code = COLONOSCOPY SCREENING] Future Scheduled 2022-12-14 65+ PNEUMOCOCCAL [facility] Test 09:00:18 VACCINE (2 - PPSV23 if available, else PCV20) [code = 65+ PNEUMOCOCCAL VACCINE (2 - PPSV23 if available, else PCV20)] Future Scheduled 2022-12-14 BREAST CANCER [facility] Test 09:00:18 SCREENING [code = BREAST CANCER SCREENING] Future Scheduled 2022-12-14 COVID-19 VACCINE (3 - [facility] Test 09:00:18 Moderna risk series) [code = COVID-19 VACCINE (3 - Moderna risk series)] Future Scheduled 2022-12-14 DIABETES: RETINAL EYE [facility] Test 09:00:18 EXAM [code = DIABETES: RETINAL EYE EXAM] Future Scheduled 2022-12-14 DIABETIC FOOT EXAM [facility] Test 09:00:18 [code = DIABETIC FOOT EXAM] Future Scheduled 2022-12-14 INFLUENZA VACCINE [facility] Test 09:00:18 [code = INFLUENZA VACCINE] Future Scheduled 2022-09-28 Hepatitis C screening [facility] Test 09:37:02 (procedure) [code = 225116068] Future Scheduled 2022-09-28 SHINGLES VACCINES (1 Met [facility] Test 09:37:02 of 2) [code = SHINGLES VACCINES (1 of 2)] Future Scheduled 2022-09-28 Screening for [facility] Test 09:37:02 malignant neoplasm of cervix (procedure) [code = 616365071] Future Scheduled 2022-09-[address] [facility] Test 09:37:02 [code = COLONOSCOPY SCREENING] Future Scheduled 2022-09-28 65+ PNEUMOCOCCAL [facility] Test 09:37:02 VACCINE (2 - PPSV23 if available, else PCV20) [code = 65+ PNEUMOCOCCAL VACCINE (2 - PPSV23 if available, else PCV20)] Future Scheduled 2022-09-28 BREAST CANCER [facility] Test 09:37:02 SCREENING [code = BREAST CANCER SCREENING] Future Scheduled 2022-09-28 COVID-19 VACCINE (3 - [facility] Test 09:37:02 Moderna risk series) [code = COVID-19 VACCINE (3 - Moderna risk series)] Future Scheduled 2022-09-28 DIABETES: RETINAL EYE [facility] Test 09:37:02 EXAM [code = DIABETES: RETINAL EYE EXAM] Future Scheduled 2022-09-28 INFLUENZA VACCINE [facility] Test 09:37:02 [code = INFLUENZA VACCINE] Future Scheduled 2022-09-28 DIABETIC FOOT EXAM [facility] Test 09:37:02 [code = DIABETIC FOOT EXAM] Future Scheduled 2022-05-15 HEPATITIS B VACCINES Met [facility] Test 18:47:46 (1 of 3 - 3-dose series) [code = HEPATITIS B VACCINES (1 of 3 - 3-dose series)] Future Scheduled 2022-05-15 Hepatitis C screening [facility] Test 18:47:46 (procedure) [code = 015707343] Future Scheduled 2022-05-15 SHINGLES VACCINES (1 Met [facility] Test 18:47:46 of 2) [code = SHINGLES VACCINES (1 of 2)] Future Scheduled 2022-05-15 Screening for [facility] Test 18:47:46 malignant neoplasm of cervix (procedure) [code = 224644508] Future Scheduled 2022-05-[address] [facility] Test 18:47:46 [code = COLONOSCOPY SCREENING] Future Scheduled 2022-05-15 Pneumococcal Vaccine: [facility] Test 18:47:46 Pediatrics (0 to 5 Years) and At-Risk Patients (6 to 64 Years) (2 - PPSV23 if available, else PCV20) [code = Pneumococcal Vaccine: Pediatrics (0 to 5 Years) and At-Risk Patients (6 to 64 Years) (2 - PPSV23 if available, else PCV20)] Future Scheduled 2022-05-15 BREAST CANCER [facility] Test 18:47:46 SCREENING [code = BREAST CANCER SCREENING] Future Scheduled 2022-05-15 COVID-19 VACCINE (3 - [facility] Test 18:47:46 Moderna risk series) [code = COVID-19 VACCINE (3 - Moderna risk series)] Future Scheduled 2022-05-15 DIABETES: RETINAL EYE [facility] Test 18:47:46 EXAM [code = DIABETES: RETINAL EYE EXAM] Future Scheduled 2022-05-15 INFLUENZA VACCINE [facility] Test 18:47:46 [code = INFLUENZA VACCINE] Future Scheduled 2022-05-15 DIABETIC FOOT EXAM [facility] Test 18:47:46 [code = DIABETIC FOOT EXAM] Future Scheduled 2022-03-31 HEPATITIS B VACCINES Met [facility] Test 11:33:47 (1 of 3 - 3-dose series) [code = HEPATITIS B VACCINES (1 of 3 - 3-dose series)] Future Scheduled 2022-03-31 Hepatitis C screening [facility] Test 11:33:47 (procedure) [code = [id number]] Future Scheduled 2022-03-31 SHINGLES VACCINES (1 Met [facility] Test 11:33:47 of 2) [code = SHINGLES VACCINES (1 of 2)] Future Scheduled 2022-03-31 Screening for [facility] Test 11:33:47 malignant neoplasm of cervix (procedure) [code = 235309162] Future Scheduled 2022-03-[address] [facility] Test 11:33:47 [code = COLONOSCOPY SCREENING] Future Scheduled 2022-03-31 Pneumococcal Vaccine: [facility] Test 11:33:47 Pediatrics (0 to 5 Years) and At-Risk Patients (6 to 64 Years) (2 - PPSV23 or PCV20) [code = Pneumococcal Vaccine: Pediatrics (0 to 5 Years) and At-Risk Patients (6 to 64 Years) (2 - PPSV23 or PCV20)] Future Scheduled 2022-03-31 BREAST CANCER [facility] Test 11:33:47 SCREENING [code = BREAST CANCER SCREENING] Future Scheduled 2022-03-31 COVID-19 VACCINE (3 - [facility] Test 11:33:47 Moderna risk series) [code = COVID-19 VACCINE (3 - Moderna risk series)] Future Scheduled 2022-03-31 DIABETES: RETINAL EYE [facility] Test 11:33:47 EXAM [code = DIABETES: RETINAL EYE EXAM] Future Scheduled 2022-03-31 INFLUENZA VACCINE [facility] Test 11:33:47 [code = INFLUENZA VACCINE] Future Scheduled 2022-03-31 [facility] Test 11:33:47 [code = DIABETIC FOOT EXAM] Future Scheduled 2022-03-31 HEPATITIS B VACCINES Met [facility] Test 11:33:47 (1 of 3 - 3-dose series) [code = HEPATITIS B VACCINES (1 of 3 - 3-dose series)] Future Scheduled 2022-03-31 Hepatitis C screening [facility] Test 11:33:47 (procedure) [code = 094932930] Future Scheduled 2022-03-31 SHINGLES VACCINES (1 Met [facility] Test 11:33:47 of 2) [code = SHINGLES VACCINES (1 of 2)] Future Scheduled 2022-03-31 Screening for [facility] Test 11:33:47 malignant neoplasm of cervix (procedure) [code = 434998673] Future Scheduled 2022-03-[address] [facility] Test 11:33:47 [code = COLONOSCOPY SCREENING] Future Scheduled 2022-03-31 Pneumococcal Vaccine: [facility] Test 11:33:47 Pediatrics (0 to 5 Years) and At-Risk Patients (6 to 64 Years) (2 - PPSV23 or PCV20) [code = Pneumococcal Vaccine: Pediatrics (0 to 5 Years) and At-Risk Patients (6 to 64 Years) (2 - PPSV23 or PCV20)] Future Scheduled 2022-03-31 BREAST CANCER [facility] Test 11:33:47 SCREENING [code = BREAST CANCER SCREENING] Future Scheduled 2022-03-31 COVID-19 VACCINE (3 - [facility] Test 11:33:47 Moderna risk series) [code = COVID-19 VACCINE (3 - Moderna risk series)] Future Scheduled 2022-03-31 DIABETES: RETINAL EYE [facility] Test 11:33:47 EXAM [code = DIABETES: RETINAL EYE EXAM] Future Scheduled 2022-03-31 INFLUENZA VACCINE [facility] Test 11:33:47 [code = INFLUENZA VACCINE] Future Scheduled 2022-03-31 DIABETIC FOOT EXAM [facility] Test 11:33:47 [code = DIABETIC FOOT EXAM] Future Scheduled 2021-08-31 Hepatitis C screening [facility] Test 11:36:52 (procedure) [code = 960521400] Future Scheduled 2021-08-31 [facility] Test 11:36:52 malignant neoplasm of cervix (procedure) [code = 229045377] Future Scheduled 2021-08-[address] [facility] Test 11:36:52 [code = COLONOSCOPY SCREENING] Future Scheduled 2021-08-31 SHINGLES VACCINES (#1) [facility] Test 11:36:52 [code = SHINGLES VACCINES (#1)] Future Scheduled 2021-08-31 [facility]52 SCREENING [code = BREAST CANCER SCREENING] Future Scheduled 2021-08-31 DIABETIC FOOT EXAM [facility] Test 11:36:52 [code = DIABETIC FOOT EXAM] Future Scheduled 2021-08-31 INFLUENZA VACCINE [facility] Test 11:36:52 [code = INFLUENZA VACCINE] Future Scheduled 2021-08-31 COVID-19 VACCINE (3 - [facility] Test 11:36:52 Moderna risk 4-dose series) [code = COVID-19 VACCINE (3 - Moderna risk 4-dose series)] Future Scheduled 2021-08-31 DIABETES: RETINAL EYE [facility] Test 11:36:52 EXAM [code = DIABETES: RETINAL EYE EXAM] Encounters Start End Encounter Admission Attending Care Care Encounter Source Date/Time Date/Time Type Type Clinicians Facility Department ID 2022-11-29 Outpatient Lexis MUNSON [facility] [id number] 2 Common 11:08:00 [id number] [facility] 2022-10-12 Outpatient Lexis MUNSON [facility] [id number] 2 Common 10:03:00 [id number] [facility] 2022-09-29 Outpatient ARPIT Na [facility] [id number] 2 Common 14:07:01 [id number] [facility] 2021-12-25 Inpatient EL Yolanda, [facility] DAYS [id number] [facility] 08:00:00 Az [facility] 2021-10-01 Outpatient Arpit Na [facility] [id number] 2 Common 07:26:00 [facility] 2021-09-28 Outpatient Munson, Na STLMLC STL[facility]C [id number] 2 Common 08:20:00 [id number] [facility] 2021-08-26 Outpatient Musnon, Na STLMLC STLMLC [id number] 2 Common 12:43:39 [id number] [facility] 2021-08-26 Outpatient Munson, Na STLMLC STLMLC [id number] 2 Common 12:21:24 [id number] [facility] 2021-08-26 Outpatient Munson, Na STLMLC STLMLC [id number] 2 Common 12:20:42 [id number] [facility] 2021-08-26 Outpatient Munson, Na STLMLC STLMLC [id number] 2 Common 12:17:55 [id number] [facility] 2021-08-26 Outpatient Munson, Na STLMLC STLMLC [id number] 2 Common 12:17:20 [id number] [facility] 2021-08-26 Outpatient Munson, Na STLMLC STLMLC [id number] 2 Common 11:57:36 [id number] [facility] 2021-08-26 Outpatient Munson, Na STLMLC STLMLC [id number] 2 Common 11:56:47 [id number] [facility] 2021-08-26 Outpatient Munson, Na STLMLC STLMLC [id number] 2 Common 11:31:59 [id number] [facility] 2021-08-26 Outpatient Munson, Na STLMLC STLMLC [id number] 2 Common 11:31:40 [id number] [facility] 2021-08-26 Outpatient Munson, Na STLMLC STLMLC [id number] 2 Common 11:27:44 [id number] [facility] 2021-08-26 Outpatient Munson, Na STLMLC STLMLC [id number] 2 Common 11:27:14 [id number] [facility] 2021-08-26 Outpatient Munson, Na STLMLC STLMLC [id number] 2 Common 11:22:57 [id number] [facility] 2021-08-26 Outpatient Lexis Munson STLMLC STLMLC [id number] 2 Common 11:13:26 [id number] [facility] 2022-12-02 2022-12-02 Telephone Mauerika, 1.2.840.1 [id number] Methodi 00:00:00 00:00:[address] 3.430.2.7 Hospit a .3.953860 l .8 2022-11-25 2022-11-30 Office Adrogue, 1.2.840.1 [id number] Methodi 09:00:00 10:40:00 Visit Chacho 71752.1.[address] Nehemias 3.430.2.7 Hospit a .3.633626 l .8 2022-11-25 2022-11-30 Office Puma Fishman 1.2.840.1 [id number] Methodi 08:30:00 10:19:[address] 3.430.2.7 Hospit a .3.964172 l .8 2022-11-25 2022-11-25 Hospital Stark, 1.2.840.1 [id number] Methodi 13:00:00 23:59:00 Encounter Maya 07475.1.[address] Sonu 3.430.2.7 Hospit a .3.604793 l .8 2022-11-25 2022-11-25 Outpatient ADROGUE, [facility] [id number] [place] 00:00:00 00:00:00 CHACHO 150 Method i 2022-11-25 2022-11-25 Outpatient STARK, [facility] [id number] [place] 00:00:00 00:00:00 MAYA 146 Method i 2022-11-25 2022-11-25 Outpatient [facility] [id number] [place] 00:00:00 00:00:00 148 Method i 2022-11-25 2022-11-25 Outpatient STARK, [facility] [id number] [place] 00:00:00 00:00:00 MAYA 401 Method i 2022-11-25 2022-11-25 Outpatient LINCOLN, [facility] [id number] [place] 00:00:00 00:00:00 MAYA Pena [facility] 2022-11-25 2022-11-25 Documentat Ibrahima, 1.2.840.1 [id number] Methodi 00:00:00 00:00:00 ion Nabila 53655.1.[address] 3.430.2.7 Hospit a .3.049913 l .8 2022-11-25 2022-11-25 Orders Urbano, 1.2.840.1 [id number] 03071 Methodi 00:00:00 00:00:00 Only Alex [address]1938.1.[address] 3.430.2.7 Hospit a .3.564022 l .8 2022-11-25 2022-11-25 Travel 1.2.840.1 1.2.159.921 2022 197721 Methodi 00:00:00 00:00:[address] 3.430.2.7 0.2.7.3.698 Ho spita .3.473550 084.8 l .8 2022-11-17 2022-11-17 Refill Jair, 1.2.840.1 [id number] 8243 Methodi 00:00:00 00:00:[address] 3.430.2.7 Hospit a .3.512860 l .8 2022-11-02 2022-11-02 Documentat Jena, 1.2.840.1 [id number] Methodi 00:00:00 00:00:00 ion Sanam 22945.1.[address] 3.430.2.7 Hospit a .3.568219 l .8 2022-10-15 2022-10-15 Orders Minerva, 1.2.840.1 [id number] Methodi 00:00:00 00:00:00 Only Abimbola 87493.1.[address] 3.430.2.7 Hospit a .3.305341 l .8 2022-08-13 2022-08-13 Telephone Famanias, 1.2.840.1 [id number] Methodi 00:00:00 00:00:[address] 3.430.2.7 Hospit a .3.934751 l .8 2022-08-13 2022-08-13 Telephone Famanias, 1.2.840.1 [id number] Methodi 00:00:00 00:00:[address] 3.430.2.7 Hospit a .3.586097 l .8 2022-05-20 2022-05-20 (MO) Nurse STLMLC STLMLC [id number] Common 00:00:00 00:00:00 Visit [facility] 2022-04-23 2022-04-30 Inpatient EM [facility].01 G001 [id number] [facility] 14:11:00 16:35:00 an, 78 [facility] 2022-03-25 2022-03-25 OFFICE STLMLC STLMLC [id number] Co mmon 00:00:00 00:00:00 VISIT EST Spir it PT LEVEL 3 [facility] 2022-03-10 2022-03-10 OFFICE STLMLC STLMLC [id number] Co mmon 00:00:00 00:00:00 VISIT Spirit [facility] PT - CHI LEVEL 2 [facility] 2022-03-08 2022-03-08 Telephone Ray, 1.2.840.1 [id number] Methodi 00:00:00 00:00:[address] 3.430.2.7 Hospit a .3.279002 l .8 2022-03-08 2022-03-08 Telephone Ray, 1.2.840.1 [id number] 2099 [id number] Methodi 00:00:00 00:00:[address] 3.430.2.7 Hospit a .3.536426 l .8 2022-03-03 2022-03-03 Documentat Readeaux, 1.2.840.1 [id number] 2 [id number] Methodi 00:00:00 00:00:[address]1.[address] 3.430.2.7 Hospit a .3.371139 l .8 2022-03-03 2022-03-03 Orders Readeaux, 1.2.840.1 [id number] 2099 [id number] Methodi 00:00:00 00:00:00 Only Billie 83188.1.[address] 3.430.2.7 Hospit a .3.883626 l .8 2022-03-03 2022-03-03 Documentat Readeaux, 1.2.840.1 [id number] 2 [id number] Methodi 00:00:00 00:00:[address].1.[address] 3.430.2.7 Hospit a .3.811788 l .8 2022-03-03 2022-03-03 Orders Readeaux, 1.2.840.1 [id number] 2099 [id number] Methodi 00:00:00 00:00:00 Only Billie 72944.1.[address] 3.430.2.7 Hospit a .3.977768 l .8 2022-02-10 2022-02-10 OL DIG E/M [facility] [id number] Common 00:00:00 00:00:00 [facility] 11-20 Spir it MIN - [facility] 2022-01-27 2022-01-27 OFFICE [facility] [id number] Co mmon 00:00:00 00:00:00 VISIT EST Spir it PT LEVEL 3 - [facility] 2022-01-20 2022-01-20 Outpatient EL Yolanda, HCACL HCACL [id number] [facility] 05:38:00 05:38:00 Az [id number] [facility] 2022-01-20 2022-01-20 Outpatient EL Yolanda, HCACL DAYS [id number] [facility] 05:38:00 05:38:00 Az 71 [facility] 2022-01-13 2022-01-13 Office Bhat, 1.2.840.1 [id number] Methodi 14:00:00 14:38:06 Visit Inder Roach 76199.1.[address] 3.430.2.7 Hospit a .3.515177 l .8 2022-01-13 2022-01-13 Office Home, 1.2.840.1 [id number] 5227 Methodi 14:00:00 14:38:06 Visit Inder Roach 25205.1.[address] 3.430.2.7 Hospit a .3.907678 l .8 2022-01-13 2022-01-13 Travel 1.2.840.1 1.2.050.705 9037 [id number] Methodi 00:00:00 00:00:[address] 3.430.2.7 0.2.7.3.698 Ho spita .3.532928 084.8 l .8 2022-01-13 2022-01-13 Travel 1.2.840.1 1.2.860.998 7675 765103 Methodi 00:00:00 00:00:[address] 3.430.2.7 0.2.7.3.698 Ho spita .3.819049 084.8 l .8 2022-01-01 2022-01-01 Documentat Readeaux, 1.2.840.1 [id number] 2 [id number] Methodi 00:00:00 00:00:00 ion Billie 10861.1.[address] 3.430.2.7 Hospit a .3.447588 l .8 2022-01-01 2022-01-01 Orders Readeaux, 1.2.840.1 [id number] 2099 [id number] Methodi 00:00:00 00:00:00 Only Billie 67647.1.[address] 3.430.2.7 Hospit a .3.011774 l .8 2022-01-01 2022-01-01 Documentat Readkarl, 1.2.840.1 [id number] 2 [id number] Methodi 00:00:00 00:00:00 ion Billie 72486.1.[address] 3.430.2.7 Hospit a .3.059119 l .8 2022-01-01 2022-01-01 Orders Readeaux, 1.2.840.1 [id number] 2100 [id number] Methodi 00:00:00 00:00:00 Only Billie 96633.1.[address] 3.430.2.7 Hospit a .3.336248 l .8 2021-12-31 2021-12-31 Refill Home, 1.2.840.1 [id number] 3867 Methodi 00:00:00 00:00:00 Shivan M 41359.1.[address] 3.430.2.7 Hospit a .3.893011 l .8 2021-12-31 2021-12-31 Refill Home 1.2.840.1 [id number] 1060 Methodi 00:00:00 00:00:00 Shivan M [address]052.1.[address] 3.430.2.7 Hospit a .3.954996 l .8 2021-12-24 2021-12-24 (TEL) STLC STLC [id number] Co mmon 00:00:00 00:00:00 Spirit - [facility] 2021-12-24 2021-12-24 (TEL) STLC STLC [id number] Co mmon 00:00:00 00:00:00 Spirit - [facility] 2021-12-24 2021-12-24 OFFICE [facility] STLC [id number] Co mmon 00:00:00 00:00:00 VISIT [facility] PT - CHI LEVEL 1 [facility] 2021-12-17 2021-12-17 Oncology Green, 1.2.840.1 [id number] 44151 Methodi 00:00:00 00:00:00 [facility] Thuy 58760.1.[address] ip 3.430.2.7 Hospit a .3.980082 l .8 2021-12-17 2021-12-17 Oncology Mathews, 1.2.840.1 [id number] 03210 Methodi 00:00:00 00:00:00 [facility] Thuy 19560.1.[address] ip 3.430.2.7 Hospit a .3.086494 l .8 2021-12-10 2021-12-10 Outpatient EL Yolanda, HCACL HCACL [id number] [facility] 05:32:00 05:32:00 Az [id number] [facility] 2021-12-10 2021-12-10 Outpatient EL Yolanda, HCACL DAYS [id number] [facility] 05:32:00 05:32:00 Az 32 [facility] 2021-11-16 2021-11-24 [facility] Laina Rucker 1.2.840.1 10 [id number] Methodi 19:43:00 19:03:00 Encounter Iron Barton 68331.1.[address] 3.430.2.7 Hospit a .3.913097 l .8 2021-11-16 2021-11-16 Travel 1.2.840.1 1.2.180.897 2662 [id number] Methodi 00:00:00 00:00:[address] 3.430.2.7 0.2.7.3.698 spita .3.094351 084.8 l .8 2021-10-29 2021-10-29 Telephone [facility], 1.2.840.1 [id number] 2100 [id number] Methodi 00:00:00 00:00:[address] Eng 3.430.2.7 Hospit a .3.904961 l .8 2021-10-09 2021-10-27 Hospital Raghu Sheehan 1.2.840.1 104 [id number] Methodi 10:33:00 20:19:00 Encounter Iron Barton 92266.1.[address] 3.430.2.7 Hospit a .3.532036 l .8 2021-10-13 2021-10-13 Orders Nieves, 1.2.840.1 [id number] 7710 Methodi 00:00:00 00:00:00 Only Uzma 57849.1.[address] 3.430.2.7 Hospit a .3.326103 l .8 2021-10-12 2021-10-12 Anesthesia Jhon Wesley 1.2.840.1 [id number] 2 [id number] Methodi 18:42:00 20:34:[address] 3.430.2.7 Hospit a .3.523857 l .8 2021-10-12 2021-10-12 Surgery Yolanda, 1.2.840.1 [id number] 9681 Methodi 18:00:00 19:20:[address] [place] [address] Manolo 3.430.2.7 Hospit a .3.853953 l .8 2021-10-09 2021-10-09 Travel 1.2.840.1 1.2.629.489 7630 107830 Methodi 00:00:00 00:00:[address] 3.430.2.7 0.2.7.3.698 Ho spita .3.714023 084.8 l .8 2021-09-30 2021-09-30 (ESTPT) STLMLC STLMLC [id number] Co mmon 00:00:00 00:00:00 Reji driver Patient - [facility] 2021-09-22 2021-09-22 Orders Nieves, 1.2.840.1 [id number] 4731 Methodi 00:00:00 00:00:00 [address] Uzma 04228.1.[address] 3.430.2.7 Hospit a .3.010111 l .8 2021-09-10 2021-09-10 OFFICE STLMLC STLMLC [id number] Co mmon 00:00:00 00:00:00 VISIT EST Spir it PT LEVEL 3 - [facility] 2021-08-25 2021-08-29 [facility] Kayce Parks 1.2.840.1 [id number] 2 [id number] Methodi 19:10:00 12:50:00 Encounter Juan Miguel Angulo 70646.1.[address] Catia Navarreteer 3.430.2.7 [facility] .3.859980 l .8 2021-08-28 2021-08-28 Anesthesia Traylor, 1.2.840.1 [id number] 462 [id number] Methodi 23:59:59 23:59:59 Event Rishi RoachTorey 55063.1.[address] 3.430.2.7 Hospit a .3.825618 l .8 2021-08-28 2021-08-28 Anesthesia Traylor, 1.2.840.1 [id number] 580 [id number] Methodi 23:59:59 23:59:59 Event Rishi RoachTorey 74747.1.[address] 3.430.2.7 Hospit a .3.825513 l .8 2021-08-28 2021-08-28 Orders Nieves, 1.2.840.1 [id number] 7508 Methodi 00:00:00 00:00:00 Only Uzma 18230.1.[address] 3.430.2.7 Hospit a .3.468414 l .8 2021-08-25 2021-08-25 Travel 1.2.840.1 1.2.327.351 9603 014380 Methodi 00:00:00 00:00:[address] 3.430.2.7 0.2.7.3.698 Ho spita .3.929351 084.8 l .8 2021-08-20 2021-08-20 OFFICE STLMLC STLMLC [id number] Co mmon 00:00:00 00:00:00 VISIT Sudeep ESTAB PT - [facility] LEVEL [facility] 2021-07-23 2021-07-23 OFFICE STLMLC STLMLC [id number] Co mmon 00:00:00 00:00:00 VISIT EST Spir it PT LEVEL 3 - [facility] 2021-07-07 2021-07-07 Telephone José Migueltif, 1.2.840.1 [id number] Methodi 14:30:00 14:45:00 Consult Souleymane Ocampo 27272.1.[address] 3.430.2.7 Hospit a .3.717906 l .8 2021-07-06 2021-07-06 Outpatient RENETTA, [facility] 492 [id number] [place] 00:00:00 00:00:[address] S[address]E [address] 2021-07-06 2021-07-06 Travel 1.2.840.1 1.2.128.558 6721 112514 Methodi 00:00:00 00:00:[address] 3.430.2.7 0.2.7.3.698 Ho spita .3.520012 084.8 l .8 2021-07-01 2021-07-01 OFFICE STLM STLC [id number] Co mmon 00:00:00 00:00:00 VISIT NEW Spir it PT LEVEL 4 - [facility] 2021-06-24 2021-06-24 Documentat Siddiqui, 1.2.840.1 [id number] 415 [id number] Methodi 00:00:00 00:00:00 ion Maki 43257.1.[address] 3.430.2.7 Hospit a .3.411104 l .8 2021-06-23 2021-06-23 Documentat Siddiqui, 1.2.840.1 [id number] 048 [id number] Methodi 00:00:00 00:00:00 ion Maki 65035.1.[address] 3.430.2.7 Hospit a .3.991814 l .8 2021-04-22 2021-04-22 Refill Lynn, 1.2.840.1 [id number] 166458 7211 Methodi 00:00:00 00:00:[address] 3.430.2.7 Hospit a .3.755815 l .8 2021-04-07 2021-04-07 [facility] 1.2.840.1 [id number] 21 [id number] Methodi 13:22:43 13:37:43 Visit Souleymane Terrence 67559.1.[address] 3.430.2.7 Hospit a .3.837391 l .8 2021-04-07 2021-04-07 Outpatient RENETTA, [facility] 087 [id number] [place] 00:00:00 00:00:00 SOULEYMANE [address] 2021-04-07 2021-04-07 Travel 1.2.840.1 1.2.681.318 9144 798927 Methodi 00:00:00 00:00:[address] 3.430.2.7 0.2.7.3.698 Ho spita .3.742457 084.8 l .8 2021-02-18 2021-02-18 Telemedici [facility], 1.2.840.1 [id number] 277 [id number] Methodi 10:16:48 11:16:49 ne Onelia 50821.1.[address] 3.430.2.7 Hospit a .3.771442 l .8 2021-02-16 2021-02-16 Lab Stark, 1.2.840.1 [id number] 443777 9548 Methodi 08:29:31 08:34:[address] Sonu 3.430.2.7 Hospit a .3.326331 l .8 2021-02-16 2021-02-16 Telephone [place], 1.2.840.1 [id number] 21 [id number] Methodi 00:00:00 00:00:[address] 3.430.2.7 Hospit a .3.074378 l .8 2021-02-16 2021-02-16 Travel 1.2.840.1 1.2.806.997 2539 600156 Methodi 00:00:00 00:00:[address] 3.430.2.7 0.2.7.3.698 Ho spita .3.060048 084.8 l .8 2021-02-11 2021-02-11 Refill Artur, 1.2.840.1 [id number] 4282 Methodi 00:00:00 00:00:[address] 3.430.2.7 Hospit a .3.324633 l .8 2021-02-11 2021-02-11 Refill Artur, 1.2.840.1 [id number] 460081 3861 Methodi 00:00:00 00:00:[address] 3.430.2.7 Hospit a .3.281116 l .8 2021-02-09 2021-02-09 Office Tanya, 1.2.840.1 [id number] 463700 6543 Methodi 07:42:22 08:03:19 Visit Jus 78851.1.[address] Penelope 3.430.2.7 Hospit a .3.728136 l .8 2021-02-09 2021-02-09 Travel 1.2.840.1 1.2.309.867 1592 104242 Methodi 00:00:00 00:00:[address] 3.430.2.7 0.2.7.3.698 Ho spita .3.029590 084.8 l .8 2021-01-28 2021-01-28 Telephone Desiree 1.2.840.1 [id number] Methodi 00:00:00 00:00:00 , Kiley 73567.1.[address] 3.430.2.7 Hospit a .3.646928 l .8 2021-01-27 2021-01-27 Hospital Sharifa Hansen 1.2.840.1 [id number] 012 [id number] Methodi 06:00:00 13:37:[address] 3.430.2.7 Hospit a .3.069218 l .8 2021-01-27 2021-01-27 Surgery Sharifa Hansen 1.2.840.1 [id number] 2099 335000 Methodi 10:00:00 12:15:[address] 3.430.2.7 Hospit a .3.579926 l .8 2021-01-27 2021-01-27 Anesthesia Paola LobatoTorey 1.2.840 .1 [id number] Methodi 10:49:00 12:11:00 Event Demetra Short 24613.1.[address] 3.430.2.7 Hospit a .3.412486 l .8 2021-01-26 2021-01-26 Travel 1.2.840.1 1.2.289.921 8484 998695 Methodi 00:00:00 00:00:[address] 3.430.2.7 0.2.7.3.698 Ho spita .3.068877 084.8 l .8 2021-01-22 2021-01-22 Hospital Sharifa Hansen 1.2.840.1 [id number] 689 [id number] Methodi 14:45:00 23:59:[address] 3.430.2.7 Hospit a .3.924242 l .8 2021-01-22 2021-01-22 Travel 1.2.840.1 1.2.194.802 7014 089833 Methodi 00:00:00 00:00:[address] 3.430.2.7 0.2.7.3.698 Ho spita .3.568432 084.8 l .8 2021-01-21 2021-01-21 Lab Sharifa Hansen 1.2.840.1 [id number] 2099 [id number] Methodi 14:27:32 14:42:[address] 3.430.2.7 Hospit a .3.263044 l .8 2021-01-21 2021-01-21 Office Tanya, 1.2.840.1 [id number] 394864 0242 Methodi 13:08:26 14:20:16 Visit Jus 29101.1.[address] Penelope 3.430.2.7 Hospit a .3.960789 l .8 2021-01-21 2021-01-21 Outpatient CORNELIO CERVANTES [facility] 320 [id number] [place] 00:00:00 00:00:[address] 2021-01-21 2021-01-21 Telephone Sharifa Hansen 1.2.840.1 [id number] 21 [id number] Methodi 00:00:00 00:00:[address] 3.430.2.7 Hospit a .3.533013 l .8 2021-01-21 2021-01-21 Prep for [place] 1.2.840.1 [id number] 2 [id number] Methodi 00:00:00 00:00:00 Surgery , Kliey 46907.1.[address] 3.430.2.7 Hospit a .3.925630 l .8 2021-01-21 2021-01-21 Orders Connie, 1.2.840.1 [id number] 660 [id number] Methodi 00:00:00 00:00:00 Only Sophia 71093.1.[address] 3.430.2.7 Hospit a .3.797356 l .8 2021-01-21 2021-01-21 Orders [place] 1.2.840.1 [id number] 21 [id number] Methodi 00:00:00 00:00:00 Only , Kiley 83850.1.[address] 3.430.2.7 Hospit a .3.335630 l .8 2021-01-21 2021-01-21 Travel 1.2.840.1 1.2.950.517 7355 117958 Methodi 00:00:00 00:00:[address] 3.430.2.7 0.2.7.3.698 Ho spita .3.899865 084.8 l .8 2021-01-20 2021-01-20 Telephone Renetta, 1.2.840.1 [id number] Methodi 13:56:10 14:11:10 Consult Souleymanekenny Ocampo 10799.1.[address] 3.430.2.7 Hospit a .3.766462 l .8 2021-01-20 2021-01-20 Telephone Cornelio Cervantes 1.2.840.1 [id number] Methodi 00:00:00 00:00:[address] 3.430.2.7 Hospit a .3.143004 l .8 2021-01-19 2021-01-19 Office Jair, 1.2.840.1 [id number] 599806 8257 Methodi 09:31:38 09:51:38 Visit Onelia 18029.1.[address] 3.430.2.7 Hospit a .3.131771 l .8 2021-01-19 2021-01-19 Outpatient STARK, [facility] [id number] 362 [place] 00:00:00 00:00:00 MAYA [address] 2021-01-19 2021-01-19 Outpatient [facility] [id number] 488 [place] 00:00:00 00:00:00 ONELIA [address] 2021-01-19 2021-01-19 Telephone Minerva, 1.2.840.1 [id number] 21 [id number] Methodi 00:00:00 00:00:[address] 3.430.2.7 Hospit a .3.995916 l .8 2021-01-19 2021-01-19 Travel 1.2.840.1 1.2.746.621 6099 644356 Methodi 00:00:00 00:00:[address] 3.430.2.7 0.2.7.3.698 Jaswant patterson .3.985582 084.8 l .8 2021-01-15 2021-01-15 Telephone Stanley, 1.2.840.1 [id number] 2099 [id number] Methodi 00:00:00 00:00:[address] 3.430.2.7 Hospit a .3.177087 l .8 2020-12-24 2020-12-24 Lab Abdellatif, 1.2.840.1 [id number] 21 [id number] Methodi 07:21:53 07:26:53 [address] 12322.1.[address] 3.430.2.7 Hospit a .3.239308 l .8 2020-12-24 2020-12-24 Lab Sadhu, 1.2.840.1 [id number] 754122 4832 Methodi 07:20:47 07:25:[address] 3.430.2.7 Hospit a .3.400077 l .8 2020-12-24 2020-12-24 Telephone Stanley, 1.2.840.1 [id number] 2099 534323 Methodi 00:00:00 00:00:[address] 3.430.2.7 Hospit a .3.437272 l .8 2020-12-24 2020-12-24 Travel 1.2.840.1 1.2.357.714 1990 361369 Methodi 00:00:00 00:00:[address] 3.430.2.7 0.2.7.3.698 Ho spita .3.122166 084.8 l .8 2020-12-17 2020-12-17 Telephone Parveenellatif, 1.2.840.1 [id number] Methodi 00:00:00 00:00:[address]62.1.[address] 3.430.2.7 Hospit a .3.997551 l .8 2020-11-28 2020-11-28 Orders Readeaux, 1.2.840.1 [id number] 2099 [id number] Methodi 00:00:00 00:00:00 Only Billie 93847.1.[address] 3.430.2.7 Hospit a .3.417399 l .8 2020-11-25 2020-11-25 Telephone Renetta, 1.2.840.1 [id number] Methodi 07:57:52 08:12:52 Consult Souleymane Ocampo 89109.1.[address] 3.430.2.7 Hospit a .3.294552 l .8 2020-11-25 2020-11-25 Telephone Cisco, 1.2.840.1 [id number] 2100 836447 Methodi 00:00:00 00:00:00 Kezia [address]ijah 00591.1.[address] 3.430.2.7 Hospit a .3.330294 l .8 2020-11-24 2020-11-24 [facility] [id number] [address] [place] [address] 00:00:00 00:00:00 MAYA [address] 2020-11-24 2020-11-24 Travel 1.2.840.1 1.2.449.855 4099 323439 Methodi 00:00:00 00:00:[address] 3.430.2.7 0.2.7.3.698 Ho spita .3.802557 084.8 l .8 2020-11-12 2020-11-12 Office [facility], 1.2.840.1 [id number] [id number] 6665 Methodi 14:11:11 14:31:11 Visit Onelia 40138.1.[address] 3.430.2.7 Hospit a .3.694329 l .8 2020-11-12 2020-11-12 Travel 1.2.840.1 1.2.897.166 0107 667762 Methodi 00:00:00 00:00:[address] 3.430.2.7 0.2.7.3.698 Ho spita .3.125073 084.8 l .8 2020-11-12 2020-11-12 Outpatient STLMLC STLMLC [id number] Common 00:00:00 00:00:00 [facility] 2020-11-10 2020-11-10 Lab Lincoln, 1.2.840.1 [id number] 197750 9753 Methodi 09:00:31 09:05:[address] Sonu 3.430.2.7 Hospit a .3.779217 l .8 2020-11-10 2020-11-10 Travel 1.2.840.1 1.2.668.555 0650 715617 Methodi 00:00:00 00:00:[address] 3.430.2.7 0.2.7.3.698 Ho spita .3.357679 084.8 l .8 2020-11-05 2020-11-05 Telephone Zach, 1.2.840.1 [id number] 2100 585404 Methodi 00:00:00 00:00:00 Dar[address] Roach 13917.1.[address] 3.430.2.7 Hospit a .3.156380 l .8 2020-11-03 2020-11-03 Marcy Siddiqui, 1.2.840.1 [id number] 031544 5845 Methodi 00:00:00 00:00:[address] 3.430.2.7 Hospit a .3.209584 l .8 2020-10-28 2020-10-28 Telephone Renetta 1.2.840.1 [id number] Methodi 14:38:27 14:53:27 Consult Souleymane Ocampo 71654.1.[address] 3.430.2.7 Hospit a .3.575294 l .8 2020-10-27 2020-10-27 Lab [place], 1.2.840.1 [id number] 263466 6071 Methodi 07:45:13 07:50:[address] Sonu 3.430.2.7 Hospit a .3.093283 l .8 2020-10-27 2020-10-27 Lab Renetta, 1.2.840.1 [id number] 21 [id number] Methodi 07:15:48 07:20:48 Sou[address]ane Ocampo [address]242.1.[address] 3.430.2.7 Hospit a .3.394405 l .8 2020-10-27 2020-10-27 Refill Artur, 1.2.840.1 [id number] 690799 3835 Methodi 00:00:00 00:00:[address] 3.430.2.7 Hospit a .3.209973 l .8 2020-10-27 2020-10-27 Refill Artur, 1.2.840.1 [id number] 253249 4486 Methodi 00:00:00 00:00:[address] 3.430.2.7 Hospit a .3.853709 l .8 2020-10-27 2020-10-27 Travel 1.2.840.1 1.2.832.800 9131 690946 Methodi 00:00:00 00:00:[address] 3.430.2.7 0.2.7.3.698 Ho spita .3.145491 084.8 l .8 2020-10-24 2020-10-24 Telephone Dilcia, 1.2.840.1 [id number] 363 [id number] Methodi 00:00:00 00:00:[address] 3.430.2.7 Hospit a .3.962655 l .8 2020-10-22 2020-10-22 Refill Sadnils, 1.2.840.1 710677584 451505 3853 Methodi 00:00:00 00:00:[address] 3.430.2.7 Hospit a .3.897546 l .8 2020-10-22 2020-10-22 Telephone Stanley, 1.2.840.1 [id number] 2099 793316 Methodi 00:00:00 00:00:[address] 3.430.2.7 Hospit a .3.926308 l .8 2020-10-14 2020-10-14 Telephone Renetta, 1.2.840.1 [id number] Methodi 14:44:11 14:59:11 Consult Souleymane Ocampo 14714.1.[address] 3.430.2.7 Hospit a .3.061491 l .8 2020-10-13 2020-10-13 Lab [place], 1.2.840.1 [id number] 818657 1565 Methodi 07:00:34 07:05:[address] Sonu 3.430.2.7 Hospit a .3.357387 l .8 2020-10-13 2020-10-13 Refkeshia Siddiqui 1.2.840.1 [id number] [id number] 1624 Methodi 00:00:00 00:00:[address] 3.430.2.7 Hospit a .3.675206 l .8 2020-10-13 2020-10-13 Travel 1.2.840.1 1.2.372.732 4228 397436 Methodi 00:00:00 00:00:[address] 3.430.2.7 0.2.7.3.698 Ho spita .3.905985 084.8 l .8 2020-10-06 2020-10-06 Outpatient STLMLC STLMLC [id number] Common 00:00:00 00:00:00 [facility] 2020-10-05 2020-10-05 Travel 1.2.840.1 1.2.212.147 5432 956333 Methodi 00:00:00 00:00:[address] 3.430.2.7 0.2.7.3.698 Ho spita .3.985208 084.8 l .8 2020-10-03 2020-10-03 Refkeshia Siddiqui, 1.2.840.1 [id number] 248734 8114 Methodi 00:00:00 00:00:[address] 3.430.2.7 Hospit a .3.585697 l .8 2020-09-30 2020-09-30 Telephone [place] 1.2.840.1 [id number] 2100 005322 Methodi 10:21:15 10:36:15 Consult Maya 50984.1.[address] Sonu 3.430.2.7 Hospit a .3.308185 l .8 2020-09-30 2020-09-30 Outpatient LINCOLN [facility] [id number] [address] [place] [address] 00:00:00 00:00:00 MAYA [address] 2020-09-30 2020-09-30 Travel 1.2.840.1 1.2.645.041 7014 834948 Methodi 00:00:00 00:00:[address] 3.430.2.7 0.2.7.3.698 Ho spita .3.862288 084.8 l .8 2020-09-29 2020-09-29 Patient Mariajose, Yuliana 1.2.840.1 [id number] 21 [id number] Methodi 00:00:00 00:00:[address] 3.430.2.7 Hospit a .3.729514 l .8 2020-09-26 2020-09-26 Patient Mariajose, Yuliana 1.2.840.1 [id number] Methodi 00:00:00 00:00:[address] 3.430.2.7 Hospit a .3.595976 l .8 2020-09-26 2020-09-26 Outpatient STLMLC STLMLC [id number] Common 00:00:00 00:00:00 [facility] 2020-09-25 2020-09-25 Patient Yuliana Billy 1.2.840.1 [id number] 21 [id number] Methodi 00:00:00 00:00:[address] 3.430.2.7 Hospit a .3.831279 l .8 2020-09-17 2020-09-24 Hospital Ritesh, 12.840.1 [id number] 72796 66399 Methodi 20:12:00 18:10:00 Encounter Nikky 41112.1.[address] 3.430.2.7 Hospit a .3.096518 l .8 2020-09-22 2020-09-22 Orders Nieves, 12.840.1 [id number] 930375 9380 Methodi 00:00:00 00:00:00 Only Uzma 44104.1.[address] 3.430.2.7 Hospit a .3.290228 l .8 2020-08-30 2020-09-17 [facility] 1.2.840.1 10 [id number] Methodi 14:06:00 20:03:00 Encounter Nikky Combs 32977.1.[address] 3.430.2.7 Hospit a .3.361799 l .8 2020-08-08 2020-08-08 Outpatient STLMLC STL[facility]C [id number] Common 00:00:00 00:00:00 [facility] 2020-08-06 2020-08-06 Outpatient STLMLC STLMLC [id number] Common 00:00:00 00:00:00 [facility] 2020-08-05 2020-08-05 [facility] [id number] [place] 00:00:00 00:00:00 SOULEYMANE [address] 2020-08-05 2020-08-05 Outpatient SEBASTIEN, [facility] [id number] 334 [place] 00:00:00 00:00:00 AHMED [address] 2020-08-04 2020-08-04 Outpatient STLMLC STLMLC [id number] Common 00:00:00 00:00:00 [facility] 2020-07-07 2020-07-07 [facility]89 [id number] [place] 00:00:00 00:00:00 SOULEYMANE [address] 2020-06-02 2020-06-02 Outpatient STLMLC STL[facility]C [id number] Common 00:00:00 00:00:00 [facility] 2020-05-22 2020-05-22 Outpatient STLMLC STLMLC [id number] Common 00:00:00 00:00:00 [facility] 2020-05-20 2020-05-20 Outpatient [facility], [facility] [id number] [address] [place] [address] 00:00:00 00:00:00 ONELIA [address] 2020-03-14 2020-03-14 Out[facility] 32 [id number] Common 16:20:00 16:20:[address] [facility] 2020-02-23 2020-02-23 Outpatient [facility] 31 [id number] Common 17:58:00 17:58:[address] [facility] 2020-02-18 2020-02-18 Outpatient [facility] 31 [id number] Common 08:20:00 08:20:[address] [facility] 2020-01-22 2020-01-22 Outpatient STARK, [facility] [id number] 333 [place] 00:00:00 00:00:00 MAYA [address] 2020-01-21 2020-01-21 Out[facility] 31 [id number] Common 13:00:00 13:00:[address] [facility] 2020-01-15 2020-01-15 Outpatient ABDELLATIF, [facility] [id number] [place] 00:00:00 00:00:00 SOULEYMANE [address] 2019-12-11 2019-12-11 Outpatient [facility] 30 [id number] Common 16:09:00 16:09:[address] [facility] [address] [facility] 2019-12-07 2019-12-07 Outpatient [facility] 30 [id number] Common 13:40:00 13:40:00 t [facility] [address] [facility] 2019-12-07 2019-12-07 Outpatient [facility] 30 [id number] Common 08:06:00 08:06:00 t [facility] [address] [facility] 2019-12-06 2019-12-06 [facility] 30 [id number] Common 11:59:00 11:59:[address] [facility] 2019-11-23 2019-11-25 Outpatient [facility] 064 [id number] [place] 00:00:00 00:00:00 YULISA [address] 2019-10-11 2019-10-11 Outpatient [facility] 29 [id number] Common 09:00:00 09:00:[address] [facility] Results Test Description Test Time Test Comments Results Result Comments Source Six minute walk w/ pulse oximetry 2022-11-25 19:06:28 Test Item Value Reference Range Interpretation Comme nts Six Minute Walk Distance (ft) (test code = 7665) 1007.00 Feet Six Minute Walk Distance (m) (test code = 7614) 307.00 m 343.32 -621.32 Six Minute Walk Distance Predicted (test code = 5645) 482 Six Minute Walk Distance % Predicted (test code = 5646) 63.7 % SP02 at Rest (test code = 7617) 98.00 % SP02 at after 1 minute (test code = 7630) 98.00 % SP02 at after 2 minutes (test code = 7636) 97.00 % SP02 at after 3 minutes (test code = 7642) 98.00 % SP02 at after 4 minutes (test code = 7648) 95.00 % SP02 at after 5 minutes (test code = 7654) 96.00 % SP02 at after 6 minutes (test code = 7660) 95.00 % Heart Rate at Rest (test code = 7615) 73.00 1/min Heart Rate after 1 minute (test code = 7629) 77.00 1/min Heart Rate after 2 minutes (test code = 7635) 76.00 1/min Heart Rate after 3 minutes (test code = 7641) 80.00 1/min Heart Rate after 4 minutes (test code = 7647) 83.00 1/min Heart Rate after 5 minutes (test code = 7653) 82.00 1/min Heart Rate after 6 minutes (test code = 7659) 80.00 1/min Supplemental O2 During Rest (test code = 7624) 0.00 L/min Supplemental O2 after 1 minute (test code = 7634) 0.00 L/min Supplemental O2 after 2 minutes (test code = 7640) 0.00 L/min Supplemental O2 after 3 minutes (test code = 7646) 0.00 L/min Supplemental O2 after 4 minutes (test code = 7652) 0.00 L/min Supplemental O2 after 5 minutes (test code = 7658) 0.00 L/min Supplemental O2 after 6 minutes (test code = 7664) 0.00 L/min BP Systolic at Rest (test code = 7622) 142.00 mmHg BP Systolic after 6 minutes (test code = 7662) 136.00 mmHg BP Diastolic at Rest (test code = 7623) 69.00 mmHg BP Diastolic after 6 minutes (test code = 7663) 64.00 mmHg Geri Dyspnea Scale at Rest (test code = 7619) 0.00 Geri Dyspnea Scale after 6 minutes (test code = 7661) 1.00 Lowest SpO2 (test code = 7618) 95.00 % Highest Heart Rate (test code = 7616) 84.00 BPM Lap Count (test code = 7625) 7.00 Premature Stop (test code = 7621) 0.00 Number of Stops (test code = 7626) 0.00 Gait Speed (test code = 7627) 8.44 sec [facility] [id number] 11:22:00 Test Item Value Reference Range Interpretation Comments GLUCOSE BEDSIDE (test 307 MG/DL 70-110 H Perfor med by certified code = GLUBED) 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5 L CA) [id number] 07:02:00 Test Item Value Reference Range Interpretation Comments PHOSPHOROUS (test code = PHOS) 5.4 MG/DL 2.5-4.9 H [id number] 07:02:00 Test Item Value Reference Range Interpretation Comments MAGNESIUM (test code = MAG) 2.09 mg/dL 1.80-2.40 N CBC W/AUTO [id number] 06:48:00 Test Item Value Reference Range Interpretation [...] NO = MDIFF) - XR CHEST 1 [id number] 00:00:00 [facility] : 1955 Sex: F FAX: Az Torres [phone] [place]: St: ADM FAX: Rose Marie Stewart [phone] -- Name: TADPAOLA S [facility] : 1955 Age/S: 66/F [address] [place] [address] Unit #: [id number] Loc: G.[address] [place] [id number] Phys: Az Francois MD Acct: [id number] Dis Date: Status: ADM IN PHONE #: [phone] Exam Date: 04/30/2022 09 FAX #: [phone] Reason: Post Op in PACU EXAMS: CPT CODE: [id number] XR CHEST 1 V 41685 PROCEDURE INFORMATION: Exam: XR Chest Exam date [...] signed by: Emre Prakash M.D. 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 [facility] GLUCOSE [id number] 11:28:00 Test Item Value Reference Range Interpretation Comments GLUCOSE BEDSIDE (test 217 MG/DL 70-110 H Perfor med by certified code = GLUBED) 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 [facility] GLUCOSE [id number] 08:00:00 Test Item Value Reference Range Interpretation Comments GLUCOSE BEDSIDE (test 289 MG/DL 70-110 H Perfor med by certified code = GLUBED) 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 [facility] GLUCOSE [id number] 20:06:00 Test Item Value Reference Range Interpretation Comments GLUCOSE BEDSIDE (test 223 MG/DL 70-110 H Perfor med by certified code = GLUBED) 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5 L CA) [id number] 07:39:00 Test Item Value Reference Range Interpretation Comments PHOSPHOROUS (test code = PHOS) 7.4 MG/DL 2.5-4.9 H [id number] 07:39:00 Test Item Value Reference Range Interpretation Comments MAGNESIUM (test code = MAG) 2.22 mg/dL 1.80-2.40 N CBC W/AUTO [id number] 07:26:00 Test Item Value Reference Range Interpretation [...] REQUIRED (test code NO = MDIFF) GLUCOSE [id number] 07:20:00 Test Item Value Reference Range Interpretation Comments GLUCOSE BEDSIDE (test 229 MG/DL 70-110 H Perfor med by certified code = GLUBED) 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 15-20 mcg/mL - Bacteremia, Infective Endocarditis, Meningitis, Osteomyelitis, Pneumonia, Lanette re Skin/Soft-Tissu e Infection, Spin al Abscess. 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 [facility] GLUCOSE [id number] 11:42:00 Test Item Value Reference Range Interpretation Comments GLUCOSE BEDSIDE (test 234 MG/DL 70-110 H Perfor med by certified code = GLUBED) 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 [facility] BASIC METABOLIC [id number] 07:55:00 Test Item Value Reference Range Interpretation [...] = 8.4 mg/dL 8.0-10.5 N CA) GLUCOSE [id number] 07:24:00 Test Item Value Reference Range Interpretation Comments GLUCOSE BEDSIDE (test 207 MG/DL 70-110 H Perfor med by certified code = GLUBED) 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 [facility] CBC W/AUTO [id number] 07:14:00 Test Item Value Reference Range Interpretation [...] (test code NO = MDIFF) ACUTE HEPATITIS [id number] 05:10:00 Test Item Value Reference Range Interpretation [...] COMMENTS: At start of hemodialysisAB HEPATITIS B [id number] 05:10:00 Test Item Value Reference Range Interpretation Comments AB HEPATITIS B > 1000.0 mIU/mL See_Comment Status of Immunity SURFACE (test code Anti-HBs Level = HBSAB) --- I ncons istent with Imm unity 0.0 - 9.9Consis tent with Immunity >9.9Performed A t: HD [facility] [address] [id number] Ha Weiss MD Ph:[phone] [Automated mess age] The system [employer] generated this result transmit carolina reference range : Immunity>9.9. T he reference range was not used to interpret this result as normal/abnormal . 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 [facility] CBC W/AUTO [id number] 07:14:00 Test Item Value Reference Range Interpretation [...] MDIFF) - MRI LOW EXT W/O CONT [id number] 00:00:00 [facility] : 1955 Sex: F FAX: Rose Marie Stewart [phone] [place]: St: [facility] FAX: Mellissa Ng MD [phone] -- Name: PAOLA MISHRA [facility] : 1955 Age/S: 66/F [address] [place] [address] Unit #: [id number] Loc: [place] [place] [address] Phys: Mellissa Suarez MD Acct: [id number] Dis Date: Status: ADM IN PHONE #: Exam Date: 04/26/2022 1148 FAX #: [phone] Reason: rt heel wound EXAMS: CPT CODE: [id number] MRI LOW EXT W/[place] [address] PROCEDURE INFORMATION: Exam: MR Right Lower Extremity [...] MD; Mellissa Suarez MD Technologist: RT Lissa(R)(CT) [facility] Date/Time/By: 04/26/20 22 (1311) : By: [email or web address] Orig Print D/T: S: 04/26/2022 (131) PAGE 1 Signed Report- XR FOOT 3 + V [id number] 00:00:00 [facility] VIET WALLERName: PAOLA MISHRA : 1955 Sex: F FAX: Rose Marie Stewart [phone] [place]: St: [facility] FAX: Xavi Sloan DPM [phone] ------ Name: PAOLA MISHRA [facility] [place] : 1955 Age/S: 66/F [address] [place] [address] Unit #: [id number] Loc: G.6605 [place] [address] Phys: Xavi Sloan DPM Acct: [id number] Dis Date: Status: ADM IN PHONE #: [phone] Exam Date: 04/25/2022 1558 FAX #: [phone] Reason: chronic ulcer right heel EXAMS: CPT CODE: [id number] XR FOOT 3 + V [place] 47912 PROCEDURE INFORMATION: Exam: XR Right Foot Exam [...] Reported and signed by: Nick Johnson M.D. 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 [facility] BASIC METABOLIC [id number] 08:08:00 Test Item Value Reference Range Interpretation [...] 8.1 mg/dL 8.0-10.5 N CA) CBC W/AUTO [id number] 07:33:00 Test Item Value Reference Range Interpretation [...] REQUIRED (test code NO = MDIFF) GLUCOSE [id number] 07:24:00 Test Item Value Reference Range Interpretation Comments GLUCOSE BEDSIDE (test 164 MG/DL 70-110 H Perfor med by certified code = GLUBED) 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 [facility] - XR ANKLE 3 + V [id number] 00:00:00 [facility] : 1955 Sex: F FAX: Rose Marie Stewart [phone] [place]: St: ADM FAX: LutherXavi DPM [phone] ------- Name: TADPAOLA Tremaine [facility] : 1955 Age/S: 66/F [address] [place] [address] Unit #: [id number] Loc: .6605 [place] [address] Phys: Xavi Sloan DPM Acct: [id number] Dis Date: Status: ADM IN PHONE #: [phone] Exam Date: 04/24/2022 1619 FAX #: [phone] Reason: chronic ulcer right heel EXAMS: CPT CODE:[id number] XR ANKLE 3 + V RT 01247 PROCEDURE INFORMATION: Exam: XR Right Ankle Exam [...] No acute abnormality. 2. No radiographic evidence for osteomyelitis. at 0748 Reported and signed by: Ivette Milligan M.D. CC: Marcella Stewart MD; Xavi Kwon Technologist: Abimbola Huitron, RT(R); Mely Nobles RT(R) Trnscrd Date/Time/By: 04/25/2022 (0748) : By: [email or web address] [facility] Print D/T: S: 04/25/2022 (0749) PAGE 1 Signed Report- DOP ART SGL LEVEL REGINE 2022-04-25 00:00:00 [facility] : 1955 Sex: F Name: PAOLA MISHRA [facility] : 1955 Age/S: 66 / F [address] [place] [address] Unit #: [id number] Loc: [place] [address] Phys: Xavi Sloan Effie Acct: [id number] Dis Date: Status: ADM IN PHONE #: [phone] Exam Date: 04/25/2022 1103 FAX #: [phone] Reason: chronic wound right heel EXAMS: CPT CODE: [id number] DOP ART SGL LEVEL REGINE 26649 PROCEDURE INFORMATION: Exam: US DuplexLower Extremity Arteries Exam date and time: 04/25/2022 [...] 1 Signed Report (CONTINUED) Name: PAOLA MISHRA [facility] : 1955 Age/S: 66 / F [address] [place] [address] Unit #: [id number] Loc: [place] [address] Phys: Xavi Sloan DPM Acct: [id number] Dis Date: Status: ADM IN PHONE #: [phone] Exam Date: 04/25/2022 1103 FAX #: [phone] Reason: chronic wound right heel EXAMS: CPT CODE: [id number] DOP ART SGL LEVEL REGINE 04187 (Continued) vascular disease. at 1130 Reported and signed by: Ivette Villegas M.D. 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 [facility] SED RATE [id number] 18:14:00 Test Item Value Reference Range Interpretation Comments SED RATE WESTERGREN (test code = 14 mm/hr 0-20 N SEDW) GLUCOSE [id number] 16:06:00 Test Item Value Reference Range Interpretation Comments GLUCOSE BEDSIDE (test 205 MG/DL 70-110 H Perfor med by certified code = GLUBED) 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 [facility] GLUCOSE [id number] 11:52:00 Test Item Value Reference Range Interpretation Comments GLUCOSE BEDSIDE (test 172 MG/DL 70-110 H Perfor med by certified code = GLUBED) 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 [facility] BASIC METABOLIC [id number] 08:33:00 Test Item Value Reference Range Interpretation [...] 8.0 mg/dL 8.0-10.5 N CA) CBC W/AUTO [id number] 07:13:00 Test Item Value Reference Range Interpretation [...] REQUIRED (test code NO = MDIFF) GLUCOSE [id number] 07:11:00 Test Item Value Reference Range Interpretation Comments GLUCOSE BEDSIDE (test 168 MG/DL 70-110 H Perfor med by certified code = GLUBED) 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 [facility] GLUCOSE [id number] 03:47:00 Test Item Value Reference Range Interpretation Comments GLUCOSE BEDSIDE (test 199 MG/DL 70-110 H Perfor med by certified code = GLUBED) 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 [facility] BASIC METABOLIC [id number] 13:13:00 Test Item Value Reference Range Interpretation [...] 8.0 mg/dL 8.0-10.5 N CA) HEPATIC FUNCTION [id number] 13:13:00 Test Item Value Reference Range Interpretation [...] IUnit/L 20-125 N code = ALKP) LACTIC [id number] 13:08:00 Test Item Value Reference Range Interpretation Comments LACTIC ACID (test code = LACT) 0.9 mmol/L 0.4-1.9 N CBC W/AUTO [id number] 12:55:00 Test Item Value Reference Range Interpretation [...] NO = MDIFF) - XR CHEST 1 [id number] 00:00:00 [facility]AD [facility] Tremaine : 1955 Sex: F FAX: Az Torres [phone] [place]: [address]: FAX: Rose Marie Stewart [phone] -- Name: PAOLA MISHRA [facility] : 1955 Age/S: 66/F [address] [place] [address] Unit #: [id number] Loc: [address] [place] [address] Phys: Az Francois MD Acct: [id number] Dis Date: Status: ADM IN PHONE #: Exam Date: 04/23/20222127 FAX #: [phone] Reason: CONFIRM CENTRAL LINE PLACEMENT EXAMS: CPT CODE: [id number] XR CHEST 1 V 91097 PROCEDURE INFORMATION: Exam: XR Chest Exam date and time:04/23/2022 9:09 PM Age: 66 years old Clinical [...] signed by: Chucky Leavitt M.D. CC: Az Francois MD; Marcella Stewart MD Technologist: Terra Rucker RT(R) Trnscrd Date/Time/By: 04/23/2022 (2151) : By: [email or web address] Orig Print D/T: S: 04/23/2022 (2152) PAGE 1 Signed Report- XR CHEST 2 V 2022-04-23 00:00:00 [facility] : 1955 Sex: F FAX: Allison Etienne [place]: St: REG Name: PAOLA MISHRA [facility] : 1955 Age/S: 66/F [address] [place] [address] Unit #: [id number] Loc: [place] [address] Phys: Allison Etienne Acct: [id number] Dis Date: Status: REG ER PHONE #: [phone] Exam Date: 04/23/2022 1145 FAX #: [phone] Reason: FLUID OVERLOAD EXAMS: CPT CODE: [id number] XR CHEST 2 V 26933 PROCEDURE INFORMATION: Exam: XR Chest Exam date and time: 04/23/2022 11:43 AM Age: 66 years old Clinical indication: Other: Fluid overload TECHNIQUE: Imaging protocol: Radiologic exam of the chest. Views: 2 views. PA and LateralCOMPARISON: DX XR CHEST 2 V 01/19/2022 4:42 PM FINDINGS: Lungs: Central bronchial wall thickening with marked pulmonary vascular congestion and or central interstitial edema. Scattered platelike atelectasis seen in the lingula and right middle lobe without dense lobar consolidation. Pleural spaces: No pleural effusion. No pneumothorax. Heart/Mediastinum: The cardiac silhouette [...] signed by: Theo Flowers M.D. CC: Allison Vargasehn Technologist: RT Colt(R) Trnscrd Date/Time/By: 04/23/2022 (1233) : By: [email or web address] Orig Print D/T: S: 04/23/2022 (1233) PAGE 1 Signed ReportComprehensive metabolic [id number] 21:49:00 Test Item Value Reference Range Interpretation [...] . Sodium (test code = 136 mmol/L 061-051 1081-2) Potassium (test code 6.5 mmol/L 3.5-5.3 H [...] Calcium (test code = 9.9 mg/dL 8.6-10.4 64686-4) Protein (test code = 7.1 g/dL 6.1-8.1 2885-2) Albumin, S (test 3.8 g/dL 3.6-5.1 code = 1751-7) Globulin, total See_Comment [Automated (test code = message] The 57065-0) system which generated this result transmitted reference range : 1.9 - 3.7 g/dL (calc). The reference range was not used to interpret this result as normal/abnormal . Albumin/globulin See_Comment [Automated ratio (test code = message] The 0) system which generated this result transmitted reference [...] RAC) Organization Information: Site ID: RGA Name: [employer] Address: [address] [place] [address] Director: Jake Guillen Lab Interpretation Abnormal (test code = 98558-0) [facility] with platelet and [id number] 21:49:00 Test Item Value Reference Range Interpretation Comments WBC (test code = See_Comment [Automated 90-2) message] The system which generated this result [...] RAC) Organization Information: Site ID: RGA [facility] Address: [address] [place] [address] Director: Jake Guillen Lab Interpretation Abnormal (test code = 82713-7) [facility] Center[facility] antigen, [id number] 21:49:00 Test Item Value Reference Range Interpretation Comments Source (test code Serum = 48304-6) Cryptococcal Ag Not Detected Not Detected Culture josue uld be (test code = [place] [address]-8) initial positivesample in order to recove r the causative organism forpre cise identification (C. neoformans vs. C. gattii)and potential susceptibility testing. AMIRA (test code = FASTING:NO AMIRA) FASTING: NO RAC (test code = Performing RAC) Organization Information: Site ID: AMD Name: [employer] [place] Address: [address] [place] [address] [place] [address] Director: Myron Mcdonald M.D.,PhD [facility] CenterComprehensive metabolic [id number] 21:49:00 Test Item Value Reference Range Interpretation [...] . Sodium (test code = 136 mmol/L 770-066 1280-2) Potassium (test code 6.5 mmol/L 3.5-5.3 H [...] Calcium (test code = 9.9 mg/dL 8.6-10.4 97192-5) Protein (test code = 7.1 g/dL 6.1-8.1 2885-2) Albumin, S (test 3.8 g/dL 3.6-5.1 code = 1751-7) Globulin, total See_Comment [Automated (test code = message] The 94646-5) system which generated this result transmitted reference [...] RAC) Organization Information: Site ID: RGA [facility]: [facility] Address: [address] [place] [address] Director: Jake Guillen Lab Interpretation Abnormal (test code = 88945-0) [facility] with platelet and [id number] 21:49:00 Test Item Value Reference Range Interpretation [...] RAC) Organization Information: Site ID: RGA Name: [employer] Address: [address] [place] [address] Director: Jake Guillen Lab Interpretation Abnormal (test code = 65510-2) [facility], [id number] 21:49:00 Test Item Value Reference Range Interpretation Comments Source (test code Serum = 95952-2) Cryptococcal Ag Not Detected Not Detected Culture josue uld be ([place] = [place] [address]-0) initial positivesample in order to recove r the causative organism forpre cise identification (C. neoformans vs. C. gattii)and potential susceptibility testing. AMIRA (test code = FASTING:NO AMIRA) FASTING: NO RAC (test code = Performing RAC) Organization Information: Site ID: AMD Name: [employer] [place] Address: [address] [place] [address] [place] [address] Director: Myron Mcdonald M.D.,PhD [facility] metabolic [id number] 21:49:00 Test Item Value Reference Range Interpretation Comments Glucose (test code = 194 mg/dL 65-139 H Non-f asting 2345-7) reference interval BUN (test code = [...] . Sodium (test code = 136 mmol/L 113-693 4145-2) Potassium (test code 6.5 mmol/L 3.5-5.3 H [...] Calcium (test code = 9.9 mg/dL 8.6-10.4 48801-9) Protein (test code = 7.1 g/dL 6.1-8.1 2885-2) Albumin, S (test 3.8 g/dL 3.6-5.1 code = 1751-7) Globulin, total See_Comment [Automated (test code = message] The 90293-8) system which generated this result transmitted reference [...] 1920-8) ALT (test code = 6 U/L 62-6) AMIRA (test code = FASTING:NO AMIRA) FASTING: NO RAC (test code = Performing RAC) Organization Information: Site ID: RGA [facility] Address: [address] [place] [address] Director: Jake Guillen Lab Interpretation Abnormal (test code = 60801-1) [facility] with platelet and [id number] 21:49:00 Test Item Value Reference Range Interpretation Comments WBC (test code = See_Comment [Automated 1590-2) message] The system which generated this result transmitted reference range : 3.8 - 10.8 Thousand/uL. Th e reference range was not used to interpret this result as normal/abnormal . RBC (test code = See_Comment L [Automated 629-8) message] The system which generated this result [...] RAC) Organization Information: Site ID: RGA Name: [employer] [facility] Address: [address] [place] [address] Director: Jake Guillen Lab Interpretation Abnormal (test code = 22900-8) [facility] CenterCryptococcal antigen, [id number] 21:49:00 Test Item Value Reference Range Interpretation Comments Source (test code Serum = 46009-6) Cryptococcal Ag Not Detected Not Detected Culture josue ulvilla be (test [place] = [place] [address]-7) initial positivesample in order to recove r the causative organism forpre cise identification (C. neoformans vs. C. gattii)and potential susceptibility testing. AMIRA (test code = FASTING:NO AMIRA) FASTING: NO RAC (test code = Performing RAC) Organization Information: Site ID: [facility] Name: [employer] Address: [address] [place] [address] [place] [address] Director: Myron Mcdonald M.D.,PhD [facility] CenterComprehensive metabolic [id number] 21:49:00 Test Item Value Reference Range Interpretation [...] . Sodium (test code = 136 mmol/L 343-361 5731-2) Potassium (test code 6.5 mmol/L 3.5-5.3 H [...] Calcium (test code = 9.9 mg/dL 8.6-10.4 14137-7) Protein (test code = 7.1 g/dL 6.1-8.1 2885-2) Albumin, S (test 3.8 g/dL 3.6-5.1 code = 1751-7) Globulin, total 3.3 See_Comment [Automated (test code = message] The 15048-0) system which generated this result transmitted reference range : 1.9 - 3.7 g/dL (calc). The reference range was not used to interpret this result as normal/abnormal . Albumin/globulin 1.2 See_Comment [Automated ratio (test code = message] The ) system which generated this result transmitted reference [...] RAC) Organization Information: Site ID: RGA Name: [facility] Address: [address] [place] [address] Director: Jake Guillen Lab Interpretation Abnormal (test code = 09183-3) [facility] with platelet and dbdydgwfdwhs7877-88-50 21:49:00 Test Item Value Reference Range Interpretation Comments WBC (test code = 5.3 See_Comment [Automated 7873-2) message] The system which generated this result [...] RAC) Organization Information: Site ID: RGA Name: [employer] [facility] Address: [address] [place] [address] Director: Jake Guillen Lab Interpretation Abnormal (test code = 62466-8) [facility] CenterCryptococcal antigen, [id number] 21:49:00 Test Item Value Reference Range Interpretation Comments Source (test code Serum = 82614-4) Cryptococcal Ag Not Detected Not Detected Culture josue uld be (test code = performed on ) initial positivesample in order to recove r the causative organism forpre cise identification (C. neoformans vs. C. gattii)and potential susceptibility testing. AMIRA (test code = FASTING:NO AMIRA) FASTING: NO RAC (test code = Performing RAC) Organization Information: Site ID: AMD Name: [employer]onKatyha me[place] Address: [address] [place] [address] Dr [place], [place] Director: Myron Mcdonald M.D.,PhD [facility], [id number] 21:49:00 Test Item Value Reference Range Interpretation Comments Source (test code Serum = 87430-3) Cryptococcal Ag Not Detected Not Detected Culture josue uld be (test code = [place] e [address]-0) initial positivesample in order to recove r the causative organism forpre cise identification (C. neoformans vs. C. gattii)and potential susceptibility testing. 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] signed by: Geoffrey Govea M.D. 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 [facility] GLUCOSE [id number] 11:13:00 Test Item Value Reference Range Interpretation Comments GLUCOSE BEDSIDE (test 148 MG/DL 70-110 H Perfor med by certified code = GLUBED) 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 [facility] GLUCOSE [id number] 07:27:00 Test Item Value Reference Range Interpretation Comments GLUCOSE BEDSIDE (test 105 MG/DL 70-110 N Perfor med by certified code = GLUBED) 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 [facility] BASIC METABOLIC [id number] 07:23:00 Test Item Value Reference Range Interpretation [...] 8.9 mg/dL 8.0-10.5 N CA) CBC W/AUTO [id number] 06:40:00 Test Item Value Reference Range Interpretation [...] REQUIRED (test code NO = MDIFF) GLUCOSE [id number] 06:33:00 Test Item Value Reference Range Interpretation Comments GLUCOSE BEDSIDE (test 66 MG/DL 70-110 L Perfor med by certified code = GLUBED) 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 It is an Emergency Use Authorization ( EUA) testauthorized by the U.S. FDA. BASIC METABOLIC [id number] 09:02:00 Test Item Value Reference Range Interpretation [...] 8.3 mg/dL 8.0-10.5 N CA) CBC W/AUTO [id number] 08:39:00 Test Item Value Reference Range Interpretation [...] 0.0-0.1 N NRBC#) - XR CHEST 2 [id number] 00:00:00 [facility] : 1955 Sex: F FAX: Az Torres [phone] [place]: St: PRE FAX: Nellie Vines Name: PAOLA MISHRA [facility] : 1955 Age/S: 66/F [address] [place] [address] Unit #: [id number] Loc: [place] [address] Phys: Nellie Vines DIRECTOR PAID MEDIA Acct: [id number] Dis Date: Status: PRE [facility] PHONE #: [phone] Date: 12/08/2021920 FAX #: [phone] Reason: PREOP EXAMS: CPT CODE: [id number] XR CHEST 2 [id number] PROCEDURE INFORMATION: Exam: XR Chest Exam date and time: 12/08/2021 8:52 AM Age: 66 years old Clinical indication: Pre- operative [...] signed by: Alex Diallo M.D. CC: Delmi Francois MD; Nellie Vines NP Technologist: ESTEPHANIE Cruz) Trnscrd Date/Time/By: 12/08/2021 (06) : By: [email or web address] Orig Print D/T: S: 12/08/2021 (3066) PAGE 1 [facility]2022-04-26 22:09:00 Test Item Value Reference Range Interpretation Comments POC glucose (test code 184 mg/dL 65-99 H Opera tor Name: Tristan = 20131-0) GwendolynDevice ID: [id number] Lab Interpretation Abnormal (test code = 66281-1) [facility]2022-04-26 22:09:00 Test Item Value Reference Range Interpretation Comments POC glucose (test code 184 mg/dL 65-99 H Opera tor Name: Tristan = 56805-1) GwendolynDevice ID: [id number] Lab Interpretation Abnormal (test code = 01098-1) [facility]2022-04-26 22:09:00 Test Item Value Reference Range Interpretation Comments POC glucose (test code 184 mg/dL 65-99 H Opera tor Name: Tristan = 39752-4) GwendolynDevice ID: [id number] Lab Interpretation Abnormal (test code = 11900-5) [facility]2022-04-26 22:09:00 Test Item Value Reference Range Interpretation Comments POC glucose (test code 184 mg/dL 65-99 H Opera tor Name: Tristan = 28388-2) GwendolynDevice ID: [id number] Lab Interpretation Abnormal (test code = 02497-7) [facility] RNA [Presence] in Respiratory specimen by FROYLAN with probe [id number] 06:33:34 Test Item Value Reference Range Interpretation Comments SARS-CoV-2 (COVID-19) RNA Not detected [Presence] in Respiratory specimen by FROYLAN with probe detection (test code = 40818-3) Whether patient is employed in a Unknown healthcare setting (test code = 25912-3) Whether the patient has symptoms Unknown related to condition of interest (test code = 64992-7) Whether the patient was Unknown hospitalized for condition of interest (test code = 69192-1) Whether the patient was admitted Unknown to intensive care unit (ICU) for condition of interest (test code = 10162-2) Whether patient resides in a Unknown congregate care setting (test code = 53931-0) status (test code = Unknown 24071-2) Date and time of symptom onset Unknown (test code = 29536-5) [facility] [id number] 02:00:00 Test Item Value Reference Range Interpretation Comments Urine culture (test SEE COMMENT Bacteriu polo screen code = 0739599) negative. [facility]2022-04-19 02:00:00 Test Item Value Reference Range Interpretation Comments Urine culture (test SEE COMMENT Bacteriu polo screen code = 4905097) negative. [facility]2022-04-19 02:00:00 Test Item Value Reference Range Interpretation Comments Urine culture (test SEE COMMENT Bacteriu polo screen code = 0488015) negative. [facility]2022-04-19 02:00:00 Test Item Value Reference Range Interpretation Comments Urine culture (test SEE COMMENT Bacteriu polo screen code = 1046275) negative. [address]2022-03-21 05:10:54 Test Item Value Reference Range Interpretation Comments Ventricular rate (test code = 253) Atrial rate (test code = 255) MO interval (test code = 266) QRSD interval [...] of 14-OCT-2021 11:26,-No significant change was found- [address]2022-03-21 05:10:54 Test Item Value Reference Range Interpretation Comments Ventricular rate (test code = 253) Atrial rate (test code = 255) MO interval (test code = 266) QRSD interval [...] of 14-OCT-2021 11:26,-No significant change was found- [address]2022-03-21 05:10:54 Test Item Value Reference Range Interpretation Comments Ventricular rate (test code = 253) Atrial rate (test code = 255) MO interval (test code = 266) QRSD interval [...] of 14-OCT-2021 11:26,-No significant change was found- [address]2022-03-21 05:10:54 Test Item Value Reference Range Interpretation Comments Ventricular rate (test 75 code = 253) Atrial rate (test code 75 = 255) MO interval (test code 136 = 266) QRSD [...] of 14-OCT-2021 11:26,-No significant change was found- [facility], (w Contrast, Strain and 3D if needed)2021-10-11 23:35:53 Test Item Value Reference Range Interpretation Comments LA Vol 4C (test code 31.00 ml = 7184841028) LA diam s (test code 4.00 cm = 7190117207) Aortic Root (test 2.73 cm code = 3801223853) AR maxPG (test code = 56.44 7761969838) D E excurs (test code 1.50 = 1118697896) E f slope (test code 0.03 = 9626558913) E prime lat (test 0.08 code = 8021844250) E laura sept (test 0.06 code = 0793807420) PV acc T slope (test 9.90 code = 5047739916) PALACIOS BP EF (test 63.00 % code = 5367926960) LA VOL 2C (test code 52.00 ml = 5639458008) AoV Area, Vmax (test 1.80 cm2 code = 8717896249) AoV Area, VTI (test 2.21 cm2 code = 4165817637) AoV Mean PG (test 6.44 mmHg code = 4955412179) AoV Peak PG (test 13.87 mmHg code = 2452556102) AoV Vmax (test code = 1.96 m/s 1815043136) AoV VTI (test code = 0.37 m 0851415014) BSA Puente (test code = 1.55 m2 5941328088) BSA (test code = 1.52 m2 3331380276) IVS,d (test code = 1.09 cm 4492193072) IVS/LVPW,2D (test 1.20 code = 8058295456) LV,d (test code = 3.81 cm 0139642607) LV EF,2D (test code = 62.41 % 5306125630) LV EF,A2C (test code 60.34 % = 5576516095) LV EF,A4C (test code 64.47 % = 7097519017) LV EF,BP (test code = 62.54 % 5844279815) [place]orne [place],d A2C (test 6.48 cm code = 9890201784) [place]orne [place],d A4C (test 6.43 cm code = 5024794667) Lorne [place],s A2C (test 5.21 cm code = 0522014422) [place],s A4C (test 5.16 cm code = 5680031080) LV,s (test code = 2.75 cm 8193067563) LV SV,A2C (test code 36.28 % = 1346225771) LV SV,A4C (test code 45.96 % = 1815373159) LV SV,BP (test code = 40.98 % 5121148545) LV Vol,d A2C (test 60.12 mL code = 1401148034) LV Vol,d A4C (test 71.28 ml code = 5990005505) LV Vol,d BP (test 65.54 ml code = 0405709585) LV Vol,s A2C (test 23.84 mL code = 7994860645) LV Vol,s A4C (test 25.32 ml code = 8664732767) LV Vol,s BP (test 24.55 nl code = 0163623068) LVOT area (test code 2.46 cm2 = 6208989202) LVOT Diam,S (test 1.77 cm code = 1334126730) LVOT Vmax (test code 1.38 m/s = 2314763506) LVOT VTI (test code = 0.31 m 5057255131) LVPWD,d (test code = 0.91 cm 2639042642) RVSP (TR) (test code 31.04 mmHg = 4577446393) TR Vpeak (test code = 2.35 mm/s 7912661056) AR Press Half Time 810.31 ms (test code = 4334529936) MV E A ratio (test 0.57 code = 8322980776) RA pressure (test 10.00 mmHg code = 4937433852) TR pk grad (test code 21.04 mmHg = 9543257139) AoV area i VTI BSA 1.45 cm2/m2 [place] (test code = 9418534476) LV SI MOD BP BSA 26.96 ml/m2 Leena (test code = 4456195460) LV Vol Index s bpmod 43.10 ml/m2 BSA [place] (test code = 0300083768) PV Vmn (test code = 16.15 m/s 6076643531) BMI (test code = 22.67 kg/m2 8242056467) E wave decelartion 323.31 msec time (test code = 6354720639) MV Peak A Satya (test 1.53 m/s code = 4907750541) MV valve area p 1/2 2.35 cm2 method (test code = 6979288354) MV Peak E Satya (test 0.87 m/s code = 1151102480) MV stenosis pressure 93.76 ms 1/2 time (test code = 2206018746) LVOT stroke volume 0.76 cm3 (test code = 2613584086) AV LVOT peak gradient 7.49 mmHg (test code = 7901445417) RVSP (test code = 31.04 mmHg 1715558190) MV mean gradient 2.81 mmHg (test code = 6189398274) LV SYS VOL (test code 28.32 ml = 3963885297) LV AUGUST VOL (test 62.47 ml code = 9902825522) LA area s A4C (test 14.57 cm2 code = 4730434672) LV SI Teich 2D (test 22.46 ml/m2 code = 3103139105) LV SV Teich 2D (test 34.15 ml code = 8452351119) LV Vol s Teich PSAX 28.32 ml (test code = 6793400718) LVOT SI (test code = 49.71 ml/m2 4281329471) MR peak grad (test 9.72 mmHg code = 1896311318) MV Vmax (test code = 1.56 m 0336652837) MV VTI Tips (test 0.48 m code = 6650702369) BSA [place] (test 1.54 m2 code = 0779390760) AoV Cusp sep (test 1.84 code = 9232095673) AoV Vmn (test code = 1.14 0365721949) IVS s 2D (test code = 1.45 3261179035) LV FS Teich 2D (test 27.83 code = 4639856488) MV AE ratio (test 1.76 code = 4450992809) AR slope (test code = 1.28 7535185106) Ar Vmax (test code = 3.76 7646682281) LA Ao Ratio Mmode 1.48 (test code = 6890702387) LV FS Cube 2D (test 27.83 code = 9374876781) LVOT Vmn (test code = 0.96 5102078979) Pt Size (test code = 154.94 2154151762) Pt Wt (test code = 54.43 5961563146) Ao root annulus (test 2.73 cm code = 5562698422) PV AT (test code = 79.92 msec 4871577034) Aov area Vmn (test 2.00 cm2 code = 1150688297) LVOT mean grad (test 4.17 mmHg code = 5385665477) AoV area I VMN bsa 1.32 cm2/m2 (test code = 6166505324) AR DT (test code = 2932.25 msec 1167587880) AR pk grad (test code 50.24 mmHg = 5556286714) IVS pct thck PLAX 32.63 % (test code = 0530773898) LV SI Cube 2D (test 22.76 ml/m2 code = 8050254291) LV SV Cube 2D (test 34.61 ml code = 7994691873) LV vol d cube 2D 55.45 ml (test code = 9446126701) LV vol s cube 2D 20.85 ml (test code = 7393008242) LVPW pct thck PLAX 50.70 % (test code = 9015350185) LVPW s PLAX (test 1.37 cm code = 9301478218) MV Decel slope (test 2.68 m/s2 code = 4347433332) LA Vol MOD A4C (test 30.78 ml code = 7378391003) Velocity Ratio 0.70 m/s (V1/V2) (test code = 4689) EF (test code = 54.67 % 6357267395) E/A ratio (test code 0.57 = 2846616189) LV Systolic Volume 15.68 mL/m2 Index (test code = 6817259792) LV Diastolic Volume 39.55 mL/m2 Index (test code = 4804859963) LVOT VTI (CM) (test 31.00 cm code = 8187144611) AMIRA (test code = AMIRA) Left ventricular [...] Normal LV filling pressure.AortaAortic root is normal. [facility] RNA [Presence] in Respiratory specimen by FROYLAN with probe [id number] 21:15:26 Test Item Value Reference Range Interpretation Comments SARS-CoV-2 (COVID-19) RNA Not detected [Presence] in Respiratory specimen by FROYLAN with probe detection (test code = 53442-7) Whether patient is employed in a Unknown healthcare setting (test code = 22827-0) Whether the patient has symptoms Unknown related to condition of interest (test code = 95360-2) Whether the patient was Unknown hospitalized for condition of interest (test code = 57224-0) Whether the patient was admitted Unknown to intensive care unit (ICU) for condition of interest (test code = 92460-5) Whether patient resides in a Unknown congregate care setting (test code = 78363-0) status (test code = Unknown 86964-1) Date and time of symptom onset Unknown (test code = 38612-1) [facility] [id number] 22:24:00 Test Item Value Reference Range Interpretation [...] calculated (test <100 Desira ble code = 42040-9) range <100 m g/dL for primary prevention; <70 mg/dL for patients with C HD or diabetic patients with > or = 2 CHD risk factors. LDL-C is now calculated using the Franklin-Randi calculation, which is a validated novel method providin g better accuracy than the Friedewald equation in the estimation of LDL-C. Franklin S S et al. NIRAJ. 2013;310(19): 8212-4069 (http://educati on .There CorporationDiagnosti Story [employer] .com/faq/HIK634 ) Cholesterol/HDL See_Comment [Automated ratio (test code = message] The 9830-1) system which generated this result transmitted reference range : <5.0 (calc). Th e reference range was not used to interpret this result as normal/abnormal . Non-HDL cholesterol See_Comment For phylicia ents with (test code = diabetes plus 1 36294-3) major ASCVD ris k factor, treatin g [...] RAC) Organization Information: Site ID: RGA Name: [employer] Lab Address: [address] [place] [phone] Director: Jake Guillen Lab Interpretation Abnormal (test code = 41584-1) [facility] Center[facility] [id number] 22:24:00 Test Item Value Reference Range Interpretation Comments Amylase (test code = 45 U/L 21-101 1798-8) AMIRA (test code = FASTING:UNKNOWN FASTING: AMIRA) UNKNOWN RAC (test code = Performing Organization RAC) Information: Site ID: JOVI [facility] Address: [address] [place] [phone] Director: Jake Guillen [facility] CenterHemoglobin [id number] 22:24:00 Test Item Value Reference Interpretation Comments [...] for children. [Automated mess age] The system [employer] generated this result transmit [place] reference range : <5.7 % of total Hgb. The refere nce range was not u sed to interpret th is result as normal/abnormal . AMIRA (test code = FASTING:UNKNOWN AMIRA) FASTING: UNKNOWN RAC (test code = Performing RAC) Organization Information: Site ID: JOVI [facility] Address: [address] [place] [phone] Director: Jake Guillen Lab Interpretation Abnormal (test code = 23972-8) [facility] CenterLipase [id number] 22:24:00 Test Item Value Reference Range Interpretation Comments Lipase (test code = 47 U/L 7-60 3040-3) AMIRA (test code = FASTING:UNKNOWN FASTING: AMIRA) UNKNOWN RAC (test code = Performing Organization RAC) Information: Site ID: JOVI [facility] Address: [address] [place] [phone] Director: Jake L WilmerFlower HospitalVitamin D 25 hydroxy [id number] 22:24:00 Test Item Value Reference Range Interpretation Comments Vitamin D, 36 ng/mL 30-100 Vitamin D Statu s 25-hydroxy (test 25-OH Vitam in D: code = 1989-) Deficiency: < 20 ng/mLInsufficie ncy : 20 [...] please refer to http://educatio n.Q uestDiagnostics .co m/faq/XVC172 (T his link is being provided for informational/e marissa ational purpose s only.) AMIRA (test code = FASTING:UNKNOWN AMIRA) FASTING: UNKNOWN RAC (test code = Performing RAC) Organization Information: Site ID: RGA [facility] Address: [address] [place] [phone] Director: Jake SantamariaFlower HospitalMicroalbumin / creatinine urine [id number] 22:24:00 Test Item Value Reference Interpretation Comments Range Creatinine, urine 68 mg/dL 20-275 (mg/dL) (test code = 2161-8) Microalbumin, urine 40.5 mg/dL See Note: Referenc e Range: (test code = Reference Range Not 96503-5) established Res ults verified by rep eat [...] RAC) Organization Information: Site ID: RGA Name: [employer] [facility] Lab Address: [address] [place] [phone] Director: Jake Guillen Lab Interpretation Abnormal (test code = 21769-3) [facility] CenterLipid [id number] 22:24:00 Test Item Value Reference Range Interpretation [...] calculated (test <100 Desira ble code = 15140-6) range <100 m g/dL for primary prevention; <70 mg/dL for patients with C HD or diabetic patients with > or = 2 CHD risk factors. LDL-C is now calculated using the Franklin-Randi calculation, which is a validated novel method piterin g better accuracy than the Friedewald equation in the estimation of LDL-C. Franklin S S et al. NIRAJ. 2013;310(19): 1986-2666 (http://educati on .There CorporationDiagnosti Story To [employer] .com/faq/POU651 ) Cholesterol/HDL See_Comment [Automated ratio (test code = message] The 9830-1) system which generated this result transmitted reference range : <5.0 (calc). Th e reference range was not used to interpret this result as normal/abnormal . Non-HDL cholesterol See_Comment For phylicia ents with (test code = diabetes plus 1 87481-4) major ASCVD ris k factor, treatin g [...] RAC) Organization Information: Site ID: RGA [facility]: [facility] Address: [address] [place] [address] Director: Jake Guillen Lab Interpretation Abnormal (test code = 76677-2) [facility] CenterAmylase [id number] 22:24:00 Test Item Value Reference Range Interpretation Comments Amylase (test code = 45 U/L 101 1798-8) AMIRA (test code = FASTING:UNKNOWN FASTING: AMIRA) UNKNOWN RAC (test code = Performing Organization RAC) Information: Site ID: RGA [facility] Address: [address] [place] [address] Director: Jake Guillen [facility] CenterHemoglobin [id number] 22:24:00 Test Item Value Reference Interpretation Comments [...] children. [Automated mess age] The system [employer] generated this result transmit [place] reference range : <5.7 % of total Hgb. The refere nce range was not u sed to interpret th is result as normal/abnormal . AMIRA (test code = FASTING:UNKNOWN AMIRA) FASTING: UNKNOWN RAC (test code = Performing RAC) Organization Information: Site ID: A [facility]: [facility] Address: [address] [place] [phone] Director: Jake Guillen Lab Interpretation Abnormal (test code = 25893-2) [facility] CenterLipase [id number] 22:24:00 Test Item Value Reference Range Interpretation Comments Lipase (test code = 47 U/L 7-60 3040-3) AMIRA (test code = FASTING:UNKNOWN FASTING: AMIRA) UNKNOWN RAC (test code = Performing Organization RAC) Information: Site ID: A [facility]: [facility] Address: [address] [place] [phone] Director: Jake Abhishek WilmerSelect Medical [facility], Edwin ShawVitamin D 25 hydroxy [id number] 22:24:00 Test Item Value Reference Range Interpretation Comments Vitamin D, 36 ng/mL 30-100 Vitamin D Statu s 25-hydroxy (test 25-OH Vitam in D: code = 1988-09) Deficiency: < 20 ng/mLInsufficie ncy : 20 [...] please refer to http://educatio n.Q uestDiagnostics .co m/faq/MHZ414 (T his link is being provided for informational/e marissa ational purpose s only.) AMIRA (test code = FASTING:UNKNOWN AMIRA) FASTING: UNKNOWN RAC (test code = Performing RAC) Organization Information: Site ID: A [facility]: [facility] Address: [address] [place] [phone] Director: Jake RiggsBaylor Scott & [facility] PointeMicroalbumin / creatinine urine [id number] 22:24:00 Test Item Value Reference Interpretation Comments Range Creatinine, urine 68 mg/dL 20-275 (mg/dL) (test code = 2161-8) Microalbumin, urine 40.5 mg/dL See Note: Referenc e Range: (test code = Reference Range Not 42943-4) established Res ults verified by rep eat [...] RAC) Organization Information: Site ID: RGA [facility]: [facility] Address: [address] [place] [phone] Director: Jake Guillen Lab Interpretation Abnormal (test code = 75775-0) [facility] CenterLipid [id number] 22:24:00 Test Item Value Reference Range Interpretation [...] calculated (test <100 Desira ble code = 48066-1) range <100 m g/dL for primary prevention; <70 mg/dL for patients with C HD or diabetic patients with > or = 2 CHD risk factors. LDL-C is now calculated using the Myranda calculation, which is a validated novel method providin g better accuracy than the Friedewald equation in the estimation of LDL-C. Franklin Worthington S et al. NIRAJ. 2013;310(19): 2861-6615 (http://educati on .[employer] .com/faq/FCE089 ) Cholesterol/HDL See_Comment [Automated ratio (test code = message] The 9830-1) system which generated this result transmitted reference range : <5.0 (calc). Th e reference range was not used to interpret this result as normal/abnormal . Non-HDL cholesterol See_Comment For phylicia ents with (test code = diabetes plus 1 25016-4) major ASCVD ris k factor, treatin g [...] = Performing RAC) Organization Information: Site ID: [facility] Name: [facility] Address: [address] [place] [phone] Director: Jake Guillen Lab Interpretation Abnormal (test code = 17705-7) [facility] CenterAmylase [id number] 22:24:00 Test Item Value Reference Range Interpretation Comments Amylase (test code = 45 U/L 1798-8) AMIRA (test code = FASTING:UNKNOWN FASTING: AMIRA) UNKNOWN RAC (test code = Performing Organization RAC) Information: Site ID: [facility] Name: [facility] Address: [address] [place] [phone] Director: Jake Guillen [facility] CenterHemoglobin [id number] 22:24:00 Test Item Value Reference Interpretation Comments [...] for children. [Automated mess age] The system [employer] generated this result transmit [place] reference range : <5.7 % of total Hgb. The refere nce range was not u sed to interpret th is result as normal/abnormal . AMIRA (test code = FASTING:UNKNOWN AMIRA) FASTING: UNKNOWN RAC (test code = Performing RAC) Organization Information: Site ID: RGA [facility] Address: [address] [place] [address] Director: Jake Guillen Lab Interpretation Abnormal (test code = 55343-8) [facility] CenterLipase [id number] 22:24:00 Test Item Value Reference Range Interpretation Comments Lipase (test code = 47 U/L 760 3040-3) AMIRA (test code = FASTING:UNKNOWN FASTING: AMIRA) UNKNOWN RAC (test code = Performing Organization RAC) Information: Site ID: RGA [facility]: [facility] Address: [address] [place] [address] Director: Jake Guillen [facility] CenterVitamin D 25 hydroxy [id number] 22:24:00 Test Item Value Reference Range Interpretation Comments Vitamin D, 36 ng/mL 30-100 Vitamin D Statu s 25-hydroxy (test 25-OH Vitam in D: code = 1989-3) Deficiency: <20 ng/mLInsufficie ncy : 20 - 29 ng/mLOptimal: [...] please refer to [email or web address]://educatio n.Q [email or web address] .co m/faq/[email or web address] (T his link is being provided for informational/e marissa ational purpose s only.) AMIRA (test code = FASTING:UNKNOWN AMIRA) FASTING: UNKNOWN RAC (test code = Performing RAC) Organization Information: Site ID: [id number] [facility] Address: [address] [place] [id number] Director: Jake Guillen [facility] urine [id number] 22:24:00 Test Item Value Reference Interpretation Comments Range Creatinine, urine 68 mg/dL 20-275 (mg/dL) (test code = 2161-8) Microalbumin, urine 40.5 mg/dL See Note: Referenc e Range: (test code = Reference Range Not 34597-8) established Res ults verified by rep eat [...] RAC) Organization Information: Site ID: [id number] [facility]: [facility] Address: [address] [place] [phone] Director: Jake Guillen Lab Interpretation Abnormal (test code = 43745-8) [facility] [id number] 17:26:55 Test Item Value Reference Range Interpretation Comments POC glucose (test code 367 mg/dL 65-99 HH Opera tor Name: Chaim = [id number]) Jorge ID : [id number] Lab Interpretation Abnormal (test code = 12494-0) Bob CortezARS-CoV-2 (COVID-19) RNA [Presence] in Respiratory specimen by FROYLAN with probe [id number] 04:09:00 Test Item Value Reference Range Interpretation Comments SARS-CoV-2 (COVID-19) RNA Not detected Not-Detected [Presence] in Respiratory specimen by FROYLAN with probe detection (test code = 97172-1) Whether patient is employed in a healthcare setting (test code = 20598-5) Whether the patient has symptoms related to condition of interest (test code = 28128-4) Patient was hospitalized because of this condition (test code = 27493-2) Whether the patient was admitted to intensive care unit (ICU) for condition of interest (test code = 31935-9) Whether patient resides in a congregate care setting (test code = 95425-5) [facility] [id number] 05:57:42 Test Item Value Reference Range Interpretation Comments Urine culture (test SEE COMMENT Bacteriu polo screen code = 8450864) negative. Yazidi ShbpxaqsMGGD-HaI-1 (COVID-19) RNA [Presence] in Respiratory specimen by FROYLAN with probe [id number] 18:33:15 Test Item Value Reference Range Interpretation Comments SARS-CoV-2 (COVID-19) RNA Not detected Not-Detected [Presence] in Respiratory specimen by FROYLAN with probe detection (test code = 98605-5) Whether patient is employed in a healthcare setting (test code = 14417-9) Whether the patient has symptoms related to condition of interest (test code = 49341-2) Patient was hospitalized because of this condition (test code = 79654-8) Whether the patient was admitted to intensive care unit (ICU) for condition of interest (test code = 05596-2) Whether patient resides in a congregate care setting (test code = 79766-4) BROOK BOB Barnhart [id number] 18:15:13 Test Item Value Reference Range Interpretation Comments Fungus culture No growth Specimen isolate (test after 4 weeks InformationSp ecimen code = 1441) of Source: SinusSp ecimen incubation. Site: Nose Yazidi Mae An Junior2021-02-24 18:12:52 Test Item Value Reference Range Interpretation Comments SUPPLIER NAME (test XMED Oxygen and code = 6415) Medical SUPPLIER PHONE (test [phone] code = 6416) ORDER STATUS (test code Delivery Successful = 6417) DELIVERY NOTE (test code = 6419) REQUESTED DELIVEY DATE 09/22/2020 (test code = 6420) ITEM DESCRIPTION (test Wheeled Walker, Mauro Qty: 1 code = 6423) EXPECTED DELIVERY DATE 09/24/2020 (test code = 6421) ACTUAL DELIVERY DATE 09/24/2020 (test code = 6422) [facility] 12 [id number] 23:54:03 Test Item Value Reference Range Interpretation Comments Ventricular rate (test code = 253) Atrial rate (test code = 255) MO interval (test code = 266) QRSD interval [...] of 30-AUG-2020 14:17,-Questionable change in QRS axis- Bob Feldman-CoV-2 (COVID-19) RNA [Presence] in Respiratory specimen by FROYLAN with probe [id number] 19:48:29 Test Item Value Reference Range Interpretation Comments SARS-CoV-2 (COVID-19) RNA Not detected Not-Detected [Presence] in Respiratory specimen by FROYLAN with probe detection (test code = 89014-5) BROOK BOB [facility] [id number] 15:06:25 Test Item Value Reference Range Interpretation Comments Anaerobic No anaerobic Specimen culture isolate organisms InformationS pecimen (test code = isolated. Source: SinusSp ecimen 552) Site: [facility]idi [facility] [id number] 13:51:27 Test Item Value Reference Range Interpretation Comments Fungus smear No fungi Specimen (test code = observed. InformationSpec imen Source: 1443) SinusSpecimen S ite: Tyler CortezARS-CoV-2 (COVID-19) IgG+IgM Ab [Presence] in Serum or Plasma by [id number] 06:21:00 Test Item Value Reference Range Interpretation Comments SARS-CoV-2 (COVID-19) IgG+IgM Ab Positive [Presence] in Serum or Plasma by Immunoassay (test code = 32351-1) TRISHA BROCKSARS-CoV-2 (COVID-19) RNA [Presence] in Respiratory specimen by FROYLAN with probe [id number] 12:03:17 Test Item Value Reference Range Interpretation Comments SARS-CoV-2 (COVID-19) RNA [Presence] Detected Not-Detected in Respiratory specimen by FROYLAN with probe detection (test code = 87566-6) TRISHA BROCKTISSUE [id number] 16:45:00 Test Item Value Reference Range Interpretation Comments LAB AP CPT CODE (BEAKER) (test code = 51544 2749) TACROLIMUS [id number] 09:09:00 Test Item Value Reference Range Interpretation Comments TACROLIMUS BLOOD (BEAKER) (test 6.8 ng/mL 10.0-20.0 L code = 657) POCT-GLUCOSE [id number] 07:33:00 Test Item Value Reference Range Interpretation Comments POC-GLUCOSE METER 138 mg/dL 70-110 H TESTED AT [facility] 6720 [facility] (test code = [place] 1538) [address] BASIC METABOLIC [id number] 05:08:00 Test Item Value Reference Range Interpretation [...] PATIEN TS. CBC W/PLT COUNT & AUTO [id number] 04:51:00 Test Item Value Reference Range Interpretation [...] EOSINOPHILS ABSOLUTE COUNT 0.02 K/ L 0.00-0.50 ([facility]) (test code = 416) BASOPHILS ABSOLUTE COUNT ([facility]) 0.00 K/ L 0.00-0.20 (test code = 417) 0.00POCT-GLUCOSE [id number] 01:09:00 Test Item Value Reference Range Interpretation Comments POC-GLUCOSE METER 97 mg/dL 70-110 TESTED AT [place] [address] ([facility]) (test code = [place] [facility] [address]) POCT-GLUCOSE [id number] 21:30:00 Test Item Value Reference Range Interpretation Comments POC-GLUCOSE METER 424 mg/dL 70-110 HH Notified R Naomi PILLAI/TESTED ([facility]) (test code = AT [address] 1538) [facility] [address] POCT-GLUCOSE [id number] 17:04:00 Test Item Value Reference Range Interpretation Comments POC-GLUCOSE METER 198 mg/dL 70-110 H TESTED AT [place] [address] ([facility]) (test code = [place] [facility] 1538) [address] POCT-GLUCOSE [id number] 12:51:00 Test Item Value Reference Range Interpretation Comments POC-GLUCOSE METER 205 mg/dL 70-110 H TESTED AT [place] [address] ([facility]) (test code = [place] [facility] 1538) [address] TACROLIMUS [id number] 12:35:00 Test Item Value Reference Range Interpretation Comments TACROLIMUS BLOOD ([facility]) (test 5.9 ng/mL 10.0-20.0 L code = 657) POCT-GLUCOSE [id number] 08:32:00 Test Item Value Reference Range Interpretation Comments POC-GLUCOSE METER 60 mg/dL 70-110 L TESTED AT [place] [address] ([facility]) (test code = [place] [facility] [address]) POCT-GLUCOSE [id number] 21:41:00 Test Item Value Reference Range Interpretation Comments POC-GLUCOSE METER 202 mg/dL 70-110 H TESTED AT [place] [address] ([facility]) (test code = [place] [facility] 1538) [address] POCT-GLUCOSE [id number] 17:36:00 Test Item Value Reference Range Interpretation Comments POC-GLUCOSE METER 191 mg/dL 70-110 H TESTED AT [place] [address] ([facility]) (test code = [place] [facility] 1538) [address] POCT-GLUCOSE [id number] 11:01:00 Test Item Value Reference Range Interpretation Comments POC-GLUCOSE METER 232 mg/dL 70-110 H TESTED AT [place] [address] ([facility]) (test code = [employer] [facility] Kory [facility] 1538) [address] TACROLIMUS [id number] 10:16:00 Test Item Value Reference Range Interpretation Comments TACROLIMUS BLOOD (BEAKER) (test 8.3 ng/mL 10.0-20.0 L code = 657) POCT-GLUCOSE [id number] 08:16:00 Test Item Value Reference Range Interpretation Comments POC-GLUCOSE METER 366 mg/dL 70-110 H TESTED AT [place] [address] ([facility]) (test code = [facility] Kory [facility] 1538) [address] BASIC METABOLIC [id number] 06:57:00 Test Item Value Reference Range Interpretation [...] APPLICABLE FOR DIALYSIS PATIEN TS. HEMOGLOBIN AND [id number] 06:40:00 Test Item Value Reference Range Interpretation Comments HEMOGLOBIN (BEAKER) (test code = 11.4 GM/DL 12.0-15.0 L 410) HEMATOCRIT (BEAKER) (test code = 36.1 % 36.0-45.0 411) POCT-GLUCOSE [id number] 23:30:00 Test Item Value Reference Range Interpretation Comments POC-GLUCOSE METER 274 mg/dL 70-110 H TESTED AT [facility] 6720 (BEAKER) (test code = [place] 1538) [address] BASIC METABOLIC [id number] 18:49:00 Test Item Value Reference Range Interpretation [...] APPLICABLE FOR DIALYSIS PATIEN TS. HEMOGLOBIN AND [id number] 18:35:00 Test Item Value Reference Range Interpretation Comments HEMOGLOBIN (BEAKER) (test code = 11.5 GM/DL 12.0-15.0 L 410) HEMATOCRIT (BEAKER) (test code = 35.6 % 36.0-45.0 L 411) BASIC METABOLIC [id number] 12:08:00 Test Item Value Reference Range Interpretation [...] 0-0 (BEAKER) (test code = 413) 0.00POTASSIUM-STAT [id number] 11:43:00 Test Item Value Reference Range Interpretation Comments POTASSIUM (BEAKER) (test code = 4.3 meq/L 3.6-5.5 379) POCT-GLUCOSE [id number] 11:34:00 Test Item Value Reference Range Interpretation Comments POC-GLUCOSE METER 82 mg/dL 70-110 TESTED AT [facility] 6720 (BEAKER) (test code = [place] [id number] 4113) URINE [id number] 11:19:00 Test Item Value Reference Range Interpretation Comments CULTURE (BEAKER) (test 20-29,000 col/mL skin code = 1095) tea URINALYSIS W/ [id number] 15:16:00 Test Item Value Reference Range Interpretation [...] = 2795) CBC W/PLT COUNT & AUTO [id number] 14:56:00 Test Item Value Reference Range Interpretation [...] 0.00-0.20 (test code = 417) 0.00BASI METABOLIC [id number] 14:55:00 Test Item Value Reference Range Interpretation [...] S NOT APPLICABLE FOR DIALYSIS PATIEN TS. [id number] 14:51:00 Test Item Value Reference Range Interpretation Comments PARTIAL THROMBOPLASTIN TIME 30.7 seconds 22.5-36.0 (BEAKER) (test code = 760) PROTHROMBIN TIME/[id number] 14:50:00 Test Item Value Reference Range Interpretation Comments PROTIME (BEAKER) (test code = 14.3 seconds 11.7-14.7 759) INR (BEAKER) (test code = 370) 1.1 <=5.9 RECOMMENDED COUMADIN/WARFARIN INR THERAPY RANGESSTANDARD DOSE: 2.0 - 3.0 Includes: PROPHYLAXIS for venous thrombosis, systemic embolization; TREATMENT for venous thrombosis and/or pulmonary embolus.HIGH RISK: Target INR is 2.5-3.5 for patients with mechanical heart valves. Notes Date/Time Note Provider Source 2022-05-11 23:00:00-00:00 [id number] [place] [address] PATIENT NAME: PAOLA MISHRA ADMIT DATE: ACCOUNT NO: [id number] ROOM NO: G.[id number] AGE: 66 REPORT TYPE: DISCHARGE SUMMARY SEX: F ADMITTING PHYSICIAN:Marcella Stewart MD ATTENDING PHYSICIAN:Marcella Stewart MD ADMISSION DATE: 04/23/2022 14:11:00 DISCHARGE DATE: 04/30/2022 16:35:00 DISCHARGE DIAGNOSES: 1. AV fistula malfunction. 2. Influenza. 3. Volume overload. 4. End-stage renal disease. 5. Right foot ulcer. HOSPITAL COURSE: This is an elderly female with end-stage renal disease, admitted with fever, treated for influenza. The patient has an AV fistula malfunction. Vascular surgery evaluated. The pat ient had a pacer placed. Dialysis continued, clinically improved. Dischar ged home in stable condition. DISCHARGE CONDITION: Stable. ACTIVITIES: As tolerated. DIET: Renal diet. FOLLOWUP: Follow up with primary care physician. DISCHARGE PHYSICAL EXAMINATION: Documented in [facility] chart. Dictated By: Marcella Stewart MD Date Dictated: 05/11/2022 23:00:01 Date Transcribed: 05/12/2022 01:51:24 /[facility] Receipt ID: [id number] Authenticated by Marcella Stewart MD On 05/12/2022 08:29:33 PM at 0829 PATIENT NAME: PAOLA MISHRA ACCOUNT #: [id number] 2022-04-30 14:12:00-00:00 [facility] REPORT#:[id number] REPORT STATUS: Signed DATE:04/30/22 TIME: 1412 PATIENT: PAOLA MISHRA UNIT #: [id number] ROOM/BED: [place] [address] : 57 AGE: 66 SEX: F ATTEND: Marcella Escobar MD ADM AUTHOR: Marcella Stewart MD * ALL edits or amendments must be made on the [employer] document * Subjective Chief complaint: Feeling okay No distress Getting hemodialysis Tesio catheter placed yesterday Review of Systems All systems rev neg: except as marked Objective General VS/I O: Vital Signs Date Temp Pulse Resp B/P B/P Mean Pulse Ox FiO2 04/29-04/30 97.1-98.8 70-78 14-18 104-157/53-75 0.0-90.4 96-100 Last Documented: Result Date Time B/P 149/72 04/30 1115 Temp 98.2 04/30 1115 Pulse 73 04/30 1115 Resp 18 04/30 1115 Pulse Ox 96 04/30 1111 B/P Mean 0.0 04/30 1111 O2 Delivery Room air 04/30 1111 O2 Flow Rate 6 04/30 0845 24 hour I O ending at 0700: 04/30 0700 04/29 1900 Intake Total 250 Output Total Balance 250 Intake, Oral 250 PATIENT WEIGHT: Weight (lb): Weight (oz): Weight (kg): 54.545 Medications: Active Meds + DC'd Last 24 Hrs Vancomycin HCl (VANCOMYCIN HCL) 500 MG ONCE ONE IV Sodium Chloride (SODIUM CHLORIDE 0.9% 100 ML) 1 00 ML Calcium Acetate (CALCIUM ACETATE) 667 MG C MEALS PO Cefazolin Sodium (KEFZOL OR ANCEF) 0 .STK-MED ON E .ROUTE (DC) Lidocaine HCl (XYLOCAINE MPF 1% 5ML) 0 .STK-MED ONE .ROUTE (DC) Heparin Sodium (HEPARIN SODIUM) 0 .STK-MED ONE . ROUTE (DC) Dexamethasone Sodium Phosphate (DECADRON) 0 .STK -MED ONE .ROUTE (DC) Lidocaine HCl (XYLOCAINE) 0 .STK-MED ONE .ROUTE (DC) Ondansetron HCl (ZOFRAN) 0 .STK-MED ONE .ROUTE ( DC) Heparin Sodium (HEPARIN SODIUM) 0 .STK-MED ONE . ROUTE (DC) Fentanyl Citrate (SUBLIMAZE) 100 MCG PACU Q10MIN PRN PRN IV (DC) Fentanyl Citrate (SUBLIMAZE) 50 MCG PACU Q10MIN PRN PRN IV (DC) Hydralazine HCl (APRESOLINE) 5 MG PACU Q10MIN P RN PRN IV (DC) Hydrocodone Bitart/Acetaminophen (NORCO 5/325) 1 TAB PACU ONCE PO (DC) Hydromorphone HCl (DILAUDID) 1 MG PACU Q10MIN MO N PRN IV (DC) Hydromorphone HCl (DILAUDID) 0.5 MG PACU Q5MIN P RN PRN IV (DC) Insulin Human Lispro (HUMALOG) 0 PACU ONCE PRN S UBQ (DC) Labetalol HCl (LABETALOL HCL) 5 MG PACU Q10MIN P RN PRN IV (DC) Meperidine HCl (DEMEROL 50MG/ML) 12.5 MG PACU ON CE PRN IV (DC) Morphine Sulfate (morphine SULFATE) 2 MG PACU Q1 0MIN PRN PRN IV (DC) Ondansetron HCl (ZOFRAN) 4 MG PACU ONCE PRN IV ( DC) Promethazine HCl (PHENERGAN) 25 MG PACU ONCE PRN PO (DC) Ropivacaine (NAROPIN 0.5% 150 MG/30mL) 150 MG DIR PRN LOCAL (DC) Tramadol HCl (ULTRAM) 50 MG PACU ONCE PO (DC) Fentanyl Citrate (SUBLIMAZE) 0 .STK-MED ONE .ROU TE (DC) Midazolam HCl (VERSED) 0 .STK-MED ONE .ROUTE (D C) Propofol (DIPRIVAN 200MG/20ML INJECTION) 20 ML . STK-MED ONE IV (DC) Clopidogrel Bisulfate (Plavix) 75 MG DAILY PO Dextrose/Water (DEXTROSE 10% IN WATER) 125 ML DIR PRN IV (CKD) Dextrose/Water (DEXTROSE 10% IN WATER) 250 ML DIR PRN IV (CKD) Glucagon (GLUCAGON) 1 MG ASDIR PRN IM Acetaminophen (TYLENOL EXTRA STRENGTH) 1,000 MG PREOP ONCALL PO (CKD) Gabapentin (NEURONTIN) 200 MG PREOP ONCALL PO (C KD) Oseltamivir Phosphate (TAMIFLU) 30 MG MOWEFR PO Cefepime HCl (MAXIPIME) 1 GM Q24H IV Sodium Chloride (SODIUM CHLORIDE) 10 ML Miscellaneous Information (VANCOMYCIN PHARMACY T O DOSE) 1 EACH ASDIR IV (CKD) Silver Sulfadiazine (SILVADENE 1% 50 GM CREAM) 1 APPLIC AC BK TOPICAL Insulin Human Lispro (HUMALOG) 0 AC HS SUBQ Amlodipine Besylate (NORVASC) 10 MG DAILY PO Cholecalciferol (VITAMIN D) 2,000 INTL.UNITS CARMENZA LY PO (CKD) Gabapentin (NEURONTIN) 100 MG DAILY PO Pantoprazole (PROTONIX) 40 MG DAILY PO Atorvastatin Calcium (LIPITOR) 20 MG BEDTIME PO Tacrolimus (PROGRAF) 1 MG BID PO Albumin Human (ALBUMINAR-25%) 12.5 GM ASDIR PRN IV Heparin Sodium (Porcine) (HEPARIN SODIUM) 3,000 UNIT ASDIR PRN DIALYSIS Lidocaine HCl (LIDOCAINE HCL/PF) 0.5 ML ASDIR MO N I-DERMAL (CKD) Mannitol (MANNITOL 25% 12.5GM/50ML) 12.5 GM ASDI R PRN IV Sodium Chloride (SODIUM CHLORIDE 0.9%) 2,000 ML ASDIR PRN IV Sodium Chloride (SODIUM CHLORIDE) 5 ML ASDIR PRN IV Sodium Chloride (SODIUM CHLORIDE) 10 ML ASDIR MO N IV Sodium Chloride (SODIUM CHLORIDE 0.9%) 250 ML DIR PRN IV Acetaminophen (TYLENOL) 650 MG Q4H PRN PRN PO Clonidine HCl (CATAPRES) 0.1 MG TID PRN PO Docusate Sodium (COLACE) 100 MG BID PRN PRN PO Hydralazine HCl (APRESOLINE) 10 MG Q6H PRN PRN I V Zolpidem Tartrate (AMBIEN) 5 MG BEDTIME PRN PRN PO Physical Exam General appearance: alert, awake, oriented Head/eyes: atraumatic, EOMI, normal conjunctiva/ sclera ENT: moist mucosal membranes Neck: full range of motion, non-tender Cardiovascular: normal capillary refill, normal heart sounds, regular rate rhythm Respiratory: aerating well, clear to auscultatio n Abdomen: soft Musculoskeletal: full range of motion Neuro/VACATION GUIDE: alert, oriented X 3 Results Findings/Data: Laboratory Tests 04/30/22 0600: [Embedded Image Not Available] Laboratory Tests 04/30 04/30 04/30 04/30 04/29 1111 0843 0707 0600 1549 Chemistry Sodium (134 - 147 mEq/L) 135 Potassium (3.4 - 5.0 mEq/L) 4.4 Chloride (100 - 108 mEq/L) 96 L Carbon Dioxide (21 - 33 mEq/l) 24 Anion Gap (0 - 20) 19 BUN (7 - 18 mg/dL) 43 H Creatinine (0.6 - 1.3 mg/dL) 7.8 H Glomerular Filtr Rate (80 - 90) 5.2 L Glucose (70 - 110 mg/dL) 207 H POC Glucose (70 - 110 MG/DL) 307 H 233 H 228 H 200 H Calcium (8.0 - 10.5 mg/dL) 7.8 L Phosphorus (2.5 - 4.9 MG/DL) 5.4 H Magnesium (1.80 - 2.40 mg/dL) 2.09 Laboratory Tests 04/30 0600 Hematology WBC (4.5 - 11.0 x10 3/uL) 5.2 RBC (3.54 - 5.02 x10 6/uL) 4.76 Hgb (11.0 - 15.0 g/dL) 11.8 Hct (33.0 - 45.0 %) 39.5 MCV (81.0 - 99.0 fL) 83.0 MCH (27.0 - 33.0 pg) 24.8 L MCHC (33.0 - 37.0 g/dL) 29.9 L RDW (11.5 - 14.5 %) 17.6 H Plt Count (150 - 400 x10 3/uL) 263 MPV (7.0 - 9.0 fL) 10.9 H Neut % (Auto) (56.0 - 77.0 %) 59.3 Lymph % (Auto) (14.0 - 32.0 %) 27.3 [place] % (Auto) (4.8 - 9.0 %) 9.9 H Eos % (Auto) (0.3 - 3.7 %) 2.3 Baso % (Auto) (0.0 - 2.0 %) 0.6 Neut # (Auto) (2.0 - 7.6 x10 3/uL) 3.07 Lymph # (Auto) (1.0 - 3.8 x10 3/uL) 1.41 [place] # (Auto) (0.1 - 0.8 x10 3/uL) 0.51 Eos # (Auto) (0.0 - 0.2 x10 3/uL) 0.12 Baso # (Auto) (0.0 - 0.2 x10 3/uL) 0.03 Abs Immat Gran (auto) (0.00 - 0.03 x10 3/uL) 0 .03 Add Manual Diff NO Immature Gran % (0.0 - 2.0 %) 0.6 Nucleated RBC % (0 - 0 %) 0.0 Nucleated RBCs # (Man) (0.0 - 0.1 x10 3/uL) 0.0 0 Diagnosis, Assessment Plan Free Text DxA P Notes Free text DxA P notes: Fevers / influenza virus aVF malfunction Volume overload ESRD Right FOOT ulcer -Positive flu. Start Tamiflu?. Infectiou s disease consulted. As needed Tylenol -Dialysis catheter placed. Resume dialysis per n ephrology -Wound care per podiatry -replete elctrolytes -Blood sugars stable. SSI -Salt and fluid restriction. diurese if edema in creases. daily weights -prn zofran and antacids -allow diet -continue home BP meds. PRN hydralazine -prn stool softners -appreciate specialists help DVT prophylaxis with heparin/SCDs Tesio catheter was placed yesterday Discussed with infectious disease and vascular s urgeon Discharge home at 1414 RPT #:[id number] END OF REPORT 2022-04-30 11:14:00-00:00 [facility] ([facility]) Infectious Dis. Progress Note REPORT#:[id number] REPORT STATUS: Signed DATE:04/30/22 TIME: 1114 PATIENT: PAOLA MISHRA UNIT #: [id number] ROOM/BED: [place] [address] : 57 AGE: 66 SEX: F ATTEND: Marcella Escobar MD ADM AUTHOR: Kailey Contreras MD, MD * ALL edits or amendments must be made on the [employer] document * Subjective Chief complaint: Right heel gangrene HPI: The patient is a 66-year-old female wit h past medical history significant for hypertensio n, diabetes, end-stage renal disease, on dialysis on Tuesday, Tuesday and , admitted to [facility] with a clotted AV fistula. The patient also had reported right heel wound with purulent drainage and complai nt of right heel pain. On admission to the hospital, nephrology was consulted and the p atient was started on vancomycin, and Infectious D isease is consulted for evaluation of fever. At the time of my consultation, the patient is lying in bed, reports fevers and chills for last 24 hours. The patie nt reports that she has taken Moderna COVID vaccine with booster. She is not sure as to whether she has taken flu shot. Does report chills and body aches. Reports ri ght heel severe foul smelling drainage and pain. Patient reports: No: complaints. Review of Systems Constitutional: Denies: chills, fatigue. Skin: Denies: abrasion, bruising. Allergy/Immun: Denies: allergic reaction, anaphylaxis. Eyes: Denies: redness, visual loss/blurred. ENT: Denies: ear drainage, ear ringing. Respiratory: Denies: [place] (dyspnea on exertion), hemoptysis. Cardiovascular: Denies: chest pain, [place] (dyspnea on exertion). Objective General VS/I O: Vital Signs Date Temp Pulse Resp B/P B/P Mean Pulse Ox FiO2 04/29-04/30 97.1-98.8 70-78 14-18 104-157/53-75 0.0-90.4 96-100 Last Documented: Result Date Time Pulse Ox 96 04/30 1111 B/P 157/75 04/30 1111 B/P Mean 0.0 04/30 1111 O2 Delivery Room air 04/30 1111 Temp 98.2 04/30 1111 Pulse 78 04/30 1111 Resp 14 04/30 1111 O2 Flow Rate 6 04/30 0845 Vital Signs: Date Time Temp Pulse Resp B/P B/P Pulse O2 O2 F low FiO2 Mean Ox Delivery Rate 04/30 1111 98.2 78 14 157/75 0.0 96 Room air 04/30 0905 70 16 127/64 97 Room air 04/30 0900 97.2 70 16 136/63 97 Room air 04/30 0855 72 16 123/60 97 Room air 04/30 0850 72 16 123/59 97 Room air 04/30 0845 Simple 6 mask 04/30 0845 72 14 111/53 100 Room air 04/30 0840 97.1 70 14 104/54 100 Simple 5 mask 04/30 0708 97.7 72 14 124/74 90.4 99 Room air 04/30 0408 98.1 72 18 121/66 84.4 97 Room air 04/29 2311 98.8 78 18 135/64 87.4 97 Room air 04/29 2016 98.1 77 18 134/62 86.2 97 Room air 24 hour I O ending at 0700: 04/30 0700 04/29 1900 Intake Total 250 Output Total Balance 250 Intake, Oral 250 PATIENT WEIGHT: Weight (lb): Weight (oz): Weight (kg): 54.545 Medications: Active Meds + DC'd Last 24 Hrs Vancomycin HCl (VANCOMYCIN HCL) 500 MG ONCE ONE IV Sodium Chloride (SODIUM CHLORIDE 0.9% 100 ML) 1 00 ML Calcium Acetate (CALCIUM ACETATE) 667 MG C MEALS PO Cefazolin Sodium (KEFZOL OR ANCEF) 0 .STK-MED ON E .ROUTE (DC) Lidocaine HCl (XYLOCAINE MPF 1% 5ML) 0 .STK-MED ONE .ROUTE (DC) Heparin Sodium (HEPARIN SODIUM) 0 .STK-MED ONE . ROUTE (DC) Dexamethasone Sodium Phosphate (DECADRON) 0 .STK -MED ONE .ROUTE (DC) Lidocaine HCl (XYLOCAINE) 0 .STK-MED ONE .ROUTE (DC) Ondansetron HCl (ZOFRAN) 0 .STK-MED ONE .ROUTE ( DC) Heparin Sodium (HEPARIN SODIUM) 0 .STK-MED ONE . ROUTE (DC) Fentanyl Citrate (SUBLIMAZE) 100 MCG PACU Q10MIN PRN PRN IV (DC) Fentanyl Citrate (SUBLIMAZE) 50 MCG PACU Q10MIN PRN PRN IV (DC) Hydralazine HCl (APRESOLINE) 5 MG PACU Q10MIN MO N PRN IV (DC) Hydrocodone Bitart/Acetaminophen (NORCO 5/325) 1 TAB PACU ONCE PO (DC) Hydromorphone HCl (DILAUDID) 1 MG PACU Q10MIN MO N PRN IV (DC) Hydromorphone HCl (DILAUDID) 0.5 MG PACU Q5MIN P RN PRN IV (DC) Insulin Human Lispro (HUMALOG) 0 PACU ONCE PRN S UBQ (DC) Labetalol HCl (LABETALOL HCL) 5 MG PACU Q10MIN P RN PRN IV (DC) Meperidine HCl (DEMEROL 50MG/ML) 12.5 MG PACU ON CE PRN IV (DC) Morphine Sulfate (morphine SULFATE) 2 MG PACU Q1 0MIN PRN PRN IV (DC) Ondansetron HCl (ZOFRAN) 4 MG PACU ONCE PRN IV ( DC) Promethazine HCl (PHENERGAN) 25 MG PACU ONCE PRN PO (DC) Ropivacaine (NAROPIN 0.5% 150 MG/30mL) 150 MG DIR PRN LOCAL (DC) Tramadol HCl (ULTRAM) 50 MG PACU ONCE PO (DC) Fentanyl Citrate (SUBLIMAZE) 0 .STK-MED ONE .ROU TE (DC) Midazolam HCl (VERSED) 0 .STK-MED ONE .ROUTE (DC ) Propofol (DIPRIVAN 200MG/20ML INJECTION) 20 ML . STK-MED ONE IV (DC) Clopidogrel Bisulfate (Plavix) 75 MG DAILY PO Dextrose/Water (DEXTROSE 10% IN WATER) 125 ML DIR PRN IV (CKD) Dextrose/Water (DEXTROSE 10% IN WATER) 250 ML DIR PRN IV (CKD) Glucagon (GLUCAGON) 1 MG ASDIR PRN IM Acetaminophen (TYLENOL EXTRA STRENGTH) 1,000 MG PREOP ONCALL PO (CKD) Gabapentin (NEURONTIN) 200 MG PREOP ONCALL PO (C KD) Oseltamivir Phosphate (TAMIFLU) 30 MG MOWEFR PO Cefepime HCl (MAXIPIME) 1 GM Q24H IV Sodium Chloride (SODIUM CHLORIDE) 10 ML Miscellaneous Information (VANCOMYCIN PHARMACY T O DOSE) 1 EACH ASDIR IV (CKD) Silver Sulfadiazine (SILVADENE 1% 50 GM CREAM) 1 APPLIC AC BK TOPICAL Insulin Human Lispro (HUMALOG) 0 AC HS SUBQ Amlodipine Besylate (NORVASC) 10 MG DAILY PO Cholecalciferol (VITAMIN D) 2,000 INTL.UNITS CARMENZA LY PO (CKD) Gabapentin (NEURONTIN) 100 MG DAILY PO Pantoprazole (PROTONIX) 40 MG DAILY PO Atorvastatin Calcium (LIPITOR) 20 MG BEDTIME PO Tacrolimus (PROGRAF) 1 MG BID PO Albumin Human (ALBUMINAR-25%) 12.5 GM ASDIR PRN IV Heparin Sodium (Porcine) (HEPARIN SODIUM) 3,000 UNIT ASDIR PRN DIALYSIS Lidocaine HCl (LIDOCAINE HCL/PF) 0.5 ML ASDIR MO N I-DERMAL (CKD) Mannitol (MANNITOL 25% 12.5GM/50ML) 12.5 GM ASDI R PRN IV Sodium Chloride (SODIUM CHLORIDE 0.9%) 2,000 ML ASDIR PRN IV Sodium Chloride (SODIUM CHLORIDE) 5 ML ASDIR PRN IV Sodium Chloride (SODIUM CHLORIDE) 10 ML ASDIR MO N IV Sodium Chloride (SODIUM CHLORIDE 0.9%) 250 ML DIR PRN IV Acetaminophen (TYLENOL) 650 MG Q4H PRN PRN PO Clonidine HCl (CATAPRES) 0.1 MG TID PRN PO Docusate Sodium (COLACE) 100 MG BID PRN PRN PO Hydralazine HCl (APRESOLINE) 10 MG Q6H PRN PRN I V Zolpidem Tartrate (AMBIEN) 5 MG BEDTIME PRN PRN PO Physical Exam General appearance: no acute distress Head/Eyes: atraumatic, normocephalic Neck: non-tender, supple/no meningismus Cardiovascular: normal heart sounds, no murmur Respiratory: clear to auscultation, symmetric ex pansion Abdomen: non-tender, soft Extremities: no clubbing Skin: gangrene (R heel wet gangrene) Results Findings/Data: Laboratory Tests 04/30 04/30 04/30 04/29 0843 0707 0600 1549 Chemistry Sodium (134 - 147 mEq/L) 135 Potassium (3.4 - 5.0 mEq/L) 4.4 Chloride (100 - 108 mEq/L) 96 L Carbon Dioxide (21 - 33 mEq/l) 24 Anion Gap (0 - 20) 19 BUN (7 - 18 mg/dL) 43 H Creatinine (0.6 - 1.3 mg/dL) 7.8 H Glomerular Filtr Rate (80 - 90) 5.2 L Glucose (70 - 110 mg/dL) 207 H POC Glucose (70 - 110 MG/DL) 233 H 228 H 200 H Calcium (8.0 - 10.5 mg/dL) 7.8 L Phosphorus (2.5 - 4.9 MG/DL) 5.4 H Magnesium (1.80 - 2.40 mg/dL) 2.09 Laboratory Tests 04/30 0600 Hematology WBC (4.5 - 11.0 x10 3/uL) 5.2 RBC (3.54 - 5.02 x10 6/uL) 4.76 Hgb (11.0 - 15.0 g/dL) 11.8 Hct (33.0 - 45.0 %) 39.5 MCV (81.0 - 99.0 fL) 83.0 MCH (27.0 - 33.0 pg) 24.8 L MCHC (33.0 - 37.0 g/dL) 29.9 L RDW (11.5 - 14.5 %) 17.6 H Plt Count (150 - 400 x10 3/uL) 263 MPV (7.0 - 9.0 fL) 10.9 H Neut % (Auto) (56.0 - 77.0 %) 59.3 Lymph % (Auto) (14.0 - 32.0 %) 27.3 [place] % (Auto) (4.8 - 9.0 %) 9.9 H Eos % (Auto) (0.3 - 3.7 %) 2.3 Baso % (Auto) (0.0 - 2.0 %) 0.6 Neut # (Auto) (2.0 - 7.6 x10 3/uL) 3.07 Lymph # (Auto) (1.0 - 3.8 x10 3/uL) 1.41 [place] # (Auto) (0.1 - 0.8 x10 3/uL) 0.51 Eos # (Auto) (0.0 - 0.2 x10 3/uL) 0.12 Baso # (Auto) (0.0 - 0.2 x10 3/uL) 0.03 Abs Immat Gran (auto) (0.00 - 0.03 x10 3/uL) 0. 03 Add Manual Diff NO Immature Gran % (0.0 - 2.0 %) 0.6 Nucleated RBC % (0 - 0 %) 0.0 Nucleated RBCs # (Man) (0.0 - 0.1 x10 3/uL) 0. 00 Radiology data: Recent Impressions: RADIOLOGY - XR CHEST 1 V 04/30 0937 Report Impression - Status: SIGNED Entered: 04/30/2022 1045 IMPRESSION: 1. Interval placement right IJ hemodialysis cath eter as described . 2. Improved aeration lungs with decreasing pulmo nary vascular congestion. Impression By: [email or web address] - Effie Lara Results: labs reviewed, patrick l signs reviewed, x-ray personally reviewed, current med profile rev'd Treatment Prophylaxis Treatment Prophylaxis Lines: L arm HD AVF CVC/PICC documentation: The data below has been imported from nursing do cumentation. Any exceptions have been noted below under Provider comments. CVC/PICC insertion date/time: Dialysis catheter double Internal jugular Right Inserted 04/30/22 0821 Provider comments on imported nursing data: [] Diagnosis, Assessment Plan Problem List/A P: 1. End stage renal disease 2. Dialysis AV fistula malfunction 3. Gangrene of right foot 4. Influenza A 5. Diabetic neuropathy Free Text A P: on Tamiflu 5-day course for Flu A R heel diabetic wet gangrene, no abscess or Oste omyelitis on MRI 04/26 CoNS on culture 04/24 s/p L arm HD AVF and R leg trombectomies and ang ioplasties 04/26 On Vanc and cefepime Ok to DC on 2-week Doxycycline Podiatry following will follow Electronically Signed by Kailey Contreras MD, MD on at 111[address] [facility] #:[id number] END OF REPORT 2022-04-30 08:43:00-00:00 [facility] ([facility]) Operative Note - Full REPORT#:[id number] REPORT STATUS: Signed DATE:04/30/22 TIME: 842 PATIENT: PAOLA MISHRA UNIT #: [id number] ROOM/BED: [place] [address] : 57 AGE: 66 SEX: F ATTEND: Marcella Escobar MD ADM AUTHOR: Az Francois MD * ALL edits or amendments must be made on the [employer]/computer document * Operative Report ORM Surgeries: Surgery Date and Time: 04/30/2022 0730 Proposed Primary Procedure: INSERTION TUNNEL DI ALYSIS CATHETER, Start date: 04/30/22 Start time: 08 Pre-procedure diagnosis: end stage renal disease Post-procedure diagnosis: same Procedures performed: Placement of right internal jugular tunneled venkatesh lysis catheter [id number] Technique/Procedure: The patient was brought into the op room and pre pped and draped in the usual sterile manner. A wire was p laced to the previous nontunneled dialysis catheter to the inferior vena cava under fluorosc opic guidance. A new 23 cm tip to cuff tunneled dialysis catheter w as tunneled into place from a lateral incision. The peel-away sheath was placed under fluoroscopic g uidance to the venotomy. The cath was placed through the peel-away sh eath to the right atrium and the peel- away sheath was removed. Good flush and withdrawal was noted through each port of the catheter. 2-0 nylon stitch was us ed to close the skin at the entry site and at the butterflies. 4-0 Monocryl stitch was used to close the skin overlying the venotomy in a subcuticular fashion. The catheter was packed with 1000/cc of heparin. The patient tolerated the pr ocedure well. There were no complications. The patient was stable on dischar ge to the PACU. Primary Surgeon: Dr. Az Francois Overhead Crane Operator(s): none Anesthesia: general anesthesia Operative findings: Good flush and withdrawal through each port of t he catheter. Complications: none Estimated blood loss in ml's: none Specimens removed/altered: non-tunneled dialysis catheter Implant(s): tunneled dialysis catheter at 0848 RPT #:[id number] END OF REPORT 2022-04-30 08:42:00-00:00 [facility] ([facility]) Brief Op Note REPORT#:[id number] REPORT STATUS: Signed DATE:04/30/22 TIME: 841 PATIENT: PAOLA MISHRA UNIT #: [id number] ROOM/BED: [place] [address] : 57 AGE: 66 SEX: F ATTEND: Marcella Young MD ADM AUTHOR: Az Francois MD * ALL edits or amendments must be made on the el [employer]/computer document * Op/Inv Proc Note - Brief ORM Surgeries: Surgery Date and Time: 04/30/2022 0730 Proposed Primary Procedure: INSERTION TUNNEL DI ALYSIS CATHETER, Pre-procedure diagnosis: end stage renal disease Post-procedure diagnosis: same as pre procedure dx Procedures performed: Placement of right internal jugular tunneled venkatesh lysis catheter [id number] Primary Surgeon: Dr. Az Francois Overhead Crane Operator(s): none Anesthesia: general anesthesia Findings: Good flush and withdrawal through each port of t he catheter. Complications: none Estimated blood loss in ml's: none Specimens removed/altered: non-tunneled dialysis catheter at 0848 [facility] #:[id number] END OF REPORT 2022-04-30 07:09:00-00:00 [facility] Progress Note REPORT#:[id number] REPORT STATUS: Signed DATE:04/30/22 TIME: 708 PATIENT: PAOLA MISHRA UNIT #: [id number] ROOM/BED: [place] [address] : 57 AGE: 66 SEX: F ATTEND: Marcella Young MD ADM AUTHOR: Demetrius Barraza MD * ALL edits or amendments must be made on the [employer]/computer document * Subjective Chief complaint: Clotted AVF HPI: Patient seen and evaluated, discussed with care team, 66-year-old female with history of end-stage renal d isease on chronic hemodialysis Tuesday and Tuesday, hypertension and diabetes mellit us who presented to the emergency room today with a clotted AV fistula. Last reported h emodialysis was on Tuesday. Patient also has right heel pain and wound for about 3 weeks. She denies fever, chills, nausea, vomiting or other complaints. He r laboratories showed sodium 129, potassium 6, CO2 24, BUN 81, creati nine 11, glucose 273, hemoglobin 11.4, platelet 221, blood count 5.5. Renal consult was requested for management of her end-stage renal disease/hemodialysis. Patient reports: Yes: complaints. Comments: Patient seen and evaluated, HPI no change from i nitial, feels okay. Review of Systems Constitutional: Reports: fatigue. Denies: chills, fever. Skin: Denies: abrasion, bruising. Allergy/Immun: Denies: hives, itching. Eyes: Denies: redness, discharge. ENT: Denies: ear ringing, earache. Respiratory: Denies: hemoptysis, SOB. Cardiovascular: Denies: chest pain. Objective General VS/I O: Vital Signs: Date Time Temp Pulse Resp B/P B/P Pulse O2 O2 F low FiO2 Mean Ox Delivery Rate 04/30 0708 36.5 72 14 124/74 90.4 99 Room air 04/30 0408 36.7 72 18 121/66 84.4 97 Room air 04/29 2311 37.1 78 18 135/64 87.4 97 Room air 04/29 2016 36.7 77 18 134/62 86.2 97 Room air 04/29 1112 36.6 76 18 104/59 74.3 98 04/29 0750 37.2 77 18 123/58 79.5 95 24 hour I O ending at 0700: 04/30 0700 04/29 1900 Intake Total 250 Output Total Balance 250 Intake, Oral 250 PATIENT WEIGHT: Weight (lb): Weight (oz): Weight (kg): 54.545 Medications Active Meds + DC'd Last 24 Hrs Heparin Sodium (HEPARIN SODIUM) 0 .STK-MED ONE . ROUTE (DC) Fentanyl Citrate (SUBLIMAZE) 100 MCG PACU Q10MIN PRN PRN IV (UNV) Fentanyl Citrate (SUBLIMAZE) 50 MCG PACU Q10MIN PRN PRN IV (UNV) Hydralazine HCl (APRESOLINE) 5 MG PACU Q10MIN MO N PRN IV (UNV) Hydrocodone Bitart/Acetaminophen (NORCO 5/325) 1 TAB PACU ONCE PO (UNV) Hydromorphone HCl (DILAUDID) 1 MG PACU Q10MIN MO N PRN IV (UNV) Hydromorphone HCl (DILAUDID) 0.5 MG PACU Q5MIN P RN PRN IV (UNV) Insulin Human Lispro (HUMALOG) 0 PACU ONCE PRN S UBQ (UNV) Labetalol HCl (LABETALOL HCL) 5 MG PACU Q10MIN P RN PRN IV (UNV) Meperidine HCl (DEMEROL 50MG/ML) 12.5 MG PACU ON CE PRN IV (UNV) Morphine Sulfate (morphine SULFATE) 2 MG PACU Q1 0MIN PRN PRN IV (UNV) Ondansetron HCl (ZOFRAN) 4 MG PACU ONCE PRN IV ( UNV) Promethazine HCl (PHENERGAN) 25 MG PACU ONCE PRN PO (UNV) Ropivacaine (NAROPIN 0.5% 150 MG/30mL) 150 MG DIR PRN LOCAL (UNV) Tramadol HCl (ULTRAM) 50 MG PACU ONCE PO (UNV) Fentanyl Citrate (SUBLIMAZE) 0 .STK-MED ONE .ROU TE (DC) Midazolam HCl (VERSED) 0 .STK-MED ONE .ROUTE (DC ) Propofol (DIPRIVAN 200MG/20ML INJECTION) 20 ML . STK-MED ONE IV (DC) Clopidogrel Bisulfate (Plavix) 75 MG DAILY PO Dextrose/Water (DEXTROSE 10% IN WATER) 125 ML DIR PRN IV (CKD) Dextrose/Water (DEXTROSE 10% IN WATER) 250 ML DIR PRN IV (CKD) Glucagon (GLUCAGON) 1 MG ASDIR PRN IM Acetaminophen (TYLENOL EXTRA STRENGTH) 1,000 MG PREOP ONCALL PO (CKD) Gabapentin (NEURONTIN) 200 MG PREOP ONCALL PO (C KD) Oseltamivir Phosphate (TAMIFLU) 30 MG MOWEFR PO Cefepime HCl (MAXIPIME) 1 GM Q24H IV Sodium Chloride (SODIUM CHLORIDE) 10 ML Miscellaneous Information (VANCOMYCIN PHARMACY T O DOSE) 1 EACH ASDIR IV (CKD) Silver Sulfadiazine (SILVADENE 1% 50 GM CREAM) 1 APPLIC AC BK TOPICAL Insulin Human Lispro (HUMALOG) 0 AC HS SUBQ Amlodipine Besylate (NORVASC) 10 MG DAILY PO Cholecalciferol (VITAMIN D) 2,000 INTL.UNITS CARMENZA LY PO (CKD) Gabapentin (NEURONTIN) 100 MG DAILY PO Pantoprazole (PROTONIX) 40 MG DAILY PO Atorvastatin Calcium (LIPITOR) 20 MG BEDTIME PO Tacrolimus (PROGRAF) 1 MG BID PO Albumin Human (ALBUMINAR-25%) 12.5 GM ASDIR PRN IV Heparin Sodium (Porcine) (HEPARIN SODIUM) 3,000 UNIT ASDIR PRN DIALYSIS Lidocaine HCl (LIDOCAINE HCL/PF) 0.5 ML ASDIR MO N I-DERMAL (CKD) Mannitol (MANNITOL 25% 12.5GM/50ML) 12.5 GM ASDI R PRN IV Sodium Chloride (SODIUM CHLORIDE 0.9%) 2,000 ML ASDIR PRN IV Sodium Chloride (SODIUM CHLORIDE) 5 ML ASDIR PRN IV Sodium Chloride (SODIUM CHLORIDE) 10 ML ASDIR MO N IV Sodium Chloride (SODIUM CHLORIDE 0.9%) 250 ML DIR PRN IV Acetaminophen (TYLENOL) 650 MG Q4H PRN PRN PO Clonidine HCl (CATAPRES) 0.1 MG TID PRN PO Docusate Sodium (COLACE) 100 MG BID PRN PRN PO Hydralazine HCl (APRESOLINE) 10 MG Q6H PRN PRN I V Zolpidem Tartrate (AMBIEN) 5 MG BEDTIME PRN PRN PO Physical Exam General appearance: alert, no acute distress Head/eyes: atraumatic, normocephalic ENT: normal nose Neck: non-tender, supple/no meningismus Cardiovascular: normal heart sounds, no rub Respiratory: aerating well, symmetric expansion Abdomen: non-tender, soft Genitourinary: no flank pain Extremities: pitting edema, non-tender Musculoskeletal: no CVA tenderness, no tendernes s Neuro/VACATION GUIDE: alert, normal speech Skin: dry, intact Results Findings/Data: Laboratory Tests 04/30 04/29 04/29 04/29 0600 1549 1111 0748 Chemistry Sodium (134 - 147 mEq/L) 135 Potassium (3.4 - 5.0 mEq/L) 4.4 Chloride (100 - 108 mEq/L) 96 L Carbon Dioxide (21 - 33 mEq/l) 24 Anion Gap (0 - 20) 19 BUN (7 - 18 mg/dL) 43 H Creatinine (0.6 - 1.3 mg/dL) 7.8 H Glomerular Filtr Rate (80 - 90) 5.2 L Glucose (70 - 110 mg/dL) 207 H POC Glucose (70 - 110 MG/DL) 200 H 217 H 289 H Calcium (8.0 - 10.5 mg/dL) 7.8 L Phosphorus (2.5 - 4.9 MG/DL) 5.4 H Magnesium (1.80 - 2.40 mg/dL) 2.09 Laboratory Tests 04/30 0600 Hematology WBC (4.5 - 11.0 x10 3/uL) 5.2 RBC (3.54 - 5.02 x10 6/uL) 4.76 Hgb (11.0 - 15.0 g/dL) 11.8 Hct (33.0 - 45.0 %) 39.5 MCV (81.0 - 99.0 fL) 83.0 MCH (27.0 - 33.0 pg) 24.8 L MCHC (33.0 - 37.0 g/dL) 29.9 L RDW (11.5 - 14.5 %) 17.6 H Plt Count (150 - 400 x10 3/uL) 263 MPV (7.0 - 9.0 fL) 10.9 H Neut % (Auto) (56.0 - 77.0 %) 59.3 Lymph % (Auto) (14.0 - 32.0 %) 27.3 [place] % (Auto) (4.8 - 9.0 %) 9.9 H Eos % (Auto) (0.3 - 3.7 %) 2.3 Baso % (Auto) (0.0 - 2.0 %) 0.6 Neut # (Auto) (2.0 - 7.6 x10 3/uL) 3.07 Lymph # (Auto) (1.0 - 3.8 x10 3/uL) 1.41 [place] # (Auto) (0.1 - 0.8 x10 3/uL) 0.51 Eos # (Auto) (0.0 - 0.2 x10 3/uL) 0.12 Baso # (Auto) (0.0 - 0.2 x10 3/uL) 0.03 Abs Immat Gran (auto) (0.00 - 0.03 x10 3/uL) 0. 03 Add Manual Diff NO Immature Gran % (0.0 - 2.0 %) 0.6 Nucleated RBC % (0 - 0 %) 0.0 Nucleated RBCs # (Man) (0.0 - 0.1 x10 3/uL) 0.0 0 Diagnosis, Assessment Plan Free Text A P: Patient seen and evaluated, discussed with care team, images and laboratories reviewed. History of hypertension: Monitor blood p ressure closely and adjust medications as needed Diabetes mellitus: Insulin: Monitor bloo d sugar closely adjust insulin dose as needed. End-stage renal disease on chronic hemod ialysis, Tuesday, Tuesday and Tuesday, last reported hemodialysis was on Tuesday. Clotted AV fistula: Vascular surgery was consult ed. Hyperkalemia: Discussed with vascular surgery, w ill place temporary dialysis catheter, plan for hemodialy sis for 2 hours tonight followed by full session in the morning. 04/24/2022 status post acute dialysis catheter placement and dialysis for 2 hours last night, plan for dialysis today, 4 hours, 2K , ultrafiltration 2 to 3 L if tolerated. Hemoglobin this morning 11.7, platele t 226, blood count 3.5, seen during HD. 04/25/2022 laboratories this morning showed sodiu m 139, potassium 3.8, CO2 26, creatinine 6.4, hemoglobin 12.4, platelet 179, b lood count 4.4, last hemodialysis on Tuesday, next hemodialysis for Tuesday. 04/26/2022 laboratory this morning showed sodium 139, potassium 4.2, CO2 23, creatinine 8.8, hemoglobin 12, platelet 202, whi te blood count 4.3. Plan for hemodialysis today, 4 hours, 3K, ultrafiltration 2 to 3 L as tolerated. 04/27/2022 status post hemodialysis yesterday, st atus post AV fistula thrombectomy and lower extremity angiogram and i ntervention, hemoglobin this morning 12.5, platelet 197, blood count 3.2, oanh n for dialysis in the morning 04/28/2022 laboratory this mo rning still pending, plan for hemodialysis today, 4 hours, 2K, ultrafiltration 2 to 3 L, will use AV fistula today if no issues will remove acute dialysis catheter. 04/29/2022 status post hemodialysis yesterday, beulah sánchez had high arterial pressures during dialysis, vascular surgery was contacted, recommended not removing acute catheter until AV fistula functio n is resolved. 04/30/2022 laboratory this mo rning showed sodium 135, potassium 4.4, CO2 24, BUN 43, creatinine 7.8, phosphorus 5.4 will adjust p hosphate binders, hemoglobin 11.8, platelet 263, blood count 5.2, oanh n for hemodialysis today, 4 hours, 3K, ultrafiltration 2 to 3 L, plan for tunneled dial ysis catheter by vascular surgery today. Seen and evaluated during HD Electronically Signed by Demetrius Barraza MD on at 0[address] [facility] #:[id number] END OF REPORT 2022-04-29 16:42:00-00:00 [facility] Podiatry Progress Note REPORT#:[id number] REPORT STATUS: Signed DATE:04/29/22 TIME: 1642 PATIENT: PAOLA MISHRA UNIT #: [id number] ROOM/BED: [place] [address] : 57 AGE: 66 SEX: F ATTEND: Marcella Young MD ADM AUTHOR: Delma Saucedo DPM * ALL edits or amendments must be made on the el [employer] document * Subjective Patient reports: no complaints, no fever Objective General VS: Last Documented: Result Date Time Pulse Ox 98 04/29 111 B/P 104/59 04/29 1112 B/P Mean 74.3 04/29 1112 Temp 36.6 04/29 1112 Pulse 76 04/29 1112 Resp 18 04/29 1112 O2 Delivery Room air 04/29 0403 PATIENT WEIGHT: Weight (lb): Weight (oz): Weight (kg): 54.545 Medications: Active Meds + DC'd Last 24 Hrs Vancomycin HCl (VANCOMYCIN HCL) 500 MG ONCE ONE IV (DC) Sodium Chloride (SODIUM CHLORIDE 0.9% 100 ML) 1 00 ML Clopidogrel Bisulfate (Plavix) 75 MG DAILY PO Dextrose/Water (DEXTROSE 10% IN WATER) 125 ML DIR PRN IV (CKD) Dextrose/Water (DEXTROSE 10% IN WATER) 250 ML DIR PRN IV (CKD) Glucagon (GLUCAGON) 1 MG ASDIR PRN IM Acetaminophen (TYLENOL EXTRA STRENGTH) 1,000 MG PREOP ONCALL PO (CKD) Gabapentin (NEURONTIN) 200 MG PREOP ONCALL PO ( CKD) Oseltamivir Phosphate (TAMIFLU) 30 MG MOWEFR PO Cefepime HCl (MAXIPIME) 1 GM Q24H IV Sodium Chloride (SODIUM CHLORIDE) 10 ML Miscellaneous Information (VANCOMYCIN PHARMACY T O DOSE) 1 EACH ASDIR IV (CKD) Silver Sulfadiazine (SILVADENE 1% 50 GM CREAM) 1 APPLIC AC BK TOPICAL Insulin Human Lispro (HUMALOG) 0 AC HS SUBQ Amlodipine Besylate (NORVASC) 10 MG DAILY PO Cholecalciferol (VITAMIN D) 2,000 INTL.UNITS CARMENZA LY PO (CKD) Gabapentin (NEURONTIN) 100 MG DAILY PO Pantoprazole (PROTONIX) 40 MG DAILY PO Atorvastatin Calcium (LIPITOR) 20 MG BEDTIME PO Tacrolimus (PROGRAF) 1 MG BID PO Albumin Human (ALBUMINAR-25%) 12.5 GM ASDIR PRN IV Heparin Sodium (Porcine) (HEPARIN SODIUM) 3,000 UNIT ASDIR PRN DIALYSIS Lidocaine HCl (LIDOCAINE HCL/PF) 0.5 ML ASDIR MO N I-DERMAL (CKD) Mannitol (MANNITOL 25% 12.5GM/50ML) 12.5 GM ASDI R PRN IV Sodium Chloride (SODIUM CHLORIDE 0.9%) 2,000 ML ASDIR PRN IV Sodium Chloride (SODIUM CHLORIDE) 5 ML ASDIR PRN IV Sodium Chloride (SODIUM CHLORIDE) 10 ML ASDIR MO N IV Sodium Chloride (SODIUM CHLORIDE 0.9%) 250 ML DIR PRN IV Acetaminophen (TYLENOL) 650 MG Q4H PRN PRN PO Acetaminophen/Codeine Phosphate (TYLENOL W CODEI NE NO.3) 1 TAB Q4H PRN PRN PO (DC) Clonidine HCl (CATAPRES) 0.1 MG TID PRN PO Docusate Sodium (COLACE) 100 MG BID PRN PRN PO Hydralazine HCl (APRESOLINE) 10 MG Q6H PRN PRN I V Hydrocodone Bitart/Acetaminophen (NORCO 5/325) 1 TAB Q6H PRN PRN PO (DC) Zolpidem Tartrate (AMBIEN) 5 MG BEDTIME PRN PRN PO I O: 24 hour I O ending at 0700: 04/29 0700 04/28 1900 Intake Total 200 Output Total 2684 Balance 200 -2684 Intake, Oral 200 Output, 2684 Hemodialysis Dietitian nutrition assessment The data set between the solid lines has been im ported from the dietitian's assessment. BMI Calculated: 22.7 Nutrition related diagnosis: Nutrition diagnosis details: Nutrition problem: Nutrition etiology: Nutrition signs and symptoms: Nutrition prescription: Dietitian name: Assessment completed: Physical Exam Wound/incision: Location: Posterior plantar lateral heel right foot Extremities: Left moves all, Left no cyanosis, Left abnormal capillary refill, Left cool, Left decreased range of motion, Right moves all, Right no cyanosis, Right abnormal capillary refill, Right cool, Right dec reased range of motion LE vascular pulse assess: Nonpalpable R posterior tibialis, Nonpalpable L posterior tibialis, 1+ R dorsalis pedis, 1+ L dorsalis pedis Reflex testing: Monofilament: DIM Toes, DIM Ball of foot, DIM Arch, DIM Heel Reflexes: Achilles: 2+ Babinski: 0 Musculoskeletal: Musculoskeletal: decreased ROM, pain on palpati on to ulcerative site right heel Neuro/VACATION GUIDE: alert, oriented X 3, sensory deficit Skin: cool, erythema Ulcer: Location: heel (right foot) Type: pressure Appearance: granulation tissue, slough Drainage: serosanguineous, mild Depth: muscle w/out necrosis Debo wound: cool, dry, erythema Stage (pressure): 4 Results Findings/Data: Laboratory Tests: 04/29 04/29 04/29 04/28 1549 1111 0748 2 Chemistry POC Glucose (70 - 110 MG/DL) 200 H 217 H 289 H 223 H Results: labs reviewed Diagnosis, Assessment Plan Free Text A P: 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 All questions answered to their understanding. Placed orders for baseline x-rays 3 views right foot VASCULAR EVAL. Continue IV abx, final wound culture and sensiti vity Continue with wound care: Cleanse wound right he el with vashe followed by application of silvadene cream and DSD once te y. Continue with Prevalon boots. Will continue to follow. Electronically Signed by Delma Saucedo DPM on 09/22 at 3902 RPT #:[id number] END OF REPORT 2022-04-29 15:52:00-00:00 [facility] ([facility]) Infectious Dis. Progress Note REPORT#:[id number] REPORT STATUS: Signed DATE:04/29/22 TIME: 1552 PATIENT: PAOLA MISHRA UNIT #: [id number] ROOM/BED: [place] [address] : 57 AGE: 66 SEX: F ATTEND: Marcella Young MD ADM AUTHOR: Kailey Contreras MD, MD * ALL edits or amendments must be made on the [employer]/computer document * Subjective Chief complaint: Right heel gangrene HPI: The patient is a 66-year-old female wit h past medical history significant for hypertensio n, diabetes, end-stage renal disease, on dialysis on Tuesday, Tuesday and , admitted to [facility] with a clotted AV fistula. The patient also had reported right heel wound with purulent drainage and complai nt of right heel pain. On admission to the hospital, nephrology was consulted and the p atient was started on vancomycin, and Infectious D isease is consulted for evaluation of fever. At the time of my consultation, the patient is lying in bed, reports fevers and chills for last 24 hours. The patie nt reports that she has taken Moderna COVID vaccine with booster. She is not sure as to whether she has taken flu shot. Does report chills and body aches. Reports ri ght heel severe foul smelling drainage and pain. Patient reports: No: complaints. Review of Systems Constitutional: Denies: chills, fatigue. Skin: Denies: abrasion, bruising. Allergy/Immun: Denies: allergic reaction, anaphylaxis. Eyes: Denies: redness, discharge. ENT: Denies: ear drainage, ear ringing. Respiratory: Denies: STRICK[place] (dyspnea on exertion), hemoptysis. Cardiovascular: Denies: chest pain, [place]ICK[place] (dyspnea on exertion). Objective General VS/I O: Vital Signs Date Temp Pulse Resp B/P B/P Mean Pulse Ox FiO2 04/28-04/29 97.3-99.3 71-82 14-18 103-130/56-63 74.3-85.2 94-98 Last Documented: Result Date Time Pulse Ox 98 04/29 1112 B/P 104/59 04/29 1112 B/P Mean 74.3 04/29 1112 Temp 97.9 04/29 1112 Pulse 76 04/29 1112 Resp 18 04/29 1112 O2 Delivery Room air 04/29 0403 Vital Signs: Date Time Temp Pulse Resp B/P B/P Pulse O2 O2 F low FiO2 Mean Ox Delivery Rate 04/29 1112 97.9 76 18 104/59 74.3 98 04/29 0750 99.0 77 18 123/58 79.5 95 04/29 0403 98.6 73 17 130/63 85.2 97 Room air 04/28 2305 98.6 78 15 110/58 75.2 97 Room air 04/28 1951 99.3 71 14 113/56 75.2 94 Room air 04/28 1615 97.3 82 18 103/63 76.8 97 Room air 24 hour I O ending at 0700: 04/29 0700 04/28 1900 Intake Total 200 Output Total 2684 Balance 200 -2684 Intake, Oral 200 Output, 2684 Hemodialysis PATIENT WEIGHT: Weight (lb): Weight (oz): Weight (kg): 54.545 Medications: Active Meds + DC'd Last 24 Hrs Vancomycin HCl (VANCOMYCIN HCL) 500 MG ONCE ONE IV (DC) Sodium Chloride (SODIUM CHLORIDE 0.9% 100 ML) 1 00 ML Clopidogrel Bisulfate (Plavix) 75 MG DAILY PO Dextrose/Water (DEXTROSE 10% IN WATER) 125 ML DIR PRN IV (CKD) Dextrose/Water (DEXTROSE 10% IN WATER) 250 ML DIR PRN IV (CKD) Glucagon (GLUCAGON) 1 MG ASDIR PRN IM Acetaminophen (TYLENOL EXTRA STRENGTH) 1,000 MG PREOP ONCALL PO (CKD) Gabapentin (NEURONTIN) 200 MG PREOP ONCALL PO (C KD) Oseltamivir Phosphate (TAMIFLU) 30 MG MOWEFR PO Cefepime HCl (MAXIPIME) 1 GM Q24H IV Sodium Chloride (SODIUM CHLORIDE) 10 ML Miscellaneous Information (VANCOMYCIN PHARMACY T O DOSE) 1 EACH ASDIR IV (CKD) Silver Sulfadiazine (SILVADENE 1% 50 GM CREAM) 1 APPLIC AC BK TOPICAL Insulin Human Lispro (HUMALOG) 0 AC HS SUBQ Amlodipine Besylate (NORVASC) 10 MG DAILY PO Cholecalciferol (VITAMIN D) 2,000 INTL.UNITS CARMENZA LY PO (CKD) Gabapentin (NEURONTIN) 100 MG DAILY PO Pantoprazole (PROTONIX) 40 MG DAILY PO Atorvastatin Calcium (LIPITOR) 20 MG BEDTIME PO Tacrolimus (PROGRAF) 1 MG BID PO Albumin Human (ALBUMINAR-25%) 12.5 GM ASDIR PRN IV Heparin Sodium (Porcine) (HEPARIN SODIUM) 3,000 UNIT ASDIR PRN DIALYSIS Lidocaine HCl (LIDOCAINE HCL/PF) 0.5 ML ASDIR MO N I-DERMAL (CKD) Mannitol (MANNITOL 25% 12.5GM/50ML) 12.5 GM ASDI R PRN IV Sodium Chloride (SODIUM CHLORIDE 0.9%) 2,000 ML ASDIR PRN IV Sodium Chloride (SODIUM CHLORIDE) 5 ML ASDIR PRN IV Sodium Chloride (SODIUM CHLORIDE) 10 ML ASDIR MO N IV Sodium Chloride (SODIUM CHLORIDE 0.9%) 250 ML DIR PRN IV Acetaminophen (TYLENOL) 650 MG Q4H PRN PRN PO Acetaminophen/Codeine Phosphate (TYLENOL W CODEI NE NO.3) 1 TAB Q4H PRN PRN PO (DC) Clonidine HCl (CATAPRES) 0.1 MG TID PRN PO Docusate Sodium (COLACE) 100 MG BID PRN PRN PO Hydralazine HCl (APRESOLINE) 10 MG Q6H PRN PRN I V Hydrocodone Bitart/Acetaminophen (NORCO 5/325) 1 TAB Q6H PRN PRN PO (DC) Zolpidem Tartrate (AMBIEN) 5 MG BEDTIME PRN PRN PO Physical Exam General appearance: no acute distress Head/Eyes: atraumatic, normocephalic Neck: non-tender, supple/no meningismus Cardiovascular: normal heart sounds, no murmur Respiratory: clear to auscultation, symmetric ex pansion Abdomen: non-tender, soft Extremities: no clubbing Skin: gangrene (R heel wet gangrene) Results Findings/Data: Laboratory Tests 04/29 04/29 04/28 04/28 1111 0748 1952 1616 Chemistry POC Glucose (70 - 110 MG/DL) 217 H 289 H 223 H 160 H Results: labs reviewed, patrick l signs reviewed, x-ray personally reviewed, current med profile rev'd Treatment Prophylaxis Treatment Prophylaxis Lines: L arm HD AVF CVC/PICC documentation: The data below has been imported from nursing do cumentation. Any exceptions have been noted below under Provider comments. CVC/PICC insertion date/time: Dialysis catheter triple Internal jugular Right Inserted 04/23/22 2100 Provider comments on imported nursing data: [] Diagnosis, Assessment Plan Problem List/A P: 1. End stage renal disease 2. Dialysis AV fistula malfunction 3. Gangrene of right foot 4. Influenza A 5. Diabetic neuropathy Free Text A P: on Tamiflu 5-day course for Flu A R heel diabetic wet gangrene, no abscess or Oste omyelitis on MRI 04/26 CoNS on culture 04/24 s/p L arm HD AVF and R leg trombectomies and ang ioplasties 04/26 On Vanc and cefepime Ok to DC on 2-wek Doxycycline Podiatry following will follow Electronically Signed by Kailey Contreras MD, MD on at [facility] RPT #:[id number] END OF REPORT 2022-04-29 14:17:00-00:00 [facility] Prog. Note REPORT#:[id number] REPORT STATUS: Signed DATE:04/29/22 TIME: 141 PATIENT: PAOLA MISHRA UNIT #: [id number] ROOM/BED: [place] [address] : 57 AGE: 66 SEX: F ATTEND: Marcella Young MD ADM AUTHOR: Marcella Stewart MD * ALL edits or amendments must be made on the [employer]/computer document * Subjective Chief complaint: Feeling okay No distress Getting hemodialysis Review of Systems Constitutional: Reports: generalized weakness. Skin: Denies: abrasion, bruising, contusion, diaphores is, ecchymosis, itching, laceration, rash, swelling, other. Eyes: Denies: redness, discharge, visual loss/blurred, itching, diplopia, eye pain, photophobia, swelling, other. Respiratory: Denies: STRICK[place] (dyspnea on exertion), hemoptysis, n on productive cough, parox nocturnal dyspnea, pleurisy, pleuritic pain, pneumonia, productive cough (sputum ), SOB, wheezing, other. Cardiovascular: Denies: chest pain, STRICK[place] (dyspnea on exer tion), edema, orthopnea, palpitations, parox nocturnal dyspnea, other. GI: Reports: nausea. Neuro: Denies: bladder dysfunction, bowel dysfunction, change in LOC, confusion, dizziness, focal weakness, gait problem, headach e, lightheaded, numbness, seizure, slurred speech, spinning sensation, syn cope, unable to speak, vision change, weakness, other. Objective General VS/I O: Vital Signs Date Temp Pulse Resp B/P B/P Mean Pulse Ox FiO2 04/28-04/29 97.3-99.3 71-82 14-18 103-130/56-63 74.3-85.2 94-98 Last Documented: Result Date Time Pulse Ox 98 04/29 1112 B/P 104/59 04/29 1112 B/P Mean 74.3 04/29 1112 Temp 97.9 04/29 1112 Pulse 76 04/29 1112 Resp 18 04/29 1112 O2 Delivery Room air 04/29 0403 24 hour I O ending at 0700: 04/29 0700 04/28 1900 Intake Total 200 Output Total 2684 Balance 200 -2684 Intake, Oral 200 Output, 2684 Hemodialysis PATIENT WEIGHT: Weight (lb): Weight (oz): Weight (kg): 54.545 Medications: Active Meds + DC'd Last 24 Hrs Vancomycin HCl (VANCOMYCIN HCL) 500 MG ONCE ONE IV (DC) Sodium Chloride (SODIUM CHLORIDE 0.9% 100 ML) 100 ML Clopidogrel Bisulfate (Plavix) 75 MG DAILY PO Dextrose/Water (DEXTROSE 10% IN WATER) 125 ML DIR PRN IV (CKD) Dextrose/Water (DEXTROSE 10% IN WATER) 250 ML DIR PRN IV (CKD) Glucagon (GLUCAGON) 1 MG ASDIR PRN IM Acetaminophen (TYLENOL EXTRA STRENGTH) 1,000 MG PREOP ONCALL PO (CKD) Gabapentin (NEURONTIN) 200 MG PREOP ONCALL PO (C KD) Oseltamivir Phosphate (TAMIFLU) 30 MG MOWEFR PO Cefepime HCl (MAXIPIME) 1 GM Q24H IV Sodium Chloride (SODIUM CHLORIDE) 10 ML Miscellaneous Information (VANCOMYCIN PHARMACY T O DOSE) 1 EACH ASDIR IV (CKD) Silver Sulfadiazine (SILVADENE 1% 50 GM CREAM) 1 APPLIC AC BK TOPICAL Insulin Human Lispro (HUMALOG) 0 AC HS SUBQ Amlodipine Besylate (NORVASC) 10 MG DAILY PO Cholecalciferol (VITAMIN D) 2,000 INTL.UNITS CARMENZA LY PO (CKD) Gabapentin (NEURONTIN) 100 MG DAILY PO Pantoprazole (PROTONIX) 40 MG DAILY PO Atorvastatin Calcium (LIPITOR) 20 MG BEDTIME PO Tacrolimus (PROGRAF) 1 MG BID PO Albumin Human (ALBUMINAR-25%) 12.5 GM ASDIR PRN IV Heparin Sodium (Porcine) (HEPARIN SODIUM) 3,000 UNIT ASDIR PRN DIALYSIS Lidocaine HCl (LIDOCAINE HCL/PF) 0.5 ML ASDIR MO N I-DERMAL (CKD) Mannitol (MANNITOL 25% 12.5GM/50ML) 12.5 GM ASDI R PRN IV Sodium Chloride (SODIUM CHLORIDE 0.9%) 2,000 ML ASDIR PRN IV Sodium Chloride (SODIUM CHLORIDE) 5 ML ASDIR PRN IV Sodium Chloride (SODIUM CHLORIDE) 10 ML ASDIR MO N IV Sodium Chloride (SODIUM CHLORIDE 0.9%) 250 ML DIR PRN IV Acetaminophen (TYLENOL) 650 MG Q4H PRN PRN PO Acetaminophen/Codeine Phosphate (TYLENOL W CODEI NE NO.3) 1 TAB Q4H PRN PRN PO (DC) Clonidine HCl (CATAPRES) 0.1 MG TID PRN PO Docusate Sodium (COLACE) 100 MG BID PRN PRN PO Hydralazine HCl (APRESOLINE) 10 MG Q6H PRN PRN I V Hydrocodone Bitart/Acetaminophen (NORCO 5/325) 1 TAB Q6H PRN PRN PO (DC) Zolpidem Tartrate (AMBIEN) 5 MG BEDTIME PRN PRN PO Physical Exam General appearance: alert, awake, oriented Head/eyes: atraumatic, EOMI, normal conjunctiva/ sclera ENT: moist mucosal membranes Neck: full range of motion, non-tender Cardiovascular: normal capillary refill, normal heart sounds, regular rate rhythm Respiratory: aerating well, clear to auscultatio n Abdomen: soft Musculoskeletal: full range of motion Neuro/VACATION GUIDE: alert, oriented X 3 Results Findings/Data: Laboratory Tests 04/29 04/29 04/28 04/28 1111 0748 1952 1616 Chemistry POC Glucose (70 - 110 MG/DL) 217 H 289 H 223 H 160 H Diagnosis, Assessment Plan Free Text DxA P Notes Free text DxA P notes: Fevers / influenza virus aVF malfunction Volume overload ESRD Right FOOT ulcer -Positive flu. Start Tamiflu?. Infectiou s disease consulted. As needed Tylenol -Dialysis catheter placed. Resume dialysis per n ephrology -Wound care per podiatry -replete elctrolytes -Blood sugars stable. SSI -Salt and fluid restriction. diurese if edema in creases. daily weights -prn zofran and antacids -allow diet -continue home BP meds. PRN hydralazine -prn stool softners -appreciate specialists help DVT prophylaxis with heparin/SCDs Patient is getting hemodialy sis today AV fistula, she reported arterial pressure is high, awaiting vascular surgery to check the fistula Wait AV fistula check DC per vascular clearance at 1418 RPT #:[id number] END OF REPORT 2022-04-29 10:20:00-00:00 [facility] REPORT#:[id number] REPORT STATUS: Signed DATE:04/29/22 TIME: 1020 PATIENT: PAOLA MISHRA UNIT #: [id number] ROOM/BED: [place] [address] : 57 AGE: 66 SEX: F ATTEND: Marcella Young MD ADM AUTHOR: Bryant Mosley [facility] * ALL edits or amendments must be made on the el [employer]/computer document * Vancomycin Vancomycin Medication Therapy Goal: trough 15-20 mcg/mL Indication for treatment: SSTI Site of infection: known Current therapy: Medication(s) Ordered: Anti-Infective Agents Sig/Mane Start time Last Medication Dose Route Stop Time Status Admin Oseltamivir Phosphate 30 MG MOWEFR 04/25 1545 P NDr PO 05/03 1546 Vancomycin HCl 1,250 MG ONCE ONE 04/25 1535 AC Sodium Chloride 250 ML IV 04/25 1649 Cefepime HCl 1 GM Q24H 04/25 1400 AC 04/25 Sodium Chloride 10 ML IV 05/02 1359 1427 Miscellaneous 1 EACH ASDIR 04/25 1400 CKD Information IV 05/25 1359 Miscellaneous 1 EACH ASDIR 04/25 1400 DC Information IV 05/25 1359 Day of therapy: 5 Weight: Actual weight (kg): 54.545 VS and I/O: Vital Signs Date Temp Pulse Resp B/P B/P Mean Pulse Ox FiO2 04/26-04/29 36.1-37.4 65-84 12- 98-149/53-73 73-91.8 93-100 72 hours ending at 04/29 07 1900 Intake 200 250 Total Output 2684 3100 Total Balance 200 -2684 -3100 250 Intake, 200 Oral Intake, 250 Other Output, 2684 3100 Hemodialys is 72 Hour I O Total 04/29 Intake Total 200 250 Output Total 2684 3100 Balance -2484 -2850 Last dialysis session: Date: 04/28/22 Drug admin history: Lab Lab Level SCr Info Clinical Laboratory Technologist Med Dose Inter action/Dialysis Date/Time Date/Time Notes: Treatment plan: consult, cont current regimen/do se Rationale: This is a 66-year-old female with a history of e nd-stage renal disease, on hemodialysis Tuesday, ay and Tuesday; hypertension, diabetes, admitted from vascular surgeon, Dr. Francois's office, f or clotted AV fistula. The patient had hemodialysis on Tuesday, unable to get the dialys is on Tuesday because of thrombosed AV fistula. She denies any active com plaint. She has right heel pain with open wound for the past 3 weeks. She i s being followed up by assistant kitchen manager. Pharmacy consulted to manage vancomy nereyda. Consulting Provider: Erick Indication: SSTI Goal: Pre-HD 15-20 mcg/mL Concurrent Abx: Cefepime 1gm q24h, oseltamavir 04/29 A/P: * afebrile, WBC 5 * Micro: 04/23 Bcx - NG72h, 04/24 wound cx - many CoNS, 04/25 Influenza type A - positive * Imagin/24 ankle XR - no osteomyelitis * Renal: ESRD on HD MWF, Last HD on 04/28 * Regimen: Day 5. Received 500 mg maintenance do se 04/28 post HD. * Plan/Monitoring: Continue 500 mg post HD. Pre-HD random vanc level due 05/03. * Pharmacy will continue to follow and monitor. Electronically Signed by Bryant Mosley [facility] on 04/29 at 1023 RPT #:[id number] END OF REPORT 2022-04-29 07:42:00-00:00 [facility] Nephrology Progress Note REPORT#:[id number] REPORT STATUS: Signed DATE:04/29/22 TIME: 07 PATIENT: PAOLA MISHRA UNIT #: [id number] ROOM/BED: [place] [address] : 57 AGE: 66 SEX: F ATTEND: Marcella Young MD ADM AUTHOR: Demetrius Barraza MD * ALL edits or amendments must be made on the [employer]/computer document * Subjective Chief complaint: Clotted AVF HPI: Patient seen and evaluated, discussed with care team, 66-year-old female with history of end-stage renal d isease on chronic hemodialysis Tuesday and Tuesday, hypertension and diabetes [facility] who presented to the emergency room today with a clotted AV fistula. Last reported h emodialysis was on Tuesday. Patient also has right heel pain and wound for about 3 weeks. She denies fever, chills, nausea, vomiting or other complaints. He r laboratories showed sodium 129, potassium 6, CO2 24, BUN 81, creati nine 11, glucose 273, hemoglobin 11.4, platelet 221, blood count 5.5. Renal consult was requested for management of her end-stage renal disease/hemodialysis. Patient reports: Yes: complaints. Comments: Patient seen and evaluated, HPI no change from i nitial, feels okay. Review of Systems Constitutional: Reports: fatigue. Denies: chills, fever. Skin: Denies: abrasion, bruising. Allergy/Immun: Denies: hives, itching. Eyes: Denies: redness, discharge. ENT: Denies: ear drainage, ear ringing. Respiratory: Denies: hemoptysis, SOB. Cardiovascular: Denies: chest pain. Objective General VS/I O: Vital Signs: Date Time Temp Pulse Resp B/P B/P Pulse O2 O2 F low FiO2 Mean Ox Delivery Rate 04/29 0403 37.0 73 17 130/63 85.2 97 Room air 04/28 2305 37.0 78 15 110/58 75.2 97 Room air 04/28 1951 37.4 71 14 113/56 75.2 94 Room air 04/28 1615 36.3 82 18 103/63 76.8 97 Room air 04/28 1308 36.7 67 18 107/57 Room air 04/28 1054 36.3 73 15 105/58 73 98 04/28 1046 36.7 67 18 98/53 24 hour I O ending at 0700: 04/29 0700 04/28 1900 Intake Total 200 Output Total 2684 Balance 200 -2684 Intake, Oral 200 Output, 2684 Hemodialysis PATIENT WEIGHT: Weight (lb): Weight (oz): Weight (kg): 54.545 Medications Active Meds + DC'd Last 24 Hrs Vancomycin HCl (VANCOMYCIN HCL) 500 MG ONCE ONE IV (DC) Sodium Chloride (SODIUM CHLORIDE 0.9% 100 ML) 1 00 ML Clopidogrel Bisulfate (Plavix) 75 MG DAILY PO Dextrose/Water (DEXTROSE 10% IN WATER) 125 ML DIR PRN IV (CKD) Dextrose/Water (DEXTROSE 10% IN WATER) 250 ML DIR PRN IV (CKD) Glucagon (GLUCAGON) 1 MG ASDIR PRN IM Acetaminophen (TYLENOL EXTRA STRENGTH) 1,000 MG PREOP ONCALL PO (CKD) Gabapentin (NEURONTIN) 200 MG PREOP ONCALL PO (C KD) Oseltamivir Phosphate (TAMIFLU) 30 MG MOWEFR PO Cefepime HCl (MAXIPIME) 1 GM Q24H IV Sodium Chloride (SODIUM CHLORIDE) 10 ML Miscellaneous Information (VANCOMYCIN PHARMACY T O DOSE) 1 EACH ASDIR IV (CKD) Silver Sulfadiazine (SILVADENE 1% 50 GM CREAM) 1 APPLIC AC BK TOPICAL Insulin Human Lispro (HUMALOG) 0 AC HS SUBQ Amlodipine Besylate (NORVASC) 10 MG DAILY PO Cholecalciferol (VITAMIN D) 2,000 INTL.UNITS CARMENZA LY PO (CKD) Gabapentin (NEURONTIN) 100 MG DAILY PO Pantoprazole (PROTONIX) 40 MG DAILY PO Atorvastatin Calcium (LIPITOR) 20 MG BEDTIME PO Tacrolimus (PROGRAF) 1 MG BID PO Albumin Human (ALBUMINAR-25%) 12.5 GM ASDIR PRN IV Heparin Sodium (Porcine) (HEPARIN SODIUM) 3,000 UNIT ASDIR PRN DIALYSIS Lidocaine HCl (LIDOCAINE HCL/PF) 0.5 ML ASDIR MO N I-DERMAL (CKD) Mannitol (MANNITOL 25% 12.5GM/50ML) 12.5 GM ASDI R PRN IV Sodium Chloride (SODIUM CHLORIDE 0.9%) 2,000 ML ASDIR PRN IV Sodium Chloride (SODIUM CHLORIDE) 5 ML ASDIR PRN IV Sodium Chloride (SODIUM CHLORIDE) 10 ML ASDIR MO N IV Sodium Chloride (SODIUM CHLORIDE 0.9%) 250 ML DIR PRN IV Acetaminophen (TYLENOL) 650 MG Q4H PRN PRN PO Acetaminophen/Codeine Phosphate (TYLENOL W CODEI NE NO.3) 1 TAB Q4H PRN PRN PO (DC) Clonidine HCl (CATAPRES) 0.1 MG TID PRN PO Docusate Sodium (COLACE) 100 MG BID PRN PRN PO Hydralazine HCl (APRESOLINE) 10 MG Q6H PRN PRN I V Hydrocodone Bitart/Acetaminophen (NORCO 5/325) 1 TAB Q6H PRN PRN PO (DC) Zolpidem Tartrate (AMBIEN) 5 MG BEDTIME PRN PRN PO Physical Exam General appearance: alert, no acute distress Head/eyes: atraumatic, normocephalic ENT: normal nose Neck: non-tender, supple/no meningismus Cardiovascular: normal heart sounds, no rub Respiratory: aerating well, symmetric expansion Abdomen: non-tender, soft Genitourinary: no flank pain Extremities: pitting edema, non-tender Musculoskeletal: no CVA tenderness, no tendernes s Neuro/VACATION GUIDE: alert, normal speech Skin: dry, intact Results Findings/Data: Laboratory Tests 04/28 04/28 04/28 04/28 04/28 1952 1616 1052 0708 0600 Chemistry Sodium (134 - 147 mEq/L) 134 Potassium (3.4 - 5.0 mEq/L) 4.4 Chloride (100 - 108 mEq/L) 96 L Carbon Dioxide (21 - 33 mEq/l) 24 Anion Gap (0 - 20) 19 BUN (7 - 18 mg/dL) 34 H Creatinine (0.6 - 1.3 mg/dL) 7.6 H Glomerular Filtr Rate (80 - 90) 5.4 L Glucose (70 - 110 mg/dL) 234 H POC Glucose (70 - 110 MG/DL) 223 H 160 H 192 H 229 H Calcium (8.0 - 10.5 mg/dL) 7.7 L Phosphorus (2.5 - 4.9 MG/DL) 7.4 H Magnesium (1.80 - 2.40 mg/dL) 2.22 04/27 1705 1131 0712 0500 Chemistry Sodium (134 - 147 mEq/L) 138 Potassium (3.4 - 5.0 mEq/L) 4.2 Chloride (100 - 108 mEq/L) 96 L Carbon Dioxide (21 - 33 mEq/l) 25 Anion Gap (0 - 20) 21 H BUN (7 - 18 mg/dL) 22 H Creatinine (0.6 - 1.3 mg/dL) 5.9 H Glomerular Filtr Rate (80 - 90) 7.2 L Glucose (70 - 110 mg/dL) 231 H POC Glucose (70 - 110 MG/DL) 316 H 158 H 234 H 207 H Calcium (8.0 - 10.5 mg/dL) 8.4 04/26 1540 Chemistry POC Glucose (70 - 110 MG/DL) 120 H Laboratory Tests 04/28 04/27 0600 0500 Hematology WBC (4.5 - 11.0 x10 3/uL) 5.0 3.2 L RBC (3.54 - 5.02 x10 6/uL) 4.61 5.07 H Hgb (11.0 - 15.0 g/dL) 11.6 12.5 Hct (33.0 - 45.0 %) 38.3 41.6 MCV (81.0 - 99.0 fL) 83.1 82.1 MCH (27.0 - 33.0 pg) 25.2 L 24.7 L MCHC (33.0 - 37.0 g/dL) 30.3 L 30.0 L RDW (11.5 - 14.5 %) 17.8 H 17.4 H Plt Count (150 - 400 x10 3/uL) 230 197 MPV (7.0 - 9.0 fL) 11.0 H 10.2 H Neut % (Auto) (56.0 - 77.0 %) 68.9 75.1 Lymph % (Auto) (14.0 - 32.0 %) 18.9 14.2 [place] % (Auto) (4.8 - 9.0 %) 10.2 H 10.1 H Eos % (Auto) (0.3 - 3.7 %) 1.2 0.0 L Baso % (Auto) (0.0 - 2.0 %) 0.6 0.3 Neut # (Auto) (2.0 - 7.6 x10 3/uL) 3.46 2.38 Lymph # (Auto) (1.0 - 3.8 x10 3/uL) 0.95 L 0.4 5 L [place] # (Auto) (0.1 - 0.8 x10 3/uL) 0.51 0.32 Eos # (Auto) (0.0 - 0.2 x10 3/uL) 0.06 0.00 Baso # (Auto) (0.0 - 0.2 x10 3/uL) 0.03 0.01 Abs Immat Gran (auto) (0.00 - 0.03 x10 3/uL) 0. 01 0.01 Add Manual Diff NO NO Immature Gran % (0.0 - 2.0 %) 0.2 0.3 Nucleated RBC % (0 - 0 %) 0.0 0.0 Nucleated RBCs # (Man) (0.0 - 0.1 x10 3/uL) 0.0 0 0.00 Laboratory Tests 04/28 0600 Toxicology Vancomycin Trough (10.0 - 20.0 mcg/mL) 19.6 Laboratory Tests 04/28 04/28 04/28 1952 1616 1052 Chemistry POC Glucose (70 - 110 MG/DL) 223 H 160 H 192 H Diagnosis, Assessment Plan Free Text A P: Patient seen and evaluated, discussed with care team, images and laboratories reviewed. History of hypertension: Monitor blood p ressure closely and adjust medications as needed Diabetes mellitus: Insulin: Monitor bloo d sugar closely adjust insulin dose as needed. End-stage renal disease on chronic hemod ialysis, Tuesday, Tuesday and Tuesday, last reported hemodialysis was on Tuesday. Clotted AV fistula: Vascular surgery was consult ed. Hyperkalemia: Discussed with vascular surgery, w ill place temporary dialysis catheter, plan for hemodialy sis for 2 hours tonight followed by full session in the morning. 04/24/2022 status post acute dialysis catheter placement and dialysis for 2 hours last night, plan for dialysis today, 4 hours, 2K , ultrafiltration 2 to 3 L if tolerated. Hemoglobin this morning 11.7, platele t 226, blood count 3.5, seen during HD. 04/25/2022 laboratories this morning showed sodiu m 139, potassium 3.8, CO2 26, creatinine 6.4, hemoglobin 12.4, platelet 179, b lood count 4.4, last hemodialysis on Tuesday, next hemodialysis for Tuesday. 04/26/2022 laboratory this morning showed sodium 139, potassium 4.2, CO2 23, creatinine 8.8, hemoglobin 12, platelet 202, whi te blood count 4.3. Plan for hemodialysis today, 4 hours, 3K, ultrafiltration 2 to 3 L as tolerated. 04/27/2022 status post hemodialysis yesterday, st atus post AV fistula thrombectomy and lower extremity angiogram and i ntervention, hemoglobin this morning 12.5, platelet 197, blood count 3.2, oanh n for dialysis in the morning 04/28/2022 laboratory this mo rning still pending, plan for hemodialysis today, 4 hours, 2K, ultrafiltration 2 to 3 L, will use AV fistula today if no issues will remove acute dialysis catheter. 04/29/2022 status post hemodialysis yesterday, beulah sánchez had high arterial pressures during dialysis, vascular surgery was contacted, recommended not removing acute catheter until AV fistula functio n is resolved. Electronically Signed by Demetrius Barraza MD on at [address] [facility] #:[id number] END OF REPORT 2022-04-28 19:28:00-00:00 [facility]) Podiatry Progress Note REPORT#:[id number] REPORT STATUS: Signed DATE:04/28/22 TIME: 1927 PATIENT: PAOLA MISHRA UNIT #: [id number] ROOM/BED: [place] [address] : 57 AGE: 66 SEX: F ATTEND: Marcella Young MD ADM AUTHOR: Delma Saucedo DPM * ALL edits or amendments must be made on the el [employer]/computer document * Subjective Patient reports: no complaints Objective General VS: Last Documented: Result Date Time Pulse Ox 97 04/28 161 B/P 103/63 04/28 161 B/P Mean 76.8 04/28 161 O2 Delivery Room air 04/28 1615 Temp 36.3 04/28 1615 Pulse 82 04/28 161 Resp 18 04/28 1615 PATIENT WEIGHT: Weight (lb): Weight (oz): Weight (kg): 54.545 Medications: Active Meds + DC'd Last 24 Hrs Vancomycin HCl (VANCOMYCIN HCL) 500 MG ONCE ONE IV (DC) Sodium Chloride (SODIUM CHLORIDE 0.9% 100 ML) 1 00 ML Clopidogrel Bisulfate (Plavix) 75 MG DAILY PO Dextrose/Water (DEXTROSE 10% IN WATER) 125 ML DIR PRN IV (CKD) Dextrose/Water (DEXTROSE 10% IN WATER) 250 ML DIR PRN IV (CKD) Glucagon (GLUCAGON) 1 MG ASDIR PRN IM Acetaminophen (TYLENOL EXTRA STRENGTH) 1,000 MG PREOP ONCALL PO (CKD) Gabapentin (NEURONTIN) 200 MG PREOP ONCALL PO (C KD) Oseltamivir Phosphate (TAMIFLU) 30 MG MOWEFR PO Cefepime HCl (MAXIPIME) 1 GM Q24H IV Sodium Chloride (SODIUM CHLORIDE) 10 ML Miscellaneous Information (VANCOMYCIN PHARMACY T O DOSE) 1 EACH ASDIR IV (CKD) Silver Sulfadiazine (SILVADENE 1% 50 GM CREAM) 1 APPLIC AC BK TOPICAL Insulin Human Lispro (HUMALOG) 0 AC HS SUBQ Amlodipine Besylate (NORVASC) 10 MG DAILY PO Cholecalciferol (VITAMIN D) 2,000 INTL.UNITS CARMENZA LY PO (CKD) Gabapentin (NEURONTIN) 100 MG DAILY PO Pantoprazole (PROTONIX) 40 MG DAILY PO Atorvastatin Calcium (LIPITOR) 20 MG BEDTIME PO Tacrolimus (PROGRAF) 1 MG BID PO Albumin Human (ALBUMINAR-25%) 12.5 GM ASDIR PRN IV Heparin Sodium (Porcine) (HEPARIN SODIUM) 3,000 UNIT ASDIR PRN DIALYSIS Lidocaine HCl (LIDOCAINE HCL/PF) 0.5 ML ASDIR MO N I-DERMAL (CKD) Mannitol (MANNITOL 25% 12.5GM/50ML) 12.5 GM ASDI R PRN IV Sodium Chloride (SODIUM CHLORIDE 0.9%) 2,000 ML ASDIR PRN IV Sodium Chloride (SODIUM CHLORIDE) 5 ML ASDIR MO N IV Sodium Chloride (SODIUM CHLORIDE) 10 ML ASDIR MO N IV Sodium Chloride (SODIUM CHLORIDE 0.9%) 250 ML DIR PRN IV Acetaminophen (TYLENOL) 650 MG Q4H PRN PRN PO Acetaminophen/Codeine Phosphate (TYLENOL W CODEI NE NO.3) 1 TAB Q4H PRN PRN PO (DC) Clonidine HCl (CATAPRES) 0.1 MG TID PRN PO Docusate Sodium (COLACE) 100 MG BID PRN PRN PO Hydralazine HCl (APRESOLINE) 10 MG Q6H PRN PRN I V Hydrocodone Bitart/Acetaminophen (NORCO 5/325) 1 TAB Q6H PRN PRN PO (DC) Zolpidem Tartrate (AMBIEN) 5 MG BEDTIME PRN PRN PO Dietitian nutrition assessment The data set between the solid lines has been im ported from the dietitian's assessment. BMI Calculated: 22.7 Nutrition related diagnosis: Nutrition diagnosis details: Nutrition problem: Nutrition etiology: Nutrition signs and symptoms: Nutrition prescription: Dietitian name: Assessment completed: Physical Exam Wound/incision: Location: Posterior plantar lateral heel right foot Extremities: Left moves all, Left no cyanosis, Left abnormal capillary refill, Left cool, Left decreased range of motion, Right moves all, Right no cyanosis, Right abnormal capillary refill, Right cool, Right dec reased range of motion LE vascular pulse assess: Nonpalpable R posterior tibialis, Nonpalpable L posterior tibialis, 1+ R dorsalis pedis, 1+ L dorsalis pedis Reflex testing: Monofilament: DIM Toes, DIM Ball of foot, DIM Arch, DIM Heel Reflexes: Achilles: 2+ Babinski: 0 Musculoskeletal: Musculoskeletal: decreased ROM, pain on palpati on to ulcerative site right heel Neuro/VACATION GUIDE: alert, oriented X 3, sensory deficit Skin: cool, erythema Ulcer: Location: heel (right foot) Type: pressure Appearance: granulation tissue, slough Drainage: serosanguineous, mild Depth: muscle w/out necrosis Debo wound: cool, dry, erythema Stage (pressure): 4 Results Findings/Data: Laboratory Tests: 04/28 04/28 04/28 04/28 1616 1052 0708 0600 Chemistry Sodium (134 - 147 mEq/L) 134 Potassium (3.4 - 5.0 mEq/L) 4.4 Chloride (100 - 108 mEq/L) 96 L Carbon Dioxide (21 - 33 mEq/l) 24 Anion Gap (0 - 20) 19 BUN (7 - 18 mg/dL) 34 H Creatinine (0.6 - 1.3 mg/dL) 7.6 H Glomerular Filtr Rate (80 - 90) 5.4 L Glucose (70 - 110 mg/dL) 234 H POC Glucose (70 - 110 MG/DL) 160 H 192 H 229 H Calcium (8.0 - 10.5 mg/dL) 7.7 L Phosphorus (2.5 - 4.9 MG/DL) 7.4 H Magnesium (1.80 - 2.40 mg/dL) 2.22 Hematology WBC (4.5 - 11.0 x10 3/uL) 5.0 RBC (3.54 - 5.02 x10 6/uL) 4.61 Hgb (11.0 - 15.0 g/dL) 11.6 Hct (33.0 - 45.0 %) 38.3 MCV (81.0 - 99.0 fL) 83.1 MCH (27.0 - 33.0 pg) 25.2 L MCHC (33.0 - 37.0 g/dL) 30.3 L RDW (11.5 - 14.5 %) 17.8 H Plt Count (150 - 400 x10 3/uL) 230 MPV (7.0 - 9.0 fL) 11.0 H Neut % (Auto) (56.0 - 77.0 %) 68.9 Lymph % (Auto) (14.0 - 32.0 %) 18.9 [place] % (Auto) (4.8 - 9.0 %) 10.2 H Eos % (Auto) (0.3 - 3.7 %) 1.2 Baso % (Auto) (0.0 - 2.0 %) 0.6 Neut # (Auto) (2.0 - 7.6 x10 3/uL) 3.46 Lymph # (Auto) (1.0 - 3.8 x10 3/uL) 0.95 L [place] # (Auto) (0.1 - 0.8 x10 3/uL) 0.51 Eos # (Auto) (0.0 - 0.2 x10 3/uL) 0.06 Baso # (Auto) (0.0 - 0.2 x10 3/uL) 0.03 Abs Immat Gran (auto) (0.00 - 0.03 x10 3/uL) 0. 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 All questions answered to their understanding. Placed orders for baseline x-rays 3 views right foot VASCULAR EVAL. Continue IV abx, final wound culture and sensiti vity Continue with wound care: Cleanse wound right he el with vashe followed by application of silvadene cream and DSD once te y. Continue with Prevalon boots. Will continue to follow. Electronically Signed by Delma Saucedo DPM on 09/22 at 7269 RPT #:[id number] END OF REPORT 2022-04-28 13:39:00-00:00 [facility] ([facility]) Infectious Dis. Progress Note REPORT#:[id number] REPORT STATUS: Signed DATE:04/28/22 TIME: 1339 PATIENT: PAOLA MISHRA UNIT #: [id number] ROOM/BED: 6605-1 : 57 AGE: 66 SEX: F ATTEND: Marcella Young MD ADM AUTHOR: Kailey Contreras MD, MD * ALL edits or amendments must be made on the [employer]/computer document * Subjective Chief complaint: Right heel gangrene HPI: The patient is a 66-year-old female wit h past medical history significant for hypertensio n, diabetes, end-stage renal disease, on dialysis on Tuesday, Tuesday and , admitted to [facility] with a clotted AV fistula. The patient also had reported right heel wound with purulent drainage and complai nt of right heel pain. On admission to the hospital, nephrology was consulted and the p atient was started on vancomycin, and Infectious D isease is consulted for evaluation of fever. At the time of my consultation, the patient is lying in bed, reports fevers and chills for last 24 hours. The patie nt reports that she has taken Moderna COVID vaccine with booster. She is not sure as to whether she has taken flu shot. Does report chills and body aches. Reports ri ght heel severe foul smelling drainage and pain. Patient reports: No: complaints. Review of Systems Constitutional: Denies: chills, fatigue. Skin: Denies: abrasion, bruising. Allergy/Immun: Denies: allergic reaction, anaphylaxis. Eyes: Denies: redness, discharge. ENT: Denies: ear drainage, earache. Respiratory: Denies: [place] (dyspnea on exertion), hemoptysis. Objective General VS/I O: Vital Signs Date Temp Pulse Resp B/P B/P Mean Pulse Ox FiO2 04/27-04/28 97.3-98.4 65-73 15-18 98-146/53-70 73-91.6 93-98 Last Documented: Result Date Time B/P 107/57 04/28 1308 O2 Delivery Room air 04/28 1308 Temp 98.1 04/28 1308 Pulse 67 04/28 1308 Resp 18 04/28 1308 Pulse Ox 98 04/28 1054 B/P Mean 73 04/28 1054 Vital Signs: Date Time Temp Pulse Resp B/P B/P Pulse O2 O2 F low FiO2 Mean Ox Delivery Rate 04/28 1308 98.1 67 18 107/57 Room air 04/28 1054 97.3 73 15 105/58 73 98 04/28 1046 98.0 67 18 98/53 04/28 0707 97.9 67 18 118/63 81.2 95 Room air 04/28 0337 98.2 65 18 134/70 91.6 96 Room air 04/27 2323 98.4 70 18 119/61 80.4 93 Room air 04/27 2030 98.1 69 18 146/62 90.3 98 Room air PATIENT WEIGHT: Weight (lb): Weight (oz): Weight (kg): 54.545 Medications: Active Meds + DC'd Last 24 Hrs Vancomycin HCl (VANCOMYCIN HCL) 500 MG ONCE ONE IV Sodium Chloride (SODIUM CHLORIDE 0.9% 100 ML) 1 00 ML Clopidogrel Bisulfate (Plavix) 75 MG DAILY PO Dextrose/Water (DEXTROSE 10% IN WATER) 125 ML DIR PRN IV (CKD) Dextrose/Water (DEXTROSE 10% IN WATER) 250 ML A SDIR PRN IV (CKD) Glucagon (GLUCAGON) 1 MG ASDIR PRN IM Acetaminophen (TYLENOL EXTRA STRENGTH) 1,000 MG PREOP ONCALL PO (CKD) Gabapentin (NEURONTIN) 200 MG PREOP ONCALL PO (C KD) Oseltamivir Phosphate (TAMIFLU) 30 MG MOWEFR PO Cefepime HCl (MAXIPIME) 1 GM Q24H IV Sodium Chloride (SODIUM CHLORIDE) 10 ML Miscellaneous Information (VANCOMYCIN PHARMACY T O DOSE) 1 EACH ASDIR IV (CKD) Silver Sulfadiazine (SILVADENE 1% 50 GM CREAM) 1 APPLIC AC BK TOPICAL Insulin Human Lispro (HUMALOG) 0 AC HS SUBQ Amlodipine Besylate (NORVASC) 10 MG DAILY PO Cholecalciferol (VITAMIN D) 2,000 INTL.UNITS CARMENZA LY PO (CKD) Gabapentin (NEURONTIN) 100 MG DAILY PO Pantoprazole (PROTONIX) 40 MG DAILY PO Atorvastatin Calcium (LIPITOR) 20 MG BEDTIME PO Tacrolimus (PROGRAF) 1 MG BID PO Albumin Human (ALBUMINAR-25%) 12.5 GM ASDIR PRN IV Heparin Sodium (Porcine) (HEPARIN SODIUM) 3,000 UNIT ASDIR PRN DIALYSIS Lidocaine HCl (LIDOCAINE HCL/PF) 0.5 ML ASDIR MO N I-DERMAL (CKD) Mannitol (MANNITOL 25% 12.5GM/50ML) 12.5 GM ASDI R PRN IV Sodium Chloride (SODIUM CHLORIDE 0.9%) 2,000 ML ASDIR PRN IV Sodium Chloride (SODIUM CHLORIDE) 5 ML ASDIR PRN IV Sodium Chloride (SODIUM CHLORIDE) 10 ML ASDIR MO N IV Sodium Chloride (SODIUM CHLORIDE 0.9%) 250 ML DIR PRN IV Acetaminophen (TYLENOL) 650 MG Q4H PRN PRN PO Acetaminophen/Codeine Phosphate (TYLENOL W CODEI NE NO.3) 1 TAB Q4H PRN PRN PO Clonidine HCl (CATAPRES) 0.1 MG TID PRN PO Docusate Sodium (COLACE) 100 MG BID PRN PRN PO Hydralazine HCl (APRESOLINE) 10 MG Q6H PRN PRN I V Hydrocodone Bitart/Acetaminophen (NORCO 5/325) 1 TAB Q6H PRN PRN PO Zolpidem Tartrate (AMBIEN) 5 MG BEDTIME PRN PRN PO Physical Exam General appearance: no acute distress Head/Eyes: atraumatic, normocephalic Neck: non-tender, supple/no meningismus Cardiovascular: normal heart sounds, no murmur Respiratory: clear to auscultation, symmetric ex pansion Abdomen: non-tender, soft Extremities: no clubbing Skin: gangrene (R heel wet gangrene) Results Findings/Data: Laboratory Tests 04/28 04/28 04/28 04/27 04/27 1052 0708 0600 2027 1705 Chemistry Sodium (134 - 147 mEq/L) 134 Potassium (3.4 - 5.0 mEq/L) 4.4 Chloride (100 - 108 mEq/L) 96 L Carbon Dioxide (21 - 33 mEq/l) 24 Anion Gap (0 - 20) 19 BUN (7 - 18 mg/dL) 34 H Creatinine (0.6 - 1.3 mg/dL) 7.6 H Glomerular Filtr Rate (80 - 90) 5.4 L Glucose (70 - 110 mg/dL) 234 H POC Glucose (70 - 110 MG/DL) 192 H 229 H 316 H 158 H Calcium (8.0 - 10.5 mg/dL) 7.7 L Phosphorus (2.5 - 4.9 MG/DL) 7.4 H Magnesium (1.80 - 2.40 mg/dL) 2.22 Laboratory Tests 04/28 0600 Hematology WBC (4.5 - 11.0 x10 3/uL) 5.0 RBC (3.54 - 5.02 x10 6/uL) 4.61 Hgb (11.0 - 15.0 g/dL) 11.6 Hct (33.0 - 45.0 %) 38.3 MCV (81.0 - 99.0 fL) 83.1 MCH (27.0 - 33.0 pg) 25.2 L MCHC (33.0 - 37.0 g/dL) 30.3 L RDW (11.5 - 14.5 %) 17.8 H Plt Count (150 - 400 x10 3/uL) 230 MPV (7.0 - 9.0 fL) 11.0 H Neut % (Auto) (56.0 - 77.0 %) 68.9 Lymph % (Auto) (14.0 - 32.0 %) 18.9 [place] % (Auto) (4.8 - 9.0 %) 10.2 H Eos % (Auto) (0.3 - 3.7 %) 1.2 Baso % (Auto) (0.0 - 2.0 %) 0.6 Neut # (Auto) (2.0 - 7.6 x10 3/uL) 3.46 Lymph # (Auto) (1.0 - 3.8 x10 3/uL) 0.95 L [place] # (Auto) (0.1 - 0.8 x10 3/uL) 0.51 Eos # (Auto) (0.0 - 0.2 x10 3/uL) 0.06 Baso # (Auto) (0.0 - 0.2 x10 3/uL) 0.03 Abs Immat Gran (auto) (0.00 - 0.03 x10 3/uL) 0. 01 Add Manual Diff NO Immature Gran % (0.0 - 2.0 %) 0.2 Nucleated RBC % (0 - 0 %) 0.0 Nucleated RBCs # (Man) (0.0 - 0.1 x10 3/uL) 0.0 0 Laboratory Tests 04/28 0600 Toxicology Vancomycin Trough (10.0 - 20.0 mcg/mL) 19.6 Results: labs reviewed, patrick l signs reviewed, x-ray personally reviewed, current med profile rev'd Treatment Prophylaxis Treatment Prophylaxis Lines: L arm HD AVF CVC/PICC documentation: The data below has been imported from nursing do cumentation. Any exceptions have been noted below under Provider comments. CVC/PICC insertion date/time: Dialysis catheter triple Internal jugular Right Inserted 04/23/22 2100 Provider comments on imported nursing data: [] Diagnosis, Assessment Plan Problem List/A P: 1. End stage renal disease 2. Dialysis AV fistula malfunction 3. Gangrene of right foot 4. Influenza A 5. Diabetic neuropathy Free Text A P: on Tamiflu 5-day course for Flu A R heel diabetic wet gangrene, no abscess or Oste omyelitis on MRI 04/26 CoNS on culture 04/24 s/p L arm HD AVF and R leg trombectomies and ang ioplasties 04/26 On Vanc and cefepime Ok to DC on 2-wek Doxycycline Podiatry following will follow Electronically Signed by Kailey Contreras MD, MD on at 1340 RPT #:[id number] END OF REPORT 2022-04-28 12:08:00-00:00 [facility] Prog. Note REPORT#:[id number] REPORT STATUS: Signed DATE:04/28/22 TIME: 1208 PATIENT: PAOLA MISHRA UNIT #: [id number] ROOM/BED: [place] [address] : 57 AGE: 66 SEX: F ATTEND: Marcella Young MD ADM AUTHOR: Marcella Stewart MD * ALL edits or amendments must be made on the el [employer]/computer document * Subjective Chief complaint: Feeling okay No distress Getting hemodialysis Review of Systems Constitutional: Reports: generalized weakness. All systems rev neg: except as marked Objective General VS/I O: Vital Signs Date Temp Pulse Resp B/P B/P Mean Pulse Ox FiO2 04/27-04/28 97.3-98.4 65-73 15-18 98-146/53-70 73-91.6 93-98 Last Documented: Result Date Time Pulse Ox 98 04/28 1054 B/P 105/58 04/28 1054 B/P Mean 73 04/28 1054 Temp 97.3 04/28 1054 Pulse 73 04/28 1054 Resp 15 04/28 1054 O2 Delivery Room air 04/28 0707 PATIENT WEIGHT: Weight (lb): Weight (oz): Weight (kg): 54.545 Medications: Active Meds + DC'd Last 24 Hrs Vancomycin HCl (VANCOMYCIN HCL) 500 MG ONCE ONE IV Sodium Chloride (SODIUM CHLORIDE 0.9% 100 ML) 1 00 ML Clopidogrel Bisulfate (Plavix) 75 MG DAILY PO Dextrose/Water (DEXTROSE 10% IN WATER) 125 ML DIR PRN IV (CKD) Dextrose/Water (DEXTROSE 10% IN WATER) 250 ML DIR PRN IV (CKD) Glucagon (GLUCAGON) 1 MG ASDIR PRN IM Acetaminophen (TYLENOL EXTRA STRENGTH) 1,000 MG PREOP ONCALL PO (CKD) Gabapentin (NEURONTIN) 200 MG PREOP ONCALL PO (C KD) Oseltamivir Phosphate (TAMIFLU) 30 MG MOWEFR PO Cefepime HCl (MAXIPIME) 1 GM Q24H IV Sodium Chloride (SODIUM CHLORIDE) 10 ML Miscellaneous Information (VANCOMYCIN PHARMACY T O DOSE) 1 EACH ASDIR IV (CKD) Silver Sulfadiazine (SILVADENE 1% 50 GM CREAM) 1 APPLIC AC BK TOPICAL Insulin Human Lispro (HUMALOG) 0 AC HS SUBQ Amlodipine Besylate (NORVASC) 10 MG DAILY PO Cholecalciferol (VITAMIN D) 2,000 INTL.UNITS CARMENZA LY PO (CKD) Gabapentin (NEURONTIN) 100 MG DAILY PO Pantoprazole (PROTONIX) 40 MG DAILY PO Atorvastatin Calcium (LIPITOR) 20 MG BEDTIME PO Tacrolimus (PROGRAF) 1 MG BID PO Albumin Human (ALBUMINAR-25%) 12.5 GM ASDIR PRN IV Heparin Sodium (Porcine) (HEPARIN SODIUM) 3,000 UNIT ASDIR PRN DIALYSIS Lidocaine HCl (LIDOCAINE HCL/PF) 0.5 ML ASDIR MO N I-DERMAL (CKD) Mannitol (MANNITOL 25% 12.5GM/50ML) 12.5 GM ASDI R PRN IV Sodium Chloride (SODIUM CHLORIDE 0.9%) 2,000 ML ASDIR PRN IV Sodium Chloride (SODIUM CHLORIDE) 5 ML ASDIR PRN IV Sodium Chloride (SODIUM CHLORIDE) 10 ML ASDIR MO N IV Sodium Chloride (SODIUM CHLORIDE 0.9%) 250 ML DIR PRN IV Acetaminophen (TYLENOL) 650 MG Q4H PRN PRN PO Acetaminophen/Codeine Phosphate (TYLENOL W CODEI NE NO.3) 1 TAB Q4H PRN PRN PO Clonidine HCl (CATAPRES) 0.1 MG TID PRN PO Docusate Sodium (COLACE) 100 MG BID PRN PRN PO Hydralazine HCl (APRESOLINE) 10 MG Q6H PRN PRN I V Hydrocodone Bitart/Acetaminophen (NORCO 5/325) 1 TAB Q6H PRN PRN PO Zolpidem Tartrate (AMBIEN) 5 MG BEDTIME PRN PRN PO Dietitian nutrition assessment The data set between the solid lines has been im ported from the dietitian's assessment. BMI Calculated: 22.7 Nutrition related diagnosis: Nutrition diagnosis details: Nutrition problem: Nutrition etiology: Nutrition signs and symptoms: Nutrition prescription: Dietitian name: Assessment completed: Physical Exam General appearance: alert, awake, oriented Head/eyes: atraumatic, EOMI, normal conjunctiva/ sclera ENT: moist mucosal membranes Neck: full range of motion, non-tender Cardiovascular: normal capillary refill, normal heart sounds, regular rate rhythm Respiratory: aerating well, clear to auscultatio n Abdomen: soft Musculoskeletal: full range of motion Neuro/VACATION GUIDE: alert, oriented X 3 Results Findings/Data: Laboratory Tests 04/28/22 06: [Embedded Image Not Available] Laboratory Tests 04/28 04/28 04/28 04/27 04/27 1052 0708 0600 2027 1705 Chemistry Sodium (134 - 147 mEq/L) 134 Potassium (3.4 - 5.0 mEq/L) 4.4 Chloride (100 - 108 mEq/L) 96 L Carbon Dioxide (21 - 33 mEq/l) 24 Anion Gap (0 - 20) 19 BUN (7 - 18 mg/dL) 34 H Creatinine (0.6 - 1.3 mg/dL) 7.6 H Glomerular Filtr Rate (80 - 90) 5.4 L Glucose (70 - 110 mg/dL) 234 H POC Glucose (70 - 110 MG/DL) 192 H 229 H 316 H 158 H Calcium (8.0 - 10.5 mg/dL) 7.7 L Phosphorus (2.5 - 4.9 MG/DL) 7.4 H Magnesium (1.80 - 2.40 mg/dL) 2.22 Laboratory Tests 04/28 06 Hematology WBC (4.5 - 11.0 x10 3/uL) 5.0 RBC (3.54 - 5.02 x10 6/uL) 4.61 Hgb (11.0 - 15.0 g/dL) 11.6 Hct (33.0 - 45.0 %) 38.3 MCV (81.0 - 99.0 fL) 83.1 MCH (27.0 - 33.0 pg) 25.2 L MCHC (33.0 - 37.0 g/dL) 30.3 L RDW (11.5 - 14.5 %) 17.8 H Plt Count (150 - 400 x10 3/uL) 230 MPV (7.0 - 9.0 fL) 11.0 H Neut % (Auto) (56.0 - 77.0 %) 68.9 Lymph % (Auto) (14.0 - 32.0 %) 18.9 [place] % (Auto) (4.8 - 9.0 %) 10.2 H Eos % (Auto) (0.3 - 3.7 %) 1.2 Baso % (Auto) (0.0 - 2.0 %) 0.6 Neut # (Auto) (2.0 - 7.6 x10 3/uL) 3.46 Lymph # (Auto) (1.0 - 3.8 x10 3/uL) 0.95 L [place] # (Auto) (0.1 - 0.8 x10 3/uL) 0.51 Eos # (Auto) (0.0 - 0.2 x10 3/uL) 0.06 Baso # (Auto) (0.0 - 0.2 x10 3/uL) 0.03 Abs Immat Gran (auto) (0.00 - 0.03 x10 3/uL) 0 .01 Add Manual Diff NO Immature Gran % (0.0 - 2.0 %) 0.2 Nucleated RBC % (0 - 0 %) 0.0 Nucleated RBCs # (Man) (0.0 - 0.1 x10 3/uL) 0.0 0 Laboratory Tests 04/28 0600 Toxicology Vancomycin Trough (10.0 - 20.0 mcg/mL) 19.6 Diagnosis, Assessment Plan Free Text DxA P Notes Free text DxA P notes: Fevers / influenza virus aVF malfunction Volume overload ESRD Right FOOT ulcer -Positive flu. Start Tamiflu?. Infectiou s disease consulted. As needed Tylenol -Dialysis catheter placed. Resume dialysis per n ephrology -Wound care per podiatry -replete elctrolytes -Blood sugars stable. SSI -Salt and fluid restriction. diurese if edema in creases. daily weights -prn zofran and antacids -allow diet -continue home BP meds. PRN hydralazine -prn stool softners -appreciate specialists help DVT prophylaxis with heparin/SCDs Patient is getting hemodialy sis today AV fistula, she reported arterial pressure is high, awaiting vascular surgery to check the fistula Wait AV fistula check DC per vascular clearance at [address] [facility] #:[id number] END OF REPORT 2022-04-28 06:41:00-00:00 [facility]L [facility] ([facility] Nephrology Progress Note REPORT#:[id number] REPORT STATUS: Signed DATE:04/28/22 TIME: 06 PATIENT: PAOLA MISHRA UNIT #: [id number] ROOM/BED: [place] [address] : 57 AGE: 66 SEX: F ATTEND: Marcella Young MD ADM AUTHOR: Demetrius Barraza MD * ALL edits or amendments must be made on the [employer]/computer document * Subjective Chief complaint: Clotted AVF HPI: Patient seen and evaluated, discussed with care team, 66-year-old female with history of end-stage renal d isease on chronic hemodialysis Tuesday and Tuesday, [facility] who presented to [facility] emergency room today with a clotted AV fistula. Last reported h emodialysis was on Tuesday. Patient also has right heel pain and wound for about 3 weeks. She denies fever, chills, nausea, vomiting or other complaints. He r laboratories showed sodium 129, potassium 6, CO2 24, BUN 81, creati nine 11, glucose 273, hemoglobin 11.4, platelet 221, blood count 5.5. Renal consult was requested for management of her end-stage renal disease/hemodialysis. Patient reports: Yes: complaints. Comments: Patient seen and evaluated, HPI no change from i nitial, feels okay. Review of Systems Constitutional: Reports: fatigue. Denies: chills, fever. Skin: Denies: abrasion, bruising. Allergy/Immun: Denies: hives, itching. Eyes: Denies: redness, discharge. ENT: Denies: ear drainage, ear ringing. Respiratory: Denies: hemoptysis, SOB. Cardiovascular: Denies: chest pain. Objective General VS/I O: Vital Signs: Date Time Temp Pulse Resp B/P B/P Pulse O2 O2 F low FiO2 Mean Ox Delivery Rate 04/28 0337 36.8 65 18 134/70 91.6 96 Room air 04/27 2323 36.9 70 18 119/61 80.4 93 Room air 04/27 2030 36.7 69 18 146/62 90.3 98 Room air 04/27 1130 36.3 73 16 125/67 86.1 04/27 0711 36.5 74 17 145/65 91.8 96 PATIENT WEIGHT: Weight (lb): Weight (oz): Weight (kg): 54.545 Medications Active Meds + DC'd Last 24 Hrs Clopidogrel Bisulfate (Plavix) 75 MG DAILY PO Dextrose/Water (DEXTROSE 10% IN WATER) 125 ML DIR PRN IV (CKD) Dextrose/Water (DEXTROSE 10% IN WATER) 250 ML DIR PRN IV (CKD) Glucagon (GLUCAGON) 1 MG ASDIR PRN IM Acetaminophen (TYLENOL EXTRA STRENGTH) 1,000 MG PREOP ONCALL PO (CKD) Gabapentin (NEURONTIN) 200 MG PREOP ONCALL PO (C KD) Oseltamivir Phosphate (TAMIFLU) 30 MG MOWEFR PO Cefepime HCl (MAXIPIME) 1 GM Q24H IV Sodium Chloride (SODIUM CHLORIDE) 10 ML Miscellaneous Information (VANCOMYCIN PHARMACY T O DOSE) 1 EACH ASDIR IV (CKD) Silver Sulfadiazine (SILVADENE 1% 50 GM CREAM) 1 APPLIC AC BK TOPICAL Insulin Human Lispro (HUMALOG) 0 AC HS SUBQ Amlodipine Besylate (NORVASC) 10 MG DAILY PO Cholecalciferol (VITAMIN D) 2,000 INTL.UNITS CARMENZA LY PO (CKD) Gabapentin (NEURONTIN) 100 MG DAILY PO Pantoprazole (PROTONIX) 40 MG DAILY PO Atorvastatin Calcium (LIPITOR) 20 MG BEDTIME PO Tacrolimus (PROGRAF) 1 MG BID PO Albumin Human (ALBUMINAR-25%) 12.5 GM ASDIR PRN IV Heparin Sodium (Porcine) (HEPARIN SODIUM) 3,000 UNIT ASDIR PRN DIALYSIS Lidocaine HCl (LIDOCAINE HCL/PF) 0.5 ML ASDIR MO N I-DERMAL (CKD) Mannitol (MANNITOL 25% 12.5GM/50ML) 12.5 GM ASDI R PRN IV Sodium Chloride (SODIUM CHLORIDE 0.9%) 2,000 ML ASDIR PRN IV Sodium Chloride (SODIUM CHLORIDE) 5 ML ASDIR PRN IV Sodium Chloride (SODIUM CHLORIDE) 10 ML ASDIR MO N IV Sodium Chloride (SODIUM CHLORIDE 0.9%) 250 ML DIR PRN IV Acetaminophen (TYLENOL) 650 MG Q4H PRN PRN PO Acetaminophen/Codeine Phosphate (TYLENOL W CODEI NE NO.3) 1 TAB Q4H PRN PRN PO Clonidine HCl (CATAPRES) 0.1 MG TID PRN PO Docusate Sodium (COLACE) 100 MG BID PRN PRN PO Hydralazine HCl (APRESOLINE) 10 MG Q6H PRN PRN I V Hydrocodone Bitart/Acetaminophen (NORCO 5/325) 1 TAB Q6H PRN PRN PO Zolpidem Tartrate (AMBIEN) 5 MG BEDTIME PRN PRN PO Physical Exam General appearance: alert, no acute distress Head/eyes: atraumatic, normocephalic ENT: normal nose Neck: non-tender, supple/no meningismus Cardiovascular: normal heart sounds, no rub Respiratory: aerating well, symmetric expansion Abdomen: non-tender, soft Genitourinary: no flank pain Extremities: pitting edema, non-tender Musculoskeletal: no CVA tenderness, no tendernes s Neuro/VACATION GUIDE: alert, normal speech Skin: dry, intact Results Findings/Data: Laboratory Tests 04/27 1705 1131 0712 0500 Chemistry Sodium (134 - 147 mEq/L) 138 Potassium (3.4 - 5.0 mEq/L) 4.2 Chloride (100 - 108 mEq/L) 96 L Carbon Dioxide (21 - 33 mEq/l) 25 Anion Gap (0 - 20) 21 H BUN (7 - 18 mg/dL) 22 H Creatinine (0.6 - 1.3 mg/dL) 5.9 H Glomerular Filtr Rate (80 - 90) 7.2 L Glucose (70 - 110 mg/dL) 231 H POC Glucose (70 - 110 MG/DL) 316 H 158 H 234 H 207 H Calcium (8.0 - 10.5 mg/dL) 8.4 04/26 04/26 04/26 04/25 04/25 1540 0709 0530 1554 1325 Chemistry Sodium (134 - 147 mEq/L) 139 Potassium (3.4 - 5.0 mEq/L) 4.2 Chloride (100 - 108 mEq/L) 101 Carbon Dioxide (21 - 33 mEq/l) 23 Anion Gap (0 - 20) 19 BUN (7 - 18 mg/dL) 32 H Creatinine (0.6 - 1.3 mg/dL) 8.8 H Glomerular Filtr Rate (80 - 90) 4.5 L Glucose (70 - 110 mg/dL) 104 POC Glucose (70 - 110 MG/DL) 120 H 119 H 121 H Lactic Acid (0.4 - 1.9 mmol/L) 1.1 Calcium (8.0 - 10.5 mg/dL) 8.3 04/25 04/25 1118 0712 Chemistry POC Glucose (70 - 110 MG/DL) 172 H 164 H Laboratory Tests 04/27 04/26 0500 0530 Hematology WBC (4.5 - 11.0 x10 3/uL) 3.2 L 4.3 L RBC (3.54 - 5.02 x10 6/uL) 5.07 H 4.75 Hgb (11.0 - 15.0 g/dL) 12.5 12.0 Hct (33.0 - 45.0 %) 41.6 40.0 MCV (81.0 - 99.0 fL) 82.1 84.2 MCH (27.0 - 33.0 pg) 24.7 L 25.3 L MCHC (33.0 - 37.0 g/dL) 30.0 L 30.0 L RDW (11.5 - 14.5 %) 17.4 H 18.0 H Plt Count (150 - 400 x10 3/uL) 197 202 MPV (7.0 - 9.0 fL) 10.2 H 11.0 H Neut % (Auto) (56.0 - 77.0 %) 75.1 62.0 Lymph % (Auto) (14.0 - 32.0 %) 14.2 23.5 [place] % (Auto) (4.8 - 9.0 %) 10.1 H 13.1 H Eos % (Auto) (0.3 - 3.7 %) 0.0 L 0.7 Baso % (Auto) (0.0 - 2.0 %) 0.3 0.5 Neut # (Auto) (2.0 - 7.6 x10 3/uL) 2.38 2.66 Lymph # (Auto) (1.0 - 3.8 x10 3/uL) 0.45 L 1.01 [place] # (Auto) (0.1 - 0.8 x10 3/uL) 0.32 0.56 Eos # (Auto) (0.0 - 0.2 x10 3/uL) 0.00 0.03 Baso # (Auto) (0.0 - 0.2 x10 3/uL) 0.01 0.02 Abs Immat Gran (auto) (0.00 - 0.03 x10 3/uL) 0. 01 0.01 Add Manual Diff NO NO Immature Gran % (0.0 - 2.0 %) 0.3 0.2 Nucleated RBC % (0 - 0 %) 0.0 0.0 Nucleated RBCs # (Man) (0.0 - 0.1 x10 3/uL) 0.0 0 0.00 Laboratory Tests 04/25 1430 Serology SARS-CoV-2 Ag (Rapid) (Negative) Negative Microbiology Date/Time Procedure - Status Source Growth 04/25 143 Influenza Virus Type B Antigen - COM P NASAL 04/25 143 Influenza Virus Type A Antigen - COM P NASAL Recent Impressions: MAGNETIC RESONANCE IMAGING - MRI LOW EXT W/O CON T RT 04/26 1148 Report Impression - Status: SIGNED Entered: 04/26/2022 1312 IMPRESSION: 1. Small soft tissue wound plantar aspect of the heel. Negative for abscess or osteomyelitis. 2. Chronic plantar fasciitis without tear. 3. Small tibiotalar joint effusion. Mild degener ative changes. 4. Atrophy of the musculature of the foot likely chronic denervation. Impression By: [email or web address] - Effie Lara Laboratory Tests 04/27 1705 1131 0712 Chemistry POC Glucose (70 - 110 MG/DL) 316 H 158 H 234 H 207 H Diagnosis, Assessment Plan Free Text A P: Patient seen and evaluated, discussed with care team, images and laboratories reviewed. History of hypertension: Monitor blood p ressure closely and adjust medications as needed Diabetes mellitus: Insulin: Monitor bloo d sugar closely adjust insulin dose as needed. End-stage renal disease on chronic hemod ialysis, Tuesday, Tuesday and Tuesday, last reported hemodialysis was on Tuesday. Clotted AV fistula: Vascular surgery was consult ed. Hyperkalemia: Discussed with vascular surgery, w ill place temporary dialysis catheter, plan for hemodialy sis for 2 hours tonight followed by full session in the morning. 04/24/2022 status post acute dialysis catheter placement and dialysis for 2 hours last night, plan for dialysis today, 4 hours, 2K , ultrafiltration 2 to 3 L if tolerated. Hemoglobin this morning 11.7, platele t 226, blood count 3.5, seen during HD. 04/25/2022 laboratories this morning showed sodiu m 139, potassium 3.8, CO2 26, creatinine 6.4, hemoglobin 12.4, platelet 179, b lood count 4.4, last hemodialysis on Tuesday, next hemodialysis for Tuesday. 04/26/2022 laboratory this morning showed sodium 139, potassium 4.2, CO2 23, creatinine 8.8, hemoglobin 12, platelet 202, whi te blood count 4.3. Plan for hemodialysis today, 4 hours, 3K, ultrafiltration 2 to 3 L as tolerated. 04/27/2022 status post hemodialysis yesterday, st atus post AV fistula thrombectomy and lower extremity angiogram and i ntervention, hemoglobin this morning 12.5, platelet 197, blood count 3.2, oanh n for dialysis in the morning 04/28/2022 laboratory this mo rning still pending, plan for hemodialysis today, 4 hours, 2K, ultrafiltration 2 to 3 L, will use AV fistula today if no issues will remove acute dialysis catheter. Electronically Signed by Demetrius Barraza MD on at 0913 [facility] #:[id number] END OF REPORT 2022-04-27 21:07:00-00:00 [facility]) Podiatry Progress Note REPORT#:[id number] REPORT STATUS: Signed DATE:04/27/22 TIME: 2106 PATIENT: PAOLA MISHRA UNIT #: [id number] ROOM/BED: 6605-1 : 57 AGE: 66 SEX: F ATTEND: Marcella Young MD ADM AUTHOR: Delma Saucedo DPM * ALL edits or amendments must be made on the el [employer]/computer document * Subjective Patient reports: no fever Objective General VS: Last Documented: Result Date Time Pulse Ox 98 04/27 2030 B/P 146/62 04/27 2030 B/P Mean 90.3 04/27 2030 O2 Delivery Room air 04/27 2030 Temp 36.7 04/27 2030 Pulse 69 04/27 2030 Resp 18 04/27 2030 PATIENT WEIGHT: Weight (lb): Weight (oz): Weight (kg): 54.545 Medications: Active Meds + DC'd Last 24 Hrs Clopidogrel Bisulfate (Plavix) 75 MG DAILY PO Dextrose/Water (DEXTROSE 10% IN WATER) 125 ML DIR PRN IV (CKD) Dextrose/Water (DEXTROSE 10% IN WATER) 250 ML DIR PRN IV (CKD) Glucagon (GLUCAGON) 1 MG ASDIR PRN IM Acetaminophen (TYLENOL EXTRA STRENGTH) 1,000 MG PREOP ONCALL PO (CKD) Gabapentin (NEURONTIN) 200 MG PREOP ONCALL PO (C KD) Oseltamivir Phosphate (TAMIFLU) 30 MG MOWEFR PO Cefepime HCl (MAXIPIME) 1 GM Q24H IV Sodium Chloride (SODIUM CHLORIDE) 10 ML Miscellaneous Information (VANCOMYCIN PHARMACY T O DOSE) 1 EACH ASDIR IV (CKD) Silver Sulfadiazine (SILVADENE 1% 50 GM CREAM) 1 APPLIC AC BK TOPICAL Insulin Human Lispro (HUMALOG) 0 AC HS SUBQ Amlodipine Besylate (NORVASC) 10 MG DAILY PO Cholecalciferol (VITAMIN D) 2,000 INTL.UNITS CARMENZA LY PO (CKD) Gabapentin (NEURONTIN) 100 MG DAILY PO Pantoprazole (PROTONIX) 40 MG DAILY PO Atorvastatin Calcium (LIPITOR) 20 MG BEDTIME PO Tacrolimus (PROGRAF) 1 MG BID PO Albumin Human (ALBUMINAR-25%) 12.5 GM ASDIR PRN IV Heparin Sodium (Porcine) (HEPARIN SODIUM) 3,000 UNIT ASDIR PRN DIALYSIS Lidocaine HCl (LIDOCAINE HCL/PF) 0.5 ML ASDIR MO N I-DERMAL (CKD) Mannitol (MANNITOL 25% 12.5GM/50ML) 12.5 GM ASDI R PRN IV Sodium Chloride (SODIUM CHLORIDE 0.9%) 2,000 ML ASDIR PRN IV Sodium Chloride (SODIUM CHLORIDE) 5 ML ASDIR PRN IV Sodium Chloride (SODIUM CHLORIDE) 10 ML ASDIR MO N IV Sodium Chloride (SODIUM CHLORIDE 0.9%) 250 ML DIR PRN IV Acetaminophen (TYLENOL) 650 MG Q4H PRN PRN PO Acetaminophen/Codeine Phosphate (TYLENOL W CODEI NE NO.3) 1 TAB Q4H PRN PRN PO Clonidine HCl (CATAPRES) 0.1 MG TID PRN PO Docusate Sodium (COLACE) 100 MG BID PRN PRN PO Hydralazine HCl (APRESOLINE) 10 MG Q6H PRN PRN I V Hydrocodone Bitart/Acetaminophen (NORCO 5/325) 1 TAB Q6H PRN PRN PO Zolpidem Tartrate (AMBIEN) 5 MG BEDTIME PRN PRN PO I O: 24 hour I O ending at 0700: 04/27 0700 04/26 1900 Intake Total 250 Output Total 3100 Balance -3100 250 Intake, Other 250 Output, 3100 Hemodialysis Dietitian nutrition assessment The data set between the solid lines has been im ported from the dietitian's assessment. BMI Calculated: 22.7 Nutrition related diagnosis: Nutrition diagnosis details: Nutrition problem: Nutrition etiology: Nutrition signs and symptoms: Nutrition prescription: Dietitian name: Assessment completed: Physical Exam Wound/incision: Location: Posterior plantar lateral heel right foot Extremities: Left moves all, Left no cyanosis, Left abnormal capillary refill, Left cool, Left decreased range of motion, Right moves all, Right no cyanosis, Right abnormal capillary refill, Right cool, Right dec reased range of motion LE vascular pulse assess: Nonpalpable R posterior tibialis, Nonpalpable L posterior tibialis, 1+ R dorsalis pedis, 1+ L dorsalis pedis Reflex testing: Monofilament: DIM Toes, DIM Ball of foot, DIM Arch, DIM Heel Reflexes: Achilles: 2+ Babinski: 0 Musculoskeletal: Musculoskeletal: decreased ROM, pain on palpati on to ulcerative site right heel Neuro/VACATION GUIDE: alert, oriented X 3, sensory deficit Skin: cool, erythema Ulcer: Location: heel (right foot) Type: pressure Appearance: granulation tissue, slough Drainage: serosanguineous, mild Depth: muscle w/out necrosis Debo wound: cool, dry, erythema Stage (pressure): 4 Results Findings/Data: Laboratory Tests: 04/27 1705 1131 0712 Chemistry POC Glucose (70 - 110 MG/DL) 316 H 158 H 234 H 207 H 04/27 0500 Chemistry Sodium (134 - 147 mEq/L) 138 Potassium (3.4 - 5.0 mEq/L) 4.2 Chloride (100 - 108 mEq/L) 96 L Carbon Dioxide (21 - 33 mEq/l) 25 Anion Gap (0 - 20) 21 H BUN (7 - 18 mg/dL) 22 H Creatinine (0.6 - 1.3 mg/dL) 5.9 H Glomerular Filtr Rate (80 - 90) 7.2 L Glucose (70 - 110 mg/dL) 231 H Calcium (8.0 - 10.5 mg/dL) 8.4 Hematology WBC (4.5 - 11.0 x10 3/uL) 3.2 L RBC (3.54 - 5.02 x10 6/uL) 5.07 H Hgb (11.0 - 15.0 g/dL) 12.5 Hct (33.0 - 45.0 %) 41.6 MCV (81.0 - 99.0 fL) 82.1 MCH (27.0 - 33.0 pg) 24.7 L MCHC (33.0 - 37.0 g/dL) 30.0 L RDW (11.5 - 14.5 %) 17.4 H Plt Count (150 - 400 x10 3/uL) 197 MPV (7.0 - 9.0 fL) 10.2 H Neut % (Auto) (56.0 - 77.0 %) 75.1 Lymph % (Auto) (14.0 - 32.0 %) 14.2 [place] % (Auto) (4.8 - 9.0 %) 10.1 H Eos % (Auto) (0.3 - 3.7 %) 0.0 L Baso % (Auto) (0.0 - 2.0 %) 0.3 Neut # (Auto) (2.0 - 7.6 x10 3/uL) 2.38 Lymph # (Auto) (1.0 - 3.8 x10 3/uL) 0.45 L [place] # (Auto) (0.1 - 0.8 x10 3/uL) 0.32 Eos # (Auto) (0.0 - 0.2 x10 3/uL) 0.00 Baso # (Auto) (0.0 - 0.2 x10 3/uL) 0.01 Abs Immat Gran (auto) (0.00 - 0.03 x10 3/uL) 0. 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 All questions answered to their understanding. Placed orders for baseline x-rays 3 views right foot VASCULAR EVAL. Continue IV abx, final wound culture and sensiti vity Continue with wound care: Cleanse wound right he el with vashe followed by application of silvadene cream and DSD once te y. Continue with Prevalon boots. Will continue to follow. Electronically Signed by Delma Saucedo DPM on 09/22 at 8286 RPT #:[id number] END OF REPORT 2022-04-27 12:03:00-00:00 [facility] ([facility]) Infectious Dis. Progress Note REPORT#:[id number] REPORT STATUS: Signed DATE:04/27/22 TIME: 1203 PATIENT: PAOLA MISHRA UNIT #: [id number] ROOM/BED: [place] [address] : 57 AGE: 66 SEX: F ATTEND: Marcella Young MD ADM AUTHOR: Kailey Contreras MD, MD * ALL edits or amendments must be made on the [employer]/computer document * Subjective Chief complaint: Right heel gangrene HPI: The patient is a 66-year-old female wit h past medical history significant for hypertensio n, diabetes, end-stage renal disease, on dialysis on Tuesday, Tuesday and , admitted to [facility] with a clotted AV fistula. The patient also had reported right heel wound with purulent drainage and complai nt of right heel pain. On admission to the hospital, nephrology was consulted and the p atient was started on vancomycin, and Infectious D isnikitae is consulted for evaluation of fever. At the time of my consultation, the patient is lying in bed, reports fevers and chills for last 24 hours. The patie nt reports that she has taken Moderna COVID vaccine with booster. She is not sure as to whether she has taken flu shot. Does report chills and body aches. Reports ri ght heel severe foul smelling drainage and pain. Patient reports: No: complaints. Review of Systems Constitutional: Denies: chills, fatigue. Skin: Denies: abrasion, bruising. Allergy/Immun: Denies: allergic reaction, anaphylaxis. Eyes: Denies: redness, discharge. ENT: Denies: ear drainage, ear ringing. Respiratory: Denies: [place] (dyspnea on exertion), hemoptysis. Objective General VS/I O: Vital Signs Date Temp Pulse Resp B/P B/P Mean Pulse Ox FiO2 04/26-04/27 97.0-98.2 68-84 07-26 121-149/61-73 84.1-91.8 94-100 Last Documented: Result Date Time B/P 125/67 04/27 1130 B/P Mean 86.1 04/27 1130 Temp 97.3 04/27 1130 Pulse 73 04/27 1130 Resp 16 04/27 1130 Pulse Ox 96 04/27 0711 O2 Delivery Room air 04/27 0430 Vital Signs: Date Time Temp Pulse Resp B/P B/P Pulse O2 O2 F low FiO2 Mean Ox Delivery Rate 04/27 1130 97.3 73 16 125/67 86.1 04/27 0711 97.7 74 17 145/65 91.8 96 04/27 0430 98.1 73 16 147/64 91.8 96 Room air 04/26 2345 98.2 82 16 121/66 84.1 97 Room air 04/26 2320 97.0 77 20 136/66 94 Room air 04/26 1908 97.5 84 26 149/73 97 Room air 04/26 1730 82 12 129/63 98 04/26 1715 76 12 136/64 95 04/26 1700 80 23 133/65 98 04/26 1645 78 16 138/68 97 04/26 1630 78 18 143/68 98 04/26 1615 76 16 141/65 97 04/26 1605 75 16 144/69 97 04/26 1600 72 12 148/70 97 04/26 1555 72 12 149/70 97 04/26 1545 68 12 140/65 97 04/26 1540 74 12 124/61 100 04/26 1535 97.3 72 12 135/71 100 Room air 24 hour I O ending at 0700: 04/27 0700 04/26 1900 Intake Total 250 Output Total 3100 Balance -3100 250 Intake, Other 250 Output, 3100 Hemodialysis PATIENT WEIGHT: Weight (lb): Weight (oz): Weight (kg): 54.545 Medications: Active Meds + DC'd Last 24 Hrs Clopidogrel Bisulfate (Plavix) 75 MG DAILY PO (D C) Vancomycin HCl (VANCOMYCIN HCL) 500 MG ONCE ONE IV (DC) Sodium Chloride (SODIUM CHLORIDE 0.9% 100 ML) 1 00 ML Clopidogrel Bisulfate (Plavix) 75 MG DAILY PO Clopidogrel Bisulfate (Plavix) 0 .STK-MED ONE . ROUTE (DC) Dextrose/Water (DEXTROSE 10% IN WATER) 125 ML DIR PRN IV (CKD) Dextrose/Water (DEXTROSE 10% IN WATER) 250 ML DIR PRN IV (CKD) Glucagon (GLUCAGON) 1 MG ASDIR PRN IM Heparin Sodium (HEPARIN SODIUM) 0 .STK-MED ONE . ROUTE (DC) Alteplase, Recombinant (CATHFLO ACTIVASE) 0 .STK -MED ONE .ROUTE (DC) Fentanyl Citrate (SUBLIMAZE) 0 .STK-MED ONE .ROU TE (DC) Midazolam HCl (VERSED) 0 .STK-MED ONE .ROUTE (DC ) Dexamethasone Sodium Phosphate (DECADRON) 0 .STK -MED ONE .ROUTE (DC) Fentanyl Citrate (SUBLIMAZE) 0 .STK-MED ONE .ROU TE (DC) Heparin Sodium (HEPARIN SODIUM) 0 .STK-MED ONE . ROUTE (DC) Lidocaine HCl (XYLOCAINE) 0 .STK-MED ONE .ROUTE (DC) Midazolam HCl (VERSED) 0 .STK-MED ONE .ROUTE (DC ) Ondansetron HCl (ZOFRAN) 0 .STK-MED ONE .ROUTE ( DC) Propofol (DIPRIVAN 200MG/20ML INJECTION) 20 ML .STK-MED ONE IV (DC) Fentanyl Citrate (SUBLIMAZE) 100 MCG PACU Q10MIN PRN PRN IV (DC) Fentanyl Citrate (SUBLIMAZE) 50 MCG PACU Q10MIN PRN PRN IV (DC) Hydralazine HCl (APRESOLINE) 5 MG PACU Q10MIN MO N PRN IV (DC) Hydrocodone Bitart/Acetaminophen (NORCO 5/325) 1 TAB PACU ONCE PO (DC) Hydromorphone HCl (DILAUDID) 1 MG PACU Q10MIN MO N PRN IV (DC) Hydromorphone HCl (DILAUDID) 0.5 MG PACU Q5MIN P RN PRN IV (DC) Insulin Human Lispro (HUMALOG) 0 PACU ONCE PRN S UBQ (DC) Labetalol HCl (LABETALOL HCL) 5 MG PACU Q10MIN P RN PRN IV (DC) Lactated Ringer's (LACTATED RINGERS) 1,000 ML .Q 24H IV (DC) Meperidine HCl (DEMEROL 50MG/ML) 12.5 MG PACU ON CE PRN IV (DC) Morphine Sulfate (morphine SULFATE) 2 MG PACU Q1 0MIN PRN PRN IV (DC) Ondansetron HCl (ZOFRAN) 4 MG PACU ONCE PRN IV ( DC) Ropivacaine (NAROPIN 0.5% 150 MG/30mL) 150 MG DIR PRN LOCAL (DC) Tramadol HCl (ULTRAM) 50 MG PACU ONCE PO (DC) Acetaminophen (TYLENOL EXTRA STRENGTH) 1,000 MG PREOP ONCALL PO (CKD) Gabapentin (NEURONTIN) 200 MG PREOP ONCALL PO (C KD) Oseltamivir Phosphate (TAMIFLU) 30 MG MOWEFR PO Cefepime HCl (MAXIPIME) 1 GM Q24H IV Sodium Chloride (SODIUM CHLORIDE) 10 ML Miscellaneous Information (VANCOMYCIN PHARMACY T O DOSE) 1 EACH ASDIR IV (CKD) Silver Sulfadiazine (SILVADENE 1% 50 GM CREAM) 1 APPLIC AC BK TOPICAL Insulin Human Lispro (HUMALOG) 0 AC HS SUBQ Amlodipine Besylate (NORVASC) 10 MG DAILY PO Cholecalciferol (VITAMIN D) 2,000 INTL.UNITS DA RANDALL PO (CKD) Gabapentin (NEURONTIN) 100 MG DAILY PO Pantoprazole (PROTONIX) 40 MG DAILY PO Atorvastatin Calcium (LIPITOR) 20 MG BEDTIME PO Tacrolimus (PROGRAF) 1 MG BID PO Albumin Human (ALBUMINAR-25%) 12.5 GM ASDIR PRN IV Heparin Sodium (Porcine) (HEPARIN SODIUM) 3,000 UNIT ASDIR PRN DIALYSIS Lidocaine HCl (LIDOCAINE HCL/PF) 0.5 ML ASDIR MO N I-DERMAL (CKD) Mannitol (MANNITOL 25% 12.5GM/50ML) 12.5 GM ASDI R PRN IV Sodium Chloride (SODIUM CHLORIDE 0.9%) 2,000 ML ASDIR PRN IV Sodium Chloride (SODIUM CHLORIDE) 5 ML ASDIR PRN IV Sodium Chloride (SODIUM CHLORIDE) 10 ML ASDIR MO N IV Sodium Chloride (SODIUM CHLORIDE 0.9%) 250 ML DIR PRN IV Acetaminophen (TYLENOL) 650 MG Q4H PRN PRN PO Acetaminophen/Codeine Phosphate (TYLENOL W CODEI NE NO.3) 1 TAB Q4H PRN PRN PO Clonidine HCl (CATAPRES) 0.1 MG TID PRN PO Docusate Sodium (COLACE) 100 MG BID PRN PRN PO Hydralazine HCl (APRESOLINE) 10 MG Q6H PRN PRN I V Hydrocodone Bitart/Acetaminophen (NORCO 5/325) 1 TAB Q6H PRN PRN PO Zolpidem Tartrate (AMBIEN) 5 MG BEDTIME PRN PRN PO Physical Exam General appearance: no acute distress Head/Eyes: atraumatic, normocephalic Neck: non-tender, supple/no meningismus Cardiovascular: normal heart sounds, no murmur Respiratory: clear to auscultation, symmetric ex pansion Abdomen: non-tender, soft Extremities: no clubbing Skin: gangrene (R heel wet gangrene) Results Findings/Data: Laboratory Tests 04/27 04/27 04/27 04/26 1131 0712 0500 1540 Chemistry Sodium (134 - 147 mEq/L) 138 Potassium (3.4 - 5.0 mEq/L) 4.2 Chloride (100 - 108 mEq/L) 96 L Carbon Dioxide (21 - 33 mEq/l) 25 Anion Gap (0 - 20) 21 H BUN (7 - 18 mg/dL) 22 H Creatinine (0.6 - 1.3 mg/dL) 5.9 H Glomerular Filtr Rate (80 - 90) 7.2 L Glucose (70 - 110 mg/dL) 231 H POC Glucose (70 - 110 MG/DL) 234 H 207 H 120 H Calcium (8.0 - 10.5 mg/dL) 8.4 Laboratory Tests 04/27 0500 Hematology WBC (4.5 - 11.0 x10 3/uL) 3.2 L RBC (3.54 - 5.02 x10 6/uL) 5.07 H Hgb (11.0 - 15.0 g/dL) 12.5 Hct (33.0 - 45.0 %) 41.6 MCV (81.0 - 99.0 fL) 82.1 MCH (27.0 - 33.0 pg) 24.7 L MCHC (33.0 - 37.0 g/dL) 30.0 L RDW (11.5 - 14.5 %) 17.4 H Plt Count (150 - 400 x10 3/uL) 197 MPV (7.0 - 9.0 fL) 10.2 H Neut % (Auto) (56.0 - 77.0 %) 75.1 Lymph % (Auto) (14.0 - 32.0 %) 14.2 [place] % (Auto) (4.8 - 9.0 %) 10.1 H Eos % (Auto) (0.3 - 3.7 %) 0.0 L Baso % (Auto) (0.0 - 2.0 %) 0.3 Neut # (Auto) (2.0 - 7.6 x10 3/uL) 2.38 Lymph # (Auto) (1.0 - 3.8 x10 3/uL) 0.45 L [place] # (Auto) (0.1 - 0.8 x10 3/uL) 0.32 Eos # (Auto) (0.0 - 0.2 x10 3/uL) 0.00 Baso # (Auto) (0.0 - 0.2 x10 3/uL) 0.01 Abs Immat Gran (auto) (0.00 - 0.03 x10 3/uL) 0. 01 Add Manual Diff NO Immature Gran % (0.0 - 2.0 %) 0.3 Nucleated RBC % (0 - 0 %) 0.0 Nucleated RBCs # (Man) (0.0 - 0.1 x10 3/uL) 0.0 0 Results: labs reviewed, patrick l signs reviewed, x-ray personally reviewed, current med profile rev'd Treatment Prophylaxis Treatment Prophylaxis Lines: L arm HD AVF CVC/PICC documentation: The data below has been imported from nursing do cumentation. Any exceptions have been noted below under Provider comments. CVC/PICC insertion date/time: Dialysis catheter triple Internal jugular Right Inserted 04/23/222099 Provider comments on imported nursing data: [] Diagnosis, Assessment Plan Problem List/A P: 1. End stage renal disease 2. Dialysis AV fistula malfunction 3. Gangrene of right foot 4. Influenza A 5. Diabetic neuropathy Free Text A P: on Tamiflu 5-day course for Flu A R heel diabetic wet gangrene, no abscess or Oste omyelitis on MRI 04/26 s/p L arm HD AVF and R leg trombectomies and ang ioplasties 04/26 On Vanc and cefepime will follow Electronically Signed by Kailey Contreras MD, MD on at 1210 RPT #:[id number] END OF REPORT 2022-04-27 11:44:00-00:00 [facility]) Internal Medicine Prog. Note REPORT#:[id number] REPORT STATUS: Signed DATE:04/27/22 TIME: 1144 PATIENT: PAOLA MISHRA UNIT #: [id number] ROOM/BED: [address] : 57 AGE: 66 SEX: F ATTEND: Marcella Young MD ADM AUTHOR: Marcella Stewart MD * ALL edits or amendments must be made on the el [employer]/computer document * Subjective Chief complaint: Feeling okay No distress Hemodialysis today Review of Systems All systems rev neg: except as marked Objective General VS/I O: Vital Signs Date Temp Pulse Resp B/P B/P Mean Pulse Ox FiO2 04/26-04/27 97.0-98.2 68-84 07-26 121-149/61-73 84.1-91.8 94-100 Last Documented: Result Date Time B/P 125/67 04/27 1130 B/P Mean 86.1 04/27 1130 Temp 97.3 04/27 1130 Pulse 73 04/27 1130 Resp 16 04/27 1130 Pulse Ox 96 04/27 0711 O2 Delivery Room air 04/27 0430 24 hour I O ending at 0700: 04/27 0700 04/26 1900 Intake Total 250 Output Total 3100 Balance -3100 250 Intake, Other 250 Output, 3100 Hemodialysis PATIENT WEIGHT: Weight (lb): Weight (oz): Weight (kg): 54.545 Medications: Active Meds + DC'd Last 24 Hrs Clopidogrel Bisulfate (Plavix) 75 MG DAILY PO (D C) Vancomycin HCl (VANCOMYCIN HCL) 500 MG ONCE ONE IV (DC) Sodium Chloride (SODIUM CHLORIDE 0.9% 100 ML) 1 00 ML Clopidogrel Bisulfate (Plavix) 75 MG DAILY PO Clopidogrel Bisulfate (Plavix) 0 .STK-MED ONE .R OUTE (DC) Dextrose/Water (DEXTROSE 10% IN WATER) 125 ML DIR PRN IV (CKD) Dextrose/Water (DEXTROSE 10% IN WATER) 250 ML DIR PRN IV (CKD) Glucagon (GLUCAGON) 1 MG ASDIR PRN IM Heparin Sodium (HEPARIN SODIUM) 0 .STK-MED ONE . ROUTE (DC) Alteplase, Recombinant (CATHFLO ACTIVASE) 0 .STK -MED ONE .ROUTE (DC) Fentanyl Citrate (SUBLIMAZE) 0 .STK-MED ONE .ROU TE (DC) Midazolam HCl (VERSED) 0 .STK-MED ONE .ROUTE (DC ) Dexamethasone Sodium Phosphate (DECADRON) 0 .STK -MED ONE .ROUTE (DC) Fentanyl Citrate (SUBLIMAZE) 0 .STK-MED ONE .ROU TE (DC) Heparin Sodium (HEPARIN SODIUM) 0 .STK-MED ONE . ROUTE (DC) Lidocaine HCl (XYLOCAINE) 0 .STK-MED ONE .ROUTE (DC) Midazolam HCl (VERSED) 0 .STK-MED ONE .ROUTE (DC ) Ondansetron HCl (ZOFRAN) 0 .STK-MED ONE .ROUTE ( DC) Propofol (DIPRIVAN 200MG/20ML INJECTION) 20 ML . STK-MED ONE IV (DC) Alteplase, Recombinant (CATHFLO ACTIVASE) 0 .STK -MED ONE .ROUTE (DC) Fentanyl Citrate (SUBLIMAZE) 100 MCG PACU Q10MIN PRN PRN IV (DC) Fentanyl Citrate (SUBLIMAZE) 50 MCG PACU Q10MIN PRN PRN IV (DC) Hydralazine HCl (APRESOLINE) 5 MG PACU Q10MIN MO N PRN IV (DC) Hydrocodone Bitart/Acetaminophen (NORCO 5/325) 1 TAB PACU ONCE PO (DC) Hydromorphone HCl (DILAUDID) 1 MG PACU Q10MIN MO N PRN IV (DC) Hydromorphone HCl (DILAUDID) 0.5 MG PACU Q5MIN P RN PRN IV (DC) Insulin Human Lispro (HUMALOG) 0 PACU ONCE PRN S UBQ (DC) Labetalol HCl (LABETALOL HCL) 5 MG PACU Q10MIN P RN PRN IV (DC) Lactated Ringer's (LACTATED RINGERS) 1,000 ML . Q24H IV (DC) Meperidine HCl (DEMEROL 50MG/ML) 12.5 MG PACU ON CE PRN IV (DC) Morphine Sulfate (morphine SULFATE) 2 MG PACU Q1 0MIN PRN PRN IV (DC) Ondansetron HCl (ZOFRAN) 4 MG PACU ONCE PRN IV ( DC) Ropivacaine (NAROPIN 0.5% 150 MG/30mL) 150 MG DIR PRN LOCAL (DC) Tramadol HCl (ULTRAM) 50 MG PACU ONCE PO (DC) Acetaminophen (TYLENOL EXTRA STRENGTH) 1,000 MG PREOP ONCALL PO (CKD) Gabapentin (NEURONTIN) 200 MG PREOP ONCALL PO (C KD) Oseltamivir Phosphate (TAMIFLU) 30 MG MOWEFR PO Cefepime HCl (MAXIPIME) 1 GM Q24H IV Sodium Chloride (SODIUM CHLORIDE) 10 ML Miscellaneous Information (VANCOMYCIN PHARMACY T O DOSE) 1 EACH ASDIR IV (CKD) Silver Sulfadiazine (SILVADENE 1% 50 GM CREAM) 1 APPLIC AC BK TOPICAL Insulin Human Lispro (HUMALOG) 0 AC HS SUBQ Amlodipine Besylate (NORVASC) 10 MG DAILY PO Cholecalciferol (VITAMIN D) 2,000 INTL.UNITS CARMENZA LY PO (CKD) Gabapentin (NEURONTIN) 100 MG DAILY PO Pantoprazole (PROTONIX) 40 MG DAILY PO Atorvastatin Calcium (LIPITOR) 20 MG BEDTIME PO Tacrolimus (PROGRAF) 1 MG BID PO Albumin Human (ALBUMINAR-25%) 12.5 GM ASDIR PRN IV Heparin Sodium (Porcine) (HEPARIN SODIUM) 3,000 UNIT ASDIR PRN DIALYSIS Lidocaine HCl (LIDOCAINE HCL/PF) 0.5 ML ASDIR MO N I-DERMAL (CKD) Mannitol (MANNITOL 25% 12.5GM/50ML) 12.5 GM ASDI R PRN IV Sodium Chloride (SODIUM CHLORIDE 0.9%) 2,000 ML ASDIR PRN IV Sodium Chloride (SODIUM CHLORIDE) 5 ML ASDIR PRN IV Sodium Chloride (SODIUM CHLORIDE) 10 ML ASDIR MO N IV Sodium Chloride (SODIUM CHLORIDE 0.9%) 250 ML DIR PRN IV Acetaminophen (TYLENOL) 650 MG Q4H PRN PRN PO Acetaminophen/Codeine Phosphate (TYLENOL W CODEI NE NO.3) 1 TAB Q4H PRN PRN PO Clonidine HCl (CATAPRES) 0.1 MG TID PRN PO Docusate Sodium (COLACE) 100 MG BID PRN PRN PO Hydralazine HCl (APRESOLINE) 10 MG Q6H PRN PRN I V Hydrocodone Bitart/Acetaminophen (NORCO 5/325) 1 TAB Q6H PRN PRN PO Zolpidem Tartrate (AMBIEN) 5 MG BEDTIME PRN PRN PO Physical Exam General appearance: alert, awake, oriented Head/eyes: atraumatic, EOMI, normal conjunctiva/ sclera ENT: moist mucosal membranes Neck: full range of motion, non-tender Cardiovascular: normal capillary refill, normal heart sounds, regular rate rhythm Abdomen: soft Musculoskeletal: full range of motion Results Findings/Data: Laboratory Tests 04/27/22 0500: [Embedded Image Not Available] Laboratory Tests 04/27 04/27 04/27 04/26 1131 0712 0500 1540 Chemistry Sodium (134 - 147 mEq/L) 138 Potassium (3.4 - 5.0 mEq/L) 4.2 Chloride (100 - 108 mEq/L) 96 L Carbon Dioxide (21 - 33 mEq/l) 25 Anion Gap (0 - 20) 21 H BUN (7 - 18 mg/dL) 22 H Creatinine (0.6 - 1.3 mg/dL) 5.9 H Glomerular Filtr Rate (80 - 90) 7.2 L Glucose (70 - 110 mg/dL) 231 H POC Glucose (70 - 110 MG/DL) 234 H 207 H 120 H Calcium (8.0 - 10.5 mg/dL) 8.4 Laboratory Tests 04/27 0500 Hematology WBC (4.5 - 11.0 x10 3/uL) 3.2 L RBC (3.54 - 5.02 x10 6/uL) 5.07 H Hgb (11.0 - 15.0 g/dL) 12.5 Hct (33.0 - 45.0 %) 41.6 MCV (81.0 - 99.0 fL) 82.1 MCH (27.0 - 33.0 pg) 24.7 L MCHC (33.0 - 37.0 g/dL) 30.0 L RDW (11.5 - 14.5 %) 17.4 H Plt Count (150 - 400 x10 3/uL) 197 MPV (7.0 - 9.0 fL) 10.2 H Neut % (Auto) (56.0 - 77.0 %) 75.1 Lymph % (Auto) (14.0 - 32.0 %) 14.2 [place] % (Auto) (4.8 - 9.0 %) 10.1 H Eos % (Auto) (0.3 - 3.7 %) 0.0 L Baso % (Auto) (0.0 - 2.0 %) 0.3 Neut # (Auto) (2.0 - 7.6 x10 3/uL) 2.38 Lymph # (Auto) (1.0 - 3.8 x10 3/uL) 0.45 L [place] # (Auto) (0.1 - 0.8 x10 3/uL) 0.32 Eos # (Auto) (0.0 - 0.2 x10 3/uL) 0.00 Baso # (Auto) (0.0 - 0.2 x10 3/uL) 0.01 Abs Immat Gran (auto) (0.00 - 0.03 x10 3/uL) 0. 01 Add Manual Diff NO Immature Gran % (0.0 - 2.0 %) 0.3 Nucleated RBC % (0 - 0 %) 0.0 Nucleated RBCs # (Man) (0.0 - 0.1 x10 3/uL) 0.0 0 Radiology data: Recent Impressions: MAGNETIC RESONANCE IMAGING - MRI LOW EXT W/O CON T RT 04/26 1148 Report Impression - Status: SIGNED Entered: 04/26/2022 1312 IMPRESSION: 1. Small soft tissue wound plantar aspect of the heel. Negative for abscess or osteomyelitis. 2. Chronic plantar fasciitis without tear. 3. Small tibiotalar joint effusion. Mild degener ative changes. 4. Atrophy of the musculature of the foot likely chronic denervation. Impression By: [id number] - Effie Lara Diagnosis, Assessment Plan Free Text DxA P Notes Free text DxA P notes: Fevers / influenza virus aVF malfunction Volume overload ESRD Right FOOT ulcer -Positive flu. Start Tamiflu?. Infectiou s disease consulted. As needed Tylenol -Dialysis catheter placed. Resume dialysis per n ephrology -Wound care per podiatry -replete elctrolytes -Blood sugars stable. SSI -Salt and fluid restriction. diurese if edema in creases. daily weights -prn zofran and antacids -allow diet -continue home BP meds. PRN hydralazine -prn stool softners -appreciate specialists help DC plan DVT prophylaxis with heparin/SCDs at 1144 RPT #:[id number] END OF REPORT 2022-04-27 09:06:00-00:00 [facility] Prog.Note-Vancomycin REPORT#:[id number] REPORT STATUS: Signed DATE:04/27/22 TIME: 905 PATIENT: PAOLA MISHRA UNIT #: [id number] ROOM/BED: [place] [address] : 57 AGE: 66 SEX: F ATTEND: Marcella Young MD ADM AUTHOR: Bryant Mosley [facility] * ALL edits or amendments must be made on the [employer] document * Vancomycin Vancomycin Medication Therapy Goal: trough 15-20 mcg/mL Indication for treatment: SSTI Site of infection: known Current therapy: Medication(s) Ordered: Anti-Infective Agents Sig/Mane Start time Last Medication Dose Route Stop Time Status Admin Oseltamivir Phosphate 30 MG MOWEFR 04/25 1545 P NDr PO 05/03 1546 Vancomycin HCl 1,250 MG ONCE ONE 04/25 1535 AC Sodium Chloride 250 ML IV 04/25 1649 Cefepime HCl 1 GM Q24H 04/25 1400 AC 04/25 Sodium Chloride 10 ML IV 05/02 1359 1427 Miscellaneous 1 EACH ASDIR 04/25 1400 CKD Information IV 05/25 1359 Miscellaneous 1 EACH ASDIR 04/25 1400 DC Information IV 05/25 1359 Day of therapy: 3 Weight: Actual weight (kg): 54.544 VS and I/O: Vital Signs Date Temp Pulse Resp B/P B/P Mean Pulse Ox FiO2 04/24-04/27 36.1-38.2 68-87 - 121-170/61-84 84.1-111.4 93-100 72 hours ending at 0704/27 0704/26 1900 04/26 0704/25 19004/24 07 1900 Intake 250 Total Output 3100 3300 Total Balance -3100 250 -3300 Intake, 250 Other Output, 3100 3300 Hemodialys is 72 Hour I O Total 04/27 0704/26 0704/25 07 Intake Total 250 Output Total 3100 3300 Balance -2850 -3300 Labs: Laboratory Test : 04/27 0500 Chemistry BUN (7 - 18 mg/dL) 22 H Creatinine (0.6 - 1.3 mg/dL) 5.9 H Hematology WBC (4.5 - 11.0 x10 3/uL) 3.2 L Microbiology: 04/25 1430 NASAL: Influenza Virus Type B Antigen - COMP 04/25 1430 NASAL: Influenza Virus Type A Antigen - COMP 04/24 1414 FOOT: Wound Culture - COMP Last dialysis session: Date: 04/26/22 Drug admin history: Lab Lab Level SCr Info Clinical Laboratory Technologist Med Dose Inter action/Dialysis Date/Time Date/Time Notes: Treatment plan: consult, cont current regimen/do se Rationale: This is a 66-year-old female with a history of e nd-stage renal disease, on hemodialysis Tuesday, ay and Tuesday; hypertension, diabetes, admitted from vascular surgeon, Dr. Francois's office, f or clotted AV fistula. The patient had hemodialysis on Tuesday, unable to get the dialys is on Tuesday because of thrombosed AV fistula. She denies any active com plaint. She has right heel pain with open wound for the past 3 weeks. She i s being followed up by assistant kitchen manager. Pharmacy consulted to manage vancomy nereyda. Consulting Provider: Erick Indication: SSTI Goal: Pre-HD 15-20 mcg/mL Concurrent Abx: Cefepime 1gm q24h, oseltamavir 04/27 A/P: * afebrile, WBC 3.2 * Micro: 04/23 Bcx - NG72h, 04/24 wound cx - many CoNS, 04/25 Influenza type A - positive * Imagin/24 ankle XR - no osteomyelitis * Renal: ESRD on HD MWF, Last HD on 04/26 * Regimen: Day 3. Received 500 mg maintenance do se 04/26 post HD. * Plan/Monitoring: Pre-HD ra ndom vanc level prior to 3rd overall dose ordered . * Pharmacy will continue to follow and monitor. Electronically Signed by Bryant Mosley [facility] on 04/27 at 0909 RPT #:[id number] END OF REPORT 2022-04-27 07:53:00-00:00 [facility] ([facility]) Nephrology Progress Note REPORT#:[id number] REPORT STATUS: Signed DATE:04/27/22 TIME: 0753 PATIENT: PAOLA MISHRA UNIT #: [id number] ROOM/BED: 6605-1 : 57 AGE: 66 SEX: F ATTEND: Marcella Young MD ADM AUTHOR: Demetrius Barraza MD * ALL edits or amendments must be made on the [employer] document * Subjective Chief complaint: Clotted AVF HPI: Patient seen and evaluated, discussed with care team, 66-year-old female with history of end-stage renal d isease on chronic hemodialysis Tuesday and Tuesday, hypertension and diabetes mellit us who presented to the emergency room today with a clotted AV fistula. Last reported h emodialysis was on Tuesday. Patient also has right heel pain and wound for about 3 weeks. She denies fever, chills, nausea, vomiting or other complaints. He r laboratories showed sodium 129, potassium 6, CO2 24, BUN 81, creati nine 11, glucose 273, hemoglobin 11.4, platelet 221, blood count 5.5. Renal consult was requested for management of her end-stage renal disease/hemodialysis. Patient reports: Yes: complaints. Comments: Patient seen and evaluated, HPI no change from i nitial, feels okay. Review of Systems Constitutional: Reports: fatigue. Denies: chills, fever. Skin: Denies: abrasion, bruising. Allergy/Immun: Denies: hives, itching. Eyes: Denies: redness, discharge. ENT: Denies: ear drainage, ear ringing. Respiratory: Denies: hemoptysis, SOB. Cardiovascular: Denies: chest pain. Objective General VS/I O: Vital Signs: Date Time Temp Pulse Resp B/P B/P Pulse O2 O2 F low FiO2 Mean Ox Delivery Rate 04/27 0711 36.5 74 17 145/65 91.8 96 04/27 0430 36.7 73 16 147/64 91.8 96 Room air 04/26 2345 36.8 82 16 121/66 84.1 97 Room air 04/26 2320 36.1 77 20 136/66 94 Room air 04/26 1908 36.4 84 26 149/73 97 Room air 04/26 1730 82 12 129/63 98 04/26 1715 76 12 136/64 95 04/26 1700 80 23 133/65 98 04/26 1645 78 16 138/68 97 04/26 1630 78 18 143/68 98 04/26 1615 76 16 141/65 97 04/26 1605 75 16 144/69 97 04/26 1600 72 12 148/70 97 04/26 1555 72 12 149/70 97 04/26 1545 68 12 140/65 97 04/26 1540 74 12 124/61 100 04/26 1535 36.3 72 12 135/71 100 Room air 24 hour I O ending at 0700: 04/27 0700 04/26 1900 Intake Total 250 Output Total 3100 Balance -3100 250 Intake, Other 250 Output, 3100 Hemodialysis PATIENT WEIGHT: Weight (lb): Weight (oz): Weight (kg): 54.545 Medications Active Meds + DC'd Last 24 Hrs Clopidogrel Bisulfate (Plavix) 75 MG DAILY PO (D C) Vancomycin HCl (VANCOMYCIN HCL) 500 MG ONCE ONE IV (DC) Sodium Chloride (SODIUM CHLORIDE 0.9% 100 ML) 1 00 ML Clopidogrel Bisulfate (Plavix) 75 MG DAILY PO Clopidogrel Bisulfate (Plavix) 0 .STK-MED ONE .R OUTE (DC) Dextrose/Water (DEXTROSE 10% IN WATER) 125 ML A SDIR PRN IV (CKD) Dextrose/Water (DEXTROSE 10% IN WATER) 250 ML DIR PRN IV (CKD) Glucagon (GLUCAGON) 1 MG ASDIR PRN IM Heparin Sodium (HEPARIN SODIUM) 0 .STK-MED ONE . ROUTE (DC) Alteplase, Recombinant (CATHFLO ACTIVASE) 0 .STK -MED ONE .ROUTE (DC) Fentanyl Citrate (SUBLIMAZE) 0 .STK-MED ONE .ROU TE (DC) Midazolam HCl (VERSED) 0 .STK-MED ONE .ROUTE (DC ) Dexamethasone Sodium Phosphate (DECADRON) 0 .STK -MED ONE .ROUTE (DC) Fentanyl Citrate (SUBLIMAZE) 0 .STK-MED ONE .RO IGIUGIG (DC) Heparin Sodium (HEPARIN SODIUM) 0 .STK-MED ONE . ROUTE (DC) Lidocaine HCl (XYLOCAINE) 0 .STK-MED ONE .ROUTE (DC) Midazolam HCl (VERSED) 0 .STK-MED ONE .ROUTE (DC ) Ondansetron HCl (ZOFRAN) 0 .STK-MED ONE .ROUTE ( DC) Propofol (DIPRIVAN 200MG/20ML INJECTION) 20 ML . STK-MED ONE IV (DC) Alteplase, Recombinant (CATHFLO ACTIVASE) 0 .STK -MED ONE .ROUTE (DC) Fentanyl Citrate (SUBLIMAZE) 100 MCG PACU Q10MIN PRN PRN IV (DC) Fentanyl Citrate (SUBLIMAZE) 50 MCG PACU Q10MIN PRN PRN IV (DC) Hydralazine HCl (APRESOLINE) 5 MG PACU Q10MIN MO N PRN IV (DC) Hydrocodone Bitart/Acetaminophen (NORCO 5/325) 1 TAB PACU ONCE PO (DC) Hydromorphone HCl (DILAUDID) 1 MG PACU Q10MIN MO N PRN IV (DC) Hydromorphone HCl (DILAUDID) 0.5 MG PACU Q5MIN P RN PRN IV (DC) Insulin Human Lispro (HUMALOG) 0 PACU ONCE PRN S UBQ (DC) Labetalol HCl (LABETALOL HCL) 5 MG PACU Q10MIN P RN PRN IV (DC) Lactated Ringer's (LACTATED RINGERS) 1,000 ML .Q 24H IV (DC) Meperidine HCl (DEMEROL 50MG/ML) 12.5 MG PACU ON CE PRN IV (DC) Morphine Sulfate (morphine SULFATE) 2 MG PACU Q1 0MIN PRN PRN IV (DC) Ondansetron HCl (ZOFRAN) 4 MG PACU ONCE PRN IV ( DC) Ropivacaine (NAROPIN 0.5% 150 MG/30mL) 150 MG DIR PRN LOCAL (DC) Tramadol HCl (ULTRAM) 50 MG PACU ONCE PO (DC) Acetaminophen (TYLENOL EXTRA STRENGTH) 1,000 MG PREOP ONCALL PO (CKD) Gabapentin (NEURONTIN) 200 MG PREOP ONCALL PO (C KD) Oseltamivir Phosphate (TAMIFLU) 30 MG MOWEFR PO Cefepime HCl (MAXIPIME) 1 GM Q24H IV Sodium Chloride (SODIUM CHLORIDE) 10 ML Miscellaneous Information (VANCOMYCIN PHARMACY T O DOSE) 1 EACH ASDIR IV (CKD) Silver Sulfadiazine (SILVADENE 1% 50 GM CREAM) 1 APPLIC AC BK TOPICAL Insulin Human Lispro (HUMALOG) 0 AC HS SUBQ Amlodipine Besylate (NORVASC) 10 MG DAILY PO Cholecalciferol (VITAMIN D) 2,000 INTL.UNITS CARMENZA LY PO (CKD) Gabapentin (NEURONTIN) 100 MG DAILY PO Pantoprazole (PROTONIX) 40 MG DAILY PO Atorvastatin Calcium (LIPITOR) 20 MG BEDTIME PO Tacrolimus (PROGRAF) 1 MG BID PO Albumin Human (ALBUMINAR-25%) 12.5 GM ASDIR PRN IV Heparin Sodium (Porcine) (HEPARIN SODIUM) 3,000 UNIT ASDIR PRN DIALYSIS Lidocaine HCl (LIDOCAINE HCL/PF) 0.5 ML ASDIR MO N I-DERMAL (CKD) Mannitol (MANNITOL 25% 12.5GM/50ML) 12.5 GM ASDI R PRN IV Sodium Chloride (SODIUM CHLORIDE 0.9%) 2,000 ML ASDIR PRN IV Sodium Chloride (SODIUM CHLORIDE) 5 ML ASDIR PRN IV Sodium Chloride (SODIUM CHLORIDE) 10 ML ASDIR MO N IV Sodium Chloride (SODIUM CHLORIDE 0.9%) 250 ML DIR PRN IV Acetaminophen (TYLENOL) 650 MG Q4H PRN PRN PO Acetaminophen/Codeine Phosphate (TYLENOL W CODEI NE NO.3) 1 TAB Q4H PRN PRN PO Clonidine HCl (CATAPRES) 0.1 MG TID PRN PO Docusate Sodium (COLACE) 100 MG BID PRN PRN PO Hydralazine HCl (APRESOLINE) 10 MG Q6H PRN PRN I V Hydrocodone Bitart/Acetaminophen (NORCO 5/325) 1 TAB Q6H PRN PRN PO Zolpidem Tartrate (AMBIEN) 5 MG BEDTIME PRN PRN PO Physical Exam General appearance: alert, no acute distress Head/eyes: atraumatic, normocephalic ENT: normal nose Neck: non-tender, supple/no meningismus Cardiovascular: normal heart sounds, no rub Respiratory: aerating well, symmetric expansion Abdomen: non-tender, soft Genitourinary: no flank pain Extremities: pitting edema, non-tender Musculoskeletal: no CVA tenderness, no tendernes s Neuro/VACATION GUIDE: alert, normal speech Skin: dry, intact Results Findings/Data: Laboratory Tests 04/27 04/26 04/26 04/26 04/25 0712 1540 0709 0530 1554 Chemistry Sodium (134 - 147 mEq/L) 139 Potassium (3.4 - 5.0 mEq/L) 4.2 Chloride (100 - 108 mEq/L) 101 Carbon Dioxide (21 - 33 mEq/l) 23 Anion Gap (0 - 20) 19 BUN (7 - 18 mg/dL) 32 H Creatinine (0.6 - 1.3 mg/dL) 8.8 H Glomerular Filtr Rate (80 - 90) 4.5 L Glucose (70 - 110 mg/dL) 104 POC Glucose (70 - 110 MG/DL) 207 H 120 H 119 H 121 H Calcium (8.0 - 10.5 mg/dL) 8.3 04/25 04/25 04/25 04/25 04/24 1325 1118 0712 0500 2049 Chemistry Sodium (134 - 147 mEq/L) 139 Potassium (3.4 - 5.0 mEq/L) 3.8 Chloride (100 - 108 mEq/L) 101 Carbon Dioxide (21 - 33 mEq/l) 26 Anion Gap (0 - 20) 16 BUN (7 - 18 mg/dL) 22 H Creatinine (0.6 - 1.3 mg/dL) 6.4 H Glomerular Filtr Rate (80 - 90) 6.6 L Glucose (70 - 110 mg/dL) 158 H POC Glucose (70 - 110 MG/DL) 172 H 164 H 248 H Lactic Acid (0.4 - 1.9 mmol/L) 1.1 Calcium (8.0 - 10.5 mg/dL) 8.1 04/24 04/24 1549 1142 Chemistry POC Glucose (70 - 110 MG/DL) 205 H 172 H Laboratory Tests 04/27 04/26 04/25 04/24 0500 0530 0500 1721 Hematology WBC (4.5 - 11.0 x10 3/uL) 3.2 L 4.3 L 4.4 L RBC (3.54 - 5.02 x10 6/uL) 5.07 H 4.75 4.92 Hgb (11.0 - 15.0 g/dL) 12.5 12.0 12.4 Hct (33.0 - 45.0 %) 41.6 40.0 41.4 MCV (81.0 - 99.0 fL) 82.1 84.2 84.1 MCH (27.0 - 33.0 pg) 24.7 L 25.3 L 25.2 L MCHC (33.0 - 37.0 g/dL) 30.0 L 30.0 L 30.0 L RDW (11.5 - 14.5 %) 17.4 H 18.0 H 18.1 H Plt Count (150 - 400 x10 3/uL) 197 202 179 MPV (7.0 - 9.0 fL) 10.2 H 11.0 H 10.1 H Neut % (Auto) (56.0 - 77.0 %) 75.1 62.0 64.4 Lymph % (Auto) (14.0 - 32.0 %) 14.2 23.5 19.3 [place] % (Auto) (4.8 - 9.0 %) 10.1 H 13.1 H 14.2 H Eos % (Auto) (0.3 - 3.7 %) 0.0 L 0.7 1.4 Baso % (Auto) (0.0 - 2.0 %) 0.3 0.5 0.5 Neut # (Auto) (2.0 - 7.6 x10 3/uL) 2.38 2.66 2. 81 Lymph # (Auto) (1.0 - 3.8 x10 3/uL) 0.45 L 1.01 0.84 L [place] # (Auto) (0.1 - 0.8 x10 3/uL) 0.32 0.56 0. 62 Eos # (Auto) (0.0 - 0.2 x10 3/uL) 0.00 0.03 0.0 6 Baso # (Auto) (0.0 - 0.2 x10 3/uL) 0.01 0.02 0. 02 Abs Immat Gran (auto) (0.00 - 0.03 x10 3/uL) 0. 01 0.01 0.01 Add Manual Diff NO NO NO Immature Gran % (0.0 - 2.0 %) 0.3 0.2 0.2 Nucleated RBC % (0 - 0 %) 0.0 0.0 0.0 Nucleated RBCs # (Man) (0.0 - 0.1 x10 3/uL) 0.0 0 0.00 0.00 ESR Westergren (0 - 20 mm/hr) 14 Laboratory Tests 04/25 1430 Serology SARS-CoV-2 Ag (Rapid) (Negative) Negative Microbiology Date/Time Procedure - Status Source Growth 04/25 1430 Influenza Virus Type B Antigen - COM P NASAL 04/25 1430 Influenza Virus Type A Antigen - COM P NASAL Recent Impressions: ULTRASOUND - DOP ART SGL LEVEL REGINE 04/25 1103 Report Impression - Status: SIGNED Entered: 04/25/2022 1130 IMPRESSION: Findings consistent with severe bilateral infrap opliteal peripheral vascular disease. Impression By: [email or web address] - Ivette montero M.D. RADIOLOGY - XR FOOT 3 + V RT 04/25 1558 Report Impression - Status: SIGNED Entered: 04/26/2022 0558 IMPRESSION: No acute bony abnormalities. Impression By: [email or web address] - Nick Johnson M.D. MAGNETIC RESONANCE IMAGING - MRI LOW EXT W/O CON T RT 04/26 1148 Report Impression - Status: SIGNED Entered: 04/26/2022 1312 IMPRESSION: 1. Small soft tissue wound plantar aspect of the heel. Negative for abscess or osteomyelitis. 2. Chronic plantar fasciitis without tear. 3. Small tibiotalar joint effusion. Mild degener ative changes. 4. Atrophy of the musculature of the foot likely chronic denervation. Impression By: [email or web address] - Effie Lara Laboratory Tests 04/27 04/26 0712 1540 Chemistry POC Glucose (70 - 110 MG/DL) 207 H 120 H Laboratory Tests 04/27 0500 Hematology WBC (4.5 - 11.0 x10 3/uL) 3.2 L RBC (3.54 - 5.02 x10 6/uL) 5.07 H Hgb (11.0 - 15.0 g/dL) 12.5 Hct (33.0 - 45.0 %) 41.6 MCV (81.0 - 99.0 fL) 82.1 MCH (27.0 - 33.0 pg) 24.7 L MCHC (33.0 - 37.0 g/dL) 30.0 L RDW (11.5 - 14.5 %) 17.4 H Plt Count (150 - 400 x10 3/uL) 197 MPV (7.0 - 9.0 fL) 10.2 H Neut % (Auto) (56.0 - 77.0 %) 75.1 Lymph % (Auto) (14.0 - 32.0 %) 14.2 [place] % (Auto) (4.8 - 9.0 %) 10.1 H Eos % (Auto) (0.3 - 3.7 %) 0.0 L Baso % (Auto) (0.0 - 2.0 %) 0.3 Neut # (Auto) (2.0 - 7.6 x10 3/uL) 2.38 Lymph # (Auto) (1.0 - 3.8 x10 3/uL) 0.45 L [place] # (Auto) (0.1 - 0.8 x10 3/uL) 0.32 Eos # (Auto) (0.0 - 0.2 x10 3/uL) 0.00 Baso # (Auto) (0.0 - 0.2 x10 3/uL) 0.01 Abs Immat Gran (auto) (0.00 - 0.03 x10 3/uL) 0. 01 Add Manual Diff NO Immature Gran % (0.0 - 2.0 %) 0.3 Nucleated RBC % (0 - 0 %) 0.0 Nucleated RBCs # (Man) (0.0 - 0.1 x10 3/uL) 0.0 0 Diagnosis, Assessment Plan Free Text A P: Patient seen and evaluated, discussed with care team, images and laboratories reviewed. History of hypertension: Monitor blood p ressure closely and adjust medications as needed Diabetes mellitus: Insulin: Monitor bloo d sugar closely adjust insulin dose as needed. End-stage renal disease on chronic hemod ialysis, Tuesday, Tuesday and Tuesday, last reported hemodialysis was on Tuesday. Clotted AV fistula: Vascular surgery was consult ed. Hyperkalemia: Discussed with vascular surgery, w ill place temporary dialysis catheter, plan for hemodialy sis for 2 hours tonight followed by full session in the morning. 04/24/2022 status post acute dialysis catheter placement and dialysis for 2 hours last night, plan for dialysis today, 4 hours, 2K , ultrafiltration 2 to 3 L if tolerated. Hemoglobin this morning 11.7, platele t 226, blood count 3.5, seen during HD. 04/25/2022 laboratories this morning showed sodiu m 139, potassium 3.8, CO2 26, creatinine 6.4, hemoglobin 12.4, platelet 179, b lood count 4.4, last hemodialysis on Tuesday, next hemodialysis for Tuesday. 04/26/2022 laboratory this morning showed sodium 139, potassium 4.2, CO2 23, creatinine 8.8, hemoglobin 12, platelet 202, whi te blood count 4.3. Plan for hemodialysis today, 4 hours, 3K, ultrafiltration 2 to 3 L as tolerated. 04/27/2022 status post hemodialysis yesterday, st atus post AV fistula thrombectomy and lower extremity angiogram and i ntervention, hemoglobin this morning 12.5, platelet 197, blood count 3.2, oanh n for dialysis in the morning Electronically Signed by Demetrius Barraza MD on at 1030 RPT #:[id number] END OF REPORT 2022-04-26 18:42:00-00:00 [facility] Note REPORT#:[id number] REPORT STATUS: Signed DATE:04/26/22 TIME: 1841 PATIENT: PAOLA MISHRA UNIT #: [id number] ROOM/BED: [address] : 57 AGE: 66 SEX: F ATTEND: Marcella Young MD ADM AUTHOR: Delma Saucedo DPM * ALL edits or amendments must be made on the [employer]/computer document * Subjective Patient reports: no complaints Objective General VS: Last Documented: Result Date Time Pulse Ox 98 04/26 1730 B/P 129/63 04/26 1730 Pulse 82 04/26 1730 Resp 12 04/26 1730 O2 Delivery Room air 04/26 1535 Temp 36.3 04/26 1535 B/P Mean 111.4 04/26 0711 PATIENT WEIGHT: Weight (lb): Weight (oz): Weight (kg): 54.545 Medications: Active Meds + DC'd Last 24 Hrs Clopidogrel Bisulfate (Plavix) 75 MG DAILY PO (D C) Vancomycin HCl (VANCOMYCIN HCL) 500 MG ONCE ONE IV Sodium Chloride (SODIUM CHLORIDE 0.9% 100 ML) 1 00 ML Clopidogrel Bisulfate (Plavix) 75 MG DAILY PO Clopidogrel Bisulfate (Plavix) 0 .STK-MED ONE .R OUTE (DC) Dextrose/Water (DEXTROSE 10% IN WATER) 125 ML DIR PRN IV (CKD) Dextrose/Water (DEXTROSE 10% IN WATER) 250 ML DIR PRN IV (CKD) Glucagon (GLUCAGON) 1 MG ASDIR PRN IM Heparin Sodium (HEPARIN SODIUM) 0 .STK-MED ONE . ROUTE (DC) Alteplase, Recombinant (CATHFLO ACTIVASE) 0 .STK -MED ONE .ROUTE (DC) Fentanyl Citrate (SUBLIMAZE) 0 .STK-MED ONE .ROU TE (DC) Midazolam HCl (VERSED) 0 .STK-MED ONE .ROUTE (DC ) Dexamethasone Sodium Phosphate (DECADRON) 0 .STK -MED ONE .ROUTE (DC) Fentanyl Citrate (SUBLIMAZE) 0 .STK-MED ONE .ROU TE (DC) Heparin Sodium (HEPARIN SODIUM) 0 .STK-MED ONE . ROUTE (DC) Lidocaine HCl (XYLOCAINE) 0 .STK-MED ONE .ROUTE (DC) Midazolam HCl (VERSED) 0 .STK-MED ONE .ROUTE (DC ) Ondansetron HCl (ZOFRAN) 0 .STK-MED ONE .ROUTE ( DC) Propofol (DIPRIVAN 200MG/20ML INJECTION) 20 ML . STK-MED ONE IV (DC) Alteplase, Recombinant (CATHFLO ACTIVASE) 0 .STK -MED ONE .ROUTE (DC) Fentanyl Citrate (SUBLIMAZE) 100 MCG PACU Q10MIN PRN PRN IV Fentanyl Citrate (SUBLIMAZE) 50 MCG PACU Q10MIN PRN PRN IV Hydralazine HCl (APRESOLINE) 5 MG PACU Q10MIN MO N PRN IV Hydrocodone Bitart/Acetaminophen (NORCO 5/325) 1 TAB PACU ONCE PO (CKD) Hydromorphone HCl (DILAUDID) 1 MG PACU Q10MIN MO N PRN IV Hydromorphone HCl (DILAUDID) 0.5 MG PACU Q5MIN P RN PRN IV Insulin Human Lispro (HUMALOG) 0 PACU ONCE PRN S UBQ Labetalol HCl (LABETALOL HCL) 5 MG PACU Q10MIN P RN PRN IV Lactated Ringer's (LACTATED RINGERS) 1,000 ML .Q 24H IV Meperidine HCl (DEMEROL 50MG/ML) 12.5 MG PACU ON CE PRN IV Morphine Sulfate (morphine SULFATE) 2 MG PACU Q1 0MIN PRN PRN IV Ondansetron HCl (ZOFRAN) 4 MG PACU ONCE PRN IV Ropivacaine (NAROPIN 0.5% 150 MG/30mL) 150 MG DIR PRN LOCAL Tramadol HCl (ULTRAM) 50 MG PACU ONCE PO (CKD) Acetaminophen (TYLENOL EXTRA STRENGTH) 1,000 MG PREOP ONCALL PO (CKD) Gabapentin (NEURONTIN) 200 MG PREOP ONCALL PO (C KD) Oseltamivir Phosphate (TAMIFLU) 30 MG MOWEFR PO Cefepime HCl (MAXIPIME) 1 GM Q24H IV Sodium Chloride (SODIUM CHLORIDE) 10 ML Miscellaneous Information (VANCOMYCIN PHARMACY T O DOSE) 1 EACH ASDIR IV (CKD) Silver Sulfadiazine (SILVADENE 1% 50 GM CREAM) 1 APPLIC AC BK TOPICAL Insulin Human Lispro (HUMALOG) 0 AC HS SUBQ Amlodipine Besylate (NORVASC) 10 MG DAILY PO Cholecalciferol (VITAMIN D) 2,000 INTL.UNITS CARMENZA LY PO (CKD) Gabapentin (NEURONTIN) 100 MG DAILY PO Pantoprazole (PROTONIX) 40 MG DAILY PO Atorvastatin Calcium (LIPITOR) 20 MG BEDTIME PO Tacrolimus (PROGRAF) 1 MG BID PO Albumin Human (ALBUMINAR-25%) 12.5 GM ASDIR PRN IV Heparin Sodium (Porcine) (HEPARIN SODIUM) 3,000 UNIT ASDIR PRN DIALYSIS Lidocaine HCl (LIDOCAINE HCL/PF) 0.5 ML ASDIR MO N I-DERMAL (CKD) Mannitol (MANNITOL 25% 12.5GM/50ML) 12.5 GM ASDI R PRN IV Sodium Chloride (SODIUM CHLORIDE 0.9%) 2,000 ML ASDIR PRN IV Sodium Chloride (SODIUM CHLORIDE) 5 ML ASDIR PRN IV Sodium Chloride (SODIUM CHLORIDE) 10 ML ASDIR MO N IV Sodium Chloride (SODIUM CHLORIDE 0.9%) 250 ML DIR PRN IV Acetaminophen (TYLENOL) 650 MG Q4H PRN PRN PO Acetaminophen/Codeine Phosphate (TYLENOL W CODEI NE NO.3) 1 TAB Q4H PRN PRN PO Clonidine HCl (CATAPRES) 0.1 MG TID PRN PO Docusate Sodium (COLACE) 100 MG BID PRN PRN PO Hydralazine HCl (APRESOLINE) 10 MG Q6H PRN PRN I V Hydrocodone Bitart/Acetaminophen (NORCO 5/325) 1 TAB Q6H PRN PRN PO Zolpidem Tartrate (AMBIEN) 5 MG BEDTIME PRN PRN PO Dietitian nutrition assessment The data set between the solid lines has been im ported from the dietitian's assessment. BMI Calculated: 22.7 Nutrition related diagnosis: Nutrition diagnosis details: Nutrition problem: Nutrition etiology: Nutrition signs and symptoms: Nutrition prescription: Dietitian name: Assessment completed: Physical Exam Wound/incision: Location: Posterior plantar lateral heel right foot Extremities: Left moves all, Left no cyanosis, Left abnormal capillary refill, Left cool, Left decreased range of motion, Right moves all, Right no cyanosis, Right abnormal capillary refill, Right cool, Right dec reased range of motion LE vascular pulse assess: Nonpalpable R posterior tibialis, Nonpalpable L posterior tibialis, 1+ R dorsalis pedis, 1+ L dorsalis pedis Reflex testing: Monofilament: DIM Toes, DIM Ball of foot, DIM Arch, DIM Heel Reflexes: Achilles: 2+ Babinski: 0 Musculoskeletal: Musculoskeletal: decreased ROM, pain on palpati on to ulcerative site right heel Neuro/VACATION GUIDE: alert, oriented X 3, sensory deficit Skin: cool, erythema Ulcer: Location: heel (right foot) Type: pressure Appearance: granulation tissue, slough Drainage: serosanguineous, mild Depth: muscle w/out necrosis Debo wound: cool, dry, erythema Stage (pressure): 4 Results Findings/Data: Laboratory Tests: 04/26 04/26 04/26 1540 0709 0530 Chemistry Sodium (134 - 147 mEq/L) 139 Potassium (3.4 - 5.0 mEq/L) 4.2 Chloride (100 - 108 mEq/L) 101 Carbon Dioxide (21 - 33 mEq/l) 23 Anion Gap (0 - 20) 19 BUN (7 - 18 mg/dL) 32 H Creatinine (0.6 - 1.3 mg/dL) 8.8 H Glomerular Filtr Rate (80 - 90) 4.5 L Glucose (70 - 110 mg/dL) 104 POC Glucose (70 - 110 MG/DL) 120 H 119 H Calcium (8.0 - 10.5 mg/dL) 8.3 Hematology WBC (4.5 - 11.0 x10 3/uL) 4.3 L RBC (3.54 - 5.02 x10 6/uL) 4.75 Hgb (11.0 - 15.0 g/dL) 12.0 Hct (33.0 - 45.0 %) 40.0 MCV (81.0 - 99.0 fL) 84.2 MCH (27.0 - 33.0 pg) 25.3 L MCHC (33.0 - 37.0 g/dL) 30.0 L RDW (11.5 - 14.5 %) 18.0 H Plt Count (150 - 400 x10 3/uL) 202 MPV (7.0 - 9.0 fL) 11.0 H Neut % (Auto) (56.0 - 77.0 %) 62.0 Lymph % (Auto) (14.0 - 32.0 %) 23.5 [place] % (Auto) (4.8 - 9.0 %) 13.1 H Eos % (Auto) (0.3 - 3.7 %) 0.7 Baso % (Auto) (0.0 - 2.0 %) 0.5 Neut # (Auto) (2.0 - 7.6 x10 3/uL) 2.66 Lymph # (Auto) (1.0 - 3.8 x10 3/uL) 1.01 [place] # (Auto) (0.1 - 0.8 x10 3/uL) 0.56 Eos # (Auto) (0.0 - 0.2 x10 3/uL) 0.03 Baso # (Auto) (0.0 - 0.2 x10 3/uL) 0.02 Abs Immat Gran (auto) (0.00 - 0.03 x10 3/uL) 0. 01 Add Manual Diff NO Immature Gran % (0.0 - 2.0 %) 0.2 Nucleated RBC % (0 - 0 %) 0.0 Nucleated RBCs # (Man) (0.0 - 0.1 x10 3/uL) 0.0 0 Recent Impressions: MAGNETIC [facility]ON[facility] IMAGING - MRI LOW EXT W/O CON T RT 04/26 1148 Report Impression - Status: SIGNED Entered: 04/26/2022 1312 IMPRESSION: 1. Small soft tissue wound plantar aspect of the heel. Negative for abscess or osteomyelitis. 2. Chronic plantar fasciitis without tear. 3. Small tibiotalar joint effusion. Mild degener ative changes. 4. Atrophy of the musculature of the foot likely chronic denervation. 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 All questions answered to their understanding. Placed orders for baseline x-rays 3 views right foot VASCULAR EVAL. Continue IV abx, final wound culture and sensiti vity Continue with wound care: Cleanse wound right he el with vashe followed by application of silvadene cream and DSD once te y. Continue with Prevalon boots. Will continue to follow. Electronically Signed by Delma Saucedo DPM on 09/22 at 0786 RPT #:[id number] END OF REPORT 2022-04-26 16:52:00-00:00 [facility] ([facility]) Infectious Dis. Progress Note REPORT#:[id number] REPORT STATUS: Signed DATE:04/26/22 TIME: 1651 PATIENT: PAOLA MISHRA UNIT #: [id number] ROOM/BED: 6605-1 : 57 AGE: 66 SEX: F ATTEND: Marcella Young MD ADM AUTHOR: Kailey Contreras MD, MD * ALL edits or amendments must be made on the [employer]/computer document * Subjective Chief complaint: Right heel gangrene HPI: The patient is a 66-year-old female wit h past medical history significant for hypertensio n, diabetes, end-stage renal disease, on dialysis on Tuesday, Tuesday and , admitted to [facility] with a clotted AV fistula. The patient also had reported right heel wound with purulent drainage and complai nt of right heel pain. On admission to the hospital, nephrology was consulted and the p atient was started on vancomycin, and Infectious D isease is consulted for evaluation of fever. At the time of my consultation, the patient is lying in bed, reports fevers and chills for last 24 hours. The patie nt reports that she has taken Moderna COVID vaccine with booster. She is not sure as to whether she has taken flu shot. Does report chills and body aches. Reports ri ght heel severe foul smelling drainage and pain. Patient reports: No: complaints. Review of Systems Constitutional: Denies: chills, fatigue. Skin: Denies: abrasion, contusion. Allergy/Immun: Denies: allergic reaction, anaphylaxis. Eyes: Denies: redness, discharge. ENT: Denies: ear drainage, ear ringing. Respiratory: Denies: [place] (dyspnea on exertion), hemoptysis. Cardiovascular: Denies: chest pain, [place] (dyspnea on exertion). Objective General VS/I O: Vital Signs Date Temp Pulse Resp B/P B/P Mean Pulse Ox FiO2 04/25-04/26 97.3-100.2 68-87 12-18 124-170/61-82 97.8-111.4 94-100 Last Documented: Result Date Time Pulse Ox 98 04/26 1630 B/P 143/68 04/26 1630 Pulse 78 04/26 1630 Resp 18 04/26 1630 O2 Delivery Room air 04/26 1535 Temp 97.3 04/26 1535 B/P Mean 111.4 04/26 0711 Vital Signs: Date Time Temp Pulse Resp B/P B/P Pulse O2 O2 F low FiO2 Mean Ox Delivery Rate 04/26 1630 78 18 143/68 98 04/26 1615 76 16 141/65 97 04/26 1605 75 16 144/69 97 04/26 1600 72 12 148/70 97 04/26 1555 72 12 149/70 97 04/26 1545 68 12 140/65 97 04/26 1540 74 12 124/61 100 04/26 1535 97.3 72 12 135/71 100 Room air 04/26 0711 97.5 76 15 170/82 111.4 99 Room air 04/26 0437 72 16 163/73 102.8 96 Room air 04/25 2352 100.2 86 16 145/74 97.8 94 Room air 04/25 1945 100.0 87 16 161/74 103.0 94 Room air PATIENT WEIGHT: Weight (lb): Weight (oz): Weight (kg): 54.545 Medications: Active Meds + DC'd Last 24 Hrs Clopidogrel Bisulfate (Plavix) 75 MG DAILY PO Vancomycin HCl (VANCOMYCIN HCL) 500 MG ONCE ONE IV Sodium Chloride (SODIUM CHLORIDE 0.9% 100 ML) 1 00 ML Dextrose/Water (DEXTROSE 10% IN WATER) 125 ML DIR PRN IV (CKD) Dextrose/Water (DEXTROSE 10% IN WATER) 250 ML DIR PRN IV (CKD) Glucagon (GLUCAGON) 1 MG ASDIR PRN IM Heparin Sodium (HEPARIN SODIUM) 0 .STK-MED ONE . ROUTE (DC) Alteplase, Recombinant (CATHFLO ACTIVASE) 0 .STK -MED ONE .ROUTE (DC) Fentanyl Citrate (SUBLIMAZE) 0 .STK-MED ONE .ROU TE (DC) Midazolam HCl (VERSED) 0 .STK-MED ONE .ROUTE (DC ) Dexamethasone Sodium Phosphate (DECADRON) 0 .STK -MED ONE .ROUTE (DC) Fentanyl Citrate (SUBLIMAZE) 0 .STK-MED ONE .ROU TE (DC) Heparin Sodium (HEPARIN SODIUM) 0 .STK-MED ONE . ROUTE (DC) Lidocaine HCl (XYLOCAINE) 0 .STK-MED ONE .ROUTE (DC) Midazolam HCl (VERSED) 0 .STK-MED ONE .ROUTE (DC ) Ondansetron HCl (ZOFRAN) 0 .STK-MED ONE .ROUTE (DC) Propofol (DIPRIVAN 200MG/20ML INJECTION) 20 ML . STK-MED ONE IV (DC) Alteplase, Recombinant (CATHFLO ACTIVASE) 0 .STK -MED ONE .ROUTE (DC) Fentanyl Citrate (SUBLIMAZE) 100 MCG PACU Q10MIN PRN PRN IV Fentanyl Citrate (SUBLIMAZE) 50 MCG PACU Q10MIN PRN PRN IV Hydralazine HCl (APRESOLINE) 5 MG PACU Q10MIN MO N PRN IV Hydrocodone Bitart/Acetaminophen (NORCO 5/325) 1 TAB PACU ONCE PO (CKD) Hydromorphone HCl (DILAUDID) 1 MG PACU Q10MIN MO N PRN IV Hydromorphone HCl (DILAUDID) 0.5 MG PACU Q5MIN P RN PRN IV Insulin Human Lispro (HUMALOG) 0 PACU ONCE PRN S UBQ Labetalol HCl (LABETALOL HCL) 5 MG PACU Q10MIN P RN PRN IV Lactated Ringer's (LACTATED RINGERS) 1,000 ML .Q 24H IV Meperidine HCl (DEMEROL 50MG/ML) 12.5 MG PACU ON CE PRN IV Morphine Sulfate (morphine SULFATE) 2 MG PACU Q1 0MIN PRN PRN IV Ondansetron HCl (ZOFRAN) 4 MG PACU ONCE PRN IV Ropivacaine (NAROPIN 0.5% 150 MG/30mL) 150 MG DIR PRN LOCAL Tramadol HCl (ULTRAM) 50 MG PACU ONCE PO (CKD) Acetaminophen (TYLENOL EXTRA STRENGTH) 1,000 MG PREOP ONCALL PO (CKD) Gabapentin (NEURONTIN) 200 MG PREOP ONCALL PO (C KD) Oseltamivir Phosphate (TAMIFLU) 30 MG MOWEFR PO Vancomycin HCl (VANCOMYCIN HCL) 1,250 MG ONCE ON E IV (DC) Sodium Chloride (SODIUM CHLORIDE 0.9%) 250 ML Cefepime HCl (MAXIPIME) 1 GM Q24H IV Sodium Chloride (SODIUM CHLORIDE) 10 ML Miscellaneous Information (VANCOMYCIN PHARMACY T O DOSE) 1 EACH ASDIR IV (CKD) Silver Sulfadiazine (SILVADENE 1% 50 GM CREAM) 1 APPLIC AC BK TOPICAL Insulin Human Lispro (HUMALOG) 0 AC HS SUBQ Amlodipine Besylate (NORVASC) 10 MG DAILY PO Cholecalciferol (VITAMIN D) 2,000 INTL.UNITS CARMENZA LY PO (CKD) Gabapentin (NEURONTIN) 100 MG DAILY PO Pantoprazole (PROTONIX) 40 MG DAILY PO Atorvastatin Calcium (LIPITOR) 20 MG BEDTIME PO Tacrolimus (PROGRAF) 1 MG BID PO Albumin Human (ALBUMINAR-25%) 12.5 GM ASDIR PRN IV Heparin Sodium (Porcine) (HEPARIN SODIUM) 3,000 UNIT ASDIR PRN DIALYSIS Lidocaine HCl (LIDOCAINE HCL/PF) 0.5 ML ASDIR MO N I-DERMAL (CKD) Mannitol (MANNITOL 25% 12.5GM/50ML) 12.5 GM ASDI R PRN IV Sodium Chloride (SODIUM CHLORIDE 0.9%) 2,000 ML ASDIR PRN IV Sodium Chloride (SODIUM CHLORIDE) 5 ML ASDIR PRN IV Sodium Chloride (SODIUM CHLORIDE) 10 ML ASDIR MO N IV Sodium Chloride (SODIUM CHLORIDE 0.9%) 250 ML DIR PRN IV Acetaminophen (TYLENOL) 650 MG Q4H PRN PRN PO Acetaminophen/Codeine Phosphate (TYLENOL W CODEI NE NO.3) 1 TAB Q4H PRN PRN PO Clonidine HCl (CATAPRES) 0.1 MG TID PRN PO Docusate Sodium (COLACE) 100 MG BID PRN PRN PO Hydralazine HCl (APRESOLINE) 10 MG Q6H PRN PRN I V Hydrocodone Bitart/Acetaminophen (NORCO 5/325) 1 TAB Q6H PRN PRN PO Zolpidem Tartrate (AMBIEN) 5 MG BEDTIME PRN PRN PO Physical Exam General appearance: no acute distress Head/Eyes: atraumatic, normocephalic Neck: non-tender, supple/no meningismus Cardiovascular: normal heart sounds, no murmur Respiratory: clear to auscultation, symmetric ex pansion Abdomen: non-tender, soft Extremities: no clubbing Skin: gangrene (R heel wet gangrene) Results Findings/Data: Laboratory Tests 04/26 04/26 04/26 1540 0709 0530 Chemistry Sodium (134 - 147 mEq/L) 139 Potassium (3.4 - 5.0 mEq/L) 4.2 Chloride (100 - 108 mEq/L) 101 Carbon Dioxide (21 - 33 mEq/l) 23 Anion Gap (0 - 20) 19 BUN (7 - 18 mg/dL) 32 H Creatinine (0.6 - 1.3 mg/dL) 8.8 H Glomerular Filtr Rate (80 - 90) 4.5 L Glucose (70 - 110 mg/dL) 104 POC Glucose (70 - 110 MG/DL) 120 H 119 H Calcium (8.0 - 10.5 mg/dL) 8.3 Laboratory Tests 04/26 0530 Hematology WBC (4.5 - 11.0 x10 3/uL) 4.3 L RBC (3.54 - 5.02 x10 6/uL) 4.75 Hgb (11.0 - 15.0 g/dL) 12.0 Hct (33.0 - 45.0 %) 40.0 MCV (81.0 - 99.0 fL) 84.2 MCH (27.0 - 33.0 pg) 25.3 L MCHC (33.0 - 37.0 g/dL) 30.0 L RDW (11.5 - 14.5 %) 18.0 H Plt Count (150 - 400 x10 3/uL) 202 MPV (7.0 - 9.0 fL) 11.0 H Neut % (Auto) (56.0 - 77.0 %) 62.0 Lymph % (Auto) (14.0 - 32.0 %) 23.5 [place] % (Auto) (4.8 - 9.0 %) 13.1 H Eos % (Auto) (0.3 - 3.7 %) 0.7 Baso % (Auto) (0.0 - 2.0 %) 0.5 Neut # (Auto) (2.0 - 7.6 x10 3/uL) 2.66 Lymph # (Auto) (1.0 - 3.8 x10 3/uL) 1.01 [place] # (Auto) (0.1 - 0.8 x10 3/uL) 0.56 Eos # (Auto) (0.0 - 0.2 x10 3/uL) 0.03 Baso # (Auto) (0.0 - 0.2 x10 3/uL) 0.02 Abs Immat Gran (auto) (0.00 - 0.03 x10 3/uL) 0. 01 Add Manual Diff NO Immature Gran % (0.0 - 2.0 %) 0.2 Nucleated RBC % (0 - 0 %) 0.0 Nucleated RBCs # (Man) (0.0 - 0.1 x10 3/uL) 0.0 0 Radiology data: Recent Impressions: MAGNETIC RESONANCE IMAGING - MRI LOW EXT W/O CON T RT 04/26 1148 Report Impression - Status: SIGNED Entered: 04/26/2022 1312 IMPRESSION: 1. Small soft tissue wound plantar aspect of the heel. Negative for abscess or osteomyelitis. 2. Chronic plantar fasciitis without tear. 3. Small tibiotalar joint effusion. Mild degener ative changes. 4. Atrophy of the musculature of the foot likely chronic denervation. Impression By: Nori5 - Effie Lara Results: labs reviewed, patrick l signs reviewed, x-ray personally reviewed, current med profile rev'd Treatment Prophylaxis Treatment Prophylaxis CVC/PICC documentation: The data below has been imported from nursing do cumentation. Any exceptions have been noted below under Provider comments. CVC/PICC insertion date/time: Dialysis catheter triple Internal jugular Right Inserted 04/23/22 2100 Provider comments on imported nursing data: [] Diagnosis, Assessment Plan Problem List/A P: 1. End stage renal disease 2. Dialysis AV fistula malfunction 3. Gangrene of right foot 4. Influenza A 5. Diabetic neuropathy Free Text A P: on Tamiflu 5-day course for Flu A R heel diabetic wet gangrene, no abscess or Oste omyelitis on MRI 04/26 s/p L arm HD AVF and R leg 04/26 On Vanc and cefepime will follow Electronically Signed by Kailey Contreras MD, MD on at 5088 RPT #:[id number] END OF REPORT 2022-04-26 16:10:00-00:00 [facility] ([facility]) Operative Note - Full REPORT#:[id number] REPORT STATUS: Signed DATE:04/26/22 TIME: 1610 PATIENT: PAOLA MISHRA UNIT #: [id number] ROOM/BED: [place] [address] : 57 AGE: 66 SEX: F ATTEND: Marcella Young MD ADM AUTHOR: Az Francois MD * ALL edits or amendments must be made on the [employer]/computer document * Operative Report ORM Surgeries: Surgery Date and Time: 04/26/2022 1330 Primary Procedure: PERCUTANEOUS THROMBECTOMY LE FT AV Start date: 04/26/22 Start time: 1400 Pre-procedure diagnosis: 1. Thrombosed left arm arteriovenous fistula 2. End stage renal disease 3. Atherosclerosis bois forte arteries right lower e xtremity with heel gangrene Post-procedure diagnosis: same Procedures performed: 1. Percutaneous access left arm brachiobasilic f istula with fistulagram, thrombolysis and percutaneou s thrombectomy with angioplasty (6 mm X 120 mm DCB) and stent (7 mm X 2.5 cm viabahn and 6 mm X 2.5 cm viabahn) of peripheral dialysis segment 86301 2. Percutaneous also guided active access left c ommon femoral artery with images maintained for record [id number] 3. Right posterior tibial artery 0.9 laser ather ectomy with angioplasty 93624 4. Bilateral lower extremity arteriogram 82942 5. Abdominal aortagram 99509 Technique/Procedure: The patient was brought into the op room and pre pped and draped in the usual sterile manner. 10 mg of tPA were infused percut aneously throughout the left upper arm basilic vein under ultrasound guidance . Percutaneous ultrasound- guided active access was obtained to the basilic vein near the arterial anastomosis. Fistulogram was initially c ompleted there. Central venography was also completed. A 6 Eritrean sheath was initially placed and there remaining thrombus was again treated w ith an additional 4 mg of tPA and a volume of 10 cc. After 20 minutes the clot w as macerated and suction thrombectomy was completed with then completion of percutaneous thrombectom y with a 6 mm x 30 mm balloon with angioplasty of the peripheral dialysis segm ent. There were 2 areas of spinal recalcitrant stenosis noted in the distal third and proximal third of the fistula in the basilic vein. The whole vein was angioplastied with a 6 mm x 120 mm drug-coated balloon but the stenosis persisted although there was good flow through the fistula. The stenosis was severe to greater than 70%. Focally greater than 80%. The sheath was exchanged to a 7 [place]an sheath and the wire was exchanged with 0.018 wir e and a 7 mm x 2.5 cm Viabahn stent graft was placed in the outflow basilic vein and a 6 mm x 2.5 cm Viabahn stent graft was placed in the inflow basilic vein and post catia oplastied with a 7 mm conquest balloon proximally and a 6 mm balloon distally. This yie lded good flow extending through the fistula. Retrograde angiography demo nstrated patent anastomosis. At this time the sheath was removed and 2-0 nylon stitch was used to close the skin at the access site without difficulty. At this time percutaneous ultrasound-yvette ded active access was obtained to left common femoral artery microcatheter syst em and exchanged over a Glidewire to 6 Erit[place]an 10 cm sheath. An IVUS catheter was place d in the abdominal aorta and abdominal gram was performed. This was then pull ed out aortic bifurcation and Glidewire was used to extend the orifice cathete r down to the right common femoral artery right lower extremity arteriogram was completed. In situ the right distal popliteal artery and distal right lower extremity arteriogram was completed. The patient was f urther heparinized to total during the case of 8000 units of heparin plus additional [address] la [address] in the case. An advantage wire was placed into the posterior ti bial artery and a 6 [place]an 9 cm sheath was advanced to the popliteal artery. The posterior tibial ar ector stenosis was crossed and 0.014 advantage wire and 0.014 crossing catheter was placed in the distal posterior tibial artery just before the plantar artery with angiography to confirm true luminal flow. A 0.014 run-through w sonali was then placed and 0.9 laser atherectomy was completed of the entire le ngth of the posterior tibial artery with postangioplasty with a 2.5 mm balloo n. There was extravasation noted in the midportion of the posterior tibial artery without associated significant hemorrhage. A 2 mm balloon was then insufflated in this region with flow to the plantar arteries as well. Th ere was still minimal extravasation on completion therefore pressure was held and a [facility] Shape Collageical pressure device was placed on the posterior tibi al artery at the location of the injury. Sheath was then pulled back to the left external iliac bethany ry and left lower extremity arteriogram was completed. Angio-Seal de vice was then used to close left groin access without difficulty. The patient t olerated the procedure well. There are no complications. The patient was stable on disc harge to the PACU. Primary Surgeon: Dr. Az Francois Overhead Crane Operator(s): none Anesthesia: general anesthesia Operative findings: Fistulagram demonstrates thrombosis of t he distal extent of the left upper arm basilic vein with remaining basilic vein patent with multifocal areas of stenosis in the midportion a nd in the outflow portion likely associated with the 2 areas before the tunneling . Remaining outflow axillary vein is patent through the left subclavian vein to the brachioc ephalic vein to the supra vena cava to the right atrium. Abdominal gram demonstrates patent abdominal goo d flow extending through the celiac trunk, splenic artery, common hep atic artery, gastroduodenal artery and proper hepatic arteries. The superior mesenteric artery is patent to all branches. Bilateral renal arteries are i nitially patent the right renal artery is occluded and no nephrograms are noted. The in ferior mesenteric artery is patent to the all branches. Bilateral common jolly ac arteries, internal iliac arteries and external iliac arteries are patent. Bilateral common femoral arteries and profunda femoris arteries are paten t. Patient has a patent right renal graft with flow to the previous transplant noted. This is offered the right external iliac artery. Bilateral anterior tibial arteries are patent extending down to the malleo ranjit and severe microvascular disease in the dorsalis pedis and distally. Bilateral tibioperoneal trun ks are patent to the peroneal arteries with flow to branches at the malleolus. Bilateral posterior tibial arteries are patent with diffuse disease to greater than 80% worse in the last third. Severe microvascular disease noted throug hout plantar vessels. Complications: none Estimated blood loss in ml's: none Specimens removed/altered: none Implant(s): stent graft at 1614 RPT #:[id number] END OF REPORT 2022-04-26 15:47:00-00:00 [facility] Brief Op Note REPORT#:[id number] REPORT STATUS: Signed DATE:04/26/22 TIME: 1547 PATIENT: PAOLA MISHRA UNIT #: [id number] ROOM/BED: [place] [address] : 57 AGE: 66 SEX: F ATTEND: Marcella Young MD ADM AUTHOR: Az Francois MD * ALL edits or amendments must be made on the el [employer]/computer document * Op/Inv Proc Note - Brief ORM Surgeries: Surgery Date and Time: 04/26/2022 1330 Primary Procedure: PERCUTANEOUS THROMBECTOMY LE FT AV Pre-procedure diagnosis: 1. Thrombosed left arm arteriovenous fistula 2. End stage renal disease 3. Atherosclerosis bois forte arteries right lower e xtremity with heel gangrene Post-procedure diagnosis: same as pre procedure dx Procedures performed: 1. Percutaneous access left arm brachiobasilic f istula with fistulagram, thrombolysis and percutaneou s thrombectomy with angioplasty (6 mm X 120 mm DCB) and stent (7 mm X 2.5 cm viabahn and 6 mm X 2.5 cm viabahn) of peripheral dialysis segment 68344 2. Percutaneous also guided active access left c ommon femoral artery with images maintained for record [id number] 3. Right posterior tibial artery 0.9 laser ather ectomy with angioplasty 82257 4. Bilateral lower extremity arteriogram 73755 5. Abdominal aortagram 49283 Primary Surgeon: Dr. Az Francois Overhead Crane Operator(s): none Anesthesia: general anesthesia Findings: Fistulagram demonstrates thrombosis of t he distal extent of the left upper arm basilic vein with remaining basilic vein patent with multifocal areas of stenosis in the midportion a nd in the outflow portion likely associated with the 2 areas before the tunneling . Remaining outflow axillary vein is patent through the left subclavian vein to the brachioc ephalic vein to the supra vena cava to the right atrium. Abdominal gram demonstrates patent abdominal goo d flow extending through the celiac trunk, splenic artery, common hep atic artery, gastroduodenal artery and proper hepatic arteries. The superior mesenteric artery is patent to all branches. Bilateral renal arteries are i nitially patent the right renal artery is occluded and no nephrograms are noted. The in ferior mesenteric artery is patent to the all branches. Bilateral common jolly ac arteries, internal iliac arteries and external iliac arteries are patent. Bilateral common femoral arteries and profunda femoris arteries are paten t. Patient has a patent right renal graft with flow to the previous transplant noted. This is offered the right external iliac artery. Bilateral anterior tibial arteries are patent extending down to the malleo ranjit and severe microvascular disease in the dorsalis pedis and distally. Bilateral tibioperoneal trun ks are patent to the peroneal arteries with flow to branches at the malleolus. Bilateral posterior tibial arteries are patent with diffuse disease to greater than 80% worse in the last third. Severe microvascular disease noted throug hout plantar vessels. Complications: none Estimated blood loss in ml's: none Specimens removed/altered: none at 1619 RPT #:[id number] END OF REPORT 2022-04-26 15:00:00-00:00 [facility] REPORT#:[id number] REPORT STATUS: Signed DATE:04/26/22 TIME: 1500 PATIENT: PAOLA MISHRA UNIT #: [id number] ROOM/BED: [place] [address] : 57 AGE: 66 SEX: F ATTEND: Marcella Young MD ADM AUTHOR: Marcella Stewart MD * ALL edits or amendments must be made on the el [employer]/computer document * See Addendum Subjective Chief complaint: Feeling okay No distress Hemodialysis today Review of Systems All systems rev neg: except as marked Objective General VS/I O: Vital Signs Date Temp Pulse Resp B/P B/P Mean Pulse Ox FiO2 04/25-04/26 97.5-100.2 72-87 15-16 145-170/73-82 97.8-111.4 94-99 Last Documented: Result Date Time Pulse Ox 99 04/26 0711 B/P 170/82 04/26 0711 B/P Mean 111.4 04/26 0711 O2 Delivery Room air 04/26 0711 Temp 97.5 04/26 0711 Pulse 76 09/26 0711 Resp 15 04/26 0711 PATIENT WEIGHT: Weight (lb): Weight (oz): Weight (kg): 54.545 Medications: Active Meds + DC'd Last 24 Hrs Vancomycin HCl (VANCOMYCIN HCL) 500 MG ONCE ONE IV Sodium Chloride (SODIUM CHLORIDE 0.9% 100 ML) 1 00 ML Heparin Sodium (HEPARIN SODIUM) 0 .STK-MED ONE . ROUTE (DC) Alteplase, Recombinant (CATHFLO ACTIVASE) 0 .STK -MED ONE .ROUTE (DC) Fentanyl Citrate (SUBLIMAZE) 0 .STK-MED ONE .ROU TE (DC) Midazolam HCl (VERSED) 0 .STK-MED ONE .ROUTE (DC ) Dexamethasone Sodium Phosphate (DECADRON) 0 .STK -MED ONE .ROUTE (DC) Fentanyl Citrate (SUBLIMAZE) 0 .STK-MED ONE .ROU TE (DC) Heparin Sodium (HEPARIN SODIUM) 0 .STK-MED ONE . ROUTE (DC) Lidocaine HCl (XYLOCAINE) 0 .STK-MED ONE .ROUTE (DC) Midazolam HCl (VERSED) 0 .STK-MED ONE .ROUTE (DC ) Ondansetron HCl (ZOFRAN) 0 .STK-MED ONE .ROUTE ( DC) Propofol (DIPRIVAN 200MG/20ML INJECTION) 20 ML . STK-MED ONE IV (DC) Alteplase, Recombinant (CATHFLO ACTIVASE) 0 .STK -MED ONE .ROUTE (DC) Fentanyl Citrate (SUBLIMAZE) 100 MCG PACU Q10MIN PRN PRN IV Fentanyl Citrate (SUBLIMAZE) 50 MCG PACU Q10MIN PRN PRN IV Hydralazine HCl (APRESOLINE) 5 MG PACU Q10MIN MO N PRN IV Hydrocodone Bitart/Acetaminophen (NORCO 5/325) 1 TAB PACU ONCE PO (CKD) Hydromorphone HCl (DILAUDID) 1 MG PACU Q10MIN MO N PRN IV Hydromorphone HCl (DILAUDID) 0.5 MG PACU Q5MIN P RN PRN IV Insulin Human Lispro (HUMALOG) 0 PACU ONCE PRN S UBQ Labetalol HCl (LABETALOL HCL) 5 MG PACU Q10MIN P RN PRN IV Lactated Ringer's (LACTATED RINGERS) 1,000 ML .Q 24H IV Meperidine HCl (DEMEROL 50MG/ML) 12.5 MG PACU ON CE PRN IV Morphine Sulfate (morphine SULFATE) 2 MG PACU Q1 0MIN PRN PRN IV Ondansetron HCl (ZOFRAN) 4 MG PACU ONCE PRN IV Ropivacaine (NAROPIN 0.5% 150 MG/30mL) 150 MG DIR PRN LOCAL Tramadol HCl (ULTRAM) 50 MG PACU ONCE PO (CKD) Acetaminophen (TYLENOL EXTRA STRENGTH) 1,000 MG PREOP ONCALL PO (CKD) Gabapentin (NEURONTIN) 200 MG PREOP ONCALL PO (C KD) Oseltamivir Phosphate (TAMIFLU) 30 MG MOWEFR PO Vancomycin HCl (VANCOMYCIN HCL) 1,250 MG ONCE ON E IV (DC) Sodium Chloride (SODIUM CHLORIDE 0.9%) 250 ML Cefepime HCl (MAXIPIME) 1 GM Q24H IV Sodium Chloride (SODIUM CHLORIDE) 10 ML Miscellaneous Information (VANCOMYCIN PHARMACY T O DOSE) 1 EACH ASDIR IV (CKD) Silver Sulfadiazine (SILVADENE 1% 50 GM CREAM) 1 APPLIC AC BK TOPICAL Insulin Human Lispro (HUMALOG) 0 AC HS SUBQ Amlodipine Besylate (NORVASC) 10 MG DAILY PO Cholecalciferol (VITAMIN D) 2,000 INTL.UNITS CARMENZA LY PO (CKD) Gabapentin (NEURONTIN) 100 MG DAILY PO Pantoprazole (PROTONIX) 40 MG DAILY PO Atorvastatin Calcium (LIPITOR) 20 MG BEDTIME PO Tacrolimus (PROGRAF) 1 MG BID PO Albumin Human (ALBUMINAR-25%) 12.5 GM ASDIR PRN IV Heparin Sodium (Porcine) (HEPARIN SODIUM) 3,000 UNIT ASDIR PRN DIALYSIS Lidocaine HCl (LIDOCAINE HCL/PF) 0.5 ML ASDIR MO N I-DERMAL (CKD) Mannitol (MANNITOL 25% 12.5GM/50ML) 12.5 GM ASDI R PRN IV Sodium Chloride (SODIUM CHLORIDE 0.9%) 2,000 ML ASDIR PRN IV Sodium Chloride (SODIUM CHLORIDE) 5 ML ASDIR PRN IV Sodium Chloride (SODIUM CHLORIDE) 10 ML ASDIR MO N IV Sodium Chloride (SODIUM CHLORIDE 0.9%) 250 ML DIR PRN IV Acetaminophen (TYLENOL) 650 MG Q4H PRN PRN PO Acetaminophen/Codeine Phosphate (TYLENOL W CODEI NE NO.3) 1 TAB Q4H PRN PRN PO Clonidine HCl (CATAPRES) 0.1 MG TID PRN PO Docusate Sodium (COLACE) 100 MG BID PRN PRN PO Hydralazine HCl (APRESOLINE) 10 MG Q6H PRN PRN I V Hydrocodone Bitart/Acetaminophen (NORCO 5/325) 1 TAB Q6H PRN PRN PO Zolpidem Tartrate (AMBIEN) 5 MG BEDTIME PRN PRN PO Physical Exam General appearance: alert, awake, oriented Head/eyes: atraumatic, EOMI, normal conjunctiva/ sclera ENT: moist mucosal membranes Neck: full range of motion, non-tender Cardiovascular: normal capillary refill, normal heart sounds, regular rate rhythm Abdomen: soft Musculoskeletal: full range of motion Results Findings/Data: Laboratory Tests 04/26/22 0530: [Embedded Image Not Available] Laboratory Tests 04/26 04/26 04/25 0709 0530 1554 Chemistry Sodium (134 - 147 mEq/L) 139 Potassium (3.4 - 5.0 mEq/L) 4.2 Chloride (100 - 108 mEq/L) 101 Carbon Dioxide (21 - 33 mEq/l) 23 Anion Gap (0 - 20) 19 BUN (7 - 18 mg/dL) 32 H Creatinine (0.6 - 1.3 mg/dL) 8.8 H Glomerular Filtr Rate (80 - 90) 4.5 L Glucose (70 - 110 mg/dL) 104 POC Glucose (70 - 110 MG/DL) 119 H 121 H Calcium (8.0 - 10.5 mg/dL) 8.3 Laboratory Tests 04/26 0530 Hematology WBC (4.5 - 11.0 x10 3/uL) 4.3 L RBC (3.54 - 5.02 x10 6/uL) 4.75 Hgb (11.0 - 15.0 g/dL) 12.0 Hct (33.0 - 45.0 %) 40.0 MCV (81.0 - 99.0 fL) 84.2 MCH (27.0 - 33.0 pg) 25.3 L MCHC (33.0 - 37.0 g/dL) 30.0 L RDW (11.5 - 14.5 %) 18.0 H Plt Count (150 - 400 x10 3/uL) 202 MPV (7.0 - 9.0 fL) 11.0 H Neut % (Auto) (56.0 - 77.0 %) 62.0 Lymph % (Auto) (14.0 - 32.0 %) 23.5 [place] % (Auto) (4.8 - 9.0 %) 13.1 H Eos % (Auto) (0.3 - 3.7 %) 0.7 Baso % (Auto) (0.0 - 2.0 %) 0.5 Neut # (Auto) (2.0 - 7.6 x10 3/uL) 2.66 Lymph # (Auto) (1.0 - 3.8 x10 3/uL) 1.01 [place] # (Auto) (0.1 - 0.8 x10 3/uL) 0.56 Eos # (Auto) (0.0 - 0.2 x10 3/uL) 0.03 Baso # (Auto) (0.0 - 0.2 x10 3/uL) 0.02 Abs Immat Gran (auto) (0.00 - 0.03 x10 3/uL) 0. 01 Add Manual Diff NO Immature Gran % (0.0 - 2.0 %) 0.2 Nucleated RBC % (0 - 0 %) 0.0 Nucleated RBCs # (Man) (0.0 - 0.1 x10 3/uL) 0. 00 Radiology data: Recent Impressions: RADIOLOGY - XR FOOT 3 + V RT 04/25 1558 Report Impression - Status: SIGNED Entered: 04/26/2022 0558 IMPRESSION: No acute bony abnormalities. Impression By: [email or web address] - Nick Johnson M.D. [facility] - MRI LOW EXT W/O CON T RT 04/26 1148 Report Impression - Status: SIGNED Entered: 04/26/2022 1312 IMPRESSION: 1. Small soft tissue wound plantar aspect of the heel. Negative for abscess or osteomyelitis. 2. Chronic plantar fasciitis without tear. 3. Small tibiotalar joint effusion. Mild degener ative changes. 4. Atrophy of the musculature of the foot likely chronic denervation. Impression By: [email or web address] - Effie Lara Diagnosis, Assessment Plan Free Text DxA P Notes Free text DxA P notes: Fevers / influenza virus aVF malfunction Volume overload ESRD Right FOOT ulcer -Positive flu. Start Tamiflu?. Infectiou s disease consulted. As needed Tylenol -Dialysis catheter placed. Resume dialysis per n ephrology -Wound care per podiatry -replete elctrolytes -Blood sugars stable. SSI -Salt and fluid restriction. diurese if edema in creases. daily weights -prn zofran and antacids -allow diet -continue home BP meds. PRN hydralazine -prn stool softners -appreciate specialists help DC plan DVT prophylaxis with heparin/SCDs at 1513 Addendum 1: 04/26/22 1513 by Kristopher Stewart MD Patient had AV fistula placement before discharg e at 1513 RPT #:[id number] END OF REPORT 2022-04-26 08:01:00-00:00 [facility] Progress Note REPORT#:[id number] REPORT STATUS: Signed DATE:04/26/22 TIME: 800 PATIENT: PAOLA MISHRA UNIT #: [id number] ROOM/BED: [place] [address] : 57 AGE: 66 SEX: F ATTEND: Marcella Young MD ADM AUTHOR: Demetrius Barraza MD * ALL edits or amendments must be made on the el [employer]/computer document * Subjective Chief complaint: Clotted AVF HPI: Patient seen and evaluated, discussed with care team, 66-year-old female with history of end-stage renal d isease on chronic hemodialysis Tuesday and Tuesday, hypertension and diabetes mellit us who presented to the emergency room today with a clotted AV fistula. Last reported h emodialysis was on Tuesday. Patient also has right heel pain and wound for about 3 weeks. She denies fever, chills, nausea, vomiting or other complaints. He r laboratories showed sodium 129, potassium 6, CO2 24, BUN 81, creati nine 11, glucose 273, hemoglobin 11.4, platelet 221, blood count 5.5. Renal consult was requested for management of her end-stage renal disease/hemodialysis. Patient reports: Yes: complaints. Comments: Patient seen and evaluated, HPI no change from i nitial, feels okay. Review of Systems Constitutional: Reports: fatigue. Denies: chills, fever. Skin: Denies: abrasion, bruising. Allergy/Immun: Denies: hives, itching. Eyes: Denies: redness, discharge. ENT: Denies: ear drainage, ear ringing. Respiratory: Denies: hemoptysis, SOB. Cardiovascular: Denies: chest pain. Objective General VS/I O: Vital Signs: Date Time Temp Pulse Resp B/P B/P Pulse O2 O2 F low FiO2 Mean Ox Delivery Rate 04/26 0711 36.4 76 15 170/82 111.4 99 Room air 04/26 0437 72 16 163/73 102.8 96 Room air 04/25 2352 37.9 86 16 145/74 97.8 94 Room air 04/25 1945 37.8 87 16 161/74 103.0 94 Room air 04/25 1557 36.6 77 15 152/73 99.1 94 Room air 04/25 1307 38.2 04/25 1122 38.0 82 15 145/78 100.3 94 Room air PATIENT WEIGHT: Weight (lb): Weight (oz): Weight (kg): 54.545 Medications Active Meds + DC'd Last 24 Hrs Oseltamivir Phosphate (TAMIFLU) 30 MG MOWEFR PO Vancomycin HCl (VANCOMYCIN HCL) 1,250 MG ONCE ON E IV (DC) Sodium Chloride (SODIUM CHLORIDE 0.9%) 250 ML Cefepime HCl (MAXIPIME) 1 GM Q24H IV Sodium Chloride (SODIUM CHLORIDE) 10 ML Miscellaneous Information (VANCOMYCIN PHARMACY T O DOSE) 1 EACH ASDIR IV (CKD) Miscellaneous Information (VANCOMYCIN PHARMACY T O DOSE) 1 EACH ASDIR IV (DC) Silver Sulfadiazine (SILVADENE 1% 50 GM CREAM) 1 APPLIC AC BK TOPICAL Insulin Human Lispro (HUMALOG) 0 AC HS SUBQ Amlodipine Besylate (NORVASC) 10 MG DAILY PO Cholecalciferol (VITAMIN D) 2,000 INTL.UNITS CARMENZA LY PO (CKD) Gabapentin (NEURONTIN) 100 MG DAILY PO Pantoprazole (PROTONIX) 40 MG DAILY PO Atorvastatin Calcium (LIPITOR) 20 MG BEDTIME PO Tacrolimus (PROGRAF) 1 MG BID PO Albumin Human (ALBUMINAR-25%) 12.5 GM ASDIR PRN IV Heparin Sodium (Porcine) (HEPARIN SODIUM) 3,000 UNIT ASDIR PRN DIALYSIS Lidocaine HCl (LIDOCAINE HCL/PF) 0.5 ML ASDIR MO N I-DERMAL (CKD) Mannitol (MANNITOL 25% 12.5GM/50ML) 12.5 GM ASDI R PRN IV Sodium Chloride (SODIUM CHLORIDE 0.9%) 2,000 ML ASDIR PRN IV Sodium Chloride (SODIUM CHLORIDE) 5 ML ASDIR PRN IV Sodium Chloride (SODIUM CHLORIDE) 10 ML ASDIR MO N IV Sodium Chloride (SODIUM CHLORIDE 0.9%) 250 ML DIR PRN IV Acetaminophen (TYLENOL) 650 MG Q4H PRN PRN PO Acetaminophen/Codeine Phosphate (TYLENOL W CODEI NE NO.3) 1 TAB Q4H PRN PRN PO Clonidine HCl (CATAPRES) 0.1 MG TID PRN PO Docusate Sodium (COLACE) 100 MG BID PRN PRN PO Hydralazine HCl (APRESOLINE) 10 MG Q6H PRN PRN IV Hydrocodone Bitart/Acetaminophen (NORCO 5/325) 1 TAB Q6H PRN PRN PO Zolpidem Tartrate (AMBIEN) 5 MG BEDTIME PRN PRN PO Physical Exam General appearance: alert, no acute distress Head/eyes: atraumatic, normocephalic ENT: normal nose Neck: non-tender, supple/no meningismus Cardiovascular: normal heart sounds, no rub Respiratory: aerating well, symmetric expansion Abdomen: non-tender, soft Genitourinary: no flank pain Extremities: pitting edema, non-tender Musculoskeletal: no CVA tenderness, no tendernes s Neuro/VACATION GUIDE: alert, normal speech Skin: dry, intact Results Findings/Data: Laboratory Tests 04/26 04/26 04/25 04/25 04/25 0709 0530 1554 1325 1118 Chemistry Sodium (134 - 147 mEq/L) 139 Potassium (3.4 - 5.0 mEq/L) 4.2 Chloride (100 - 108 mEq/L) 101 Carbon Dioxide (21 - 33 mEq/l) 23 Anion Gap (0 - 20) 19 BUN (7 - 18 mg/dL) 32 H Creatinine (0.6 - 1.3 mg/dL) 8.8 H Glomerular Filtr Rate (80 - 90) 4.5 L Glucose (70 - 110 mg/dL) 104 POC Glucose (70 - 110 MG/DL) 119 H 121 H 172 H Lactic Acid (0.4 - 1.9 mmol/L) 1.1 Calcium (8.0 - 10.5 mg/dL) 8.3 Laboratory Tests 04/26 0530 Hematology WBC (4.5 - 11.0 x10 3/uL) 4.3 L RBC (3.54 - 5.02 x10 6/uL) 4.75 Hgb (11.0 - 15.0 g/dL) 12.0 Hct (33.0 - 45.0 %) 40.0 MCV (81.0 - 99.0 fL) 84.2 MCH (27.0 - 33.0 pg) 25.3 L MCHC (33.0 - 37.0 g/dL) 30.0 L RDW (11.5 - 14.5 %) 18.0 H Plt Count (150 - 400 x10 3/uL) 202 MPV (7.0 - 9.0 fL) 11.0 H Neut % (Auto) (56.0 - 77.0 %) 62.0 Lymph % (Auto) (14.0 - 32.0 %) 23.5 [place] % (Auto) (4.8 - 9.0 %) 13.1 H Eos % (Auto) (0.3 - 3.7 %) 0.7 Baso % (Auto) (0.0 - 2.0 %) 0.5 Neut # (Auto) (2.0 - 7.6 x10 3/uL) 2.66 Lymph # (Auto) (1.0 - 3.8 x10 3/uL) 1.01 [place] # (Auto) (0.1 - 0.8 x10 3/uL) 0.56 Eos # (Auto) (0.0 - 0.2 x10 3/uL) 0.03 Baso # (Auto) (0.0 - 0.2 x10 3/uL) 0.02 Abs Immat Gran (auto) (0.00 - 0.03 x10 3/uL) 0. 01 Add Manual Diff NO Immature Gran % (0.0 - 2.0 %) 0.2 Nucleated RBC % (0 - 0 %) 0.0 Nucleated RBCs # (Man) (0.0 - 0.1 x10 3/uL) 0.0 0 Laboratory Tests 04/25 1430 Serology SARS-CoV-2 Ag (Rapid) (Negative) Negative Microbiology Date/Time Procedure - Status Source Growth 04/25 1430 Influenza Virus Type B Antigen - COM P NASAL 04/25 1430 Influenza Virus Type A Antigen - COM P NASAL Diagnosis, Assessment Plan Free Text A P: Patient seen and evaluated, discussed with care team, images and laboratories reviewed. History of hypertension: Monitor blood p ressure closely and adjust medications as needed Diabetes mellitus: Insulin: Monitor bloo d sugar closely adjust insulin dose as needed. End-stage renal disease on chronic hemod ialysis, Tuesday, Tuesday and Tuesday, last reported hemodialysis was on Tuesday. Clotted AV fistula: Vascular surgery was consult ed. Hyperkalemia: Discussed with vascular surgery, w ill place temporary dialysis catheter, plan for hemodialy sis for 2 hours tonight followed by full session in the morning. 04/24/2022 status post acute dialysis catheter placement and dialysis for 2 hours last night, plan for dialysis today, 4 hours, 2K , ultrafiltration 2 to 3 L if tolerated. Hemoglobin this morning 11.7, platele t 226, blood count 3.5, seen during HD. 04/25/2022 laboratories this morning showed sodiu m 139, potassium 3.8, CO2 26, creatinine 6.4, hemoglobin 12.4, platelet 179, b lood count 4.4, last hemodialysis on Tuesday, next hemodialysis for Tuesday. 04/26/2022 laboratory this morning showed sodium 139, potassium 4.2, CO2 23, creatinine 8.8, hemoglobin 12, platelet 202, whi te blood count 4.3. Plan for hemodialysis today, 4 hours, 3K, ultrafiltration 2 to 3 L as tolerated. Electronically Signed by Demetrius Barraza MD on at 1055 RPT #:[id number] END OF REPORT 2022-04-25 17:08:00-00:00 [id number] [place] [address] PATIENT NAME: PAOLA MISHRA ADMIT DATE: ACCOUNT NO: [id number] [place] [facility] AGE: 66 REPORT TYPE: CONSULTATION REPORT SEX: F ADMITTING PHYSICIAN:Marcella Stewart MD ATTENDING PHYSICIAN:Marcella Stewart MD CONSULTATION DATE: 04/25/2022 INFECTIOUS DISEASE CONSULTATION REASON FOR CONSULTATION: Fev ers up to 100.4 degrees Fahrenheit since last night in a patient with end-stage renal diseas e on dialysis with clotted AV fistula, status post dialysis catheter placement, evaluat ion and treatment. HISTORY OF PRESENT ILLNESS: The patient is a 66- year-old female with past medical history significant for hypertensio n, diabetes, end-stage renal disease, on dialysis on Tuesday, Tuesday and , admitted to [facility] with a clotted AV fistula. The patient also had reported right heel wound with purulent drainage and complai nt of right heel pain. On admission to the hospital, nephrology was consulted and the p atient was started on vancomycin, and Infectious D isasaf is consulted for evaluation of fever. At the time of my consultation, the patient is lying in bed, reports fevers and chills for last 24 hours. The patie nt reports that she has taken Moderna COVID vaccine with booster. She is not sure as to whether she has taken flu shot. Does report chills and body aches. Reports ri ght heel severe foul smelling drainage and pain. PAST MEDICAL HISTORY: Significant for diabetes, hypertension, end-stage renal disease, on dialysis, and peripheral vascular di sease, right heel wound. PAST SURGICAL HISTORY: AV fistula creation and c urrently underwent a dialysis catheter placement. REVIEW OF SYSTEMS: Ten-point review of systems o btained except mentioned in HPI, rest of them are negative. MEDICATIONS: Antibiotics [place], the patient recei praveena a dose of vancomycin. PHYSICAL EXAMINATION: GENERAL: The patient is moderately built, very p leasant, middle-aged lady. VITAL SIGNS: T-max of 100.8, heart rate of 82, respirations 18, blood pressure 145/78. HEENT: Head atraumatic, normocephalic. Face is s ymmetrical. Conjunctivae are pale. Oropharynx is moist. NECK: Supple. Dialysis catheter in place. LUNGS: Crackles. HEART: Tachycardic. ABDOMEN: Good bowel sounds. PATIENT NAME: PAOLA MISHRA ACCOUNT #: [id number] EXTREMITIES: Right heel has full-thickness skin loss ulcer with foul smelling drainage covered with Betadi ne, and dorsalis pedis and posterior tibialis pulses are palpable. LABORATORY DATA: WBC 4.4, hemoglobin 12, hematoc rit 41, platelets 179. Blood cultures are pending, and on e of the wound cultures on the right heel is showing Staph epidermidis only. Arterial Doppler shows severe bilateral infrapopliteal peripheral vascular disease and x-ray of the ank le showing no acute abnormalities. ASSESSMENT AND PLAN: 1. A 66-year-old with end-stage renal disease, o n dialysis; diabetes, hypertension, admitted with a right heel infecte d diabetic foot ulcer and a clotted AV fistula, status p ost dialysis catheter placement, now has fevers for 24 hours. Concerns are influenza as well as COVI D. The patient had requested COVID test as well as influenza A and B nasal an tigens. Came back influenza A was positive. We will start the patient on Tamiflu 30 mg p.o. liquid form today and then after 48 hours afte r each dialysis for a total of 5 days only. Keep the patient on droplet isolation. 2. Diabetic foot ulcer, infected. We will recomm end to start vancomycin. Consult pharmacy for vancomycin dosing. We will give one dose now and after each dialysis and cefepime 1 gram IV q. 24 hours . Obtain MRI of the heel without contrast for evaluation of the osteomyel itis. Recommend podiatric surgery consultation for debridement. Thank you very much. We will follow. Dictated By: Mellissa Suarez MD Date Dictated: 04/25/2022 17:08:31 Date Transcribed: 04/25/2022 22:06:40 FILIBERTO/AYESHA Receipt ID: [id number] Authenticated by Mellissa Suarez MD On 022 11:25:54 AM at 1126 PATIENT NAME: PAOLA MISHRA ACCOUNT #: [id number] 2022-04-25 17:08:00-00:00 [facility] Internal Medicine Prog. Note REPORT#:[id number] REPORT STATUS: Signed DATE:04/25/22 TIME: 1707 PATIENT: PAOLA MISHRA UNIT #: [id number] ROOM/BED: [place] [address] : 57 AGE: 66 SEX: F ATTEND: Marcella Young MD ADM AUTHOR: Nishi Leavitt MD * ALL edits or amendments must be made on the el [employer]/computer document * Subjective Free Text Subj Notes Free Text Subj Notes: Running low-grade fevers. Denies chills, cough. Discussed with nursing staff. IJ inserted day before yesterday Review of Systems All systems rev neg: except as marked Objective General VS/I O: Vital Signs Date Temp Pulse Resp B/P B/P Mean Pulse Ox FiO2 04/24-04/25 36.6-38.2 74-84 15-16 132-157/73-84 94.7-105.9 93-97 Last Documented: Result Date Time Pulse Ox 94 04/25 1557 B/P 152/73 04/25 1557 B/P Mean 99.1 04/25 1557 O2 Delivery Room air 04/25 1557 Temp 36.6 04/25 1557 Pulse 77 04/25 1557 Resp 15 04/25 1557 24 hour I O ending at 0700: 04/25 0700 04/24 1900 Intake Total Output Total 3300 Balance -3300 Output, 3300 Hemodialysis PATIENT WEIGHT: Weight (lb): Weight (oz): Weight (kg): 54.545 Free Text Obj Notes Free Text Obj Notes: General appearance: alert, awake, oriented Head/Eyes: atraumatic, normocephalic, PERRLA ENT: normal dentition Neck: supple/no meningismus, no JVD Cardiovascular: normal heart sounds, regular rat e rhythm Respiratory: On room air. Clear to auscultation bilaterally Abdomen: non-tender, normal bowel sounds, soft Genitourinary: no bladder distention, no flank p ain Extremities: no clubbing, no cyanosis. aVF dress ed Musculoskeletal: no muscle spasm Neuro/VACATION GUIDE: alert, oriented X 3 Skin: Increased skin turgor, dry Psychiatry: normal affect, normal judgment/insig ht Diagnosis, Assessment Plan Free Text DxA P Notes Free text DxA P notes: Fevers / influenza virus aVF malfunction Volume overload ESRD Right ear ulcer -Positive flu. Start Tamiflu?. Infectiou s disease consulted. As needed Tylenol -Dialysis catheter placed. Resume dialysis per n ephrology -Wound care per podiatry -replete elctrolytes -Blood sugars stable. SSI -Salt and fluid restriction. diurese if edema in creases. daily weights -prn zofran and antacids -allow diet -continue home BP meds. PRN hydralazine -prn stool softners -appreciate specialists help DVT prophylaxis with heparin/SCDs Electronically Signed by Nishi Leavitt MD on at 1711 RPT #:[id number] END OF REPORT 2022-04-25 15:49:00-00:00 [facility] Prog.Note-Vancomycin REPORT#:[id number] REPORT STATUS: Signed DATE:04/25/22 TIME: 1548 PATIENT: PAOLA MISHRA UNIT #: [id number] ROOM/BED: [place] [address] : 57 AGE: 66 SEX: F ATTEND: Marcella Young MD ADM AUTHOR: Patric Salazar [facility] * ALL edits or amendments must be made on the [employer]/computer document * Vancomycin Vancomycin Medication Therapy Goal: trough 15-20 mcg/mL Indication for treatment: SSTI Current therapy: Medication(s) Ordered: Anti-Infective Agents Sig/Mane Start time Last Medication Dose Route Stop Time Status Admin Oseltamivir Phosphate 30 MG MOWEFR 04/25 1545 P NDr PO 05/03 1546 Vancomycin HCl 1,250 MG ONCE ONE 04/25 1535 AC Sodium Chloride 250 ML IV 04/25 1649 Cefepime HCl 1 GM Q24H 04/25 1400 AC 04/25 Sodium Chloride 10 ML IV 05/02 1359 1427 Miscellaneous 1 EACH ASDIR 04/25 1400 CKD Information IV 05/25 1359 Miscellaneous 1 EACH ASDIR 04/25 1400 DC Information IV 05/25 1359 Day of therapy: 1 Weight: Actual weight (kg): 54.5 VS and I/O: Vital Signs Date Temp Pulse Resp B/P B/P Mean Pulse Ox FiO 2 04/23-04/25 97.6-100.8 65-84 14-22 132-173/70-8 4 94.7-110 93-97 72 hours ending at 0704/25 19004/22 07 1900 Intake 120 Total Output 3300 2000 Total Balance -3300 -1880 Intake, 120 Oral Number 2 Bowel Movements Output, 3300 2000 Hemodialys is Patient 54.545 kg Weight Weight Stated/Rep orted Measuremen t Method 72 Hour I O Total 04/25 0704/24 0700 Intake Total 120 Output Total 3300 2000 Balance -3300 -1880 Labs: Laboratory Test : 04/25 0500 Chemistry BUN (7 - 18 mg/dL) 22 H Creatinine (0.6 - 1.3 mg/dL) 6.4 H Hematology WBC (4.5 - 11.0 x10 3/uL) 4.4 L Microbiology: 04/25 1430 NASAL: Influenza Virus Type B Antigen - COMP 04/25 1430 NASAL: Influenza Virus Type A Antigen - COMP 04/24 1414 FOOT: Wound Culture - RES 04/23 1240 BLOOD: Blood Culture - RES 04/23 1240 BLOOD: Blood Culture - RES Last dialysis session: Date: 04/24/22 Treatment plan: consult, initiation of therapy Regimen: This is a 66-year-old female with a history of e nd-stage renal disease, on hemodialysis Tuesday, ay and Tuesday; hypertension, diabetes, admitted from vascular surgeon, Dr. Francois's office, f or clotted AV fistula. The patient had hemodialysis on Tuesday, unable to get the dialys is on Tuesday because of thrombosed AV fistula. She denies any active com plaint. She has right heel pain with open wound for the past 3 weeks. She i s being followed up by assistant kitchen manager. Pharmacy consulted to manage vancomy nereyda. Consulting Provider: Erick Indication: SSTI Goal: Pre-HD 15-20 mcg/mL Concurrent Abx: Cefepime 1gm q24h, oseltamavir * 04/25 A/P: * Febrile Tmax 100.8, WBC 4.4, Lactic acid, CRP, ESR 14 (on 04/24) * Micro: 04/23 Bcx - NG48h, 04/24 wound cx - many CoNS, 04/25 Influenza type A - positive * Imagin/24 ankle XR - no osteomyelitis * Renal: ESRD on HD MWF, Last HD on 04/24 * Regimen: Initiate loading dose vanc 1250 mg IV x1 ( 22 mg/kg) and plan for maintenance regimen vanc 500 mg ( 9mg/kg) post-H D. * Plan/Monitoring: Plan to initiate loading dose and plan for pre-HD random vanc level prior to 3rd overall dose. * Pharmacy will continue to follow and monitor. Thank you Dr. Suarez for this consult. at 1157 at 0733 RPT #:[id number] END OF REPORT 2022-04-25 13:55:00-00:00 [facility] ([facility]) Clinical Note REPORT#:[id number] REPORT STATUS: Signed DATE:04/25/22 TIME: 1355 PATIENT: PAOLA MISHRA UNIT #: [id number] ROOM/BED: [place] [address] : 57 AGE: 66 SEX: F ATTEND: Marcella Young MD ADM AUTHOR: Mellissa Suarez MD * ALL edits or amendments must be made on the el [employer]/computer document * Clinical Note Note: pt seen examined and dictation to follow at 1355 RPT #:[id number] END OF REPORT 2022-04-25 12:42:00-00:00 [facility] ([facility]) Podiatry Progress Note REPORT#:[id number] REPORT STATUS: Signed DATE:04/25/22 TIME: 1242 PATIENT: PAOLA MISHRA UNIT #: [id number] ROOM/BED: [place] [address] : 57 AGE: 66 SEX: F ATTEND: Marcella Young MD ADM AUTHOR: Xavi Sloan DPM * ALL edits or amendments must be made on the el [employer]/computer document * Subjective Patient reports: no abdominal pain, no chest mitch n, no cough, no diarrhea, no nausea, pain Objective General VS: Last Documented: Result Date Time Pulse Ox 94 04/25 1122 B/P 145/78 04/25 1122 B/P Mean 100.3 04/25 1122 O2 Delivery Room air 04/25 112 Temp 100.4 04/25 1122 Pulse 82 04/25 1122 Resp 15 04/25 1122 PATIENT WEIGHT: Weight (lb): Weight (oz): Weight (kg): 54.545 Medications: Active Meds + DC'd Last 24 Hrs Silver Sulfadiazine (SILVADENE 1% 50 GM CREAM) 1 APPLIC AC BK TOPICAL Insulin Human Lispro (HUMALOG) 0 AC HS SUBQ (DC) Insulin Human Lispro (HUMALOG) 0 AC HS SUBQ Amlodipine Besylate (NORVASC) 10 MG DAILY PO Cholecalciferol (VITAMIN D) 2,000 INTL.UNITS CARMENZA LY PO (CKD) Gabapentin (NEURONTIN) 100 MG DAILY PO Pantoprazole (PROTONIX) 40 MG DAILY PO Atorvastatin Calcium (LIPITOR) 20 MG BEDTIME PO Tacrolimus (PROGRAF) 1 MG BID PO Albumin Human (ALBUMINAR-25%) 12.5 GM ASDIR PRN IV Heparin Sodium (Porcine) (HEPARIN SODIUM) 3,000 UNIT ASDIR PRN DIALYSIS Lidocaine HCl (LIDOCAINE HCL/PF) 0.5 ML ASDIR MO N I-DERMAL (CKD) Mannitol (MANNITOL 25% 12.5GM/50ML) 12.5 GM ASDI R PRN IV Sodium Chloride (SODIUM CHLORIDE 0.9%) 2,000 ML ASDIR PRN IV Sodium Chloride (SODIUM CHLORIDE) 5 ML ASDIR PRN IV Sodium Chloride (SODIUM CHLORIDE) 10 ML ASDIR MO N IV Sodium Chloride (SODIUM CHLORIDE 0.9%) 250 ML DIR PRN IV Acetaminophen (TYLENOL) 650 MG Q4H PRN PRN PO Acetaminophen/Codeine Phosphate (TYLENOL W CODEI NE NO.3) 1 TAB Q4H PRN PRN PO Clonidine HCl (CATAPRES) 0.1 MG TID PRN PO Docusate Sodium (COLACE) 100 MG BID PRN PRN PO Hydralazine HCl (APRESOLINE) 10 MG Q6H PRN PRN I V Hydrocodone Bitart/Acetaminophen (NORCO 5/325) 1 TAB Q6H PRN PRN PO Zolpidem Tartrate (AMBIEN) 5 MG BEDTIME PRN PRN PO I O: 24 hour I O ending at 0700: 04/25 0700 04/24 1900 Intake Total Output Total 3300 Balance -3300 Output, 3300 Hemodialysis Dietitian nutrition assessment The data set between the solid lines has been im ported from the dietitian's assessment. BMI Calculated: 22.7 Nutrition related diagnosis: Nutrition diagnosis details: Nutrition problem: Nutrition etiology: Nutrition signs and symptoms: Nutrition prescription: Dietitian name: Assessment completed: Physical Exam General appearance: alert, awake, oriented Wound/incision: Location: Posterior plantar lateral heel right foot Extremities: Left moves all, Left no cyanosis, Left abnormal capillary refill, Left cool, Left decreased range of motion, Right moves all, Right no cyanosis, Right abnormal capillary refill, Right cool, Right dec reased range of motion LE vascular pulse assess: Nonpalpable R posterior tibialis, Nonpalpable L posterior tibialis, 1+ R dorsalis pedis, 1+ L dorsalis pedis Reflex testing: Monofilament: DIM Toes, DIM Ball of foot, DIM Arch, DIM Heel Reflexes: Achilles: 2+ Babinski: 0 Musculoskeletal: Musculoskeletal: decreased ROM, pain on palpati on to ulcerative site right heel Neuro/VACATION GUIDE: alert, oriented X 3, sensory deficit Skin: cool, erythema Ulcer: Location: heel (right foot) Type: pressure Appearance: granulation tissue, slough Drainage: serosanguineous, mild Depth: muscle w/out necrosis Debo wound: cool, dry, erythema Stage (pressure): 4 Results Findings/Data: Laboratory Tests: 04/25 04/25 04/25 04/24 1118 0712 0500 2049 Chemistry Sodium (134 - 147 mEq/L) 139 Potassium (3.4 - 5.0 mEq/L) 3.8 Chloride (100 - 108 mEq/L) 101 Carbon Dioxide (21 - 33 mEq/l) 26 Anion Gap (0 - 20) 16 BUN (7 - 18 mg/dL) 22 H Creatinine (0.6 - 1.3 mg/dL) 6.4 H Glomerular Filtr Rate (80 - 90) 6.6 L Glucose (70 - 110 mg/dL) 158 H POC Glucose (70 - 110 MG/DL) 172 H 164 H 248 H Calcium (8.0 - 10.5 mg/dL) 8.1 Hematology WBC (4.5 - 11.0 x10 3/uL) 4.4 L RBC (3.54 - 5.02 x10 6/uL) 4.92 Hgb (11.0 - 15.0 g/dL) 12.4 Hct (33.0 - 45.0 %) 41.4 MCV (81.0 - 99.0 fL) 84.1 MCH (27.0 - 33.0 pg) 25.2 L MCHC (33.0 - 37.0 g/dL) 30.0 L RDW (11.5 - 14.5 %) 18.1 H Plt Count (150 - 400 x10 3/uL) 179 MPV (7.0 - 9.0 fL) 10.1 H Neut % (Auto) (56.0 - 77.0 %) 64.4 Lymph % (Auto) (14.0 - 32.0 %) 19.3 [place] % (Auto) (4.8 - 9.0 %) 14.2 H Eos % (Auto) (0.3 - 3.7 %) 1.4 Baso % (Auto) (0.0 - 2.0 %) 0.5 Neut # (Auto) (2.0 - 7.6 x10 3/uL) 2.81 Lymph # (Auto) (1.0 - 3.8 x10 3/uL) 0.84 L [place] # (Auto) (0.1 - 0.8 x10 3/uL) 0.62 Eos # (Auto) (0.0 - 0.2 x10 3/uL) 0.06 Baso # (Auto) (0.0 - 0.2 x10 3/uL) 0.02 Abs Immat Gran (auto) (0.00 - 0.03 x10 3/uL) 0. 01 Add Manual Diff NO Immature Gran % (0.0 - 2.0 %) 0.2 Nucleated RBC % (0 - 0 %) 0.0 Nucleated RBCs # (Man) (0.0 - 0.1 x10 3/uL) 0.0 0 04/24 04/24 1721 1549 Chemistry POC Glucose (70 - 110 MG/DL) 205 H Hematology ESR Westergren (0 - 20 mm/hr) 14 Recent Impressions: RADIOLOGY - XR ANKLE 3 + V RT 04/24 1619 Report Impression - Status: SIGNED Entered: 04/25/2022 0749 IMPRESSION: 1. No acute abnormality. 2. No radiographic evidence for osteomyelitis. Impression By: Natasha montero M.D. ULTRASOUND - DOP ART SGL LEVEL REGINE 04/25 1103 Report Impression - Status: SIGNED Entered: 04/25/2022 1130 IMPRESSION: Findings consistent with severe bilateral infrap opliteal peripheral vascular disease. Impression By: Natasha montero M.D. Wound culture right foot: Procedure Result Verified Site > WOUND CULTURE Preliminary 04/25/22-1208 ML MANY COAG NEGATIVE STAPH IF SENSITIVITY IS NEEDED, NOTIFY MICRO LAB WITHIN 48 HRS. 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 All questions answered to their understanding. Placed orders for baseline x-rays 3 views right foot--pending. Will coordinate care with Dr. Francois, to reevalu ate patient. Continue IV abx, final wound culture and sensiti vity to follow. Continue with wound care: Cleanse wound right he el with vashe followed by application of silvadene cream and DSD once te y. Continue with Prevalon boots. Will continue to follow. Electronically Signed by Xavi Sloan DPM on at 1246 RPT #:[id number] END OF REPORT 2022-04-25 08:53:00-00:00 [facility] Nephrology Progress Note REPORT#:[id number] REPORT STATUS: Signed DATE:04/25/22 TIME: 08 PATIENT: PAOLA MISHRA UNIT #: [id number] ROOM/BED: [place] [address] : 57 AGE: 66 SEX: F ATTEND: Marcella Young MD ADM AUTHOR: Demetrius Barraza MD * ALL edits or amendments must be made on the [employer]/computer document * Subjective Chief complaint: Clotted AVF HPI: Patient seen and evaluated, discussed with care team, 66-year-old female with history of end-stage renal d isease on chronic hemodialysis Tuesday and Tuesday, hypertension and diabetes [facility] who presented to the emergency room today with a clotted AV fistula. Last reported h emodialysis was on Tuesday. Patient also has right heel pain and wound for about 3 weeks. She denies fever, chills, nausea, vomiting or other complaints. He r laboratories showed sodium 129, potassium 6, CO2 24, BUN 81, creati nine 11, glucose 273, hemoglobin 11.4, platelet 221, blood count 5.5. Renal consult was requested for management of her end-stage renal disease/hemodialysis. Patient reports: Yes: complaints. Comments: Patient seen and evaluated, HPI no change from i nitial, feels okay. Review of Systems Constitutional: Reports: fatigue. Denies: chills, fever. Skin: Denies: abrasion, bruising. Allergy/Immun: Denies: hives, itching. Eyes: Denies: redness, discharge. ENT: Denies: ear drainage, ear ringing. Respiratory: Denies: hemoptysis, SOB. Cardiovascular: Denies: chest pain. Objective General VS/I O: Vital Signs: Date Time Temp Pulse Resp B/P B/P Pulse O2 O2 F low FiO2 Mean Ox Delivery Rate 04/25 0713 37.6 79 15 132/76 94.7 93 Room air 04/25 0327 37.5 74 16 156/80 105.6 95 Room air 04/24 2349 37.7 75 16 157/80 105.5 95 Room air 04/24 1919 37.5 84 16 149/84 105.9 97 Room air 04/24 1749 37.1 04/24 1650 37.7 04/24 1555 37.4 80 15 148/77 100.2 95 Room air 24 hour I O ending at 0700: 04/25 0700 04/24 1900 Intake Total Output Total 3300 Balance -3300 Output, 3300 Hemodialysis PATIENT WEIGHT: Weight (lb): Weight (oz): Weight (kg): 54.545 Medications Active Meds + DC'd Last 24 Hrs Silver Sulfadiazine (SILVADENE 1% 50 GM CREAM) 1 APPLIC AC BK TOPICAL Insulin Human Lispro (HUMALOG) 0 AC HS SUBQ (DC) Insulin Human Lispro (HUMALOG) 0 AC HS SUBQ Amlodipine Besylate (NORVASC) 10 MG DAILY PO Cholecalciferol (VITAMIN D) 2,000 INTL.UNITS CARMENZA LY PO (CKD) Gabapentin (NEURONTIN) 100 MG DAILY PO Pantoprazole (PROTONIX) 40 MG DAILY PO Atorvastatin Calcium (LIPITOR) 20 MG BEDTIME PO Tacrolimus (PROGRAF) 1 MG BID PO Albumin Human (ALBUMINAR-25%) 12.5 GM ASDIR PRN IV Heparin Sodium (Porcine) (HEPARIN SODIUM) 3,000 UNIT ASDIR PRN DIALYSIS Lidocaine HCl (LIDOCAINE HCL/PF) 0.5 ML ASDIR MO N I-DERMAL (CKD) Mannitol (MANNITOL 25% 12.5GM/50ML) 12.5 GM ASDI R PRN IV Sodium Chloride (SODIUM CHLORIDE 0.9%) 2,000 ML ASDIR PRN IV Sodium Chloride (SODIUM CHLORIDE) 5 ML ASDIR PRN IV Sodium Chloride (SODIUM CHLORIDE) 10 ML ASDIR MO N IV Sodium Chloride (SODIUM CHLORIDE 0.9%) 250 ML DIR PRN IV Acetaminophen (TYLENOL) 650 MG Q4H PRN PRN PO Acetaminophen/Codeine Phosphate (TYLENOL W CODEI NE NO.3) 1 TAB Q4H PRN PRN PO Clonidine HCl (CATAPRES) 0.1 MG TID PRN PO Docusate Sodium (COLACE) 100 MG BID PRN PRN PO Hydralazine HCl (APRESOLINE) 10 MG Q6H PRN PRN I V Hydrocodone Bitart/Acetaminophen (NORCO 5/325) 1 TAB Q6H PRN PRN PO Zolpidem Tartrate (AMBIEN) 5 MG BEDTIME PRN PRN PO Physical Exam General appearance: alert, no acute distress Head/eyes: atraumatic, normocephalic ENT: normal nose Neck: non-tender, supple/no meningismus Cardiovascular: normal heart sounds, no rub Respiratory: aerating well, symmetric expansion Abdomen: non-tender, soft Genitourinary: no flank pain Extremities: pitting edema, non-tender Musculoskeletal: no CVA tenderness, no tendernes s Neuro/VACATION GUIDE: alert, normal speech Skin: dry, intact Results Findings/Data: Laboratory Tests 04/25 04/25 04/24 04/24 04/24 0712 0500 2049 1549 1142 Chemistry Sodium (134 - 147 mEq/L) 139 Potassium (3.4 - 5.0 mEq/L) 3.8 Chloride (100 - 108 mEq/L) 101 Carbon Dioxide (21 - 33 mEq/l) 26 Anion Gap (0 - 20) 16 BUN (7 - 18 mg/dL) 22 H Creatinine (0.6 - 1.3 mg/dL) 6.4 H Glomerular Filtr Rate (80 - 90) 6.6 L Glucose (70 - 110 mg/dL) 158 H POC Glucose (70 - 110 MG/DL) 164 H 248 H 205 H 172 H Calcium (8.0 - 10.5 mg/dL) 8.1 Laboratory Tests 04/25 04/24 0500 1721 Hematology WBC (4.5 - 11.0 x10 3/uL) 4.4 L RBC (3.54 - 5.02 x10 6/uL) 4.92 Hgb (11.0 - 15.0 g/dL) 12.4 Hct (33.0 - 45.0 %) 41.4 MCV (81.0 - 99.0 fL) 84.1 MCH (27.0 - 33.0 pg) 25.2 L MCHC (33.0 - 37.0 g/dL) 30.0 L RDW (11.5 - 14.5 %) 18.1 H Plt Count (150 - 400 x10 3/uL) 179 MPV (7.0 - 9.0 fL) 10.1 H Neut % (Auto) (56.0 - 77.0 %) 64.4 Lymph % (Auto) (14.0 - 32.0 %) 19.3 [place] % (Auto) (4.8 - 9.0 %) 14.2 H Eos % (Auto) (0.3 - 3.7 %) 1.4 Baso % (Auto) (0.0 - 2.0 %) 0.5 Neut # (Auto) (2.0 - 7.6 x10 3/uL) 2.81 Lymph # (Auto) (1.0 - 3.8 x10 3/uL) 0.84 L [place] # (Auto) (0.1 - 0.8 x10 3/uL) 0.62 Eos # (Auto) (0.0 - 0.2 x10 3/uL) 0.06 Baso # (Auto) (0.0 - 0.2 x10 3/uL) 0.02 Abs Immat Gran (auto) (0.00 - 0.03 x10 3/uL) 0. 01 Add Manual Diff NO Immature Gran % (0.0 - 2.0 %) 0.2 Nucleated RBC % (0 - 0 %) 0.0 Nucleated RBCs # (Man) (0.0 - 0.1 x10 3/uL) 0. 00 ESR Westergren (0 - 20 mm/hr) 14 Diagnosis, Assessment Plan Free Text A P: Patient seen and evaluated, discussed with care team, images and laboratories reviewed. History of hypertension: Monitor blood p ressure closely and adjust medications as needed Diabetes mellitus: Insulin: Monitor bloo d sugar closely adjust insulin dose as needed. End-stage renal disease on chronic hemod ialysis, Tuesday, Tuesday and Tuesday, last reported hemodialysis was on Tuesday. Clotted AV fistula: Vascular surgery was consult ed. Hyperkalemia: Discussed with vascular surgery, w ill place temporary dialysis catheter, plan for hemodialy sis for 2 hours tonight followed by full session in the morning. 04/24/2022 status post acute dialysis catheter placement and dialysis for 2 hours last night, plan for dialysis today, 4 hours, 2K , ultrafiltration 2 to 3 L if tolerated. Hemoglobin this morning 11.7, platele t 226, blood count 3.5, seen during HD. 04/25/2022 laboratories this morning showed sodiu m 139, potassium 3.8, CO2 26, creatinine 6.4, hemoglobin 12.4, platelet 179, b lood count 4.4, last hemodialysis on Tuesday, next hemodialysis for Tuesday. Electronically Signed by Demetrius Barraza MD on at 1454 RPT #:[id number] END OF REPORT 2022-04-24 18:42:00-00:00 [facility] REPORT#:[id number] REPORT STATUS: Signed DATE:04/24/22 TIME: 1841 PATIENT: PAOLA MISHRA UNIT #: [id number] ROOM/BED: [place] [address] : 57 AGE: 66 SEX: F ATTEND: Marcella Young MD ADM AUTHOR: Nishi Leavitt MD * ALL edits or amendments must be made on the el [employer]/computer document * Subjective Free Text Subj Notes Free Text Subj Notes: Resting in bed with her daughter at bedside. Had dialysis via port catheter placed last night. No new issues Review of Systems All systems rev neg: except as marked Objective Free Text Obj Notes Free Text Obj Notes: General appearance: alert, awake, oriented Head/Eyes: atraumatic, normocephalic, PERRLA ENT: normal dentition Neck: supple/no meningismus, no JVD Cardiovascular: normal heart sounds, regular rat e rhythm Respiratory: On room air. Clear to auscultation bilaterally Abdomen: non-tender, normal bowel sounds, soft Genitourinary: no bladder distention, no flank p ain Extremities: no clubbing, no cyanosis. AVF Musculoskeletal: no muscle spasm Neuro/VACATION GUIDE: alert, oriented X 3 Skin: dry. Right heel ulcer dressed Psychiatry: normal affect, normal judgment/insig ht Diagnosis, Assessment Plan Free Text DxA P Notes Free text DxA P notes: aVF malfunction Volume overload ESRD Right ear ulcer -Dialysis catheter placed. Resume dialysis per n ephrology -Wound care per podiatry -replete elctrolytes -Blood sugars stable. SSI -Salt and fluid restriction. diurese if edema in creases. daily weights -prn zofran and antacids -allow diet -continue home BP meds. PRN hydralazine -prn stool softners -appreciate specialists help DVT prophylaxis with heparin/SCDs Electronically Signed by Nishi Leavitt MD on at 1846 RPT #:[id number] END OF REPORT 2022-04-24 12:53:00-00:00 [facility] Progress Note REPORT#:[id number] REPORT STATUS: Signed DATE:04/24/22 TIME: 1253 PATIENT: PAOLA MISHRA UNIT #: [id number] ROOM/BED: [place] [address] : 57 AGE: 66 SEX: F ATTEND: Marcella Young MD ADM AUTHOR: Xavi Sloan DPM * ALL edits or amendments must be made on the [employer]/computer document * Subjective Patient reports: no abdominal pain, no chest mitch n, no diarrhea, no fever, no nausea, pain, Patient irish speaking Objective General VS: Last Documented: Result Date Time Pulse Ox 95 04/24 700 B/P 158/75 04/24 700 B/P Mean 103.0 04/24 07 O2 Delivery Room air 04/24 700 Temp 97.9 04/24 700 Pulse 65 04/24 07 Resp 15 04/24 700 PATIENT WEIGHT: Weight (lb): Weight (oz): Weight (kg): 54.545 Medications: Active Meds + DC'd Last 24 Hrs Amlodipine Besylate (NORVASC) 10 MG DAILY PO Cholecalciferol (VITAMIN D) 2,000 INTL.UNITS CARMENZA LY PO (CKD) Gabapentin (NEURONTIN) 100 MG DAILY PO Pantoprazole (PROTONIX) 40 MG DAILY PO Atorvastatin Calcium (LIPITOR) 20 MG BEDTIME PO Tacrolimus (PROGRAF) 1 MG BID PO Albumin Human (ALBUMINAR-25%) 12.5 GM ASDIR PRN IV Heparin Sodium (Porcine) (HEPARIN SODIUM) 3,000 UNIT ASDIR PRN DIALYSIS Lidocaine HCl (LIDOCAINE HCL/PF) 0.5 ML ASDIR MO N I-DERMAL (CKD) Mannitol (MANNITOL 25% 12.5GM/50ML) 12.5 GM ASDI R PRN IV Sodium Chloride (SODIUM CHLORIDE 0.9%) 2,000 ML ASDIR PRN IV Sodium Chloride (SODIUM CHLORIDE) 5 ML ASDIR PRN IV Sodium Chloride (SODIUM CHLORIDE) 10 ML ASDIR MO N IV Sodium Chloride (SODIUM CHLORIDE 0.9%) 250 ML DIR PRN IV Acetaminophen (TYLENOL) 650 MG Q4H PRN PRN PO Acetaminophen/Codeine Phosphate (TYLENOL W CODEI NE NO.3) 1 TAB Q4H PRN PRN PO Clonidine HCl (CATAPRES) 0.1 MG TID PRN PO Docusate Sodium (COLACE) 100 MG BID PRN PRN PO Hydralazine HCl (APRESOLINE) 10 MG Q6H PRN PRN IV Hydrocodone Bitart/Acetaminophen (NORCO 5/325) 1 TAB Q6H PRN PRN PO Zolpidem Tartrate (AMBIEN) 5 MG BEDTIME PRN PRN PO Lactulose (LACTULOSE) 60 GM X1ED STA PO (DC) Sodium Polystyrene Sulfonate (KAYEXELATE) 30 GM X1ED STA PO (DC) I O: 24 hour I O ending at 0700: 04/24 0700 04/23 1900 Intake Total 120 Output Total 1999 Balance -1880 Intake, Oral 120 Number 2 Bowel Movements Output, 1999 Hemodialysis Patient 54.545 kg Weight Weight Stated/Reported Measurement Method Dietitian nutrition assessment The data set between the solid lines has been im ported from the dietitian's assessment. BMI Calculated: 22.7 Nutrition related diagnosis: Nutrition diagnosis details: Nutrition problem: Nutrition etiology: Nutrition signs and symptoms: Nutrition prescription: Dietitian name: Assessment completed: Physical Exam General appearance: alert, awake, oriented Wound/incision: Location: Posterior plantar lateral heel right foot Extremities: Left moves all, Left no cyanosis, Left abnormal capillary refill, Left cool, Left decreased range of motion, Right moves all, Right no cyanosis, Right abnormal capillary refill, Right cool, Right dec reased range of motion LE vascular pulse assess: Nonpalpable R posterior tibialis, Nonpalpable L posterior tibialis, 1+ R dorsalis pedis, 1+ L dorsalis pedis Reflex testing: Monofilament: DIM Toes, DIM Ball of foot, DIM Arch, DIM Heel Reflexes: Achilles: 2+ Babinski: 0 Musculoskeletal: Musculoskeletal: decreased ROM, pain on palpati on to ulcerative site right heel Neuro/VACATION GUIDE: alert, oriented X 3, sensory deficit Skin: cool, erythema Ulcer: Location: heel (right foot) Type: pressure Appearance: granulation tissue, slough Drainage: serosanguineous, mild Depth: muscle w/out necrosis Debo wound: cool, dry, erythema Stage (pressure): 4 Results Findings/Data: Laboratory Tests: 04/24 04/24 04/24 04/24 1142 0658 0500 0335 Chemistry Sodium (134 - 147 mEq/L) 135 Potassium (3.4 - 5.0 mEq/L) 4.4 Chloride (100 - 108 mEq/L) 98 L Carbon Dioxide (21 - 33 mEq/l) 27 Anion Gap (0 - 20) 14 BUN (7 - 18 mg/dL) 48 H Creatinine (0.6 - 1.3 mg/dL) 8.3 H Glomerular Filtr Rate (80 - 90) 4.9 L Glucose (70 - 110 mg/dL) 176 H POC Glucose (70 - 110 MG/DL) 172 H 168 H 199 H Calcium (8.0 - 10.5 mg/dL) 8.0 Hematology WBC (4.5 - 11.0 x10 3/uL) 3.5 L RBC (3.54 - 5.02 x10 6/uL) 4.64 Hgb (11.0 - 15.0 g/dL) 11.7 Hct (33.0 - 45.0 %) 38.3 MCV (81.0 - 99.0 fL) 82.5 MCH (27.0 - 33.0 pg) 25.2 L MCHC (33.0 - 37.0 g/dL) 30.5 L RDW (11.5 - 14.5 %) 17.9 H Plt Count (150 - 400 x10 3/uL) 226 MPV (7.0 - 9.0 fL) 10.2 H Neut % (Auto) (56.0 - 77.0 %) 66.1 Lymph % (Auto) (14.0 - 32.0 %) 17.0 [place] % (Auto) (4.8 - 9.0 %) 12.7 H Eos % (Auto) (0.3 - 3.7 %) 3.1 Baso % (Auto) (0.0 - 2.0 %) 0.8 Neut # (Auto) (2.0 - 7.6 x10 3/uL) 2.33 Lymph # (Auto) (1.0 - 3.8 x10 3/uL) 0.60 L [place] # (Auto) (0.1 - 0.8 x10 3/uL) 0.45 Eos # (Auto) (0.0 - 0.2 x10 3/uL) 0.11 Baso # (Auto) (0.0 - 0.2 x10 3/uL) 0.03 Abs Immat Gran (auto) (0.00 - 0.03 x10 3/uL) 0. 01 Add Manual Diff NO Immature Gran % (0.0 - 2.0 %) 0.3 Nucleated RBC % (0 - 0 %) 0.0 Nucleated RBCs # (Man) (0.0 - 0.1 x10 3/uL) 0.0 0 04/23 2135 Serology Hepatitis A IgM Ab (NON REACT. INDEX) NON REACT ARTURO Hep Bs Antigen (NonReactive INDEX) NON REACTIVE Hep B Core IgM Ab (NON REACT. INDEX) NON REACTI VE Hepatitis C Antibody (NON REACT. INDEX) NON CONY CTIVE Recent Impressions: RADIOLOGY - XR CHEST 1 V 04/23 2128 Report Impression - Status: SIGNED Entered: 04/23/20222152 IMPRESSION: 1. Interval placement of a right IJ venous linda ter, tip at the atrial caval junction. 2. Low lung volumes with vascular crowding and b ilateral lower lobe atelectasis. Impression By: [email or web address] Iram Leavitt M.D. 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 All questions answere d to their understanding. Placed orders for baseline x-rays 3 views right foot. Placed orders for arterial doppler US b/ l LE as based on clinical exam there's evidence of vascular deficit in feet. Placed orders for wound cultures right heel. Placed orders for wound care: Cleanse wound righ t heel with vashe followed by application of silvadene cream and DSD once te y. Continue with Prevalon boots. Will continue to follow. Electronically Signed by Xavi Sloan DPM on at 2040 RPT #:[id number] END OF REPORT 2022-04-24 07:46:00-00:00 [facility] Progress Note REPORT#:[id number] REPORT STATUS: Signed DATE:04/24/22 TIME: 0746 PATIENT: PAOLA MISHRA UNIT #: [id number] ROOM/BED: [facility] : 57 AGE: 66 SEX: F ATTEND: Marcella Young MD ADM AUTHOR: Demetrius Barraza MD * ALL edits or amendments must be made on the [employer]/computer document * Subjective Chief complaint: Clotted AVF HPI: Patient seen and evaluated, discussed with care team, 66-year-old female with history of end-stage renal d isease on chronic hemodialysis Tuesday and Tuesday, hypertension and diabetes mellit who presented to the emergency room today with a clotted AV fistula. Last reported h emodialysis was on Tuesday. Patient also has right heel pain and wound for about 3 weeks. She denies fever, chills, nausea, vomiting or other complaints. He r laboratories showed sodium 129, potassium 6, CO2 24, BUN 81, creati nine 11, glucose 273, hemoglobin 11.4, platelet 221, blood count 5.5. Renal consult was requested for management of her end-stage renal disease/hemodialysis. Patient reports: Yes: complaints. Comments: Patient seen and evaluated, HPI change from init ial, feels okay. Review of Systems Constitutional: Reports: fatigue. Denies: chills, fever. Skin: Denies: abrasion, bruising. Allergy/Immun: Denies: hives, itching. Eyes: Denies: redness, discharge. ENT: Denies: ear drainage, ear ringing. Respiratory: Denies: hemoptysis, SOB. Cardiovascular: Denies: chest pain. Objective General VS/I O: Vital Signs: Date Time Temp Pulse Resp B/P B/P Pulse O2 O2 F low FiO2 Mean Ox Delivery Rate 04/24 0700 36.6 65 15 158/75 103.0 95 Room air 04/24 0333 37.0 68 14 163/80 107.6 94 Room air 04/24 0034 36.6 73 18 162/76 04/23 2100 36.8 77 22 153/81 04/23 1959 36.8 76 14 167/70 102.4 94 Room air 04/23 1549 65 18 151/72 98 96 Room air 04/23 1405 36.4 65 17 173/79 110 96 Room air 04/23 1118 68 18 152/78 102 95 Room air 24 hour I O ending at 0700: 04/24 0700 04/23 1900 Intake Total 120 Output Total 1999 Balance -1880 Intake, Oral 120 Number 2 Bowel Movements Output, 1999 Hemodialysis Patient 54.545 kg Weight Weight Stated/Reported Measurement Method PATIENT WEIGHT: Weight (lb): Weight (oz): Weight (kg): 54.545 Medications Active Meds + DC'd Last 24 Hrs Amlodipine Besylate (NORVASC) 10 MG DAILY PO Cholecalciferol (VITAMIN D) 2,000 INTL.UNITS CARMENZA LY PO (CKD) Gabapentin (NEURONTIN) 100 MG DAILY PO Pantoprazole (PROTONIX) 40 MG DAILY PO Atorvastatin Calcium (LIPITOR) 20 MG BEDTIME PO Tacrolimus (PROGRAF) 1 MG BID PO Albumin Human (ALBUMINAR-25%) 12.5 GM ASDIR PRN IV Heparin Sodium (Porcine) (HEPARIN SODIUM) 3,000 UNIT ASDIR PRN DIALYSIS Lidocaine HCl (LIDOCAINE HCL/PF) 0.5 ML ASDIR MO N I-DERMAL (CKD) Mannitol (MANNITOL 25% 12.5GM/50ML) 12.5 GM ASDI R PRN IV Sodium Chloride (SODIUM CHLORIDE 0.9%) 2,000 ML ASDIR PRN IV Sodium Chloride (SODIUM CHLORIDE) 5 ML ASDIR PRN IV Sodium Chloride (SODIUM CHLORIDE) 10 ML ASDIR MO N IV Sodium Chloride (SODIUM CHLORIDE 0.9%) 250 ML DIR PRN IV Acetaminophen (TYLENOL) 650 MG Q4H PRN PRN PO Acetaminophen/Codeine Phosphate (TYLENOL W CODEI NE NO.3) 1 TAB Q4H PRN PRN PO Clonidine HCl (CATAPRES) 0.1 MG TID PRN PO Docusate Sodium (COLACE) 100 MG BID PRN PRN PO Hydralazine HCl (APRESOLINE) 10 MG Q6H PRN PRN I V Hydrocodone Bitart/Acetaminophen (NORCO 5/325) 1 TAB Q6H PRN PRN PO Zolpidem Tartrate (AMBIEN) 5 MG BEDTIME PRN PRN PO Lactulose (LACTULOSE) 60 GM X1ED STA PO (DC) Sodium Polystyrene Sulfonate (KAYEXELATE) 30 GM X1ED STA PO (DC) Physical Exam General appearance: alert, no acute distress Head/eyes: atraumatic, normocephalic ENT: normal nose Neck: non-tender, supple/no meningismus Cardiovascular: normal heart sounds, no rub Respiratory: aerating well, symmetric expansion Abdomen: non-tender, soft Genitourinary: no flank pain Extremities: pitting edema, non-tender Musculoskeletal: no CVA tenderness, no tendernes s Neuro/VACATION GUIDE: alert, normal speech Skin: dry, intact Results Findings/Data: Laboratory Tests 04/24 04/24 04/23 04/23 0658 0335 1240 1240 Chemistry Sodium (134 - 147 mEq/L) 129 L Potassium (3.4 - 5.0 mEq/L) 6.0 *H Chloride (100 - 108 mEq/L) 95 L Carbon Dioxide (21 - 33 mEq/l) 24 Anion Gap (0 - 20) 16 BUN (7 - 18 mg/dL) 81 H Creatinine (0.6 - 1.3 mg/dL) 11.0 H Glomerular Filtr Rate (80 - 90) 3.5 L Glucose (70 - 110 mg/dL) 273 H POC Glucose (70 - 110 MG/DL) 168 H 199 H Lactic Acid (0.4 - 1.9 mmol/L) 0.9 Calcium (8.0 - 10.5 mg/dL) 8.0 Total Bilirubin (0.0 - 1.0 mg/dL) < 0.20 Direct Bilirubin (0.0 - 0.30 MG/DL) < 0.10 Indirect Bilirubin (MG/DL) 0.10 AST (15 - 37 IUnit/L) 17 ALT (30 - 65 IUnit/L) < 7 L Total Alk Phosphatase (20 - 125 IUnit/L) 85 Total Protein (6.4 - 8.2 g/dL) 7.7 Albumin (3.4 - 5.0 g/dL) 3.70 Laboratory Tests 04/24 04/23 0500 1240 Hematology WBC (4.5 - 11.0 x10 3/uL) 3.5 L 5.5 RBC (3.54 - 5.02 x10 6/uL) 4.64 4.48 Hgb (11.0 - 15.0 g/dL) 11.7 11.4 Hct (33.0 - 45.0 %) 38.3 37.6 MCV (81.0 - 99.0 fL) 82.5 83.9 MCH (27.0 - 33.0 pg) 25.2 L 25.4 L MCHC (33.0 - 37.0 g/dL) 30.5 L 30.3 L RDW (11.5 - 14.5 %) 17.9 H 18.2 H Plt Count (150 - 400 x10 3/uL) 226 221 MPV (7.0 - 9.0 fL) 10.2 H 10.4 H Neut % (Auto) (56.0 - 77.0 %) 66.1 68.7 Lymph % (Auto) (14.0 - 32.0 %) 17.0 17.6 [place] % (Auto) (4.8 - 9.0 %) 12.7 H 9.9 H Eos % (Auto) (0.3 - 3.7 %) 3.1 2.9 Baso % (Auto) (0.0 - 2.0 %) 0.8 0.5 Neut # (Auto) (2.0 - 7.6 x10 3/uL) 2.33 3.76 Lymph # (Auto) (1.0 - 3.8 x10 3/uL) 0.60 L 0.96 L [place] # (Auto) (0.1 - 0.8 x10 3/uL) 0.45 0.54 Eos # (Auto) (0.0 - 0.2 x10 3/uL) 0.11 0.16 Baso # (Auto) (0.0 - 0.2 x10 3/uL) 0.03 0.03 Abs Immat Gran (auto) (0.00 - 0.03 x10 3/uL) 0. 01 0.02 Add Manual Diff NO NO Immature Gran % (0.0 - 2.0 %) 0.3 0.4 Nucleated RBC % (0 - 0 %) 0.0 0.0 Nucleated RBCs # (Man) (0.0 - 0.1 x10 3/uL) 0.0 0 0.00 Laboratory Tests 04/23 2135 Serology Hepatitis A IgM Ab (NON REACT. INDEX) NON REACT ARTURO Hep Bs Antigen (NonReactive INDEX) NON REACTIVE Hep B Core IgM Ab (NON REACT. INDEX) NON REACTI VE Hepatitis C Antibody (NON REACT. INDEX) NON CONY CTIVE Diagnosis, Assessment Plan Free Text A P: Patient seen and evaluated, discussed with care team, images and laboratories reviewed. History of hypertension: Monitor blood p ressure closely and adjust medications as needed Diabetes mellitus: Insulin: Monitor bloo d sugar closely adjust insulin dose as needed. End-stage renal disease on chronic hemod ialysis, Tuesday, Tuesday and Tuesday, last reported hemodialysis was on Tuesday. Clotted AV fistula: Vascular surgery was consult ed. Hyperkalemia: Discussed with vascular surgery, w ill place temporary dialysis catheter, plan for hemodialy sis for 2 hours tonight followed by full session in the morning. 04/24/2022 status post acute dialysis catheter placement and dialysis for 2 hours last night, plan for dialysis today, 4 hours, 2K , ultrafiltration 2 to 3 L if tolerated. Hemoglobin this morning 11.7, platele t 226, blood count 3.5, seen during HD. Electronically Signed by Demetrius Barraza MD on at 1245 RPT #:[id number] END OF REPORT 2022-04-23 21:17:00-00:00 [facility] ([facility]) Brief Op Note REPORT#:[id number] REPORT STATUS: Signed DATE:04/23/22 TIME: 2116 PATIENT: PAOLA MISHRA UNIT #: [id number] ROOM/BED: [place] [address] : 57 AGE: 66 SEX: F ATTEND: Marcella Young MD ADM AUTHOR: Az Francois MD * ALL edits or amendments must be made on the el [employer]/computer document * Op/Inv Proc Note - Brief ORM Surgeries: Surgery Date and Time: 04/26/2022 1330 Proposed Primary Procedure: PERCUTANEOUS THROMB ECTOMY LEFT AV Pre-procedure diagnosis: Hyperkalemia Thrombosed left arm arteriovenous fistula Post-procedure diagnosis: same as pre procedure dx Procedures performed: Bedside placement of right internal jugular non- tunneled central line [id number] Primary Surgeon: Dr. Az Francois Overhead Crane Operator(s): none Anesthesia: local anesthesia Findings: Percutaneous ultrasound guided access right inte rnal jugular vein with microcatheter system. Occluded internal jugular vein at clavicle crossed with wire and micrupuncture and wire advanced and liborio otomy dilated and 15 cm trialysis catheter placed with good flush and wi thdrawal and sewn into place. Patient tolerated well. Complications: none Estimated blood loss in ml's: none Specimens removed/altered: none at 4182 RPT #:[id number] END OF REPORT 2022-04-23 18:22:00-00:00 [id number] [place] [address] PATIENT NAME: PAOLA MISHRA ADMIT DATE: ACCOUNT NO: [id number] ROOM NO: [id number] AGE: 66 REPORT TYPE: HISTORY AND PHYSICAL SEX: F ADMITTING PHYSICIAN:Marcella Stewart MD ATTENDING PHYSICIAN:Marcella Stewart MD ADMISSION DATE: 04/23/2022 14:11:00 CHIEF COMPLAINT: Nonfunctioning dialysis access, missed hemodialysis. HISTORY OF PRESENT ILLNESS: This is a 66-year-ol d female with a history of end-stage renal disease, on hemodialysis Tuesday, Tuesday and Tuesday; hypertension, diabetes, admi tted from vascular surgeon, Dr. Francois's office, for clotted AV fistula. The patient had hemodialysis on Tuesday, unable to get the dialysis on Tuesday because of thrombosed AV f istula. She denies any active complaint. She has right heel pain with open wou nd for the past 3 weeks. She is being followed up by assistant kitchen manager. The patient denies any fever, cough, or sputum. Denies any chest pain, palpitation, or shortness of breath. Denies any abdominal pain, nausea, vomiting, or extremity edema. Evaluated in the e mergency room. The patient's potassium was 6 and sodium was 129. She received Kayexalate and lactulose. Planning on temporary dialysis access and hemodi alysis today. PAST MEDICAL HISTORY: End-stage renal disease, h ypertension, diabetes. PAST SURGICAL HISTORY: AV fistula, foot surgery. HOME MEDICATIONS: Reviewed. ALLERGIES: NO KNOWN ALLERGIES. SOCIAL HISTORY: No smoking, alcohol or illicit d rug use. FAMILY HISTORY: Not relevant to current illness. REVIEW OF SYSTEMS: A 14-point comprehens arturo system review was done, apart from symptoms mentioned in the history of present ill ness, otherwise negative. PHYSICAL EXAMINATION: VITAL SIGNS: Temperature 97.6, pulse 65, blood p ressure 151/72. GENERAL: A middle-aged female, in no acute distr ess, afebrile. HEENT: Pupils reactive. NECK: Supple. CARDIOVASCULAR: S1, S2 regular. CHEST: Bilaterally good air entry. ABDOMEN: Soft, nontender. EXTREMITIES: No edema. Right toe ulcer. PATIENT NAME: PAOLA MISHRA ACCOUNT #: [id number] DIAGNOSTIC DATA: Chest x-ray, pulmonary vascular congestion. LABORATORY DATA: WBC 5.5, hemoglobin 11. 4, hematocrit 37.6, platelets 221,000. Lactic acid 0.9, sodium 129, potassium 6.0, chloride 95, BUN 81, creatinine 11. ASSESSMENT AND PLAN: 1. Hyperkalemia due to missed hemodialysis. The patient received Kayexalate and lactulose, planning on hemodialysis. We will follow the potassium level. 2. Chronic right foot wound. Podiatry is consult ed. We will wait for evaluation. No sign of infection, no need for an tibiotic for now. 3. End-stage renal disease. Continue hemodialysi s. 4. Clotted AV fistula. Planning on thrombectomy by Vascular Surgery. 5. Diabetes mellitus. We will continue Lantus an d Humalog. DVT and GI prophylaxis. Dictated By: Marcella Stewart MD Date Dictated: 04/23/2022 18:22:23 Date Transcribed: 04/23/2022 19:56:10 /[facility] Receipt ID: [id number] Authenticated by Marcella Stewart MD On 04/27/2022 10:43:44 PM at 1043 PATIENT NAME: PAOLA MISHRA ACCOUNT #: [id number] 2022-04-23 17:38:00-00:00 [facility] Consult Note REPORT#:[id number] REPORT STATUS: Signed DATE:04/23/22 TIME: 8 PATIENT: PAOLA MISHRA UNIT #: [id number] ROOM/BED: [place] [address] : 57 AGE: 66 SEX: F ATTEND: Marcella Young MD ADM AUTHOR: Delma Saucedo DPM * ALL edits or amendments must be made on the el [employer]/computer document * History of Present Illness HPI: 66 yo irish speaking female known to effie pina from prior encoiunter has a diabetic foot ulcer for months denies having any pain History - Adult longitudinal Past medical history: Reports: Diabetes mellitus, Kidney disease/stone s. Additional surgical history: AVF creation Smoking status for patients 13 years old or olde r: Never Smoker Allergies: Coded Allergies: No Known Allergies (12/08/21) Review of Systems Free Text ROS Notes Free Text ROS Notes: 12 systems reviewed and negative Objective General VS: Last Documented: Result Date Time Pulse Ox 96 04/23 1549 B/P 151/72 04/23 1549 B/P Mean 98 04/23 1549 O2 Delivery Room air 04/23 1549 Pulse 65 04/23 1549 Resp 18 04/23 1549 Temp 36.4 04/23 1405 PATIENT WEIGHT: Weight (lb): Weight (oz): Weight (kg): 54.545 Medications: Active Meds + DC'd Last 24 Hrs Lactulose (LACTULOSE) 60 GM X1ED STA PO (DC) Sodium Polystyrene Sulfonate (KAYEXELATE) 30 GM X1ED STA PO (DC) Dietitian nutrition assessment The data set between the solid lines has been im ported from the dietitian's assessment. BMI Calculated: 22.7 Nutrition related diagnosis: Nutrition diagnosis details: Nutrition problem: Nutrition etiology: Nutrition signs and symptoms: Nutrition prescription: Dietitian name: Assessment completed: Physical Exam Wound/incision: Location: Posterior plantar lateral heel right foot Extremities: Left moves all, Left no cyanosis, Left abnormal capillary refill, Left cool, Left decreased range of motion, Right moves all, Right no cyanosis, Right abnormal capillary refill, Right cool, Right dec reased range of motion LE vascular pulse assess: Nonpalpable R posterior tibialis, Nonpalpable L posterior tibialis, 1+ R dorsalis pedis, 1+ L dorsalis pedis Reflex testing: Monofilament: DIM Toes, DIM Ball of foot, DIM Arch, DIM Heel Reflexes: Achilles: 2+ Babinski: 0 Musculoskeletal: Musculoskeletal: decreased ROM, pain on palpati on to ulcerative site right heel Neuro/VACATION GUIDE: alert, oriented X 3, sensory deficit Skin: cool, erythema Ulcer: Location: heel (right foot) Type: pressure Appearance: granulation tissue, slough Drainage: serosanguineous, mild Depth: muscle w/out necrosis Debo wound: cool, dry, erythema Stage (pressure): 4 Results Findings/Data: Laboratory Tests: 04/23 04/23 1240 1240 Chemistry Sodium (134 - 147 mEq/L) 129 L Potassium (3.4 - 5.0 mEq/L) 6.0 *H Chloride (100 - 108 mEq/L) 95 L Carbon Dioxide (21 - 33 mEq/l) 24 Anion Gap (0 - 20) 16 BUN (7 - 18 mg/dL) 81 H Creatinine (0.6 - 1.3 mg/dL) 11.0 H Glomerular Filtr Rate (80 - 90) 3.5 L Glucose (70 - 110 mg/dL) 273 H Lactic Acid (0.4 - 1.9 mmol/L) 0.9 Calcium (8.0 - 10.5 mg/dL) 8.0 Total Bilirubin (0.0 - 1.0 mg/dL) < 0.20 Direct Bilirubin (0.0 - 0.30 MG/DL) < 0.10 Indirect Bilirubin (MG/DL) 0.10 AST (15 - 37 IUnit/L) 17 ALT (30 - 65 IUnit/L) < 7 L Total Alk Phosphatase (20 - 125 IUnit/L) 85 Total Protein (6.4 - 8.2 g/dL) 7.7 Albumin (3.4 - 5.0 g/dL) 3.70 Hematology WBC (4.5 - 11.0 x10 3/uL) 5.5 RBC (3.54 - 5.02 x10 6/uL) 4.48 Hgb (11.0 - 15.0 g/dL) 11.4 Hct (33.0 - 45.0 %) 37.6 MCV (81.0 - 99.0 fL) 83.9 MCH (27.0 - 33.0 pg) 25.4 L MCHC (33.0 - 37.0 g/dL) 30.3 L RDW (11.5 - 14.5 %) 18.2 H Plt Count (150 - 400 x10 3/uL) 221 MPV (7.0 - 9.0 fL) 10.4 H Neut % (Auto) (56.0 - 77.0 %) 68.7 Lymph % (Auto) (14.0 - 32.0 %) 17.6 [place] % (Auto) (4.8 - 9.0 %) 9.9 H Eos % (Auto) (0.3 - 3.7 %) 2.9 Baso % (Auto) (0.0 - 2.0 %) 0.5 Neut # (Auto) (2.0 - 7.6 x10 3/uL) 3.76 Lymph # (Auto) (1.0 - 3.8 x10 3/uL) 0.96 L [place] # (Auto) (0.1 - 0.8 x10 3/uL) 0.54 Eos # (Auto) (0.0 - 0.2 x10 3/uL) 0.16 Baso # (Auto) (0.0 - 0.2 x10 3/uL) 0.03 Abs Immat Gran (auto) (0.00 - 0.03 x10 3/uL) 0 .02 Add Manual Diff NO Immature Gran % (0.0 - 2.0 %) 0.4 Nucleated RBC % (0 - 0 %) 0.0 Nucleated RBCs # (Man) (0.0 - 0.1 x10 3/uL) 0.0 0 Recent Impressions: RADIOLOGY - XR CHEST 2 V 04/23 1145 Report Impression - Status: SIGNED Entered: 04/23/2022 1233 IMPRESSION: 1. Central bronchial wall thickening with marked pulmonary vascular congestion and or central interstitial edema. 2. Scattered bilateral platelike atelectasis wit hout dense lobar consolidation. 3. Enlarged cardiac silhouette. Impression By: [email or web address] - Theo worthington M.D. 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 arterial doppler may need mri right foot wound cultures right heel. silvadene cream and DSD once daily. Continue with Prevalon boots. Will continue to follow. Electronically Signed by Delma Saucedo DPM on 09/22 at 1818 RPT #:[id number] END OF REPORT 2022-04-23 17:32:00-00:00 [facility] ([facility]) Vascular Surgery Consult Note REPORT#:[id number] REPORT STATUS: Signed DATE:04/23/22 TIME: 1732 PATIENT: PAOLA MISHRA UNIT #: [id number] ROOM/BED: [place] [id number] : 57 AGE: 66 SEX: F ATTEND: Marcella Young MD ADM AUTHOR: Az Francois MD * ALL edits or amendments must be made on the [employer]/computer document * History of Present Illness Requesting Clinician: Dr. Stewart Reason for consult: hyperkalemia, thrombosed left arm avf Chief complaint: same HPI: 6-year-old female with history of end-stage malik l disease on chronic hemodialysis Tuesday y and Tuesday, hypertension and diabetes mellitus who presented today to my office with a clotted AV f istula. Last reported hemodialysis was on Tuesday. Patient also has rig ht heel pain and wound for about 3 weeks. She denies fever, chills, nausea, vomiting or other complaints. Her laboratories showed sodi um 129, potassium 6, CO2 24, BUN 81, creatinine 11, glucose 273, hemoglobin 11.4, platelet 221, bloo d count 5.5. Isent her to the ED with concern for hyperkal emia dn planned thrombectomy and possible right leg intervention when stable. History - Adult longitudinal Past medical history: Reports: Diabetes mellitus, Kidney disease/stone s. Additional surgical history: AVF creation Smoking status for patients 13 years old or olde r: Never Smoker Medications: Home Medications: Medication Dose/Rte/Freq Days Qty Entered Last Max Daily Dose Reviewed FLUCONAZOLE (DIFLUCAN) 200 MG PO DAILY 2 Strength: 200 MG TAB 0916 INSULIN DEGLUDEC 25 UNITS SUBQ DAILY 12/08/21 (TRESIBA FLEXTOUCH 0916 U-100 (3mL)) Strength: 100 UNIT/ML PEN.INJCTR amLODIPine (NORVASC) 10 MG PO DAILY 12/08/21 Strength: 10 MG TAB 0919 TACROLIMUS (PROGRAF) 1 MG PO BID 12/08/21 Strength: 1 MG CAP 0920 cloNIDine 0.1 MG PO 01/19/22 Strength: 0.1 MG TAB TID PRN BP 1701 GABAPENTIN (NEURONTIN) 100 MG PO DAILY 2 Strength: 100 MG CAP 1701 [CALITROL] 0.5 MG DAILY 2 01/19/22 Strength: 1702 ATORVASTATIN (LIPITOR) 20 MG PO BEDTIME 2 Strength: 20 MG TAB 1702 OMEPRAZOLE ER (PriLOSEC) 40 MG PO DAILY 2 Strength: 40 MG CAP.DR 1703 APIXABAN (ELIQUIS) 5 MG PO BID 01/19/22 Strength: 5 MG TAB 1704 [HUMALOG KIWIK PED] 3-5 UNITS SUBQ AC 01/19/22 Strength: 1705 IRON 65 MG PO DAILY 01/19/22 Strength: 18 MG TAB 1706 MAGNESIUM OXIDE 250 MG PO DAILY 01/19/22 Strength: 250 MG TAB 1706 CHOLECALCIFEROL 2,000 UNITS PO DAILY 01/19/22 (VITAMIN D3) 170 (VITAMIN D3) Strength: 2,000 UNIT CAP ACETAMINOPHEN/CODEINE 1 TAB PO 40 01/20/22 (TYLENOL WITH CODEINE Q4H PRN PRN ACUTE 1936 #3 300/30 MG) PAIN Strength: 300 MG-30 MG TAB Current Hospital Medications: Electrolytic, Caloric, And Diana Sig/Mane Start time Last Medication Dose Route Stop Time Status Admin Lactulose 60 GM X1ED STA 04/23 1358 DC 04/23 (LACTULOSE) PO 04/23 1359 1411 Sodium Polystyrene 30 GM X1ED STA 04/23 1358 DC 04/23 Sulfonate PO 04/23 1359 1411 (KAYEXELATE) Review of Systems Constitutional: Reports: fatigue. Denies: chills, fever. Skin: Denies: abrasion, bruising. Allergy/Immun: Denies: hives, itching. Eyes: Denies: redness, discharge. ENT: Denies: ear drainage, ear ringing. Respiratory: Denies: hemoptysis, SOB. Cardiovascular: Denies: chest pain, palpitations. GI: Denies: abdominal pain, nausea, vomiting. : Denies: dysuria, flank pain. Musculoskeletal: Denies: arthritis, extremity pain. Heme: Denies: bleeding, bruising. Endocrine: Denies: cold intolerance, heat intolerance. Neuro: Denies: change in LOC, seizure. Psych: Denies: agitation, anxiety. Allergies: Coded Allergies: No Known Allergies (12/08/21) Objective VS/I O: Last Documented: Result Date Time Pulse Ox 96 04/23 1549 B/P 151/72 04/23 1549 B/P Mean 98 04/23 1549 O2 Delivery Room air 04/23 1549 Pulse 65 04/23 1549 Resp 18 04/23 1549 Temp 97.6 04/23 1405 PATIENT WEIGHT: Weight (lb): Weight (oz): Weight (kg): 54.545 Physical Exam General appearance: alert, no acute distress Head/eyes: atraumatic, normocephalic ENT: normal nose Neck: non-tender, supple/no meningismus Cardiovascular: normal heart sounds, no rub Respiratory: aerating well, symmetric expansion Abdomen: non-tender, soft Genitourinary: no flank pain Extremities: pitting edema, non-tender Musculoskeletal: no CVA tenderness, no tendernes s Neuro/VACATION GUIDE: alert, normal speech Skin: dry, intact Findings/Data: Laboratory Tests 04/23 04/23 1240 1240 Chemistry Sodium (134 - 147 mEq/L) 129 L Potassium (3.4 - 5.0 mEq/L) 6.0 *H Chloride (100 - 108 mEq/L) 95 L Carbon Dioxide (21 - 33 mEq/l) 24 Anion Gap (0 - 20) 16 BUN (7 - 18 mg/dL) 81 H Creatinine (0.6 - 1.3 mg/dL) 11.0 H Glomerular Filtr Rate (80 - 90) 3.5 L Glucose (70 - 110 mg/dL) 273 H Lactic Acid (0.4 - 1.9 mmol/L) 0.9 Calcium (8.0 - 10.5 mg/dL) 8.0 Total Bilirubin (0.0 - 1.0 mg/dL) < 0.20 Direct Bilirubin (0.0 - 0.30 MG/DL) < 0.10 Indirect Bilirubin (MG/DL) 0.10 AST (15 - 37 IUnit/L) 17 ALT (30 - 65 IUnit/L) < 7 L Total Alk Phosphatase (20 - 125 IUnit/L) 85 Total Protein (6.4 - 8.2 g/dL) 7.7 Albumin (3.4 - 5.0 g/dL) 3.70 Laboratory Tests 04/23 1240 Hematology WBC (4.5 - 11.0 x10 3/uL) 5.5 RBC (3.54 - 5.02 x10 6/uL) 4.48 Hgb (11.0 - 15.0 g/dL) 11.4 Hct (33.0 - 45.0 %) 37.6 MCV (81.0 - 99.0 fL) 83.9 MCH (27.0 - 33.0 pg) 25.4 L MCHC (33.0 - 37.0 g/dL) 30.3 L RDW (11.5 - 14.5 %) 18.2 H Plt Count (150 - 400 x10 3/uL) 221 MPV (7.0 - 9.0 fL) 10.4 H Neut % (Auto) (56.0 - 77.0 %) 68.7 Lymph % (Auto) (14.0 - 32.0 %) 17.6 [place] % (Auto) (4.8 - 9.0 %) 9.9 H Eos % (Auto) (0.3 - 3.7 %) 2.9 Baso % (Auto) (0.0 - 2.0 %) 0.5 Neut # (Auto) (2.0 - 7.6 x10 3/uL) 3.76 Lymph # (Auto) (1.0 - 3.8 x10 3/uL) 0.96 L [place] # (Auto) (0.1 - 0.8 x10 3/uL) 0.54 Eos # (Auto) (0.0 - 0.2 x10 3/uL) 0.16 Baso # (Auto) (0.0 - 0.2 x10 3/uL) 0.03 Abs Immat Gran (auto) (0.00 - 0.03 x10 3/uL) 0. 02 Add Manual Diff NO Immature Gran % (0.0 - 2.0 %) 0.4 Nucleated RBC % (0 - 0 %) 0.0 Nucleated RBCs # (Man) (0.0 - 0.1 x10 3/uL) 0.0 0 Radiology data: Recent Impressions: RADIOLOGY - XR CHEST 2 V 04/23 1145 Report Impression - Status: SIGNED Entered: 04/23/2022 1233 IMPRESSION: 1. Central bronchial wall thickening with marked pulmonary vascular congestion and or central interstitial edema. 2. Scattered bilateral platelike atelectasis wit hout dense lobar consolidation. 3. Enlarged cardiac silhouette. Impression By: [email or web address] - Theo worthington M.D. Diagnosis, Assessment Plan Problem List/A P: 1. Dialysis AV fistula malfunction 2. End stage renal disease 3. Hyperkalemia Free Text A P: On discussion with nephrology, willplan placemen t of nedside non-tunneled dialysis catheter to re-initiate hd. Thn plan av f thrombectomy on Tuesday. Regarding the right foot ulc er. Management of wound per podiatry. Her pulses are palpable. Will obtain arterial duplex to guide f urther therapy. at 8857 RPT #:[id number] END OF REPORT 2022-04-23 16:37:00-00:00 [facility] ([facility] Clinical Note REPORT#:[id number] REPORT STATUS: Signed DATE:04/23/22 TIME: 1637 PATIENT: PAOLA MISHRA UNIT #: [id number] ROOM/BED: [place] [address] : 57 AGE: 66 SEX: F ATTEND: Marcella Young MD ADM AUTHOR: Demetrius Barraza MD * ALL edits or amendments must be made on the el [employer]/computer document * Clinical Note Note: Procedure: Hemodialysis Indication: End-stage renal disease, hyperkalemi a 2 hours 2K Ultrafiltration 2 to 3 L QB 350 mill per minute QD 700 mill per minute Electronically Signed by Demetrius Barraza MD on at 0746 RPT #:[id number] END OF REPORT 2022-04-23 16:32:00-00:00 [facility] Consultation Note REPORT#:[id number] REPORT STATUS: Signed DATE:04/23/22 TIME: 1632 PATIENT: PAOLA MISHRA UNIT #: [id number] ROOM/BED: [place] [address] : 57 AGE: 66 SEX: F ATTEND: Marcella Young MD ADM AUTHOR: Demetrius Barraza MD * ALL edits or amendments must be made on the [employer]/computer document * History of Present Illness Requesting clinician: marcella Stewart Reason for consult: ESRD/Hyperkalemia Chief complaint: Clotted AVF HPI: Patient seen and evaluated, discussed with care team, 66-year-old female with history of end-stage renal d isease on chronic hemodialysis Tuesday and Tuesday, hypertension and diabetes [facility] who presented to the emergency room today with a clotted AV fistula. Last reported h emodialysis was on Tuesday. Patient also has right heel pain and wound for about 3 weeks. She denies fever, chills, nausea, vomiting or other complaints. He r laboratories showed sodium 129, potassium 6, CO2 24, BUN 81, creati nine 11, glucose 273, hemoglobin 11.4, platelet 221, blood count 5.5. Renal consult was requested for management of her end-stage renal disease/hemodialysis. History - Adult longitudinal Past medical history: Reports: Diabetes mellitus, Kidney disease/stone s. Additional surgical history: AVF creation Smoking status for patients 13 years old or olde r: Never Smoker Medications: Home Medications: Medication Dose/Rte/Freq Days Qty Entered Last Max Daily Dose Reviewed FLUCONAZOLE (DIFLUCAN) 200 MG PO DAILY 12/08/21 Strength: 200 MG TAB 0916 INSULIN DEGLUDEC 25 UNITS SUBQ DAILY 12/08/21 (TRESIBA FLEXTOUCH 0916 U-100 (3mL)) Strength: 100 UNIT/ML PEN.INJCTR amLODIPine (NORVASC) 10 MG PO DAILY 12/08/21 Strength: 10 MG TAB 0919 TACROLIMUS (PROGRAF) 1 MG PO BID 12/08/21 Strength: 1 MG CAP 0920 cloNIDine 0.1 MG PO 01/19/22 Strength: 0.1 MG TAB TID PRN BP 1701 GABAPENTIN (NEURONTIN) 100 MG PO DAILY 01/19/22 Strength: 100 MG CAP 1701 [CALITROL] 0.5 MG DAILY 2 01/19/22 Strength: 1702 ATORVASTATIN (LIPITOR) 20 MG PO BEDTIME 2 Strength: 20 MG TAB 1702 OMEPRAZOLE ER (PriLOSEC) 40 MG PO DAILY 2 Strength: 40 MG CAP.DR 1703 APIXABAN (ELIQUIS) 5 MG PO BID 01/19/22 Strength: 5 MG TAB 1704 [HUMALOG KIWIK PED] 3-5 UNITS SUBQ AC 01/19/22 Strength: 1705 IRON 65 MG PO DAILY 01/19/22 Strength: 18 MG TAB 1706 MAGNESIUM OXIDE 250 MG PO DAILY 01/19/22 Strength: 250 MG TAB 1706 CHOLECALCIFEROL 2,000 UNITS PO DAILY 01/19/22 (VITAMIN D3) 170 (VITAMIN D3) Strength: 2,000 UNIT CAP ACETAMINOPHEN/CODEINE 1 TAB PO 40 01/20/22 (TYLENOL WITH CODEINE Q4H PRN PRN ACUTE 1936 #3 300/30 MG) PAIN Strength: 300 MG-30 MG TAB Current Hospital Medications: Electrolytic, Caloric, And Diana Sig/Mane Start time Last Medication Dose Route Stop Time Status Admin Lactulose 60 GM X1ED STA 04/23 1358 DC 04/23 (LACTULOSE) PO 04/23 1359 1411 Sodium Polystyrene 30 GM X1ED STA 04/23 1358 DC 04/23 Sulfonate PO 04/23 1359 1411 (KAYEXELATE) Allergies: Coded Allergies: No Known Allergies (12/08/21) Review of Systems Constitutional: Reports: fatigue. Denies: chills, fever. Skin: Denies: abrasion, bruising. Allergy/Immun: Denies: hives, itching. Eyes: Denies: redness, discharge. ENT: Denies: ear drainage, ear ringing. Respiratory: Denies: hemoptysis, SOB. Cardiovascular: Denies: chest pain, palpitations. GI: Denies: abdominal pain, nausea, vomiting. : Denies: dysuria, flank pain. Musculoskeletal: Denies: arthritis, extremity pain. Heme: Denies: bleeding, bruising. Endocrine: Denies: cold intolerance, heat intolerance. Neuro: Denies: change in LOC, seizure. Psych: Denies: agitation, anxiety. Objective General VS/I O: Vital Signs: Date Time Temp Pulse Resp B/P B/P Pulse O2 O2 F low FiO2 Mean Ox Delivery Rate 04/23 1549 65 18 151/72 98 96 Room air 04/23 1405 36.4 65 17 173/79 110 96 Room air 04/23 1118 68 18 152/78 102 95 Room air PATIENT WEIGHT: Weight (lb): Weight (oz): Weight (kg): 54.545 Medications: Active Meds + DC'd Last 24 Hrs Lactulose (LACTULOSE) 60 GM X1ED STA PO (DC) Sodium Polystyrene Sulfonate (KAYEXELATE) 30 GM X1ED STA PO (DC) Physical Exam General appearance: alert, no acute distress Head/eyes: atraumatic, normocephalic ENT: normal nose Neck: non-tender, supple/no meningismus Cardiovascular: normal heart sounds, no rub Respiratory: aerating well, symmetric expansion Abdomen: non-tender, soft Genitourinary: no flank pain Extremities: pitting edema, non-tender Musculoskeletal: no CVA tenderness, no tendernes s Neuro/VACATION GUIDE: alert, normal speech Skin: dry, intact Results Findings/Data: Laboratory Tests 04/23 04/23 1240 1240 Chemistry Sodium (134 - 147 mEq/L) 129 L Potassium (3.4 - 5.0 mEq/L) 6.0 *H Chloride (100 - 108 mEq/L) 95 L Carbon Dioxide (21 - 33 mEq/l) 24 Anion Gap (0 - 20) 16 BUN (7 - 18 mg/dL) 81 H Creatinine (0.6 - 1.3 mg/dL) 11.0 H Glomerular Filtr Rate (80 - 90) 3.5 L Glucose (70 - 110 mg/dL) 273 H Lactic Acid (0.4 - 1.9 mmol/L) 0.9 Calcium (8.0 - 10.5 mg/dL) 8.0 Total Bilirubin (0.0 - 1.0 mg/dL) < 0.20 Direct Bilirubin (0.0 - 0.30 MG/DL) < 0.10 Indirect Bilirubin (MG/DL) 0.10 AST (15 - 37 IUnit/L) 17 ALT (30 - 65 IUnit/L) < 7 L Total Alk Phosphatase (20 - 125 IUnit/L) 85 Total Protein (6.4 - 8.2 g/dL) 7.7 Albumin (3.4 - 5.0 g/dL) 3.70 Laboratory Tests 04/23 1240 Hematology WBC (4.5 - 11.0 x10 3/uL) 5.5 RBC (3.54 - 5.02 x10 6/uL) 4.48 Hgb (11.0 - 15.0 g/dL) 11.4 Hct (33.0 - 45.0 %) 37.6 MCV (81.0 - 99.0 fL) 83.9 MCH (27.0 - 33.0 pg) 25.4 L MCHC (33.0 - 37.0 g/dL) 30.3 L RDW (11.5 - 14.5 %) 18.2 H Plt Count (150 - 400 x10 3/uL) 221 MPV (7.0 - 9.0 fL) 10.4 H Neut % (Auto) (56.0 - 77.0 %) 68.7 Lymph % (Auto) (14.0 - 32.0 %) 17.6 [place] % (Auto) (4.8 - 9.0 %) 9.9 H Eos % (Auto) (0.3 - 3.7 %) 2.9 Baso % (Auto) (0.0 - 2.0 %) 0.5 Neut # (Auto) (2.0 - 7.6 x10 3/uL) 3.76 Lymph # (Auto) (1.0 - 3.8 x10 3/uL) 0.96 L [place] # (Auto) (0.1 - 0.8 x10 3/uL) 0.54 Eos # (Auto) (0.0 - 0.2 x10 3/uL) 0.16 Baso # (Auto) (0.0 - 0.2 x10 3/uL) 0.03 Abs Immat Gran (auto) (0.00 - 0.03 x10 3/uL) 0. 02 Add Manual Diff NO Immature Gran % (0.0 - 2.0 %) 0.4 Nucleated RBC % (0 - 0 %) 0.0 Nucleated RBCs # (Man) (0.0 - 0.1 x10 3/uL) 0. 00 Diagnosis, Assessment Plan Free Text DxA P Notes Free text DxA P notes: Patient seen and evaluated, discussed with care team, images and laboratories reviewed. History of hypertension: Monitor blood p ressure closely and adjust medications as needed Diabetes mellitus: Insulin: Monitor bloo d sugar closely adjust insulin dose as needed. End-stage renal disease on chronic hemod ialysis, Tuesday, Tuesday and Tuesday, last reported hemodialysis was on Tuesday. Clotted AV fistula: Vascular surgery was consult ed. Hyperkalemia: Discussed with vascular surgery, w ill place temporary dialysis catheter, plan for hemodialy sis for 2 hours tonight followed by full session in the morning. Electronically Signed by Demetrius Barraza MD on at 1637 RPT #:[id number] END OF REPORT 2022-04-23 15:09:00-00:00 [facility] ([facility]) Clinical Note REPORT#:[id number] REPORT STATUS: Signed DATE:04/23/22 TIME: 1509 PATIENT: PAOLA MISHRA UNIT #: [id number] ROOM/BED: [place] [address] : 57 AGE: 66 SEX: F ATTEND: Marcella Escobar MD ADM AUTHOR: Marcella Stewart MD * ALL edits or amendments must be made on the el ectronic/computer document * Clinical Note Note: H/P DICTATED at 1509 RPT #:[id number] END OF REPORT 2022-04-23 12:30:00-00:00 [id number] [address] PATIENT NAME: PAOLA MISHRA ADMIT DATE: ACCOUNT NO: [id number] [place]: [facility] AGE: 66 REPORT TYPE: eELECTROCARDIOGRAM REPORT SEX: F ADMITTING PHYSICIAN:Marcella Stewart MD ATTENDING PHYSICIAN:Marcella Stewart MD Order: [id number] Test Reason : Test Date/Time Stamp: TueApr 23 2022 12:30:24 Blood Pressure : / mmHG Vent. Rate : 065 BPM Atrial Rate : 065 BPM P-R Int : 148 ms QRS Dur : 070 ms QT Int : 420 ms P-R-T Axes : 041 -03 061 degree s QTc Int : 436 ms Normal sinus rhythm Normal ECG When compared with ECG of 19-JAN-2022 16:06, Significant changes have occurred Confirmed by LARISSA SCHNEIDER MD ([id number]) on 04/24/20 12:48:00 PM Referred By: Self Referred Confirmed by:LARISSA ELLIS MD at 1248 PATIENT NAME: PAOLA MISHRA ACCOUNT #: [id number] 2022-04-23 11:27:00-00:00 [facility] ([facility] EMERGENCY PROVIDER REPORT REPORT#:[id number] REPORT STATUS: Signed DATE:04/23/22 TIME: 1126 PATIENT: PAOLA MISHRA UNIT #: [id number] ROOM/BED: [place] [address] AGE: 66 SEX: F PCP PHYS: Undefined Provider SERVICE AUTHOR: Allison Etienne * ALL edits or amendments must be made on the [employer]/computer document * Allison Etienne 04/23/22 1127: HPI-General Illness Free Text HPI Notes Free Text HPI Notes 66-year-old female presents with her family member complaining of her left upper arm dialysis fistula being clogged. Patient stat es the last time she had dialysis was Tuesday. Patient states Dr. Kathleen is a vascular surgeon Dr. Jackson to her nephrologi st. Patient also endorses right heel pain and wound for 3 weeks and wants that evaluated while she i s here. Small 1 inch diabetic ulcer noted to right heel no signs of obvious in fection no drainage noted. General Confirmed Patient Yes Initial Greet Date/Time 04/23/22 1057 PCP DIRECTOR PAID MEDIA THAO MOTA Presentation Chief Complaint RT HEAL PAIN DIALYSIS FISTULA CL OGGED Hx Obtained From Patient, Spouse Sudden in Onset? Yes Onset Occurred TUESDAY Symptom Duration Since onset, Constant Progression since Onset Unchanged, Constant Location Foot R Quality Painful Radiation Does not radiate. Severity: Onset Moderate Severity: Current Moderate Exacerbated by Nothing Relieved by Nothing Review of Systems ROS Statements All systems rev neg except as marked. Review of Systems Musculoskeletal Reports: Extremity pain. Skin Reports: Erythema, Ulceration. Free Text ROS Notes Free Text ROS Notes Left upper arm dialysis fistula clogged Past Medical History - Adult Stated Complaint RIGHT LOWER LEG PAIN Allergies Coded Allergies: No Known Allergies (12/08/21) Review of Nursing Notes Rev avail, and agree Past Medical History: Reports: Diabetes mellitus, Kidney disease/stone s. Smoking status for patients 13 years old or olde r: Never Smoker Physical Exam Vital Signs Vital Signs First Documented: Result Date Time Pulse Ox 95 04/23 1118 B/P 152/78 04/23 1118 B/P Mean 102 04/23 1118 O2 Delivery Room air 04/23 1118 Pulse 68 04/23 1118 Resp 18 04/23 1118 Temp 36.4 04/23 1405 Last Documented: Result Date Time Pulse Ox 96 04/23 1405 B/P 173/79 04/23 1405 B/P Mean 110 04/23 1405 O2 Delivery Room air 04/23 1405 Temp 36.4 04/23 1405 Pulse 65 04/23 1405 Resp 17 04/23 1405 Review of Vital Signs Reviewed, Vital signs norm al Physical Exam General/Const General/Const Awake, Alert, Well appearing MS Head Head Normocephalic Eyes Eyes PERRL Ears/Nose/Throat Ears/Nose/Throat Airway patent, Mucous membrane s moist, Pharynx NL MS Neck Neck Supple, No meningismus, Full range of olvin on, No swelling, Non-tender, No masses Resp/Chest Respiratory/Chest Breath sounds NL, Breath soun ds = bilat, No respiratory distress, No rales, No rhonchi, No wheezing Cardiovascular Cardiovascular Heart rate NL, Regular r hythm, Heart sounds NL, Cap refill not delayed, Peripheral circulation NL Abdomen/GI Abdomen/GI Soft, Non-tender, No guarding, No re bound MS Back Back Inspection NL, Painless range of motion, N on-tender, No CVA tenderness MS Upper Extrem Upper Extremity/MS Inspection NL, No swelling, Non-tender, No erythema, No deformity, Neurologic intact, Vascular intact, N o clubbing/cyanosis MS Lower Extrem Lower Ext/Pelvis/MS Inspection NL, No swelling, Non-tender, No erythema, No deformity, Neurologic intact, Vascular intact, N o edema MS Ankle/Foot Ankle/Foot Inspection NL, No swelling, Non-tend er, No deformity, Neurologic intact, Vascular intact, No edema Text/Dict Notes Small 1 inch right heel diabetic foot ulcer note d. No signs of obvious infection noted no drainage noted. Skin Skin Color NL, Warm, Dry, Turgor NL Neurologic Neurologic Oriented X3, Speech NL, No motor def icits, No sensory deficits Interpretation Diagnostics Lab Results Interpretation Results Laboratory Tests 04/23/22 1240: [Embedded Image Not Available] Laboratory Tests: 04/23 04/23 1240 1240 Chemistry Sodium (134 - 147 mEq/L) 129 L Potassium (3.4 - 5.0 mEq/L) 6.0 *H Chloride (100 - 108 mEq/L) 95 L Carbon Dioxide (21 - 33 mEq/l) 24 Anion Gap (0 - 20) 16 BUN (7 - 18 mg/dL) 81 H Creatinine (0.6 - 1.3 mg/dL) 11.0 H Glomerular Filtr Rate (80 - 90) 3.5 L Glucose (70 - 110 mg/dL) 273 H Lactic Acid (0.4 - 1.9 mmol/L) 0.9 Calcium (8.0 - 10.5 mg/dL) 8.0 Total Bilirubin (0.0 - 1.0 mg/dL) < 0.20 Direct Bilirubin (0.0 - 0.30 MG/DL) < 0.10 Indirect Bilirubin (MG/DL) 0.10 AST (15 - 37 IUnit/L) 17 ALT (30 - 65 IUnit/L) < 7 L Total Alk Phosphatase (20 - 125 IUnit/L) 85 Total Protein (6.4 - 8.2 g/dL) 7.7 Albumin (3.4 - 5.0 g/dL) 3.70 Hematology WBC (4.5 - 11.0 x10 3/uL) 5.5 RBC (3.54 - 5.02 x10 6/uL) 4.48 Hgb (11.0 - 15.0 g/dL) 11.4 Hct (33.0 - 45.0 %) 37.6 MCV (81.0 - 99.0 fL) 83.9 MCH (27.0 - 33.0 pg) 25.4 L MCHC (33.0 - 37.0 g/dL) 30.3 L RDW (11.5 - 14.5 %) 18.2 H Plt Count (150 - 400 x10 3/uL) 221 MPV (7.0 - 9.0 fL) 10.4 H Neut % (Auto) (56.0 - 77.0 %) 68.7 Lymph % (Auto) (14.0 - 32.0 %) 17.6 [place] % (Auto) (4.8 - 9.0 %) 9.9 H Eos % (Auto) (0.3 - 3.7 %) 2.9 Baso % (Auto) (0.0 - 2.0 %) 0.5 Neut # (Auto) (2.0 - 7.6 x10 3/uL) 3.76 Lymph # (Auto) (1.0 - 3.8 x10 3/uL) 0.96 L [place] # (Auto) (0.1 - 0.8 x10 3/uL) 0.54 Eos # (Auto) (0.0 - 0.2 x10 3/uL) 0.16 Baso # (Auto) (0.0 - 0.2 x10 3/uL) 0.03 Abs Immat Gran (auto) (0.00 - 0.03 x10 3/uL) 0. 02 Add Manual Diff NO Immature Gran % (0.0 - 2.0 %) 0.4 Nucleated RBC % (0 - 0 %) 0.0 Nucleated RBCs # (Man) (0.0 - 0.1 x10 3/uL) 0.0 0 Microbiology: Date/Time Procedure - Status Source Growth 04/23 1240 Blood Culture - RES BLOOD 04/23 1240 Blood Culture - RES BLOOD Recent Impressions: RADIOLOGY - XR CHEST 2 V 04/23 1145 Report Impression - Status: SIGNED Entered: 04/23/2022 1233 IMPRESSION: 1. Central bronchial wall thickening with marked pulmonary vascular congestion and or central interstitial edema. 2. Scattered bilateral platelike atelectasis wit hout dense lobar consolidation. 3. Enlarged cardiac silhouette. Impression By: [email or web address] - Theo worthington M.D. Lab Imaging Statement Laboratory radiographic studies reviewed and con sidered in the medical decision-making. Point of Care Testing Pulse Oximetry Pulse Ox % 95 On: Room air Interpretation Interpreted by me, Pulse oximetr y normal ECG #1 Interpretation Date 04/23/22 Time 1230 Interpreted by and reviewed by me, ED physician NL ECG Interpretation Normal rate, Normal sinus rhythm, No acute ischemic changes, No STEMI Rate 65 Re-Evaluation MDM ED Course Medication(s) Ordered Medication(s) Ordered: Electrolytic, Caloric, And Diana Sig/Mane Start time Last Medication Dose Route Stop Time Status Admin Lactulose 60 GM X1ED STA 04/23 1358 DC 04/23 PO 04/23 1359 1411 Sodium Polystyrene 30 GM X1ED STA 04/23 1358 DC 04/23 Sulfonate PO 04/23 1359 1411 Consultation Consultation 1 Referral/Consult Name Az Francois MD Director Of Math Called VASCULAR SURGERY Requested Call Time 1330 Requested Call Date 04/23/22 Call Returned Call returned Call Returned Time 1350 Call Returned Date 04/23/[address] Free Text [address] Notes [address] FRANCOIS states that he ca nnot operate on potassium of 6 so we need to correct the potassium and then he will see if he can ope rate later today. Consultation 2 Referral/Consult Name ; Francoise Jackson Director Of Math Called Nephrology Requested Call Time 1350 Requested Call Date 04/23/22 Call Returned Call not returned ( ), Call returned Call Returned Time 1355 Call Returned Date 04/23/22 Director Of Math Will see patient, Agrees with eval, Agrees with plan Free Text Consult Notes DR. JACKSON dates to give her 60 mg of lactulose and 30 mg of Kayexalate and admit her to Dr. Gaspar and consult Dr. Hennessy for his services. Consultation 3 Referral/Consult Name ; Delma Saucedo DPM Director Of Math Called PODIATRY Requested Call Time 1410 Requested Call Date 04/23/22 Call Returned Call not returned Patient Discharge Departure Vital Signs/Condition Vital Signs First Documented: Result Date Time Pulse Ox 95 04/23 1118 B/P 152/78 04/23 1118 B/P Mean 102 04/23 1118 O2 Delivery Room air 04/23 1118 Pulse 68 04/23 1118 Resp 18 04/23 1118 Temp 36.4 04/23 1405 Last Documented: Result Date Time Pulse Ox 96 04/23 1405 B/P 173/79 04/23 1405 B/P Mean 110 04/23 1405 O2 Delivery Room air 04/23 1405 Temp 36.4 04/23 1405 Pulse 65 04/23 1405 Resp 17 04/23 1405 All vital signs available at the time of this en try have been reviewed. Condition Guarded Clinical Impression Clinical Impression Primary Impression: Hyperkalemia Secondary Impressions: Dialy sis AV fistula malfunction, End stage renal disease Time of Impression 1400 Disposition Decision Admit Admit Physician Name Marcella Stewart MD Admit Physician Primary Care Physician Request Time 1400 Request Date 04/23/22 )( Admission Accepts Yes )( Accepted Time 1400 )( Accepted Date 04/23/22 Call Information will see patient, agrees with eval, agrees with plan Discharge/Care Plan Counseled Regarding Diagnosi s, Lab results, Imaging studies, Need for admission Admit Note I have spoken with the patie nt and/or caregivers. I have explained the patient's condition, diagnoses and natalia atment plan based on the information available to me at this time. I have answered the patient's and/ or caregiver's questions and addressed any concerns. The patient and/or careg ketan have as good an understanding of the patient 's diagnosis, condition and treatment plan as can be expected at this point. The patient has been stabilized within the capability of the emergency department. The patient wi ll be transported for further care and management or will be moved to an observation or inpatient service. I have communicated with the staff or medical p ractitioner taking over this patient's care. Critical Care Time Spent (minutes): 35 Services Performed Patient management by me, Yaneth pina spent at bedside, Reviewing test results, Reviewing imaging, Discussing phylicia ent care, Documentation in record, Time with fam/surrogate Separately billable procedures excluded from yaneth pina. Patient was critically ill due to: Any emergent dialysis and hyperkalemia. My treatment and management were: Arrange for emergency dialys is with vascular surgeon and patient's geriatric psychiatrist CC Note 1 Total critical care time 35 minutes. Total criti michael care time documented does not include time spent on separately billed proc edures or the services of residents, students, nurses or physician assista nts. I personally saw and examined the patient. I have reviewed all diagno stic interpretations and treatment plans as written. I was present for the nam portions of any procedures performed and the inclusive time noted in any critical care statement. Critical care time includes patient m anagement by me, time spent at the patients bedside, time to review lab and imaging results, discussing patient care, documentation in the medical record, and time spent with the f amily or caregiver. CC Note 2 The high probability of sudden, clinically signi ficant deterioration in the patient's condition required the highest level of my preparedness to intervene urgently. The services I provided to t his patient were to treat and/or prevent clinically significant deterioration that could result in s evere disability or . Services included the follow ing: chart data review, reviewing nursing notes and/ or old charts, documentation time, consu ltant collaboration regarding findings and treatment options, medic ation orders and management, direct patient care, re -evaluations, vital sign assessments and orderin g, interpreting and reviewing diagnostic studies/lab tests. Aggregate critical care time was 35 minutes, whi ch includes only time during which I was engaged in work directly related to the patient's care, as described above, whether at the bedside or elsewhe re in the Emergency Department. It did not include time spent performing other reported procedures or the services of residents, students, nurses or physician assista nts. Roland Manrique 04/25/22 0259: Past Medical History - Adult Home Medications Active Scripts ACETAMINOPHEN/CODEINE (TYLENOL WITH CODE INE #3 300/30 MG) 1 TAB PO Q4H PRN PRN ACUTE PAIN ACETAMINOPHEN/CODEINE (TYLENOL WITH CODEINE #3 300/30 MG) 1 TAB PO Q4H PRN PRN ACUTE PAIN #40 TABS Prov: 01/20/22 Reported Medications FLUCONAZOLE (DIFLUCAN) 100 MG PO DAILY GABAPENTIN (NEURONTIN) 100 MG PO TID MECLIZINE (ANTIVERT) 25 MG PO BID PRN PRN VERTIG O/DIZZINESS LEVOTHYROXINE (SYNTHROID) 25 MCG PO DAILY SIMVASTATIN (ZOCOR) 20 MG PO BEDTIME traMADol (ULTRAM) 50 MG PO Q8H PRN PRN PAIN FOLIC ACID/VIT B COMP/VIT C/ZINC (DIALYVITE 800 WITH ZINC) 1 TAB PO DAILY PIOGLITAZONE (ACTOS) 15 MG PO DAILY INSULIN DEGLUDEC (TRESIBA FLEXTOUCH U-100 (3mL)) 25 UNITS SUBQ DAILY amLODIPine (NORVASC) 10 MG PO DAILY TACROLIMUS (PROGRAF) 1 MG PO BID cloNIDine 0.1 MG PO TID PRN BP [CALITROL] 0.5 MG DAILY [CALITROL] 0.5 MG DAILY #2 ATORVASTATIN (LIPITOR) 20 MG PO BEDTIME OMEPRAZOLE ER (PriLOSEC) 40 MG PO DAILY APIXABAN (ELIQUIS) 5 MG PO BID [HUMALOG KIWIK PED] 3-5 UNITS SUBQ AC IRON 65 MG PO DAILY MAGNESIUM OXIDE 250 MG PO DAILY CHOLECALCIFEROL (VITAMIN D3) (VITAMIN D3) 2,000 UNITS PO DAILY Patient Discharge Departure Supervising Physician Note MidLv Saw Pt Alone I have reviewed the PA/DIRECTOR PAID MEDIA's note and plan of ana m pina. I was available for consultation as needed at al l times during the patient's visit in the emergency department. I agree with the clinical impression , plan and disposition. at 1433 Electronically Signed by Roland Manrique MD on at 0300 RPT #:[id number] END OF REPORT 2022-01-20 19:44:00-00:00 [facility] ([facility] Operative Note - Full REPORT#:[id number] REPORT STATUS: Signed DATE:01/20/22 TIME: 1943 PATIENT: PAOLA MISHRA UNIT #: [id number] ROOM/BED: : 57 AGE: 66 SEX: F ATTEND: Yeimi Francois MD ADM AUTHOR: Az Francois MD * ALL edits or amendments must be made on the el [employer]/computer document * Operative Report ORM Surgeries: Surgery Date and Time: 01/20/2022 1300 Primary Procedure: ARTERIOVENOUS FISTULA CREATI ON,LEFT Start date: 01/20/22 Start time: 1700 Pre-procedure diagnosis: End stage renal disease Post-procedure diagnosis: same Procedures performed: Creation of left upper arm brachial/radial basil ic arteriovenous fistula with basilic vein transposition [id number] Technique/Procedure: The patient was brought into the operati ng prepped and draped in usual sterile manner. Left lower extremity lateral ultrasound was completed demonstrating occlusion of left forearm ar teriovenous fistula, small basilic forearm vein and adequate large basilic upper arm vein. Early bif urcation of the radial and brachial arteries are noted in the upper arm the proximal portion. The skin was marked overlying the basilic vein and likely rad ial artery at the antecubital fossa. Incision was made in a skip fashion overl ana the basilic vein x2 and all branches were ligated an d transected and the vein was transected distally in the antecubital fossa. The vein was flushed and appeared to be an adequate quality for creation of fistula. A medial flap w as then created to the likely radial artery although could be brachial. This w as controlled proximally and distally with Vesseloops. It was controlled dist ally past the previous anastomosis for cephalic vei n fistula that of been occluded for many years. The outflow cephalic vein was also controlled with V esseloops. Basilic vein was then tunneled into place through a lateral tunne l the upper arm medial to the previous cephalic vein fistula. Good flush was n oted on completion of tunneling. The patient was given 2000 units of h eparin and Vesseloops were pulled up and arteriotomy was made and end-to-si de anastomosis was completed after spatulating the vein w ith a running 6-0 Prolene stitch and flushed before completion. There was excellent flow noted in th e fistula on completion. Gelfoam and thrombin and Surgicel were used adju nctively for hemostasis as needed. All wounds were copiously irrigated wit h sterile water. 3-0 Vicryl stitch was then used to close the subcut aneous tissues running fashion and 4-0 Monocryl stitch was used to close the skin in a running subcuticular fashion. The patient tolerated the procedure well. There were no complications. The patient was stable and discharged to PACU. Primary Surgeon: Dr. Az Francois Overhead Crane Operator(s): none Anesthesia: general anesthesia, regional anesthe stephanie Operative findings: Good thrill in arteriovenous fistula Complications: none Estimated blood loss in ml's: 50 cc Specimens removed/altered: none Implant(s): none at 2 RPT #:[id number] END OF REPORT 2022-01-20 19:43:00-00:00 [facility] ([facility]) Brief Op Note REPORT#:[id number] REPORT STATUS: Signed DATE:01/20/22 TIME: 1942 PATIENT: PAOLA MISHRA UNIT #: [id number] ROOM/BED: : 57 AGE: 66 SEX: F ATTEND: Yeimi Francois MD ADM AUTHOR: Az Francois MD * ALL edits or amendments must be made on the el [employer]ronic/computer document * Op/Inv Proc Note - Brief ORM Surgeries: Surgery Date and Time: 01/20/2022 1300 Primary Procedure: ARTERIOVENOUS FISTULA CREATI ON,LEFT Pre-procedure diagnosis: End stage renal disease Post-procedure diagnosis: same as pre procedure dx Procedures performed: Creation of left upper arm brachial/radial basil ic arteriovenous fistula with basilic vein transposition [id number] Primary Surgeon: Dr. Az Francois Overhead Crane Operator(s): none Anesthesia: general anesthesia, regional anesthe stephanie Findings: Good thrill in arteriovenous fistula Complications: none Estimated blood loss in ml's: 50 cc Specimens removed/altered: none at [employer] RPT #:[id number] END OF REPORT 2022-01-20 19:39:00-00:00 [facility] ([facility]) Brief Discharge Note w/Med Rec REPORT#:[id number] REPORT STATUS: Signed DATE:01/20/22 TIME: 1938 PATIENT: PAOLA MISHRA UNIT #: [id number] ROOM/BED: : 57 AGE: 66 SEX: F ATTEND: Yeimi Francois MD ADM AUTHOR: Az Francois MD * ALL edits or amendments must be made on the [employer]/computer document * Med Rec Med Rec Discharge meds: Continue taking these medications: FLUCONAZOLE (DIFLUCAN) 200 MG TAB 200 MILLIGRAM ORAL DAILY. Insulin Degludec (TRESIBA FLEXTOUCH U-100 (3mL)) 100 UNIT/ML PEN.INJCTR 25 UNITS SUBCUTANEOUS DAILY. amLODIPine (NORVASC) 10 MG TAB 10 MILLIGRAM ORAL DAILY. TACROLIMUS (PROGRAF) 1 MG CAP 1 MILLIGRAM ORAL TWICE DAILY. cloNIDine (CATAPRES) 0.1 MG TAB 0.1 MILLIGRAM ORAL THREE TIMES A DAY. as needed for BP GABAPENTIN (NEURONTIN) 100 MG CAP 100 MILLIGRAM ORAL DAILY. [CALITROL] 0.5 MILLIGRAM DAILY. Qty = 2 ATORVASTATIN (LIPITOR) 20 MG TAB 20 MILLIGRAM ORAL BEDTIME. OMEPRAZOLE ER (PriLOSEC) 40 MG CAP.DR 40 MILLIGRAM ORAL DAILY. APIXABAN (ELIQUIS) 5 MG TAB 5 MILLIGRAM ORAL TWICE DAILY. Instructions: PER WENDY WITH DR. FRANCOIS'S OFFICE, STOP TAKIN G TONIGHT AND TOMORROW MORNING FOR PROCEDURE. [HUMALOG KIWIK PED] 3-5 UNITS SUBCUTANEOUS BEFORE MEALS. IRON (IRON) 18 MG TAB 65 MILLIGRAM ORAL DAILY. MAGNESIUM OXIDE (MAGNESIUM OXIDE) 250 MG TAB 250 MILLIGRAM ORAL DAILY. CHOLECALCIFEROL (VITAMIN D3) (VITAMIN D3) 2,000 UNIT CAP 2,000 UNITS ORAL DAILY. Start taking the following new medications: ACETAMINOPHEN/CODEINE (TYLENOL WITH CODEINE #3 3 00/30 MG) 300 MG-30 MG TAB 1 TABLET ORAL EVERY 4 HOURS NEEDED. as neede d for ACUTE PAIN Qty = 40 No Refills Objective Results Findings/Data: Laboratory Tests: 01/20 01/20 01/20 1532 1151 1150 Chemistry Sodium (134 - 147 mEq/L) 135 Potassium (3.4 - 5.0 mEq/L) 5.5 H Chloride (100 - 108 mEq/L) 102 Carbon Dioxide (21 - 33 mEq/l) 28 Anion Gap (0 - 20) 11 BUN (7 - 18 mg/dL) 51 H Creatinine (0.6 - 1.3 mg/dL) 5.5 H Glomerular Filtr Rate (80 - 90) 7.8 L Glucose (70 - 110 mg/dL) 132 H POC Glucose (70 - 110 MG/DL) 111 H 128 H Calcium (8.0 - 10.5 mg/dL) 9.9 Coagulation INR (0.8 - 1.2) 1.3 H PT Patient/Control Mix (9.3 - 12.9 SECONDS) 13. 9 H Hematology WBC (4.5 - 11.0 x10 3/uL) 5.4 RBC (3.54 - 5.02 x10 6/uL) 3.31 L Hgb (11.0 - 15.0 g/dL) 8.9 L Hct (33.0 - 45.0 %) 28.8 L MCV (81.0 - 99.0 fL) 87.0 MCH (27.0 - 33.0 pg) 26.9 L MCHC (33.0 - 37.0 g/dL) 30.9 L RDW (11.5 - 14.5 %) 17.1 H Plt Count (150 - 400 x10 3/uL) 245 MPV (7.0 - 9.0 fL) 10.0 H Neut % (Auto) (56.0 - 77.0 %) 70.2 Lymph % (Auto) (14.0 - 32.0 %) 18.7 [place] % (Auto) (4.8 - 9.0 %) 9.0 Eos % (Auto) (0.3 - 3.7 %) 1.1 Baso % (Auto) (0.0 - 2.0 %) 0.6 Neut # (Auto) (2.0 - 7.6 x10 3/uL) 3.76 Lymph # (Auto) (1.0 - 3.8 x10 3/uL) 1.00 [place] # (Auto) (0.1 - 0.8 x10 3/uL) 0.48 Eos # (Auto) (0.0 - 0.2 x10 3/uL) 0.06 Baso # (Auto) (0.0 - 0.2 x10 3/uL) 0.03 Abs Immat Gran (auto) (0.00 - 0.03 x10 3/uL) 0. 02 Add Manual Diff NO Immature Gran % (0.0 - 2.0 %) 0.4 Nucleated RBC % (0 - 0 %) 0.0 Nucleated RBCs # (Man) (0.0 - 0.1 x10 3/uL) 0.0 0 VS/I O Last Documented: Result Date Time Pulse Ox 97 01/20 1202 B/P 166/76 01/20 1202 Temp 97.9 01/20 1202 Pulse 69 01/20 1202 Resp 18 01/20 1202 24 hour I O ending at 0700: 01/20 0700 01/19 1900 Intake Total Output Total Balance Patient 58 kg Weight Weight Standing scale Measurement Method Brief Discharge Note w/Med Rec Discharge to: Home/Self Care Discharge diagnosis: end stage renal disease Pt. condition on discharge: stable Additional Discharge Routines: Attending Follow- Up, Wound/Dressing Care Diet: Resume Home Diet/Feeds Activity: No Strenuous Activity Wound/dressing care: Change dressing carmenza ly, Clean wound daily, Do not submerge incision, Keep wound clean and dry, OK to shower tomorrow Follow-up Appointments Attending Physician: Attending Physician: Az Francois MD Attending physician follow up timeframe: In 1-2 weeks at 1940 RPT #:[id number] END OF REPORT 2022-01-19 16:06:00-00:00 [id number] [place] [address] PATIENT NAME: PAOLA MISHRA ADMIT DATE: ACCOUNT NO: [id number] ROOM NO: AGE: 66 REPORT TYPE: eELECTROCARDIOGRAM REPORT SEX: F ADMITTING PHYSICIAN: ATTENDING PHYSICIAN:Az Francois MD Order: [id number] Test Reason : PREOP Test Date/Time Stamp: TueJan 19 2022 16:06:53 Blood Pressure : / mmHG Vent. Rate : 071 BPM Atrial Rate : 071 BPM P-R Int : 134 ms QRS Dur : 078 ms QT Int : 394 ms P-R-T Axes : 053 073 016 degree s QTc Int : 428 ms Normal sinus rhythm with sinus arrhythmia Cannot rule out Anterior infarct , age undetermi peter Abnormal ECG Confirmed by MD RODRIGO, AME ([id number]) on 01/20/20 4:29:50 PM Referred By: Az Francois Confirmed by:AME GRIFFIN MD Electronically Signed by Ame Morin MD on 0 01/19/22 at 1629 PATIENT NAME: PAOLA MISHRA ACCOUNT #: [id number] 2021-12-10 07:59:00-00:00 [facility] ([facility]) Operative Note - Full REPORT#:[id number] REPORT STATUS: Signed DATE:12/10/21 TIME: 758 PATIENT: PAOLA MISHRA UNIT #: [id number] ROOM/BED: : 57 AGE: 66 SEX: F ATTEND: Yeimi Francois MD ADM AUTHOR: zA Francois MD * ALL edits or amendments must be made on the [employer]/computer document * Operative Report ORM Surgeries: Surgery Date and Time: 12/10/2021 0730 Proposed Primary Procedure: REMOVAL OF PD LINDA TER Proposed Secondary Procedure: LEFT UPPER EXTREM ITY ARTERIOVENOUS Start date: 12/10/21 Start time: 829 Pre-procedure diagnosis: end stage renal disease Malfunction of peritoneal dialysis catheter Post-procedure diagnosis: same Procedures performed: 1. Creation of left forearm arteriovenous radioc ephalic fistula with transposition 24193 2. Removal of tunneled peritoneal dialysis [place] [address] 3. Left upper extremity unilateral venous ultras ound 84203 Technique/Procedure: Patient was brought into the operating rooma and perpped and draped in the usual sterile manner. Left upper extremity venous dupl ex was completed. The forearm cephalic vein course was marked on t he skin and 2 skip incisions were made and carried down with sharp dissection the vein was dissected free circumferentially to the wri st and all branches were ligated and transected and the vein was transected at the wrist and mobiliz ed, flushed and marked on its anterior surface. A seperate incision was made over the radial artery and it was controlled proximally and distally with vessel loops and branches were clipped and ligated. The vein was transposed through thr ough a superficial tunnel latterally to the radial artery. Patient was hep arinized with 3000 Units of heparin and arteriotomy was made and vein spatulated and end to side anastamosis was completed with a 6-0 pro ryder stitch in a running fashion and flusched before completion. Hemostasis was m aintained. ALl incision was were copiously irrigated and the subcutaneous layer w as closed with a running 3-0 pprolene stitch and the skin was closed with a runnin 4-0 monocryl stitc h in a subcuticular fashion. At this time an incision was made overlyng the e ntrance point of the tunneled peritoneal dialysis catheter into the abdomen be low the umbilicus and carried down with elctrocautery and the cathetrer was grasped and the cuff was released from the fascia and pre-peritoneal space. The ca theter was removed and the fascia was closed with running 0 vicryl stitich. The remaining catheter was removed with blunt and sharp dissection through the tunnel and the seconf cuff was released and catheter removed tfrom the field. The supraumbilical incision was irrigated and closed with 3-0 vicryl in the subcutaneous layer and 4-0 monoctyl in running subcuticular fahion in the s kin. The patient tolerated the pr ocedure well. there wer no coplcations. The patient was stable on discharge to the PACU. Primary Surgeon: Dr. Az Francois Overhead Crane Operator(s): none Anesthesia: general anesthesia Operative findings: Complete excision of intact peritoneal dialysis catheter. Vessel Diameter Forearm Cephalic vein 3.4 mm Basilic vein 3.2 mm Radial artery 2.8 mm Arm Cephalic vein occluded Basilic vein 5.0 mm Brachial artery 4.0 mm Good thrill in avf on completion. Complications: none Estimated blood loss in ml's: 30 cc Specimens removed/altered: peritoeal dialysis ca theter Implant(s): none at [address] [facility] #:[id number] END OF REPORT 2021-12-10 07:52:00-00:00 [facility] ([facility]) Brief Op Note REPORT#:[id number] REPORT STATUS: Signed DATE:12/10/21 TIME: 751 PATIENT: PAOLA MISHRA UNIT #: [id number] ROOM/BED: : 57 AGE: 66 SEX: F ATTEND: Yeimi Francois MD ADM AUTHOR: Az Francois MD * ALL edits or amendments must be made on the [employer] document * Op/Inv Proc Note - Brief ORM Surgeries: Surgery Date and Time: 12/10/2021 0730 Proposed Primary Procedure: REMOVAL OF PD LINDA TER Proposed Secondary Procedure: LEFT UPPER EXTREM ITY ARTERIOVENOUS Pre-procedure diagnosis: end stage renal disease Malfunction of peritoneal dialysis catheter Post-procedure diagnosis: same as pre procedure dx Procedures performed: s1. Creation of left forearm arteriovenous radio cephalic fistula with transposition 37073 2. Removal of tunneled peritoneal dialysis [place] [address] 3. Left upper extremity unilateral venous ultras ound 09833 Primary Surgeon: Dr. Az Francois Overhead Crane Operator(s): none Anesthesia: general anesthesia Findings: Complete excision of intact peritoneal dialysis catheter. Vessel Diameter Forearm Cephalic vein 3.4 mm Basilic vein 3.2 mm Radial artery 2.8 mm Arm Cephalic vein occluded Basilic vein 5.0 mm Brachial artery 4.0 mm Good thrill in avf on completion. Complications: none Estimated blood loss in ml's: 30 cc Specimens removed/altered: peritoneal dialysis c atheter at [address] [facility] #:[id number] END OF REPORT 2021-12-10 07:43:00-00:00 [facility] ([facility]) Brief Discharge Note w/Med Rec REPORT#:[id number] REPORT STATUS: Signed DATE:12/10/21 TIME: 742 PATIENT: PAOLA MISHRA UNIT #: [id number] ROOM/BED: : 57 AGE: 66 SEX: F ATTEND: Yeimi Francois MD ADM AUTHOR: Az Francois MD * ALL edits or amendments must be made on the [employer] document * Med Rec Med Rec Discharge meds: Continue taking these medications: predniSONE (predniSONE) 5 MG TAB 5 MILLIGRAM ORAL DAILY. MECLIZINE (ANTIVERT) 25 MG TAB 25 MILLIGRAM ORAL TWICE DAILY NEEDED. as nee ded for VERTIGO/DIZZINESS FUROSEMIDE (LASIX) 40 MG TAB 40 MILLIGRAM ORAL TWICE DAILY. FLUCONAZOLE (DIFLUCAN) 200 MG TAB 200 MILLIGRAM ORAL DAILY. Insulin Degludec (TRESIBA FLEXTOUCH U-100 (3mL)) 100 UNIT/ML PEN.INJCTR 25 UNITS SUBCUTANEOUS DAILY. LACTULOSE (LACTULOSE 10 GM/15 ML) 10 GRAM/15 ML SYRUP 15 MILLILITERS ORAL DAILY. as needed for CONST IPATION SIMVASTATIN (ZOCOR) 20 MG TAB 20 MILLIGRAM ORAL DAILY. amLODIPine (NORVASC) 10 MG TAB 10 MILLIGRAM ORAL DAILY. EPOETIN FADIA (PROCRIT) 10,000 UNIT/ML VIAL 10,000 UNITS SUBCUTANEOUS EVERY 7 DAYS. TACROLIMUS (PROGRAF) 1 MG CAP 1 MILLIGRAM ORAL TWICE DAILY. Objective Results Findings/Data: Laboratory Tests: 12/10 12/10 12/10 0716 0624 0620 Chemistry Sodium (134 - 147 mEq/L) 135 Potassium (3.4 - 5.0 mEq/L) 5.7 H Chloride (100 - 108 mEq/L) 104 Carbon Dioxide (21 - 33 mEq/l) 27 Anion Gap (0 - 20) 10 BUN (7 - 18 mg/dL) 41 H Creatinine (0.6 - 1.3 mg/dL) 3.1 H Glomerular Filtr Rate (80 - 90) 15.1 L Glucose (70 - 110 mg/dL) 66 L POC Glucose (70 - 110 MG/DL) 105 66 L Calcium (8.0 - 10.5 mg/dL) 8.9 Hematology WBC (4.5 - 11.0 x10 3/uL) 4.8 RBC (3.54 - 5.02 x10 6/uL) 3.55 Hgb (11.0 - 15.0 g/dL) 9.8 L Hct (33.0 - 45.0 %) 32.3 L MCV (81.0 - 99.0 fL) 91.0 MCH (27.0 - 33.0 pg) 27.6 MCHC (33.0 - 37.0 g/dL) 30.3 L RDW (11.5 - 14.5 %) 16.5 H Plt Count (150 - 400 x10 3/uL) 286 MPV (7.0 - 9.0 fL) 9.6 H Neut % (Auto) (56.0 - 77.0 %) 62.7 Lymph % (Auto) (14.0 - 32.0 %) 25.8 [place] % (Auto) (4.8 - 9.0 %) 9.0 Eos % (Auto) (0.3 - 3.7 %) 1.7 Baso % (Auto) (0.0 - 2.0 %) 0.6 Neut # (Auto) (2.0 - 7.6 x10 3/uL) 3.01 Lymph # (Auto) (1.0 - 3.8 x10 3/uL) 1.24 [place] # (Auto) (0.1 - 0.8 x10 3/uL) 0.43 Eos # (Auto) (0.0 - 0.2 x10 3/uL) 0.08 Baso # (Auto) (0.0 - 0.2 x10 3/uL) 0.03 Abs Immat Gran (auto) (0.00 - 0.03 x10 3/uL) 0. 01 Add Manual Diff NO Immature Gran % (0.0 - 2.0 %) 0.2 Nucleated RBC % (0 - 0 %) 0.0 Nucleated RBCs # (Man) (0.0 - 0.1 x10 3/uL) 0.0 0 VS/I O Last Documented: Result Date Time Pulse Ox 100 12/08 842 B/P 166/77 12/08 842 Temp 96.0 12/08 842 Pulse 70 12/08 842 Resp 18 12/08 842 Brief Discharge Note w/Med Rec Discharge to: Home/Self Care Pt. condition on discharge: stable Additional Discharge Routines: Attending Follow- Up, Wound/Dressing Care Diet: Resume Home Diet/Feeds Activity: No Strenuous Activity Wound/dressing care: Change dressing daily, Do not submerge incision, Keep wound clean and dry Follow-up Appointments Attending Physician: Attending Physician: Az Francois MD Attending physician follow up timeframe: In 1-2 weeks at 0743 RPT #:[id number] END OF REPORT 2021-12-08 08:34:00-00:00 [id number] [address] PATIENT NAME: PAOLA MISHRA ADMIT DATE: ACCOUNT NO: [id number] ROOM NO: AGE: 66 REPORT TYPE: eELECTROCARDIOGRAM REPORT SEX: F ADMITTING PHYSICIAN: ATTENDING PHYSICIAN:Az Francois MD Order: [id number] Test Reason : PREOP Test Date/Time Stamp: TueDec 08 2021 08:34:41 Blood Pressure : / mmHG Vent. Rate : 071 BPM Atrial Rate : 071 BPM P-R Int : 136 ms QRS Dur : 066 ms QT Int : 424 ms P-R-T Axes : 049 021 063 degree s QTc Int : 460 ms Normal sinus rhythm Normal ECG PRE_OP Confirmed by SHAAN HICKS MD ([id number]) on 12/09/19 9:27:40 AM Referred By: No Physician Confirmed by:SHAAN ARRIAGA MD at 0927 PATIENT NAME: PAOLA MISHRA ACCOUNT #: [id number]
[2022-12-14 17:10] LABS: Protime INR 1.05
--- NOTE | 2022-12-14 17:11 | RAD REPORT ---
EXAM DESCRIPTION: RAD - Chest Single View - 12/14/2022 5:02 pm CLINICAL HISTORY: general weakness Chest pain. COMPARISON: <Comparisons> FINDINGS: Portable technique limits examination quality. The lungs are grossly clear. The heart is normal in size. No displaced fractures. IMPRESSION: No acute intrathoracic process suspected.
--- NOTE | 2022-12-14 17:19 | RAD REPORT ---
EXAM DESCRIPTION: CT - Head Brain Wo Cont - 12/14/2022 5:09 pm CLINICAL HISTORY: WEAKNESS Headache, drowsiness COMPARISON: <Comparisons> TECHNIQUE: All CT scans are performed using dose optimization technique as appropriate and may inclu de automated exposure control or mA/KV adjustment according to patient size. FINDINGS: No intracranial hemorrhage, hydrocephalus or extra-axial fluid collection.No areas of brai n edema or evidence of midline shift. Mild vertebral atherosclerosis bilaterally. The paranasal sinuses and mastoids are clear. The calvarium is intact. IMPRESSION: No acute intracranial abnormality.
[2022-12-14 17:29] LABS: Albumin 3.7 g/dL (3.4-5.0); Bilirubin Direct 0.2 mg/dL (0-0.2); Bilirubin Indirect, Calculated 0.4 mg/dL (0.2-0.8); Bilirubin Total 0.6 mg/dL (0.2-1.0); Magnesium 2.2 mg/dL (1.6-2.4); Potassium 3.5 mEq/L (3.5-5.1); Protein, Total 9.5 g/dL (6.4-8.2)
[2022-12-14 17:30] LABS: Troponin High Sensitivity 118.6 pg/mL (<58.9)
[2022-12-14 17:34] LABS: Absolute Lymphocytes (CBC) 0.6 K/uL (0.7-4.9)
[2022-12-14 17:42] LABS: Hematocrit 33.3 % (36.0-45.0); Lymphocytes % 11.6 % (15.3-44.8); MCV 92.6 fL (80-100); MPV 8.3 fL (7.6-11.3)
[2022-12-14] MEDS ORDERED: ASPIRIN 81 MG CHEWABLE TABLET ONE (18:10)
[2022-12-14 18:20] LABS: Blood Morphology Comment NOT SEEN (NOT SEEN); Platelet Estimate ADEQ; White Blood Cell Scan OK (OK)
--- NOTE | 2022-12-14 19:41 | ER ---
Nurse's Notes [facility] Name: Paola Mishra Age: 67 yrs Sex: Female : 1955 Arrival Date: 12/14/2022 Time: 16:17 Bed 5 Private MD: Karli Grijalva Diagnosis: Weakness Presentation: 12/14 16:36 Chief complaint: Chief complaint: Patient states: Malaise, weakness and nausea since iw yesterday. Pt had dialysis today, normally has it MWF but needed fistula to be unclogged, which happened yesterday. 16:39 Coronavirus screen: Vaccine status: Patient reports receiving the 2nd dose of the covid iw vaccine. Ebola Screen: Patient denies travel to an Ebola-affected area in the 21 days before illness onset. Initial Sepsis Screen: Does the patient meet any 2 criteria? HR > 90 bpm. No. Patient's initial sepsis screen is negative. Does the patient have a suspected source of infection? No. Patient's initial sepsis screen is negative. Risk Assessment: Do you want to hurt yourself or someone else? Patient reports no desire to harm self or others. Onset of symptoms was December 13, 2022. 16:39 Method Of Arrival: Ambulatory iw 16:39 Acuity: NOHELIA 2 iw Historical: - Allergies: 16:44 NKDA; iw - PMHx: 16:44 Diabetes - IDDM; ESRD; fungal meningitis; Hyperlipidemia; Hypertension; kidney iw transplant; - Immunization history:: Client reports receiving the 2nd dose of the Covid vaccine. - Social history:: Smoking status: Patient denies any tobacco usage or history of. Screenin:59 Abuse screen: Denies threats or abuse. Nutritional screening: No deficits noted. ap3 Tuberculosis screening: No symptoms or risk factors identified. 22:23 [facility] ED Fall Risk Assessment (Adult) History of falling in the last 3 months, kl including since admission No falls in past 3 months (0 pts) Confusion or Disorientation No (0 pts) Intoxicated or Sedated No (0 pts) Impaired Gait No (0 pts) Mobility Assist Device Used No (0 pt) Altered Elimination No (0 pt) Score/Fall Risk Level 0 - 2 = Low Risk Oriented to surroundings, Maintained a safe environment. Assessment: 16:58 General: Appears ill, Behavior is calm, cooperative. Neuro: Level of Consciousness is ap3 awake, alert, obeys commands, Oriented to person, place, time, Reports weakness. Cardiovascular: Patient's skin is warm and dry. Cardiovascular: Dialysis shunt: in the left arm. Respiratory: Airway is patent Respiratory effort is even, unlabored. 19:54 Reassessment: No changes from previously documented assessment. Patient and/or family ll3 updated on plan of care and expected duration. Pain level reassessed. Patient is alert, oriented x 3, equal unlabored respirations, skin warm/dry/pink. 22:24 Reassessment: Patient appears in no apparent distress at this time. Patient and/or kl family updated on plan of care and expected duration. Pain level reassessed. Patient is alert, oriented x 3, equal unlabored respirations, skin warm/dry/pink. Vital Signs: 16:39 BP 167 / 74; Pulse 92; Resp 18; Temp 98(O); Pulse Ox 100% ; Weight 62.14 kg; Height 5 iw ft. 1 in. ; 17:25 BP 161 / 67; Pulse 88; Pulse Ox 100% on R/A; ap3 19:54 BP 136 / 69; Pulse 84; Resp 17; Pulse Ox 98% on R/A; ll3 21:00 BP 131 / 65; Pulse 81; Resp 16; Pulse Ox 98% on R/A; ll3 22:23 BP 114 / 59; Pulse 68; Resp 18; Temp 98(TE); Pulse Ox 97% on R/A; kl 16:39 Body Mass Index 25.89 (62.14 kg, 154.94 cm) iw ED Course: 16:18 Patient arrived in ED. am2 16:18 Karli Grijalva is Private Physician. am2 16:19 [facility]. cp 16:19 Tyler Guillory MD is Attending Physician. cp 16:44 Triage completed. iw 16:45 Arm band placed on. iw 16:57 Rosa M Early, BO is Primary Nurse. ap3 16:57 Initial lab(s) drawn, by me, sent to lab. Missed attempt(s): 22 gauge in right ap3 antecubital area. 16:59 Patient has correct armband on for positive identification. Bed in low position. Call ap3 light in reach. Side rails up X2. Adult w/ patient. monitoring tech on. Pulse ox on. NIBP on. Door closed. Noise minimized. Warm blanket given. 17:03 XRAY Chest (1 view) In Process Unspecified. EDMS 17:11 CT Head Brain wo Cont In Process Unspecified. EDMS 18:25 by me, sent to lab. First set of blood cultures drawn by me. Inserted saline lock: 22 iw gauge in left antecubital area, using aseptic technique. Blood collected. 19:40 Fito Bernal MD is Hospitalizing Provider. cp 22:23 No provider procedures requiring assistance completed. Patient admitted, IV remains in kl place. Administered Medications: 18:07 Drug: Aspirin PO Chewable Tablet 324 mg Route: PO; ap3 19:55 Follow up: Response: No adverse reaction ll3 Medication: 16:59 VIS not applicable for this client. ap3 Outcome: 19:40 Decision to Hospitalize by Provider. cp 22:22 Admitted to Med/surg via stretcher, room 217, Report called to Sharon thompson 22:22 Condition: improved 22:22 Discharge instructions given to patient, family, Instructed on the need for admit. 22:30 Patient left the ED. Signatures: Dispatcher [employer] EDNellie Farah RN RN Luisa Arredondo, RN RN iw Juan Paz PA PA cp Rosa M Holloway am2 Rosa M aErly, RN RN ap3 Arlette Mcneill RN RN ll3 Corrections: (The following items were deleted from the chart) 16:44 16:36 Chief complaint: iw iw 16:45 16:44 PMHx: Hypothyroidism; iw iw
--- NOTE | 2022-12-14 19:41 | EDPHYS ---
Physician Documentation [facility] Name: Paola Mishra Age: 67 yrs Sex: Female : 1955 Arrival Date: 12/14/2022 Time: 16:17 Bed 5 Private MD: Karli Grijalva ED Physician Tyler Guillory HPI: 12/14 16:40 This 67 yrs old Female presents to ER via Ambulatory with complaints of cp General Weakness - after dialysis. 16:40 The patient's problem is reported as weakness, that is generalized. cp 16:40 Onset: The symptoms/episode began/occurred yesterday. Duration: The episode is cp continuous. Associated signs and symptoms: Pertinent positives: nausea, Pertinent negatives: abdominal pain, chest pain, diarrhea, vomiting. Severity of symptoms: in the emergency department the symptoms are unchanged despite home interventions. Patient's baseline: Neuro: alert and fully oriented, Motor: no deficits, Ambulation: walks without assistance, Speech: normal. who is translating reports patient completed dialysis earlier today but missed dialysis last week until fistula was "cleaned out yesterday". Patient with increasing weakness, nausea since yesterday. No fever measured. Historical: - Allergies: 16:44 NKDA; iw - PMHx: 16:44 Diabetes - IDDM; ESRD; fungal meningitis; Hyperlipidemia; Hypertension; kidney iw transplant; - Immunization history:: Client reports receiving the 2nd dose of the Covid vaccine. - Social history:: Smoking status: Patient denies any tobacco usage or history of. ROS: 16:45 Constitutional: Negative for body aches, chills, fever, poor PO intake. cp 16:45 Eyes: Negative for injury, pain, redness, and discharge. cp 16:45 ENT: Negative for drainage from ear(s), ear pain, sore throat, difficulty swallowing, difficulty handling secretions. 16:45 Cardiovascular: Negative for chest pain, palpitations. 16:45 Respiratory: Negative for cough, shortness of breath, wheezing. 16:45 Abdomen/GI: Positive for nausea, Negative for abdominal pain, vomiting, diarrhea, constipation. 16:45 Skin: Negative for cellulitis, rash. 16:45 Neuro: Positive for weakness, Negative for altered mental status, dizziness, headache, syncope. 16:45 All other systems are negative. Exam: 16:50 Constitutional: The patient appears in no acute distress, alert, awake, cp non-diaphoretic, non-toxic, well developed, well nourished. 16:50 Head/Face: Normocephalic, atraumatic. cp 16:50 Eyes: Periorbital structures: appear normal, Pupils: equal, round, and reactive to light and accomodation, Extraocular movements: intact throughout, Conjunctiva: normal, no exudate, no injection, Sclera: no appreciated abnormality, Lids and lashes: appear normal, bilaterally. 16:50 ENT: External ear(s): are unremarkable, Nose: is normal, Mouth: Lips: moist, Oral mucosa: pink and intact, moist, Posterior pharynx: is normal, airway is patent, no erythema, no exudate. 16:50 Neck: ROM/movement: is normal, is supple, without pain, no range of motions limitations, no meningismus, no nuchal rigidity. 16:50 Chest/axilla: Inspection: normal. 16:50 Cardiovascular: Rate: normal, Rhythm: regular, Edema: is not appreciated, JVD: is not appreciated. 16:50 Respiratory: the patient does not display signs of respiratory distress, Respirations: normal, no use of accessory muscles, no retractions, labored breathing, is not present, Breath sounds: bronchial sounds, that are mild, are heard diffusely, stridor, is not appreciated, wheezing: is not appreciated. 16:50 Abdomen/GI: Inspection: abdomen appears normal, Bowel sounds: active, all quadrants, Palpation: abdomen is soft and non-tender, in all quadrants. 16:50 Back: pain, is absent, ROM is normal. 16:50 Skin: cellulitis, is not appreciated, no rash present. 16:50 Neuro: Orientation: to person, place \\T\\ time. Mentation: is normal, Cerebellar function: is grossly normal, Motor: moves all fours, general weakness with no focal deficits, Sensation: is normal. 17:00 ECG was reviewed by the Attending Physician. cp Vital Signs: 16:39 BP 167 / 74; Pulse 92; Resp 18; Temp 98(O); Pulse Ox 100% ; Weight 62.14 kg; Height 5 iw ft. 1 in. ; 17:25 BP 161 / 67; Pulse 88; Pulse Ox 100% on R/A; ap3 19:54 BP 136 / 69; Pulse 84; Resp 17; Pulse Ox 98% on R/A; ll3 21:00 BP 131 / 65; Pulse 81; Resp 16; Pulse Ox 98% on R/A; ll3 22:23 BP 114 / 59; Pulse 68; Resp 18; Temp 98(TE); Pulse Ox 97% on R/A; kl 16:39 Body Mass Index 25.89 (62.14 kg, 154.94 cm) iw MDM: 16:21 Patient medically screened. cp 20:15 Data reviewed: vital signs, nurses notes, lab test result(s), EKG, radiologic studies, cp plain films. 20:15 Differential diagnosis: CVA, TIA, metabolic disorder, drug effects. Consideration of cp Admission/Observation Patient was admitted/placed on observation. Management of patient was discussed with the following: Primary Care Provider: DR Bernal. Independent interpretation of the following test(s) in the Emergency Department EKG: See my EKG interpretation above. Care significantly affected by the following chronic conditions: Diabetes, Chronic Kidney Disease. Counseling: I had a detailed discussion with the patient and/or guardian regarding: the historical points, exam findings, and any diagnostic results supporting the discharge/admit diagnosis, lab results, radiology results. Response to treatment: the patient's symptoms have mildly improved after treatment. 12/14 16:32 Order name: Basic Metabolic Panel; Complete Time: 18:28 cp 12/14 17:54 Interpretation: Normal except: NA 134; GLUC 69; BUN 37; CRE 5.82; GFR 8. cp 12/14 16:32 Order name: CBC with Diff; Complete Time: 18:28 cp 12/14 17:54 Interpretation: Normal except: RBC 3.60; HGB 11.0; HCT 33.3; RDW 16.8; HARESH% 78.5; LYM% cp 11.6; LYMA 0.6. 12/14 16:32 Order name: LFT's; Complete Time: 18:28 cp 12/14 17:57 Interpretation: Normal except: TP 9.5; GLOB 5.8; A/G 0.6. cp 12/14 16:32 Order name: Magnesium; Complete Time: 18:28 cp 12/14 16:32 Order name: PT-INR; Complete Time: 17:54 cp 12/14 16:32 Order name: Troponin HS; Complete Time: 18:28 cp 05 17:54 Interpretation: Reviewed. cp 12/14 17:57 Order name: LAB Add On cp 12/14 17:59 Order name: NT PRO-BNP; Complete Time: 18:28 EDMS 12/14 18:29 Interpretation: Abnormal: NT PRO-BNP 14231. cp 12/14 18:04 Order name: Lactate w/ 2H reflex if indic.; Complete Time: 20:11 cp 12/14 18:04 Order name: Blood Culture Adult (2) cp 12/14 18:21 Order name: CBC Smear Scan; Complete Time: 18:28 EDMS 12/14 20:27 Order name: Basic Metabolic Panel EDMS 12/14 20:27 Order name: Basic Metabolic Panel EDMS 12/14 20:27 Order name: CBC with Automated Diff EDMS 12/14 20:27 Order name: CBC with Automated Diff EDMS 12/14 20:27 Order name: Troponin High Sensitivity EDMS 12/14 20:27 Order name: Troponin High Sensitivity EDMS 12/14 20:27 Order name: Troponin High Sensitivity EDMS 12/14 20:27 Order name: Troponin High Sensitivity EDMS 16 16:32 Order name: XRAY Chest (1 view); Complete Time: 17:54 cp 12/14 16:32 Order name: CT Head Brain wo Cont; Complete Time: 17:54 cp 12/14 16:32 Order name: EKG; Complete Time: 16:32 cp 12/14 20:27 Order name: EKG Electrocardiogram EDMS 12/14 20:27 Order name: EKG Electrocardiogram EDMS 12/14 20:27 Order name: EKG Electrocardiogram EDMS 12/14 20:27 Order name: EKG Electrocardiogram EDMS 12/14 20:28 Order name: Renal EDMS 12/14 20:29 Order name: Physical Therapy Consult EDMS 12/14 16:32 Order name: Cardiac monitoring; Complete Time: 16:58 cp 12/14 16:32 Order name: EKG - Nurse/Tech; Complete Time: 16:58 cp 12/14 16:32 Order name: IV Saline Lock; Complete Time: 19:05 cp 12/14 16:32 Order name: Labs collected and sent; Complete Time: 16:58 cp 12/14 16:32 Order name: O2 Per Protocol; Complete Time: 16:33 cp 12/14 16:32 Order name: O2 Sat Monitoring; Complete Time: 16:33 cp EC:00 Rate is 90 beats/min. Rhythm is regular. RI interval is normal. QRS interval is normal. cp QT interval is normal. T waves are Inverted in leads aVL, aVR. Interpreted by me. Reviewed by me. Administered Medications: 18:07 Drug: Aspirin PO Chewable Tablet 324 mg Route: PO; ap3 19:55 Follow up: Response: No adverse reaction ll3 Disposition Summary: 12/14/22 19:40 Hospitalization Ordered Hospitalization Status: Observation cp Provider: Fito Bernal cp Location: Telemetry/MedSurg (observation) cp Condition: Stable cp Problem: new cp Symptoms: have improved cp Bed/Room Type: Standard cp Room Assignment: 217(12/14/22 21:40) Diagnosis - Weakness cp Forms: - Medication Reconciliation Form cp - SBAR form cp Addendum: 12/17/2022 09:06 Co-signature as Attending Physician, Tyler Guillory MD I reviewed the patient's care r n provided by the Advanced Practice Provider and agree with the diagnosis and treatment plan. Signatures: Dispatcher [employer] Luisa Dutton RN BO Tyler Guillory MD MD rn Page, Corey, PA PA Neela Nogueira, BO SORIANO Rosa M Early RN RN ap3 Arlette Mcneill RN ll3 Corrections: (The following items were deleted from the chart) 12/14 16:45 16:44 PMHx: Hypothyroidism; [facility] 18:06 17:57 PROBNP+C.LAB.BRZ ordered. EDDE EDMS 21:40 19:40 cp cg
[2022-12-15 04:28] LABS: Absolute Lymphocytes (CBC) 0.7 K/uL (0.7-4.9); Hematocrit 31.3 % (36.0-45.0); Lymphocytes % 17.4 % (15.3-44.8); MCV 93.5 fL (80-100); MPV 8.1 fL (7.6-11.3); RBC Red Blood Cell Count 3.35 M/uL (3.86-4.86)
[2022-12-15 04:54] LABS: Potassium 4.7 mEq/L (3.5-5.1)
[2022-12-15 04:55] LABS: Troponin High Sensitivity 126.5 pg/mL (<58.9)
[2022-12-15] MEDS: ASPIRIN EC 81 MG TAB PO SCH (07:53)
--- NOTE | 2022-12-15 08:08 | P.HP ---
Certification for Inpatient Patient admitted to: Observation With expected LOS: <2 Midnights Patient will require the following post-hospital care: Home Health Services Practitioner: I am a practitioner with admitting privileges, knowledge of patient current condition, hospital course, and medical plan of care. Services: Services provided to patient in accordance with Admission requirements found in Title 42 Section 412.3 of the Code of Federal Regulations Patient History Date of Service: 12/15/22 Primary Care Provider: Rudi Reason for admission: esrd and PEM History of Present Illness: Patient is an office patient of ours with a history of esrd. She did not have dialysis for 3 days last week due to a clogged graft. She had it cleaned and got dialysis yesterday. However the patient was feeling week and had no strength in her legs. She came to the hospital and had a mild troponin elevation. Not very significant in a esrd patient as they do not clear the protein. Need much higher levels to be significant. The patient is feeling week this morning. She normally has MWF HD with Dr. Wolff's group. He has been consulted. Allergies No Known Drug Allergies Allergy (Verified 08/01/20 23:30) Unknown Home Medications: Gabapentin [Neurontin*] 100 mg PO TID 07/04/19 Magnesium Chloride [Slow-Mag*] 64 mg PO DAILY 07/04/19 Omeprazole [Prilosec] 40 mg PO DAILY 07/04/19 Tacrolimus [Prograf] 1 cap PO BID 07/04/19 Calcitriol [Rocaltrol] 1 mcg PO DAILY 06/23/21 Levothyroxine Sodium 25 mcg PO DAILY 06/23/21 Fluconazole [Diflucan] 100 mg PO DAILY 11/12/21 cloNIDine HCL [Clonidine HCl] 0.1 mg PO BID 11/12/21 Atorvastatin Calcium [Lipitor*] 20 mg PO BEDTIME 12/14/22 Cetirizine HCl [Zyrtec] 10 mg PO DAILY PRN 12/14/22 Clopidogrel Bisulfate [Plavix] 75 mg PO DAILY 12/14/22 Insulin Degludec [Tresiba Flextouch U-100] 25 units SQ BREAKFAST 12/14/22 Insulin Lispro [Humalog Kwikpen U-100] 3 units SQ TID PRN 12/14/22 Meclizine HCl 25 mg PO DAILY PRN 05/16/23 - Past Medical/Surgical History Has patient received pneumonia vaccine in the past: Yes Diabetic: Yes -: Kidney transplant -: chronic venous hypertension with ulceraton -: diabetic ulcer toe -: gerd -: hyperlipidemia -: neuropathy chronic kidney disease -: kidney transplant -: -: Toe Amputation -: Fistula Placement -: Chronic venous hypertension with ulceration - Family History Mother -: Stroke, Kidney disease Sister -: Kidney disease - Social History Smoking Status: Never smoker Alcohol use: No CD- Drugs: No Caffeine use: No Review of Systems 10-point ROS is otherwise unremarkable General: Weakness Physical Examination - Vital Signs Temperature: 98.5 F Blood Pressure: 118/58 Pulse: 74 Respirations: 18 Pulse Ox (%): 97 - Physical Exam General: Alert, Mild distress HEENT: Atraumatic, PERRLA, Mucous membr. moist/pink, EOMI, Sclerae nonicteric Neck: Supple, 2+ carotid pulse no bruit, No LAD, Without JVD or thyroid abnormality Respiratory: Clear to auscultation bilaterally, Normal air movement Cardiovascular: Regular rate/rhythm, Normal S1 S2 Gastrointestinal: Normal bowel sounds, No tenderness Musculoskeletal: No tenderness Integumentary: No rashes Neurological: Normal gait, Normal speech, Normal strength at 5/5 x4 extr, Normal tone, Normal affect Lymphatics: No axilla or inguinal lymphadenopathy - Studies Laboratory Data (last 24 hrs) 12/14/22 16:53: PT 11.6, INR 1.05 12/14/22 16:53: WBC 5.10, Hgb 11.0 L, Hct 33.3 L, Plt Count 211 12/14/22 16:53: Sodium 134 L, Potassium 3.5, BUN 37 H, Creatinine 5.82 H, Glucose 69 L, Magnesium 2.2, Total Bilirubin 0.6, AST 24, ALT 23, Alkaline Phosphatase 113 Assessment and Plan - Problems (Diagnosis) (1) ESRD (end stage renal disease) Current Visit: No Status: Chronic Plan: consult Dr Raymundo to manage the HD (2) Unspecified protein-calorie malnutrition Current Visit: Yes Status: Acute Plan: will have PT access the patient Qualifiers: Protein-calorie malnutrition severity: moderate Qualified Code(s): E44.0 - Moderate protein-calorie malnutrition (3) Elevated troponin Current Visit: No Status: Acute Plan: Not a significant elevation. She is not reporting chest pain. will hold off on a cardiology consult (4) Diabetes Current Visit: No Status: Chronic Plan: continue home meds and add sliding scale Qualifiers: Diabetes mellitus type: type 2 Diabetes mellitus jail insulin use: unspecified colorist formulator insulin use status Chronic kidney disease stage: on chronic dialysis (5) Hypertension Current Visit: No Status: Chronic Plan: continue home meds. Adjust as needed Qualifiers: Hypertension type: primary hypertension (6) Hypothyroidism Current Visit: No Status: Chronic Plan: restart her home meds Qualifiers: Hypothyroidism type: unspecified Qualified Code(s): E03.9 - Hypothyroidism, unspecified - Advance Directives Does patient have a Living Will: No Does patient have a Durable POA for Healthcare: No - Code Status/Comfort Care Code Status Assessed: Yes Code Status: Full Code Physician Review: Patient Assessed, Agree with Above Assessment and Plan Critical Care: No Time Spent Managing Pts Care (In Minutes): 40
[2022-12-15] MEDS ORDERED: CETIRIZINE HCL 5 MG TABLET PO PRN (08:12)
[2022-12-15] MEDS ORDERED: MECLIZINE HCL 12.5 MG TAB PO PRN (08:12)
[2022-12-15] MEDS ORDERED: HOME MED 1 EA UNK (Omeprazole [Prilosec] 40 MG Capsule.Dr) PO SCH (09:00)
[2022-12-15] MEDS: CALCITROL 0.25 MCG CAP PO SCH (09:19)
[2022-12-15] MEDS: PANTOPRAZOLE 40MG TABLET PO SCH (09:19)
[2022-12-15] MEDS: CLOPIDOGREL 75 MG TABLET PO SCH (09:19)
[2022-12-15] MEDS: GABAPENTIN 100 MG CAP PO SCH ×3 (09:19→20:19)
[2022-12-15] MEDS: MAGNESIUM CHLORIDE 64 MG TAB PO SCH (09:19)
[2022-12-15] MEDS: LEVOTHYROXINE SOD 0.025 MG TAB PO SCH (09:25)
--- NOTE | 2022-12-15 11:46 | EKG ---
Test Date: 2022-12-14 Test Time: 16:54:38 Plant Floor Automation Manager: CHARLOTTE MEASUREMENT RESULTS: Intervals: Rate: 90 AR: 126 QRSD: 76 QT: 384 QTc: 469 [place]: P: 56 AR: 126 QRS: 43 T: 78 INTERPRETIVE STATEMENTS: Normal sinus rhythm Normal ECG Compared to ECG 05/23/2022 19:58:33 No significant changes Electronically Signed On 12-15-22 11:44:43 CDT by Kingston Davey
--- NOTE | 2022-12-15 12:15 | P.CNS ---
Date of Consult: 12/15/22 Reason for Consult: ESRD, need for dialysis Requesting Physician: Fito Bernal Primary Care Provider: Rudi Chief Complaint: esrd and PEM History of Present Illness: Patient is a 67 yo , Estonian speaking female with a hx of ESRD with prior failed renal transplant, previously on PD, now on in center HD at [facility] on a MWF basis via Lt UE AVG for which she had a graftogram Mon and had a make up treatment yesterday. She received partial treatment and then came off early for unclear reasons but came in to the ER afterwards complaining of feeling weak and with possible sub-sternal CP, non radiating. She denies any further CP, she acknowledges some chest pain intermittently at home. She does have [place]. She did have positive troponins on admission but the leak was mild and flat. Allergies No Known Drug Allergies Allergy (Verified 08/01/20 23:30) Unknown Home Medications: Gabapentin [Neurontin*] 100 mg PO TID 07/04/19 Magnesium Chloride [Slow-Mag*] 64 mg PO DAILY 07/04/19 Omeprazole [Prilosec] 40 mg PO DAILY 07/04/19 Tacrolimus [Prograf] 1 cap PO BID 07/04/19 Calcitriol [Rocaltrol] 1 mcg PO DAILY 06/23/21 Levothyroxine Sodium 25 mcg PO DAILY 06/23/21 Fluconazole [Diflucan] 100 mg PO DAILY 11/12/21 cloNIDine HCL [Clonidine HCl] 0.1 mg PO BID 11/12/21 Atorvastatin Calcium [Lipitor*] 20 mg PO BEDTIME 12/14/22 Cetirizine HCl [Zyrtec] 10 mg PO DAILY PRN 12/14/22 Clopidogrel Bisulfate [Plavix] 75 mg PO DAILY 12/14/22 Insulin Degludec [Tresiba Flextouch U-100] 25 units SQ BREAKFAST 12/14/22 Insulin Lispro [Humalog Kwikpen U-100] 3 units SQ TID PRN 12/14/22 Meclizine HCl 25 mg PO DAILY PRN 12/14/22 - Past Medical/Surgical History Diabetic: Yes -: Kidney transplant -: chronic venous hypertension with ulceraton -: diabetic ulcer toe -: gerd -: hyperlipidemia -: neuropathy chronic kidney disease -: kidney transplant -: -: Toe Amputation -: Fistula Placement -: Chronic venous hypertension with ulceration - Family History Mother Medical History: Stroke, Kidney disease Sister Medical History: Kidney disease - Social History Smoking Status: Unknown if ever smoked Alcohol use: No CD- Drugs: No Caffeine use: No Review of Systems General: Weakness Eyes: Unremarkable ENT: Unremarkable Respiratory: Shortness of Breath Cardiovascular: Chest Pain, As per HPI Gastrointestinal: Unremarkable Genitourinary: Unremarkable Musculoskeletal: Unremarkable Integumentary: Unremarkable Neurological: Unremarkable Lymphatics: Unremarkable Physical Examination Temp Pulse Resp BP Pulse Ox 98.5 F 74 18 118/58 L 97 12/15/22 08:09 12/15/22 08:09 12/15/22 08:09 12/15/22 08:09 12/15/22 08:09 General: Alert, In no apparent distress, Oriented x3 HEENT: Atraumatic, Normocephalic Neck: Supple Respiratory: Clear to auscultation bilaterally, Normal air movement Cardiovascular: Regular rate/rhythm, Normal S1 S2 Gastrointestinal: Soft and benign, Non-distended, No tenderness, No rebound, No guarding Musculoskeletal: No swelling, No contractures Integumentary: No significant lesion, No warmth Neurological: Normal speech, Normal tone, Normal affect Laboratory Data (last 24 hrs) 12/14/22 16:53: PT 11.6, INR 1.05 12/14/22 16:53: WBC 5.10, Hgb 11.0 L, Hct 33.3 L, Plt Count 211 12/14/22 16:53: Sodium 134 L, Potassium 3.5, BUN 37 H, Creatinine 5.82 H, Glucose 69 L, Magnesium 2.2, Total Bilirubin 0.6, AST 24, ALT 23, Alkaline Phosphatase 113 Conclusions/Impression: A/P) 1. ESRD with atrophic [place] Lt kidney, absent Rt kidney, hx of failed renal transplant. On PD at one point but now on iHD at [facility]. 2. Last OP HD was yesterday, received partial treatment, due to staffing issues, will postpone next treatment until tmrw. 3. Metab profile and volume status stable. 4. Lt UE AVG with thrill and bruit, sutures present from recent graftogram, will request report, no issues reported on HD yesterday 5. NSTEMI, troponin leak flat. Some recent CP, if pt has not had a cardiac eval prev or recently, recommend consulting Cardiology 6. Chronic HTN -monitor BP range, target BP < 140/90 Jason Hannon MD, CHRISTA
[2022-12-15] MEDS ORDERED: ENOXAPARIN 30 MG/0.3 ML SQ SCH (17:00)
[2022-12-15] MEDS ORDERED: ATORVASTATIN 20 MG TAB PO SCH (21:00)
[2022-12-16 00:01] VITALS: O2SAT 96
[2022-12-16 01:15] VITALS: BMI 25.7
[2022-12-16] MEDS: LEVOTHYROXINE SOD 0.025 MG TAB PO SCH (06:02)
[2022-12-16 06:30] LABS: Thyroid Stimulating Hormone 5.91 uIU/mL (0.358-3.740)
--- NOTE | 2022-12-16 07:15 | ECHO ---
HEIGHT: 5 ft 1 in WEIGHT: 136 lb 0 oz DATE OF STUDY: 12/15/[address]: Kingston Davey MD 2-DIMENSIONAL: YES M.MODE: YES DOPPLER: YES COLOR FLOW: YES TDS: YES PORTABLE: YES DEFINITY: NO BUBBLE STUDY: NO DIAGNOSIS: ABNORMAL TROPONIN CARDIAC HISTORY: CATHERIZATION: SURGERY: PROSTHETIC VALVE: PACEMAKER: MEASUREMENTS (cm) DIASTOLIC (NORMALS) SYSTOLIC (NORMALS) IVSd 0.8 (0.6-1.2) LA Diam 2.7 (1.9-4.0) LVEF 58% LVIDd 2.5 (3.5-5.7) LVIDs 1.8 (2.0-3.5) %FS 29% LVPWd 0.8 (0.6-1.2) Ao Diam 2.6 (2.0-3.7) 2 DIMENSIONAL ASSESSMENT: RIGHT ATRIUM: NORMAL LEFT ATRIUM: ENLARGED RIGHT VENTRICLE: NORMAL LEFT VENTRICLE: NORMAL TRICUSPID VALVE: MILD TR MITRAL VALVE: MODERATE MAC PULMONIC VALVE: NORMAL AORTIC VALVE: NORMAL PERICARDIAL EFFUSION: NONE AORTIC ROOT: NORMAL LEFT VENTRICULAR WALL MOTION: NORMAL DOPPLER/COLOR FLOW: SEE BELOW COMMENTS: 1. NORMAL LEFT VENTRICULAR EJECTION FRACTION 60-65%. 2. NORMAL WALL MOTION. 3. LEFT ATRIAL ENLARGEMENT. 4. MODERATE MITRAL ANNULAR CALCIFICATION WITH MILD MITRAL STENOSIS. 5. DIASTOLIC DYSFUNCTION. TECHNOLOGIST: Dirk TOMLINSON
[2022-12-16] MEDS ORDERED: HOME MED 1 EA UNK (Insulin Degludec [Tresiba Flextouch U-100] 100 UNIT/ML Insuln.Pen) SQ SCH (08:00)
--- NOTE | 2022-12-16 08:49 | P.DS ---
Admission Date: 12/14/22 Discharge Date: 12/16/22 Primary Care Provider: Rudi Disposition: ROUTINE DISCHARGE Discharge Condition: GOOD Reason for Admission: esrd and PEM - Problems (1) ESRD (end stage renal disease) Current Visit: No Status: Chronic (2) Unspecified protein-calorie malnutrition Current Visit: Yes Status: Acute Qualifiers: Protein-calorie malnutrition severity: moderate Qualified Code(s): E44.0 - Moderate protein-calorie malnutrition (3) Elevated troponin Current Visit: No Status: Acute (4) Diabetes Current Visit: No Status: Chronic Qualifiers: Diabetes mellitus type: type 2 Diabetes mellitus mcc insulin use: unspecified mcc insulin use status Chronic kidney disease stage: on chronic dialysis (5) Hypertension Current Visit: No Status: Chronic Qualifiers: Hypertension type: primary hypertension (6) Hypothyroidism Current Visit: No Status: Chronic Qualifiers: Hypothyroidism type: unspecified Qualified Code(s): E03.9 - Hypothyroidism, unspecified Brief History of Present Illness: Patient is an office patient of ours with a history of esrd. She did not have dialysis for 3 days last week due to a clogged graft. She had it cleaned and got dialysis yesterday. However the patient was feeling week and had no strength in her legs. She came to the hospital and had a mild troponin elevation. Not very significant in a esrd patient as they do not clear the protein. Need much higher levels to be significant. The patient is feeling week this morning. She normally has MWF HD with Dr. Wolff's group. He has been consulted. Hospital Course: Patient admitted for chest pain. She was seen by Dr. Davey. no need for stress test now . Possible have one before her renal transplant Vital Signs/Physical Exam: Temp Pulse Resp BP Pulse Ox 97.6 F 76 17 128/55 L 96 12/16/22 04:00 12/16/22 04:00 12/16/22 04:00 12/16/22 04:00 12/16/22 04:00 General: Alert, In no apparent distress HEENT: Atraumatic, PERRLA, EOMI Neck: Supple, JVD not distended Respiratory: Clear to auscultation bilaterally, Normal air movement Cardiovascular: Regular rate/rhythm, Normal S1 S2 Gastrointestinal: Normal bowel sounds, No tenderness Musculoskeletal: No tenderness Integumentary: No rashes Neurological: Normal speech, Normal tone, Normal affect Lymphatics: No axilla or inguinal lymphadenopathy Laboratory Data at Discharge: WBC 4.20 thou/uL (4.3-10.9) L 12/15/22 03:59 Hgb 10.4 g/dL (12.0-15.0) L 12/15/22 03:59 Hct 31.3 % (36.0-45.0) L 12/15/22 03:59 Plt Count 211 thou/uL (152-406) 12/15/22 03:59 PT 11.6 SECONDS (9.5-12.5) 12/14/22 16:53 INR 1.05 12/14/22 16:53 Sodium 135 mEq/L (136-145) L 12/15/22 03:59 Potassium 4.7 mEq/L (3.5-5.1) D 12/15/22 03:59 BUN 48 mg/dL (7-18) H 12/15/22 03:59 Creatinine 7.67 mg/dL (0.55-1.02) H 12/15/22 03:59 Glucose 77 mg/dL (74-106) 12/15/22 03:59 Magnesium 2.2 mg/dL (1.6-2.4) 12/14/22 16:53 Total Bilirubin 0.6 mg/dL (0.2-1.0) 12/14/22 16:53 AST 24 U/L (15-37) 12/14/22 16:53 ALT 23 U/L (13-56) 12/14/22 16:53 Alkaline Phosphatase 113 U/L (45-117) 12/14/22 16:53 Home Medications: Gabapentin [Neurontin*] 100 mg PO TID 07/04/19 Magnesium Chloride [Slow-Mag*] 64 mg PO DAILY 07/04/19 Omeprazole [Prilosec] 40 mg PO DAILY 07/04/19 Tacrolimus [Prograf] 1 cap PO BID 07/04/19 Calcitriol [Rocaltrol] 1 mcg PO DAILY 06/23/21 Levothyroxine Sodium 25 mcg PO DAILY 06/23/21 Fluconazole [Diflucan] 100 mg PO DAILY 11/12/21 cloNIDine HCL [Clonidine HCl] 0.1 mg PO BID 11/12/21 Atorvastatin Calcium [Lipitor*] 20 mg PO BEDTIME 12/14/22 Cetirizine HCl [Zyrtec] 10 mg PO DAILY PRN 12/14/22 Clopidogrel Bisulfate [Plavix] 75 mg PO DAILY 12/14/22 Insulin Degludec [Tresiba Flextouch U-100] 25 units SQ BREAKFAST 12/14/22 Insulin Lispro [Humalog Kwikpen U-100] 3 units SQ TID PRN 12/14/22 Meclizine HCl 25 mg PO DAILY PRN 12/14/22 Diet: Renal Activity: Ad amirah Followup: Karli Grijalva FNP BC [ALLIED HEALTH PROFESSIONAL] - 1 Week Kingston Davey MD [ACTIVE - CAN ADMIT] - 1-2 Weeks
[2022-12-16] MEDS: MAGNESIUM CHLORIDE 64 MG TAB PO SCH (09:35)
[2022-12-16] MEDS: GABAPENTIN 100 MG CAP PO SCH ×2 (09:35→12:24)
[2022-12-16] MEDS: ASPIRIN EC 81 MG TAB PO SCH (09:36)
[2022-12-16] MEDS: PANTOPRAZOLE 40MG TABLET PO SCH (09:36)
[2022-12-16] MEDS: CALCITROL 0.25 MCG CAP PO SCH (09:36)
[2022-12-16] MEDS: CLOPIDOGREL 75 MG TABLET PO SCH (09:36)
--- NOTE | 2022-12-16 11:22 | P.PN ---
Date of Service: 12/16/22 Vital Signs Temp Pulse Resp BP Pulse Ox 97.1 F 76 12 110/57 L 99 12/16/22 08:00 12/16/22 08:00 12/16/22 08:00 12/16/22 08:00 12/16/22 08:00 Medications Aspirin (Aspirin Ec 81 Mg Tab) 81 mg PO DAILY [facility] Last Admin: 12/16/22 09:36 Dose: 81 mg Atorvastatin Calcium (Atorvastatin 20 Mg Tab) 20 mg PO BEDTIME [facility] Last Admin: 12/15/22 20:19 Dose: 20 mg Calcitriol (Calcitrol 0.25 Mcg Cap) 1 mcg PO DAILY [facility] Last Admin: 12/16/22 09:36 Dose: 1 mcg Cetirizine HCl (Cetirizine Hcl 5 Mg Tablet) 10 mg PO DAILY PRN PRN Reason: ALLERGIES Clopidogrel Bisulfate (Clopidogrel 75 Mg Tablet) 75 mg PO DAILY [facility] Last Admin: 12/16/22 09:36 Dose: 75 mg Enoxaparin Sodium (Enoxaparin 30 Mg/0.3 Ml) 30 mg SQ DAILY 5 PM [facility] Last Admin: 12/15/22 17:33 Dose: 30 mg Gabapentin (Gabapentin 100 Mg Cap) 100 mg PO TID [facility] Last Admin: 12/16/22 09:35 Dose: 100 mg Home Med (Insulin Degludec [Tresiba Flextouch U-100]) 25 units SQ BREAKFAST [facility] Last Admin: 12/16/22 08:00 Dose: Not Given Levothyroxine Sodium (Levothyroxine Sod 0.025 Mg Tab) 0.025 mg PO DAILYAC [facility] Last Admin: 12/16/22 06:02 Dose: 0.025 mg Magnesium Chloride (Magnesium Chloride 64 Mg Tab) 64 mg PO DAILY [facility] Last Admin: 12/16/22 09:35 Dose: 64 mg Meclizine HCl (Meclizine Hcl 12.5 Mg Tab) 25 mg PO DAILY PRN PRN Reason: NAUSEA / VOMITING Pantoprazole Sodium (Pantoprazole 40mg Tablet) 40 mg PO DAILY [facility] Last Admin: 12/16/22 09:36 Dose: 40 mg Sodium Chloride (Flush Normal Saline 10 Ml) 10 ml IV BID [facility] Last Admin: 12/16/22 09:36 Dose: 10 ml Microbiology Results 12/14/22 18:35 Blood - Blood Aerobic Blood Culture - Preliminary No growth in 24 hours. 12/14/22 18:35 Blood - Blood Anaerobic Blood Culture - Preliminary No growth in 24 hours. 12/14/22 18:28 Blood - Blood Aerobic Blood Culture - Preliminary No growth in 24 hours. 12/14/22 18:28 Blood - Blood Anaerobic Blood Culture - Preliminary No growth in 24 hours. Assessment/ Plan: Nephrology No dyspnea No chest pain Feeling better No acute events overnight Vitals, medications, blood work and imaging reviewed in the chart. NAD. NCAT. MMM. Neck supple. Normal respiratory effort. RRR. Abd ND. No C/C. LE Edema none. No rash. AAO. Normal speech. LEFT VENTRICULAR WALL MOTION: NORMAL DOPPLER/COLOR FLOW: SEE BELOW COMMENTS: 1. NORMAL LEFT VENTRICULAR EJECTION FRACTION 60-65%. 2. NORMAL WALL MOTION. 3. LEFT ATRIAL ENLARGEMENT. 4. MODERATE MITRAL ANNULAR CALCIFICATION WITH MILD MITRAL STENOSIS. 5. DIASTOLIC DYSFUNCTION. ESRD on HD -Acute HD today Gross hematuria -Followed by urology as an outpt HTN with CKD/ CHF -Monitor BP DM with CKD & Polyneuropathy -Continue Gabapentin Diastolic CHF, chronic -Low sodium diet -HD with UF Anemia in CKD -Retacrit prn CKD MBD -Continue Calcitriol
[2022-12-16 12:59] VITALS: BP 146/80; TEMP 97.5
[2022-12-16 13:10] LABS: Hepatitis B Surface Ab - Quant 812.73 mIU/mL (<8.0)
--- NOTE | 2022-12-16 14:12 | CON ---
Date of Consultation: 12/15/2022 Reason For Consultation: Elevated troponin. History Of Present Illness: Ms. Mishra is 67. Has had a history of kidney transplant that lasted 1 2 years and failed. She is a candidate for kidney transplant now and looking for a donor. She has e nd-stage renal disease, on hemodialysis, diabetes, hypertension, dyslipidemia. 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 Came in with weakness. No chest pain. Troponin was mildly elevated and we were c onsulted. Denied PND, orthopnea, pedal edema, palpitation, or syncope. Denied fever or chills. EKG is nonspecific. Her echocardiogram showed mild mitral stenosis, ejection fraction 65%, some diastol ic dysfunction. Allergies: NONE. Review of Systems: Negative. Social History: Negative. Family History: Negative. Medications: Include insulin, Synthroid, clonidine, aspirin, Plavix, and Lipitor. Physical Examination: Vital Signs: Stable, afebrile. HEENT: Negative. Neck: Supple with no bruit. Chest: Clear. Cardiac: Revealed mitral stenosis, S4 gallops. Regular rhythm and rate. Abdomen: Benign. Extremities: Revealed no clubbing, cyanosis, or edema. Diagnostic Data: EKG is normal. Chest x-ray is normal. Creatinine is 7. Troponin is 118. Echocar diogram shows no wall motion abnormality. Impression And Plan: I think the patient can go home whenever it is okay with Dr. Bernal and Nephrolo gy. I think an outpatient Lexiscan is reasonable. She will probably to have cardiac clearance prior to her kidney transplant down the road anyway. Case was discussed with her daughter and with Dr. Juancho mathtews. CHRISTINA/CARMINA Voice ID: [id number] Report ID: [id number]
== END 2022-12-16 15:29 | disposition home or self-care (01) | DRG 280 ==
LOC: ER 16:17 → ERHOLD 20:22 → 2ND 21:47 → OBSVTOIN 12-16 11:37
PROVIDERS: ADMIT Internal Medicine; ATTEND Internal Medicine
PROC: 5A1D70Z Performance of Urinary Filtration, Intermittent, Less than 6 Hours Per Day (ICD-10-PCS; principal; 2022-12-15)
DX: I21.4 Non-ST elevation (NSTEMI) myocardial infarction (principal); N18.6 End stage renal disease; Z94.0 Kidney transplant status; I50.32 Chronic diastolic (congestive) heart failure; I13.2 Hypertensive heart and chronic kidney disease with heart failure and with stage 5 chronic kidney disease, or end stage renal disease; E11.22 Type 2 diabetes mellitus with diabetic chronic kidney disease; E11.42 Type 2 diabetes mellitus with diabetic polyneuropathy; D63.1 Anemia in chronic kidney disease; E78.5 Hyperlipidemia, unspecified; E03.9 Hypothyroidism, unspecified; K21.9 Gastro-esophageal reflux disease without esophagitis; R31.0 Gross hematuria; Z79.4 Long term (current) use of insulin; Z99.2 Dependence on renal dialysis; Z68.24 Body mass index [BMI] 24.0-24.9, adult; Z79.02 Long term (current) use of antithrombotics/antiplatelets; Z91.158 Patient's noncompliance with renal dialysis for other reason; Z79.890 Hormone replacement therapy; Z79.899 Other long term (current) drug therapy; Z89.429 Acquired absence of other toe(s), unspecified side
CPT/HCPCS: 36415; 70450; 71045; 80048; 80076; 82947; 83605; 83735; 83880; 84439; 84443; 84484; 85025; 85610; 86706; 87040; 93005; 93306; 97116; 97161; 97530; 99285; G0378; J1644; J1650

== ENCOUNTER → 2023-07-27 | Emergency (ER) | payer OTHER ==
[~2023-07-27] MED LIST: ACETAMINOPHEN 325 MG TABLET ONE; HYDROCODONE/APAP 5/325 MG TAB ONE
--- NOTE | 2023-07-27 14:37 | RAD REPORT ---
EXAM DESCRIPTION: RAD - Knee Left 3 View - 07/27/2023 2:24 pm CLINICAL HISTORY: Pain;Smash injury COMPARISON: No comparisons FINDINGS: Diffuse osteopenia. Linear defect is seen in the patella compatible with a patella fractur e. Small suprapatellar joint effusion. Moderate atherosclerosis.
--- NOTE | 2023-07-27 14:47 | EDPHYS ---
Physician Documentation [facility] Name: Paola Mishra Age: 67 yrs Sex: Female : 1955 Arrival Date: 07/27/2023 Time: 13:51 Bed IW2 Private MD: Karli Grijalva ED Physician Theo Matias HPI: 07/27 14:01 This 67 yrs old Female presents to ER via Unassigned with complaints of knee sb4 pain. 14:02 The patient presents with an injury, pain, that is acute, tenderness. The complaints sb4 affect the left knee. Context: The problem was sustained at home, resulted from the patient falling, the patient can partially bear weight, must have assistance, Problem is a result from a previous injury: No. Onset: The symptoms/episode began/occurred yesterday. Modifying factors: The symptoms are alleviated by remaining still, the symptoms are aggravated by movement, weight bearing, bending knee. Associated signs and symptoms: Pertinent negatives calf tenderness, nausea, swelling. Treatment prior to arrival includes: over the counter medications, Tylenol. The patient has not experienced similar symptoms in the past. Historical: - Allergies: 14:05 NKDA; hb - PMHx: 14:05 Diabetes - IDDM; ESRD; fungal meningitis; Hyperlipidemia; Hypertension; kidney hb transplant; - Immunization history:: Adult Immunizations up to date. - Social history:: Smoking status: Patient denies any tobacco usage or history of. ROS: 14:02 Constitutional: Negative for fever, chills, and weight loss, sb4 14:02 MS/extremity: Positive for injury or acute deformity, pain, tenderness, of the left knee, 14:02 All other systems are negative, Exam: 14:02 Constitutional: This is a well developed, well nourished patient who is awake, alert, sb4 and in no acute distress. Head/Face: Normocephalic, atraumatic. Eyes: Extra-ocular motions intact. Periorbital areas with no swelling, redness, or edema. ENT: Mucous membranes moist. Cardiovascular: Regular rate and rhythm with a normal S1 and S2. Respiratory: Lungs have equal breath sounds bilaterally, clear to auscultation and percussion. No rales, rhonchi or wheezes noted. No increased work of breathing, no retractions or nasal flaring. Abdomen/GI: Soft, non-tender, no distension. Skin: Warm, dry with normal turgor. Normal color with no rashes, no lesions, and no evidence of cellulitis. Neuro: Awake and alert, GCS 15, oriented to person, place, time, and situation. Motor strength 5/5 in all extremities. Sensory grossly intact. 14:02 Musculoskeletal/extremity: ROM: limited active range of motion due to pain, limited passive range of motion due to pain, Circulation is intact in all extremities. Pulses: are normal with no appreciated deficits, Perfusion: the extremity is normally perfused throughout, Calf tenderness, is absent, Edema, is not appreciated, Sensation intact. Joints: the left knee displays tenderness, patellar tenderness. Vital Signs: 13:56 BP 124 / 53; Pulse 70; Resp 16; Temp 98.5; Pulse Ox 100% on R/A; Weight 61.69 kg; hb Height 5 ft. 1 in. ; Pain 8/10; 13:56 Body Mass Index 25.70 (61.69 kg, 154.94 cm) hb 13:56 Pain Scale: Adult hb MDM: 13:56 Patient medically screened. sb4 14:02 Differential diagnosis: dislocation, closed fracture, contusion, tendonitis. sb4 14:44 Data reviewed: vital signs, nurses notes, radiologic studies, I have discussed the sb4 patient's presentation/case with the attending Emergency Department Physician; and as a result, I will discharge patient. Independent interpretation of the following test(s) in the Emergency Department X-Ray: My interpretation is my interpretation of the knee xray images are acute patellar fracture. Historians other than the Patient: Daughter/Son: daughter. Counseling: I had a detailed discussion with the patient and/or guardian regarding the historical points, exam findings, and any diagnostic results supporting the discharge/admit diagnosis, radiology results, the need for outpatient follow up, a orthopedic surgeon, to return to the emergency department if symptoms worsen or persist or if there are any questions or concerns that arise at home. 07/27 14:01 Order name: Knee Left 3 View XRAY; Complete Time: 14:40 sb4 07/27 14:43 Order name: Knee Immobilizer; Complete Time: 15:37 sb4 Administered Medications: 14:17 Drug: HYDROcodone-acetaminophen PO 5 mg-325 mg 1 tabs PO once Route: PO; hb 14:17 Drug: Acetaminophen PO 650 mg PO once Route: PO; hb Disposition Summary: 07/27/23 14:46 Discharge Ordered Notes: Location: Home sb4 Condition: Stable sb4 Diagnosis - Fracture of patella sb4 Followup: sb4 - With: Reg Hernandez MD - When: 2 - 3 days - Reason: Further diagnostic work-up, Recheck today's complaints, Re-evaluation by your physician Followup: sb4 - With: Fortunato Arriaga MD - When: 2 - 3 days - Reason: Further diagnostic work-up, Recheck today's complaints, Re-evaluation by your physician Followup: sb4 - With: Geoffrey Cleary MD - When: 2 - 3 days - Reason: Further diagnostic work-up, Recheck today's complaints, Re-evaluation by your physician Discharge Instructions: - Discharge Summary Sheet sb4 - Patellar Fracture, Adult sb4 Forms: - Medication Reconciliation Form sb4 - Thank You Letter sb4 - Antibiotic Education sb4 - Prescription Opioid Use sb4 - Patient Portal Instructions sb4 - Leadership Thank You Letter sb4 Prescriptions: - Cyclobenzaprine 10 mg Oral Tablet - take 1 tablet ORAL route every 8 hours As needed; 30 tablet; Refills: 0, sb4 Product Selection Permitted Addendum: 07/29/2023 07:11 I was immediately available for consultation during this patient's visit. I did not e c2 personally see the patient or guide the patient's care.. Signatures: Dispatcher [employer] Pinky Hernandez RN RN hb Brown, Sophia, PA-C PA-C sb4 Theo Matias MD MD ec2
--- NOTE | 2023-07-27 14:47 | ER ---
Nurse's Notes [facility] Name: Paola Mishra Age: 67 yrs Sex: Female : 1955 Arrival Date: 07/27/2023 Time: 13:51 Bed IW2 Private MD: Karli Grijalva Diagnosis: Fracture of patella Presentation: 07/27 13:56 Chief complaint: Left knee pain 8/10 after mechanical fall from standing yesterday. hb 13:56 Method Of Arrival: Wheelchair hb 13:56 Coronavirus screen: At this time, the client does not indicate any symptoms associated hb with coronavirus-19. Ebola Screen: No symptoms or risks identified at this time. Initial Sepsis Screen: Does the patient meet any 2 criteria? No. Patient's initial sepsis screen is negative. Does the patient have a suspected source of infection? No. Patient's initial sepsis screen is negative. Risk Assessment: Do you want to hurt yourself or someone else? Patient reports no desire to harm self or others. Onset of symptoms was July 26, 2023. 13:56 Acuity: NOHELIA 4 hb Historical: - Allergies: 14:05 NKDA; hb - PMHx: 14:05 Diabetes - IDDM; ESRD; fungal meningitis; Hyperlipidemia; Hypertension; kidney hb transplant; - Immunization history:: Adult Immunizations up to date. - Social history:: Smoking status: Patient denies any tobacco usage or history of. Vital Signs: 13:56 BP 124 / 53; Pulse 70; Resp 16; Temp 98.5; Pulse Ox 100% on R/A; Weight 61.69 kg; hb Height 5 ft. 1 in. ; Pain 8/10; 13:56 Body Mass Index 25.70 (61.69 kg, 154.94 cm) hb 13:56 Pain Scale: Adult hb ED Course: 13:52 Patient arrived in ED. mr 13:53 Karli Grijalva is Private Physician. mr 13:54 Quin Serrano PA-C is PHCP. sb4 13:54 Theo Matias MD is Attending Physician. sb4 14:05 Triage completed. hb 14:05 Arm band placed on. hb 14:26 Knee Left 3 View XRAY In Process Unspecified. EDMS 14:45 Reg Hernandez MD is Referral Physician. sb4 14:45 Fortunato Arriaga MD is Referral Physician. sb4 14:46 Geoffrey Cleary MD is Referral Physician. sb4 Administered Medications: 14:17 Drug: HYDROcodone-acetaminophen PO 5 mg-325 mg 1 tabs PO once Route: PO; hb 14:17 Drug: Acetaminophen PO 650 mg PO once Route: PO; hb Outcome: 14:46 Discharge ordered by MD. sb4 15:37 Patient left the ED. hb Signatures: Dispatcher [employer] EDMI TitusYady, Reg Reg mr Pinky Galarza, RN RN Quin Lara, PA-C PA-C sb4 Corrections: (The following items were deleted from the chart) 14:06 13:56 BP 124 / 53; Pulse 70bpm; Resp 16bpm; Pulse Ox 100% RA; Temp 98.5F; Pain 8/10, hb Adult; hb
[2023-07-27 16:36] VITALS: BP 124/53; TEMP 98.5; O2SAT 100
== END ==
LOC: ER 13:51
DX: S82.002A Unspecified fracture of left patella, initial encounter for closed fracture (principal); Z94.0 Kidney transplant status
CPT/HCPCS: 99282